=== PATIENT | female | born 1965 | race Caucasian/White ===

== ENCOUNTER → 2019-02-11 | Outpatient (CLI) | payer MEDICAID, SELFPAY ==
[2019-02-11 09:41] LABS: ALB/GLOB Ratio 0.7 RATIO (0.9-2.4); AST(SGOT) 16 U/L (15-37); Alanine Aminotransfer ALT/SGPT 23 U/L (13-56); Alkaline Phosphatase 66 U/L (45-117); Anion Gap 5 (5-15); BUN 28 mg/dL (7-18); BUN/Creat Ratio 21.5 RATIO (10-20); Calcium,Total 8.5 mg/dL (8.5-10.1); Chloride 108 mmol/L (98-107); Cholesterol 128 mg/dL (200); EST Glomerular Filtration Rate 45 mL/min (>60); Est Glom Filt Rate - Afr Amer 55 mL/min (>60); Globulin 4.1 g/dL (2.2-4.2); Glucose 88 mg/dL (74-106); High Density Lipoprotein 52 mg/dL; Potassium 4.1 mmol/L (3.5-5.1); Protein, Total 7.1 g/dL (6.4-8.2); Sodium Level 142 mmol/L (136-145); Triglycerides 70 mg/dL; Very Low Density Lipoprotein 14 mg/dL (5-40)
== END | disposition home or self-care (01) ==
LOC: LAB 08:36
PROVIDERS: Family Provider Family Medicine; PCP Family Medicine; Referring Provider Family Medicine; Visit Provider Family Medicine
DX: I10 Essential (primary) hypertension (principal); E78.5 Hyperlipidemia, unspecified; Z51.81 Encounter for therapeutic drug level monitoring
CPT/HCPCS: 36415; 80053; 80061

== ENCOUNTER → 2020-07-13 | Outpatient (CLI) ==
[2020-07-13 08:26] LABS: Absolute Lymphocyte Count 2.05 X10^3/uL (0.83-4.51); Absolute Neutrophil Count 3.7 X10^3/uL (2.0-7.7); Basophil# 0.07 X10^3/uL; Basophil% 1.1 % (0-1); Eosinophil# 0.23 X10^3/uL; Eosinophils% 3.5 % (0-5); Hematocrit 44.4 % (37-47); Hemoglobin 13.5 g/dL (12.0-15.0); Lymphocyte # 2.05 X10^3/ul (4.0); Lymphocyte % 31.2 % (19-41); Mean Corp Hgb Conc 30.4 g/dL (32-36); Mean Corpuscular Hgb 26.9 pg (27.0-32.0); Mean Corpuscular Volume 88.4 fL (81-99); Mean Platelet Vol. 10.3 fl (6.2-12.0); Monocyte# 0.52 X10^3/uL; Monocyte% 7.9 % (0-10); NRBC Flagged by Analyzer 0 % (0-5); Neutrophil % 56.1 % (47-70); Platelet Count 283 K/mm3 (150-450); RBC Distribution Width CV 13.6 % (11.6-14.6); RBC Distribution Width SD 44.1 fl (35.1-43.9); Red Blood Count 5.02 M/mm3 (4.2-5.4); White Blood Count 6.6 K/mm3 (4.4-11.0)
[2020-07-13 08:54] LABS: ALB/GLOB Ratio 0.7 RATIO (0.9-2.4); AST(SGOT) 15 U/L (15-37); Alanine Aminotransfer ALT/SGPT 22 U/L (13-56); Albumin, Serum 3.2 g/dL (3.2-5.0); Alkaline Phosphatase 74 U/L (45-117); Anion Gap 1 (5-15); BUN 33 mg/dL (7-18); BUN/Creat Ratio 22.4 RATIO (10-20); Calcium,Total 8.6 mg/dL (8.5-10.1); Chloride 110 mmol/L (98-107); Cholesterol 144 mg/dL (200); Creatinine, Serum 1.47 mg/dL (0.55-1.02); EST Glomerular Filtration Rate 39 mL/min (>60); Est Glom Filt Rate - Afr Amer 47 mL/min (>60); Globulin 4.3 g/dL (2.2-4.2); Glucose 90 mg/dL (74-106); High Density Lipoprotein 55 mg/dL; Potassium 4.3 mmol/L (3.5-5.1); Protein, Total 7.5 g/dL (6.4-8.2); Sodium Level 141 mmol/L (136-145); Triglycerides 82 mg/dL; Very Low Density Lipoprotein 16 mg/dL (5-40)
== END | disposition home or self-care (01) ==
PROVIDERS: Family Medicine
DX: I10 Essential (primary) hypertension (principal); E78.5 Hyperlipidemia, unspecified; Z86.73 Personal history of transient ischemic attack (TIA), and cerebral infarction without residual deficits; Z51.81 Encounter for therapeutic drug level monitoring
CPT/HCPCS: 36415; 80053; 80061; 85025

== ENCOUNTER → 2021-01-18 09:01 | Outpatient (CLI) | payer MEDICAID, SELFPAY ==
[2021-01-18 10:16] LABS: Anion Gap 6 (5-15); BUN 27 mg/dL (7-18); BUN/Creat Ratio 19.3 RATIO (10-20); Calcium,Total 8.6 mg/dL (8.5-10.1); Chloride 105 mmol/L (98-107); EST Glomerular Filtration Rate 41 mL/min (>60); Est Glom Filt Rate - Afr Amer 50 mL/min (>60); Glucose 111 mg/dL (74-106); Potassium 3.9 mmol/L (3.5-5.1); Sodium Level 138 mmol/L (136-145)
== END ==
PROVIDERS: PCP Family Medicine; Referring Provider Family Medicine; Visit Provider Family Medicine
DX: N18.32 Chronic kidney disease, stage 3b (principal); Z51.81 Encounter for therapeutic drug level monitoring
CPT/HCPCS: 36415; 80048

== ENCOUNTER → 2021-07-19 09:34 | Outpatient (CLI) | payer MEDICAID, SELFPAY ==
[2021-07-19 09:56] LABS: Absolute Lymphocyte Count 1.47 X10^3/uL (0.83-4.51); Absolute Neutrophil Count 3.4 X10^3/uL (2.0-7.7); Basophil# 0.08 X10^3/uL; Basophil% 1.4 % (0-1); Eosinophil# 0.17 X10^3/uL; Hematocrit 44.3 % (37-47); Hemoglobin 14.5 g/dL (12.0-15.0); Lymphocyte # 1.47 X10^3/ul (0.83-4.51); Mean Corp Hgb Conc 32.7 g/dL (32-36); Mean Corpuscular Hgb 27.8 pg (27.0-32.0); Mean Platelet Vol. 9.3 fl (6.2-12.0); Monocyte# 0.49 X10^3/uL; Monocyte% 8.7 % (0-10); NRBC Flagged by Analyzer 0 % (0-5); Neutrophil # 3.43 X10^3/uL (2.7-7.7); Neutrophil % 60.7 % (47-70); Platelet Count 294 K/mm3 (150-450); RBC Distribution Width CV 13.6 % (11.6-14.6); RBC Distribution Width SD 42.4 fl (35.1-43.9); Red Blood Count 5.21 M/mm3 (4.2-5.4); White Blood Count 5.7 K/mm3 (4.4-11.0)
[2021-07-19 10:29] LABS: ALB/GLOB Ratio 0.7 RATIO (0.9-2.4); AST(SGOT) 16 U/L (15-37); Alanine Aminotransfer ALT/SGPT 22 U/L (13-56); Albumin, Serum 3.1 g/dL (3.2-5.0); Alkaline Phosphatase 86 U/L (45-117); Anion Gap 5 (5-15); BUN 26 mg/dL (7-18); BUN/Creat Ratio 19.1 RATIO (10-20); Calcium,Total 8.8 mg/dL (8.5-10.1); Chloride 104 mmol/L (98-107); Cholesterol 142 mg/dL (200); Creatinine, Serum 1.36 mg/dL (0.55-1.02); EST Glomerular Filtration Rate 43 mL/min (>60); Est Glom Filt Rate - Afr Amer 51 mL/min (>60); Globulin 4.6 g/dL (2.2-4.2); Glucose 93 mg/dL (74-106); High Density Lipoprotein 54 mg/dL; Protein, Total 7.7 g/dL (6.4-8.2); Sodium Level 139 mmol/L (136-145); Triglycerides 89 mg/dL; Very Low Density Lipoprotein 18 mg/dL (5-40)
== END ==
PROVIDERS: PCP Family Medicine; Referring Provider Family Medicine; Visit Provider Family Medicine
DX: Z00.00 Encounter for general adult medical examination without abnormal findings (principal); E78.5 Hyperlipidemia, unspecified; I12.9 Hypertensive chronic kidney disease with stage 1 through stage 4 chronic kidney disease, or unspecified chronic kidney disease; N18.32 Chronic kidney disease, stage 3b
CPT/HCPCS: 36415; 80053; 80061; 85025

== ENCOUNTER → 2023-01-09 | Outpatient (CLI) | payer MEDICAID, SELFPAY ==
[2023-01-09 09:49] LABS: Absolute Lymphocyte Count 1.47 X10^3/uL (0.83-4.51); Absolute Neutrophil Count 4.6 X10^3/uL (2.0-7.7); Basophil# 0.07 X10^3/uL; Eosinophil# 0.25 X10^3/uL; Eosinophils% 3.5 % (0-5); Hematocrit 42.3 % (37-47); Hemoglobin 13.3 g/dL (12.0-15.0); Lymphocyte # 1.47 X10^3/ul (0.83-4.51); Lymphocyte % 20.8 % (19-41); Mean Corp Hgb Conc 31.4 g/dL (32-36); Mean Corpuscular Hgb 27.4 pg (27.0-32.0); Mean Platelet Vol. 10.2 fl (6.2-12.0); Monocyte# 0.61 X10^3/uL; Monocyte% 8.6 % (0-10); NRBC Flagged by Analyzer 0 % (0-5); Neutrophil # 4.64 X10^3/uL (2.7-7.7); Neutrophil % 65.7 % (47-70); Platelet Count 317 K/mm3 (150-450); RBC Distribution Width CV 13.6 % (11.6-14.6); RBC Distribution Width SD 43.7 fl (35.1-43.9); Red Blood Count 4.86 M/mm3 (4.2-5.4); White Blood Count 7.1 K/mm3 (4.4-11.0)
[2023-01-09 10:24] LABS: ALB/GLOB Ratio 0.6 RATIO (0.9-2.4); AST(SGOT) 15 U/L (15-37); Alanine Aminotransfer ALT/SGPT 16 U/L (13-56); Albumin, Serum 2.9 g/dL (3.2-5.0); Alkaline Phosphatase 93 U/L (45-117); Anion Gap 4 (5-15); BUN 27 mg/dL (7-18); BUN/Creat Ratio 20.5 RATIO (10-20); Calcium,Total 8.8 mg/dL (8.5-10.1); Chloride 109 mmol/L (98-107); Cholesterol 138 mg/dL (200); Creatinine, Serum 1.32 mg/dL (0.55-1.02); EST Glomerular Filtration Rate 44 mL/min (>60); Est Glom Filt Rate - Afr Amer 53 mL/min (>60); Globulin 4.7 g/dL (2.2-4.2); Glucose 90 mg/dL (74-106); High Density Lipoprotein 51 mg/dL; Protein, Total 7.6 g/dL (6.4-8.2); Sodium Level 138 mmol/L (136-145); Triglycerides 81 mg/dL; Very Low Density Lipoprotein 16 mg/dL (5-40)
== END | disposition home or self-care (01) ==
LOC: LAB 08:53
PROVIDERS: PCP Family Medicine; Referring Provider Family Medicine; Visit Provider Family Medicine
DX: I10 Essential (primary) hypertension (principal); E78.5 Hyperlipidemia, unspecified; Z51.81 Encounter for therapeutic drug level monitoring
CPT/HCPCS: 36415; 80053; 80061; 85025

== ENCOUNTER → 2023-07-19 | Outpatient (CLI) | payer MEDICAID, SELFPAY ==
[2023-07-19 18:24] LABS: ALB/GLOB Ratio 0.7 RATIO (0.9-2.4); AST(SGOT) 22 U/L (15-37); Alanine Aminotransfer ALT/SGPT 22 U/L (13-56); Albumin, Serum 3.1 g/dL (3.2-5.0); Alkaline Phosphatase 88 U/L (45-117); Anion Gap -3 (5-15); BUN 24 mg/dL (7-18); BUN/Creat Ratio 20.2 RATIO (10-20); Calcium,Total 8.5 mg/dL (8.5-10.1); Chloride 110 mmol/L (98-107); Creatinine, Serum 1.19 mg/dL (0.55-1.02); EST Glomerular Filtration Rate 49 mL/min (>60); Est Glom Filt Rate - Afr Amer 60 mL/min (>60); Globulin 4.4 g/dL (2.2-4.2); Glucose 97 mg/dL (74-106); Potassium 4.4 mmol/L (3.5-5.1); Protein, Total 7.5 g/dL (6.4-8.2); Sodium Level 134 mmol/L (136-145)
== END | disposition home or self-care (01) ==
LOC: BFHLAB 14:21
PROVIDERS: PCP Family Medicine; Referring Provider Family Medicine; Visit Provider Family Medicine
DX: Z51.81 Encounter for therapeutic drug level monitoring (principal)
CPT/HCPCS: 36415; 80053

== ENCOUNTER → 2024-01-19 | Outpatient (CLI) | payer MEDICAID, SELFPAY ==
[2024-01-19 17:41] LABS: Absolute Lymphocyte Count 1.04 X10^3/uL (0.83-4.51); Absolute Neutrophil Count 8.2 X10^3/uL (2.0-7.7); Basophil# 0.05 X10^3/uL; Basophil% 0.5 % (0-1); Eosinophil# 0.09 X10^3/uL; Eosinophils% 0.9 % (0-5); Hematocrit 41.4 % (37-47); Lymphocyte # 1.04 X10^3/ul (0.83-4.51); Lymphocyte % 10.5 % (19-41); Mean Corp Hgb Conc 31.4 g/dL (32-36); Mean Corpuscular Hgb 26.4 pg (27.0-32.0); Mean Platelet Vol. 10.1 fl (6.2-12.0); Monocyte# 0.51 X10^3/uL; Monocyte% 5.1 % (0-10); NRBC Flagged by Analyzer 0 % (0-5); Neutrophil # 8.23 X10^3/uL (2.7-7.7); Neutrophil % 82.7 % (47-70); Platelet Count 461 K/mm3 (150-450); RBC Distribution Width CV 13.2 % (11.6-14.6); RBC Distribution Width SD 40.4 fl (35.1-43.9); Red Blood Count 4.93 M/mm3 (4.2-5.4)
[2024-01-19 18:15] LABS: ALB/GLOB Ratio 0.5 RATIO (0.9-2.4); AST(SGOT) 20 U/L (15-37); Alanine Aminotransfer ALT/SGPT 17 U/L (13-56); Albumin, Serum 2.6 g/dL (3.2-5.0); Alkaline Phosphatase 90 U/L (45-117); Anion Gap 5 (5-15); BUN 24 mg/dL (7-18); BUN/Creat Ratio 18.5 RATIO (10-20); Calcium,Total 8.7 mg/dL (8.5-10.1); Chloride 105 mmol/L (98-107); EST Glomerular Filtration Rate 44 mL/min (>60); Est Glom Filt Rate - Afr Amer 54 mL/min (>60); Globulin 5.4 g/dL (2.2-4.2); Glucose 102 mg/dL (74-106); Potassium 4.3 mmol/L (3.5-5.1); Sodium Level 136 mmol/L (136-145); Thyroid Stim Hormone (TSH) 1.71 uIU/mL (0.358-3.74)
== END | disposition home or self-care (01) ==
LOC: BFHLAB 14:22
PROVIDERS: PCP Family Medicine; Visit Provider Family Medicine
DX: Z00.00 Encounter for general adult medical examination without abnormal findings (principal); I10 Essential (primary) hypertension; Z51.81 Encounter for therapeutic drug level monitoring
CPT/HCPCS: 36415; 80053; 84443; 85025

== ENCOUNTER → 2025-01-22 | Outpatient (CLI) | payer MEDICAID, SELFPAY ==
[2025-01-22 18:06] LABS: Absolute Lymphocyte Count 1.58 X10^3/uL (0.83-4.51); Absolute Neutrophil Count 6.1 X10^3/uL (2.0-7.7); Basophil# 0.07 X10^3/uL; Basophil% 0.8 % (0-1); Eosinophil# 0.13 X10^3/uL; Eosinophils% 1.5 % (0-5); Hematocrit 25.7 % (37-47); Hemoglobin 7.6 g/dL (12.0-15.0); Lymphocyte # 1.58 X10^3/ul (0.83-4.51); Lymphocyte % 18.6 % (19-41); Mean Corp Hgb Conc 29.6 g/dL (32-36); Mean Corpuscular Hgb 21.2 pg (27.0-32.0); Mean Corpuscular Volume 71.8 fL (81-99); Mean Platelet Vol. 10.1 fl (6.2-12.0); Monocyte# 0.61 X10^3/uL; Monocyte% 7.2 % (0-10); NRBC Flagged by Analyzer 0 % (0-5); Neutrophil # 6.07 X10^3/uL (2.7-7.7); Neutrophil % 71.5 % (47-70); Platelet Count 577 K/mm3 (150-450); RBC Distribution Width CV 16.8 % (11.6-14.6); RBC Distribution Width SD 43.3 fl (35.1-43.9); Red Blood Count 3.58 M/mm3 (4.2-5.4); White Blood Count 8.5 K/mm3 (4.4-11.0)
[2025-01-22 18:58] LABS: ALB/GLOB Ratio 0.8 RATIO (0.9-2.4); AST(SGOT) 14 U/L (<=31); Alanine Aminotransfer ALT/SGPT 10 U/L (<=34); Albumin, Serum 3.4 g/dL (3.4-4.8); Alkaline Phosphatase 84 U/L (35-104); Anion Gap 12 (5-15); BUN 28 mg/dL (4-19); BUN/Creat Ratio 18.3 RATIO (10-20); Calcium,Total 8.7 mg/dL (7.6-11.0); Carbon Dioxide 24.5 mmol/L (21.0-32.0); Chloride 103 mmol/L (98-108); Creatinine, Serum 1.54 mg/dL (0.70-1.20); EST Glomerular Filtration Rate 38 (>60); Globulin 4.3 g/dL (2.2-4.2); Glucose 101 mg/dL (70-99); Potassium 4.1 mmol/L (3.3-5.1); Protein, Total 7.7 g/dL (5.9-8.4); Sodium Level 140 mmol/L (133-145); Total Bilirubin 0.49 mg/dL (0.00-1.30)
[2025-01-24 05:07] LABS: Prealbumin 14 mg/dL (10-36)
== END | disposition home or self-care (01) ==
LOC: BFHLAB 16:09
PROVIDERS: PCP Family Medicine; Visit Provider Family Medicine
DX: Z00.00 Encounter for general adult medical examination without abnormal findings (principal); L89.313 Pressure ulcer of right buttock, stage 3; I10 Essential (primary) hypertension; Z51.81 Encounter for therapeutic drug level monitoring
CPT/HCPCS: 36415; 80053; 84134; 84443; 85025

== ENCOUNTER 2025-05-21 09:17 | Inpatient (IN) | payer MEDICAID, SELFPAY ==
[2025-05-21] VITALS (63 sets, daily range): BP systolic 79–144; BP diastolic 43–121; PULSE 66–120; RESP 16–41; TEMP 36.2–37.1; O2SAT 16–100; BMI 30.7; BMI 29.5
--- NOTE | 2025-05-21 09:20 | RAD_ITS ---
PROCEDURE: CHEST 1 VIEW (PORTABLE) 05/21/2025 REASON FOR EXAM: RESPIRATORY DISTRESS/FAILURE TECHNIQUE: Frontal view of the chest. COMPARISON: None FINDINGS: Hardware: EKG leads overlie the chest Heart: The heart size is normal. Lungs: Lungs are underexpanded with chronic interstitial changes and superimposed opacifications in both lung cox likely pulmonary vascular congestion/CHF though a diffuse inflammatory process could have a similar appearance. No demonstrated effusions. Bones: Degenerative bony changes noted in the thoracic spine and shoulders Other: RAD/Chest 1 View (Portable) IMPRESSION: Underexpanded lungs with superimposed airspace opacifications in both lung fiel ds suggesting either pulmonary vascular congestion/CHF or a diffuse inflammatory process. Follow-up recommended to ens ure complete resolution Reading Location: [id number]
--- NOTE | 2025-05-21 09:21 | EKG12_ITS ---
Test Reason : SOB Blood Pressure : */* mmHG Vent. Rate : 104 BPM Atrial Rate : * BPM P-R Int : * ms QRS Dur : 74 ms QT Int : 326 ms P-R-T Axes : * 0 165 degrees QTcB Int : 428 ms Atrial fibrillation with rapid ventricular response ST & T wave abnormality, consider anterolateral ischemia Abnormal ECG Confirmed by RADHA GOMEZ ([id number]), telegraph editor ROB MUNIZ ([id number]) on 05/22/2025 1:07:33 PM Referred By: Confirmed By: RADHA GOMEZ
[2025-05-21 09:34] LABS: Allen Test Positive; Base Excess -7 mmol/L (-2 to +2); FI02 100.0; PO2 79 mmHG (75-100); SITE L Radial; SO2 97 % (95-99)
--- NOTE | 2025-05-21 09:34 | EDS_ITS ---
HPI History of Present Illness Chief Complaint: Alt LOC [facility] Medical History (Updated 05/21/25 @ 09:25 by Peyton Hedrick) Hypertension CVA (cerebral vascular accident) Allergy/AdvReac Type Severity Reaction Status Date / Time No Known Allergies Allergy Verified 05/21/25 09:27 Social History Smoking Status: Never smoker EXAM Physical Exam Const Vital Signs: 05/21/25 09:20 05/21/25 09:29 05/21/25 09:33 Temperature 97.1 F L Temperature Source Axillary Pulse Rate 101 H Respiratory Rate 34 H Respiratory Effort Labored Respiratory Pattern Tachypnea Blood Pressure 144/121 H Blood Pressure Mean 128 Pulse Ox 97 100 Oxygen Delivery Method Non-Rebreather Non-Rebreather Oxygen Flow Rate (L/min) 15 15 [facility] ABG Data Attestation: I personally reviewed and interpreted this ABG as follows: Interpretation: ABG reveals a alkalemia with a pCO2 of 22.8, pO2 of 79.4 on nonrebreather mask, bicarb of 16.4 with a base excess of -7.4. Saturation is 96.7%. This is a mixed acid-base picture. This reveals a metabolic acidosis as well as respiratory alkalosis and increased AA gradient. Discharge Plan Triage Chief Complaint: Alt LOC ED Provider: Dar Hunt Dx/Rx/DC Orders Primary Care Provider: Ann Marie Duran Referrals: Ann Marie Duran DO [Primary Care Provider] - Print Language: Danish
--- NOTE | 2025-05-21 09:34 | EX.ED.CRITCA ---
HPI History of Present Illness Chief Complaint: Alt LOC Detail of Chief Complaint: Altered level conscious initially called in as a stroke team, this was can Informant: family Onset/Context/Timing Onset: Today (Last known at her baseline last evening.) Context: Sudden Onset Timing: Continuous Quality: Respiratory distress, tachycardia, nonverbal Location: Presents from home by EMS. Blood sugar was 155. Current Severity: Severe Maximum Severity: Severe Worsened by: Suspect patient is profoundly anemic Relieved by: Nothing Narrative Narrative: Patient is a 59-year-old female. 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 She requires assistance to navigate and eat. According to the family member she does not have a history of atrial fibrillation. There is no other history available. Paramedics states her pulse ox was 84% on nonrebreather. When she arrived her pulse ox was 90%. She is in obvious respiratory distress. Unable to obtain history. Prior similar symptoms: No PFSH PFSH Medical History Hypertension CVA (cerebral vascular accident) Home Medications ?Medication ?Instructions ?Recorded ?Last Taken ?Type amlodipine 10 mg tablet 10 mg PO DAILY 05/21/25 05/20/25 History carvedilol 3.125 mg tablet 3.125 mg PO BID 05/21/25 05/20/25 History hydralazine 100 mg tablet 100 mg PO TID 05/21/25 05/20/25 History simvastatin 20 mg tablet 20 mg PO DAILY 05/21/25 05/20/25 History Allergy/AdvReac Type Severity Reaction Status Date / Time No Known Allergies Allergy Verified 05/21/25 09:27 Social History Smoking Status: Never smoker ROS ROS ED Review of Systems ROS Unobtainable: due to mental status EXAM Physical Exam Const Vital Signs: 05/21/25 09:20 05/21/25 09:23 05/21/25 09:29 Temperature 97.1 F L 97.4 F L Temperature Source Axillary Core Pulse Rate 101 H 120 H Respiratory Rate 34 H 41 H Respiratory Effort Respiratory Pattern Blood Pressure 144/121 H 96/70 Blood Pressure Mean 128 78 Pulse Ox 97 100 100 Oxygen Delivery Method Non-Rebreather Non-Rebreather Non-Rebreather Oxygen Flow Rate (L/min) 15 12 12 05/21/25 09:33 05/21/25 09:34 05/21/25 10:23 Temperature 97.9 F Temperature Source Oral Pulse Rate 107 H Respiratory Rate 27 H Respiratory Effort Labored Respiratory Pattern Tachypnea Blood Pressure 92/63 98/62 Blood Pressure Mean 72 74 Pulse Ox 90 Oxygen Delivery Method Non-Rebreather Oxygen Flow Rate (L/min) 12 05/21/25 10:30 05/21/25 10:55 Temperature 97.9 F Temperature Source Core Pulse Rate 104 H 104 H Respiratory Rate 37 H 27 H Respiratory Effort Respiratory Pattern Blood Pressure 98/72 98/62 Blood Pressure Mean 80 74 Pulse Ox 90 94 Oxygen Delivery Method Non-Rebreather Non-Rebreather Oxygen Flow Rate (L/min) 12 15 Positive well nourished, well developed and obese Constitutional Narrative: Patient is in obvious respiratory distress. She is very pale. General Appearance ED: well developed and pallor Nutritional Appearance: obese HEENT HEENT Narrative: On the nonrebreather Uday is no evidence of cyanosis. normocephalic and atraumatic Eyes PERRL and EOMs intact bilaterally General Eye ED: Yes pale conjunctiva; Negative for scleral icterus Neck full ROM, no lymphadenopathy, supple and No no JVD Neck Narrative: JVD at 60 degrees. Cardio no murmurs Cardio Narrative: Monitor appears to be irregular regular consistent with atrial fibrillation. Rate: tachycardic Rhythm: abnormal rhythm GI non-tender, non-distended and no masses Extremity Extremity Narrative: Patient has edema of her lower extremities. For member states she has been sitting a lot. Family ember informing that she lies flat in her bed. There is no respiratory distress i.e. orthopnea or and she has not had any PND. Neuro No oriented x3 Neuro Narrative: Patient's mental status is depressed. She makes nonverbal sounds to noxious stimuli. She withdraws on the left side. She has contracture on the right due to prior stroke. She opens her eyes to verbal. Sensorium / Orientation: Negative for alert Gait (Neuro): Negative for normal gait Psych Psych Narrative: Unable to determine Skin Skin Narrative: There is no erythema to creases of the palm. Her lips appear pale as well. General Skin Exam: pallor MDM MDM MDM Narrative Medical decision making narrative: Patient respiratory distress with A-fib but no history of apnea to rule out cardiac ischemia, CHF, pneumonia, suspect she is anemic and profoundly anemic. Will obtain appropriate baseline blood work. H&H assess white count as well as hemoglobin. Comprehensive metabolic panel assess for any endorgan dysfunction. Lactate because of concern for poor perfusion. Lab Data Attestation: I reviewed the patient's lab results. Lab results narrative: CBC is remarkable white count of 14.7 with H&H of 3.6 and 14.4 with an MCV of 64.6. Neda of this year her hemoglobin was 7.6. In December of last year hemoglobin was greater than 13. She had normal indices last year she was microcytic last hemoglobin assessed December 2024. Troponins elevated at 35. Competence of metabolic panel reveals a BUN of 56 with a creatinine of 23.5 with a BUN to creatinine ratio approximate 24-1. This is worse than baseline. Glucose is slightly elevated 120. CO2 is 14.9 with an anion gap of 21. Labs: Laboratory Results - last 24 hr 05/21/25 05/21/25 09:29 10:15 WBC 14.7 H RBC 2.23 L Hgb 3.6 L* Hct 14.4 L MCV 64.6 L MCH 16.1 L MCHC 25.0 L RDW Std Deviation 46.6 H RDW Coeff of Federico 21.1 H Plt Count 426 MPV 10.2 Immature Gran % (Auto) 0.900 Neut % (Auto) 88.4 H Lymph % (Auto) 6.5 L [place] % (Auto) 4.1 Eos % (Auto) 0.0 Baso % (Auto) 0.1 Absolute Neuts (auto) 13.0 H Absolute Lymphs (auto) 0.95 Nucleated RBC % 1.0 Differential Comment SCANNED Hypochromasia 3+ Anisocytosis 2+ Sodium 140 Potassium 5.8 H Chloride 105 Carbon Dioxide 14.9 L Anion Gap 21 H BUN 56 H Creatinine 2.35 H Estim Creat Clear Calc 26.86 L Est GFR (MDRD) Non-Af 23 L BUN/Creatinine Ratio 23.8 H Glucose 120 H Lactic Acid 6.7 H* Calcium 8.3 Total Bilirubin 1.05 AST 20 ALT 16 Alkaline Phosphatase 74 Troponin T High Sens 35 H Total Protein 6.7 Albumin 3.3 L Globulin 3.4 Albumin/Globulin Ratio 1.0 Blood Type A POSITIVE Antibody Screen NEGATIVE Crossmatch See Detail Lactate is elevated 6.7. Patient at this time has undifferentiated shock. Based on the medication list 1 would not expect any of the meds she is presently on causing the lactic acidosis. This is probably due to hypoxia. ABG Data Attestation: I personally reviewed and interpreted this ABG as follows: Interpretation: ABG reveals a alkalemia with a pCO2 of 22.8, pO2 of 79.4 on nonrebreather mask, bicarb of 16.4 with a base excess of -7.4. Saturation is 96.7%. This is a mixed acid-base picture. This reveals a metabolic acidosis as well as respiratory alkalosis and increased AA gradient. ABG results: ABG 05/21/25 09:30 Specimen Type ART Sample Site L Radial pH 7.46 H Bicarbonate Actual 16.4 L Total CO2 17 Base Excess -7 L O2 Saturation 97 O2 % 100.0 ABG pCO2 22.8 L ABG pO2 79 Alcon Test Positive O2 Delivery Device NRB Vent Mode Not entered Radiography Chest X-Ray - ED: 1 View and Read by ED Physician (Suboptimal single view film. This very volume is limited. Patient has fluffy infiltrates bilaterally which may represent CHF. This would not be unexpected since patient probably has high-output failure due to her anemia and A-fib with RVR.) Diagnostic Testing: Clinical Impression(s) from Imaging Studies Chest X-Ray 05/21/25 09:20 IMPRESSION: Underexpanded lungs with superimposed airspace opacifications in both lung cox suggesting either pulmonary vascular congestion/CHF or a diffuse inflammatory process. Follow-up recommended to ensure complete resolution Reading Location: [facility] EKG Initial EKG: Attestation: I personally reviewed and interpreted this EKG as follows: Interpretation: Atrial Fibrillation (Rate is 104. QRS duration 74 ms. QT duration 3 and 26 ms. [place] is normal. There is no ossific changes noted which may be due to ischemia versus artifact. Most likely this represents ischemia.) Prior: Changed Management Discussion w/another healthcare provider: Hospitalist (Case discussed with Dr. Matt Acevedo. Full admit ICU.) Treatment and Re-Evaluation Narrative: In light of patient's H&H and indices iron studies were obtained prior to transfusion. 4 units of blood was ordered. Repeat blood pressure at 0934 was noted to be 92/63. When I became aware of this fluid bolus was ordered. Since there is concern she may be in heart failure she received only a 500 cc bolus. In light of the chest x-ray read findings bolus was stopped after 300 cc. Patient will require Lasix after each unit of blood. She also needs a stat echo. The secondary was asked to page hospitalist for admission. Critical Care Time Critical Care Time: Yes Critical care time (excluding procedures): 30-74 minutes (32), Including time spent: (History, physical, documentation, independent or potation of laboratory results, images, treatment for undifferentiated shock, DNR discussion), Discussing w/Patient &/or Family/Boiler Attendant, Discussing w/Consultants and Arranging Admission or Transfer Discharge Plan Dx/Rx/DC Orders Clinical Impression: Shock, Signs and symptoms of anemia, Symptomatic anemia, New onset a-fib, Acidosis, lactic, Acute hyperkalemia, Microcytic anemia, Acute on chronic kidney failure, Elevated troponin, Myocardial ischemia determined by electrocardiography, Acute hypoxemic respiratory failure Disposition Disposition: Acute Care [facility]
[2025-05-21 09:46] LABS: Hematocrit 14.4 % (37-47); Immature Granulocytes Count 0.130 X10^3/uL (0.0-0.0); Mean Corp Hgb Conc 25.0 g/dL (32-36); Mean Corpuscular Volume 64.6 fL (81-99); Mean Platelet Vol. 10.2 fl (6.2-12.0); NRBC Flagged by Analyzer 1.0 % (0-5); POSITIVE COUNT YES; POSITIVE MORPHOLOGY YES; Platelet Count 426 K/mm3 (150-450); RBC Distribution Width CV 21.1 % (11.6-14.6); RBC Distribution Width SD 46.6 fl (35.1-43.9); Red Blood Count 2.23 M/mm3 (4.2-5.4); White Blood Count 14.7 K/mm3 (4.4-11.0)
[2025-05-21 09:48] LABS: Differential Indicated SCAN CRITERIA MET; Hemoglobin 3.6 g/dL (12.0-15.0)
[2025-05-21 10:08] LABS: Troponin T High Sensitivity 35 ng/L (<=14)
[2025-05-21 10:10] LABS: AST(SGOT) 20 U/L (<=31); Alanine Aminotransfer ALT/SGPT 16 U/L (<=34); Albumin, Serum 3.3 g/dL (3.4-4.8); Alkaline Phosphatase 74 U/L (35-104); Anion Gap 21 (5-15); BUN 56 mg/dL (4-19); BUN/Creat Ratio 23.8 RATIO (10-20); Calcium,Total 8.3 mg/dL (7.6-11.0); Carbon Dioxide 14.9 mmol/L (21.0-32.0); Chloride 105 mmol/L (98-108); Estimated Creatinine Clearance 26.86 ml/min (50-250); Globulin 3.4 g/dL (2.2-4.2); Glucose 120 mg/dL (70-99); Potassium 5.8 mmol/L (3.3-5.1)
[2025-05-21 10:19] LABS: Anisocytosis 2+; Differential Comment SCANNED; Hypochromasia 3+
[2025-05-21] MEDS: 0.9% Normal Saline (500mL Bag) 500 ML 1000 ML IV (10:31)
--- NOTE | 2025-05-21 10:51 | ECHOCS_ITS ---
Reason For Study Reason For Study: CHF Procedure This was a 2D Doppler, Color Flow transthoracic echocardiogram. The study was technically difficult. Contrast injection was performed. Exam performed portable in ED. Left Ventricle Normal LV size. Mild concentric left ventricular hypertrophy. Apical hypertrophic cardiomyopathy present. Left ventricular systolic function is normal. The left ventricular ejection fraction is 60 %. Right Ventricle Normal RV size. Normal systolic function. Atria The left atrium is moderately enlarged. Normal right atrium. Mitral Valve Normal mitral valve. Mild (1+) anteriorly directed mitral valve insufficiency. Tricuspid Valve Normal tricuspid valve. Aortic Valve Normal aortic valve. Trisinus/trileaflet aortic valve. Pulmonic Valve Normal pulmonic valve. Great Vessels Normal aortic root. The pulmonary artery is normal size. Inferior vena cava collapse with respiration. Pericardium/Pleural No pericardial effusion. Medication Diluted definity 2.5ml given slow IV push to enhance endocardial definition. MMode/2D Measurements & Calculations LVIDd: 4.7 cm IVSd: 1.2 cm LVOT diam: 2.0 cm LVIDs: 3.3 cm LVPWd: 1.4 cm FS: 29.5 % LVOT area: 3.1 cm2 LAV(MOD-sp2): 70.2 ml LA dimension(2D): 5.0 cm Doppler Measurements & Calculations Ao V2 max: 148.3 cm/sec LV V1 max: 131.9 cm/sec SV(LVOT): 84.6 ml Ao max P.9 mmHg LV V1 max P.1 mmHg Ao V2 mean: 100.9 cm/sec LV V1 mean P.5 mmHg Ao mean P.6 mmHg LV V1 mean: 86.0 cm/sec Ao V2 VTI: 24.1 cm LV V1 VTI: 27.5 cm AV (velocity ratio): 1.1 IFEANYI(I,D): 3.5 cm2 IFEANYI(V,D): 2.7 cm2 PA V2 max: 135.2 cm/sec PA V2 mean: 91.9 cm/sec ECHO/Echo Complete W/ Contrast Interpretation Summary Normal LV size. Mild concentric left ventricular hypertrophy. Left ventricular systolic function is normal. The left ventricular ejection fraction is 60 %. Apical hypertrophic cardiomyopathy present. Contrast injection was performed. Ordering Physician: Dar Hunt Referring Physician: SABRINA ROCHA Performed By: Lana Rajput RCS
[2025-05-21 11:49] LABS: Ferritin 53 ng/mL (22-378)
--- NOTE | 2025-05-21 12:03 | ED.RN ---
Per verbal order from Dr Kiki Michael to pause blood for echo to be able to use IV. Blood paused for approx 5 minutes and then resumed.
--- NOTE | 2025-05-21 12:04 | ED.RN ---
Report called to ICU.
[2025-05-21 12:17] LABS: Prothrombin Time (Protime)PT. 16.9 SECONDS (11.7-14.9)
[2025-05-21 12:25] LABS: Troponin T High Sens 2 HR 35 ng/L (<=14)
[2025-05-21 13:32] LABS: Reflex Lactate? Y
--- NOTE | 2025-05-21 13:34 | EX.PCM.CONCC ---
Assessment & Plan Assessment/Plan (1) Acute hypoxemic respiratory failure: (2) Elevated troponin: (3) Acute on chronic kidney failure: (4) New onset a-fib: (5) Shock: PLAN: Plan RECOMMENDATIONS: 1. Transfuse blood products in an attempt to establish a hemoglobin at or above 7 g/dL. 2. Obtain follow-up ABG in 1 hour. 3. Continue assist-control mode of mechanical ventilation. Wean FiO2 and PEEP as tolerated. 4. Initiate vasopressor support, if needed, to maintain mean arterial pressure at or above 65 mmHg. 5. Continue PPI therapy as ordered. 6. Await gastroenterology evaluation. 7. Start empiric antimicrobials and obtain sputum and blood cultures. IMPRESSIONS: 1. Undifferentiated shock Most likely secondary to hemorrhagic etiology in the setting of acute blood loss anemia. However, the patient does have a normal ejection fraction on echocardiogram. Therefore I cannot definitively say that the infiltrates noted on chest x-ray are related to pulmonary edema in the setting of CHF. Therefore, given the patient's current clinical status, I am going to start her empirically on antimicrobials and obtain sputum and blood cultures. The patient is going to be transfused packed red blood cells in an attempt to achieve a hemoglobin at or above 7 g/dL. PPI therapy will be continued, pending gastroenterology evaluation. If the patient remains hemodynamically unstable, Levophed will be initiated. 2. Acute on chronic kidney disease Most likely secondary to #1. Continue supportive care, including vasopressor support, if indicated. Will obtain renal ultrasound. Avoid nephrotoxic medications. 3. Acute blood loss anemia Gastroenterology consultation is pending. Continue transfusion of blood products to achieve and maintain a hemoglobin at or above 7 g/dL. Continue PPI therapy as ordered. 4. Troponin elevation/atrial fibrillation Secondary to demand ischemia in the setting of #1. Echocardiogram revealed intact, normal systolic function. Given that the patient's rate is currently controlled, we will plan to continue supportive care. 5. History of CVA with residual deficits/hypertension/hyperlipidemia Complicates care, management, recovery and prognosis. Continue supportive measures as noted above. Continue to hold home antihypertensives. TIME: 38 minutes of critical care time, independent of procedures, was spent addressing the patient's undifferentiated shock, acute on chronic kidney disease, acute blood loss anemia, review of all data and collaboration with the care team. HPI Consult Data Date of Consult: 05/21/25 HPI Narrative Reason for Consultation: Acute blood loss anemia, shock HPI Narrative: The patient is a 59-year-old female, with a history as outlined below, who presented to the emergency department on May 21 with altered mental status and hypoxemia. The patient does have a prior history of CVA with residual right-sided deficits and dysarthric speech, making it difficulty to ascertain any additional history. The patient also appears to have a history of hypertension and hyperlipidemia, but is not currently on any form of systemic anticoagulation at her baseline. On presentation to the emergency department, the patient was documented to be afebrile but was mildly tachycardic and tachypneic. The patient had borderline hemodynamics at presentation and was hypoxemic requiring a nonrebreather mask. Laboratory evaluation was notable for a white blood cell count of 15,000 with a hemoglobin of 3.6 g/dL and platelet count of 426,000. Coagulation profile revealed an INR of 1.3. Chemistry profile was notable for a potassium of 5.8, bicarbonate of 15, anion gap of 21 and creatinine of 2.35. Lactate was elevated at 6.7. Troponin was increased at 35. Chest x-ray was a poor quality with underexpanded lung cox and findings concerning for pulmonary vascular congestion. The patient did receive a small amount of IV fluid resuscitation and was ultimately ordered to receive transfusion of blood products. Gastroenterology was notified. The patient was transferred to the medical intensive care unit for further management. On arrival to the ICU, the patient was notably tachypneic and in distress from a respiratory standpoint. In addition, her hemodynamic status was quite tenuous. The patient was receiving packed red blood cells. In light of the patient's significant tachypnea and increased work of breathing in the setting of an anion gap metabolic acidosis, my concern was that the patient would be unable to compensate for her metabolic derangements. Therefore, following discussion with the patient's family, the decision was made to proceed with intubation. In light of her tenuous hemodynamic status, a central venous catheter was placed. Order for Levophed was initiated. [facility] Medical History Hypertension CVA (cerebral vascular accident) Home Medications ?Medication ?Instructions ?Recorded ?Last Taken ?Type amlodipine 10 mg tablet 10 mg PO DAILY 05/21/25 05/20/25 History carvedilol 3.125 mg tablet 3.125 mg PO BID 05/21/25 05/20/25 History hydralazine 100 mg tablet 100 mg PO TID 05/21/25 05/20/25 History simvastatin 20 mg tablet 20 mg PO DAILY 05/21/25 05/20/25 History Allergy/AdvReac Type Severity Reaction Status Date / Time No Known Allergies Allergy Verified 05/21/25 09:27 Family History unable to obtain Surgical History unable to obtain Social History Smoking Status: Never smoker ROS Review of Systems ROS Unobtainable: due to endotracheal tube Physical Exam Const Constitutional Narrative: The patient is now intubated and mechanically ventilated. General Appearance: ill appearing and patient mechanically ventilated HEENT normocephalic and head/scalp atraumatic Mouth: endotracheal tube in place and OG tube in place Eyes PERRL, EOMs intact bilaterally and conjunctivae normal Neck supple General: trachea midline Chest inspection of chest normal Resp Effort and Inspection: tachypneic and labored Auscultation: diminished lung sounds Cardio S1 normal heart sound and S2 normal heart sound Rate: tachycardic Rhythm: abnormal rhythm GI normal to inspection, nondistended, normoactive bowel sounds Extremity General Extremity: edema; Negative for clubbing Skin no rashes or lesions noted Neuro Neuro Narrative: Contracted right-sided extremities. Dysarthric speech. Lab / Micro Data 05/21/25 13:55 05/21/25 09:29 Labs: Laboratory Results - last 24 hr 05/21/25 09:29: WBC 14.7 H, RBC 2.23 L, Hgb 3.6 L*, Hct 14.4 L, MCV 64.6 L, MCH 16.1 L, MCHC 25.0 L, RDW Std Deviation 46.6 H, RDW Coeff of Federico 21.1 H, Plt Count 426, MPV 10.2, Immature Gran % (Auto) 0.900, Neut % (Auto) 88.4 H, Lymph % (Auto) 6.5 L, [place] % (Auto) 4.1, Eos % (Auto) 0.0, Baso % (Auto) 0.1, Absolute Neuts (auto) 13.0 H, Absolute Lymphs (auto) 0.95, Nucleated RBC % 1.0, Differential Comment SCANNED, Hypochromasia 3+, Anisocytosis 2+, Sodium 140, Potassium 5.8 H, Chloride 105, Carbon Dioxide 14.9 L, Anion Gap 21 H, BUN 56 H, Creatinine 2.35 H, Estim Creat Clear Calc 26.86 L, Est GFR (MDRD) Non-Af 23 L, BUN/Creatinine Ratio 23.8 H, Glucose 120 H, Lactic Acid 6.7 H*, Calcium 8.3, Total Bilirubin 1.05, AST 20, ALT 16, Alkaline Phosphatase 74, Troponin T High Sens 35 H, Total Protein 6.7, Albumin 3.3 L, Globulin 3.4, Albumin/Globulin Ratio 1.0 05/21/25 10:15: Ferritin 53, Blood Type A POSITIVE, Antibody Screen NEGATIVE, Crossmatch See Detail 05/21/25 11:45: Troponin T Hi Sens 2 Hr 35 H 05/21/25 11:55: PT 16.9 H, INR 1.3 ABG Data ABG results: ABG 05/21/25 09:30 Specimen Type ART Sample Site L Radial pH 7.46 H Bicarbonate Actual 16.4 L Total CO2 17 Base Excess -7 L O2 Saturation 97 O2 % 100.0 ABG pCO2 22.8 L ABG pO2 79 Alcon Test Positive O2 Delivery Device NRB Vent Mode Not entered Imaging Radiology Impression Chest X-Ray 05/21/25 09:20 IMPRESSION: Underexpanded lungs with superimposed airspace opacifications in both lung cox suggesting either pulmonary vascular congestion/CHF or a diffuse inflammatory process. Follow-up recommended to ensure complete resolution Reading Location: [id number] Echocardiogram 05/21/25 10:51 Interpretation Summary Normal LV size. Mild concentric left ventricular hypertrophy. Left ventricular systolic function is normal. The left ventricular ejection fraction is 60 %. Apical hypertrophic cardiomyopathy present. Contrast injection was performed. Ordering Physician: Dar Hunt Referring Physician: SABRINA ROCHA Performed By: Lana Rajput RCS Sepsis Attestation Sepsis Alert: Yes Sepsis Attestation: Agree w/Sepsis Date exam was performed: 05/21/25 Time exam was performed: 14:55 Possible Source of Sepsis: Pulmonary Sepsis Organ Dysfunction Criteria Present: SBP < 90 mmHg or MAP < 65 mmHg, Acute Respiratory Failure (New need for BiPAP/CPAP or MV), Creatinine > 2.0 mg/dL and Lactic Acid > 2 mmol/L Fluid Resuscitation Fluid resuscitation indicated?: Yes Fluid Resuscitation ordered: Lesser volume fluid bolus ordered Amount of fluid ordered: 1,000 Reason for lesser fluid bolus:: Concern for fluid overload Sepsis Note Date exam was performed: 05/21/25 Time exam was performed: 14:56 Sepsis Attestation: Sepsis re-evaluation was performed Response to fluids: Vasopressors started Charges/Coding Procedures Hospitalists Procedures: 45947 Critical Care 1st Hr
[2025-05-21] MEDS: Midazolam 2 MG/2 ML Syringe IV ×2 (13:51)
[2025-05-21] MEDS: fentaNYL drip 100 ML 5 MCG CONT INF (14:00)
--- NOTE | 2025-05-21 14:11 | RAD_ITS ---
PROCEDURE: CHEST 1 VIEW (PORTABLE) 05/21/2025 REASON FOR EXAM: POST INTUBATION TECHNIQUE: Frontal view of the chest. COMPARISON: AP chest of 05/21/2025 at approximately 0945 hours. RAD/Chest 1 View (Portable) IMPRESSION: Bilateral pulmonary airspace disease is again seen, with some areas improved in some areas worsened since the prior study, overall of similar severity, however. No pleural effusion or pneumothorax is seen. Interval placement of nasogastric tube, seen coursing of the stomach, endotrach eal tube, with tip proximally 1 cm above the iraida, and right jugular central venous catheter, with tip projecting over the distal SVC. The cardiomediastinal silhouette is stable, without evidence of cardiomegaly. Reading Location: [place] [id number]
--- NOTE | 2025-05-21 14:16 | PCM.OP.PRO2 ---
Procedures Hospitalists Procedures: [id number] Insert Emergency Airway Non-invasive Procedural Procedure Information Date of Procedure: 05/21/25 Description of procedure: Intubation Indication: Respiratory Failure Consent was obtained from: Emergent The patient was placed in the appropriate sniffing position. Preoxygenated sedation via BVM was provided for a minimum of 3 minutes. The patient had continuous cardiac as well as pulse oximetry monitoring during the procedure. Procedure sedation was provided by the administration of 4 mg of Versed and 20 mg of Etomidate. Direct laryngoscopy was then performed using a number 3 MAC blade, which revealed a grade 1 view. A 7.5 mm endotracheal tube was visualized advancing between the cords to the level of 22 cm at the lip. The stylette was then removed and discarded. Tube placement was confirmed by fogging in the tube along with equal and bilateral breath sounds. Colorimetric change was visualized on the CO2 meter. The cuff was then inflated and the tube secured using a commercially available device. A good pulse oximetry waveform was seen on the monitor throughout the procedure. A portable chest x-ray has been ordered to confirm appropriate placement. The patient tolerated the procedure well.
--- NOTE | 2025-05-21 14:19 | PCM.OP.PRO2 ---
Procedures Hospitalists Procedures: [id number] Insert Non-tunnel CV Cath Non-invasive Procedural Procedure Information Date of Procedure: 05/21/25 Description of procedure: Central Venous Catheter Indication: Hypotension Consent was obtained from: Mother A time-out was completed verifying correct patient, procedure, site, positioning, and special equipment if applicable. The patient was placed in a dependent position appropriate for central line placement based on the vein to be cannulated. The patient's right neck was prepped and draped in a sterile fashion. 1% lidocaine was used to anesthetize the surrounding skin area. A triple-lumen catheter was introduced into the right IJ using the Seldinger technique and under ultrasound guidance. The catheter was threaded smoothly over the guidewire and appropriate blood return was obtained. Each lumen of the catheter was evacuated of air and flushed with sterile saline. The catheter was then sutured in place to the skin and a sterile dressing applied. Chest x-ray to confirm appropriate positioning is pending. ULTRASOUND GUIDANCE STATEMENT (Vascular Access): I performed ultrasound image acquisition and interpretation for needle placement during the procedure. The vessel was identified and found to be free of thrombosis by compression technique. A safe point of entry was marked at the skin in an angle for axis was determined. The needle was guided by obtaining free-flowing fluid and by real-time visualization.
[2025-05-21 14:22] LABS: Hematocrit 16.0 % (37-47); Hemoglobin 4.4 g/dL (12.0-15.0); POSITIVE COUNT YES
--- NOTE | 2025-05-21 14:48 | CPS ---
Tube placement confirmed by X-ray. Pulled back to 22 from 24..
[2025-05-21 14:49] LABS: Troponin T High Sens 4 HR 32 ng/L (<=14)
--- NOTE | 2025-05-21 14:49 | US_ITS ---
PROCEDURE: KIDNEY AND BLADDER 05/21/2025 REASON FOR EXAM: RAMEZ TECHNIQUE: KIDNEY AND BLADDER COMPARISON: none FINDINGS: Right kidney measures 12 cm and left kidney measures 8.9 cm. Normal echotexture of bilateral kidneys. No hydronephrosis. 4 mm nonobstructive calculus within the left kidney. 3.1 x 3.5 cm and 3.4 x 2.9 cm cysts within the right kidney and 1.9 x 1.6 cm cyst within the left kidney. Urinary bladder contains a june catheter. US/Kidney and Bladder IMPRESSION: No hydronephrosis. 4 mm nonobstructive calculus within the left kidney. 3.1 x 3.5 cm and 3.4 x 2.9 cm cysts within the right kidney and 1.9 x 1.6 cm cyst within the left kidney. Reading Location: [facility]
[2025-05-21 14:56] LABS: Pro- Brain NATRIURETIC PEPTIDE 16388 pg/mL (<=900); Procalcitonin 0.51 ng/mL (<=0.10)
[2025-05-21] MEDS: Norepinephrine 8 MG in 0.9% Normal Saline (250mL Bag) 242 ML 9.4 MG CONT INF (15:00)
[2025-05-21] MEDS: Pantoprazole Sodium 40 MG in 0.9% Normal Saline (100mL MB+) 100 ML 300 MG IV ×2 (15:20→21:07)
[2025-05-21] MEDS: Vancomycin HCl 2,000 MG in 0.9% Normal Saline (500mL Bag) 500 ML 250 MG IV (15:24)
--- NOTE | 2025-05-21 15:26 | PCM.HP.STD ---
HPI - General General Date of Admission: 05/21/25 Date of Service: 05/21/25 Chief Complaint: altered level of consciousness. HPI Narrative NANCY DELACRUZ, is a 59 F who presents with change in mental status. This is a 59-year-old female with history of stroke presents with confusion. She presented to the emergency room and was noted to be hypotensive. She was noted to have a hemoglobin of 3.6, lactic acid of 6.7. Patient is a poor historian at this time so history is obtained through the emergency room physician as well as the patient's brother. No bleeding that he is aware of but there was concern that she was having menstrual blood in the toilet week or 2 ago. Patient a chest x-ray was concern for pulmonary vascular congestion so with the patient is lactic acid patient did not receive 30 cc/kg of IV fluid due to worsening heart failure. Patient was noted to be in atrial fibrillation with RVR. Patient requires assistance and get has around a clock care at home by family members. Patient has right-sided weakness due to prior history of stroke. Patient was subsequently admitted to the intensive care unit and patient was seen by critical care medicine and subsequently was intubated and had a central venous catheter placed. [facility] Medical History Hypertension CVA (cerebral vascular accident) Home Medications ?Medication ?Instructions ?Recorded ?Last Taken ?Type amlodipine 10 mg tablet 10 mg PO DAILY 05/21/25 05/20/25 History carvedilol 3.125 mg tablet 3.125 mg PO BID 05/21/25 05/20/25 History hydralazine 100 mg tablet 100 mg PO TID 05/21/25 05/20/25 History simvastatin 20 mg tablet 20 mg PO DAILY 05/21/25 05/20/25 History Allergy/AdvReac Type Severity Reaction Status Date / Time No Known Allergies Allergy Verified 05/21/25 09:27 Family History unable to obtain unable to obtain Surgical History unable to obtain unable to obtain Social History Smoking Status: Never smoker ROS ROS Narrative Unable to obtain due to confusion. Vital Signs Vital Signs Vital Signs: 05/21/25 09:20 05/21/25 09:23 05/21/25 09:29 Temperature 36.2 C L 36.3 C L Temperature Source Axillary Core Pulse Rate 101 H 120 H Respiratory Rate 34 H 41 H Respiratory Effort Respiratory Pattern Blood Pressure 144/121 H 96/70 Blood Pressure Mean 128 78 Blood Pressure Source Blood Pressure Position Blood Pressure Location Pulse Ox 97 100 100 Oxygen Delivery Method Non-Rebreather Non-Rebreather Non-Rebreather Oxygen Flow Rate (L/min) 15 12 12 Fraction of Inspired Oxygen (FIO2) 05/21/25 09:33 05/21/25 09:34 05/21/25 10:23 Temperature 36.6 C Temperature Source Oral Pulse Rate 107 H Respiratory Rate 27 H Respiratory Effort Labored Respiratory Pattern Tachypnea Blood Pressure 92/63 98/62 Blood Pressure Mean 72 74 Blood Pressure Source Blood Pressure Position Blood Pressure Location Pulse Ox 90 Oxygen Delivery Method Non-Rebreather Oxygen Flow Rate (L/min) 12 Fraction of Inspired Oxygen (FIO2) 05/21/25 10:30 05/21/25 10:55 05/21/25 11:00 Temperature 36.6 C Temperature Source Core Pulse Rate 104 H 104 H 105 H Respiratory Rate 37 H 27 H 25 H Respiratory Effort Respiratory Pattern Blood Pressure 98/72 98/62 92/63 Blood Pressure Mean 80 74 72 Blood Pressure Source Blood Pressure Position Blood Pressure Location Pulse Ox 90 94 93 Oxygen Delivery Method Non-Rebreather Non-Rebreather Non-Rebreather Oxygen Flow Rate (L/min) 12 15 15 Fraction of Inspired Oxygen (FIO2) 05/21/25 11:27 05/21/25 11:30 05/21/25 11:35 Temperature 36.6 C 36.5 C L Temperature Source Core Pulse Rate 105 H 107 H 106 H Respiratory Rate 25 H 24 H 23 H Respiratory Effort Respiratory Pattern Blood Pressure 92/63 95/48 L 95/48 L Blood Pressure Mean 72 63 63 Blood Pressure Source Monitor Blood Pressure Position Semi-Fowlers Blood Pressure Location Left Arm Pulse Ox 93 94 95 Oxygen Delivery Method Non-Rebreather Non-Rebreather Oxygen Flow Rate (L/min) 15 15 Fraction of Inspired Oxygen (FIO2) 05/21/25 11:50 05/21/25 12:00 05/21/25 12:50 Temperature 36.6 C 36.7 C Temperature Source Core Core Pulse Rate 101 H 103 H 100 Respiratory Rate 34 H 37 H Respiratory Effort Respiratory Pattern Blood Pressure 104/61 93/58 L 86/56 L Blood Pressure Mean 75 69 66 Blood Pressure Source Monitor Monitor Blood Pressure Position Semi-Fowlers Semi-Fowlers Blood Pressure Location Left Arm Right Forearm Pulse Ox 95 95 95 Oxygen Delivery Method Non-Rebreather Non-Rebreather Non-Rebreather Oxygen Flow Rate (L/min) 15 15 Fraction of Inspired Oxygen (FIO2) 100 05/21/25 13:50 05/21/25 13:55 05/21/25 14:05 Temperature 36.7 C Temperature Source Core Pulse Rate 93 67 Respiratory Rate 30 H 24 H Respiratory Effort Respiratory Pattern Tachypnea Blood Pressure 98/59 L Blood Pressure Mean 72 Blood Pressure Source Monitor Blood Pressure Position Supine Blood Pressure Location Right Forearm Pulse Ox 93 100 Oxygen Delivery Method Ambu-Bag Oxygen Flow Rate (L/min) Fraction of Inspired Oxygen (FIO2) 100 100 60 05/21/25 14:50 05/21/25 15:00 05/21/25 15:05 Temperature 36.6 C 36.7 C 36.7 C Temperature Source Core Core Core Pulse Rate 80 80 78 Respiratory Rate 22 H 20 H 26 H Respiratory Effort Respiratory Pattern Blood Pressure 84/64 L 79/43 L 85/61 L Blood Pressure Mean 70 55 69 Blood Pressure Source Monitor Monitor Monitor Blood Pressure Position Semi-Fowlers Semi-Fowlers Semi-Fowlers Blood Pressure Location Right Forearm Right Forearm Right Forearm Pulse Ox 100 100 100 Oxygen Delivery Method Mechanical Ventilator Mechanical Ventilator Mechanical Ventilator Oxygen Flow Rate (L/min) Fraction of Inspired Oxygen (FIO2) 60 60 60 Weight Weight: 80.5 kg Body Mass Index (BMI) 29.5 Physical Exam Narrative Patient seen and examined prior to intubation Pocus: IVC was visualized and dilated nonclassical with respirations. B-lines noted posteriorly, laterally as well as anteriorly in the lung cox. Const alert HEENT normocephalic and head/scalp atraumatic Neck no lymphadenopathy Resp Resp Narrative: Bibasilar crackles Cardio Cardio Narrative: Irregularly irregular GI normal to inspection, nondistended, normoactive bowel sounds, soft to palpation, non-tender and non-distended Extremity Extremity Narrative: Bilateral lower extremity edema 2+ edema. Neuro Sensorium / Orientation: awake, oriented to person and oriented to place; Negative for oriented to time Results Lab / Micro Data Attestation: I reviewed the patient's lab results. 05/21/25 13:55 05/21/25 09:29 Labs: Laboratory Results - last 24 hr 05/21/25 09:29: WBC 14.7 H, RBC 2.23 L, Hgb 3.6 L*, Hct 14.4 L, MCV 64.6 L, MCH 16.1 L, MCHC 25.0 L, RDW Std Deviation 46.6 H, RDW Coeff of Federico 21.1 H, Plt Count 426, MPV 10.2, Immature Gran % (Auto) 0.900, Neut % (Auto) 88.4 H, Lymph % (Auto) 6.5 L, [place] % (Auto) 4.1, Eos % (Auto) 0.0, Baso % (Auto) 0.1, Absolute Neuts (auto) 13.0 H, Absolute Lymphs (auto) 0.95, Nucleated RBC % 1.0, Differential Comment SCANNED, Hypochromasia 3+, Anisocytosis 2+, Sodium 140, Potassium 5.8 H, Chloride 105, Carbon Dioxide 14.9 L, Anion Gap 21 H, BUN 56 H, Creatinine 2.35 H, Estim Creat Clear Calc 26.86 L, Est GFR (MDRD) Non-Af 23 L, BUN/Creatinine Ratio 23.8 H, Glucose 120 H, Lactic Acid 6.7 H*, Calcium 8.3, Total Bilirubin 1.05, AST 20, ALT 16, Alkaline Phosphatase 74, Troponin T High Sens 35 H, Total Protein 6.7, Albumin 3.3 L, Globulin 3.4, Albumin/Globulin Ratio 1.0 05/21/25 10:15: Ferritin 53, Blood Type A POSITIVE, Antibody Screen NEGATIVE, Crossmatch See Detail 05/21/25 11:45: Troponin T Hi Sens 2 Hr 35 H 05/21/25 11:55: PT 16.9 H, INR 1.3 05/21/25 13:55: Hgb 4.4 L*, Hct 16.0 L, Lactic Acid 2.9 H*, Troponin T Hi Sens 4Hr 32 H, [place] [address] H, Procalcitonin 0.51 H ABG Data ABG results: ABG 05/21/25 09:30 Specimen Type ART Sample Site L Radial pH 7.46 H Bicarbonate Actual 16.4 L Total CO2 17 Base Excess -7 L O2 Saturation 97 O2 % 100.0 ABG pCO2 22.8 L ABG pO2 79 Alcon Test Positive O2 Delivery Device NRB Vent Mode Not entered EKG Initial EKG: Attestation: I personally reviewed and interpreted this EKG as follows: Prior EKG tracings: available for review EKG Rhythm Intrepretation: Atrial Fibrillation Imaging Radiology Impression Chest X-Ray 05/21/25 09:20 IMPRESSION: Underexpanded lungs with superimposed airspace opacifications in both lung cox suggesting either pulmonary vascular congestion/CHF or a diffuse inflammatory process. Follow-up recommended to ensure complete resolution Reading Location: [id number] Echocardiogram 05/21/25 10:51 Interpretation Summary Normal LV size. Mild concentric left ventricular hypertrophy. Left ventricular systolic function is normal. The left ventricular ejection fraction is 60 %. Apical hypertrophic cardiomyopathy present. Contrast injection was performed. Ordering Physician: Dar Hunt Referring Physician: SABRINA ROCHA Performed By: Lana Rajput RCS Chest X-Ray 05/21/25 14:11 IMPRESSION: Bilateral pulmonary airspace disease is again seen, with some areas improved in some areas worsened since the prior study, overall of similar severity, however. No pleural effusion or pneumothorax is seen. Interval placement of nasogastric tube, seen coursing of the stomach, endotracheal tube, with tip proximally 1 cm above the iraida, and right jugular central venous catheter, with tip projecting over the distal SVC. The cardiomediastinal silhouette is stable, without evidence of cardiomegaly. Reading Location: [facility] Assessment & Plan Assessment/Plan (1) Shock: PLAN: Undifferentiated at this time. Concern for hemorrhagic plus minus septic shock. Within normal EF cardiogenic ruled out. Right IJ triple-lumen catheter placed. Patient started on norepinephrine. Not a candidate for 30 cc/kg of IVF given CHF. Follow up cultures. Follow-up urinalysis Started on empiric antibiotics (2) Acute hypoxemic respiratory failure: PLAN: CHF versus pneumonia Intubated due to concern for on pending airway collapse given her numerous severe medical issues that are coalescing at present. On empiric antibiotic Unable to diurese at this time given shock. (3) (HFpEF) heart failure with preserved ejection fraction: PLAN: Acute EF noted as normal. Grossly normal EF on POCUS exam. Cannot rule out high-output failure due to severe anemia. (4) Atrial fibrillation with RVR: PLAN: New diagnosis but unclear how new this processes. Unable to anticoagulate due to anemia. May be exacerbated due to the severity of her underlying illnesses. (5) Acute blood loss anemia: PLAN: Unclear how long the patient has been anemic. Currently her admission hemoglobin was 3.6. Ordered 4 units packed red blood cells. GI consult for evaluation. Check anemia studies (6) Elevated troponin: PLAN: Mild elevation due to atrial fibrillation, respiratory failure, anemia. Demand ischemia from above. No gross wall abnormality on echo PLAN: Plan History of stroke: Patient not on any antiplatelet or any anticoagulation medications. Does have right-sided hemiparesis Hypertension: Holding off on amlodipine, carvedilol and hydralazine given shock. VTE prophylaxis with SCDs CODE STATUS: Addressed with the patient and her family. Patient is full code. DW patient's brother at bedside. Charges/Coding Visit Charges Inpatient E&M: 41537 Init Hosp L3
--- NOTE | 2025-05-21 15:35 | PCM.RX.CS ---
Consult Antibiotic Management Pharmacy has been consulted to manage selected antibiotic: Vancomycin Type of Intervention Type of Consult: New start Suspected Infection Suspected Infection: Pneumonia Prior Doses of Antibiotics Prior Doses of Antibiotics Received/Current Regimen: 05/21/25 @ 1524 Vancomycin 2000mg x1 Labs Labs: Sodium 140 mmol/L (133-145) 05/21/25 09:29 Potassium 5.8 mmol/L (3.3-5.1) H 05/21/25 09:29 Chloride 105 mmol/L (98-108) 05/21/25 09:29 Carbon Dioxide 14.9 mmol/L (21.0-32.0) L 05/21/25 09:29 Anion Gap 21 (5-15) H 05/21/25 09:29 BUN 56 mg/dL (4-19) H 05/21/25 09:29 Creatinine 2.35 mg/dL (0.70-1.20) H 05/21/25 09:29 Est GFR (MDRD) Non-Af 23 (>60) L 05/21/25 09:29 BUN/Creatinine Ratio 23.8 RATIO (10-20) H 05/21/25 09:29 Glucose 120 mg/dL (70-99) H 05/21/25 09:29 Dosing Weight Weight used for dosin kg Estimated Creatinine Clearance Estimated Creatinine Clearance: 26 Goal Trough Goal Trough: 15-20 mcg/mL Pharmacy Plan for Drug Dosing Pharmacy Plan for Drug Dosing: Vancomycin 1000mg every 24 hours Pharmacy Service will continue to monitor and adjust dosing as required. Follow-Up Labs Follow-Up Labs: Trough: Vancomycin Date/Time Labs Ordered Labs to be done on [date and time ordered]: 05/23/25 @ 1500
[2025-05-21 15:36] LABS: FI02 60.0; PEEP 5; RR 16; SITE L Radial; VBG BASE EXCESS -4 mmol/L (-1.0-3.5); VBG PO2 23 mmHg (25-40); VBG SO2 42 % (50-70); VBG TCO2 21 mmol/L (23-33)
[2025-05-21] MEDS: Propofol 10MG/Ml 1,000 MG/100 ML Bottle 4.8 MG CONT INF (15:39)
[2025-05-21] MEDS: Piperacil/Tazobactam 3.375 GM in 0.9% Normal Saline (50mL MB+) 50 ML IV ×2 (15:59→21:41)
[2025-05-21 17:51] LABS: Mucous, Urine 0 SEEN /hpf (<or=2+)
[2025-05-21 18:07] LABS: CPK Total, Creatine Kinase 97 U/L (24-195)
[2025-05-21 18:12] LABS: Color, Urine Yellow (Yellow); Glucose, Dipstick Normal (Normal); Ketone-Dipstick Negative (Negative); Leukocyte Esterase-Dipstick 500 /ul (Negative); Nitrite-Dipstick Negative (Negative); Occult Blood-Urine 150 /ul (Negative); Protein-Dipstick 100 mg/dl (Negative); Specific Gravity, Urine 1.020 (1.002-1.030); Urine Bilirubin Dipstick Negative (Negative)
--- NOTE | 2025-05-21 18:15 | CON.PCM.GI_ITS ---
HPI Consult Data Date of Consult: 05/21/25 HPI Narrative Reason for Consultation: Anemia HPI Narrative: 59 F who presents with change in mental status. All information was obtained from the chart due to patient's altered mental status and being intubated. She has a past medical history of CVA with dysarthria. She presented to the emergency room and was noted to be hypotensive. She was noted to have a hemoglobin of 3.6, lactic acid of 6.7. As per the patient's brother. No bleeding that he is aware of but there was concern that she was having menstrual blood in the toilet week or 2 ago. Patient a chest x-ray was concern for pulmonary vascular congestion so with the patient is lactic acid patient did not receive 30 cc/kg of IV fluid due to worsening heart failure. RAD/Chest 1 View (Portable) IMPRESSION: Underexpanded lungs with superimposed airspace opacifications in both lung cox suggesting either pulmonary vascular congestion/CHF or a diffuse inflammatory process. Patient was noted to be in atrial fibrillation with RVR. Patient requires assistance and get has around a clock care at home by family members. Patient has right-sided weakness due to prior history of stroke. Patient was subsequently admitted to the intensive care unit and patient was seen by critical care medicine and subsequently was intubated and had a central venous catheter placed. Her BNP was noted to be 16,000 CHO/Echo Complete W/ Contrast Interpretation Summary Normal LV size. Mild concentric left ventricular hypertrophy. Left ventricular systolic function is normal. The left ventricular ejection fraction is 60 %. Apical hypertrophic cardiomyopathy present. Contrast injection was performed. [facility], LATER [facility] Medical History Hypertension CVA (cerebral vascular accident) Home Medications ?Medication ?Instructions ?Recorded ?Last Taken ?Type amlodipine 10 mg tablet 10 mg PO DAILY 05/21/2504/28 History carvedilol 3.125 mg tablet 3.125 mg PO BID 05/21/25 History hydralazine 100 mg tablet 100 mg PO TID 05/21/2505/20 History simvastatin 20 mg tablet 20 mg PO DAILY 05/21/2504/28 History Allergy/AdvReac Type Severity Reaction Status Date / Time No Known Allergies Allergy Verified 05/21/25 09:27 Family History unable to obtain Surgical History unable to obtain Social History Smoking Status: Never smoker ROS Constitutional Constitutional: Denies fatigue, fever(s), poor appetite, weight gain or weight loss Gastrointestinal Gastrointestinal: Denies belching, bloating, change in bowel habits, change in stool character, chewing difficulty, coffee ground emesis, constipation, cramping, diarrhea, dyspepsia, dysphagia, early satiety, excessive flatus, fecal incontinence, heartburn, hematemesis, hematochezia, hemorrhoids, loose stools, melena, nausea, odynophagia, rectal bleeding, tenesmus, vomiting or weight changes Physical Exam Const alert HEENT normocephalic and head/scalp atraumatic Neck no lymphadenopathy Resp Resp Narrative: Bibasilar crackles Cardio Cardio Narrative: Irregularly irregular GI normal to inspection, nondistended, normoactive bowel sounds, soft to palpation, non-tender and non-distended Extremity Extremity Narrative: Bilateral lower extremity edema 2+ edema. Neuro Sensorium / Orientation: awake, oriented to person and oriented to place; Negative for oriented to time Lab / Micro Data 05/21/25 13:55 05/21/25 09:29 Labs: Laboratory Results - last 24 hr 05/21/25 09:29: WBC 14.7 H, RBC 2.23 L, Hgb 3.6 L*, Hct 14.4 L, MCV 64.6 L, MCH 16.1 L, MCHC 25.0 L, RDW Std Deviation 46.6 H, RDW Coeff of Federico 21.1 H, Plt Count 426, MPV 10.2, Immature Gran % (Auto) 0.900, Neut % (Auto) 88.4 H, Lymph % (Auto) 6.5 L, [place] % (Auto) 4.1, Eos % (Auto) 0.0, Baso % (Auto) 0.1, Absolute Neuts (auto) 13.0 H, Absolute Lymphs (auto) 0.95, Nucleated RBC % 1.0, Differential Comment SCANNED, Hypochromasia 3+, Anisocytosis 2+, Sodium 140, P otassium 5.8 H, Chloride 105, Carbon Dioxide 14.9 L, Anion Gap 21 H, BUN 56 H, C reatinine 2.35 H, Estim Creat Clear Calc 26.86 L, Est GFR (MDRD) Non-Af 23 L, B UN/Creatinine Ratio 23.8 H, Glucose 120 H, Lactic Acid 6.7 H*, Calcium 8.3, Total Bilirubin 1.05, AST 20, ALT 16, Alkaline Phosphatase 74, Troponin T High Sens 35 H, Total Protein 6.7, Albumin 3.3 L, Globulin 3.4, Albumin/Globulin Ratio 1.0 05/21/25 10:15: Ferritin 53, Blood Type A POSITIVE, Antibody Screen NEGATIVE, Crossmatch See Detail 05/21/25 11:45: Troponin T Hi Sens 2 Hr 35 H 05/21/25 11:55: PT 16.9 H, INR 1.3 05/21/25 13:55: Hgb 4.4 L*, Hct 16.0 L, Lactic Acid 2.9 H*, Total Creatine Kinase 97, Troponin T Hi Sens 4Hr 32 H, [place] [address] H, Procalcitonin 0.51 H ABG Data ABG results: ABG 05/21/25 05/21/25 09:30 15:31 Specimen Type ART LJ Sample Site L Radial L Radial pH 7.46 H Bicarbonate Actual 16.4 L Total CO2 17 Base Excess -7 L O2 Saturation 97 O2 % 100.0 60.0 ABG pCO2 22.8 L ABG pO2 79 Alcon Test Positive VBG pH 7.41 VBG pO2 23 L VBG HCO3 20 L VBG Total CO2 21 L VBG O2 Sat (Calc) 42 L VBG Base Excess -4 L POC Mix VBG pCO2 Pt Tmp 32.4 L Respiration Rate 16 O2 Delivery Device NRB Adult Vent Vent Mode Not entered Tidal Volume 450.0 POC PEEP 5 Imaging Radiology Impression Chest X-Ray 05/21/25 09:20 IMPRESSION: Underexpanded lungs with superimposed airspace opacifications in both lung cox suggesting either pulmonary vascular congestion/CHF or a diffuse inflammatory process. Follow-up recommended to ensure complete resolution Reading Location: [id number] Echocardiogram 05/21/25 10:51 Interpretation Summary Normal LV size. Mild concentric left ventricular hypertrophy. Left ventricular systolic function is normal. The left ventricular ejection fraction is 60 %. Apical hypertrophic cardiomyopathy present. Contrast injection was performed. Ordering Physician: Dar Hunt Referring Physician: SABRINA ROCHA Performed By: Lana Rajput RCS Chest X-Ray 05/21/25 14:11 IMPRESSION: Bilateral pulmonary airspace disease is again seen, with some areas improved in some areas worsened since the prior study, overall of similar severity, however. No pleural effusion or pneumothorax is seen. Interval placement of nasogastric tube, seen coursing of the stomach, endotracheal tube, with tip proximally 1 cm above the iraida, and right jugular central venous catheter, with tip projecting over the distal SVC. The cardiomediastinal silhouette is stable, without evidence of cardiomegaly. Reading Location: [place] [id number] Renal Ultrasound 05/21/25 14:49 IMPRESSION: No hydronephrosis. 4 mm nonobstructive calculus within the left kidney. 3.1 x 3.5 cm and 3.4 x 2.9 cm cysts within the right kidney and 1.9 x 1.6 cm cyst within the left kidney. Reading Location: [facility] Assessment & Plan Assessment/Plan (1) (HFpEF) heart failure with preserved ejection fraction: (2) Acute blood loss anemia: (3) Atrial fibrillation with RVR: (4) Acute hypoxemic respiratory failure: PLAN: 59-year-old male with Altered Mental Status , severe anemia, respiratory failure, and new-onset AFib with RVR. * Respiratory Distress/Failure: * S/P intubation for respiratory failure likely secondary to cardiogenic pulmonary edema caused by the combination of severe anemia and AFib with RVR. Her echo did show ejection fraction of 60%. The increased myocardial oxygen demand from the rapid heart rate, combined with the reduced oxygen- carrying capacity from the severe anemia, has likely precipitated this event. * Pneumonia, CHF and sepsis are also on the differential for respiratory distress and AMS as her white blood cell count is 14.7. * Altered Mental Status (AMS): * Likely multifactorial, including cerebral hypoperfusion due to severe anemia, hypotension, and rapid heart rate. * Hypoxia, electrolyte abnormalities, and possible infectious processes must be ruled out. * Severe Anemia: * Etiology is unclear without a full history. Possible causes include acute blood loss , anemia of chronic disease, or nutritional deficiency. * The severe anemia has worsened the patient's condition by decreasing oxygen delivery to vital organs, including the brain and heart. * New-Onset Atrial Fibrillation with RVR: * The patient is hemodynamically unstable as a result of the AFib with RVR. The fast, irregular rhythm decreases cardiac output, contributing to shock and multiorgan dysfunction. * Possible precipitants include anemia, infection, myocardial infarction, and stress cardiomyopathy.? Plan: Neurologic: * Patient is intubated and sedated Cardiovascular: * Consult pulmonary critical care and cardiology:? for management of new-onset AFib.? Hematology: * Transfusion:?Transfuse 2 units of packed red blood cells (PRBC) urgently due to severe symptomatic anemia (Hb < 7 g/dL). * Anemia Workup:?Initiate workup for the cause of severe anemia. * Labs:?Ferritin, TIBC, vitamin B12, folate. * Patient will undergo upper endoscopy tomorrow * Monitor:?Follow daily CBCs to monitor response to transfusion.? Respiratory: * Ventilator Management:?As per pulmonary critical care Charges/Coding Visit Charges Inpatient E&M: 62725 Init Hosp L3
--- NOTE | 2025-05-21 18:30 | NURSING ---
Dr. Monsivais at bedside to intubate. This RN, Amy Sandoval RN and RT at bedside to assist. Versed 4 mg IV, Etomidate 20mg IV given (see MAR) Successfully intubated with positive color change and equal b/l lung sounds at 1353. Patient tolerated well.
[2025-05-21 18:32] LABS: FOLATES,SERUM (FOLIC ACID) 5.60 ng/mL (4.60-34.80)
[2025-05-21 18:48] LABS: Ferritin 62 ng/mL (22-378); Triglycerides 80 mg/dL; Vitamin B12 717 pg/mL (180-914)
[2025-05-21 19:07] LABS: Iron 22 ug/dL (50-170); Iron Binding Capacity,Total 338 ug/dL (250-450); Iron Binding Capacity,Unsat 316 ug/dL (228-428)
[2025-05-21 19:26] LABS: Red Blood Cells-Urine 10-25 SEEN /hpf (0-5)
[2025-05-21 19:27] LABS: Squamous Epithelial Cells - UA 5-10 SEEN /hpf (5-10)
[2025-05-21 20:11] LABS: Iron 11 ug/dL (50-170); Iron Binding Capacity,Total 361 ug/dL (250-450); Iron Binding Capacity,Unsat 350 ug/dL (228-428)
[2025-05-21] MEDS: 0.9% Saline Lock 10 ML Syringe IV (21:07)
[2025-05-21] MEDS: Norepinephrine 8 MG in 0.9% Normal Saline (250mL Bag) 242 ML 28.1 MG CONT INF (21:41)
[2025-05-22] VITALS (54 sets, daily range): BP systolic 87–104; BP diastolic 58–70; PULSE 63–87; RESP 16–22; TEMP 37.2–38.1; O2SAT 83–100; BMI 29.7
[2025-05-22] MEDS: Propofol 10MG/Ml 1,000 MG/100 ML Bottle 12.1 MG CONT INF (00:35)
[2025-05-22] MEDS: fentaNYL drip 100 ML 12.5 MCG CONT INF (00:36)
[2025-05-22 03:09] LABS: Hematocrit 25.9 % (37-47); Hemoglobin 8.0 g/dL (12.0-15.0); Immature Granulocytes Count 0.210 X10^3/uL (0.0-0.0); Mean Corp Hgb Conc 30.9 g/dL (32-36); Mean Corpuscular Volume 73.6 fL (81-99); Mean Platelet Vol. 9.4 fl (6.2-12.0); NRBC Flagged by Analyzer 1.5 % (0-5); POSITIVE DIFFERENTIAL YES; POSITIVE MORPHOLOGY YES; Platelet Count 311 K/mm3 (150-450); RBC Distribution Width CV 23.9 % (11.6-14.6); RBC Distribution Width SD 61.6 fl (35.1-43.9); Red Blood Count 3.52 M/mm3 (4.2-5.4); White Blood Count 23.5 K/mm3 (4.4-11.0)
[2025-05-22 03:10] LABS: Differential Indicated SCAN CRITERIA MET
[2025-05-22 03:43] LABS: Anion Gap 10 (5-15); BUN 54 mg/dL (4-19); BUN/Creat Ratio 24.2 RATIO (10-20); Calcium,Total 7.4 mg/dL (7.6-11.0); Carbon Dioxide 18.0 mmol/L (21.0-32.0); Chloride 114 mmol/L (98-108); Estimated Creatinine Clearance 27.77 ml/min (50-250); Glucose 94 mg/dL (70-99); Potassium 4.1 mmol/L (3.3-5.1)
[2025-05-22 03:45] LABS: Differential Comment SCANNED
[2025-05-22] MEDS: Piperacil/Tazobactam 3.375 GM in 0.9% Normal Saline (50mL MB+) 50 ML IV ×3 (05:30→21:42)
--- NOTE | 2025-05-22 05:32 | PN.CC_ITS ---
Assessment & Plan Assessment/Plan (1) Acute hypoxemic respiratory failure: (2) Elevated troponin: (3) Acute on chronic kidney failure: (4) New onset a-fib: (5) Shock: PLAN: Plan RECOMMENDATIONS: 1. Continue assist-control mode mechanical ventilation. Wean FiO2 and PEEP as tolerated. 2. Continue Levophed to maintain a mean arterial pressure at or above 65 mmHg. 3. Recheck H&H. Goal to maintain a hemoglobin at or above 7 g/dL. 4. Continue PPI therapy. 5. Continue empiric antibiotics, pending culture results. 6. Gastroenterology following with tentative plans for endoscopic evaluation. IMPRESSIONS: 1. Undifferentiated shock Most likely secondary to hemorrhagic etiology in the setting of acute blood loss anemia. However, the patient does have a normal ejection fraction on echocardiogram. Therefore I cannot definitively say that the infiltrates noted on chest x-ray are related to pulmonary edema in the setting of CHF. Therefore, empiric antimicrobials were initiated to cover for septic etiologies. There is some concern for underlying pneumonia versus urinary tract source of infection. The patient has been transfused packed red blood cells and remains on Levophed to maintain hemodynamic stability. There are tentative plans to proceed with endoscopic evaluation later today. The patient will be continued on PPI therapy. 2. Acute hypoxemic respiratory failure Clinical concern for underlying pneumonia. While there was initial concern for decompensated heart failure, the patient's echocardiogram revealed a normal ejection fraction. She was ultimately intubated on May 21. The patient will be continued on assist-control mode of mechanical ventilation, with a goal to wean FiO2 and PEEP to maintain saturations at or above 90%. Empiric antimicrobials will be continued, pending infectious workup. 3. Acute on chronic kidney disease Most likely secondary to #1. Continue supportive care, including vasopressor support, if indicated. Avoid nephrotoxic medications. 4. Acute blood loss anemia Gastroenterology is following. Continue transfusion of blood products to achieve and maintain a hemoglobin at or above 7 g/dL. Continue PPI therapy as ordered. 5. Troponin elevation/atrial fibrillation Secondary to demand ischemia in the setting of #1. Echocardiogram revealed intact, normal systolic function. Given that the patient's rate is currently controlled, we will plan to continue supportive care. 6. History of CVA with residual deficits/hypertension/hyperlipidemia Complicates care, management, recovery and prognosis. Continue supportive measures as noted above. Continue to hold home antihypertensives. TIME: 34 minutes of critical care time, independent of procedures, was spent addressing the patient's undifferentiated shock, acute hypoxemic respiratory failure, acute on chronic kidney disease, acute blood loss anemia, review of all data and collaboration with the care team. Subjective Subjective The patient was seen and examined at the bedside this morning. Events from the last 24 hours have been reviewed. The patient currently has a low-grade fever and remains on Levophed at 10 mcg/min to maintain hemodynamic stability. The patient is currently documented to be overall net +3.1 L for the hospitalization. She has been transfused a total of 4 units of packed red blood cells, to date. White blood cell count is elevated at 23,000 with a hemoglobin of 8.0 g/dL. ABG this morning was notable for a pH of 7.41 with a pCO2 of 33 and PO2 of 79. The patient remains on assist-control mode of mechanical ventilation. Chemistry profile was notable for a chloride of 114, bicarbonate of 18, BUN of 54 and creatinine of 2.23. There are tentative plans to proceed with endoscopic GI evaluation later today. Objective Data Objective Data The patient's most recent lab work, culture data and imaging studies have all been personally reviewed. Surface echocardiogram demonstrated mild concentric LVH with an ejection fraction of 60%. Blood, urine and sputum cultures are pending. Vital Signs: Vital Signs Temp Pulse Resp BP Pulse Ox O2 Del Method O2 Flow Rate 100.2 F H 74 16 102/61 100 Mechanical Ventilator 60 05/22/25 03:00 05/22/25 05:10 05/22/25 05:10 05/22/25 05:00 05/22/25 05:10 05/22/25 05:00 05/21/25 18:45 FiO2 90 05/22/25 05:10 Oxygen Flow Rate (L/min) 60 Oxygen Delivery Method Mechanical Ventilator Weight: 178 lb 5.663 oz Body Mass Index (BMI) 29.7 Intake & Output: Intake and Output for Last 24 Hours 05/20/25 05/21/25 05/22/25 23:59 23:59 23:59 Intake Total 3304.67 / 3333.77 340.19 / 340.19 Output Total 150 / 450 300 / 300 Balance 3154.67 / 2883.77 40.19 / 40.19 Lab / Micro Data Attestation: I reviewed the patient's lab results. 05/22/25 03:00 05/22/25 03:00 Labs: Laboratory Results - last 24 hr 05/21/25 09:29: WBC 14.7 H, RBC 2.23 L, Hgb 3.6 L*, Hct 14.4 L, MCV 64.6 L, MCH 16.1 L, MCHC 25.0 L, RDW Std Deviation 46.6 H, RDW Coeff of Federico 21.1 H, Plt Count 426, MPV 10.2, Immature Gran % (Auto) 0.900, Neut % (Auto) 88.4 H, Lymph % (Auto) 6.5 L, [place] % (Auto) 4.1, Eos % (Auto) 0.0, Baso % (Auto) 0.1, Absolute Neuts (auto) 13.0 H, Absolute Lymphs (auto) 0.95, Nucleated RBC % 1.0, Differential Comment SCANNED, Hypochromasia 3+, Anisocytosis 2+, Sodium 140, P otassium 5.8 H, Chloride 105, Carbon Dioxide 14.9 L, Anion Gap 21 H, BUN 56 H, C reatinine 2.35 H, Estim Creat Clear Calc 26.86 L, Est GFR (MDRD) Non-Af 23 L, B UN/Creatinine Ratio 23.8 H, Glucose 120 H, Lactic Acid 6.7 H*, Calcium 8.3, Total Bilirubin 1.05, AST 20, ALT 16, Alkaline Phosphatase 74, Troponin T High Sens 35 H, Total Protein 6.7, Albumin 3.3 L, Globulin 3.4, Albumin/Globulin Ratio 1.0 05/21/25 10:15: Iron 11 L, TIBC 361, Iron Saturation 3.0 L, Unsaturated IBC 350, Ferritin 53, Blood Type A POSITIVE, Antibody Screen NEGATIVE, Crossmatch See Detail 05/21/25 11:45: Troponin T Hi Sens 2 Hr 35 H 05/21/25 11:55: PT 16.9 H, INR 1.3 05/21/25 13:55: Hgb 4.4 L*, Hct 16.0 L, Lactic Acid 2.9 H*, Iron 22 L, TIBC 338, Iron Saturation 7.0 L, Unsaturated IBC 316, Ferritin 62, Total Creatine Kinase 97, Troponin T Hi Sens 4Hr 32 H, [place] [address] H, Triglycerides 80, Vitamin B12 717, Procalcitonin 0.51 H, TSH 1.040 05/21/25 17:30: Serum Folate 5.60 05/21/25 17:40: Urine Color Yellow, Urine Clarity Cloudy, Urine pH 5.0, Ur Specific Cranberry 1.020, Urine Protein 100 H, Urine Glucose (UA) Normal, Urine Ketones Negative, Urine Occult Blood 150 H, Urine Nitrite Negative, Urine Bilirubin Negative, Urine Urobilinogen Normal, Ur Leukocyte Esterase 500 H, Urine RBC 10-25 SEEN, Urine WBC >100 SEEN, Ur Squamous Epith Cells 5-10 SEEN, Urine Bacteria 2+, Urine Mucus 0 SEEN 05/22/25 03:00: WBC 23.5 H, RBC 3.52 L, Hgb 8.0 L, Hct 25.9 L, MCV 73.6 L D, MCH 22.7 L, MCHC 30.9 L D, RDW Std Deviation 61.6 H, RDW Coeff of Federico 23.9 H, Plt Count 311, MPV 9.4, Immature Gran % (Auto) 0.900, Neut % (Auto) 92.0 H, Lymph % (Auto) 2.3 L, [place] % (Auto) 4.6, Eos % (Auto) 0.0, Baso % (Auto) 0.2, Absolute Neuts (auto) 21.6 H, Absolute Lymphs (auto) 0.53 L, Nucleated RBC % 1.5, Differential Comment SCANNED, Sodium 142, Potassium 4.1, Chloride 114 H, Carbon Dioxide 18.0 L, Anion Gap 10, BUN 54 H, Creatinine 2.23 H, Estim Creat Clear Calc 27.77 L, Est GFR (MDRD) Non-Af 24 L, BUN/Creatinine Ratio 24.2 H, Glucose 94, Calcium 7.4 L ABG Data ABG results: ABG 05/21/25 05/21/25 09:30 15:31 Specimen Type ART LJ Sample Site L Radial L Radial pH 7.46 H Bicarbonate Actual 16.4 L Total CO2 17 Base Excess -7 L O2 Saturation 97 O2 % 100.0 60.0 ABG pCO2 22.8 L ABG pO2 79 Alcon Test Positive VBG pH 7.41 VBG pO2 23 L VBG HCO3 20 L VBG Total CO2 21 L VBG O2 Sat (Calc) 42 L VBG Base Excess -4 L POC Mix VBG pCO2 Pt Tmp 32.4 L Respiration Rate 16 O2 Delivery Device NRB Adult Vent Vent Mode Not entered Tidal Volume 450.0 POC PEEP 5 Radiography Diagnostic Testing: Radiology Impression Chest X-Ray 05/21/25 09:20 IMPRESSION: Underexpanded lungs with superimposed airspace opacifications in both lung cox suggesting either pulmonary vascular congestion/CHF or a diffuse inflammatory process. Follow-up recommended to ensure complete resolution Reading Location: [id number] Echocardiogram 05/21/25 10:51 Interpretation Summary Normal LV size. Mild concentric left ventricular hypertrophy. Left ventricular systolic function is normal. The left ventricular ejection fraction is 60 %. Apical hypertrophic cardiomyopathy present. Contrast injection was performed. Ordering Physician: Dar Hunt Referring Physician: SABRINA ROCHA Performed By: Lana Rajput RCS Chest X-Ray 05/21/25 14:11 IMPRESSION: Bilateral pulmonary airspace disease is again seen, with some areas improved in some areas worsened since the prior study, overall of similar severity, however. No pleural effusion or pneumothorax is seen. Interval placement of nasogastric tube, seen coursing of the stomach, endotracheal tube, with tip proximally 1 cm above the iraida, and right jugular central venous catheter, with tip projecting over the distal SVC. The cardiomediastinal silhouette is stable, without evidence of cardiomegaly. Reading Location: [facility] Renal Ultrasound 05/21/25 14:49 IMPRESSION: No hydronephrosis. 4 mm nonobstructive calculus within the left kidney. 3.1 x 3.5 cm and 3.4 x 2.9 cm cysts within the right kidney and 1.9 x 1.6 cm cyst within the left kidney. Reading Location: [facility] Physical Exam Const Constitutional Narrative: Intubated, sedated and mechanically ventilated. No ventilator dyssynchrony. General Appearance: ill appearing and patient mechanically ventilated HEENT normocephalic and head/scalp atraumatic Mouth: endotracheal tube in place and OG tube in place Eyes PERRL, EOMs intact bilaterally and conjunctivae normal Neck supple General: trachea midline and CVC in place Chest inspection of chest normal Resp Auscultation: rales and diminished lung sounds Cardio S1 normal heart sound and S2 normal heart sound Rhythm: abnormal rhythm GI normal to inspection, nondistended, normoactive bowel sounds Extremity General Extremity: edema; Negative for clubbing Skin no rashes or lesions noted Neuro Neuro Narrative: Contracted right-sided extremities. Sensorium / Orientation: sedated on vent Charges/Coding Procedures Hospitalists Procedures: 60552 Critical Care 1st Hr
--- NOTE | 2025-05-22 06:00 | RAD_ITS ---
PROCEDURE: CHEST 1 VIEW (PORTABLE) 05/22/2025 REASON FOR EXAM: RESPIRATORY FAILURE TECHNIQUE: Frontal view of the chest. COMPARISON: May 21, 2025 FINDINGS: There is an ET tube in position with its tip 2.5 cm above the level of the iraida. There is an enteric tube seen with its tip below the field of view of this examination. There is cardiomegaly with prominent central vascular markings. There is patchy consolidation throughout the right lung and left perihilar region, increased. There is a moderate left effusion, slightly increased. There is no pneumothorax. Aortic calcifications are noted. There is no visible acute bony abnormality. RAD/Chest 1 View (Portable) IMPRESSION: Tubes and lines in position. There is cardiomegaly with prominent central vascular markings. There is patchy consolidation throughout the right lung and left perihilar daniela on, increased. There is a moderate left effusion, slightly increased. Reading Location: [facility]
[2025-05-22] MEDS: Norepinephrine 8 MG in 0.9% Normal Saline (250mL Bag) 242 ML 28.1 MG CONT INF (06:49)
[2025-05-22 06:59] LABS: Magnesium 2.4 mg/dL (1.5-2.2)
[2025-05-22 07:09] LABS: Base Excess -4 mmol/L (-2 to +2); FI02 70.0; PEEP 8; PO2 79 mmHG (75-100); RR 16; SITE L Radial; SO2 96 % (95-99)
[2025-05-22] MEDS: 0.9% Saline Lock 10 ML Syringe IV ×3 (07:42→09:29)
[2025-05-22] MEDS: fentaNYL drip 100 ML 10 MCG CONT INF ×2 (07:42→18:04)
--- NOTE | 2025-05-22 07:52 | PCM.PN.HOSP ---
Reason for Visit Chief Complaint: altered level of consciousness. Subjective Subjective Still on the ventilator. Still requiring norepinephrine. Objective Data Objective Data Vital Signs: Vital Signs Temp Pulse Resp BP Pulse Ox O2 Del Method O2 Flow Rate 38.1 C H 81 16 104/68 97 Mechanical Ventilator 60 05/22/25 07:00 05/22/25 07:00 05/22/25 07:00 05/22/25 07:00 05/22/25 07:00 05/22/25 07:48 05/21/25 18:45 FiO2 70 05/22/25 07:00 Oxygen Flow Rate (L/min) 60 Oxygen Delivery Method Mechanical Ventilator Weight: 80.9 kg Body Mass Index (BMI) 29.7 Intake & Output: Intake and Output for Last 24 Hours 05/20/25 05/21/25 05/22/25 23:59 23:59 23:59 Intake Total 3304.67 / 3333.77 440.90 / 440.90 Output Total 150 / 450 600 / 600 Balance 3154.67 / 2883.77 -159.10 / -159.10 Lab / Micro Data 05/22/25 12:20 05/22/25 03:00 Labs: Laboratory Results - last 24 hr 05/21/25 09:29: WBC 14.7 H, RBC 2.23 L, Hgb 3.6 L*, Hct 14.4 L, MCV 64.6 L, MCH 16.1 L, MCHC 25.0 L, RDW Std Deviation 46.6 H, RDW Coeff of Federico 21.1 H, Plt Count 426, MPV 10.2, Immature Gran % (Auto) 0.900, Neut % (Auto) 88.4 H, Lymph % (Auto) 6.5 L, [place] % (Auto) 4.1, Eos % (Auto) 0.0, Baso % (Auto) 0.1, Absolute Neuts (auto) 13.0 H, Absolute Lymphs (auto) 0.95, Nucleated RBC % 1.0, Differential Comment SCANNED, Hypochromasia 3+, Anisocytosis 2+, Sodium 140, Potassium 5.8 H, Chloride 105, Carbon Dioxide 14.9 L, Anion Gap 21 H, BUN 56 H, Creatinine 2.35 H, Estim Creat Clear Calc 26.86 L, Est GFR (MDRD) Non-Af 23 L, BUN/Creatinine Ratio 23.8 H, Glucose 120 H, Lactic Acid 6.7 H*, Calcium 8.3, Total Bilirubin 1.05, AST 20, ALT 16, Alkaline Phosphatase 74, Troponin T High Sens 35 H, Total Protein 6.7, Albumin 3.3 L, Globulin 3.4, Albumin/Globulin Ratio 1.0 05/21/25 10:15: Iron 11 L, TIBC 361, Iron Saturation 3.0 L, Unsaturated IBC 350, Ferritin 53, Blood Type A POSITIVE, Antibody Screen NEGATIVE, Crossmatch See Detail 05/21/25 11:45: Troponin T Hi Sens 2 Hr 35 H 05/21/25 11:55: PT 16.9 H, INR 1.3 05/21/25 13:55: Hgb 4.4 L*, Hct 16.0 L, Lactic Acid 2.9 H*, Iron 22 L, TIBC 338, Iron Saturation 7.0 L, Unsaturated IBC 316, Ferritin 62, Total Creatine Kinase 97, Troponin T Hi Sens 4Hr 32 H, [place] [address] H, Triglycerides 80, Vitamin B12 717, Procalcitonin 0.51 H, TSH 1.040 05/21/25 17:30: Serum Folate 5.60 05/21/25 17:40: Urine Color Yellow, Urine Clarity Cloudy, Urine pH 5.0, Ur Specific [place] 1.020, Urine Protein 100 H, Urine Glucose (UA) Normal, Urine Ketones Negative, Urine Occult Blood 150 H, Urine Nitrite Negative, Urine Bilirubin Negative, Urine Urobilinogen Normal, Ur Leukocyte Esterase 500 H, Urine RBC 10-25 SEEN, Urine WBC >100 SEEN, Ur Squamous Epith Cells 5-10 SEEN, Urine Bacteria 2+, Urine Mucus 0 SEEN 05/22/25 03:00: WBC 23.5 H, RBC 3.52 L, Hgb 8.0 L, Hct 25.9 L, MCV 73.6 L D, MCH 22.7 L, MCHC 30.9 L D, RDW Std Deviation 61.6 H, RDW Coeff of Federico 23.9 H, Plt Count 311, MPV 9.4, Immature Gran % (Auto) 0.900, Neut % (Auto) 92.0 H, Lymph % (Auto) 2.3 L, [place] % (Auto) 4.6, Eos % (Auto) 0.0, Baso % (Auto) 0.2, Absolute Neuts (auto) 21.6 H, Absolute Lymphs (auto) 0.53 L, Nucleated RBC % 1.5, Differential Comment SCANNED, Sodium 142, Potassium 4.1, Chloride 114 H, Carbon Dioxide 18.0 L, Anion Gap 10, BUN 54 H, Creatinine 2.23 H, Estim Creat Clear Calc 27.77 L, Est GFR (MDRD) Non-Af 24 L, BUN/Creatinine Ratio 24.2 H, Glucose 94, Calcium 7.4 L, Phosphorus 4.2, Magnesium 2.4 H ABG Data ABG results: ABG 05/21/25 05/21/25 05/22/25 09:30 15:31 07:04 Specimen Type ART LJ ART Sample Site L Radial L Radial L Radial pH 7.46 H 7.41 Bicarbonate Actual 16.4 L 20.7 L Total CO2 17 22 Base Excess -7 L -4 L O2 Saturation 97 96 O2 % 100.0 60.0 70.0 ABG pCO2 22.8 L 32.5 L ABG pO2 79 79 Alcon Test Positive VBG pH 7.41 VBG pO2 23 L VBG HCO3 20 L VBG Total CO2 21 L VBG O2 Sat (Calc) 42 L VBG Base Excess -4 L POC Mix VBG pCO2 Pt Tmp 32.4 L Respiration Rate 16 16 O2 Delivery Device NRB Adult Vent Adult Vent Vent Mode Not entered AC Tidal Volume 450.0 450.0 POC PEEP 5 8 Radiography Diagnostic Testing: Radiology Impression Chest X-Ray 05/21/25 09:20 IMPRESSION: Underexpanded lungs with superimposed airspace opacifications in both lung cox suggesting either pulmonary vascular congestion/CHF or a diffuse inflammatory process. Follow-up recommended to ensure complete resolution Reading Location: [id number] Echocardiogram 05/21/25 10:51 Interpretation Summary Normal LV size. Mild concentric left ventricular hypertrophy. Left ventricular systolic function is normal. The left ventricular ejection fraction is 60 %. Apical hypertrophic cardiomyopathy present. Contrast injection was performed. Ordering Physician: Dar Hunt Referring Physician: SABRINA ROCHA Performed By: Lana Rajput RCS Chest X-Ray 05/21/25 14:11 IMPRESSION: Bilateral pulmonary airspace disease is again seen, with some areas improved in some areas worsened since the prior study, overall of similar severity, however. No pleural effusion or pneumothorax is seen. Interval placement of nasogastric tube, seen coursing of the stomach, endotracheal tube, with tip proximally 1 cm above the iraida, and right jugular central venous catheter, with tip projecting over the distal SVC. The cardiomediastinal silhouette is stable, without evidence of cardiomegaly. Reading Location: [facility] Renal Ultrasound 05/21/25 14:49 IMPRESSION: No hydronephrosis. 4 mm nonobstructive calculus within the left kidney. 3.1 x 3.5 cm and 3.4 x 2.9 cm cysts within the right kidney and 1.9 x 1.6 cm cyst within the left kidney. Reading Location: [facility] Chest X-Ray 05/22/25 06:00 IMPRESSION: Tubes and lines in position. There is cardiomegaly with prominent central vascular markings. There is patchy consolidation throughout the right lung and left perihilar region, increased. There is a moderate left effusion, slightly increased. Reading Location: [facility] Physical Exam Const Constitutional Narrative: Intubated. Sedated. HEENT head/scalp atraumatic and moist oral mucous membranes Resp normal respiratory effort, no retractions, no use of accessory muscles and clear to auscultation bilaterally Cardio regular rate, regular rhythm, S1 normal heart sound and S2 normal heart sound GI normal to inspection, nondistended, normoactive bowel sounds, soft to palpation, non-tender, non-distended and hepatosplenomegaly Extremity normal to inspection General Extremity: edema Assessment & Plan Assessment/Plan (1) Shock: PLAN: Undifferentiated at this time. Concern for hemorrhagic plus minus septic shock. Within normal EF cardiogenic ruled out. Right IJ triple-lumen catheter placed. Patient started on norepinephrine. Not a candidate for 30 cc/kg of IVF given CHF. Follow up cultures. Follow-up urinalysis Started on empiric antibiotics (2) Acute hypoxemic respiratory failure: PLAN: CHF +/- pneumonia Intubated due to concern for on pending airway collapse given her numerous severe medical issues that are coalescing at present. On empiric antibiotic Unable to diurese at this time given shock. (3) (HFpEF) heart failure with preserved ejection fraction: PLAN: Acute EF noted as normal. Grossly normal EF on POCUS exam. Cannot rule out high-output failure due to severe anemia. (4) Atrial fibrillation with RVR: PLAN: New diagnosis but unclear how new this processes. Unable to anticoagulate due to anemia. May be exacerbated due to the severity of her underlying illnesses. (5) Acute blood loss anemia: PLAN: Unclear how long the patient has been anemic. Though looking back at her labs, patient hemoglobin of 13 on January 18 and then had hemoglobin of 7.6 on January 22 of this year. Her admission hemoglobin was 3.6. Transfused 4 units packed red blood cells, now Hg up to 8 GI consult for evaluation. On IV PPI. B12, folate, TSH WNL. Low iron and ferritin Will give IV iron (6) Elevated troponin: PLAN: Mild elevation due to atrial fibrillation, respiratory failure, anemia. Demand ischemia from above. No gross wall abnormality on echo PLAN: Plan History of stroke: Patient not on any antiplatelet or any anticoagulation medications. Does have right-sided hemiparesis Hypertension: Holding off on amlodipine, carvedilol and hydralazine given shock. VTE prophylaxis with SCDs CODE STATUS: Addressed with the patient and her family. Patient is full code. Discussed with the patient's brother at bedside. Charges/Coding Visit Charges Inpatient E&M: 64994 Subs Hosp L2
[2025-05-22] MEDS: Sodium Ferric Gluconat/Sucrose 125 MG in 0.9% Normal Saline (100mL Bag) 100 ML 110 MG IV (08:19)
[2025-05-22] MEDS: CHLORHEXIDINE GLUC 2% CLOTH 1 EACH TOWELETTE TOPICAL (08:19)
[2025-05-22] MEDS: 0.9% Normal Saline (250mL Bag) 250 ML 15 ML IV (08:19)
[2025-05-22] MEDS: Propofol 10MG/Ml 1,000 MG/100 ML Bottle 7.2 MG CONT INF ×2 (09:22→21:43)
[2025-05-22] MEDS: Chlorhexidine 15 ML PO ×2 (09:24→21:05)
--- NOTE | 2025-05-22 09:24 | CASEMGMT ---
Social Work SW spoke w/pt's brother Wayne at the bedside, inquired about POA for healthcare. He states pt's mother is POA and he is the alternate. SW asked Wayne to bring in the documents as able. Pt's brother Wayne states understanding. JOSEPH Eddy
[2025-05-22] MEDS: Pantoprazole Sodium 40 MG in 0.9% Normal Saline (100mL MB+) 100 ML 300 MG IV ×2 (10:02→21:04)
--- NOTE | 2025-05-22 10:53 | CASEMGMT ---
WES ROCK Assessment: Face to Face with pt for initial transition planning/care coordination assessment. Pt on vent, Pt brother in the room. WES ROCK introduced self and role at [facility], pt brother voices understanding and consents to assessment. Care providers, pharmacy, and demographics verified/updated. Strata: 2 Admitting Dx: shock PCP: Roger Specialists: Denies Preferred Pharmacy: [facility] Insurance: [facility] community Plan [facility] Prescription Benefit: yes LNOK: MomJohana; Brother, Wayne Living Arrangements: Pt lives with two brothers and mom ADLs: Pt requires assistance at home, family provides support. Transportation: Pt family provides transportation. DME: transport chairs, shower chair, bedside commode HHC/SNF: Previously in TCU or [facility], had HHC services but unsure who it was through. Pt states no further concerns/needs at this time. CM to follow. Advised pt to ask CM if any further question/concerns/needs arise, voices understanding. DC Plan: WES YOUNG CM to follow plan of care. Dee HARVEY CM
[2025-05-22 12:35] LABS: Hematocrit 25.0 % (37-47); Hemoglobin 7.8 g/dL (12.0-15.0)
--- NOTE | 2025-05-22 14:26 | CHAPLAIN ---
Type of Pastoral Visit _x__ Initial Visit ___ Follow-up Visit ___ On-call Visit ___ General Patient Visit ___ Spiritual Assessment ___ Family Conference ___ Bereavement ___ Rapid Response ___ Code Blue ___ Other (describe below) Pastoral Care Referral From ___ Patient _x__ Family ___ Nurse ___ Physician ___ Presser Automatic ___ Braid Folder ___ Other (describe below) Sacrament/Intervention _x__ Active listening ___ Anointing ___ Protestant ___ Bereavement ___ Communion ___ Emelina exploration ___ ___ Life review ___ Prayer ___ Reconciliation ___ Sacrament of Sick _x__ Supportive presence ___ Wedding ___ Other (describe below) Pastoral Comments patient is unresponsive and on the ventilator; brother of patient is in the room with her and he greets this cost accounting clerk; brother gives updates and details on physical situation and some of pt's past health history; brother expresses gratitude for the concern, feels optimistic on the direction medical care is going; brother states that the pt does not have a druze connection but does have other family around that is supportive; offer of future or ongoing support is made as desired
[2025-05-22] MEDS: Vancomycin HCl 1,000 MG in 0.9% Normal Saline (250mL Bag) 250 ML 250 MG IV (15:06)
[2025-05-23] VITALS (49 sets, daily range): BP systolic 83–113; BP diastolic 52–75; PULSE 59–102; RESP 8–17; TEMP 37.3–38; O2SAT 90–97; BMI 29.9
[2025-05-23] MEDS: Norepinephrine 8 MG in 0.9% Normal Saline (250mL Bag) 242 ML 9.4 MG CONT INF (00:38)
[2025-05-23] MEDS: fentaNYL drip 100 ML 10 MCG CONT INF ×2 (03:56→15:10)
[2025-05-23] MEDS: 0.9% Saline Lock 10 ML Syringe IV (03:56)
[2025-05-23 04:16] LABS: Hematocrit 24.0 % (37-47); Hemoglobin 7.2 g/dL (12.0-15.0); Immature Granulocytes Count 0.170 X10^3/uL (0.0-0.0); Mean Corp Hgb Conc 30.0 g/dL (32-36); Mean Corpuscular Volume 76.4 fL (81-99); Mean Platelet Vol. 9.9 fl (6.2-12.0); NRBC Flagged by Analyzer 0.8 % (0-5); POSITIVE MORPHOLOGY YES; Platelet Count 239 K/mm3 (150-450); RBC Distribution Width CV 24.9 % (11.6-14.6); RBC Distribution Width SD 66.5 fl (35.1-43.9); Red Blood Count 3.14 M/mm3 (4.2-5.4); White Blood Count 13.9 K/mm3 (4.4-11.0)
[2025-05-23 04:31] LABS: Differential Indicated SCAN CRITERIA MET
[2025-05-23 04:36] LABS: Anion Gap 10 (5-15); BUN 42 mg/dL (4-19); BUN/Creat Ratio 21.0 RATIO (10-20); Calcium,Total 7.6 mg/dL (7.6-11.0); Carbon Dioxide 17.8 mmol/L (21.0-32.0); Chloride 118 mmol/L (98-108); Estimated Creatinine Clearance 31.52 ml/min (50-250); Glucose 88 mg/dL (70-99); Potassium 3.8 mmol/L (3.3-5.1)
[2025-05-23 04:48] LABS: Allen Test Positive; Base Excess -4 mmol/L (-2 to +2); FI02 45.0; PEEP 5; PO2 67 mmHG (75-100); RR 16; SITE L Radial; SO2 95 % (95-99)
[2025-05-23 04:53] LABS: Polychromasia 1+
[2025-05-23 04:54] LABS: Anisocytosis 2+; Macrocytosis 1+
--- NOTE | 2025-05-23 05:30 | RAD_ITS ---
PROCEDURE: CHEST 1 VIEW (PORTABLE) 05/23/2025 REASON FOR EXAM: RESPIRATORY FAILURE TECHNIQUE: Frontal view of the chest. COMPARISON: May 22, 2025 FINDINGS: There is an ET tube in position, 2.5 cm above the level of the iraida. There is an enteric tube with its tip below the field of view of this exam. There is mild cardiomegaly with prominent central vascular markings and increased interstitial markings. There is consolidation throughout the right lung with interstitial infiltrate in the left upper and lower lung, similar to the prior. There is blunting of the costophrenic angle on the left consistent with a component of moderate pleural effusion. There is no visible pneumothorax. There is no acute bony abnormality. RAD/Chest 1 View (Portable) IMPRESSION: Tubes and lines in position. Bilateral infiltrate and consolidation with a moderate left effusion, similar t o the prior. A component of CHF is not excluded. Reading Location: [facility]
[2025-05-23] MEDS: Piperacil/Tazobactam 3.375 GM in 0.9% Normal Saline (50mL MB+) 50 ML IV ×3 (05:34→21:16)
--- NOTE | 2025-05-23 07:34 | OP.PROVAT_ITS ---
05/23/2025 Ann Marie Duran [address] [facility] [place] [address] Re : Upper GI endoscopy procedure for Marquita Iniguezalisson Dear Dr. Duran This procedure was performed on Thursday, May 22, 2025. My impressions and recommendations are as follows: Impressions : - No gross lesions in the lower third of the esophagus. - Non-bleeding gastric ulcers with no stigmata of bleeding. - Non-bleeding duodenal ulcers with no stigmata of bleeding. - No specimens collected. Recommendations : - Return patient to ICU for ongoing care. - Continue present medications. My findings are described in the full procedure note, which is enclosed. If I can be of further assistance, please feel free to contact me at . Sincerely, Jeffery Mcrae, 05/23/2025 7:32:57 AM This report has been signed electronically.
--- NOTE | 2025-05-23 07:34 | OP.EGD_ITS ---
Patient Name: Marquita Meehan Procedure Date: 05/22/2025 5:06 PM Date of : 1965 Age: 59 Procedure: Upper GI endoscopy Indications: Acute post hemorrhagic anemia, Iron deficiency anemia Providers: Jeffery Mcrae DO Medicines: Monitored Anesthesia Care Patient Profile: This is a 59 year old female. Complications: No immediate complications. Procedure: Pre-Anesthesia Assessment: - Prior to the procedure, a History and Physical was performed, and patient medications and allergies were reviewed. The patient is competent. The risks and benefits of the procedure and the sedation options and risks were discussed with the patient. All questions were answered and informed consent was obtained. Patient identification and proposed procedure were verified by the physician in the pre-procedure area. Mental Status Examination: alert and oriented. Airway Examination: normal oropharyngeal airway and neck mobility. Respiratory Examination: clear to auscultation. CV Examination: normal. Prophylactic Antibiotics: The patient does not require prophylactic antibiotics. Prior Anticoagulants: The patient has taken no anticoagulant or antiplatelet agents. ASA Grade Assessment: IV - A patient with severe systemic disease that is a constant threat to life. After reviewing the risks and benefits, the patient was deemed in satisfactory condition to undergo the procedure. The anesthesia plan was to use monitored anesthesia care (MAC). Immediately prior to administration of medications, the patient was re-assessed for adequacy to receive sedatives. The heart rate, respiratory rate, oxygen saturations, blood pressure, adequacy of pulmonary ventilation, and response to care were monitored throughout the procedure. The physical status of the patient was re-assessed after the procedure. After obtaining informed consent, the endoscope was passed under direct vision. Throughout the procedure, the patient's blood pressure, pulse, and oxygen saturations were monitored continuously. The gastroscope was introduced through the mouth, and advanced to the fourth part of the duodenum. Small bowel enteroscopy was deemed necessary. The upper GI endoscopy was accomplished without difficulty. The patient tolerated the procedure well. Scope In: 5:14:27 PM Scope Out: 5:27:19 PM Total Procedure Duration Time 0 hours 12 minutes 52 seconds Findings: No gross lesions were noted in the lower third of the esophagus. Many non-bleeding linear gastric ulcers with no stigmata of bleeding were found in the gastric body. The largest lesion was 6 mm in largest dimension. Many non-bleeding cratered duodenal ulcers with no stigmata of bleeding were found in the entire duodenum. Impression: - No gross lesions in the lower third of the esophagus. - Non-bleeding gastric ulcers with no stigmata of bleeding. - Non-bleeding duodenal ulcers with no stigmata of bleeding. - No specimens collected. Recommendation: - Return patient to ICU for ongoing care. - Continue present medications. Procedure Code(s): --- Professional --- 65557, Small intestinal endoscopy, enteroscopy beyond second portion of duodenum, not including ileum; diagnostic, including collection of specimen(s) by brushing or washing, when performed (separate procedure) CPT copyright 2021 [employer]. All rights reserved. The codes documented in this report are preliminary and upon interior design faculty member review may be revised to meet current compliance requirements. Jeffery Mcrae DO 05/23/2025 7:32:57 AM This report has been signed electronically. Number of Addenda: 0 Note Initiated On: 05/22/2025 5:06 PM
--- NOTE | 2025-05-23 07:37 | PCM.PN.HOSP ---
Reason for Visit Chief Complaint: altered level of consciousness. Subjective Subjective Still requiring ventilator still on norepinephrine. Objective Data Objective Data Vital Signs: Vital Signs Temp Pulse Resp BP Pulse Ox O2 Del Method O2 Flow Rate 37.4 C H 59 L 16 100/59 L 94 Mechanical Ventilator 60 05/23/25 04:00 05/23/25 07:00 05/23/25 07:00 05/23/25 07:00 05/23/25 07:00 05/23/25 07:00 05/21/25 18:45 FiO2 45 05/23/25 07:00 Oxygen Flow Rate (L/min) 60 Oxygen Delivery Method Mechanical Ventilator Weight: 81.8 kg Body Mass Index (BMI) 29.9 Intake & Output: Intake and Output for Last 24 Hours 05/21/25 05/22/25 05/23/25 23:59 23:59 23:59 Intake Total 3304.67 / 3333.77 1809.42 / 1836.02 270.95 / 270.95 Output Total 150 / 450 1250 / 1575 425 / 425 Balance 3154.67 / 2883.77 559.42 / 261.02 -154.05 / -154.05 Lab / Micro Data 05/23/25 03:55 05/23/25 03:55 Labs: Laboratory Results - last 24 hr 05/22/25 12:20: Hgb 7.8 L, Hct 25.0 L 05/23/25 03:55: WBC 13.9 H, RBC 3.14 L, Hgb 7.2 L, Hct 24.0 L, MCV 76.4 L, MCH 22.9 L, MCHC 30.0 L, RDW Std Deviation 66.5 H, RDW Coeff of Federico 24.9 H, Plt Count 239, MPV 9.9, Immature Gran % (Auto) GARMENT EXAMINER, Neut % (Auto) GARMENT EXAMINER, Lymph % (Auto) GARMENT EXAMINER, [place] % (Auto) GARMENT EXAMINER, Eos % (Auto) GARMENT EXAMINER, Baso % (Auto) GARMENT EXAMINER, Absolute Neuts (auto) 11.6 H, Absolute Lymphs (auto) 1.32, Nucleated RBC % 0.8, Differential Comment , Plt Morphology Comment LARGE, Polychromasia 1+, Anisocytosis 2+, Macrocytosis 1+, Ovalocytes RARE, Sodium 146 H, Potassium 3.8, Chloride 118 H, Carbon Dioxide 17.8 L, Anion Gap 10, BUN 42 H, Creatinine 1.98 H, Estim Creat Clear Calc 31.52 L, Est GFR (MDRD) Non-Af 28 L, BUN/Creatinine Ratio 21.0 H, Glucose 88, Calcium 7.6 Micro: Microbiology 05/21/25 14:15 Sputum, Induced/Lukens Gram Stain - Final 05/21/25 17:40 Urine Catheter - Fiore Urine Culture - Preliminary Gram negative grace ABG Data ABG results: ABG 05/23/25 04:45 Specimen Type ART Sample Site L Radial pH 7.47 H Bicarbonate Actual 19.3 L Total CO2 20 Base Excess -4 L O2 Saturation 95 O2 % 45.0 ABG pCO2 26.6 L ABG pO2 67 L Alcon Test Positive Respiration Rate 16 O2 Delivery Device Adult Vent Vent Mode AC Tidal Volume 450.0 POC PEEP 5 Radiography Diagnostic Testing: Radiology Impression Chest X-Ray 05/23/25 05:30 IMPRESSION: Tubes and lines in position. Bilateral infiltrate and consolidation with a moderate left effusion, similar to the prior. A component of CHF is not excluded. Reading Location: [facility] Physical Exam Const Constitutional Narrative: Intubated. Sedated. Opens eyes to voice. Resp Resp Narrative: Coarse breath sounds bilaterally Cardio regular rate, regular rhythm, S1 normal heart sound, S2 normal heart sound and no murmurs GI normal to inspection, nondistended, normoactive bowel sounds, soft to palpation, non-tender and non-distended Neuro Sensorium / Orientation: awake and alert Assessment & Plan Assessment/Plan (1) Shock: PLAN: Undifferentiated at this time. Concern for hemorrhagic plus minus septic shock. Within normal EF cardiogenic ruled out. Right IJ triple-lumen catheter placed. Patient started on norepinephrine. Not a candidate for 30 cc/kg of IVF given CHF. Follow up cultures. Possible UTI with abnormal UA, but UCx showing only 1-10k organisms at this time. Started on empiric antibiotics w pip/tazo and vancomycin Urine culture showing E. coli, pansensitive. Will continue with broad-spectrum antibiotics at least for another 24 hours and if no other culture results are positive then can may consider de-escalation at that time. (2) Acute hypoxemic respiratory failure: PLAN: CHF +/- pneumonia Intubated due to concern for on pending airway collapse given her numerous severe medical issues that are coalescing at present. On empiric antibiotic Unable to diurese at this time given shock. (3) (HFpEF) heart failure with preserved ejection fraction: PLAN: Acute and ongoing EF noted as normal. Grossly normal EF on POCUS exam. Cannot rule out high-output failure due to severe anemia. Started on furosemide 60 mg daily. (4) Atrial fibrillation with RVR: PLAN: Improved new diagnosis but unclear how new this processes. Unable to anticoagulate due to anemia. May be exacerbated due to the severity of her underlying illnesses. (5) Acute blood loss anemia: PLAN: Unclear how long the patient has been anemic. Though looking back at her labs, patient hemoglobin of 13 on January 18 and then had hemoglobin of 7.6 on January 22 of this year. Her admission hemoglobin was 3.6. Transfused 4 units packed red blood cells, went up to 8, since drifted down to 7.2. Hold transfusion for now. Monitor. on IV PPI B12, folate, TSH WNL. Low iron and ferritin Received IV iron 05/22 EGD 05/22 unremarkable. (6) Elevated troponin: PLAN: Mild elevation due to atrial fibrillation, respiratory failure, anemia. Demand ischemia from above. No gross wall abnormality on echo PLAN: Plan History of stroke: Patient not on any antiplatelet or any anticoagulation medications. Does have right-sided hemiparesis Hypertension: Holding off on amlodipine, carvedilol and hydralazine given shock. VTE prophylaxis with SCDs CODE STATUS: Addressed with the patient and her family. Patient is full code. Charges/Coding Visit Charges Inpatient E&M: 90849 Subs Hosp L2
[2025-05-23] MEDS: Propofol 10MG/Ml 1,000 MG/100 ML Bottle 9.7 MG CONT INF ×2 (08:00→15:51)
[2025-05-23] MEDS: Pantoprazole Sodium 40 MG in 0.9% Normal Saline (100mL MB+) 100 ML 300 MG IV ×2 (09:26→21:22)
[2025-05-23] MEDS: Chlorhexidine 15 ML PO ×2 (09:28→21:24)
[2025-05-23] MEDS: CHLORHEXIDINE GLUC 2% CLOTH 1 EACH TOWELETTE TOPICAL (12:38)
--- NOTE | 2025-05-23 12:54 | PCM.PN.TICU ---
Objective Data Objective Data Vital Signs: Vital Signs Last response Temperature 37.4 C H 05/23/25 12:00 Temperature Source Core 05/23/25 12:00 Pulse Rate 68 05/23/25 12:00 Pulse Strength Weak (1+) 05/23/25 09:33 Respiratory Rate 16 05/23/25 12:00 Respiratory Effort Mechanically Ventilated 05/23/25 12:00 Respiratory Depth Normal 05/23/25 08:15 Respiratory Pattern Normal 05/23/25 11:07 Blood Pressure 96/56 L 05/23/25 12:00 Blood Pressure Mean 69 05/23/25 12:00 Blood Pressure Source Monitor 05/23/25 12:00 Blood Pressure Position Semi-Fowlers 05/22/25 19:00 Blood Pressure Location Right Forearm 05/22/25 19:00 Pulse Ox 96 05/23/25 12:00 Oxygen Delivery Method Mechanical Ventilator 05/23/25 12:00 Oxygen Flow Rate (L/min) 60 05/21/25 18:45 Fraction of Inspired Oxygen (FIO2) 40 05/23/25 12:00 I&O: I&O Last 24 Hours 05/22/25 05/23/25 05/23/25 23:59 11:59 23:59 Intake Total 927.57 / 1836.02 540.16 / 560.81 20.65 / 560.81 Output Total 450 / 1575 425 / 435 10 / 435 Balance 477.57 / 261.02 115.16 / 125.81 10.65 / 125.81 I&O: Total Stay 05/21/25 09:17 thru 05/23/25 12:00 Intake Total 5674.90 Output Total 1835 Balance 3839.90 Current Meds Ordered / Administered: Current meds ordered / Administered Generic Name Dose Route Start Last Admin Trade Name Freq PRN Reason Stop Dose Admin Acetaminophen 650 mg 05/21/25 12:35 Acetaminophen 325 Mg Tablet PO Q6H PRN PRN Pain 1-10 Or Fever >100.7 Chlorhexidine Gluconate 15 ml 05/22/25 10:00 05/23/25 09:28 Chlorhexidine 15 Ml PO 15 ml BID JOSÉ MIGUEL Administration Chlorhexidine Gluconate 1 each 05/22/25 10:00 05/23/25 12:38 Chlorhexidine Gluc 2% Cloth 1 Each Towelette TOPICAL 1 each DAILY JOSÉ MIGUEL Administration Furosemide 60 mg 05/23/25 12:50 Furosemide 100 Mg/10 Ml Vial IV DAILY JOSÉ MIGUEL Protocol Pantoprazole Sodium 40 mg/ 100 mls @ 300 mls/hr 05/21/25 12:35 05/23/25 09:47 Sodium Chloride IV Infused Q12 JOSÉ MIGUEL Infusion Sodium Chloride 250 mls @ 15 mls/hr 05/21/25 13:29 05/22/25 19:30 IV 0 mls/hr .[id number] PRN Infusion Saline Flush Sodium Chloride 250 mls @ 15 mls/hr 05/21/25 13:29 IV .[id number] PRN Additional IVPB Infusion Fentanyl 100 mls @ 5 mls/hr 05/21/25 13:35 05/23/25 12:00 CONT INF 100 mcg/hr UD JOSÉ MIGUEL 10 mls/hr Titration Protocol 50 MCG/HR Piperacillin Sod/Tazobactam 50 mls @ 12.5 mls/hr 05/21/25 14:00 05/23/25 09:44 Sod 3.375 gm/ Sodium Chloride IV Infused Q8 JOSÉ MIGUEL Infusion Vancomycin IV-PHARMACY TO DOSE 500 mls @ 250 mls/hr 05/21/25 13:36 1 each/ Sodium Chloride IV X1 PRN Rx to Dose Protocol Norepinephrine Bitartrate 8 mg 250 mls @ 9.375 mls/hr 05/21/25 13:40 05/23/25 12:00 / Sodium Chloride CONT INF 2 mcg/min .[id number] JOSÉ MIGUEL 3.8 mls/hr Titration Protocol 5 MCG/MIN Propofol 1,000 mg in 100 mls @ 4.83 mls/hr 05/21/25 14:50 05/23/25 12:00 Diprivan CONT INF 20 mcg/kg/min .Q12H JOSÉ MIGUEL 9.7 mls/hr Titration Protocol 10 MCG/KG/MIN Vancomycin HCl 1,000 mg/ 270 mls @ 250 mls/hr 05/22/25 15:30 05/22/25 16:19 Sodium Chloride IV Infused Q24H JOSÉ MIGUEL Infusion Enteral Nutritional Formula 1,000 mls @ 50 mls/hr 05/23/25 09:40 05/23/25 12:37 Vital Af 1.2 Aravind Liquid GT Not Given .Q20H JOSÉ MIGUEL Ondansetron HCl 4 mg 05/21/25 12:35 Ondansetron 4 Mg/2 Ml Vial IV Q8H PRN PRN NAUSEA/VOMITING Sodium Chloride 10 - 40 ml 05/21/25 13:29 05/23/25 03:56 0.9% Saline Lock 10 Ml Syringe IV 20 ml UD PRN Administration SALINE FLUSH Vancomycin Protocol 1 lab 05/23/25 14:00 Vancomycin Trough/Random Due MC 05/23/25 16:00 DAILY [facility] Lab / Micro Data 05/23/25 03:55 05/23/25 03:55 Labs: Laboratory Results - last 24 hr 05/23/25 03:55: WBC 13.9 H, RBC 3.14 L, Hgb 7.2 L, Hct 24.0 L, MCV 76.4 L, MCH 22.9 L, MCHC 30.0 L, RDW Std Deviation 66.5 H, RDW Coeff of Federico 24.9 H, Plt Count 239, MPV 9.9, Immature Gran % (Auto) BRANCH ACCOUNT MANAGER, Neut % (Auto) BRANCH ACCOUNT MANAGER, Lymph % (Auto) BRANCH ACCOUNT MANAGER, [place] % (Auto) BRANCH ACCOUNT MANAGER, Eos % (Auto) BRANCH ACCOUNT MANAGER, Baso % (Auto) BRANCH ACCOUNT MANAGER, Absolute Neuts (auto) 11.6 H, Absolute Lymphs (auto) 1.32, Nucleated RBC % 0.8, Differential Comment , Plt Morphology Comment LARGE, Polychromasia 1+, Anisocytosis 2+, Macrocytosis 1+, Ovalocytes RARE, Sodium 146 H, Potassium 3.8, Chloride 118 H, Carbon Dioxide 17.8 L, Anion Gap 10, BUN 42 H, Creatinine 1.98 H, Estim Creat Clear Calc 31.52 L, Est GFR (MDRD) Non-Af 28 L, BUN/Creatinine Ratio 21.0 H, Glucose 88, Calcium 7.6 Micro: Microbiology 05/21/25 17:40 Urine Catheter - Fiore Urine Culture - Final Escherichia coli 05/21/25 14:15 Sputum, Induced/Lukens Gram Stain - Final ABG Data ABG results: ABG 05/23/25 04:45 Specimen Type ART Sample Site L Radial pH 7.47 H Bicarbonate Actual 19.3 L Total CO2 20 Base Excess -4 L O2 Saturation 95 O2 % 45.0 ABG pCO2 26.6 L ABG pO2 67 L Alcon Test Positive Respiration Rate 16 O2 Delivery Device Adult Vent Vent Mode AC Tidal Volume 450.0 POC PEEP 5 Imaging Radiology Impression Chest X-Ray 05/23/25 05:30 IMPRESSION: Tubes and lines in position. Bilateral infiltrate and consolidation with a moderate left effusion, similar to the prior. A component of CHF is not excluded. [facility] Assessment and Plan . Assessment and plan: 1. Acute hypoxemic respiratory failure: ? 2/2 CHF(BNP very high on admit). Vent check made //5. Start diuresis. SAT and SBT today. 2. GI bleed: s/p 4 units. EGD 05/22 showed non bleeding gastric/duod ulcers. Continue PPI 3. Acute Blood Loss Anemia: s/p 4 units. H/H relatively stable. Will follow. 4. Shock: Suspect hypovolemic on admit though likely sedation effect at current. Lift sedation to assess if BP improves. 5. CHF exac: Globally volume overloaded. EF noted to be normal. BNP extremely high. Given improved BP, will start diuresis. 6. CAP: ?. Patchy central appearing infiltrates. Suspect CHF. On antibxs. Will assess to see if improves with diuresis. 7. UTI: Ecoli. Swartz sensitive. Continue antibxs. 8. Afib: Rate controlled at current 9. RAMEZ: Some improvement in Cr. Today. Will follow 10. NAGMA: 2/2 NS. Will follow 11. FEN: TFs soon if not extubated. 12. PX: SCDs d/w brother at bedside, Sadi Andrade MD cc time 50 minutes entire encounter done via telemedicine Physical Exam Narrative intubated/sedated, awakens when name called pupils:= ETT in place CV: RRR chest: CTA B except mild crackles in bases Abd: soft, nt, +bs Ext: no c/c, ++ Edema Subjective Subjective chart reviewed. Pressor req better. Desats with movement
[2025-05-23 13:58] LABS: Magnesium 2.5 mg/dL (1.5-2.2)
[2025-05-23 15:59] LABS: Vancomycin, Trough Level 20.8 ug/mL (5.0-15.0)
[2025-05-23] MEDS: Vital AF 1.2 Cal Liquid 1,000 ML 20 ML GT (17:41)
--- NOTE | 2025-05-23 18:22 | PCM.RX.CS ---
Consult Antibiotic Management Pharmacy has been consulted to manage selected antibiotic: Vancomycin Type of Intervention Type of Consult: Follow-up Labs Labs: Vancomycin Trough 20.8 ug/mL (5.0-15.0) H 05/23/25 15:20 Microbiology Microbiology: Microbiology 05/21/25 17:40 Urine Catheter - Fiore Urine Culture - Final Escherichia coli 05/21/25 14:15 Sputum, Induced/Lukens Gram Stain - Final Goal Trough Goal Trough: 15-20 mcg/mL Pharmacy Plan for Drug Dosing Pharmacy Plan for Drug Dosing: VANCOMYCIN LEVEL RECEIVED Current Vancomycin Dose: 1000mg IV Q24h Number of Doses Received: 2 (initial + 1 scheduled) Vancomycin Level: 20.8 Hours Since Last Dose: 24hr Renal Function: scr 1.98/ crcl 31 mL/min Renal Function Trend: improving SCr since initiation of vancomycin Lab/Micro: BCx/ SCx pending, UCx growing e.coli spp Vancomycin Plan/Comments: patient had a trough drawn which resulted in a value of 20.8 (goal 15-20). Patient's trough is above therapeutic goal. Will hold vancomycin and recheck a trough in 12 hours. Will resume vancomycin once trough is <20 per protocol Pending Level: *RANDOM* 05/24/25 @0300 Pharmacy Service will continue to monitor and adjust dosing as required.
[2025-05-23 18:47] LABS: Anion Gap 13 (5-15); BUN 39 mg/dL (4-19); BUN/Creat Ratio 19.5 RATIO (10-20); Calcium,Total 7.7 mg/dL (7.6-11.0); Carbon Dioxide 18.3 mmol/L (21.0-32.0); Chloride 116 mmol/L (98-108); Estimated Creatinine Clearance 31.05 ml/min (50-250); Glucose 77 mg/dL (70-99); Magnesium 2.6 mg/dL (1.5-2.2); Potassium 3.6 mmol/L (3.3-5.1)
[2025-05-23] MEDS: 0.9% Normal Saline (250mL Bag) 250 ML 15 ML IV (21:22)
--- NOTE | 2025-05-23 23:26 | NURSING ---
[facility] output from june. Irrigation did not resolve issue. When repositioning patient, I noticed that her bed, linens, and brief were wet. Attempted to irrigate june but I twas clogged. Removed old june and placed new one. New june is patent and draining urine.
[2025-05-24] VITALS (39 sets, daily range): BP systolic 88–112; BP diastolic 52–76; PULSE 63–108; RESP 11–23; TEMP 36.8–38.3; O2SAT 90–97; BMI 30.6
[2025-05-24] MEDS: fentaNYL drip 100 ML 10 MCG CONT INF (02:00)
[2025-05-24] MEDS: Propofol 10MG/Ml 1,000 MG/100 ML Bottle 9.7 MG CONT INF (02:02)
[2025-05-24] MEDS: 0.9% Saline Lock 10 ML Syringe IV ×4 (02:12→21:48)
[2025-05-24 03:37] LABS: Hematocrit 25.8 % (37-47); Hemoglobin 7.5 g/dL (12.0-15.0); Immature Granulocytes Count 0.080 X10^3/uL (0.0-0.0); Mean Corp Hgb Conc 29.1 g/dL (32-36); Mean Corpuscular Volume 78.7 fL (81-99); Mean Platelet Vol. 9.8 fl (6.2-12.0); NRBC Flagged by Analyzer 0.6 % (0-5); POSITIVE MORPHOLOGY YES; Platelet Count 227 K/mm3 (150-450); RBC Distribution Width CV 26.0 % (11.6-14.6); RBC Distribution Width SD 71.7 fl (35.1-43.9); Red Blood Count 3.28 M/mm3 (4.2-5.4); White Blood Count 12.5 K/mm3 (4.4-11.0)
[2025-05-24 03:46] LABS: Differential Indicated SCAN CRITERIA MET
[2025-05-24 04:22] LABS: Vancomycin, Random Level 16.9 ug/mL (0.0-15.0)
[2025-05-24 04:24] LABS: Anion Gap 12 (5-15); BUN 40 mg/dL (4-19); BUN/Creat Ratio 19.7 RATIO (10-20); Calcium,Total 7.7 mg/dL (7.6-11.0); Carbon Dioxide 19.5 mmol/L (21.0-32.0); Chloride 117 mmol/L (98-108); Estimated Creatinine Clearance 31.05 ml/min (50-250); Glucose 105 mg/dL (70-99); Potassium 3.3 mmol/L (3.3-5.1)
[2025-05-24] MEDS: Vancomycin HCl 750 MG in 0.9% Normal Saline (250mL Bag) 250 ML 250 MG IV (04:39)
--- NOTE | 2025-05-24 04:39 | PCM.RX.CS ---
Consult Antibiotic Management Pharmacy has been consulted to manage selected antibiotic: Vancomycin Type of Intervention Type of Consult: Follow-up Labs Labs: Sodium 148 mmol/L (133-145) H 05/24/25 03:10 Potassium 3.3 mmol/L (3.3-5.1) 05/24/25 03:10 Chloride 117 mmol/L (98-108) H 05/24/25 03:10 Carbon Dioxide 19.5 mmol/L (21.0-32.0) L 05/24/25 03:10 Anion Gap 12 (5-15) 05/24/25 03:10 BUN 40 mg/dL (4-19) H 05/24/25 03:10 Creatinine 2.01 mg/dL (0.70-1.20) H 05/24/25 03:10 Est GFR (MDRD) Non-Af 28 (>60) L 05/24/25 03:10 BUN/Creatinine Ratio 19.7 RATIO (10-20) 05/24/25 03:10 Glucose 105 mg/dL (70-99) H 05/24/25 03:10 Vancomycin Trough 20.8 ug/mL (5.0-15.0) H 05/23/25 15:20 Random Vancomycin 16.9 ug/mL (0.0-15.0) H 05/24/25 03:10 Microbiology Microbiology: Microbiology 05/21/25 17:40 Urine Catheter - Fiore Urine Culture - Final Escherichia coli 05/21/25 14:15 Sputum, Induced/Lukens Gram Stain - Final Dosing Weight Weight used for dosin.8 kg Estimated Creatinine Clearance Estimated Creatinine Clearance: 31 Goal Trough Goal Trough: 15-20 mcg/mL Pharmacy Plan for Drug Dosing Pharmacy Plan for Drug Dosing: Vancomycin random level was back within the target range at 16.9. Per dosing calculator, a new dose of 750mg q24h should give an estimated new trough of 15.6. This will be started now, and a trough level will be drawn prior to the third dose of the new regimen. Pharmacy Service will continue to monitor and adjust dosing as required. Follow-Up Labs Follow-Up Labs: Trough: Vancomycin Date/Time Labs Ordered Labs to be done on [date and time ordered]: 05/26/25 @4602
[2025-05-24 04:51] LABS: Differential Comment SCANNED
[2025-05-24 04:52] LABS: Anisocytosis 2+; Hypochromasia 1+; Microcytosis 2+; Polychromasia 1+
[2025-05-24 04:53] LABS: Burr Cells 1+
[2025-05-24] MEDS: Piperacil/Tazobactam 3.375 GM in 0.9% Normal Saline (50mL MB+) 50 ML IV ×3 (05:03→21:36)
--- NOTE | 2025-05-24 05:19 | PCM.PN.INT ---
Assessment & Plan Assessment/Plan (1) Acute hypoxemic respiratory failure: (2) Elevated troponin: (3) Acute on chronic kidney failure: (4) New onset a-fib: (5) Shock: PLAN: Plan RECOMMENDATIONS: 1. Perform SAT/SBT to assess readiness for extubation. 2. Continue Levophed to maintain a mean arterial pressure at or above 65 mmHg. 3. Continue to monitor H&H. Goal to maintain a hemoglobin at or above 7 g/dL. 4. Continue PPI therapy. 5. Continue empiric antibiotics. 6. Diuresis as tolerated by hemodynamics and renal function. IMPRESSIONS: 1. Undifferentiated shock Most likely secondary to hemorrhagic etiology in the setting of acute blood loss anemia. However, the patient does have a normal ejection fraction on echocardiogram. Therefore I cannot definitively say that the infiltrates noted on chest x-ray are related to pulmonary edema in the setting of CHF. Therefore, empiric antimicrobials were initiated to cover for septic etiologies. There is some concern for underlying pneumonia versus urinary tract source of infection. The patient has been transfused packed red blood cells and remains on Levophed to maintain hemodynamic stability. The patient is status post endoscopic evaluation by GI with gastric ulcers and nonbleeding duodenal ulcers noted. The patient will be continued on PPI therapy. 2. Acute hypoxemic respiratory failure Clinical concern for underlying pneumonia. While there was initial concern for decompensated heart failure, the patient's echocardiogram revealed a normal ejection fraction. She was ultimately intubated on May 21. The patient will be continued on assist-control mode of mechanical ventilation, with a goal to wean FiO2 and PEEP to maintain saturations at or above 90%. Empiric antimicrobials will be continued, along with gentle diuresis, as tolerated by hemodynamics and renal function. Will plan to proceed with spontaneous awakening and breathing trials to assess readiness for extubation. 3. Acute on chronic kidney disease Most likely secondary to #1. Continue supportive care, including vasopressor support, if indicated. Avoid nephrotoxic medications. 4. Acute blood loss anemia Gastroenterology is following. Continue transfusion of blood products to achieve and maintain a hemoglobin at or above 7 g/dL. Continue PPI therapy as ordered. 5. Troponin elevation/atrial fibrillation Secondary to demand ischemia in the setting of #1. Echocardiogram revealed intact, normal systolic function. Given that the patient's rate is currently controlled, we will plan to continue supportive care. 6. History of CVA with residual deficits/hypertension/hyperlipidemia Complicates care, management, recovery and prognosis. Continue supportive measures as noted above. Continue to hold home antihypertensives. TIME: 33 minutes of critical care time, independent of procedures, was spent addressing the patient's undifferentiated shock, acute hypoxemic respiratory failure, acute on chronic kidney disease, acute blood loss anemia, review of all data and collaboration with the care team. Subjective Subjective The patient was seen and examined at the bedside this morning. Events from the last 24 hours have been reviewed. The patient currently has a low-grade fever and remains on Levophed at 5 mcg/min to maintain hemodynamic stability. Oxygen saturations are stable on assist-control mode of mechanical ventilation with an FiO2 requirement of 35%. The patient is currently documented to be overall net +5 L for the hospitalization. Hemoglobin this morning was noted to be 7.5 g/dL. Chemistry profile was notable for a bicarbonate of 20 with BUN of 40 and creatinine of 2.01. Objective Data Objective Data The patient's most recent lab work, culture data and imaging studies have all been personally reviewed. Surface echocardiogram demonstrated mild concentric LVH with an ejection fraction of 60%. Blood, urine and sputum cultures are pending. Vital Signs: Vital Signs Temp Pulse Resp BP Pulse Ox O2 Del Method O2 Flow Rate 98.5 F 63 12 99/64 94 Mechanical Ventilator 60 05/24/25 05:00 05/24/25 05:00 05/24/25 05:00 05/24/25 05:00 05/24/25 05:00 05/24/25 05:00 05/21/25 18:45 FiO2 40 05/24/25 05:00 Oxygen Flow Rate (L/min) 60 Oxygen Delivery Method Mechanical Ventilator Weight: 184 lb 1.376 oz Body Mass Index (BMI) 30.6 Intake & Output: Intake and Output for Last 24 Hours 05/22/25 05/23/25 05/24/25 23:59 23:59 23:59 Intake Total 1809.42 / 1836.02 1036.49 / 1155.59 562.60 / 562.60 Output Total 1250 / 1575 460 / 910 900 / 900 Balance 559.42 / 261.02 576.49 / 245.59 -337.40 / -337.40 Lab / Micro Data Attestation: I reviewed the patient's lab results. 05/24/25 03:10 05/24/25 03:10 Labs: Laboratory Results - last 24 hr 05/23/25 13:14: Magnesium 2.5 H 05/23/25 15:20: Vancomycin Trough 20.8 H 05/23/25 18:14: Sodium 147 H, Potassium 3.6, Chloride 116 H, Carbon Dioxide 18.3 L, Anion Gap 13, BUN 39 H, Creatinine 2.01 H, Estim Creat Clear Calc 31.05 L, Est GFR (MDRD) Non-Af 28 L, BUN/Creatinine Ratio 19.5, Glucose 77, Calcium 7.7, Magnesium 2.6 H 05/24/25 03:10: WBC 12.5 H, RBC 3.28 L, Hgb 7.5 L, Hct 25.8 L, MCV 78.7 L, MCH 22.9 L, MCHC 29.1 L, RDW Std Deviation 71.7 H, RDW Coeff of Federico 26.0 H, Plt Count 227, MPV 9.8, Immature Gran % (Auto) 0.600, Neut % (Auto) 82.2 H, Lymph % (Auto) 9.8 L, [place] % (Auto) 5.7, Eos % (Auto) 1.2, Baso % (Auto) 0.5, Absolute Neuts (auto) 10.3 H, Absolute Lymphs (auto) 1.23, Nucleated RBC % 0.6, Differential Comment SCANNED, Polychromasia 1+, Hypochromasia 1+, Anisocytosis 2+, Microcytosis 2+, [place] Cells 1+, Sodium 148 H, Potassium 3.3, Chloride 117 H, Carbon Dioxide 19.5 L, Anion Gap 12, BUN 40 H, Creatinine 2.01 H, Estim Creat Clear Calc 31.05 L, Est GFR (MDRD) Non-Af 28 L, BUN/Creatinine Ratio 19.7, Glucose 105 H, Calcium 7.7, Random Vancomycin 16.9 H Micro: Microbiology 05/21/25 17:40 Urine Catheter - Fiore Urine Culture - Final Escherichia coli 05/21/25 14:15 Sputum, Induced/Lukens Gram Stain - Final ABG Data ABG results: ABG 05/21/25 05/21/25 09:30 15:31 Specimen Type ART LJ Sample Site L Radial L Radial pH 7.46 H Bicarbonate Actual 16.4 L Total CO2 17 Base Excess -7 L O2 Saturation 97 O2 % 100.0 60.0 ABG pCO2 22.8 L ABG pO2 79 Alcon Test Positive VBG pH 7.41 VBG pO2 23 L VBG HCO3 20 L VBG Total CO2 21 L VBG O2 Sat (Calc) 42 L VBG Base Excess -4 L POC Mix VBG pCO2 Pt Tmp 32.4 L Respiration Rate 16 O2 Delivery Device NRB Adult Vent Vent Mode Not entered Tidal Volume 450.0 POC PEEP 5 Radiography Diagnostic Testing: Radiology Impression Chest X-Ray 05/23/25 05:30 IMPRESSION: Tubes and lines in position. Bilateral infiltrate and consolidation with a moderate left effusion, similar to the prior. A component of CHF is not excluded. Reading Location: [facility] Physical Exam Const Constitutional Narrative: Intubated, sedated and mechanically ventilated. No ventilator dyssynchrony. General Appearance: patient mechanically ventilated HEENT normocephalic and head/scalp atraumatic Mouth: endotracheal tube in place and OG tube in place Eyes PERRL, EOMs intact bilaterally and conjunctivae normal Neck supple General: trachea midline and CVC in place Chest inspection of chest normal Resp Auscultation: rales and diminished lung sounds Cardio S1 normal heart sound and S2 normal heart sound Rhythm: abnormal rhythm GI normal to inspection, nondistended, normoactive bowel sounds Extremity General Extremity: edema; Negative for clubbing Skin no rashes or lesions noted Neuro Neuro Narrative: Contracted right-sided extremities. Sensorium / Orientation: sedated on vent Charges/Coding Procedures Hospitalists Procedures: [id number] Critical Care 1st Hr
[2025-05-24] MEDS: CHLORHEXIDINE GLUC 2% CLOTH 1 EACH TOWELETTE TOPICAL (05:43)
[2025-05-24] MEDS: TITRATION PARAMETER CHANGE 1 EACH IV (05:43)
[2025-05-24 06:09] LABS: Allen Test Positive; Base Excess -2 mmol/L (-2 to +2); FI02 40.0; PEEP 5; PO2 60 mmHG (75-100); RR 12; SITE L Radial; SO2 90 % (95-99)
--- NOTE | 2025-05-24 06:10 | RAD_ITS ---
PROCEDURE: CHEST 1 VIEW (PORTABLE) 05/24/2025 REASON FOR EXAM: PNEUMONIA TECHNIQUE: Frontal view of the chest. COMPARISON: May 23, 2025 FINDINGS: There is an ET tube in position with its tip 3.5 cm above the level of the iraida. There is a central line in the right with its tip in the superior vena cava. An enteric tube is seen with its tip in the stomach. Heart size is mildly enlarged. Central vascularity appears increased. There are interstitial and alveolar infiltrates bilaterally with a component of the small left effusion, similar to the prior. There is no visible pneumothorax. There is no acute bony abnormality. RAD/Chest 1 View (Portable) IMPRESSION: Tubes and lines in position. Bilateral infiltrates with a small left effusion, unchanged. Reading Location: [facility]
--- NOTE | 2025-05-24 07:35 | PN.HOSP_ITS ---
Reason for Visit Chief Complaint: altered level of consciousness. Subjective Subjective No new events. Patient on spontaneous breathing trial today. Objective Data Objective Data Vital Signs: Vital Signs Temp Pulse Resp BP Pulse Ox O2 Del Method O2 Flow Rate 37.2 C 73 12 105/57 L 93 Mechanical Ventilator 60 05/24/25 07:00 05/24/25 07:00 05/24/25 07:00 05/24/25 07:00 05/24/25 07:00 05/24/25 07:00 05/21/25 18:45 FiO2 40 05/24/25 07:00 Oxygen Flow Rate (L/min) 60 Oxygen Delivery Method Mechanical Ventilator Weight: 83.5 kg Body Mass Index (BMI) 30.6 Intake & Output: Intake and Output for Last 24 Hours 05/22/25 05/23/25 05/24/25 23:59 23:59 23:59 Intake Total 1809.42 / 1836.02 1036.49 / 1155.59 886.10 / 886.10 Output Total 1250 / 1575 460 / 910 900 / 900 Balance 559.42 / 261.02 576.49 / 245.59 -13.90 / -13.90 Lab / Micro Data 05/24/25 03:10 05/24/25 03:10 Labs: Laboratory Results - last 24 hr 05/23/25 13:14: Magnesium 2.5 H 05/23/25 15:20: Vancomycin Trough 20.8 H 05/23/25 18:14: Sodium 147 H, Potassium 3.6, Chloride 116 H, Carbon Dioxide 18.3 L, Anion Gap 13, BUN 39 H, Creatinine 2.01 H, Estim Creat Clear Calc 31.05 L, E st GFR (MDRD) Non-Af 28 L, BUN/Creatinine Ratio 19.5, Glucose 77, Calcium 7.7, M agnesium 2.6 H 05/24/25 03:10: WBC 12.5 H, RBC 3.28 L, Hgb 7.5 L, Hct 25.8 L, MCV 78.7 L, MCH 22.9 L, MCHC 29.1 L, RDW Std Deviation 71.7 H, RDW Coeff of Federico 26.0 H, Plt Count 227, MPV 9.8, Immature Gran % (Auto) 0.600, Neut % (Auto) 82.2 H, Lymph % (Auto) 9.8 L, [place] % (Auto) 5.7, Eos % (Auto) 1.2, Baso % (Auto) 0.5, Absolute Neuts (auto) 10.3 H, Absolute Lymphs (auto) 1.23, Nucleated RBC % 0.6, Differential Comment SCANNED, Polychromasia 1+, Hypochromasia 1+, Anisocytosis 2+, Microcytosis 2+, [place] Cells 1+, Sodium 148 H, Potassium 3.3, Chloride 117 H, Carbon Dioxide 19.5 L, Anion Gap 12, BUN 40 H, Creatinine 2.01 H, Estim Creat Clear Calc 31.05 L, Est GFR (MDRD) Non-Af 28 L, BUN/Creatinine Ratio 19.7, G lucose 105 H, Calcium 7.7, Random Vancomycin 16.9 H Micro: Microbiology 05/21/25 15:15 Blood Culture (Wb) - Central Line Blood Culture - Preliminary No growth in 48 hours. 05/21/25 17:40 Urine Catheter - Fiore Urine Culture - Final Escherichia coli 05/21/25 14:15 Sputum, Induced/Lukens Gram Stain - Final ABG Data ABG results: ABG 05/24/25 06:05 Specimen Type ART Sample Site L Radial pH 7.38 Bicarbonate Actual 23.6 Total CO2 25 Base Excess -2 O2 Saturation 90 L O2 % 40.0 ABG pCO2 40.1 ABG pO2 60 L Alcon Test Positive Respiration Rate 12 O2 Delivery Device Adult Vent Vent Mode AC Tidal Volume 450.0 POC PEEP 5 Radiography Diagnostic Testing: Radiology Impression Chest X-Ray 05/24/25 06:10 IMPRESSION: Tubes and lines in position. Bilateral infiltrates with a small left effusion, unchanged. [facility] Exam Const Constitutional Narrative: Awake. Follows commands. Intubated. Resp Resp Narrative: Coarse breath sounds bilaterally Cardio regular rate, regular rhythm, S1 normal heart sound and S2 normal heart sound GI normal to inspection, nondistended, normoactive bowel sounds, soft to palpation, non-tender and non-distended Extremity normal to inspection, full ROM and no clubbing, cyanosis or edema Neuro Sensorium / Orientation: awake, alert and oriented to person Assessment & Plan Assessment/Plan (1) Shock: PLAN: Undifferentiated at this time. Concern for hemorrhagic plus minus septic shock. Within normal EF cardiogenic ruled out. Right IJ triple-lumen catheter placed. Patient started on norepinephrine. Not a candidate for 30 cc/kg of IVF given CHF. Follow up cultures. Possible UTI with abnormal UA, but UCx showing only 1-10k organisms at this time. Started on empiric antibiotics w pip/tazo and vancomycin Urine culture showing E. coli, pansensitive. Continue broad-spectrum antibiotics given the ongoing concern that patient may have pneumonia if pneumonia is deemed not the issue then antibiotics can likely be de-escalated to solely address the urinary tract infection. (2) Acute hypoxemic respiratory failure: PLAN: CHF +/- pneumonia Intubated due to concern for on pending airway collapse given her numerous severe medical issues that are coalescing at present. On empiric antibiotics Wean vent per pulmonary (3) (HFpEF) heart failure with preserved ejection fraction: PLAN: Acute and ongoing EF noted as normal. Grossly normal EF on POCUS exam. Cannot rule out high-output failure due to severe anemia. Started on furosemide 60 mg daily. (4) Atrial fibrillation with RVR: PLAN: Improved new diagnosis but unclear how new this processes. Unable to anticoagulate due to anemia. May be exacerbated due to the severity of her underlying illnesses. No chronotropic meds at this time given the shock. (5) Acute blood loss anemia: PLAN: Unclear how long the patient has been anemic. Though looking back at her labs, patient hemoglobin of 13 on January 18 and then had hemoglobin of 7.6 on January 22 of this year. Her admission hemoglobin was 3.6. Transfused 4 units packed red blood cells, went up to 8, since drifted down to 7.2. Hold transfusion for now. Monitor. on IV PPI B12, folate, TSH WNL. Low iron and ferritin Received IV iron 05/22 EGD 05/22 showed non-bleeding ulcers in the duodenum. (6) Elevated troponin: PLAN: Mild elevation due to atrial fibrillation, respiratory failure, anemia. Demand ischemia from above. No gross wall abnormality on echo PLAN: Plan History of stroke: Patient not on any antiplatelet or any anticoagulation medications. Does have right-sided hemiparesis Hypertension: Holding off on amlodipine, carvedilol and hydralazine given shock. VTE prophylaxis with SCDs CODE STATUS: Addressed with the patient and her family. Patient is full code. Charges/Coding Visit Charges Inpatient E&M: 81290 Subs Hosp L2
[2025-05-24] MEDS: Chlorhexidine 15 ML PO ×2 (09:18→21:51)
[2025-05-24] MEDS: Pantoprazole Sodium 40 MG in 0.9% Normal Saline (100mL MB+) 100 ML 300 MG IV ×2 (09:18→21:49)
[2025-05-24] MEDS: Potassium Chloride 20mEq/100mL 20 MEQ/100 ML IV.SOLN. 100 MEQ IV BOLUS ×2 (09:53→11:07)
[2025-05-24 10:01] LABS: Magnesium 2.5 mg/dL (1.5-2.2)
--- NOTE | 2025-05-24 12:48 | CHAPLAIN ---
Type of Pastoral Visit ___ Initial Visit _x__ Follow-up Visit ___ On-call Visit ___ General Patient Visit ___ Spiritual Assessment ___ Family Conference ___ Bereavement ___ Rapid Response ___ Code Blue ___ Other (describe below) Pastoral Care Referral From ___ Patient _x__ Family ___ Nurse ___ Physician ___ Finance Attorney ___ Social Media Director ___ Other (describe below) Sacrament/Intervention _x__ Active listening ___ Anointing ___ Tenriism ___ Bereavement ___ Communion ___ Emelina exploration ___ ___ Life review ___ Prayer ___ Reconciliation ___ Sacrament of Sick _x__ Supportive presence ___ Wedding ___ Other (describe below) Pastoral Comments met with brother of the patient as he is sitting in the waiting area; patient was thought to have been extubated today but recent decision was to forego that until tomorrow; brother is patient while hopeful for better outcomes; pt denies having needs or concerns but expresses thanks for being 'checked on'
[2025-05-24] MEDS: Vital AF 1.2 Cal Liquid 1,000 ML 35 ML GT (14:19)
[2025-05-24] MEDS: Propofol 10MG/Ml 1,000 MG/100 ML Bottle 2.5 MG CONT INF (15:15)
[2025-05-24] MEDS: fentaNYL drip 100 ML 12.5 MCG CONT INF (17:00)
[2025-05-24] MEDS: 0.9% Normal Saline (250mL Bag) 250 ML 15 ML IV (21:49)
[2025-05-25] VITALS (37 sets, daily range): BP systolic 87–116; BP diastolic 51–78; PULSE 63–108; RESP 12–16; TEMP 36.9–37.8; O2SAT 88–97; BMI 31.2
[2025-05-25] MEDS: Norepinephrine 8 MG in 0.9% Normal Saline (250mL Bag) 242 ML 9.4 MG CONT INF (00:10)
[2025-05-25] MEDS: fentaNYL drip 100 ML 10 MCG CONT INF (02:00)
[2025-05-25] MEDS: CHLORHEXIDINE GLUC 2% CLOTH 1 EACH TOWELETTE TOPICAL (02:12)
[2025-05-25 03:58] LABS: Hematocrit 26.1 % (37-47); Hemoglobin 7.5 g/dL (12.0-15.0); Immature Granulocytes Count 0.100 X10^3/uL (0.0-0.0); Mean Corp Hgb Conc 28.7 g/dL (32-36); Mean Corpuscular Volume 79.3 fL (81-99); Mean Platelet Vol. 9.2 fl (6.2-12.0); NRBC Flagged by Analyzer 0.4 % (0-5); POSITIVE MORPHOLOGY YES; Platelet Count 207 K/mm3 (150-450); RBC Distribution Width CV 28.0 % (11.6-14.6); RBC Distribution Width SD 75.4 fl (35.1-43.9); Red Blood Count 3.29 M/mm3 (4.2-5.4); White Blood Count 12.1 K/mm3 (4.4-11.0)
[2025-05-25] MEDS: Vancomycin HCl 750 MG in 0.9% Normal Saline (250mL Bag) 250 ML 250 MG IV (04:07)
[2025-05-25] MEDS: 0.9% Saline Lock 10 ML Syringe IV ×2 (04:15→21:20)
[2025-05-25 04:25] LABS: Anion Gap 11 (5-15); BUN 40 mg/dL (4-19); BUN/Creat Ratio 20.5 RATIO (10-20); Calcium,Total 7.6 mg/dL (7.6-11.0); Carbon Dioxide 21.7 mmol/L (21.0-32.0); Chloride 116 mmol/L (98-108); Estimated Creatinine Clearance 32.33 ml/min (50-250); Glucose 130 mg/dL (70-99); Potassium 3.5 mmol/L (3.3-5.1)
[2025-05-25 04:50] LABS: Differential Indicated SCAN CRITERIA MET
[2025-05-25 04:55] LABS: Basophilic Stippling RARE; Polychromasia 1+
[2025-05-25 05:03] LABS: Microcytosis RARE
[2025-05-25 05:04] LABS: Anisocytosis 1+; Differential Comment SCANNED
[2025-05-25] MEDS: Piperacil/Tazobactam 3.375 GM in 0.9% Normal Saline (50mL MB+) 50 ML IV ×3 (05:18→21:19)
--- NOTE | 2025-05-25 07:20 | PCM.PN.HOSP ---
Reason for Visit Chief Complaint: altered level of consciousness. Subjective Subjective extubated today. Objective Data Objective Data Vital Signs: Vital Signs Temp Pulse Resp BP Pulse Ox O2 Del Method O2 Flow Rate 37.7 C H 65 12 108/62 95 Mechanical Ventilator 60 05/25/25 06:00 05/25/25 07:01 05/25/25 07:01 05/25/25 06:00 05/25/25 07:01 05/25/25 06:00 05/21/25 18:45 FiO2 35 05/25/25 07:01 Oxygen Flow Rate (L/min) 60 Oxygen Delivery Method Mechanical Ventilator Weight: 85.1 kg Body Mass Index (BMI) 31.2 Intake & Output: Intake and Output for Last 24 Hours 05/23/25 05/24/25 05/25/25 23:59 23:59 23:59 Intake Total 1036.49 / 1155.59 2046.13 / 2148.63 1006.25 / 1006.25 Output Total 460 / 910 3200 / 3200 450 / 450 Balance 576.49 / 245.59 -1153.87 / -1051.37 556.25 / 556.25 Lab / Micro Data 05/25/25 03:47 05/25/25 03:47 Labs: Laboratory Results - last 24 hr 05/24/25 03:10: Phosphorus 4.5, Magnesium 2.5 H 05/25/25 03:47: WBC 12.1 H, RBC 3.29 L, Hgb 7.5 L, Hct 26.1 L, MCV 79.3 L, MCH 22.8 L, MCHC 28.7 L, RDW Std Deviation 75.4 H, RDW Coeff of Federico 28.0 H, Plt Count 207, MPV 9.2, Immature Gran % (Auto) 0.800, Neut % (Auto) 82.3 H, Lymph % (Auto) 8.4 L, [place] % (Auto) 6.4, Eos % (Auto) 1.9, Baso % (Auto) 0.2, Absolute Neuts (auto) 10.0 H, Absolute Lymphs (auto) 1.02, Nucleated RBC % 0.4, Differential Comment SCANNED, Polychromasia 1+, Basophilic Stippling RARE, Anisocytosis 1+, Microcytosis RARE, Sodium 149 H, Potassium 3.5, Chloride 116 H, Carbon Dioxide 21.7, Anion Gap 11, BUN 40 H, Creatinine 1.95 H, Estim Creat Clear Calc 32.33 L, Est GFR (MDRD) Non-Af 29 L, BUN/Creatinine Ratio 20.5 H, Glucose 130 H, Calcium 7.6 Micro: Microbiology 05/21/25 14:15 Sputum, Induced/Lukens Gram Stain - Final 05/21/25 14:15 Sputum, Induced/Lukens Respiratory Culture - Final 05/21/25 15:15 Blood Culture (Wb) - Central Line Blood Culture - Preliminary No growth in 48 hours. 05/21/25 17:40 Urine Catheter - Fiore Urine Culture - Final Escherichia coli Physical Exam Const alert Constitutional Narrative: on nasal canula. no respiratory distress. no conversational dyspnea. HEENT head/scalp atraumatic and moist oral mucous membranes Resp normal respiratory effort and no retractions Resp Narrative: coarse breath sounds bilaterally. Cardio regular rate, regular rhythm, S1 normal heart sound and S2 normal heart sound GI normal to inspection, nondistended, normoactive bowel sounds, soft to palpation, non-tender and non-distended Extremity General Extremity: edema bilateral lower extremity Details: mild Neuro Sensorium / Orientation: awake and alert Assessment & Plan Assessment/Plan (1) Shock: PLAN: Undifferentiated at this time. Concern for hemorrhagic plus minus septic shock. Within normal EF cardiogenic ruled out. Right IJ triple-lumen catheter placed. Patient continued on norepinephrine. Not a candidate for 30 cc/kg of IVF given CHF. Started on empiric antibiotics w pip/tazo and vancomycin Urine culture showing E. coli, pansensitive. Continue broad-spectrum antibiotics given the ongoing concern that patient may have pneumonia if pneumonia is deemed not the issue then antibiotics can likely be de-escalated to solely address the urinary tract infection. (2) Acute hypoxemic respiratory failure: PLAN: CHF +/- pneumonia Intubated due to concern for on pending airway collapse given her numerous severe medical issues that are coalescing at present. On empiric antibiotics Wean vent per pulmonary (3) (HFpEF) heart failure with preserved ejection fraction: PLAN: Acute and ongoing EF noted as normal. Cannot rule out high-output failure due to severe anemia. Started on furosemide 60 mg daily. (4) Atrial fibrillation with RVR: PLAN: Improved new diagnosis but unclear how new this processes. Unable to anticoagulate due to anemia. May be exacerbated due to the severity of her underlying illnesses. No chronotropic meds at this time given the shock and ongoing need for pressors. (5) Acute blood loss anemia: PLAN: Unclear how long the patient has been anemic. Though looking back at her labs, patient hemoglobin of 13 on January 18 and then had hemoglobin of 7.6 on January 22 of this year. Her admission hemoglobin was 3.6. Transfused 4 units packed red blood cells, went up to 8, since drifted down to 7.2. Hold transfusion for now. Monitor. on IV PPI B12, folate, TSH WNL. Low iron and ferritin Received IV iron 05/22 EGD 05/22 showed non-bleeding ulcers in the duodenum. (6) Elevated troponin: PLAN: Mild elevation due to atrial fibrillation, respiratory failure, anemia. Demand ischemia from above. No gross wall abnormality on echo No additional cardiac work up at this time. PLAN: Plan History of stroke: Patient not on any antiplatelet or any anticoagulation medications. Does have right-sided hemiparesis Hypertension: Holding off on amlodipine, carvedilol and hydralazine given shock. VTE prophylaxis with SCDs CODE STATUS: Addressed with the patient and her family. Patient is full code. Charges/Coding Visit Charges Inpatient E&M: 18297 Subs Hosp L2
--- NOTE | 2025-05-25 07:32 | PCM.PN.INT ---
Assessment & Plan Assessment/Plan (1) Acute hypoxemic respiratory failure: (2) Elevated troponin: (3) Acute on chronic kidney failure: (4) New onset a-fib: (5) Shock: PLAN: Plan RECOMMENDATIONS: 1. Proceed with a trial of extubation this morning. Once extubated, wean supplemental oxygen to maintain saturations at or above 90%. 2. Continue antimicrobial therapy. 3. Continue to monitor H&H. Transfuse if hemoglobin drops below 7 g/dL. 4. Continue to wean Levophed to maintain mean arterial pressure at or above 65 mmHg. 5. Continue PPI therapy. 6. Speech therapy evaluation prior to consideration for advancement of diet. 7. PT/OT evaluations. IMPRESSIONS: 1. Undifferentiated shock Improving. Most likely secondary to hemorrhagic etiology in the setting of acute blood loss anemia. However, the patient does have a normal ejection fraction on echocardiogram. Therefore I cannot definitively say that the infiltrates noted on chest x-ray are related to pulmonary edema in the setting of CHF. Therefore, empiric antimicrobials were initiated to cover for septic etiologies, as there is some concern for underlying pneumonia. The patient has been transfused packed red blood cells and remains on low-dose Levophed to maintain hemodynamic stability. The patient is status post endoscopic evaluation by GI with gastric ulcers and nonbleeding duodenal ulcers noted. The patient will be continued on PPI therapy. 2. Acute hypoxemic respiratory failure Clinical concern for underlying pneumonia. While there was initial concern for decompensated heart failure, the patient's echocardiogram revealed a normal ejection fraction. She was ultimately intubated on May 21, due to her inability to compensate from a respiratory perspective for her underlying metabolic acidosis. With supportive care and antimicrobials, the patient has improved from a respiratory perspective. She passed her spontaneous breathing trial this morning. Therefore, we will plan to proceed with a trial of extubation. Once extubated, recommend weaning supplemental oxygen to maintain saturations at or above 90%. 3. Acute on chronic kidney disease Most likely secondary to #1. Continue supportive care, including vasopressor support, if indicated. Avoid nephrotoxic medications. 4. Acute blood loss anemia Gastroenterology is following. Continue transfusion of blood products to achieve and maintain a hemoglobin at or above 7 g/dL. Continue PPI therapy as ordered. 5. Troponin elevation/atrial fibrillation Secondary to demand ischemia in the setting of #1. Echocardiogram revealed intact, normal systolic function. Given that the patient's rate is currently controlled, we will plan to continue supportive care. 6. History of CVA with residual deficits/hypertension/hyperlipidemia Complicates care, management, recovery and prognosis. Continue supportive measures as noted above. Continue to hold home antihypertensives. TIME: 34 minutes of critical care time, independent of procedures, was spent addressing the patient's undifferentiated shock, acute hypoxemic respiratory failure, acute on chronic kidney disease, acute blood loss anemia, review of all data and collaboration with the care team. Subjective Subjective The patient was seen and examined at the bedside this morning. Events from the last 24 hours have been reviewed. At the present time, the patient has a low-grade fever and remains on low-dose Levophed to maintain hemodynamic stability. Her ventilator requirements are minimal with an FiO2 of 35% and PEEP of 5. The patient passed her spontaneous awakening trial this morning and subsequently completed a spontaneous breathing trial, without complication. She is alert and able to follow commands appropriately. She is currently documented to be overall net +3.8 L for the hospitalization. White blood cell count is stable at 12,000 with a hemoglobin of 7.5 g/dL. Creatinine is stable at 1.95. Objective Data Objective Data The patient's most recent lab work, culture data and imaging studies have all been personally reviewed. Surface echocardiogram demonstrated mild concentric LVH with an ejection fraction of 60%. Blood, urine and sputum cultures are pending. Vital Signs: Vital Signs Temp Pulse Resp BP Pulse Ox O2 Del Method O2 Flow Rate 99.9 F H 65 12 110/58 L 95 Mechanical Ventilator 60 05/25/25 06:00 05/25/25 07:01 05/25/25 07:01 05/25/25 07:00 05/25/25 07:01 05/25/25 07:00 05/21/25 18:45 FiO2 35 05/25/25 07:01 Oxygen Flow Rate (L/min) 60 Oxygen Delivery Method Mechanical Ventilator Weight: 187 lb 9.814 oz Body Mass Index (BMI) 31.2 Intake & Output: Intake and Output for Last 24 Hours 05/23/25 05/24/25 05/25/25 23:59 23:59 23:59 Intake Total 1036.49 / 1155.59 2046.13 / 2148.63 1325.65 / 1325.65 Output Total 460 / 910 3200 / 3200 450 / 450 Balance 576.49 / 245.59 -1153.87 / -1051.37 875.65 / 875.65 Lab / Micro Data Attestation: I reviewed the patient's lab results. 05/25/25 03:47 05/25/25 03:47 Labs: Laboratory Results - last 24 hr 05/24/25 03:10: Phosphorus 4.5, Magnesium 2.5 H 05/25/25 03:47: WBC 12.1 H, RBC 3.29 L, Hgb 7.5 L, Hct 26.1 L, MCV 79.3 L, MCH 22.8 L, MCHC 28.7 L, RDW Std Deviation 75.4 H, RDW Coeff of Federico 28.0 H, Plt Count 207, MPV 9.2, Immature Gran % (Auto) 0.800, Neut % (Auto) 82.3 H, Lymph % (Auto) 8.4 L, [place] % (Auto) 6.4, Eos % (Auto) 1.9, Baso % (Auto) 0.2, Absolute Neuts (auto) 10.0 H, Absolute Lymphs (auto) 1.02, Nucleated RBC % 0.4, Differential Comment SCANNED, Polychromasia 1+, Basophilic Stippling RARE, Anisocytosis 1+, Microcytosis RARE, Sodium 149 H, Potassium 3.5, Chloride 116 H, Carbon Dioxide 21.7, Anion Gap 11, BUN 40 H, Creatinine 1.95 H, Estim Creat Clear Calc 32.33 L, Est GFR (MDRD) Non-Af 29 L, BUN/Creatinine Ratio 20.5 H, Glucose 130 H, Calcium 7.6 Micro: Microbiology 05/21/25 14:15 Sputum, Induced/Lukens Gram Stain - Final 05/21/25 14:15 Sputum, Induced/Lukens Respiratory Culture - Final 05/21/25 15:15 Blood Culture (Wb) - Central Line Blood Culture - Preliminary No growth in 48 hours. 05/21/25 17:40 Urine Catheter - Fiore Urine Culture - Final Escherichia coli ABG Data ABG results: ABG 05/21/25 05/21/25 09:30 15:31 Specimen Type ART LJ Sample Site L Radial L Radial pH 7.46 H Bicarbonate Actual 16.4 L Total CO2 17 Base Excess -7 L O2 Saturation 97 O2 % 100.0 60.0 ABG pCO2 22.8 L ABG pO2 79 Alcon Test Positive VBG pH 7.41 VBG pO2 23 L VBG HCO3 20 L VBG Total CO2 21 L VBG O2 Sat (Calc) 42 L VBG Base Excess -4 L POC Mix VBG pCO2 Pt Tmp 32.4 L Respiration Rate 16 O2 Delivery Device NRB Adult Vent Vent Mode Not entered Tidal Volume 450.0 POC PEEP 5 Radiography Diagnostic Testing: Radiology Impression Chest X-Ray 05/23/25 05:30 IMPRESSION: Tubes and lines in position. Bilateral infiltrate and consolidation with a moderate left effusion, similar to the prior. A component of CHF is not excluded. Reading Location: [facility] Physical Exam Const Constitutional Narrative: Remains intubated mechanically ventilated. Currently tolerating spontaneous mode of mechanical ventilation. General Appearance: patient mechanically ventilated HEENT normocephalic and head/scalp atraumatic Mouth: endotracheal tube in place and OG tube in place Eyes PERRL, EOMs intact bilaterally and conjunctivae normal Neck supple General: trachea midline and CVC in place Chest inspection of chest normal Resp Auscultation: rales and diminished lung sounds Cardio S1 normal heart sound and S2 normal heart sound Rhythm: abnormal rhythm GI normal to inspection, nondistended, normoactive bowel sounds Extremity General Extremity: edema; Negative for clubbing Skin no rashes or lesions noted Neuro Neuro Narrative: Contracted right-sided extremities. Alert and able to follow simple commands appropriately. Charges/Coding Procedures Hospitalists Procedures: [id number] Critical Care 1st Hr
--- NOTE | 2025-05-25 09:16 | NURSING ---
0800 patient extubated by respiratory therapist. Patient tolerating well. copious mucoid secretions suctioned.
[2025-05-25] MEDS: Pantoprazole Sodium 40 MG in 0.9% Normal Saline (100mL MB+) 100 ML 300 MG IV ×2 (10:05→21:16)
--- NOTE | 2025-05-25 11:48 | CASEMGMT ---
RN SHWETA participated in interdisciplinary rounds. Pt has been extubated and is on O2 via NC. PT did not eval this date d/t recent extubation. TC to pt mother. She states they plan to take pt home without any issues. She states pt mostly uses transport chair and stands and pivots. She is aware PT was not able to eval today. Discussed home oxygen should pt need this upon dc. Pt has [facility] Community Plan and [facility] is provider for this, [facility] [place] Pt mother agreeable with [facility]. Green sheet on chart for this. Will follow therapy needs. Pt mother appreciative of the call.
[2025-05-25] MEDS: 0.45% Normal Saline 1,000 ML 75 ML IV (15:48)
[2025-05-25 21:13] LABS: Hematocrit 24.9 % (37-47); Hemoglobin 7.1 g/dL (12.0-15.0); Immature Granulocytes Count 0.060 X10^3/uL (0.0-0.0); Mean Corp Hgb Conc 28.5 g/dL (32-36); Mean Corpuscular Volume 80.3 fL (81-99); Mean Platelet Vol. 9.8 fl (6.2-12.0); NRBC Flagged by Analyzer 0.2 % (0-5); POSITIVE MORPHOLOGY YES; Platelet Count 182 K/mm3 (150-450); RBC Distribution Width CV 28.9 % (11.6-14.6); RBC Distribution Width SD 80.5 fl (35.1-43.9); Red Blood Count 3.10 M/mm3 (4.2-5.4); White Blood Count 8.0 K/mm3 (4.4-11.0)
[2025-05-25 21:15] LABS: Differential Indicated SCAN CRITERIA MET
[2025-05-25 22:28] LABS: AST(SGOT) 14 U/L (<=31); Alanine Aminotransfer ALT/SGPT 15 U/L (<=34); Albumin, Serum 2.4 g/dL (3.4-4.8); Alkaline Phosphatase 52 U/L (35-104); Anion Gap 11 (5-15); BUN 37 mg/dL (4-19); BUN/Creat Ratio 21.6 RATIO (10-20); Calcium,Total 7.6 mg/dL (7.6-11.0); Carbon Dioxide 21.4 mmol/L (21.0-32.0); Chloride 119 mmol/L (98-108); Estimated Creatinine Clearance 37.66 ml/min (50-250); Globulin 3.2 g/dL (2.2-4.2); Glucose 91 mg/dL (70-99); Magnesium 2.4 mg/dL (1.5-2.2); Potassium 3.6 mmol/L (3.3-5.1)
[2025-05-25 22:38] LABS: Differential Comment SCANNED
[2025-05-25 22:39] LABS: Anisocytosis 2+
[2025-05-25 22:40] LABS: Hypochromasia 1+; Polychromasia 1+
[2025-05-26] VITALS (17 sets, daily range): BP systolic 97–121; BP diastolic 54–77; PULSE 68–109; RESP 12–18; TEMP 36.7–37; O2SAT 91–98; BMI 30.7
[2025-05-26 04:50] LABS: Hematocrit 24.6 % (37-47); Hemoglobin 7.0 g/dL (12.0-15.0); Immature Granulocytes Count 0.050 X10^3/uL (0.0-0.0); Mean Corp Hgb Conc 28.5 g/dL (32-36); Mean Corpuscular Volume 80.7 fL (81-99); Mean Platelet Vol. 10.0 fl (6.2-12.0); NRBC Flagged by Analyzer 0.3 % (0-5); POSITIVE MORPHOLOGY YES; Platelet Count 173 K/mm3 (150-450); RBC Distribution Width CV 29.1 % (11.6-14.6); RBC Distribution Width SD 82.6 fl (35.1-43.9); Red Blood Count 3.05 M/mm3 (4.2-5.4); White Blood Count 8.0 K/mm3 (4.4-11.0)
[2025-05-26 04:53] LABS: Differential Indicated SCAN CRITERIA MET
[2025-05-26] MEDS: Vancomycin Trough/Random Due 1 LAB MC (05:08)
[2025-05-26] MEDS: 0.9% Saline Lock 10 ML Syringe IV ×4 (05:08→22:19)
[2025-05-26] MEDS: CHLORHEXIDINE GLUC 2% CLOTH 1 EACH TOWELETTE TOPICAL (05:09)
[2025-05-26] MEDS: 0.45% Normal Saline 1,000 ML 75 ML IV (05:09)
[2025-05-26] MEDS: Piperacil/Tazobactam 3.375 GM in 0.9% Normal Saline (50mL MB+) 50 ML IV ×3 (05:10→22:19)
[2025-05-26 05:14] LABS: Vancomycin, Trough Level 17.4 ug/mL (5.0-15.0)
[2025-05-26 05:15] LABS: Anion Gap 11 (5-15); BUN 35 mg/dL (4-19); BUN/Creat Ratio 22.4 RATIO (10-20); Calcium,Total 7.7 mg/dL (7.6-11.0); Carbon Dioxide 21.3 mmol/L (21.0-32.0); Chloride 119 mmol/L (98-108); Estimated Creatinine Clearance 41.33 ml/min (50-250); Glucose 79 mg/dL (70-99); Potassium 3.6 mmol/L (3.3-5.1)
--- NOTE | 2025-05-26 05:30 | PCM.RX.CS ---
Consult Antibiotic Management Pharmacy has been consulted to manage selected antibiotic: Vancomycin Type of Intervention Type of Consult: Follow-up Suspected Infection Suspected Infection: Pneumonia Labs Labs: Sodium 151 mmol/L (133-145) H 05/26/25 04:38 Potassium 3.6 mmol/L (3.3-5.1) 05/26/25 04:38 Chloride 119 mmol/L (98-108) H 05/26/25 04:38 Carbon Dioxide 21.3 mmol/L (21.0-32.0) 05/26/25 04:38 Anion Gap 11 (5-15) 05/26/25 04:38 BUN 35 mg/dL (4-19) H 05/26/25 04:38 Creatinine 1.54 mg/dL (0.70-1.20) H 05/26/25 04:38 Est GFR (MDRD) Non-Af 38 (>60) L 05/26/25 04:38 BUN/Creatinine Ratio 22.4 RATIO (10-20) H 05/26/25 04:38 Glucose 79 mg/dL (70-99) 05/26/25 04:38 Vancomycin Trough 17.4 ug/mL (5.0-15.0) H 05/26/25 04:38 Random Vancomycin 16.9 ug/mL (0.0-15.0) H 05/24/25 03:10 Microbiology Microbiology: Microbiology 05/21/25 14:15 Sputum, Induced/Lukens Gram Stain - Final 05/21/25 14:15 Sputum, Induced/Lukens Respiratory Culture - Final 05/21/25 15:15 Blood Culture (Wb) - Central Line Blood Culture - Preliminary No growth in 48 hours. 05/21/25 17:40 Urine Catheter - Fiore Urine Culture - Final Escherichia coli Dosing Weight Weight used for dosin kg Estimated Creatinine Clearance Estimated Creatinine Clearance: 41 Goal Trough Goal Trough: 15-20 mcg/mL Pharmacy Plan for Drug Dosing Pharmacy Plan for Drug Dosing: Vancomycin trough level of 17.4, drawn 24.5hrs post-dose, was within the target range of 15-20. Will continue dosing at 750mg q24h, and will draw another trough level in two days. Pharmacy Service will continue to monitor and adjust dosing as required. Follow-Up Labs Follow-Up Labs: Trough: Vancomycin Date/Time Labs Ordered Labs to be done on [date and time ordered]: 05/28/25 @0437
[2025-05-26] MEDS: Vancomycin HCl 750 MG in 0.9% Normal Saline (250mL Bag) 250 ML 250 MG IV (05:36)
[2025-05-26 05:55] LABS: Anisocytosis 2+; Differential Comment SCANNED; Microcytosis 1+
[2025-05-26 05:56] LABS: Polychromasia 1+
--- NOTE | 2025-05-26 08:17 | PN.HOSP_ITS ---
Reason for Visit Chief Complaint: altered level of consciousness. Subjective Subjective Weak cough. Requiring suctioning. Has been off norepinephrine since the . Objective Data Objective Data Vital Signs: Vital Signs Temp Pulse Resp BP Pulse Ox O2 Del Method O2 Flow Rate 36.9 C 83 17 109/70 95 Nasal Cannula 4 05/26/25 08:00 05/26/25 08:00 05/26/25 08:00 05/26/25 08:00 05/26/25 08:00 05/26/25 08:00 05/26/25 07:46 FiO2 4 05/26/25 08:00 Oxygen Flow Rate (L/min) 4 Oxygen Delivery Method Nasal Cannula Weight: 83.8 kg Body Mass Index (BMI) 30.7 Intake & Output: Intake and Output for Last 24 Hours 05/24/25 05/25/25 05/26/25 23:59 23:59 23:59 Intake Total 2046.13 / 2148.63 1880.23 / 1880.23 1531.25 / 1531.25 Output Total 3200 / 3200 1500 / 1500 250 / 250 Balance -1153.87 / -1051.37 380.23 / 380.23 1281.25 / 1281.25 Lab / Micro Data 05/26/25 04:38 05/26/25 04:38 Labs: Laboratory Results - last 24 hr 05/25/25 21:05: WBC 8.0, RBC 3.10 L, Hgb 7.1 L, Hct 24.9 L, MCV 80.3 L, MCH 22.9 L, MCHC 28.5 L, RDW Std Deviation 80.5 H, RDW Coeff of Federico 28.9 H, Plt Count 182, MPV 9.8, Immature Gran % (Auto) 0.700, Neut % (Auto) 80.5 H, Lymph % (Auto) 9.8 L, [place] % (Auto) 6.7, Eos % (Auto) 1.9, Baso % (Auto) 0.4, Absolute Neuts (auto) 6.5, Absolute Lymphs (auto) 0.79 L, Nucleated RBC % 0.2, Differential Comment SCANNED, Platelet Estimate ADEQUATE, Polychromasia 1+, Hypochromasia 1+, Anisocytosis 2+, Sodium 151 H, Potassium 3.6, Chloride 119 H, Carbon Dioxide 21.4, Anion Gap 11, BUN 37 H, Creatinine 1.69 H, Estim Creat Clear Calc 37.66 L, Est GFR (MDRD) Non-Af 34 L, BUN/Creatinine Ratio 21.6 H, Glucose 91, Calcium 7.6, Phosphorus 3.1, Magnesium 2.4 H, Total Bilirubin 1.23, AST 14, ALT 15, Alkaline Phosphatase 52, Total Protein 5.6 L, Albumin 2.4 L, Globulin 3.2, A lbumin/Globulin Ratio 0.8 L 05/26/25 04:38: WBC 8.0, RBC 3.05 L, Hgb 7.0 L, Hct 24.6 L, MCV 80.7 L, MCH 23.0 L, MCHC 28.5 L, RDW Std Deviation 82.6 H, RDW Coeff of Federico 29.1 H, Plt Count 173, MPV 10.0, Immature Gran % (Auto) 0.600, Neut % (Auto) 79.3 H, Lymph % (Auto) 11.0 L, [place] % (Auto) 6.5, Eos % (Auto) 2.1, Baso % (Auto) 0.5, Absolute Neuts (auto) 6.3, Absolute Lymphs (auto) 0.88, Nucleated RBC % 0.3, Differential Comment SCANNED, Polychromasia 1+, Anisocytosis 2+, Microcytosis 1+, Ovalocytes RARE, Stomatocytes RARE, Sodium 151 H, Potassium 3.6, Chloride 119 H, Carbon Dioxide 21.3, Anion Gap 11, BUN 35 H, Creatinine 1.54 H, Estim Creat Clear Calc 41.33 L, Est GFR (MDRD) Non-Af 38 L, BUN/Creatinine Ratio 22.4 H, Glucose 79, Calcium 7.7, Vancomycin Trough 17.4 H Micro: Microbiology 05/21/25 14:15 Sputum, Induced/Lukens Gram Stain - Final 05/21/25 14:15 Sputum, Induced/Lukens Respiratory Culture - Final 05/21/25 15:15 Blood Culture (Wb) - Central Line Blood Culture - Preliminary No growth in 48 hours. 05/21/25 17:40 Urine Catheter - Fiore Urine Culture - Final Escherichia coli Physical Exam Const alert and no apparent distress Resp normal respiratory effort, no retractions, no use of accessory muscles and clear to auscultation bilaterally Cardio regular rate, regular rhythm, S1 normal heart sound and S2 normal heart sound GI normal to inspection, nondistended, normoactive bowel sounds, soft to palpation, non-tender and non-distended Extremity normal to inspection and full ROM Neuro Sensorium / Orientation: awake and alert Assessment & Plan Assessment/Plan (1) Shock: PLAN: Undifferentiated at this time. Concern for hemorrhagic plus minus septic shock. Within normal EF cardiogenic ruled out. Right IJ triple-lumen catheter placed. Norepinephrine weaned off on the . On admission she was not a candidate for 30 cc/kg of IVF given CHF. Started on empiric antibiotics w pip/tazo and vancomycin Urine culture showing E. coli, pansensitive. Continue broad-spectrum antibiotics given the ongoing concern that patient may have pneumonia if pneumonia is deemed not the issue then antibiotics can likely be de-escalated to solely address the urinary tract infection. (2) Acute hypoxemic respiratory failure: PLAN: CHF +/- pneumonia Intubated due to concern for on pending airway collapse given her numerous severe medical issues that are coalescing at present. On empiric antibiotics Extubated 05/25 (3) (HFpEF) heart failure with preserved ejection fraction: PLAN: Acute and ongoing EF noted as normal. Cannot rule out high-output failure due to severe anemia. Will give 1x dose of 40mg IV furosemide today. (4) Atrial fibrillation with RVR: PLAN: Improved new diagnosis but unclear how new this processes. Unable to anticoagulate due to anemia. May be exacerbated due to the severity of her underlying illnesses. No chronotropic meds at this time given the shock and ongoing need for pressors. (5) Acute blood loss anemia: PLAN: Unclear how long the patient has been anemic. Though looking back at her labs, patient hemoglobin of 13 on January 18 and then had hemoglobin of 7.6 on January 22 of this year. Her admission hemoglobin was 3.6. Transfused 4 units packed red blood cells, went up to 8, since drifted down to 7.2. Hold transfusion for now. Monitor. on IV PPI B12, folate, TSH WNL. Low iron and ferritin Received IV iron 05/22 EGD 05/22 showed non-bleeding ulcers in the duodenum. Hemoglobin drifting down but we will hold off on transfusion unless hemoglobin drops less than 7. (6) Elevated troponin: PLAN: Mild elevation due to atrial fibrillation, respiratory failure, anemia. Demand ischemia from above. No gross wall abnormality on echo No additional cardiac work up at this time. (7) Dysphagia: PLAN: Postextubation. Patient has a weak voice that is ongoing. Discussed with the patient's brother that will have a modified barium swallow study to evaluate. She feels that that she may need to potentially be considered for enteral feeding. Continue NPO, speach therapy. PLAN: Plan History of stroke: Patient not on any antiplatelet or any anticoagulation medications. Does have right-sided hemiparesis Hypertension: Holding off on amlodipine, carvedilol and hydralazine given shock. VTE prophylaxis with SCDs CODE STATUS: Addressed with the patient and her family. Patient is full code. Discussed with the patient's brother at bedside. Charges/Coding Visit Charges Inpatient E&M: 76715 Subs Hosp L2
[2025-05-26] MEDS: Pantoprazole Sodium 40 MG in 0.9% Normal Saline (100mL MB+) 100 ML 300 MG IV ×2 (08:28→22:19)
[2025-05-27] VITALS (9 sets, daily range): BP systolic 110–138; BP diastolic 76–98; PULSE 84–100; RESP 16–20; TEMP 36.6–37.1; O2SAT 3–97; BMI 29.5
[2025-05-27] MEDS: 0.9% Saline Lock 10 ML Syringe IV (04:15)
[2025-05-27] MEDS: Vancomycin HCl 750 MG in 0.9% Normal Saline (250mL Bag) 250 ML 250 MG IV (04:15)
[2025-05-27 04:30] LABS: Hematocrit 26.6 % (37-47); Hemoglobin 7.5 g/dL (12.0-15.0); Immature Granulocytes Count 0.050 X10^3/uL (0.0-0.0); Mean Corp Hgb Conc 28.2 g/dL (32-36); Mean Corpuscular Volume 80.4 fL (81-99); Mean Platelet Vol. 10.1 fl (6.2-12.0); NRBC Flagged by Analyzer 0.3 % (0-5); POSITIVE MORPHOLOGY YES; Platelet Count 204 K/mm3 (150-450); Red Blood Count 3.31 M/mm3 (4.2-5.4); White Blood Count 7.8 K/mm3 (4.4-11.0)
[2025-05-27 04:48] LABS: Anion Gap 13 (5-15); BUN 34 mg/dL (4-19); BUN/Creat Ratio 22.3 RATIO (10-20); Calcium,Total 7.9 mg/dL (7.6-11.0); Carbon Dioxide 21.8 mmol/L (21.0-32.0); Chloride 120 mmol/L (98-108); Estimated Creatinine Clearance 42.11 ml/min (50-250); Glucose 73 mg/dL (70-99); Potassium 3.3 mmol/L (3.3-5.1)
[2025-05-27 04:49] LABS: Differential Indicated SCAN CRITERIA MET
[2025-05-27 05:08] LABS: Anisocytosis 2+
[2025-05-27] MEDS: Piperacil/Tazobactam 3.375 GM in 0.9% Normal Saline (50mL MB+) 50 ML IV ×3 (05:39→21:09)
--- NOTE | 2025-05-27 08:20 | PCM.PN.HOSP ---
Reason for Visit Chief Complaint: altered level of consciousness. Subjective Subjective Upset that her mother cannot see her (too weak to make it to the hospital). Brother feels her voice now is back to her baseline. Objective Data Objective Data Vital Signs: Vital Signs Temp Pulse Resp BP Pulse Ox O2 Del Method O2 Flow Rate 36.7 C 97 17 118/80 95 Nasal Cannula 4 05/27/25 02:00 05/27/25 02:00 05/27/25 02:00 05/27/25 02:00 05/27/25 07:58 05/27/25 07:58 05/27/25 07:58 FiO2 4 05/26/25 08:00 Oxygen Flow Rate (L/min) 4 Oxygen Delivery Method Nasal Cannula Weight: 80.2 kg Body Mass Index (BMI) 29.5 Intake & Output: Intake and Output for Last 24 Hours 05/25/25 05/26/25 05/27/25 23:59 23:59 23:59 Intake Total 1880.23 / 1880.23 1831.25 / 1831.25 315 / 315 Output Total 1500 / 1500 2650 / 3100 700 / 700 Balance 380.23 / 380.23 -818.75 / -1268.75 -385 / -385 Lab / Micro Data 05/27/25 04:15 05/27/25 04:15 Labs: Laboratory Results - last 24 hr 05/27/25 04:15: WBC 7.8, RBC 3.31 L, Hgb 7.5 L, Hct 26.6 L, MCV 80.4 L, MCH 22.7 L, MCHC 28.2 L, RDW Std Deviation TNP, RDW Coeff of Federico TNP, Plt Count 204, MPV 10.1, Immature Gran % (Auto) 0.600, Neut % (Auto) 78.0 H, Lymph % (Auto) 11.6 L, [place] % (Auto) 6.6, Eos % (Auto) 2.6, Baso % (Auto) 0.6, Absolute Neuts (auto) 6.1, Absolute Lymphs (auto) 0.90, Nucleated RBC % 0.3, Anisocytosis 2+, Sodium 155 H, Potassium 3.3, Chloride 120 H, Carbon Dioxide 21.8, Anion Gap 13, BUN 34 H, Creatinine 1.50 H, Estim Creat Clear Calc 42.11 L, Est GFR (MDRD) Non-Af 39 L, BUN/Creatinine Ratio 22.3 H, Glucose 73, Calcium 7.9 Micro: Microbiology 05/21/25 15:15 Blood Culture (Wb) - Central Line Blood Culture - Final No growth in 5 days. 05/21/25 14:15 Sputum, Induced/Lukens Gram Stain - Final 05/21/25 14:15 Sputum, Induced/Lukens Respiratory Culture - Final 05/21/25 17:40 Urine Catheter - Fiore Urine Culture - Final Escherichia coli Physical Exam Const alert and no apparent distress Constitutional Narrative: voice stronger than yesterday, but still weak. HEENT head/scalp atraumatic and moist oral mucous membranes Resp normal respiratory effort and no retractions Resp Narrative: coarse breath sounds bilaterally. Cardio regular rate, regular rhythm, S1 normal heart sound and S2 normal heart sound GI normal to inspection, nondistended, normoactive bowel sounds, soft to palpation, non-tender and non-distended Extremity normal to inspection and full ROM Neuro Sensorium / Orientation: awake, alert, oriented to person, oriented to place and oriented to time Assessment & Plan Assessment/Plan (1) Shock: PLAN: POA and currently resolved. Concern for hemorrhagic plus minus septic shock. Within normal EF cardiogenic ruled out. Right IJ triple-lumen catheter placed. Norepinephrine weaned off on the . On admission she was not a candidate for 30 cc/kg of IVF given CHF. Started on empiric antibiotics w pip/tazo and vancomycin. Will discontinue vancomycin today and continue piperacillin/tazobactam through the first to complete 7-day course of antibiotics. Urine culture showing E. coli, pansensitive. Continue broad-spectrum antibiotics given the ongoing concern that patient may have pneumonia if pneumonia is deemed not the issue then antibiotics can likely be de-escalated to solely address the urinary tract infection. (2) Acute hypoxemic respiratory failure: PLAN: CHF +/- pneumonia Intubated due to concern for on pending airway collapse given her numerous severe medical issues that are coalescing at present. On pip-tazo through May 28. Extubated 05/25 (3) (HFpEF) heart failure with preserved ejection fraction: PLAN: Acute and ongoing EF noted as normal. Cannot rule out high-output failure due to severe anemia. The patient with ongoing respiratory issues, will continue with daily IV furosemide particularly since she will be receiving IV fluids to help with the hypernatremia. (4) Atrial fibrillation with RVR: PLAN: Improved new diagnosis but unclear how new this processes. Unable to anticoagulate due to anemia. May be exacerbated due to the severity of her underlying illnesses. No chronotropic meds at this time given the shock and ongoing need for pressors. (5) Acute blood loss anemia: PLAN: Unclear how long the patient has been anemic. Though looking back at her labs, patient hemoglobin of 13 on January 18 and then had hemoglobin of 7.6 on January 22 of this year. Her admission hemoglobin was 3.6. Transfused 4 units packed red blood cells, went up to 8, since drifted down to 7.2. Hold transfusion for now. Monitor. on IV PPI B12, folate, TSH WNL. Low iron and ferritin Received IV iron 05/22 EGD 05/22 showed non-bleeding ulcers in the duodenum. Hemoglobin drifting down but we will hold off on transfusion unless hemoglobin drops less than 7. (6) Elevated troponin: PLAN: Mild elevation due to atrial fibrillation, respiratory failure, anemia. Demand ischemia from above. No gross wall abnormality on echo No additional cardiac work up at this time. (7) Dysphagia: PLAN: Postextubation. Patient has a weak voice that is ongoing. Discussed with the patient's brother that will have a modified barium swallow study to evaluate. She feels that that she may need to potentially be considered for enteral feeding. Continue NPO, speach therapy. (8) Hypernatremia: PLAN: Unable to give free water as patient is currently NPO. Will start infusion of D5 water and monitor. PLAN: Plan History of stroke: Patient not on any antiplatelet or any anticoagulation medications. Does have right-sided hemiparesis Hypertension: Holding off on amlodipine, carvedilol and hydralazine given shock. VTE prophylaxis with SCDs CODE STATUS: Addressed with the patient and her family. Patient is full code. Discussed with the patient's brother at bedside. Charges/Coding Visit Charges Inpatient E&M: 19434 Subs Hosp L2
[2025-05-27] MEDS: Dextrose 5%-Water (1000mL Bag) 1,000 ML 75 ML IV ×2 (09:04→21:40)
[2025-05-27] MEDS: Pantoprazole Sodium 40 MG in 0.9% Normal Saline (100mL MB+) 100 ML 300 MG IV ×2 (09:04→21:08)
[2025-05-28] VITALS (7 sets, daily range): BP systolic 116–134; BP diastolic 68–89; PULSE 75–85; RESP 16–18; TEMP 36.4–37.2; O2SAT 92–98; BMI 29.6
--- NOTE | 2025-05-28 03:30 | RAD_ITS ---
PROCEDURE: CHEST 1 VIEW (PORTABLE) 05/28/2025 REASON FOR EXAM: INCREASE IN O2 NEEDS TECHNIQUE: Frontal view of the chest. COMPARISON: Chest radiograph on 05/24/2025. FINDINGS: Unchanged minimal left pleural effusion. Unchanged passive atelectatic airspace disease of the left lower lobe. Right internal jugular central catheter is unchanged. Enteric feeding tube has been removed in the interim. Endotracheal tube has been removed in the interim. Minimal decrease in pulmonary congestion/infiltrates. Enlarged cardiac silhouette. Normal mediastinum and elo. Normal visualized pulmonary arteries. Atheromatous plaques of the visualized aortic arch and descending thoracic aorta. Diffuse spondylosis of the visualized thoracic spine. Normal visualized ribs, clavicles. Degenerative joint disease. There is no demonstrated abnormality of the visualized soft tissue structures of the upper abdomen. RAD/Chest 1 View (Portable) IMPRESSION: Unchanged minimal left pleural effusion. Unchanged passive atelectatic airspace disease of the left lower lobe. Right internal jugular central catheter is unchanged. Enteric feeding tube has been removed in the interim. Endotracheal tube has been removed in the interim. Minimal decrease in pulmonary congestion/infiltrates. Enlarged cardiac silhouette. [facility]
[2025-05-28 03:59] LABS: Hematocrit 26.0 % (37-47); Hemoglobin 7.2 g/dL (12.0-15.0); Immature Granulocytes Count 0.040 X10^3/uL (0.0-0.0); Mean Corp Hgb Conc 27.7 g/dL (32-36); Mean Corpuscular Volume 82.0 fL (81-99); Mean Platelet Vol. 10.8 fl (6.2-12.0); NRBC Flagged by Analyzer 0 % (0-5); POSITIVE COUNT YES; POSITIVE MORPHOLOGY YES; Platelet Count 195 K/mm3 (150-450); Red Blood Count 3.17 M/mm3 (4.2-5.4); White Blood Count 7.2 K/mm3 (4.4-11.0)
[2025-05-28 04:16] LABS: Pro- Brain NATRIURETIC PEPTIDE 12629 pg/mL (<=900)
[2025-05-28 04:58] LABS: Differential Indicated SCAN CRITERIA MET
[2025-05-28 05:01] LABS: Acanthocytes 1+; Anisocytosis 3+; Crenated RBC 1+; Differential Comment SCANNED; Hypochromasia 1+; Macrocytosis 1+; Microcytosis 1+; Polychromasia 1+
[2025-05-28] MEDS: Piperacil/Tazobactam 3.375 GM in 0.9% Normal Saline (50mL MB+) 50 ML IV ×2 (05:29→15:37)
[2025-05-28] MEDS: 0.9% Saline Lock 10 ML Syringe IV ×2 (05:29→21:12)
[2025-05-28 06:57] LABS: Anion Gap 10 (5-15); BUN 27 mg/dL (4-19); BUN/Creat Ratio 20.9 RATIO (10-20); Calcium,Total 8.0 mg/dL (7.6-11.0); Carbon Dioxide 23.4 mmol/L (21.0-32.0); Chloride 119 mmol/L (98-108); Estimated Creatinine Clearance 47.69 ml/min (50-250); Glucose 96 mg/dL (70-99); Potassium 3.5 mmol/L (3.3-5.1)
--- NOTE | 2025-05-28 07:03 | PCM.PN.INT ---
Assessment & Plan Assessment/Plan (1) Acute hypoxemic respiratory failure: (2) Elevated troponin: (3) Acute on chronic kidney failure: (4) New onset a-fib: (5) Shock: PLAN: Plan RECOMMENDATIONS: 1. Supplemental oxygen to maintain saturations at or above 90%. 2. Trial of empiric BiPAP therapy with naps and nightly to assist with alveolar recruitment. 3. Will give 1 dose of IV Lasix today. 4. Aggressive incentive spirometry use. 5. Antimicrobial therapy to complete 7 days of therapy. 6. Continue to monitor H&H. Transfuse if hemoglobin drops below 7 g/dL. 7. Dietary advancement per speech therapy. IMPRESSIONS: 1. Undifferentiated shock Resolved. Most likely secondary to hemorrhagic etiology in the setting of acute blood loss anemia +/- sepsis related to pneumonia. The patient is currently hemodynamically stable. Recommend continuing antimicrobial therapy to complete 7 days of therapy. The patient is status post endoscopic evaluation by GI with gastric ulcers and nonbleeding duodenal ulcers noted. The patient will be continued on PPI therapy. 2. Acute hypoxemic respiratory failure Clinical concern for underlying pneumonia along with atelectasis. While there was initial concern for decompensated heart failure, the patient's echocardiogram revealed a normal ejection fraction. She was ultimately intubated on May 21, due to her inability to compensate from a respiratory perspective for her underlying metabolic acidosis. With supportive care and antimicrobials, the patient improved from a respiratory perspective and was able to be extubated. At this time, recommend aggressive bronchopulmonary hygiene. Given her elevated BNP, we will administer IV Lasix x 1 today. Continue to wean supplemental oxygen to maintain saturations at or above 90%. The patient would likely benefit from a trial of BiPAP therapy with naps and nightly to assist with alveolar recruitment. 3. Acute on chronic kidney disease Most likely secondary to #1. Continue current supportive care. Avoid nephrotoxic medications. 4. Acute blood loss anemia Gastroenterology is following. Continue transfusion of blood products to achieve and maintain a hemoglobin at or above 7 g/dL. Continue PPI therapy as ordered. 5. Troponin elevation/atrial fibrillation Secondary to demand ischemia in the setting of #1. Echocardiogram revealed intact, normal systolic function. Continue current supportive care. 6. History of CVA with residual deficits/hypertension/hyperlipidemia Complicates care, management, recovery and prognosis. Continue supportive measures as noted above. Physical therapy to work with the patient. Dietary advancement per speech therapy. This note was generated with [employer] dictation software. It may contain incorrect words, spelling, and punctuation that were not noted in checking the note before signing. Subjective Subjective The patient was seen and examined at the bedside this morning. Events from the last 24 hours have been reviewed. The patient is currently afebrile, hemodynamically stable and maintaining appropriate oxygen saturations on 8 L/min via nasal cannula. Nursing staff reported that the patient was stable on 2 to 3 L/min yesterday, but then had an increase in oxygen requirement overnight with sleep. She is currently documented to be overall net +3 L for the hospitalization. Repeat chest x-ray obtained overnight showed no significant interval changes. Hemoglobin is down to 7.2 g/dL. Platelet count is within normal limits. Creatinine is stable at 1.3. BNP was elevated at 12,629. Objective Data Objective Data The patient's most recent lab work, culture data and imaging studies have all been personally reviewed. Surface echocardiogram demonstrated mild concentric LVH with an ejection fraction of 60%. Vital Signs: Vital Signs Temp Pulse Resp BP Pulse Ox O2 Del Method O2 Flow Rate 97.6 F L 75 18 121/89 H 92 High Flow 8 05/28/25 05:46 05/28/25 05:46 05/28/25 05:46 05/28/25 05:46 05/28/25 05:46 05/28/25 05:46 05/28/25 05:46 FiO2 4 05/26/25 08:00 Oxygen Flow Rate (L/min) 8 Oxygen Delivery Method High Flow Weight: 177 lb 14.609 oz Body Mass Index (BMI) 29.6 Intake & Output: Intake and Output for Last 24 Hours 05/26/25 05/27/25 05/28/25 23:59 23:59 23:59 Intake Total 1831.25 / 1831.25 1615 / 1615 450 / 450 Output Total 2650 / 3100 1300 / 1625 500 / 500 Balance -818.75 / -1268.75 315 / -10 -50 / -50 Lab / Micro Data Attestation: I reviewed the patient's lab results. 05/28/25 03:45 05/28/25 06:23 Labs: Laboratory Results - last 24 hr 05/28/25 03:45: WBC 7.2, RBC 3.17 L, Hgb 7.2 L, Hct 26.0 L, MCV 82.0, MCH 22.7 L, MCHC 27.7 L, RDW Std Deviation Not Reportable, RDW Coeff of Federico Not Reportable, Plt Count 195, MPV 10.8, Immature Gran % (Auto) 0.600, Neut % (Auto) 73.7 H, Lymph % (Auto) 14.8 L, [place] % (Auto) 6.2, Eos % (Auto) 3.9, Baso % (Auto) 0.8, Absolute Neuts (auto) 5.3, Absolute Lymphs (auto) 1.07, Nucleated RBC % 0, Differential Comment SCANNED, Platelet Estimate ADEQUATE, Plt Morphology Comment CLUMPED, Polychromasia 1+, Hypochromasia 1+, Anisocytosis 3+, Microcytosis 1+, Macrocytosis 1+, Ovalocytes 1+, Crenated Cell 1+, Acanthocytes (Spur) 1+, Sodium Cancelled, Potassium Cancelled, Chloride Cancelled, Carbon Dioxide Cancelled, Anion Gap Cancelled, BUN Cancelled, Creatinine Cancelled, Estim Creat Clear Calc Cancelled, Est GFR (MDRD) Non-Af Cancelled, BUN/Creatinine Ratio Cancelled, Glucose Cancelled, Calcium Cancelled, [place] [address] H 05/28/25 06:23: Sodium 152 H, Potassium 3.5, Chloride 119 H, Carbon Dioxide 23.4, Anion Gap 10, BUN 27 H, Creatinine 1.30 H, Estim Creat Clear Calc 47.69 L, Est GFR (MDRD) Non-Af 47 L, BUN/Creatinine Ratio 20.9 H, Glucose 96, Calcium 8.0 Micro: Microbiology 05/21/25 15:15 Blood Culture (Wb) - Central Line Blood Culture - Final No growth in 5 days. 05/21/25 14:15 Sputum, Induced/Lukens Gram Stain - Final 05/21/25 14:15 Sputum, Induced/Lukens Respiratory Culture - Final 05/21/25 17:40 Urine Catheter - Fiore Urine Culture - Final Escherichia coli ABG Data ABG results: ABG 05/21/25 05/21/25 09:30 15:31 Specimen Type ART LJ Sample Site L Radial L Radial pH 7.46 H Bicarbonate Actual 16.4 L Total CO2 17 Base Excess -7 L O2 Saturation 97 O2 % 100.0 60.0 ABG pCO2 22.8 L ABG pO2 79 Alcon Test Positive VBG pH 7.41 VBG pO2 23 L VBG HCO3 20 L VBG Total CO2 21 L VBG O2 Sat (Calc) 42 L VBG Base Excess -4 L POC Mix VBG pCO2 Pt Tmp 32.4 L Respiration Rate 16 O2 Delivery Device NRB Adult Vent Vent Mode Not entered Tidal Volume 450.0 POC PEEP 5 Radiography Diagnostic Testing: Radiology Impression Chest X-Ray 05/28/25 03:30 IMPRESSION: Unchanged minimal left pleural effusion. Unchanged passive atelectatic airspace disease of the left lower lobe. Right internal jugular central catheter is unchanged. Enteric feeding tube has been removed in the interim. Endotracheal tube has been removed in the interim. Minimal decrease in pulmonary congestion/infiltrates. Enlarged cardiac silhouette. Reading Location: [place] [address] Physical Exam Const alert and no apparent distress General Appearance: cooperative HEENT normocephalic and head/scalp atraumatic Eyes PERRL, EOMs intact bilaterally and conjunctivae normal Neck supple General: trachea midline and CVC in place Chest inspection of chest normal Resp Auscultation: diminished lung sounds; Negative for rales, rhonchi or wheezes Cardio S1 normal heart sound and S2 normal heart sound Rhythm: abnormal rhythm GI normal to inspection, nondistended, normoactive bowel sounds Extremity General Extremity: edema; Negative for clubbing Skin no rashes or lesions noted Neuro CN's II-XII intact bilaterally Neuro Narrative: Contracted right-sided extremities. Psych Mood & Affect: flat affect Charges/Coding Visit Charges Inpatient E&M: 15828 Subs Hosp L2
[2025-05-28 07:19] LABS: Magnesium 2.3 mg/dL (1.5-2.2)
[2025-05-28] MEDS: Pantoprazole Sodium 40 MG in 0.9% Normal Saline (100mL MB+) 100 ML 300 MG IV ×2 (09:50→21:12)
--- NOTE | 2025-05-28 14:09 | PN_ITS ---
Subjective Subjective Patient seen and examined. Her brother was by her bedside. She had no active complaints and had and uneventful night. She denied any lightheadedness, numbness, chest pain, palpitations, dizziness, nausea, vomiting or any other symptoms. Objective Data Objective Data Vital Signs: Vital Signs Temp Pulse Resp BP Pulse Ox O2 Del Method O2 Flow Rate 97.6 F L 75 18 121/89 H 94 Nasal Cannula 3 05/28/25 05:46 05/28/25 05:46 05/28/25 05:46 05/28/25 05:46 05/28/25 07:56 05/28/25 08:00 05/28/25 11:44 FiO2 4 05/26/25 08:00 Oxygen Flow Rate (L/min) 3 Oxygen Delivery Method Nasal Cannula Weight: 177 lb 14.609 oz Body Mass Index (BMI) 29.6 Intake & Output: Intake and Output for Last 24 Hours 05/26/25 05/27/25 05/28/25 23:59 23:59 23:59 Intake Total 1831.25 / 1831.25 1615 / 1615 694.5 / 694.5 Output Total 2650 / 3100 1300 / 1625 500 / 500 Balance -818.75 / -1268.75 315 / -10 194.5 / 194.5 Lab / Micro Data 05/28/25 03:45 05/28/25 06:23 Labs: Laboratory Results - last 24 hr 05/28/25 03:45: WBC 7.2, RBC 3.17 L, Hgb 7.2 L, Hct 26.0 L, MCV 82.0, MCH 22.7 L , MCHC 27.7 L, RDW Std Deviation Not Reportable, RDW Coeff of Federico Not Reportable, Plt Count 195, MPV 10.8, Immature Gran % (Auto) 0.600, Neut % (Auto) 73.7 H, Lymph % (Auto) 14.8 L, [place] % (Auto) 6.2, Eos % (Auto) 3.9, Baso % (Auto) 0.8, Absolute Neuts (auto) 5.3, Absolute Lymphs (auto) 1.07, Nucleated RBC % 0, Differential Comment SCANNED, Platelet Estimate ADEQUATE, Plt Morphology Comment CLUMPED, Polychromasia 1+, Hypochromasia 1+, Anisocytosis 3+, Microcytosis 1+, Macrocytosis 1+, Ovalocytes 1+, Crenated Cell 1+, Acanthocytes (Spur) 1+, Sodium Cancelled, Potassium Cancelled, Chloride Cancelled, Carbon Dioxide Cancelled, Anion Gap Cancelled, BUN Cancelled, Creatinine Cancelled, Estim Creat Clear Calc Cancelled, Est GFR (MDRD) Non-Af Cancelled, BUN/Creatinine Ratio Cancelled, Glucose Cancelled, Calcium [place]ancelled, [place] [address] H 05/28/25 06:23: Sodium 152 H, Potassium 3.5, Chloride 119 H, Carbon Dioxide 23.4, Anion Gap 10, BUN 27 H, Creatinine 1.30 H, Estim Creat Clear Calc 47.69 L, Est GFR (MDRD) Non-Af 47 L, BUN/Creatinine Ratio 20.9 H, Glucose 96, Calcium 8.0, Magnesium 2.3 H Micro: Microbiology 05/21/25 15:15 Blood Culture (Wb) - Central Line Blood Culture - Final No growth in 5 days. 05/21/25 14:15 Sputum, Induced/Lukens Gram Stain - Final 05/21/25 14:15 Sputum, Induced/Lukens Respiratory Culture - Final 05/21/25 17:40 Urine Catheter - Fiore Urine Culture - Final Escherichia coli Radiography Diagnostic Testing: Radiology Impression Chest X-Ray 05/28/25 03:30 IMPRESSION: Unchanged minimal left pleural effusion. Unchanged passive atelectatic airspace disease of the left lower lobe. Right internal jugular central catheter is unchanged. Enteric feeding tube has been removed in the interim. Endotracheal tube has been removed in the interim. Minimal decrease in pulmonary congestion/infiltrates. Enlarged cardiac silhouette. Reading Location: [place] [address] Physical Exam Const alert, oriented x3 and no apparent distress General Appearance: cooperative HEENT normocephalic, head/scalp atraumatic, moist oral mucous membranes and oropharynx normal Eyes PERRL and EOMs intact bilaterally Neck supple Lymph Lymphatic: no lymphedema noted Resp normal respiratory effort and normal air movement Cardio regular rate, regular rhythm, S1 normal heart sound, S2 normal heart sound and no murmurs GI normal to inspection, nondistended, normoactive bowel sounds, soft to palpation, non-tender and non-distended Extremity normal capillary refill and no clubbing, cyanosis or edema General Extremity: no tenderness to palpation of joints or extremities Neuro no focal motor deficits and no sensory deficits noted Neuro Narrative: Right sided weakness, which is chronic Motor Exam: general weakness Psych thought process normal and cooperative Appearance: appropriate Assessment & Plan Assessment/Plan (1) Hypernatremia: (2) Dysphagia: (3) (HFpEF) heart failure with preserved ejection fraction: (4) Acute blood loss anemia: (5) Atrial fibrillation with RVR: PLAN: Plan #Acute hypoxic respiratory failure * thought to be due to CHF and pneumonia * on zosyn. Was intubated and subsequently on 05/25/2025. #Acute on chronic HFpEF * EF is normal at 60%, and mild concentric LVH and apical hypertrophic cardiomyopathy present. * received IV lasix 40mg x 1. * pro BNP: 14860 * #Atrial fibrillation with RVR * new diagnosis. not anticoagulated. Not on rate limiting medications due to hypotension. #Acute blood loss anemia * Initial Hb on admission was 3.6. * transfused with 4 units of PRBCs. * Hb today is 7.2. * received IV iron. On IV PPI * EGD showed non bleeding duodenal ulcers * iron studies showed iron deficiency. * transfuse to keep HB >7 * #Dysphagia * speech therapy on board. Currently NPO. * to have modified barium swallow * #RAMEZ on CKD: CR is down to 1.3 which is her baseline. #Hypernatremia: Na is 152 today. Will hydrate with D5W and trend sodium levels. #History of stroke: not on anticoagulation or antiplatelets. s/p right sided hemiparesis. #Hypertension: on amlodipine, carvedilol and hydralazine which are on hold due to hypotension. DVT prophylaxis: SCDs. Not anticoagulated o/a of acute on chronic anemia Charges/Coding Visit Charges Inpatient E&M: 27528 Subs Hosp L2
[2025-05-28] MEDS: Dextrose 5%-Water (1000mL Bag) 1,000 ML 75 ML IV (17:05)
[2025-05-29] VITALS (11 sets, daily range): BP systolic 96–126; BP diastolic 57–89; PULSE 68–152; RESP 16–18; TEMP 36.1–37; O2SAT 93–97
--- NOTE | 2025-05-29 01:36 | PCM.HOSP.N ---
Hospitalist Note Patient with intermittent short bursts VT, asymptomatic. BP stable from review of trend. Will add back low dose coreg with hold parameters with dose now. Recent mag appropriate. K from am appropriate.
[2025-05-29] MEDS: 0.9% Saline Lock 10 ML Syringe IV ×2 (02:01→10:29)
[2025-05-29] MEDS: Dextrose 5%-Water (1000mL Bag) 1,000 ML 75 ML IV (05:17)
[2025-05-29 05:47] LABS: Hematocrit 29.5 % (37-47); Hemoglobin 8.3 g/dL (12.0-15.0); Immature Granulocytes Count 0.020 X10^3/uL (0.0-0.0); Mean Corp Hgb Conc 28.1 g/dL (32-36); Mean Corpuscular Volume 79.5 fL (81-99); Mean Platelet Vol. 10.8 fl (6.2-12.0); NRBC Flagged by Analyzer 0 % (0-5); POSITIVE MORPHOLOGY YES; Platelet Count 245 K/mm3 (150-450); Red Blood Count 3.71 M/mm3 (4.2-5.4); White Blood Count 6.6 K/mm3 (4.4-11.0)
[2025-05-29 05:54] LABS: Differential Indicated SCAN CRITERIA MET
[2025-05-29 06:17] LABS: Anion Gap 10 (5-15); BUN 23 mg/dL (4-19); BUN/Creat Ratio 18.5 RATIO (10-20); Calcium,Total 8.0 mg/dL (7.6-11.0); Carbon Dioxide 25.7 mmol/L (21.0-32.0); Chloride 112 mmol/L (98-108); Estimated Creatinine Clearance 50.33 ml/min (50-250); Glucose 94 mg/dL (70-99); Potassium 2.8 mmol/L (3.3-5.1)
--- NOTE | 2025-05-29 06:42 | PCM.HOSP.N ---
Hospitalist Note Mag 2.8, will supplement and request repeat mag.
[2025-05-29 06:49] LABS: Acanthocytes RARE; Anisocytosis 3+; Differential Comment SCANNED; Microcytosis 1+; Polychromasia 1+; Target Cells 1+; Tear Drop Cell RARE
[2025-05-29] MEDS: Potassium Chloride 10mEq/100mL 10 MEQ/100 ML IV.SOLN. 100 MEQ IV BOLUS ×4 (07:25→11:51)
[2025-05-29 07:30] LABS: Magnesium 2.0 mg/dL (1.5-2.2)
[2025-05-29] MEDS: 0.45% Normal Saline 1,000 ML 100 ML IV ×2 (10:26→22:23)
[2025-05-29] MEDS: Pantoprazole Sodium 40 MG in 0.9% Normal Saline (100mL MB+) 100 ML 300 MG IV ×2 (10:32→22:26)
--- NOTE | 2025-05-29 14:12 | PN_ITS ---
Subjective Subjective Patient seen and examined with her nurse by her bedside. She developed diarrhea overnight and had several episodes of diarrhea. She denied any abdominal pain, palpitations, dizziness, nausea or any other symptoms. Review of systems is otherwise negative. Potassium today is down to 2.8. Objective Data Objective Data Vital Signs: Vital Signs Temp Pulse Resp BP Pulse Ox O2 Del Method O2 Flow Rate 97.3 F L 95 17 111/83 H 97 Nasal Cannula 3 05/29/25 10:40 05/29/25 12:27 05/29/25 10:40 05/29/25 12:27 05/29/25 10:40 05/29/25 10:40 05/29/25 10:40 FiO2 4 05/26/25 08:00 Oxygen Flow Rate (L/min) 3 Oxygen Delivery Method Nasal Cannula Weight: 180 lb 5.41 oz Body Mass Index (BMI) 30.0 Intake & Output: Intake and Output for Last 24 Hours 05/27/25 05/28/25 05/29/25 23:59 23:59 23:59 Intake Total 1615 / 1615 1350.0 / 1350.0 1672.50 / 1672.50 Output Total 1300 / 1625 850 / 850 550 / 550 Balance 315 / -10 500.0 / 500.0 1122.50 / 1122.50 Lab / Micro Data 05/29/25 05:01 05/29/25 05:01 Labs: Laboratory Results - last 24 hr 05/29/25 05:01: WBC 6.6, RBC 3.71 L, Hgb 8.3 L, Hct 29.5 L, MCV 79.5 L, MCH 22.4 L, MCHC 28.1 L, RDW Std Deviation Not Reportable, RDW Coeff of Federico Not Reportable, Plt Count 245, MPV 10.8, Immature Gran % (Auto) 0.300, Neut % (Auto) 69.1, Lymph % (Auto) 18.0 L, [place] % (Auto) 7.3, Eos % (Auto) 4.5, Baso % (Auto) 0.8, Absolute Neuts (auto) 4.6, Absolute Lymphs (auto) 1.19, Nucleated RBC % 0, Differential Comment SCANNED, Platelet Estimate ADEQUATE, Plt Morphology Comment LARGE, Polychromasia 1+, Anisocytosis 3+, Microcytosis 1+, Target Cells 1+, Tear Drop Cells RARE, Acanthocytes (Spur) RARE, Sodium 147 H, Potassium 2.8 L, C hloride 112 H, Carbon Dioxide 25.7, Anion Gap 10, BUN 23 H, Creatinine 1.24 H, Estim Creat Clear Calc 50.33, Est GFR (MDRD) Non-Af 50 L, BUN/Creatinine Ratio 18.5, Glucose 94, Calcium 8.0, Magnesium 2.0 Micro: Microbiology 05/21/25 15:15 Blood Culture (Wb) - Central Line Blood Culture - Final No growth in 5 days. 05/21/25 14:15 Sputum, Induced/Lukens Gram Stain - Final 05/21/25 14:15 Sputum, Induced/Lukens Respiratory Culture - Final 05/21/25 17:40 Urine Catheter - Fiore Urine Culture - Final Escherichia coli Physical Exam Const alert, oriented x3 and no apparent distress General Appearance: cooperative HEENT normocephalic, head/scalp atraumatic, moist oral mucous membranes and oropharynx normal Eyes PERRL and EOMs intact bilaterally Neck no lymphadenopathy and supple Lymph Lymphatic: no lymphedema noted Resp Resp Narrative: mildly diminished breath sounds bibasally, no wheezes or crackles. On 3L of oxygen by nasal canula. Cardio regular rate, regular rhythm, S1 normal heart sound, S2 normal heart sound and no murmurs GI normal to inspection, nondistended, normoactive bowel sounds, soft to palpation, non-tender and non-distended Extremity normal to inspection, full ROM and normal capillary refill Extremity Narrative: Bilateral lower extremity edema 2+ edema. General Extremity: edema bilateral lower extremity Details: mild and no tenderness to palpation of joints or extremities Neuro no focal motor deficits and no sensory deficits noted Neuro Narrative: Right sided weakness, which is chronic Sensorium / Orientation: awake and alert Motor Exam: general weakness Psych thought process normal and cooperative Appearance: appropriate Assessment & Plan Assessment/Plan (1) Hypernatremia: (2) Dysphagia: (3) (HFpEF) heart failure with preserved ejection fraction: (4) Acute blood loss anemia: (5) Atrial fibrillation with RVR: PLAN: Plan #Acute hypoxic respiratory failure * thought to be due to CHF and pneumonia * on zosyn. Was intubated and subsequently on 05/25/2025. #Acute on chronic HFpEF * EF is normal at 60%, and mild concentric LVH and apical hypertrophic cardiomyopathy present. * received IV lasix 40mg x 1. * pro BNP: 29981 * requiring 3L of oxygen today. Titrate oxygen to maintain sats >90% * breathing treatment with bronchodilators. * #Atrial fibrillation with RVR * new diagnosis. not anticoagulated. * Not on rate limiting medications due to hypotension. * pateint tachyardic today, with HR up to the 150s today. HR subsequently came down before she could be given amiodarone bolus * will place on IV lopressor prn. She cannot be given oral meds now as she is awaiting modified barium swallow. #Diarrhea * patient developed diarrhea overnight and had several episodes of diarrhea. * potassium toady is 2.8. * enteric panel and CDiff screen is pending. * hydrate with IVF 0.45 NS ~ 100cc/hr. * #Hypokalemia: K is 2.8 today. Will replace aggressively. Check Mg. Monitor K closely and trend. May be aggravated by diarrhea. #Acute blood loss anemia * Initial Hb on admission was 3.6. * transfused with 4 units of PRBCs. * Hb today is 8/3. * received IV iron. On IV PPI * EGD showed non bleeding duodenal ulcers * iron studies showed iron deficiency. * transfuse to keep HB >7 * #Dysphagia * speech therapy on board. Currently NPO. * to have modified barium swallow * diet to be determined as per speech therapy recommendations. #RAMEZ on CKD: CR is down to 1.3 which is her baseline. #Hypernatremia: Na is down to 147 today after being hydrated with IV D5W. #History of stroke: not on anticoagulation or antiplatelets. s/p right sided hemiparesis. #Hypertension: on amlodipine, carvedilol and hydralazine which are on hold due to hypotension. DVT prophylaxis: SCDs. Not anticoagulated o/a of acute on chronic anemia Charges/Coding Visit Charges Inpatient E&M: 94383 [facility] Hosp L3
--- NOTE | 2025-05-29 15:17 | SP.MBSS_ITS ---
Modified Barium Swallow Patient Information Study Date: 05/29/25 Study Time: 14:00 Direct Billable Minutes: 114 Total Minutes procedure & reportin Diagnosis: Dysphagia R13.10 Referring Physician: Yanet Zhou Reason for Referral: Objectively assess swallow function, assess risk for aspiration, and determine recommendations for least restrictive diet textures and compensatory strategies to improve safety of swallow. Medical History: Patient presented to [facility] ED 05/21/2025 w/ AMS. Prior hx of CVA and HTN. Pt was a poor historian. In the ED, pt was hypertensive. Patient was noted to be in atrial fibrillation with RVR. C-Xray 05/24/2025 revealed, IMPRESSION: Under- expanded lungs with superimposed airspace opacifications in both lung cox suggesting either pulmonary vascular congestion/CHF or a diffuse inflammatory process. Follow-up recommended to ensure complete resolution. Patient was subsequently admitted to the intensive care unit and patient was seen by critical care medicine and subsequently was intubated and had a central venous catheter placed. Pt extubated 05/24/[address] CARPET SEWING MACHINE OPERATOR recommended strict NPO. ST followed for re-assessment of swallow function and recommended MBSS today to further assess risk for aspiration to consider diet advancement. Current Diet Ordered: NPO Dentition: Natural Teeth and Missing Teeth Mental Status: Impaired (Confusion during acute stay) Respiratory Status: Oxygenating on 3L/M nasal cannula Penetration-Aspiration Scale Penetration-Aspiration Scale: OBJECTIVE ASSESSMENT OF SWALLOW FUNCTION (QUANTITATIVE ? PER TRIAL): PENETRATION / ASPIRATION SCALE (FRANK): 1 = does not enter airway 2 = enters airway/above vocal folds/ejected 3 = enters airway/above vocal folds/not ejected 4 = enters airway/contacts vocal folds/ejected 5 = enters airway/contacts vocal folds/not ejected 6 = enters airway/below vocal folds/ejected 7 = enters airway/below vocal folds/not ejected despite effort 8 = enters airway/below vocal folds/no effort VIDEOFLOROSCOPIC SCALE SCORE (FRANK): Grade I = aspiration of material that has penetrated into the laryngeal vestibule, intact cough reflex Grade II = aspiration < 10 % of the bolus, intact cough reflex Grade III = aspiration of < 10 % of the bolus, reduced cough reflex or aspiration of > 10 % of the bolus, intact cough reflex Grade IV = aspiration of > 10 % of the bolus, reduced cough reflex Penetration-Aspiration Scale Score Thin Liquid via teaspoon: Result: 8= enters airway/below vocal folds/no effort [place] Thick Liquid via teaspoon: Result: 6= enters airway/below vocal folds/ejected Honey Thick Liquid via teaspoon: Result: 6= enters airway/below vocal folds/ejected Pudding via teaspoon: Result: 1= does not enter airway Comment: Esophageal screen - Mild retention in the lower esophagus. 1/4 Cookie: Result: 1= does not enter airway Pudding via teaspoon Trial 2: Result: 1= does not enter airway Thin Liquid via teaspoon Chin tuck: Result: 1= does not enter airway Thin Liquid via teaspoon Chin tuck Trial 2: Result: 5= enters airways/contacts vocal folds/not ejected Thin Liquid via teaspoon Right head turn: Result: 7= enters airways/below vocal folds/not ejected despite effort [place] [address] Thick Liquid via teaspoon Chin tuck: Result: 2= enter airway/above vocal folds/ejected Comment: Post prandial aspiration of previous residues [place] [address] Thick Liquid via teaspoon Chin tuck Trial 2: Result: 1= does not enter airway [place] [address] Thick Liquid via small single sip: cup Chin tuck: Result: 1= does not enter airway [place] [address] Thick Liquid via large single sip: cup Chin tuck: Result: 5= enters airways/contacts vocal folds/not ejected Oral Phase Labial Seal: Interlabial escape, no progression to anterior lip Tongue Control During Bolus Hold: Posterior escape of less than half of bolus Bolus Preparation/Mastication: Disorganized chewing/mashing with solid pieces of bolus unchewed (small pieces of cookie appeared un-chewed) Bolus Transport/Lingual Motion: Repetitive/disorganized tongue motion Oral Residue: Majority of bolus remaining (piecemeal deglutition of cookie) Pharyngeal Phase Initiation of Pharyngeal Swallow: Bolus head at posterior laryngeal surgace of epiglottis Soft Palate Elevation: No bolus between soft palate and pharyngeal wall Laryngeal Elevation: Partial superior movement thyroid cart/partial apprx aryt- epig petiole Anterior Hyoid Excursion: Partial anterior movement Epiglottic Movement: Partial inversion Laryngeal Vestibule Closure at Height of Swallow: Incomplete; narrow column of air/contrast in laryngeal vestibule Pharyngeal Stripping Wave: Present - diminished Pharyngoesophageal Segment Opening: Parital distension and partial duration; parital obstruction of flow Tongue Base Retraction: Narrow column of contrast between tongue base & post. pharyngeal wall Pharyngeal Residue: Collection of residue within or on pharyngeal structures Esophageal Phase Esophageal Clearance: Esophageal retention Diagnosis/Impression Diagnosis: Moderate-severe oropharyngeal dysphagia R13.12 .: The oral phase is marked by... -Decreased bolus control w/ posterior loss of <1/2 of some liquid trials to the posterior surface of the epiglottis prior to swallow onset. -Lingual pumping for A-P transport. -Slowed mastication of cookie w/ small pieces not fully chewed. Piecemeal deglutition of cookie. The pharyngeal phase is marked by... -Decreased pharyngeal motility due to decreased TB retraction, pharyngeal stripping wave, and mildly reduced UES opening/duration. Mild pharyngeal residues. -Decreased airway closure due to decreased laryngeal elevation, partial epiglottic inversion, decreased anterior hyoid excursion. SILENT aspiration of thin liquids via tsp. Overt aspiration of mildly and moderately thick liquids via tsp w/ multiple reflexive coughs/throat clears and re-swallows w/ complete ejection. Overt aspiration of thin liquids via tsp w/ R head turn w/ weak, ineffective cough response. Deep laryngeal penetration of mildly thick liquids via large cup sip w/ chin tuck. Increased viscosity (mildly thick), decreased bolus size (tsp sips), and chin tuck were most effective in reducing risk for aspiration. The esophageal phase is marked by... -Mild retention of barium pudding in the lower esophagus. Recommendations Diet: Minced and Moist Textures and Mildly Thick Liquids Compensatory Strategies: Small Bites, Liquid by Teaspoon Only, Slow Rate, Chin Tuck (WITH ALL SIPS), Alternate bites/solids and sips/liquids, Sitting upright and Remain sitting upright for 30 minutes after PO intake Supervision: 1:1 Direct Supervision (ASSIST FEEDING NEEDED TO ENSURE USE OF TSP SIPS) Recommend Repeat Modified Barium Swallow: Yes (1-3 weeks after implementation of oropharyngeal exercise program) Need for Skilled Speech Therapy Services: Yes Comment: -Train the patient, family, and staff in recommended precautions to decrease risk for aspiration. -Ongoing assessment of diet tolerance. -Train in frequent oral care. -Train in oropharyngeal exercise program (lingual resistance and coordination, effortful swallows, CTAR, Belkis). Education Completed: 1. Described result of evaluation., 2. Pt understands evaluation & agrees with goals and treatment plan. and 7. Pt requires further education on strategies & risks. Status Active ST Patient: Active Contact Information [facility]:: Lulu Villarreal M.A. [facility]-CARPET SEWING MACHINE OPERATOR Speech-Language Pathologist [facility] [address] [place] [address] [email or web address] [phone]
[2025-05-29 16:07] LABS: Magnesium 2.1 mg/dL (1.5-2.2)
[2025-05-29 16:13] LABS: Anion Gap 11 (5-15); BUN 21 mg/dL (4-19); BUN/Creat Ratio 19.0 RATIO (10-20); Calcium,Total 8.0 mg/dL (7.6-11.0); Carbon Dioxide 22.3 mmol/L (21.0-32.0); Chloride 110 mmol/L (98-108); Estimated Creatinine Clearance 56.74 ml/min (50-250); Glucose 90 mg/dL (70-99); Potassium 3.8 mmol/L (3.3-5.1)
--- NOTE | 2025-05-29 22:10 | PCM.HOSP.N ---
Hospitalist Note Patient with 12 beat VT, asymptomatic, mag, K normal, diet re-ordered and oral coreg restarted.
--- NOTE | 2025-05-29 23:58 | CPS ---
Offered pt bipap, pt refused,
[2025-05-30 03:55] VITALS: BP 122/76; PULSE 83; RESP 18; TEMP 36.1; O2SAT 96
[2025-05-30 05:12] VITALS: BMI 29.6
[2025-05-30 06:40] LABS: Anion Gap 10 (5-15); BUN 21 mg/dL (4-19); BUN/Creat Ratio 19.0 RATIO (10-20); Calcium,Total 7.5 mg/dL (7.6-11.0); Carbon Dioxide 23.3 mmol/L (21.0-32.0); Chloride 108 mmol/L (98-108); Estimated Creatinine Clearance 55.36 ml/min (50-250); Glucose 75 mg/dL (70-99); Potassium 3.0 mmol/L (3.3-5.1)
[2025-05-30 06:54] VITALS: O2SAT 93
[2025-05-30 07:37] LABS: Hematocrit 28.9 % (37-47); Hemoglobin 8.1 g/dL (12.0-15.0); Immature Granulocytes Count 0.030 X10^3/uL (0.0-0.0); Mean Corp Hgb Conc 28.0 g/dL (32-36); Mean Corpuscular Volume 80.1 fL (81-99); Mean Platelet Vol. 10.6 fl (6.2-12.0); NRBC Flagged by Analyzer 0 % (0-5); POSITIVE MORPHOLOGY YES; Platelet Count 267 K/mm3 (150-450); Red Blood Count 3.61 M/mm3 (4.2-5.4); White Blood Count 6.2 K/mm3 (4.4-11.0)
[2025-05-30 08:01] LABS: Differential Indicated SCAN CRITERIA MET
[2025-05-30] MEDS: Pantoprazole Sodium 40 MG in 0.9% Normal Saline (100mL MB+) 100 ML 300 MG IV ×2 (09:32→21:04)
[2025-05-30] MEDS: Potassium Chloride 10mEq/100mL 10 MEQ/100 ML IV.SOLN. 100 MEQ IV BOLUS ×4 (09:38→14:08)
[2025-05-30 09:46] VITALS: BP 132/94; PULSE 83; RESP 17; TEMP 36.6; O2SAT 94
[2025-05-30 11:43] LABS: Magnesium 2.0 mg/dL (1.5-2.2)
--- NOTE | 2025-05-30 14:05 | PN_ITS ---
Subjective Subjective Patient seen and examined. She had no active complaints. She had an uneventful night. She has been placed on a modified diet by speech therapy. Review of systems is otherwise negative. Objective Data Objective Data Vital Signs: Vital Signs Temp Pulse Resp BP Pulse Ox O2 Del Method O2 Flow Rate 97.9 F 83 17 132/94 H 94 Room Air 2 05/30/25 09:46 05/30/25 09:46 05/30/25 09:46 05/30/25 09:46 05/30/25 09:46 05/30/25 09:46 05/30/25 11:02 FiO2 4 05/26/25 08:00 Oxygen Flow Rate (L/min) 2 Oxygen Delivery Method Room Air Weight: 177 lb 14.609 oz Body Mass Index (BMI) 29.6 Intake & Output: Intake and Output for Last 24 Hours 05/28/25 05/29/25 05/30/25 23:59 23:59 23:59 Intake Total 1350.0 / 1350.0 3017.50 / 3017.50 860 / 860 Output Total 850 / 850 950 / 950 550 / 550 Balance 500.0 / 500.0 2067.50 / 2067.50 310 / 310 Lab / Micro Data 05/30/25 05:13 05/30/25 05:13 Labs: Laboratory Results - last 24 hr 05/29/25 15:10: Sodium 144, Potassium 3.8, Chloride 110 H, Carbon Dioxide 22.3, Anion Gap 11, BUN 21 H, Creatinine 1.10, Estim Creat Clear Calc 56.74, Est GFR (MDRD) Non-Af 57 L, BUN/Creatinine Ratio 19.0, Glucose 90, Calcium 8.0, Magnesium 2.1 05/30/25 05:13: WBC 6.2, RBC 3.61 L, Hgb 8.1 L, Hct 28.9 L, MCV 80.1 L, MCH 22.4 L, MCHC 28.0 L, RDW Std Deviation Not Reportable, RDW Coeff of Federico Not Reportable, Plt Count 267, MPV 10.6, Immature Gran % (Auto) 0.500, Neut % (Auto) 67.7, Lymph % (Auto) 22.0, [place] % (Auto) 6.5, Eos % (Auto) 2.8, Baso % (Auto) 0.5, Absolute Neuts (auto) 4.2, Absolute Lymphs (auto) 1.36, Nucleated RBC % 0, Differential Comment COMMENT, Sodium 141, Potassium 3.0 L, Chloride 108, Carbon Dioxide 23.3, Anion Gap 10, BUN 21 H, Creatinine 1.12, Estim Creat Clear Calc 55.36, Est GFR (MDRD) Non-Af 56 L, BUN/Creatinine Ratio 19.0, Glucose 75, C alcium 7.5 L 05/30/25 10:45: Magnesium 2.0 Micro: Microbiology 05/29/25 10:00 Stool Enteric Bacteriology - Final 05/29/25 10:00 Stool Clostridioides difficile (PCR) - Final 05/21/25 15:15 Blood Culture (Wb) - Central Line Blood Culture - Final No growth in 5 days. 05/21/25 14:15 Sputum, Induced/Lukens Gram Stain - Final 05/21/25 14:15 Sputum, Induced/Lukens Respiratory Culture - Final 05/21/25 17:40 Urine Catheter - Fiore Urine Culture - Final Escherichia coli Physical Exam Const alert, oriented x3 and no apparent distress Constitutional Narrative: frail, weak General Appearance: cooperative HEENT normocephalic, head/scalp atraumatic, moist oral mucous membranes and oropharynx normal Eyes PERRL and EOMs intact bilaterally Neck no lymphadenopathy and supple Lymph Lymphatic: no lymphedema noted Resp normal respiratory effort, normal air movement, no retractions, no use of accessory muscles and clear to auscultation bilaterally Resp Narrative: mildly diminished breath sounds bibasally, no wheezes or crackles. On 3L of oxygen by nasal canula. Cardio regular rate, regular rhythm, S1 normal heart sound, S2 normal heart sound and no murmurs Cardio Narrative: Irregularly irregular GI normal to inspection, nondistended, normoactive bowel sounds, soft to palpation, non-tender, non-distended and hepatosplenomegaly Extremity normal to inspection, full ROM and normal capillary refill Extremity Narrative: Bilateral lower extremity edema 2+ edema. General Extremity: edema bilateral lower extremity Details: mild and no tenderness to palpation of joints or extremities Neuro no focal motor deficits and no sensory deficits noted Neuro Narrative: Right sided weakness, which is chronic Sensorium / Orientation: awake and alert Motor Exam: general weakness Psych thought process normal and cooperative Appearance: appropriate Assessment & Plan Assessment/Plan (1) Hypernatremia: (2) Dysphagia: (3) (HFpEF) heart failure with preserved ejection fraction: (4) Acute blood loss anemia: (5) Atrial fibrillation with RVR: PLAN: Plan #Acute hypoxic respiratory failure * thought to be due to CHF and pneumonia * on zosyn. Was intubated and subsequently on 05/25/2025. #Acute on chronic HFpEF * EF is normal at 60%, and mild concentric LVH and apical hypertrophic cardiomyopathy present. * received IV lasix 40mg x 1. * pro BNP: [id number] * requiring 3L of oxygen today. Titrate oxygen to maintain sats >90% * breathing treatment with bronchodilators. * continue diuresing with IV lasix. * #Atrial fibrillation with RVR * new diagnosis. not anticoagulated. * Not on rate limiting medications due to hypotension. * HR now improved. On carvedilol, now resumed. * #Diarrhea * patient developed diarrhea overnight and had several episodes of diarrhea. * resolving. Enteric pathogen and C Diff screen negative. * hydrate with IVF 0.45 NS ~ 100cc/hr. * diarrhea is resolving. * #Hypokalemia: potassium today is 3. Will replace aggressively and trend. #Acute blood loss anemia * Initial Hb on admission was 3.6. * transfused with 4 units of PRBCs. * Hb today is 8.1. * received IV iron. On IV PPI * EGD showed non bleeding duodenal ulcers * iron studies showed iron deficiency. * transfuse to keep HB >7 * #Dysphagia * speech therapy on board. * now on modified diet by speech therapy * Barium swallow showed moderate-severe oropharyngeal dysphagia * #RAMEZ on CKD: Resovled. Cr is now down to 1.12. #Hypernatremia: resolved. Na is 141. #History of stroke: not on anticoagulation or antiplatelets. s/p right sided hemiparesis. #Hypertension: on amlodipine, carvedilol and hydralazine which are on hold due to hypotension. DVT prophylaxis: SCDs. Not anticoagulated o/a of acute on chronic anemia Charges/Coding Visit Charges Inpatient E&M: 41958 Subs Hosp L2
--- NOTE | 2025-05-30 14:37 | EX.PCM.PN.GI ---
Subjective Subjective - denies pain - reports she is eating slowing, denies cough, choking - denies dysphagia - denies any pain Objective Data Objective Data EGD 05/23/2025 No gross lesions were noted in the lower third of the esophagus. Many non-bleeding linear gastric ulcers with no stigmata of bleeding were found in the gastric body. The largest lesion was 6 mm in largest dimension. Many non-bleeding cratered duodenal ulcers with no stigmata of bleeding were found in the entire duodenum. - no specimens collected MBS 05/29/2025 Recommendations Diet: Minced and Moist Textures and Mildly Thick Liquids Compensatory Strategies: Small Bites, Liquid by Teaspoon Only, Slow Rate, Chin Tuck (WITH ALL SIPS), Alternate bites/solids and sips/liquids, Sitting upright and Remain sitting upright for 30 minutes after PO intake Supervision: 1:1 Direct Supervision (ASSIST FEEDING NEEDED TO ENSURE USE OF TSP SIPS) Recommend Repeat Modified Barium Swallow: Yes (1-3 weeks after implementation of oropharyngeal exercise program) Need for Skilled Speech Therapy Services: Yes Vital Signs: Vital Signs Temp Pulse Resp BP Pulse Ox O2 Del Method O2 Flow Rate 97.9 F 83 17 132/94 H 94 Room Air 2 05/30/25 09:46 05/30/25 09:46 05/30/25 09:46 05/30/25 09:46 05/30/25 09:46 05/30/25 09:46 05/30/25 11:02 FiO2 4 05/26/25 08:00 Oxygen Flow Rate (L/min) 2 Oxygen Delivery Method Room Air Weight: 177 lb 14.609 oz Body Mass Index (BMI) 29.6 Intake & Output: Intake and Output for Last 24 Hours 05/28/25 05/29/25 05/30/25 23:59 23:59 23:59 Intake Total 1350.0 / 1350.0 3017.50 / 3017.50 960 / 960 Output Total 850 / 850 950 / 950 550 / 550 Balance 500.0 / 500.0 2067.50 / 2067.50 410 / 410 Lab / Micro Data Attestation: I reviewed the patient's lab results. 05/30/25 05:13 05/30/25 05:13 Labs: Laboratory Results - last 24 hr 05/29/25 15:10: Sodium 144, Potassium 3.8, Chloride 110 H, Carbon Dioxide 22.3, Anion Gap 11, BUN 21 H, Creatinine 1.10, Estim Creat Clear Calc 56.74, Est GFR (MDRD) Non-Af 57 L, BUN/Creatinine Ratio 19.0, Glucose 90, Calcium 8.0, Magnesium 2.1 05/30/25 05:13: WBC 6.2, RBC 3.61 L, Hgb 8.1 L, Hct 28.9 L, MCV 80.1 L, MCH 22.4 L, MCHC 28.0 L, RDW Std Deviation Not Reportable, RDW Coeff of Federico Not Reportable, Plt Count 267, MPV 10.6, Immature Gran % (Auto) 0.500, Neut % (Auto) 67.7, Lymph % (Auto) 22.0, [place] % (Auto) 6.5, Eos % (Auto) 2.8, Baso % (Auto) 0.5, Absolute Neuts (auto) 4.2, Absolute Lymphs (auto) 1.36, Nucleated RBC % 0, Differential Comment COMMENT, Sodium 141, Potassium 3.0 L, Chloride 108, Carbon Dioxide 23.3, Anion Gap 10, BUN 21 H, Creatinine 1.12, Estim Creat Clear Calc 55.36, Est GFR (MDRD) Non-Af 56 L, BUN/Creatinine Ratio 19.0, Glucose 75, Calcium 7.5 L 05/30/25 10:45: Magnesium 2.0 Micro: Microbiology 05/29/25 10:00 Stool Enteric Bacteriology - Final 05/29/25 10:00 Stool Clostridioides difficile (PCR) - Final 05/21/25 15:15 Blood Culture (Wb) - Central Line Blood Culture - Final No growth in 5 days. 05/21/25 14:15 Sputum, Induced/Lukens Gram Stain - Final 05/21/25 14:15 Sputum, Induced/Lukens Respiratory Culture - Final 05/21/25 17:40 Urine Catheter - Fiore Urine Culture - Final Escherichia coli Assessment & Plan Assessment/Plan (1) Acute blood loss anemia: PLAN: Plan 59y/o female admitted with severe anemia (Hgb 3.6) requiring 4u PRBC. Currently HGB 9.3 on IV Fe and PPI. EGD revealed numerous cratered duodenal ulcers and multiple linear gastric ulcers (largest 6mm), none actively bleeding, no stigmata of recent bleed, no biopsies taken. Plan for continued IV PPI with transition to PO when stable, continued Fe supplementation, strict avoidance of NSAIDS/ASA. Recommend repeat EGD OP in 8-12 weeks to assess healing of gastric ulcers and obtain biopsies. She recently reported new onset diarrhea; C. Diff and enteric pathogen panel negative. I have reviewed with Dr. Mcrae and recommend transitioning to PO PPI BID. Avoid use of NSAIDS.
[2025-05-30 15:43] VITALS: BP 109/71; PULSE 93; RESP 17; TEMP 36.6; O2SAT 92
[2025-05-30] MEDS: 0.9% Saline Lock 10 ML Syringe IV ×2 (15:47→21:00)
[2025-05-30 18:30] VITALS: BP 126/74; PULSE 94; RESP 16; TEMP 36.6; O2SAT 94
[2025-05-30 20:37] VITALS: O2SAT 96
--- NOTE | 2025-05-30 20:37 | CPS ---
Patient refused PAP therapy for night time use.
[2025-05-31] VITALS (7 sets, daily range): BP systolic 116–132; BP diastolic 67–84; PULSE 76–100; RESP 15–18; TEMP 36.2–37.3; O2SAT 80–96; BMI 32.3
[2025-05-31] MEDS: 0.9% Saline Lock 10 ML Syringe IV ×3 (02:15→22:07)
[2025-05-31 02:25] LABS: Differential Indicated SCAN CRITERIA MET; Hematocrit 25.2 % (37-47); Hemoglobin 7.3 g/dL (12.0-15.0); Immature Granulocytes Count 0.010 X10^3/uL (0.0-0.0); Mean Corp Hgb Conc 29.0 g/dL (32-36); Mean Corpuscular Volume 78.8 fL (81-99); Mean Platelet Vol. 10.0 fl (6.2-12.0); NRBC Flagged by Analyzer 0 % (0-5); POSITIVE MORPHOLOGY YES; Platelet Count 246 K/mm3 (150-450); Red Blood Count 3.20 M/mm3 (4.2-5.4); White Blood Count 6.8 K/mm3 (4.4-11.0)
[2025-05-31 02:45] LABS: Anion Gap 9 (5-15); BUN 21 mg/dL (4-19); BUN/Creat Ratio 18.6 RATIO (10-20); Calcium,Total 7.3 mg/dL (7.6-11.0); Carbon Dioxide 21.4 mmol/L (21.0-32.0); Chloride 110 mmol/L (98-108); Estimated Creatinine Clearance 55.86 ml/min (50-250); Glucose 92 mg/dL (70-99); Potassium 3.7 mmol/L (3.3-5.1)
[2025-05-31 03:23] LABS: Anisocytosis 1+
[2025-05-31] MEDS: Pantoprazole Sodium 40 MG in 0.9% Normal Saline (100mL MB+) 100 ML 300 MG IV ×2 (09:42→22:07)
--- NOTE | 2025-05-31 11:54 | PN_ITS ---
Subjective Subjective Patient seen and examined with her nurse by her bedside. She had no active complaints and was on 2L of oxygen. Review of systems is otherwise negative. Objective Data Objective Data Vital Signs: Vital Signs Temp Pulse Resp BP Pulse Ox O2 Del Method O2 Flow Rate 97.9 F 76 15 132/84 H 95 Nasal Cannula 2 05/31/25 08:27 05/31/25 08:27 05/31/25 08:27 05/31/25 08:27 05/31/25 08:27 05/31/25 08:33 05/31/25 08:33 FiO2 4 05/26/25 08:00 Oxygen Flow Rate (L/min) 2 Oxygen Delivery Method Nasal Cannula Weight: 194 lb 3.636 oz Body Mass Index (BMI) 32.3 Intake & Output: Intake and Output for Last 24 Hours 05/29/25 05/30/25 05/31/25 23:59 23:59 23:59 Intake Total 3017.50 / 3017.50 2555.00 / 2555.00 100 / 100 Output Total 950 / 950 975 / 975 200 / 200 Balance 2067.50 / 2067.50 1580.00 / 1580.00 -100 / -100 Lab / Micro Data 05/31/25 02:14 05/31/25 02:14 Labs: Laboratory Results - last 24 hr 05/31/25 02:14: WBC 6.8, RBC 3.20 L, Hgb 7.3 L, Hct 25.2 L, MCV 78.8 L, MCH 22.8 L, MCHC 29.0 L, RDW Std Deviation TNP, RDW Coeff of Federico TNP, Plt Count 246, MPV 10.0, Immature Gran % (Auto) 0.100, Neut % (Auto) 71.7 H, Lymph % (Auto) 18.5 L, [place] % (Auto) 6.6, Eos % (Auto) 2.8, Baso % (Auto) 0.3, Absolute Neuts (auto) 4.9, Absolute Lymphs (auto) 1.25, Nucleated RBC % 0, Anisocytosis 1+, Sodium 140, Potassium 3.7, Chloride 110 H, Carbon Dioxide 21.4, Anion Gap 9, BUN 21 H, Creatinine 1.11, Estim Creat Clear Calc 55.86, Est GFR (MDRD) Non-Af 57 L, BUN/Creatinine Ratio 18.6, Glucose 92, Calcium 7.3 L Micro: Microbiology 05/29/25 10:00 Stool Enteric Bacteriology - Final 05/29/25 10:00 Stool Clostridioides difficile (PCR) - Final 05/21/25 15:15 Blood Culture (Wb) - Central Line Blood Culture - Final No growth in 5 days. 05/21/25 14:15 Sputum, Induced/Lukens Gram Stain - Final 05/21/25 14:15 Sputum, Induced/Lukens Respiratory Culture - Final 05/21/25 17:40 Urine Catheter - Fiore Urine Culture - Final Escherichia coli Physical Exam Const alert and no apparent distress Constitutional Narrative: frail, weak General Appearance: cooperative HEENT normocephalic, head/scalp atraumatic, moist oral mucous membranes and oropharynx normal Eyes PERRL and EOMs intact bilaterally Neck no lymphadenopathy and supple Lymph Lymphatic: no lymphedema noted Resp Resp Narrative: mildly diminished breath sounds bibasally, no wheezes or crackles. Down to 2L of oxygen by nasal canula. Cardio regular rate, regular rhythm, S1 normal heart sound, S2 normal heart sound and no murmurs GI normal to inspection, nondistended, normoactive bowel sounds, soft to palpation, non-tender and non-distended Extremity normal to inspection, full ROM, normal capillary refill and no clubbing, cyanosis or edema General Extremity: edema bilateral lower extremity Details: mild and no tenderness to palpation of joints or extremities Neuro no focal motor deficits and no sensory deficits noted Neuro Narrative: Right sided weakness, which is chronic Sensorium / Orientation: awake and alert Motor Exam: general weakness Psych thought process normal and cooperative Appearance: appropriate Assessment & Plan Assessment/Plan (1) Hypernatremia: (2) Dysphagia: (3) (HFpEF) heart failure with preserved ejection fraction: (4) Acute blood loss anemia: (5) Atrial fibrillation with RVR: PLAN: Plan #Acute hypoxic respiratory failure * thought to be due to CHF and pneumonia * on zosyn. Was intubated and subsequently on 05/25/2025. * now down to 2L of oxygen. #Acute on chronic HFpEF * EF is normal at 60%, and mild concentric LVH and apical hypertrophic cardiomyopathy present. * received IV lasix 40mg x 1. * pro BNP: 84683 * down to 2L of oxygen today. Titrate oxygen to maintain sats >90% * breathing treatment with bronchodilators. * continue diuresing with IV lasix. * #Atrial fibrillation with RVR * new diagnosis. not anticoagulated. * Not on rate limiting medications due to hypotension. * HR now improved. On carvedilol, now resumed. * #Diarrhea * patient developed diarrhea overnight and had several episodes of diarrhea. * resolving. Enteric pathogen and C Diff screen negative. * diarrhea is improving * diarrhea is resolving. * #Hypokalemia: Resolving. K is 3.7. Potassium today is 3. Will replace aggressively and trend. #Acute blood loss anemia * Initial Hb on admission was 3.6. * transfused with 4 units of PRBCs. * Hb today is down to 7.3. * received IV iron. On IV PPI * EGD showed non bleeding cratered duodenal ulcers and multiple linear gastric ulcers (nonbleeding) * iron studies showed iron deficiency. * transfuse to keep HB >7 * to have repeat EGD in 8-12 weeks to evaluate for healing of gastric ulcers and obtain biopsies. * #Dysphagia * speech therapy on board. * now on modified diet by speech therapy * Barium swallow showed moderate-severe oropharyngeal dysphagia * #RAMEZ on CKD: Resolved. Cr is 1.11 today. #Hypernatremia: resolved. Na is 141. #History of stroke: not on anticoagulation or antiplatelets. s/p right sided hemiparesis. #Hypertension: on amlodipine, carvedilol and hydralazine which are on hold due to hypotension. DVT prophylaxis: SCDs. Not anticoagulated o/a of acute on chronic anemia Charges/Coding Visit Charges Inpatient E&M: 63148 Subs Hosp L2
--- NOTE | 2025-05-31 15:47 | CHAPLAIN ---
Type of Pastoral Visit ___ Initial Visit _x__ Follow-up Visit ___ On-call Visit ___ General Patient Visit ___ Spiritual Assessment ___ Family Conference ___ Bereavement ___ Rapid Response ___ Code Blue ___ Other (describe below) Pastoral Care Referral From ___ Patient ___ Family ___ Nurse ___ Physician ___ Home Care Consultant ___ Identity Management Consultant ___ Other (describe below) Sacrament/Intervention _x__ Active listening ___ Anointing ___ Adventist ___ Bereavement ___ Communion ___ Emelina exploration ___ ___ Life review _x__ Prayer ___ Reconciliation ___ Sacrament of Sick ___ Supportive presence ___ Wedding ___ Other (describe below) Pastoral Comments follow up visit to patient that had been seen in ICU when intubated; pt is recovering in PCU, awake, and alert; pt is introduced to this internal affairs investigator and given explanation of following her care while in ICU and meeting her brother; pt has some speech difficulties due to previous stroke but is able to communicate and give answers to questions; pt is anticipating going home; pt [place]; pt denies needs or worries but welcomes a prayer for support today
--- NOTE | 2025-05-31 23:39 | PCM.HOSP.N ---
Hospitalist Note Patient with 21 beat asymptomatic VT, recent mag normal, recent K normal. Giving her BB night dose now.
[2025-06-01 04:00] VITALS: BP 114/83; PULSE 92; RESP 16; TEMP 36.9; O2SAT 98
[2025-06-01 05:18] LABS: Hematocrit 26.8 % (37-47); Hemoglobin 7.8 g/dL (12.0-15.0); Immature Granulocytes Count 0.030 X10^3/uL (0.0-0.0); Mean Corp Hgb Conc 29.1 g/dL (32-36); Mean Corpuscular Volume 79.1 fL (81-99); Mean Platelet Vol. 10.2 fl (6.2-12.0); NRBC Flagged by Analyzer 0 % (0-5); POSITIVE MORPHOLOGY YES; Platelet Count 287 K/mm3 (150-450); Red Blood Count 3.39 M/mm3 (4.2-5.4); White Blood Count 7.5 K/mm3 (4.4-11.0)
[2025-06-01 05:20] VITALS: BMI 32.2
[2025-06-01 05:23] LABS: Differential Indicated SCAN CRITERIA MET
[2025-06-01 05:41] LABS: Anion Gap 9 (5-15); BUN 22 mg/dL (4-19); BUN/Creat Ratio 16.5 RATIO (10-20); Calcium,Total 7.3 mg/dL (7.6-11.0); Carbon Dioxide 20.2 mmol/L (21.0-32.0); Chloride 112 mmol/L (98-108); Estimated Creatinine Clearance 48.22 ml/min (50-250); Glucose 108 mg/dL (70-99); Potassium 3.7 mmol/L (3.3-5.1)
--- NOTE | 2025-06-01 06:40 | PN.HOSP_ITS ---
Hospitalist Note staff rn noted possible vaginal bleeding, concern may have contributed to Hgb.
--- NOTE | 2025-06-01 06:40 | PCM.HOSP.N ---
Hospitalist Note staff combat information center officer noted possible vaginal bleeding, concern may have contributed to Hgb.
[2025-06-01 06:48] LABS: Anisocytosis 1+
[2025-06-01 06:50] VITALS: O2SAT 94
--- NOTE | 2025-06-01 08:26 | US_ITS ---
PROCEDURE: TRANSVAGINAL NON- 06/01/2025 REASON FOR EXAM: VAGINAL BLEEDING Patient is postmenopausal. TECHNIQUE: Procedure Code: USTVAG Modality: US Procedure: TRANSVAGINAL NON- COMPARISON: None FINDINGS: Measurements: Uterus: 6.4 cm x 5.2 cm x 2.8 cm with a volume of 49.11 mL. A nabothian cyst is seen. Endometrial Thickness: 21.4 mm. It is hyperechoic. Abnormal thickness for patient's postmenopausal state. Right Ovary: 2.3 cm x 1.7 cm x 1.1 cm with a volume of 2.34 mL. Left Ovary: 1.5 cm x 0.9 cm x 0.9 cm with a volume of 0.61 mL. Uterus: Normal size, myometrial echotexture, and contour. Endometrium: Abnormally thickened at 21.4 mm. Right ovary: Normal size and echotexture. Left ovary: Normal size and echotexture. Other: Small amount of free fluid surrounding the left adnexa. US/Transvaginal Non- IMPRESSION: Endometrial thickening. Clinical correlation recommended. Reading Location: [place] [address]
[2025-06-01] MEDS: Pantoprazole Sodium 40 MG in 0.9% Normal Saline (100mL MB+) 100 ML 300 MG IV ×2 (09:20→21:23)
[2025-06-01 09:33] VITALS: BP 110/77; PULSE 77; RESP 18; TEMP 36.2; O2SAT 94
[2025-06-01 10:43] LABS: Magnesium 2.0 mg/dL (1.5-2.2)
--- NOTE | 2025-06-01 11:12 | CASEMGMT ---
Patient out of room for testing. [facility] called patient's mother Johana to discuss discharge planning. Per Johana, plan is still for patien to return home with family support. Johana declines HHC at this time and wants to see how they do at home. [facility] informed Johana that should they reconsider HHC, they will need to follow up with PCP to setup HHC, Johana voiced understanding. Johana states family will transport patient home at discharge. [facility] discussed possible home oxygen at discharge and could be setup over the weekend, Johana voiced understanding. W[facility] informed Johana that HHC would be in discharge folder for future reference, Johana voiced appreciation. Johana had no further questions or concerns. [facility] requested HHC list from [place] strategic planning specialist. Green sheet placed on chart for possible home oxygen.
--- NOTE | 2025-06-01 11:40 | CASEMGMT ---
Discharge Planning A list of?HH providers including quality and resource use data and consistent with the patient's preferred geographic region, medical needs, and insurance network was created in [facility] Guide.? This list was provided to the RN SHWETA. Sandy Collier, Discharge Planning Asst.
--- NOTE | 2025-06-01 13:01 | PN_ITS ---
Subjective Subjective Patient seen and examined with her nurse by her bedside. She had no active complaints today. She was noted to have a brief run of nonsustained V. tach overnight. Her nurse also tells me that the patient was noted to have vaginal bleeding overnight. Gynecology has been consulted. Review of systems otherwise negative. Objective Data Objective Data Vital Signs: Vital Signs Temp Pulse Resp BP Pulse Ox O2 Del Method O2 Flow Rate 97.1 F L 77 18 110/77 94 Nasal Cannula 2 06/01/25 09:06/01/25 09:33 06/01/25 09:33 06/01/25 09:33 06/01/25 09:33 06/01/25 09:33 06/01/25 09:33 FiO2 4 05/26/25 08:00 Oxygen Flow Rate (L/min) 2 Oxygen Delivery Method Nasal Cannula Weight: 193 lb 5.526 oz Body Mass Index (BMI) 32.2 Intake & Output: Intake and Output for Last 24 Hours 05/30/25 05/31/25 06/01/25 23:59 23:59 23:59 Intake Total 2555.00 / 2555.00 1050 / 1050 340 / 340 Output Total 975 / 975 850 / 1200 1150 / 1150 Balance 1580.00 / 1580.00 200 / -150 -810 / -810 Lab / Micro Data 06/01/25 05:10 06/01/25 05:10 Labs: Laboratory Results - last 24 hr 06/01/25 05:10: WBC 7.5, RBC 3.39 L, Hgb 7.8 L, Hct 26.8 L, MCV 79.1 L, MCH 23.0 L, MCHC 29.1 L, RDW Std Deviation TNP, RDW Coeff of Federico TNP, Plt Count 287, MPV 10.2, Immature Gran % (Auto) 0.400, Neut % (Auto) 73.6 H, Lymph % (Auto) 15.4 L, [place] % (Auto) 8.0, Eos % (Auto) 2.3, Baso % (Auto) 0.3, Absolute Neuts (auto) 5.6, Absolute Lymphs (auto) 1.16, Nucleated RBC % 0, Anisocytosis 1+, Sodium 141, Potassium 3.7, Chloride 112 H, Carbon Dioxide 20.2 L, Anion Gap 9, BUN 22 H , Creatinine 1.34 H, Estim Creat Clear Calc 48.22 L, Est GFR (MDRD) Non-Af 45 L, BUN/Creatinine Ratio 16.5, Glucose 108 H, Calcium 7.3 L, Magnesium 2.0 Micro: Microbiology 05/29/25 10:00 Stool Enteric Bacteriology - Final 05/29/25 10:00 Stool Clostridioides difficile (PCR) - Final 05/21/25 15:15 Blood Culture (Wb) - Central Line Blood Culture - Final No growth in 5 days. 05/21/25 14:15 Sputum, Induced/Lukens Gram Stain - Final 05/21/25 14:15 Sputum, Induced/Lukens Respiratory Culture - Final 05/21/25 17:40 Urine Catheter - Fiore Urine Culture - Final Escherichia coli Radiography Diagnostic Testing: Radiology Impression Transvaginal US 06/01/25 08:26 IMPRESSION: Endometrial thickening. Clinical correlation recommended. Reading Location: [place] [id number] Physical Exam Const alert, oriented x3 and no apparent distress Constitutional Narrative: frail, weak General Appearance: cooperative HEENT normocephalic, head/scalp atraumatic, moist oral mucous membranes and oropharynx normal Eyes PERRL and EOMs intact bilaterally Neck no lymphadenopathy and supple Lymph Lymphatic: no lymphedema noted Resp Resp Narrative: mildly diminished breath sounds bibasally, no wheezes or crackles. Down to 2L of oxygen by nasal canula. Cardio regular rate, regular rhythm, S1 normal heart sound, S2 normal heart sound and no murmurs Cardio Narrative: Irregularly irregular GI normal to inspection, nondistended, normoactive bowel sounds, soft to palpation and non-tender Extremity normal to inspection, full ROM and normal capillary refill Extremity Narrative: Bilateral lower extremity edema 2+ edema. General Extremity: no tenderness to palpation of joints or extremities Neuro no focal motor deficits and no sensory deficits noted Neuro Narrative: Right sided weakness, which is chronic Sensorium / Orientation: awake, alert, oriented to person, oriented to place and oriented to time Motor Exam: general weakness Psych thought process normal and cooperative Appearance: appropriate Assessment & Plan Assessment/Plan (1) Hypernatremia: (2) Dysphagia: (3) (HFpEF) heart failure with preserved ejection fraction: (4) Acute blood loss anemia: (5) Atrial fibrillation with RVR: PLAN: Plan #Acute hypoxic respiratory failure * thought to be due to CHF and pneumonia * on zosyn. Was intubated and subsequently on 05/25/2025. * now down to 2L of oxygen. * Titrate oxygen to maintain sats above 90%. Breathing treatments modalities. #Acute on chronic HFpEF * EF is normal at 60%, and mild concentric LVH and apical hypertrophic cardiomyopathy present. * received IV lasix 40mg x 1. * pro BNP: 93949 * down to 2L of oxygen today. Titrate oxygen to maintain sats >90% * breathing treatment with bronchodilators. * She is in cumulative positive balance by 6.885 L. * On p.o. Lasix * #Atrial fibrillation with RVR * new diagnosis. not anticoagulated. * Not on rate limiting medications due to hypotension. * HR now improved. On carvedilol, now resumed. * #Diarrhea * patient developed diarrhea overnight and had several episodes of diarrhea. * resolving. Enteric pathogen and C Diff screen negative. * diarrhea has largely resolved * #Hypokalemia: Resolving. K is 3.7. #Acute blood loss anemia * Initial Hb on admission was 3.6. * transfused with 4 units of PRBCs. * Hb today is 7.8. * received IV iron. On IV PPI * EGD showed non bleeding cratered duodenal ulcers and multiple linear gastric ulcers (nonbleeding) * iron studies showed iron deficiency. * transfuse to keep HB >7 * to have repeat EGD in 8-12 weeks to evaluate for healing of gastric ulcers and obtain biopsies. * Noted to have vaginal bleeding today. Transvaginal ultrasound done showed endometrial thickening with clinical correlation recommended. Thickness noted to be abnormal for patient's postmenopausal state. * Consult gynecology. * #Nonsustained V. tach: * Patient noted to have a brief run of nonsustained V. tach overnight. Has not occurred again today. * Potassium is 3.7 and magnesium is 2. On carvedilol 3.125 mg twice daily. Will continue with monitoring. * Will adjust dose as needed and consult cardiology if this nonsustained V. tach occurs more frequently. * #Dysphagia * speech therapy on board. * now on modified diet by speech therapy * Barium swallow showed moderate-severe oropharyngeal dysphagia * #RAMEZ on CKD: Resolved. Cr is 1.11 today. #Hypernatremia: resolved. Na is 141. #History of stroke: not on anticoagulation or antiplatelets. s/p right sided hemiparesis. #Hypertension: on amlodipine, carvedilol and hydralazine which are on hold due to hypotension. DVT prophylaxis: SCDs. Not anticoagulated o/a of acute on chronic anemia Charges/Coding Visit Charges Inpatient E&M: 84580 Subs Hosp L2
--- NOTE | 2025-06-01 19:23 | EX.PCM.CONOB ---
Assessment & Plan (1) Endometrial thickening on ultrasound: (2) Postmenopausal bleeding: COMMENT: EMB done, needs polyp removed as OP also. await pathology to determine intervention. cea and ca125 ordered. (3) Symptomatic anemia: PLAN: Plan counseled patient and her brother regarding thickened endometrium- could be precancerous/cancerous recommend EMB, and await pathology. this could be a source of her anemia if she has been bleeding. unclear due to poor historian. HPI Consult Data Date of Consult: 06/02/25 HPI Narrative HPI Narrative: NANCY DELACRUZ, is a 59 F who presents initially with severe anemia and stroke, sepsis. Patient has been admitted to the hospital since 05/21 and has been evaluated as to the source of the anemia, initially had a scope which showed nonbleeding ulcers in the stomach and duodenum. Blood counts have been stable posttransfusion. Patient was noted to have vaginal bleeding overnight and therefore an ultrasound was done and lining of the uterus is found to be 21 mm. Patient states that she has had some vaginal bleeding intermittently but it is difficult to get a complete history. Her brother is in the room and he states he was unaware of her having any of these complaints until last night. She does not have a history of any pregnancies, she was never . [facility] Medical History Hypertension CVA (cerebral vascular accident) Home Medications ?Medication ?Instructions ?Recorded ?Last Taken ?Type amlodipine 10 mg tablet 10 mg PO DAILY 05/21/25 05/20/25 History carvedilol 3.125 mg tablet 3.125 mg PO BID 05/21/25 05/20/25 History hydralazine 100 mg tablet 100 mg PO TID 05/21/25 05/20/25 History simvastatin 20 mg tablet 20 mg PO DAILY 05/21/25 05/20/25 History Allergy/AdvReac Type Severity Reaction Status Date / Time No Known Allergies Allergy Verified 05/21/25 09:27 Family History unable to obtain Surgical History unable to obtain Social History Smoking Status: Never smoker Vital Signs Vital Signs Vital Signs: 05/31/25 22:11 05/31/25 22:42 06/01/25 04:00 Temperature 99.1 F 98.4 F Temperature Source Oral Temporal Pulse Rate 99 92 Pulse Strength Respiratory Rate 17 16 Respiratory Effort Normal Non-Labored Respiratory Depth Normal Respiratory Pattern Normal Blood Pressure 116/82 H 114/83 H Blood Pressure Mean 93 93 Blood Pressure Source Monitor Monitor Blood Pressure Position Semi-Fowlers Blood Pressure Location Left Arm Pulse Ox 93 98 Oxygen Delivery Method Nasal Cannula Nasal Cannula Nasal Cannula Oxygen Flow Rate (L/min) 2 2 2 06/01/25 06:50 06/01/25 07:40 06/01/25 09:30 Temperature Temperature Source Pulse Rate Pulse Strength Normal (2+) Respiratory Rate Respiratory Effort Non-Labored Respiratory Depth Normal Respiratory Pattern Normal Blood Pressure Blood Pressure Mean Blood Pressure Source Blood Pressure Position Blood Pressure Location Pulse Ox 94 Oxygen Delivery Method Nasal Cannula Nasal Cannula Oxygen Flow Rate (L/min) 2 2 06/01/25 09:33 06/01/25 13:31 06/01/25 13:31 Temperature 97.1 F L Temperature Source Temporal Pulse Rate 77 Pulse Strength Respiratory Rate 18 Respiratory Effort Respiratory Depth Respiratory Pattern Blood Pressure 110/77 Blood Pressure Mean 88 Blood Pressure Source Monitor Blood Pressure Position Semi-Fowlers Blood Pressure Location Left Arm Pulse Ox 94 Oxygen Delivery Method Nasal Cannula Oxygen Flow Rate (L/min) 2 2 3 06/01/25 14:00 Temperature Temperature Source Pulse Rate Pulse Strength Respiratory Rate Respiratory Effort Non-Labored Respiratory Depth Normal Respiratory Pattern Normal Blood Pressure Blood Pressure Mean Blood Pressure Source Blood Pressure Position Blood Pressure Location Pulse Ox Oxygen Delivery Method Nasal Cannula Oxygen Flow Rate (L/min) 2 Weight Weight: 193 lb 5.526 oz Body Mass Index (BMI) 32.2 ROS Review of Systems ROS Unobtainable: other Details: Limited due to patient's disrupted speech pattern poststroke. Constitutional Constitutional: Reports weakness Cardiovascular Cardiovascular: Reports systems reviewed and no addt'l complaints, except as documented Respiratory/Chest Respiratory/Chest: Reports systems reviewed and no addt'l complaints, except as documented Gastrointestinal Gastrointestinal: Reports diarrhea Genitourinary Genitourinary: Reports systems reviewed and no addt'l complaints, except as documented Musculoskeletal Musculoskeletal: Reports muscle weakness and other Details: Poststroke deficits Neurologic Neurologic: Reports other Details: Poststroke deficits Psychiatric Psychiatric: Reports systems reviewed and no addt'l complaints, except as documented Physical Exam Const alert and no apparent distress General Appearance: cooperative HEENT normocephalic, head/scalp atraumatic and moist oral mucous membranes Neck no lymphadenopathy and supple Lymph Lymphatic: no lymphedema noted Cardio regular rate, regular rhythm, S1 normal heart sound, S2 normal heart sound and no murmurs GI normal to inspection, nondistended, normoactive bowel sounds, soft to palpation and non-tender Extremity normal to inspection and full ROM Extremity Narrative: Bilateral lower extremity edema 2+ edema. General Extremity: no tenderness to palpation of joints or extremities Neuro Neuro Narrative: Right sided weakness, which is chronic Sensorium / Orientation: awake and alert Motor Exam: general weakness Psych thought process normal and cooperative Appearance: appropriate Lab / Micro Data 06/02/25 05:40 06/02/25 05:40 Labs: Laboratory Results - last 24 hr 06/01/25 05:10: WBC 7.5, RBC 3.39 L, Hgb 7.8 L, Hct 26.8 L, MCV 79.1 L, MCH 23.0 L, MCHC 29.1 L, RDW Std Deviation TNP, RDW Coeff of Federico TNP, Plt Count 287, MPV 10.2, Immature Gran % (Auto) 0.400, Neut % (Auto) 73.6 H, Lymph % (Auto) 15.4 L, [place] % (Auto) 8.0, Eos % (Auto) 2.3, Baso % (Auto) 0.3, Absolute Neuts (auto) 5.6, Absolute Lymphs (auto) 1.16, Nucleated RBC % 0, Anisocytosis 1+, Sodium 141, Potassium 3.7, Chloride 112 H, Carbon Dioxide 20.2 L, Anion Gap 9, BUN 22 H, Creatinine 1.34 H, Estim Creat Clear Calc 48.22 L, Est GFR (MDRD) Non-Af 45 L, BUN/Creatinine Ratio 16.5, Glucose 108 H, Calcium 7.3 L, Magnesium 2.0 Imaging Radiology Impression Transvaginal US 06/01/25 08:26 IMPRESSION: Endometrial thickening. Clinical correlation recommended. Reading Location: [place] [address]
[2025-06-01 20:45] VITALS: BP 135/87; PULSE 98; RESP 16; TEMP 36.8; O2SAT 95
[2025-06-01] MEDS: 0.9% Saline Lock 10 ML Syringe IV (21:23)
--- NOTE | 2025-06-01 23:18 | NURSING ---
Changed pt brief, small amount of bright red blood noted d/t biopsy earlier. No c/o pain. pt tolerated well
[2025-06-02] VITALS (7 sets, daily range): BP systolic 116–132; BP diastolic 71–89; PULSE 92–114; RESP 18–20; TEMP 36.3–37; O2SAT 92–94; BMI 30.9
--- NOTE | 2025-06-02 04:00 | RAD_ITS ---
PROCEDURE: CXR FOR LINE PLACEMENT 06/02/2025 REASON FOR EXAM: CENTRAL LINE PLACEMENT TECHNIQUE: Procedure Code: RADCXRLP Modality: DX Procedure: CXR FOR LINE PLACEMENT COMPARISON: 05/28/2025. FINDINGS: Right internal jugular central catheter is in good position with its tip at the atriocaval junction. Minimal decrease in multifocal pulmonary congestion/infiltrates. Unchanged minimal left pleural effusion. Enlarged cardiac silhouette. Normal mediastinum and elo. Normal visualized pulmonary arteries. Atheromatous plaques of the visualized aortic arch and descending thoracic aorta. Diffuse spondylosis of the visualized thoracic spine. Normal visualized ribs, clavicles. Degenerative joint disease. There is no demonstrated abnormality of the visualized soft tissue structures of the upper abdomen. RAD/CXR for Line Placement IMPRESSION: Right internal jugular central catheter is in good position with its tip at the atriocaval junction. Minimal decrease in multifocal pulmonary congestion/infiltrates. Unchanged minimal left pleural effusion. Enlarged cardiac silhouette. Reading [facility]
[2025-06-02 06:16] LABS: Anion Gap 10 (5-15); BUN 25 mg/dL (4-19); BUN/Creat Ratio 19.7 RATIO (10-20); Calcium,Total 7.6 mg/dL (7.6-11.0); Carbon Dioxide 21.7 mmol/L (21.0-32.0); Chloride 109 mmol/L (98-108); Estimated Creatinine Clearance 49.55 ml/min (50-250); Glucose 100 mg/dL (70-99); Potassium 3.4 mmol/L (3.3-5.1)
[2025-06-02 06:35] LABS: Hematocrit 26.0 % (37-47); Hemoglobin 7.4 g/dL (12.0-15.0); Immature Granulocytes Count 0.050 X10^3/uL (0.0-0.0); Mean Corp Hgb Conc 28.5 g/dL (32-36); Mean Corpuscular Volume 78.3 fL (81-99); Mean Platelet Vol. 9.7 fl (6.2-12.0); NRBC Flagged by Analyzer 0 % (0-5); POSITIVE MORPHOLOGY YES; Platelet Count 331 K/mm3 (150-450); Red Blood Count 3.32 M/mm3 (4.2-5.4); White Blood Count 8.4 K/mm3 (4.4-11.0)
[2025-06-02 06:55] LABS: Differential Indicated SCAN CRITERIA MET
[2025-06-02 08:30] LABS: Differential Comment SCANNED
[2025-06-02 08:58] LABS: Magnesium 1.8 mg/dL (1.5-2.2)
--- NOTE | 2025-06-02 09:27 | PCM.PN.OB ---
Subjective Subjective Patient stable with minimal vaginal bleeding overnight. Objective Data Objective Data Vital Signs: Vital Signs Temp Pulse Resp BP Pulse Ox O2 Del Method O2 Flow Rate 97.3 F L 100 20 H 132/81 H 93 Nasal Cannula 2 06/02/25 02:47 06/02/25 02:47 06/02/25 02:47 06/02/25 02:47 06/02/25 02:47 06/02/25 03:31 06/02/25 03:31 FiO2 4 05/26/25 08:00 Oxygen Flow Rate (L/min) 2 Oxygen Delivery Method Nasal Cannula Weight: 186 lb 4.65 oz Body Mass Index (BMI) 30.9 Intake & Output: Intake and Output for Last 24 Hours 05/31/25 06/01/25 06/02/25 23:59 23:59 23:59 Intake Total 1050 / 1050 800 / 800 Output Total 850 / 1200 1590 / 1890 725 / 725 Balance 200 / -150 -790 / -1090 -725 / -725 Lab / Micro Data 06/05/25 04:57 06/04/25 04:45 Labs: Laboratory Results - last 24 hr 06/01/25 05:10: Magnesium 2.0 06/02/25 05:40: WBC 8.4, RBC 3.32 L, Hgb 7.4 L, Hct 26.0 L, MCV 78.3 L, MCH 22.3 L, MCHC 28.5 L, RDW Std Deviation TNP, RDW Coeff of Federico TNP, Plt Count 331, MPV 9.7, Immature Gran % (Auto) 0.600, Neut % (Auto) 77.5 H, Lymph % (Auto) 13.3 L, [place] % (Auto) 6.6, Eos % (Auto) 1.5, Baso % (Auto) 0.5, Absolute Neuts (auto) 6.5, Absolute Lymphs (auto) 1.12, Nucleated RBC % 0, Differential Comment SCANNED, Sodium 141, Potassium 3.4, Chloride 109 H, Carbon Dioxide 21.7, Anion Gap 10, BUN 25 H, Creatinine 1.28 H, Estim Creat Clear Calc 49.55 L, Est GFR (MDRD) Non-Af 48 L, BUN/Creatinine Ratio 19.7, Glucose 100 H, Calcium 7.6, Magnesium 1.8 Micro: Microbiology 05/29/25 10:00 Stool Enteric Bacteriology - Final 05/29/25 10:00 Stool Clostridioides difficile (PCR) - Final 05/21/25 15:15 Blood Culture (Wb) - Central Line Blood Culture - Final No growth in 5 days. 05/21/25 14:15 Sputum, Induced/Lukens Gram Stain - Final 05/21/25 14:15 Sputum, Induced/Lukens Respiratory Culture - Final 05/21/25 17:40 Urine Catheter - Fiore Urine Culture - Final Escherichia coli Radiography Diagnostic Testing: Radiology Impression Transvaginal US 06/01/25 08:26 IMPRESSION: Endometrial thickening. Clinical correlation recommended. [facility] 06/02/25 04:00 IMPRESSION: Right internal jugular central catheter is in good position with its tip at the atriocaval junction. Minimal decrease in multifocal pulmonary congestion/infiltrates. Unchanged minimal left pleural effusion. Enlarged cardiac silhouette. Reading Location: [address] Constitutional Constitutional: Reports systems reviewed and no addt'l complaints, except as documented Cardiovascular Cardiovascular: Reports systems reviewed and no addt'l complaints, except as documented Respiratory/Chest Respiratory/Chest: Reports systems reviewed and no addt'l complaints, except as documented Gastrointestinal Gastrointestinal: Reports systems reviewed and no addt'l complaints, except as documented Physical Exam Const alert, oriented x3 and no apparent distress HEENT Head and Scalp: atraumatic Resp normal respiratory effort GI soft to palpation and non-tender Bimanual Exam - Vag & Uterus: uterus non-tender Uterus Palpation: uterus fundus firm (below Umbilicus) Assessment & Plan (1) Postmenopausal bleeding: COMMENT: EMB done, needs polyp removed as OP also. await pathology to determine intervention. cea and ca125 done- ca125 significantly elevated which is suspicious for cancer. (2) Endometrial thickening on ultrasound: PLAN: Plan stable, awaiting pathology report to determine recommendations for intervention. Charges/Coding Visit Charges Inpatient E&M: 62388 Subs Hosp L3
[2025-06-02] MEDS: Pantoprazole Sodium 40 MG in 0.9% Normal Saline (100mL MB+) 100 ML 300 MG IV ×2 (09:57→21:21)
[2025-06-02] MEDS: Potassium Chloride Oral Tablet 20 MEQ 40 MEQ PO (09:57)
[2025-06-02] MEDS: 0.9% Saline Lock 10 ML Syringe IV ×2 (09:59→21:16)
--- NOTE | 2025-06-02 12:05 | PCM.CONS.C ---
Assessment & Plan Assessment/Plan (1) Atrial fibrillation with RVR: PLAN: Recommend discontinuing carvedilol and starting the patient on metoprolol 50 mg p.o. twice daily. Patient has had severe bleeding resulting in shock even without anticoagulation. No anticoagulation at this time. As an outpatient this could be considered. (2) Nonsustained ventricular tachycardia: PLAN: Recommend maintaining the potassium around 4 and magnesium at 2. Recommend changing the beta-charlotte to metoprolol as well. HPI Consult Data Date of Consult: 06/02/25 HPI Narrative HPI Narrative: NANCY DELACRUZ, is a 59 F who presents with altered mental status. She was found to have severe anemia with a hemoglobin of 3.6. EGD revealed nonbleeding ulcers. Uterine bleeding is being considered as the possible culprit. Patient presented with A-fib with RVR which appears to be a new diagnosis. She has history of stroke. She is a poor historian and apparently requires [id number] assistance from her family members who take care of her. Cardiology consult was requested as she has been having some episodes of nonsustained V. tach. The longest run is 6 beats. She appears to have had about 6 or 7 episodes over the last 24 hours. She was on carvedilol 3.125 mg p.o. twice daily as an outpatient which was initially held as patient had presented with shock and has now been increased to 6.25 mg twice daily. She had a potassium of 3.7 and magnesium of 2 yesterday and today the potassium was 3.4 with a magnesium of 1.8. She had a 2D echo which revealed preserved EF and apical hypertrophic cardiomyopathy. [facility] Medical History Hypertension CVA (cerebral vascular accident) Home Medications ?Medication ?Instructions ?Recorded ?Last Taken ?Type amlodipine 10 mg tablet 10 mg PO DAILY 05/21/25 05/20/25 History carvedilol 3.125 mg tablet 3.125 mg PO BID 05/21/25 05/20/25 History hydralazine 100 mg tablet 100 mg PO TID 05/21/25 05/20/25 History simvastatin 20 mg tablet 20 mg PO DAILY 05/21/25 05/20/25 History Allergy/AdvReac Type Severity Reaction Status Date / Time No Known Allergies Allergy Verified 05/21/25 09:27 Family History unable to obtain Surgical History unable to obtain Social History Smoking Status: Never smoker Physical Exam Const alert HEENT normocephalic Eyes no scleral icterus Resp normal respiratory effort Cardio Cardio Narrative: Irregular rhythm Charges/Coding Visit Charges Inpatient E&M: 79008 Init Hosp L2 Objective Data Vital Signs: Vital Signs Temp Pulse Resp BP Pulse Ox O2 Del Method O2 Flow Rate 97.4 F L 114 H 20 H 130/76 H 92 Nasal Cannula 3 06/02/25 08:45 06/02/25 08:45 06/02/25 08:45 06/02/25 08:45 06/02/25 08:45 06/02/25 08:45 06/02/25 08:45 FiO2 4 05/26/25 08:00 Oxygen Flow Rate (L/min) 3 Oxygen Delivery Method Nasal Cannula Weight: 186 lb 4.65 oz Body Mass Index (BMI) 30.9 Intake & Output: Intake and Output for Last 24 Hours 05/31/25 06/01/25 06/02/25 23:59 23:59 23:59 Intake Total 1050 / 1050 800 / 800 100 / 100 Output Total 850 / 1200 1590 / 1890 725 / 725 Balance 200 / -150 -790 / -1090 -625 / -625 Lab / Micro Data 06/02/25 05:40 06/02/25 05:40 Labs: Laboratory Results - last 24 hr 06/02/25 05:40: WBC 8.4, RBC 3.32 L, Hgb 7.4 L, Hct 26.0 L, MCV 78.3 L, MCH 22.3 L, MCHC 28.5 L, RDW Std Deviation TNP, RDW Coeff of Federico TNP, Plt Count 331, MPV 9.7, Immature Gran % (Auto) 0.600, Neut % (Auto) 77.5 H, Lymph % (Auto) 13.3 L, [place] % (Auto) 6.6, Eos % (Auto) 1.5, Baso % (Auto) 0.5, Absolute Neuts (auto) 6.5, Absolute Lymphs (auto) 1.12, Nucleated RBC % 0, Differential Comment SCANNED, Sodium 141, Potassium 3.4, Chloride 109 H, Carbon Dioxide 21.7, Anion Gap 10, BUN 25 H, Creatinine 1.28 H, Estim Creat Clear Calc 49.55 L, Est GFR (MDRD) Non-Af 48 L, BUN/Creatinine Ratio 19.7, Glucose 100 H, Calcium 7.6, Magnesium 1.8 Cardiology Labs/Tests 06/02/25 05:40: WBC 8.4, RBC 3.32 L, Hgb 7.4 L, Hct 26.0 L, MCV 78.3 L, MCH 22.3 L, MCHC 28.5 L, Plt Count 331, MPV 9.7, Immature Gran % (Auto) 0.600, Neut % (Auto) 77.5 H, Lymph % (Auto) 13.3 L, [place] % (Auto) 6.6, Eos % (Auto) 1.5, Baso % (Auto) 0.5, Absolute Neuts (auto) 6.5, Nucleated RBC % 0, Sodium 141, Potassium 3.4, Chloride 109 H, Carbon Dioxide 21.7, Anion Gap 10, BUN 25 H, Creatinine 1.28 H, Est GFR (MDRD) Non-Af 48 L, BUN/Creatinine Ratio 19.7, Glucose 100 H, Calcium 7.6, Magnesium 1.8 Rhythm: EKG: ECHO: Stress Test: Cardiac Cath: PCI: CT Surgery: Holter monitor: EPS: PPM: CXR: Chest CT Scan: Radiography Diagnostic Testing: Radiology Impression Chest X-Ray 06/02/25 04:00 IMPRESSION: Right internal jugular central catheter is in good position with its tip at the atriocaval junction. Minimal decrease in multifocal pulmonary congestion/infiltrates. Unchanged minimal left pleural effusion. Enlarged cardiac silhouette. Reading Location: [place] [address] RICH Risk Score for UA/STEMI Assesmment (YES = 1) Risk Stratification Applicable: No
--- NOTE | 2025-06-02 12:31 | PN_ITS ---
Subjective Subjective Patient seen and examined with nurse by his bedside. She had no active complaints. Review of systems is otherwise negative. Pulse rate is elevated at 114. She remains on 3L of oxygen. Objective Data Objective Data Vital Signs: Vital Signs Temp Pulse Resp BP Pulse Ox O2 Del Method O2 Flow Rate 97.4 F L 114 H 20 H 130/76 H 92 Nasal Cannula 3 06/02/25 08:45 06/02/25 08:45 06/02/25 08:45 06/02/25 08:45 06/02/25 08:45 06/02/25 08:45 06/02/25 08:45 FiO2 4 05/26/25 08:00 Oxygen Flow Rate (L/min) 3 Oxygen Delivery Method Nasal Cannula Weight: 186 lb 4.65 oz Body Mass Index (BMI) 30.9 Intake & Output: Intake and Output for Last 24 Hours 05/31/25 06/01/25 06/02/25 23:59 23:59 23:59 Intake Total 1050 / 1050 800 / 800 100 / 100 Output Total 850 / 1200 1590 / 1890 725 / 725 Balance 200 / -150 -790 / -1090 -625 / -625 Lab / Micro Data 06/02/25 05:40 06/02/25 05:40 Labs: Laboratory Results - last 24 hr 06/02/25 05:40: WBC 8.4, RBC 3.32 L, Hgb 7.4 L, Hct 26.0 L, MCV 78.3 L, MCH 22.3 L, MCHC 28.5 L, RDW Std Deviation TNP, RDW Coeff of Federico TNP, Plt Count 331, MPV 9.7, Immature Gran % (Auto) 0.600, Neut % (Auto) 77.5 H, Lymph % (Auto) 13.3 L, [place] % (Auto) 6.6, Eos % (Auto) 1.5, Baso % (Auto) 0.5, Absolute Neuts (auto) 6.5, Absolute Lymphs (auto) 1.12, Nucleated RBC % 0, Differential Comment SCANNED, Sodium 141, Potassium 3.4, Chloride 109 H, Carbon Dioxide 21.7, Anion Gap 10, BUN 25 H, Creatinine 1.28 H, Estim Creat Clear Calc 49.55 L, Est GFR (MDRD) Non-Af 48 L, BUN/Creatinine Ratio 19.7, Glucose 100 H, Calcium 7.6, Magnesium 1.8 Micro: Microbiology 05/29/25 10:00 Stool Enteric Bacteriology - Final 05/29/25 10:00 Stool Clostridioides difficile (PCR) - Final 05/21/25 15:15 Blood Culture (Wb) - Central Line Blood Culture - Final No growth in 5 days. 05/21/25 14:15 Sputum, Induced/Lukens Gram Stain - Final 05/21/25 14:15 Sputum, Induced/Lukens Respiratory Culture - Final 05/21/25 17:40 Urine Catheter - Fiore Urine Culture - Final Escherichia coli Radiography Diagnostic Testing: Radiology Impression Chest X-Ray 06/02/25 04:00 IMPRESSION: Right internal jugular central catheter is in good position with its tip at the atriocaval junction. Minimal decrease in multifocal pulmonary congestion/infiltrates. Unchanged minimal left pleural effusion. Enlarged cardiac silhouette. Reading Location: [place] [address] Physical Exam Const alert and no apparent distress Constitutional Narrative: frail, weak General Appearance: cooperative HEENT normocephalic, head/scalp atraumatic, moist oral mucous membranes and oropharynx normal Eyes PERRL and EOMs intact bilaterally Neck supple and no JVD Lymph Lymphatic: no lymphedema noted Resp Resp Narrative: mildly diminished breath sounds bibasally, no wheezes or crackles. Down to 3 L of oxygen by nasal canula. Cardio regular rate, regular rhythm, S1 normal heart sound, S2 normal heart sound and no murmurs Cardio Narrative: Irregularly irregular GI normal to inspection, nondistended, normoactive bowel sounds, soft to palpation, non-tender, non-distended and hepatosplenomegaly Extremity normal to inspection, full ROM, normal capillary refill and no clubbing, cyanosis or edema Extremity Narrative: Bilateral lower extremity edema 2+ edema. General Extremity: edema bilateral lower extremity Details: mild and no tenderness to palpation of joints or extremities Neuro no focal motor deficits and no sensory deficits noted Neuro Narrative: Right sided weakness, which is chronic Sensorium / Orientation: awake and alert Motor Exam: general weakness Psych thought process normal and cooperative Appearance: appropriate Assessment & Plan Assessment/Plan (1) Hypernatremia: (2) Dysphagia: (3) (HFpEF) heart failure with preserved ejection fraction: (4) Acute blood loss anemia: (5) Atrial fibrillation with RVR: PLAN: Plan #Acute hypoxic respiratory failure * thought to be due to CHF and pneumonia * on zosyn. Was intubated and subsequently on 05/25/2025. * now down to 2L of oxygen. * Titrate oxygen to maintain sats above 90%. Breathing treatments modalities. #Acute on chronic HFpEF * EF is normal at 60%, and mild concentric LVH and apical hypertrophic cardiomyopathy present. * received IV lasix 40mg x 1. * pro BNP: 90000 * down to 2L of oxygen today. Titrate oxygen to maintain sats >90% * breathing treatment with bronchodilators. * She is in cumulative positive balance by 5.945L * On p.o. Lasix * #Atrial fibrillation with RVR * new diagnosis. not anticoagulated. * Not on rate limiting medications due to hypotension. * HR now improved. On carvedilol, now resumed. * #Diarrhea * patient developed diarrhea overnight and had several episodes of diarrhea. * resolving. Enteric pathogen and C Diff screen negative. * diarrhea has largely resolved * #Hypokalemia: Resolving. K is 3.7. #Acute blood loss anemia * Initial Hb on admission was 3.6. * transfused with 4 units of PRBCs. * Hb today is 7.4 * received IV iron. On IV PPI * EGD showed non bleeding cratered duodenal ulcers and multiple linear gastric ulcers (nonbleeding) * iron studies showed iron deficiency. * transfuse to keep HB >7 * to have repeat EGD in 8-12 weeks to evaluate for healing of gastric ulcers and obtain biopsies. * Noted to have vaginal bleeding. Transvaginal ultrasound done showed endometrial thickening with clinical correlation recommended. Thickness noted to be abnormal for patient's postmenopausal state. * Gynecology reviewed patient and did a bedside endometrial biopsy. CA 129 and CEA antigens ordered per gynecology * Per Dr. More, she is concerned about cancer and if this is proven patient will be referred to [facility] oncologist in [place] on outpatient basis. * #Nonsustained V. tach: * Patient noted to have a brief run of nonsustained V. tach overnight again * Potassium is 3.4 today and magnesium is 1.8. On carvedilol 3.125 mg twice daily. Will continue with monitoring. * Carvedilol increased to 6.25 mg twice daily and cardiology consulted. * #Dysphagia * speech therapy on board. * now on modified diet by speech therapy * Barium swallow showed moderate-severe oropharyngeal dysphagia * #RAMEZ on CKD: Resolved. Cr is 1.28 today. #Hypernatremia: resolved. #History of stroke: not on anticoagulation or antiplatelets. s/p right sided hemiparesis. #Hypertension: on amlodipine, carvedilol and hydralazine which are on hold due to hypotension. Carvedilol resumed due to afib and nonsustained vtach. DVT prophylaxis: SCDs. Not anticoagulated o/a of acute on chronic anemia Charges/Coding Visit Charges Inpatient E&M: 67708 Subs Hosp L2
--- NOTE | 2025-06-02 13:50 | EMB_PTH ---
PATIENT: NANCY DELACRUZ LOC: [facility] U#:[id number] AGE/SX: 59/F ROOM: [facility] RE05/21/[address]: Dr. Ziggy Shelton MD : 1965 BED: 1 DIS: 06/11/2025 SPEC #: [id number] RECD: 06/02/25 14:30 STATUS: GRACE REQ #: [id number] PTARICIA: 06/02/25 13:[address]: Elosia More DEPT: SURGICAL PATHOLOGY RECD BY: Rubén Boudreaux ENTERED: 06/04/25 07:36 SP TYPE: ENDOM BX/C OTHR DR: MD Dr. Ruel Martin MD Dr. Bruce Arthur, MD Dr. Derek Brown, DO MD Dr. Matt Armendariz, MD Dr. Jj Roca Dr., MD Dr. Yordanos Habtegebriel, MD Dr. Hemant Dand, MD Dr. Jose Ochoa, MD Dr. Justin Wong, MD Dr. Kimber Foust, MD Dr. Lamia Aljundi, MD Dr. Lisa Malys, MD Dr. Yanet Reinoso Dr., MD Dr. Nicholas F Kotsonis, MD Dr. Nagapradee Nagajothi, MD Dr. Prakash Chand, MD Dr. Pritam Ghosh, MD Dr. Pavan Irukulla, MD Dr. Rahsaan Friend, DO MD Dr. Errol Robles, DO Dr. Sujoy Silva, MD Dr. Soleyah Kings[place]MD Dr. Eloisa hoyos MD Dr. Timothy Fernstrom, DO Dr. Vikram Anand, MD Dr. William Haden, MD Heather Evans, [facility] [facility] MARTINE Briceño PA Tissues: A - Endometrium, NOS Procedures: Surgery Specimen Level IV Comments: @ Ordering doctor for FRANSISCO edited from to @ by [email or web address] at 06/04/25 07 @ Submitting doctor edited from to @ by CCRYTZER at 06/04/2537 HEADER OPERATION: Not noted PRE-OP DIAGNOSIS: Post menopausal bleeding TISSUE SUBMITTED: A- Endometrial biopsy MICROSCOPIC DIAGNOSIS A. Endometrium, biopsy: - Fragmented endometrium with atypical hyperplasia, focally suspicious for endometrioid adenocarcinoma - see note. Note: A limited volume of fragmented endometrial tissue is present. Two of the larger tissue fragments are highly suspicious for malignancy. MICROSCOPIC DESCRIPTION Slides are reviewed. GROSS DESCRIPTION Received in formalin labeled with the patient's name and date of . Designated as endometrial biopsy is a 3.4 x 2.0 x 0.4 cm aggregate of dark red cylindrical blood clot and flecks of padron tissue. Entirely submitted in 2 cassettes. NC 06/04/2025 CPT:49173
--- NOTE | 2025-06-02 22:48 | PCM.HOSP.N ---
Hospitalist Note Patient with recurrent asymptomatic versus a VT. Reviewed cardiology current recommendations with potassium greater than 4, magnesium greater than 2. Potassium earlier in the day 3.4 with supplementation given, magnesium 1.8. Will administer magnesium supplementation and plan repeat magnesium level and potassium level in AM. Additionally cardiology recommended changing from Coreg to metoprolol, will transition from Coreg to metoprolol tartrate and start at 12.5 mg p.o. twice daily with dose now.
[2025-06-02] MEDS: Magnesium Sulfate 2 GM in Dextrose 5%-Water (100mL Bag) 100 ML IV (23:03)
[2025-06-03] VITALS (8 sets, daily range): BP systolic 108–129; BP diastolic 72–87; PULSE 86–102; RESP 17–18; TEMP 36.4–36.6; O2SAT 91–96; BMI 31.4
[2025-06-03 06:06] LABS: Hematocrit 26.7 % (37-47); Hemoglobin 7.8 g/dL (12.0-15.0); Immature Granulocytes Count 0.040 X10^3/uL (0.0-0.0); Mean Corp Hgb Conc 29.2 g/dL (32-36); Mean Corpuscular Volume 78.1 fL (81-99); Mean Platelet Vol. 10.1 fl (6.2-12.0); NRBC Flagged by Analyzer 0 % (0-5); POSITIVE MORPHOLOGY YES; Platelet Count 366 K/mm3 (150-450); Red Blood Count 3.42 M/mm3 (4.2-5.4); White Blood Count 8.5 K/mm3 (4.4-11.0)
[2025-06-03 06:30] LABS: Anion Gap 11 (5-15); BUN 26 mg/dL (4-19); BUN/Creat Ratio 19.8 RATIO (10-20); Calcium,Total 7.8 mg/dL (7.6-11.0); Carbon Dioxide 21.8 mmol/L (21.0-32.0); Chloride 109 mmol/L (98-108); Estimated Creatinine Clearance 48.78 ml/min (50-250); Glucose 88 mg/dL (70-99); Magnesium 2.5 mg/dL (1.5-2.2); Potassium 3.8 mmol/L (3.3-5.1)
[2025-06-03 06:38] LABS: Carcinoembryonic Antigen 1.3 ng/mL (0.0-4.7)
[2025-06-03 06:51] LABS: Differential Indicated SCAN CRITERIA MET
[2025-06-03 08:28] LABS: Differential Comment SCANNED
[2025-06-03] MEDS: Pantoprazole Sodium 40 MG in 0.9% Normal Saline (100mL MB+) 100 ML 300 MG IV (10:34)
--- NOTE | 2025-06-03 11:03 | PN_ITS ---
Subjective Subjective Patient seen and examined with her nurse by her bedside. Her brother was by her bedside. She had no active complaints and had an uneventful night. Vaginal bleeding has not recurred. She is minimally tachycardic, but has remained hemodynamically stable otherwise. Per PT/OT< her right knee is very inverted, and so she will benefit from an ankle brace. CA 125 is also markedly elevated. Objective Data Objective Data Vital Signs: Vital Signs Temp Pulse Resp BP Pulse Ox O2 Del Method O2 Flow Rate 97.7 F L 102 H 18 108/78 96 Nasal Cannula 2 06/03/25 09:00 06/03/25 10:35 06/03/25 09:00 06/03/25 09:00 06/03/25 09:00 06/03/25 09:00 06/03/25 09:12 FiO2 4 05/26/25 08:00 Oxygen Flow Rate (L/min) 2 Oxygen Delivery Method Nasal Cannula Weight: 186 lb 4.65 oz Body Mass Index (BMI) 30.9 Intake & Output: Intake and Output for Last 24 Hours 06/01/25 06/02/25 06/03/25 23:59 23:59 23:59 Intake Total 800 / 800 740 / 740 454 / 454 Output Total 1590 / 1890 2035 / 2035 150 / 150 Balance -790 / -1090 -1295 / -1295 304 / 304 Lab / Micro Data 06/03/25 05:10 06/03/25 05:10 Labs: Laboratory Results - last 24 hr 06/02/25 05:40: Carcinoembryonic Ag 1.3, CA 125 Antigen 87.4 H 06/03/25 05:10: WBC 8.5, RBC 3.42 L, Hgb 7.8 L, Hct 26.7 L, MCV 78.1 L, MCH 22.8 L, MCHC 29.2 L, RDW Std Deviation Not Reportable, RDW Coeff of Federico Not Reportable, Plt Count 366, MPV 10.1, Immature Gran % (Auto) 0.500, Neut % (Auto) 78.6 H, Lymph % (Auto) 11.6 L, [place] % (Auto) 7.2, Eos % (Auto) 1.5, Baso % (Auto) 0.6, Absolute Neuts (auto) 6.7, Absolute Lymphs (auto) 0.99, Nucleated RBC % 0, Differential Comment SCANNED, Sodium 142, Potassium 3.8, Chloride 109 H , Carbon Dioxide 21.8, Anion Gap 11, BUN 26 H, Creatinine 1.30 H, Estim Creat Clear Calc 48.78 L, Est GFR (MDRD) Non-Af 47 L, BUN/Creatinine Ratio 19.8, Glucose 88, Calcium 7.8, Magnesium 2.5 H Micro: Microbiology 05/29/25 10:00 Stool Enteric Bacteriology - Final 05/29/25 10:00 Stool Clostridioides difficile (PCR) - Final 05/21/25 15:15 Blood Culture (Wb) - Central Line Blood Culture - Final No growth in 5 days. 05/21/25 14:15 Sputum, Induced/Lukens Gram Stain - Final 05/21/25 14:15 Sputum, Induced/Lukens Respiratory Culture - Final 05/21/25 17:40 Urine Catheter - Fiore Urine Culture - Final Escherichia coli Physical Exam Const alert, oriented x3 and no apparent distress Constitutional Narrative: frail, weak General Appearance: cooperative HEENT normocephalic, head/scalp atraumatic, moist oral mucous membranes and oropharynx normal Eyes PERRL and EOMs intact bilaterally Neck no lymphadenopathy, supple and no JVD Lymph Lymphatic: no lymphedema noted Resp Resp Narrative: mildly diminished breath sounds bibasally, no wheezes or crackles. Remains on 3 L of oxygen by nasal canula. Cardio regular rate, regular rhythm, S1 normal heart sound, S2 normal heart sound and no murmurs Cardio Narrative: Irregularly irregular GI normal to inspection, nondistended, normoactive bowel sounds, soft to palpation, non-tender and non-distended Extremity normal to inspection, full ROM and normal capillary refill Extremity Narrative: Bilateral lower extremity edema 2+ edema. General Extremity: edema bilateral lower extremity Details: mild and no tenderness to palpation of joints or extremities Neuro no focal motor deficits and no sensory deficits noted Neuro Narrative: Right sided weakness, which is chronic Sensorium / Orientation: awake and alert Motor Exam: general weakness Psych thought process normal and cooperative Appearance: appropriate Assessment & Plan Assessment/Plan (1) Hypernatremia: (2) Dysphagia: (3) (HFpEF) heart failure with preserved ejection fraction: (4) Acute blood loss anemia: (5) Atrial fibrillation with RVR: PLAN: Plan #Acute hypoxic respiratory failure * thought to be due to CHF and pneumonia * on zosyn. Was intubated and subsequently on 05/25/2025. * now down to 2L of oxygen. * Titrate oxygen to maintain sats above 90%. Breathing treatments with bronchodilators. * she completed a course of antibiotics #Acute on chronic HFpEF * EF is normal at 60%, and mild concentric LVH and apical hypertrophic cardiomyopathy present. * received IV lasix 40mg x 1. * pro BNP: 89886 * on 3L oxygen today. Titrate oxygen to maintain sats >90% * breathing treatment with bronchodilators. * She is in cumulative positive balance by 5.945L * On p.o. Lasix * #Atrial fibrillation with RVR * new diagnosis. not anticoagulated. * now on metoprolol. RVR has resolved. * #Diarrhea * Enteric pathogen and C Diff screen negative. * diarrhea has largely resolved * #Hypokalemia: Resolved K is 3.8. Will give PO potassium to keep K >4 #Acute blood loss anemia * Initial Hb on admission was 3.6. * transfused with 4 units of PRBCs. * Hb today is 7.8 * received IV iron. On IV PPI * EGD showed non bleeding cratered duodenal ulcers and multiple linear gastric ulcers (nonbleeding) * iron studies showed iron deficiency. * transfuse to keep HB >7 * to have repeat EGD in 8-12 weeks to evaluate for healing of gastric ulcers and obtain biopsies. * Noted to have vaginal bleeding. Transvaginal ultrasound done showed endometrial thickening with clinical correlation recommended. Thickness noted to be abnormal for patient's postmenopausal state. * Gynecology reviewed patient and did a bedside endometrial biopsy. CA 129 and CEA antigens ordered per gynecology * Per Dr. More, she is concerned about cancer and if this is proven patient will be referred to [facility]ologist in [place] on outpatient basis. * Ca 125 elevated at eight 7.4 although CEA antigen is normal at 1.3. Will need follow-up on outpatient basis with gynecology * #Nonsustained V. tach: * was on carvedilol but cardiology consulted and recommended discontinuing carvedilol and starting on metoprolol 50mg bid. Due to patient's low BP, was started on PO metoprolol 12.5mg bid. * Will increase to 25mg bid today. * to keep potassium >4 and magnesium >2. * #Right ankle inversion * PT/OT worked with patient today and recommended ankle brace o/a of the right ankle inversion * PT/OT On board. fall precautions * case management to help facilitate getting a right ankle brace when they return tomorrow. * #Dysphagia * speech therapy on board. * now on modified diet by speech therapy * Barium swallow showed moderate-severe oropharyngeal dysphagia * #RAMEZ on CKD: Resolved. Cr is 1.30 today, which is around his baseline. #Hypernatremia: resolved. #History of stroke: not on anticoagulation or antiplatelets. s/p right sided hemiparesis. #Hypertension: on amlodipine, carvedilol and hydralazine which are on hold due to hypotension. Carvedilol resumed due to afib and nonsustained vtach. Carvedilol now switched to PO metoprolol per cardiology DVT prophylaxis: SCDs. Not anticoagulated o/a of acute on chronic anemia Disposition: Anticipate DC over the next 1 to 2 days after ankle brace has been obtained. Charges/Coding Visit Charges Inpatient E&M: 36061 Subs Hosp L2
[2025-06-03] MEDS: Potassium Chloride Oral Tablet 20 MEQ 40 MEQ PO (11:57)
--- NOTE | 2025-06-03 17:22 | PCM.PN.CARD ---
Subjective Subjective Denies any cardiac complaints Objective Data Vital Signs: Vital Signs Temp Pulse Resp BP Pulse Ox O2 Del Method O2 Flow Rate 97.7 F L 102 H 18 108/78 96 Nasal Cannula 2 06/03/25 09:00 06/03/25 11:57 06/03/25 09:00 06/03/25 09:00 06/03/25 09:00 06/03/25 09:00 06/03/25 09:12 FiO2 4 05/26/25 08:00 Oxygen Flow Rate (L/min) 2 Oxygen Delivery Method Nasal Cannula Weight: 189 lb 2.506 oz Body Mass Index (BMI) 31.4 Intake & Output: Intake and Output for Last 24 Hours 06/01/25 06/02/25 06/03/25 23:59 23:59 23:59 Intake Total 800 / 800 740 / 740 694 / 694 Output Total 1590 / 1890 2034 / 2035 350 / 350 Balance -790 / -1090 -1295 / -1295 344 / 344 Lab / Micro Data 06/03/25 05:10 06/03/25 05:10 Labs: Laboratory Results - last 24 hr 06/02/25 05:40: Carcinoembryonic Ag 1.3, CA 125 Antigen 87.4 H 06/03/25 05:10: WBC 8.5, RBC 3.42 L, Hgb 7.8 L, Hct 26.7 L, MCV 78.1 L, MCH 22.8 L, MCHC 29.2 L, RDW Std Deviation Not Reportable, RDW Coeff of Federico Not Reportable, Plt Count 366, MPV 10.1, Immature Gran % (Auto) 0.500, Neut % (Auto) 78.6 H, Lymph % (Auto) 11.6 L, [place] % (Auto) 7.2, Eos % (Auto) 1.5, Baso % (Auto) 0.6, Absolute Neuts (auto) 6.7, Absolute Lymphs (auto) 0.99, Nucleated RBC % 0, Differential Comment SCANNED, Sodium 142, Potassium 3.8, Chloride 109 H, Carbon Dioxide 21.8, Anion Gap 11, BUN 26 H, Creatinine 1.30 H, Estim Creat Clear Calc 48.78 L, Est GFR (MDRD) Non-Af 47 L, BUN/Creatinine Ratio 19.8, Glucose 88, Calcium 7.8, Magnesium 2.5 H Cardiology Labs/Tests 06/03/25 05:10: WBC 8.5, RBC 3.42 L, Hgb 7.8 L, Hct 26.7 L, MCV 78.1 L, MCH 22.8 L, MCHC 29.2 L, Plt Count 366, MPV 10.1, Immature Gran % (Auto) 0.500, Neut % (Auto) 78.6 H, Lymph % (Auto) 11.6 L, [place] % (Auto) 7.2, Eos % (Auto) 1.5, Baso % (Auto) 0.6, Absolute Neuts (auto) 6.7, Nucleated RBC % 0, Sodium 142, Potassium 3.8, Chloride 109 H, Carbon Dioxide 21.8, Anion Gap 11, BUN 26 H, Creatinine 1.30 H, Est GFR (MDRD) Non-Af 47 L, BUN/Creatinine Ratio 19.8, Glucose 88, Calcium 7.8, Magnesium 2.5 H Rhythm: EKG: ECHO: Stress Test: Cardiac Cath: PCI: CT Surgery: Holter monitor: EPS: PPM: CXR: Chest CT Scan: Physical Exam Const alert HEENT normocephalic Eyes no scleral icterus Resp normal respiratory effort Cardio Cardio Narrative: Irregular rhythm Assessment & Plan Assessment/Plan (1) Atrial fibrillation with RVR: PLAN: Recommend increasing metoprolol to 50 mg p.o. twice daily. Patient has had severe bleeding resulting in shock even without anticoagulation. No anticoagulation at this time. As an outpatient this could be considered. (2) Nonsustained ventricular tachycardia: PLAN: Patient continues to have runs of nonsustained V. tach. Recommend increasing beta-charlotte to 50 mg p.o. twice daily. Charges/Coding Visit Charges Inpatient E&M: 45130 Subs Hosp L2
[2025-06-03] MEDS: Pantoprazole Sodium 40 MG in 0.9% Normal Saline (100mL MB+) 100 ML 330 MG IV (21:14)
[2025-06-03] MEDS: 0.9% Saline Lock 10 ML Syringe IV (21:14)
[2025-06-04] VITALS (17 sets, daily range): BP systolic 107–126; BP diastolic 71–87; PULSE 86–103; RESP 12–26; TEMP 36.8–36.9; O2SAT 80–98; BMI 31.5
--- NOTE | 2025-06-04 02:59 | PCM.HOSP.N ---
Hospitalist Note Patient with increased oxygen requirements previously at 4 L, now up to 12 L, crackles on exam increasing from previous, will administer Lasix 40 mg IV x 1 and continue to monitor.
[2025-06-04] MEDS: 0.9% Saline Lock 10 ML Syringe IV ×3 (03:13→22:18)
[2025-06-04 05:48] LABS: Hematocrit 27.8 % (37-47); Hemoglobin 7.8 g/dL (12.0-15.0); Immature Granulocytes Count 0.070 X10^3/uL (0.0-0.0); Mean Corp Hgb Conc 28.1 g/dL (32-36); Mean Corpuscular Volume 79.9 fL (81-99); Mean Platelet Vol. 10.4 fl (6.2-12.0); NRBC Flagged by Analyzer 0 % (0-5); POSITIVE MORPHOLOGY YES; Platelet Count 413 K/mm3 (150-450); Red Blood Count 3.48 M/mm3 (4.2-5.4); White Blood Count 9.3 K/mm3 (4.4-11.0)
[2025-06-04 05:56] LABS: Differential Indicated SCAN CRITERIA MET
[2025-06-04 06:10] LABS: Anion Gap 11 (5-15); BUN 27 mg/dL (4-19); BUN/Creat Ratio 18.1 RATIO (10-20); Calcium,Total 8.1 mg/dL (7.6-11.0); Carbon Dioxide 23.5 mmol/L (21.0-32.0); Chloride 108 mmol/L (98-108); Estimated Creatinine Clearance 42.94 ml/min (50-250); Glucose 84 mg/dL (70-99); Potassium 4.3 mmol/L (3.3-5.1)
[2025-06-04 07:26] LABS: Anisocytosis 2+; Polychromasia 1+; Target Cells 1+
[2025-06-04] MEDS: Pantoprazole Sodium 40 MG in 0.9% Normal Saline (100mL MB+) 100 ML 300 MG IV ×2 (11:18→22:17)
--- NOTE | 2025-06-04 13:16 | CASEMGMT ---
Tertiary facilities in-network with patient's insurance: [facility], Shivam Moreno, [facility], Donte Luna, [facility], ,
--- NOTE | 2025-06-04 13:33 | PN.OBGYN_ITS ---
Subjective Subjective Patient has worsening respiratory symptoms requiring bipap, but with minimal vaginal bleeding overnight. Objective Data Objective Data Vital Signs: Vital Signs Temp Pulse Resp BP Pulse Ox O2 Del Method O2 Flow Rate 98.4 F 88 24 H 126/87 H 96 Bi-pap 12 06/04/25 08:03 06/04/25 13:26 06/04/25 13:26 06/04/25 08:03 06/04/25 13:26 06/04/25 10:00 06/04/25 08:03 FiO2 50 06/04/25 13:26 Oxygen Flow Rate (L/min) 12 Oxygen Delivery Method Bi-pap Weight: 189 lb 9.561 oz Body Mass Index (BMI) 31.5 Intake & Output: Intake and Output for Last 24 Hours 06/02/25 06/03/25 06/04/25 23:59 23:59 23:59 Intake Total 740 / 740 1134 / 1134 140 / 140 Output Total 2035 / 2035 350 / 1150 1900 / 1900 Balance -1295 / -1295 784 / -16 -1760 / -1760 Lab / Micro Data 06/04/25 04:45 06/04/25 04:45 Labs: Laboratory Results - last 24 hr 06/04/25 04:45: WBC 9.3, RBC 3.48 L, Hgb 7.8 L, Hct 27.8 L, MCV 79.9 L, MCH 22.4 L, MCHC 28.1 L, RDW Std Deviation TNP, RDW Coeff of Federico TNP, Plt Count 413, MPV 10.4, Immature Gran % (Auto) 0.800, Neut % (Auto) 77.8 H, Lymph % (Auto) 11.4 L, [place] % (Auto) 7.8, Eos % (Auto) 1.7, Baso % (Auto) 0.5, Absolute Neuts (auto) 7.2, Absolute Lymphs (auto) 1.05, Nucleated RBC % 0, Plt Morphology Comment ADEQ, Polychromasia 1+, Anisocytosis 2+, Target Cells 1+, Ovalocytes 1+, Sodium 142, Potassium 4.3, Chloride 108, Carbon Dioxide 23.5, Anion Gap 11, BUN 27 H, C reatinine 1.49 H, Estim Creat Clear Calc 42.94 L, Est GFR (MDRD) Non-Af 40 L, BUN/Creatinine Ratio 18.1, Glucose 84, Calcium 8.1 Micro: Microbiology 05/29/25 10:00 Stool Enteric Bacteriology - Final 05/29/25 10:00 Stool Clostridioides difficile (PCR) - Final 05/21/25 15:15 Blood Culture (Wb) - Central Line Blood Culture - Final No growth in 5 days. 05/21/25 14:15 Sputum, Induced/Lukens Gram Stain - Final 05/21/25 14:15 Sputum, Induced/Lukens Respiratory Culture - Final 05/21/25 17:40 Urine Catheter - Fiore Urine Culture - Final Escherichia coli Radiography Diagnostic Testing: Radiology Impression Transvaginal US 06/01/25 08:26 IMPRESSION: Endometrial thickening. Clinical correlation recommended. Reading Location: [id number] Chest X-Ray 06/02/25 04:00 IMPRESSION: Right internal jugular central catheter is in good position with its tip at the atriocaval junction. Minimal decrease in multifocal pulmonary congestion/infiltrates. Unchanged minimal left pleural effusion. Enlarged cardiac silhouette. Reading Location: [address] Constitutional Constitutional: Reports systems reviewed and no addt'l complaints, except as documented Cardiovascular Cardiovascular: Reports systems reviewed and no addt'l complaints, except as documented Respiratory/Chest Respiratory/Chest: Reports systems reviewed and no addt'l complaints, except as documented Gastrointestinal Gastrointestinal: Reports systems reviewed and no addt'l complaints, except as documented Physical Exam Const alert Constitutional Narrative: difficult to obtain history and understand due to bipap HEENT Head and Scalp: atraumatic Resp Resp Narrative: on bipap GI soft to palpation and non-tender Assessment & Plan (1) Postmenopausal bleeding: COMMENT: EMB done, needs polyp removed as OP also. await pathology to determine intervention. cea and ca125 done- ca125 significantly elevated which is suspicious for cancer. (2) Endometrial thickening on ultrasound: PLAN: Plan stable, awaiting pathology report to determine recommendations for intervention for vaginal bleeding. suspicious for cancer due to anemia and elevated ca125, and thickened endometrium. would refer to Dr Iqbal group at [facility]. Charges/Coding Visit Charges Inpatient E&M: 41499 Subs Hosp L3
--- NOTE | 2025-06-04 18:04 | PN.HOSP_ITS ---
Subjective Subjective Overnight required BiPAP and a dose of Lasix. She continues to be short of breath today which I am told is a significant departure from her previous situation over the last 2 days. Objective Data Objective Data Vital Signs: Vital Signs Temp Pulse Resp BP Pulse Ox O2 Del Method O2 Flow Rate 98.4 F 88 24 H 126/87 H 96 Nasal Cannula 8 06/04/25 08:03 06/04/25 13:26 06/04/25 13:26 06/04/25 08:03 06/04/25 16:02 06/04/25 16:02 06/04/25 16:02 FiO2 50 06/04/25 13:26 Oxygen Flow Rate (L/min) 8 Oxygen Delivery Method Nasal Cannula Weight: 189 lb 9.561 oz Body Mass Index (BMI) 31.5 Intake & Output: Intake and Output for Last 24 Hours 06/03/25 06/04/25 06/05/25 03:59 03:59 03:59 Intake Total 844 / 844 1030 / 1030 140 / 140 Output Total 1735 / 1735 1150 / 1150 1100 / 1100 Balance -891 / -891 -120 / -120 -960 / -960 Lab / Micro Data 06/05/25 04:57 06/05/25 04:57 Labs: Laboratory Results - last 24 hr 06/04/25 04:45: WBC 9.3, RBC 3.48 L, Hgb 7.8 L, Hct 27.8 L, MCV 79.9 L, MCH 22.4 L, MCHC 28.1 L, RDW Std Deviation TNP, RDW Coeff of Federico TNP, Plt Count 413, MPV 10.4, Immature Gran % (Auto) 0.800, Neut % (Auto) 77.8 H, Lymph % (Auto) 11.4 L, [place] % (Auto) 7.8, Eos % (Auto) 1.7, Baso % (Auto) 0.5, Absolute Neuts (auto) 7.2, Absolute Lymphs (auto) 1.05, Nucleated RBC % 0, Plt Morphology Comment ADEQ, Polychromasia 1+, Anisocytosis 2+, Target Cells 1+, Ovalocytes 1+, Sodium 142, Potassium 4.3, Chloride 108, Carbon Dioxide 23.5, Anion Gap 11, BUN 27 H, C reatinine 1.49 H, Estim Creat Clear Calc 42.94 L, Est GFR (MDRD) Non-Af 40 L, BUN/Creatinine Ratio 18.1, Glucose 84, Calcium 8.1 Micro: Microbiology 05/29/25 10:00 Stool Enteric Bacteriology - Final 05/29/25 10:00 Stool Clostridioides difficile (PCR) - Final 05/21/25 15:15 Blood Culture (Wb) - Central Line Blood Culture - Final No growth in 5 days. 05/21/25 14:15 Sputum, Induced/Lukens Gram Stain - Final 05/21/25 14:15 Sputum, Induced/Lukens Respiratory Culture - Final 05/21/25 17:40 Urine Catheter - Fiore Urine Culture - Final Escherichia coli Physical Exam Narrative General: Alert, not really communicative, on BiPAP HEENT: Atraumatic, PERRLA, EOMI, Normocephalic Oral: Moist Mucosa Neck: Supple, No JVD Lungs: Diminished, Normal air movement, No rhonchi, No wheeze, No rales Cardiovascular: Regular rate, Regular Rhythm, Normal S1, Normal S2, No murmurs Abdomen: Soft, Non Tender, Non-Distended, No Hepato-splenomegaly Extremities: Trace edema, Capillary Refill Less than 3 Seconds Skin: No rashes, No breakdown Musculoskeletal: No Tenderness to Palpation of Joints or Extremities Neurological: Chronic neurological changes with limited use of her right arm Psych/Mental Status: Flat Assessment & Plan Assessment/Plan (1) Hypernatremia: (2) Dysphagia: (3) (HFpEF) heart failure with preserved ejection fraction: (4) Acute blood loss anemia: (5) Atrial fibrillation with RVR: PLAN: Plan #Acute hypoxic respiratory failure * thought to be due to CHF and pneumonia * on zosyn. Was intubated and subsequently on 05/25/2025. * now down to 2L of oxygen. * Titrate oxygen to maintain sats above 90%. Breathing treatments with bronchodilators. * she completed a course of antibiotic 06/04/2025: Increased oxygen requirements today requiring BiPAP. Unclear as to what the etiology is however she does appear little bit volume overloaded so we will increase her Lasix dosing to IV twice daily #Acute on chronic HFpEF * EF is normal at 60%, and mild concentric LVH and apical hypertrophic cardiomyopathy present. * received IV lasix 40mg x 1. * pro BNP: 10482 * on 3L oxygen today. Titrate oxygen to maintain sats >90% * breathing treatment with bronchodilators. * She is in cumulative positive balance by 5.945L * On p.o. Lasix 06/04/2025: Continue with IV Lasix for diuresis #Atrial fibrillation with RVR * new diagnosis. not anticoagulated. * now on metoprolol. RVR has resolved. #Diarrhea * Enteric pathogen and C Diff screen negative. * diarrhea has largely resolved #Hypokalemia: Resolved K is 3.8. Will give PO potassium to keep K >4 #Acute blood loss anemia secondary to concern for uterine cancer * Initial Hb on admission was 3.6. * transfused with 4 units of PRBCs. * Hb today is 7.8 * received IV iron. On IV PPI * EGD showed non bleeding cratered duodenal ulcers and multiple linear gastric ulcers (nonbleeding) * iron studies showed iron deficiency. * transfuse to keep HB >7 * to have repeat EGD in 8-12 weeks to evaluate for healing of gastric ulcers and obtain biopsies. * Noted to have vaginal bleeding. Transvaginal ultrasound done showed endometrial thickening with clinical correlation recommended. Thickness noted to be abnormal for patient's postmenopausal state. * Gynecology reviewed patient and did a bedside endometrial biopsy. CA 129 and CEA antigens ordered per gynecology * Per Dr. More, she is concerned about cancer and if this is proven patient will be referred to [facility] oncologist in [place] on outpatient basis. * Ca 125 elevated at eight 7.4 although CEA antigen is normal at 1.3. Will need follow-up on outpatient basis with gynecology 06/04/2025: Hemoglobin appears stabilized at 7.8, will recheck in the morning. Will discuss with family about transfer given the severity of her potential uterine cancer with her continued bleeding as well as now her increased oxygen requirements and respiratory status. #Nonsustained V. tach: * was on carvedilol but cardiology consulted and recommended discontinuing carvedilol and starting on metoprolol 50mg bid. Due to patient's low BP, was started on PO metoprolol 12.5mg bid. * Will increase to 25mg bid today. * to keep potassium >4 and magnesium >2. #Right ankle inversion * PT/OT worked with patient today and recommended ankle brace o/a of the right ankle inversion * PT/OT On board. fall precautions * case management to help facilitate getting a right ankle brace when they return tomorrow. #Dysphagia * speech therapy on board. * now on modified diet by speech therapy * Barium swallow showed moderate-severe oropharyngeal dysphagia #RAMEZ on CKD: Resolved. Cr is 1.30 today, which is around his baseline. 06/04/2025: Creatinine up to 1.49 today will continue to monitor in the setting of increasing her Lasix #Hypernatremia: resolved. #History of stroke: not on anticoagulation or antiplatelets. s/p right sided hemiparesis. #Hypertension: on amlodipine, carvedilol and hydralazine which are on hold due to hypotension. Carvedilol resumed due to afib and nonsustained vtach. Carvedilol now switched to PO metoprolol per cardiology DVT: SCDs 20-minute discussion on advance care planning with her brother and her mother on the phone because of the concern for the diagnosis of uterine cancer and the need for possible transfer to a tertiary center Charges/Coding Multi Select Codes Visit Charges Visit Charges: 07941 Subs Hosp L2 Hospitalists' Procedures Procedures: 51948 Advncd Care Plan 30 Min
[2025-06-05] VITALS (14 sets, daily range): BP systolic 108–136; BP diastolic 72–94; PULSE 76–105; RESP 12–28; TEMP 35.8–37; O2SAT 90–98; BMI 30.4
[2025-06-05 05:53] LABS: Hematocrit 25.1 % (37-47); Hemoglobin 7.2 g/dL (12.0-15.0); Immature Granulocytes Count 0.020 X10^3/uL (0.0-0.0); Mean Corp Hgb Conc 28.7 g/dL (32-36); Mean Corpuscular Volume 78.4 fL (81-99); Mean Platelet Vol. 10.3 fl (6.2-12.0); NRBC Flagged by Analyzer 0 % (0-5); POSITIVE MORPHOLOGY YES; Platelet Count 415 K/mm3 (150-450); Red Blood Count 3.20 M/mm3 (4.2-5.4); White Blood Count 6.5 K/mm3 (4.4-11.0)
[2025-06-05 05:56] LABS: Differential Indicated SCAN CRITERIA MET
[2025-06-05 06:28] LABS: Anion Gap 13 (5-15); BUN 35 mg/dL (4-19); BUN/Creat Ratio 20.3 RATIO (10-20); Calcium,Total 7.9 mg/dL (7.6-11.0); Carbon Dioxide 25.5 mmol/L (21.0-32.0); Chloride 104 mmol/L (98-108); Estimated Creatinine Clearance 36.77 ml/min (50-250); Glucose 94 mg/dL (70-99); Magnesium 2.1 mg/dL (1.5-2.2); Potassium 3.6 mmol/L (3.3-5.1)
[2025-06-05 06:38] LABS: Anisocytosis 1+; Differential Comment SCANNED; Hypochromasia RARE; Polychromasia RARE
--- NOTE | 2025-06-05 09:07 | PN.OBGYN_ITS ---
Subjective Subjective Patient stable with minimal vaginal bleeding overnight. Objective Data Objective Data Vital Signs: Vital Signs Temp Pulse Resp BP Pulse Ox O2 Del Method O2 Flow Rate 97.5 F L 84 24 H 136/92 H 94 High Flow 7 06/05/25 04:08 06/05/25 04:08 06/05/25 04:08 06/05/25 04:08 06/05/25 07:00 06/05/25 07:00 06/05/25 07:00 FiO2 50 06/05/25 04:08 Oxygen Flow Rate (L/min) 7 Oxygen Delivery Method High Flow Weight: 182 lb 15.739 oz Body Mass Index (BMI) 30.4 Intake & Output: Intake and Output for Last 24 Hours 06/03/25 06/04/25 06/05/25 23:59 23:59 23:59 Intake Total 1134 / 1134 500 / 500 120 / 120 Output Total 350 / 1150 2300 / 2300 300 / 300 Balance 784 / -16 -1800 / -1800 -180 / -180 Lab / Micro Data 06/05/25 04:57 06/05/25 04:57 Labs: Laboratory Results - last 24 hr 06/05/25 04:57: WBC 6.5, RBC 3.20 L, Hgb 7.2 L, Hct 25.1 L, MCV 78.4 L, MCH 22.5 L, MCHC 28.7 L, RDW Std Deviation TNP, RDW Coeff of Federico TNP, Plt Count 415, MPV 10.3, Immature Gran % (Auto) 0.300, Neut % (Auto) 67.0, Lymph % (Auto) 19.0, [place] % (Auto) 9.9, Eos % (Auto) 3.2, Baso % (Auto) 0.6, Absolute Neuts (auto) 4.4, Absolute Lymphs (auto) 1.23, Nucleated RBC % 0, Differential Comment SCANNED, Polychromasia RARE, Hypochromasia RARE, Anisocytosis 1+, Ovalocytes RARE, Sodium 142, Potassium 3.6, Chloride 104, Carbon Dioxide 25.5, Anion Gap 13, BUN 35 H, Creatinine 1.74 H, Estim Creat Clear Calc 36.77 L, Est GFR (MDRD) Non-Af 33 L, BUN/Creatinine Ratio 20.3 H, Glucose 94, Calcium 7.9, Phosphorus 4.3, Magnesium 2.1 Micro: Microbiology 05/29/25 10:00 Stool Enteric Bacteriology - Final 05/29/25 10:00 Stool Clostridioides difficile (PCR) - Final 05/21/25 15:15 Blood Culture (Wb) - Central Line Blood Culture - Final No growth in 5 days. 05/21/25 14:15 Sputum, Induced/Lukens Gram Stain - Final 05/21/25 14:15 Sputum, Induced/Lukens Respiratory Culture - Final 05/21/25 17:40 Urine Catheter - Fiore Urine Culture - Final Escherichia coli Radiography Diagnostic Testing: Radiology Impression Transvaginal US 06/01/25 08:26 IMPRESSION: Endometrial thickening. Clinical correlation recommended. [facility]-Ray 06/02/25 04:00 IMPRESSION: Right internal jugular central catheter is in good position with its tip at the atriocaval junction. Minimal decrease in multifocal pulmonary congestion/infiltrates. Unchanged minimal left pleural effusion. Enlarged cardiac silhouette. Reading Location: [address] Constitutional Constitutional: Reports systems reviewed and no addt'l complaints, except as documented Cardiovascular Cardiovascular: Reports systems reviewed and no addt'l complaints, except as documented Respiratory/Chest Respiratory/Chest: Reports systems reviewed and no addt'l complaints, except as documented Gastrointestinal Gastrointestinal: Reports systems reviewed and no addt'l complaints, except as documented Physical Exam Const alert, oriented x3 and no apparent distress HEENT Head and Scalp: atraumatic Resp normal respiratory effort GI soft to palpation and non-tender Assessment & Plan (1) Postmenopausal bleeding: COMMENT: EMB done, needs polyp removed as OP also. await pathology to determine intervention. cea and ca125 done- ca125 significantly elevated which is suspicious for cancer. (2) Endometrial thickening on ultrasound: PLAN: Plan stable, awaiting pathology report to determine recommendations for intervention. Charges/Coding Visit Charges Inpatient E&M: 96929 Subs Hosp L3
[2025-06-05 10:22] LABS: Surgical Specimen Collection SEE PATHOLOGY REPORT
--- NOTE | 2025-06-05 10:34 | CT_ITS ---
PROCEDURE: CTA CHEST W/WO CONTRAST 06/05/2025 REASON FOR EXAM: EVAL FOR PE TECHNIQUE: Procedure Code: [id number] Modality: CT Procedure: CTA CHEST W/WO CONTRAST Multiplanar Sagittal and Coronal images were obtained. 3D post processing was performed CONTRAST: Isovue 370 VOLUME: 75 mL One or more dose reduction techniques were used (e.g., Automated exposure control, adjustment of the mA and/or kV according to patient size, use of iterative reconstruction technique). RADIATION DOSE SUMMARY: CTDlvol: 18 mGy DLP: 360 mGycm COMPARISON: June 02, 2025, May 28, 2025 # of known CTs in the past 12 months: 0 # of known Cardiac Nuclear Medicine Studies in the past 12 months: 0 FINDINGS: Image quality is degraded by respiratory motion artifact. Thoracic Aorta: Mild atherosclerosis without aneurysm. Heart: Heart is enlarged. No pericardial effusion. Coronary artery atherosclerosis. Pulmonary Vessels: Timing and quality of the contrast bolus is diagnostic at the level of the central, main and interlobar pulmonary arteries. The segmental pulmonary arteries in the lower lobes are limited by motion artifact. The segmental and subsegmental vessels in the upper lobes are diagnostic. No evidence of pulmonary embolus in those diagnostic distributions. Hardware: Right internal jugular line is in place. Lymph nodes: Shotty lymph nodes in the mediastinum are likely reactive. None appear enlarged in short axis. Lungs and Airways: Patchy interstitial and airspace opacities shown throughout both lungs. Pleura: No pleural effusion or pneumothorax. Upper Abdomen: Unremarkable Bones: No fracture. Mild degenerative changes. CT/CTA Chest W/WO Contrast IMPRESSION: 1. No evidence of acute or chronic pulmonary embolus. Limitation of the segme ntal and subsegmental vessels in the lower lobes. 2. Cardiac enlargement. Coronary artery disease. 3. Bilateral interstitial and airspace opacities throughout both lungs. This is fairly extensive. Underlying pneumonia should be considered. 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 Reading Location: [id number]
--- NOTE | 2025-06-05 10:34 | PCM.PN.INT ---
Assessment & Plan Assessment/Plan (1) Acute hypoxemic respiratory failure: (2) Elevated troponin: (3) Acute on chronic kidney failure: (4) New onset a-fib: (5) Shock: PLAN: Plan RECOMMENDATIONS: 1. Supplemental oxygen to maintain saturations at or above 90%. 2. BiPAP therapy with naps and nightly to assist with alveolar recruitment. 3. Hold diuretics given rising creatinine. 4. Obtain CTA chest to rule out pulmonary embolism. 5. Continue to monitor H&H. Transfuse if hemoglobin drops below 7 g/dL. 6. Dietary advancement per speech therapy. IMPRESSIONS: 1. Undifferentiated shock Resolved. Most likely secondary to hemorrhagic etiology in the setting of acute blood loss anemia +/- sepsis related to pneumonia. The patient is currently hemodynamically stable. The patient completed a 7-day treatment course of antimicrobials. The patient is status post endoscopic evaluation by GI with gastric ulcers and nonbleeding duodenal ulcers noted. The patient will be continued on PPI therapy. 2. Acute hypoxemic respiratory failure Clinical concern for underlying pneumonia along with atelectasis. While there was initial concern for decompensated heart failure, the patient's echocardiogram revealed a normal ejection fraction. She was ultimately intubated on May 21, due to her inability to compensate from a respiratory perspective for her underlying metabolic acidosis. With supportive care and antimicrobials, the patient improved from a respiratory perspective and was able to be extubated. At this time, recommend aggressive bronchopulmonary hygiene. Although the patient has been diuresed with improving oxygenation status, her creatinine is slowly rising. Therefore, recommend holding diuretics. Obtain CTA chest to rule out pulmonary embolism. Recommend BiPAP therapy with naps and nightly to assist with alveolar recruitment. 3. History of CVA with residual deficits/hypertension/hyperlipidemia Complicates care, management, recovery and prognosis. Continue supportive measures as noted above. Physical therapy to work with the patient. Dietary advancement per speech therapy. This note was generated with [employer] dictation software. It may contain incorrect words, spelling, and punctuation that were not noted in checking the note before signing. Subjective Subjective The patient was seen and examined at the bedside this morning. Events from the last 24 hours have been reviewed. The patient is currently afebrile, hemodynamically stable and maintaining appropriate oxygen saturations on 6 L/min via nasal cannula. I was asked to reevaluate the patient this morning on account of her hypoxemia. The patient has been diuresed over the course of the last several days, which has led to some improvement in her oxygenation status. However, the patient has developed worsening renal insufficiency. The patient is not currently on any form of pharmacologic DVT prophylaxis secondary to postmenopausal bleeding. Objective Data Objective Data The patient's most recent lab work, culture data and imaging studies have all been personally reviewed. Surface echocardiogram demonstrated mild concentric LVH with an ejection fraction of 60%. Vital Signs: Vital Signs Temp Pulse Resp BP Pulse Ox O2 Del Method O2 Flow Rate 97.5 F L 84 24 H 136/92 H 90 High Flow 6 06/05/25 04:08 06/05/25 04:08 06/05/25 04:08 06/05/25 04:08 06/05/25 09:36 06/05/25 07:00 06/05/25 09:38 FiO2 50 06/05/25 04:08 Oxygen Flow Rate (L/min) 6 Oxygen Delivery Method High Flow Weight: 182 lb 15.739 oz Body Mass Index (BMI) 30.4 Intake & Output: Intake and Output for Last 24 Hours 06/03/25 06/04/25 06/05/25 23:59 23:59 23:59 Intake Total 1134 / 1134 500 / 500 120 / 120 Output Total 350 / 1150 2300 / 2300 300 / 300 Balance 784 / -16 -1800 / -1800 -180 / -180 Lab / Micro Data Attestation: I reviewed the patient's lab results. 06/05/25 04:57 06/05/25 04:57 Labs: Laboratory Results - last 24 hr 06/05/25 04:57: WBC 6.5, RBC 3.20 L, Hgb 7.2 L, Hct 25.1 L, MCV 78.4 L, MCH 22.5 L, MCHC 28.7 L, RDW Std Deviation TNP, RDW Coeff of Federico TNP, Plt Count 415, MPV 10.3, Immature Gran % (Auto) 0.300, Neut % (Auto) 67.0, Lymph % (Auto) 19.0, [place] % (Auto) 9.9, Eos % (Auto) 3.2, Baso % (Auto) 0.6, Absolute Neuts (auto) 4.4, Absolute Lymphs (auto) 1.23, Nucleated RBC % 0, Differential Comment SCANNED, Polychromasia RARE, Hypochromasia RARE, Anisocytosis 1+, Ovalocytes RARE, Sodium 142, Potassium 3.6, Chloride 104, Carbon Dioxide 25.5, Anion Gap 13, BUN 35 H, Creatinine 1.74 H, Estim Creat Clear Calc 36.77 L, Est GFR (MDRD) Non-Af 33 L, BUN/Creatinine Ratio 20.3 H, Glucose 94, Calcium 7.9, Phosphorus 4.3, Magnesium 2.1 Micro: Microbiology 05/29/25 10:00 Stool Enteric Bacteriology - Final 05/29/25 10:00 Stool Clostridioides difficile (PCR) - Final 05/21/25 15:15 Blood Culture (Wb) - Central Line Blood Culture - Final No growth in 5 days. 05/21/25 14:15 Sputum, Induced/Lukens Gram Stain - Final 05/21/25 14:15 Sputum, Induced/Lukens Respiratory Culture - Final 05/21/25 17:40 Urine Catheter - Fiore Urine Culture - Final Escherichia coli ABG Data ABG results: ABG 05/21/25 05/21/25 09:30 15:31 Specimen Type ART LJ Sample Site L Radial L Radial pH 7.46 H Bicarbonate Actual 16.4 L Total CO2 17 Base Excess -7 L O2 Saturation 97 O2 % 100.0 60.0 ABG pCO2 22.8 L ABG pO2 79 Alcon Test Positive VBG pH 7.41 VBG pO2 23 L VBG HCO3 20 L VBG Total CO2 21 L VBG O2 Sat (Calc) 42 L VBG Base Excess -4 L POC Mix VBG pCO2 Pt Tmp 32.4 L Respiration Rate 16 O2 Delivery Device NRB Adult Vent Vent Mode Not entered Tidal Volume 450.0 POC PEEP 5 Radiography Diagnostic Testing: Radiology Impression Chest X-Ray 05/28/25 03:30 IMPRESSION: Unchanged minimal left pleural effusion. Unchanged passive atelectatic airspace disease of the left lower lobe. Right internal jugular central catheter is unchanged. Enteric feeding tube has been removed in the interim. Endotracheal tube has been removed in the interim. Minimal decrease in pulmonary congestion/infiltrates. Enlarged cardiac silhouette. Reading Location: [place] [id number] Physical Exam Const alert and no apparent distress Constitutional Narrative: Brother is present at the bedside. General Appearance: cooperative HEENT normocephalic and head/scalp atraumatic Eyes PERRL, EOMs intact bilaterally and conjunctivae normal Neck supple General: trachea midline and CVC in place Chest inspection of chest normal Resp Auscultation: diminished lung sounds; Negative for rales, rhonchi or wheezes Cardio regular rate, regular rhythm, S1 normal heart sound and S2 normal heart sound GI normal to inspection, nondistended, normoactive bowel sounds Extremity General Extremity: edema; Negative for clubbing Skin no rashes or lesions noted Neuro CN's II-XII intact bilaterally Neuro Narrative: Contracted right-sided extremities. Psych Mood & Affect: flat affect Charges/Coding Visit Charges Inpatient E&M: 94115 Subs Hosp L3
[2025-06-05] MEDS: Pantoprazole Sodium 40 MG in 0.9% Normal Saline (100mL MB+) 100 ML 300 MG IV ×2 (11:32→22:46)
[2025-06-05] MEDS: 0.9% Saline Lock 10 ML Syringe IV ×2 (11:32→15:44)
[2025-06-05 12:25] LABS: Pro- Brain NATRIURETIC PEPTIDE 13688 pg/mL (<=900); Procalcitonin 0.29 ng/mL (<=0.10)
[2025-06-05] MEDS: Sodium Ferric Gluconat/Sucrose 250 MG in 0.9% Normal Saline (250mL Bag) 250 ML 135 MG IV (15:44)
--- NOTE | 2025-06-05 17:01 | PN.HOSP_ITS ---
Subjective Subjective Will continue to encourage BiPAP at night when with sleep. Currently on 8 L nasal cannula Objective Data Objective Data Vital Signs: Vital Signs Temp Pulse Resp BP Pulse Ox O2 Del Method O2 Flow Rate 97.8 F 91 18 108/72 93 High Flow 6 06/05/25 15:45 06/05/25 15:45 06/05/25 15:45 06/05/25 15:45 06/05/25 15:45 06/05/25 15:45 06/05/25 15:45 FiO2 50 06/05/25 04:08 Oxygen Flow Rate (L/min) 6 Oxygen Delivery Method High Flow Weight: 182 lb 15.739 oz Body Mass Index (BMI) 30.4 Intake & Output: Intake and Output for Last 24 Hours 06/04/25 06/05/25 06/06/25 03:59 03:59 03:59 Intake Total 1030 / 1030 500 / 500 220 / 220 Output Total 1150 / 1150 1500 / 1500 500 / 500 Balance -120 / -120 -1000 / -1000 -280 / -280 Lab / Micro Data 06/05/25 04:57 06/05/25 04:57 Labs: Laboratory Results - last 24 hr 06/05/25 04:57: WBC 6.5, RBC 3.20 L, Hgb 7.2 L, Hct 25.1 L, MCV 78.4 L, MCH 22.5 L, MCHC 28.7 L, RDW Std Deviation TNP, RDW Coeff of Federico TNP, Plt Count 415, MPV 10.3, Immature Gran % (Auto) 0.300, Neut % (Auto) 67.0, Lymph % (Auto) 19.0, [place] % (Auto) 9.9, Eos % (Auto) 3.2, Baso % (Auto) 0.6, Absolute Neuts (auto) 4.4, Absolute Lymphs (auto) 1.23, Nucleated RBC % 0, Differential Comment SCANNED, Polychromasia RARE, Hypochromasia RARE, Anisocytosis 1+, Ovalocytes RARE, Sodium 142, Potassium 3.6, Chloride 104, Carbon Dioxide 25.5, Anion Gap 13, BUN 35 H, Creatinine 1.74 H, Estim Creat Clear Calc 36.77 L, Est GFR (MDRD) Non-Af 33 L, BUN/Creatinine Ratio 20.3 H, Glucose 94, Calcium 7.9, Phosphorus 4.3, Magnesium 2.1, [place] [address] H, Procalcitonin 0.29 H Micro: Microbiology 05/29/25 10:00 Stool Enteric Bacteriology - Final 05/29/25 10:00 Stool Clostridioides difficile (PCR) - Final 05/21/25 15:15 Blood Culture (Wb) - Central Line Blood Culture - Final No growth in 5 days. 05/21/25 14:15 Sputum, Induced/Lukens Gram Stain - Final 05/21/25 14:15 Sputum, Induced/Lukens Respiratory Culture - Final 05/21/25 17:40 Urine Catheter - Fiore Urine Culture - Final Escherichia coli Radiography Diagnostic Testing: Radiology Impression Chest CTA 06/05/25 10:34 IMPRESSION: 1. No evidence of acute or chronic pulmonary embolus. Limitation of the segmental and subsegmental vessels in the lower lobes. 2. Cardiac enlargement. Coronary artery disease. 3. Bilateral interstitial and airspace opacities throughout both lungs. This is fairly extensive. Underlying pneumonia should be considered. 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 Reading Location: [facility] Physical Exam Narrative General: Alert, not really communicative HEENT: Atraumatic, PERRLA, EOMI, Normocephalic Oral: Moist Mucosa Neck: Supple, No JVD Lungs: Diminished, Normal air movement, No rhonchi, No wheeze, No rales Cardiovascular: Regular rate, Regular Rhythm, Normal S1, Normal S2, No murmurs Abdomen: Soft, Non Tender, Non-Distended, No Hepato-splenomegaly Extremities: Trace edema, Capillary Refill Less than 3 Seconds Skin: No rashes, No breakdown Musculoskeletal: No Tenderness to Palpation of Joints or Extremities Neurological: Chronic neurological changes with limited use of her right arm Psych/Mental Status: Flat Assessment & Plan Assessment/Plan (1) Hypernatremia: (2) Dysphagia: (3) (HFpEF) heart failure with preserved ejection fraction: (4) Acute blood loss anemia: (5) Atrial fibrillation with RVR: PLAN: Plan #Acute hypoxic respiratory failure * thought to be due to CHF and pneumonia * on zosyn. Was intubated and subsequently on 05/25/2025. * now down to 2L of oxygen. * Titrate oxygen to maintain sats above 90%. Breathing treatments with bronchodilators. * she completed a course of antibiotic 06/04/2025: Increased oxygen requirements today requiring BiPAP. Unclear as to what the etiology is however she does appear little bit volume overloaded so we will increase her Lasix dosing to IV twice daily 06/05/2025: Will attempt transfer to a tertiary care center at the request of family. In the meantime we will consult pulmonology for assistance. Will discontinue Lasix as her creatinine has increased again to 1.74 #Acute on chronic HFpEF * EF is normal at 60%, and mild concentric LVH and apical hypertrophic cardiomyopathy present. * received IV lasix 40mg x 1. * pro BNP: 28292 * on 3L oxygen today. Titrate oxygen to maintain sats >90% * breathing treatment with bronchodilators. * She is in cumulative positive balance by 5.945L * On p.o. Lasix 06/04/2025: Continue with IV Lasix for diuresis 06/05/2025: Will discontinue Lasix secondary to rise in her creatinine #Atrial fibrillation with RVR * new diagnosis. not anticoagulated. * now on metoprolol. RVR has resolved. #Diarrhea * Enteric pathogen and C Diff screen negative. * diarrhea has largely resolved #Hypokalemia: Resolved K is 3.8. Will give PO potassium to keep K >4 #Acute blood loss anemia secondary to concern for uterine cancer * Initial Hb on admission was 3.6. * transfused with 4 units of PRBCs. * Hb today is 7.8 * received IV iron. On IV PPI * EGD showed non bleeding cratered duodenal ulcers and multiple linear gastric ulcers (nonbleeding) * iron studies showed iron deficiency. * transfuse to keep HB >7 * to have repeat EGD in 8-12 weeks to evaluate for healing of gastric ulcers and obtain biopsies. * Noted to have vaginal bleeding. Transvaginal ultrasound done showed endometrial thickening with clinical correlation recommended. Thickness noted to be abnormal for patient's postmenopausal state. * Gynecology reviewed patient and did a bedside endometrial biopsy. CA 129 and CEA antigens ordered per gynecology * Per Dr. More, she is concerned about cancer and if this is proven patient will be referred to [employer] oncologist in [place] on outpatient basis. * Ca 125 elevated at eight 7.4 although CEA antigen is normal at 1.3. Will need follow-up on outpatient basis with gynecology 06/04/2025: Hemoglobin appears stabilized at 7.8, will recheck in the morning. Will discuss with family about transfer given the severity of her potential uterine cancer with her continued bleeding as well as now her increased oxygen requirements and respiratory status. 06/05/2025: Hemoglobin is 7.2, this could indicate a recurrent bleed versus equalization versus just normal lab variance however given her recent history we will go ahead and provide her with a dose of Venofer and recheck hemoglobin in the morning pending transfer to a tertiary center #Nonsustained V. tach: * was on carvedilol but cardiology consulted and recommended discontinuing carvedilol and starting on metoprolol 50mg bid. Due to patient's low BP, was started on PO metoprolol 12.5mg bid. * Will increase to 25mg bid today. * to keep potassium >4 and magnesium >2. #Right ankle inversion * PT/OT worked with patient today and recommended ankle brace o/a of the right ankle inversion * PT/OT On board. fall precautions * case management to help facilitate getting a right ankle brace when they return tomorrow. #Dysphagia * speech therapy on board. * now on modified diet by speech therapy * Barium swallow showed moderate-severe oropharyngeal dysphagia #RAMEZ on CKD: Resolved. Cr is 1.30 today, which is around his baseline. 06/04/2025: Creatinine up to 1.49 today will continue to monitor in the setting of increasing her Lasix 06/05/2025: Creatinine is up to 1.74 today we will discontinue Lasix appreciate pulmonary's assistance #Hypernatremia: resolved. #History of stroke: not on anticoagulation or antiplatelets. s/p right sided hemiparesis. #Hypertension: on amlodipine, carvedilol and hydralazine which are on hold due to hypotension. Carvedilol resumed due to afib and nonsustained vtach. Carvedilol now switched to PO metoprolol per cardiology DVT: SCDs Charges/Coding Visit Charges Inpatient E&M: 20285 Subs Hosp L2
[2025-06-06] VITALS (16 sets, daily range): BP systolic 108–132; BP diastolic 74–88; PULSE 78–110; RESP 12–28; TEMP 36.4–37; O2SAT 80–98; BMI 30.2
[2025-06-06 05:41] LABS: Hematocrit 26.8 % (37-47); Hemoglobin 7.6 g/dL (12.0-15.0); Immature Granulocytes Count 0.030 X10^3/uL (0.0-0.0); Mean Corp Hgb Conc 28.4 g/dL (32-36); Mean Corpuscular Volume 78.8 fL (81-99); Mean Platelet Vol. 10.0 fl (6.2-12.0); NRBC Flagged by Analyzer 0 % (0-5); POSITIVE MORPHOLOGY YES; Platelet Count 453 K/mm3 (150-450); RBC Distribution Width CV 27.6 % (11.6-14.6); RBC Distribution Width SD 71.7 fl (35.1-43.9); Red Blood Count 3.40 M/mm3 (4.2-5.4); White Blood Count 8.1 K/mm3 (4.4-11.0)
[2025-06-06 05:45] LABS: Differential Indicated SCAN CRITERIA MET
[2025-06-06 06:06] LABS: Anion Gap 12 (5-15); BUN 44 mg/dL (4-19); BUN/Creat Ratio 25.3 RATIO (10-20); Calcium,Total 8.2 mg/dL (7.6-11.0); Carbon Dioxide 26.0 mmol/L (21.0-32.0); Chloride 105 mmol/L (98-108); Estimated Creatinine Clearance 35.81 ml/min (50-250); Glucose 103 mg/dL (70-99); Potassium 3.9 mmol/L (3.3-5.1)
[2025-06-06 06:33] LABS: Differential Comment SCANNED
[2025-06-06 06:34] LABS: Acanthocytes 1+; Anisocytosis 2+; Polychromasia 1+; Target Cells 1+
[2025-06-06] MEDS: 0.9% Saline Lock 10 ML Syringe IV ×3 (09:12→21:41)
[2025-06-06] MEDS: Pantoprazole Sodium 40 MG in 0.9% Normal Saline (100mL MB+) 100 ML 300 MG IV ×2 (09:12→21:44)
--- NOTE | 2025-06-06 09:17 | PN.CC_ITS ---
Assessment & Plan Assessment/Plan (1) Acute hypoxemic respiratory failure: (2) Elevated troponin: (3) Acute on chronic kidney failure: (4) New onset a-fib: (5) Shock: PLAN: Plan RECOMMENDATIONS: 1. Supplemental oxygen to maintain saturations at or above 90%. 2. BiPAP therapy with naps and nightly to assist with alveolar recruitment. 3. Consider resuming Lasix once daily and monitoring renal function accordingly. 4. Continue to monitor H&H. Transfuse if hemoglobin drops below 7 g/dL. 5. Dietary advancement per speech therapy. IMPRESSIONS: 1. Undifferentiated shock Resolved. Most likely secondary to hemorrhagic etiology in the setting of acute blood loss anemia +/- sepsis related to pneumonia. The patient is currently hemodynamically stable. The patient completed a 7-day treatment course of antimicrobials. The patient is status post endoscopic evaluation by GI with gastric ulcers and nonbleeding duodenal ulcers noted. The patient will be continued on PPI therapy. 2. Acute hypoxemic respiratory failure While the patient was initially intubated earlier in the hospitalization secondary to pneumonia, she has since been extubated and completed a 7-day treatment course of antimicrobials. CTA chest obtained yesterday ruled out pulmonary embolism but did demonstrate continued evidence of bilateral infiltrates, likely the sequelae of her recent pneumonia. In addition, she has a significantly elevated BNP. Overall, the patient's oxygenation status has improved with diuresis. However, her creatinine has risen. Recommend cautious reintroduction of diuretics with close attention to renal function. Continue to wean supplemental oxygen as tolerated. Recommend BiPAP therapy with naps and nightly to assist with alveolar recruitment. 3. History of CVA with residual deficits/hypertension/hyperlipidemia Complicates care, management, recovery and prognosis. Continue supportive measures as noted above. Physical therapy to work with the patient. Dietary advancement per speech therapy. This note was generated with [employer] dictation software. It may contain incorrect words, spelling, and punctuation that were not noted in checking the note before signing. Subjective Subjective The patient was seen and examined at the bedside this morning. Events from the last 24 hours have been reviewed. The patient is currently afebrile, hemodynamically stable and maintaining appropriate oxygen saturations on 6 L/min via nasal cannula. The patient is currently documented to be overall net +3.7 L for the hospitalization. Hemoglobin is stable at 7.6 g/dL. Creatinine has plateaued at 1.75. BNP was elevated at 13,688. Objective Data Objective Data The patient's most recent lab work, culture data and imaging studies have all been personally reviewed. Surface echocardiogram demonstrated mild concentric LVH with an ejection fraction of 60%. Vital Signs: Vital Signs Temp Pulse Resp BP Pulse Ox O2 Del Method O2 Flow Rate 97.9 F 102 H 18 108/78 95 High Flow 6 06/06/25 09:09 06/06/25 09:14 06/06/25 09:09 06/06/25 09:14 06/06/25 09:15 06/06/25 09:15 06/06/25 09:15 FiO2 50 06/06/25 02:00 Oxygen Flow Rate (L/min) 6 Oxygen Delivery Method High Flow Weight: 181 lb 14.102 oz Body Mass Index (BMI) 30.2 Intake & Output: Intake and Output for Last 24 Hours 06/04/25 06/05/25 06/06/25 23:59 23:59 23:59 Intake Total 500 / 500 590 / 830 240 / 240 Output Total 2300 / 2300 620 / 820 700 / 700 Balance -1800 / -1800 -30 / 10 -460 / -460 Lab / Micro Data Attestation: I reviewed the patient's lab results. 06/06/25 05:18 06/06/25 05:18 Labs: Laboratory Results - last 24 hr 06/05/25 04:57: [place] [address] H, Procalcitonin 0.29 H 06/06/25 05:18: WBC 8.1, RBC 3.40 L, Hgb 7.6 L, Hct 26.8 L, MCV 78.8 L, MCH 22.4 L, MCHC 28.4 L, RDW Std Deviation 71.7 H, RDW Coeff of Federico 27.6 H, Plt Count 453 H, MPV 10.0, Immature Gran % (Auto) 0.400, Neut % (Auto) 74.1 H, Lymph % (Auto) 13.3 L, [place] % (Auto) 9.2, Eos % (Auto) 2.3, Baso % (Auto) 0.7, Absolute Neuts (auto) 6.0, Absolute Lymphs (auto) 1.08, Nucleated RBC % 0, Differential Comment SCANNED, Platelet Estimate SLT INC, Polychromasia 1+, Anisocytosis 2+, Target Cells 1+, Ovalocytes 1+, Acanthocytes (Spur) 1+, Sodium 143, Potassium 3.9, Chloride 105, Carbon Dioxide 26.0, Anion Gap 12, BUN 44 H, Creatinine 1.75 H, E stim Creat Clear Calc 35.81 L, Est GFR (MDRD) Non-Af 33 L, BUN/Creatinine Ratio 25.3 H, Glucose 103 H, Calcium 8.2 Micro: Microbiology 05/29/25 10:00 Stool Enteric Bacteriology - Final 05/29/25 10:00 Stool Clostridioides difficile (PCR) - Final 05/21/25 15:15 Blood Culture (Wb) - Central Line Blood Culture - Final No growth in 5 days. 05/21/25 14:15 Sputum, Induced/Lukens Gram Stain - Final 05/21/25 14:15 Sputum, Induced/Lukens Respiratory Culture - Final 05/21/25 17:40 Urine Catheter - Fiore Urine Culture - Final Escherichia coli ABG Data ABG results: ABG 05/21/25 05/21/25 09:30 15:31 Specimen Type ART LJ Sample Site L Radial L Radial pH 7.46 H Bicarbonate Actual 16.4 L Total CO2 17 Base Excess -7 L O2 Saturation 97 O2 % 100.0 60.0 ABG pCO2 22.8 L ABG pO2 79 Alcon Test Positive VBG pH 7.41 VBG pO2 23 L VBG HCO3 20 L VBG Total CO2 21 L VBG O2 Sat (Calc) 42 L VBG Base Excess -4 L POC Mix VBG pCO2 Pt Tmp 32.4 L Respiration Rate 16 O2 Delivery Device NRB Adult Vent Vent Mode Not entered Tidal Volume 450.0 POC PEEP 5 Radiography Diagnostic Testing: Radiology Impression Chest CTA 06/05/25 10:34 IMPRESSION: 1. No evidence of acute or chronic pulmonary embolus. Limitation of the segmental and subsegmental vessels in the lower lobes. 2. Cardiac enlargement. Coronary artery disease. 3. Bilateral interstitial and airspace opacities throughout both lungs. This is fairly extensive. Underlying pneumonia should be considered. 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 Reading Location: [facility] Physical Exam Const alert and no apparent distress General Appearance: cooperative HEENT normocephalic and head/scalp atraumatic Eyes PERRL, EOMs intact bilaterally and conjunctivae normal Neck supple General: trachea midline and CVC in place Chest inspection of chest normal Resp Auscultation: diminished lung sounds; Negative for rales, rhonchi or wheezes Cardio regular rate, regular rhythm, S1 normal heart sound and S2 normal heart sound GI normal to inspection, nondistended, normoactive bowel sounds Extremity General Extremity: edema; Negative for clubbing Skin no rashes or lesions noted Neuro CN's II-XII intact bilaterally Neuro Narrative: Contracted right-sided extremities. Psych Mood & Affect: flat affect Charges/Coding Visit Charges Inpatient E&M: 69736 Subs Hosp L2
--- NOTE | 2025-06-06 09:26 | PN.HOSP_ITS ---
Subjective Subjective Respiratory status is stable. Hemoglobin improved from 7.2 up to 7.6 Objective Data Objective Data Vital Signs: Vital Signs Temp Pulse Resp BP Pulse Ox O2 Del Method O2 Flow Rate 97.9 F 102 H 18 108/78 95 High Flow 6 06/06/25 09:09 06/06/25 09:14 06/06/25 09:09 06/06/25 09:14 06/06/25 09:15 06/06/25 09:15 06/06/25 09:15 FiO2 50 06/06/25 02:00 Oxygen Flow Rate (L/min) 6 Oxygen Delivery Method High Flow Weight: 181 lb 14.102 oz Body Mass Index (BMI) 30.2 Intake & Output: Intake and Output for Last 24 Hours 06/05/25 06/06/25 06/07/25 03:59 03:59 03:59 Intake Total 500 / 500 830 / 830 Output Total 1500 / 1500 820 / 820 500 / 500 Balance -1000 / -1000 -500 / -500 Lab / Micro Data 06/06/25 05:18 06/06/25 05:18 Labs: Laboratory Results - last 24 hr 06/05/25 04:57: [place] [address] H, Procalcitonin 0.29 H 06/06/25 05:18: WBC 8.1, RBC 3.40 L, Hgb 7.6 L, Hct 26.8 L, MCV 78.8 L, MCH 22.4 L, MCHC 28.4 L, RDW Std Deviation 71.7 H, RDW Coeff of Federico 27.6 H, Plt Count 453 H, MPV 10.0, Immature Gran % (Auto) 0.400, Neut % (Auto) 74.1 H, Lymph % (Auto) 13.3 L, [place] % (Auto) 9.2, Eos % (Auto) 2.3, Baso % (Auto) 0.7, Absolute Neuts (auto) 6.0, Absolute Lymphs (auto) 1.08, Nucleated RBC % 0, Differential Comment SCANNED, Platelet Estimate SLT INC, Polychromasia 1+, Anisocytosis 2+, Target Cells 1+, Ovalocytes 1+, Acanthocytes (Spur) 1+, Sodium 143, Potassium 3.9, Chloride 105, Carbon Dioxide 26.0, Anion Gap 12, BUN 44 H, Creatinine 1.75 H, E stim Creat Clear Calc 35.81 L, Est GFR (MDRD) Non-Af 33 L, BUN/Creatinine Ratio 25.3 H, Glucose 103 H, Calcium 8.2 Micro: Microbiology 05/29/25 10:00 Stool Enteric Bacteriology - Final 05/29/25 10:00 Stool Clostridioides difficile (PCR) - Final 05/21/25 15:15 Blood Culture (Wb) - Central Line Blood Culture - Final No growth in 5 days. 05/21/25 14:15 Sputum, Induced/Lukens Gram Stain - Final 05/21/25 14:15 Sputum, Induced/Lukens Respiratory Culture - Final 05/21/25 17:40 Urine Catheter - Fiore Urine Culture - Final Escherichia coli Radiography Diagnostic Testing: Radiology Impression Chest CTA 06/05/25 10:34 IMPRESSION: 1. No evidence of acute or chronic pulmonary embolus. Limitation of the segmental and subsegmental vessels in the lower lobes. 2. Cardiac enlargement. Coronary artery disease. 3. Bilateral interstitial and airspace opacities throughout both lungs. This is fairly extensive. Underlying pneumonia should be considered. 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 Reading Location: [facility] Physical Exam Narrative General: Alert, not really communicative HEENT: Atraumatic, PERRLA, EOMI, Normocephalic Oral: Moist Mucosa Neck: Supple, No JVD Lungs: Diminished, Normal air movement, No rhonchi, No wheeze, No rales Cardiovascular: Regular rate, Regular Rhythm, Normal S1, Normal S2, No murmurs Abdomen: Soft, Non Tender, Non-Distended, No Hepato-splenomegaly Extremities: Trace edema, Capillary Refill Less than 3 Seconds Skin: No rashes, No breakdown Musculoskeletal: No Tenderness to Palpation of Joints or Extremities Neurological: Chronic neurological changes with limited use of her right arm Psych/Mental Status: Flat Assessment & Plan Assessment/Plan (1) Hypernatremia: (2) Dysphagia: (3) (HFpEF) heart failure with preserved ejection fraction: (4) Acute blood loss anemia: (5) Atrial fibrillation with RVR: PLAN: Plan #Acute hypoxic respiratory failure * thought to be due to CHF and pneumonia * on zosyn. Was intubated and subsequently on 05/25/2025. * now down to 2L of oxygen. * Titrate oxygen to maintain sats above 90%. Breathing treatments with bronchodilators. * she completed a course of antibiotic 06/04/2025: Increased oxygen requirements today requiring BiPAP. Unclear as to what the etiology is however she does appear little bit volume overloaded so we will increase her Lasix dosing to IV twice daily 06/05/2025: Will attempt transfer to a tertiary care center at the request of family. In the meantime we will consult pulmonology for assistance. Will discontinue Lasix as her creatinine has increased again to 1.74 06/06/2025: Creatinine is 1.75 today. Oxygen requirements are down to 6 L nasal cannula. Awaiting transfer to [facility] #Acute on chronic HFpEF * EF is normal at 60%, and mild concentric LVH and apical hypertrophic cardiomyopathy present. * received IV lasix 40mg x 1. * pro BNP: 63634 * on 3L oxygen today. Titrate oxygen to maintain sats >90% * breathing treatment with bronchodilators. * She is in cumulative positive balance by 5.945L * On p.o. Lasix 06/04/2025: Continue with IV Lasix for diuresis 06/05/2025: Will discontinue Lasix secondary to rise in her creatinine #Atrial fibrillation with RVR * new diagnosis. not anticoagulated. * now on metoprolol. RVR has resolved. #Diarrhea * Enteric pathogen and C Diff screen negative. * diarrhea has largely resolved #Hypokalemia: Resolved K is 3.8. Will give PO potassium to keep K >4 #Acute blood loss anemia secondary to concern for uterine cancer * Initial Hb on admission was 3.6. * transfused with 4 units of PRBCs. * Hb today is 7.8 * received IV iron. On IV PPI * EGD showed non bleeding cratered duodenal ulcers and multiple linear gastric ulcers (nonbleeding) * iron studies showed iron deficiency. * transfuse to keep HB >7 * to have repeat EGD in 8-12 weeks to evaluate for healing of gastric ulcers and obtain biopsies. * Noted to have vaginal bleeding. Transvaginal ultrasound done showed endometrial thickening with clinical correlation recommended. Thickness noted to be abnormal for patient's postmenopausal state. * Gynecology reviewed patient and did a bedside endometrial biopsy. CA 129 and CEA antigens ordered per gynecology * Per Dr. More, she is concerned about cancer and if this is proven patient will be referred to [employer] oncologist in [place] on outpatient basis. * Ca 125 elevated at eight 7.4 although CEA antigen is normal at 1.3. Will need follow-up on outpatient basis with gynecology 06/04/2025: Hemoglobin appears stabilized at 7.8, will recheck in the morning. Will discuss with family about transfer given the severity of her potential uterine cancer with her continued bleeding as well as now her increased oxygen requirements and respiratory status. 06/05/2025: Hemoglobin is 7.2, this could indicate a recurrent bleed versus equalization versus just normal lab variance however given her recent history we will go ahead and provide her with a dose of Venofer and recheck hemoglobin in the morning pending transfer to a tertiary center #Nonsustained V. tach: * was on carvedilol but cardiology consulted and recommended discontinuing carvedilol and starting on metoprolol 50mg bid. Due to patient's low BP, was started on PO metoprolol 12.5mg bid. * Will increase to 25mg bid today. * to keep potassium >4 and magnesium >2. #Right ankle inversion * PT/OT worked with patient today and recommended ankle brace o/a of the right ankle inversion * PT/OT On board. fall precautions * case management to help facilitate getting a right ankle brace when they return tomorrow. #Dysphagia * speech therapy on board. * now on modified diet by speech therapy * Barium swallow showed moderate-severe oropharyngeal dysphagia #RAMEZ on CKD: Resolved. Cr is 1.30 today, which is around his baseline. 06/04/2025: Creatinine up to 1.49 today will continue to monitor in the setting of increasing her Lasix 06/05/2025: Creatinine is up to 1.74 today we will discontinue Lasix appreciate pulmonary's assistance 06/06/2025: Creatinine is 1.75 today will monitor #Hypernatremia: resolved. #History of stroke: not on anticoagulation or antiplatelets. s/p right sided hemiparesis. #Hypertension: on amlodipine, carvedilol and hydralazine which are on hold due to hypotension. Carvedilol resumed due to afib and nonsustained vtach. Carvedilol now switched to PO metoprolol per cardiology DVT: SCDs Charges/Coding Visit Charges Inpatient E&M: 54657 Subs Hosp L2
[2025-06-06] MEDS: Ensure Plus High Protein 120 ML LIQUID PO ×2 (12:37→17:41)
--- NOTE | 2025-06-06 17:04 | PN.OBGYN_ITS ---
Subjective Subjective Patient states minimal bleeding, pain controlled. Planning transfer to [facility]. Objective Data Objective Data Vital Signs: Vital Signs Temp Pulse Resp BP Pulse Ox O2 Del Method O2 Flow Rate 98 F 101 H 16 108/74 96 High Flow 6 06/06/25 15:15 06/06/25 15:15 06/06/25 15:15 06/06/25 15:15 06/06/25 15:15 06/06/25 15:15 06/06/25 15:15 FiO2 50 06/06/25 02:00 Oxygen Flow Rate (L/min) 6 Oxygen Delivery Method High Flow Weight: 181 lb 14.102 oz Body Mass Index (BMI) 30.2 Intake & Output: Intake and Output for Last 24 Hours 06/04/25 06/05/25 06/06/25 23:59 23:59 23:59 Intake Total 500 / 500 590 / 830 460 / 460 Output Total 2300 / 2300 620 / 820 1100 / 1100 Balance -1800 / -1800 -30 / 10 -640 / -640 Lab / Micro Data 06/07/25 05:06 06/07/25 05:06 Labs: Laboratory Results - last 24 hr 06/06/25 05:18: WBC 8.1, RBC 3.40 L, Hgb 7.6 L, Hct 26.8 L, MCV 78.8 L, MCH 22.4 L, MCHC 28.4 L, RDW Std Deviation 71.7 H, RDW Coeff of Federico 27.6 H, Plt Count 453 H, MPV 10.0, Immature Gran % (Auto) 0.400, Neut % (Auto) 74.1 H, Lymph % (Auto) 13.3 L, [place] % (Auto) 9.2, Eos % (Auto) 2.3, Baso % (Auto) 0.7, Absolute Neuts (auto) 6.0, Absolute Lymphs (auto) 1.08, Nucleated RBC % 0, Differential Comment SCANNED, Platelet Estimate SLT INC, Polychromasia 1+, Anisocytosis 2+, Target Cells 1+, Ovalocytes 1+, Acanthocytes (Spur) 1+, Sodium 143, Potassium 3.9, Chloride 105, Carbon Dioxide 26.0, Anion Gap 12, BUN 44 H, Creatinine 1.75 H, E stim Creat Clear Calc 35.81 L, Est GFR (MDRD) Non-Af 33 L, BUN/Creatinine Ratio 25.3 H, Glucose 103 H, Calcium 8.2 Micro: Microbiology 05/29/25 10:00 Stool Enteric Bacteriology - Final 05/29/25 10:00 Stool Clostridioides difficile (PCR) - Final 05/21/25 15:15 Blood Culture (Wb) - Central Line Blood Culture - Final No growth in 5 days. 05/21/25 14:15 Sputum, Induced/Lukens Gram Stain - Final 05/21/25 14:15 Sputum, Induced/Lukens Respiratory Culture - Final 05/21/25 17:40 Urine Catheter - Fiore Urine Culture - Final Escherichia coli Radiography Diagnostic Testing: Radiology Impression Transvaginal US 06/01/25 08:26 IMPRESSION: Endometrial thickening. Clinical correlation recommended. Reading Location: [facility] Chest X-Ray 06/02/25 04:00 IMPRESSION: Right internal jugular central catheter is in good position with its tip at the atriocaval junction. Minimal decrease in multifocal pulmonary congestion/infiltrates. Unchanged minimal left pleural effusion. Enlarged cardiac silhouette. Reading Location: [address] Constitutional Constitutional: Reports systems reviewed and no addt'l complaints, except as documented Cardiovascular Cardiovascular: Reports systems reviewed and no addt'l complaints, except as documented Respiratory/Chest Respiratory/Chest: Reports systems reviewed and no addt'l complaints, except as documented Gastrointestinal Gastrointestinal: Reports systems reviewed and no addt'l complaints, except as documented Physical Exam Const alert, oriented x3 and no apparent distress HEENT Head and Scalp: atraumatic Resp normal respiratory effort GI soft to palpation and non-tender Assessment & Plan (1) Postmenopausal bleeding: COMMENT: EMB done, needs polyp removed as OP also. await pathology to determine intervention. cea and ca125 done- ca125 significantly elevated which is suspicious for cancer. (2) Endometrial thickening on ultrasound: (3) Endometrial hyperplasia without atypia, complex: COMMENT: Areas suspicious for adenocarcinoma, recommend gynecology oncology consultation once she arrives at [facility]. Records sent to Dr. Wilman Iqbal group. (4) Atypical glandular cells of undetermined significance (BEST) on cervical Pap smear: COMMENT: Likely due to endometrial abnormalities PLAN: Plan Discussed with patient, mother, and brother. Endometrial hyperplasia with complex atypia and areas suspicious for adenocarcinoma seen on biopsy. Recommend gynecology oncology consultation once she is transported to [facility]. Discussed that she can follow-up with us as needed as an outpatient after she receives treatment from the survey engineer oncologist. Records are faxed to Dr. Milton Iqbal group in [facility]. Charges/Coding Visit Charges Inpatient E&M: 46173 Subs Hosp L3
[2025-06-07] VITALS (12 sets, daily range): BP systolic 119–137; BP diastolic 72–91; PULSE 80–94; RESP 12–30; TEMP 36.1–36.8; O2SAT 92–97; BMI 28.8
[2025-06-07 05:46] LABS: Hematocrit 25.3 % (37-47); Hemoglobin 7.1 g/dL (12.0-15.0); Immature Granulocytes Count 0.020 X10^3/uL (0.0-0.0); Mean Corp Hgb Conc 28.1 g/dL (32-36); Mean Corpuscular Volume 79.6 fL (81-99); Mean Platelet Vol. 10.1 fl (6.2-12.0); NRBC Flagged by Analyzer 0 % (0-5); POSITIVE MORPHOLOGY YES; Platelet Count 418 K/mm3 (150-450); RBC Distribution Width CV 27.1 % (11.6-14.6); RBC Distribution Width SD 73.0 fl (35.1-43.9); Red Blood Count 3.18 M/mm3 (4.2-5.4); White Blood Count 7.1 K/mm3 (4.4-11.0)
[2025-06-07 06:01] LABS: Differential Indicated SCAN CRITERIA MET
[2025-06-07 06:30] LABS: Magnesium 2.1 mg/dL (1.5-2.2)
[2025-06-07 06:53] LABS: Anion Gap 11 (5-15); BUN 46 mg/dL (4-19); BUN/Creat Ratio 26.4 RATIO (10-20); Calcium,Total 8.1 mg/dL (7.6-11.0); Carbon Dioxide 27.5 mmol/L (21.0-32.0); Chloride 105 mmol/L (98-108); Estimated Creatinine Clearance 35.20 ml/min (50-250); Glucose 85 mg/dL (70-99); Potassium 4.1 mmol/L (3.3-5.1)
[2025-06-07 07:16] LABS: Anisocytosis 2+
[2025-06-07] MEDS: 0.9% Saline Lock 10 ML Syringe IV ×2 (09:24→20:42)
[2025-06-07] MEDS: Pantoprazole Sodium 40 MG in 0.9% Normal Saline (100mL MB+) 100 ML 300 MG IV ×2 (09:24→20:45)
--- NOTE | 2025-06-07 10:16 | PN.HOSP_ITS ---
Subjective Subjective No major issues overnight, oxygen requirements are still variable this morning she was on 6 L nasal cannula. Hemoglobin is dropped again to 7.1. 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 Awaiting transfer to [facility] Objective Data Objective Data Vital Signs: Vital Signs Temp Pulse Resp BP Pulse Ox O2 Del Method O2 Flow Rate 98.0 F 94 20 H 137/82 H 97 Nasal Cannula 5 06/07/25 08:38 06/07/25 09:24 06/07/25 08:38 06/07/25 08:38 06/07/25 08:38 06/07/25 08:39 06/07/25 08:38 FiO2 50 06/07/25 01:04 Oxygen Flow Rate (L/min) 5 Oxygen Delivery Method Nasal Cannula Weight: 173 lb 8.061 oz Body Mass Index (BMI) 28.8 Intake & Output: Intake and Output for Last 24 Hours 06/06/25 06/07/25 06/08/25 03:59 03:59 03:59 Intake Total 830 / 830 880 / 880 120 / 120 Output Total 820 / 820 1900 / 1900 Balance -1020 / -1020 120 / 120 Lab / Micro Data 06/07/25 05:06 06/07/25 05:06 Labs: Laboratory Results - last 24 hr 06/07/25 05:06: WBC 7.1, RBC 3.18 L, Hgb 7.1 L, Hct 25.3 L, MCV 79.6 L, MCH 22.3 L, MCHC 28.1 L, RDW Std Deviation 73.0 H, RDW Coeff of Federico 27.1 H, Plt Count 418, MPV 10.1, Immature Gran % (Auto) 0.300, Neut % (Auto) 70.5 H, Lymph % (Auto) 16.6 L, Mcmullen % (Auto) 8.8, Eos % (Auto) 3.1, Baso % (Auto) 0.7, Absolute Neuts (auto) 5.0, Absolute Lymphs (auto) 1.18, Nucleated RBC % 0, Platelet Estimate ADEQUATE, Anisocytosis 2+, Ovalocytes 1+, Sodium 144, Potassium 4.1, Chloride 105, Carbon Dioxide 27.5, Anion Gap 11, BUN 46 H, Creatinine 1.74 H, E stim Creat Clear Calc 35.20 L, Est GFR (MDRD) Non-Af 33 L, BUN/Creatinine Ratio 26.4 H, Glucose 85, Calcium 8.1, Magnesium 2.1 Micro: Microbiology 05/29/25 10:00 Stool Enteric Bacteriology - Final 05/29/25 10:00 Stool Clostridioides difficile (PCR) - Final 05/21/25 15:15 Blood Culture (Wb) - Central Line Blood Culture - Final No growth in 5 days. 05/21/25 14:15 Sputum, Induced/Lukens Gram Stain - Final 05/21/25 14:15 Sputum, Induced/Lukens Respiratory Culture - Final 05/21/25 17:40 Urine Catheter - Fiore Urine Culture - Final Escherichia coli Physical Exam Narrative General: Alert, not really communicative HEENT: Atraumatic, PERRLA, EOMI, Normocephalic Oral: Moist Mucosa Neck: Supple, No JVD Lungs: Diminished, Normal air movement, No rhonchi, No wheeze, No rales Cardiovascular: Regular rate, Regular Rhythm, Normal S1, Normal S2, No murmurs Abdomen: Soft, Non Tender, Non-Distended, No Hepato-splenomegaly Extremities: Edema, Capillary Refill Less than 3 Seconds Skin: No rashes, No breakdown Musculoskeletal: No Tenderness to Palpation of Joints or Extremities Neurological: Chronic neurological changes with limited use of her right arm Psych/Mental Status: Normal affect, appears to be at her baseline Assessment & Plan Assessment/Plan (1) Hypernatremia: (2) Dysphagia: (3) (HFpEF) heart failure with preserved ejection fraction: (4) Acute blood loss anemia: (5) Atrial fibrillation with RVR: PLAN: Plan #Acute hypoxic respiratory failure * thought to be due to CHF and pneumonia * on zosyn. Was intubated and subsequently on 05/25/2025. * now down to 2L of oxygen. * Titrate oxygen to maintain sats above 90%. Breathing treatments with bronchodilators. * she completed a course of antibiotic 06/04/2025: Increased oxygen requirements today requiring BiPAP. Unclear as to what the etiology is however she does appear little bit volume overloaded so we will increase her Lasix dosing to IV twice daily 06/05/2025: Will attempt transfer to a tertiary care center at the request of family. In the meantime we will consult pulmonology for assistance. Will discontinue Lasix as her creatinine has increased again to 1.74 06/06/2025: Creatinine is 1.75 today. Oxygen requirements are down to 6 L nasal cannula. Awaiting transfer to [facility] 06/07/2025: Awaiting transfer. Creatinine has stabilized, we will trial her on daily IV dosing of Lasix to help improve her oxygen requirements. Will continue to encourage BiPAP use at night and with sleep #Acute on chronic HFpEF * EF is normal at 60%, and mild concentric LVH and apical hypertrophic cardiomyopathy present. * received IV lasix 40mg x 1. * pro BNP: 88339 * on 3L oxygen today. Titrate oxygen to maintain sats >90% * breathing treatment with bronchodilators. * She is in cumulative positive balance by 5.945L * On p.o. Lasix 06/04/2025: Continue with IV Lasix for diuresis 06/05/2025: Will discontinue Lasix secondary to rise in her creatinine 06/07/2025: Will resume daily Lasix monitor renal function #Atrial fibrillation with RVR * new diagnosis. not anticoagulated. * now on metoprolol. RVR has resolved. #Diarrhea * Enteric pathogen and C Diff screen negative. * diarrhea has largely resolved #Hypokalemia: Resolved K is 3.8. Will give PO potassium to keep K >4 #Acute blood loss anemia secondary to concern for uterine cancer * Initial Hb on admission was 3.6. * transfused with 4 units of PRBCs. * Hb today is 7.8 * received IV iron. On IV PPI * EGD showed non bleeding cratered duodenal ulcers and multiple linear gastric ulcers (nonbleeding) * iron studies showed iron deficiency. * transfuse to keep HB >7 * to have repeat EGD in 8-12 weeks to evaluate for healing of gastric ulcers and obtain biopsies. * Noted to have vaginal bleeding. Transvaginal ultrasound done showed endometrial thickening with clinical correlation recommended. Thickness noted to be abnormal for patient's postmenopausal state. * Gynecology reviewed patient and did a bedside endometrial biopsy. CA 129 and CEA antigens ordered per gynecology * Per Dr. More, she is concerned about cancer and if this is proven patient will be referred to [facility] oncologist in [place] on outpatient basis. * Ca 125 elevated at eight 7.4 although CEA antigen is normal at 1.3. Will need follow-up on outpatient basis with gynecology 06/04/2025: Hemoglobin appears stabilized at 7.8, will recheck in the morning. Will discuss with family about transfer given the severity of her potential uterine cancer with her continued bleeding as well as now her increased oxygen requirements and respiratory status. 06/05/2025: Hemoglobin is 7.2, this could indicate a recurrent bleed versus equalization versus just normal lab variance however given her recent history we will go ahead and provide her with a dose of Venofer and recheck hemoglobin in the morning pending transfer to a tertiary center 06/07/2025: Pathology with atypical hyperplasia and suspected adenocarcinoma, awaiting transfer to a higher level of care for possible surgical intervention given the fact that her hemoglobin continues to drop and is currently 7.1 #Nonsustained V. tach: * was on carvedilol but cardiology consulted and recommended discontinuing carvedilol and starting on metoprolol 50mg bid. Due to patient's low BP, was started on PO metoprolol 12.5mg bid. * Will increase to 25mg bid today. * to keep potassium >4 and magnesium >2. #Right ankle inversion * PT/OT worked with patient today and recommended ankle brace o/a of the right ankle inversion * PT/OT On board. fall precautions * case management to help facilitate getting a right ankle brace when they return tomorrow. #Dysphagia * speech therapy on board. * now on modified diet by speech therapy * Barium swallow showed moderate-severe oropharyngeal dysphagia #RAMEZ on CKD: Resolved. Cr is 1.30 today, which is around his baseline. 06/04/2025: Creatinine up to 1.49 today will continue to monitor in the setting of increasing her Lasix 06/05/2025: Creatinine is up to 1.74 today we will discontinue Lasix appreciate pulmonary's assistance 06/06/2025: Creatinine is 1.75 today will monitor #Hypernatremia: resolved. #History of stroke: not on anticoagulation or antiplatelets. s/p right sided hemiparesis. #Hypertension: on amlodipine, carvedilol and hydralazine which are on hold due to hypotension. Carvedilol resumed due to afib and nonsustained vtach. Carvedilol now switched to PO metoprolol per cardiology DVT: SCDs Charges/Coding Visit Charges Inpatient E&M: 16229 Subs Hosp L2
[2025-06-07 16:09] LABS: HPV APTIMA, High Risk Negative (Negative)
[2025-06-07] MEDS: Ensure Plus High Protein 120 ML LIQUID PO (16:47)
--- NOTE | 2025-06-07 21:30 | NURSING ---
[facility] staff spoke with RN for updates on patient, [facility] staff inquiring if patient should still be in ICU upon arrival
[2025-06-08] VITALS (14 sets, daily range): BP systolic 119–138; BP diastolic 74–94; PULSE 86–106; RESP 12–31; TEMP 36.1–37.1; O2SAT 89–96; BMI 28.9
--- NOTE | 2025-06-08 05:20 | NURSING ---
PRN tylenol given for c/o back pain, rates 5/10. Will continue to monitor
[2025-06-08 05:47] LABS: Hematocrit 25.4 % (37-47); Hemoglobin 7.2 g/dL (12.0-15.0); Immature Granulocytes Count 0.030 X10^3/uL (0.0-0.0); Mean Corp Hgb Conc 28.3 g/dL (32-36); Mean Corpuscular Volume 78.6 fL (81-99); Mean Platelet Vol. 10.0 fl (6.2-12.0); NRBC Flagged by Analyzer 0 % (0-5); POSITIVE MORPHOLOGY YES; Platelet Count 426 K/mm3 (150-450); RBC Distribution Width CV 27.3 % (11.6-14.6); RBC Distribution Width SD 72.1 fl (35.1-43.9); Red Blood Count 3.23 M/mm3 (4.2-5.4); White Blood Count 7.0 K/mm3 (4.4-11.0)
[2025-06-08 06:33] LABS: Anion Gap 12 (5-15); BUN 45 mg/dL (4-19); BUN/Creat Ratio 25.8 RATIO (10-20); Calcium,Total 8.0 mg/dL (7.6-11.0); Carbon Dioxide 25.7 mmol/L (21.0-32.0); Chloride 105 mmol/L (98-108); Estimated Creatinine Clearance 35.45 ml/min (50-250); Glucose 79 mg/dL (70-99); Potassium 4.0 mmol/L (3.3-5.1)
[2025-06-08 06:49] LABS: Differential Indicated SCAN CRITERIA MET
[2025-06-08 07:59] LABS: Anisocytosis 1+
[2025-06-08] MEDS: Pantoprazole Sodium 40 MG in 0.9% Normal Saline (100mL MB+) 100 ML 300 MG IV ×2 (09:36→21:17)
--- NOTE | 2025-06-08 10:40 | PN.HOSP_ITS ---
Subjective Subjective No issues overnight, maintaining her oxygen saturations on 5 to 6 L nasal cannula. Hemoglobin has stabilized to 7.2 will not transfuse Objective Data Objective Data Vital Signs: Vital Signs Temp Pulse Resp BP Pulse Ox O2 Del Method O2 Flow Rate 97.1 F L 94 18 127/76 H 94 Nasal Cannula 5 06/08/25 09:35 06/08/25 09:36 06/08/25 09:35 06/08/25 09:35 06/08/25 09:35 06/08/25 09:35 06/08/25 09:35 FiO2 50 06/07/25 22:45 Oxygen Flow Rate (L/min) 5 Oxygen Delivery Method Nasal Cannula Weight: 173 lb 15.115 oz Body Mass Index (BMI) 28.9 Intake & Output: Intake and Output for Last 24 Hours 06/07/25 06/08/25 06/09/25 03:59 03:59 03:59 Intake Total 880 / 880 720 / 720 120 / 120 Output Total 1900 / 1900 1050 / 1050 Balance -1020 / -1020 -330 / -330 120 / 120 Lab / Micro Data 06/08/25 04:41 06/08/25 04:41 Labs: Laboratory Results - last 24 hr 06/01/25 18:50: HPV High Risk Negative, Pap Specimen Adequacy Comment, Pap Smear Diagnosis Comment H, Pap Smear Comment Comment 06/01/25 18:50: Pap Smear Comment ., Pap Smear Note Comment, Pap Performed By Comment, Pap Signed Out By Comment, Pap Recommendation Comment H, Thin Prep Pap Smear Comment 06/08/25 04:41: WBC 7.0, RBC 3.23 L, Hgb 7.2 L, Hct 25.4 L, MCV 78.6 L, MCH 22.3 L, MCHC 28.3 L, RDW Std Deviation 72.1 H, RDW Coeff of Federico 27.3 H, Plt Count 426, MPV 10.0, Immature Gran % (Auto) 0.400, Neut % (Auto) 72.0 H, Lymph % (Auto) 15.3 L, Wetzel % (Auto) 9.5, Eos % (Auto) 2.1, Baso % (Auto) 0.7, Absolute Neuts (auto) 5.0, Absolute Lymphs (auto) 1.07, Nucleated RBC % 0, Anisocytosis 1+, Sodium 142, Potassium 4.0, Chloride 105, Carbon Dioxide 25.7, Anion Gap 12, BUN 45 H, Creatinine 1.73 H, Estim Creat Clear Calc 35.45 L, Est GFR (MDRD) Non- Af 33 L, BUN/Creatinine Ratio 25.8 H, Glucose 79, Calcium 8.0 Micro: Microbiology 05/29/25 10:00 Stool Enteric Bacteriology - Final 05/29/25 10:00 Stool Clostridioides difficile (PCR) - Final 05/21/25 15:15 Blood Culture (Wb) - Central Line Blood Culture - Final No growth in 5 days. 05/21/25 14:15 Sputum, Induced/Lukens Gram Stain - Final 05/21/25 14:15 Sputum, Induced/Lukens Respiratory Culture - Final 05/21/25 17:40 Urine Catheter - Fiore Urine Culture - Final Escherichia coli Physical Exam Narrative General: Alert, not really communicative HEENT: Atraumatic, PERRLA, EOMI, Normocephalic Oral: Moist Mucosa Neck: Supple, No JVD Lungs: Diminished, Normal air movement, No rhonchi, No wheeze, No rales Cardiovascular: Regular rate, Regular Rhythm, Normal S1, Normal S2, No murmurs Abdomen: Soft, Non Tender, Non-Distended, No Hepato-splenomegaly Extremities: Edema, Capillary Refill Less than 3 Seconds Skin: No rashes, No breakdown Musculoskeletal: No Tenderness to Palpation of Joints or Extremities Neurological: Chronic neurological changes with limited use of her right arm Psych/Mental Status: Normal affect, appears to be at her baseline Assessment & Plan Assessment/Plan (1) Hypernatremia: (2) Dysphagia: (3) (HFpEF) heart failure with preserved ejection fraction: (4) Acute blood loss anemia: (5) Atrial fibrillation with RVR: PLAN: Plan #Acute hypoxic respiratory failure * thought to be due to CHF and pneumonia * on zosyn. Was intubated and subsequently on 05/25/2025. * now down to 2L of oxygen. * Titrate oxygen to maintain sats above 90%. Breathing treatments with bronchodilators. * she completed a course of antibiotic 06/04/2025: Increased oxygen requirements today requiring BiPAP. Unclear as to what the etiology is however she does appear little bit volume overloaded so we will increase her Lasix dosing to IV twice daily 06/05/2025: Will attempt transfer to a tertiary care center at the request of family. In the meantime we will consult pulmonology for assistance. Will discontinue Lasix as her creatinine has increased again to 1.74 06/06/2025: Creatinine is 1.75 today. Oxygen requirements are down to 6 L nasal cannula. Awaiting transfer to [facility] 06/07/2025: Awaiting transfer. Creatinine has stabilized, we will trial her on daily IV dosing of Lasix to help improve her oxygen requirements. Will continue to encourage BiPAP use at night and with sleep 06/08/2025: Awaiting transfer #Acute on chronic HFpEF * EF is normal at 60%, and mild concentric LVH and apical hypertrophic cardiomyopathy present. * received IV lasix 40mg x 1. * pro BNP: 15219 * on 3L oxygen today. Titrate oxygen to maintain sats >90% * breathing treatment with bronchodilators. * She is in cumulative positive balance by 5.945L * On p.o. Lasix 06/04/2025: Continue with IV Lasix for diuresis 06/05/2025: Will discontinue Lasix secondary to rise in her creatinine 06/07/2025: Will resume daily Lasix monitor renal function #Atrial fibrillation with RVR * new diagnosis. not anticoagulated. * now on metoprolol. RVR has resolved. #Diarrhea * Enteric pathogen and C Diff screen negative. * diarrhea has largely resolved #Hypokalemia: Resolved K is 3.8. Will give PO potassium to keep K >4 #Acute blood loss anemia secondary to concern for uterine cancer * Initial Hb on admission was 3.6. * transfused with 4 units of PRBCs. * Hb today is 7.8 * received IV iron. On IV PPI * EGD showed non bleeding cratered duodenal ulcers and multiple linear gastric ulcers (nonbleeding) * iron studies showed iron deficiency. * transfuse to keep HB >7 * to have repeat EGD in 8-12 weeks to evaluate for healing of gastric ulcers and obtain biopsies. * Noted to have vaginal bleeding. Transvaginal ultrasound done showed endometrial thickening with clinical correlation recommended. Thickness noted to be abnormal for patient's postmenopausal state. * Gynecology reviewed patient and did a bedside endometrial biopsy. CA 129 and CEA antigens ordered per gynecology * Per Dr. More, she is concerned about cancer and if this is proven patient will be referred to [facility] oncologist in [place] on outpatient basis. * Ca 125 elevated at eight 7.4 although CEA antigen is normal at 1.3. Will need follow-up on outpatient basis with gynecology 06/04/2025: Hemoglobin appears stabilized at 7.8, will recheck in the morning. Will discuss with family about transfer given the severity of her potential uterine cancer with her continued bleeding as well as now her increased oxygen requirements and respiratory status. 06/05/2025: Hemoglobin is 7.2, this could indicate a recurrent bleed versus equalization versus just normal lab variance however given her recent history we will go ahead and provide her with a dose of Venofer and recheck hemoglobin in the morning pending transfer to a tertiary center 06/07/2025: Pathology with atypical hyperplasia and suspected adenocarcinoma, awaiting transfer to a higher level of care for possible surgical intervention given the fact that her hemoglobin continues to drop and is currently 7.1 06/08/2025: Hemoglobin 7.2 #Nonsustained V. tach: * was on carvedilol but cardiology consulted and recommended discontinuing carvedilol and starting on metoprolol 50mg bid. Due to patient's low BP, was started on PO metoprolol 12.5mg bid. * Will increase to 25mg bid today. * to keep potassium >4 and magnesium >2. #Right ankle inversion * PT/OT worked with patient today and recommended ankle brace o/a of the right ankle inversion * PT/OT On board. fall precautions * case management to help facilitate getting a right ankle brace when they return tomorrow. #Dysphagia * speech therapy on board. * now on modified diet by speech therapy * Barium swallow showed moderate-severe oropharyngeal dysphagia #RAMEZ on CKD: Resolved. Cr is 1.30 today, which is around his baseline. 06/04/2025: Creatinine up to 1.49 today will continue to monitor in the setting of increasing her Lasix 06/05/2025: Creatinine is up to 1.74 today we will discontinue Lasix appreciate pulmonary's assistance 06/06/2025: Creatinine is 1.75 today will monitor #Hypernatremia: resolved. #History of stroke: not on anticoagulation or antiplatelets. s/p right sided hemiparesis. #Hypertension: on amlodipine, carvedilol and hydralazine which are on hold due to hypotension. Carvedilol resumed due to afib and nonsustained vtach. Carvedilol now switched to PO metoprolol per cardiology DVT: SCDs Charges/Coding Visit Charges Inpatient E&M: 47072 Subs Hosp L1
[2025-06-08] MEDS: 0.9% Saline Lock 10 ML Syringe IV (21:18)
[2025-06-09] VITALS (10 sets, daily range): BP systolic 106–127; BP diastolic 74–85; PULSE 79–109; RESP 18–25; TEMP 36.3–37.1; O2SAT 92–96; BMI 30.7
[2025-06-09 06:15] LABS: Hematocrit 25.3 % (37-47); Hemoglobin 7.2 g/dL (12.0-15.0); Immature Granulocytes Count 0.020 X10^3/uL (0.0-0.0); Mean Corp Hgb Conc 28.5 g/dL (32-36); Mean Corpuscular Volume 79.1 fL (81-99); Mean Platelet Vol. 10.3 fl (6.2-12.0); NRBC Flagged by Analyzer 0 % (0-5); POSITIVE MORPHOLOGY YES; Platelet Count 432 K/mm3 (150-450); RBC Distribution Width CV 26.8 % (11.6-14.6); RBC Distribution Width SD 72.2 fl (35.1-43.9); Red Blood Count 3.20 M/mm3 (4.2-5.4); White Blood Count 6.2 K/mm3 (4.4-11.0)
[2025-06-09 06:31] LABS: Differential Indicated SCAN CRITERIA MET
[2025-06-09 06:50] LABS: Anisocytosis 1+; Hypochromasia 1+
[2025-06-09 06:53] LABS: Anion Gap 12 (5-15); BUN 43 mg/dL (4-19); BUN/Creat Ratio 23.4 RATIO (10-20); Calcium,Total 8.0 mg/dL (7.6-11.0); Carbon Dioxide 26.9 mmol/L (21.0-32.0); Chloride 104 mmol/L (98-108); Estimated Creatinine Clearance 34.16 ml/min (50-250); Glucose 89 mg/dL (70-99); Potassium 3.9 mmol/L (3.3-5.1)
--- NOTE | 2025-06-09 08:18 | NURSING ---
Called [facility] to check on bed status for pt - per [facility] no bed available
[2025-06-09] MEDS: Pantoprazole Sodium 40 MG in 0.9% Normal Saline (100mL MB+) 100 ML 300 MG IV ×2 (10:05→21:07)
[2025-06-09] MEDS: 0.9% Saline Lock 10 ML Syringe IV (10:06)
--- NOTE | 2025-06-09 11:28 | PN.HOSP_ITS ---
Subjective Subjective Oxygen requirements have stabilized at 5 L nasal cannula. Continue to wait for bed availability at tertiary center though if hemoglobin stabilizes and her respiratory status remains stable or improved could potentially discharge home Objective Data Objective Data Vital Signs: Vital Signs Temp Pulse Resp BP Pulse Ox O2 Del Method O2 Flow Rate 98.5 F 109 H 18 109/74 96 Nasal Cannula 3 06/09/25 08:00 06/09/25 10:04 06/09/25 08:00 06/09/25 10:04 06/09/25 08:00 06/09/25 09:53 06/09/25 09:53 FiO2 50 06/08/25 23:46 Oxygen Flow Rate (L/min) 3 Oxygen Delivery Method Nasal Cannula Weight: 184 lb 15.485 oz Body Mass Index (BMI) 30.7 Intake & Output: Intake and Output for Last 24 Hours 06/08/25 06/09/25 06/10/25 03:59 03:59 03:59 Intake Total 720 / 720 980 / 980 100 / 100 Output Total 1050 / 1050 1850 / 1850 150 / 150 Balance -330 / -330 -870 / -870 -50 / -50 Lab / Micro Data 06/09/25 05:20 06/09/25 05:20 Labs: Laboratory Results - last 24 hr 06/09/25 05:20: WBC 6.2, RBC 3.20 L, Hgb 7.2 L, Hct 25.3 L, MCV 79.1 L, MCH 22.5 L, MCHC 28.5 L, RDW Std Deviation 72.2 H, RDW Coeff of Federico 26.8 H, Plt Count 432, MPV 10.3, Immature Gran % (Auto) 0.300, Neut % (Auto) 68.0, Lymph % (Auto) 20.0, [place] % (Auto) 8.9, Eos % (Auto) 1.8, Baso % (Auto) 1.0, Absolute Neuts (auto) 4.2, Absolute Lymphs (auto) 1.23, Nucleated RBC % 0, Hypochromasia 1+, Anisocytosis 1+, Sodium 143, Potassium 3.9, Chloride 104, Carbon Dioxide 26.9, Anion Gap 12, BUN 43 H, Creatinine 1.85 H, Estim Creat Clear Calc 34.16 L, Est GFR (MDRD) Non-Af 31 L, BUN/Creatinine Ratio 23.4 H, Glucose 89, Calcium 8.0 Micro: Microbiology 05/29/25 10:00 Stool Enteric Bacteriology - Final 05/29/25 10:00 Stool Clostridioides difficile (PCR) - Final 05/21/25 15:15 Blood Culture (Wb) - Central Line Blood Culture - Final No growth in 5 days. 05/21/25 14:15 Sputum, Induced/Lukens Gram Stain - Final 05/21/25 14:15 Sputum, Induced/Lukens Respiratory Culture - Final 05/21/25 17:40 Urine Catheter - Fiore Urine Culture - Final Escherichia coli Physical Exam Narrative General: Alert, not really communicative HEENT: Atraumatic, PERRLA, EOMI, Normocephalic Oral: Moist Mucosa Neck: Supple, No JVD Lungs: Diminished, Normal air movement, No rhonchi, No wheeze, No rales Cardiovascular: Regular rate, Regular Rhythm, Normal S1, Normal S2, No murmurs Abdomen: Soft, Non Tender, Non-Distended, No Hepato-splenomegaly Extremities: Edema, Capillary Refill Less than 3 Seconds Skin: No rashes, No breakdown Musculoskeletal: No Tenderness to Palpation of Joints or Extremities Neurological: Chronic neurological changes with limited use of her right arm Psych/Mental Status: Normal affect, appears to be at her baseline Assessment & Plan Assessment/Plan (1) Hypernatremia: (2) Dysphagia: (3) (HFpEF) heart failure with preserved ejection fraction: (4) Acute blood loss anemia: (5) Atrial fibrillation with RVR: PLAN: Plan #Acute hypoxic respiratory failure * thought to be due to CHF and pneumonia * on zosyn. Was intubated and subsequently on 05/25/2025. * now down to 2L of oxygen. * Titrate oxygen to maintain sats above 90%. Breathing treatments with bronchodilators. * she completed a course of antibiotic 06/04/2025: Increased oxygen requirements today requiring BiPAP. Unclear as to what the etiology is however she does appear little bit volume overloaded so we will increase her Lasix dosing to IV twice daily 06/05/2025: Will attempt transfer to a tertiary care center at the request of family. In the meantime we will consult pulmonology for assistance. Will discontinue Lasix as her creatinine has increased again to 1.74 06/06/2025: Creatinine is 1.75 today. Oxygen requirements are down to 6 L nasal cannula. Awaiting transfer to [facility] 06/07/2025: Awaiting transfer. Creatinine has stabilized, we will trial her on daily IV dosing of Lasix to help improve her oxygen requirements. Will continue to encourage BiPAP use at night and with sleep 06/08/2025: Awaiting transfer 06/09/2025: Awaiting transfer #Acute on chronic HFpEF * EF is normal at 60%, and mild concentric LVH and apical hypertrophic cardiomyopathy present. * received IV lasix 40mg x 1. * pro BNP: 20010 * on 3L oxygen today. Titrate oxygen to maintain sats >90% * breathing treatment with bronchodilators. * She is in cumulative positive balance by 5.945L * On p.o. Lasix 06/04/2025: Continue with IV Lasix for diuresis 06/05/2025: Will discontinue Lasix secondary to rise in her creatinine 06/07/2025: Will resume daily Lasix monitor renal function 06/09/2025: Renal function has worsened to 1.85 if it continues to climb we will have to discontinue her Lasix #Atrial fibrillation with RVR * new diagnosis. not anticoagulated. * now on metoprolol. RVR has resolved. #Diarrhea * Enteric pathogen and C Diff screen negative. * diarrhea has largely resolved #Hypokalemia: Resolved K is 3.8. Will give PO potassium to keep K >4 #Acute blood loss anemia secondary to concern for uterine cancer * Initial Hb on admission was 3.6. * transfused with 4 units of PRBCs. * Hb today is 7.8 * received IV iron. On IV PPI * EGD showed non bleeding cratered duodenal ulcers and multiple linear gastric ulcers (nonbleeding) * iron studies showed iron deficiency. * transfuse to keep HB >7 * to have repeat EGD in 8-12 weeks to evaluate for healing of gastric ulcers and obtain biopsies. * Noted to have vaginal bleeding. Transvaginal ultrasound done showed endometrial thickening with clinical correlation recommended. Thickness noted to be abnormal for patient's postmenopausal state. * Gynecology reviewed patient and did a bedside endometrial biopsy. CA 129 and CEA antigens ordered per gynecology * Per Dr. More, she is concerned about cancer and if this is proven patient will be referred to [facility] oncologist in [place] on outpatient basis. * Ca 125 elevated at eight 7.4 although CEA antigen is normal at 1.3. Will need follow-up on outpatient basis with gynecology 06/04/2025: Hemoglobin appears stabilized at 7.8, will recheck in the morning. Will discuss with family about transfer given the severity of her potential uterine cancer with her continued bleeding as well as now her increased oxygen requirements and respiratory status. 06/05/2025: Hemoglobin is 7.2, this could indicate a recurrent bleed versus equalization versus just normal lab variance however given her recent history we will go ahead and provide her with a dose of Venofer and recheck hemoglobin in the morning pending transfer to a tertiary center 06/07/2025: Pathology with atypical hyperplasia and suspected adenocarcinoma, awaiting transfer to a higher level of care for possible surgical intervention given the fact that her hemoglobin continues to drop and is currently 7.1 06/08/2025: Hemoglobin 7.2 06/09/2025: Hemoglobin is 7.2, she is iron deficient will continue with another dose of Venofer today #Nonsustained V. tach: * was on carvedilol but cardiology consulted and recommended discontinuing carvedilol and starting on metoprolol 50mg bid. Due to patient's low BP, was started on PO metoprolol 12.5mg bid. * Will increase to 25mg bid today. * to keep potassium >4 and magnesium >2. #Right ankle inversion * PT/OT worked with patient today and recommended ankle brace o/a of the right ankle inversion * PT/OT On board. fall precautions * case management to help facilitate getting a right ankle brace when they return tomorrow. #Dysphagia * speech therapy on board. * now on modified diet by speech therapy * Barium swallow showed moderate-severe oropharyngeal dysphagia #RAMEZ on CKD: Resolved. Cr is 1.30 today, which is around his baseline. 06/04/2025: Creatinine up to 1.49 today will continue to monitor in the setting of increasing her Lasix 06/05/2025: Creatinine is up to 1.74 today we will discontinue Lasix appreciate pulmonary's assistance 06/06/2025: Creatinine is 1.75 today will monitor 06/09/2025: Creatinine today is 1.85 will monitor if it rises tomorrow will need to discontinue Lasix #Hypernatremia: resolved. #History of stroke: not on anticoagulation or antiplatelets. s/p right sided hemiparesis. #Hypertension: on amlodipine, carvedilol and hydralazine which are on hold due to hypotension. Carvedilol resumed due to afib and nonsustained vtach. Carvedilol now switched to PO metoprolol per cardiology DVT: SCDs Charges/Coding Visit Charges Inpatient E&M: 66117 Subs Hosp L2
[2025-06-09] MEDS: Sodium Ferric Gluconat/Sucrose 125 MG in 0.9% Normal Saline (100mL Bag) 100 ML 110 MG IV (11:55)
[2025-06-10] VITALS (7 sets, daily range): BP systolic 104–121; BP diastolic 63–80; PULSE 77–92; RESP 12–18; TEMP 36.6–36.8; O2SAT 92–95; BMI 28.6
[2025-06-10 03:30] LABS: Hematocrit 25.6 % (37-47); Hemoglobin 7.3 g/dL (12.0-15.0); Immature Granulocytes Count 0.040 X10^3/uL (0.0-0.0); Mean Corp Hgb Conc 28.5 g/dL (32-36); Mean Corpuscular Volume 79.3 fL (81-99); Mean Platelet Vol. 10.2 fl (6.2-12.0); NRBC Flagged by Analyzer 0 % (0-5); POSITIVE MORPHOLOGY YES; Platelet Count 441 K/mm3 (150-450); RBC Distribution Width CV 26.6 % (11.6-14.6); RBC Distribution Width SD 71.7 fl (35.1-43.9); Red Blood Count 3.23 M/mm3 (4.2-5.4); White Blood Count 6.8 K/mm3 (4.4-11.0)
[2025-06-10 03:37] LABS: Differential Indicated SCAN CRITERIA MET
[2025-06-10 03:53] LABS: Anion Gap 11 (5-15); BUN 44 mg/dL (4-19); BUN/Creat Ratio 25.1 RATIO (10-20); Calcium,Total 8.0 mg/dL (7.6-11.0); Carbon Dioxide 26.2 mmol/L (21.0-32.0); Chloride 102 mmol/L (98-108); Estimated Creatinine Clearance 35.08 ml/min (50-250); Glucose 95 mg/dL (70-99); Potassium 4.0 mmol/L (3.3-5.1)
[2025-06-10 04:19] LABS: Anisocytosis 2+; Hypochromasia 3+
[2025-06-10 04:58] LABS: Magnesium 2.1 mg/dL (1.5-2.2)
--- NOTE | 2025-06-10 07:42 | PN.HOSP_ITS ---
Reason for Visit Chief Complaint: altered level of consciousness. Objective Data Objective Data Vital Signs: Vital Signs Temp Pulse Resp BP Pulse Ox O2 Del Method O2 Flow Rate 97.9 F 77 18 104/63 92 Nasal Cannula 4 06/10/25 03:14 06/10/25 03:14 06/10/25 03:14 06/10/25 03:14 06/10/25 07:30 06/10/25 07:30 06/10/25 07:30 FiO2 50 06/10/25 00:27 Oxygen Flow Rate (L/min) 4 Oxygen Delivery Method Nasal Cannula Weight: 172 lb 2.896 oz Body Mass Index (BMI) 28.6 Intake & Output: Intake and Output for Last 24 Hours 06/08/25 06/09/25 06/10/25 23:59 23:59 23:59 Intake Total 1180 / 1180 670 / 870 200 / 200 Output Total 1500 / 1500 1550 / 1725 400 / 400 Balance -320 / -320 -880 / -855 -200 / -200 Lab / Micro Data 06/10/25 03:06 06/10/25 03:06 Labs: Laboratory Results - last 24 hr 06/10/25 03:06: WBC 6.8, RBC 3.23 L, Hgb 7.3 L, Hct 25.6 L, MCV 79.3 L, MCH 22.6 L, MCHC 28.5 L, RDW Std Deviation 71.7 H, RDW Coeff of Federico 26.6 H, Plt Count 441, MPV 10.2, Immature Gran % (Auto) 0.600, Neut % (Auto) 67.4, Lymph % (Auto) 20.9, [place] % (Auto) 8.1, Eos % (Auto) 2.1, Baso % (Auto) 0.9, Absolute Neuts (auto) 4.6, Absolute Lymphs (auto) 1.41, Nucleated RBC % 0, Hypochromasia 3+, Anisocytosis 2+, Sodium 139, Potassium 4.0, Chloride 102, Carbon Dioxide 26.2, Anion Gap 11, BUN 44 H, Creatinine 1.74 H, Estim Creat Clear Calc 35.08 L, Est GFR (MDRD) Non-Af 33 L, BUN/Creatinine Ratio 25.1 H, Glucose 95, Calcium 8.0, Phosphorus 3.6, Magnesium 2.1 Micro: Microbiology 05/29/25 10:00 Stool Enteric Bacteriology - Final 05/29/25 10:00 Stool Clostridioides difficile (PCR) - Final 05/21/25 15:15 Blood Culture (Wb) - Central Line Blood Culture - Final No growth in 5 days. 05/21/25 14:15 Sputum, Induced/Lukens Gram Stain - Final 05/21/25 14:15 Sputum, Induced/Lukens Respiratory Culture - Final 05/21/25 17:40 Urine Catheter - Fiore Urine Culture - Final Escherichia coli Physical Exam Narrative Seen and examined Patient on 3-4 l of oxygen. Heart rate controlled, sinus rhythm. Chronic right-sided weakness with contracture at right elbow and knee. She removed bowel yesterday. [facility] Physical exam General: Alert, Oriented x3, Cooperative. BMI 28.7 kg/m? HEENT: Atraumatic, PERRLA, EOMI, Normocephalic. Oral: No Gingival or Mucosal Lesions/ Ulcerations Neck: Supple, No JVD, Negative Carotid Bruits Chest wall/Lungs: Air entry diminished in bilateral lung bases. No crepitation/rhonchi Cardiovascular: Regular rate and rhythm, Normal S1,S2, No M/G/R Abdomen: Bowel Sounds Present, Soft, Non Tender, Non-Distended : No dysuria. No renal angle tenderness. No suprapubic tenderness. Extremities: Mild dependent edema, Capillary Refill Less than 3 Seconds Skin: No rashes, No breakdown Musculoskeletal: Contracture in right upper and lower extremity with chronic weakness. LLE 4/5 at left hip and knee joint. Neurological: Cranial nerves II-XII grossly intact, DTR 2+/4. No acute focal neurological deficit. Psych/Mental Status: Normal Affect, Appropriate. Assessment & Plan Assessment/Plan (1) Hypernatremia: (2) Dysphagia: (3) (HFpEF) heart failure with preserved ejection fraction: (4) Acute blood loss anemia: (5) Atrial fibrillation with RVR: PLAN: Plan 59-year-old female was admitted with very severe anemia, hemoglobin 3.6 but source of bleeding was found to be uterine cancer/endometrioid adenocarcinoma. Then hospital course upon complicated with acute hypoxic respiratory failure that required BiPAP then intubation diuresis and extubated. #Acute hypoxic respiratory failure * thought to be due to CHF and pneumonia * on zosyn. Was intubated and subsequently on 05/25/2025. * now down to 2L of oxygen. * Titrate oxygen to maintain sats above 90%. Breathing treatments with bronchodilators. * she completed a course of antibiotic 06/10: Vitals shows an pulse ox 95% on 3 L of oxygen. Blood pressure 121/80. BiPAP at night and during naps breathing on baseline. Awaiting transfer to [facility]. #Acute on chronic HFpEF * EF is normal at 60%, and mild concentric LVH and apical hypertrophic cardiomyopathy present. * received IV lasix 40mg x 1. * pro BNP: 63588 * on 3L oxygen today. Titrate oxygen to maintain sats >90% * breathing treatment with bronchodilators. * She is in cumulative positive balance by 5.945L * On p.o. Lasix 06/10: Kidney function shows elevation of creatinine between 1.73-1.85 depending upon the fluid hemodynamics. Today 1.7/35.08. Continue with IV Lasix for diuresis. Furosemide 40 mg IV daily continued. Monitor kidney function. #Atrial fibrillation with RVR * new diagnosis. not anticoagulated. * now on metoprolol. RVR has resolved. #Diarrhea * Enteric pathogen and C Diff screen negative. * diarrhea has largely resolved #Hypokalemia: Resolved K is 3.8. Will give PO potassium to keep K >4 #Acute blood loss anemia secondary to concern for uterine cancer * Initial Hb on admission was 3.6. * transfused with 4 units of PRBCs. * Hb today is 7.8 * received IV iron. On IV PPI * EGD showed non bleeding cratered duodenal ulcers and multiple linear gastric ulcers (nonbleeding) * iron studies showed iron deficiency. * transfuse to keep HB >7 * to have repeat EGD in 8-12 weeks to evaluate for healing of gastric ulcers and obtain biopsies. * Noted to have vaginal bleeding. Transvaginal ultrasound done showed endometrial thickening with clinical correlation recommended. Thickness noted to be abnormal for patient's postmenopausal state. * Gynecology reviewed patient and did a bedside endometrial biopsy. CA 129 and CEA antigens ordered per gynecology * Per Dr. More, she is concerned about cancer and if this is proven patient will be referred to [facility] [employer] oncologist in [place] on outpatient basis. * Ca 125 elevated at eight 7.4 although CEA antigen is normal at 1.3. Will need follow-up on outpatient basis with gynecology 06/10: As mentioned above endometrial pathology came back as atypical hyperplasia and suspicion endometrioid adenocarcinoma. Dr. 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 H&H 7.3/25.6%. Platelet count 400 41K. WBC count normal. Patient not on antiplatelet/anticoagulant agent #Nonsustained V. tach: * was on carvedilol but cardiology consulted and recommended discontinuing carvedilol and starting on metoprolol 50mg bid. Due to patient's low BP, was started on PO metoprolol 12.5mg bid. * Will increase to 25mg bid today. * to keep potassium >4 and magnesium >2. #Right ankle inversion * PT/OT worked with patient today and recommended ankle brace o/a of the right ankle inversion * PT/OT On board. fall precautions * case management to help facilitate getting a right ankle brace when they return tomorrow. #Dysphagia * speech therapy on board. * now on modified diet by speech therapy * Barium swallow showed moderate-severe oropharyngeal dysphagia #RAMEZ on CKD: Resolved. Cr is 1.30 today, which is around his baseline. Creatinine is variable depending upon the fluid hemodynamics. Today creatinine 1.7. #Hypernatremia: resolved. #History of stroke: not on anticoagulation or antiplatelets. s/p right sided hemiparesis. #Hypertension: on amlodipine, carvedilol and hydralazine which are on hold due to hypotension. Carvedilol resumed due to afib and nonsustained vtach. Carvedilol now switched to PO metoprolol per cardiology DVT: SCDs Charges/Coding Visit Charges Inpatient E&M: 07921 Subs Hosp L2
[2025-06-10] MEDS: Pantoprazole Sodium 40 MG in 0.9% Normal Saline (100mL MB+) 100 ML 300 MG IV ×2 (09:03→21:14)
--- NOTE | 2025-06-10 09:48 | NURSING ---
phone call to [facility] - per [facility] pt is still on the list for a bed, no beds at this time
[2025-06-10] MEDS: 0.9% Saline Lock 10 ML Syringe IV (21:14)
[2025-06-11] VITALS (8 sets, daily range): BP systolic 116–143; BP diastolic 75–96; PULSE 80–107; RESP 18–20; TEMP 36.3–36.6; O2SAT 92–96; BMI 29.0
[2025-06-11 05:40] LABS: Hematocrit 26.0 % (37-47); Hemoglobin 7.4 g/dL (12.0-15.0); Immature Granulocytes Count 0.060 X10^3/uL (0.0-0.0); Mean Corp Hgb Conc 28.5 g/dL (32-36); Mean Corpuscular Volume 79.3 fL (81-99); Mean Platelet Vol. 10.2 fl (6.2-12.0); NRBC Flagged by Analyzer 0 % (0-5); POSITIVE MORPHOLOGY YES; Platelet Count 462 K/mm3 (150-450); RBC Distribution Width CV 26.5 % (11.6-14.6); RBC Distribution Width SD 71.8 fl (35.1-43.9); Red Blood Count 3.28 M/mm3 (4.2-5.4); White Blood Count 7.2 K/mm3 (4.4-11.0)
[2025-06-11 05:41] LABS: Differential Indicated SCAN CRITERIA MET
[2025-06-11 06:07] LABS: Anion Gap 11 (5-15); BUN 38 mg/dL (4-19); BUN/Creat Ratio 23.9 RATIO (10-20); Calcium,Total 8.1 mg/dL (7.6-11.0); Carbon Dioxide 27.9 mmol/L (21.0-32.0); Chloride 101 mmol/L (98-108); Estimated Creatinine Clearance 39.09 ml/min (50-250); Glucose 92 mg/dL (70-99); Potassium 3.9 mmol/L (3.3-5.1)
[2025-06-11 06:11] LABS: Anisocytosis 2+; Differential Comment SCANNED; Hypochromasia 1+
--- NOTE | 2025-06-11 06:16 | CPS ---
Pt refused bipap tonight
[2025-06-11] MEDS: 0.9% Saline Lock 10 ML Syringe IV (09:27)
[2025-06-11] MEDS: Pantoprazole Sodium 40 MG in 0.9% Normal Saline (100mL MB+) 100 ML 300 MG IV (09:28)
--- NOTE | 2025-06-11 11:48 | PN.HOSP_ITS ---
Reason for Visit Chief Complaint: altered level of consciousness. Objective Data Objective Data Vital Signs: Vital Signs Temp Pulse Resp BP Pulse Ox O2 Del Method O2 Flow Rate 97.4 F L 83 18 128/92 H 92 Nasal Cannula 4 06/11/25 08:30 06/11/25 09:27 06/11/25 08:30 06/11/25 09:27 06/11/25 09:23 06/11/25 09:23 06/11/25 09:23 FiO2 50 06/10/25 00:27 Oxygen Flow Rate (L/min) 4 Oxygen Delivery Method Nasal Cannula Weight: 174 lb 2.643 oz Body Mass Index (BMI) 29.0 Intake & Output: Intake and Output for Last 24 Hours 06/09/25 06/10/25 06/11/25 23:59 23:59 23:59 Intake Total 670 / 870 880 / 880 340 / 340 Output Total 1550 / 1725 750 / 1000 1350 / 1350 Balance -880 / -855 130 / -120 -1010 / -1010 Lab / Micro Data 06/11/25 04:44 06/11/25 04:44 Labs: Laboratory Results - last 24 hr 06/11/25 04:44: WBC 7.2, RBC 3.28 L, Hgb 7.4 L, Hct 26.0 L, MCV 79.3 L, MCH 22.6 L, MCHC 28.5 L, RDW Std Deviation 71.8 H, RDW Coeff of Federico 26.5 H, Plt Count 462 H, MPV 10.2, Immature Gran % (Auto) 0.800, Neut % (Auto) 68.7, Lymph % (Auto) 18.7 L, [place] % (Auto) 8.6, Eos % (Auto) 2.5, Baso % (Auto) 0.7, Absolute Neuts (auto) 4.9, Absolute Lymphs (auto) 1.34, Nucleated RBC % 0, Differential Comment SCANNED, Hypochromasia 1+, Anisocytosis 2+, Sodium 139, Potassium 3.9, Chloride 101, Carbon Dioxide 27.9, Anion Gap 11, BUN 38 H, Creatinine 1.57 H, Estim Creat Clear Calc 39.09 L, Est GFR (MDRD) Non-Af 37 L, BUN/Creatinine Ratio 23.9 H, Glucose 92, Calcium 8.1 Micro: Microbiology 05/29/25 10:00 Stool Enteric Bacteriology - Final 05/29/25 10:00 Stool Clostridioides difficile (PCR) - Final 05/21/25 15:15 Blood Culture (Wb) - Central Line Blood Culture - Final No growth in 5 days. 05/21/25 14:15 Sputum, Induced/Lukens Gram Stain - Final 05/21/25 14:15 Sputum, Induced/Lukens Respiratory Culture - Final 05/21/25 17:40 Urine Catheter - Fiore Urine Culture - Final Escherichia coli Physical Exam Narrative Seen and examined Patient on 3-4 l of oxygen. Heart rate controlled, sinus rhythm. Chronic right-sided weakness with contracture at right elbow and knee. She removed bowel yesterday. Waiting for bed at [facility] Physical exam General: Alert, Oriented x3, Cooperative. BMI 28.7 kg/m? HEENT: Atraumatic, PERRLA, EOMI, Normocephalic. Oral: No Gingival or Mucosal Lesions/ Ulcerations Neck: Supple, No JVD, Negative Carotid Bruits Chest wall/Lungs: Air entry diminished in bilateral lung bases. No crepitation/rhonchi Cardiovascular: Regular rate and rhythm, Normal S1,S2, No M/G/R Abdomen: Bowel Sounds Present, Soft, Non Tender, Non-Distended : No dysuria. No renal angle tenderness. No suprapubic tenderness. Extremities: Mild dependent edema, Capillary Refill Less than 3 Seconds Skin: No rashes, No breakdown Musculoskeletal: Contracture in right upper and lower extremity with chronic weakness. LLE 4/5 at left hip and knee joint. Neurological: Cranial nerves II-XII grossly intact, DTR 2+/4. No acute focal neurological deficit. Psych/Mental Status: Normal Affect, Appropriate. Assessment & Plan Assessment/Plan (1) Hypernatremia: (2) Dysphagia: (3) (HFpEF) heart failure with preserved ejection fraction: (4) Acute blood loss anemia: (5) Atrial fibrillation with RVR: PLAN: Plan 59-year-old female was admitted with very severe anemia, hemoglobin 3.6 but source of bleeding was found to be uterine cancer/endometrioid adenocarcinoma. Then hospital course upon complicated with acute hypoxic respiratory failure that required BiPAP then intubation diuresis and extubated. #Acute hypoxic respiratory failure * thought to be due to CHF and pneumonia * on zosyn. Was intubated and subsequently on 05/25/2025. * now down to 2L of oxygen. * Titrate oxygen to maintain sats above 90%. Breathing treatments with bronchodilators. * she completed a course of antibiotic 06/10: Vitals shows an pulse ox 95% on 3 L of oxygen. Blood pressure 121/80. BiPAP at night and during naps breathing on baseline. [facility] 06/11: Hemodynamically, she is in a better condition. I talked to the patient's brother on the phone, gave clinical update. She is still awaiting transfer to [facility] but I do not think she needs to go there may be follow-up as an outpatient for subspecialist care. Discussed with the nursing staff for discharge planning #Acute on chronic HFpEF * EF is normal at 60%, and mild concentric LVH and apical hypertrophic cardiomyopathy present. * received IV lasix 40mg x 1. * pro BNP: 80194 * on 3L oxygen today. Titrate oxygen to maintain sats >90% * breathing treatment with bronchodilators. * She is in cumulative positive balance by 5.945L * On p.o. Lasix 06/10: Kidney function shows elevation of creatinine between 1.73-1.85 depending upon the fluid hemodynamics. Today 1.7/35.08. Continue with IV Lasix for diuresis. Furosemide 40 mg IV daily continued. Monitor kidney function. 06/11: Continue Lasix. Creatinine improving. #Atrial fibrillation with RVR * new diagnosis. not anticoagulated. * now on metoprolol. RVR has resolved. #Diarrhea * Enteric pathogen and C Diff screen negative. * diarrhea has largely resolved #Hypokalemia: Resolved K is 3.8. Will give PO potassium to keep K >4 #Acute blood loss anemia secondary to concern for uterine cancer * Initial Hb on admission was 3.6. * transfused with 4 units of PRBCs. * Hb today is 7.8 * received IV iron. On IV PPI * EGD showed non bleeding cratered duodenal ulcers and multiple linear gastric ulcers (nonbleeding) * iron studies showed iron deficiency. * transfuse to keep HB >7 * to have repeat EGD in 8-12 weeks to evaluate for healing of gastric ulcers and obtain biopsies. * Noted to have vaginal bleeding. Transvaginal ultrasound done showed endometrial thickening with clinical correlation recommended. Thickness noted to be abnormal for patient's postmenopausal state. * Gynecology reviewed patient and did a bedside endometrial biopsy. CA 129 and CEA antigens ordered per gynecology * Per Dr. More, she is concerned about cancer and if this is proven patient will be referred to [employer] [employer] oncologist in [place] on outpatient basis. * Ca 125 elevated at eight 7.4 although CEA antigen is normal at 1.3. Will need follow-up on outpatient basis with gynecology 06/10: As mentioned above endometrial pathology came back as atypical hyperplasia and suspicion endometrioid adenocarcinoma. Dr. 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 H&H 7.3/25.6%. Platelet count 400 41K. WBC count normal. Patient not on antiplatelet/anticoagulant agent 06/11: Hemoglobin above 7 g, still between 7-8 #Nonsustained V. tach: * was on carvedilol but cardiology consulted and recommended discontinuing carvedilol and starting on metoprolol 50mg bid. Due to patient's low BP, was started on PO metoprolol 12.5mg bid. * Will increase to 25mg bid today. * to keep potassium >4 and magnesium >2. #Right ankle inversion * PT/OT worked with patient today and recommended ankle brace o/a of the right ankle inversion * PT/OT On board. fall precautions * case management to help facilitate getting a right ankle brace when they return tomorrow. #Dysphagia * speech therapy on board. * now on modified diet by speech therapy * Barium swallow showed moderate-severe oropharyngeal dysphagia 06/11: Needs feeding by 8. #RAMEZ on CKD: Resolved. Cr is 1.30 today, which is around his baseline. Creatinine is variable depending upon the fluid hemodynamics. Today creatinine 1.7. #Hypernatremia: resolved. #History of stroke: not on anticoagulation or antiplatelets. s/p right sided hemiparesis. #Hypertension: on amlodipine, carvedilol and hydralazine which are on hold due to hypotension. Carvedilol resumed due to afib and nonsustained vtach. Carvedilol now switched to PO metoprolol per cardiology DVT: SCDs Charges/Coding Visit Charges Inpatient E&M: 79445 Subs Hosp L2
--- NOTE | 2025-06-11 12:39 | CASEMGMT ---
Addendum entered by Walker Contreras 06/11/25 16:04: Requested community development director to call to set up transportation for the pt. financial secretary states that she recently got off the phone with [facility] who states that they do not have a bed available any longer and that they hope to have a bed tonight or tomorrow. RN CM to the pt room at this time and updated the pt's brother. Hospitalist updated as well. CM to continue to follow. Original Note: Dr Shelton states that he anticipates the pt to be medically ready for DC in a couple of days if [facility] is unable to accept d/t bed availability. However, [facility] calls [facility] and reports that they are able to accept the pt today as they have a bed available. Dr Shelton notified and is now on the phone with the transfer line. Pt's mother and brother notified that the plan is to DC to the tertiary facility today.
--- NOTE | 2025-06-11 13:35 | DS.PCM_ITS ---
Providers Date of Admission: 05/21/25 Date of Discharge: 06/11/25 Primary Care Physician: Dr. Ann Marie Duran, Consultations 05/21/25 12:35 Consult: Gastroenterology Routine Consulting Provider: [facility] Reason for Consult: anemia EMERGENT Consult: No Notified: Yes Date Notified: 05/21/25 Time Notified: 11:42 Method of Notification: Text 05/21/25 13:20 Consult: Fabric Cutter / Pulmonary Medicine Routine Consulting Provider: Intensivists/Pulmonary Med Reason for Consult: shock, anemia, hypoxia EMERGENT Consult: No Notified: Yes Date Notified: 05/21/25 Time Notified: 13:25 Method of Notification: Verbal 06/01/25 13:17 Consult: ELECTRICIAN CHIEF Routine Consulting Provider: Eloisa More Reason for Consult: vaginal bleeding; transvaginal USG showed thickened endometrium of 21.4mm EMERGENT Consult: No Notified: Yes Date Notified: 06/01/25 Time Notified: 13:18 Method of Notification: Text 06/02/25 08:39 Consult: Cardiology Routine Consulting Provider: Puja Almeida Reason for Consult: recurrent nonsustained vtach EMERGENT Consult: No MD Notified: Yes Date Notified: 06/02/25 Time Notified: 08:39 Method of Notification: Text Reason For Visit: SHOCK Diagnosis Discharge Diagnosis (1) Hypernatremia: Status: Acute Code(s): E87.0 - Hyperosmolality and hypernatremia (2) Dysphagia: Status: Acute Code(s): R13.10 - Dysphagia, unspecified (3) (HFpEF) heart failure with preserved ejection fraction: Status: Acute Code(s): I50.30 - Unspecified diastolic (congestive) heart failure (4) Acute blood loss anemia: Status: Acute Code(s): D62 - Acute posthemorrhagic anemia (5) Atrial fibrillation with RVR: Status: Acute Code(s): I48.91 - Unspecified atrial fibrillation Plan 59-year-old female was admitted with very severe anemia, hemoglobin 3.6 but source of bleeding was found to be uterine cancer/endometrioid adenocarcinoma. Then hospital course upon complicated with acute hypoxic respiratory failure that required BiPAP then intubation diuresis and extubated. #Acute hypoxic respiratory failure * thought to be due to CHF and pneumonia * on zosyn. Was intubated and subsequently on 05/25/2025. * now down to 2L of oxygen. * Titrate oxygen to maintain sats above 90%. Breathing treatments with bronchodilators. * she completed a course of antibiotic 06/10: Vitals shows an pulse ox 95% on 3 L of oxygen. Blood pressure 121/80. BiPAP at night and during naps breathing on baseline. Awaiting transfer to [facility]. 06/11: Hemodynamically, she is in a better condition. I talked to the patient's brother on the phone, gave clinical update. She is still awaiting transfer to [facility]. Her brother was concerned of severe anemia and wants to be transferred to tertiary care for evaluation of endometrial cancer as the endometrial biopsy reported atypical hyperplasia with endometrioid adenocarcinoma. I talked to the hospitalist colleague in [facility] and gave the clinical update. Patient is still severely anemic hemoglobin 7.2 therefore requires definitive treatment otherwise high chances of readmission. She will be transferred to [facility] sometime in the evening today. #Acute on chronic HFpEF * EF is normal at 60%, and mild concentric LVH and apical hypertrophic cardiomyopathy present. * received IV lasix 40mg x 1. * pro BNP: 84512 * on 3L oxygen today. Titrate oxygen to maintain sats >90% * breathing treatment with bronchodilators. * She is in cumulative positive balance by 5.945L * On p.o. Lasix 06/10: Kidney function shows elevation of creatinine between 1.73-1.85 depending upon the fluid hemodynamics. Today 1.7/35.08. Continue with IV Lasix for diuresis. Furosemide 40 mg IV daily continued. Monitor kidney function. 06/11: Continue Lasix. Creatinine improving. #Atrial fibrillation with RVR * new diagnosis. not anticoagulated. * now on metoprolol. RVR has resolved. #Diarrhea * Enteric pathogen and C Diff screen negative. * diarrhea has largely resolved #Hypokalemia: Resolved K is 3.8. Will give PO potassium to keep K >4 #Acute blood loss anemia secondary to concern for uterine cancer * Initial Hb on admission was 3.6. * transfused with 4 units of PRBCs. * Hb today is 7.8 * received IV iron. On IV PPI * EGD showed non bleeding cratered duodenal ulcers and multiple linear gastric ulcers (nonbleeding) * iron studies showed iron deficiency. * transfuse to keep HB >7 * to have repeat EGD in 8-12 weeks to evaluate for healing of gastric ulcers and obtain biopsies. * Noted to have vaginal bleeding. Transvaginal ultrasound done showed endometrial thickening with clinical correlation recommended. Thickness noted to be abnormal for patient's postmenopausal state. * Gynecology reviewed patient and did a bedside endometrial biopsy. CA 129 and CEA antigens ordered per gynecology * Per Dr. More, she is concerned about cancer and if this is proven patient will be referred to [facility] oncologist in [place] on outpatient basis. * Ca 125 elevated at eight 7.4 although CEA antigen is normal at 1.3. Will need follow-up on outpatient basis with gynecology 06/10: As mentioned above endometrial pathology came back as atypical hyperplasia and suspicion endometrioid adenocarcinoma. Dr. Ned Sarkar recommended follow- up with tertiary care out and out cigar maker hand oncologist. H&H 7.3/25.6%. Platelet count 400 41K. WBC count normal. Patient not on antiplatelet/anticoagulant agent 06/11: Hemoglobin above 7 g, still between 7-8 #Nonsustained V. tach: * was on carvedilol but cardiology consulted and recommended discontinuing carvedilol and starting on metoprolol 50mg bid. Due to patient's low BP, was started on PO metoprolol 12.5mg bid. * Will increase to 25mg bid today. * to keep potassium >4 and magnesium >2. #Right ankle inversion * PT/OT worked with patient today and recommended ankle brace o/a of the right ankle inversion * PT/OT On board. fall precautions * case management to help facilitate getting a right ankle brace when they return tomorrow. #Dysphagia * speech therapy on board. * now on modified diet by speech therapy * Barium swallow showed moderate-severe oropharyngeal dysphagia 06/11: Needs feeding by 8. #RAMEZ on CKD: Resolved. Cr is 1.30 today, which is around his baseline. Creatinine is variable depending upon the fluid hemodynamics. Today creatinine 1.7. #Hypernatremia: resolved. #History of stroke: not on anticoagulation or antiplatelets. s/p right sided hemiparesis. #Hypertension: on amlodipine, carvedilol and hydralazine which are on hold due to hypotension. Carvedilol resumed due to afib and nonsustained vtach. Carvedilol now switched to PO metoprolol per cardiology DVT: SCDs Patient is being transferred to [facility]. Transfer formalities including paper signed Total time spent, exact 35 minutes on discharge meds reconciliation, examination, coordination of care with nurses and ancillary staff, review of imaging and blood test and discussion with the patient on follow-up instructions. Medications at Discharge Home Medications amlodipine 10 mg tablet 10 mg PO DAILY 05/21/25 carvedilol 3.125 mg tablet 3.125 mg PO BID 05/21/25 hydralazine 100 mg tablet 100 mg PO TID 05/21/25 simvastatin 20 mg tablet 20 mg PO DAILY 05/21/25 Physical Exam Narrative Please see the progress note on the same date. I talked to the patient's brother over the phone. Weight / BMI Weight Weight: 174 lb 2.643 oz Body Mass Index (BMI) 29.0 ABG / Lab / Microbiology Data 06/11/25 04:44 06/11/25 04:44 Laboratory: Laboratory Results - last 24 hr 06/11/25 04:44: WBC 7.2, RBC 3.28 L, Hgb 7.4 L, Hct 26.0 L, MCV 79.3 L, MCH 22.6 L, MCHC 28.5 L, RDW Std Deviation 71.8 H, RDW Coeff of Federico 26.5 H, Plt Count 462 H, MPV 10.2, Immature Gran % (Auto) 0.800, Neut % (Auto) 68.7, Lymph % (Auto) 18.7 L, [place] % (Auto) 8.6, Eos % (Auto) 2.5, Baso % (Auto) 0.7, Absolute Neuts (auto) 4.9, Absolute Lymphs (auto) 1.34, Nucleated RBC % 0, Differential Comment SCANNED, Hypochromasia 1+, Anisocytosis 2+, Sodium 139, Potassium 3.9, Chloride 101, Carbon Dioxide 27.9, Anion Gap 11, BUN 38 H, Creatinine 1.57 H, Estim Creat Clear Calc 39.09 L, Est GFR (MDRD) Non-Af 37 L, BUN/Creatinine Ratio 23.9 H, Glucose 92, Calcium 8.1 Microbiology: Microbiology 05/29/25 10:00 Stool Enteric Bacteriology - Final 05/29/25 10:00 Stool Clostridioides difficile (PCR) - Final 05/21/25 15:15 Blood Culture (Wb) - Central Line Blood Culture - Final No growth in 5 days. 05/21/25 14:15 Sputum, Induced/[place]ukens Gram Stain - Final 05/21/25 14:15 Sputum, Induced/Lukens Respiratory Culture - Final 05/21/25 17:40 Urine Catheter - [place] Urine Culture - Final Escherichia coli D/C Instructions DC O2, CPAP, BIPAP Needs Home O2 Discharge instructions: Yes Type of respiratory needs?: Oxygen Oxygen frequency: Continuous Continuous oxygen liters per minute: 2 DC home with Oxygen: Yes Home O2 MD Review: I have reviewed the oxygen testing, and the patient qualifies for home oxygen equipment and portability. The patient is mobile in the home and the community. Meaningful Use Info Meaningful Use Meaningful Use Diagnoses (Choose all that apply): None applicable Discharge Plan Admission Admit Date/Time: 05/21/25 11:37 Attending Provider: Ziggy Shelton Primary Care Provider: Ann Marie Duran Consulting Providers: Ziggy Shelton; Jeffery Mcrae; Swetha Asif; Nayely Sarkar; Mayra Mejía; Saul Brooks; Ruel Mondragon; Tyson Reece; Julian Monsivais; Juvenal Hedrick; Kentrell Cottrell; Jj Ragland; Kassy Shipman; Sadi Andrade; Frankie Conway; Jimi Rdz; Yeimi Allen; Nixon Kitchen; Monique,Starr; Vinay,Brad; Pancho Rois; Shirley,Phi; Yu,Errol; Kira Silva; Gabrielle Nickerson; Mariano Glasgow; Floyd Bernal; Mike Juarez; Matt Acevedo; Eloisa More; Puja Almeida; Yanet Zhou; Hiren Petit Discharge Orders/Prescriptions Prescriptions: No Action carvedilol 3.125 mg tablet 3.125 mg PO BID amlodipine 10 mg tablet 10 mg PO DAILY simvastatin 20 mg tablet 20 mg PO DAILY hydralazine 100 mg tablet 100 mg PO TID Referrals / Follow Up: Ann Marie Duran DO [Primary Care Provider] - Disposition Disposition (needs filled in before D/C Order can be placed): Acute Care Hospital Charges/Coding Visit Charges Inpatient E&M: 04924 Disch Hosp >30min
--- NOTE | 2025-06-11 19:57 | NURSING ---
Report called to María Moreno to nurse Lidia for pt to be transferred. Pt family (brother Wayne, mother Johana) also updated to plan for pt to be transferred this evening. Visiting hours at [facility] are from 8A-8P.
== END 2025-06-11 21:30 | disposition short-term general hospital (02) | DRG 952 ==
LOC: ED 10:58 → ICU 11:46 → PCU 05-26 12:51
PROVIDERS: Family Medicine; Internal Medicine; Internal Medicine Critical Care Medicine; Internal Medicine Gastroenterology; Obstetrics & Gynecology; Student in an Organized Health Care Education/Training Program; Emergency Provider Emergency Medicine; PCP Family Medicine; Visit Provider Internal Medicine
PROC: 0DJ08ZZ Inspection of Upper Intestinal Tract, Via Natural or Artificial Opening Endoscopic (ICD-10-PCS; CPT 43235; principal; 2025-05-22 16:25)
DX: J96.01 Acute respiratory failure with hypoxia (principal); R57.1 Hypovolemic shock; I50.33 Acute on chronic diastolic (congestive) heart failure; E87.20 Acidosis, unspecified; E87.0 Hyperosmolality and hypernatremia; D63.1 Anemia in chronic kidney disease; D62 Acute posthemorrhagic anemia; E87.4 Mixed disorder of acid-base balance; J18.9 Pneumonia, unspecified organism; N18.4 Chronic kidney disease, stage 4 (severe); G81.91 Hemiplegia, unspecified affecting right dominant side; C55 Malignant neoplasm of uterus, part unspecified; I13.0 Hypertensive heart and chronic kidney disease with heart failure and stage 1 through stage 4 chronic kidney disease, or unspecified chronic kidney disease; I69.322 Dysarthria following cerebral infarction; K25.9 Gastric ulcer, unspecified as acute or chronic, without hemorrhage or perforation; I48.91 Unspecified atrial fibrillation; I24.89 Other forms of acute ischemic heart disease; E78.5 Hyperlipidemia, unspecified; N17.9 Acute kidney failure, unspecified; E87.5 Hyperkalemia; D50.9 Iron deficiency anemia, unspecified; I47.20 Ventricular tachycardia, unspecified; E87.6 Hypokalemia; D63.0 Anemia in neoplastic disease; R19.7 Diarrhea, unspecified; I42.2 Other hypertrophic cardiomyopathy; I47.10 Supraventricular tachycardia, unspecified; Z79.899 Other long term (current) drug therapy; B96.20 Unspecified Escherichia coli [E. coli] as the cause of diseases classified elsewhere; N39.0 Urinary tract infection, site not specified; K26.9 Duodenal ulcer, unspecified as acute or chronic, without hemorrhage or perforation; N95.0 Postmenopausal bleeding; Z78.0 Asymptomatic menopausal state; N85.02 Endometrial intraepithelial neoplasia [EIN]; N85.01 Benign endometrial hyperplasia; R13.12 Dysphagia, oropharyngeal phase
CPT/HCPCS: 31500; 31720; 36415; 36600; 51702; 71045; 71275; 74230; 76770; 76830; 80048; 80053; 80202; 81001; 82378; 82550; 82607; 82728; 82746; 82803; 83540; 83550; 83605; 83735; 83880; 84100; 84145; 84443; 84478; 84484; 85014; 85018; 85025; 85610; 86304; 86850; 86900; 86901; 87040; 87070; 87077; 87086; 87088; 87186; 87205; 87493; 87506; 87624; 88175; 88305; 92526; 92610; 92611; 93005; 93306; 94002; 94003; 94660; 94668; 94762; 97110; 97162; 97166; 97530; 97535; 97802; 97803; 99252; 99285; P9016; Q9957; Q9967; A4216; C8929; G0145; G0463; J1938; J2916

== ENCOUNTER → 2025-07-30 | Outpatient (CLI) | payer MEDICAID, SELFPAY ==
[2025-07-30 17:36] LABS: Hematocrit 31.7 % (37-47); Hemoglobin 9.2 g/dL (12.0-15.0); Immature Granulocytes Count 0.030 X10^3/uL (0.0-0.0); Mean Corp Hgb Conc 29.0 g/dL (32-36); Mean Corpuscular Volume 78.7 fL (81-99); Mean Platelet Vol. 10.0 fl (6.2-12.0); NRBC Flagged by Analyzer 0 % (0-5); Platelet Count 478 K/mm3 (150-450); RBC Distribution Width CV 17.3 % (11.6-14.6); RBC Distribution Width SD 49.4 fl (35.1-43.9); Red Blood Count 4.03 M/mm3 (4.2-5.4); White Blood Count 8.6 K/mm3 (4.4-11.0)
[2025-07-30 18:09] LABS: AST(SGOT) 16 U/L (<=31); Alanine Aminotransfer ALT/SGPT 11 U/L (<=34); Albumin, Serum 2.6 g/dL (3.4-4.8); Alkaline Phosphatase 77 U/L (35-104); Anion Gap 11 (5-15); BUN 22 mg/dL (4-19); BUN/Creat Ratio 16.0 RATIO (10-20); Calcium,Total 8.3 mg/dL (7.6-11.0); Carbon Dioxide 23.7 mmol/L (21.0-32.0); Chloride 105 mmol/L (98-108); Globulin 4.4 g/dL (2.2-4.2); Glucose 100 mg/dL (70-99); Magnesium 2.1 mg/dL (1.5-2.2); Potassium 4.0 mmol/L (3.3-5.1)
== END | disposition home or self-care (01) ==
PROVIDERS: PCP Family Medicine; Referring Provider Family Medicine; Visit Provider Family Medicine
DX: I12.9 Hypertensive chronic kidney disease with stage 1 through stage 4 chronic kidney disease, or unspecified chronic kidney disease (principal); I48.91 Unspecified atrial fibrillation; N18.32 Chronic kidney disease, stage 3b; E78.5 Hyperlipidemia, unspecified; D64.9 Anemia, unspecified; Z51.81 Encounter for therapeutic drug level monitoring
CPT/HCPCS: 36415; 80053; 80162; 83735; 85025

== ENCOUNTER 2025-08-19 13:10 | Inpatient (IN) | payer MEDICAID, SELFPAY ==
[2025-08-19] VITALS (7 sets, daily range): BP systolic 136–166; BP diastolic 77–108; PULSE 70–88; RESP 14–22; TEMP 36.6–36.9; O2SAT 93–98; BMI 27.2; BMI 26.7
--- OUTSIDE RECORDS SUMMARY | 2025-08-19 13:42 | XMS RPT_ITS | CCD ---
Author Organization [facility] Care Team Providers Care Stereo Equipment Installer Name Role Phone Dr. Sabrina Duran DO Primary Care Provider [phone] Dr. Sabrina Duran DO Attending Provider [phone] [place], Dr. Dodge Emergency Provider Dr. Matt Acevedo DO Admit Provider Dr. Matt Acevedo DO Attending Provider Unavailable Primary Care Provider [facility] e Dr. Sabrina Duran DO Primary Care Provider Dr. Efren Arevalo MD Attending Provider Dr. Dar Hunt MD Emergency Provider Dr. Matt Acevedo DO Admit Provider Dr. Matt Acevedo DO Other Provider Dr. Ziggy Shelton MD Attending Provider Nikita [place], Dr. Trinh Other Provider Dr. Jeffery Mcrae DO Other Provider Yefri CEREAL CHEMIST-CSwetha Other Provider Mello CEREAL CHEMIST-CNayely Other Provider Mayra Hutchinson Other Provider [phone] Cecilia [place], Dr. Hughes Other Provider Alanna [place], Dr. Lipscomb Other Provider Chevy [place], Dr. Mehta Other Provider [phone] Julian Monsivais DO Other Provider Ryley [place], Dr. Juvenal Holley Other Provider Ronit [place], Dr. Pfeiffer Other Provider Ellyn [place], Dr. Gardner Other Provider Ramonita [place], Dr. Elena Other Provider Lupe [place], Dr. Avitia Other Provider Man [place], Dr. David Other Provider Kendell CA, Dr. Krause Other Provider Tiffany CA, Dr. Jalloh Other Provider Imtiaz CA, Dr. Alicea Other Provider Unavailabl carl Amaya MD, Dr. Clements Other Provider Vinay CA, Dr. Salinas Other Provider Gabriel [place], Dr. Deleon Other Provider [phone] Shirley [place], Dr. Yip Other Provider Yu SLAUGHTER, Dr. Norton Other Provider [phone] Shira [place], Dr. Malone Other Provider [phone] Krishan [place], Dr. Anthony Other Provider Myah SLAUGHTER, Dr. Quintana Other Provider Gabe CA, Dr. Barrientos Other Provider Larry CA, Dr. Mckeon Other Provider Argenis CA, Dr. Amin Other Provider Juan Pablo CA, Dr. Luo Other Provider Abelardo CA, Dr. Yanet Hdz Other Provider Marisabel CA, Dr. Hiren Lerner Other Provider Dr. Matt Acevedo DO Referring Provider Dr. Julian Monsivais DO Attending Provider Dr. Matt Acevedo DO Attending Provider Clementina DO, Dr. Gil Attending Provider Abelardo [place], Dr. Yanet Hdz Attending Provider Mello FINK-CNayely Attending Provider Argenis [place], Dr. Amin Attending Provider Juan Pablo [place], Dr. Luo Attending Provider Gisell [place], Dr. Irena Yun Attending Provider Marisabel [place], Dr. Hiren Lerner Attending Provider Roger, Sabrina Montague Primary Care Provider Shannon AC, David Montague Unavailable Malyasemin, Sabrina Eddi Primary Care Provider Shannon [place], David Montague Unavailable PHYSICIAN, NONE Attending Unavailable PHYSICIAN, NONE Primary Care Unavailable RUBIO SANDERS Referring Unavailable DAVID ORTEGA Consulting Unavailable MALYS, SABRINA Primary Care Unavailable MUDRAKOLA, NORMAN Admitting Unavailable RUBIO MULLINS Attending Unavailable AMY LAGUERRE Consulting Unavailable Matt Acevedo Admitting Unavailable Ziggy Shelton Consulting Unavailable Malys, Sabrina Primary Care Unavailable Hiren Sanders Attending Unavailable Jeffery Mcrae Consulting Unavailable Swetha Asif Consulting Unavailable Nayely Sarkar Consulting Unavailable Mayra Mejía Consulting Unavailable Saul Brooks Consulting Unavailable Ruel Mondragon Consulting Unavailable Tyson Reece Consulting Unavailable Julian Monsivais Consulting Unavailable Juvenal Hedrick Consulting Unavailable Kentrell Cottrell Consulting Unavailable Jj Ragland Consulting Unavailable Kassy Shipman Consulting UnavailSadi Russo Consulting Unavailable Frankie Conway Consulting Unavailable Jimi Rdz Consulting Unavailable Yeimi Allen Consulting Unavailable Nixon Kitchen Consulting Unavailable Starr Amaya Consulting Unavailable Brad Mclean Consulting Unavailable Pancho Rios Consulting Unavailable ShirleyPhi jones Consulting Unavailable Dhesi, Errol Consulting Unavailable Kira Silva Consulting Unavailable Gabrielle Nickerson Consulting Unavailable Myah, Mariano Consulting Unavailable Gabe, Floyd Consulting Unavailable Mike Juarez Consulting Unavailable Matt Acevedo Consulting Unavailable Eloisa More Consulting Unavailable NagaClaudy agustinapradee Consulting Unavailabl e Koram, Yanet Andreina Consulting Unavailable Hiren Sanders Consulting Unavailable Malys, Sabrina Referring Unavailable Malys, Sabrina Attending Unavailable Malys, Sabrina Primary Care Unavailable Rick Sheltonsh Attending Unavailable Matt Acevedo Attending Unavailable Julian Monsivais Attending Unavailable Hiren Sanders Referring Unavailable Jopperi, Matt Referring Unavailable Clementina, Jeffery Attending Unavailable Percyam, Yanet Andreina Attending Unavailable Eloisa More Attending Unavailable Malys, Sabrina Attending Unavailable Malys, Sabrina Referring Unavailable Malys, Sabrina Primary Care Unavailable ClaudyaReji agustine Attending Unavailabl e Malys, Sabrina Primary Care Unavailable Efren Arevalo Attending Unavailable Malys, Sabrina Primary Care Unavailable Meghanaeri, Matt Referring Unavailable Friend, Jeffery Attending Unavailable Nayely Sarkar Attending Unavailable Koram, Yanet Andreina Referring Unavailable Jopperi, Matt Admitting Unavailable Malys, Sabrina Primary Care Unavailable Nikita, Ziggy Consulting Unavailable Ziggy Shelton Attending Unavailable Clementina, Jeffery Consulting Unavailable Swetha Asif Consulting Unavailable Nayely Sarkar Consulting Unavailable Mayra Mejía Consulting Unavailable Saul Brooks Consulting Unavailable Ruel Mondragon Consulting Unavailable Tyson Reece Consulting Unavailable Julian Monsivais Consulting Unavailable Juvenal Hedrick Consulting Unavailable Kentrell Cottrell Consulting Unavailable Jj Ragland Consulting Unavailable Kassy Shipman Consulting Unavailab Sadi Anne Consulting Unavailable Frankie Conway Consulting Unavailable Jimi Rdz Consulting Unavailable Yeimi Allen Consulting Unavailable Nixon Kitchen Consulting Unavailable Starr Amaya Consulting Unavailable Sandoval Mcleanm Consulting Unavailable Pancho Rios Consulting Unavailable Phi Watson Consulting Unavailable Errol Nicholas Consulting Unavailable Kira Silva Consulting Unavailable Gabrielle Nickerson Consulting Unavailable Myah, Mariano Consulting Unavailable Gabe, Floyd Consulting Unavailable Mike Juarez Consulting Unavailable Matt Acevedo Consulting Unavailable Eloisa More Consulting Unavailable Puja Almeida Consulting UnavailYanet Yin Consulting Unavailable Hiren Sanders Consulting Unavailable Sabrina Duran Attending Unavailable Sabrina Duran Primary Care Unavailable Medications Current Medications Medication Drug Class(es) Dates Sig (Normalized) Sig (Original) digoxin 0.125 mg oral tablet (5 sources) Cardiac Glycoside Start: 06-19-2025 End: 06-30-2026 take 1 tablet by mouth once daily in the evening digoxin (Lanoxin) 125 MCG tablet Take 1 tablet (125 mcg) by mouth daily. 30 tablet 11 06/29/2025 2:33 PM EDT 06/30/2025 06/30/2026 Active metoprolol tartrate 25 mg oral tablet (13 sources) beta-Adrenergic Charlotte Start: 06-20-2025 End: 06-29-2026 take 1 tablet by mouth every eight hours metoprolol tartrate (Lopressor) 25 MG tablet Take 1 tablet (25 mg) by mouth every 8 hours. 90 tablet 11 06/29/2025 2:33 PM EDT 06/29/2025 06/29/2026 Active Start: 06-18-2025 End: 06-19-2025 take 25 mg by mouth every six hours Start: 06-17-2025 End: 06-29-2025 take 5 mg intravenously every six hours as needed ondansetron 4 mg disintegrating oral tablet (2 sources) Serotonin-3 Receptor Antagonist Start: 06-29-2025 End: 07-06-2025 take 4 mg by mouth every eight hours as needed for nausea and vomiting pantoprazole 40 mg delayed release oral tablet (5 sources) Proton Pump Inhibitor Start: 06-17-2025 End: 06-29-2026 take 1 tablet by mouth once daily pantoprazole (ProtoNix) 40 MG EC tablet Take 1 tablet (40 mg) by mouth Nightly. Do not crush, chew, or split. 30 tablet 11 06/29/2025 2:33 PM EDT 06/29/2025 06/29/2026 Active simvastatin 20 mg oral tablet (8 sources) HMG-CoA Reductase Inhibitor Start: 05-21-2025 simvastatin (Zocor) 20 MG tablet 20 mg. 05/21/2025 Active Completed/Discontinued Medications Medication Drug Class(es) Dates Sig (Normalized) Sig (Original) amLODIPine 10 mg oral tablet (8 sources) Dihydropyridine Calcium Channel Charlotte Start: 05-21-2025 End: 06-29-2025 amLODIPine (Norvasc) 10 MG tablet 10 mg. 05/21/2025 Suspended atorvastatin 20 mg oral tablet (2 sources) HMG-CoA Reductase Inhibitor Start: 06-12-2025 End: 06-29-2025 calcium chloride 0.0014 meq/ml / potassium chloride 0.004 meq/ml / sodium chloride 0.103 meq/ml / sodium lactate 0.028 meq/ml injectable solution (4 sources) Start: 06-28-2025 End: 06-29-2025 Start: 06-17-2025 End: 06-17-2025 carvedilol 6.25 mg oral tablet (8 sources) alpha-Adrenergic Charlotte, beta-Adrenergic Charlotte Start: 06-12-2025 End: 06-18-2025 Start: 05-21-2025 End: 06-29-2025 carvedilol (Coreg) 3.125 MG tablet 3.125 mg. 05/21/2025 Suspended Drug or medicament (substanc e) (4 sources) Start: 06-13-2025 End: 06-29-2025 Start: 06-13-2025 End: 06-29-2025 2 ml furosemide 10 mg/ml inj ection (10 sources) Loop Diuretic Start: 06-26-2025 End: 06-26-2025 Start: 06-24-2025 End: 06-29-2025 Start: 06-21-2025 End: 06-22-2025 hydrALAZINE hydrochloride 10 mg oral tablet (10 sources) Arteriolar Vasodilator Start: 06-12-2025 End: 06-18-2025 Start: 06-12-2025 End: 06-12-2025 Start: 05-21-2025 End: 06-29-2025 hydrALAZINE (Apresoline) 100 MG tablet 100 mg. 05/21/2025 Suspended 1 ml LORazepam 2 mg/ml injection (4 sources) Benzodiazepine Start: 06-28-2025 End: 06-29-2025 take 0.5 mg intravenously every six hours as needed for anxiety Start: 06-14-2025 End: 06-14-2025 melatonin 3 mg oral tablet (2 sources) Start: 06-12-2025 End: 06-29-2025 1 ml morphine sulfate 4 mg/m l cartridge (2 sources) Opioid Agonist Start: 06-19-2025 End: 06-19-2025 Start: 06-19-2025 End: 06-19-2025 mupirocin 0.02 mg/mg topical ointment (2 sources) RNA Synthetase Inhibitor Antibacterial Start: 06-17-2025 End: 06-22-2025 polyethylene glycol 3350 61478 mg powder for oral solution (2 sources) Osmotic Laxative Start: 06-11-2025 End: 06-29-2025 take 17 g by mouth every twenty-four hours as needed for constipation 5 ml sodium chloride 9 mg/ml injection (12 sources) Start: 06-12-2025 End: 06-17-2025 take 5-40 mL intraluminal route every eight hours Start: 06-12-2025 End: 06-29-2025 Start: 06-12-2025 End: 06-29-2025 take 5-40 mL intravenously every twelve hours Start: 06-11-2025 End: 06-29-2025 (10 sources) Start: 06-18-2025 End: 06-19-2025 take 4500 mg intravenously every six hours Start: 06-18-2025 End: 06-18-2025 Start: 06-17-2025 End: 06-18-2025 take 2000 mg intravenously every eight hours Start: 06-11-2025 End: 06-29-2025 take 4 mg by mouth every eight hours as needed for nausea and vomiting [Order 1 Start] Name: ondansetron ODT (Zofran-ODT) disintegrating tablet 4 mg Signed Summary: 4 mg, Oral, Every 8 hours PRN, nausea, vomiting, Starting on Wed06/11/25 at 2351, 1st Line. If inadequate response within 60 minutes, proceed to next-line agent or contact provider if no further options ordered. Patient should allow tablet to dissolve on tongue. Do not remove from blister pack until just before administering. [Order 1 End] [Order 2 Start] Name: ondansetron (Zofran) injection 4 mg Signed Summary: 4 mg, IntraVENous, Every 6 hours PRN, nausea, vomiting, Starting on Wed06/11/25 at 2351, 1st Line. Give IV if patient is unable to take orally. If inadequate response within 60 minutes, proceed to next-line agent or contact provider if no further options ordered. [Order 2 End] Start: 06-11-2025 End: 06-29-2025 take 650 mg by mouth every six hours as needed for pain and fever [Order 1 Start] Name: acetaminophen (Tylenol) tablet 650 mg Signed Summary: 650 mg, Oral, Every 6 hours PRN, mild pain (1-3), fever, For temp greater than 100.4 F (38 C), Starting on Wed06/11/25 at 2351, Maximum dose of acetaminophen is 4000 mg from all sources in 24 hours. [Order 1 End] [Order 2 Start] Name: acetaminophen (Tylenol) suppository 650 mg Signed Summary: 650 mg, Rectal, Every 6 hours PRN, mild pain (1-3), fever, For temp greater than 100.4 F (38 C), Starting on Wed06/11/25 at 2351, Administer if oral route cannot be used. Maximum dose of acetaminophen is 4000 mg from all sources in 24 hours. [Order 2 End] (2 sources) Start: 06-17-2025 End: 06-17-2025 (2 sources) Start: 06-13-2025 End: 06-13-2025 (2 sources) Start: 06-13-2025 End: 06-17-2025 Problems Problem Classification Problem Date Documented Da te Episodic/Chronic Acute and unspecified renal failure (5 sources) [id number]-efnnbyh renal failure; Translations: [Acute kidney failure, unspecified] Onset: 06-28-2025 05-21-2025 Episodic Acute cerebrovascular disease (6 sources) Cerebrovascular accident; Translations: [Cerebral infarction, unspecified] Onset: 06-28-2025 06-28-2025 Chronic Acute posthemorrhagic anemia (11 sources) Acute posthemorrhagic anemia; Translations: [Acute posthemorrhagic anemia] Onset: 06-17-2025 05-21-2025 Episodic Cancer of uterus (9 sources) Malignant neoplasm of endometrium of corpus uteri ; Translations: [Malignant neoplasm of endometrium] Onset: 06-11-2025 06-28-2025 Chronic Cardiac dysrhythmias (19 sources) Atrial fibrillation; Translations: [Unspecified atrial fibrillation] Onset: 06-17-2025 05-21-2025 Chronic Chronic kidney disease (1 source) Chronic kidney disease, unspecified; Translations: [Chronic kidney disease, unspecified] Onset: 06-28-2025 Chronic Chronic kidney disease (1 source) Chronic kidney disease; Translations: [Chronic kidney disease, stage 3b] Onset: 07-30-2025 Congestive heart failure; nonhypertensive (3 sources) Heart failure with normal ejection fraction; Translations: [Unspecified diastolic (congestive) heart failure] Onset: 06-28-2025 05-21-2025 Chronic Coronary atherosclerosis and other heart disease (4 sources) EKG myocardial ischemia; Translations: [Chronic ischemic heart disease, unspecified] 05-21-2025 Chronic Deficiency and other anemia (4 sources) Microcytic anemia; Translations: [Iron deficiency anemia, unspecified] 05-21-2025 Episodic Deficiency and other anemia (4 sources) Anemia; Translations: [Anemia, unspecified] 05-21-2025 Episodic Deficiency and other anemia (1 source) Anemia, unspecified; Translations: [Anemia, unspecified] Onset: 07-30-2025 Episodic Disorders of lipid metabolism (1 source) Hyperlipidemia, unspecified; Translations: [Hyperlipidemia, unspecified] Onset: 07-30-2025 Chronic Essential hypertension (1 source) Essential (primary) hypertension; Translations: [Essential (primary) hypertension] Onset: 07-30-2025 Chronic Fluid and electrolyte disorders (11 sources) Acute hyperkalemia; Translations: [Hyperkalemia] Onset: 06-28-2025 05-21-2025 Episodic Menopausal disorders (3 sources) Postmenopausal bleeding; Translations: [Postmenopausal bleeding] Onset: 06-28-2025 06-05-2025 Chronic Other aftercare (1 source) Encounter for therapeutic drug level monitoring; Translations: [Encounter for therapeutic drug level monitoring] Onset: 07-30-2025 Episodic Other female genital disorders (2 sources) Complex endometrial hyperplasia without atypia; Translations: [Benign endometrial hyperplasia] 06-07-2025 Chronic Other female genital disorders (10 sources) Vaginal bleeding; Translations: [Abnormal uterine and vaginal bleeding, unspecified] Onset: 06-11-2025 06-11-2025 Chronic Other female genital disorders (2 sources) Abnormal uterine and vaginal bleeding, unspecified; Translations: [Abnormal uterine and vaginal bleeding, unspecified] Onset: 06-11-2025 Chronic Other female genital disorders (1 source) Benign endometrial hyperplasia; Translations: [Benign endometrial hyperplasia] Onset: 06-28-2025 Chronic Other gastrointestinal disorders (2 sources) Dysphagia; Translations: [Dysphagia, unspecified] 05-26-2025 Episodic Other gastrointestinal disorders (1 source) Dysphagia, unspecified; Translations: [Dysphagia, unspecified] Onset: 06-28-2025 Episodic Other screening for suspected conditions (not mental disorders or infectious disease) (3 sources) Endometrium thickened; Translations: [Abnormal findings on diagnostic imaging of other specified body structures] Onset: 06-28-2025 06-02-2025 Chronic Other screening for suspected conditions (not mental disorders or infectious disease) (8 sources) Raised cardiac enzyme or marker; Translations: [Other specified abnormal findings of blood chemistry] Onset: 06-28-2025 05-21-2025 Episodic Pneumonia (except that caused by tuberculosis or sexually transmitted disease) (8 sources) Pneumonia; Translations: [Pneumonia, unspecified organism] Onset: 06-25-2025 06-25-2025 Episodic Residual codes; unclassified (4 sources) Sign; Translations: [Other general symptoms and signs] 05-21-2025 Episodic Respiratory failure; insufficiency; arrest (adult) (20 sources) Acute hypoxemic respiratory failure; Translations: [Acute respiratory failure with hypoxia] Onset: 06-11-2025 05-21-2025 Episodic Shock (5 sources) Shock; Translations: [Shock, unspecified] Onset: 06-28-2025 05-21-2025 Episodic Unclassified (2 sources) Chronic atrial fibrillation, unspecified; Translations: [Chronic atrial fibrillation, unspecified (HCC)] Onset: 06-11-2025 Unclassified (1 source) Other ventricular tachycardia; Translations: [Other ventricular tachycardia] Onset: 06-28-2025 Results Test Name Value Interpretation Reference Range Facility CBC W/Diff, Automatedon 11-0 Absolute Lymph 1.33 X10 3/uL Normal 0.83-4.51 [facility] Comment on above: Performed By: #### L 500.4050, L501.5200, L100.0100, L501.7510 ####[facility] [address] [place], [address] Absolute Neut 6.2 X10 3/uL Normal 2.0-7.7 [facility] Comment on above: Performed By: #### L 500.4050, L501.5200, L100.0100, L501.7510 ####[facility] [address] [place], [address] Basophils/100 WBC (Bld) 0.7 % Normal 0-1 [facility] Comment on above: Performed By: #### L 500.4050, L501.5200, L100.0100, L501.7510 ####[facility] [address] [place], [address] Eosinophils/100 WBC (Bld) 3.1 % Normal 0-5 [facility] Comment on above: Performed By: #### L 500.4050, L501.5200, L100.0100, L501.7510 ####[facility] [address] [place], [address] Erythrocyte distribution width (RBC) [Ratio] 17.3 % High 11.6-14.6 [facility] Comment on above: Performed By: #### L 500.4050, L501.5200, L100.0100, L501.7510 ####[facility] [address] [place], [address] Hematocrit (Bld) [Volume fraction] 31.7 % Low 37-47 [facility] Comment on above: Performed By: #### L 500.4050, L501.5200, L100.0100, L501.7510 ####[facility] [address] [place], [address] Hemoglobin (Bld) [Mass/Vol] 9.2 g/dL Low 12.0-15.0 [facility] Comment on above: Performed By: #### L 500.4050, L501.5200, L100.0100, L501.7510 ####[facility] [address] [place], [address] IG% 0.300 Normal 0.0-0.9 [facility] Comment on above: Result Comment: IG% - Immature Granulocytes (promyelocytes, myelocytes andmetamyelocytes) > 1% indicates that a LEFT SHIFT is Present. Performed By: #### L 500.4050, L501.5200, L100.0100, L501.7510 ####[facility] [address] [place], [address] Lymphocytes/100 WBC (Bld) 15.4 % Low 19-41 [facility] Comment on above: Performed By: #### L 500.4050, L501.5200, L100.0100, L501.7510 ####[facility] [address] [place], [address] MCH (RBC) [Entitic mass] 22.8 pg Low 27.0-32.0 [facility] Comment on above: Performed By: #### L 500.4050, L501.5200, L100.0100, L501.7510 ####[facility] [address] [place], [address] MCHC (RBC) [Mass/Vol] 29.0 g/dL Low 32-36 [facility] Comment on above: Performed By: #### L 500.4050, L501.5200, L100.0100, L501.7510 ####[facility] [address] [place], [address] MCV (RBC) [Entitic vol] 78.7 fL Low 81-99 [facility] Comment on above: Performed By: #### L 500.4050, L501.5200, L100.0100, L501.7510 ####[facility] [address] [place], [address] Monocytes/100 WBC (Bld) 9.1 % Normal 0-10 [facility] Comment on above: Performed By: #### L 500.4050, L501.5200, L100.0100, L501.7510 ####[facility] [address] [place], [address] Neutrophils/100 WBC (Bld) 71.4 % High 47-70 [facility] Comment on above: Performed By: #### L 500.4050, L501.5200, L100.0100, L501.7510 ####[facility] [address] [place], [address] Nucleated RBC (Bld) [#/Vol] 0 10*3/uL Normal 0-5 [facility] Comment on above: Performed By: #### L 500.4050, L501.5200, L100.0100, L501.7510 ####[facility] [address] [place], [address] Platelet mean volume (Bld) [Entitic vol] 10.0 fL Normal 6.2-12.0 [facility] Comment on above: Performed By: #### L 500.4050, L501.5200, L100.0100, L501.7510 ####[facility] [address] [place], [address] Platelets (Bld) [#/Vol] 478 10*3/uL High 150-450 [facility] Comment on above: Performed By: #### L 500.4050, L501.5200, L100.0100, L501.7510 ####[facility] [address] [place], [address] RBC (Bld) [#/Vol] 4.03 10*6/uL Low 4.2-5.4 [facility] Comment on above: Performed By: #### L 500.4050, L501.5200, L100.0100, L501.7510 ####[facility] [address] [place], [address] RDW SD 49.4 fl High 35.1-43.9 [facility] Comment on above: Performed By: #### L 500.4050, L501.5200, L100.0100, L501.7510 ####[facility] [address] [place], [address] WBC (Bld) [#/Vol] 8.6 10*3/uL Normal 4.4-11.0 [facility] Comment on above: Performed By: #### L 500.4050, L501.5200, L100.0100, L501.7510 ####[facility] [address] [place], [address] Comprehensive Metabolic Prof [facility] 07-30-2025 Albumin [Mass/Vol] 2.6 g/dL Low 3.4-4.8 [facility] Comment on above: Performed By: #### L 500.4050, L501.5200, L100.0100, L501.7510 ####[facility] [address] [place], [address] Albumin/Globulin [Mass ratio] 0.6 {ratio} Low 0.9-2.4 [facility] Comment on above: Performed By: #### L 500.4050, L501.5200, L100.0100, L501.7510 ####[facility] [address] [place], [address] ALK PHOS 77 U/L Normal 35-104 [facility] Comment on above: Performed By: #### L 500.4050, L501.5200, L100.0100, L501.7510 ####[facility] [address] [place], [address] ALT [Catalytic activity/Vol] 11 U/L Normal <=34 [facility] [place] Comment on above: Performed By: #### L 500.4050, L501.5200, L100.0100, L501.7510 ####[facility] [address] [place], [address] AST [Catalytic activity/Vol] 16 U/L Normal <=31 [facility] Comment on above: Performed By: #### L 500.4050, L501.5200, L100.0100, L501.7510 ####[facility] [address] [place], [address] Bilirubin [Mass/Vol] 0.43 mg/dL Normal 0.00-1.30 [facility] Comment on above: Performed By: #### L 500.4050, L501.5200, L100.0100, L501.7510 ####[facility] [address] [place], [address] BUN/CRE 16.0 RATIO Normal 10-20 [facility] Comment on above: Performed By: #### L 500.4050, L501.5200, L100.0100, L501.7510 ####[facility] [address] [place], [address] Calcium [Mass/Vol] 8.3 mg/dL Normal 7.6-11.0 [facility] Comment on above: Performed By: #### L 500.4050, L501.5200, L100.0100, L501.7510 ####[facility] [address] [place], [address] Chloride [Moles/Vol] 105 mmol/L Normal 98-108 [facility] Comment on above: Performed By: #### L 500.4050, L501.5200, L100.0100, L501.7510 ####[facility] [address] [place], [address] CO2 [Moles/Vol] 23.7 mmol/L Normal 21.0-32.0 [facility] Comment on above: Performed By: #### L 500.4050, L501.5200, L100.0100, L501.7510 ####[facility] [address] [place], [address] Creatinine [Mass/Vol] 1.37 mg/dL High 0.70-1.20 [facility] Comment on above: Performed By: #### L 500.4050, L501.5200, L100.0100, L501.7510 ####[facility] [address] [place], [address] GAP 11 Normal 5-15 [facility] Comment on above: Performed By: #### L 500.4050, L501.5200, L100.0100, L501.7510 ####[facility] [place] [address] [place], [address] GFR/1.73 sq M.predicted among non-blacks MDRD (S/P/Bld) [Vol rate/Area] 44 mL/min/{1.73_m2} Low >60 [facility] Comment on above: Result Comment: mL/m in/1.73m2 CKD-EPI Creatinine Equation (2020) Performed By: #### L 500.4050, L501.5200, L100.0100, L501.7510 ####[facility] [address] [place], [address] Globulin (S) [Mass/Vol] 4.4 g/dL High 2.2-4.2 [facility] Comment on above: Performed By: #### L 500.4050, L501.5200, L100.0100, L501.7510 ####[facility] [address] [place], [address] Glucose [Mass/Vol] 100 mg/dL High 70-99 [facility] Comment on above: Performed By: #### L 500.4050, L501.5200, L100.0100, L501.7510 ####[facility] [address] [place], [address] Potassium [Moles/Vol] 4.0 mmol/L Normal 3.3-5.1 [facility] Comment on above: Performed By: #### L 500.4050, L501.5200, L100.0100, L501.7510 ####[facility] [address] [place], [address] Sodium [Moles/Vol] 139 mmol/L Normal 133-145 [facility] Comment on above: Performed By: #### L 500.4050, L501.5200, L100.0100, L501.7510 ####[facility] [address] [place], [address] T PROT 7.0 g/dL Normal 5.9-8.4 [facility] Comment on above: Performed By: #### L 500.4050, L501.5200, L100.0100, L501.7510 ####[facility] [address] [place], [address] Urea nitrogen [Mass/Vol] 22 mg/dL High 4-19 [facility] Comment on above: Performed By: #### L 500.4050, L501.5200, L100.0100, L501.7510 ####[facility] [address] [place], [address] Digoxin Levelon 07-30-2025 DIG 1.18 ng/mL Normal 0.00-2.00 [facility] Comment on above: Performed By: #### L 500.4050, L501.5200, L100.0100, L501.7510 ####[facility] [address] [place], [address] Magnesiumon 07-30-2025 Magnesium [Mass/Vol] 2.1 mg/dL Normal 1.5-2.2 [facility] Comment on above: Performed By: #### L 500.4050, L501.5200, L100.0100, L501.7510 ####[facility] [address] [place], [address] [id number] 07-05-2025 [id number] Patient Choice Patient Name: NANCY DELACRUZ Date of : 1965 [facility] 36on 07-01-[address] Trever Byrnes saw this pt during her hospitalization. She was discharged on 06/29. Can you please call her and schedule a s/p hospital follow up with him in the next 2-3 weeks? If no openings can be with EVE. Thanks! Normal [facility] [id number] 06-29-2025 [id number] [facility] [id number] Home Health Care [facility] [address] [facility] [id number] Patient/Family Choice [facility] [id number] [facility] [id number] [facility] BASIC METABOLIC PANELon 10-0 Anion gap [Moles/Vol] 7 mmol/L Normal 3-13 [facility] Comment on above: Performed By: #### L AB15 ####Documentation Writer: NADIA FRENCH ([id number])[address] [place] [address] Calcium [Mass/Vol] 8.1 mg/dL Low 8.8-10.0 [facility] Comment on above: Performed By: #### L AB15 ####Documentation Writer: NADIA FRENCH ([id number])[facility] ([facility])[address] [place] [address] Chloride [Moles/Vol] 106 mmol/L Normal 98-107 [facility] Comment on above: Performed By: #### L AB15 ####Documentation Writer: NADIA FRENCH ([id number])[facility])[address] [place] [address] CO2 [Moles/Vol] 30 mmol/L Normal 23-31 [facility] Comment on above: Performed By: #### L AB15 ####Documentation Writer: NADIA FRENCH ([id number])[facility])[address] [place] [address] Creatinine [Mass/Vol] 1.16 mg/dL High 0.57-1.11 [facility] Comment on above: Performed By: #### L AB15 ####Documentation Writer: NADIA FRENCH ([id number])[facility])[address] [place] [address] [place] GLOMERULAR FILTRATION RATE ML/MIN/1.73 SQ M.PREDICTED 53.7 mL/min/1.73m*2 Low >60.0 [facility] Comment on above: Result Comment: Calc ulation based on the Chronic Kidney Disease Epidemiology Collaboration (CKD-EPI) equation refit without adjustment for race Performed By: #### L AB15 ####Documentation Writer: NADIA FRENCH ([id number])[facility])[address] [place] [address] Glucose [Mass/Vol] 110 mg/dL Normal 82-115 [facility] Comment on above: Performed By: #### L AB15 ####Documentation Writer: NADIA FRENCH ([id number])[facility])[address] [place] [address] [place] Potassium [Moles/Vol] 4.6 mmol/L Normal 3.5-5.1 [facility] Comment on above: Result Comment: [facility] potassium values may be up to 0.5 mmol/L lower than serum values. Performed By: #### L AB15 ####Documentation Writer: NADIA FRENCH ([id number])[facility])[address] [place] [address] Sodium [Moles/Vol] 143 mmol/L Normal 136-145 [facility] Comment on above: Performed By: #### L AB15 ####Documentation Writer: NADIA FRENCH ([id number])[facility])[address] [place] [address] Urea nitrogen [Mass/Vol] 39 mg/dL High 9-23 [facility] Comment on above: Performed By: #### L AB15 ####Documentation Writer: NADIA FRENCH ([id number])[facility] [place] [address] Basic metabolic 1998 panelon 06-29-2025 Anion gap [Moles/Vol] 7 mmol/L 3 - 13 mmol/L [facility] Calcium [Mass/Vol] 8.1 mg/dL Low 8.8 - 10. 0 mg/dL [facility] Chloride [Moles/Vol] 106 mmol/L 98 - 10 7 mmol/L [facility] CO2 [Moles/Vol] 30 mmol/L 23 - 31 mmol/L [facility] Creatinine [Mass/Vol] 1.16 mg/dL High 0.57 - 1.11 mg/dL [facility] GFR/1.73 sq M.predicted (S/P/Bld) [Vol rate/Area] 53.7 mL/min Low - PINF [facility] Glucose [Mass/Vol] 110 mg/dL 82 - 115 mg/dL [facility] Interpretation and review of laboratory results Abnormal [facility] Potassium [Moles/Vol] 4.6 mmol/L 3.5 - 5.1 mmol/L [facility] Sodium [Moles/Vol] 143 mmol/L 136 - 145 mmol/L [facility] Urea nitrogen [Mass/Vol] 39 mg/dL High 9 - 23 mg/dL [facility] CBC W Auto Differential pane l (Bld)on 06-29-2025 Basophils (Bld) [#/Vol] 0.1 10*3/uL 0.0 - 0.2 10*3/uL [facility] Basophils/100 WBC (Bld) 0.7 % 0.0 - 2.0 % [facility] Eosinophils (Bld) [#/Vol] 0.3 10*3/uL 0.0 - 0.5 10*3/uL [facility] Eosinophils/100 WBC (Bld) 2.7 % 0.0 - 6.0 % [facility] Erythrocyte distribution width (RBC) [Ratio] 21 % High 11.5 - 15.0 % [facility] Hematocrit (Bld) [Volume fraction] 28.4 % Low 35.0 - 47.0 % [facility] Hemoglobin (Bld) [Mass/Vol] 8 g/dL Low 11.7 - 16.0 g/dL [facility] Immature granulocytes (Bld) [#/Vol] 0 10*3/uL NINF - 0.1 10*3/uL [facility] Immature granulocytes/100 WBC (Bld) 0.4 % 0.0 - 2.0 % [facility] Interpretation and review of laboratory results Abnormal [facility] Lymphocytes (Bld) [#/Vol] 1.4 10*3/uL 1.0 - 4.3 10*3/uL [facility] Lymphocytes/100 WBC (Bld) 15.6 % 15.0 - 45.0 % [facility] MCH (RBC) [Entitic mass] 23.9 pg Low 26.0 - 34.0 pg [facility] MCHC (RBC) [Mass/Vol] 28.2 % Low 30.5 - 36.0 % [facility] MCV (RBC) [Entitic vol] 84.8 fL 77.0 - 99.0 fL [facility] Monocytes (Bld) [#/Vol] 0.7 10*3/uL 0.0 - 0.9 10*3/uL [facility] Monocytes/100 WBC (Bld) 7.4 % 5.0 - 13.0 % [facility] Neutrophils (Bld) [#/Vol] 6.7 10*3/uL 1.8 - 7.5 10*3/uL [facility] Neutrophils/100 WBC (Bld) 73.2 % 38.0 - 82.0 % [facility] Nucleated RBC/100 WBC (Bld) [Ratio] 0 % [facility] Platelet mean volume (Bld) [Entitic vol] 9.5 fL 9.0 - 12.7 fL [facility] Platelets (Bld) [#/Vol] 398 10*3/uL 140 - 440 10*3/uL [facility] RBC (Bld) [#/Vol] 3.35 10*6/uL Low 3.80 - 5.20 10*6/uL [facility] WBC (Bld) [#/Vol] 9.1 10*3/uL 3.6 - 10.7 10*3/uL [facility] CBC WITH AUTO DIFFERENTIALon 06-29-2025 Basophils (Bld) [#/Vol] 0.1 10*3/uL Normal 0.0-0.2 [facility] Comment on above: Performed By: #### L [id number] ####Documentation Writer: NADIA FRENCH ([id number])[facility] ([facility])[address] [place] [address] Basophils/100 WBC (Bld) 0.7 % Normal 0.0-2.0 [facility] Comment on above: Performed By: #### L [id number] ####Documentation Writer: NADIA FRENCH ([id number])[facility] ([facility])[address] [place] [address] Eosinophils (Bld) [#/Vol] 0.3 10*3/uL Normal 0.0-0.5 [facility] Comment on above: Performed By: #### L [id number] ####Documentation Writer: NADIA FRENCH ([id number])[facility] ([facility])[address] [place] [address] Eosinophils/100 WBC (Bld) 2.7 % Normal 0.0-6.0 [facility] Comment on above: Performed By: #### L [id number] ####Documentation Writer: NADIA FRENCH ([id number])[facility] ([facility])[address] [place] [address] Erythrocyte distribution width (RBC) [Ratio] 21.0 % High 11.5-15.0 [facility] Comment on above: Performed By: #### L [id number] ####Documentation Writer: NADIA FRENCH ([id number])[facility] ([facility])[address] [place] [address] Hematocrit (Bld) [Volume fraction] 28.4 % Low 35.0-47.0 [facility] Comment on above: Performed By: #### L [id number] ####Documentation Writer: NADIA FRENCH ([id number])[facility])[address] [place] [address] Hemoglobin (Bld) [Mass/Vol] 8.0 g/dL Low 11.7-16.0 [facility] Comment on above: Performed By: #### L [id number] ####Documentation Writer: NADIA FRENCH ([id number])[facility])[address] [place] [address] IMMATURE GRANS % 0.4 % Normal 0.0-2.0 [facility] Comment on above: Performed By: #### L [id number] ####Documentation Writer: NADIA FRENCH ([id number])[address] IMMATURE GRANS ABSOLUTE 0.0 10*3/uL Normal <0.1 [facility] Comment on above: Performed By: #### L [id number] ####Documentation Writer: NADIA FRENCH ([id number])[facility])[address] [place] [address] Lymphocytes (Bld) [#/Vol] 1.4 10*3/uL Normal 1.0-4.3 [facility] Comment on above: Performed By: #### L [id number] ####Documentation Writer: NADIA FRENCH ([id number])[facility])[address] [place] [address] Lymphocytes/100 WBC (Bld) 15.6 % Normal 15.0-45.0 [facility] Comment on above: Performed By: #### L [id number] ####Documentation Writer: NADIA FRENCH ([id number])[facility])[address] [place] [address] MCH (RBC) [Entitic mass] 23.9 pg Low 26.0-34.0 [facility] Comment on above: Performed By: #### L [id number] ####Documentation Writer: NADIA FRENCH ([id number])[facility] ([facility])[address] [place] [address] MCHC 28.2 % Low 30.5-36.0 [facility] Comment on above: Performed By: #### L [id number] ####Documentation Writer: NADIA FRENCH ([id number])[facility])[address] [place] [address] MCV (RBC) [Entitic vol] 84.8 fL Normal 77.0-99.0 [facility] Comment on above: Performed By: #### L [id number] ####Documentation Writer: NADIA FRECNH ([id number])[facility])[address] [place] [address] Monocytes (Bld) [#/Vol] 0.7 10*3/uL Normal 0.0-0.9 [facility] Comment on above: Performed By: #### L [id number] ####Documentation Writer: NADIA FRENCH ([id number])[facility] ([facility])[address] [place] [address] Monocytes/100 WBC (Bld) 7.4 % Normal 5.0-13.0 [facility] Comment on above: Performed By: #### L [id number] ####Documentation Writer: NADIA FRENCH ([id number])[facility])[address] [place] [address] NEUTROPHILS ABSOLUTE 6.7 10*3/uL Normal 1.8-7.5 [facility] Comment on above: Performed By: #### L [id number] ####Documentation Writer: NADIA FRENCH ([id number])[facility])[address] [place] [address] Neutrophils/100 WBC (Bld) 73.2 % Normal 38.0-82.0 [facility] Comment on above: Performed By: #### L [id number] ####Documentation Writer: NADIA FRENCH ([id number])[facility] [address] NRBC 0.0 /100 WBCs Normal 0.0-2.0 [facility] Comment on above: Performed By: #### L [id number] ####Documentation Writer: NADIA FRENCH ([id number])[facility])[address] [place] [address] Platelet mean volume (Bld) [Entitic vol] 9.5 fL Normal 9.0-12.7 [facility] Comment on above: Performed By: #### L [id number] ####Documentation Writer: NADIA FRENCH ([id number])[facility])[address] [place] [address] Platelets (Bld) [#/Vol] 398 10*3/uL Normal 140-440 [facility] Comment on above: Performed By: #### L [id number] ####Documentation Writer: NADIA FRENCH ([id number])[facility])[address] [place] [address] RBC (Bld) [#/Vol] 3.35 10*6/uL Low 3.80-5.20 [facility] Comment on above: Performed By: #### L [id number] ####Documentation Writer: NADIA FRENCH ([id number])[facility])[address] [place] [address] WBC (Bld) [#/Vol] 9.1 10*3/uL Normal 3.6-10.7 [facility] Comment on above: Performed By: #### L [id number] ####Documentation Writer: NADIA FRENCH ([id number])[facility])[address] [place] [address] Nursing Noteon 06-29-2025 Nursing Note Patient/family given discharge paperwork/instructions. IV removed. Medications delivered from [facility] pharmacy. Son at bedside. Transport request in. All questions and concerns addressed. Normal [facility] Progress Noteon 06-29-2025 Progress Note Normal [facility] Progress Note Normal [facility] Progress Note Normal [facility] Progress Note Normal [facility] Progress Note Normal [facility] Progress Note Normal [facility] [id number] 06-28-2025 [id number] Normal [facility] Anesthesia Noteon 06-28-2025 Anesthesia Note Normal [facility] BASIC METABOLIC PANELon 10-0 Anion gap [Moles/Vol] 10 mmol/L Normal 3-13 [facility] Comment on above: Performed By: #### L [id number] ####Documentation Writer: NADIA FRENCH ([id number])[facility])[address] [place] [address] Calcium [Mass/Vol] 8.2 mg/dL Low 8.8-10.0 [facility] Comment on above: Performed By: #### L [id number] ####Documentation Writer: NADIA FRENCH ([id number])[facility])[address] [place] [address] Chloride [Moles/Vol] 104 mmol/L Normal 98-107 [facility] Comment on above: Performed By: #### L [id number] ####Documentation Writer: NADIA FRENCH ([id number])[facility])[address] [place] [address] CO2 [Moles/Vol] 29 mmol/L Normal 23-31 [facility] Comment on above: Performed By: #### L AB15 ####Documentation Writer: NADIA FRENCH ([id number])[facility])[address] [place] [address] Creatinine [Mass/Vol] 1.18 mg/dL High 0.57-1.11 [facility] Comment on above: Performed By: #### L [id number] ####Documentation Writer: NADIA FRENCH ([id number])[facility])[address] [place] [address] [place] GLOMERULAR FILTRATION RATE ML/MIN/1.73 SQ M.PREDICTED 52.7 mL/min/1.73m*2 Low >60.0 [facility] Comment on above: Result Comment: Calc ulation based on the Chronic Kidney Disease Epidemiology Collaboration (CKD-EPI) equation refit without adjustment for race Performed By: #### L [id number] ####Documentation Writer: NADIA FRENCH ([id number])[facility])[address] [place] [address] Glucose [Mass/Vol] 101 mg/dL Normal 82-115 [facility] Comment on above: Performed By: #### L [id number] ####Documentation Writer: NADIA FRENCH ([id number])[facility])[address] [place] [address] Potassium [Moles/Vol] 4.2 mmol/L Normal 3.5-5.1 [facility] Comment on above: Result Comment: [facility] potassium values may be up to 0.5 mmol/L lower than serum values. Performed By: #### L [id number] ####Documentation Writer: NADIA FRENCH ([id number])[address] Sodium [Moles/Vol] 143 mmol/L Normal 136-145 [facility] Comment on above: Performed By: #### L [id number] ####Documentation Writer: NADIA FRENCH ([id number])[address] Urea nitrogen [Mass/Vol] 47 mg/dL High 9-23 [facility] Comment on above: Performed By: #### L [id number] ####Documentation Writer: NADIA FRENCH ([id number])[address] Basic metabolic 1998 panelon 06-28-2025 Anion gap [Moles/Vol] 10 mmol/L 3 - 13 mmol/L [facility] Calcium [Mass/Vol] 8.2 mg/dL Low 8.8 - 10. 0 mg/dL [facility] Chloride [Moles/Vol] 104 mmol/L 98 - 10 7 mmol/L [facility] CO2 [Moles/Vol] 29 mmol/L 23 - 31 mmol/L [facility] Creatinine [Mass/Vol] 1.18 mg/dL High 0.57 - 1.11 mg/dL [facility] GFR/1.73 sq M.predicted (S/P/Bld) [Vol rate/Area] 52.7 mL/min Low - PINF [facility] Glucose [Mass/Vol] 101 mg/dL 82 - 115 mg/dL [facility] Interpretation and review of laboratory results Abnormal [facility] Potassium [Moles/Vol] 4.2 mmol/L 3.5 - 5.1 mmol/L [facility] Sodium [Moles/Vol] 143 mmol/L 136 - 145 mmol/L [facility] Urea nitrogen [Mass/Vol] 47 mg/dL High 9 - 23 mg/dL [facility] CBC W Auto Differential pane l (Bld)on 06-28-2025 Basophils (Bld) [#/Vol] 0.1 10*3/uL 0.0 - 0.2 10*3/uL [facility] Basophils/100 WBC (Bld) 1 % 0.0 - 2.0 % [facility] Eosinophils (Bld) [#/Vol] 0.3 10*3/uL 0.0 - 0.5 10*3/uL [facility] Eosinophils/100 WBC (Bld) 3.7 % 0.0 - 6.0 % [facility] Erythrocyte distribution width (RBC) [Ratio] 21.3 % High 11.5 - 15.0 % [facility] Hematocrit (Bld) [Volume fraction] 28.1 % Low 35.0 - 47.0 % [facility] Hemoglobin (Bld) [Mass/Vol] 8.1 g/dL Low 11.7 - 16.0 g/dL [facility] Immature granulocytes (Bld) [#/Vol] 0 10*3/uL NINF - 0.1 10*3/uL [facility] Immature granulocytes/100 WBC (Bld) 0.2 % 0.0 - 2.0 % [facility] Interpretation and review of laboratory results Abnormal [facility] Lymphocytes (Bld) [#/Vol] 1.9 10*3/uL 1.0 - 4.3 10*3/uL [facility] Lymphocytes/100 WBC (Bld) 23.7 % 15.0 - 45.0 % [facility] MCH (RBC) [Entitic mass] 23.8 pg Low 26.0 - 34.0 pg [facility] MCHC (RBC) [Mass/Vol] 28.8 % Low 30.5 - 36.0 % [facility] MCV (RBC) [Entitic vol] 82.4 fL 77.0 - 99.0 fL [facility] Monocytes (Bld) [#/Vol] 0.7 10*3/uL 0.0 - 0.9 10*3/uL [facility] Monocytes/100 WBC (Bld) 8.4 % 5.0 - 13.0 % [facility] Neutrophils (Bld) [#/Vol] 5.1 10*3/uL 1.8 - 7.5 10*3/uL [facility] Neutrophils/100 WBC (Bld) 63 % 38.0 - 82.0 % [facility] Nucleated RBC/100 WBC (Bld) [Ratio] 0 % [facility] Platelet mean volume (Bld) [Entitic vol] 9.7 fL 9.0 - 12.7 fL [facility] Platelets (Bld) [#/Vol] 441 10*3/uL High 140 - 440 10*3/uL [facility] RBC (Bld) [#/Vol] 3.41 10*6/uL Low 3.80 - 5.20 10*6/uL [facility] WBC (Bld) [#/Vol] 8 10*3/uL 3.6 - 10.7 10*3/uL [facility] CBC WITH AUTO DIFFERENTIALon 06-28-2025 Basophils (Bld) [#/Vol] 0.1 10*3/uL Normal 0.0-0.2 [facility] Comment on above: Performed By: #### L [id number] ####Documentation Writer: NADIA FRENCH ([id number])[facility] ([facility])[address] [place] [address] Basophils/100 WBC (Bld) 1.0 % Normal 0.0-2.0 [facility] Comment on above: Performed By: #### L [id number] ####Documentation Writer: NADIA FRENCH ([id number])[facility] ([facility])[address] [place] [address] Eosinophils (Bld) [#/Vol] 0.3 10*3/uL Normal 0.0-0.5 [facility] Comment on above: Performed By: #### L [id number] ####Documentation Writer: NADIA FRENCH ([id number])[facility])[address] [place] [address] Eosinophils/100 WBC (Bld) 3.7 % Normal 0.0-6.0 [facility] Comment on above: Performed By: #### L [id number] ####Documentation Writer: NADIA FRENCH ([id number])[facility])[address] [place] [address] Erythrocyte distribution width (RBC) [Ratio] 21.3 % High 11.5-15.0 [facility] Comment on above: Performed By: #### L [id number] ####Documentation Writer: NADIA FRENCH ([id number])[address] Hematocrit (Bld) [Volume fraction] 28.1 % Low 35.0-47.0 [facility] Comment on above: Performed By: #### L [id number] ####Documentation Writer: NADIA FRENCH ([id number])[address] Hemoglobin (Bld) [Mass/Vol] 8.1 g/dL Low 11.7-16.0 [facility] Comment on above: Performed By: #### L [id number] ####Documentation Writer: NADIA FRENCH ([id number])[facility])[address] [place] [address] IMMATURE GRANS % 0.2 % Normal 0.0-2.0 [facility] Comment on above: Performed By: #### L [id number] ####Documentation Writer: NADIA FRENCH ([id number])[address] IMMATURE GRANS ABSOLUTE 0.0 10*3/uL Normal <0.1 [facility] Comment on above: Performed By: #### L [id number] ####Documentation Writer: NADIA FRENCH ([id number])[place] [address] [place] Lymphocytes (Bld) [#/Vol] 1.9 10*3/uL Normal 1.0-4.3 [facility] Comment on above: Performed By: #### L [id number] ####Documentation Writer: NADIA FRENCH ([id number])[facility])[address] [place] [address] Lymphocytes/100 WBC (Bld) 23.7 % Normal 15.0-45.0 [facility] Comment on above: Performed By: #### L [id number] ####Documentation Writer: NADIA FRENCH ([id number])[facility])[address] [place] [address] MCH (RBC) [Entitic mass] 23.8 pg Low 26.0-34.0 [facility] Comment on above: Performed By: #### L [id number] ####Documentation Writer: NADIA FRENCH ([id number])[facility])[address] [place] [address] MCHC 28.8 % Low 30.5-36.0 [facility] Comment on above: Performed By: #### L [id number] ####Documentation Writer: NADIA FRENCH ([id number])[facility])[address] [place] [address] MCV (RBC) [Entitic vol] 82.4 fL Normal 77.0-99.0 [facility] Comment on above: Performed By: #### L [id number] ####Documentation Writer: NADIA FRENCH ([id number])[facility])[address] [place] [address] Monocytes (Bld) [#/Vol] 0.7 10*3/uL Normal 0.0-0.9 [facility] Comment on above: Performed By: #### L [id number] ####Documentation Writer: NADIA FRENCH ([id number])[facility])[address] [place] [address] Monocytes/100 WBC (Bld) 8.4 % Normal 5.0-13.0 [facility] Comment on above: Performed By: #### L [id number] ####Documentation Writer: NADIA FRENCH ([id number])[facility] ([facility])[address] [place] [address] NEUTROPHILS ABSOLUTE 5.1 10*3/uL Normal 1.8-7.5 [facility] Comment on above: Performed By: #### L [id number] ####Documentation Writer: NADIA FRENCH ([id number])[facility] ([facility])[address] [place] [address] Neutrophils/100 WBC (Bld) 63.0 % Normal 38.0-82.0 [facility] Comment on above: Performed By: #### L [id number] ####Documentation Writer: NADIA FRENCH ([id number])[facility] ([facility])[address] [place] [address] NRBC 0.0 /100 WBCs Normal 0.0-2.0 [facility] Comment on above: Performed By: #### L [id number] ####Documentation Writer: NADIA FRENCH ([id number])[facility] ([facility])[address] [place] [address] Platelet mean volume (Bld) [Entitic vol] 9.7 fL Normal 9.0-12.7 [facility] Comment on above: Performed By: #### L [id number] ####Documentation Writer: NADIA FRENCH ([id number])[facility] ([facility])[address] [place] [address] Platelets (Bld) [#/Vol] 441 10*3/uL High 140-440 [facility] Comment on above: Performed By: #### L [id number] ####Documentation Writer: NADIA FRENCH ([id number])[facility] ([facility])[address] [place] [address] RBC (Bld) [#/Vol] 3.41 10*6/uL Low 3.80-5.20 [facility] Comment on above: Performed By: #### L [id number] ####Documentation Writer: NADIA FRENCH ([id number])[facility] ([facility])[address] [place] [address] WBC (Bld) [#/Vol] 8.0 10*3/uL Normal 3.6-10.7 [facility] Comment on above: Performed By: #### L [id number] ####Documentation Writer: NADIA FRENCH ([id number])[facility])[address] [place] [address] Nursing Noteon 06-28-2025 Nursing Note Report called to Saul ramirez RN. All questions answered Normal [facility] Nursing Note Patient family/visit or updated by RN at this time. Normal [facility] Nursing Note Dr mirza at [facility] e to check on patient. VS stable on Bipap 07/03 7L. Orders to begin to wean off bipap. Normal [facility] Nursing Note Normal [facility] Nursing Note Normal [facility] Op Noteon 06-28-2025 Op Note Normal [facility] Progress Noteon 06-28-2025 Progress Note Normal [facility] Progress Note PHYSICAL THERAPY [facility] Name/MRN: Nancy Delacruz ([id number]) Date: 06/28/2025 Treatment is being deferred at present because pt is currently off of the floor . Shant Shea, PT Normal [facility] Progress Note Normal [facility] Progress Note Normal [facility] [id number] 06-27-2025 [id number] Normal [facility] 36on 06-27-2025 36 Can we request patie nts chest CT's from the hospital in [place]? Normal [facility] Anesthesia Noteon 06-27-2025 Anesthesia Note Normal [facility] BASIC METABOLIC PANELon 10-0 Anion gap [Moles/Vol] 8 mmol/L Normal 3-13 [facility] Comment on above: Performed By: #### L [id number] ####Documentation Writer: NADIA FRENCH ([id number])[facility] ([facility])[address] [place] [address] Calcium [Mass/Vol] 8.3 mg/dL Low 8.8-10.0 [facility] Comment on above: Performed By: #### L [id number] ####Documentation Writer: NADIA FRENCH ([id number])[facility])[address] [place] [address] Chloride [Moles/Vol] 104 mmol/L Normal 98-107 [facility] Comment on above: Performed By: #### L [id number] ####Documentation Writer: NADIA FRENCH ([id number])[facility] ([facility])[address] [place] [address] CO2 [Moles/Vol] 29 mmol/L Normal 23-31 [facility] Comment on above: Performed By: #### L [id number] ####Documentation Writer: NADIA FRENCH ([id number])[facility])[address] [place] [address] Creatinine [Mass/Vol] 1.10 mg/dL Normal 0.57-1.11 [facility] Comment on above: Performed By: #### L AB15 ####Documentation Writer: NADIA FRENCH ([id number])[facility] ([facility])[address] [place] [address] [place] GLOMERULAR FILTRATION RATE ML/MIN/1.73 SQ M.PREDICTED 57.3 mL/min/1.73m*2 Low >60.0 [facility] Comment on above: Result Comment: Calc ulation based on the Chronic Kidney Disease Epidemiology Collaboration (CKD-EPI) equation refit without adjustment for race Performed By: #### L [id number] ####Documentation Writer: NADIA FRENCH ([id number])[facility] ([facility])[address] [place] [address] [place] Glucose [Mass/Vol] 96 mg/dL Normal 82-115 [facility] Comment on above: Performed By: #### L [id number] ####Documentation Writer: NADIA FRENCH ([id number])[facility] ([facility])[address] [place] [address] [place] Potassium [Moles/Vol] 3.9 mmol/L Normal 3.5-5.1 [facility] Comment on above: Result Comment: [facility] potassium values may be up to 0.5 mmol/L lower than serum values. Performed By: #### L AB15 ####Documentation Writer: NADIA FRENCH ([id number])[facility] ([facility])[address] [place] [address] Sodium [Moles/Vol] 141 mmol/L Normal 136-145 [facility] Comment on above: Performed By: #### L [id number] ####Documentation Writer: NADIA FRENCH ([id number])[facility] ([facility])[address] [place] [address] Urea nitrogen [Mass/Vol] 45 mg/dL High 9-23 [facility] Comment on above: Performed By: #### L [id number] ####Documentation Writer: NADIA FRENCH ([id number])[facility] ([facility])[address] [place] [address] Basic metabolic 1998 panelon 06-27-2025 Anion gap [Moles/Vol] 8 mmol/L 3 - 13 mmol/L [facility] Calcium [Mass/Vol] 8.3 mg/dL Low 8.8 - 10. 0 mg/dL [facility] Chloride [Moles/Vol] 104 mmol/L 98 - 10 7 mmol/L [facility] CO2 [Moles/Vol] 29 mmol/L 23 - 31 mmol/L [facility] Creatinine [Mass/Vol] 1.1 mg/dL 0.57 - 1.11 mg/dL [facility] GFR/1.73 sq M.predicted (S/P/Bld) [Vol rate/Area] 57.3 mL/min Low - PINF [facility] Glucose [Mass/Vol] 96 mg/dL 82 - 115 mg/dL [facility] Interpretation and review of laboratory results Abnormal [facility] Potassium [Moles/Vol] 3.9 mmol/L 3.5 - 5.1 mmol/L [facility] Sodium [Moles/Vol] 141 mmol/L 136 - 145 mmol/L [facility] Urea nitrogen [Mass/Vol] 45 mg/dL High 9 - 23 mg/dL [facility] CBC W Auto Differential pane l (Bld)on 06-27-2025 Basophils (Bld) [#/Vol] 0.1 10*3/uL 0.0 - 0.2 10*3/uL [facility] Basophils/100 WBC (Bld) 1 % 0.0 - 2.0 % [facility] Eosinophils (Bld) [#/Vol] 0.3 10*3/uL 0.0 - 0.5 10*3/uL [facility] Eosinophils/100 WBC (Bld) 4.9 % 0.0 - 6.0 % [facility] Erythrocyte distribution width (RBC) [Ratio] 21 % High 11.5 - 15.0 % [facility] Hematocrit (Bld) [Volume fraction] 28.5 % Low 35.0 - 47.0 % [facility] Hemoglobin (Bld) [Mass/Vol] 8.1 g/dL Low 11.7 - 16.0 g/dL [facility] Immature granulocytes (Bld) [#/Vol] 0 10*3/uL NINF - 0.1 10*3/uL [facility] Immature granulocytes/100 WBC (Bld) 0.1 % 0.0 - 2.0 % [facility] Interpretation and review of laboratory results Abnormal [facility] Lymphocytes (Bld) [#/Vol] 1.5 10*3/uL 1.0 - 4.3 10*3/uL [facility] Lymphocytes/100 WBC (Bld) 21.4 % 15.0 - 45.0 % [facility] MCH (RBC) [Entitic mass] 23.7 pg Low 26.0 - 34.0 pg [facility] MCHC (RBC) [Mass/Vol] 28.4 % Low 30.5 - 36.0 % [facility] MCV (RBC) [Entitic vol] 83.3 fL 77.0 - 99.0 fL [facility] Monocytes (Bld) [#/Vol] 0.6 10*3/uL 0.0 - 0.9 10*3/uL [facility] Monocytes/100 WBC (Bld) 9 % 5.0 - 13.0 % [facility] Neutrophils (Bld) [#/Vol] 4.3 10*3/uL 1.8 - 7.5 10*3/uL [facility] Neutrophils/100 WBC (Bld) 63.6 % 38.0 - 82.0 % [facility] Nucleated RBC/100 WBC (Bld) [Ratio] 0 % [facility] Platelet mean volume (Bld) [Entitic vol] 9.5 fL 9.0 - 12.7 fL [facility] Platelets (Bld) [#/Vol] 424 10*3/uL 140 - 440 10*3/uL [facility] RBC (Bld) [#/Vol] 3.42 10*6/uL Low 3.80 - 5.20 10*6/uL [facility] WBC (Bld) [#/Vol] 6.8 10*3/uL 3.6 - 10.7 10*3/uL [facility] CBC WITH AUTO DIFFERENTIALon 06-27-2025 Basophils (Bld) [#/Vol] 0.1 10*3/uL Normal 0.0-0.2 [facility] Comment on above: Performed By: #### L [id number] ####Documentation Writer: NADIA FRENCH ([id number])[facility])[address] [place] [address] Basophils/100 WBC (Bld) 1.0 % Normal 0.0-2.0 [facility] Comment on above: Performed By: #### L [id number] ####Documentation Writer: NADIA FRENCH ([id number])[facility])[address] [place] [address] Eosinophils (Bld) [#/Vol] 0.3 10*3/uL Normal 0.0-0.5 [facility] Comment on above: Performed By: #### L [id number] ####Documentation Writer: NADIA FRENCH ([id number])[facility])[address] [place] [address] Eosinophils/100 WBC (Bld) 4.9 % Normal 0.0-6.0 [facility] Comment on above: Performed By: #### L [id number] ####Documentation Writer: NADIA FRENCH ([id number])[facility])[address] [place] [address] Erythrocyte distribution width (RBC) [Ratio] 21.0 % High 11.5-15.0 [facility] Comment on above: Performed By: #### L [id number] ####Documentation Writer: NADIA FRENCH ([id number])[facility])[address] [place] [address] Hematocrit (Bld) [Volume fraction] 28.5 % Low 35.0-47.0 [facility] Comment on above: Performed By: #### L [id number] ####Documentation Writer: NADIA FRENCH ([id number])[facility])[address] [place] [address] Hemoglobin (Bld) [Mass/Vol] 8.1 g/dL Low 11.7-16.0 [facility] Comment on above: Performed By: #### L [id number] ####Documentation Writer: NADIA FRENCH ([id number])[address] IMMATURE GRANS % 0.1 % Normal 0.0-2.0 [facility] Comment on above: Performed By: #### L [id number] ####Documentation Writer: NADIA FRENCH ([id number])[address] IMMATURE GRANS ABSOLUTE 0.0 10*3/uL Normal <0.1 [facility] Comment on above: Performed By: #### L [id number] ####Documentation Writer: NADIA FRENCH ([id number])[address] Lymphocytes (Bld) [#/Vol] 1.5 10*3/uL Normal 1.0-4.3 [facility] Comment on above: Performed By: #### L [id number] ####Documentation Writer: NADIA FRENCH ([id number])[facility])[address] [place] [address] Lymphocytes/100 WBC (Bld) 21.4 % Normal 15.0-45.0 [facility] Comment on above: Performed By: #### L [id number] ####Documentation Writer: NADIA FRENCH ([id number])[facility])[address] [place] [address] MCH (RBC) [Entitic mass] 23.7 pg Low 26.0-34.0 [facility] Comment on above: Performed By: #### L [id number] ####Documentation Writer: NADIA FRENCH ([id number])[facility])[address] [place] [address] MCHC 28.4 % Low 30.5-36.0 [facility] Comment on above: Performed By: #### L [id number] ####Documentation Writer: NADIA FRENCH ([id number])[facility])[address] [place] [address] MCV (RBC) [Entitic vol] 83.3 fL Normal 77.0-99.0 [facility] Comment on above: Performed By: #### L [id number] ####Documentation Writer: NADIA FRENCH ([id number])[facility])[address] [place] [address] Monocytes (Bld) [#/Vol] 0.6 10*3/uL Normal 0.0-0.9 [facility] Comment on above: Performed By: #### L [id number] ####Documentation Writer: NADIA FRENCH ([id number])[facility])[address] [place] [address] Monocytes/100 WBC (Bld) 9.0 % Normal 5.0-13.0 [facility] Comment on above: Performed By: #### L [id number] ####Documentation Writer: NADIA FRENCH ([id number])[facility])[address] [place] [address] NEUTROPHILS ABSOLUTE 4.3 10*3/uL Normal 1.8-7.5 [facility] Comment on above: Performed By: #### L [id number] ####Documentation Writer: NADIA FRENCH ([id number])[facility])[address] [place] [address] Neutrophils/100 WBC (Bld) 63.6 % Normal 38.0-82.0 [facility] Comment on above: Performed By: #### L [id number] ####Documentation Writer: NADIA FRENCH ([id number])[facility])[address] [place] [address] NRBC 0.0 /100 WBCs Normal 0.0-2.0 [facility] Comment on above: Performed By: #### L [id number] ####Documentation Writer: NADIA FRENCH ([id number])[facility])[address] [place] [address] Platelet mean volume (Bld) [Entitic vol] 9.5 fL Normal 9.0-12.7 [facility] Comment on above: Performed By: #### L [id number] ####Documentation Writer: NADIA FRENCH ([id number])[facility])[address] [place] [address] Platelets (Bld) [#/Vol] 424 10*3/uL Normal 140-440 [facility] Comment on above: Performed By: #### L [id number] ####Documentation Writer: NADIA FRENCH ([id number])[facility])[address] [place] [address] RBC (Bld) [#/Vol] 3.42 10*6/uL Low 3.80-5.20 [facility] Comment on above: Performed By: #### L [id number] ####Documentation Writer: NADIA FRENCH ([id number])[facility])[address] [place] [address] WBC (Bld) [#/Vol] 6.8 10*3/uL Normal 3.6-10.7 [facility] Comment on above: Performed By: #### L [id number] ####Documentation Writer: NADIA FRENCH ([id number])[facility])[address] [place] [address] ECG 12-LEADon 06-27-2025 ECG 12-LEAD IMPRESSION: Atrial fibrillation LVH with secondary repolarization abnormality Compared to ECG 06/17/2025 16:06:[address] and T abn Electronically Signed On 06-27-2025 12:44:41 EDT by Yohan Gonzalez Normal [facility] No Panel InformationOrdered By: Yohan Gonzalez on 06-27-2025 P [place] 0 degrees [facility] Work Phone: VA Interval 0 ms [facility] Work Phone: QRS [place] -17 degrees [facility] Work Phone: QRSD Interval 82 ms [facility] Work Phone: QT Interval 374 ms [facility] Work Phone: QTC Interval 459 ms [facility] Work Phone: T Wave [place] 166 degrees [facility] Work Phone: [facility] Work Phone: No Panel Informationon 06-27 CV EPIPHANY [facility] Progress Noteon 06-27-2025 Progress Note Normal [facility] Progress Note Normal [facility] Vital signsOrdered By: Yohan Gonzalez on 06-27-2025 Heart rate 90 /min bpm [facility] Work Phone: BASIC METABOLIC PANELon 05-30 Anion gap [Moles/Vol] 8 mmol/L Normal 3-13 [facility] Comment on above: Performed By: #### L [id number] ####Documentation Writer: NADIA FRENCH ([id number])[address] Calcium [Mass/Vol] 8.5 mg/dL Low 8.8-10.0 [facility] Comment on above: Performed By: #### L AB15 ####Documentation Writer: NADIA FRENCH ([id number])[address] Chloride [Moles/Vol] 104 mmol/L Normal 98-107 [facility] Comment on above: Performed By: #### L AB15 ####Documentation Writer: NADIA FRENCH ([id number])[facility])[address] [place] [address] CO2 [Moles/Vol] 30 mmol/L Normal 23-31 [facility] Comment on above: Performed By: #### L AB15 ####Documentation Writer: NADIA FRENCH ([id number])[facility])[address] [place] [address] Creatinine [Mass/Vol] 1.24 mg/dL High 0.57-1.11 [facility] Comment on above: Performed By: #### L AB15 ####Documentation Writer: NADIA FRENCH ([id number])[facility])[address] [place] [address] GLOMERULAR FILTRATION RATE ML/MIN/1.73 SQ M.PREDICTED 49.6 mL/min/1.73m*2 Low >60.0 [facility] Comment on above: Result Comment: Calc ulation based on the Chronic Kidney Disease Epidemiology Collaboration (CKD-EPI) equation refit without adjustment for race Performed By: #### L AB15 ####Documentation Writer: NADIA FRENCH ([id number])[facility] ([facility])[address] [place] [address] [place] Glucose [Mass/Vol] 98 mg/dL Normal 82-115 [facility] Comment on above: Performed By: #### L AB15 ####Documentation Writer: NADIA FRENCH ([id number])[facility])[address] [place] [address] Potassium [Moles/Vol] 3.9 mmol/L Normal 3.5-5.1 [facility] Comment on above: Result Comment: [facility] potassium values may be up to 0.5 mmol/L lower than serum values. Performed By: #### L AB15 ####Documentation Writer: NADIA FRENCH ([id number])[facility])[address] [place] [address] [place] Sodium [Moles/Vol] 142 mmol/L Normal 136-145 [facility] Comment on above: Performed By: #### L AB15 ####Documentation Writer: NADIA FRENCH ([id number])[facility])[address] [place] [address] Urea nitrogen [Mass/Vol] 46 mg/dL High 9-23 [facility] Comment on above: Performed By: #### L AB15 ####Documentation Writer: NADIA FRENCH ([id number])[facility] ([facility])[address] [place] [address] Basic metabolic 1998 panelon 06-26-2025 Anion gap [Moles/Vol] 8 mmol/L 3 - 13 mmol/L [facility] Calcium [Mass/Vol] 8.5 mg/dL Low 8.8 - 10. 0 mg/dL [facility] Chloride [Moles/Vol] 104 mmol/L 98 - 10 7 mmol/L [facility] CO2 [Moles/Vol] 30 mmol/L 23 - 31 mmol/L [facility] Creatinine [Mass/Vol] 1.24 mg/dL High 0.57 - 1.11 mg/dL [facility] GFR/1.73 sq M.predicted (S/P/Bld) [Vol rate/Area] 49.6 mL/min Low - PINF [facility] Glucose [Mass/Vol] 98 mg/dL 82 - 115 mg/dL [facility] Interpretation and review of laboratory results Abnormal [facility] Potassium [Moles/Vol] 3.9 mmol/L 3.5 - 5.1 mmol/L [facility] Sodium [Moles/Vol] 142 mmol/L 136 - 145 mmol/L [facility] Urea nitrogen [Mass/Vol] 46 mg/dL High 9 - 23 mg/dL [facility] CBC W Auto Differential pane l (Bld)on 06-26-2025 Basophils (Bld) [#/Vol] 0.1 10*3/uL 0.0 - 0.2 10*3/uL [facility] Basophils/100 WBC (Bld) 1 % 0.0 - 2.0 % [facility] Eosinophils (Bld) [#/Vol] 0.3 10*3/uL 0.0 - 0.5 10*3/uL [facility] Eosinophils/100 WBC (Bld) 3.6 % 0.0 - 6.0 % [facility] Erythrocyte distribution width (RBC) [Ratio] 21.5 % High 11.5 - 15.0 % [facility] Hematocrit (Bld) [Volume fraction] 27.3 % Low 35.0 - 47.0 % [facility] Hemoglobin (Bld) [Mass/Vol] 7.8 g/dL Low 11.7 - 16.0 g/dL [facility] Immature granulocytes (Bld) [#/Vol] 0 10*3/uL NINF - 0.1 10*3/uL [facility] Immature granulocytes/100 WBC (Bld) 0.5 % 0.0 - 2.0 % [facility] Interpretation and review of laboratory results Abnormal [facility] Lymphocytes (Bld) [#/Vol] 1.4 10*3/uL 1.0 - 4.3 10*3/uL [facility] Lymphocytes/100 WBC (Bld) 17.1 % 15.0 - 45.0 % [facility] MCH (RBC) [Entitic mass] 23.8 pg Low 26.0 - 34.0 pg [facility] MCHC (RBC) [Mass/Vol] 28.6 % Low 30.5 - 36.0 % [facility] MCV (RBC) [Entitic vol] 83.2 fL 77.0 - 99.0 fL [facility] Monocytes (Bld) [#/Vol] 0.7 10*3/uL 0.0 - 0.9 10*3/uL [facility] Monocytes/100 WBC (Bld) 8.3 % 5.0 - 13.0 % [facility] Neutrophils (Bld) [#/Vol] 5.6 10*3/uL 1.8 - 7.5 10*3/uL [facility] Neutrophils/100 WBC (Bld) 69.5 % 38.0 - 82.0 % [facility] Nucleated RBC/100 WBC (Bld) [Ratio] 0 % [facility] Platelet mean volume (Bld) [Entitic vol] 9.7 fL 9.0 - 12.7 fL [facility] Platelets (Bld) [#/Vol] 480 10*3/uL High 140 - 440 10*3/uL [facility] RBC (Bld) [#/Vol] 3.28 10*6/uL Low 3.80 - 5.20 10*6/uL [facility] WBC (Bld) [#/Vol] 8.1 10*3/uL 3.6 - 10.7 10*3/uL [facility] CBC WITH AUTO DIFFERENTIALon 06-26-2025 Basophils (Bld) [#/Vol] 0.1 10*3/uL Normal 0.0-0.2 [facility] Comment on above: Performed By: #### L [id number] ####Documentation Writer: NADIA FRENCH ([id number])[facility] ([facility])[address] [place] [address] Basophils/100 WBC (Bld) 1.0 % Normal 0.0-2.0 [facility] Comment on above: Performed By: #### L [id number] ####Documentation Writer: NADIA FRENCH ([id number])[facility])[address] [place] [address] Eosinophils (Bld) [#/Vol] 0.3 10*3/uL Normal 0.0-0.5 [facility] Comment on above: Performed By: #### L [id number] ####Documentation Writer: NADIA FRENCH ([id number])[facility] ([facility])[address] [place] [address] Eosinophils/100 WBC (Bld) 3.6 % Normal 0.0-6.0 [facility] Comment on above: Performed By: #### L [id number] ####Documentation Writer: NADIA FRENCH ([id number])[facility])[address] [place] [address] Erythrocyte distribution width (RBC) [Ratio] 21.5 % High 11.5-15.0 [facility] Comment on above: Performed By: #### L [id number] ####Documentation Writer: NADIA FRENCH ([id number])[facility])[address] [place] [address] Hematocrit (Bld) [Volume fraction] 27.3 % Low 35.0-47.0 [facility] Comment on above: Performed By: #### L [id number] ####Documentation Writer: NADIA FRENCH ([id number])[facility])[address] [place] [address] Hemoglobin (Bld) [Mass/Vol] 7.8 g/dL Low 11.7-16.0 [facility] Comment on above: Performed By: #### L [id number] ####Documentation Writer: NADIA FRENCH ([id number])[facility])[address] [place] [address] IMMATURE GRANS % 0.5 % Normal 0.0-2.0 [facility] Comment on above: Performed By: #### L [id number] ####Documentation Writer: NADIA FRENCH ([id number])[address] IMMATURE GRANS ABSOLUTE 0.0 10*3/uL Normal <0.1 [facility] Comment on above: Performed By: #### L [id number] ####Documentation Writer: NADIA FRENCH ([id number])[facility])[address] [place] [address] Lymphocytes (Bld) [#/Vol] 1.4 10*3/uL Normal 1.0-4.3 [facility] Comment on above: Performed By: #### L [id number] ####Documentation Writer: NADIA FRENCH ([id number])[address] Lymphocytes/100 WBC (Bld) 17.1 % Normal 15.0-45.0 [facility] Comment on above: Performed By: #### L [id number] ####Documentation Writer: NADIA FRENCH ([id number])[facility])[address] [place] [address] MCH (RBC) [Entitic mass] 23.8 pg Low 26.0-34.0 [facility] Comment on above: Performed By: #### L [id number] ####Documentation Writer: NADIA FRENCH ([id number])[facility])[address] [place] [address] MCHC 28.6 % Low 30.5-36.0 [facility] Comment on above: Performed By: #### L [id number] ####Documentation Writer: NADIA FRENCH ([id number])[facility] ([facility])[address] [place] [address] MCV (RBC) [Entitic vol] 83.2 fL Normal 77.0-99.0 [facility] Comment on above: Performed By: #### L [id number] ####Documentation Writer: NADIA FRENCH ([id number])[facility] ([facility])[address] [place] [address] Monocytes (Bld) [#/Vol] 0.7 10*3/uL Normal 0.0-0.9 [facility] Comment on above: Performed By: #### L [id number] ####Documentation Writer: NADIA FRENCH ([id number])[facility] ([facility])[address] [place] [address] Monocytes/100 WBC (Bld) 8.3 % Normal 5.0-13.0 [facility] Comment on above: Performed By: #### L [id number] ####Documentation Writer: NADIA FRENCH ([id number])[facility] ([facility])[address] [place] [address] NEUTROPHILS ABSOLUTE 5.6 10*3/uL Normal 1.8-7.5 [facility] Comment on above: Performed By: #### L [id number] ####Documentation Writer: NADIA FRENCH ([id number])[facility] ([facility])[address] [place] [address] Neutrophils/100 WBC (Bld) 69.5 % Normal 38.0-82.0 [facility] Comment on above: Performed By: #### L [id number] ####Documentation Writer: NADIA FRENCH ([id number])[facility] ([facility])[address] [place] [address] NRBC 0.0 /100 WBCs Normal 0.0-2.0 [facility] Comment on above: Performed By: #### L [id number] ####Documentation Writer: NADIA FRENCH ([id number])[facility])[address] [place] [address] Platelet mean volume (Bld) [Entitic vol] 9.7 fL Normal 9.0-12.7 [facility] Comment on above: Performed By: #### L [id number] ####Documentation Writer: NADIA FRENCH ([id number])[facility])[address] [place] [address] Platelets (Bld) [#/Vol] 480 10*3/uL High 140-440 [facility] Comment on above: Performed By: #### L [id number] ####Documentation Writer: NADIA FRENCH ([id number])[facility])[address] [place] [address] RBC (Bld) [#/Vol] 3.28 10*6/uL Low 3.80-5.20 [facility] Comment on above: Performed By: #### L [id number] ####Documentation Writer: NADIA FRENCH ([id number])[facility])[address] [place] [address] WBC (Bld) [#/Vol] 8.1 10*3/uL Normal 3.6-10.7 [facility] Comment on above: Performed By: #### L [id number] ####Documentation Writer: NADIA FRENCH ([id number])[address] Progress Noteon 06-26-2025 Progress Note Normal [facility] Progress Note Normal [facility] Progress Note Normal [facility] Progress Note Normal [facility] Progress Note Normal [facility] 36on 06-25-2025 36 Patient scheduled inpatient Bronch/BAL at [facility] 06/26/25 2:[address] Wagner. Pre-Bronch orders placed. Surgery scheduling . Provider will arrange outpatient follow up if needed at time of discharge. Normal [facility] Anesthesia Noteon 06-25-2025 Anesthesia Note Normal [facility] BASIC METABOLIC PANELon 05-29 Anion gap [Moles/Vol] 8 mmol/L Normal 3-13 [facility] Comment on above: Performed By: #### L [id number] ####Documentation Writer: NADIA FRENCH ([id number])[facility] ([facility])[address] [place] [address] Calcium [Mass/Vol] 8.2 mg/dL Low 8.8-10.0 [facility] Comment on above: Performed By: #### L [id number] ####Documentation Writer: NADIA FRENCH ([id number])[facility] ([facility])[address] [place] [address] Chloride [Moles/Vol] 106 mmol/L Normal 98-107 [facility] Comment on above: Performed By: #### L [id number] ####Documentation Writer: NADIA FRENCH ([id number])[facility] ([facility])[address] [place] [address] CO2 [Moles/Vol] 25 mmol/L Normal 23-31 [facility] Comment on above: Performed By: #### L [id number] ####Documentation Writer: NADIA FRENCH ([id number])[facility] ([facility])[address] [place] [address] Creatinine [Mass/Vol] 1.15 mg/dL High 0.57-1.11 [facility] Comment on above: Performed By: #### L [id number] ####Documentation Writer: NADIA FRENCH ([id number])[facility] ([facility])[address] [place] [address] [place] GLOMERULAR FILTRATION RATE ML/MIN/1.73 SQ M.PREDICTED 54.3 mL/min/1.73m*2 Low >60.0 [facility] Comment on above: Result Comment: Calc ulation based on the Chronic Kidney Disease Epidemiology Collaboration (CKD-EPI) equation refit without adjustment for race Performed By: #### L [id number] ####Documentation Writer: NADIA FRENCH ([id number])[facility] ([facility])[address] [place] [address] [place] Glucose [Mass/Vol] 99 mg/dL Normal 82-115 [facility] Comment on above: Performed By: #### L [id number] ####Documentation Writer: NADIA FRENCH ([id number])[facility] ([facility])[address] [place] [address] Potassium [Moles/Vol] 4.3 mmol/L Normal 3.5-5.1 [facility] Comment on above: Result Comment: [facility] potassium values may be up to 0.5 mmol/L lower than serum values. Performed By: #### L [id number] ####Documentation Writer: NADIA FRENCH ([id number])[facility] ([facility])[address] [place] [address] Sodium [Moles/Vol] 139 mmol/L Normal 136-145 [facility] Comment on above: Performed By: #### L [id number] ####Documentation Writer: NADIA FRENCH ([id number])[facility])[address] [place] [address] Urea nitrogen [Mass/Vol] 40 mg/dL High 9-23 [facility] Comment on above: Performed By: #### L [id number] ####Documentation Writer: NADIA FRENCH ([id number])[facility] ([facility])[address] [place] [address] BLOOD TYPE AND SCREEN GELon 06-25-2025 ABO GROUPING A [facility] Comment on above: Order Comment: Prepa ration for surgery this afternoon Performed By: #### L [id number] ####Documentation Writer: NADIA FRENCH ([id number])[facility] ([facility])[address] [place] [address] RH TYPE IN BLOOD Positive Normal [facility] Comment on above: Order Comment: Prepa ration for surgery this afternoon Performed By: #### L [id number] ####Documentation Writer: NADIA FRENCH ([id number])[facility] ([facility])[address] [place] [address] Basic metabolic 1998 panelon 06-25-2025 Anion gap [Moles/Vol] 8 mmol/L 3 - 13 mmol/L [facility] Calcium [Mass/Vol] 8.2 mg/dL Low 8.8 - 10. 0 mg/dL [facility] Chloride [Moles/Vol] 106 mmol/L 98 - 10 7 mmol/L [facility] CO2 [Moles/Vol] 25 mmol/L 23 - 31 mmol/L [facility] Creatinine [Mass/Vol] 1.15 mg/dL High 0.57 - 1.11 mg/dL [facility] GFR/1.73 sq M.predicted (S/P/Bld) [Vol rate/Area] 54.3 mL/min Low - PINF [facility] Glucose [Mass/Vol] 99 mg/dL 82 - 115 mg/dL [facility] Interpretation and review of laboratory results Abnormal [facility] Potassium [Moles/Vol] 4.3 mmol/L 3.5 - 5.1 mmol/L [facility] Sodium [Moles/Vol] 139 mmol/L 136 - 145 mmol/L [facility] Urea nitrogen [Mass/Vol] 40 mg/dL High 9 - 23 mg/dL [facility] Blood type and Crossmatch esperanza wagoner (Bld)on 06-25-2025 ABO group Nom (Bld) A [facility] Blood group antibody screen GEL Ql Negative [facility] D Ag Ql (RBC) Positive [facility] C-REACTIVE PROTEINon 025 CRP [Mass/Vol] 75.0 mg/L High <5.0 [facility] Comment on above: Performed By: #### L [id number], [id number] ####Documentation Writer: NADIA FRENCH ([id number])[address] CBC W Auto Differential pane l (Bld)Ordered By: Gisele Goncalves on 06-25-2025 Basophils (Bld) [#/Vol] 0.1 10*3/uL 0.0 - 0.2 10*3/uL [facility] Basophils/100 WBC (Bld) 0.7 % 0.0 - 2.0 % [facility] Eosinophils (Bld) [#/Vol] 0.3 10*3/uL 0.0 - 0.5 10*3/uL [facility] Eosinophils/100 WBC (Bld) 2.9 % 0.0 - 6.0 % [facility] Erythrocyte distribution width (RBC) [Ratio] 21.8 % High 11.5 - 15.0 % [facility] Hematocrit (Bld) [Volume fraction] 26.1 % Low 35.0 - 47.0 % [facility] Hemoglobin (Bld) [Mass/Vol] 7.5 g/dL Low 11.7 - 16.0 g/dL [facility] Immature granulocytes (Bld) [#/Vol] 0 10*3/uL NINF - 0.1 10*3/uL [facility] Immature granulocytes/100 WBC (Bld) 0.4 % 0.0 - 2.0 % [facility] Interpretation and review of laboratory results Abnormal [facility] Lymphocytes (Bld) [#/Vol] 1.5 10*3/uL 1.0 - 4.3 10*3/uL [facility] Lymphocytes/100 WBC (Bld) 16.1 % 15.0 - 45.0 % [facility] MCH (RBC) [Entitic mass] 24 pg Low 26.0 - 34.0 pg [facility] MCHC (RBC) [Mass/Vol] 28.7 % Low 30.5 - 36.0 % [facility] MCV (RBC) [Entitic vol] 83.4 fL 77.0 - 99.0 fL [facility] Monocytes (Bld) [#/Vol] 0.6 10*3/uL 0.0 - 0.9 10*3/uL [facility] Monocytes/100 WBC (Bld) 6.5 % 5.0 - 13.0 % [facility] Neutrophils (Bld) [#/Vol] 6.8 10*3/uL 1.8 - 7.5 10*3/uL [facility] Neutrophils/100 WBC (Bld) 73.4 % 38.0 - 82.0 % [facility] Nucleated RBC/100 WBC (Bld) [Ratio] 0 % [facility] Platelet mean volume (Bld) [Entitic vol] 9.4 fL 9.0 - 12.7 fL [facility] Platelets (Bld) [#/Vol] 452 10*3/uL High 140 - 440 10*3/uL [facility] RBC (Bld) [#/Vol] 3.13 10*6/uL Low 3.80 - 5.20 10*6/uL [facility] WBC (Bld) [#/Vol] 9.2 10*3/uL 3.6 - 10.7 10*3/uL [facility] CBC WITH AUTO DIFFERENTIALon 06-25-2025 Basophils (Bld) [#/Vol] 0.1 10*3/uL Normal 0.0-0.2 [facility] Comment on above: Performed By: #### L [id number] ####Documentation Writer: NADIA FRENCH ([id number])[facility])[address] [place] [address] [place] Basophils/100 WBC (Bld) 0.7 % Normal 0.0-2.0 [facility] Comment on above: Performed By: #### L [id number] ####Documentation Writer: NADIA FRENCH ([id number])[facility])[address] [place] [address] Eosinophils (Bld) [#/Vol] 0.3 10*3/uL Normal 0.0-0.5 [facility] Comment on above: Performed By: #### L [id number] ####Documentation Writer: NADIA FRENCH ([id number])[facility] ([facility])[address] [place] [address] Eosinophils/100 WBC (Bld) 2.9 % Normal 0.0-6.0 [facility] Comment on above: Performed By: #### L [id number] ####Documentation Writer: NADIA FRENCH ([id number])[facility])[address] [place] [address] Erythrocyte distribution width (RBC) [Ratio] 21.8 % High 11.5-15.0 [facility] Comment on above: Performed By: #### L [id number] ####Documentation Writer: NADIA FRENCH ([id number])[facility])[address] [place] [address] Hematocrit (Bld) [Volume fraction] 26.1 % Low 35.0-47.0 [facility] Comment on above: Performed By: #### L [id number] ####Documentation Writer: NADIA FRENCH ([id number])[facility] [address] Hemoglobin (Bld) [Mass/Vol] 7.5 g/dL Low 11.7-16.0 [facility] Comment on above: Performed By: #### L [id number] ####Documentation Writer: NADIA FRENCH ([id number])[facility])[address] [place] [address] IMMATURE GRANS % 0.4 % Normal 0.0-2.0 [facility] Comment on above: Performed By: #### L [id number] ####Documentation Writer: NADIA FRENCH ([id number])[address] IMMATURE GRANS ABSOLUTE 0.0 10*3/uL Normal <0.1 [facility] Comment on above: Performed By: #### L [id number] ####Documentation Writer: NADIA FRENCH ([id number])[facility])[address] [place] [address] Lymphocytes (Bld) [#/Vol] 1.5 10*3/uL Normal 1.0-4.3 [facility] Comment on above: Performed By: #### L [id number] ####Documentation Writer: NADIA FRENCH ([id number])[address] Lymphocytes/100 WBC (Bld) 16.1 % Normal 15.0-45.0 [facility] Comment on above: Performed By: #### L [id number] ####Documentation Writer: NADIA FRENCH ([id number])[facility])[address] [place] [address] MCH (RBC) [Entitic mass] 24.0 pg Low 26.0-34.0 [facility] Comment on above: Performed By: #### L [id number] ####Documentation Writer: NADIA FRENCH ([id number])[facility])[address] [place] [address] MCHC 28.7 % Low 30.5-36.0 [facility] Comment on above: Performed By: #### L [id number] ####Documentation Writer: NADIA FRENCH ([id number])[facility] ([facility])[address] [place] [address] MCV (RBC) [Entitic vol] 83.4 fL Normal 77.0-99.0 [facility] Comment on above: Performed By: #### L [id number] ####Documentation Writer: NADIA FRENCH ([id number])[facility])[address] [place] [address] Monocytes (Bld) [#/Vol] 0.6 10*3/uL Normal 0.0-0.9 [facility] Comment on above: Performed By: #### L [id number] ####Documentation Writer: NADIA FRENCH ([id number])[facility])[address] [place] [address] Monocytes/100 WBC (Bld) 6.5 % Normal 5.0-13.0 [facility] Comment on above: Performed By: #### L [id number] ####Documentation Writer: NADIA FRENCH ([id number])[facility])[address] [place] [address] NEUTROPHILS ABSOLUTE 6.8 10*3/uL Normal 1.8-7.5 [facility] Comment on above: Performed By: #### L [id number] ####Documentation Writer: NADIA FRENCH ([id number])[facility])[address] [place] [address] Neutrophils/100 WBC (Bld) 73.4 % Normal 38.0-82.0 [facility] Comment on above: Performed By: #### L [id number] ####Documentation Writer: NADIA FRENCH ([id number])[facility])[address] [place] [address] NRBC 0.0 /100 WBCs Normal 0.0-2.0 [facility] Comment on above: Performed By: #### L [id number] ####Documentation Writer: NADIA FRENCH ([id number])[facility] ([facility])[address] [place] [address] Platelet mean volume (Bld) [Entitic vol] 9.4 fL Normal 9.0-12.7 [facility] Comment on above: Performed By: #### L [id number] ####Documentation Writer: NADIA FRENCH ([id number])[facility] ([facility])[address] [place] [address] Platelets (Bld) [#/Vol] 452 10*3/uL High 140-440 [facility] Comment on above: Performed By: #### L [id number] ####Documentation Writer: NADIA FRENCH ([id number])[facility] ([facility])[address] [place] [address] RBC (Bld) [#/Vol] 3.13 10*6/uL Low 3.80-5.20 [facility] Comment on above: Performed By: #### L [id number] ####Documentation Writer: NADIA FRENCH ([id number])[facility])[address] [place] [address] WBC (Bld) [#/Vol] 9.2 10*3/uL Normal 3.6-10.7 [facility] Comment on above: Performed By: #### L [id number] ####Documentation Writer: NADIA FRENCH ([id number])[facility] ([facility])[address] [place] [address] CRP [Mass/Vol]on 06-25-2025 Interpretation and review of laboratory results Abnormal [facility] CT CHEST WO IV CONTRASTon CT CHEST WO IV CONTRAST Normal [facility] CT Chest WO contraston 06-25 [facility] Radiology Study observation (narrative) [facility] - Chemistry and C hemistry - challengeon 06-25-2025 CRP [Mass/Vol] 75 mg/L High NINF - 5.0 mg/L [facility] NT PRO BNPon 06-25-2025 Natriuretic peptide B (Bld) [Mass/Vol] 45104 pg/mL High <334 [facility] Comment on above: Result Comment: YESY [place] COMMENTS:NT-proBNP (pg/mL) Rule-In Rule-OutAge (y)/Presentation ??? <50 ???50-75 ???>75 ? AllAcute >450??? >900 ???>1800 ? <300Non-Acute ? >600 ???>600 ???>600 ? <125w/CKD ? >1200Patients with levels in the aguilera zone (between rule-out and rule-in levels) need extra physician attention and ancillary testing. Testing is performed on a new assay on a new. Performed By: #### L [id number], [id number] ####Documentation Writer: NADIA FRENCH ([id number])[facility] ([address] Natriuretic peptide B [Mass/ Vol]Ordered By: Abraham Busch on 06-25-2025 Interpretation and review of laboratory results Abnormal [facility] Natriuretic peptide B (Bld) [Mass/Vol] 86568 pg/mL High NINF - 334 pg/mL [facility] Nursing Noteon 06-25-2025 Nursing Note Surgery cancelled pe r Dr. Rodriguez/anesthesia due to respiratory status. Normal [facility] Nursing Note Pt O2 sat 85% on 12L venti mask. Dr. Rodriguez at bedside. Notified Dr. Akers. Will come eval pt. Non rebreather applied. Normal [facility] Progress Noteon 06-25-2025 Progress Note Normal [facility] Progress Note Normal [facility] Progress Note Normal [facility] Progress Note Normal [facility] XR CHEST 2 VIEWSon 5 XR CHEST 2 VIEWS Normal [facility] XR Chest 2 Viewson 5 [facility] SYSTEM [facility] RADI[facility] Rad[facility] Study observation (narrative) [facility] XR Chest 2 ViewsOrdered By: Fer Maya on 06-25-2025 [facility] Work Phone: BASIC METABOLIC PANELon 05-29 Anion gap [Moles/Vol] 5 mmol/L Normal 3-13 [facility] Comment on above: Performed By: #### L [id number] ####Documentation Writer: NADIA FRENCH ([id number])[facility] ([facility])[address] [place] [address] Calcium [Mass/Vol] 8.2 mg/dL Low 8.8-10.0 [facility] Comment on above: Performed By: #### L [id number] ####Documentation Writer: NADIA FRENCH ([id number])[facility] ([facility])[address] [place] [address] Chloride [Moles/Vol] 106 mmol/L Normal 98-107 [facility] Comment on above: Performed By: #### L [id number] ####Documentation Writer: NADIA FRENCH ([id number])[facility] ([facility])[address] [place] [address] CO2 [Moles/Vol] 26 mmol/L Normal 23-31 [facility] Comment on above: Performed By: #### L [id number] ####Documentation Writer: NADIA FRENCH ([id number])[facility] ([facility])[address] [place] [address] Creatinine [Mass/Vol] 1.06 mg/dL Normal 0.57-1.11 [facility] Comment on above: Performed By: #### L [id number] ####Documentation Writer: NADIA FRENCH ([id number])[facility] ([facility])[address] [place] [address] [place] GLOMERULAR FILTRATION RATE ML/MIN/1.73 SQ M.PREDICTED 59.9 mL/min/1.73m*2 Low >60.0 [facility] Comment on above: Result Comment: Calc ulation based on the Chronic Kidney Disease Epidemiology Collaboration (CKD-EPI) equation refit without adjustment for race Performed By: #### L [id number] ####Documentation Writer: NADIA FRENCH ([id number])[facility] ([facility])[address] [place] [address] Glucose [Mass/Vol] 80 mg/dL Low 82-115 [facility] Comment on above: Performed By: #### L [id number] ####Documentation Writer: NADIA FRENCH ([id number])[facility])[address] [place] [address] Potassium [Moles/Vol] 4.1 mmol/L Normal 3.5-5.1 [facility] Comment on above: Result Comment: [facility] potassium values may be up to 0.5 mmol/L lower than serum values. Performed By: #### L [id number] ####Documentation Writer: NADIA FRENCH ([id number])[facility] ([facility])[address] [place] [address] Sodium [Moles/Vol] 137 mmol/L Normal 136-145 [facility] Comment on above: Performed By: #### L [id number] ####Documentation Writer: NADIA FRENCH ([id number])[facility] ([facility])[address] [place] [address] Urea nitrogen [Mass/Vol] 32 mg/dL High 9-23 [facility] Comment on above: Performed By: #### L [id number] ####Documentation Writer: NADIA FRENCH ([id number])[facility])[address] [place] [address] Bacteria identified Aer cx N om (Lower resp)Ordered By: Stefania Orourke on 06-24-2025 Gram Stain Result Few Polymorphonuclea r leukocytes per low power field Abnormal [facility] Gram Stain Result Rare Epithelial cell s per low power field Abnormal [facility] Gram Stain Result Positive Abnormal [facility] Interpretation and review of laboratory results Abnormal [facility] Basic metabolic 1998 panelon 06-24-2025 Anion gap [Moles/Vol] 5 mmol/L 3 - 13 mmol/L [facility] Calcium [Mass/Vol] 8.2 mg/dL Low 8.8 - 10. 0 mg/dL [facility] Chloride [Moles/Vol] 106 mmol/L 98 - 10 7 mmol/L [facility] CO2 [Moles/Vol] 26 mmol/L 23 - 31 mmol/L [facility] Creatinine [Mass/Vol] 1.06 mg/dL 0.57 - 1.11 mg/dL [facility] GFR/1.73 sq M.predicted (S/P/Bld) [Vol rate/Area] 59.9 mL/min Low - PINF [facility] Glucose [Mass/Vol] 80 mg/dL Low 82 - 115 mg/dL [facility] Interpretation and review of laboratory results Abnormal [facility] Potassium [Moles/Vol] 4.1 mmol/L 3.5 - 5.1 mmol/L [facility] Sodium [Moles/Vol] 137 mmol/L 136 - 145 mmol/L [facility] Urea nitrogen [Mass/Vol] 32 mg/dL High 9 - 23 mg/dL [facility] CBC W Auto Differential pane l (Bld)on 06-24-2025 Basophils (Bld) [#/Vol] 0.1 10*3/uL 0.0 - 0.2 10*3/uL [facility] Basophils/100 WBC (Bld) 0.7 % 0.0 - 2.0 % [facility] Eosinophils (Bld) [#/Vol] 0.2 10*3/uL 0.0 - 0.5 10*3/uL [facility] Eosinophils/100 WBC (Bld) 1.7 % 0.0 - 6.0 % [facility] Erythrocyte distribution width (RBC) [Ratio] 22.2 % High 11.5 - 15.0 % [facility] Hematocrit (Bld) [Volume fraction] 27.2 % Low 35.0 - 47.0 % [facility] Hemoglobin (Bld) [Mass/Vol] 7.8 g/dL Low 11.7 - 16.0 g/dL [facility] Immature granulocytes (Bld) [#/Vol] 0.1 10*3/uL High NINF - 0.1 10*3/uL [facility] Immature granulocytes/100 WBC (Bld) 0.5 % 0.0 - 2.0 % [facility] Interpretation and review of laboratory results Abnormal [facility] Lymphocytes (Bld) [#/Vol] 0.9 10*3/uL Low 1.0 - 4.3 10*3/uL [facility] Lymphocytes/100 WBC (Bld) 9.1 % Low 15.0 - 45.0 % [facility] MCH (RBC) [Entitic mass] 23.6 pg Low 26.0 - 34.0 pg [facility] MCHC (RBC) [Mass/Vol] 28.7 % Low 30.5 - 36.0 % [facility] MCV (RBC) [Entitic vol] 82.4 fL 77.0 - 99.0 fL [facility] Monocytes (Bld) [#/Vol] 0.7 10*3/uL 0.0 - 0.9 10*3/uL [facility] Monocytes/100 WBC (Bld) 6.9 % 5.0 - 13.0 % [facility] Neutrophils (Bld) [#/Vol] 8 10*3/uL High 1.8 - 7.5 10*3/uL [facility] Neutrophils/100 WBC (Bld) 81.1 % 38.0 - 82.0 % [facility] Nucleated RBC/100 WBC (Bld) [Ratio] 0 % [facility] Platelet mean volume (Bld) [Entitic vol] 9.8 fL 9.0 - 12.7 fL [facility] Platelets (Bld) [#/Vol] 418 10*3/uL 140 - 440 10*3/uL [facility] RBC (Bld) [#/Vol] 3.3 10*6/uL Low 3.80 - 5.20 10*6/uL [facility] WBC (Bld) [#/Vol] 9.9 10*3/uL 3.6 - 10.7 10*3/uL [facility] CBC WITH AUTO DIFFERENTIALon 06-24-2025 Basophils (Bld) [#/Vol] 0.1 10*3/uL Normal 0.0-0.2 [facility] [place] [facility] Comment on above: Performed By: #### L [id number] ####Documentation Writer: NADIA FRENCH ([id number])[address] Basophils/100 WBC (Bld) 0.7 % Normal 0.0-2.0 [facility] Comment on above: Performed By: #### L [id number] ####Documentation Writer: NADIA FRENCH ([id number])[facility])[address] [place] [address] Eosinophils (Bld) [#/Vol] 0.2 10*3/uL Normal 0.0-0.5 [facility] Comment on above: Performed By: #### L [id number] ####Documentation Writer: NADIA FRENCH ([id number])[facility])[address] [place] [address] Eosinophils/100 WBC (Bld) 1.7 % Normal 0.0-6.0 [facility] Comment on above: Performed By: #### L [id number] ####Documentation Writer: NDAIA FRENCH ([id number])[address] Erythrocyte distribution width (RBC) [Ratio] 22.2 % High 11.5-15.0 [facility] Comment on above: Performed By: #### L [id number] ####Documentation Writer: NADIA FRENCH ([id number])[facility])[address] [place] [address] Hematocrit (Bld) [Volume fraction] 27.2 % Low 35.0-47.0 [facility] Comment on above: Performed By: #### L [id number] ####Documentation Writer: NADIA FRENCH ([id number])[address] Hemoglobin (Bld) [Mass/Vol] 7.8 g/dL Low 11.7-16.0 [facility] Comment on above: Performed By: #### L [id number] ####Documentation Writer: NADIA FRENCH ([id number])[address] IMMATURE GRANS % 0.5 % Normal 0.0-2.0 [facility] Comment on above: Performed By: #### L [id number] ####Documentation Writer: NADIA FRENCH ([id number])[facility])[address] [place] [address] IMMATURE GRANS ABSOLUTE 0.1 10*3/uL High <0.1 [facility] Comment on above: Performed By: #### L [id number] ####Documentation Writer: NADIA FRENCH ([id number])[facility])[address] [place] [address] Lymphocytes (Bld) [#/Vol] 0.9 10*3/uL Low 1.0-4.3 [facility] Comment on above: Performed By: #### L [id number] ####Documentation Writer: NADIA FRENCH ([id number])[facility])[address] [place] [address] Lymphocytes/100 WBC (Bld) 9.1 % Low 15.0-45.0 [facility] Comment on above: Performed By: #### L [id number] ####Documentation Writer: NADIA FRENCH ([id number])[facility])[address] [place] [address] MCH (RBC) [Entitic mass] 23.6 pg Low 26.0-34.0 [facility] Comment on above: Performed By: #### L [id number] ####Documentation Writer: NADIA FRENCH ([id number])[facility])[address] [place] [address] MCHC 28.7 % Low 30.5-36.0 [facility] Comment on above: Performed By: #### L [id number] ####Documentation Writer: NADIA FRENCH ([id number])[facility])[address] [place] [address] MCV (RBC) [Entitic vol] 82.4 fL Normal 77.0-99.0 [facility] Comment on above: Performed By: #### L [id number] ####Documentation Writer: NADIA FRENCH ([id number])[facility])[address] [place] [address] Monocytes (Bld) [#/Vol] 0.7 10*3/uL Normal 0.0-0.9 [facility] Comment on above: Performed By: #### L [id number] ####Documentation Writer: NADIA FRENCH ([id number])[facility] ([facility])[address] [place] [address] Monocytes/100 WBC (Bld) 6.9 % Normal 5.0-13.0 [facility] Comment on above: Performed By: #### L [id number] ####Documentation Writer: NADIA FRENCH ([id number])[facility] ([facility])[address] [place] [address] NEUTROPHILS ABSOLUTE 8.0 10*3/uL High 1.8-7.5 [facility] Comment on above: Performed By: #### L [id number] ####Documentation Writer: NADIA FRENCH ([id number])[facility])[address] [place] [address] Neutrophils/100 WBC (Bld) 81.1 % Normal 38.0-82.0 [facility] Comment on above: Performed By: #### L [id number] ####Documentation Writer: NADIA FRENCH ([id number])[facility] ([facility])[address] [place] [address] NRBC 0.0 /100 WBCs Normal 0.0-2.0 [facility] Comment on above: Performed By: #### L [id number] ####Documentation Writer: NADIA FRENCH ([id number])[facility] ([facility])[address] [place] [address] Platelet mean volume (Bld) [Entitic vol] 9.8 fL Normal 9.0-12.7 [facility] Comment on above: Performed By: #### L [id number] ####Documentation Writer: NADIA FRENCH ([id number])[facility] ([facility])[address] [place] [address] [place] Platelets (Bld) [#/Vol] 418 10*3/uL Normal 140-440 [facility] Comment on above: Performed By: #### L [id number] ####Documentation Writer: NADIA FRENCH ([id number])[facility] ([facility])[address] [place] [address] RBC (Bld) [#/Vol] 3.30 10*6/uL Low 3.80-5.20 [facility] Comment on above: Performed By: #### L [id number] ####Documentation Writer: NADIA FRENCH ([id number])[facility])[address] [place] [address] WBC (Bld) [#/Vol] 9.9 10*3/uL Normal 3.6-10.7 [facility] Comment on above: Performed By: #### L [id number] ####Documentation Writer: NADIA FRENCH ([id number])[facility])[address] [place] [address] Laboratory - Microbiology an d Antimicrobial susceptibilityOrdered By: Stefania Orourke on 06-24-2025 Bacteria identified Aer cx Nom (Lower resp) Few respiratory amita present. [facility] Bacteria identified Aer cx Nom (Lower resp) Moderate Stephanie tropicalis Abnormal [facility] Progress Noteon 06-24-2025 Progress Note Normal [facility] Progress Note Normal [facility] BASIC METABOLIC PANELon 05-29 Anion gap [Moles/Vol] 5 mmol/L Normal 3-13 [facility] Comment on above: Performed By: #### L [id number] ####Documentation Writer: NADIA FRENCH ([id number])[facility])[address] [place] [address] Calcium [Mass/Vol] 8.0 mg/dL Low 8.8-10.0 [facility] Comment on above: Performed By: #### L [id number] ####Documentation Writer: NADIA FRENCH ([id number])[facility] ([facility])[address] [place] [address] Chloride [Moles/Vol] 105 mmol/L Normal 98-107 [facility] Comment on above: Performed By: #### L [id number] ####Documentation Writer: NADIA [id number])[facility])[address] [place] [address] CO2 [Moles/Vol] 26 mmol/L Normal 23-31 [facility] Comment on above: Performed By: #### L [id number] ####Documentation Writer: NADIA FRENCH ([id number])[facility])[address] [place] [address] Creatinine [Mass/Vol] 1.11 mg/dL Normal 0.57-1.11 [facility] Comment on above: Performed By: #### L [id number] ####Documentation Writer: NADIA FRENCH ([id number])[facility])[address] [place] [address] GLOMERULAR FILTRATION RATE ML/MIN/1.73 SQ M.PREDICTED 56.7 mL/min/1.73m*2 Low >60.0 [facility] Comment on above: Result Comment: Calc ulation based on the Chronic Kidney Disease Epidemiology Collaboration (CKD-EPI) equation refit without adjustment for race Performed By: #### L [id number] ####Documentation Writer: NADIA FRENCH ([id number])[facility])[address] [place] [address] Glucose [Mass/Vol] 88 mg/dL Normal 82-115 [facility] Comment on above: Performed By: #### L [id number] ####Documentation Writer: NADIA FRENCH ([id number])[address] Potassium [Moles/Vol] 3.8 mmol/L Normal 3.5-5.1 [facility] Comment on above: Result Comment: [facility] potassium values may be up to 0.5 mmol/L lower than serum values. Performed By: #### L [id number] ####Documentation Writer: NADIA FRENCH ([id number])[facility])[address] [place] [address] [place] Sodium [Moles/Vol] 136 mmol/L Normal 136-145 [facility] Comment on above: Performed By: #### L [id number] ####Documentation Writer: NADIA FRENCH ([id number])[facility])[address] [place] [address] Urea nitrogen [Mass/Vol] 29 mg/dL High 9-23 [facility] Comment on above: Performed By: #### L [id number] ####Documentation Writer: NADIA FRENCH ([id number])[facility] ([facility])[address] [place] [address] Basic metabolic 1998 panelon 06-23-2025 Anion gap [Moles/Vol] 5 mmol/L 3 - 13 mmol/L [facility] Calcium [Mass/Vol] 8 mg/dL Low 8.8 - 10. 0 mg/dL [facility] Chloride [Moles/Vol] 105 mmol/L 98 - 10 7 mmol/L [facility] CO2 [Moles/Vol] 26 mmol/L 23 - 31 mmol/L [facility] Creatinine [Mass/Vol] 1.11 mg/dL 0.57 - 1.11 mg/dL [facility] GFR/1.73 sq M.predicted (S/P/Bld) [Vol rate/Area] 56.7 mL/min Low - PINF [facility] Glucose [Mass/Vol] 88 mg/dL 82 - 115 mg/dL [facility] Interpretation and review of laboratory results Abnormal [facility] Potassium [Moles/Vol] 3.8 mmol/L 3.5 - 5.1 mmol/L [facility] Sodium [Moles/Vol] 136 mmol/L 136 - 145 mmol/L [facility] Urea nitrogen [Mass/Vol] 29 mg/dL High 9 - 23 mg/dL [facility] CBC W Auto Differential pane l (Bld)on 06-23-2025 Basophils (Bld) [#/Vol] 0.1 10*3/uL 0.0 - 0.2 10*3/uL [facility] Basophils/100 WBC (Bld) 0.6 % 0.0 - 2.0 % [facility] Eosinophils (Bld) [#/Vol] 0.2 10*3/uL 0.0 - 0.5 10*3/uL [facility] Eosinophils/100 WBC (Bld) 2.2 % 0.0 - 6.0 % [facility] Erythrocyte distribution width (RBC) [Ratio] 22.5 % High 11.5 - 15.0 % [facility] Hematocrit (Bld) [Volume fraction] 25.5 % Low 35.0 - 47.0 % [facility] Hemoglobin (Bld) [Mass/Vol] 7.5 g/dL Low 11.7 - 16.0 g/dL [facility] Immature granulocytes (Bld) [#/Vol] 0 10*3/uL NINF - 0.1 10*3/uL [facility] Immature granulocytes/100 WBC (Bld) 0.5 % 0.0 - 2.0 % [facility] Interpretation and review of laboratory results Abnormal [facility] Lymphocytes (Bld) [#/Vol] 1.3 10*3/uL 1.0 - 4.3 10*3/uL [facility] Lymphocytes/100 WBC (Bld) 14.4 % Low 15.0 - 45.0 % [facility] MCH (RBC) [Entitic mass] 24.2 pg Low 26.0 - 34.0 pg [facility] MCHC (RBC) [Mass/Vol] 29.4 % Low 30.5 - 36.0 % [facility] MCV (RBC) [Entitic vol] 82.3 fL 77.0 - 99.0 fL [facility] Monocytes (Bld) [#/Vol] 0.8 10*3/uL 0.0 - 0.9 10*3/uL [facility] Monocytes/100 WBC (Bld) 8.8 % 5.0 - 13.0 % [facility] Neutrophils (Bld) [#/Vol] 6.4 10*3/uL 1.8 - 7.5 10*3/uL [facility] Neutrophils/100 WBC (Bld) 73.5 % 38.0 - 82.0 % [facility] Nucleated RBC/100 WBC (Bld) [Ratio] 0 % [facility] Platelet mean volume (Bld) [Entitic vol] 9.6 fL 9.0 - 12.7 fL [facility] Platelets (Bld) [#/Vol] 371 10*3/uL 140 - 440 10*3/uL [facility] RBC (Bld) [#/Vol] 3.1 10*6/uL Low 3.80 - 5.20 10*6/uL [facility] WBC (Bld) [#/Vol] 8.7 10*3/uL 3.6 - 10.7 10*3/uL [facility] CBC WITH AUTO DIFFERENTIALon 06-23-2025 Basophils (Bld) [#/Vol] 0.1 10*3/uL Normal 0.0-0.2 [facility] Comment on above: Performed By: #### L [id number] ####Documentation Writer: NADIA FRENCH ([id number])[facility] ([facility])[address] [place] [address] Basophils/100 WBC (Bld) 0.6 % Normal 0.0-2.0 [facility] Comment on above: Performed By: #### L [id number] ####Documentation Writer: NADIA FRENCH ([id number])[facility])[address] [place] [address] Eosinophils (Bld) [#/Vol] 0.2 10*3/uL Normal 0.0-0.5 [facility] Comment on above: Performed By: #### L [id number] ####Documentation Writer: NADIA FRENCH ([id number])[facility])[address] [place] [address] Eosinophils/100 WBC (Bld) 2.2 % Normal 0.0-6.0 [facility] Comment on above: Performed By: #### L [id number] ####Documentation Writer: NADIA FRENCH ([id number])[facility])[address] [place] [address] Erythrocyte distribution width (RBC) [Ratio] 22.5 % High 11.5-15.0 [facility] Comment on above: Performed By: #### L [id number] ####Documentation Writer: NADIA FRENCH ([id number])[facility])[address] [place] [address] Hematocrit (Bld) [Volume fraction] 25.5 % Low 35.0-47.0 [facility] Comment on above: Performed By: #### L [id number] ####Documentation Writer: NADIA FRENCH ([id number])[facility])[address] [place] [address] Hemoglobin (Bld) [Mass/Vol] 7.5 g/dL Low 11.7-16.0 [facility] Comment on above: Performed By: #### L [id number] ####Documentation Writer: NADIA FRENCH ([id number])[address] IMMATURE GRANS % 0.5 % Normal 0.0-2.0 [facility] Comment on above: Performed By: #### L [id number] ####Documentation Writer: NADIA FRENCH ([id number])[facility])[address] [place] [address] IMMATURE GRANS ABSOLUTE 0.0 10*3/uL Normal <0.1 [facility] Comment on above: Performed By: #### L [id number] ####Documentation Writer: NADIA FRENCH ([id number])[address] Lymphocytes (Bld) [#/Vol] 1.3 10*3/uL Normal 1.0-4.3 [facility] Comment on above: Performed By: #### L [id number] ####Documentation Writer: NADIA FRENCH ([id number])[address] Lymphocytes/100 WBC (Bld) 14.4 % Low 15.0-45.0 [facility] Comment on above: Performed By: #### L [id number] ####Documentation Writer: NADIA FRENCH ([id number])[address] MCH (RBC) [Entitic mass] 24.2 pg Low 26.0-34.0 [facility] Comment on above: Performed By: #### L [id number] ####Documentation Writer: NADIA FRENCH ([id number])[address] MCHC 29.4 % Low 30.5-36.0 [facility] Comment on above: Performed By: #### L [id number] ####Documentation Writer: NADIA FRENCH ([id number])[facility] ([facility])[address] [place] [address] MCV (RBC) [Entitic vol] 82.3 fL Normal 77.0-99.0 [facility] Comment on above: Performed By: #### L [id number] ####Documentation Writer: NADIA FRENCH ([id number])[facility] ([facility])[address] [place] [address] Monocytes (Bld) [#/Vol] 0.8 10*3/uL Normal 0.0-0.9 [facility] Comment on above: Performed By: #### L [id number] ####Documentation Writer: NADIA FRENCH ([id number])[facility] ([facility])[address] [place] [address] Monocytes/100 WBC (Bld) 8.8 % Normal 5.0-13.0 [facility] Comment on above: Performed By: #### L [id number] ####Documentation Writer: NADIA FRENCH ([id number])[facility] ([facility])[address] [place] [address] NEUTROPHILS ABSOLUTE 6.4 10*3/uL Normal 1.8-7.5 [facility] Comment on above: Performed By: #### L [id number] ####Documentation Writer: NADIA FRENCH ([id number])[facility] ([facility])[address] [place] [address] Neutrophils/100 WBC (Bld) 73.5 % Normal 38.0-82.0 [facility] Comment on above: Performed By: #### L [id number] ####Documentation Writer: NADIA FRENCH ([id number])[facility] ([facility])[address] [place] [address] NRBC 0.0 /100 WBCs Normal 0.0-2.0 [facility] Comment on above: Performed By: #### L [id number] ####Documentation Writer: NADIA FRENCH ([id number])[facility] ([facility])[address] [place] [address] Platelet mean volume (Bld) [Entitic vol] 9.6 fL Normal 9.0-12.7 [facility] Comment on above: Performed By: #### L [id number] ####Documentation Writer: NADIA FRENCH ([id number])[facility] ([facility])[address] [place] [address] Platelets (Bld) [#/Vol] 371 10*3/uL Normal 140-440 [facility] Comment on above: Performed By: #### L [id number] ####Documentation Writer: NADIA FRENCH ([id number])[facility] ([facility])[address] [place] [address] RBC (Bld) [#/Vol] 3.10 10*6/uL Low 3.80-5.20 [facility] Comment on above: Performed By: #### L [id number] ####Documentation Writer: NADIA FRENCH ([id number])[facility] ([facility])[address] [place] [address] WBC (Bld) [#/Vol] 8.7 10*3/uL Normal 3.6-10.7 [facility] Comment on above: Performed By: #### L [id number] ####Documentation Writer: NADIA FRENCH ([id number])[facility] ([facility])[address] [place] [address] Progress Noteon 06-23-2025 Progress Note Normal [facility] Progress Note Normal [facility] XR CHEST 1 VIEWon 06-23-2025 XR CHEST 1 VIEW Normal [facility] XR Chest Single viewon 06-23 [facility] Radiology Study observation (narrative) [facility] XR Chest Single viewOrdered By: Bradley German on 06-23-2025 [facility] Work Phone: [phone] 06-22-2025 [id number] Normal [facility] [id number] 06-22-2025 [id number] Normal [facility] BASIC METABOLIC PANELon 05-29 Anion gap [Moles/Vol] 6 mmol/L Normal 3-13 [facility] Comment on above: Performed By: #### L AB106, LAB15 ####Documentation Writer: NADIA FRENCH ([id number])[facility])[address] [place] [address] Calcium [Mass/Vol] 8.1 mg/dL Low 8.8-10.0 [facility] Comment on above: Performed By: #### L [id number], LAB15 ####Documentation Writer: NADIA FRENCH ([id number])[facility] ([facility])[address] [place] [address] Chloride [Moles/Vol] 107 mmol/L Normal 98-107 [facility] Comment on above: Performed By: #### L AB106, LAB15 ####Documentation Writer: NADIA FRENCH ([id number])[facility] ([facility])[address] [place] [address] CO2 [Moles/Vol] 22 mmol/L Low 23-31 [facility] Comment on above: Performed By: #### L AB106, LAB15 ####Documentation Writer: NADIA FRENCH ([id number])[facility] ([facility])[address] [place] [address] Creatinine [Mass/Vol] 1.21 mg/dL High 0.57-1.11 [facility] Comment on above: Performed By: #### L AB106, LAB15 ####Documentation Writer: NADIA FRENCH ([id number])[facility])[address] [place] [address] GLOMERULAR FILTRATION RATE ML/MIN/1.73 SQ M.PREDICTED 51.1 mL/min/1.73m*2 Low >60.0 [facility] Comment on above: Result Comment: Calc ulation based on the Chronic Kidney Disease Epidemiology Collaboration (CKD-EPI) equation refit without adjustment for race Performed By: #### L AB106, LAB15 ####Documentation Writer: NADIA FRENCH ([id number])[facility] ([facility])[address] [place] [address] Glucose [Mass/Vol] 102 mg/dL Normal 82-115 [facility] Comment on above: Performed By: #### L AB106, LAB15 ####Documentation Writer: NADIA FRENCH ([id number])[facility])[address] [place] [address] Potassium [Moles/Vol] 4.5 mmol/L Normal 3.5-5.1 [facility] Comment on above: Result Comment: [facility] potassium values may be up to 0.5 mmol/L lower than serum values. Performed By: #### L AB106, LAB15 ####Documentation Writer: NADIA FRENCH ([id number])[facility])[address] [place] [address] Sodium [Moles/Vol] 135 mmol/L Low 136-145 [facility] Comment on above: Performed By: #### L AB106, LAB15 ####Documentation Writer: NADIA FRENCH ([id number])[facility])[address] [place] [address] Urea nitrogen [Mass/Vol] 30 mg/dL High 9-23 [facility] Comment on above: Performed By: #### L AB106, LAB15 ####Documentation Writer: NADIA FRENCH ([id number])[facility])[address] [place] [address] BLOOD GAS ARTERIALon 025 AMOUNT OF OXYGEN 15L Normal [facility] Comment on above: Performed By: #### L AB76 ####Documentation Writer: NADIA FRENCH ([id number])[facility])[address] [place] [address] Base excess Calc (Bld) [Moles/Vol] 0.6 mmol/L Normal -3.0-3.0 [facility] Comment on above: Performed By: #### L AB76 ####Documentation Writer: NADIA FRENCH ([id number])[facility])[address] [place] [address] [place] CO2 [Moles/Vol] 24.8 mmol/L Normal 23.0-27.0 [facility] Comment on above: Performed By: #### L AB76 ####Documentation Writer: NADIA FRENCH ([id number])[facility])[address] [place] [address] HCO3 (Bld) [Moles/Vol] 23.8 mmol/L Normal 21.0-25.0 [facility] Comment on above: Performed By: #### L AB76 ####Documentation Writer: NADIA FRENCH ([id number])[facility])[address] [place] [address] Hemoglobin (Bld) [Mass/Vol] 9.3 g/dL Normal Screen only [facility] Comment on above: Performed By: #### L AB76 ####Documentation Writer: NADIA FRENCH ([id number])[address] OXYGEN SATURATION (%) IN ARTERIAL BLOOD 95.9 % Normal 95.0-100.0 [facility] Comment on above: Performed By: #### L AB76 ####Documentation Writer: NADIA FRENCH ([id number])[facility])[address] [place] [address] PCO2 ARTERIAL 32.5 mm Hg Low >35.0-<45. 0 [facility] Comment on above: Performed By: #### L AB76 ####Documentation Writer: NADIA FRENCH ([id number])[facility])[address] [place] [address] PH ARTERIAL 7.482 High 7.350-7.45 0 [facility] Comment on above: Performed By: #### L AB76 ####Documentation Writer: NADIA FRENCH ([id number])[address] PO2 ARTERIAL 79.2 mm Hg Low 80.0-100.0 [facility] Comment on above: Performed By: #### L AB76 ####Documentation Writer: NADIA FRENCH ([id number])[facility] ([facility])[address] [place] [address] SOURCE OF OXYGEN [place] High Flow Ten al Cannula (6-15 LPM) Normal [facility] Comment on above: Performed By: #### L AB76 ####Documentation Writer: NADIA FRENCH ([id number])[facility] ([facility])[address] [place] [address] Bacteria identified Cx Nom ( Bld)on 06-22-2025 Interpretation and review of laboratory results Normal [facility] Basic metabolic 1998 panelon 06-22-2025 Anion gap [Moles/Vol] 6 mmol/L 3 - 13 mmol/L [facility] Calcium [Mass/Vol] 8.1 mg/dL Low 8.8 - 10. 0 mg/dL [facility] Chloride [Moles/Vol] 107 mmol/L 98 - 10 7 mmol/L [facility] CO2 [Moles/Vol] 22 mmol/L Low 23 - 31 mmol/L [facility] Creatinine [Mass/Vol] 1.21 mg/dL High 0.57 - 1.11 mg/dL [facility] GFR/1.73 sq M.predicted (S/P/Bld) [Vol rate/Area] 51.1 mL/min Low - PINF [facility] Glucose [Mass/Vol] 102 mg/dL 82 - 115 mg/dL [facility] Interpretation and review of laboratory results Abnormal [facility] Potassium [Moles/Vol] 4.5 mmol/L 3.5 - 5.1 mmol/L [facility] Sodium [Moles/Vol] 135 mmol/L Low 136 - 145 mmol/L [facility] Urea nitrogen [Mass/Vol] 30 mg/dL High 9 - 23 mg/dL [facility] CBC W Auto Differential pane l (Bld)on 06-22-2025 Basophils (Bld) [#/Vol] 0.1 10*3/uL 0.0 - 0.2 10*3/uL [facility] Basophils/100 WBC (Bld) 0.7 % 0.0 - 2.0 % [facility] Eosinophils (Bld) [#/Vol] 0.2 10*3/uL 0.0 - 0.5 10*3/uL [facility] Eosinophils/100 WBC (Bld) 1.7 % 0.0 - 6.0 % [facility] Erythrocyte distribution width (RBC) [Ratio] 22.9 % High 11.5 - 15.0 % [facility] Hematocrit (Bld) [Volume fraction] 30 % Low 35.0 - 47.0 % [facility] Hemoglobin (Bld) [Mass/Vol] 8.7 g/dL Low 11.7 - 16.0 g/dL [facility] Immature granulocytes (Bld) [#/Vol] 0.1 10*3/uL High NINF - 0.1 10*3/uL [facility] Immature granulocytes/100 WBC (Bld) 0.5 % 0.0 - 2.0 % [facility] Interpretation and review of laboratory results Abnormal [facility] Lymphocytes (Bld) [#/Vol] 1.7 10*3/uL 1.0 - 4.3 10*3/uL [facility] Lymphocytes/100 WBC (Bld) 16.5 % 15.0 - 45.0 % [facility] MCH (RBC) [Entitic mass] 23.9 pg Low 26.0 - 34.0 pg [facility] MCHC (RBC) [Mass/Vol] 29 % Low 30.5 - 36.0 % [facility] MCV (RBC) [Entitic vol] 82.4 fL 77.0 - 99.0 fL [facility] Monocytes (Bld) [#/Vol] 0.7 10*3/uL 0.0 - 0.9 10*3/uL [facility] Monocytes/100 WBC (Bld) 6.7 % 5.0 - 13.0 % [facility] Neutrophils (Bld) [#/Vol] 7.8 10*3/uL High 1.8 - 7.5 10*3/uL [facility] Neutrophils/100 WBC (Bld) 73.9 % 38.0 - 82.0 % [facility] Nucleated RBC/100 WBC (Bld) [Ratio] 0 % [facility] Platelet mean volume (Bld) [Entitic vol] 9.1 fL 9.0 - 12.7 fL [facility] Platelets (Bld) [#/Vol] 437 10*3/uL 140 - 440 10*3/uL [facility] RBC (Bld) [#/Vol] 3.64 10*6/uL Low 3.80 - 5.20 10*6/uL [facility] WBC (Bld) [#/Vol] 10.5 10*3/uL 3.6 - 10.7 10*3/uL [facility] CBC WITH AUTO DIFFERENTIALon 06-22-2025 Basophils (Bld) [#/Vol] 0.1 10*3/uL Normal 0.0-0.2 [facility] Comment on above: Performed By: #### L [id number] ####Documentation Writer: NADIA FRENCH ([id number])[facility])[address] [place] [address] Basophils/100 WBC (Bld) 0.7 % Normal 0.0-2.0 [facility] Comment on above: Performed By: #### L [id number] ####Documentation Writer: NADIA FRENCH ([id number])[facility])[address] [place] [address] Eosinophils (Bld) [#/Vol] 0.2 10*3/uL Normal 0.0-0.5 [facility] Comment on above: Performed By: #### L [id number] ####Documentation Writer: NADIA FRENCH ([id number])[facility])[address] [place] [address] Eosinophils/100 WBC (Bld) 1.7 % Normal 0.0-6.0 [facility] Comment on above: Performed By: #### L [id number] ####Documentation Writer: NADIA FRENCH ([id number])[facility])[address] [place] [address] Erythrocyte distribution width (RBC) [Ratio] 22.9 % High 11.5-15.0 [facility] Comment on above: Performed By: #### L [id number] ####Documentation Writer: NADIA FRENCH ([id number])[facility])[address] [place] [address] Hematocrit (Bld) [Volume fraction] 30.0 % Low 35.0-47.0 [facility] Comment on above: Performed By: #### L [id number] ####Documentation Writer: NADIA FRENCH ([id number])[facility])[address] [place] [address] Hemoglobin (Bld) [Mass/Vol] 8.7 g/dL Low 11.7-16.0 [facility] Comment on above: Performed By: #### L [id number] ####Documentation Writer: NADIA FRENCH ([id number])[facility])[address] [place] [address] IMMATURE GRANS % 0.5 % Normal 0.0-2.0 [facility] Comment on above: Performed By: #### L [id number] ####Documentation Writer: NADIA FRENCH ([id number])[address] IMMATURE GRANS ABSOLUTE 0.1 10*3/uL High <0.1 [facility] Comment on above: Performed By: #### L [id number] ####Documentation Writer: NADIA FRENCH ([id number])[facility])[address] [place] [address] Lymphocytes (Bld) [#/Vol] 1.7 10*3/uL Normal 1.0-4.3 [facility] Comment on above: Performed By: #### L [id number] ####Documentation Writer: NADIA FRENCH ([id number])[facility])[address] [place] [address] Lymphocytes/100 WBC (Bld) 16.5 % Normal 15.0-45.0 [facility] Comment on above: Performed By: #### L [id number] ####Documentation Writer: NADIA FRENCH ([id number])[facility])[address] [place] [address] MCH (RBC) [Entitic mass] 23.9 pg Low 26.0-34.0 [facility] Comment on above: Performed By: #### L [id number] ####Documentation Writer: NADIA FRENCH ([id number])[facility])[address] [place] [address] MCHC 29.0 % Low 30.5-36.0 [facility] Comment on above: Performed By: #### L [id number] ####Documentation Writer: NADIA FRENCH ([id number])[facility])[address] [place] [address] MCV (RBC) [Entitic vol] 82.4 fL Normal 77.0-99.0 [facility] Comment on above: Performed By: #### L [id number] ####Documentation Writer: NADIA FRENCH ([id number])[facility])[address] [place] [address] Monocytes (Bld) [#/Vol] 0.7 10*3/uL Normal 0.0-0.9 [facility] Comment on above: Performed By: #### L [id number] ####Documentation Writer: NADIA FRENCH ([id number])[facility] ([facility])[address] [place] [address] Monocytes/100 WBC (Bld) 6.7 % Normal 5.0-13.0 [facility] Comment on above: Performed By: #### L [id number] ####Documentation Writer: NADIA FRENCH ([id number])[facility])[address] [place] [address] NEUTROPHILS ABSOLUTE 7.8 10*3/uL High 1.8-7.5 [facility] Comment on above: Performed By: #### L [id number] ####Documentation Writer: NADIA FRENCH ([id number])[facility])[address] [place] [address] Neutrophils/100 WBC (Bld) 73.9 % Normal 38.0-82.0 [facility] Comment on above: Performed By: #### L [id number] ####Documentation Writer: NADIA FRENCH ([id number])[facility])[address] [place] [address] NRBC 0.0 /100 WBCs Normal 0.0-2.0 [facility] Comment on above: Performed By: #### L [id number] ####Documentation Writer: NADIA FRENCH ([id number])[facility] ([facility])[address] [place] [address] Platelet mean volume (Bld) [Entitic vol] 9.1 fL Normal 9.0-12.7 [facility] Comment on above: Performed By: #### L [id number] ####Documentation Writer: NADIA FRENCH ([id number])[facility] ([facility])[address] [place] [address] Platelets (Bld) [#/Vol] 437 10*3/uL Normal 140-440 [facility] Comment on above: Performed By: #### L [id number] ####Documentation Writer: NADIA FRENCH ([id number])[facility] ([facility])[address] [place] [address] RBC (Bld) [#/Vol] 3.64 10*6/uL Low 3.80-5.20 [facility] Comment on above: Performed By: #### L [id number] ####Documentation Writer: NADIA FRENCH ([id number])[facility] ([facility])[address] [place] [address] WBC (Bld) [#/Vol] 10.5 10*3/uL Normal 3.6-10.7 [facility] Comment on above: Performed By: #### L [id number] ####Documentation Writer: NADIA FRENCH ([id number])[facility] ([facility])[address] [place] [address] Consulton 06-22-2025 Consult Normal [facility] Laboratory - Chemistry and C hemistry - challengeOrdered By: Esteban Mera on 06-22-2025 Base excess Calc (Bld) [Moles/Vol] 0.6 mmol/L -3.0 - 3.0 mmol/L [facility] CO2 (Bld) [Partial pressure] 32.5 mm[Hg] Low - PINF [facility] CO2 [Moles/Vol] 24.8 mmol/L 23.0 - 27.0 mmol/L [facility] HCO3 (Bld) [Moles/Vol] 23.8 mmol/L 21.0 - 25.0 mmol/L [facility] Oxygen (Bld) [Partial pressure] 79.2 mm[Hg] Low [facility] pH (Bld) 7.482 [pH] High 7.350 - 7.450 [facility] - Hematology and Cell countsOrdered By: Esteban Mera on 06-22-2025 Hemoglobin (Bld) [Mass/Vol] 9.3 g/dL 7.0 g/dl [facility] - Microbiology an d Antimicrobial susceptibilityon 06-22-2025 Bacteria identified Cx Nom (Bld) No growth at 5 days [facility] NT PRO BNPon 06-22-2025 Natriuretic peptide B (Bld) [Mass/Vol] 44564 pg/mL High <334 [facility] Comment on above: Result Comment: YESY [place] COMMENTS:NT-proBNP (pg/mL) Rule-In Rule-OutAge (y)/Presentation ??? <50 ???50-75 ???>75 ? AllAcute >450??? >900 ???>1800 ? <300Non-Acute ? >600 ???>600 ???>600 ? <125w/CKD ? >1200Patients with levels in the aguilera zone (between rule-out and rule-in levels) need extra physician attention and ancillary testing. Testing is performed on a new assay on a new. Performed By: #### L AB106, LAB15 ####Documentation Writer: NADIA FRENCH ([id number])[facility] ([address] Natriuretic peptide B [Mass/ Vol]on 06-22-2025 Interpretation and review of laboratory results Abnormal [facility] Natriuretic peptide B (Bld) [Mass/Vol] 10362 pg/mL High NINF - 334 pg/mL [facility] No Panel InformationOrdered By: Esteban Mera on 06-22-2025 Amount Of Oxygen 15L [facility] Interpretation and review of laboratory results Abnormal [facility] Source Of Oxygen [place] High Flow Ten al Cannula (6-15 LPM) [facility] Progress Noteon 06-22-2025 Progress Note PHYSICAL THERAPY [facility] Name/MRN: Nancy Delacruz ([id number]) Date: 06/22/2025 Treatment is being deferred at present because pt medical status does not allow participation: Respiratory status. Shant Shea, PT Normal [facility] Progress Note Normal [facility] Progress Note Normal [facility] Progress Note Reviewed Dr. Arenas's note from 06/21/2025. Patient ok to eat today. Not able to add on to OR schedule. Trying to schedule dilation and curettage and levonorgestrel intrauterine device placement for Wednesday. Normal [facility] Progress Note Normal [facility] RESPIRATORY CULTURE AND STAI Non 06-22-2025 RESPIRATORY CULTURE AND STAIN Normal [facility] Comment on above: Performed By: #### L [id number] ####Documentation Writer: NADIA FRENCH ([id number])[facility] ([facility])[address] [place] [address] XR CHEST 1 VIEWon 06-22-2025 XR CHEST 1 VIEW Normal [facility] XR Chest Single viewon 06-22 [facility] RADIOLOGY [facility] Study observation (narrative) [facility] XR Chest Single viewOrdered By: Tom Guillory on 06-22-2025 [facility] Work Phone: [phone] 06-21-2025 [id number] Normal [facility] BASIC METABOLIC PANELon 05-29 Anion gap [Moles/Vol] 6 mmol/L Normal 3-13 [facility] Comment on above: Performed By: #### L AB15 ####Documentation Writer: NADIA FRENCH ([id number])[facility] ([facility])[address] [place] [address] Calcium [Mass/Vol] 8.3 mg/dL Low 8.8-10.0 [facility] Comment on above: Performed By: #### L AB15 ####Documentation Writer: NADIA FRENCH ([id number])[facility] ([facility])[address] [place] [address] Chloride [Moles/Vol] 110 mmol/L High 98-107 [facility] Comment on above: Performed By: #### L AB15 ####Documentation Writer: NADIA FRENCH ([id number])[facility])[address] [place] [address] CO2 [Moles/Vol] 23 mmol/L Normal 23-31 [facility] Comment on above: Performed By: #### L AB15 ####Documentation Writer: NADIA FRENCH ([id number])[facility])[address] [place] [address] Creatinine [Mass/Vol] 1.03 mg/dL Normal 0.57-1.11 [facility] Comment on above: Performed By: #### L AB15 ####Documentation Writer: NADIA FRENCH ([id number])[facility])[address] [place] [address] [place] GLOMERULAR FILTRATION RATE ML/MIN/1.73 SQ M.PREDICTED 62.0 mL/min/1.73m*2 Normal >60.0 [facility] Comment on above: Result Comment: Calc ulation based on the Chronic Kidney Disease Epidemiology Collaboration (CKD-EPI) equation refit without adjustment for race Performed By: #### L AB15 ####Documentation Writer: NADIA FRENCH ([id number])[facility] ([facility])[address] [place] [address] [place] Glucose [Mass/Vol] 83 mg/dL Normal 82-115 [facility] Comment on above: Performed By: #### L AB15 ####Documentation Writer: NADIA FRENCH ([id number])[facility])[address] [place] [address] [place] Potassium [Moles/Vol] 4.6 mmol/L Normal 3.5-5.1 [facility] Comment on above: Result Comment: [facility]as [facility] potassium values may be up to 0.5 mmol/L lower than serum values. Performed By: #### L AB15 ####Documentation Writer: NADIA FRENCH ([id number])[facility] ([facility])[address] [place] [address] Sodium [Moles/Vol] 139 mmol/L Normal 136-145 [facility] Comment on above: Performed By: #### L AB15 ####Documentation Writer: NADIA FRENCH ([id number])[facility] ([facility])[address] [place] [address] Urea nitrogen [Mass/Vol] 28 mg/dL High 9-23 [facility] Comment on above: Performed By: #### L AB15 ####Documentation Writer: NADIA FRENCH ([id number])[facility] ([facility])[address] [place] [address] Bacteria identified Aer cx N om (Lower resp)Ordered By: Georgina Read on 06-21-2025 Gram Stain Result Few Epithelial cells per low power field Abnormal [facility] Gram Stain Result Moderate Polymorphon uclear leukocytes per low power field Abnormal [facility] Gram Stain Result Positive Abnormal [facility] Interpretation and review of laboratory results Abnormal [facility] Basic metabolic 1998 panelon 06-21-2025 Anion gap [Moles/Vol] 6 mmol/L 3 - 13 mmol/L [facility] Calcium [Mass/Vol] 8.3 mg/dL Low 8.8 - 10. 0 mg/dL [facility] Chloride [Moles/Vol] 110 mmol/L High 98 - 10 7 mmol/L [facility] CO2 [Moles/Vol] 23 mmol/L 23 - 31 mmol/L [facility] Creatinine [Mass/Vol] 1.03 mg/dL 0.57 - 1.11 mg/dL [facility] GFR/1.73 sq M.predicted (S/P/Bld) [Vol rate/Area] 62 mL/min - PINF [facility] Glucose [Mass/Vol] 83 mg/dL 82 - 115 mg/dL [facility] Interpretation and review of laboratory results Abnormal [facility] Potassium [Moles/Vol] 4.6 mmol/L 3.5 - 5.1 mmol/L [facility] Sodium [Moles/Vol] 139 mmol/L 136 - 145 mmol/L [facility] Urea nitrogen [Mass/Vol] 28 mg/dL High 9 - 23 mg/dL [facility] CBC W Auto Differential pane l (Bld)on 06-21-2025 Basophils (Bld) [#/Vol] 0.1 10*3/uL 0.0 - 0.2 10*3/uL [facility] Basophils/100 WBC (Bld) 0.7 % 0.0 - 2.0 % [facility] Eosinophils (Bld) [#/Vol] 0.2 10*3/uL 0.0 - 0.5 10*3/uL [facility] Eosinophils/100 WBC (Bld) 2.7 % 0.0 - 6.0 % [facility] Erythrocyte distribution width (RBC) [Ratio] 22.7 % High 11.5 - 15.0 % [facility] Hematocrit (Bld) [Volume fraction] 29.1 % Low 35.0 - 47.0 % [facility] Hemoglobin (Bld) [Mass/Vol] 8.4 g/dL Low 11.7 - 16.0 g/dL [facility] Immature granulocytes (Bld) [#/Vol] 0.1 10*3/uL High NINF - 0.1 10*3/uL [facility] Immature granulocytes/100 WBC (Bld) 0.6 % 0.0 - 2.0 % [facility] Interpretation and review of laboratory results Abnormal [facility] Lymphocytes (Bld) [#/Vol] 1.4 10*3/uL 1.0 - 4.3 10*3/uL [facility] Lymphocytes/100 WBC (Bld) 15.8 % 15.0 - 45.0 % [facility] MCH (RBC) [Entitic mass] 24 pg Low 26.0 - 34.0 pg [facility] MCHC (RBC) [Mass/Vol] 28.9 % Low 30.5 - 36.0 % [facility] MCV (RBC) [Entitic vol] 83.1 fL 77.0 - 99.0 fL [facility] Monocytes (Bld) [#/Vol] 0.6 10*3/uL 0.0 - 0.9 10*3/uL [facility] Monocytes/100 WBC (Bld) 6.8 % 5.0 - 13.0 % [facility] Neutrophils (Bld) [#/Vol] 6.4 10*3/uL 1.8 - 7.5 10*3/uL [facility] Neutrophils/100 WBC (Bld) 73.4 % 38.0 - 82.0 % [facility] Nucleated RBC/100 WBC (Bld) [Ratio] 0 % [facility] Platelet mean volume (Bld) [Entitic vol] 9.8 fL 9.0 - 12.7 fL [facility] Platelets (Bld) [#/Vol] 460 10*3/uL High 140 - 440 10*3/uL [facility] RBC (Bld) [#/Vol] 3.5 10*6/uL Low 3.80 - 5.20 10*6/uL [facility] WBC (Bld) [#/Vol] 8.8 10*3/uL 3.6 - 10.7 10*3/uL [facility] CBC WITH AUTO DIFFERENTIALon 06-21-2025 Basophils (Bld) [#/Vol] 0.1 10*3/uL Normal 0.0-0.2 [facility] Comment on above: Performed By: #### L [id number] ####Documentation Writer: NADIA FRENCH ([id number])[address] Basophils/100 WBC (Bld) 0.7 % Normal 0.0-2.0 [facility] Comment on above: Performed By: #### L [id number] ####Documentation Writer: NADIA FRENCH ([id number])[facility])[address] [place] [address] Eosinophils (Bld) [#/Vol] 0.2 10*3/uL Normal 0.0-0.5 [facility] Comment on above: Performed By: #### L [id number] ####Documentation Writer: NADIA FRENCH ([id number])[facility])[address] [place] [address] Eosinophils/100 WBC (Bld) 2.7 % Normal 0.0-6.0 [facility] Comment on above: Performed By: #### L [id number] ####Documentation Writer: NADIA FRENCH ([id number])[facility])[address] [place] [address] Erythrocyte distribution width (RBC) [Ratio] 22.7 % High 11.5-15.0 [facility] Comment on above: Performed By: #### L [id number] ####Documentation Writer: NADIA FRENCH ([id number])[facility])[address] [place] [address] Hematocrit (Bld) [Volume fraction] 29.1 % Low 35.0-47.0 [facility] Comment on above: Performed By: #### L [id number] ####Documentation Writer: NADIA FRENCH ([id number])[address] Hemoglobin (Bld) [Mass/Vol] 8.4 g/dL Low 11.7-16.0 [facility] Comment on above: Performed By: #### L [id number] ####Documentation Writer: NADIA FRENCH ([id number])[facility])[address] [place] [address] IMMATURE GRANS % 0.6 % Normal 0.0-2.0 [facility] Comment on above: Performed By: #### L [id number] ####Documentation Writer: NADIA FRENCH ([id number])[address] IMMATURE GRANS ABSOLUTE 0.1 10*3/uL High <0.1 [facility] Comment on above: Performed By: #### L [id number] ####Documentation Writer: NADIA FRENCH ([id number])[facility])[address] [place] [address] Lymphocytes (Bld) [#/Vol] 1.4 10*3/uL Normal 1.0-4.3 [facility] Comment on above: Performed By: #### L [id number] ####Documentation Writer: NADIA FRENCH ([id number])[facility] [address] Lymphocytes/100 WBC (Bld) 15.8 % Normal 15.0-45.0 [facility] Comment on above: Performed By: #### L [id number] ####Documentation Writer: NADIA FRENCH ([id number])[facility])[address] [place] [address] MCH (RBC) [Entitic mass] 24.0 pg Low 26.0-34.0 [facility] Comment on above: Performed By: #### L [id number] ####Documentation Writer: NADIA FRENCH ([id number])[facility])[address] [place] [address] MCHC 28.9 % Low 30.5-36.0 [facility] Comment on above: Performed By: #### L [id number] ####Documentation Writer: NADIA FRENCH ([id number])[facility] ([facility])[address] [place] [address] MCV (RBC) [Entitic vol] 83.1 fL Normal 77.0-99.0 [facility] Comment on above: Performed By: #### L [id number] ####Documentation Writer: NADIA FRENCH ([id number])[facility] ([facility])[address] [place] [address] Monocytes (Bld) [#/Vol] 0.6 10*3/uL Normal 0.0-0.9 [facility] Comment on above: Performed By: #### L [id number] ####Documentation Writer: NADIA FRENCH ([id number])[facility] ([facility])[address] [place] [address] Monocytes/100 WBC (Bld) 6.8 % Normal 5.0-13.0 [facility] Comment on above: Performed By: #### L [id number] ####Documentation Writer: NADIA FRENCH ([id number])[facility] ([facility])[address] [place] [address] NEUTROPHILS ABSOLUTE 6.4 10*3/uL Normal 1.8-7.5 [facility] Comment on above: Performed By: #### L [id number] ####Documentation Writer: NADIA FRENCH ([id number])[facility])[address] [place] [address] Neutrophils/100 WBC (Bld) 73.4 % Normal 38.0-82.0 [facility] Comment on above: Performed By: #### L [id number] ####Documentation Writer: NADIA FRENCH ([id number])[facility] ([facility])[address] [place] [address] NRBC 0.0 /100 WBCs Normal 0.0-2.0 [facility] Comment on above: Performed By: #### L [id number] ####Documentation Writer: NADIA FRENCH ([id number])[facility])[address] [place] [address] Platelet mean volume (Bld) [Entitic vol] 9.8 fL Normal 9.0-12.7 [facility] Comment on above: Performed By: #### L [id number] ####Documentation Writer: NADIA FRENCH ([id number])[facility] ([facility])[address] [place] [address] Platelets (Bld) [#/Vol] 460 10*3/uL High 140-440 [facility] Comment on above: Performed By: #### L [id number] ####Documentation Writer: NADIA FRENCH ([id number])[facility])[address] [place] [address] RBC (Bld) [#/Vol] 3.50 10*6/uL Low 3.80-5.20 [facility] Comment on above: Performed By: #### L [id number] ####Documentation Writer: NADIA FRENCH ([id number])[facility])[address] [place] [address] WBC (Bld) [#/Vol] 8.8 10*3/uL Normal 3.6-10.7 [facility] Comment on above: Performed By: #### L [id number] ####Documentation Writer: NADIA FRENCH ([id number])[facility] ([facility])[address] [place] [address] Laboratory - Microbiology an d Antimicrobial susceptibilityOrdered By: Georgina Horn on 06-21-2025 Bacteria identified Aer cx Nom (Lower resp) Rare respiratory amita present. [facility] Progress Noteon 06-21-2025 Progress Note Normal [facility] Progress Note Normal [facility] Progress Note Normal [facility] Progress Note Pt took off [place] to cl adriano out nose, desated to 70's Placed on pap for 15 min and will return to 6 L [place] Normal [facility] Progress Note Normal [facility] [id number] 06-20-2025 [id number] Normal [facility] [id number] Normal [facility] BASIC METABOLIC PANELon 05-29 Anion gap [Moles/Vol] 7 mmol/L Normal 3-13 [facility] Comment on above: Performed By: #### L [id number] ####Documentation Writer: NADIA FRENCH ([id number])[facility] ([facility])[address] [place] [address] Calcium [Mass/Vol] 7.4 mg/dL Low 8.8-10.0 [facility] Comment on above: Performed By: #### L [id number] ####Documentation Writer: NADIA FRENCH ([id number])[facility])[address] [place] [address] Chloride [Moles/Vol] 111 mmol/L High 98-107 [facility] Comment on above: Performed By: #### L [id number] ####Documentation Writer: NADIA FRENCH ([id number])[facility] ([facility])[address] [place] [address] [place] CO2 [Moles/Vol] 19 mmol/L Low 23-31 [facility] Comment on above: Performed By: #### L [id number] ####Documentation Writer: NADIA FRENCH ([id number])[facility])[address] [place] [address] [place] Creatinine [Mass/Vol] 1.15 mg/dL High 0.57-1.11 [facility] Comment on above: Performed By: #### L [id number] ####Documentation Writer: NADIA FRENCH ([id number])[facility])[address] [place] [address] GLOMERULAR FILTRATION RATE ML/MIN/1.73 SQ M.PREDICTED 54.3 mL/min/1.73m*2 Low >60.0 [facility] Comment on above: Result Comment: Calc ulation based on the Chronic Kidney Disease Epidemiology Collaboration (CKD-EPI) equation refit without adjustment for race Performed By: #### L [id number] ####Documentation Writer: NADIA FRENCH ([id number])[address] Glucose [Mass/Vol] 77 mg/dL Low 82-115 [facility] Comment on above: Performed By: #### L [id number] ####Documentation Writer: NADIA FRENCH ([id number])[address] Potassium [Moles/Vol] 4.3 mmol/L Normal 3.5-5.1 [facility] Comment on above: Result Comment: [facility] potassium values may be up to 0.5 mmol/L lower than serum values. Performed By: #### L [id number] ####Documentation Writer: NADIA FRENCH ([id number])[address] Sodium [Moles/Vol] 137 mmol/L Normal 136-145 [facility] Comment on above: Performed By: #### L [id number] ####Documentation Writer: NADIA FRENCH ([id number])[facility])[address] [place] [address] Urea nitrogen [Mass/Vol] 33 mg/dL High 9-23 [facility] Comment on above: Performed By: #### L [id number] ####Documentation Writer: NADIA [id number])[facility])[address] [place] [address] Basic metabolic 1998 panelon 06-20-2025 Anion gap [Moles/Vol] 7 mmol/L 3 - 13 mmol/L [facility] Calcium [Mass/Vol] 7.4 mg/dL Low 8.8 - 10. 0 mg/dL [facility] Chloride [Moles/Vol] 111 mmol/L High 98 - 10 7 mmol/L [facility] CO2 [Moles/Vol] 19 mmol/L Low 23 - 31 mmol/L [facility] Creatinine [Mass/Vol] 1.15 mg/dL High 0.57 - 1.11 mg/dL [facility] GFR/1.73 sq M.predicted (S/P/Bld) [Vol rate/Area] 54.3 mL/min Low - PINF [facility] Glucose [Mass/Vol] 77 mg/dL Low 82 - 115 mg/dL [facility] Interpretation and review of laboratory results Abnormal [facility] Potassium [Moles/Vol] 4.3 mmol/L 3.5 - 5.1 mmol/L [facility] Sodium [Moles/Vol] 137 mmol/L 136 - 145 mmol/L [facility] Urea nitrogen [Mass/Vol] 33 mg/dL High 9 - 23 mg/dL [facility] CBC W Auto Differential pane l (Bld)on 06-20-2025 Erythrocyte distribution width (RBC) [Ratio] 22.5 % High 11.5 - 15.0 % [facility] Hematocrit (Bld) [Volume fraction] 25.8 % Low 35.0 - 47.0 % [facility] Hemoglobin (Bld) [Mass/Vol] 7.7 g/dL Low 11.7 - 16.0 g/dL [facility] Interpretation and review of laboratory results Abnormal [facility] IPF 2 [facility] MCH (RBC) [Entitic mass] 24.1 pg Low 26.0 - 34.0 pg [facility] MCHC (RBC) [Mass/Vol] 29.8 % Low 30.5 - 36.0 % [facility] MCV (RBC) [Entitic vol] 80.6 fL 77.0 - 99.0 fL [facility] Platelet mean volume (Bld) [Entitic vol] 9.5 fL 9.0 - 12.7 fL [facility] Platelets (Bld) [#/Vol] 339 10*3/uL 140 - 440 10*3/uL [facility] RBC (Bld) [#/Vol] 3.2 10*6/uL Low 3.80 - 5.20 10*6/uL [facility] WBC (Bld) [#/Vol] 9.1 10*3/uL 3.6 - 10.7 10*3/uL [facility] CBC WITH AUTO DIFFERENTIALon 06-20-2025 Erythrocyte distribution width (RBC) [Ratio] 22.5 % High 11.5-15.0 [facility] Comment on above: Performed By: #### L [id number], [id number] ####Documentation Writer: NADIA FRENCH ([id number])[facility])[address] [place] [address] Hematocrit (Bld) [Volume fraction] 25.8 % Low 35.0-47.0 [facility] Comment on above: Performed By: #### Jama [id number], [id number] ####Documentation Writer: NADIA FRENCH ([id number])[facility])[address] [place] [address] Hemoglobin (Bld) [Mass/Vol] 7.7 g/dL Low 11.7-16.0 [facility] Comment on above: Performed By: #### L [id number], [id number] ####Documentation Writer: NADIA FRENCH ([id number])[facility])[address] [place] [address] IPF 2 Normal [facility] Comment on above: Performed By: #### L [id number], [id number] ####Documentation Writer: NADIA FRENCH ([id number])[facility])[address] [place] [address] MCH (RBC) [Entitic mass] 24.1 pg Low 26.0-34.0 [facility] Comment on above: Performed By: #### L [id number], [id number] ####Documentation Writer: NADIA FRENCH ([id number])[facility])[address] [place] [address] MCHC 29.8 % Low 30.5-36.0 [facility] Comment on above: Performed By: #### L [id number], [id number] ####Documentation Writer: NADIA FRENCH ([id number])[facility])[address] [place] [address] MCV (RBC) [Entitic vol] 80.6 fL Normal 77.0-99.0 [facility] Comment on above: Performed By: #### L [id number], [id number] ####Documentation Writer: NADIA FRENCH ([id number])[facility] ([facility])[address] [place] [address] Platelet mean volume (Bld) [Entitic vol] 9.5 fL Normal 9.0-12.7 [facility] Comment on above: Performed By: #### L [id number], [id number] ####Documentation Writer: NADIA FRENCH ([id number])[facility] ([facility])[address] [place] [address] Platelets (Bld) [#/Vol] 339 10*3/uL Normal 140-440 [facility] Comment on above: Performed By: #### L [id number], [id number] ####Documentation Writer: NADIA FRENCH ([id number])[facility])[address] [place] [address] RBC (Bld) [#/Vol] 3.20 10*6/uL Low 3.80-5.20 [facility] Comment on above: Performed By: #### L [id number], [id number] ####Documentation Writer: NADIA FRENCH ([id number])[facility])[address] [place] [address] WBC (Bld) [#/Vol] 9.1 10*3/uL Normal 3.6-10.7 [facility] Comment on above: Performed By: #### L [id number], [id number] ####Documentation Writer: NADIA FRENCH ([id number])[facility] ([facility])[address] [place] [address] Laboratory - Chemistry and C hemistry - challengeon 06-20-2025 Sodium (24H U) [Mass/Vol] 91 mmol/L [facility] Laboratory - Hematology and Cell countson 06-20-2025 Anisocytosis Ql (Bld) Moderate Abnormal (none) [facility] Band form neutrophils (Bld) [#/Vol] 0.1 10*3/uL High NINF - 0.0 10*3/uL [facility] Band form neutrophils/100 WBC (Bld) 1 % High NINF - 0 % [facility] Basophils (Bld) [#/Vol] 0.1 10*3/uL 0.0 - 0.2 10*3/uL [facility] Basophils/100 WBC (Bld) 1 % 0 - 2 % [facility] [place] cells LM Ql (Bld) Slight Abnormal (none) [facility] Eosinophils (Bld) [#/Vol] 0.1 10*3/uL 0.0 - 0.5 10*3/uL [facility] Eosinophils/100 WBC (Bld) 1 % 0 - 6 % [facility] Hypochromia Ql (Bld) Slight Abnormal (none) [facility] Lymphocytes (Bld) [#/Vol] 1.5 10*3/uL 1.0 - 4.3 10*3/uL [facility] Lymphocytes/100 WBC (Bld) 17 % 15 - 45 % [facility] Macrocytes Ql (Bld) Slight Abnormal (none) [facility] Microcytes Ql (Bld) Moderate Abnormal (none) [facility] Monocytes (Bld) [#/Vol] 0.5 10*3/uL 0.0 - 0.9 10*3/uL [facility] Monocytes/100 WBC (Bld) 6 % 5 - 13 % [facility] Neutrophils (Bld) [#/Vol] 6.7 10*3/uL 1.8 - 7.5 10*3/uL [facility] Ovalocytes LM Ql (Bld) Slight Abnormal (none) [facility] Poikilocytosis LM Ql (Bld) Slight Abnormal (none) [facility] RBC morphology finding Nom (Bld) abnormal [facility] Schistocytes LM Ql (Bld) Slight Abnormal (none) [facility] Segmented neutrophils/100 WBC (Bld) 73 % 38 - 82 % [facility] MANUAL DIFFERENTIAL (CELLAVI JOHN)on 06-20-2025 ANISOCYTOSIS PRESENCE IN BLOOD BY LIGHT MICROSCOPY Moderate Abnormal (none) [facility] Comment on above: Performed By: #### L [id number], [id number] ####Documentation Writer: NADIA FRENCH ([id number])[facility] ([facility])[address] [place] [address] BAND NEUTROPHILS TOTAL PER COUNTED LEUKOCYTES BY MANUAL COUNT 1 Normal [facility] Comment on above: Performed By: #### L [id number], [id number] ####Documentation Writer: NADIA FRENCH ([id number])[facility] ([facility])[address] [place] [address] [place] BANDS (10*3/UL) IN BLOOD-CELLAVISION 0.1 10*3/uL High <=0.0 [facility] Comment on above: Performed By: #### L [id number], [id number] ####Documentation Writer: NADIA FRENCH ([id number])[facility] ([facility])[address] [place] [address] [place] BASOPHILS (10*3/UL) IN BLOOD-CELLAVISION 0.1 10*3/uL Normal 0.0-0.2 [facility] Comment on above: Performed By: #### L [id number], [id number] ####Documentation Writer: NADIA FRENCH ([id number])[facility] ([facility])[address] [place] [address] [place] BASOPHILS TOTAL PER COUNTED LEUKOCYTES BY MANUAL COUNT 1 Normal [facility] Comment on above: Performed By: #### L [id number], [id number] ####Documentation Writer: NADIA FRENCH ([id number])[facility] ([facility])[address] [place] [address] [place] BASOPHILS/100 LEUKOCYTES IN BLOOD-CELLAVISION 1 % Normal 0-2 [facility] Comment on above: Performed By: #### L [id number], [id number] ####Documentation Writer: NADIA FRENCH ([id number])[facility] ([facility])[address] [place] [address] [place] BLASTS TOTAL PER COUNTED LEUKOCYTES BY MANUAL COUNT Normal [facility] Comment on above: Performed By: #### L [id number], [id number] ####Documentation Writer: NADIA FRENCH ([id number])[facility])[address] [place] [address] [place] JUAN FRANCISCO CELLS PRESENCE IN BLOOD BY LIGHT MICROSCOPY Slight Abnormal (none) [facility] Comment on above: Performed By: #### L [id number], [id number] ####Documentation Writer: NADIA FRENCH ([id number])[facility] ([facility])[address] [place] [address] [place] EOSINOPHILS (10*3/UL) IN BLOOD-CELLAVISION 0.1 10*3/uL Normal 0.0-0.5 [facility] Comment on above: Performed By: #### L [id number], [id number] ####Documentation Writer: NADIA FRENCH ([id number])[facility] ([facility])[address] [place] [address] [place] EOSINOPHILS TOTAL PER COUNTED LEUKOCYTES BY MANUAL COUNT 1 Normal 0-1 [facility] Comment on above: Performed By: #### L [id number], [id number] ####Documentation Writer: NADIA FRENCH ([id number])[facility])[address] [place] [address] [place] EOSINOPHILS/100 LEUKOCYTES IN BLOOD-CELLAVISION 1 % Normal 0-6 [facility] Comment on above: Performed By: #### L [id number], [id number] ####Documentation Writer: NADIA FRENCH ([id number])[facility] ([facility])[address] [place] [address] [place] HYPOCHROMIA (PRESENCE) IN BLOOD BY LIGHT MICROSCOPY Slight Abnormal (none) [facility] Comment on above: Performed By: #### L [id number], [id number] ####Documentation Writer: NADIA FRENCH ([id number])[facility] ([facility])[address] [place] [address] [place] LYMPHOCYTES (10*3/UL) IN BLOOD-CELLAVISION 1.5 10*3/uL Normal 1.0-4.3 [facility] Comment on above: Performed By: #### L [id number], [id number] ####Documentation Writer: NADIA FRENCH ([id number])[facility])[address] [place] [address] LYMPHOCYTES TOTAL PER COUNTED LEUKOCYTES BY MANUAL COUNT 17 Normal [facility] Comment on above: Performed By: #### L [id number], [id number] ####Documentation Writer: NADIA FRENCH ([id number])[facility])[address] [place] [address] [place] LYMPHOCYTES/100 LEUKOCYTES IN BLOOD-CELLAVISION 17 % Normal 15-45 [facility] Comment on above: Performed By: #### L [id number], [id number] ####Documentation Writer: NADIA FRENCH ([id number])[facility])[address] [place] [address] MACROCYTES (PRESENCE) IN BLOOD BY LIGHT MICROSCOPY Slight Abnormal (none) [facility] Comment on above: Performed By: #### L [id number], [id number] ####Documentation Writer: NADIA FRENCH ([id number])[facility])[address] [place] [address] METAMYELOCYTES TOTAL PER COUNTED LEUKOCYTES BY MANUAL COUNT Normal [facility] Comment on above: Performed By: #### L [id number], [id number] ####Documentation Writer: NADIA FRENCH ([id number])[facility])[address] [place] [address] MICROCYTES (PRESENCE) IN BLOOD BY LIGHT MICROSCOPY Moderate Abnormal (none) [facility] Comment on above: Performed By: #### L [id number], [id number] ####Documentation Writer: NADIA FRENCH ([id number])[facility])[address] [place] [address] MONOCYTES (10*3/UL) IN BLOOD-CELLAVISION 0.5 10*3/uL Normal 0.0-0.9 [facility] Comment on above: Performed By: #### L [id number] ####Documentation Writer: NADIA FRENCH ([id number])[facility] ([facility])[address] [place] [address] [place] MONOCYTES TOTAL PER COUNTED LEUKOCYTES BY MANUAL COUNT 6 Normal [facility] Comment on above: Performed By: #### L [id number] ####Documentation Writer: NADIA FRENCH ([id number])[facility] ([facility])[address] [place] [address] [place] MONOCYTES/100 LEUKOCYTES IN BLOOD-JAMEEL 6 % Normal 5-13 [facility] Comment on above: Performed By: #### L [id number], [id number] ####Documentation Writer: NADIA FRENCH ([id number])[facility] ([facility])[address] [place] [address] [place] MYELOCYTES COUNTED BY MANUAL COUNT Normal [facility] Comment on above: Performed By: #### L [id number], [id number] ####Documentation Writer: NADIA FRENCH ([id number])[facility] ([facility])[address] [place] [address] [place] NEUTROPHILS BAND FORM/100 LEUKOCYTES IN BLOOD-CELLAVISI 1 % High <=0 [facility] Comment on above: Performed By: #### L [id number], [id number] ####Documentation Writer: NADIA FRENCH ([id number])[facility] ([facility])[address] [place] [address] [place] NEUTROPHILS TOTAL PER COUNTED LEUKOCYTES BY MANUAL COUNT 74 Normal [facility] Comment on above: Performed By: #### L [id number], [id number] ####Documentation Writer: NADIA FRENCH ([id number])[facility] ([facility])[address] [place] [address] [place] OVALOCYTES PRESENCE IN BLOOD BY LIGHT MICROSCOPY Slight Abnormal (none) [facility] Comment on above: Performed By: #### L [id number], [id number] ####Documentation Writer: NADIA FRENCH ([id number])[facility] ([facility])[address] [place] [address] [place] POIKILOCYTOSIS (PRESENCE) IN BLOOD BY LIGHT MICROSCOPY Slight Abnormal (none) [facility] Comment on above: Performed By: #### L [id number], [id number] ####Documentation Writer: NADIA FRENCH ([id number])[facility] ([facility])[address] [place] [address] [place] PROMYELOCYTES TOTAL PER COUNTED LEUKOCYTES BY MANUAL COUNT Normal [facility] Comment on above: Performed By: #### L [id number], [id number] ####Documentation Writer: NADIA FRENCH ([id number])[facility] ([facility])[address] [place] [address] RBC MORPHOLOGY IN BLOOD abnormal Normal [facility] Comment on above: Performed By: #### L [id number], [id number] ####Documentation Writer: NADIA FRENCH ([id number])[facility] ([facility])[address] [place] [address] SCHISTOCYTES (PRESENCE) IN BLOOD BY LIGHT MICROSCOPY Slight Abnormal (none) [facility] Comment on above: Performed By: #### L [id number], [id number] ####Documentation Writer: NADIA FRENCH ([id number])[facility] ([facility])[address] [place] [address] [place] SEGMENTED NEUTROPHILS (10*3/UL) IN BLOOD-CELLAVISION 6.7 10*3/uL Normal 1.8-7.5 [facility] Comment on above: Performed By: #### L [id number], [id number] ####Documentation Writer: NADIA FRENCH ([id number])[facility])[address] [place] [address] [place] SEGMENTED NEUTROPHILS/100 LEUKOCYTES-CE 73 % Normal 38-82 [facility] Comment on above: Performed By: #### L [id number], [id number] ####Documentation Writer: NADIA FRENCH ([id number])[facility] ([facility])[address] [place] [address] [place] UNCLASSIFIED CELLS TOTAL PER COUNTED LEUKOCYTES BY MANUAL COUNT Normal [facility] Comment on above: Performed By: #### L [id number], [id number] ####Documentation Writer: NADIA FRENCH ([id number])[address] VARIANT LYMPHOCYTES TOTAL PER COUNTED LEUKOCYTES BY MANUAL COUNT Normal [facility] Comment on above: Performed By: #### L [id number], [id number] ####Documentation Writer: NADIA FRENCH ([id number])[address] No Panel Informationon 06-20 CREATININE, URINE 38.4 mg/dL Low 47.0 - 110.0 mg/dL [facility] Interpretation and review of laboratory results Abnormal [facility] SODIUM, URINE, FRACTIONAL EXCRETION 2 [facility] SODIUM, URINE, TUBULAR REABSORPTION 1 [facility] 1 [facility] Basophils Manual 1 [facility] Eosinophils Manual 1 0 - 1 [facility] Interpretation and review of laboratory results Abnormal [facility] Lymphocytes Manual 17 [facility] Monocytes Manual 6 [facility] Neutrophils Manual 74 [facility] Nursing Noteon 06-20-2025 Nursing Note Report called to RN on H5. RN has no further questions at this time Normal [facility] Nursing Note Normal [facility] Progress Noteon 06-20-2025 Progress Note Normal [facility] Progress Note Normal [facility] Progress Note Normal [facility] Progress Note Normal [facility] Progress Note Normal [facility] SODIUM, URINE, RANDOMon 05-29 CREATININE, URINE 38.4 mg/dL Low 47.0-110.0 [facility] Comment on above: Performed By: #### L [id number] ####Documentation Writer: NADIA FRENCH ([id number])[address] Sodium (U) [Moles/Vol] 91 mmol/L Normal [facility] Comment on above: Performed By: #### L [id number] ####Documentation Writer: NADIA [id number])[address] SODIUM, URINE, FRACTIONAL EXCRETION 2.0 Normal [facility] Comment on above: Performed By: #### L [id number] ####Documentation Writer: NADIA FRENCH ([id number])[facility] ([facility])[address] [place] [address] SODIUM, URINE, TUBULAR REABSORPTION 1.0 Normal [facility] Comment on above: Performed By: #### L [id number] ####Documentation Writer: NADIA FRENCH ([id number])[facility] ([facility])[address] [place] [address] XR CHEST 1 VIEWon 06-20-2025 XR CHEST 1 VIEW Normal [facility] XR Chest Single viewon 06-20 [facility] Radiology Study observation (narrative) [facility] XR Chest Single viewOrdered By: Mike Mcgrath on 06-20-2025 [facility] Work Phone: BLOOD TYPE AND SCREEN GELon 06-19-2025 ABO GROUPING A Normal [facility] Comment on above: Performed By: #### L [id number] ####Documentation Writer: NADIA FRENCH ([id number])[facility] BLOOD B[facility] ([facility])[address] [place] [address] RH TYPE IN BLOOD Positive Normal [facility] Comment on above: Performed By: #### L [id number] ####Documentation Writer: NADIA FRENCH ([id number])[facility] BLOOD [facility] ([facility])[address] [place] [address] Blood type and Crossmatch pa ciaran (Bld)on 06-19-2025 ABO group Nom (Bld) A [facility] Blood group antibody screen GEL Ql Negative [facility] D Ag Ql (RBC) Positive [facility] CBC W Auto Differential pane l (Bld)Ordered By: Darin Maki on 06-19-2025 Basophils (Bld) [#/Vol] 0.1 10*3/uL 0.0 - 0.2 10*3/uL [facility] Basophils/100 WBC (Bld) 0.6 % 0.0 - 2.0 % [facility] Eosinophils (Bld) [#/Vol] 0.2 10*3/uL 0.0 - 0.5 10*3/uL [facility] Eosinophils/100 WBC (Bld) 2.4 % 0.0 - 6.0 % [facility] Erythrocyte distribution width (RBC) [Ratio] 24.5 % High 11.5 - 15.0 % [facility] Hematocrit (Bld) [Volume fraction] 23.7 % Low 35.0 - 47.0 % [facility] Hemoglobin (Bld) [Mass/Vol] 6.7 g/dL Critically low 11.7 - 16.0 g/dL [facility] Immature granulocytes (Bld) [#/Vol] 0 10*3/uL NINF - 0.1 10*3/uL [facility] Immature granulocytes/100 WBC (Bld) 0.3 % 0.0 - 2.0 % [facility] Interpretation and review of laboratory results Abnormal [facility] Lymphocytes (Bld) [#/Vol] 1.2 10*3/uL 1.0 - 4.3 10*3/uL [facility] Lymphocytes/100 WBC (Bld) 12.4 % Low 15.0 - 45.0 % [facility] MCH (RBC) [Entitic mass] 23.3 pg Low 26.0 - 34.0 pg [facility] MCHC (RBC) [Mass/Vol] 28.3 % Low 30.5 - 36.0 % [facility] MCV (RBC) [Entitic vol] 82.3 fL 77.0 - 99.0 fL [facility] Monocytes (Bld) [#/Vol] 0.7 10*3/uL 0.0 - 0.9 10*3/uL [facility] Monocytes/100 WBC (Bld) 7.4 % 5.0 - 13.0 % [facility] Neutrophils (Bld) [#/Vol] 7.5 10*3/uL 1.8 - 7.5 10*3/uL [facility] Neutrophils/100 WBC (Bld) 76.9 % 38.0 - 82.0 % [facility] Nucleated RBC/100 WBC (Bld) [Ratio] 0 % [facility] Platelet mean volume (Bld) [Entitic vol] 9.1 fL 9.0 - 12.7 fL [facility] Platelets (Bld) [#/Vol] 353 10*3/uL 140 - 440 10*3/uL [facility] RBC (Bld) [#/Vol] 2.88 10*6/uL Low 3.80 - 5.20 10*6/uL [facility] WBC (Bld) [#/Vol] 9.7 10*3/uL 3.6 - 10.7 10*3/uL [facility] CBC WITH AUTO DIFFERENTIALon 06-19-2025 Basophils (Bld) [#/Vol] 0.1 10*3/uL Normal 0.0-0.2 [facility] Comment on above: Performed By: #### L [id number] ####Documentation Writer: NADIA FRENCH ([id number])[facility])[address] [place] [address] Basophils/100 WBC (Bld) 0.6 % Normal 0.0-2.0 [facility] Comment on above: Performed By: #### L [id number] ####Documentation Writer: NADIA FRENCH ([id number])[facility])[address] [place] [address] Eosinophils (Bld) [#/Vol] 0.2 10*3/uL Normal 0.0-0.5 [facility] Comment on above: Performed By: #### L [id number] ####Documentation Writer: NADIA FRENCH ([id number])[facility])[address] [place] [address] Eosinophils/100 WBC (Bld) 2.4 % Normal 0.0-6.0 [facility] Comment on above: Performed By: #### L [id number] ####Documentation Writer: NADIA FRENCH ([id number])[facility])[address] [place] [address] Erythrocyte distribution width (RBC) [Ratio] 24.5 % High 11.5-15.0 [facility] Comment on above: Performed By: #### L [id number] ####Documentation Writer: NADIA FRENCH ([id number])[facility])[address] [place] [address] Hematocrit (Bld) [Volume fraction] 23.7 % Low 35.0-47.0 [facility] Comment on above: Performed By: #### L [id number] ####Documentation Writer: NADIA FRENCH ([id number])[address] Hemoglobin (Bld) [Mass/Vol] 6.7 g/dL Critically low 11.7-16.0 [facility] Comment on above: Performed By: #### L [id number] ####Documentation Writer: NADIA FRENCH ([id number])[facility])[address] [place] [address] IMMATURE GRANS % 0.3 % Normal 0.0-2.0 [facility] Comment on above: Performed By: #### L [id number] ####Documentation Writer: NADIA FRENCH ([id number])[address] IMMATURE GRANS ABSOLUTE 0.0 10*3/uL Normal <0.1 [facility] Comment on above: Performed By: #### L [id number] ####Documentation Writer: NADIA FRENCH ([id number])[address] Lymphocytes (Bld) [#/Vol] 1.2 10*3/uL Normal 1.0-4.3 [facility] Comment on above: Performed By: #### L [id number] ####Documentation Writer: NADIA FRENCH ([id number])[address] Lymphocytes/100 WBC (Bld) 12.4 % Low 15.0-45.0 [facility] Comment on above: Performed By: #### L [id number] ####Documentation Writer: NADIA FRENCH ([id number])[address] MCH (RBC) [Entitic mass] 23.3 pg Low 26.0-34.0 [facility] Comment on above: Performed By: #### L [id number] ####Documentation Writer: NADIA FRENCH ([id number])[facility] ([facility])[address] [place] [address] MCHC 28.3 % Low 30.5-36.0 [facility] Comment on above: Performed By: #### L [id number] ####Documentation Writer: NADIA FRENCH ([id number])[facility] ([facility])[address] [place] [address] MCV (RBC) [Entitic vol] 82.3 fL Normal 77.0-99.0 [facility] Comment on above: Performed By: #### L [id number] ####Documentation Writer: NADIA FRENCH ([id number])[facility] ([facility])[address] [place] [address] Monocytes (Bld) [#/Vol] 0.7 10*3/uL Normal 0.0-0.9 [facility] Comment on above: Performed By: #### L [id number] ####Documentation Writer: NADIA FRENCH ([id number])[facility] ([facility])[address] [place] [address] Monocytes/100 WBC (Bld) 7.4 % Normal 5.0-13.0 [facility] Comment on above: Performed By: #### L [id number] ####Documentation Writer: NADIA FRENCH ([id number])[facility] ([facility])[address] [place] [address] NEUTROPHILS ABSOLUTE 7.5 10*3/uL Normal 1.8-7.5 [facility] Comment on above: Performed By: #### L [id number] ####Documentation Writer: NADIA FRENCH ([id number])[facility] ([facility])[address] [place] [address] Neutrophils/100 WBC (Bld) 76.9 % Normal 38.0-82.0 [facility] Comment on above: Performed By: #### L [id number] ####Documentation Writer: NADIA FRENCH ([id number])[facility] ([facility])[address] [place] [address] NRBC 0.0 /100 WBCs Normal 0.0-2.0 [facility] Comment on above: Performed By: #### L [id number] ####Documentation Writer: NADIA FRENCH ([id number])[facility])[address] [place] [address] Platelet mean volume (Bld) [Entitic vol] 9.1 fL Normal 9.0-12.7 [facility] Comment on above: Performed By: #### L [id number] ####Documentation Writer: NADIA FRENCH ([id number])[facility] ([facility])[address] [place] [address] Platelets (Bld) [#/Vol] 353 10*3/uL Normal 140-440 [facility] Comment on above: Performed By: #### L [id number] ####Documentation Writer: NADIA FRENCH ([id number])[facility] ([facility])[address] [place] [address] RBC (Bld) [#/Vol] 2.88 10*6/uL Low 3.80-5.20 [facility] Comment on above: Performed By: #### L [id number] ####Documentation Writer: NADIA FRENCH ([id number])[facility] ([facility])[address] [place] [address] WBC (Bld) [#/Vol] 9.7 10*3/uL Normal 3.6-10.7 [facility] Comment on above: Performed By: #### L [id number] ####Documentation Writer: NADIA FRENCH ([id number])[facility] ([facility])[address] [place] [address] COMPREHENSIVE METABOLIC PANE David 06-19-2025 Albumin [Mass/Vol] 1.6 g/dL Low 3.4-4.8 [facility] Comment on above: Performed By: #### L [id number] ####Documentation Writer: NADIA FRENCH ([id number])[facility])[address] [place] [address] [place] ALP [Catalytic activity/Vol] 65 U/L Normal 40-150 [facility] Comment on above: Performed By: #### L [id number] ####Documentation Writer: NADIA FRENCH ([id number])[facility] ([facility])[address] [place] [address] ALT [Catalytic activity/Vol] 6 U/L Normal <30 [facility] Comment on above: Performed By: #### L [id number] ####Documentation Writer: NADIA FRENCH ([id number])[facility] ([facility])[address] [place] [address] Anion gap [Moles/Vol] 7 mmol/L Normal 3-13 [facility] Comment on above: Performed By: #### L [id number] ####Documentation Writer: NADIA FRENCH ([id number])[facility] ([facility])[address] [place] [address] AST [Catalytic activity/Vol] 22 U/L Normal <34 [facility] Comment on above: Performed By: #### L [id number] ####Documentation Writer: NADIA FRENCH ([id number])[facility] ([facility])[address] [place] [address] Bilirubin [Mass/Vol] 0.8 mg/dL Normal <1.2 [facility] Comment on above: Performed By: #### L [id number] ####Documentation Writer: NADIA FRENCH ([id number])[facility] ([facility])[address] [place] [address] Calcium [Mass/Vol] 7.9 mg/dL Low 8.8-10.0 [facility] Comment on above: Performed By: #### L [id number] ####Documentation Writer: NADIA FRENCH ([id number])[facility] ([facility])[address] [place] [address] [place] Chloride [Moles/Vol] 107 mmol/L Normal 98-107 [facility] Comment on above: Performed By: #### L [id number] ####Documentation Writer: NADIA FRENCH ([id number])[facility] ([facility])[address] [place] [address] CO2 [Moles/Vol] 22 mmol/L Low 23-31 [facility] Comment on above: Performed By: #### L [id number] ####Documentation Writer: NADIA FRENCH ([id number])[facility])[address] [place] [address] Creatinine [Mass/Vol] 1.16 mg/dL High 0.57-1.11 [facility] Comment on above: Performed By: #### L [id number] ####Documentation Writer: NADIA FRENCH ([id number])[facility] ([facility])[address] [place] [address] GLOMERULAR FILTRATION RATE ML/MIN/1.73 SQ M.PREDICTED 53.7 mL/min/1.73m*2 Low >60.0 [facility] Comment on above: Result Comment: Calc ulation based on the Chronic Kidney Disease Epidemiology Collaboration (CKD-EPI) equation refit without adjustment for race Performed By: #### L [id number] ####Documentation Writer: NADIA FRENCH ([id number])[facility] ([facility])[address] [place] [address] Glucose [Mass/Vol] 86 mg/dL Normal 82-115 [facility] Comment on above: Performed By: #### L [id number] ####Documentation Writer: NADIA FRENCH ([id number])[facility])[address] [place] [address] Potassium [Moles/Vol] 4.2 mmol/L Normal 3.5-5.1 [facility] Comment on above: Result Comment: [facility] potassium values may be up to 0.5 mmol/L lower than serum values. Performed By: #### L [id number] ####Documentation Writer: NADIA FRENCH ([id number])[facility])[address] [place] [address] Protein [Mass/Vol] 5.6 g/dL Low 6.4-8.3 [facility] Comment on above: Performed By: #### L [id number] ####Documentation Writer: NADIA FRENCH ([id number])[facility] [place] [address] Sodium [Moles/Vol] 136 mmol/L Normal 136-145 [facility] Comment on above: Performed By: #### L [id number] ####Documentation Writer: NADIA FRENCH ([id number])[facility])[address] [place] [address] Urea nitrogen [Mass/Vol] 33 mg/dL High 9-23 [facility] Comment on above: Performed By: #### L [id number] ####Documentation Writer: NADIA FRENCH ([id number])[facility] ([facility])[address] [place] [address] Comprehensive metabolic 1998 panelon 06-19-2025 Albumin [Mass/Vol] 1.6 g/dL Low 3.4 - 4.8 g/dL [facility] ALP [Catalytic activity/Vol] 65 U/L 40 - 150 U/L [facility] ALT [Catalytic activity/Vol] 6 U/L NINF - 30 U/L [facility] Anion gap [Moles/Vol] 7 mmol/L 3 - 13 mmol/L [facility] AST [Catalytic activity/Vol] 22 U/L [facility] - [facility] U/L [facility] Bilirubin [Mass/Vol] 0.8 mg/dL NINF - 1.2 mg/dL [facility] Calcium [Mass/Vol] 7.9 mg/dL Low 8.8 - 10. 0 mg/dL [facility] Chloride [Moles/Vol] 107 mmol/L 98 - 10 7 mmol/L [facility] CO2 [Moles/Vol] 22 mmol/L Low 23 - 31 mmol/L [facility] Creatinine [Mass/Vol] 1.16 mg/dL High 0.57 - 1.11 mg/dL [facility] GFR/1.73 sq M.predicted (S/P/Bld) [Vol rate/Area] 53.7 mL/min Low - PINF [facility] Glucose [Mass/Vol] 86 mg/dL 82 - 115 mg/dL [facility] Interpretation and review of laboratory results Abnormal [facility] Potassium [Moles/Vol] 4.2 mmol/L 3.5 - 5.1 mmol/L [facility] Protein [Mass/Vol] 5.6 g/dL Low 6.4 - 8.3 g/dL [facility] Sodium [Moles/Vol] 136 mmol/L 136 - 145 mmol/L [facility] Urea nitrogen [Mass/Vol] 33 mg/dL High 9 - 23 mg/dL [facility] HEMOGLOBIN AND HEMATOCRIT, B LOODon 06-19-2025 Hematocrit (Bld) [Volume fraction] 31.5 % Low 35.0-47.0 [facility] Comment on above: Order Comment: Recom mend 1 hour post transfusion Performed By: #### L [id number] ####Documentation Writer: NADIA FRENCH ([id number])[address] Hemoglobin (Bld) [Mass/Vol] 9.0 g/dL Low 11.7-16.0 [facility] Comment on above: Order Comment: Recom mend 1 hour post transfusion Performed By: #### L [id number] ####Documentation Writer: NADIA FRENCH ([id number])[address] Hemoglobin (Bld) [Mass/Vol]O rdered By: Catrachita Stone on 06-19-2025 Hematocrit (Bld) [Volume fraction] 31.5 % Low 35.0 - 47.0 % [facility] Interpretation and review of laboratory results Abnormal [facility] Laboratory - Drug toxicology on 06-19-2025 Vancomycin trough [Mass/Vol] 29.2 ug/mL [facility] - Hematology and Cell countsOrdered By: Catrachita Stone on 06-19-2025 Hemoglobin (Bld) [Mass/Vol] 9 g/dL Low 11.7 - 16.0 g/dL [facility] No Panel Informationon 06-19 Blood Expiration Date [id number] S [facility] Crossmatch interpretation COMP [facility] Dispense Status Transfused [facility]Nu Product Blood Type 6200 [facility] PRODUCT CODE [id number] [facility] ABO A [facility] Unit Number [id number] [facility] RH Positive [facility] Volume 300 mL [facility] Progress Noteon 06-19-2025 Progress Note Normal [facility] Progress Note Vancomycin therapy h as been discontinued by Dr. Catherine Walker on 06/19/25. Thank you for the consult. Pharmacy signing off for vancomycin dosing. Khushi Lara [facility], Date: 06/19/25 Time: 10:55 AM Normal [facility] Progress Note Normal [facility] Progress Note Normal [facility] Progress Note Normal [facility] Progress Note Normal [facility] VANCOMYCIN, AUC TIMED DOSING on 06-19-2025 VANCOMYCIN, AUC 29.2 ug/mL Normal [facility] Comment on above: Result Comment: ORDE R COMMENTS:Please draw random level at least >2 hours after the end of the last vancomycin infusion, or 30-minutes before next infusion.Toxicity is seen at concentrations >80-100 ug/mLTherapeutic (Peak) range: 20-40Therapeutic (Trough) range: 5-10 Performed By: #### L [id number] ####Documentation Writer: NADIA FRENCH ([id number])[address] Vancomycin trough [Mass/Vol] on 06-19-2025 [facility] XR CHEST 1 VIEWon 06-19-2025 XR CHEST 1 VIEW Normal [facility] XR Chest Single viewon 06-19 [facility] RADI[facility] Study observation (narrative) [facility] XR Chest Single viewOrdered By: Sofi Shea on 06-19-2025 [facility] Work Phone: [phone] 06-18-2025 [id number] 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 [facility] [id number] 06-18-2025 [id number] Normal [facility] [id number] [facility] CBC W Auto Differential pane l (Bld)on 06-18-2025 Basophils (Bld) [#/Vol] 0.1 10*3/uL 0.0 - 0.2 10*3/uL [facility] Basophils/100 WBC (Bld) 0.6 % 0.0 - 2.0 % [facility] Eosinophils (Bld) [#/Vol] 0.1 10*3/uL 0.0 - 0.5 10*3/uL [facility] Eosinophils/100 WBC (Bld) 1.4 % 0.0 - 6.0 % [facility] Erythrocyte distribution width (RBC) [Ratio] 25.1 % High 11.5 - 15.0 % [facility] Hematocrit (Bld) [Volume fraction] 25.2 % Low 35.0 - 47.0 % [facility] Hemoglobin (Bld) [Mass/Vol] 7.2 g/dL Low 11.7 - 16.0 g/dL [facility] Immature granulocytes (Bld) [#/Vol] 0.1 10*3/uL High NINF - 0.1 10*3/uL [facility] Immature granulocytes/100 WBC (Bld) 0.5 % 0.0 - 2.0 % [facility] Interpretation and review of laboratory results Abnormal [facility] Lymphocytes (Bld) [#/Vol] 1.2 10*3/uL 1.0 - 4.3 10*3/uL [facility] Lymphocytes/100 WBC (Bld) 12.4 % Low 15.0 - 45.0 % [facility] MCH (RBC) [Entitic mass] 23.2 pg Low 26.0 - 34.0 pg [facility] MCHC (RBC) [Mass/Vol] 28.6 % Low 30.5 - 36.0 % [facility] MCV (RBC) [Entitic vol] 81 fL 77.0 - 99.0 fL [facility] Monocytes (Bld) [#/Vol] 0.7 10*3/uL 0.0 - 0.9 10*3/uL [facility] Monocytes/100 WBC (Bld) 7 % 5.0 - 13.0 % [facility] Neutrophils (Bld) [#/Vol] 7.8 10*3/uL High 1.8 - 7.5 10*3/uL [facility] Neutrophils/100 WBC (Bld) 78.1 % 38.0 - 82.0 % [facility] Nucleated RBC/100 WBC (Bld) [Ratio] 0 % [facility] Platelet mean volume (Bld) [Entitic vol] 9.2 fL 9.0 - 12.7 fL [facility] Platelets (Bld) [#/Vol] 370 10*3/uL 140 - 440 10*3/uL [facility] RBC (Bld) [#/Vol] 3.11 10*6/uL Low 3.80 - 5.20 10*6/uL [facility] WBC (Bld) [#/Vol] 10 10*3/uL 3.6 - 10.7 10*3/uL [facility] CBC WITH AUTO DIFFERENTIALon 06-18-2025 Basophils (Bld) [#/Vol] 0.1 10*3/uL Normal 0.0-0.2 [facility] Comment on above: Performed By: #### L [id number] ####Documentation Writer: NADIA FRENCH ([id number])[facility] ([facility])[address] [place] [address] Basophils/100 WBC (Bld) 0.6 % Normal 0.0-2.0 [facility] Comment on above: Performed By: #### L [id number] ####Documentation Writer: NADIA FRENCH ([id number])[facility] ([facility])[address] [place] [address] Eosinophils (Bld) [#/Vol] 0.1 10*3/uL Normal 0.0-0.5 [facility] Comment on above: Performed By: #### L [id number] ####Documentation Writer: NADIA FRENCH ([id number])[facility] ([facility])[address] [place] [address] Eosinophils/100 WBC (Bld) 1.4 % Normal 0.0-6.0 [facility] Comment on above: Performed By: #### L [id number] ####Documentation Writer: NADIA FRENCH ([id number])[facility] ([facility])[address] [place] [address] Erythrocyte distribution width (RBC) [Ratio] 25.1 % High 11.5-15.0 [facility] Comment on above: Performed By: #### L [id number] ####Documentation Writer: NADIA [id number])[facility] [address] Hematocrit (Bld) [Volume fraction] 25.2 % Low 35.0-47.0 [facility] Comment on above: Performed By: #### L [id number] ####Documentation Writer: NADIA FRENCH ([id number])[facility])[address] [place] [address] Hemoglobin (Bld) [Mass/Vol] 7.2 g/dL Low 11.7-16.0 [facility] Comment on above: Performed By: #### L [id number] ####Documentation Writer: NADIA FRENCH ([id number])[facility])[address] [place] [address] IMMATURE GRANS % 0.5 % Normal 0.0-2.0 [facility] Comment on above: Performed By: #### L [id number] ####Documentation Writer: NADIA FRENCH ([id number])[facility])[address] [place] [address] IMMATURE GRANS ABSOLUTE 0.1 10*3/uL High <0.1 [facility] Comment on above: Performed By: #### L [id number] ####Documentation Writer: NADIA FRENCH ([id number])[facility])[address] [place] [address] Lymphocytes (Bld) [#/Vol] 1.2 10*3/uL Normal 1.0-4.3 [facility] Comment on above: Performed By: #### L [id number] ####Documentation Writer: NADIA FRENCH ([id number])[facility])[address] [place] [address] Lymphocytes/100 WBC (Bld) 12.4 % Low 15.0-45.0 [facility] Comment on above: Performed By: #### L [id number] ####Documentation Writer: NADIA FRENCH ([id number])[facility])[address] [place] [address] MCH (RBC) [Entitic mass] 23.2 pg Low 26.0-34.0 [facility] Comment on above: Performed By: #### L [id number] ####Documentation Writer: NADIA FRENCH ([id number])[facility])[address] [place] [address] MCHC 28.6 % Low 30.5-36.0 [facility] Comment on above: Performed By: #### L [id number] ####Documentation Writer: NADIA FRENCH ([id number])[facility])[address] [place] [address] MCV (RBC) [Entitic vol] 81.0 fL Normal 77.0-99.0 [facility] Comment on above: Performed By: #### L [id number] ####Documentation Writer: NADIA FRENCH ([id number])[facility])[address] [place] [address] Monocytes (Bld) [#/Vol] 0.7 10*3/uL Normal 0.0-0.9 [facility] Comment on above: Performed By: #### L [id number] ####Documentation Writer: NADIA FRENCH ([id number])[facility])[address] [place] [address] Monocytes/100 WBC (Bld) 7.0 % Normal 5.0-13.0 [facility] Comment on above: Performed By: #### L [id number] ####Documentation Writer: NADIA FRENCH ([id number])[facility])[address] [place] [address] NEUTROPHILS ABSOLUTE 7.8 10*3/uL High 1.8-7.5 [facility] Comment on above: Performed By: #### L [id number] ####Documentation Writer: NADIA FRENCH ([id number])[facility])[address] [place] [address] Neutrophils/100 WBC (Bld) 78.1 % Normal 38.0-82.0 [facility] Comment on above: Performed By: #### L [id number] ####Documentation Writer: NADIA FRENCH ([id number])[facility] ([facility])[address] [place] [address] NRBC 0.0 /100 WBCs Normal 0.0-2.0 [facility] Comment on above: Performed By: #### L [id number] ####Documentation Writer: NADIA FRENCH ([id number])[facility] ([facility])[address] [place] [address] Platelet mean volume (Bld) [Entitic vol] 9.2 fL Normal 9.0-12.7 [facility] Comment on above: Performed By: #### L [id number] ####Documentation Writer: NADIA FRENCH ([id number])[facility] ([facility])[address] [place] [address] Platelets (Bld) [#/Vol] 370 10*3/uL Normal 140-440 [facility] Comment on above: Performed By: #### L [id number] ####Documentation Writer: NADIA FRENCH ([id number])[facility] ([facility])[address] [place] [address] RBC (Bld) [#/Vol] 3.11 10*6/uL Low 3.80-5.20 [facility] Comment on above: Performed By: #### L [id number] ####Documentation Writer: NADIA FRENCH ([id number])[facility] ([facility])[address] [place] [address] WBC (Bld) [#/Vol] 10.0 10*3/uL Normal 3.6-10.7 [facility] Comment on above: Performed By: #### L [id number] ####Documentation Writer: NADIA FRENCH ([id number])[facility])[address] [place] [address] COMPREHENSIVE METABOLIC PANE David 06-18-2025 Albumin [Mass/Vol] 1.7 g/dL Low 3.4-4.8 [facility] Comment on above: Performed By: #### L [id number] ####Documentation Writer: NADIA FRENCH ([id number])[facility])[address] [place] [address] ALP [Catalytic activity/Vol] 73 U/L Normal 40-150 [facility] Comment on above: Performed By: #### L [id number] ####Documentation Writer: NADIA FRENCH ([id number])[facility] ([facility])[address] [place] [address] ALT [Catalytic activity/Vol] 9 U/L Normal <30 [facility] Comment on above: Performed By: #### L [id number] ####Documentation Writer: NADIA FRENCH ([id number])[facility] ([facility])[address] [place] [address] Anion gap [Moles/Vol] 7 mmol/L Normal 3-13 [facility] Comment on above: Performed By: #### L [id number] ####Documentation Writer: NADIA FRENCH ([id number])[facility] ([facility])[address] [place] [address] AST [Catalytic activity/Vol] 18 U/L Normal <34 [facility] Comment on above: Performed By: #### L [id number] ####Documentation Writer: NADIA FRENCH ([id number])[facility] ([facility])[address] [place] [address] Bilirubin [Mass/Vol] 0.7 mg/dL Normal <1.2 [facility] Comment on above: Performed By: #### L [id number] ####Documentation Writer: NADIA FRENCH ([id number])[facility] ([facility])[address] [place] [address] Calcium [Mass/Vol] 8.1 mg/dL Low 8.8-10.0 [facility] Comment on above: Performed By: #### L [id number] ####Documentation Writer: NADIA FRENCH ([id number])[facility])[address] [place] [address] Chloride [Moles/Vol] 107 mmol/L Normal 98-107 [facility] Comment on above: Performed By: #### L [id number] ####Documentation Writer: NADIA FRENCH ([id number])[facility] ([facility])[address] [place] [address] CO2 [Moles/Vol] 23 mmol/L Normal 23-31 [facility] Comment on above: Performed By: #### L [id number] ####Documentation Writer: NADIA FRENCH ([id number])[facility])[address] [place] [address] Creatinine [Mass/Vol] 1.06 mg/dL Normal 0.57-1.11 [facility] Comment on above: Performed By: #### L [id number] ####Documentation Writer: NADIA FRENCH ([id number])[facility])[address] [place] [address] GLOMERULAR FILTRATION RATE ML/MIN/1.73 SQ M.PREDICTED 59.9 mL/min/1.73m*2 Low >60.0 [facility] Comment on above: Result Comment: Calc ulation based on the Chronic Kidney Disease Epidemiology Collaboration (CKD-EPI) equation refit without adjustment for race Performed By: #### L [id number] ####Documentation Writer: NADIA FRENCH ([id number])[facility])[address] [place] [address] Glucose [Mass/Vol] 90 mg/dL Normal 82-115 [facility] Comment on above: Performed By: #### L [id number] ####Documentation Writer: NADIA FRENCH ([id number])[facility])[address] [place] [address] Potassium [Moles/Vol] 4.2 mmol/L Normal 3.5-5.1 [facility] Comment on above: Performed By: #### L [id number] ####Documentation Writer: NADIA FRENCH ([id number])[facility])[address] [place] [address] Protein [Mass/Vol] 6.0 g/dL Low 6.4-8.3 [facility] Comment on above: Performed By: #### L [id number] ####Documentation Writer: NADIA FRENCH ([id number])[facility] ([facility])[address] [place] [address] Sodium [Moles/Vol] 137 mmol/L Normal 136-145 [facility] Comment on above: Performed By: #### L [id number] ####Documentation Writer: NADIA FRENCH ([id number])[facility])[address] [place] [address] Urea nitrogen [Mass/Vol] 32 mg/dL High 9-23 [facility] Comment on above: Performed By: #### L [id number] ####Documentation Writer: NADIA FRENCH ([id number])[facility])[address] [place] [address] Comprehensive metabolic 1998 panelon 06-18-2025 Albumin [Mass/Vol] 1.7 g/dL Low 3.4 - 4.8 g/dL [facility] ALP [Catalytic activity/Vol] 73 U/L 40 - 150 U/L [facility] ALT [Catalytic activity/Vol] 9 U/L NINF - 30 U/L [facility] Anion gap [Moles/Vol] 7 mmol/L 3 - 13 mmol/L [facility] AST [Catalytic activity/Vol] 18 U/L [facility] - [facility] U/L [facility] Bilirubin [Mass/Vol] 0.7 mg/dL NINF - 1.2 mg/dL [facility] Calcium [Mass/Vol] 8.1 mg/dL Low 8.8 - 10. 0 mg/dL [facility] Chloride [Moles/Vol] 107 mmol/L 98 - 10 7 mmol/L [facility] CO2 [Moles/Vol] 23 mmol/L 23 - 31 mmol/L [facility] Creatinine [Mass/Vol] 1.06 mg/dL 0.57 - 1.11 mg/dL [facility] GFR/1.73 sq M.predicted (S/P/Bld) [Vol rate/Area] 59.9 mL/min Low - PINF [facility] Glucose [Mass/Vol] 90 mg/dL 82 - 115 mg/dL [facility] Interpretation and review of laboratory results Abnormal [facility] Potassium [Moles/Vol] 4.2 mmol/L 3.5 - 5.1 mmol/L [facility] Protein [Mass/Vol] 6 g/dL Low 6.4 - 8.3 g/dL [facility] Sodium [Moles/Vol] 137 mmol/L 136 - 145 mmol/L [facility] Urea nitrogen [Mass/Vol] 32 mg/dL High 9 - 23 mg/dL [facility] Consulton 06-18-2025 Consult Normal [facility] ECG 12-LEADon 06-18-2025 ECG 12-LEAD IMPRESSION: Atrial fibrillation LVH with secondary repolarization abnormality Electronically Signed On 06-18-2025 17:38:55 EDT by Ned Ponce Normal [facility] ED Nursing Noteon 06-18-2025 ED Nursing Note USACS Laskey Normal [facility] MRSA BY PCRon 06-18-2025 MRSA BY PCR Normal [facility] Comment on above: Performed By: #### L [id number] ####Documentation Writer: NADIA FRENCH ([id number])[facility] ([address] MRSA DNA HESHAM+probe Ql (Nose) on 06-18-2025 Interpretation and review of laboratory results Normal [facility] mecA gene Not detected Not Detected [facility] Staphylococcus aureus Not detected Not Detected [facility] No Panel InformationOrdered By: Ned Ponce on 06-18-2025 P [place] 0 degrees [facility] Work Phone: VA Interval 0 ms [facility] Work Phone: QRS [place] -15 degrees [facility] Work Phone: QRSD Interval 76 ms [employer] Work Phone: QT Interval 321 ms [employer] Work Phone: QTC Interval 463 ms [employer] Work Phone: T Wave [place] 162 degrees [facility] Work Phone: [facility] Work Phone: No Panel Informationon 06-18 CV EPIPHANY [facility] PNEUMONIA PCR PANELon 2024 PNEUMONIA PCR PANEL Normal [facility] Comment on above: Performed By: #### L [id number] ####Documentation Writer: NADIA FRENCH ([id number])[facility] ([facility])[address] [place] [address] Progress Noteon 06-18-2025 Progress Note Normal [facility] Progress Note Normal [facility] Progress Note Normal [facility] Progress Note Normal [facility] Progress Note Normal [facility] RESPIRATORY CULTURE AND STAI Non 06-18-2025 RESPIRATORY CULTURE AND STAIN Normal [facility] Comment on above: Performed By: #### L [id number] ####Documentation Writer: NADIA FRENCH ([id number])[facility] ([facility])[address] [place] [address] RESPIRATORY PATHOGENS PANEL BY PCRon 06-18-2025 RESPIRATORY PATHOGENS PANEL BY PCR Normal [facility] Comment on above: Performed By: #### L [id number] ####Documentation Writer: NADIA FRENCH ([id number])[facility] ([facility])[address] [place] [address] Respiratory pathogens DNA an d RNA panel HESHAM+non-probe (Lower resp)on 06-18-2025 Acinetobacter baumannii complex Not detected Not Detected [facility] Adenovirus Not detected Not Detected [facility] C. pneumoniae DNA HESHAM+non-probe Ql (Lower resp) Not detected Not Detected [facility] Enterobacter cloacae complex Not detected Not Detected [facility] Escherichia coli Not detected Not Detected [facility] FLUAV RNA HESHAM+non-probe Ql (Lower resp) Not detected Not Detected [facility] FLUBV RNA HESHAM+non-probe Ql (Lower resp) Not detected Not Detected [facility] Haemophilus influenzae Not detected Not Detected [facility] Human Metapneumovirus Not detected Not Detected [facility] Human Rhinovirus/Enterovirus Not detected Not Detected [facility] Interpretation and review of laboratory results Normal [facility] Klebsiella (Enterobacter) aerogenes Not detected Not Detected [facility] Klebsiella oxytoca Not detected Not Detected [facility] Klebsiella pneumoniae Not detected Not Detected [facility] L. pneumophila DNA HESHAM+non-probe Ql (Lower resp) Not detected Not Detected [facility] Moraxella catarrhalis Not detected Not Detected [facility] Mycoplasma pneumoniae Not detected Not Detected [facility] Parainfluenza virus Not detected Not Detected [facility] Proteus spp Not detected Not Detected [facility] Pseudomonas aeruginosa Not detected Not Detected [facility] RSV RNA HESHAM+probe Ql (Resp) Not detected Not Detected [facility] S. agalactiae DNA HESHAM+non-probe Ql (Sput) Not detected Not Detected [facility] SARS-CoV-2 (COVID-19) RNA HESHAM+non-probe Ql (Nph) Not detected Not Detected [facility] Serratia marcescens Not detected Not Detected [facility] Staphylococcus aureus Not detected Not Detected [facility] Streptococcus pneumoniae Not detected Not Detected [facility] Streptococcus pyogenes Not detected Not Detected [facility] Respiratory pathogens DNA an d RNA panel HESHAM+non-probe (Nph)on 06-18-2025 Adenovirus Not detected Not Detected [facility] B. pertussis toxin promoter region HESHAM+non-probe Ql (Nph) Not detected Not Detected [facility] Bordetella parapertussis Not detected Not Detected [facility] C. pneumoniae DNA HESHAM+non-probe Ql (Lower resp) Not detected Not Detected [facility] Coronavirus 229E Not detected Not Detected [facility] Coronavirus HKU1 Not detected Not Detected [facility] Coronavirus NL63 Not detected Not Detected [facility] Coronavirus OC43 Not detected Not Detected [facility] FLUAV RNA HESHAM+non-probe Ql (Nph) Not detected Not Detected [facility] FLUBV RNA HESHAM+non-probe Ql (Nph) Not detected Not Detected [facility] Human Metapneumovirus Not detected Not Detected [facility] Human Rhinovirus/Enterovirus Not detected Not Detected [facility] Interpretation and review of laboratory results Normal [facility] Mycoplasma pneumoniae Not detected Not Detected [facility] Parainfluenza 1 Not detected Not Detected [facility] Parainfluenza 2 Not detected Not Detected [facility] Parainfluenza 3 Not detected Not Detected [facility] Parainfluenza 4 Not detected Not Detected [facility] Respiratory Syncytial Virus Not detected Not Detected [facility] SARS-CoV-2 (COVID-19) RNA HESHAM+non-probe Ql (Nph) Not detected Not Detected [facility] US Heart TransthoracicOrdere d By: Donna Giron on 06-18-2025 Ao Root Index 1.64 cm/m2 [facility] Work Phone: Aortic Root 3.2 cm [facility] Work Phone: Aortic Sinus Valsalva 3.2 cm [facility] Work Phone: Aortic Sinus Valsalva Index 1.64 cm/m2 [facility] Work Phone: [phone] Aortic valve Mean systole pressure gradient by US.doppler derived full Bernoulli 3 mmHg [facility] Work Phone: [phone] Aortic valve Orifice area by US 2.8 cm2 [facility] Work Phone: [phone] Aortic valve Peak systolic flow by US.doppler 0.8 m/s [facility] Work Phone: [phone] Ascending Aorta 3.6 cm [facility] Work Phone: [phone] Ascending Aorta Index 1.85 cm/m2 [facility] Work Phone: [phone] AV Area by Peak Velocity 2 cm2 [facility] Work Phone: [phone] AV Area by VTI 2.4 cm2 [facility] Work Phone: [phone] AV Peak Gradient 6 mmHg [facility] Work Phone: [phone] AV Peak Velocity 1.2 m/s [facility] Work Phone: [phone] AV Velocity Ratio 0.67 [facility] Work Phone: [phone] AV VTI 19.5 cm [facility] Work Phone: [phone] IFEANYI/BSA Peak Velocity 1 cm2/m2 [facility] Work Phone: [phone] IFEANYI/BSA VTI 1.2 cm2/m2 [facility] Work Phone: Est. RA Pressure 3 mmHg [facility] Work Phone: [phone] Fractional Shortening 2D 51 % 28 - 44 % [facility] Work Phone: Interpretation and review of laboratory results Abnormal [facility] Work Phone: IVC Diameter 2.1 cm [facility] Work Phone: [phone] IVSd 1 cm Abnormal 0.6 - 0.9 cm [facility] Work Phone: LA Diameter 4.3 cm [facility] Work Phone: LA Size Index 2.21 cm/m2 [facility] Work Phone: [phone] LA Volume 4C 80 mL Abnormal 22 - 52 mL [facility] Work Phone: LA Volume Index 4C 41 mL/m2 Abnormal 16 - 34 mL/m2 [facility] Work Phone: LA/AO Root Ratio 1.34 [facility] Work Phone: LV E' Lateral Velocity 9 cm/s [facility] Work Phone: LV E' Septal Velocity 5 cm/s [facility] Work Phone: LV EDV A2C 41 mL [facility] Work Phone: LV EDV A4C 131 mL [facility] Work Phone: LV EDV BP 71 mL 56 - 104 mL [facility] Work Phone: LV EDV Index A2C 21 mL/m2 [facility] Work Phone: LV EDV Index A4C 67 mL/m2 [facility] Work Phone: [phone] LV EDV Index BP 36 mL/m2 [facility] Work Phone: LV ESV A2C 42 mL [facility] Work Phone: [phone] LV ESV A4C 28 mL [facility] Work Phone: LV ESV BP 34 mL 19 - 49 mL [facility] Work Phone: LV ESV Index A2C 22 mL/m2 [facility] Work Phone: LV ESV Index A4C 14 mL/m2 [facility] Work Phone: [phone] LV ESV Index BP 17 mL/m2 [facility] Work Phone: [phone] LV Mass 2D 162.1 g Abnormal 67 - 162 g [facility] Work Phone: LV Mass 2D Index 83.1 g/m2 43 - 95 g/m2 [facility] Work Phone: LV RWT Ratio 0.26 [facility] Work Phone: [phone] LVIDd 5.3 cm 3.9 - 5.3 cm [facility] Work Phone: [phone] LVIDd Index 2.72 cm/m2 [facility] Work Phone: [phone] LVIDs 2.6 cm [facility] Work Phone: [phone] LVIDs Index 1.33 cm/m2 [facility] Work Phone: [phone] LVOT Cardiac Output 4.1 liter/mi nu te [facility] Work Phone: [phone] LVOT Diameter 1.9 cm [facility] Work Phone: [phone] LVOT Mean Gradient 1 mmHg [facility] Work Phone: [phone] LVOT Peak Gradient 3 mmHg [facility] Work Phone: [phone] LVOT Peak Velocity 0.8 m/s [facility] Work Phone: [phone] LVOT Stroke Volume Index 23 mL/m2 [facility] Work Phone: [phone] LVOT SV 44.8 ml [facility] Work Phone: [phone] LVOT VTI 15.8 cm [facility] Work Phone: [phone] LVOT:AV VTI Index 0.81 [facility] Work Phone: [phone] LVPWd 0.7 cm 0.6 - 0.9 cm [facility] Work Phone: [phone] RA Area 4C 66.2 mL [facility] Work Phone: [phone] RA Area 4C 63.4 mL [facility] Work Phone: [phone] RV Basal Dimension 3 cm [facility] Work Phone: [phone] RV Free Wall Peak S' 15 cm/s [facility] Work Phone: [phone] RV Longitudinal Dimension 4.9 cm [facility] Work Phone: [phone] RV Mid Dimension 1.9 cm [facility] Work Phone: [phone] RVSP 49 mmHg [facility] Work Phone: [phone] Sinotubular Junction 2.9 cm [facility] Work Phone: [phone] TR Max Velocity 3.38 m/s [facility] Work Phone: [phone] TR Peak Gradient 46 mmHg [facility] Work Phone: [facility] Work Phone: US Heart Transthoracicon CV CPACS Vital signsOrdered By: Ned Ponce on 06-18-2025 Heart rate 125 /min bpm [facility] Phone: [phone] 06-17-2025 [id number] Normal [facility] BLOOD CULTUREon 06-17-2025 Bacteria identified Cx Nom (Bld) Normal [facility] Comment on above: Performed By: #### L [id number] ####Documentation Writer: NADIA FRENCH ([id number])[facility] ([facility])[address] [place] [address] BLOOD GAS ARTERIALon 025 AMOUNT OF OXYGEN 60% Normal [facility] Comment on above: Performed By: #### L [id number] ####Documentation Writer: NADIA FRENCH ([id number])[facility])[address] [place] [address] Base excess Calc (Bld) [Moles/Vol] 1.8 mmol/L Normal -3.0-3.0 [facility] Comment on above: Performed By: #### L [id number] ####Documentation Writer: NADIA FRENCH ([id number])[facility])[address] [place] [address] CO2 [Moles/Vol] 25.7 mmol/L Normal 23.0-27.0 [facility] Comment on above: Performed By: #### L [id number] ####Documentation Writer: NADIA FRENCH ([id number])[facility] ([facility])[address] [place] [address] [place] HCO3 (Bld) [Moles/Vol] 24.7 mmol/L Normal 21.0-25.0 [facility] Comment on above: Performed By: #### L [id number] ####Documentation Writer: NADIA FRENCH ([id number])[facility])[address] [place] [address] Hemoglobin (Bld) [Mass/Vol] 8.3 g/dL Normal Screen only [facility] Comment on above: Performed By: #### L [id number] ####Documentation Writer: NADIA FRENCH ([id number])[facility])[address] [place] [address] OXYGEN SATURATION (%) IN ARTERIAL BLOOD 94.7 % Low 95.0-100.0 [facility] Comment on above: Performed By: #### L [id number] ####Documentation Writer: NADIA FRENCH ([id number])[facility])[address] [place] [address] PCO2 ARTERIAL 31.5 mm Hg Low >35.0-<45. 0 [facility] Comment on above: Performed By: #### L [id number] ####Documentation Writer: NADIA FRENCH ([id number])[facility])[address] [place] [address] PH ARTERIAL 7.512 High 7.350-7.45 0 [facility] Comment on above: Performed By: #### L [id number] ####Documentation Writer: NADIA FRENCH ([id number])[facility] ([facility])[address] [place] [address] PO2 ARTERIAL 73.7 mm Hg Low 80.0-100.0 [facility] Comment on above: Performed By: #### L [id number] ####Documentation Writer: NADIA FRENCH ([id number])[facility])[address] [place] [address] SOURCE OF OXYGEN Non-Invasive Ventilator Normal [facility] Comment on above: Performed By: #### L [id number] ####Documentation Writer: NADIA FRENCH ([id number])[facility] ([facility])[address] [place] [address] [place] C-REACTIVE PROTEINon 025 CRP [Mass/Vol] 113.6 mg/L High <5.0 [facility] Comment on above: Performed By: #### L [id number], [id number], [id number] ####Documentation Writer: NADIA FRENCH ([id number])[facility])[address] [place] [address] [place] CBC W Auto Differential pane l (Bld)Ordered By: Marycarmen Guerrero on 06-17-2025 Basophils (Bld) [#/Vol] 0 10*3/uL 0.0 - 0.2 10*3/uL [facility] Basophils/100 WBC (Bld) 0.3 % 0.0 - 2.0 % [facility] Eosinophils (Bld) [#/Vol] 0.1 10*3/uL 0.0 - 0.5 10*3/uL [facility] Eosinophils/100 WBC (Bld) 0.4 % 0.0 - 6.0 % [facility] Erythrocyte distribution width (RBC) [Ratio] 25.6 % High 11.5 - 15.0 % [facility] Hematocrit (Bld) [Volume fraction] 26.5 % Low 35.0 - 47.0 % [facility] Hemoglobin (Bld) [Mass/Vol] 7.7 g/dL Low 11.7 - 16.0 g/dL [facility] Immature granulocytes (Bld) [#/Vol] 0.1 10*3/uL High NINF - 0.1 10*3/uL [facility] Immature granulocytes/100 WBC (Bld) 0.6 % 0.0 - 2.0 % [facility] Interpretation and review of laboratory results Abnormal [facility] Lymphocytes (Bld) [#/Vol] 1.3 10*3/uL 1.0 - 4.3 10*3/uL [facility] Lymphocytes/100 WBC (Bld) 8.9 % Low 15.0 - 45.0 % [facility] MCH (RBC) [Entitic mass] 23 pg Low 26.0 - 34.0 pg [facility] MCHC (RBC) [Mass/Vol] 29.1 % Low 30.5 - 36.0 % [facility] MCV (RBC) [Entitic vol] 79.1 fL 77.0 - 99.0 fL [facility] Monocytes (Bld) [#/Vol] 0.9 10*3/uL 0.0 - 0.9 10*3/uL [facility] Monocytes/100 WBC (Bld) 6.2 % 5.0 - 13.0 % [facility] Neutrophils (Bld) [#/Vol] 11.9 10*3/uL High 1.8 - 7.5 10*3/uL [facility] Neutrophils/100 WBC (Bld) 83.6 % High 38.0 - 82.0 % [facility] Nucleated RBC/100 WBC (Bld) [Ratio] 0 % [facility] Platelet mean volume (Bld) [Entitic vol] 9.3 fL 9.0 - 12.7 fL [facility] Platelets (Bld) [#/Vol] 408 10*3/uL 140 - 440 10*3/uL [facility] RBC (Bld) [#/Vol] 3.35 10*6/uL Low 3.80 - 5.20 10*6/uL [facility] WBC (Bld) [#/Vol] 14.2 10*3/uL High 3.6 - 10.7 10*3/uL [facility] CBC W Auto Differential pane l (Bld)on 06-17-2025 Basophils (Bld) [#/Vol] 0.1 10*3/uL 0.0 - 0.2 10*3/uL [facility] Basophils/100 WBC (Bld) 0.5 % 0.0 - 2.0 % [facility] Eosinophils (Bld) [#/Vol] 0.2 10*3/uL 0.0 - 0.5 10*3/uL [facility] Eosinophils/100 WBC (Bld) 1.2 % 0.0 - 6.0 % [facility] Erythrocyte distribution width (RBC) [Ratio] 25.6 % High 11.5 - 15.0 % [facility] Hematocrit (Bld) [Volume fraction] 29 % Low 35.0 - 47.0 % [facility] Hemoglobin (Bld) [Mass/Vol] 8.4 g/dL Low 11.7 - 16.0 g/dL [facility] Immature granulocytes (Bld) [#/Vol] 0.1 10*3/uL High NINF - 0.1 10*3/uL [facility] Immature granulocytes/100 WBC (Bld) 0.5 % 0.0 - 2.0 % [facility] Interpretation and review of laboratory results Abnormal [facility] Lymphocytes (Bld) [#/Vol] 1.4 10*3/uL 1.0 - 4.3 10*3/uL [facility] Lymphocytes/100 WBC (Bld) 10.5 % Low 15.0 - 45.0 % [facility] MCH (RBC) [Entitic mass] 23.3 pg Low 26.0 - 34.0 pg [facility] MCHC (RBC) [Mass/Vol] 29 % Low 30.5 - 36.0 % [facility] MCV (RBC) [Entitic vol] 80.6 fL 77.0 - 99.0 fL [facility] Monocytes (Bld) [#/Vol] 0.9 10*3/uL 0.0 - 0.9 10*3/uL [facility] Monocytes/100 WBC (Bld) 6.4 % 5.0 - 13.0 % [facility] Neutrophils (Bld) [#/Vol] 10.7 10*3/uL High 1.8 - 7.5 10*3/uL [facility] Neutrophils/100 WBC (Bld) 80.9 % 38.0 - 82.0 % [facility] Nucleated RBC/100 WBC (Bld) [Ratio] 0 % [facility] Platelet mean volume (Bld) [Entitic vol] 9.8 fL 9.0 - 12.7 fL [facility] Platelets (Bld) [#/Vol] 524 10*3/uL High 140 - 440 10*3/uL [facility] RBC (Bld) [#/Vol] 3.6 10*6/uL Low 3.80 - 5.20 10*6/uL [facility] WBC (Bld) [#/Vol] 13.3 10*3/uL High 3.6 - 10.7 10*3/uL [facility] CBC WITH AUTO DIFFERENTIALon 06-17-2025 Basophils (Bld) [#/Vol] 0.0 10*3/uL Normal 0.0-0.2 [facility] Comment on above: Performed By: #### L [id number] ####Documentation Writer: NADIA FRENCH ([id number])[facility] ([facility])[address] [place] [address] Basophils/100 WBC (Bld) 0.3 % Normal 0.0-2.0 [facility] Comment on above: Performed By: #### L [id number] ####Documentation Writer: NADIA FRENCH ([id number])[facility] [address] Eosinophils (Bld) [#/Vol] 0.1 10*3/uL Normal 0.0-0.5 [facility] Comment on above: Performed By: #### L [id number] ####Documentation Writer: NADIA FRENCH ([id number])[facility])[address] [place] [address] Eosinophils/100 WBC (Bld) 0.4 % Normal 0.0-6.0 [facility] Comment on above: Performed By: #### L [id number] ####Documentation Writer: NADIA FRENCH ([id number])[address] Erythrocyte distribution width (RBC) [Ratio] 25.6 % High 11.5-15.0 [facility] Comment on above: Performed By: #### L [id number] ####Documentation Writer: NADIA FRENCH ([id number])[address] Hematocrit (Bld) [Volume fraction] 26.5 % Low 35.0-47.0 [facility] Comment on above: Performed By: #### L [id number] ####Documentation Writer: NADIA FRENCH ([id number])[address] Hemoglobin (Bld) [Mass/Vol] 7.7 g/dL Low 11.7-16.0 [facility] Comment on above: Performed By: #### L [id number] ####Documentation Writer: NADIA FRENCH ([id number])[address] IMMATURE GRANS % 0.6 % Normal 0.0-2.0 [facility] Comment on above: Performed By: #### L [id number] ####Documentation Writer: NADIA FRENCH ([id number])[address] IMMATURE GRANS ABSOLUTE 0.1 10*3/uL High <0.1 [facility] Comment on above: Performed By: #### L [id number] ####Documentation Writer: NADIA FRENCH ([id number])[facility])[address] [place] [address] Lymphocytes (Bld) [#/Vol] 1.3 10*3/uL Normal 1.0-4.3 [facility] Comment on above: Performed By: #### L [id number] ####Documentation Writer: NADIA FRENCH ([id number])[facility])[address] [place] [address] Lymphocytes/100 WBC (Bld) 8.9 % Low 15.0-45.0 [facility] Comment on above: Performed By: #### L [id number] ####Documentation Writer: NADIA FRENCH ([id number])[facility])[address] [place] [address] MCH (RBC) [Entitic mass] 23.0 pg Low 26.0-34.0 [facility] Comment on above: Performed By: #### L [id number] ####Documentation Writer: NADIA FRENCH ([id number])[facility])[address] [place] [address] MCHC 29.1 % Low 30.5-36.0 [facility] Comment on above: Performed By: #### L [id number] ####Documentation Writer: NADIA FRENCH ([id number])[facility])[address] [place] [address] MCV (RBC) [Entitic vol] 79.1 fL Normal 77.0-99.0 [facility] Comment on above: Performed By: #### L [id number] ####Documentation Writer: NADIA FRENCH ([id number])[facility])[address] [place] [address] Monocytes (Bld) [#/Vol] 0.9 10*3/uL Normal 0.0-0.9 [facility] Comment on above: Performed By: #### L [id number] ####Documentation Writer: NADIA FRENCH ([id number])[facility] ([facility])[address] [place] [address] [place] Monocytes/100 WBC (Bld) 6.2 % Normal 5.0-13.0 [facility] Comment on above: Performed By: #### L [id number] ####Documentation Writer: NADIA FRENCH ([id number])[facility] ([facility])[address] [place] [address] NEUTROPHILS ABSOLUTE 11.9 10*3/uL High 1.8-7.5 [facility] Comment on above: Performed By: #### L [id number] ####Documentation Writer: NADIA FRENCH ([id number])[facility] ([facility])[address] [place] [address] Neutrophils/100 WBC (Bld) 83.6 % High 38.0-82.0 [facility] Comment on above: Performed By: #### L [id number] ####Documentation Writer: NADIA FRENCH ([id number])[facility] ([facility])[address] [place] [address] NRBC 0.0 /100 WBCs Normal 0.0-2.0 [facility] Comment on above: Performed By: #### L [id number] ####Documentation Writer: NADIA FRENCH ([id number])[facility] ([facility])[address] [place] [address] Platelet mean volume (Bld) [Entitic vol] 9.3 fL Normal 9.0-12.7 [facility] Comment on above: Performed By: #### L [id number] ####Documentation Writer: NADIA FRENCH ([id number])[facility] ([facility])[address] [place] [address] [place] Platelets (Bld) [#/Vol] 408 10*3/uL Normal 140-440 [facility] Comment on above: Performed By: #### L [id number] ####Documentation Writer: NADIA FRENCH ([id number])[facility] ([facility])[address] [place] [address] RBC (Bld) [#/Vol] 3.35 10*6/uL Low 3.80-5.20 [facility] Comment on above: Performed By: #### L [id number] ####Documentation Writer: NADIA FRENCH ([id number])[facility])[address] [place] [address] WBC (Bld) [#/Vol] 14.2 10*3/uL High 3.6-10.7 [facility] Comment on above: Performed By: #### L [id number] ####Documentation Writer: NADIA FRENCH ([id number])[facility])[address] [place] [address] Basophils (Bld) [#/Vol] 0.1 10*3/uL Normal 0.0-0.2 [facility] Comment on above: Performed By: #### L [id number] ####Documentation Writer: NADIA FRENCH ([id number])[facility] ([facility])[address] [place] [address] Basophils/100 WBC (Bld) 0.5 % Normal 0.0-2.0 [facility] Comment on above: Performed By: #### L [id number] ####Documentation Writer: NADIA FRENCH ([id number])[facility])[address] [place] [address] Eosinophils (Bld) [#/Vol] 0.2 10*3/uL Normal 0.0-0.5 [facility] Comment on above: Performed By: #### L [id number] ####Documentation Writer: NADIA FRENCH ([id number])[facility])[address] [place] [address] Eosinophils/100 WBC (Bld) 1.2 % Normal 0.0-6.0 [facility] Comment on above: Performed By: #### L [id number] ####Documentation Writer: NADIA FRENCH ([id number])[facility])[address] [place] [address] Erythrocyte distribution width (RBC) [Ratio] 25.6 % High 11.5-15.0 [facility] Comment on above: Performed By: #### L [id number] ####Documentation Writer: NADIA FRENCH ([id number])[facility])[address] [place] [address] Hematocrit (Bld) [Volume fraction] 29.0 % Low 35.0-47.0 [facility] Comment on above: Performed By: #### L [id number] ####Documentation Writer: NADIA FRENCH ([id number])[facility])[address] [place] [address] Hemoglobin (Bld) [Mass/Vol] 8.4 g/dL Low 11.7-16.0 [facility] Comment on above: Performed By: #### L [id number] ####Documentation Writer: NADIA FRENCH ([id number])[facility])[address] [place] [address] IMMATURE GRANS % 0.5 % Normal 0.0-2.0 [facility] Comment on above: Performed By: #### L [id number] ####Documentation Writer: NADIA FRENCH ([id number])[facility])[address] [place] [address] IMMATURE GRANS ABSOLUTE 0.1 10*3/uL High <0.1 [facility] Comment on above: Performed By: #### L [id number] ####Documentation Writer: NADIA FRENCH ([id number])[facility])[address] [place] [address] Lymphocytes (Bld) [#/Vol] 1.4 10*3/uL Normal 1.0-4.3 [facility] Comment on above: Performed By: #### L [id number] ####Documentation Writer: NADIA FRENCH ([id number])[facility])[address] [place] [address] Lymphocytes/100 WBC (Bld) 10.5 % Low 15.0-45.0 [facility] Comment on above: Performed By: #### L [id number] ####Documentation Writer: NADIA FRENCH ([id number])[facility])[address] [place] [address] MCH (RBC) [Entitic mass] 23.3 pg Low 26.0-34.0 [facility] Comment on above: Performed By: #### L [id number] ####Documentation Writer: NADIA FRENCH ([id number])[facility])[address] [place] [address] MCHC 29.0 % Low 30.5-36.0 [facility] Comment on above: Performed By: #### L [id number] ####Documentation Writer: NADIA FRENCH ([id number])[address] MCV (RBC) [Entitic vol] 80.6 fL Normal 77.0-99.0 [facility] Comment on above: Performed By: #### L [id number] ####Documentation Writer: NADIA FRENCH ([id number])[facility])[address] [place] [address] Monocytes (Bld) [#/Vol] 0.9 10*3/uL Normal 0.0-0.9 [facility] Comment on above: Performed By: #### L [id number] ####Documentation Writer: NADIA FRENCH ([id number])[facility])[address] [place] [address] Monocytes/100 WBC (Bld) 6.4 % Normal 5.0-13.0 [facility] Comment on above: Performed By: #### L [id number] ####Documentation Writer: NADIA FRENCH ([id number])[address] NEUTROPHILS ABSOLUTE 10.7 10*3/uL High 1.8-7.5 [facility] Comment on above: Performed By: #### L [id number] ####Documentation Writer: NADIA [id number])[facility])[address] [place] [address] Neutrophils/100 WBC (Bld) 80.9 % Normal 38.0-82.0 [facility] Comment on above: Performed By: #### L [id number] ####Documentation Writer: NADIA FRENCH ([id number])[facility] ([facility])[address] [place] [address] NRBC 0.0 /100 WBCs Normal 0.0-2.0 [facility] Comment on above: Performed By: #### L [id number] ####Documentation Writer: NADIA FRENCH ([id number])[facility] ([facility])[address] [place] [address] Platelet mean volume (Bld) [Entitic vol] 9.8 fL Normal 9.0-12.7 [facility] Comment on above: Performed By: #### L [id number] ####Documentation Writer: NADIA FRENCH ([id number])[facility] ([facility])[address] [place] [address] Platelets (Bld) [#/Vol] 524 10*3/uL High 140-440 [facility] Comment on above: Performed By: #### L [id number] ####Documentation Writer: NADIA FRENCH ([id number])[facility] ([facility])[address] [place] [address] RBC (Bld) [#/Vol] 3.60 10*6/uL Low 3.80-5.20 [facility] Comment on above: Performed By: #### L [id number] ####Documentation Writer: NADIA FRENCH ([id number])[facility] ([facility])[address] [place] [address] [place] WBC (Bld) [#/Vol] 13.3 10*3/uL High 3.6-10.7 [facility] Comment on above: Performed By: #### L [id number] ####Documentation Writer: NADIA FRENCH ([id number])[facility] ([facility])[address] [place] [address] COMPREHENSIVE METABOLIC PANE David 06-17-2025 Albumin [Mass/Vol] 1.9 g/dL Low 3.4-4.8 [facility] Comment on above: Performed By: #### L [id number], [id number], [id number] ####Documentation Writer: NADIA FRENCH ([id number])[facility] ([facility])[address] [place] [address] ALP [Catalytic activity/Vol] 82 U/L Normal 40-150 [facility] Comment on above: Performed By: #### L [id number], [id number], [id number] ####Documentation Writer: NADIA FRENCH ([id number])[facility] ([facility])[address] [place] [address] ALT [Catalytic activity/Vol] 9 U/L Normal <30 [facility] Comment on above: Performed By: #### Jama [id number], [id number], [id number] ####Documentation Writer: NADIA FRENCH ([id number])[facility] ([facility])[address] [place] [address] Anion gap [Moles/Vol] 7 mmol/L Normal 3-13 [facility] Comment on above: Performed By: #### L [id number], [id number], [id number] ####Documentation Writer: NADIA FRENCH ([id number])[facility] ([facility])[address] [place] [address] AST [Catalytic activity/Vol] 22 U/L Normal <34 [facility] Comment on above: Performed By: #### L [id number], [id number], [id number] ####Documentation Writer: NADIA FRENCH ([id number])[facility] ([facility])[address] [place] [address] Bilirubin [Mass/Vol] 0.6 mg/dL Normal <1.2 [facility] Comment on above: Performed By: #### L [id number], [id number], [id number] ####Documentation Writer: NADIA FRENCH ([id number])[facility])[address] [place] [address] Calcium [Mass/Vol] 7.8 mg/dL Low 8.8-10.0 [facility] Comment on above: Performed By: #### L [id number], [id number], [id number] ####Documentation Writer: NADIA FRENCH ([id number])[facility] ([facility])[address] [place] [address] Chloride [Moles/Vol] 104 mmol/L Normal 98-107 [facility] Comment on above: Performed By: #### L [id number], [id number], [id number] ####Documentation Writer: NADIA FRENCH ([id number])[facility])[address] [place] [address] CO2 [Moles/Vol] 23 mmol/L Normal 23-31 [facility] Comment on above: Performed By: #### Jama [id number], [id number], [id number] ####Documentation Writer: NADIA FRENCH ([id number])[facility] ([facility])[address] [place] [address] Creatinine [Mass/Vol] 1.06 mg/dL Normal 0.57-1.11 [facility] Comment on above: Performed By: #### L [id number], [id number], [id number] ####Documentation Writer: NADIA FRENCH ([id number])[facility])[address] [place] [address] [place] GLOMERULAR FILTRATION RATE ML/MIN/1.73 SQ M.PREDICTED 59.9 mL/min/1.73m*2 Low >60.0 [facility] Comment on above: Result Comment: Calc ulation based on the Chronic Kidney Disease Epidemiology Collaboration (CKD-EPI) equation refit without adjustment for race Performed By: #### L [id number], [id number], [id number] ####Documentation Writer: NADIA FRENCH ([id number])[facility])[address] [place] [address] [place] Glucose [Mass/Vol] 97 mg/dL Normal 82-115 [facility] Comment on above: Performed By: #### L [id number], [id number], [id number] ####Documentation Writer: NADIA FRENCH ([id number])[facility])[address] [place] [address] Potassium [Moles/Vol] 4.7 mmol/L Normal 3.5-5.1 [facility] Comment on above: Performed By: #### L [id number], [id number], [id number] ####Documentation Writer: NADIA FRENCH ([id number])[facility])[address] [place] [address] Protein [Mass/Vol] 6.4 g/dL Normal 6.4-8.3 [facility] Comment on above: Performed By: #### L [id number], [id number], [id number] ####Documentation Writer: NADIA FRENCH ([id number])[facility])[address] [place] [address] Sodium [Moles/Vol] 134 mmol/L Low 136-145 [facility] Comment on above: Performed By: #### L [id number], [id number], LAB17 ####Documentation Writer: NADIA FRENCH ([id number])[facility])[address] [place] [address] Urea nitrogen [Mass/Vol] 34 mg/dL High 9-23 [facility] Comment on above: Performed By: #### L [id number], [id number], LAB17 ####Documentation Writer: NADIA FRENCH ([id number])[facility])[address] [place] [address] Albumin [Mass/Vol] 2.1 g/dL Low 3.4-4.8 [facility] Comment on above: Performed By: #### L [id number] ####Documentation Writer: NADIA FRENCH ([id number])[facility])[address] [place] [address] ALP [Catalytic activity/Vol] 92 U/L Normal 40-150 [facility] [place] Comment on above: Performed By: #### L [id number] ####Documentation Writer: NADIA FRENCH ([id number])[facility] [place] [address] ALT [Catalytic activity/Vol] 12 U/L Normal <30 [facility] Comment on above: Performed By: #### L [id number] ####Documentation Writer: NADIA FRENCH ([id number])[facility] ([facility])[address] [place] [address] Anion gap [Moles/Vol] 8 mmol/L Normal 3-13 [facility] Comment on above: Performed By: #### L [id number] ####Documentation Writer: NADIA FRENCH ([id number])[facility] ([facility])[address] [place] [address] AST [Catalytic activity/Vol] 29 U/L Normal <34 [facility] [place] Comment on above: Performed By: #### L [id number] ####Documentation Writer: NADIA FRENCH ([id number])[facility] ([facility])[address] [place] [address] Bilirubin [Mass/Vol] 0.6 mg/dL Normal <1.2 [facility] Comment on above: Performed By: #### L [id number] ####Documentation Writer: NADIA FRENCH ([id number])[facility] ([facility])[address] [place] [address] Calcium [Mass/Vol] 8.2 mg/dL Low 8.8-10.0 [facility] Comment on above: Performed By: #### L [id number] ####Documentation Writer: NADIA FRENCH ([id number])[facility] ([facility])[address] [place] [address] [place] Chloride [Moles/Vol] 102 mmol/L Normal 98-107 [facility] Comment on above: Performed By: #### L [id number] ####Documentation Writer: NADIA FRENCH ([id number])[facility] ([facility])[address] [place] [address] CO2 [Moles/Vol] 23 mmol/L Normal 23-31 [facility] [place] Comment on above: Performed By: #### L [id number] ####Documentation Writer: NADIA FRENCH ([id number])[facility])[address] [place] [address] Creatinine [Mass/Vol] 1.13 mg/dL High 0.57-1.11 [facility] Comment on above: Performed By: #### L [id number] ####Documentation Writer: NADIA FRENCH ([id number])[facility])[address] [place] [address] GLOMERULAR FILTRATION RATE ML/MIN/1.73 SQ M.PREDICTED 55.5 mL/min/1.73m*2 Low >60.0 [facility] Comment on above: Result Comment: Calc ulation based on the Chronic Kidney Disease Epidemiology Collaboration (CKD-EPI) equation refit without adjustment for race Performed By: #### L [id number] ####Documentation Writer: NADIA FRENCH ([id number])[facility])[address] [place] [address] Glucose [Mass/Vol] 88 mg/dL Normal 82-115 [facility] Comment on above: Performed By: #### L [id number] ####Documentation Writer: NADIA FRENCH ([id number])[facility])[address] [place] [address] Potassium [Moles/Vol] 4.2 mmol/L Normal 3.5-5.1 [facility] Comment on above: Performed By: #### L [id number] ####Documentation Writer: NADIA FRENCH ([id number])[facility])[address] [place] [address] Protein [Mass/Vol] 6.8 g/dL Normal 6.4-8.3 [facility] Comment on above: Performed By: #### L [id number] ####Documentation Writer: NADIA FRENCH ([id number])[facility])[address] [place] [address] Sodium [Moles/Vol] 133 mmol/L Low 136-145 [facility] Comment on above: Performed By: #### L [id number] ####Documentation Writer: NADIA FRENCH ([id number])[facility] ([facility])[address] [place] [address] Urea nitrogen [Mass/Vol] 32 mg/dL High - [facility] [place] [facility] Comment on above: Performed By: #### L [id number] ####Documentation Writer: NADIA FRENCH ([id number])[facility] ([facility])[address] [place] [address] CRP [Mass/Vol]on 06-17-2025 Interpretation and review of laboratory results Abnormal [facility] CT CHEST ANGIOGRAM W AND/OR WO IV CONTRASTon 06-17-2025 CT CHEST ANGIOGRAM W AND/OR WO IV CONTRAST Normal [facility] CTA Chest vessels WO and W c ontrast [place] 06-17-2025 [facility] Radiology Study observation (narrative) [facility] CTA Chest vessels WO and W c ontrast IVOrdered By: Juvenal Rosas on 06-17-2025 [facility] Work Phone: Comprehensive metabolic 1998 panelon 06-17-2025 Albumin [Mass/Vol] 1.9 g/dL Low 3.4 - 4.8 g/dL [facility] ALP [Catalytic activity/Vol] 82 U/L 40 - 150 U/L [facility] ALT [Catalytic activity/Vol] 9 U/L NINF - 30 U/L [facility] Anion gap [Moles/Vol] 7 mmol/L 3 - 13 mmol/L [facility] AST [Catalytic activity/Vol] 22 U/L NINF - 34 U/L [facility] Bilirubin [Mass/Vol] 0.6 mg/dL NINF - 1.2 mg/dL [facility] Calcium [Mass/Vol] 7.8 mg/dL Low 8.8 - 10. 0 mg/dL [facility] Chloride [Moles/Vol] 104 mmol/L 98 - 10 7 mmol/L [facility] CO2 [Moles/Vol] 23 mmol/L 23 - 31 mmol/L [facility] Creatinine [Mass/Vol] 1.06 mg/dL 0.57 - 1.11 mg/dL [facility] GFR/1.73 sq M.predicted (S/P/Bld) [Vol rate/Area] 59.9 mL/min Low - PINF [facility] Glucose [Mass/Vol] 97 mg/dL 82 - 115 mg/dL [facility] Interpretation and review of laboratory results Abnormal [facility] Potassium [Moles/Vol] 4.7 mmol/L 3.5 - 5.1 mmol/L [facility] Protein [Mass/Vol] 6.4 g/dL 6.4 - 8.3 g/dL [facility] Sodium [Moles/Vol] 134 mmol/L Low 136 - 145 mmol/L [facility] Urea nitrogen [Mass/Vol] 34 mg/dL High 9 - 23 mg/dL [facility] Albumin [Mass/Vol] 2.1 g/dL Low 3.4 - 4.8 g/dL [facility] ALP [Catalytic activity/Vol] 92 U/L 40 - 150 U/L [facility] ALT [Catalytic activity/Vol] 12 U/L NINF - 30 U/L [facility] Anion gap [Moles/Vol] 8 mmol/L 3 - 13 mmol/L [facility] AST [Catalytic activity/Vol] 29 U/L NINF - 34 U/L [facility] Bilirubin [Mass/Vol] 0.6 mg/dL NINF - 1.2 mg/dL [facility] Calcium [Mass/Vol] 8.2 mg/dL Low 8.8 - 10. 0 mg/dL [facility] Chloride [Moles/Vol] 102 mmol/L 98 - 10 7 mmol/L [facility] CO2 [Moles/Vol] 23 mmol/L 23 - 31 mmol/L [facility] Creatinine [Mass/Vol] 1.13 mg/dL High 0.57 - 1.11 mg/dL [facility] GFR/1.73 sq M.predicted (S/P/Bld) [Vol rate/Area] 55.5 mL/min Low - PINF [facility] Glucose [Mass/Vol] 88 mg/dL 82 - 115 mg/dL [facility] Interpretation and review of laboratory results Abnormal [facility] Potassium [Moles/Vol] 4.2 mmol/L 3.5 - 5.1 mmol/L [facility] Protein [Mass/Vol] 6.8 g/dL 6.4 - 8.3 g/dL [facility] Sodium [Moles/Vol] 133 mmol/L Low 136 - 145 mmol/L [facility] Urea nitrogen [Mass/Vol] 32 mg/dL High 9 - 23 mg/dL [facility] Health Consulton 06-17-2025 Consult Normal [facility] Consult Normal [facility] HIGH SENSITIVITY TROPONIN, S ERIAL BASELINEon 06-17-2025 TROPONIN HS SERIAL BASELINE 16 ng/L High <=14 [facility] Comment on above: Result Comment: In i ndividuals presenting with symptoms > 2h, a baseline troponin <= 5 ng/L suggests acutecardiac injury is unlikely and further serial testing is generally not indicated. Performed By: #### L [id number], [id number], [id number] ####Documentation Writer: NADIA FRENCH ([id number])[facility])[address] [place] [address] HIGH SENSITIVITY TROPONIN, S ERIAL, SECOND TESTon 06-17-2025 2H TROPONIN HS (SERIAL 2ND TROPONIN) 16 ng/L High <=14 [facility] Comment on above: Result Comment: Risi ng or falling troponin delta below 2 ng/L as compared to baseline value suggests thatacute cardiac injury is unlikely. Performed By: #### L [id number], [id number], [id number] ####Documentation Writer: NADIA FRENCH ([id number])[facility])[address] [place] [address] LACTIC ACID WITH REFLEXon Lactate [Moles/Vol] 0.7 mmol/L Normal 0.5-2.2 [facility] Comment on above: Performed By: #### L [id number] ####Documentation Writer: NADIA FRENCH ([id number])[facility] ([facility])[address] [place] [address] Laboratory - Chemistry and C hemistry - challengeon 06-17-2025 CRP [Mass/Vol] 113.6 mg/L High NINF - 5.0 mg/L [facility] Procalcitonin [Mass/Vol] 0.25 ng/mL High NINF - 0.07 ng/mL [facility] Lactate [Moles/Vol] 0.7 mmol/L 0.5 - 2. 2 mmol/L [facility] Laboratory - Chemistry and C hemistry - challengeOrdered By: Nancy Petersen on 06-17-2025 Base excess Calc (Bld) [Moles/Vol] 1.8 mmol/L -3.0 - 3.0 mmol/L [facility] CO2 (Bld) [Partial pressure] 31.5 mm[Hg] Low - PINF [facility] CO2 [Moles/Vol] 25.7 mmol/L 23.0 - 27.0 mmol/L [facility] HCO3 (Bld) [Moles/Vol] 24.7 mmol/L 21.0 - 25.0 mmol/L [facility] Oxygen (Bld) [Partial pressure] 73.7 mm[Hg] Low [facility] pH (Bld) 7.512 [pH] High 7.350 - 7.450 [facility] Laboratory - Hematology and Cell countsOrdered By: Nancy Petersen on 06-17-2025 Hemoglobin (Bld) [Mass/Vol] 8.3 g/dL 7.0 g/dl [facility] NT PRO BNPon 06-17-2025 Natriuretic peptide B (Bld) [Mass/Vol] 97323 pg/mL High <125 [facility] Comment on above: Performed By: #### L [id number], [id number], [id number] ####Documentation Writer: NADIA FRENCH ([id number])[address] Natriuretic peptide B [Mass/ Vol]on 06-17-2025 Interpretation and review of laboratory results Abnormal [facility] Natriuretic peptide B (Bld) [Mass/Vol] 78992 pg/mL High NINF - 125 pg/mL [facility] No Panel Informationon 06-17 2h Troponin HS (Serial 2nd Troponin) 16 ng/L High NINF - 14 ng/L [facility] Interpretation and review of laboratory results Abnormal [facility] Interpretation and review of laboratory results Abnormal [facility] Troponin HS Serial Baseline 16 ng/L High NINF - 14 ng/L [facility] Interpretation and review of laboratory results Normal [facility] No Panel InformationOrdered By: Nancy Petersen on 06-17-2025 Amount Of Oxygen 60% [facility] Interpretation and review of laboratory results Abnormal [facility] Source Of Oxygen Non-Invasive Ventilator [facility] Nursing Noteon 06-17-2025 Nursing Note Patient off unit to radiology for CT scan. Normal [facility] PROCALCITONIN TESTon 025 PROCALCITONIN 0.25 ng/mL High <0.07 [facility] Comment on above: Result Comment: REGGIEE R COMMENTS:PCT <0.50 = Low risk of severe sepsis and/or septic shock.PCT >2.00 = High risk of severe sepsis and/or septic shock. Performed By: #### L [id number], [id number], LAB17 ####Documentation Writer: NADIA FRENCH ([id number])[address] Procalcitonin [Mass/Vol]on 0 06-17-2025 Interpretation and review of laboratory results Abnormal [facility] Progress Noteon 06-17-2025 Progress Note Normal [facility] Progress Note Normal [facility] Progress Note Normal [facility] Progress Note Normal [facility] CBC W Auto Differential pane l (Bld)on 06-16-2025 Basophils (Bld) [#/Vol] 0.1 10*3/uL 0.0 - 0.2 10*3/uL [facility] Basophils/100 WBC (Bld) 0.5 % 0.0 - 2.0 % [facility] Eosinophils (Bld) [#/Vol] 0.2 10*3/uL 0.0 - 0.5 10*3/uL [facility] Eosinophils/100 WBC (Bld) 1.9 % 0.0 - 6.0 % [facility] Erythrocyte distribution width (RBC) [Ratio] 25.6 % High 11.5 - 15.0 % [facility] Hematocrit (Bld) [Volume fraction] 27.5 % Low 35.0 - 47.0 % [facility] Hemoglobin (Bld) [Mass/Vol] 7.9 g/dL Low 11.7 - 16.0 g/dL [facility] Immature granulocytes (Bld) [#/Vol] 0 10*3/uL NINF - 0.1 10*3/uL [facility] Immature granulocytes/100 WBC (Bld) 0.4 % 0.0 - 2.0 % [facility] Interpretation and review of laboratory results Abnormal [facility] Lymphocytes (Bld) [#/Vol] 1.2 10*3/uL 1.0 - 4.3 10*3/uL [facility] Lymphocytes/100 WBC (Bld) 13.4 % Low 15.0 - 45.0 % [facility] MCH (RBC) [Entitic mass] 23.2 pg Low 26.0 - 34.0 pg [facility] MCHC (RBC) [Mass/Vol] 28.7 % Low 30.5 - 36.0 % [facility] MCV (RBC) [Entitic vol] 80.9 fL 77.0 - 99.0 fL [facility] Monocytes (Bld) [#/Vol] 0.7 10*3/uL 0.0 - 0.9 10*3/uL [facility] Monocytes/100 WBC (Bld) 7.7 % 5.0 - 13.0 % [facility] Neutrophils (Bld) [#/Vol] 6.9 10*3/uL 1.8 - 7.5 10*3/uL [facility] Neutrophils/100 WBC (Bld) 76.1 % 38.0 - 82.0 % [facility] Nucleated RBC/100 WBC (Bld) [Ratio] 0 % [facility] Platelet mean volume (Bld) [Entitic vol] 9.8 fL 9.0 - 12.7 fL [facility] Platelets (Bld) [#/Vol] 482 10*3/uL High 140 - 440 10*3/uL [facility] RBC (Bld) [#/Vol] 3.4 10*6/uL Low 3.80 - 5.20 10*6/uL [facility] WBC (Bld) [#/Vol] 9.1 10*3/uL 3.6 - 10.7 10*3/uL [facility] CBC WITH AUTO DIFFERENTIALon 06-16-2025 Basophils (Bld) [#/Vol] 0.1 10*3/uL Normal 0.0-0.2 [facility] Comment on above: Performed By: #### L [id number] ####Documentation Writer: NADIA FRENCH ([id number])[facility] ([address] Basophils/100 WBC (Bld) 0.5 % Normal 0.0-2.0 [facility] Comment on above: Performed By: #### L [id number] ####Documentation Writer: NADIA FRENCH ([id number])[facility])[address] [place] [address] Eosinophils (Bld) [#/Vol] 0.2 10*3/uL Normal 0.0-0.5 [facility] Comment on above: Performed By: #### L [id number] ####Documentation Writer: NADIA FRENCH ([id number])[facility])[address] [place] [address] Eosinophils/100 WBC (Bld) 1.9 % Normal 0.0-6.0 [facility] Comment on above: Performed By: #### L [id number] ####Documentation Writer: NADIA FRENCH ([id number])[facility])[address] [place] [address] Erythrocyte distribution width (RBC) [Ratio] 25.6 % High 11.5-15.0 [facility] Comment on above: Performed By: #### L [id number] ####Documentation Writer: NADIA FRENCH ([id number])[facility])[address] [place] [address] Hematocrit (Bld) [Volume fraction] 27.5 % Low 35.0-47.0 [facility] Comment on above: Performed By: #### L [id number] ####Documentation Writer: NADIA FRENCH ([id number])[facility])[address] [place] [address] Hemoglobin (Bld) [Mass/Vol] 7.9 g/dL Low 11.7-16.0 [facility] Comment on above: Performed By: #### L [id number] ####Documentation Writer: NADIA FRENCH ([id number])[facility])[address] [place] [address] IMMATURE GRANS % 0.4 % Normal 0.0-2.0 [facility] Comment on above: Performed By: #### L [id number] ####Documentation Writer: NADIA FRENCH ([id number])[address] IMMATURE GRANS ABSOLUTE 0.0 10*3/uL Normal <0.1 [facility] Comment on above: Performed By: #### L [id number] ####Documentation Writer: NADIA FRENCH ([id number])[facility])[address] [place] [address] Lymphocytes (Bld) [#/Vol] 1.2 10*3/uL Normal 1.0-4.3 [facility] Comment on above: Performed By: #### L [id number] ####Documentation Writer: NADIA FRENCH ([id number])[address] Lymphocytes/100 WBC (Bld) 13.4 % Low 15.0-45.0 [facility] Comment on above: Performed By: #### L [id number] ####Documentation Writer: NADIA FRENCH ([id number])[address] MCH (RBC) [Entitic mass] 23.2 pg Low 26.0-34.0 [facility] Comment on above: Performed By: #### L [id number] ####Documentation Writer: NADIA FRENCH ([id number])[address] MCHC 28.7 % Low 30.5-36.0 [facility] Comment on above: Performed By: #### L [id number] ####Documentation Writer: NADIA FRENCH ([id number])[address] MCV (RBC) [Entitic vol] 80.9 fL Normal 77.0-99.0 [facility] Comment on above: Performed By: #### L [id number] ####Documentation Writer: NADIA FRENCH ([id number])[facility] [place] [address] Monocytes (Bld) [#/Vol] 0.7 10*3/uL Normal 0.0-0.9 [facility] Comment on above: Performed By: #### L [id number] ####Documentation Writer: NADIA FRENCH ([id number])[facility] ([facility])[address] [place] [address] Monocytes/100 WBC (Bld) 7.7 % Normal 5.0-13.0 [facility] Comment on above: Performed By: #### L [id number] ####Documentation Writer: NADIA FRENCH ([id number])[facility] ([facility])[address] [place] [address] NEUTROPHILS ABSOLUTE 6.9 10*3/uL Normal 1.8-7.5 [facility] Comment on above: Performed By: #### L [id number] ####Documentation Writer: NADIA FRENCH ([id number])[facility] ([facility])[address] [place] [address] Neutrophils/100 WBC (Bld) 76.1 % Normal 38.0-82.0 [facility] Comment on above: Performed By: #### L [id number] ####Documentation Writer: NADIA FRENCH ([id number])[facility] ([facility])[address] [place] [address] NRBC 0.0 /100 WBCs Normal 0.0-2.0 [facility] Comment on above: Performed By: #### L [id number] ####Documentation Writer: NADIA FRENCH ([id number])[facility] ([facility])[address] [place] [address] Platelet mean volume (Bld) [Entitic vol] 9.8 fL Normal 9.0-12.7 [facility] Comment on above: Performed By: #### L [id number] ####Documentation Writer: NADIA FRENCH ([id number])[facility] ([facility])[address] [place] [address] [place] Platelets (Bld) [#/Vol] 482 10*3/uL High 140-440 [facility] Comment on above: Performed By: #### L [id number] ####Documentation Writer: NADIA FRENCH ([id number])[facility] ([facility])[address] [place] [address] RBC (Bld) [#/Vol] 3.40 10*6/uL Low 3.80-5.20 [facility] Comment on above: Performed By: #### L [id number] ####Documentation Writer: NADIA FRENCH ([id number])[facility] ([facility])[address] [place] [address] WBC (Bld) [#/Vol] 9.1 10*3/uL Normal 3.6-10.7 [facility] Comment on above: Performed By: #### L [id number] ####Documentation Writer: NADIA FRENCH ([id number])[facility] ([facility])[address] [place] [address] COMPREHENSIVE METABOLIC PANE David 06-16-2025 Albumin [Mass/Vol] 1.9 g/dL Low 3.4-4.8 [facility] Comment on above: Performed By: #### L [id number] ####Documentation Writer: NADIA FRENCH ([id number])[facility] ([facility])[address] [place] [address] ALP [Catalytic activity/Vol] 81 U/L Normal 40-150 [facility] Comment on above: Performed By: #### L [id number] ####Documentation Writer: NADIA FRENCH ([id number])[facility])[address] [place] [address] ALT [Catalytic activity/Vol] 12 U/L Normal <30 [facility] Comment on above: Performed By: #### L [id number] ####Documentation Writer: NADIA FRENCH ([id number])[facility])[address] [place] [address] Anion gap [Moles/Vol] 9 mmol/L Normal 3-13 [facility] Comment on above: Performed By: #### L [id number] ####Documentation Writer: NADIA FRENCH ([id number])[facility] ([facility] [facility])[address] [place] [address] AST [Catalytic activity/Vol] 28 U/L Normal <34 [facility] Comment on above: Performed By: #### L [id number] ####Documentation Writer: NADIA FRENCH ([id number])[facility] ([facility])[address] [place] [address] Bilirubin [Mass/Vol] 0.5 mg/dL Normal <1.2 [facility] Comment on above: Performed By: #### L [id number] ####Documentation Writer: NADIA FRENCH ([id number])[facility] ([facility])[address] [place] [address] Calcium [Mass/Vol] 8.1 mg/dL Low 8.8-10.0 [facility] Comment on above: Performed By: #### L [id number] ####Documentation Writer: NADIA FRENCH ([id number])[facility] ([facility])[address] [place] [address] [place] Chloride [Moles/Vol] 103 mmol/L Normal 98-107 [facility] Comment on above: Performed By: #### L [id number] ####Documentation Writer: NADIA FRENCH ([id number])[facility] ([facility])[address] [place] [address] [place] CO2 [Moles/Vol] 24 mmol/L Normal 23-31 [facility] Comment on above: Performed By: #### L [id number] ####Documentation Writer: NADIA FRENCH ([id number])[facility] ([facility])[address] [place] [address] [place] Creatinine [Mass/Vol] 1.02 mg/dL Normal 0.57-1.11 [facility] Comment on above: Performed By: #### L [id number] ####Documentation Writer: ANDIA FRENCH ([id number])[facility] ([facility])[address] [place] [address] [place] GLOMERULAR FILTRATION RATE ML/MIN/1.73 SQ M.PREDICTED 62.7 mL/min/1.73m*2 Normal >60.0 [facility] Comment on above: Result Comment: Calc ulation based on the Chronic Kidney Disease Epidemiology Collaboration (CKD-EPI) equation refit without adjustment for race Performed By: #### L [id number] ####Documentation Writer: NADIA FRENCH ([id number])[facility])[address] [place] [address] Glucose [Mass/Vol] 86 mg/dL Normal 82-115 [facility] Comment on above: Performed By: #### L [id number] ####Documentation Writer: NADIA FRENCH ([id number])[facility])[address] [place] [address] Potassium [Moles/Vol] 4.3 mmol/L Normal 3.5-5.1 [facility] Comment on above: Result Comment: [facility] potassium values may be up to 0.5 mmol/L lower than serum values. Performed By: #### L [id number] ####Documentation Writer: NADIA FRENCH ([id number])[facility] ([facility])[address] [place] [address] Protein [Mass/Vol] 6.0 g/dL Low 6.4-8.3 [facility] Comment on above: Performed By: #### L [id number] ####Documentation Writer: NADIA FRENCH ([id number])[facility])[address] [place] [address] Sodium [Moles/Vol] 136 mmol/L Normal 136-145 [facility] Comment on above: Performed By: #### L [id number] ####Documentation Writer: NADIA FRENCH ([id number])[facility])[address] [place] [address] Urea nitrogen [Mass/Vol] 33 mg/dL High 9-23 [facility] Comment on above: Performed By: #### L [id number] ####Documentation Writer: NADIA FRENCH ([id number])[facility])[address] [place] [address] metabolic [facility] panelon 06-16-2025 Albumin [Mass/Vol] 1.9 g/dL Low 3.4 - 4.8 g/dL [facility] ALP [Catalytic activity/Vol] 81 U/L 40 - 150 U/L [facility] ALT [Catalytic activity/Vol] 12 U/L NINF - 30 U/L [facility] Anion gap [Moles/Vol] 9 mmol/L 3 - 13 mmol/L [facility] AST [Catalytic activity/Vol] 28 U/L NINF - 34 U/L [facility] Bilirubin [Mass/Vol] 0.5 mg/dL NINF - 1.2 mg/dL [facility] Calcium [Mass/Vol] 8.1 mg/dL Low 8.8 - 10. 0 mg/dL [facility] Chloride [Moles/Vol] 103 mmol/L 98 - 10 7 mmol/L [facility] CO2 [Moles/Vol] 24 mmol/L 23 - 31 mmol/L [facility] Creatinine [Mass/Vol] 1.02 mg/dL 0.57 - 1.11 mg/dL [facility] GFR/1.73 sq M.predicted (S/P/Bld) [Vol rate/Area] 62.7 mL/min - PINF [facility] Glucose [Mass/Vol] 86 mg/dL 82 - 115 mg/dL [facility] Interpretation and review of laboratory results Abnormal [facility] Potassium [Moles/Vol] 4.3 mmol/L 3.5 - 5.1 mmol/L [facility] Protein [Mass/Vol] 6 g/dL Low 6.4 - 8.3 g/dL [facility] Sodium [Moles/Vol] 136 mmol/L 136 - 145 mmol/L [facility] Urea nitrogen [Mass/Vol] 33 mg/dL High 9 - 23 mg/dL [facility] Progress Noteon 06-16-2025 Progress Note Normal [facility] [id number] 06-15-2025 [id number] Normal [facility] Anesthesia Noteon 06-15-2025 Anesthesia Note Normal [facility] CBC W Auto Differential pane l (Bld)Ordered By: Veda Berry on 06-15-2025 Basophils (Bld) [#/Vol] 0.1 10*3/uL 0.0 - 0.2 10*3/uL [facility] Basophils/100 WBC (Bld) 0.9 % 0.0 - 2.0 % [facility] Eosinophils (Bld) [#/Vol] 0.2 10*3/uL 0.0 - 0.5 10*3/uL [facility] Eosinophils/100 WBC (Bld) 3.1 % 0.0 - 6.0 % [facility] Erythrocyte distribution width (RBC) [Ratio] 26.4 % High 11.5 - 15.0 % [facility] Hematocrit (Bld) [Volume fraction] 28 % Low 35.0 - 47.0 % [facility] Hemoglobin (Bld) [Mass/Vol] 7.9 g/dL Low 11.7 - 16.0 g/dL [facility] Immature granulocytes (Bld) [#/Vol] 0 10*3/uL NINF - 0.1 10*3/uL [facility] Immature granulocytes/100 WBC (Bld) 0.4 % 0.0 - 2.0 % [facility] Interpretation and review of laboratory results Abnormal [facility] Lymphocytes (Bld) [#/Vol] 1.5 10*3/uL 1.0 - 4.3 10*3/uL [facility] Lymphocytes/100 WBC (Bld) 18.6 % 15.0 - 45.0 % [facility] MCH (RBC) [Entitic mass] 22.5 pg Low 26.0 - 34.0 pg [facility] MCHC (RBC) [Mass/Vol] 28.2 % Low 30.5 - 36.0 % [facility] MCV (RBC) [Entitic vol] 79.8 fL 77.0 - 99.0 fL [facility] Monocytes (Bld) [#/Vol] 0.6 10*3/uL 0.0 - 0.9 10*3/uL [facility] Monocytes/100 WBC (Bld) 7.7 % 5.0 - 13.0 % [facility] Neutrophils (Bld) [#/Vol] 5.4 10*3/uL 1.8 - 7.5 10*3/uL [facility] Neutrophils/100 WBC (Bld) 69.3 % 38.0 - 82.0 % [facility] Nucleated RBC/100 WBC (Bld) [Ratio] 0 % [facility] Platelet mean volume (Bld) [Entitic vol] 9.8 fL 9.0 - 12.7 fL [facility] Platelets (Bld) [#/Vol] 514 10*3/uL High 140 - 440 10*3/uL [facility] RBC (Bld) [#/Vol] 3.51 10*6/uL Low 3.80 - 5.20 10*6/uL [facility] WBC (Bld) [#/Vol] 7.8 10*3/uL 3.6 - 10.7 10*3/uL [facility] CBC WITH AUTO DIFFERENTIALon 06-15-2025 Basophils (Bld) [#/Vol] 0.1 10*3/uL Normal 0.0-0.2 [facility] [place] Comment on above: Performed By: #### L [id number] ####Documentation Writer: NADIA FRENCH ([id number])[facility] ([facility])[address] [place] [address] Basophils/100 WBC (Bld) 0.9 % Normal 0.0-2.0 [facility] Comment on above: Performed By: #### L [id number] ####Documentation Writer: NADIA FRENCH ([id number])[facility] ([facility])[address] [place] [address] Eosinophils (Bld) [#/Vol] 0.2 10*3/uL Normal 0.0-0.5 [facility] Comment on above: Performed By: #### L [id number] ####Documentation Writer: NADIA FRENCH ([id number])[facility] ([facility])[address] [place] [address] Eosinophils/100 WBC (Bld) 3.1 % Normal 0.0-6.0 [facility] Comment on above: Performed By: #### L [id number] ####Documentation Writer: NADIA FRENCH ([id number])[facility])[address] [place] [address] Erythrocyte distribution width (RBC) [Ratio] 26.4 % High 11.5-15.0 [facility] Comment on above: Performed By: #### L [id number] ####Documentation Writer: NADIA [id number])[facility])[address] [place] [address] Hematocrit (Bld) [Volume fraction] 28.0 % Low 35.0-47.0 [facility] Comment on above: Performed By: #### L [id number] ####Documentation Writer: NADIA FRENCH ([id number])[facility])[address] [place] [address] Hemoglobin (Bld) [Mass/Vol] 7.9 g/dL Low 11.7-16.0 [facility] Comment on above: Performed By: #### L [id number] ####Documentation Writer: NADIA FRENCH ([id number])[facility])[address] [place] [address] IMMATURE GRANS % 0.4 % Normal 0.0-2.0 [facility] Comment on above: Performed By: #### L [id number] ####Documentation Writer: NADIA FRENCH ([id number])[facility])[address] [place] [address] IMMATURE GRANS ABSOLUTE 0.0 10*3/uL Normal <0.1 [facility] Comment on above: Performed By: #### L [id number] ####Documentation Writer: NADIA FRENCH ([id number])[facility])[address] [place] [address] Lymphocytes (Bld) [#/Vol] 1.5 10*3/uL Normal 1.0-4.3 [facility] Comment on above: Performed By: #### L [id number] ####Documentation Writer: NADIA FRENCH ([id number])[facility])[address] [place] [address] Lymphocytes/100 WBC (Bld) 18.6 % Normal 15.0-45.0 [facility] Comment on above: Performed By: #### L [id number] ####Documentation Writer: NADIA FRENCH ([id number])[facility])[address] [place] [address] MCH (RBC) [Entitic mass] 22.5 pg Low 26.0-34.0 [facility] Comment on above: Performed By: #### L [id number] ####Documentation Writer: NADIA FRENCH ([id number])[facility])[address] [place] [address] MCHC 28.2 % Low 30.5-36.0 [facility] Comment on above: Performed By: #### L [id number] ####Documentation Writer: NADIA FRENCH ([id number])[facility])[address] [place] [address] MCV (RBC) [Entitic vol] 79.8 fL Normal 77.0-99.0 [facility] Comment on above: Performed By: #### L [id number] ####Documentation Writer: NADIA FRENCH ([id number])[facility])[address] [place] [address] Monocytes (Bld) [#/Vol] 0.6 10*3/uL Normal 0.0-0.9 [facility] Comment on above: Performed By: #### L [id number] ####Documentation Writer: NADIA RFENCH ([id number])[facility])[address] [place] [address] Monocytes/100 WBC (Bld) 7.7 % Normal 5.0-13.0 [facility] Comment on above: Performed By: #### L [id number] ####Documentation Writer: NADIA FRENCH ([id number])[facility])[address] [place] [address] NEUTROPHILS ABSOLUTE 5.4 10*3/uL Normal 1.8-7.5 [facility] Comment on above: Performed By: #### L [id number] ####Documentation Writer: NADIA FRENCH ([id number])[facility])[address] [place] [address] Neutrophils/100 WBC (Bld) 69.3 % Normal 38.0-82.0 [facility] Comment on above: Performed By: #### L [id number] ####Documentation Writer: NADIA FRENCH ([id number])[facility] ([facility])[address] [place] [address] NRBC 0.0 /100 WBCs Normal 0.0-2.0 [facility] Comment on above: Performed By: #### L [id number] ####Documentation Writer: NADIA FRENCH ([id number])[facility] ([facility])[address] [place] [address] Platelet mean volume (Bld) [Entitic vol] 9.8 fL Normal 9.0-12.7 [facility] Comment on above: Performed By: #### L [id number] ####Documentation Writer: NADIA FRENCH ([id number])[facility])[address] [place] [address] Platelets (Bld) [#/Vol] 514 10*3/uL High 140-440 [facility] Comment on above: Performed By: #### L [id number] ####Documentation Writer: NADIA FRENCH ([id number])[facility] ([facility])[address] [place] [address] RBC (Bld) [#/Vol] 3.51 10*6/uL Low 3.80-5.20 [facility] Comment on above: Performed By: #### L [id number] ####Documentation Writer: NADIA FRENCH ([id number])[facility])[address] [place] [address] WBC (Bld) [#/Vol] 7.8 10*3/uL Normal 3.6-10.7 [facility] Comment on above: Performed By: #### L [id number] ####Documentation Writer: NADIA FRENCH ([id number])[facility])[address] [place] [address] COMPREHENSIVE METABOLIC PANE David 06-15-2025 Albumin [Mass/Vol] 1.9 g/dL Low 3.4-4.8 [facility] Comment on above: Performed By: #### L [id number] ####Documentation Writer: NADIA FRENCH ([id number])[facility] ([facility])[address] [place] [address] ALP [Catalytic activity/Vol] 83 U/L Normal 40-150 [facility] Comment on above: Performed By: #### L [id number] ####Documentation Writer: NADIA FRENCH ([id number])[facility] ([facility])[address] [place] [address] [place] ALT [Catalytic activity/Vol] 16 U/L Normal <30 [facility] Comment on above: Performed By: #### L [id number] ####Documentation Writer: NADIA FRENCH ([id number])[facility] ([facility])[address] [place] [address] Anion gap [Moles/Vol] 7 mmol/L Normal 3-13 [facility] Comment on above: Performed By: #### L [id number] ####Documentation Writer: NADIA FRENCH ([id number])[facility] ([facility])[address] [place] [address] AST [Catalytic activity/Vol] 28 U/L Normal <34 [facility] Comment on above: Performed By: #### L [id number] ####Documentation Writer: NADIA FRENCH ([id number])[facility] ([facility])[address] [place] [address] Bilirubin [Mass/Vol] 0.4 mg/dL Normal <1.2 [facility] Comment on above: Performed By: #### L [id number] ####Documentation Writer: NADIA FRENCH ([id number])[facility] ([facility])[address] [place] [address] Calcium [Mass/Vol] 8.1 mg/dL Low 8.8-10.0 [facility] Comment on above: Performed By: #### L [id number] ####Documentation Writer: NADIA FRENCH ([id number])[facility] ([facility])[address] [place] [address] [place] Chloride [Moles/Vol] 103 mmol/L Normal 98-107 [facility] Comment on above: Performed By: #### L [id number] ####Documentation Writer: NADIA FRENCH ([id number])[facility])[address] [place] [address] CO2 [Moles/Vol] 26 mmol/L Normal 23-31 [facility] Comment on above: Performed By: #### L [id number] ####Documentation Writer: NADIA FRENCH ([id number])[facility])[address] [place] [address] Creatinine [Mass/Vol] 1.06 mg/dL Normal 0.57-1.11 [facility] Comment on above: Performed By: #### L [id number] ####Documentation Writer: NADIA FRENCH ([id number])[facility])[address] [place] [address] GLOMERULAR FILTRATION RATE ML/MIN/1.73 SQ M.PREDICTED 59.9 mL/min/1.73m*2 Low >60.0 [facility] Comment on above: Result Comment: Calc ulation based on the Chronic Kidney Disease Epidemiology Collaboration (CKD-EPI) equation refit without adjustment for race Performed By: #### L [id number] ####Documentation Writer: NADIA FRENCH ([id number])[facility])[address] [place] [address] Glucose [Mass/Vol] 80 mg/dL Low 82-115 [facility] Comment on above: Performed By: #### L [id number] ####Documentation Writer: NADIA FRENCH ([id number])[facility])[address] [place] [address] Potassium [Moles/Vol] 3.7 mmol/L Normal 3.5-5.1 [facility] Comment on above: Result Comment: [facility] potassium values may be up to 0.5 mmol/L lower than serum values. Performed By: #### L [id number] ####Documentation Writer: NADIA FRENCH ([id number])[address] Protein [Mass/Vol] 6.1 g/dL Low 6.4-8.3 [facility] Comment on above: Performed By: #### L [id number] ####Documentation Writer: NADIA FRENCH ([id number])[facility])[address] [place] [address] Sodium [Moles/Vol] 136 mmol/L Normal 136-145 [facility] Comment on above: Performed By: #### L [id number] ####Documentation Writer: NADIA FRENCH ([id number])[facility] ([facility])[address] [place] [address] Urea nitrogen [Mass/Vol] 29 mg/dL High 9-23 [facility] Comment on above: Performed By: #### L [id number] ####Documentation Writer: NADIA FRENCH ([id number])[facility] ([facility])[address] [place] [address] Comprehensive metabolic 1998 panelon 06-15-2025 Albumin [Mass/Vol] 1.9 g/dL Low 3.4 - 4.8 g/dL [facility] ALP [Catalytic activity/Vol] 83 U/L 40 - 150 U/L [facility] ALT [Catalytic activity/Vol] 16 U/L [facility] - 30 U/L [facility] Anion gap [Moles/Vol] 7 mmol/L 3 - 13 mmol/L [facility] AST [Catalytic activity/Vol] 28 U/L [facility] - 34 U/L [facility] Bilirubin [Mass/Vol] 0.4 mg/dL NINF - 1.2 mg/dL [facility] Calcium [Mass/Vol] 8.1 mg/dL Low 8.8 - 10. 0 mg/dL [facility] Chloride [Moles/Vol] 103 mmol/L 98 - 10 7 mmol/L [facility] CO2 [Moles/Vol] 26 mmol/L 23 - 31 mmol/L [facility] Creatinine [Mass/Vol] 1.06 mg/dL 0.57 - 1.11 mg/dL [facility] GFR/1.73 sq M.predicted (S/P/Bld) [Vol rate/Area] 59.9 mL/min Low - PINF [facility] Glucose [Mass/Vol] 80 mg/dL Low 82 - 115 mg/dL [facility] Interpretation and review of laboratory results Abnormal [facility] Potassium [Moles/Vol] 3.7 mmol/L 3.5 - 5.1 mmol/L [facility] Protein [Mass/Vol] 6.1 g/dL Low 6.4 - 8.3 g/dL [facility] Sodium [Moles/Vol] 136 mmol/L 136 - 145 mmol/L [facility] Urea nitrogen [Mass/Vol] 29 mg/dL High 9 - 23 mg/dL [facility] Progress Noteon 06-15-2025 Progress Note Normal [facility] Progress Note Normal [facility] Progress Note Normal [facility] [id number] 06-14-2025 [id number] Normal [facility] CBC W Auto Differential pane l (Bld)Ordered By: Tony Bernard on 06-14-2025 Basophils (Bld) [#/Vol] 0.1 10*3/uL 0.0 - 0.2 10*3/uL [facility] Basophils/100 WBC (Bld) 0.9 % 0.0 - 2.0 % [facility] Eosinophils (Bld) [#/Vol] 0.2 10*3/uL 0.0 - 0.5 10*3/uL [facility] Eosinophils/100 WBC (Bld) 2.6 % 0.0 - 6.0 % [facility] Erythrocyte distribution width (RBC) [Ratio] 26.3 % High 11.5 - 15.0 % [facility] Hematocrit (Bld) [Volume fraction] 27.1 % Low 35.0 - 47.0 % [facility] Hemoglobin (Bld) [Mass/Vol] 7.6 g/dL Low 11.7 - 16.0 g/dL [facility] Immature granulocytes (Bld) [#/Vol] 0 10*3/uL NINF - 0.1 10*3/uL [facility] Immature granulocytes/100 WBC (Bld) 0.5 % 0.0 - 2.0 % [facility] Interpretation and review of laboratory results Abnormal [facility] Lymphocytes (Bld) [#/Vol] 1.9 10*3/uL 1.0 - 4.3 10*3/uL [facility] Lymphocytes/100 WBC (Bld) 22.8 % 15.0 - 45.0 % [facility] MCH (RBC) [Entitic mass] 22.5 pg Low 26.0 - 34.0 pg [facility] MCHC (RBC) [Mass/Vol] 28 % Low 30.5 - 36.0 % [facility] MCV (RBC) [Entitic vol] 80.2 fL 77.0 - 99.0 fL [facility] Monocytes (Bld) [#/Vol] 0.7 10*3/uL 0.0 - 0.9 10*3/uL [facility] Monocytes/100 WBC (Bld) 8 % 5.0 - 13.0 % [facility] Neutrophils (Bld) [#/Vol] 5.4 10*3/uL 1.8 - 7.5 10*3/uL [facility] Neutrophils/100 WBC (Bld) 65.2 % 38.0 - 82.0 % [facility] Nucleated RBC/100 WBC (Bld) [Ratio] 0 % [facility] Platelet mean volume (Bld) [Entitic vol] 9.8 fL 9.0 - 12.7 fL [facility] Platelets (Bld) [#/Vol] 460 10*3/uL High 140 - 440 10*3/uL [facility] RBC (Bld) [#/Vol] 3.38 10*6/uL Low 3.80 - 5.20 10*6/uL [facility] WBC (Bld) [#/Vol] 8.2 10*3/uL 3.6 - 10.7 10*3/uL [facility] CBC WITH AUTO DIFFERENTIALon 06-14-2025 Basophils (Bld) [#/Vol] 0.1 10*3/uL Normal 0.0-0.2 [facility] Comment on above: Performed By: #### L [id number] ####Documentation Writer: NADIA FRENCH ([id number])[facility] ([facility])[address] [place] [address] Basophils/100 WBC (Bld) 0.9 % Normal 0.0-2.0 [facility] Comment on above: Performed By: #### L [id number] ####Documentation Writer: NADIA FRENCH ([id number])[facility] ([facility])[address] [place] [address] Eosinophils (Bld) [#/Vol] 0.2 10*3/uL Normal 0.0-0.5 [facility] Comment on above: Performed By: #### L [id number] ####Documentation Writer: NADIA FRENCH ([id number])[facility])[address] [place] [address] Eosinophils/100 WBC (Bld) 2.6 % Normal 0.0-6.0 [facility] Comment on above: Performed By: #### L [id number] ####Documentation Writer: NADIA FRENCH ([id number])[address] Erythrocyte distribution width (RBC) [Ratio] 26.3 % High 11.5-15.0 [facility] Comment on above: Performed By: #### L [id number] ####Documentation Writer: NADIA FRENCH ([id number])[address] Hematocrit (Bld) [Volume fraction] 27.1 % Low 35.0-47.0 [facility] Comment on above: Performed By: #### L [id number] ####Documentation Writer: NADIA FRENCH ([id number])[address] Hemoglobin (Bld) [Mass/Vol] 7.6 g/dL Low 11.7-16.0 [facility] Comment on above: Performed By: #### L [id number] ####Documentation Writer: NADIA FRENCH ([id number])[facility])[address] [place] [address] IMMATURE GRANS % 0.5 % Normal 0.0-2.0 [facility] Comment on above: Performed By: #### L [id number] ####Documentation Writer: NADIA FRENCH ([id number])[address] IMMATURE GRANS ABSOLUTE 0.0 10*3/uL Normal <0.1 [facility] Comment on above: Performed By: #### L [id number] ####Documentation Writer: NADIA FRENCH ([id number])[facility])[address] [place] [address] Lymphocytes (Bld) [#/Vol] 1.9 10*3/uL Normal 1.0-4.3 [facility] Comment on above: Performed By: #### L [id number] ####Documentation Writer: NADIA FRENCH ([id number])[facility])[address] [place] [address] Lymphocytes/100 WBC (Bld) 22.8 % Normal 15.0-45.0 [facility] Comment on above: Performed By: #### L [id number] ####Documentation Writer: NADIA FRENCH ([id number])[facility])[address] [place] [address] MCH (RBC) [Entitic mass] 22.5 pg Low 26.0-34.0 [facility] Comment on above: Performed By: #### L [id number] ####Documentation Writer: NADIA FRENCH ([id number])[facility])[address] [place] [address] MCHC 28.0 % Low 30.5-36.0 [facility] Comment on above: Performed By: #### L [id number] ####Documentation Writer: NADIA FRENCH ([id number])[facility])[address] [place] [address] MCV (RBC) [Entitic vol] 80.2 fL Normal 77.0-99.0 [facility] Comment on above: Performed By: #### L [id number] ####Documentation Writer: NADIA FRENCH ([id number])[facility])[address] [place] [address] Monocytes (Bld) [#/Vol] 0.7 10*3/uL Normal 0.0-0.9 [facility] Comment on above: Performed By: #### L [id number] ####Documentation Writer: NADIA FRENCH ([id number])[facility] ([facility])[address] [place] [address] Monocytes/100 WBC (Bld) 8.0 % Normal 5.0-13.0 [facility] Comment on above: Performed By: #### L [id number] ####Documentation Writer: NADIA FRENCH ([id number])[facility] [place] [address] NEUTROPHILS ABSOLUTE 5.4 10*3/uL Normal 1.8-7.5 [facility] Comment on above: Performed By: #### L [id number] ####Documentation Writer: NADIA FRENCH ([id number])[facility] ([facility])[address] [place] [address] Neutrophils/100 WBC (Bld) 65.2 % Normal 38.0-82.0 [facility] Comment on above: Performed By: #### L [id number] ####Documentation Writer: NADIA FRENCH ([id number])[facility] ([facility])[address] [place] [address] NRBC 0.0 /100 WBCs Normal 0.0-2.0 [facility] Comment on above: Performed By: #### L [id number] ####Documentation Writer: NADIA FRENCH ([id number])[facility] ([facility])[address] [place] [address] Platelet mean volume (Bld) [Entitic vol] 9.8 fL Normal 9.0-12.7 [facility] Comment on above: Performed By: #### L [id number] ####Documentation Writer: NADIA FRENCH ([id number])[facility] ([facility])[address] [place] [address] [place] Platelets (Bld) [#/Vol] 460 10*3/uL High 140-440 [facility] Comment on above: Performed By: #### L [id number] ####Documentation Writer: NADIA FRENCH ([id number])[facility] ([facility])[address] [place] [address] [place] RBC (Bld) [#/Vol] 3.38 10*6/uL Low 3.80-5.20 [facility] Comment on above: Performed By: #### L [id number] ####Documentation Writer: NADIA FRENCH ([id number])[facility] ([facility])[address] [place] [address] WBC (Bld) [#/Vol] 8.2 10*3/uL Normal 3.6-10.7 [facility] Comment on above: Performed By: #### L [id number] ####Documentation Writer: NADIA FRENCH ([id number])[facility] ([facility])[address] [place] [address] COMPREHENSIVE METABOLIC PANE David 06-14-2025 Albumin [Mass/Vol] 1.8 g/dL Low 3.4-4.8 [facility] Comment on above: Performed By: #### L [id number] ####Documentation Writer: NADIA FRENCH ([id number])[facility] ([facility])[address] [place] [address] ALP [Catalytic activity/Vol] 81 U/L Normal 40-150 [facility] Comment on above: Performed By: #### L [id number] ####Documentation Writer: NADIA FRENCH ([id number])[facility])[address] [place] [address] ALT [Catalytic activity/Vol] 14 U/L Normal <30 [facility] Comment on above: Performed By: #### L [id number] ####Documentation Writer: NADIA FRENCH ([id number])[facility])[address] [place] [address] Anion gap [Moles/Vol] 6 mmol/L Normal 3-13 [facility] Comment on above: Performed By: #### L [id number] ####Documentation Writer: NADIA FRENCH ([id number])[facility])[address] [place] [address] AST [Catalytic activity/Vol] 26 U/L Normal <34 [facility] Comment on above: Performed By: #### L [id number] ####Documentation Writer: NADIA FRENCH ([id number])[facility] ([facility])[address] [place] [address] Bilirubin [Mass/Vol] 0.4 mg/dL Normal <1.2 [facility] Comment on above: Performed By: #### L [id number] ####Documentation Writer: NADIA FRENCH ([id number])[facility] ([facility])[address] [place] [address] Calcium [Mass/Vol] 7.9 mg/dL Low 8.8-10.0 [facility] Comment on above: Performed By: #### L [id number] ####Documentation Writer: NADIA FRENCH ([id number])[facility] ([facility])[address] [place] [address] Chloride [Moles/Vol] 104 mmol/L Normal 98-107 [facility] Comment on above: Performed By: #### L [id number] ####Documentation Writer: NADIA FRENCH ([id number])[facility] ([facility])[address] [place] [address] CO2 [Moles/Vol] 27 mmol/L Normal 23-31 [facility] Comment on above: Performed By: #### L [id number] ####Documentation Writer: NADIA FRENCH ([id number])[facility] ([facility])[address] [place] [address] Creatinine [Mass/Vol] 1.34 mg/dL High 0.57-1.11 [facility] Comment on above: Performed By: #### L [id number] ####Documentation Writer: NADIA FRENCH ([id number])[facility] ([facility])[address] [place] [address] [place] GLOMERULAR FILTRATION RATE ML/MIN/1.73 SQ M.PREDICTED 45.2 mL/min/1.73m*2 Low >60.0 [facility] Comment on above: Result Comment: Calc ulation based on the Chronic Kidney Disease Epidemiology Collaboration (CKD-EPI) equation refit without adjustment for race Performed By: #### L [id number] ####Documentation Writer: NADIA FRENCH ([id number])[facility])[address] [place] [address] [place] Glucose [Mass/Vol] 87 mg/dL Normal 82-115 [facility] Comment on above: Performed By: #### L [id number] ####Documentation Writer: NADIA FRENCH ([id number])[facility] ([facility])[address] [place] [address] Potassium [Moles/Vol] 3.8 mmol/L Normal 3.5-5.1 [facility] Comment on above: Result Comment: [facility] potassium values may be up to 0.5 mmol/L lower than serum values. Performed By: #### L [id number] ####Documentation Writer: NADIA FRENCH ([id number])[facility] ([facility])[address] [place] [address] Protein [Mass/Vol] 5.9 g/dL Low 6.4-8.3 [facility] Comment on above: Performed By: #### L [id number] ####Documentation Writer: NADIA FRENCH ([id number])[facility] ([facility])[address] [place] [address] Sodium [Moles/Vol] 137 mmol/L Normal 136-145 [facility] Comment on above: Performed By: #### L [id number] ####Documentation Writer: NADIA FRENCH ([id number])[facility] ([facility])[address] [place] [address] [place] Urea nitrogen [Mass/Vol] 31 mg/dL High 9-23 [facility] Comment on above: Performed By: #### L [id number] ####Documentation Writer: NADIA FRENCH ([id number])[facility] ([facility])[address] [place] [address] Comprehensive metabolic 1998 panelon 06-14-2025 Albumin [Mass/Vol] 1.8 g/dL Low 3.4 - 4.8 g/dL [facility] ALP [Catalytic activity/Vol] 81 U/L 40 - 150 U/L [facility] ALT [Catalytic activity/Vol] 14 U/L NINF - 30 U/L [facility] Anion gap [Moles/Vol] 6 mmol/L 3 - 13 mmol/L [facility] AST [Catalytic activity/Vol] 26 U/L NINF - 34 U/L [facility] Bilirubin [Mass/Vol] 0.4 mg/dL NINF - 1.2 mg/dL [facility] Calcium [Mass/Vol] 7.9 mg/dL Low 8.8 - 10. 0 mg/dL [facility] Chloride [Moles/Vol] 104 mmol/L 98 - 10 7 mmol/L [facility] CO2 [Moles/Vol] 27 mmol/L 23 - 31 mmol/L [facility] Creatinine [Mass/Vol] 1.34 mg/dL High 0.57 - 1.11 mg/dL [facility] GFR/1.73 sq M.predicted (S/P/Bld) [Vol rate/Area] 45.2 mL/min Low - PINF [facility] Glucose [Mass/Vol] 87 mg/dL 82 - 115 mg/dL [facility] Interpretation and review of laboratory results Abnormal [facility] Potassium [Moles/Vol] 3.8 mmol/L 3.5 - 5.1 mmol/L [facility] Protein [Mass/Vol] 5.9 g/dL Low 6.4 - 8.3 g/dL [facility] Sodium [Moles/Vol] 137 mmol/L 136 - 145 mmol/L [facility] Urea nitrogen [Mass/Vol] 31 mg/dL High 9 - 23 mg/dL [facility] Nursing Noteon 06-14-2025 Nursing Note Normal [facility] Progress Noteon 06-14-2025 Progress Note Normal [facility] Progress Note Normal [facility] Progress Note Normal [facility] Progress Note Normal [facility] [id number] 06-13-2025 [id number] Normal [facility] CBC WITH AUTO DIFFERENTIALon 06-13-2025 Basophils (Bld) [#/Vol] 0.1 10*3/uL Normal 0.0-0.2 [facility] Comment on above: Performed By: #### L [id number] ####Documentation Writer: NADIA FRENCH ([id number])[facility] ([address] Basophils/100 WBC (Bld) 0.7 % Normal 0.0-2.0 [facility] Comment on above: Performed By: #### L [id number] ####Documentation Writer: NADIA FRENCH ([id number])[facility])[address] [place] [address] Eosinophils (Bld) [#/Vol] 0.2 10*3/uL Normal 0.0-0.5 [facility] Comment on above: Performed By: #### L [id number] ####Documentation Writer: NADIA FRENCH ([id number])[facility])[address] [place] [address] Eosinophils/100 WBC (Bld) 2.5 % Normal 0.0-6.0 [facility] Comment on above: Performed By: #### L [id number] ####Documentation Writer: NADIA FRENCH ([id number])[facility])[address] [place] [address] Erythrocyte distribution width (RBC) [Ratio] 27.0 % High 11.5-15.0 [facility] Comment on above: Performed By: #### L [id number] ####Documentation Writer: NADIA FRENCH ([id number])[facility])[address] [place] [address] Hematocrit (Bld) [Volume fraction] 27.2 % Low 35.0-47.0 [facility] Comment on above: Performed By: #### L [id number] ####Documentation Writer: NADIA FRENCH ([id number])[facility])[address] [place] [address] Hemoglobin (Bld) [Mass/Vol] 7.8 g/dL Low 11.7-16.0 [facility] Comment on above: Performed By: #### L [id number] ####Documentation Writer: NADIA FRENCH ([id number])[facility])[address] [place] [address] IMMATURE GRANS % 0.7 % Normal 0.0-2.0 [facility] Comment on above: Performed By: #### L [id number] ####Documentation Writer: NADIA FRENCH ([id number])[facility])[address] [place] [address] IMMATURE GRANS ABSOLUTE 0.1 10*3/uL High <0.1 [facility] Comment on above: Performed By: #### L [id number] ####Documentation Writer: NADIA FRENCH ([id number])[facility])[address] [place] [address] Lymphocytes (Bld) [#/Vol] 1.3 10*3/uL Normal 1.0-4.3 [facility] Comment on above: Performed By: #### L [id number] ####Documentation Writer: NADIA FRENCH ([id number])[address] Lymphocytes/100 WBC (Bld) 17.6 % Normal 15.0-45.0 [facility] Comment on above: Performed By: #### L [id number] ####Documentation Writer: NADIA FRENCH ([id number])[facility])[address] [place] [address] MCH (RBC) [Entitic mass] 22.8 pg Low 26.0-34.0 [facility] Comment on above: Performed By: #### L [id number] ####Documentation Writer: NADIA FRENCH ([id number])[facility])[address] [place] [address] MCHC 28.7 % Low 30.5-36.0 [facility] Comment on above: Performed By: #### L [id number] ####Documentation Writer: NADIA FRENCH ([id number])[facility])[address] [place] [address] MCV (RBC) [Entitic vol] 79.5 fL Normal 77.0-99.0 [facility] Comment on above: Performed By: #### L [id number] ####Documentation Writer: NADIA FRENCH ([id number])[facility])[address] [place] [address] Monocytes (Bld) [#/Vol] 0.6 10*3/uL Normal 0.0-0.9 [facility] Comment on above: Performed By: #### L [id number] ####Documentation Writer: NADIA FRENCH ([id number])[facility] ([facility])[address] [place] [address] Monocytes/100 WBC (Bld) 7.6 % Normal 5.0-13.0 [facility] Comment on above: Performed By: #### L [id number] ####Documentation Writer: NADIA FRENCH ([id number])[facility] ([facility])[address] [place] [address] NEUTROPHILS ABSOLUTE 5.4 10*3/uL Normal 1.8-7.5 [facility] Comment on above: Performed By: #### L [id number] ####Documentation Writer: NADIA FRENCH ([id number])[facility] ([facility])[address] [place] [address] Neutrophils/100 WBC (Bld) 70.9 % Normal 38.0-82.0 [facility] Comment on above: Performed By: #### L [id number] ####Documentation Writer: NADIA FRENCH ([id number])[facility] ([facility])[address] [place] [address] NRBC 0.0 /100 WBCs Normal 0.0-2.0 [facility] Comment on above: Performed By: #### L [id number] ####Documentation Writer: NADIA FRENCH ([id number])[facility] ([facility])[address] [place] [address] [place] Platelet mean volume (Bld) [Entitic vol] 9.4 fL Normal 9.0-12.7 [facility] Comment on above: Performed By: #### L [id number] ####Documentation Writer: NADIA FRENCH ([id number])[facility] ([facility])[address] [place] [address] [place] Platelets (Bld) [#/Vol] 466 10*3/uL High 140-440 [facility] Comment on above: Performed By: #### L [id number] ####Documentation Writer: NADIA FRENCH ([id number])[facility])[address] [place] [address] RBC (Bld) [#/Vol] 3.42 10*6/uL Low 3.80-5.20 [facility] Comment on above: Performed By: #### L [id number] ####Documentation Writer: NADIA FRENCH ([id number])[facility])[address] [place] [address] WBC (Bld) [#/Vol] 7.6 10*3/uL Normal 3.6-10.7 [facility] Comment on above: Performed By: #### L [id number] ####Documentation Writer: NADIA FRENHC ([id number])[facility])[address] [place] [address] COMPREHENSIVE METABOLIC PANE David 06-13-2025 Albumin [Mass/Vol] 1.8 g/dL Low 3.4-4.8 [facility] Comment on above: Performed By: #### L [id number] ####Documentation Writer: NADIA FRENCH ([id number])[facility])[address] [place] [address] ALP [Catalytic activity/Vol] 81 U/L Normal 40-150 [facility] Comment on above: Performed By: #### L [id number] ####Documentation Writer: NADIA FRENCH ([id number])[facility])[address] [place] [address] ALT [Catalytic activity/Vol] 15 U/L Normal <30 [facility] Comment on above: Performed By: #### L [id number] ####Documentation Writer: NADIA FRENCH ([id number])[facility])[address] [place] [address] Anion gap [Moles/Vol] 4 mmol/L Normal 3-13 [facility] Comment on above: Performed By: #### L [id number] ####Documentation Writer: NADIA FRENCH ([id number])[facility])[address] [place] [address] [place] AST [Catalytic activity/Vol] 28 U/L Normal <34 [facility] Comment on above: Performed By: #### L [id number] ####Documentation Writer: NADIA FRENCH ([id number])[facility] ([facility])[address] [place] [address] [place] Bilirubin [Mass/Vol] 0.4 mg/dL Normal <1.2 [facility] Comment on above: Performed By: #### L [id number] ####Documentation Writer: NADIA FRENCH ([id number])[facility] ([facility])[address] [place] [address] Calcium [Mass/Vol] 8.1 mg/dL Low 8.8-10.0 [facility] Comment on above: Performed By: #### L [id number] ####Documentation Writer: NADIA FRENCH ([id number])[facility])[address] [place] [address] [place] Chloride [Moles/Vol] 105 mmol/L Normal 98-107 [facility] Comment on above: Performed By: #### L [id number] ####Documentation Writer: NADIA FRENCH ([id number])[facility] ([facility])[address] [place] [address] [place] CO2 [Moles/Vol] 28 mmol/L Normal 23-31 [facility] Comment on above: Performed By: #### L [id number] ####Documentation Writer: NADIA FRENCH ([id number])[facility] ([facility])[address] [place] [address] [place] Creatinine [Mass/Vol] 1.16 mg/dL High 0.57-1.11 [facility] Comment on above: Performed By: #### L [id number] ####Documentation Writer: NADIA FRENCH ([id number])[facility] ([facility])[address] [place] [address] [place] GLOMERULAR FILTRATION RATE ML/MIN/1.73 SQ M.PREDICTED 53.7 mL/min/1.73m*2 Low >60.0 [facility] Comment on above: Result Comment: Calc ulation based on the Chronic Kidney Disease Epidemiology Collaboration (CKD-EPI) equation refit without adjustment for race Performed By: #### L [id number] ####Documentation Writer: NADIA FRENCH ([id number])[facility])[address] [place] [address] Glucose [Mass/Vol] 92 mg/dL Normal 82-115 [facility] Comment on above: Performed By: #### L [id number] ####Documentation Writer: NADIA FRENCH ([id number])[facility])[address] [place] [address] Potassium [Moles/Vol] 4.0 mmol/L Normal 3.5-5.1 [facility] Comment on above: Result Comment: [facility] potassium values may be up to 0.5 mmol/L lower than serum values. Performed By: #### L [id number] ####Documentation Writer: NADIA FRENCH ([id number])[facility])[address] [place] [address] Protein [Mass/Vol] 6.1 g/dL Low 6.4-8.3 [facility] Comment on above: Performed By: #### L [id number] ####Documentation Writer: NADIA FRENCH ([id number])[facility])[address] [place] [address] Sodium [Moles/Vol] 137 mmol/L Normal 136-145 [facility] Comment on above: Performed By: #### L [id number] ####Documentation Writer: NADIA FRENCH ([id number])[facility])[address] [place] [address] [place] Urea nitrogen [Mass/Vol] 30 mg/dL High 9-23 [facility] Comment on above: Performed By: #### L [id number] ####Documentation Writer: NADIA FRENCH ([id number])[facility])[address] [place] [address] Comprehensive metabolic 1998 panelon 09-17-2025 Albumin [Mass/Vol] 1.8 g/dL Low 3.4 - 4.8 g/dL [facility] ALP [Catalytic activity/Vol] 81 U/L 40 - 150 U/L [facility] ALT [Catalytic activity/Vol] 15 U/L NINF - 30 U/L [facility] Anion gap [Moles/Vol] 4 mmol/L 3 - 13 mmol/L [facility] AST [Catalytic activity/Vol] 28 U/L NINF - 34 U/L [facility] Bilirubin [Mass/Vol] 0.4 mg/dL NINF - 1.2 mg/dL [facility] Calcium [Mass/Vol] 8.1 mg/dL Low 8.8 - 10. 0 mg/dL [facility] Chloride [Moles/Vol] 105 mmol/L 98 - 10 7 mmol/L [facility] CO2 [Moles/Vol] 28 mmol/L 23 - 31 mmol/L [facility] Creatinine [Mass/Vol] 1.16 mg/dL High 0.57 - 1.11 mg/dL [facility] Glucose [Mass/Vol] 92 mg/dL 82 - 115 mg/dL [facility] Potassium [Moles/Vol] 4 mmol/L 3.5 - 5.1 mmol/L [facility] Protein [Mass/Vol] 6.1 g/dL Low 6.4 - 8.3 g/dL [facility] Sodium [Moles/Vol] 137 mmol/L 136 - 145 mmol/L [facility] Consulton 06-13-2025 Consult Normal [facility] [place] MODIFIED BARIUM WITH VIDE O AND SPEECHon 06-13-2025 [place] MODIFIED BARIUM WITH VIDEO AND SPEECH Normal [facility] Progress Noteon 06-13-2025 Progress Note Nutrition rescreen completed. Patient referred to the Dietitian due to a pressure injury with wound care following. Nayely Monsivais, [place] Normal [facility] Progress Note Normal [facility] Progress Note Normal [facility] Progress Note Normal [facility] Progress Note Normal [facility] RF videography Hypopharynx a nd Esophagus Views for swallowing function W speech and W barium contrast Jonas 06-13-2025 [facility] [place] [facility] Radiology Study observation (narrative) [facility] [id number] 06-12-2025 [id number] Normal [facility] [id number] Normal [facility] [id number] Normal [facility] BLOOD TYPE AND SCREEN GELon 06-12-2025 ABO GROUPING A Normal [facility] Comment on above: Performed By: #### L [id number] ####Documentation Writer: NADIA FRENCH ([id number])[facility]LOOD [facility] ([facility])[address] [place] [address] [facility] RH TYPE IN BLOOD Positive Normal [facility] Comment on above: Performed By: #### L [id number] ####Documentation Writer: NADIA FRENCH ([id number])[facility] ([facility])[address] [place] [address] [facility] Basic Metabolic Profile (BMP )on 06-12-2025 BUN Normal 4-19 [facility] Comment on above: Result Comment: Canc elled via OM: Order cancelled - Patient discharged Performed By: #### L 500.2500, L100.0100 ####[facility] [id number] [place], [address] BUN/CRE Normal 10-20 [facility] Comment on above: Result Comment: Canc elled via OM: Order cancelled - Patient discharged Performed By: #### L 500.2500, L100.0100 ####[facility] [address] [place], [address] Calcium Normal 7.6-11.0 [facility] Comment on above: Result Comment: Canc elled via OM: Order cancelled - Patient discharged Performed By: #### L 500.2500, L100.0100 ####[facility] [address] [place], [address] CL Normal 98-108 [facility] Comment on above: Result Comment: Canc elled via OM: Order cancelled - Patient discharged Performed By: #### L 500.2500, L100.0100 ####[facility] [address] [place], [address] CO2 Normal 21.0-32.0 [facility] Comment on above: Result Comment: Canc elled via OM: Order cancelled - Patient discharged Performed By: #### L 500.2500, L100.0100 ####[facility] [address] [place], [address] CREAT,SERUM Normal 0.70-1.20 [facility] Comment on above: Result Comment: Canc elled via OM: Order cancelled - Patient discharged Performed By: #### L 500.2500, L100.0100 ####[facility] [address] [place], [address] eGFR Normal >60 [facility] Comment on above: Result Comment: Canc elled via OM: Order cancelled - Patient discharged Performed By: #### L 500.2500, L100.0100 ####[facility] [address] [place], [address] GAP Normal 5-15 [facility] Comment on above: Result Comment: Canc elled via OM: Order cancelled - Patient discharged Performed By: #### L 500.2500, L100.0100 ####[facility] [address] [place], [address] GLU Normal 70-99 [facility] Comment on above: Result Comment: Canc elled via OM: Order cancelled - Patient discharged Performed By: #### L 500.2500, L100.0100 ####[facility] [address] [place], [address] Potassium Normal 3.3-5.1 [facility] Comment on above: Result Comment: Canc elled via OM: Order cancelled - Patient discharged Performed By: #### L 500.2500, L100.0100 ####[facility] [address] [place], [address] Basic Metabolic Profile (BMP) Normal 133-145 [facility] Comment on above: Result Comment: Canc elled via OM: Order cancelled - Patient discharged Performed By: #### L 500.2500, L100.0100 ####[facility] [address] [place], [address] CBC W/Diff, Automatedon - Absolute Neut Normal 2.0-7.7 [facility] Comment on above: Result Comment: Canc elled via OM: Order cancelled - Patient discharged Performed By: #### L 500.2500, L100.0100 ####[facility] [address] [place], [address] HCT Normal 37-47 [facility] Comment on above: Result Comment: Canc elled via OM: Order cancelled - Patient discharged Performed By: #### L 500.2500, L100.0100 ####[facility] [address] [place], [address] HGB Normal 12.0-15.0 [facility] Comment on above: Result Comment: Canc elled via OM: Order cancelled - Patient discharged Performed By: #### L 500.2500, L100.0100 ####[facility] [address] [place], [address] MCH Normal 27.0-32.0 [facility] Comment on above: Result Comment: Canc elled via OM: Order cancelled - Patient discharged Performed By: #### L 500.2500, L100.0100 ####[facility] [address] [place], [address] MCHC Normal 32-36 [facility] Comment on above: Result Comment: Canc elled via OM: Order cancelled - Patient discharged Performed By: #### L 500.2500, L100.0100 ####[facility] [address] [place], [address] MCV Normal 81-99 [facility] Comment on above: Result Comment: Canc elled via OM: Order cancelled - Patient discharged Performed By: #### L 500.2500, L100.0100 ####[facility] [address] [place], [address] NEUT% Normal 47-70 [facility] Comment on above: Result Comment: Canc elled via OM: Order cancelled - Patient discharged Performed By: #### L 500.2500, L100.0100 ####[facility] [address] [place], [address] PLT Normal 150-450 [facility] Comment on above: Result Comment: Canc elled via OM: Order cancelled - Patient discharged Performed By: #### L 500.2500, L100.0100 ####[facility] [address] [place], [address] RBC Normal 4.2-5.4 [facility] Comment on above: Result Comment: Canc elled via OM: Order cancelled - Patient discharged Performed By: #### L 500.2500, L100.0100 ####[facility] [address] [place], [address] RDW CV Normal 11.6-14.6 [facility] Comment on above: Result Comment: Canc elled via OM: Order cancelled - Patient discharged Performed By: #### L 500.2500, L100.0100 ####[facility] [address] [place], [address] RDW SD Normal 35.1-43.9 [facility] Comment on above: Result Comment: Canc elled via OM: Order cancelled - Patient discharged Performed By: #### L 500.2500, L100.0100 ####[facility] [address] [place], [address] WBC Normal 4.4-11.0 [facility] Comment on above: Result Comment: Canc elled via OM: Order cancelled - Patient discharged Performed By: #### L 500.2500, L100.0100 ####[facility] [address] [place], [address] CBC WITH AUTO DIFFERENTIALon 06-12-2025 Basophils (Bld) [#/Vol] 0.0 10*3/uL Normal 0.0-0.2 [facility] Comment on above: Performed By: #### L [id number] ####Documentation Writer: NADIA FRENCH ([id number])[facility])[address] [place] [address] [place] Basophils/100 WBC (Bld) 0.6 % Normal 0.0-2.0 [facility] Comment on above: Performed By: #### L [id number] ####Documentation Writer: NADIA FRENCH ([id number])[facility])[address] [place] [address] Eosinophils (Bld) [#/Vol] 0.2 10*3/uL Normal 0.0-0.5 [facility] Comment on above: Performed By: #### L [id number] ####Documentation Writer: NADIA FRENCH ([id number])[facility] ([facility])[address] [place] [address] [place] Eosinophils/100 WBC (Bld) 2.8 % Normal 0.0-6.0 [facility] Comment on above: Performed By: #### L [id number] ####Documentation Writer: NADIA FRENCH ([id number])[facility])[address] [place] [address] Erythrocyte distribution width (RBC) [Ratio] 26.7 % High 11.5-15.0 [facility] Comment on above: Performed By: #### L [id number] ####Documentation Writer: NADIA FRENCH ([id number])[facility])[address] [place] [address] Hematocrit (Bld) [Volume fraction] 27.3 % Low 35.0-47.0 [facility] Comment on above: Performed By: #### L [id number] ####Documentation Writer: NADIA FRENCH ([id number])[facility] [address] Hemoglobin (Bld) [Mass/Vol] 7.9 g/dL Low 11.7-16.0 [facility] Comment on above: Performed By: #### L [id number] ####Documentation Writer: NADIA FRENCH ([id number])[facility])[address] [place] [address] IMMATURE GRANS % 0.6 % Normal 0.0-2.0 [facility] Comment on above: Performed By: #### L [id number] ####Documentation Writer: NADIA FRENCH ([id number])[address] IMMATURE GRANS ABSOLUTE 0.0 10*3/uL Normal <0.1 [facility] Comment on above: Performed By: #### L [id number] ####Documentation Writer: NADIA FRENCH ([id number])[facility])[address] [place] [address] Lymphocytes (Bld) [#/Vol] 1.3 10*3/uL Normal 1.0-4.3 [facility] Comment on above: Performed By: #### L [id number] ####Documentation Writer: NADIA FRENCH ([id number])[address] Lymphocytes/100 WBC (Bld) 18.7 % Normal 15.0-45.0 [facility] Comment on above: Performed By: #### L [id number] ####Documentation Writer: NADIA FRENCH ([id number])[facility])[address] [place] [address] MCH (RBC) [Entitic mass] 22.6 pg Low 26.0-34.0 [facility] Comment on above: Performed By: #### L [id number] ####Documentation Writer: NADIA FRENCH ([id number])[facility])[address] [place] [address] MCHC 28.9 % Low 30.5-36.0 [facility] Comment on above: Performed By: #### L [id number] ####Documentation Writer: NADIA FRENCH ([id number])[facility] ([facility])[address] [place] [address] MCV (RBC) [Entitic vol] 78.2 fL Normal 77.0-99.0 [facility] Comment on above: Performed By: #### L [id number] ####Documentation Writer: NADIA FRENCH ([id number])[facility])[address] [place] [address] Monocytes (Bld) [#/Vol] 0.5 10*3/uL Normal 0.0-0.9 [facility] Comment on above: Performed By: #### L [id number] ####Documentation Writer: NADIA FRENCH ([id number])[facility])[address] [place] [address] Monocytes/100 WBC (Bld) 7.6 % Normal 5.0-13.0 [facility] Comment on above: Performed By: #### L [id number] ####Documentation Writer: NADIA FRENCH ([id number])[facility] ([facility])[address] [place] [address] NEUTROPHILS ABSOLUTE 5.0 10*3/uL Normal 1.8-7.5 [facility] Comment on above: Performed By: #### L [id number] ####Documentation Writer: NADIA FRENCH ([id number])[facility])[address] [place] [address] Neutrophils/100 WBC (Bld) 69.7 % Normal 38.0-82.0 [facility] Comment on above: Performed By: #### L [id number] ####Documentation Writer: NADIA FRENCH ([id number])[facility])[address] [place] [address] NRBC 0.0 /100 WBCs Normal 0.0-2.0 [facility] Comment on above: Performed By: #### L [id number] ####Documentation Writer: NADIA FRENCH ([id number])[facility] ([facility])[address] [place] [address] Platelet mean volume (Bld) [Entitic vol] 9.5 fL Normal 9.0-12.7 [facility] Comment on above: Performed By: #### L [id number] ####Documentation Writer: NADIA FRENCH ([id number])[facility])[address] [place] [address] Platelets (Bld) [#/Vol] 453 10*3/uL High 140-440 [facility] Comment on above: Performed By: #### L [id number] ####Documentation Writer: NADIA FRENCH ([id number])[facility])[address] [place] [address] RBC (Bld) [#/Vol] 3.49 10*6/uL Low 3.80-5.20 [facility] Comment on above: Performed By: #### L [id number] ####Documentation Writer: NADIA FRENCH ([id number])[facility] ([facility])[address] [place] [address] WBC (Bld) [#/Vol] 7.1 10*3/uL Normal 3.6-10.7 [facility] Comment on above: Performed By: #### L [id number] ####Documentation Writer: NADIA FRENCH ([id number])[facility])[address] [place] [address] Erythrocyte distribution width (RBC) [Ratio] 26.9 % High 11.5-15.0 [facility] Comment on above: Performed By: #### L [id number], [id number] ####Documentation Writer: NADIA FRENCH ([id number])[facility])[address] [place] [address] Hematocrit (Bld) [Volume fraction] 26.1 % Low 35.0-47.0 [facility] Comment on above: Performed By: #### L [id number], [id number] ####Documentation Writer: NADIA [id number])[facility] ([facility])[address] [place] [address] Hemoglobin (Bld) [Mass/Vol] 7.6 g/dL Low 11.7-16.0 [facility] Comment on above: Performed By: #### L [id number], [id number] ####Documentation Writer: NADIA FRENCH ([id number])[facility])[address] [place] [address] MCH (RBC) [Entitic mass] 23.1 pg Low 26.0-34.0 [facility] Comment on above: Performed By: #### L [id number], [id number] ####Documentation Writer: NADIA FRENCH ([id number])[facility])[address] [place] [address] MCHC 29.1 % Low 30.5-36.0 [facility] Comment on above: Performed By: #### L [id number], [id number] ####Documentation Writer: NADIA FRENCH ([id number])[facility] ([facility])[address] [place] [address] MCV (RBC) [Entitic vol] 79.3 fL Normal 77.0-99.0 [facility] Comment on above: Performed By: #### L [id number], [id number] ####Documentation Writer: NADIA FRENCH ([id number])[facility])[address] [place] [address] Platelet mean volume (Bld) [Entitic vol] 9.5 fL Normal 9.0-12.7 [facility] Comment on above: Performed By: #### L [id number], [id number] ####Documentation Writer: NADIA FRENCH ([id number])[facility])[address] [place] [address] Platelets (Bld) [#/Vol] 450 10*3/uL High 140-440 [facility] Comment on above: Performed By: #### L [id number], [id number] ####Documentation Writer: NADIA FRENCH ([id number])[facility] ([facility])[address] [place] [address] RBC (Bld) [#/Vol] 3.29 10*6/uL Low 3.80-5.20 [facility] Comment on above: Performed By: #### L [id number], [id number] ####Documentation Writer: NADIA FRENCH ([id number])[facility] ([facility])[address] [place] [address] WBC (Bld) [#/Vol] 7.1 10*3/uL Normal 3.6-10.7 [facility] Comment on above: Performed By: #### L [id number], [id number] ####Documentation Writer: NADIA FRENCH ([id number])[facility] ([facility])[address] [place] [address] COMPREHENSIVE METABOLIC PANE David 06-12-2025 Albumin [Mass/Vol] 1.8 g/dL Low 3.4-4.8 [facility] Comment on above: Performed By: #### L AB129, LAB17, EMU456, [id number] ####Documentation Writer: NADIA FRENCH ([id number])[facility] ([facility])[address] [place] [address] ALP [Catalytic activity/Vol] 78 U/L Normal 40-150 [facility] Comment on above: Performed By: #### L AB129, LAB17, TRP378, QKM800 ####Documentation Writer: NADIA FRENCH ([id number])[facility])[address] [place] [address] ALT [Catalytic activity/Vol] 20 U/L Normal <30 [facility] Comment on above: Performed By: #### L AB129, LAB17, PVR649, ETN046 ####Documentation Writer: NADIA FRENCH ([id number])[facility])[address] [place] [address] Anion gap [Moles/Vol] 8 mmol/L Normal 3-13 [facility] Comment on above: Performed By: #### L AB129, LAB17, RCW442, OOP119 ####Documentation Writer: NADIA FRENCH ([id number])[facility] ([facility])[address] [place] [address] AST [Catalytic activity/Vol] 31 U/L Normal <34 [facility] Comment on above: Performed By: #### L AB129, LAB17, UOA460, XQK817 ####Documentation Writer: NADIA FRENCH ([id number])[facility] ([facility])[address] [place] [address] Bilirubin [Mass/Vol] 0.5 mg/dL Normal <1.2 [facility] Comment on above: Performed By: #### L AB129, LAB17, ZMY732, KCY059 ####Documentation Writer: NADIA FRENCH ([id number])[facility] ([facility])[address] [place] [address] Calcium [Mass/Vol] 8.0 mg/dL Low 8.8-10.0 [facility] Comment on above: Performed By: #### L AB129, LAB17, NIC444, MWV960 ####Documentation Writer: NADIA FRENCH ([id number])[facility] ([facility])[address] [place] [address] Chloride [Moles/Vol] 103 mmol/L Normal 98-107 [facility] Comment on above: Performed By: #### L AB129, LAB17, JVD753, LUR464 ####Documentation Writer: NADIA FRENCH ([id number])[facility] ([facility])[address] [place] [address] [place] CO2 [Moles/Vol] 29 mmol/L Normal 23-31 [facility] Comment on above: Performed By: #### L AB129, LAB17, PVC858, VOU207 ####Documentation Writer: NADIA FRENCH ([id number])[facility])[address] [place] [address] Creatinine [Mass/Vol] 1.32 mg/dL High 0.57-1.11 [facility] Comment on above: Performed By: #### L AB129, LAB17, ROL102, CQK459 ####Documentation Writer: NADIA FRENCH ([id number])[address] GLOMERULAR FILTRATION RATE ML/MIN/1.73 SQ M.PREDICTED 46.0 mL/min/1.73m*2 Low >60.0 [facility] Comment on above: Result Comment: Calc ulation based on the Chronic Kidney Disease Epidemiology Collaboration (CKD-EPI) equation refit without adjustment for race Performed By: #### L AB129, LAB17, OMS153, HUV609 ####Documentation Writer: NADIA FRENCH ([id number])[address] Glucose [Mass/Vol] 95 mg/dL Normal 82-115 [facility] Comment on above: Performed By: #### L AB129, LAB17, AKX106, FOR498 ####Documentation Writer: NADIA FRENCH ([id number])[address] Potassium [Moles/Vol] 3.9 mmol/L Normal 3.5-5.1 [facility] Comment on above: Result Comment: [facility] potassium values may be up to 0.5 mmol/L lower than serum values. Performed By: #### L AB129, LAB17, JOE842, MQF002 ####Documentation Writer: NADIA FRENCH ([id number])[address] Protein [Mass/Vol] 6.2 g/dL Low 6.4-8.3 [facility] Comment on above: Performed By: #### L AB129, LAB17, NST899, ONB595 ####Documentation Writer: NADIA FRENCH ([id number])[address] Sodium [Moles/Vol] 140 mmol/L Normal 136-145 [facility] Comment on above: Performed By: #### L AB129, LAB17, ZEA439, SHS189 ####Documentation Writer: NADIA FRENCH ([id number])[facility])[address] [place] [address] Urea nitrogen [Mass/Vol] 41 mg/dL High 9-23 [facility] Comment on above: Performed By: #### L AB129, LAB17, BLO444, CAQ385 ####Documentation Writer: NADIA FRENCH ([id number])[facility] ([facility])[address] [place] [address] Consulton 06-12-2025 Consult See SW note. Normal [facility] Consult Normal [facility] ECG 12-LEADon 06-12-2025 ECG 12-LEAD IMPRESSION: Atypical Atrial flutter vs coarse Atrial fibrillation LVH with secondary repolarization abnormality Electronically Signed On 06-12-2025 17:39:43 EDT by Ligia Lackey Normal [facility] MAGNESIUMon 06-12-2025 Magnesium [Mass/Vol] 1.9 mg/dL Normal 1.6-2.6 [facility] Comment on above: Result Comment: YESY [place] COMMENTS:Higher values can be expected in females during menses. Performed By: #### L AB129, LAB17, TCA908, LAS460 ####Documentation Writer: NADIA FRENCH ([id number])[facility] ([facility])[address] [place] [address] MANUAL DIFFERENTIAL (CELLAVI JOHN)on 06-12-2025 ANISOCYTOSIS PRESENCE IN BLOOD BY LIGHT MICROSCOPY Slight Abnormal (none) [facility] Comment on above: Performed By: #### L [id number], [id number] ####Documentation Writer: NADIA FRENCH ([id number])[facility] ([facility])[address] [place] [address] BAND NEUTROPHILS TOTAL PER COUNTED LEUKOCYTES BY MANUAL COUNT 1 Normal [facility] Comment on above: Performed By: #### L [id number], [id number] ####Documentation Writer: NADIA FRENCH ([id number])[facility] ([facility])[address] [place] [address] BANDS (10*3/UL) IN BLOOD-CELLAVISION 0.1 10*3/uL High <=0.0 [facility] Comment on above: Performed By: #### L [id number], [id number] ####Documentation Writer: NADIA FRENCH ([id number])[facility])[address] [place] [address] [place] BASOPHILS (10*3/UL) IN BLOOD-CELLAVISION 0.2 10*3/uL Normal 0.0-0.2 [facility] Comment on above: Performed By: #### L [id number], [id number] ####Documentation Writer: NADIA FRENCH ([id number])[facility])[address] [place] [address] [place] BASOPHILS TOTAL PER COUNTED LEUKOCYTES BY MANUAL COUNT 3 Normal [facility] Comment on above: Performed By: #### L [id number], [id number] ####Documentation Writer: NADIA FRENCH ([id number])[facility])[address] [place] [address] [place] BASOPHILS/100 LEUKOCYTES IN BLOOD-CELLAVISION 3 % High 0-2 [facility] Comment on above: Performed By: #### L [id number], [id number] ####Documentation Writer: NADIA FRENCH ([id number])[facility])[address] [place] [address] [place] BLASTS TOTAL PER COUNTED LEUKOCYTES BY MANUAL COUNT Normal [facility] Comment on above: Performed By: #### L [id number], [id number] ####Documentation Writer: NADIA FRENCH ([id number])[facility] ([facility])[address] [place] [address] [place] EOSINOPHILS (10*3/UL) IN BLOOD-CELLAVISION 0.2 10*3/uL Normal 0.0-0.5 [facility] Comment on above: Performed By: #### L [id number], [id number] ####Documentation Writer: NADIA FRENCH ([id number])[facility])[address] [place] [address] [place] EOSINOPHILS TOTAL PER COUNTED LEUKOCYTES BY MANUAL COUNT 3 High 0-1 [facility] Comment on above: Performed By: #### L [id number], [id number] ####Documentation Writer: NADIA FRENCH ([id number])[facility] ([facility])[address] [place] [address] [place] EOSINOPHILS/100 LEUKOCYTES IN BLOOD-CELLAVISION 3 % Normal 0-6 [facility] Comment on above: Performed By: #### L [id number], [id number] ####Documentation Writer: NADIA FRENCH ([id number])[facility] [facility] ([facility] [place] [address] [place] HYPOCHROMIA (PRESENCE) IN BLOOD BY LIGHT MICROSCOPY Moderate Abnormal (none) [facility] Comment on above: Performed By: #### L [id number], [id number] ####Documentation Writer: NADIA FRENCH ([id number])[facility] ([facility])[address] [place] [address] [place] LYMPHOCYTES (10*3/UL) IN BLOOD-CELLAVISION 1.3 10*3/uL Normal 1.0-4.3 [facility] Comment on above: Performed By: #### L [id number], [id number] ####Documentation Writer: NADIA FRENCH ([id number])[facility] ([facility])[address] [place] [address] [place] LYMPHOCYTES TOTAL PER COUNTED LEUKOCYTES BY MANUAL COUNT 19 Normal [facility] Comment on above: Performed By: #### L [id number], [id number] ####Documentation Writer: NADIA FRENCH ([id number])[facility] ([facility])[address] [place] [address] [place] LYMPHOCYTES/100 LEUKOCYTES IN BLOOD-CELLAVISION 19 % Normal 15-45 [facility] Comment on above: Performed By: #### L [id number], [id number] ####Documentation Writer: NADIA FRENCH ([id number])[facility] ([facility])[address] [place] [address] [place] MACROCYTES (PRESENCE) IN BLOOD BY LIGHT MICROSCOPY Slight Abnormal (none) [facility] Comment on above: Performed By: #### L [id number], [id number] ####Documentation Writer: NADIA FRENCH ([id number])[facility] ([facility])[address] [place] [address] [place] METAMYELOCYTES TOTAL PER COUNTED LEUKOCYTES BY MANUAL COUNT Normal [facility] Comment on above: Performed By: #### L [id number], [id number] ####Documentation Writer: NADIA FRENCH ([id number])[facility] ([facility])[address] [place] [address] MICROCYTES (PRESENCE) IN BLOOD BY LIGHT MICROSCOPY Slight Abnormal (none) [facility] Comment on above: Performed By: #### L [id number], [id number] ####Documentation Writer: NADIA FRENCH ([id number])[facility])[address] [place] [address] MONOCYTES (10*3/UL) IN BLOOD-CELLAVISION 0.1 10*3/uL Normal 0.0-0.9 [facility] Comment on above: Performed By: #### L [id number], [id number] ####Documentation Writer: NADIA FRENCH ([id number])[facility] ([facility])[address] [place] [address] [place] MONOCYTES TOTAL PER COUNTED LEUKOCYTES BY MANUAL COUNT 2 Normal [facility] Comment on above: Performed By: #### L [id number], [id number] ####Documentation Writer: NADIA FRENCH ([id number])[facility])[address] [place] [address] [place] MONOCYTES/100 LEUKOCYTES IN BLOOD-JAMEEL 2 % Low 5-13 [facility] Comment on above: Performed By: #### L [id number], [id number] ####Documentation Writer: NADIA FRENCH ([id number])[facility])[address] [place] [address] [place] MYELOCYTES COUNTED BY MANUAL COUNT Normal [facility] Comment on above: Performed By: #### L [id number], [id number] ####Documentation Writer: NADIA [id number])[facility] ([facility])[address] [place] [address] [place] NEUTROPHILS BAND FORM/100 LEUKOCYTES IN BLOOD-CELLAVISI 1 % High <=0 [facility] Comment on above: Performed By: #### L [id number], [id number] ####Documentation Writer: NADIA FRENCH ([id number])[facility] ([facility])[address] [place] [address] [place] NEUTROPHILS TOTAL PER COUNTED LEUKOCYTES BY MANUAL COUNT 73 Normal [facility] Comment on above: Performed By: #### L [id number], [id number] ####Documentation Writer: NAIDA FRENCH ([id number])[facility] ([facility])[address] [place] [address] OVALOCYTES PRESENCE IN BLOOD BY LIGHT MICROSCOPY Slight Abnormal (none) [facility] Comment on above: Performed By: #### L [id number], [id number] ####Documentation Writer: NADIA FRENCH ([id number])[facility])[address] [place] [address] [place] POLYCHROMASIA IN BLOOD BY LIGHT MICROSCOPY Slight Abnormal (none) [facility] Comment on above: Performed By: #### L [id number], [id number] ####Documentation Writer: NADIA FRENCH ([id number])[facility] ([facility])[address] [place] [address] [place] PROMYELOCYTES TOTAL PER COUNTED LEUKOCYTES BY MANUAL COUNT Normal [facility] Comment on above: Performed By: #### L [id number], [id number] ####Documentation Writer: NADIA FRENCH ([id number])[facility] ([facility])[address] [place] [address] [place] RBC MORPHOLOGY IN BLOOD abnormal Normal [facility] Comment on above: Performed By: #### L [id number], [id number] ####Documentation Writer: NADIA FRENCH ([id number])[facility])[address] [place] [address] [place] SEGMENTED NEUTROPHILS (10*3/UL) IN BLOOD-CELLAVISION 5.2 10*3/uL Normal 1.8-7.5 [facility] Comment on above: Performed By: #### L [id number], [id number] ####Documentation Writer: NADIA FRENCH ([id number])[facility])[address] [place] [address] SEGMENTED NEUTROPHILS/100 LEUKOCYTES-CE 72 % Normal 38-82 [facility] Comment on above: Performed By: #### L [id number], [id number] ####Documentation Writer: NADIA FRENCH ([id number])[facility])[address] [place] [address] UNCLASSIFIED CELLS TOTAL PER COUNTED LEUKOCYTES BY MANUAL COUNT [facility] Comment on above: Performed By: #### L [id number], [id number] ####Documentation Writer: NADIA FRENCH ([id number])[facility])[address] [place] [address] VARIANT LYMPHOCYTES TOTAL PER COUNTED LEUKOCYTES BY MANUAL COUNT [facility] Comment on above: Performed By: #### L [id number], [id number] ####Documentation Writer: NADIA FRENCH ([id number])[facility] ([facility])[address] [place] [address] PHOSPHORUSon 06-12-2025 Phosphate [Mass/Vol] 3.5 mg/dL Normal 2.3-4.7 [facility] Comment on above: Performed By: #### L [id number], [id number], [id number], [id number] ####Documentation Writer: NADIA FRENCH ([id number])[facility])[address] [place] [address] PROTIME AND APTTon aPTT Coag (Bld) [Time] 34.8 s High 20.0-30.5 [facility] Comment on above: Performed By: #### L [id number] ####Documentation Writer: NADIA FRENCH ([id number])[facility])[address] [place] [address] INR Coag (PPP) [Relative time] 1.0 {INR} Normal 0.9-1.1 [facility] Comment on above: Result Comment: Leonardo mmended Anticoagulant Therapy: SEE BELOW----- INR of 2.0 - 3.0 : - Prophylaxis of Venous Thrombosis (high-risk surgery) - Treatment of Venous Thrombosis - Treatment of Pulmonary Embolism (Includes tissue heart valves, Acute Myocardial Infarction to prevent systemic embolism, Valvular Heart Disease, and Atrial Fibrillation)----- INR of 2.5 - 3.5 : - Mechanical Prosthetic Valves (high risk) - If oral anticoagulant therapy is used to prevent Myocardial Infarction Performed By: #### L [id number] ####Documentation Writer: NADIA FRENCH ([id number])[facility] ([facility])[address] [place] [address] PT Coag (PPP) [Time] 11.0 s Normal 9.0-12.0 [facility] Comment on above: Performed By: #### L [id number] ####Documentation Writer: NADIA FRENCH ([id number])[facility] ([facility])[address] [place] [address] Progress Noteon 06-12-2025 Progress Note Normal [facility] THYROID STIMULATING HORMONEo n 06-12-2025 THYROID STIMULATING HORMONE 2.80 uIU/mL Normal 0.35-4.94 [facility] Comment on above: Performed By: #### L [id number], LAB17, [id number], [id number] ####Documentation Writer: NADIA FRENCH ([id number])[facility] ([facility])[address] [place] [address] XR CHEST 1 VIEWon 06-12-2025 XR CHEST 1 VIEW Normal [facility] Absolute lymphocyte countOrd ered By: Ziggy Shelton on 06-11-2025 Lymphocytes Auto (Unsp spec) [#/Vol] 1.34 10*3/uL 0.83-4.51 [facility] Anion gap in Serum or Plasma Ordered By: Ziggy Shelton on 06-11-2025 Anion gap [Moles/Vol] 11 mmol/L 5-15 [facility] Automated lymphocyte count a s percentage of total leukocytesOrdered By: Ziggy Shelton on 06-11-2025 Lymphocytes/100 WBC Auto (Unsp spec) 18.7 % Low 19-41 [facility] BUN/creatinine ratioOrdered By: Ziggy Shelton on 06-11-2025 Urea nitrogen/Creatinine [Mass ratio] 23.9 mg/mg High 10-20 [facility] Basic Metabolic Profile (BMP )on 06-11-2025 BUN/CRE 23.9 RATIO High 10-20 [facility] Comment on above: Performed By: #### L 100.0100, L500.2500 ####[facility] [address] [place], [address] Calcium [Mass/Vol] 8.1 mg/dL Normal 7.6-11.0 [facility] Comment on above: Performed By: #### L 100.0100, L500.2500 ####[facility] [address] [place], [address] Chloride [Moles/Vol] 101 mmol/L Normal 98-108 [facility] Comment on above: Performed By: #### L 100.0100, L500.2500 ####[facility] [address] [place], [address] CO2 [Moles/Vol] 27.9 mmol/L Normal 21.0-32.0 [facility] Comment on above: Performed By: #### L 100.0100, L500.2500 ####[facility] [address] [place], [address] Creatinine [Mass/Vol] 1.57 mg/dL High 0.70-1.20 [facility] Comment on above: Performed By: #### L 100.0100, L500.2500 ####[facility] [address] [place], [address] ECRCL 39.09 ml/min Low 50-250 [facility] Comment on above: Performed By: #### L 100.0100, L500.2500 ####[facility] [address] [place], [address] GAP 11 Normal 5-15 [facility] Comment on above: Performed By: #### L 100.0100, L500.2500 ####[facility] [address] [place], [address] GFR/1.73 sq M.predicted among non-blacks MDRD (S/P/Bld) [Vol rate/Area] 37 mL/min/{1.73_m2} Low >60 [facility] Comment on above: Result Comment: mL/m in/1.73m2 CKD-EPI Creatinine Equation (2020) Performed By: #### L 100.0100, L500.2500 ####[facility] [address] [place], [address] Glucose [Mass/Vol] 92 mg/dL Normal 70-99 [facility] Comment on above: Performed By: #### L 100.0100, L500.2500 ####[facility] [address] [place], [address] Potassium [Moles/Vol] 3.9 mmol/L Normal 3.3-5.1 [facility] Comment on above: Performed By: #### L 100.0100, L500.2500 ####[facility] [address] [place], [address] Sodium [Moles/Vol] 139 mmol/L Normal 133-145 [facility] Comment on above: Performed By: #### L 100.0100, L500.2500 ####[facility] [address] [place], [address] Urea nitrogen [Mass/Vol] 38 mg/dL High 4-19 [facility] Comment on above: Performed By: #### L 100.0100, L500.2500 ####[facility] [address] [place], [address] Basophil percentageOrdered B y: Ziggy Shelton on 06-11-2025 Basophils/100 WBC (Bld) 0.7 % 0-1 [facility] Blood manual differential co mment interpretation (narrative result)Ordered By: Ziggy Shelton on 06-11-2025 Manual differential comment Lino (Bld) [Interp] SCANNED [facility] CBC W/Diff, Automatedon 05-28 Anisocytosis Ql (Bld) 2+ Normal [facility] Comment on above: Performed By: #### L 100.0100, L500.2500 ####[facility] [address] [place], [address] HYPOCHROMASIA 1+ Normal [facility] Comment on above: Performed By: #### L 100.0100, L500.2500 ####[facility] [address] [place], [address] SMEAR COMMENT SCANNED Normal [facility] Comment on above: Performed By: #### L 100.0100, L500.2500 ####[facility] [address] [place], [address] Carbon dioxide, total [Moles /volume] in Central venous bloodOrdered By: Ziggy Shelton on 06-11-2025 CO2 [Moles/Vol] 27.9 mmol/L 21.0-32.0 [facility] Chloride assayOrdered By: Nai Shelton on 06-11-2025 Chloride [Moles/Vol] 101 mmol/L 98-108 [facility] Eosinophil percentageOrdered By: Ziggy Shelton on 06-11-2025 Eosinophils/100 WBC (Bld) 2.5 % 0-5 [facility] Erythrocyte distribution wid th ratioOrdered By: Ziggy Shelton on 06-11-2025 Erythrocyte distribution width (RBC) [Ratio] 26.5 % High 11.6-14.6 [facility] Erythrocyte distribution wid th standard deviationOrdered By: Ziggy Shelton on 06-11-2025 Erythrocyte distribution width (RBC) [Ratio] 71.8 fl High 35.1-43.9 [facility] Glomerular filtration rate ( GFR) estimation/1.73 sq m using serum, plasma, or whole bOrdered By: Ziggy Shelton on 06-11-2025 GFR/1.73 sq M.predicted among non-blacks MDRD (S/P/Bld) [Vol rate/Area] 37 mL/min/{1.73_m2} Low >60 [facility] Hematocrit Auto (Bld) [Volum e fraction]Ordered By: Ziggy Shelton on 06-11-2025 Hematocrit (Bld) [Volume fraction] 26.0 % Low 37-47 [facility] Hemoglobin measurementOrdere d By: Ziggy Shelton on 06-11-2025 Hemoglobin (Bld) [Mass/Vol] 7.4 g/dL Low 12.0-15.0 [facility] Hypochromatic red blood cell detectionOrdered By: Ziggy Shelton on 06-11-2025 Hypochromia Ql (Bld) 1+ [facility] Immature granulocytes/100 WB C Auto (Bld)Ordered By: Ziggy Shelton on 06-11-2025 Immature granulocytes/100 WBC (Bld) 0.800 % 0.0-0.9 [facility] MCV (mean corpuscular volume ) determinationOrdered By: Ziggy Shelton on 06-11-2025 MCV (RBC) [Entitic vol] 79.3 fL Low 81-99 [facility] Mean corpuscular hemoglobin (MCH) determinationOrdered By: Ziggy Shelton on 06-11-2025 MCH (RBC) [Entitic mass] 22.6 pg Low 27.0-32.0 [facility] Monocyte percentageOrdered B y: Ziggy Shelton on 06-11-2025 Monocytes/100 WBC (Bld) 8.6 % 0-10 [facility] Neutrophil percentageOrdered By: Ziggy Shelton on 06-11-2025 Neutrophils/100 WBC (Bld) 68.7 % 47-70 [facility] No Panel InformationOrdered By: Ziggy Shelton on 06-11-2025 2+ [facility] Platelet countOrdered By: Nai Shelton on 06-11-2025 Platelets (Bld) [#/Vol] 462 10*3/uL High 150-450 [facility] Potassium measurement (mass/ volume)Ordered By: Ziggy Shelton on 06-11-2025 Potassium (Unsp spec) [Mass/Vol] 3.9 mmol/L 3.3-5.1 [facility] RBC Auto (Bld) [#/Vol]Ordere d By: Ziggy Shelton on 06-11-2025 RBC (Bld) [#/Vol] 3.28 10*6/uL Low 4.2-5.4 [facility] Serum creatinine measurement (mass/volume)Ordered By: Ziggy Shelton on 06-11-2025 Creatinine [Mass/Vol] 1.57 mg/dL High 0.70-1.20 [facility] Serum glucose measurement (m ass/volume)Ordered By: Ziggy Shelton on 06-11-2025 Glucose [Mass/Vol] 92 mg/dL 70-99 [facility] Serum or plasma calcium suresh urement (mass/volume)Ordered By: Ziggy Shelton on 06-11-2025 Calcium [Mass/Vol] 8.1 mg/dL 7.6-11.0 [facility] Serum or plasma urea nitroge n measurement (mass/volume)Ordered By: Ziggy Shelton on 06-11-2025 Urea nitrogen [Mass/Vol] 38 mg/dL High 4-19 [facility] Sodium levelOrdered By: Gera Shelton on 06-11-2025 Sodium [Moles/Vol] 139 mmol/L 133-145 [facility] White blood cell (WBC) count Ordered By: Ziggy Shelton on 06-11-2025 WBC (Bld) [#/Vol] 7.2 10*3/uL 4.4-11.0 [facility] Basic Metabolic Profile (BMP )on 06-10-2025 BUN/CRE 25.1 RATIO High 10-20 [facility] Comment on above: Performed By: #### L 500.2500, L100.0100 ####[facility] [address] [place], [place], [address] Calcium [Mass/Vol] 8.0 mg/dL Normal 7.6-11.0 [facility] Comment on above: Performed By: #### L 500.2500, L100.0100 ####[facility] [address] [place], [address] Chloride [Moles/Vol] 102 mmol/L Normal 98-108 [facility] Comment on above: Performed By: #### L 500.2500, L100.0100 ####[facility] [address] [place], [address] CO2 [Moles/Vol] 26.2 mmol/L Normal 21.0-32.0 [facility] Comment on above: Performed By: #### L 500.2500, L100.0100 ####[facility] [address] [place], [address] Creatinine [Mass/Vol] 1.74 mg/dL High 0.70-1.20 [facility] Comment on above: Performed By: #### L 500.2500, L100.0100 ####[facility] [address] [place], [address] ECRCL 35.08 ml/min Low 50-250 [facility] Comment on above: Performed By: #### L 500.2500, L100.0100 ####[facility] [address] [place], [address] GAP 11 Normal 5-15 [facility] Comment on above: Performed By: #### L 500.2500, L100.0100 ####[facility] [address] [place], [address] GFR/1.73 sq M.predicted among non-blacks MDRD (S/P/Bld) [Vol rate/Area] 33 mL/min/{1.73_m2} Low >60 [facility] Comment on above: Result Comment: mL/m in/1.73m2 CKD-EPI Creatinine Equation (2020) Performed By: #### L 500.2500, L100.0100 ####[facility] [address] [place], [address] Glucose [Mass/Vol] 95 mg/dL Normal 70-99 [facility] Comment on above: Performed By: #### L 500.2500, L100.0100 ####[facility] [address] [place], [address] Potassium [Moles/Vol] 4.0 mmol/L Normal 3.3-5.1 [facility] Comment on above: Performed By: #### L 500.2500, L100.0100 ####[facility] [address] [place], [address] Sodium [Moles/Vol] 139 mmol/L Normal 133-145 [facility] Comment on above: Performed By: #### L 500.2500, L100.0100 ####[facility] [address] [place], [address] Urea nitrogen [Mass/Vol] 44 mg/dL High 4-19 [facility] Comment on above: Performed By: #### L 500.2500, L100.0100 ####[facility] [address] [place], [address] CBC W/Diff, Automatedon 05-28 Anisocytosis Ql (Bld) 2+ Normal [facility] Comment on above: Performed By: #### L 500.2500, L100.0100 ####[facility] [address] [place], [address] HYPOCHROMASIA 3+ Normal [facility] Comment on above: Performed By: #### L 500.2500, L100.0100 ####[facility] [address] [place], [address] Magnesiumon 06-10-2025 Magnesium [Mass/Vol] 2.1 mg/dL Normal 1.5-2.2 [facility] Comment on above: Performed By: #### L 501.5200, L501.2300 ####[facility] [address] [place], [address] Magnesium measurement (mass/ volume)Ordered By: Juvenal Roblero on 06-10-2025 Magnesium (Unsp spec) [Mass/Vol] 2.1 mg/dL 1.5-2.2 [facility] Phosphoruson 06-10-2025 Phosphate [Mass/Vol] 3.6 mg/dL Normal 2.7-4.5 [facility] Comment on above: Performed By: #### L 501.5200, L501.2300 ####[facility] [address] [place], [address] Progress Noteon 06-10-2025 Progress Note This encounter was c reated by mistake Normal [facility] Basic Metabolic Profile (BMP )on 06-09-2025 BUN/CRE 23.4 RATIO High 10-20 [facility] Comment on above: Performed By: #### L 500.2500, L100.0100 ####[facility] [address] [place], [address] Calcium [Mass/Vol] 8.0 mg/dL Normal 7.6-11.0 [facility] Comment on above: Performed By: #### L 500.2500, L100.0100 ####[facility] [address] [place], [address] Chloride [Moles/Vol] 104 mmol/L Normal 98-108 [facility] Comment on above: Performed By: #### L 500.2500, L100.0100 ####[facility] [address] [place], [address] CO2 [Moles/Vol] 26.9 mmol/L Normal 21.0-32.0 [facility] Comment on above: Performed By: #### L 500.2500, L100.0100 ####[facility] [address] [place], [address] Creatinine [Mass/Vol] 1.85 mg/dL High 0.70-1.20 [facility] Comment on above: Performed By: #### L 500.2500, L100.0100 ####[facility] [address] [place], [address] ECRCL 34.16 ml/min Low 50-250 [facility] Comment on above: Performed By: #### L 500.2500, L100.0100 ####[facility] [address] [place], [address] GAP 12 Normal 5-15 [facility] Comment on above: Performed By: #### L 500.2500, L100.0100 ####[facility] [address] [place], [address] GFR/1.73 sq M.predicted among non-blacks MDRD (S/P/Bld) [Vol rate/Area] 31 mL/min/{1.73_m2} Low >60 [facility] Comment on above: Result Comment: mL/m in/1.73m2 CKD-EPI Creatinine Equation (2020) Performed By: #### L 500.2500, L100.0100 ####[facility] [address] [place], [address] Glucose [Mass/Vol] 89 mg/dL Normal 70-99 [facility] Comment on above: Performed By: #### L 500.2500, L100.0100 ####[facility] [address] [place], [address] Potassium [Moles/Vol] 3.9 mmol/L Normal 3.3-5.1 [facility] Comment on above: Performed By: #### L 500.2500, L100.0100 ####[facility] [address] [place], [address] Sodium [Moles/Vol] 143 mmol/L Normal 133-145 [facility] Comment on above: Performed By: #### L 500.2500, L100.0100 ####[facility] [address] [place], [address] Urea nitrogen [Mass/Vol] 43 mg/dL High 4-19 [facility] Comment on above: Performed By: #### L 500.2500, L100.0100 ####[facility] [address] [place], [address] CBC W/Diff, Automatedon 05-28 Anisocytosis Ql (Bld) 1+ Normal [facility] Comment on above: Performed By: #### L 500.2500, L100.0100 ####[facility] [address] [place], [address] HYPOCHROMASIA 1+ Normal [facility] Comment on above: Performed By: #### L 500.2500, L100.0100 ####[facility] [address] [place], [address] Basic Metabolic Profile (BMP )on 06-08-2025 BUN/CRE 25.8 RATIO High 10-20 [facility] Comment on above: Performed By: #### L 500.2500, L100.0100 ####[facility] [address] [place], [address] Calcium [Mass/Vol] 8.0 mg/dL Normal 7.6-11.0 [facility] Comment on above: Performed By: #### L 500.2500, L100.0100 ####[facility] [address] [place], [address] Chloride [Moles/Vol] 105 mmol/L Normal 98-108 [facility] Comment on above: Performed By: #### L 500.2500, L100.0100 ####[facility] [address] [place], [address] CO2 [Moles/Vol] 25.7 mmol/L Normal 21.0-32.0 [facility] Comment on above: Performed By: #### L 500.2500, L100.0100 ####[facility] [address] [place], [address] Creatinine [Mass/Vol] 1.73 mg/dL High 0.70-1.20 [facility] Comment on above: Performed By: #### L 500.2500, L100.0100 ####[facility] [address] [place], [address] ECRCL 35.45 ml/min Low 50-250 [facility] Comment on above: Performed By: #### L 500.2500, L100.0100 ####[facility] [address] [place], [address] GAP 12 Normal 5-15 [facility] Comment on above: Performed By: #### L 500.2500, L100.0100 ####[facility] [address] [place], [address] GFR/1.73 sq M.predicted among non-blacks MDRD (S/P/Bld) [Vol rate/Area] 33 mL/min/{1.73_m2} Low >60 [facility] Comment on above: Result Comment: mL/m in/1.73m2 CKD-EPI Creatinine Equation (2020) Performed By: #### L 500.2500, L100.0100 ####[facility] [address] [place], [address] Glucose [Mass/Vol] 79 mg/dL Normal 70-99 [facility] Comment on above: Performed By: #### L 500.2500, L100.0100 ####[facility] [address] [place], [address] Potassium [Moles/Vol] 4.0 mmol/L Normal 3.3-5.1 [facility] Comment on above: Performed By: #### L 500.2500, L100.0100 ####[facility] [address] [place], [address] Sodium [Moles/Vol] 142 mmol/L Normal 133-145 [facility] Comment on above: Performed By: #### L 500.2500, L100.0100 ####[facility] [address] [place], [address] Urea nitrogen [Mass/Vol] 45 mg/dL High 4-19 [facility] Comment on above: Performed By: #### L 500.2500, L100.0100 ####[facility] [address] [place], [address] CBC W/Diff, Automatedon 05-28 Anisocytosis Ql (Bld) 1+ Normal [facility] Comment on above: Performed By: #### L 500.2500, L100.0100 ####[facility] [address] [place], [address] Basic Metabolic Profile (BMP )on 06-07-2025 BUN/CRE 26.4 RATIO High 10-20 [facility] Comment on above: Performed By: #### L 500.2500, L100.0100 ####[facility] [address] [place], [address] Calcium [Mass/Vol] 8.1 mg/dL Normal 7.6-11.0 [facility] Comment on above: Performed By: #### L 500.2500, L100.0100 ####[facility] [address] [place], [address] Chloride [Moles/Vol] 105 mmol/L Normal 98-108 [facility] Comment on above: Performed By: #### L 500.2500, L100.0100 ####[facility] [address] [place], [address] CO2 [Moles/Vol] 27.5 mmol/L Normal 21.0-32.0 [facility] Comment on above: Performed By: #### L 500.2500, L100.0100 ####[facility] [address] [place], [address] Creatinine [Mass/Vol] 1.74 mg/dL High 0.70-1.20 [facility] Comment on above: Performed By: #### L 500.2500, L100.0100 ####[facility] [address] [place], [address] ECRCL 35.20 ml/min Low 50-250 [facility] Comment on above: Performed By: #### L 500.2500, L100.0100 ####[facility] [address] [place], [address] GAP 11 Normal 5-15 [facility] Comment on above: Performed By: #### L 500.2500, L100.0100 ####[facility] [address] [place], [address] GFR/1.73 sq M.predicted among non-blacks MDRD (S/P/Bld) [Vol rate/Area] 33 mL/min/{1.73_m2} Low >60 [facility] Comment on above: Result Comment: mL/m in/1.73m2 CKD-EPI Creatinine Equation (2020) Performed By: #### L 500.2500, L100.0100 ####[facility] [address] [place], [address] Glucose [Mass/Vol] 85 mg/dL Normal 70-99 [facility] Comment on above: Performed By: #### L 500.2500, L100.0100 ####[facility] [address] [place], [address] Potassium [Moles/Vol] 4.1 mmol/L Normal 3.3-5.1 [facility] Comment on above: Performed By: #### L 500.2500, L100.0100 ####[facility] [address] [place], [address] Sodium [Moles/Vol] 144 mmol/L Normal 133-145 [facility] Comment on above: Performed By: #### L 500.2500, L100.0100 ####[facility] [address] [place], [address] Urea nitrogen [Mass/Vol] 46 mg/dL High 4-19 [facility] Comment on above: Performed By: #### L 500.2500, L100.0100 ####[facility] [address] [place], [address] CBC W/Diff, Automatedon 05-28 PLT EST ADEQUATE Normal ADEQ [facility] Comment on above: Performed By: #### L 500.2500, L100.0100 ####[facility] [address] [place], [address] Anisocytosis Ql (Bld) 2+ Normal [facility] Comment on above: Performed By: #### L 500.2500, L100.0100 ####[facility] [address] [place], [address] OVALOCYTE 1+ Normal [facility] Comment on above: Performed By: #### L 500.2500, L100.0100 ####[facility] [address] [place], [address] Magnesiumon 06-07-2025 Magnesium [Mass/Vol] 2.1 mg/dL Normal 1.5-2.2 [facility] Comment on above: Performed By: #### L 501.5200 ####[facility] [address] [place], [address] Ovalocyte detectionOrdered B y: Hiren Sanders on 06-07-2025 Ovalocytes LM Ql (Bld) 1+ [facility] PAP IG HPV HR APTIMAon 06-07 ADEQ Comment Normal . [facility] Comment on above: Order Comment: Speci men Comment: [id number] Comment: No. of containers..01 ThinPrep Vial Result Comment: Sati sfactory for evaluation. Endocervical and/or squamous metaplasticcells (endocervical component) are present.Areas of partially obscuring inflammatory exudate are present.Partially obscuring thick areas are present. Performed By: #### L 7400.0377 ####[facility] [address] [place], [address] COMM . Normal . [facility] Comment on above: Order Comment: Speci men Comment: [id number] Comment: No. of containers..01 ThinPrep Vial Performed By: #### L 7400.0377 ####[facility] [address] [place], [address] COMMENT Comment Normal . [facility] Comment on above: Order Comment: Speci men Comment: [id number] Comment: No. of containers..01 ThinPrep Vial Result Comment: This liquid based ThinPrep(R) pap test was screened withthe use of an image guided system. Performed By: #### L 7400.0377 ####[facility] [address] [place], [address] DIAG Comment Abnormal . [facility] Comment on above: Order Comment: Speci men Comment: [id number] Comment: No. of containers..01 ThinPrep Vial Result Comment: EPIT HELIAL CELL ABNORMALITY.ATYPICAL GLANDULAR CELLS (AGC). Performed By: #### L 7400.0377 ####[facility] [address] [place], [address] HPV APTIMA, HR Negative Normal Negative [facility] Comment on above: Order Comment: Speci men Comment: [id number] Comment: No. of containers..01 ThinPrep Vial Result Comment: This nucleic acid amplification test detects fourteen high-risk HPV types (16,18,31,33,35,39,45,51,52,56,58,59,66,68)without differentiation.Performed at: - [facility] [id number] Director: Pamelal Negro MD, Phone: [phone] at: = - [facility] [id number] Director: Pamlela Negro MD, Phone: [phone] Performed By: #### L 7400.0377 ####[facility] [address] [place], [place], [id number] PAPSMR Comment Normal . [facility] Comment on above: Order Comment: Speci men Comment: [id number] Comment: No. of containers..01 ThinPrep Vial Result Comment: The Pap smear is a screening test designed to aid in thedetection of premalignant and malignant conditions of theuterine cervix. It is not a diagnostic procedure andshould not be used as the sole means of detecting cervicalcancer. Both false-positive and false-negative reports dooccur. Performed By: #### L 7400.0377 ####[facility] [address] [place], [address] Path.prov.IDC-9 Comment Normal . [facility] Comment on above: Order Comment: Speci men Comment: [id number] Comment: No. of containers..01 ThinPrep Vial Result Comment: [id number] Performed By: #### L 7400.0377 ####[facility] [address] [place], [place], [address] PERFORM Comment Normal . [facility] Comment on above: Order Comment: Speci men Comment: [id number] Comment: No. of containers..01 ThinPrep Vial Result Comment: Gertrudis Webb, Sheriff Detective (ASCP) Performed By: #### L 7400.0377 ####[facility] [address] [place], [address] RECOMM Comment Abnormal . [facility] Comment on above: Order Comment: Speci men Comment: [id number] Comment: No. of containers..01 ThinPrep Vial Result Comment: Sugg est colposcopy and biopsy if indicated. Performed By: #### L 7400.0377 ####[facility] [address] [place], [address] SIGN Comment Normal . [facility] Comment on above: Order Comment: Speci men Comment: [id number] Comment: No. of containers..01 ThinPrep Vial Result Comment: Araceli Adams MD, Pathologist Performed By: #### L 7400.0377 ####[facility] [address] [place], [address] Platelet estimateOrdered By: Hiren Sanders on 06-07-2025 Platelets LM Ql (Bld) ADEQUATE ADEQ [facility] Basic Metabolic Profile (BMP )on 06-06-2025 BUN/CRE 25.3 RATIO High 10-20 [facility] Comment on above: Performed By: #### L 500.2500, L100.0100 ####[facility] [address] [place], [address] Calcium [Mass/Vol] 8.2 mg/dL Normal 7.6-11.0 [facility] Comment on above: Performed By: #### L 500.2500, L100.0100 ####[facility] [address] [place], [address] Chloride [Moles/Vol] 105 mmol/L Normal 98-108 [facility] Comment on above: Performed By: #### L 500.2500, L100.0100 ####[facility] [address] [place], [address] CO2 [Moles/Vol] 26.0 mmol/L Normal 21.0-32.0 [facility] Comment on above: Performed By: #### L 500.2500, L100.0100 ####[facility] [address] [place], [address] Creatinine [Mass/Vol] 1.75 mg/dL High 0.70-1.20 [facility] Comment on above: Performed By: #### L 500.2500, L100.0100 ####[facility] [address] [place], [address] ECRCL 35.81 ml/min Low 50-250 [facility] Comment on above: Performed By: #### L 500.2500, L100.0100 ####[facility] [address] [place], [address] GAP 12 Normal 5-15 [facility] Comment on above: Performed By: #### L 500.2500, L100.0100 ####[facility] [address] [place], [address] GFR/1.73 sq M.predicted among non-blacks MDRD (S/P/Bld) [Vol rate/Area] 33 mL/min/{1.73_m2} Low >60 [facility] Comment on above: Result Comment: mL/m in/1.73m2 CKD-EPI Creatinine Equation (2020) Performed By: #### L 500.2500, L100.0100 ####[facility] [address] [place], [address] Glucose [Mass/Vol] 103 mg/dL High 70-99 [facility] Comment on above: Performed By: #### L 500.2500, L100.0100 ####[facility] [address] [place], [address] Potassium [Moles/Vol] 3.9 mmol/L Normal 3.3-5.1 [facility] Comment on above: Performed By: #### L 500.2500, L100.0100 ####[facility] [address] [place], [address] Sodium [Moles/Vol] 143 mmol/L Normal 133-145 [facility] Comment on above: Performed By: #### L 500.2500, L100.0100 ####[facility] [address] [place], [address] Urea nitrogen [Mass/Vol] 44 mg/dL High 4-19 [facility] Comment on above: Performed By: #### L 500.2500, L100.0100 ####[facility] [address] [place], [address] Blood polychromasia detectio n by light microscopyOrdered By: Hiren Sanders on 06-06-2025 Polychromasia LM Ql (Bld) 1+ [facility] CBC W/Diff, Automatedon 05-28 ACANTHOCYTE 1+ Normal [facility] Comment on above: Performed By: #### L 500.2500, L100.0100 ####[facility] [address] [place], [address] Anisocytosis Ql (Bld) 2+ Normal [facility] Comment on above: Performed By: #### L 500.2500, L100.0100 ####[facility] [address] [place], [address] OVALOCYTE 1+ Normal [facility] Comment on above: Performed By: #### L 500.2500, L100.0100 ####[facility] [address] [place], [address] PLT EST SLT INC Normal ADEQ [facility] Comment on above: Performed By: #### L 500.2500, L100.0100 ####[facility] [address] [place], [address] POLYCHROMASIA 1+ Normal [facility] Comment on above: Performed By: #### L 500.2500, L100.0100 ####[facility] [address] [place], [address] TARGET CELLS 1+ Normal [facility] Comment on above: Performed By: #### L 500.2500, L100.0100 ####[facility] [address] [place], [address] SMEAR COMMENT SCANNED Normal [facility] Comment on above: Performed By: #### L 500.2500, L100.0100 ####[facility] [address] [place], [address] Surgical pathology reportOrd ered By: Leonor Meadows on 06-06-2025 Surgical pathology study [facility] Target cell detectionOrdered By: Hiren Sanders on 06-06-2025 Target cells LM Ql (Bld) 1+ [facility] Basic Metabolic Profile (BMP )on 06-05-2025 BUN/CRE 20.3 RATIO High 10-20 [facility] Comment on above: Performed By: #### L 500.2500, L501.5200, L100.0100 ####[facility] [address] [place], [address] Calcium [Mass/Vol] 7.9 mg/dL Normal 7.6-11.0 [facility] Comment on above: Performed By: #### L 500.2500, L501.5200, L100.0100 ####[facility] [address] [place], [address] Chloride [Moles/Vol] 104 mmol/L Normal 98-108 [facility] Comment on above: Performed By: #### L 500.2500, L501.5200, L100.0100 ####[facility] [address] [place], [address] CO2 [Moles/Vol] 25.5 mmol/L Normal 21.0-32.0 [facility] Comment on above: Performed By: #### L 500.2500, L501.5200, L100.0100 ####[facility] [address] [place], [address] Creatinine [Mass/Vol] 1.74 mg/dL High 0.70-1.20 [facility] Comment on above: Performed By: #### L 500.2500, L501.5200, L100.0100 ####[facility] [address] [place], [address] ECRCL 36.77 ml/min Low 50-250 [facility] Comment on above: Performed By: #### L 500.2500, L501.5200, L100.0100 ####[facility] [address] [place], [address] GAP 13 Normal 5-15 [facility] Comment on above: Performed By: #### L 500.2500, L501.5200, L100.0100 ####[facility] [address] [place], [address] GFR/1.73 sq M.predicted among non-blacks MDRD (S/P/Bld) [Vol rate/Area] 33 mL/min/{1.73_m2} Low >60 [facility] Comment on above: Result Comment: mL/m in/1.73m2 CKD-EPI Creatinine Equation (2020) Performed By: #### L 500.2500, L501.5200, L100.0100 ####[facility] [address] [place], [address] Glucose [Mass/Vol] 94 mg/dL Normal 70-99 [facility] Comment on above: Performed By: #### L 500.2500, L501.5200, L100.0100 ####[facility] [address] [place], [address] Potassium [Moles/Vol] 3.6 mmol/L Normal 3.3-5.1 [facility] Comment on above: Performed By: #### L 500.2500, L501.5200, L100.0100 ####[facility] [address] [place], [address] Sodium [Moles/Vol] 142 mmol/L Normal 133-145 [facility] Comment on above: Performed By: #### L 500.2500, L501.5200, L100.0100 ####[facility] [address] [place], [address] Urea nitrogen [Mass/Vol] 35 mg/dL High 4-19 [facility] Comment on above: Performed By: #### L 500.2500, L501.5200, L100.0100 ####[facility] [address] [place], [address] CBC W/Diff, Automatedon 09-0 Anisocytosis Ql (Bld) 1+ Normal [facility] Comment on above: Performed By: #### L 500.2500, L501.5200, L100.0100 ####[facility] [address] [place], [address] HYPOCHROMASIA RARE Normal [facility] Comment on above: Performed By: #### L 500.2500, L501.5200, L100.0100 ####[facility] [address] [place], [address] OVALOCYTE RARE Normal [facility] Comment on above: Performed By: #### L 500.2500, L501.5200, L100.0100 ####[facility] [address] [place], [address] POLYCHROMASIA RARE Normal [facility] [place] Comment on above: Performed By: #### L 500.2500, L501.5200, L100.0100 ####[facility] [address] [place], [address] SMEAR COMMENT SCANNED Normal [facility] Comment on above: Performed By: #### L 500.2500, L501.5200, L100.0100 ####[facility] [address] [place], [address] CTA Chest W/WO Contraston CTA Chest W/WO Contrast Normal W [facility] L509.7001on 06-05-2025 Procalcitonin 0.29 ng/mL High <=0.10 [facility] Comment on above: Result Comment: Inte rpretation:<0.10-0.25 ng/mL: Antibiotic therapy discouraged. Bacterialinfection unlikely.0.25-0.50 ng/mL: Antibiotic therapy encouraged. Bacterialinfection possible.>0.50 ng/mL: Antibiotic therapy strongly encouraged.Suggestive of presence of bacterial infection.PCT should always be interpreted in the clinical context ofthe patient. Therefore, clinicians should use the PCTresults in conjunction with other laboratory findings andclinical signs of the patient. Performed By: #### L 509.7001, L503.7505 ####[facility] [address] [place], [address] Magnesiumon 06-05-2025 Magnesium [Mass/Vol] 2.1 mg/dL Normal 1.5-2.2 [facility] Comment on above: Performed By: #### L 500.2500, L501.5200, L100.0100 ####[facility] [address] [place], [address] Natriuretic peptide.B prohor courtney N-Terminal [Mass/volume] in Serum or PlasmaOrdered By: Julian Monsivais on 06-05-2025 Natriuretic peptide.B prohormone N-Terminal [Mass/Vol] 49587 pg/mL High <900 [facility] Phosphoruson 06-05-2025 Phosphate [Mass/Vol] 4.3 mg/dL Normal 2.7-4.5 [facility] Comment on above: Performed By: #### L 501.2300 ####[facility] [address] [place], [address] Pro- Brain NATRIURETIC PEPTI Rosalina 06-05-2025 Natriuretic peptide B (Bld) [Mass/Vol] 35708 pg/mL High <=900 [facility] Comment on above: Result Comment: Hear t Failure Unlikely: < 300 pg/mLHeart Failure Likely< 50 Years: > 450 pg/mL50-75 Years: > 900 pg/mL>75 Years: > 1800 pg/mL Performed By: #### L 509.7001, L503.6585 ####[facility] [address] [place], [place], [id number] Procalcitonin [Mass/volume] in Serum or Plasma by ImmunoassayOrdered By: Julian Monsivais on 06-05-2025 Procalcitonin IA [Mass/Vol] 0.29 ng/mL High <0.11 [facility] Surgical Specimen Collection on 06-05-2025 Surg. Spec Cecil SEE PATHOLOGY REPORT Normal [facility] Comment on above: Order Comment: Order Date: 06/01/25Comments: Endometrial specimenReason for Laboratory Test BiospySPECIMEN WAS RECEIVED WEDNESDAY NIGHT ON FORMALIN WITH A NOTESAYING NO ORDERS WERE ENTERED, WAS TAKEN TO HISTOLOGYSATUR MORNING BY JAYDEN; ORDERS WERE THEN PUT INSATURDAY BY Result Comment: Spec imen submitted to Anatomical Pathology Department fortesting. Performed By: #### L 350.1700 ####[facility] [address] [place], [place], [address] Basic Metabolic Profile (BMP )on 06-04-2025 BUN/CRE 18.1 RATIO Normal 10-20 [facility] Comment on above: Performed By: #### L 100.0100, L500.2500 ####[facility] [address] [place], [address] Calcium [Mass/Vol] 8.1 mg/dL Normal 7.6-11.0 [facility] Comment on above: Performed By: #### L 100.0100, L500.2500 ####[facility] [address] [place], [address] Chloride [Moles/Vol] 108 mmol/L Normal 98-108 [facility] Comment on above: Performed By: #### L 100.0100, L500.2500 ####[facility] [address] [place], [address] CO2 [Moles/Vol] 23.5 mmol/L Normal 21.0-32.0 [facility] Comment on above: Performed By: #### L 100.0100, L500.2500 ####[facility] [address] [place], [address] Creatinine [Mass/Vol] 1.49 mg/dL High 0.70-1.20 [facility] Comment on above: Performed By: #### L 100.0100, L500.2500 ####[facility] [address] [place], [address] ECRCL 42.94 ml/min Low 50-250 [facility] Comment on above: Performed By: #### L 100.0100, L500.2500 ####[facility] [address] [place], [address] GAP 11 Normal 5-15 [facility] Comment on above: Performed By: #### L 100.0100, L500.2500 ####[facility] [address] [place], [address] GFR/1.73 sq M.predicted among non-blacks MDRD (S/P/Bld) [Vol rate/Area] 40 mL/min/{1.73_m2} Low >60 [facility] Comment on above: Result Comment: mL/m in/1.73m2 CKD-EPI Creatinine Equation (2020) Performed By: #### L 100.0100, L500.2500 ####[facility] [address] [place], [address] Glucose [Mass/Vol] 84 mg/dL Normal 70-99 [facility] Comment on above: Performed By: #### L 100.0100, L500.2500 ####[facility] [address] [place], [address] Potassium [Moles/Vol] 4.3 mmol/L Normal 3.3-5.1 [facility] Comment on above: Performed By: #### L 100.0100, L500.2500 ####[facility] [address] [place], [address] Sodium [Moles/Vol] 142 mmol/L Normal 133-145 [facility] Comment on above: Performed By: #### L 100.0100, L500.2500 ####[facility] [address] [place], [address] Urea nitrogen [Mass/Vol] 27 mg/dL High 4-19 [facility] Comment on above: Performed By: #### L 100.0100, L500.2500 ####[facility] [address] [place], [address] CBC W/Diff, Automatedon 09-0 OVALOCYTE 1+ Normal [facility] Comment on above: Performed By: #### L 100.0100, L500.2500 ####[facility] [address] [place], [address] PLT MORPH ADEQ Normal [facility] Comment on above: Performed By: #### L 100.0100, L500.2500 ####[facility] [address] [place], [address] Anisocytosis Ql (Bld) 2+ Normal [facility] Comment on above: Performed By: #### L 100.0100, L500.2500 ####[facility] [address] [place], [address] POLYCHROMASIA 1+ Normal [facility] Comment on above: Performed By: #### L 100.0100, L500.2500 ####[facility] [address] [place], [address] TARGET CELLS 1+ Normal [facility] Comment on above: Performed By: #### L 100.0100, L500.2500 ####[facility] [address] [place], [address] Platelet morphologyOrdered B y: Yanet Zhou on 06-04-2025 Platelet morphology finding Nom (Bld) ADEQ [facility] Basic Metabolic Profile (BMP )on 06-03-2025 BUN/CRE 19.8 RATIO Normal 10-20 [facility] Comment on above: Performed By: #### L 501.5200, L100.0100, L500.2500 ####[facility] [address] [place], [address] Calcium [Mass/Vol] 7.8 mg/dL Normal 7.6-11.0 [facility] Comment on above: Performed By: #### L 501.5200, L100.0100, L500.2500 ####[facility] [address] [place], [address] Chloride [Moles/Vol] 109 mmol/L High 98-108 [facility] Comment on above: Performed By: #### L 501.5200, L100.0100, L500.2500 ####[facility] [address] [place], [address] CO2 [Moles/Vol] 21.8 mmol/L Normal 21.0-32.0 [facility] Comment on above: Performed By: #### L 501.5200, L100.0100, L500.2500 ####[facility] [address] [place], [address] Creatinine [Mass/Vol] 1.30 mg/dL High 0.70-1.20 [facility] Comment on above: Performed By: #### L 501.5200, L100.0100, L500.2500 ####[facility] [address] [place], [address] ECRCL 48.78 ml/min Low 50-250 [facility] Comment on above: Performed By: #### L 501.5200, L100.0100, L500.2500 ####[facility] [address] [place], [address] GAP 11 Normal 5-15 [facility] Comment on above: Performed By: #### L 501.5200, L100.0100, L500.2500 ####[facility] [address] [place], [address] GFR/1.73 sq M.predicted among non-blacks MDRD (S/P/Bld) [Vol rate/Area] 47 mL/min/{1.73_m2} Low >60 [facility] Comment on above: Result Comment: mL/m in/1.73m2 CKD-EPI Creatinine Equation (2020) Performed By: #### L 501.5200, L100.0100, L500.2500 ####[facility] [address] [place], [address] Glucose [Mass/Vol] 88 mg/dL Normal 70-99 [facility] Comment on above: Performed By: #### L 501.5200, L100.0100, L500.2500 ####[facility] [address] [place], [address] Potassium [Moles/Vol] 3.8 mmol/L Normal 3.3-5.1 [facility] Comment on above: Performed By: #### L 501.5200, L100.0100, L500.2500 ####[facility] [address] [place], [address] Sodium [Moles/Vol] 142 mmol/L Normal 133-145 [facility] Comment on above: Performed By: #### L 501.5200, L100.0100, L500.2500 ####[facility] [address] [place], [address] Urea nitrogen [Mass/Vol] 26 mg/dL High 4-19 [facility] Comment on above: Performed By: #### L 501.5200, L100.0100, L500.2500 ####[facility] [address] [place], [address] CBC W/Diff, Automatedon 09-0 SMEAR COMMENT SCANNED Normal [facility] Comment on above: Performed By: #### L 501.5200, L100.0100, L500.2500 ####[facility] [address] [place], [address] Cancer Antigen 125on 025 CA 125 87.4 U/mL High 0.0-38.1 [facility] Comment on above: Result Comment: [employer] Electrochemiluminescence Immunoassay(ECLIA)Values obtained with different assay methods or kits cannotbe used interchangeably. Results cannot be interpreted asabsolute evidence of the presence or absence of malignantdisease.Performed at: [facility] [address] [id number] Director: Parag Richard PhD, Phone: [phone] Performed By: #### L 2900.2220, O5442.7022 ####[facility] [address] [place], [address] Carcinoembryonic Antigenon 0 06-03-2025 CEA 1.3 ng/mL Normal 0.0-4.7 [facility] Comment on above: Result Comment: Nons mokers <3.9 Smokers <5.6[employer] Electrochemiluminescence Immunoassay(ECLIA)Values obtained with different assay methods or kitscannot be used interchangeably. Results cannot beinterpreted as absolute evidence of the presence orabsence of malignant disease. Performed By: #### L 3100.2300, L3100.5000 ####[facility] [address] [place], [address] Magnesiumon 06-03-2025 Magnesium [Mass/Vol] 2.5 mg/dL High 1.5-2.2 [facility] Comment on above: Performed By: #### L 501.5200, L100.0100, L500.2500 ####[facility] [address] [place], [address] Basic Metabolic Profile (BMP )on 06-02-2025 BUN/CRE 19.7 RATIO Normal 10-20 [facility] Comment on above: Performed By: #### L 500.2500, L100.0100 ####[facility] [address] [place], [address] Calcium [Mass/Vol] 7.6 mg/dL Normal 7.6-11.0 [facility] Comment on above: Performed By: #### L 500.2500, L100.0100 ####[facility] [address] [place], [address] Chloride [Moles/Vol] 109 mmol/L High 98-108 [facility] Comment on above: Performed By: #### L 500.2500, L100.0100 ####[facility] [address] [place], [address] CO2 [Moles/Vol] 21.7 mmol/L Normal 21.0-32.0 [facility] Comment on above: Performed By: #### L 500.2500, L100.0100 ####[facility] [address] [place], [address] Creatinine [Mass/Vol] 1.28 mg/dL High 0.70-1.20 [facility] Comment on above: Performed By: #### L 500.2500, L100.0100 ####[facility] [address] [place], [address] ECRCL 49.55 ml/min Low 50-250 [facility] Comment on above: Performed By: #### L 500.2500, L100.0100 ####[facility] [address] [place], [address] GAP 10 Normal 5-15 [facility] Comment on above: Performed By: #### L 500.2500, L100.0100 ####[facility] [address] [place], [address] GFR/1.73 sq M.predicted among non-blacks MDRD (S/P/Bld) [Vol rate/Area] 48 mL/min/{1.73_m2} Low >60 [facility] Comment on above: Result Comment: mL/m in/1.73m2 CKD-EPI Creatinine Equation (2020) Performed By: #### L 500.2500, L100.0100 ####[facility] [address] [place], [address] Glucose [Mass/Vol] 100 mg/dL High 70-99 [facility] Comment on above: Performed By: #### L 500.2500, L100.0100 ####[facility] [address] [place], [address] Potassium [Moles/Vol] 3.4 mmol/L Normal 3.3-5.1 [facility] Comment on above: Performed By: #### L 500.2500, L100.0100 ####[facility] [address] [place], [address] Sodium [Moles/Vol] 141 mmol/L Normal 133-145 [facility] Comment on above: Performed By: #### L 500.2500, L100.0100 ####[facility] [address] [place], [address] Urea nitrogen [Mass/Vol] 25 mg/dL High 4-19 [facility] Comment on above: Performed By: #### L 500.2500, L100.0100 ####[facility] [address] [place], [address] CBC W/Diff, Automatedon 09-0 SMEAR COMMENT SCANNED Normal [facility] Comment on above: Performed By: #### L 500.2500, L100.0100 ####[facility] [address] [place], [address] CXR for Line Placementon CXR for Line Placement Normal [facility] Consultation - Cardiologyon 06-02-2025 Consultation - Cardiology Normal [facility] Magnesiumon 06-02-2025 Magnesium [Mass/Vol] 1.8 mg/dL Normal 1.5-2.2 [facility] Comment on above: Order Comment: SAG1 4 J Performed By: #### L 501.5200 ####[facility] [address] [place], [address] Serum or plasma carcinoembry onic antigen measurement (mass/volume)Ordered By: Eloisa More on 06-02-2025 Carcinoembryonic Ag [Mass/Vol] 1.3 ng/mL 0.0-4.7 [facility] Surgery Specimen Level Stanley 06-02-2025 Surgery Specimen Level IV Normal [facility] Comment on above: Performed By: #### P SUIV ####[facility] [address] [place], [address] Basic Metabolic Profile (BMP )on 06-01-2025 BUN/CRE 16.5 RATIO Normal 10-20 [facility] Comment on above: Performed By: #### L 100.0100, L500.2500 ####[facility] [address] [place], [address] Calcium [Mass/Vol] 7.3 mg/dL Low 7.6-11.0 [facility] Comment on above: Performed By: #### L 100.0100, L500.2500 ####[facility] [address] [place], [address] Chloride [Moles/Vol] 112 mmol/L High 98-108 [facility] Comment on above: Performed By: #### L 100.0100, L500.2500 ####[facility] [address] [place], [address] CO2 [Moles/Vol] 20.2 mmol/L Low 21.0-32.0 [facility] Comment on above: Performed By: #### L 100.0100, L500.2500 ####[facility] [address] [place], [address] Creatinine [Mass/Vol] 1.34 mg/dL High 0.70-1.20 [facility] Comment on above: Performed By: #### L 100.0100, L500.2500 ####[facility] [address] [place], [address] ECRCL 48.22 ml/min Low 50-250 [facility] Comment on above: Performed By: #### L 100.0100, L500.2500 ####[facility] [address] [place], [address] GAP 9 Normal 5-15 [facility] Comment on above: Performed By: #### L 100.0100, L500.2500 ####[facility] [address] [place], [address] GFR/1.73 sq M.predicted among non-blacks MDRD (S/P/Bld) [Vol rate/Area] 45 mL/min/{1.73_m2} Low >60 [facility] Comment on above: Result Comment: mL/m in/1.73m2 CKD-EPI Creatinine Equation (2020) Performed By: #### L 100.0100, L500.2500 ####[facility] [address] [place], [address] Glucose [Mass/Vol] 108 mg/dL High 70-99 [facility] Comment on above: Performed By: #### L 100.0100, L500.2500 ####[facility] [address] [place], [address] Potassium [Moles/Vol] 3.7 mmol/L Normal 3.3-5.1 [facility] Comment on above: Performed By: #### L 100.0100, L500.2500 ####[facility] [address] [place], [address] Sodium [Moles/Vol] 141 mmol/L Normal 133-145 [facility] Comment on above: Performed By: #### L 100.0100, L500.2500 ####[facility] [address] [place], [address] Urea nitrogen [Mass/Vol] 22 mg/dL High 4-19 [facility] Comment on above: Performed By: #### L 100.0100, L500.2500 ####[facility] [address] [place], [address] CBC W/Diff, Automatedon Anisocytosis Ql (Bld) 1+ Normal [facility] Comment on above: Performed By: #### L 100.0100, L500.2500 ####[facility] [address] [place], [address] Cervical or vagninal specime n microscopic examination by cytology stain (reported asOrdered By: Eloisa More on 06-01-2025 Cytology report Cyto stain Doc (Cvx/Vag) Comment . [facility] Consultation - OB/GYNon Consultation - CLOTHING MAN Normal [facility] Detection in cervical specim en of any of human papilloma virus (HPV) 16, 18, 31, 33,Ordered By: Eloisa More on 06-01-2025 HPV 16+18+31+33+35+39+45+51 +52+56+58+59+66+68 DNA Probe+sig amp Ql (Cvx) Negative Negative [facility] Laboratory - CytologyOrdered By: Eloisa More on 06-01-2025 Sheriff Detective Cyto stain Nom (Cvx/Vag) [ID] Comment . [facility] Pathologist Cyto stain Nom (Cvx/Vag) [ID] Comment . [facility] Recommended follow-up Cyto stain Nom (Cvx/Vag) Comment High . [facility] Laboratory - Miscellaneous t estsOrdered By: Eloias More on 06-01-2025 Service comment (Unsp spec) [Interp] . . [facility] Magnesiumon 06-01-2025 Magnesium [Mass/Vol] 2.0 mg/dL Normal 1.5-2.2 [facility] Comment on above: Performed By: #### L 501.5200 ####[facility] [address] [place], [place], [id number] No Panel InformationOrdered By: Eloisa More on 06-01-2025 Pathology report final diagnosis Narrative Comment . [facility] Comment . [facility] Transvaginal Non-on 06-01-2025 Transvaginal Non- Normal [facility] Basic Metabolic Profile (BMP )on 05-31-2025 BUN/CRE 18.6 RATIO Normal 10-20 [facility] Comment on above: Performed By: #### L 100.0100, L500.2500 ####[facility] [address] [place], [place], [id number] Calcium [Mass/Vol] 7.3 mg/dL Low 7.6-11.0 [facility] Comment on above: Performed By: #### L 100.0100, L500.2500 ####[facility] [address] [place], [address] Chloride [Moles/Vol] 110 mmol/L High 98-108 [facility] Comment on above: Performed By: #### L 100.0100, L500.2500 ####[facility] [address] [place], [address] CO2 [Moles/Vol] 21.4 mmol/L Normal 21.0-32.0 [facility] Comment on above: Performed By: #### L 100.0100, L500.2500 ####[facility] [address] [place], [address] Creatinine [Mass/Vol] 1.11 mg/dL Normal 0.70-1.20 [facility] Comment on above: Performed By: #### L 100.0100, L500.2500 ####[facility] [address] [place], [address] ECRCL 55.86 ml/min Normal 50-250 [facility] Comment on above: Performed By: #### L 100.0100, L500.2500 ####[facility] [address] [place], [address] GAP 9 Normal 5-15 [facility] Comment on above: Performed By: #### L 100.0100, L500.2500 ####[facility] [address] [place], [address] GFR/1.73 sq M.predicted among non-blacks MDRD (S/P/Bld) [Vol rate/Area] 57 mL/min/{1.73_m2} Low >60 [facility] Comment on above: Result Comment: mL/m in/1.73m2 CKD-EPI Creatinine Equation (2020) Performed By: #### L 100.0100, L500.2500 ####[facility] [address] [place], [address] Glucose [Mass/Vol] 92 mg/dL Normal 70-99 [facility] Comment on above: Performed By: #### L 100.0100, L500.2500 ####[facility] [address] [place], [address] Potassium [Moles/Vol] 3.7 mmol/L Normal 3.3-5.1 [facility] Comment on above: Performed By: #### L 100.0100, L500.2500 ####[facility] [address] [place], [address] Sodium [Moles/Vol] 140 mmol/L Normal 133-145 [facility] Comment on above: Performed By: #### L 100.0100, L500.2500 ####[facility] [address] [place], [address] Urea nitrogen [Mass/Vol] 21 mg/dL High 4-19 [facility] Comment on above: Performed By: #### L 100.0100, L500.2500 ####[facility] [address] [place], [address] CBC W/Diff, Automatedon 09-0 Anisocytosis Ql (Bld) 1+ Normal [facility] Comment on above: Performed By: #### L 100.0100, L500.2500 ####[facility] [address] [place], [address] Basic Metabolic Profile (BMP )on 05-30-2025 BUN/CRE 19.0 RATIO Normal 10-20 [facility] Comment on above: Performed By: #### L 100.0100, L500.2500 ####[facility] [address] [place], [address] Calcium [Mass/Vol] 7.5 mg/dL Low 7.6-11.0 [facility] Comment on above: Performed By: #### L 100.0100, L500.2500 ####[facility] [address] [place], [address] Chloride [Moles/Vol] 108 mmol/L Normal 98-108 [facility] Comment on above: Performed By: #### L 100.0100, L500.2500 ####[facility] [address] [place], [address] CO2 [Moles/Vol] 23.3 mmol/L Normal 21.0-32.0 [facility] Comment on above: Performed By: #### L 100.0100, L500.2500 ####[facility] [address] [place], [address] Creatinine [Mass/Vol] 1.12 mg/dL Normal 0.70-1.20 [facility] Comment on above: Performed By: #### L 100.0100, L500.2500 ####[facility] [address] [place], [address] ECRCL 55.36 ml/min Normal 50-250 [facility] Comment on above: Performed By: #### L 100.0100, L500.2500 ####[facility] [address] [place], [address] GAP 10 Normal 5-15 [facility] Comment on above: Performed By: #### L 100.0100, L500.2500 ####[facility] [address] [place], [address] GFR/1.73 sq M.predicted among non-blacks MDRD (S/P/Bld) [Vol rate/Area] 56 mL/min/{1.73_m2} Low >60 [facility] Comment on above: Result Comment: mL/m in/1.73m2 CKD-EPI Creatinine Equation (2020) Performed By: #### L 100.0100, L500.2500 ####[facility] [address] [place], [address] Glucose [Mass/Vol] 75 mg/dL Normal 70-99 [facility] Comment on above: Performed By: #### L 100.0100, L500.2500 ####[facility] [address] [place], [address] Potassium [Moles/Vol] 3.0 mmol/L Low 3.3-5.1 [facility] Comment on above: Performed By: #### L 100.0100, L500.2500 ####[facility] [address] [place], [address] Sodium [Moles/Vol] 141 mmol/L Normal 133-145 [facility] Comment on above: Performed By: #### L 100.0100, L500.2500 ####[facility] [address] [place], [address] Urea nitrogen [Mass/Vol] 21 mg/dL High 4-19 [facility] Comment on above: Performed By: #### L 100.0100, L500.2500 ####[facility] [address] [place], [address] CBC W/Diff, Automatedon 09-0 SMEAR COMMENT COMMENT Normal [facility] Comment on above: Result Comment: SLID E SCANNED - DIMORPHIC RBC POPULATION SEEN ON SLIDEREVIEW. Performed By: #### L 100.0100, L500.2500 ####[facility] [address] [place], [address] MR/PN.GIon 05-30-2025 MR/PN.GI Normal [facility] Magnesiumon 05-30-2025 Magnesium [Mass/Vol] 2.0 mg/dL Normal 1.5-2.2 [facility] Comment on above: Performed By: #### L 501.5200 ####[facility] [address] [place], [address] Basic Metabolic Profile (BMP )on 05-29-2025 BUN/CRE 19.0 RATIO Normal 10-20 [facility] Comment on above: Order Comment: PATIE NT IN SWALLOW STUDY, AMPARO RN SAID SHE WILL CALL WHENPATIENT RETURNS TO FLOOR 1438 TAMSTUTZcheck after IV KCl is done infusion Performed By: #### L 501.5200, L500.2500 ####[facility] [address] [place], [address] Calcium [Mass/Vol] 8.0 mg/dL Normal 7.6-11.0 [facility] Comment on above: Order Comment: PATIE NT IN SWALLOW STUDY, AMPARO RN SAID SHE WILL CALL WHENPATIENT RETURNS TO FLOOR 1438 TAMSTUTZcheck after IV KCl is done infusion Performed By: #### L 501.5200, L500.2500 ####[facility] [address] [place], [address] Chloride [Moles/Vol] 110 mmol/L High 98-108 [facility] Comment on above: Order Comment: PATIE NT IN SWALLOW STUDY, AMPARO RN SAID SHE WILL CALL WHENPATIENT RETURNS TO FLOOR 1438 TAMSTUTZcheck after IV KCl is done infusion Performed By: #### L 501.5200, L500.2500 ####[facility] [address] [place], [address] CO2 [Moles/Vol] 22.3 mmol/L Normal 21.0-32.0 [facility] Comment on above: Order Comment: PATIE NT IN SWALLOW STUDY, AMPARO RN SAID SHE WILL CALL WHENPATIENT RETURNS TO FLOOR 1438 TAMSTUTZcheck after IV KCl is done infusion Performed By: #### L 501.5200, L500.2500 ####[facility] [address] [place], [address] Creatinine [Mass/Vol] 1.10 mg/dL Normal 0.70-1.20 [facility] Comment on above: Order Comment: PATIE NT IN SWALLOW STUDY, AMPARO RN SAID SHE WILL CALL WHENPATIENT RETURNS TO FLOOR 1438 TAMSTUTZcheck after IV KCl is done infusion Performed By: #### L 501.5200, L500.2500 ####[facility] [address] [place], [address] ECRCL 56.74 ml/min Normal 50-250 [facility] Comment on above: Order Comment: PREETHI NT IN SWALLOW STUDY, AMPARO RN SAID SHE WILL CALL WHENPATIENT RETURNS TO FLOOR 1438 TAMSTUTZcheck after IV KCl is done infusion Performed By: #### L 501.5200, L500.2500 ####[facility] [address] [place], [address] GAP 11 Normal 5-15 [facility] Comment on above: Order Comment: PREETHI NT IN SWALLOW STUDY, AMPARO RN SAID SHE WILL CALL WHENPATIENT RETURNS TO FLOOR 1438 TAMSTUTZcheck after IV KCl is done infusion Performed By: #### L 501.5200, L500.2500 ####[facility] [address] [place], [address] GFR/1.73 sq M.predicted among non-blacks MDRD (S/P/Bld) [Vol rate/Area] 57 mL/min/{1.73_m2} Low >60 [facility] Comment on above: Order Comment: PREETHI NT IN SWALLOW STUDY, AMPARO RN SAID SHE WILL CALL WHENPATIENT RETURNS TO FLOOR 1438 TAMSTUTZcheck after IV KCl is done infusion Result Comment: mL/m in/1.73m2 CKD-EPI Creatinine Equation (2020) Performed By: #### L 501.5200, L500.2500 ####[facility] [address] [place], [address] Glucose [Mass/Vol] 90 mg/dL Normal 70-99 [facility] Comment on above: Order Comment: PREETHI NT IN SWALLOW STUDY, AMPARO RN SAID SHE WILL CALL WHENPATIENT RETURNS TO FLOOR 1438 TAMSTUTZcheck after IV KCl is done infusion Performed By: #### L 501.5200, L500.2500 ####[facility] [address] [place], [address] Potassium [Moles/Vol] 3.8 mmol/L Normal 3.3-5.1 [facility] Comment on above: Order Comment: PREETHI NT IN SWALLOW STUDY, AMPARO RN SAID SHE WILL CALL WHENPATIENT RETURNS TO FLOOR 1438 TAMSTUTZcheck after IV KCl is done infusion Result Comment: Hemo lysis present, Results??could be affected.?? Performed By: #### L 501.5200, L500.2500 ####[facility] [address] [place], [address] Sodium [Moles/Vol] 144 mmol/L Normal 133-145 [facility] Comment on above: Order Comment: PREETHI NT IN SWALLOW STUDY, AMPARO RN SAID SHE WILL CALL WHENPATIENT RETURNS TO FLOOR 1438 TAMSTUTZcheck after IV KCl is done infusion Performed By: #### L 501.5200, L500.2500 ####[facility] [address] [place], [address] Urea nitrogen [Mass/Vol] 21 mg/dL High 4-19 [facility] Comment on above: Order Comment: PREETHI NT IN SWALLOW STUDY, AMPARO RN SAID SHE WILL CALL WHENPATIENT RETURNS TO FLOOR 1438 TAMSTUTZcheck after IV KCl is done infusion Performed By: #### L 501.5200, L500.2500 ####[facility] [address] [place], [address] BUN/CRE 18.5 RATIO Normal 10-20 [facility] Comment on above: Performed By: #### L 100.0100, L500.2500 ####[facility] [address] [place], [address] Calcium [Mass/Vol] 8.0 mg/dL Normal 7.6-11.0 [facility] Comment on above: Performed By: #### L 100.0100, L500.2500 ####[facility] [address] [place], [address] Chloride [Moles/Vol] 112 mmol/L High 98-108 [facility] Comment on above: Performed By: #### L 100.0100, L500.2500 ####[facility] [address] [place], [address] CO2 [Moles/Vol] 25.7 mmol/L Normal 21.0-32.0 [facility] Comment on above: Performed By: #### L 100.0100, L500.2500 ####[facility] [address] [place], [address] Creatinine [Mass/Vol] 1.24 mg/dL High 0.70-1.20 [facility] Comment on above: Performed By: #### L 100.0100, L500.2500 ####[facility] [address] [place], [address] ECRCL 50.33 ml/min Normal 50-250 [facility] Comment on above: Performed By: #### L 100.0100, L500.2500 ####[facility] [address] [place], [address] GAP 10 Normal 5-15 [facility] Comment on above: Performed By: #### L 100.0100, L500.2500 ####[facility] [address] [place], [address] GFR/1.73 sq M.predicted among non-blacks MDRD (S/P/Bld) [Vol rate/Area] 50 mL/min/{1.73_m2} Low >60 [facility] Comment on above: Result Comment: mL/m in/1.73m2 CKD-EPI Creatinine Equation (2020) Performed By: #### L 100.0100, L500.2500 ####[facility] [address] [place], [address] Glucose [Mass/Vol] 94 mg/dL Normal 70-99 [facility] Comment on above: Performed By: #### L 100.0100, L500.2500 ####[facility] [address] [place], [address] Potassium [Moles/Vol] 2.8 mmol/L Low 3.3-5.1 [facility] Comment on above: Performed By: #### L 100.0100, L500.2500 ####[facility] [address] [place], [address] Sodium [Moles/Vol] 147 mmol/L High 133-145 [facility] Comment on above: Performed By: #### L 100.0100, L500.2500 ####[facility] [address] [place], [address] Urea nitrogen [Mass/Vol] 23 mg/dL High 4-19 [facility] Comment on above: Performed By: #### L 100.0100, L500.2500 ####[facility] [address] [place], [address] CBC W/Diff, Automatedon 09-0 ACANTHOCYTE RARE Normal [facility] Comment on above: Performed By: #### L 100.0100, L500.2500 ####[facility] [address] [place], [address] Anisocytosis Ql (Bld) 3+ Normal [facility] Comment on above: Performed By: #### L 100.0100, L500.2500 ####[facility] [address] [place], [address] MICROCYTIC 1+ Normal [facility] Comment on above: Performed By: #### L 100.0100, L500.2500 ####[facility] [address] [place], [address] PLT EST ADEQUATE Normal ADEQ [facility] Comment on above: Performed By: #### L 100.0100, L500.2500 ####[facility] [address] [place], [address] PLT MORPH LARGE Normal [facility] Comment on above: Performed By: #### L 100.0100, L500.2500 ####[facility] [address] [place], [address] POLYCHROMASIA 1+ Normal [facility] Comment on above: Performed By: #### L 100.0100, L500.2500 ####[facility] [address] [place], [address] SMEAR COMMENT SCANNED Normal [facility] Comment on above: Performed By: #### L 100.0100, L500.2500 ####[facility] [address] [place], [address] TARGET CELLS 1+ Normal [facility] Comment on above: Performed By: #### L 100.0100, L500.2500 ####[facility] [address] [place], [address] TEAR DROP RARE Normal [facility] Comment on above: Performed By: #### L 100.0100, L500.2500 ####[facility] [address] [place], [address] CDIFF (PCR)on 05-29-2025 CDIFF Is the patient recei ving laxatives? N New/unexplained onset of 3 or more stools in past 24 hrs? Y Pending 027 027 NAP1-B1 Presumptive Negative *for epidemiolologic???use C. Diff PCR Negative- No toxigenic C. Diff Detected Normal [facility] Comment on above: Performed By: #### M 100.6796, M100.637 ####[facility] [address] [place], [address] Clostridium difficile detect ion by polymerase chain reactionOrdered By: Yanet Zhou on 05-29-2025 C. difficile DNA HESHAM+probe Ql (Unsp spec) [facility] ENTERIC PATHOGEN PANEL STOOL on 05-29-2025 EP PANEL Normal [facility] Comment on above: Performed By: #### M 100.6796, M100.637 ####[facility] [address] [place], [address] Magnesiumon 05-29-2025 Magnesium [Mass/Vol] 2.1 mg/dL Normal 1.5-2.2 [facility] Comment on above: Order Comment: PREETHI NT IN SWALLOW STUDY, AMPARO RN SAID SHE WILL CALL WHENPATIENT RETURNS TO FLOOR 1438 TAMSTUTZ Performed By: #### L 501.5200, L500.2500 ####[facility] [address] [place], [address] Magnesium [Mass/Vol] 2.0 mg/dL Normal 1.5-2.2 [facility] Comment on above: Order Comment: Comme nts: may add to ED labs Performed By: #### L 501.5200 ####[facility] [address] [place], [address] Modified Barium Swallow Stud yon 05-29-2025 Modified Barium Swallow Study Normal [facility] Teardrop cell detectionOrder ed By: Yanet Zhou on 05-29-2025 Dacrocytes LM Ql (Bld) RARE [facility] Basic Metabolic Profile (BMP )on 05-28-2025 BUN/CRE 20.9 RATIO High 10-20 [facility] Comment on above: Performed By: #### L 500.2500 ####[facility] [address] [place], [address] Calcium [Mass/Vol] 8.0 mg/dL Normal 7.6-11.0 [facility] Comment on above: Performed By: #### L 500.2500 ####[facility] [address] [place], [address] Chloride [Moles/Vol] 119 mmol/L High 98-108 [facility] Comment on above: Performed By: #### L 500.2500 ####[facility] [address] [place], [address] CO2 [Moles/Vol] 23.4 mmol/L Normal 21.0-32.0 [facility] Comment on above: Performed By: #### L 500.2500 ####[facility] [address] [place], [address] Creatinine [Mass/Vol] 1.30 mg/dL High 0.70-1.20 [facility] Comment on above: Performed By: #### L 500.2500 ####[facility] [address] [place], [address] ECRCL 47.69 ml/min Low 50-250 [facility] Comment on above: Performed By: #### L 500.2500 ####[facility] [address] [place], [address] GAP 10 Normal 5-15 [facility] Comment on above: Performed By: #### L 500.2500 ####[facility] [address] [place], [address] GFR/1.73 sq M.predicted among non-blacks MDRD (S/P/Bld) [Vol rate/Area] 47 mL/min/{1.73_m2} Low >60 [facility] Comment on above: Result Comment: mL/m in/1.73m2 CKD-EPI Creatinine Equation (2020) Performed By: #### L 500.2500 ####[facility] [address] [place], [address] Glucose [Mass/Vol] 96 mg/dL Normal 70-99 [facility] Comment on above: Performed By: #### L 500.2500 ####[facility] [address] [place], [address] Potassium [Moles/Vol] 3.5 mmol/L Normal 3.3-5.1 [facility] Comment on above: Performed By: #### L 500.2500 ####[facility] [address] [place], [address] Sodium [Moles/Vol] 152 mmol/L High 133-145 [facility] Comment on above: Performed By: #### L 500.2500 ####[facility] [address] [place], [address] Urea nitrogen [Mass/Vol] 27 mg/dL High 4-19 [facility] Comment on above: Performed By: #### L 500.2500 ####[facility] [address] [place], [address] BUN Normal 4-19 [facility] Comment on above: Result Comment: This specimen has been REJECTED due to Laboratory criteria:Hemolyzed.NO ONE TO NOTIFY OF need of recollection.05/28/25537 Apolinar R Springer Performed By: #### L 100.0100, L500.2500 ####[facility] [address] [facility] [address] BUN/CRE Normal 10-20 [facility] Comment on above: Result Comment: This specimen has been REJECTED due to Laboratory criteria:Hemolyzed.NO ONE TO NOTIFY OF need of recollection.05/28/25537 Apolinar R Springer Performed By: #### L 100.0100, L500.2500 ####[facility] [address] [place], [address] Calcium Normal 7.6-11.0 [facility] Comment on above: Result Comment: This specimen has been REJECTED due to Laboratory criteria:Hemolyzed.NO ONE TO NOTIFY OF need of recollection.05/28/25537 Apolinar R Springer Performed By: #### L 100.0100, L500.2500 ####[facility] [address] [place], [address] CL Normal 98-108 [facility] Comment on above: Result Comment: This specimen has been REJECTED due to Laboratory criteria:Hemolyzed.NO ONE TO NOTIFY OF need of recollection.05/28/25537 Apolinar R Springer Performed By: #### L 100.0100, L500.2500 ####[facility] [address] [place], [address] CO2 Normal 21.0-32.0 [facility] Comment on above: Result Comment: This specimen has been REJECTED due to Laboratory criteria:Hemolyzed.NO ONE TO NOTIFY OF need of recollection.05/28/25537 Apolinar R Springer Performed By: #### L 100.0100, L500.2500 ####[facility] [address] [place], [address] CREAT,SERUM Normal 0.70-1.20 [facility] Comment on above: Result Comment: This specimen has been REJECTED due to Laboratory criteria:Hemolyzed.NO ONE TO NOTIFY OF need of recollection.05/28/25537 Apolinar R Springer Performed By: #### L 100.0100, L500.2500 ####[facility] [address] [place], [address] eGFR Normal >60 [facility] Comment on above: Result Comment: This specimen has been REJECTED due to Laboratory criteria:Hemolyzed.NO ONE TO NOTIFY OF need of recollection.05/28/25537 Apolinar R Springer Performed By: #### L 100.0100, L500.2500 ####[facility] [address] [place], [address] GAP Normal 5-15 [facility] Comment on above: Result Comment: This specimen has been REJECTED due to Laboratory criteria:Hemolyzed.NO ONE TO NOTIFY OF need of recollection.05/28/25537 Apolinar R Springer Performed By: #### L 100.0100, L500.2500 ####[facility] [address] [place], [address] GLU Normal 70-99 [facility] Comment on above: Result Comment: This specimen has been REJECTED due to Laboratory criteria:Hemolyzed.NO ONE TO NOTIFY OF need of recollection.05/28/25537 Apolinar R Springer Performed By: #### L 100.0100, L500.2500 ####[facility] [address] [place], [address] Potassium Normal 3.3-5.1 [facility] Comment on above: Result Comment: This specimen has been REJECTED due to Laboratory criteria:Hemolyzed.NO ONE TO NOTIFY OF need of recollection.05/28/25537 Apolinar R Springer Performed By: #### L 100.0100, L500.2500 ####[facility] [address] [place], [address] Basic Metabolic Profile (BMP) Normal 133-145 [facility] Comment on above: Result Comment: This specimen has been REJECTED due to Laboratory criteria:Hemolyzed.NO ONE TO NOTIFY OF need of recollection.05/28/25537 Apolinar R Springer Performed By: #### L 100.0100, L500.2500 ####[facility] [address] [place], [address] CBC W/Diff, Automatedon 09-0 ACANTHOCYTE 1+ Normal [facility] Comment on above: Performed By: #### L 100.0100, L500.2500 ####[facility] [address] [place], [address] Anisocytosis Ql (Bld) 3+ Normal [facility] Comment on above: Performed By: #### L 100.0100, L500.2500 ####[facility] [address] [place], [address] CRENATED RBC 1+ Normal [facility] Comment on above: Performed By: #### L 100.0100, L500.2500 ####[facility] [address] [place], [address] HYPOCHROMASIA 1+ Normal [facility] Comment on above: Performed By: #### L 100.0100, L500.2500 ####[facility] [address] [place], [address] MACROCYTOSIS 1+ Normal [facility] Comment on above: Performed By: #### L 100.0100, L500.2500 ####[facility] [address] [place], [address] MICROCYTIC 1+ Normal [facility] Comment on above: Performed By: #### L 100.0100, L500.2500 ####[facility] [address] [place], [address] OVALOCYTE 1+ Normal [facility] Comment on above: Performed By: #### L 100.0100, L500.2500 ####[facility] [address] [place], [address] PLT EST ADEQUATE Normal ADEQ [facility] Comment on above: Performed By: #### L 100.0100, L500.2500 ####[facility] [address] [place], [address] PLT MORPH CLUMPED Normal [facility] Comment on above: Performed By: #### L 100.0100, L500.2500 ####[facility] [address] [place], [address] POLYCHROMASIA 1+ Normal [facility] Comment on above: Performed By: #### L 100.0100, L500.2500 ####[facility] [address] [place], [address] SMEAR COMMENT SCANNED Normal [facility] Comment on above: Performed By: #### L 100.0100, L500.2500 ####[facility] [address] [place], [address] Chest 1 View (Portable)on Chest 1 View (Portable) Normal [facility] Crenated erythrocyte detecti on by light microscopyOrdered By: Matt Acevedo on 05-28-2025 [place] cells LM Ql (Bld) 1+ [facility] Macrocytes detectionOrdered By: Matt Acevedo on 05-28-2025 Macrocytes Ql (Bld) 1+ [facility] Magnesiumon 05-28-2025 Magnesium [Mass/Vol] 2.3 mg/dL High 1.5-2.2 [facility] Comment on above: Performed By: #### L 501.5200 ####[facility] [address] [place], [address] Pro- Brain NATRIURETIC PEPTI Rosalina 05-28-2025 Natriuretic peptide B (Bld) [Mass/Vol] 49180 pg/mL High <=900 [facility] Comment on above: Result Comment: Hear t Failure Unlikely: < 300 pg/mLHeart Failure Likely< 50 Years: > 450 pg/mL50-75 Years: > 900 pg/mL>75 Years: > 1800 pg/mL Performed By: #### L 503.9855 ####[facility] [address] [place], [address] Basic Metabolic Profile (BMP )on 05-27-2025 BUN/CRE 22.3 RATIO High 10-20 [facility] Comment on above: Performed By: #### L 500.2500, L100.0100 ####[facility] [address] [place], [address] Calcium [Mass/Vol] 7.9 mg/dL Normal 7.6-11.0 [facility] Comment on above: Performed By: #### L 500.2500, L100.0100 ####[facility] [address] [place], [address] Chloride [Moles/Vol] 120 mmol/L High 98-108 [facility] Comment on above: Performed By: #### L 500.2500, L100.0100 ####[facility] [address] [place], [address] CO2 [Moles/Vol] 21.8 mmol/L Normal 21.0-32.0 [facility] Comment on above: Performed By: #### L 500.2500, L100.0100 ####[facility] [address] [place], [address] Creatinine [Mass/Vol] 1.50 mg/dL High 0.70-1.20 [facility] Comment on above: Performed By: #### L 500.2500, L100.0100 ####[facility] [address] [place], [address] ECRCL 42.11 ml/min Low 50-250 [facility] Comment on above: Performed By: #### L 500.2500, L100.0100 ####[facility] [address] [place], [address] GAP 13 Normal 5-15 [facility] Comment on above: Performed By: #### L 500.2500, L100.0100 ####[facility] [address] [place], [address] GFR/1.73 sq M.predicted among non-blacks MDRD (S/P/Bld) [Vol rate/Area] 39 mL/min/{1.73_m2} Low >60 [facility] Comment on above: Result Comment: mL/m in/1.73m2 CKD-EPI Creatinine Equation (2020) Performed By: #### L 500.2500, L100.0100 ####[facility] [address] [place], [address] Glucose [Mass/Vol] 73 mg/dL Normal 70-99 [facility] Comment on above: Performed By: #### L 500.2500, L100.0100 ####[facility] [address] [place], [address] Potassium [Moles/Vol] 3.3 mmol/L Normal 3.3-5.1 [facility] Comment on above: Performed By: #### L 500.2500, L100.0100 ####[facility] [address] [place], [address] Sodium [Moles/Vol] 155 mmol/L High 133-145 [facility] Comment on above: Performed By: #### L 500.2500, L100.0100 ####[facility] [address] [place], [address] Urea nitrogen [Mass/Vol] 34 mg/dL High 4-19 [facility] Comment on above: Performed By: #### L 500.2500, L100.0100 ####[facility] [address] [place], [address] CBC W/Diff, Automatedon - Anisocytosis Ql (Bld) 2+ Normal [facility] Comment on above: Performed By: #### L 500.2500, L100.0100 ####[facility] [address] [place], [address] Basic Metabolic Profile (BMP )on 05-26-2025 BUN/CRE 22.4 RATIO High 10-20 [facility] Comment on above: Performed By: #### L 500.2500, L100.0100 ####[facility] [address] [place], [address] Calcium [Mass/Vol] 7.7 mg/dL Normal 7.6-11.0 [facility] Comment on above: Performed By: #### L 500.2500, L100.0100 ####[facility] [address] [place], [address] Chloride [Moles/Vol] 119 mmol/L High 98-108 [facility] Comment on above: Performed By: #### L 500.2500, L100.0100 ####[facility] [address] [place], [address] CO2 [Moles/Vol] 21.3 mmol/L Normal 21.0-32.0 [facility] Comment on above: Performed By: #### L 500.2500, L100.0100 ####[facility] [address] [place], [address] Creatinine [Mass/Vol] 1.54 mg/dL High 0.70-1.20 [facility] Comment on above: Performed By: #### L 500.2500, L100.0100 ####[facility] [address] [place], [address] ECRCL 41.33 ml/min Low 50-250 [facility] Comment on above: Performed By: #### L 500.2500, L100.0100 ####[facility] [address] [place], [address] GAP 11 Normal 5-15 [facility] Comment on above: Performed By: #### L 500.2500, L100.0100 ####[facility] [address] [place], [address] GFR/1.73 sq M.predicted among non-blacks MDRD (S/P/Bld) [Vol rate/Area] 38 mL/min/{1.73_m2} Low >60 [facility] Comment on above: Result Comment: mL/m in/1.73m2 CKD-EPI Creatinine Equation (2020) Performed By: #### L 500.2500, L100.0100 ####[facility] [address] [place], [address] Glucose [Mass/Vol] 79 mg/dL Normal 70-99 [facility] Comment on above: Performed By: #### L 500.2500, L100.0100 ####[facility] [address] [place], [address] Potassium [Moles/Vol] 3.6 mmol/L Normal 3.3-5.1 [facility] Comment on above: Performed By: #### L 500.2500, L100.0100 ####[facility] [address] [place], [address] Sodium [Moles/Vol] 151 mmol/L High 133-145 [facility] Comment on above: Performed By: #### L 500.2500, L100.0100 ####[facility] [address] [place], [address] Urea nitrogen [Mass/Vol] 35 mg/dL High 4-19 [facility] Comment on above: Performed By: #### L 500.2500, L100.0100 ####[facility] [address] [place], [address] Blood stomatocytes detection by light microscopyOrdered By: Matt Acevedo on 05-26-2025 Stomatocytes LM Ql (Bld) RARE [facility] CBC W/Diff, Automatedon 04-29 STOMATOCYTE RARE Normal [facility] Comment on above: Performed By: #### L 500.2500, L100.0100 ####[facility] [address] [place], [address] POLYCHROMASIA 1+ Normal [facility] Comment on above: Performed By: #### L 500.2500, L100.0100 ####[facility] [address] [place], [address] Anisocytosis Ql (Bld) 2+ Normal [facility] Comment on above: Performed By: #### L 500.2500, L100.0100 ####[facility] [address] [place], [address] MICROCYTIC 1+ Normal [facility] Comment on above: Performed By: #### L 500.2500, L100.0100 ####[facility] [address] [place], [address] OVALOCYTE RARE Normal [facility] Comment on above: Performed By: #### L 500.2500, L100.0100 ####[facility] [address] [place], [address] SMEAR COMMENT SCANNED Normal [facility] Comment on above: Performed By: #### L 500.2500, L100.0100 ####[facility] [address] [place], [address] Culture, Blood (WB)on 2024 CUB No growth in 5 days. Normal [facility] Comment on above: Performed By: #### M 200.1000 ####[facility] [address] [place], [address] Trough vancomycin levelOrder ed By: Juvenal Roblero on 05-26-2025 Vancomycin trough [Mass/Vol] 17.4 ug/mL High 5.0-15.0 [facility] Vancomycin, Trough Levelon 0 05-26-2025 VANCO, TROUGH 17.4 ug/mL High 5.0-15.0 [facility] Comment on above: Order Comment: Comme nts: Trough to be drawn 30 mins prior to scheduled [id number] Result Comment: Leonardo mmended goal trough ranges are generally 10-15 mcg/mlfor less severe/complicated infections such as cellulitisor UTI and 15-20 mcg/ml for more severe/complicatedinfections such as bacteremia/sepsis, osteomyelitis,pneumonia or meningitis. Goal trough ranges should takeinto account indication, patient-specific factors andorganism MIGUEL.VANCOMYCIN STANDARED DRUG THERAPY TROUGH LEVEL: 5.0 - 15.0 mg/LVANCOMYCIN HIGH INTENSITY THERAPY TROUGH LEVEL: 15.0 - 20.0 mg/LHigh Intensity therapy recommended for serious lifethreatening infections include:- Kwbbmqjohq-Jetsywdigfhh-Jrtdfyzrj (Ventilator/Healtcare Associated)-SepsisPLEASE CONTACT PHARMACY SERVICES (#4160) FOR INTERPRETATIONOF RESULTS. Performed By: #### L 501.8820 ####[facility] [address] [place], [address] Basic Metabolic Profile (BMP )on 05-25-2025 BUN/CRE 20.5 RATIO High 10-20 [facility] Comment on above: Performed By: #### L 100.0100, L500.2500 ####[facility] [address] [place], [address] Calcium [Mass/Vol] 7.6 mg/dL Normal 7.6-11.0 [facility] Comment on above: Performed By: #### L 100.0100, L500.2500 ####[facility] [address] [place], [address] Chloride [Moles/Vol] 116 mmol/L High 98-108 [facility] Comment on above: Performed By: #### L 100.0100, L500.2500 ####[facility] [address] [place], [address] CO2 [Moles/Vol] 21.7 mmol/L Normal 21.0-32.0 [facility] Comment on above: Performed By: #### L 100.0100, L500.2500 ####[facility] [address] [place], [address] Creatinine [Mass/Vol] 1.95 mg/dL High 0.70-1.20 [facility] Comment on above: Performed By: #### L 100.0100, L500.2500 ####[facility] [address] [place], [address] ECRCL 32.33 ml/min Low 50-250 [facility] Comment on above: Performed By: #### L 100.0100, L500.2500 ####[facility] [address] [place], [address] GAP 11 Normal 5-15 [facility] Comment on above: Performed By: #### L 100.0100, L500.2500 ####[facility] [address] [place], [address] GFR/1.73 sq M.predicted among non-blacks MDRD (S/P/Bld) [Vol rate/Area] 29 mL/min/{1.73_m2} Low >60 [facility] Comment on above: Result Comment: mL/m in/1.73m2 CKD-EPI Creatinine Equation (2020) Performed By: #### L 100.0100, L500.2500 ####[facility] [address] [place], [address] Glucose [Mass/Vol] 130 mg/dL High 70-99 [facility] Comment on above: Performed By: #### L 100.0100, L500.2500 ####[facility] [address] [place], [address] Potassium [Moles/Vol] 3.5 mmol/L Normal 3.3-5.1 [facility] Comment on above: Performed By: #### L 100.0100, L500.2500 ####[facility] [address] [place], [address] Sodium [Moles/Vol] 149 mmol/L High 133-145 [facility] Comment on above: Performed By: #### L 100.0100, L500.2500 ####[facility] [address] [place], [address] Urea nitrogen [Mass/Vol] 40 mg/dL High 4-19 [facility] Comment on above: Performed By: #### L 100.0100, L500.2500 ####[facility] [address] [place], [address] Bilirubin, totalOrdered By: Juvenal Roblero on 05-25-2025 Bilirubin [Mass/Vol] 1.23 mg/dL 0.00-1.30 [facility] CBC W/Diff, Automatedon 08- HYPOCHROMASIA 1+ Normal [facility] Comment on above: Performed By: #### L 500.4050, L501.2300, L100.0100, L501.5200 ####[facility] [address] [place], [address] POLYCHROMASIA 1+ Normal [facility] Comment on above: Performed By: #### L 500.4050, L501.2300, L100.0100, L501.5200 ####[facility] [address] [place], [address] Anisocytosis Ql (Bld) 2+ Normal [facility] Comment on above: Performed By: #### L 500.4050, L501.2300, L100.0100, L501.5200 ####[facility] [address] [place], [address] PLT EST ADEQUATE Normal ADEQ [facility] Comment on above: Performed By: #### L 500.4050, L501.2300, L100.0100, L501.5200 ####[facility] [address] [place], [address] SMEAR COMMENT SCANNED Normal [facility] Comment on above: Performed By: #### L 500.4050, L501.2300, L100.0100, L501.5200 ####[facility] [address] [place], [address] Anisocytosis Ql (Bld) 1+ Normal [facility] Comment on above: Performed By: #### L 100.0100, L500.2500 ####[facility] [address] [place], [address] SMEAR COMMENT SCANNED Normal [facility] Comment on above: Result Comment: ANIS OCYTOSIS Performed By: #### L 100.0100, L500.2500 ####[facility] [address] [place], [address] MICROCYTIC RARE Normal [facility] Comment on above: Performed By: #### L 100.0100, L500.2500 ####[facility] [address] [place], [address] BASO STIPPLING RARE Normal [facility] Comment on above: Performed By: #### L 100.0100, L500.2500 ####[facility] [address] [place], [address] POLYCHROMASIA 1+ Normal [facility] Comment on above: Performed By: #### L 100.0100, L500.2500 ####[facility] [address] [place], [address] Comprehensive Metabolic Prof [facility] 05-25-2025 Albumin [Mass/Vol] 2.4 g/dL Low 3.4-4.8 [facility] Comment on above: Performed By: #### L 500.4050, L501.2300, L100.0100, L501.5200 ####[facility] [address] [place], [address] Albumin/Globulin [Mass ratio] 0.8 {ratio} Low 0.9-2.4 [facility] Comment on above: Performed By: #### L 500.4050, L501.2300, L100.0100, L501.5200 ####[facility] [address] [place], [address] ALK PHOS 52 U/L Normal 35-104 [facility] Comment on above: Performed By: #### L 500.4050, L501.2300, L100.0100, L501.5200 ####[facility] [address] [place], [address] ALT [Catalytic activity/Vol] 15 U/L Normal <=34 [facility] Comment on above: Performed By: #### L 500.4050, L501.2300, L100.0100, L501.5200 ####[facility] [address] [place], [address] AST [Catalytic activity/Vol] 14 U/L Normal <=31 [facility] Comment on above: Performed By: #### L 500.4050, L501.2300, L100.0100, L501.5200 ####[facility] [address] [place], [address] Bilirubin [Mass/Vol] 1.23 mg/dL Normal 0.00-1.30 [facility] Comment on above: Performed By: #### L 500.4050, L501.2300, L100.0100, L501.5200 ####[facility] [address] [place], [address] BUN/CRE 21.6 RATIO High 10-20 [facility] Comment on above: Performed By: #### L 500.4050, L501.2300, L100.0100, L501.5200 ####[facility] [address] [place], [address] Calcium [Mass/Vol] 7.6 mg/dL Normal 7.6-11.0 [facility] Comment on above: Performed By: #### L 500.4050, L501.2300, L100.0100, L501.5200 ####[facility] [address] [place], [address] Chloride [Moles/Vol] 119 mmol/L High 98-108 [facility] Comment on above: Performed By: #### L 500.4050, L501.2300, L100.0100, L501.5200 ####[facility] [address] [place], [address] CO2 [Moles/Vol] 21.4 mmol/L Normal 21.0-32.0 [facility] Comment on above: Performed By: #### L 500.4050, L501.2300, L100.0100, L501.5200 ####[facility] [address] [place], [address] Creatinine [Mass/Vol] 1.69 mg/dL High 0.70-1.20 [facility] Comment on above: Performed By: #### L 500.4050, L501.2300, L100.0100, L501.5200 ####[facility] [address] [place], [address] ECRCL 37.66 ml/min Low 50-250 [facility] - [place] Comment on above: Performed By: #### L 500.4050, L501.2300, L100.0100, L501.5200 ####[facility] [place] [address] [place], [address] GAP 11 Normal 5-15 [facility] [place] Comment on above: Performed By: #### L 500.4050, L501.2300, L100.0100, L501.5200 ####[facility] [place] [address] [place], [address] GFR/1.73 sq M.predicted among non-blacks MDRD (S/P/Bld) [Vol rate/Area] 34 mL/min/{1.73_m2} Low >60 [facility] [place] Comment on above: Result Comment: mL/m in/1.73m2 CKD-EPI Creatinine Equation (2020) Performed By: #### L 500.4050, L501.2300, L100.0100, L501.5200 ####[facility] [place] [address] [place], [address] Globulin (S) [Mass/Vol] 3.2 g/dL Normal 2.2-4.2 [facility] Comment on above: Performed By: #### L 500.4050, L501.2300, L100.0100, L501.5200 ####[facility] [place] [address] [place], [address] Glucose [Mass/Vol] 91 mg/dL Normal 70-99 [facility] Comment on above: Performed By: #### L 500.4050, L501.2300, L100.0100, L501.5200 ####[facility] [place] [address] [place], [address] Potassium [Moles/Vol] 3.6 mmol/L Normal 3.3-5.1 [facility] Comment on above: Performed By: #### L 500.4050, L501.2300, L100.0100, L501.5200 ####[facility] [place] [address] [place], [address] Sodium [Moles/Vol] 151 mmol/L High 133-145 [facility] Comment on above: Performed By: #### L 500.4050, L501.2300, L100.0100, L501.5200 ####[facility] [place] [address] [place], [address] T PROT 5.6 g/dL Low 5.9-8.4 [facility] [place] Comment on above: Performed By: #### L 500.4050, L501.2300, L100.0100, L501.5200 ####[facility] [place] [address] [place], [address] Urea nitrogen [Mass/Vol] 37 mg/dL High 4-19 [facility] [place] Comment on above: Performed By: #### L 500.4050, L501.2300, L100.0100, L501.5200 ####[facility] [place] [address] [place], [address] Erythrocyte basophilic stipp ling detectionOrdered By: Matt Acevedo on 05-25-2025 Basophilic stippling LM Ql (Bld) RARE [facility] [place] Magnesiumon 05-25-2025 Magnesium [Mass/Vol] 2.4 mg/dL High 1.5-2.2 [facility] Comment on above: Performed By: #### L 500.4050, L501.2300, L100.0100, L501.5200 ####[facility] [place] [address] [place], [place], [address] No Panel InformationOrdered By: Juvenal Roblero on 05-25-2025 14 U/L <32 [facility] [place] Phosphoruson 05-25-2025 Phosphate [Mass/Vol] 3.1 mg/dL Normal 2.7-4.5 [facility] Comment on above: Performed By: #### L 500.4050, L501.2300, L100.0100, L501.5200 ####[facility] [place] [address] [facility] [place], [place], [id number] Serum globulin measurementOr dered By: Juvenal Roblero on 05-25-2025 Globulin (S) [Mass/Vol] 3.2 g/dL 2.2-4.2 [facility] Serum or plasma alanine sosa otransferase (ALT) measurementOrdered By: Juvenal Roblero on 05-25-2025 ALT [Catalytic activity/Vol] 15 U/L <35 [facility] [place] Serum or plasma albumin suresh urement (mass/volume)Ordered By: Juvenal Roblero on 05-25-2025 Albumin [Mass/Vol] 2.4 g/dL Low 3.4-4.8 [facility] Serum or plasma albumin/glob ulin mass ratioOrdered By: Juvenal Roblero on 05-25-2025 Albumin/Globulin [Mass ratio] 0.8 {ratio} Low 0.9-2.4 [facility] [place] Serum or plasma alkaline [place] sphatase measurementOrdered By: Juvenal Roblero on 05-25-2025 ALP [Catalytic activity/Vol] 52 U/L 35-104 [facility] [place] Total proteinOrdered By: Buddy amaya Osbaldo on 05-25-2025 Protein [Mass/Vol] 5.6 g/dL Low 5.9-8.4 [facility] Assessment of wrist artery p atency prior to arterial punctureOrdered By: Matt Acevedo on 05-24-2025 Arterial patency Wrist artery --pre arterial puncture Positive [facility] [place] Basic Metabolic Profile (BMP )on 05-24-2025 BUN/CRE 19.7 RATIO Normal 10-20 [facility] [place] Comment on above: Performed By: #### L 100.0100, L500.2500 ####[facility] [place] [address] [place], [address] Calcium [Mass/Vol] 7.7 mg/dL Normal 7.6-11.0 [facility] Comment on above: Performed By: #### L 100.0100, L500.2500 ####[facility] [place] [address] [place], [address] Chloride [Moles/Vol] 117 mmol/L High 98-108 [facility] Comment on above: Performed By: #### L 100.0100, L500.2500 ####[facility] [place] [address] [place], [address] CO2 [Moles/Vol] 19.5 mmol/L Low 21.0-32.0 [facility] [place] Comment on above: Performed By: #### L 100.0100, L500.2500 ####[facility] [place] [address] [place], [address] Creatinine [Mass/Vol] 2.01 mg/dL High 0.70-1.20 [facility] Comment on above: Performed By: #### L 100.0100, L500.2500 ####[facility] [place] [address] [place], [address] ECRCL 31.05 ml/min Low 50-250 [facility] [place] Comment on above: Performed By: #### L 100.0100, L500.2500 ####[facility] [place] [address] [place], [address] GAP 12 Normal 5-15 [facility] [place] Comment on above: Performed By: #### L 100.0100, L500.2500 ####[facility] [place] [address] [place], [address] GFR/1.73 sq M.predicted among non-blacks MDRD (S/P/Bld) [Vol rate/Area] 28 mL/min/{1.73_m2} Low >60 [facility] [place] Comment on above: Result Comment: mL/m in/1.73m2 CKD-EPI Creatinine Equation (2020) Performed By: #### L 100.0100, L500.2500 ####[facility] [place] [address] [place], [address] Glucose [Mass/Vol] 105 mg/dL High 70-99 [facility] Comment on above: Performed By: #### L 100.0100, L500.2500 ####[facility] [place] [address] [place], [address] Potassium [Moles/Vol] 3.3 mmol/L Normal 3.3-5.1 [facility] Comment on above: Performed By: #### L 100.0100, L500.2500 ####[facility] [place] [address] [place], [address] Sodium [Moles/Vol] 148 mmol/L High 133-145 [facility] Comment on above: Performed By: #### L 100.0100, L500.2500 ####[facility] [place] [address] [place], [address] Urea nitrogen [Mass/Vol] 40 mg/dL High 4-19 [facility] [place] Comment on above: Performed By: #### L 100.0100, L500.2500 ####[facility] [place] [address] [place], [address] Blood Gases by [facility] 025 KISHAN TEST Positive Normal [facility] [place] Comment on above: Performed By: #### L 8999.08 ####[facility] [place] [address] [place], [address] Base excess Calc (Bld) [Moles/Vol] -2 mmol/L Normal -2 to +2 [facility] Comment on above: Performed By: #### L 8999.0800 ####[facility] [place] [address] [place], [address] Blood Gas Type ART Normal [facility] [place] Comment on above: Performed By: #### L 8999.08 ####[facility] [place] [address] [place], [address] CO2 [Moles/Vol] 25 mmol/L Normal [facility] Comment on above: Performed By: #### L 8999.08 ####[facility] [place] [address] [place], [address] FI02 40.0 Normal [facility] Comment on above: Performed By: #### L 8999.08 ####[facility] [place] [address] [place], [address] HCO3 (Bld) [Moles/Vol] 23.6 mmol/L Normal 22-26 [facility] Comment on above: Performed By: #### L 8999.08 ####[facility] [place] [address] [place], [address] Mode AC Normal [facility] Comment on above: Performed By: #### L 8999.08 ####[facility] [place] [address] [place], [address] O2 Delivery Dev Adult Vent Normal [facility] [place] Comment on above: Performed By: #### L 8999.0800 ####[facility] [place] [address] [place], [address] pCO2 40.1 mmHg Normal 35-45 [facility] [place] Comment on above: Performed By: #### L 9000.0800 ####[facility] [place] [address] [place], [address] PEEP 5 Normal [facility] Comment on above: Performed By: #### L 9000.0800 ####[facility] [place] [address] [place], [address] pH (Bld) 7.38 [pH] Normal 7.35-7.45 [facility] [place] Comment on above: Performed By: #### L 9000.0800 ####[facility] [place] [address] [place], [address] PO2 60 mmHG Low 75-100 [facility] [place] Comment on above: Performed By: #### L 9000.0800 ####[facility] [place] [address] [place], [address] RR 12 Normal [facility] [place] Comment on above: Performed By: #### L 9000.0800 ####[facility] [place] [address] [place], [address] SITE L Radial Normal [facility] [place] Comment on above: Performed By: #### L 9000.0800 ####[facility] [place] [address] [place], [address] SO2 90 Low 95-99 [facility] [place] Comment on above: Performed By: #### L 9000.0800 ####[facility] [place] [address] [place], [address] Vt 450.0 mL Normal [facility] Comment on above: Performed By: #### L 9000.0800 ####[facility] [place] [address] [place], [address] Blood base excess determinat ionOrdered By: Matt Acevedo on 05-24-2025 Base excess Calc (BldV) [Moles/Vol] -2 mmol/L -2-2 [facility] [place] Blood bicarbonate measuremen tOrdered By: Matt Acevedo on 05-24-2025 HCO3 (Bld) [Moles/Vol] 23.6 mmol/L [facility] CBC W/Diff, Automatedon 04-28 JUAN FRANCISCO CELLS 1+ Normal [facility] [place] Comment on above: Performed By: #### L 100.0100, L500.2500 ####[facility] [place] [address] [place], [address] Anisocytosis Ql (Bld) 2+ Normal [facility] Comment on above: Performed By: #### L 100.0100, L500.2500 ####[facility] [place] [address] [place], [address] HYPOCHROMASIA 1+ Normal [facility] Comment on above: Performed By: #### L 100.0100, L500.2500 ####[facility] [place] [address] [place], [address] MICROCYTIC 2+ Normal [facility] Comment on above: Performed By: #### L 100.0100, L500.2500 ####[facility] [place] [address] [place], [address] POLYCHROMASIA 1+ Normal [facility] Comment on above: Performed By: #### L 100.0100, L500.2500 ####[facility] [place] [address] [place], [address] SMEAR COMMENT SCANNED Normal [facility] [place] Comment on above: Performed By: #### L 100.0100, L500.2500 ####[facility] [place] [address] [place], [address] Chest 1 View (Portable)on Chest 1 View (Portable) Normal [facility] Crenated erythrocyte detecti on by light microscopyOrdered By: Matt Acevedo on 05-24-2025 Juan Francisco cells LM Ql (Bld) 1+ [facility] Magnesiumon 05-24-2025 Magnesium [Mass/Vol] 2.5 mg/dL High 1.5-2.2 [facility] Comment on above: Performed By: #### L 501.5200, L501.2300 ####[facility] [place] [address] [place], [address] Measurement, pHOrdered By: Carl Acevedo on 05-24-2025 pH (Unsp spec) 7.38 [pH] 7.35-7.45 [facility] [place] No Panel InformationOrdered By: Matt Acevedo on 05-24-2025 ART [facility] L Radial [facility] AC [facility] Adult Vent [facility] 450.0 mL [facility] 12 [facility] 5 [facility] Phosphoruson 05-24-2025 Phosphate [Mass/Vol] 4.5 mg/dL Normal 2.7-4.5 [facility] Comment on above: Performed By: #### L 501.5200, L501.2300 ####[facility] [place] [address] [place], [place], [id number] Respiratory Cultureon 2024 RESPC Microorganism Spec Cult Normal [facility] Comment on above: Performed By: #### M 100.2000, M100.2400 ####[facility] [place] [address] [place], [address] Serum or plasma vancomycin m easurement (mass/volume)Ordered By: Julian Monsivais on 05-24-2025 Vancomycin [Mass/Vol] 16.9 ug/mL High 0.0-15.0 [facility] Total carbon dioxide measure mentOrdered By: Matt Acevedo on 05-24-2025 CO2 [Moles/Vol] 25 mmol/L [facility] [place] Vancomycin, Random Levelon 0 05-24-2025 VANCO, RANDOM 16.9 ug/mL High 0.0-15.0 [facility] Comment on above: Result Comment: VANC OMYCIN STANDARD DRUG THERAPY: CRITICAL VALUE IS > 15.0 mg/LVANCOMYCIN HIGH INTENSITY THERAPY: CRITICAL VALUE IS > 20.0 mg/LPLEASE CONTACT PHARMACY SERVICES (#0760) FOR INTERPRETATIONOF RESULTS. THIS RESULT DOES NOT REPRESENT A PEAK OR TROUGHLEVEL FOR THIS DRUG. Performed By: #### L 501.8850 ####[facility] [place] [address] [place], [address] Basic Metabolic Profile (BMP )on 05-23-2025 BUN/CRE 19.5 RATIO Normal 10-20 [facility] [place] Comment on above: Performed By: #### L 501.5200, L500.2500 ####[facility] [place] [address] [place], [address] Calcium [Mass/Vol] 7.7 mg/dL Normal 7.6-11.0 [facility] Comment on above: Performed By: #### L 501.5200, L500.2500 ####[facility] [place] [address] [place], [address] Chloride [Moles/Vol] 116 mmol/L High 98-108 [facility] Comment on above: Performed By: #### L 501.5200, L500.2500 ####[facility] [place] [address] [place], [address] CO2 [Moles/Vol] 18.3 mmol/L Low 21.0-32.0 [facility] [place] Comment on above: Performed By: #### L 501.5200, L500.2500 ####[facility] [place] [address] [place], [address] Creatinine [Mass/Vol] 2.01 mg/dL High 0.70-1.20 [facility] Comment on above: Performed By: #### L 501.5200, L500.2500 ####[facility] [place] [address] [place], [address] ECRCL 31.05 ml/min Low 50-250 [facility] Comment on above: Performed By: #### L 501.5200, L500.2500 ####[facility] [place] [address] [place], [address] GAP 13 Normal 5-15 [facility] Comment on above: Performed By: #### L 501.5200, L500.2500 ####[facility] [place] [address] [place], [address] GFR/1.73 sq M.predicted among non-blacks MDRD (S/P/Bld) [Vol rate/Area] 28 mL/min/{1.73_m2} Low >60 [facility] [place] Comment on above: Result Comment: mL/m in/1.73m2 CKD-EPI Creatinine Equation (2020) Performed By: #### L 501.5200, L500.2500 ####[facility] [place] [address] [place], [address] Glucose [Mass/Vol] 77 mg/dL Normal 70-99 [facility] Comment on above: Performed By: #### L 501.5200, L500.2500 ####[facility] [place] [address] [place], [address] Potassium [Moles/Vol] 3.6 mmol/L Normal 3.3-5.1 [facility] Comment on above: Performed By: #### L 501.5200, L500.2500 ####[facility] [place] [address] [place], [address] Sodium [Moles/Vol] 147 mmol/L High 133-145 [facility] Comment on above: Performed By: #### L 501.5200, L500.2500 ####[facility] [place] [address] [place], [address] Urea nitrogen [Mass/Vol] 39 mg/dL High 4-19 [facility] [place] Comment on above: Performed By: #### L 501.5200, L500.2500 ####[facility] [place] [address] [place], [address] BUN/CRE 21.0 RATIO High 10-20 [facility] [place] Comment on above: Performed By: #### L 100.0100, L500.2500 ####[facility] [place] [address] [place], [address] Calcium [Mass/Vol] 7.6 mg/dL Normal 7.6-11.0 [facility] Comment on above: Performed By: #### L 100.0100, L500.2500 ####[facility] [place] [address] [place], [address] Chloride [Moles/Vol] 118 mmol/L High 98-108 [facility] Comment on above: Performed By: #### L 100.0100, L500.2500 ####[facility] [place] [address] [place], [address] CO2 [Moles/Vol] 17.8 mmol/L Low 21.0-32.0 [facility] Comment on above: Performed By: #### L 100.0100, L500.2500 ####[facility] [place] [address] [place], [address] Creatinine [Mass/Vol] 1.98 mg/dL High 0.70-1.20 [facility] Comment on above: Performed By: #### L 100.0100, L500.2500 ####[facility] [place] [address] [place], [address] ECRCL 31.52 ml/min Low 50-250 [facility] Comment on above: Performed By: #### L 100.0100, L500.2500 ####[facility] [place] [address] [place], [address] GAP 10 Normal 5-15 [facility] Comment on above: Performed By: #### L 100.0100, L500.2500 ####[facility] [place] [address] [place], [address] GFR/1.73 sq M.predicted among non-blacks MDRD (S/P/Bld) [Vol rate/Area] 28 mL/min/{1.73_m2} Low >60 [facility] [place] Comment on above: Result Comment: mL/m in/1.73m2 CKD-EPI Creatinine Equation (2020) Performed By: #### L 100.0100, L500.2500 ####[facility] [place] [address] [place], [address] Glucose [Mass/Vol] 88 mg/dL Normal 70-99 [facility] Comment on above: Performed By: #### L 100.0100, L500.2500 ####[facility] [place] [address] [place], [address] Potassium [Moles/Vol] 3.8 mmol/L Normal 3.3-5.1 [facility] Comment on above: Performed By: #### L 100.0100, L500.2500 ####[facility] [place] [address] [place], [address] Sodium [Moles/Vol] 146 mmol/L High 133-145 [facility] Comment on above: Performed By: #### L 100.0100, L500.2500 ####[facility] [place] [address] [place], [address] Urea nitrogen [Mass/Vol] 42 mg/dL High 4-19 [facility] [place] Comment on above: Performed By: #### L 100.0100, L500.2500 ####[facility] [place] [address] [place], [address] Blood Gases by [facility] 025 KISHAN TEST Positive Normal [facility] Comment on above: Performed By: #### L 9000.0800 ####[facility] [place] [address] [place], [address] Base excess Calc (Bld) [Moles/Vol] -4 mmol/L Low -2 to +2 [facility] Comment on above: Performed By: #### L 0.08 ####[facility] [place] [address] [place], [address] Blood Gas Type ART Normal [facility] Comment on above: Performed By: #### L 8999.08 ####[facility] [place] [address] [place], [address] CO2 [Moles/Vol] 20 mmol/L Normal [facility] Comment on above: Performed By: #### L 0.0800 ####[facility] [place] [address] [place], [address] FI02 45.0 Normal [facility] [place] Comment on above: Performed By: #### L 8999.08 ####[facility] [place] [address] [place], [address] HCO3 (Bld) [Moles/Vol] 19.3 mmol/L Low 22-26 [facility] Comment on above: Performed By: #### L 8999.0800 ####[facility] [place] [address] [place], [address] Mode AC Normal [facility] Comment on above: Performed By: #### L 8999.08 ####[facility] [place] [address] [place], [address] O2 Delivery Dev Adult Vent Normal [facility] Comment on above: Performed By: #### L 8999.0800 ####[facility] [facility] [address] [place], [address] pCO2 26.6 mmHg Low 35-45 [facility] Comment on above: Performed By: #### L 0.0800 ####[facility] [address] [place], [address] PEEP 5 Normal [facility] Comment on above: Performed By: #### L 0.0800 ####[facility] [address] [place], [address] pH (Bld) 7.47 [pH] High 7.35-7.45 [facility] Comment on above: Performed By: #### L 0.0800 ####[facility] [address] [place], [address] PO2 67 mmHG Low 75-100 [facility] Comment on above: Performed By: #### L 0.0800 ####[facility] [address] [place], [address] RR 16 Normal [facility] Comment on above: Performed By: #### L 0.0800 ####[facility] [address] [place], [address] SITE L Radial Normal [facility] Comment on above: Performed By: #### L 0.0800 ####[facility] [address] [place], [address] SO2 95 Normal 95-99 [facility] Comment on above: Performed By: #### L 0.0800 ####[facility] [address] [place], [address] Vt 450.0 mL Normal [facility] Comment on above: Performed By: #### L 9000.0800 ####[facility] [address] [place], [address] CBC W/Diff, Automatedon - CBC W Auto Differential panel (Bld) Normal [facility] Comment on above: Performed By: #### L 100.0100, L500.2500 ####[facility] [address] [place], [address] Chest 1 View (Portable)on Chest 1 View (Portable) Normal [facility] EGD Reporton 05-23-2025 EGD Report Normal [facility] MR/OP.PROVATon 05-23-2025 MR/OP.PROVAT Normal [facility] Magnesiumon 05-23-2025 Magnesium [Mass/Vol] 2.6 mg/dL High 1.5-2.2 [facility] Comment on above: Performed By: #### L 501.5200, L500.2500 ####[facility] [address] [place], [address] Magnesium [Mass/Vol] 2.5 mg/dL High 1.5-2.2 [facility] Comment on above: Performed By: #### L 501.5200 ####[facility] [address] [place], [address] Urine Cultureon 05-23-2025 URC Normal [facility] Comment on above: Performed By: #### L 400.0001, M100.2200 ####[facility] [address] [place], [address] Vancomycin, Trough Levelon 0 05-23-2025 VANCO, TROUGH 20.8 ug/mL High 5.0-15.0 [facility] Comment on above: Order Comment: Comme nts: Trough to be drawn 30 mins prior to scheduled dose Result Comment: Leonardo mmended goal trough ranges are generally 10-15 mcg/mlfor less severe/complicated infections such as cellulitisor UTI and 15-20 mcg/ml for more severe/complicatedinfections such as bacteremia/sepsis, osteomyelitis,pneumonia or meningitis. Goal trough ranges should takeinto account indication, patient-specific factors andorganism MIGUEL.VANCOMYCIN STANDARED DRUG THERAPY TROUGH LEVEL: 5.0 - 15.0 mg/LVANCOMYCIN HIGH INTENSITY THERAPY TROUGH LEVEL: 15.0 - 20.0 mg/LHigh Intensity therapy recommended for serious lifethreatening infections include:- Dwglqgsasr-Thuxfhugxddc-Aicqdqmgj (Ventilator/Healtcare Associated)-SepsisPLEASE CONTACT PHARMACY SERVICES (#4360) FOR INTERPRETATIONOF RESULTS. Performed By: #### L 501.8820 ####[facility] [address] [place], [address] Basic Metabolic Profile (BMP )on 05-22-2025 BUN/CRE 24.2 RATIO High 10-20 [facility] Comment on above: Performed By: #### L 100.0100, L500.2500 ####[facility] [address] [place], [address] Calcium [Mass/Vol] 7.4 mg/dL Low 7.6-11.0 [facility] Comment on above: Performed By: #### L 100.0100, L500.2500 ####[facility] [address] [place], [address] Chloride [Moles/Vol] 114 mmol/L High 98-108 [facility] Comment on above: Performed By: #### L 100.0100, L500.2500 ####[facility] [address] [place], [address] CO2 [Moles/Vol] 18.0 mmol/L Low 21.0-32.0 [facility] Comment on above: Performed By: #### L 100.0100, L500.2500 ####[facility] [address] [place], [address] Creatinine [Mass/Vol] 2.23 mg/dL High 0.70-1.20 [facility] Comment on above: Performed By: #### L 100.0100, L500.2500 ####[facility] [address] [place], [address] ECRCL 27.77 ml/min Low 50-250 [facility] Comment on above: Performed By: #### L 100.0100, L500.2500 ####[facility] [address] [place], [address] GAP 10 Normal 5-15 [facility] Comment on above: Performed By: #### L 100.0100, L500.2500 ####[facility] [address] [place], [address] GFR/1.73 sq M.predicted among non-blacks MDRD (S/P/Bld) [Vol rate/Area] 24 mL/min/{1.73_m2} Low >60 [facility] Comment on above: Result Comment: mL/m in/1.73m2 CKD-EPI Creatinine Equation (2020) Performed By: #### L 100.0100, L500.2500 ####[facility] [address] [place], [address] Glucose [Mass/Vol] 94 mg/dL Normal 70-99 [facility] Comment on above: Performed By: #### L 100.0100, L500.2500 ####[facility] [address] [place], [address] Potassium [Moles/Vol] 4.1 mmol/L Normal 3.3-5.1 [facility] Comment on above: Performed By: #### L 100.0100, L500.2500 ####[facility] [address] [place], [address] Sodium [Moles/Vol] 142 mmol/L Normal 133-145 [facility] Comment on above: Performed By: #### L 100.0100, L500.2500 ####[facility] [address] [place], [address] Urea nitrogen [Mass/Vol] 54 mg/dL High 4-19 [facility] Comment on above: Performed By: #### L 100.0100, L500.2500 ####[facility] [address] [place], [address] Blood Gases by CPSon 08-26-2 025 Base excess Calc (Bld) [Moles/Vol] -4 mmol/L Low -2 to +2 [facility] Comment on above: Performed By: #### L 0.0800 ####[facility] [address] [place], [address] Blood Gas Type ART Normal [facility] Comment on above: Performed By: #### L 0.0800 ####[facility] [address] [place], [address] CO2 [Moles/Vol] 22 mmol/L Normal [facility] Comment on above: Performed By: #### L 0.0800 ####[facility] [address] [place], [address] FI02 70.0 Normal [facility] Comment on above: Performed By: #### L 0.0800 ####[facility] [address] [place], [address] HCO3 (Bld) [Moles/Vol] 20.7 mmol/L Low 22-26 [facility] Comment on above: Performed By: #### L 8999.0800 ####[facility] [address] [place], [address] Mode AC Normal [facility] Comment on above: Performed By: #### L 9000.0800 ####[facility] [address] [place], [address] O2 Delivery Dev Adult Vent Normal [facility] Comment on above: Performed By: #### L 9000.0800 ####[facility] [address] [place], [address] pCO2 32.5 mmHg Low 35-45 [facility] Comment on above: Performed By: #### L 0.0800 ####[facility] [address] [place], [address] PEEP 8 Normal [facility] Comment on above: Performed By: #### L 9000.0800 ####[facility] [address] [place], [address] pH (Bld) 7.41 [pH] Normal 7.35-7.45 [facility] Comment on above: Performed By: #### L 9000.0800 ####[facility] [address] [place], [address] PO2 79 mmHG Normal 75-100 [facility] Comment on above: Performed By: #### L 9000.0800 ####[facility] [address] [place], [address] RR 16 Normal [facility] Comment on above: Performed By: #### L 9000.0800 ####[facility] [address] [place], [address] SITE L Radial Normal [facility] Comment on above: Performed By: #### L 9000.0800 ####[facility] [address] [place], [address] SO2 96 Normal 95-99 [facility] Comment on above: Performed By: #### L 9000.0800 ####[facility] [address] [place], [address] Vt 450.0 mL Normal [facility] Comment on above: Performed By: #### L 9000.0800 ####[facility] [address] [place], [address] CBC W/Diff, Automatedon - SMEAR COMMENT SCANNED Normal [facility] Comment on above: Result Comment: NEUT ROPHILIA PRESENTLYMPHOPENIA PRESENT Performed By: #### L 100.0100, L500.2500 ####[facility] [address] [place], [address] Chest 1 View (Portable)on Chest 1 View (Portable) Normal [facility] Electrocardiogram reportOrde red By: Arley Power on 05-22-2025 EKG study [facility] Other Phone: HH, Hemoglobin AND Hematocri ton 05-22-2025 Hematocrit (Bld) [Volume fraction] 25.0 % Low 37-47 [facility] Comment on above: Performed By: #### L 100.0600 ####[facility] [address] [place], [address] Hemoglobin (Bld) [Mass/Vol] 7.8 g/dL Low 12.0-15.0 [facility] Comment on above: Performed By: #### L 100.0600 ####[facility] [address] [place], [address] Magnesiumon 05-22-2025 Magnesium [Mass/Vol] 2.4 mg/dL High 1.5-2.2 [facility] Comment on above: Order Comment: *ADD- ON* Performed By: #### L 501.5200, L501.2300 ####[facility] [address] [place], [address] Phosphoruson 05-22-2025 Phosphate [Mass/Vol] 4.2 mg/dL Normal 2.7-4.5 [facility] Comment on above: Order Comment: *ADD- ON* Performed By: #### L 501.5200, L501.2300 ####[facility] [address] [place], [address] 12 Lead EKGon 05-21-2025 12 Lead EKG Normal [facility] Absolute lymphocyte countOrd ered By: Dar Hunt on 05-21-2025 Lymphocytes Auto (Unsp spec) [#/Vol] 0.95 10*3/uL 0.83-4.51 [facility] Absolute neutrophil countOrd ered By: Dar Hunt on 05-21-2025 Neutrophils (Bld) [#/Vol] 13.0 10*3/uL High 2.0-7.7 [facility] Anion gap in Serum or Plasma Ordered By: Dar Hunt on 05-21-2025 Anion gap [Moles/Vol] 21 mmol/L High 5-15 [facility] Assessment of wrist artery p atency prior to arterial punctureOrdered By: Dar Hunt on 05-21-2025 Arterial patency Wrist artery --pre arterial puncture Positive [facility] Automated lymphocyte count a s percentage of total leukocytesOrdered By: Dar Hunt on 05-21-2025 Lymphocytes/100 WBC Auto (Unsp spec) 6.5 % Low 19-41 [facility] BRCon 05-21-2025 RC Normal [facility] Comment on above: Result Comment: [id number] AN RC TRANSFUSED 05/21/25 [id number] AP RC TRANSFUSED 05/21/25 [id number] AP RC TRANSFUSED 05/21/25 [id number] AP RC TRANSFUSED 05/21/252006 Performed By: #### B TS, L503.6030, L503.6550, BR ####[facility] [address] [place], [address] BUN/creatinine ratioOrdered By: Dar Hunt on 05-21-2025 Urea nitrogen/Creatinine [Mass ratio] 23.8 mg/mg High 10-20 [facility] Basophil percentageOrdered B y: Dar Hunt on 05-21-2025 Basophils/100 WBC (Bld) 0.1 % 0-1 [facility] Bilirubin Test strip Ql (U)O rdered By: Julian Monsivais on 05-21-2025 Bilirubin Ql (U) Negative Negative [facility] Bilirubin, totalOrdered By: Dar Hunt on 05-21-2025 Bilirubin [Mass/Vol] 1.05 mg/dL 0.00-1.30 [facility] Blood Gases by CPSon 025 KISHAN TEST Positive Normal [facility] Comment on above: Performed By: #### L 9000.0800 ####[facility] [address] [place], [address] Base excess Calc (Bld) [Moles/Vol] -7 mmol/L Low -2 to +2 [facility] Comment on above: Performed By: #### L 9000.0800 ####[facility] [address] [place], [address] Blood Gas Type ART Normal [facility] Comment on above: Performed By: #### L 0.0800 ####[facility] [address] [place], [address] CO2 [Moles/Vol] 17 mmol/L Normal [facility] Comment on above: Performed By: #### L 0.0800 ####[facility] [address] [place], [address] FI02 100.0 Normal [facility] Comment on above: Performed By: #### L 0.0800 ####[facility] [address] [place], [address] HCO3 (Bld) [Moles/Vol] 16.4 mmol/L Low 22-26 [facility] Comment on above: Performed By: #### L 900.0800 ####[facility] [address] [place], [address] Mode Not entered [facility] Comment on above: Performed By: #### L 9000.0800 ####[facility] [address] [place], [address] O2 Delivery Dev NRB Normal [facility] Comment on above: Performed By: #### L 8999.0800 ####[facility] [address] [place], [address] pCO2 22.8 mmHg Low 35-45 [facility] Comment on above: Performed By: #### L 0.0800 ####[facility] [address] [place], [address] pH (Bld) 7.46 [pH] High 7.35-7.45 [facility] Comment on above: Performed By: #### L 9000.0800 ####[facility] [address] [place], [address] PO2 79 mmHG Normal 75-100 [facility] Comment on above: Performed By: #### L 9000.0800 ####[facility] [address] [place], [address] SITE L Radial Normal [facility] Comment on above: Performed By: #### L 9000.0800 ####[facility] [address] [place], [address] SO2 97 Normal 95-99 [facility] Comment on above: Performed By: #### L 9000.0800 ####[facility] [address] [place], [address] Blood base excess determinat ionOrdered By: Dar Hunt on 05-21-2025 Base excess Calc (BldV) [Moles/Vol] -7 mmol/L Low -2-2 [facility] Blood bicarbonate measuremen tOrdered By: Dar Hunt on 05-21-2025 HCO3 (Bld) [Moles/Vol] 16.4 mmol/L Low 22-26 [facility] Blood cultureOrdered By: Briceno on 05-21-2025 Bacteria identified Cx Nom (Bld) No growth in 5 days. [facility] Blood manual differential co mment interpretation (narrative result)Ordered By: Dar Hunt on 05-21-2025 Manual differential comment Lino (Bld) [Interp] SCANNED [facility] CBC W/Diff, Automatedon 04-28 Anisocytosis Ql (Bld) 2+ Normal [facility] Comment on above: Performed By: #### L 100.0100, L500.4050, L503.6005 ####[facility] [address] [place], [address] HYPOCHROMASIA 3+ Normal [facility] Comment on above: Performed By: #### L 100.0100, L500.4050, L503.6005 ####[facility] [address] [place], [address] SMEAR COMMENT SCANNED Normal [facility] Comment on above: Performed By: #### L 100.0100, L500.4050, L503.6005 ####[facility] [address] [place], [address] CO2 (BldV) [Moles/Vol]Ordere d By: Matt Acevedo on 05-21-2025 CO2 [Moles/Vol] 21 mmol/L Low 23-33 [facility] CPK Total, Creatine Kinaseon 05-21-2025 CPK TOTAL 97 U/L Normal 24-195 [facility] Comment on above: Order Comment: Comme nts: DC when propofol is d/c'd Performed By: #### L 501.8209 ####[facility] [address] [place], [address] Carbon dioxide, total [Moles /volume] in Central venous bloodOrdered By: Dar Hunt on 05-21-2025 CO2 [Moles/Vol] 14.9 mmol/L Low 21.0-32.0 [facility] Chest 1 View (Portable)on Chest 1 View (Portable) Normal [facility] Chest 1 View (Portable) Normal [facility] Chloride assayOrdered By: Ug o Hunt on 05-21-2025 Chloride [Moles/Vol] 105 mmol/L 98-108 [facility] Comprehensive Metabolic Prof ilon 05-21-2025 Albumin [Mass/Vol] 3.3 g/dL Low 3.4-4.8 [facility] Comment on above: Performed By: #### L 100.0100, L500.4050, L503.6005 ####[facility] [address] [place], [address] Albumin/Globulin [Mass ratio] 1.0 {ratio} Normal 0.9-2.4 [facility] Comment on above: Performed By: #### L 100.0100, L500.4050, L503.6005 ####[facility] [address] [place], [address] ALK PHOS 74 U/L Normal 35-104 [facility] Comment on above: Performed By: #### L 100.0100, L500.4050, L503.6005 ####[facility] [address] [place], [address] ALT [Catalytic activity/Vol] 16 U/L Normal <=34 [facility] Comment on above: Performed By: #### L 100.0100, L500.4050, L503.6005 ####[facility] [address] [place], [address] AST [Catalytic activity/Vol] 20 U/L Normal <=31 [facility] Comment on above: Performed By: #### L 100.0100, L500.4050, L503.6005 ####[facility] [address] [place], [address] Bilirubin [Mass/Vol] 1.05 mg/dL Normal 0.00-1.30 [facility] Comment on above: Performed By: #### L 100.0100, L500.4050, L503.6005 ####[facility] [address] [place], [address] BUN/CRE 23.8 RATIO High 10-20 [facility] Comment on above: Performed By: #### L 100.0100, L500.4050, L503.6005 ####[facility] [address] [place], [address] Calcium [Mass/Vol] 8.3 mg/dL Normal 7.6-11.0 [facility] Comment on above: Performed By: #### L 100.0100, L500.4050, L503.6005 ####[facility] [address] [place], [address] Chloride [Moles/Vol] 105 mmol/L Normal 98-108 [facility] Comment on above: Performed By: #### L 100.0100, L500.4050, L503.6005 ####[facility] [address] [place], [address] CO2 [Moles/Vol] 14.9 mmol/L Low 21.0-32.0 [facility] Comment on above: Performed By: #### L 100.0100, L500.4050, L503.6005 ####[facility] [address] [place], [address] Creatinine [Mass/Vol] 2.35 mg/dL High 0.70-1.20 [facility] Comment on above: Performed By: #### L 100.0100, L500.4050, L503.6005 ####[facility] [address] [place], [address] ECRCL 26.86 ml/min Low 50-250 [facility] Comment on above: Performed By: #### L 100.0100, L500.4050, L503.6005 ####[facility] [address] [place], [address] GAP 21 High 5-15 [facility] Comment on above: Performed By: #### L 100.0100, L500.4050, L503.6005 ####[facility] [address] [place], [address] GFR/1.73 sq M.predicted among non-blacks MDRD (S/P/Bld) [Vol rate/Area] 23 mL/min/{1.73_m2} Low >60 [facility] Comment on above: Result Comment: mL/m in/1.73m2 CKD-EPI Creatinine Equation (2020) Performed By: #### L 100.0100, L500.4050, L503.6005 ####[facility] [place] [address] [place], [address] Globulin (S) [Mass/Vol] 3.4 g/dL Normal 2.2-4.2 [facility] Comment on above: Performed By: #### L 100.0100, L500.4050, L503.6005 ####[facility] [address] [place], [address] Glucose [Mass/Vol] 120 mg/dL High 70-99 [facility] Comment on above: Performed By: #### L 100.0100, L500.4050, L503.6005 ####[facility] [address] [place], [address] Potassium [Moles/Vol] 5.8 mmol/L High 3.3-5.1 [facility] Comment on above: Performed By: #### L 100.0100, L500.4050, L503.6005 ####[facility] [address] [place], [address] Sodium [Moles/Vol] 140 mmol/L Normal 133-145 [facility] Comment on above: Performed By: #### L 100.0100, L500.4050, L503.6005 ####[facility] [address] [place], [address] T PROT 6.7 g/dL Normal 5.9-8.4 [facility] Comment on above: Performed By: #### L 100.0100, L500.4050, L503.6005 ####[facility] [address] [place], [address] Urea nitrogen [Mass/Vol] 56 mg/dL High 4-19 [facility] Comment on above: Performed By: #### L 100.0100, L500.4050, L503.6005 ####[facility] [address] [place], [address] Consultation - Intensiviston 05-21-2025 Consultation - [place] Department Operator Normal [facility] Echo Complete W/ Contraston 05-21-2025 Echo Complete W/ Contrast Normal [facility] Echocardiogram study reportO rdered By: Efren Arevalo on 05-21-2025 Study report [facility] Work Phone: Emergency Department Summary on 05-21-2025 Emergency Department Summary Normal [facility] Eosinophil percentageOrdered By: Dar Hunt on 05-21-2025 Eosinophils/100 WBC (Bld) 0.0 % 0-5 [facility] Erythrocyte distribution wid th ratioOrdered By: Dar Hunt on 05-21-2025 Erythrocyte distribution width (RBC) [Ratio] 21.1 % High 11.6-14.6 [facility] Erythrocyte distribution wid th standard deviationOrdered By: Dar Hunt on 05-21-2025 Erythrocyte distribution width (RBC) [Ratio] 46.6 fl High 35.1-43.9 [facility] Ferritinon 05-21-2025 Ferritin [Mass/Vol] 62 ng/mL Normal 22-378 [facility] Comment on above: Performed By: #### L 501.9520, L503.0106, L501.5000, L503.6030, L506.0200, L503.6550 ####[facility] [address] [place], [address] Ferritin [Mass/Vol] 53 ng/mL Normal 22-378 [facility] Comment on above: Performed By: #### B TS, L503.6030, L503.6550, BRC ####[facility] [address] [place], [address] Folate [Moles/volume] in Ser um or PlasmaOrdered By: Matt Jopperi on 05-21-2025 Folate [Moles/Vol] 5.60 ng/mL 4.60-34.80 [facility] Folates,Serum (Folic Acid)on 05-21-2025 FOLATES,SERUM 5.60 ng/mL Normal 4.60-34.80 [facility] Comment on above: Performed By: #### L 501.9520, L503.0106, L501.5000, L503.6030, L506.0200, L503.6550 ####[facility] [address] [place], [place], [id number] Glomerular filtration rate ( GFR) estimation/1.73 sq m using serum, plasma, or whole bOrdered By: Dar Hunt on 05-21-2025 GFR/1.73 sq M.predicted among non-blacks MDRD (S/P/Bld) [Vol rate/Area] 23 mL/min/{1.73_m2} Low >60 [facility] Comment on above: mL/min/1.73m2 CKD-EP I Creatinine Equation (2020) Gram stainOrdered By: Julian Monsivais on 05-21-2025 Microscopic observation Gram stain Nom (Unsp spec) [facility] H AND P Exam - Hospitaliston 05-21-2025 H&P Exam - Hospitalist Normal [facility] HH, Hemoglobin AND Hematocri ton 05-21-2025 Hematocrit (Bld) [Volume fraction] 16.0 % Low 37-47 [facility] Comment on above: Performed By: #### L 100.0600 ####[facility] [address] [place], [place], [id number] Hemoglobin (Bld) [Mass/Vol] 4.4 g/dL Invalid Interpretation Code 12.0-15.0 [facility] Comment on above: Result Comment: CRIT ICAL VALUE CALLED TO CUUSRTHAG27/25/25 1422 Alexia Maurer.RESULTS READ BACK BY SAME. Performed By: #### L 100.0600 ####[facility] [address] [place], [place], [address] Hematocrit Auto (Bld) [Volum e fraction]Ordered By: Dar Hunt on 05-21-2025 Hematocrit (Bld) [Volume fraction] 14.4 % Low 37-47 [facility] Hemoglobin measurementOrdere d By: Dar Hunt on 05-21-2025 Hemoglobin (Bld) [Mass/Vol] 3.6 g/dL Low 12.0-15.0 [facility] Comment on above: CRITICAL VALUE [facility]/21/25 0948 Alexia Ayalazano.RESULTS READ BACK BY SAME. Hypochromatic red blood cell detectionOrdered By: Darzoila Hunt on 05-21-2025 Hypochromia Ql (Bld) 3+ [facility] Immature granulocytes/100 WB C Auto (Bld)Ordered By: Darzoila Hunt on 05-21-2025 Immature granulocytes/100 WBC (Bld) 0.900 % 0.0-0.9 [facility] Comment on above: IG% - Immature Granu locytes (promyelocytes, myelocytes and metamyelocytes) > 1% indicates that a LEFT SHIFT is Present. Iron measurement (mass/mass) Ordered By: Matt Acevedo on 05-21-2025 Iron (Unsp spec) [Mass/Mass] 22 ug/dL Low 50-170 [facility] Iron+Iron Binding Capacityon 05-21-2025 Iron [Mass/Vol] 11 ug/dL Low 50-170 [facility] Comment on above: Performed By: #### B TS, L503.6030, L503.6550, BRC ####[facility] [address] [place], [address] IRON SATURATION 3.0 Low 13-59 [facility] Comment on above: Performed By: #### B TS, L503.6030, L503.6550, BRC ####[facility] [address] [place], [address] TIBC 361 ug/dL Normal 250-450 [facility] Comment on above: Performed By: #### B TS, L503.6030, L503.6550, BRC ####[facility] [address] [place], [address] UIBC 350 ug/dL Normal 228-428 [facility] Comment on above: Performed By: #### B TS, L503.6030, L503.6550, BRC ####[facility] [address] [place], [address] Iron [Mass/Vol] 22 ug/dL Low 50-170 [facility] Comment on above: Order Comment: DC wh en propofol is d/c'd Performed By: #### L 501.9520, L503.0106, L501.5000, L503.6030, L506.0200, L503.6550 ####[facility] [address] [place], [address] IRON SATURATION 7.0 Low 13-59 [facility] Comment on above: Order Comment: DC wh en propofol is d/c'd Performed By: #### L 501.9520, L503.0106, L501.5000, L503.6030, L506.0200, L503.6550 ####[facility] [address] [place], [address] TIBC 338 ug/dL Normal 250-450 [facility] Comment on above: Order Comment: DC wh en propofol is d/c'd Performed By: #### L 501.9520, L503.0106, L501.5000, L503.6030, L506.0200, L503.6550 ####[facility] [address] [place], [address] UIBC 316 ug/dL Normal 228-428 [facility] Comment on above: Order Comment: DC wh en propofol is d/c'd Performed By: #### L 501.9520, L503.0106, L501.5000, L503.6030, L506.0200, L503.6550 ####[facility] [address] [place], [place], [address] Ketones Test strip Ql (U)Ord ered By: Julian Monsivais on 05-21-2025 Ketones Ql (U) Negative Negative [facility] Kidney and Bladderon 025 Kidney and Bladder Normal [facility] L501.4021on 05-21-2025 Trop T High Sen 35 ng/L High <=14 [facility] Comment on above: Performed By: #### L 501.4021 ####[facility] [address] [place], [address] L509.7001on 05-21-2025 Procalcitonin 0.51 ng/mL High <=0.10 [facility] Comment on above: Result Comment: Inte rpretation:<0.10-0.25 ng/mL: Antibiotic therapy discouraged. Bacterialinfection unlikely.0.25-0.50 ng/mL: Antibiotic therapy encouraged. Bacterialinfection possible.>0.50 ng/mL: Antibiotic therapy strongly encouraged.Suggestive of presence of bacterial infection.PCT should always be interpreted in the clinical context ofthe patient. Therefore, clinicians should use the PCTresults in conjunction with other laboratory findings andclinical signs of the patient. Performed By: #### L 509.7008, L503.0011 ####[facility] [address] [place], [address] Laboratory - Chemistry and C hemistry - challengeOrdered By: Dar Hunt on 05-21-2025 AST [Catalytic activity/Vol] 20 U/L <32 [facility] Laboratory - Hematology and Cell countsOrdered By: Darzoila Hunt on 05-21-2025 Anisocytosis Ql (Bld) 2+ [facility] Lactic Acidon 05-21-2025 Lactate [Moles/Vol] 2.9 mmol/L Invalid Interpretation Code 0.0-2.0 [facility] Comment on above: Result Comment: Crit ical Result(s) Called at: by: CORINE SANDOVAL??Results readback by same. Performed By: #### L 503.6005 ####[facility] [address] [place], [address] Lactate [Moles/Vol] 6.7 mmol/L Invalid Interpretation Code 0.0-2.0 [facility] Comment on above: Order Comment: Y Result Comment: Crit ical Result(s) Called to: Bobby HARVEY (ER) by:Meet??Results read back by same. Performed By: #### L 100.0100, L500.4050, L503.6005 ####[facility] [address] [place], [place], [address] Lactic acid measurementOrder ed By: Dar Hunt on 05-21-2025 Lactate [Moles/Vol] 6.7 mmol/L High 0.0-2.0 [facility] Comment on above: Critical Result(s) C alled to: Bobby HARVEY (ER) by: Meet Results read back by same. MCV (mean corpuscular volume ) determinationOrdered By: Dar Hunt on 05-21-2025 MCV (RBC) [Entitic vol] 64.6 fL Low 81-99 [facility] MR/CON.PCM.GIon 05-21-2025 MR/CON.PCM.GI Normal [facility] Mean corpuscular hemoglobin (MCH) determinationOrdered By: Dar Hunt on 05-21-2025 MCH (RBC) [Entitic mass] 16.1 pg Low 27.0-32.0 [facility] Mean corpuscular hemoglobin concentration (MCHC) determinationOrdered By: Darzoila Hunt on 05-21-2025 MCHC (RBC) [Mass/Vol] 25.0 g/dL Low 32-36 [facility] Mean platelet volume determi nationOrdered By: Darzoila Hunt on 05-21-2025 Platelet mean volume (Bld) [Entitic vol] 10.2 fL 6.2-12.0 [facility] Measurement, pHOrdered By: Marques Hunt on 05-21-2025 pH (Unsp spec) 7.46 [pH] High 7.35-7.45 [facility] Microbial respiratory cultur eOrdered By: Julian Monsivais on 05-21-2025 Microorganism identified Cx Nom (Unsp spec) [facility] Monocyte percentageOrdered B y: Dar Hunt on 05-21-2025 Monocytes/100 WBC (Bld) 4.1 % 0-10 [facility] Mucus LM Ql (Urine sed)Order ed By: Julian Monsivais on 05-21-2025 Mucus Ql (Urine sed) 0 SEEN /hpf [facility] Neutrophil percentageOrdered By: Dar Hunt on 05-21-2025 Neutrophils/100 WBC (Bld) 88.4 % High 47-70 [facility] Nitrite Test strip Ql (U)Ord ered By: Julian Monsivais on 05-21-2025 Nitrite Ql (U) Negative Negative [facility] No Panel InformationOrdered By: Matt Acevedo on 05-21-2025 316 ug/dL 228-428 [facility] No Panel InformationOrdered By: Dar Hunt on 05-21-2025 Blood Gas Sample Site L Radial [facility] Blood Gas Specimen Type ART [facility] Blood Gas Vent Mode Not entered [facility] Oxygen Delivery Device [facility] Nucleated red blood cell per centageOrdered By: Dar Hunt on 05-21-2025 Nucleated RBC/100 WBC (Bld) [Ratio] 1.0 % 0-5 [facility] Platelet countOrdered By: Emigdio Hunt on 05-21-2025 Platelets (Bld) [#/Vol] 426 10*3/uL 150-450 [facility] Potassium measurement (mass/ volume)Ordered By: Dar Hunt on 05-21-2025 Potassium (Unsp spec) [Mass/Vol] 5.8 mmol/L High 3.3-5.1 [facility] Pro- Brain NATRIURETIC PEPTI Rosalina 05-21-2025 Natriuretic peptide B (Bld) [Mass/Vol] 53733 pg/mL High <=900 [facility] Comment on above: Result Comment: Hear t Failure Unlikely: < 300 pg/mLHeart Failure Likely< 50 Years: > 450 pg/mL50-75 Years: > 900 pg/mL>75 Years: > 1800 pg/mL Performed By: #### L 509.7008, L503.7505 ####[facility] [address] [place], [place], [address] Procedure Reporton Procedure Report Normal [facility] Procedure Report Normal [facility] Protein Test strip Ql (U)Ord ered By: Julian Monsivais on 05-21-2025 Protein Ql (U) 100 mg/dl High Negative [facility] Prothrombin Time w/INRon INR Coag (PPP) [Relative time] 1.3 {INR} Normal [facility] Comment on above: Performed By: #### L 300.3900 ####[facility] [address] [place], [place], [id number] PT Coag (PPP) [Time] 16.9 s High 11.7-14.9 [facility] Comment on above: Performed By: #### L 300.3900 ####[facility] [address] [place], [place], [address] Prothrombin timeOrdered By: Matt Acevedo on 05-21-2025 PT Coag (PPP) [Time] 16.9 s High 11.7-14.9 [facility] RBC Auto (Bld) [#/Vol]Ordere d By: Dar Hunt on 05-21-2025 RBC (Bld) [#/Vol] 2.23 10*6/uL Low 4.2-5.4 [facility] Serum creatinine measurement (mass/volume)Ordered By: Dar Hunt on 05-21-2025 Creatinine [Mass/Vol] 2.35 mg/dL High 0.70-1.20 [facility] Serum globulin measurementOr dered By: Dar Hunt on 05-21-2025 Globulin (S) [Mass/Vol] 3.4 g/dL 2.2-4.2 [facility] Serum glucose measurement (m ass/volume)Ordered By: Dar Hunt on 05-21-2025 Glucose [Mass/Vol] 120 mg/dL High 70-99 [facility] Serum or plasma alanine sosa otransferase (ALT) measurementOrdered By: Dar Hunt on 05-21-2025 ALT [Catalytic activity/Vol] 16 U/L <35 [facility] Serum or plasma albumin suresh urement (mass/volume)Ordered By: Dar Hunt on 05-21-2025 Albumin [Mass/Vol] 3.3 g/dL Low 3.4-4.8 [facility] Serum or plasma albumin/glob ulin mass ratioOrdered By: Dar Hunt on 05-21-2025 Albumin/Globulin [Mass ratio] 1.0 {ratio} 0.9-2.4 [facility] Serum or plasma alkaline [place] sphatase measurementOrdered By: Dar Hunt on 05-21-2025 ALP [Catalytic activity/Vol] 74 U/L 35-104 [facility] Serum or plasma calcium suresh urement (mass/volume)Ordered By: Dar Hunt on 05-21-2025 Calcium [Mass/Vol] 8.3 mg/dL 7.6-11.0 [facility] Serum or plasma creatine kin ase activityOrdered By: Julian Monsivais on 05-21-2025 CK [Catalytic activity/Vol] 97 U/L 24-195 [facility] Serum or plasma ferritin fabio surement (mass/volume)Ordered By: Matt Acevedo on 05-21-2025 Ferritin [Mass/Vol] 62 ng/mL 22378 [facility] Serum or plasma ferritin fabio surement (mass/volume)Ordered By: Dar Hunt on 05-21-2025 Ferritin [Mass/Vol] 53 ng/mL 378 [facility] Serum or plasma iron saturat ion measurement (mass fraction)Ordered By: Matt Acevedo on 05-21-2025 Iron saturation [Mass fraction] 7.0 % Low 13-59 [facility] Serum or plasma urea nitroge n measurement (mass/volume)Ordered By: Dar Hunt on 05-21-2025 Urea nitrogen [Mass/Vol] 56 mg/dL High 4-19 [facility] Sodium levelOrdered By: Dar Hunt on 05-21-2025 Sodium [Moles/Vol] 140 mmol/L 133-145 [facility] Squamous epithelial cells de tection in urine sediment by light microscopyOrdered By: Julian Monsivais on 05-21-2025 Epithelial cells.squamous LM Ql (Urine sed) 5-10 SEEN /hpf 5-10 [facility] TSH DL <= 0.005 mIU/L QnOrde red By: Matt Acevedo on 05-21-2025 TSH Qn 1.040 uIU/mL 0.300-4.20 0 [facility] Thyroid Stim Hormone (TSH)on 05-21-2025 TSH 1.040 uIU/mL Normal 0.300-4.20 0 [facility] Comment on above: Performed By: #### L 501.9520, L503.0106, L501.5000, L503.6030, L506.0200, L503.6550 ####[facility] [address] [place], [address] Total carbon dioxide measure mentOrdered By: Dar Hunt on 05-21-2025 CO2 [Moles/Vol] 17 mmol/L [facility] Total proteinOrdered By: Dar Hunt on 05-21-2025 Protein [Mass/Vol] 6.7 g/dL 5.9-8.4 [facility] Triglycerideson 05-21-2025 Triglyceride [Mass/Vol] 80 mg/dL Normal [facility] Comment on above: Order Comment: SHAKILA mckeon en propofol is d/c'd Result Comment: The drugs N-Acetylcysteine and Metamizole may falselydepress this assay.Normal range: <150 mg/dLBorderline High: 150-199 mg/dLHigh: 200-499 mg/dLVery High: >500 mg/dL Performed By: #### L 501.9520, L503.0106, L501.5000, L503.6030, L506.0200, L503.6550 ####[facility] [address] [place], [address] Troponin T HS 2 HRon 025 Trop T High Sen 35 ng/L High <=14 [facility] Comment on above: Performed By: #### L 499.0042 ####[facility] [address] [place], [address] Troponin T HS 4 HRon 025 Trop T High Sen 32 ng/L High <=14 [facility] Comment on above: Performed By: #### L 499.0043 ####[facility] [address] [place], [place], [address] Troponin T.cardiac [Mass/vol ume] in Serum or Plasma by High sensitivity methodOrdered By: Dar Hunt on 05-21-2025 Troponin T.cardiac High sensitivity method [Mass/Vol] 32 ng/L High <14 [facility] Troponin T.cardiac High sensitivity method [Mass/Vol] 35 ng/L High <14 [facility] Troponin T.cardiac High sensitivity method [Mass/Vol] 35 ng/L High <14 [facility] Type AND Screenon 05-21-2025 Ab SCREEN GEL Negative Normal [facility] Comment on above: Order Comment: Has p t arrived? YCMV NEG? NNumber of units to transfuse: 4Is this product for anemia associated withhemoglobinopathy? NIs pt's Hgb is = to 7.0 mg/dl or Hct </= 21%? YIs this for PREOP anemia correction prior to anesthesia? NReason for Ordering Blood: ChronicIs there symptomatic anemia? Olga the blood/blood products to be transfused? YIs the patient having/had surgery? Juan Carlos Arevalo Performed By: #### B , L503.6084, L503.0387, BR ####[facility] [address] [place], [address] Urinalysis, Completeon 05-21 BACTERIA 2+ /hpf Normal None Seen [facility] Comment on above: Order Comment: CARI CTOR TO SPECIFY Performed By: #### L 400.0001, M100.2200 ####[facility] [address] [place], [address] EPI,SQUAMOUS 5-10 SEEN Normal 5-10 [facility] Comment on above: Order Comment: CARI CTOR TO SPECIFY Performed By: #### L 400.0001, M100.2200 ####[facility] [address] [place], [address] RBC 10-25 SEEN Normal 0-5 [facility] Comment on above: Order Comment: COLLE CTOR TO SPECIFY Performed By: #### L 400.0001, M100.2200 ####[facility] [address] [place], [address] WBC >100 SEEN Normal 0-5 [facility] Comment on above: Order Comment: COLLE CTOR TO SPECIFY Performed By: #### L 400.0001, M100.2200 ####[facility] [address] [place], [address] Mucus Ql (Urine sed) 0 SEEN Normal [facility] Comment on above: Order Comment: CARI CTOR TO SPECIFY Performed By: #### L 400.0001, M100.2200 ####[facility] [address] [place], [address] Urine clarityOrdered By: Briceno on 05-21-2025 Clarity (U) Cloudy Clear [facility] Urine color determinationOrd ered By: Julian Monsivais on 05-21-2025 Color (U) Yellow Yellow [facility] Urine cultureOrdered By: Briceno on 05-21-2025 Bacteria identified Cx Nom (U) Escherichia coli Abnormal [facility] Urine glucose detectionOrder ed By: Julian Monsivais on 05-21-2025 Glucose Ql (U) Normal mg/dl Normal [facility] Urine leukocyte esterase det ection by dipstickOrdered By: Julian Monsivais on 05-21-2025 Leukocyte esterase Test strip Ql (U) 500 /ul High Negative [facility] Urine pHOrdered By: Julian sanders on 05-21-2025 pH (U) 5.0 [pH] 5.0 - 8.0 [facility] Urine sediment bacteria coun t by microscopy (number/high power field)Ordered By: Julian Monsivais on 05-21-2025 Bacteria LM.HPF (Urine sed) [#/Area] 2 /[HPF] None Seen [facility] Urine specific gravity measu rementOrdered By: Julian Monsivais on 05-21-2025 Specific gravity (U) [Rel density] 1.020 1.002-1.03 0 [facility] Urine urobilinogen measureme ntOrdered By: Julian Monsivais on 05-21-2025 Urobilinogen Ql (U) Normal mg/dl Normal [facility] [facility] Venous Blood Gason 5 Blood Gas Type LJ Normal [facility] Comment on above: Performed By: #### L 900.0810 ####[facility] [address] [place], [address] CO2 [Moles/Vol] 21 mmol/L Low 23-33 [facility] Comment on above: Performed By: #### L 8999.0810 ####[facility] [address] [place], [address] FI02 60.0 Normal [facility] Comment on above: Performed By: #### L 900.0810 ####[facility] [address] [place], [address] HCO3 (Bld) [Moles/Vol] 20 mmol/L Low 22-26 [facility] Comment on above: Performed By: #### L 900.0810 ####[facility] [address] [place], [address] O2 Delivery Dev Adult Vent Normal [facility] Comment on above: Performed By: #### L 900.0810 ####[facility] [address] [place], [address] PEEP 5 Normal [facility] Comment on above: Performed By: #### L 8999.0810 ####[facility] [address] [place], [address] RR 16 Normal [facility] Comment on above: Performed By: #### L 900.0810 ####[facility] [address] [place], [address] SITE L Radial Normal [facility] Comment on above: Performed By: #### L 9000.0810 ####[facility] [address] [place], [address] VBG BE -4 mmol/L Low -1.0-3.5 [facility] Comment on above: Performed By: #### L 900.0810 ####[facility] [address] [place], [address] VBG pCO2 32.4 mmHg Low 41-51 [facility] Comment on above: Performed By: #### L 9000.0810 ####[facility] [address] [place], [address] VBG pH 7.41 Normal 7.32-7.42 [facility] Comment on above: Performed By: #### L 9000.0810 ####[facility] [address] [place], [address] VBG PO2 23 mmHg Low 25-40 [facility] Comment on above: Performed By: #### L 9000.0810 ####[facility] [address] [place], [address] VBG SO2 42 Low 50-70 [facility] Comment on above: Performed By: #### L 9000.0810 ####[facility] [address] [place], [address] Vt 450.0 mL Normal [facility] Comment on above: Performed By: #### L 9000.0810 ####[facility] [address] [place], [address] Venous blood base excess fabio surementOrdered By: Matt Acevedo on 05-21-2025 Base excess Calc (BldV) [Moles/Vol] -4 mmol/L Low -1.0-3.5 [facility] Venous blood bicarbonate fabio surementOrdered By: Matt Acevedo on 05-21-2025 HCO3 (Bld) [Moles/Vol] 20 mmol/L Low 22-26 [facility] Venous blood pH measurementO rdered By: Matt Acevedo on 05-21-2025 pH (BldV) 7.41 [pH] 7.32-7.42 [facility] Venous blood partial pressur e of carbon dioxide measurementOrdered By: Matt Acevedo on 05-21-2025 CO2 (BldV) [Partial pressure] 32.4 mm[Hg] Low 41-51 [facility] Venous blood partial pressur e of oxygen measurementOrdered By: Matt Acevedo on 05-21-2025 Oxygen (BldV) [Partial pressure] 23 mm[Hg] Low 25-40 [facility] Vitamin B12on 05-21-2025 Cobalamin (Vitamin B12) [Mass/Vol] 717 pg/mL Normal 180-914 [facility] Comment on above: Performed By: #### L 501.9520, L503.0106, L501.5000, L503.6030, L506.0200, L503.6550 ####[facility] [address] [place], [address] Vitamin B12 ser/plasOrdered By: Matt Acevedo on 05-21-2025 Cobalamin (Vitamin B12) [Mass/Vol] 717 pg/mL 180-914 [facility] White blood cell (WBC) count Ordered By: Dar Hunt on 05-21-2025 WBC (Bld) [#/Vol] 14.7 10*3/uL High 4.4-11.0 [facility] White blood cell countOrdere d By: Julian Monsivais on 05-21-2025 White blood cell count >100 SEEN /hpf 0-5 [facility] Prealbumin [id number] Prealbumin [Mass/Vol] 14 mg/dL Normal 10-36 [facility] Comment on above: Result Comment: Perf ormed at: - [facility] [id number] Director: Parag Richard PhD, Phone: [phone] Performed By: #### L 3300.6400, L100.0100, L501.9520, L500.4050 ####[facility] [address] [place], [place], [id number] Absolute lymphocyte countOrd ered By: Sabrina Duran on 01-22-2025 Lymphocytes Auto (Unsp spec) [#/Vol] 1.58 10*3/uL 0.83-4.51 [facility] Absolute neutrophil countOrd ered By: Sabrina Duran on 01-22-2025 Neutrophils (Bld) [#/Vol] 6.1 10*3/uL 2.0-7.7 [facility] Anion gap in Serum or Plasma Ordered By: Sabrina Duran on 01-22-2025 Anion gap [Moles/Vol] 12 mmol/L 5-15 [facility] Automated lymphocyte count a s percentage of total leukocytesOrdered By: Sabrina Duran on 01-22-2025 Lymphocytes/100 WBC Auto (Unsp spec) 18.6 % Low 19-41 [facility] BUN/creatinine ratioOrdered By: Sabrina Duran on 01-22-2025 Urea nitrogen/Creatinine [Mass ratio] 18.3 mg/mg 10-20 [facility] Basophil percentageOrdered B y: Sabrina Duran on 01-22-2025 Basophils/100 WBC (Bld) 0.8 % 0-1 [facility] Bilirubin, totalOrdered By: Sabrina Duran on 01-22-2025 Bilirubin [Mass/Vol] 0.49 mg/dL 0.00-1.30 [facility] CBC W/Diff, Automatedon - Absolute Lymph 1.58 X10 3/uL Normal 0.83-4.51 [facility] Comment on above: Performed By: #### L 3300.6400, L100.0100, L501.9520, L500.4050 ####[facility] [address] [place], [place], [id number] Absolute Neut 6.1 X10 3/uL Normal 2.0-7.7 [facility] Comment on above: Performed By: #### L 3300.6400, L100.0100, L501.9520, L500.4050 ####[facility] [address] [place], [address] Basophils/100 WBC (Bld) 0.8 % Normal 0-1 [facility] Comment on above: Performed By: #### L 3300.6400, L100.0100, L501.9520, L500.4050 ####[facility] [address] [place], [address] Eosinophils/100 WBC (Bld) 1.5 % Normal 0-5 [facility] Comment on above: Performed By: #### L 3300.6400, L100.0100, L501.9520, L500.4050 ####[facility] [address] [place], [address] Erythrocyte distribution width (RBC) [Ratio] 16.8 % High 11.6-14.6 [facility] Comment on above: Performed By: #### L 3300.6400, L100.0100, L501.9520, L500.4050 ####[facility] [address] [place], [address] Hematocrit (Bld) [Volume fraction] 25.7 % Low 37-47 [facility] Comment on above: Performed By: #### L 3300.6400, L100.0100, L501.9520, L500.4050 ####[facility] [address] [place], [address] Hemoglobin (Bld) [Mass/Vol] 7.6 g/dL Low 12.0-15.0 [facility] Comment on above: Performed By: #### L 3300.6400, L100.0100, L501.9520, L500.4050 ####[facility] [address] [place], [address] IG% 0.400 Normal 0.0-0.9 [facility] Comment on above: Result Comment: IG% - Immature Granulocytes (promyelocytes, myelocytes andmetamyelocytes) > 1% indicates that a LEFT SHIFT is Present. Performed By: #### L 3300.6400, L100.0100, L501.9520, L500.4050 ####[facility] [address] [place], [address] Lymphocytes/100 WBC (Bld) 18.6 % Low 19-41 [facility] Comment on above: Performed By: #### L 3300.6400, L100.0100, L501.9520, L500.4050 ####[facility] [address] [place], [address] MCH (RBC) [Entitic mass] 21.2 pg Low 27.0-32.0 [facility] Comment on above: Performed By: #### L 3300.6400, L100.0100, L501.9520, L500.4050 ####[facility] [address] [place], [address] MCHC (RBC) [Mass/Vol] 29.6 g/dL Low 32-36 [facility] Comment on above: Performed By: #### L 3300.6400, L100.0100, L501.9520, L500.4050 ####[facility] [address] [place], [address] MCV (RBC) [Entitic vol] 71.8 fL Low 81-99 [facility] Comment on above: Performed By: #### L 3300.6400, L100.0100, L501.9520, L500.4050 ####[facility] [address] [place], [address] Monocytes/100 WBC (Bld) 7.2 % Normal 0-10 [facility] Comment on above: Performed By: #### L 3300.6400, L100.0100, L501.9520, L500.4050 ####[facility] [address] [place], [address] Neutrophils/100 WBC (Bld) 71.5 % High 47-70 [facility] Comment on above: Performed By: #### L 3300.6400, L100.0100, L501.9520, L500.4050 ####[facility] [address] [place], [address] Nucleated RBC (Bld) [#/Vol] 0 10*3/uL Normal 0-5 [facility] Comment on above: Performed By: #### L 3300.6400, L100.0100, L501.9520, L500.4050 ####[facility] [address] [place], [address] Platelet mean volume (Bld) [Entitic vol] 10.1 fL Normal 6.2-12.0 [facility] Comment on above: Performed By: #### L 3300.6400, L100.0100, L501.9520, L500.4050 ####[facility] [address] [place], [address] Platelets (Bld) [#/Vol] 577 10*3/uL High 150-450 [facility] Comment on above: Performed By: #### L 3300.6400, L100.0100, L501.9520, L500.4050 ####[facility] [address] [place], [address] RBC (Bld) [#/Vol] 3.58 10*6/uL Low 4.2-5.4 [facility] Comment on above: Performed By: #### L 3300.6400, L100.0100, L501.9520, L500.4050 ####[facility] [address] [place], [address] RDW SD 43.3 fl Normal 35.1-43.9 [facility] Comment on above: Performed By: #### L 3300.6400, L100.0100, L501.9520, L500.4050 ####[facility] [address] [place], [address] WBC (Bld) [#/Vol] 8.5 10*3/uL Normal 4.4-11.0 [facility] Comment on above: Performed By: #### L 3300.6400, L100.0100, L501.9520, L500.4050 ####[facility] [address] [place], [address] Carbon dioxide, total [Moles /volume] in Central venous bloodOrdered By: Sabrina Duran on 01-22-2025 CO2 [Moles/Vol] 24.5 mmol/L 21.0-32.0 [facility] Chloride assayOrdered By: Lupe Duran on 01-22-2025 Chloride [Moles/Vol] 103 mmol/L 98-108 [facility] Comprehensive Metabolic Prof ilon 01-22-2025 Albumin [Mass/Vol] 3.4 g/dL Normal 3.4-4.8 [facility] Comment on above: Performed By: #### L 3300.6400, L100.0100, L501.9520, L500.4050 ####[facility] [address] [place], [address] Albumin/Globulin [Mass ratio] 0.8 {ratio} Low 0.9-2.4 [facility] Comment on above: Performed By: #### L 3300.6400, L100.0100, L501.9520, L500.4050 ####[facility] [address] [place], [address] ALK PHOS 84 U/L Normal 35-104 [facility] Comment on above: Performed By: #### L 3300.6400, L100.0100, L501.9520, L500.4050 ####[facility] [address] [place], [address] ALT [Catalytic activity/Vol] 10 U/L Normal <=34 [facility] Comment on above: Performed By: #### L 3300.6400, L100.0100, L501.9520, L500.4050 ####[facility] [address] [place], [address] AST [Catalytic activity/Vol] 14 U/L Normal <=31 [facility] Comment on above: Performed By: #### L 3300.6400, L100.0100, L501.9520, L500.4050 ####[facility] [address] [place], [address] Bilirubin [Mass/Vol] 0.49 mg/dL Normal 0.00-1.30 [facility] Comment on above: Performed By: #### L 3300.6400, L100.0100, L501.9520, L500.4050 ####[facility] [address] [place], [address] BUN/CRE 18.3 RATIO Normal 10-20 [facility] Comment on above: Performed By: #### L 3300.6400, L100.0100, L501.9520, L500.4050 ####[facility] [address] [place], [address] Calcium [Mass/Vol] 8.7 mg/dL Normal 7.6-11.0 [facility] Comment on above: Performed By: #### L 3300.6400, L100.0100, L501.9520, L500.4050 ####[facility] [address] [place], [address] Chloride [Moles/Vol] 103 mmol/L Normal 98-108 [facility] Comment on above: Performed By: #### L 3300.6400, L100.0100, L501.9520, L500.4050 ####[facility] [address] [place], [address] CO2 [Moles/Vol] 24.5 mmol/L Normal 21.0-32.0 [facility] Comment on above: Performed By: #### L 3300.6400, L100.0100, L501.9520, L500.4050 ####[facility] [address] [place], [address] Creatinine [Mass/Vol] 1.54 mg/dL High 0.70-1.20 [facility] Comment on above: Performed By: #### L 3300.6400, L100.0100, L501.9520, L500.4050 ####[facility] [address] [place], [address] GAP 12 Normal 5-15 [facility] Comment on above: Performed By: #### L 3300.6400, L100.0100, L501.9520, L500.4050 ####[facility] [address] [place], [address] GFR/1.73 sq M.predicted among non-blacks MDRD (S/P/Bld) [Vol rate/Area] 38 mL/min/{1.73_m2} Low >60 [facility] Comment on above: Result Comment: mL/m in/1.73m2 CKD-EPI Creatinine Equation (2020) Performed By: #### L 3300.6400, L100.0100, L501.9520, L500.4050 ####[facility] [address] [place], [address] Globulin (S) [Mass/Vol] 4.3 g/dL High 2.2-4.2 [facility] Comment on above: Performed By: #### L 3300.6400, L100.0100, L501.9520, L500.4050 ####[facility] [address] [place], [address] Glucose [Mass/Vol] 101 mg/dL High 70-99 [facility] Comment on above: Performed By: #### L 3300.6400, L100.0100, L501.9520, L500.4050 ####[facility] [address] [place], [address] Potassium [Moles/Vol] 4.1 mmol/L Normal 3.3-5.1 [facility] Comment on above: Performed By: #### L 3300.6400, L100.0100, L501.9520, L500.4050 ####[facility] [address] [place], [address] Sodium [Moles/Vol] 140 mmol/L Normal 133-145 [facility] Comment on above: Performed By: #### L 3300.6400, L100.0100, L501.9520, L500.4050 ####[facility] [address] [place], [address] T PROT 7.7 g/dL Normal 5.9-8.4 [facility] Comment on above: Performed By: #### L 3300.6400, L100.0100, L501.9520, L500.4050 ####[facility] [address] [place], [address] Urea nitrogen [Mass/Vol] 28 mg/dL High 4-19 [facility] Comment on above: Performed By: #### L 3300.6400, L100.0100, L501.9520, L500.4050 ####[facility] [address] [place], [address] Eosinophil percentageOrdered By: Sabrina Duran on 01-22-2025 Eosinophils/100 WBC (Bld) 1.5 % 0-5 [facility] Erythrocyte distribution wid th ratioOrdered By: Sabrina Duran on 01-22-2025 Erythrocyte distribution width (RBC) [Ratio] 16.8 % High 11.6-14.6 [facility] Erythrocyte distribution wid th standard deviationOrdered By: Sabrina Duran on 01-22-2025 Erythrocyte distribution width (RBC) [Ratio] 43.3 fl 35.1-43.9 [facility] Glomerular filtration rate ( GFR) estimation/1.73 sq m using serum, plasma, or whole bOrdered By: Sabrina Duran on 01-22-2025 GFR/1.73 sq M.predicted among non-blacks MDRD (S/P/Bld) [Vol rate/Area] 38 mL/min/{1.73_m2} Low >60 [facility] Comment on above: mL/min/1.73m2 CKD-EP I Creatinine Equation (2020) Hematocrit Auto (Bld) [Volum e fraction]Ordered By: Sabrina Duran on 01-22-2025 Hematocrit (Bld) [Volume fraction] 25.7 % Low 37-47 [facility] Hemoglobin measurementOrdere d By: Sabrina Duran on 01-22-2025 Hemoglobin (Bld) [Mass/Vol] 7.6 g/dL Low 12.0-15.0 [facility] Immature granulocytes/100 WB C Auto (Bld)Ordered By: Sabrina Duran on 01-22-2025 Immature granulocytes/100 WBC (Bld) 0.400 % 0.0-0.9 [facility] Comment on above: IG% - Immature Granu locytes (promyelocytes, myelocytes and metamyelocytes) > 1% indicates that a LEFT SHIFT is Present. Laboratory - Chemistry and C hemistry - challengeOrdered By: Sabrina Duran on 01-22-2025 AST [Catalytic activity/Vol] 14 U/L <32 [facility] MCV (mean corpuscular volume ) determinationOrdered By: Sabrina Duran on 01-22-2025 MCV (RBC) [Entitic vol] 71.8 fL Low 81-99 [facility] Mean corpuscular hemoglobin (MCH) determinationOrdered By: Sabrina Duran on 01-22-2025 MCH (RBC) [Entitic mass] 21.2 pg Low 27.0-32.0 [facility] Mean corpuscular hemoglobin concentration (MCHC) determinationOrdered By: Sabrina Duran on 01-22-2025 MCHC (RBC) [Mass/Vol] 29.6 g/dL Low 32-36 [facility] Mean platelet volume determi nationOrdered By: Sabrina Duran on 01-22-2025 Platelet mean volume (Bld) [Entitic vol] 10.1 fL 6.2-12.0 [facility] Monocyte percentageOrdered B y: Sabrina Duran on 01-22-2025 Monocytes/100 WBC (Bld) 7.2 % 0-10 [facility] Neutrophil percentageOrdered By: Sabrina Duran on 01-22-2025 Neutrophils/100 WBC (Bld) 71.5 % High 47-70 [facility] Nucleated red blood cell per centageOrdered By: Sabrina Duran on 01-22-2025 Nucleated RBC/100 WBC (Bld) [Ratio] 0 % 0-5 [facility] Platelet countOrdered By: Lupe Duran on 01-22-2025 Platelets (Bld) [#/Vol] 577 10*3/uL High 150-450 [facility] Potassium measurement (mass/ volume)Ordered By: Sabrina Duran on 01-22-2025 Potassium (Unsp spec) [Mass/Vol] 4.1 mmol/L 3.3-5.1 [facility] RBC Auto (Bld) [#/Vol]Ordere d By: Sabrina Duran on 01-22-2025 RBC (Bld) [#/Vol] 3.58 10*6/uL Low 4.2-5.4 [facility] Serum creatinine measurement (mass/volume)Ordered By: Sabrina Duran on 01-22-2025 Creatinine [Mass/Vol] 1.54 mg/dL High 0.70-1.20 [facility] Serum globulin measurementOr dered By: Sabrina Duran on 01-22-2025 Globulin (S) [Mass/Vol] 4.3 g/dL High 2.2-4.2 [facility] Serum glucose measurement (m ass/volume)Ordered By: Sabrina Duran on 01-22-2025 Glucose [Mass/Vol] 101 mg/dL High 70-99 [facility] Serum or plasma alanine sosa otransferase (ALT) measurementOrdered By: Sabrina Duran on 01-22-2025 ALT [Catalytic activity/Vol] 10 U/L <35 [facility] Serum or plasma albumin suresh urement (mass/volume)Ordered By: Sabrina Duran on 01-22-2025 Albumin [Mass/Vol] 3.4 g/dL 3.4-4.8 [facility] Serum or plasma albumin/glob ulin mass ratioOrdered By: Sabrina Duran on 01-22-2025 Albumin/Globulin [Mass ratio] 0.8 {ratio} Low 0.9-2.4 [facility] Serum or plasma alkaline [place] sphatase measurementOrdered By: Sabrina Duran on 01-22-2025 ALP [Catalytic activity/Vol] 84 U/L 35-104 [facility] Serum or plasma calcium suresh urement (mass/volume)Ordered By: Sabrina Duran on 01-22-2025 Calcium [Mass/Vol] 8.7 mg/dL 7.6-11.0 [facility] Serum or plasma urea nitroge n measurement (mass/volume)Ordered By: Sabrina Duran on 01-22-2025 Urea nitrogen [Mass/Vol] 28 mg/dL High 4-19 [facility] Serum prealbumin measurement by immunoassayOrdered By: Sabrina Duran on 01-22-2025 Prealbumin [Mass/Vol] 14 mg/dL 10-36 [facility] Comment on above: Performed at: [address] [id number] Director: Parag Richard PhD, Phone: [phone] Sodium levelOrdered By: Sabrina Duran on 01-22-2025 Sodium [Moles/Vol] 140 mmol/L 133-145 [facility] TSH DL <= 0.005 mIU/L QnOrde red By: Sabrina Duran on 01-22-2025 TSH Qn 2.100 uIU/mL 0.300-4.20 0 [facility] Thyroid Stim Hormone (TSH)on 01-22-2025 TSH 2.100 uIU/mL Normal 0.300-4.20 0 [facility] Comment on above: Performed By: #### L 3300.6400, L100.0100, L501.9520, L500.4050 ####[facility] [address] [place], [address] Total proteinOrdered By: Maria Del Carmen Duran on 01-22-2025 Protein [Mass/Vol] 7.7 g/dL 5.9-8.4 [facility] White blood cell (WBC) count Ordered By: Sabrina Duran on 01-22-2025 WBC (Bld) [#/Vol] 8.5 10*3/uL 4.4-11.0 [facility] Absolute lymphocyte countOrd ered By: Sabrina Duran on 01-19-2024 Lymphocytes Auto (Unsp spec) [#/Vol] 1.04 10*3/uL 0.83-4.51 [facility] Automated lymphocyte count a s percentage of total leukocytesOrdered By: Sabrina Duran on 01-19-2024 Lymphocytes/100 WBC Auto (Unsp spec) 10.5 % 19-41 [facility] Basophil percentageOrdered B y: Sabrina Duran on 01-19-2024 Basophils/100 WBC (Bld) 0.5 % 0-1 [facility] Bilirubin [Mass/Vol] 0.50 mg/dL 0.20-1.00 [facility] Comment on above: For patients on eltr ombopag therapy, use of Dimension [place] TBIL is not recommended. Chloride [Moles/Vol] 105 mmol/L 98-107 [facility] Eosinophils/100 WBC (Bld) 0.9 % 0-5 [facility] Glucose [Mass/Vol] 102 mg/dL 74-106 [facility] Comment on above: Fasting Glucose resu lt from 100 to 125 mg/dL suggests IMPAIRED HOMEOSTASIS per A.D.A. criteria. Hemoglobin (Bld) [Mass/Vol] 13.0 g/dL 12.0-15.0 [facility] Monocytes/100 WBC (Bld) 5.1 % 0-10 [facility] Neutrophils (Bld) [#/Vol] 8.2 10*3/uL 2.0-7.7 [facility] Neutrophils/100 WBC (Bld) 82.7 % 47-70 [facility] Potassium [Moles/Vol] 4.3 mmol/L 3.5-5.1 [facility] Protein [Mass/Vol] 8.0 g/dL 6.4-8.2 [facility] Sodium [Moles/Vol] 136 mmol/L 136-145 [facility] WBC (Bld) [#/Vol] 10.0 10*3/uL 4.4-11.0 [facility] Determination of erythrocyte mean corpuscular volume (MCV)Ordered By: Sabrina Duran on 01-19-2024 MCV (RBC) [Entitic vol] 84.0 fL 81-99 [facility] Erythrocyte distribution wid th ratioOrdered By: Sabrina Duran on 01-19-2024 Erythrocyte distribution width (RBC) [Ratio] 13.2 % 11.6-14.6 [facility] Erythrocyte distribution wid th standard deviationOrdered By: Sabrina Duran on 01-19-2024 Erythrocyte distribution width (RBC) [Entitic vol] 40.4 fL 35.1-43.9 [facility] Hematocrit Auto (Bld) [Volum e fraction]Ordered By: Sabrina Duran on 01-19-2024 Hematocrit (Bld) [Volume fraction] 41.4 % 37-47 [facility] Immature granulocytes/100 WB C Auto (Bld)Ordered By: Sabrina Duran on 01-19-2024 Immature granulocytes/100 WBC (Bld) 0.300 % 0.0-0.9 [facility] Comment on above: IG% - Immature Granu locytes (promyelocytes, myelocytes and metamyelocytes) > 1% indicates that a LEFT SHIFT is Present. Laboratory - Chemistry and C hemistry - challengeOrdered By: Sabrina Duran on 01-19-2024 Albumin/Globulin [Mass ratio] 0.5 {ratio} 0.9-2.4 [facility] ALP [Catalytic activity/Vol] 90 U/L 45-117 [facility] ALT [Catalytic activity/Vol] 17 U/L 13-56 [facility] CO2 [Moles/Vol] 26.0 mmol/L 21.0-32.0 [facility] Globulin (S) [Mass/Vol] 5.4 g/dL 2.2-4.2 [facility] Urea nitrogen/Creatinine [Mass ratio] 18.5 mg/mg 10-20 [facility] Laboratory - Hematology and Cell countsOrdered By: Sabrina Duran on 01-19-2024 MCH (RBC) [Entitic mass] 26.4 pg 27.0-32.0 [facility] MCHC (RBC) [Mass/Vol] 31.4 g/dL 32-36 [facility] Nucleated RBC/100 WBC (Bld) [Ratio] 0 % 0-5 [facility] Platelet mean volume (Bld) [Entitic vol] 10.1 fL 6.2-12.0 [facility] Platelets (Bld) [#/Vol] 461 10*3/uL 150-450 [facility] No Panel InformationOrdered By: Sabrina Duran on 01-19-2024 Estimated GFR (MDRD) Amer 54 mL/min >60 [facility] Comment on above: GFR Calc Estimated GFR (MDRD) Non-Af Amer 44 mL/min >60 [facility] Comment on above: Non- GFR Calc RBC Auto (Bld) [#/Vol]Ordere d By: Sabrina Durna on 01-19-2024 RBC (Bld) [#/Vol] 4.93 10*6/uL 4.2-5.4 [facility] Serum or plasma calcium suresh urement (mass/volume)Ordered By: Sabrina Duran on 01-19-2024 Calcium [Mass/Vol] 8.7 mg/dL 8.5-10.1 [facility] Serum or plasma creatinine m easurement (mass/volume)Ordered By: Sabrina Duran on 01-19-2024 Creatinine [Mass/Vol] 1.30 mg/dL 0.55-1.02 [facility] Comment on above: The validity of the calculated GFR & GFRAA in patients over 70 years has not been determined. Clinical correlation is essential. Serum or plasma thyroid stim ulating hormone (TSH) measurement (units/volume)Ordered By: Sabrina Duran on 01-19-2024 TSH Qn 1.71 uIU/mL 0.358-3.74 [facility] Serum or plasma urea nitroge n measurement (mass/volume)Ordered By: Sabrina Duran on 01-19-2024 Urea nitrogen [Mass/Vol] 24 mg/dL 7-18 [facility] Thin prep Papanicolaou smear with manual screeningOrdered By: Sabrina Duran on 01-19-2024 Thin prep Papanicolaou smear with manual screening 2.6 g/dL 3.2-5.0 [facility] Thin prep Papanicolaou smear with manual screening 20 U/L 15-37 [facility] Thin prep Papanicolaou smear with manual screening 5 5-15 [facility] Basophil percentageOrdered B y: Sabrina Duran on 07-19-2023 Bilirubin [Mass/Vol] 0.40 mg/dL 0.20-1.00 [facility] Comment on above: For patients on eltr ombopag therapy, use of Dimension [place] TBIL is not recommended. Chloride [Moles/Vol] 110 mmol/L 98-107 [facility] Glucose [Mass/Vol] 97 mg/dL 74-106 [facility] Potassium [Moles/Vol] 4.4 mmol/L 3.5-5.1 [facility] Protein [Mass/Vol] 7.5 g/dL 6.4-8.2 [facility] Sodium [Moles/Vol] 134 mmol/L 136-145 [facility] Laboratory - Chemistry and C hemistry - challengeOrdered By: Sabrina Duran on 07-19-2023 ALP [Catalytic activity/Vol] 88 U/L 45-117 [facility] ALT [Catalytic activity/Vol] 22 U/L 13-56 [facility] CO2 [Moles/Vol] 27.0 mmol/L 21.0-32.0 [facility] Globulin (S) [Mass/Vol] 4.4 g/dL 2.2-4.2 [facility] Urea nitrogen/Creatinine [Mass ratio] 20.2 mg/mg 10-20 [facility] No Panel InformationOrdered By: Sabrina Duran on 07-19-2023 Estimated GFR (MDRD) Amer 60 mL/min >60 [facility] Comment on above: GFR Calc Estimated GFR (MDRD) Non-Af Amer 49 mL/min >60 [facility] Comment on above: Non- GFR Calc Serum or plasma albumin suresh urement (mass/volume)Ordered By: Sabrina Duran on 07-19-2023 Albumin [Mass/Vol] 3.1 g/dL 3.2-5.0 [facility] Serum or plasma albumin/glob ulin mass ratioOrdered By: Sabrina Duran on 07-19-2023 Albumin/Globulin [Mass ratio] 0.7 {ratio} 0.9-2.4 [facility] Serum or plasma calcium suresh urement (mass/volume)Ordered By: Sabrina Duran on 07-19-2023 Calcium [Mass/Vol] 8.5 mg/dL 8.5-10.1 [facility] Serum or plasma creatinine m easurement (mass/volume)Ordered By: Sabrina Duran on 07-19-2023 Creatinine [Mass/Vol] 1.19 mg/dL 0.55-1.02 [facility] Comment on above: The validity of the calculated GFR & GFRAA in patients over 70 years has not been determined. Clinical correlation is essential. Serum or plasma urea nitroge n measurement (mass/volume)Ordered By: Sabrina Duran on 07-19-2023 Urea nitrogen [Mass/Vol] 24 mg/dL 7-18 [facility] Thin prep Papanicolaou smear with manual screeningOrdered By: Sabrina Duran on 07-19-2023 Thin prep Papanicolaou smear with manual screening 22 U/L 15-37 [facility] Thin prep Papanicolaou smear with manual screening -3 5-15 [facility] Vital Signs Date Time Vital Sign Value Performing Clinician Facility 06-29-2025 09:03-0400 Body temperature 98.1 [degF] Shady Amado MD Work Phone: [facility] 06-29-2025 09:03-0400 Diastolic blood pressure 78 mm[Hg] Shady Amado MD Work Phone: [facility] 06-29-2025 09:03-0400 Heart rate 75 /min Shady Amado MD Work Phone: [facility] 06-29-2025 09:03-0400 Respiratory rate 14 /min Shady Amado MD Work Phone: [facility] 06-29-2025 09:03-0400 SaO2% (BldA) [Mass fraction] 99 % Shady Amado MD Work Phone: [facility] 06-29-2025 09:03-0400 Systolic blood pressure 119 mm[Hg] Shady Amado MD Work Phone: [facility] 06-28-2025 05:27-0400 Body mass index (BMI) [Ratio] 26.01 kg/m2 Shady Amado MD Work Phone: [facility] 06-28-2025 05:27-0400 Body weight 70.9 kg Shady Amado MD Work Phone: [facility] 06-22-2025 09:08-0400 SaO2% (BldA) [Mass fraction] 95.9 % Shady Amado MD Work Phone: [facility] 06-20-2025 12:57-0400 Body height 165.1 cm Shady Amado MD Work Phone: [facility] 06-17-2025 17:49-0400 SaO2% (BldA) [Mass fraction] 94.7 % Shady Amado MD Work Phone: [facility] 06-11-2025 21:02-0400 Heart rate 107 /min Dr. Sabrina Duran DO Work Phone: [facility] 06-11-2025 20:58-0400 Body temperature 97.8 [degF] Dr. Sabrina Duran DO Work Phone: [facility] 06-11-2025 20:58-0400 Diastolic blood pressure 75 mm[Hg] Dr. Sabrina Duran DO Work Phone: [facility] 06-11-2025 20:58-0400 Inhaled oxygen flow rate 2 L/min Dr. Sabrina Duran DO Work Phone: [facility] 06-11-2025 20:58-0400 Respiratory rate 18 /min Dr. Sabrina Duran DO Work Phone: [facility] 06-11-2025 20:58-0400 SaO2% (BldA) [Mass fraction] 96 % Dr. Sabrina Duran DO Work Phone: [facility] 06-11-2025 20:58-0400 Systolic blood pressure 116 mm[Hg] Dr. Sabrina Duran DO Work Phone: [facility] 06-11-2025 05:31-0400 Body mass index (BMI) [Ratio] 29 kg/m2 Dr. Sabrina Duran DO Work Phone: [facility] 06-11-2025 05:31-0400 Body weight [address] Sabrina Duran DO Work Phone: [facility] 06-10-2025 00:27-0400 Inhaled oxygen concentration 50 % Dr. Sabrina Duran DO Work Phone: [facility] 06-08-2025 11:11-0400 Body height 165.[address] Sabrina Duran DO Work Phone: [facility] 05-21-2025 12:00-0400 Diastolic blood pressure 58 mm[Hg] Dr. Sabrina Duran DO Work Phone: [facility] 05-21-2025 12:00-0400 Heart rate 103 /min Dr. Sabrina Duran DO Work Phone: [facility] 05-21-2025 12:00-0400 Inhaled oxygen flow rate 15 L/min Dr. Sabrina Duran DO Work Phone: [facility] 05-21-2025 12:00-0400 SaO2% (BldA) [Mass fraction] 95 % Dr. Sabrina Duran DO Work Phone: [facility] 05-21-2025 12:00-0400 Systolic blood pressure 93 mm[Hg] Dr. Sabrina Duran DO Work Phone: [facility] 05-21-2025 11:50-0400 Body temperature 97.8 [degF] Dr. Sabrina Duran DO Work Phone: [facility] 05-21-2025 11:50-0400 Respiratory rate 34 /min Dr. Sabrina Duran DO Work Phone: [facility] 05-21-2025 09:20-0400 Body height 165.[address] Sabrina Duran DO Work Phone: [facility] 05-21-2025 09:20-0400 Body mass index (BMI) [Ratio] 30.7 kg/m2 Dr. Sabrina Duran DO Work Phone: [facility] 05-21-2025 09:20-0400 Body weight 83.[address] Sabrina Duran DO Work Phone: [facility] Encounters Encounter Date Encounter Type Care Provider Facility Start: 07-30-2025 ambulatory [facility] Facility:[facility] Start: 07-01-2025 End: 07-31-2025 Telephone encounter Rosamaria Ocampo CNP Work Phone: [facility] Cardiology [facility] Comment on above: Appointment Request Start: 06-27-2025 End: 07-02-2025 Telephone encounter Rafy Patrick DO Work Phone: [facility] Lung Nodule [facility] Start: 06-25-2025 ambulatory NONE PHYSICIAN Facility :[facility] Start: 06-25-2025 End: 06-25-2025 Telephone encounter Mayra Ladd DO Work Phone: [facility] Nod[facility] Comment on above: Care Coordination Start: 06-11-2025 End: 06-29-2025 Evaluation and management of inpatient Shady Amado MD Work Phone: [facility] Surgical [facility] Start: 06-11-2025 Dr. Ziggy Shelton MD -[facility] Inpatient Physicians Work Phone: Start: 06-10-2025 End: 06-10-2025 Documentation procedure Gerry Malik MD Work Phone: [facility] Start: 06-10-2025 Dr. Ziggy Shelton MD -[facility] Inpatient Physicians Work Phone: Start: 06-09-2025 Dr. Hiren Sanders MD [facility] Inpatient [facility] Work Phone: Start: 06-08-2025 Dr. Hiren Sanders MD [facility] Work Phone: Start: 06-07-2025 Dr. Hiren Sanders MD [facility] Work Phone: Start: 06-06-2025 Dr. Eloisa ayers MD [facility] Start: 06-06-2025 Dr. Hiren Sanders MD [facility] In[facility] Work Phone: Start: 06-05-2025 Dr. Hiren Sanders MD [facility] Work Phone: Start: 06-05-2025 Dr. Julian Monsivais DO [facility] Start: 06-05-2025 Dr. Eloisa ayers MD [facility] Start: 06-04-2025 Dr. Eloisa ayers MD [facility] Start: 06-04-2025 Dr. Irena Jameson MD [facility] Inpatient Physicians Work Phone: Start: 06-03-2025 Dr. Puja Almeida MD [facility] Start: 06-03-2025 Dr. Yanet Zhou MD [facility] Work Phone: Start: 06-02-2025 Dr. Yanet Zhou MD [facility] Work Phone: Start: 06-02-2025 Dr. Eloisa ayers MD [facility] Start: 06-01-2025 Dr. Eloisa ayers MD -[facility] Start: 06-01-2025 Dr. Yanet Zhou MD [facility] Work Phone: Start: 05-31-2025 Dr. Yanet Zhou MD - [facility] Work Phone: Start: 05-30-2025 Nayely FARLEY - [facility] Start: 05-29-2025 Dr. Yanet Zhou MD [facility] In[facility] Work Phone: Start: 05-28-2025 Dr. Yanet Zhou MD [facility] Work Phone: Start: 05-28-2025 Dr. Julian Monsivais DO -[facility] Start: 05-27-2025 Dr. Matt Acevedo DO -[facility] Work Phone: Start: 05-26-2025 Dr. Matt Acevedo DO -[facility] Work Phone: Start: 05-25-2025 Dr. Julian Monsivais DO -[facility] Start: 05-24-2025 Dr. Matt Acevedo DO -[facility] Work Phone: Start: 05-24-2025 Dr. Julian Monsivais DO -[facility] Start: 05-23-2025 Dr. Matt Acevedo DO -[facility] Work Phone: Start: 05-22-2025 ambulatory [facility] Start: 05-22-2025 Jeffery Mcrae -[facility] Start: 05-22-2025 Dr. Matt Acevedo DO -[facility] Work Phone: Start: 05-22-2025 Dr. Julian Monsivais DO -[facility] Start: 05-21-2025 Jefferyfady Mcrae [facility] Start: 05-21-2025 Dr. Matt Acevedo DO -[facility] Work Phone: Start: 05-21-2025 Dr. Julian Monsivais DO -[facility] Start: 05-21-2025 End: 06-11-2025 Evaluation and management of inpatient Dr. Matt Acevedo DO -Intensive Care Unit Work Phone: Start: 05-21-2025 ambulatory Matt Acevedo Facility:[facility] Start: 05-21-2025 End: 06-11-2025 Dr. Ziggy Shelton MD -Progressive Care Unit Work Phone: Start: 01-25-2025 Encounter for genera l adult medical examination without abnormal findings [facility] Start: 01-25-2025 ambulatory [facility] Facility:[facility] Start: 01-22-2025 End: 01-22-[address] Sabrina Duran DO -Laboratory Suhas Mast [facility] Start: 01-22-2025 End: 01-22-2025 ambulatory [facility] Facility:[facility] Start: 01-19-2024 End: 01-19-2024 ambulatory [facility] Work Phone: Start: 01-19-2024 End: 01-19-2024 Patient encounter procedure [facility]-LaboratorySuhas [facility] Start: 07-19-2023 End: 07-19-2023 ambulatory [facility] Work Phone: Start: 07-19-2023 End: 07-19-2023 Patient encounter procedure [facility]-LaboratorySuhas [facility] Procedures Date Procedure Procedure Detail Performing Clinician Start: 06-29-2025 Basic metabolic panel calcium total Catherine Neopaney DO Work Phone: Start: 06-28-2025 End: 06-28-2025 Dilation & curettage cervical stump David Ortega MD Work Phone: Start: 06-28-2025 End: 06-28-2025 Insertion intrauterine device iud David Ortega MD Work Phone: Start: 06-28-2025 OXYGEN THERAPY Brit Santiago MD Work Phone: Start: 06-28-2025 Basic metabolic panel calcium total Catherine Neopaney DO Work Phone: Start: 06-27-2025 OXYGEN THERAPY Brit Santiago MD Work Phone: Start: 06-27-2025 Ecg routine ecg w/least 12 lds trcg only w/o i&r Rubio Mullins MD Work Phone: Start: 06-27-2025 OXYGEN THERAPY Brit Santiago MD Work Phone: Start: 06-27-2025 OXYGEN THERAPY Brit Santiago MD Work Phone: Start: 06-27-2025 Basic metabolic panel calcium total Catherine Neopaney DO Work Phone: Start: 06-26-2025 Basic metabolic panel calcium total Catherine Neopaney DO Work Phone: Start: 06-25-2025 Antibody screen RUBIO MARISABEL Comment on above: Order Comment: Preparation for surgery t his afternoon Performed By: #### L [id number] ####Documentation Writer: NADIA FRENCH ([id number])[facility] ([address] Start: 06-25-2025 Blood typing serologic abo Dee Tejeadmo nd INTERNIST - [employer]CRETE [employer]M SETTER Work Phone: Start: 06-25-2025 Ct thorax w/o contrast material Rafy Louie Darnell DO Work Phone: Start: 06-25-2025 C-reactive protein Rafy Louie Darnell DO Work Phone: Start: 06-25-2025 Natriuretic peptide Brit Santiago MD Work Phone: Start: 06-25-2025 Radiologic exam chest 2 views Kvng floyd MD Work Phone: Start: 06-25-2025 Basic metabolic panel calcium total Catherine Neopaney DO Work Phone: Start: 06-24-2025 Basic metabolic panel calcium total Catherine Neopaney DO Work Phone: Start: 06-24-2025 Blood count complete auto&auto difrntl wbc Catherine Neopaney DO Work Phone: Start: 06-23-2025 Radiologic exam chest single view Caron ine Yue DO Work Phone: Start: 06-23-2025 Basic metabolic panel calcium total Catherine Neopaney DO Work Phone: Start: 06-22-2025 Smr prim src gram/giemsa stain bct fungi/cell Chase Pendleton MD Work Phone: Start: 06-22-2025 Radiologic exam chest single view Chase Pendleton MD Work Phone: Start: 06-22-2025 Blood gases any combination ph pco2 po2 co2 hco3 Waqas Yue DO Work Phone: Start: 06-22-2025 Basic metabolic panel calcium total Catherine Neopaney DO Work Phone: Start: 06-21-2025 Basic metabolic panel calcium total Catherine Neopaney DO Work Phone: Start: 06-20-2025 Radiologic exam chest single view Catherine N eopaney DO Work Phone: Start: 06-20-2025 Creatinine other source Catherine Neopaney DO Work Phone: Start: 06-20-2025 Basic metabolic panel calcium total Catherine Neopaney DO Work Phone: Start: 06-20-2025 Manual Differential panel - Blood Liban Franklin MD Work Phone: Start: 06-19-2025 Radiologic exam chest single view Brenton Jalloh MD Work Phone: Start: 06-19-2025 Blood count hematocrit Miguelina Nicole MD Work Phone: Start: 06-19-2025 Compatibility each unit electronic Miguelina Nicole MD Work Phone: Start: 06-19-2025 End: 06-19-2025 TRANSFUSE RED BLOOD CELLS Miguelina Nicole MD Work Phone: Start: 06-19-2025 Antibody screen RUBIO SANDERS Comment on above: Performed By: #### [id number] ####Medical Di ozzie: NADIA FRENCH ([id number])[facility] ([facility])[address] [place] [address] Start: 06-19-2025 Comprehensive metabolic panel Liban Neumann MD Work Phone: Start: 06-19-2025 End: 06-19-2025 Drug screen quantitative vancomycin Sy Bloom MD Work Phone: Start: 06-18-2025 Smr prim src gram/giemsa stain bct fungi/cell Sy Bloom MD Work Phone: Start: 06-18-2025 Respiratory pathogens DNA and RNA panel - Lower respiratory specimen by HESHAM with non-probe detection Sy Bloom MD Work Phone: Start: 06-18-2025 Iadna s aureus methicillin resist amp probe tq Sy Bloom MD Work Phone: Start: 06-18-2025 TTE w or wo fol wcon,Doppler Norman holley MD Work Phone: Start: 06-18-2025 Respiratory pathogens DNA and RNA panel - Nasopharynx by HESHAM with non-probe detection Sy Bloom MD Work Phone: Start: 06-18-2025 Comprehensive metabolic panel Liban Neumann MD Work Phone: Start: 06-17-2025 C-reactive protein Mayra Ladd DO Work Phone: Start: 06-17-2025 Natriuretic peptide Mayra Ladd DO Work Phone: Start: 06-17-2025 Comprehensive metabolic panel Sy Bloom MD Work Phone: Start: 06-17-2025 Bacteria identified in Blood by Culture Sy Bloom MD Work Phone: Start: 06-17-2025 Blood gases any combination ph pco2 po2 co2 hco3 Sy Bloom MD Work Phone: Start: 06-17-2025 Ecg routine ecg w/least 12 lds trcg only w/o i&r Sy Bloom MD Work Phone: Start: 06-17-2025 Ct angiography chest w/contrast/noncontrast Norman Fleming MD Work Phone: Start: 06-17-2025 Comprehensive metabolic panel Liban Neumann MD Work Phone: Start: 06-16-2025 Comprehensive metabolic panel Liban Neumann MD Work Phone: Start: 06-15-2025 Comprehensive metabolic panel Liban Neumann MD Work Phone: Start: 06-14-2025 Comprehensive metabolic panel Liban Neumann MD Work Phone: Start: 06-13-2025 Radiologic exam swallow function contrast study Liban Franklin MD Work Phone: Start: 06-13-2025 Comprehensive metabolic panel Liban Neumann MD Work Phone: Start: 06-12-2025 Radiologic exam chest single view Liban Franklin MD Work Phone: Start: 06-12-2025 Blood count complete auto&auto difrntl wbc Navi Roberts MD Work Phone: Start: 06-12-2025 Antibody screen RUBIO SANDERS Comment on above: Performed By: #### [id number] ####Medical Di ozzie: NADIA FRENCH ([id number])[facility] [facility] ([facility])[address] [place] [address] Start: 06-12-2025 ABO and Rh group [Type] in Blood by Confirmatory method Navi Roberts MD Work Phone: Start: 06-12-2025 Blood typing serologic abo Navi ames MD Work Phone: Start: 06-12-2025 Comprehensive metabolic panel Navi dangelo MD Work Phone: Start: 06-12-2025 Manual Differential panel - Blood Navi Roberts MD Work Phone: Start: 06-12-2025 Ecg routine ecg w/least 12 lds trcg only w/o i&r Navi Roberts MD Work Phone: Start: 06-11-2025 Blood count smear mcrscp w/mnl difrntl wbc count Dr. Sabrina Duran DO Work Phone: Start: 06-11-[address] Sabrina Duran DO Work Phone: Start: 06-11-2025 Mean corpuscular hemoglobin concentration determination Dr. Sabrina Duran DO Work Phone: Start: 06-11-2025 Nucleated red blood cell count procedure Dr. Sabrina Duran DO Work Phone: Start: 06-11-2025 Platelet mean volume determination Dr. Jama Duran DO Work Phone: Start: 06-10-2025 Serum inorganic phosphate measurement Dr. Sabrina Duran DO Work Phone: Start: 06-06-2025 Red blood cell morphology Dr. Sabrina Duran DO Work Phone: Start: 06-05-2025 CT angiography of chest with contrast Dr. Sabrina Duran DO Work Phone: Start: 06-02-[address] Sabrina Duran DO Work Phone: Start: 06-02-2025 Plain chest X-ray Dr. Sabrina Duran DO Work Phone: Start: 06-01-2025 Liquid based cervical cytology screening Dr. Sabrina Duran DO Work Phone: Start: 06-01-[address] Sabrina Duran D O Work Phone: Start: 05-29-[address] Sabrina Duran DO Work Phone: Start: 05-29-[address] Sabrina Duran DO Work Phone: Start: 05-29-[address] Sabrina Duran DO Work Phone: Start: 05-29-2025 Iadna-dna/rna gi pthgn multiplex probe tq 6-11 Dr. Sabrina Duran DO Work Phone: Start: 05-29-2025 Blood disorder - initial assessment Dr. Sabrina Duran DO Work Phone: Start: 05-28-2025 Plain chest X-ray Dr. Sabrina Duran DO Work Phone: Start: 05-24-2025 Plain chest X-ray Dr. Sabrina Duran DO Work Phone: Start: 05-24-2025 Carbon dioxide measurement, partial pressure Dr. Sabrina Duran DO Work Phone: Start: 05-24-2025 Gases blood o2 saturation only direct suresh Dr. Sabrina Duran DO Work Phone: Start: 05-24-2025 Measurement of partial pressure of oxygen in blood Dr. Sabrina Duran DO Work Phone: Start: 05-24-[address] Sabrina Duran DO Work Phone: Start: 05-23-2025 Plain chest X-ray Dr. Sabrina Duran DO Work Phone: Start: 05-22-[address] Sabrina hoyos DO Work Phone: Start: 05-22-2025 Plain chest X-ray Dr. Sabrina Duran DO Work Phone: Start: 05-21-2025 Urine microscopy: red cells Dr. Sabrina hazel DO Work Phone: Start: 05-21-2025 Urnls dip stick/tablet reagent auto microscopy Dr. Sabrina Duran DO Work Phone: Start: 05-21-2025 Venous oxygen saturation measurement Dr. Sabrina Duran DO Work Phone: Start: 05-21-2025 Complete ultrasound of kidneys and bladder Dr. Sabrina uDran DO Work Phone: Start: 05-21-2025 Plain chest X-ray Dr. Sabrina Duran DO Work Phone: Start: 05-21-[address] Sabrina Duran DO Work Phone: Start: 05-21-[address] Sabrina Duran DO Work Phone: Start: 05-21-[address] Sabrina chairez DO Work Phone: Start: 05-21-[address] Sabrina Duran DO Work Phone: Start: 05-21-[address] Sabrina Duran DO Work Phone: Start: 05-21-2025 Total iron binding capacity measurement Dr. Sabrina Duran DO Work Phone: Start: 05-21-2025 Calculation of international normalized ratio Dr. Sabrina Duran DO Work Phone: Start: 05-21-2025 Carbon dioxide measurement, partial pressure Dr. Sabrina Duran DO Work Phone: Start: 05-21-2025 Gases blood o2 saturation only direct suresh Dr. Sabrina Duran DO Work Phone: Start: 05-21-2025 Measurement of partial pressure of oxygen in blood Dr. Sabrina Duran DO Work Phone: Start: 05-21-[address] Sabrina Duran DO Work Phone: Start: 05-21-[address] Sabrina Duran DO Work Phone: Start: 05-21-2025 Plain chest X-ray Dr. Sabrina Duran DO Work Phone: Plan of Treatment Date Care Activity Detail Author Start: 06-29-2026 Creatinine measurement [facility] Start: 06-29-2026 Potassium measurement [facility] Start: 06-26-2026 Creatinine measurement Creatinine Level [facility] Start: 06-26-2026 Potassium measurement Potassium Level [facility] Start: 06-25-2026 Creatinine measurement Creatinine Level [facility] Start: 06-25-2026 Potassium measurement Potassium Level [facility] Start: 06-18-2026 Echocardiography Echocardiogram [facility] Start: 06-18-2026 [facility] Start: 06-28-2025 End: 06-28-2025 Dilation & curettage cervical stump DILATION AND CURETTAGE Endometrial cancer (HCC) 06/28/2025 12:00 PM EDT [facility] Operating Room Start: 06-28-2025 End: 06-28-2025 Evaluation and management of inpatient 06/28/2025 12:00 PM EDT - 06/28/2025 1:00 PM EDT Surgery [facility] MA[facility] OR [address] [place] [address] David Ortega MD [address] [address] DILATION AND CURETTAGE [96650 (CPT )] [facility] Comment on above: DILATION AND CURETTAGE [59443 (CPT )] Start: 06-28-2025 End: 06-28-2025 Insertion intrauterine device iud INSERTION, INTRAUTERINE DEVICE Endometrial cancer (HCC) 06/28/2025 12:00 PM EDT [facility] Operating Room Start: 06-26-2025 End: 06-26-2025 [facility] BRONCHOSCOPY, RIGID OR FLEXIBLE, WITHOUT ENDOBRONCHIAL ULTRASOUND Acute hypoxemic respiratory failure (HCC) Acute pneumonia 06/26/2025 2:30 PM EDT [facility] Gastroenterology Start: 06-26-2025 End: 06-26-2025 Evaluation and management of inpatient 06/26/2025 2:30 PM EDT - 06/26/2025 3:00 PM EDT Surgery [facility] Endoscopy [address] [place] [address] [phone] Mayra Ladd DO [address] [address] Inspection bronchoscopy with bronchoalveolar lavage. Possible endobronchial biopsies, needle aspiration, and brushings. [57954 (CPT ) +1 more] [facility] Comment on above: Inspection bronchoscopy with bronchoalve olar lavage. Possible endobronchial biopsies, needle aspiration, and brushings. [53980 (CPT ) +1 more] Start: 06-11-2025 Patient discharge [facility] Start: 06-11-2025 Patient discharge [facility] Start: 06-04-2025 Continuous pulse oximetry [facility] Start: 06-02-2025 Referral to chemical recovery operator [facility] Start: 06-02-2025 [facility] Start: 06-01-2025 Referral to online merchandising coordinator and cardboard cutter [facility] Start: 05-28-2025 COVID-19 Vaccine ( season) COVID-19 Vaccine () [facility] Start: 05-28-2025 Influenza vaccination Influenza Vaccine (#1) [facility] Start: 05-28-2025 [facility] Start: 05-28-2025 Dual pressure spontaneous ventilation support [facility] Start: 05-26-2025 Care planning and problem solving actions [facility] Start: 05-25-2025 Oxygen therapy [facility] Start: 05-25-2025 Speech therapy assessment [facility] Start: 05-21-2025 Application of intermittent pneumatic compression device [facility] Start: 05-21-2025 Following clinical pathway protocol [facility] Start: 05-21-2025 Consultation [facility] Start: 05-21-2025 Assessment of risk of venous thromboembolism [facility] Start: 05-21-2025 Insertion of catheter into peripheral vein [facility] Start: 05-21-2025 Measuring intake and output [facility] Start: 05-21-2025 Patient referral to dietitian [facility] Start: 05-21-2025 Providing care according to standard [facility] Start: 05-21-2025 Referral to gastroenterology service [facility] Start: 05-21-2025 Referral to occupational therapist [facility] Start: 05-21-2025 Referral to service [facility] Start: 05-21-2025 Vital signs measurements [facility] Start: 05-21-2025 Prothrombin time [facility] Start: 05-21-2025 End: 05-21-2025 [facility] Start: 05-21-2025 Verification routine [facility] Start: 05-21-2025 Admission procedure [facility] Start: 05-21-2025 Hospital admission, emergency, from emergency room, medical nature [facility] Start: 05-21-2025 Leukocyte reduced red blood cells [facility] Start: 05-21-2025 End: 05-21-2025 [facility] Start: 05-21-2025 End: 05-21-2025 Administration of blood product [facility] Start: 05-21-2025 Consultation [facility] Start: 05-21-2025 Patient referral to dietitian [facility] Start: 05-21-2025 [facility] Start: 2023 RSV Immunization for Adults (1 - Risk 60-74 years 1-dose series) RSV Immunization for Adults (1 - Risk 60-74 years 1-dose series) [facility] Start: 2023 [facility] Start: 2013 Zoster Vaccines (1 of 2) Zoster Vaccines (1 of 2) [facility] Start: 2013 [facility] Start: 2003 Screening for malignant neoplasm of breast [facility] Start: 1993 Screening for malignant neoplasm of cervix [facility] Start: 1984 Screening for malignant neoplasm of cervix [facility] Start: 1982 DTaP/Tdap/Td Vaccines (1 - Tdap) DTaP/Tdap/Td Vaccines (1 - Tdap) [facility] Start: 1982 Pneumococcal Vaccine: 50+ Years (1 of 2 - PCV) Pneumococcal Vaccine: 50+ Years (1 of 2 - PCV) [facility] Start: 1982 [facility] Start: 1981 Diabetes mellitus screening [facility] Start: 1981 Hepatitis C screening [facility] Start: 1975 Depression Screening Depression Screening [facility] Start: 1975 [facility] Start: 1964 MMR Vaccines (1 of 1 - Standard series) MMR Vaccines (1 of 1 - Standard series) [facility] Start: 1964 [facility] Start: 1963 HIV screening [facility] Start: 1963 Lipid panel Lipid Panel [facility] Start: 1963 Screening for malignant neoplasm of colon [facility] INR in Blood by Coagulation assay [facility] Iron [Mass/mass] in Unspecified specimen [facility] Iron saturation [Mas s Fraction] in Serum or Plasma [facility] Tissue exam [facility] Sy stem Work Phone: Total iron binding capacity measurement [facility] Troponin T.cardiac [Mass/volume] in Serum or Plasma by High sensitivity method [facility] Troponin T.cardiac [Mass/volume] in Serum or Plasma by High sensitivity method [facility] Immunizations Immunization Date Immunization Notes Care Provider [facility] 07-26-2024 influenza virus vaccine, unspecified formulation Mayra Ladd DO Work Phone: [facility] 07-19-2023 influenza, injectabl e, quadrivalent, preservative free Dr. Sabrina Duran DO Work Phone: [facility] Payers Date Payer Category Payer Self-pay [id number] 2022 Medicaid HMO [id number] 2022 Unknown [id number] 1965 Unknown [id number] 2.16. 840.1.638741.3.579.2.627 Unknown [id number] 2.16.8 40.1.304153.3.579.2.462 Unknown [id number] 2.16.8 40.1.963385.3.579.2.462 Unknown [id number] 2.16.8 40.1.858607.3.579.2.462 Unknown [id number] 2.16.8 40.1.883250.3.579.2.462 Unknown [id number] 2.16.8 40.1.309401.3.579.2.462 Unknown [id number] 2.16.8 40.1.877428.3.579.2.462 Unknown [id number] 2.16.8 40.1.880668.3.579.2.462 Unknown [id number] 2.16.8 40.1.587084.3.579.2.462 Unknown [id number] 2.16.8 40.1.655750.3.579.2.462 Unknown [id number] 2.16.8 40.1.489423.3.579.2.462 Unknown [id number] 2.16.8 40.1.133366.3.579.2.462 Unknown [id number] 2.16.8 40.1.571539.3.579.2.462 Unknown [id number] 2.16.8 40.1.766410.3.579.2.462 Unknown [id number] 2.16.8 40.1.645677.3.579.2.462 Unknown [id number] 2.16.8 40.1.369608.3.579.2.462 Unknown [id number] 2.16.8 40.1.965240.3.579.2.462 Unknown [id number] 2.16.8 40.1.351880.3.579.2.462 Unknown [id number] 2.16.8 40.1.851685.3.579.2.462 Unknown [id number] 2.16.8 40.1.541464.3.579.2.462 Unknown [id number] 2.16.8 40.1.652248.3.579.2.462 Unknown [id number] 2.16.8 40.1.836662.3.579.2.462 Unknown [id number] 2.16.8 40.1.978489.3.579.2.462 Unknown [id number] 2.16.8 40.1.156482.3.579.2.462 Unknown [id number] 2.16.8 40.1.426955.3.579.2.462 Unknown [id number] 2.16.8 40.1.875615.3.579.2.462 Unknown [id number] 2.16.8 40.1.253178.3.579.2.462 Unknown [id number] 2.16.8 40.1.066200.3.579.2.462 Unknown [id number] 2.16.8 40.1.671332.3.579.2.462 Unknown [id number] 2.16.8 40.1.567427.3.579.2.462 Unknown [id number] 2.16.8 40.1.588086.3.579.2.462 Unknown [id number] 2.16.8 40.1.342861.3.579.2.462 Unknown [id number] 2.16.8 40.1.724046.3.579.2.462 Unknown [id number] 2.16.8 40.1.426207.3.579.2.462 Unknown [id number] 2.16.8 40.1.719966.3.579.2.462 Unknown [id number] 2.16.8 40.1.383200.3.579.2.462 Unknown [id number] 2.16.8 40.1.582814.3.579.2.462 Unknown [id number] 2.16.8 40.1.384283.3.579.2.462 Unknown [id number] 2.16.8 40.1.860517.3.579.2.462 Unknown [id number] 2.16.8 40.1.056003.3.579.2.462 Unknown [id number] 2.16.8 40.1.110824.3.579.2.462 Unknown [id number] 2.16.8 40.1.246833.3.579.2.462 Unknown [id number] 2.16.8 40.1.020135.3.579.2.462 Unknown [id number] 2.16.8 40.1.662216.3.579.2.462 Unknown [id number] 2.16.8 40.1.785155.3.579.2.462 Social History Date Type Detail Facility Start: 12-01-2014 Tobacco smoking stat us CAIS Unknown if ever smoked [facility] Start: 07-19-2021 None [facility] Start: 07-19-2021 Non-smoker [facility] Start: 1965 Sex Assigned At Female [facility] Start: 05-21-2025 End: 05-21-2025 Tobacco smoking status NHIS Never smoked tobacco (finding) [facility] Start: 1965 Sex assigned at Not on file [facility] Start: 04-27-2022 Sex Female (finding) [facility] Gender identity Not on file [facility] Start: 06-11-2025 Gender identity Identifies as female gender (finding) [facility] Goals Date Patient Goal Desired Activity /State Functional Status Date Assessment Result Facility 06-29-2025 Are you deaf, or do you have serious difficulty hearing No [facility] 06-29-2025 Are you blind, or do you have serious difficulty seeing, even when wearing glasses No [facility] 06-29-2025 Do you have serious difficulty walking or climbing stairs Yes [facility] 06-29-2025 Do you have difficul ty dressing or bathing Yes [facility] 06-29-2025 Because of a physica l, mental, or emotional condition, do you have difficulty doing errands alone such as visiting a physician's office or shopping Yes [facility] 06-11-2025 Functional status Dependent/Unable [facility] Work Phone: 06-11-2025 Functional status Chair [facility] Work Phone: Mental Status Date Assessment Result Facility 06-29-2025 Because of a physica l, mental, or emotional condition, do you have serious difficulty concentrating, remembering, or making decisions Yes [facility] 06-11-2025 Cognitive function Voice/Name [facility] Work Phone: 05-21-2025 Cognitive function Voice/Name [facility] Work Phone: Clinical Notes 05-21-2025 to 07-01-2025 Telephone Encounter - CARLOTA Anaya CNP - 07/01/2025 11:20 AM EDTTelephone Encounter - CARLOTA Anaya CNP - 07/01/2025 11:20 AM EDPamela Hall RN - 06/29/2025 5:16 PM EDT Note Date & Type Note Facility 07-01-[address] Hazel Alvarez saw this pt during her hospitalization. She was discharged on 06/29. Can you please call her and schedule a s/p hospital follow up with him in the next 2-3 weeks? If no openings can be with EVE. Thanks! [facility] 07-01-[address] Hazel Alvarez saw this pt during her hospitalization. She was discharged on 06/29. Can you please call her and schedule a s/p hospital follow up with him in the next 2-3 weeks? If no openings can be with EVE. Thanks! documented in this encounter [facility] 06-29-2025 Nurse Note Patient/family given discharge paperwork/instructions. IV removed. Medications delivered from [facility] pharmacy. Son at bedside. Transport request in. All questions and concerns addressed. Wound Care follow up visit for Pressure Injury Prevention. Pt's Jose score= 14 on 06/28/25 Pt's pressure points assessed. Pt turned with 1 assist for posterior assessment. Pt turned to left side at end of visit. Pt's Heels, Buttocks/coccyx, Back, Elbows, Occiput and ears all intact. Blanchable erythema noted to left ear. O2 foams in place. Blanchable erythema noted to bilateral buttocks. Female external catheter in place, medial thighs and labia intact. Instructed pt on pressure injury prevention and importance of turning/postioning every 2hrs while in bed. Verbalized understanding. Prevention Measures in place, including: Rosebud sheet with pillows/wedges, Foam heel protectors (changed), Heels elevated off bed on pillows, Sacral foam (changed), Zinc/Moisture Barrier ointment (obtained and applied) ET Mix also at bedside, Waffle chair cushion (obtain when out of bed), Foam to right elbow (peeled back, skin checked and replaced) Pillows placed under right arm as well to off-load. Skin Care precaution order set in place. D/W nursing staff. Will continue to follow pt. Please Vocera for any questions or concerns. Anaya JAMES, RN Report called to RN on H5. RN has no further questions at this time Wound Care Follow-up visit for Pressure Injury Prevention. Pt's Jose score= 16 on 06/20/25 Pt's pressure points assessed. Pt turned with assist from myself and staffing coordinator. PT turned to right side at end of visit. Pt's Heels, Buttocks/coccyx, Back, Elbows, Occiput and ears all intact. Blanchable erythema to bilateral buttocks. Female external catheter in place, medial thighs and labia intact. Prevention Measures in place, including: Rosebud sheet with pillows/wedges, Foam heel protectors (changed), Heels elevated off bed on pillows, Sacral foam (not applied due to incontinence), Zinc/Moisture Barrier ointment and ET Mix (applied), Waffle chair cushion (obtain when out of bed). Skin Care precaution order set in place. D/W nursing staff. Will continue to follow pt. Please Vocera for any questions or concerns. Anaya Cohen RN, BSN Patient off unit to radiology for CT scan. Wound Care consulted for Pressure Injury Prevention. Pt's Jose score= 13 on 06/13/25 Pt's pressure points assessed. Pt up in chair at time of assessment, pt stood brief with assist from PT and myself. Unable to assess rectum and lower buttocks at this time. Pt's Heels, upper Buttocks/sacrum, Back, Elbows, Occiput and ears all intact. Pt being followed by wound CEREAL CHEMIST group, For right elbow, right forearm and evon-rectal region wound assessment and treatment plan, please see Wound/Ostomy CEREAL CHEMIST progress notes. Female external catheter in place, medial thighs and labia intact. Instructed pt on pressure injury prevention and importance of turning/postioning every 2hrs while in bed and every 15 min while sitting in chair. Instructed on use and care of waffle chair cushion. Verbalized understanding, unsure of pt comprehension will need reinforcement. Prevention Measures in place, including: Rosebud sheet with pillows/wedges, Foam heel protectors (applied), Sacral foam (n/a due to frequent stool), Zinc/Moisture Barrier ointment (obtained), Waffle chair cushion (obtained for pt). Skin Care precaution order set in place. Dietitian consult in place. PT consult in place. Will continue to follow pt. Please Vocera for any questions or concerns. Anaya Cohen RN, BSN documented in this encounter [facility] 06-29-2025 Miscellaneous Notes Patient Choice Patient Name: NANCY DELACRUZ Date of : 1965 All Providers Sent Referral Name: [facility] ([facility] known [facility]) Phone: [phone] Address: [address] [place] [address] Name: [facility] Phone: [phone] Address: [address] [place] [address] Name: [facility] Phone: [phone] Address: [address] [place] [address] Name: [facility] Address: [address] [place] [address] Name: [facility] (Home Health) Address: [address] [place] [address] Name: [facility] Phone: [phone] Address: [address] [address] [place] [address] Name: [facility] Phone: [phone] Address: [address] [place] [address] Name: [facility] Address: [address] [place] [address] Name: [facility] (For [facility] Facilities Only) Phone: [phone] Address: [address] [place] [address] Name: [facility] Phone: [phone] Address: [address] [place] [address] Name: [facility] Phone: [phone] Address: [address] [place] [address] Name: [facility] Phone: [phone] Address: [address] [place] [address] Name: [facility] Phone: [phone] Address: [address] [place] [address] Name: [facility] Phone: [phone] Address: [address] [place] [address] Name: [facility] Address: [address] [place] [address] Name: [facility] Address: [address] [place] [address] Name: [facility] Phone: [phone] Address: [address] [place] [address] Name: [facility] Address: [address] [place] [address] Name: [facility] Address: [address] [place] [address] [facility]: [facility] Phone: [phone] Address: [address] [place] [address] Name: [facility] Address: [address] [address] [place] [address] Name: [facility] (All Offices) Phone: [phone] Address: [address] [place] [id number] TCC PROGRESS NOTE: Pt to be discharged to home with brother and mother today. Pt and brother were offered snf and they declined several times. HCL was unable to find home care agency and pt and brother are aware of this as well and still choose for her to go home. Pt's brother will provide transport home for her. SW met w / Pt, introduced self, explained role, and inquired upon possible need for supports or community resources. Male visitor present in room, Pt identified visitor as her brother Wayne. Wayne reported Pt lives with Pts mother, brother, and himself [place]. Wayne inquired upon discharge details. SW reported plans to notify TCC of requested update. TCC notified. TCC reported plans to update Pt and Wayne. Report called to WES Olmos. All questions answered Patient family/visitor updated by RN at this time. Dr mirza at bedside to check on patient. VS stable on Bipap 10/7 7L. Orders to begin to wean off bipap. Pt to pacu bay 14, placed on monitors. Pt HR noted to be in Afib 39-55BPM. CONCRETE FORM SETTER gave IV Robinol at beside. Dr mirza paged to bedside for cardiac respiratory issues. Pt 92 on 10L SM. Orders to place on Bipap until patient recovers more. Paged Respiratory to PACU to place pt on Bipap. Care Management Progress Note Short Medical why still here: Pt remains on H5. Resp status improving on 2L O2 [place] today. Plan for surgery with DISTANCE LEARNING PROGRAM COORDINATOR tomorrow. Tcc will continue to follow. Planned Discharge Disposition: Home Health Services Barriers/Today we still Wait: Administering IV medications, Attending completion of discharge workflow, Clinical stability, Manufacturing Lab Technician recommendations (comment), Procedure (comment) Length of Stay (Days): 9 GMLOS: No GMLOS Documented Surgery cancelled per Dr. Rodriguez/anesthesia due to respiratory status. Pt O2 sat 85% on 12L venti mask. Dr. Rodriguez at bedside. Notified Dr. Akers. Will come eval pt. Non rebreather applied. Per TCC, patient wanting to go home with home care at [place]. [place] referral started in [facility]. Currently there are NO accepting home care agencies. Will continue to follow. TCC updated. [facility] able to accept patient. Will keep agency updated via [facility] for final dc plan. Care Management Progress Note Short Medical why still here: pt remains on H5. She did have a prolonged bout of hypoxia this am and was refusing to wear her O2. Pt had ICU eval, abg's and cxr done. She is on O2 6L at present sitting up in bed. Pulse ox continuous, now at 96%. Pt still wants to go home at discharge. Brother, Wayne, at bedside. Planned Discharge Disposition: Halfway Facility Barriers/Today we still Wait: Attending completion of discharge workflow, Clinical stability, Manufacturing Lab Technician recommendations (comment), Procedure (comment) Length of Stay (Days): 4 GMLOS: No GMLOS Documented Care Management Progress Note Short Medical why still here: pt was transferred to H5 from T2 yesterday afternoon. Pt was transferred from [facility] with vaginal bleed and transferred to ICU for acute hypoxic respiratory failure. Pt was transferred to H5 on O2 6L. She is now on humidified O2 at 6L. Pulmonary has been consulted as pt will likely need home O2 and possible bipap. She is not on iv or oral abx at this time. Tcc spoke with pt and her brother, Wayne, at bedside today. Both pt and Wayne express that they would like for pt to go home with home care if needed. They do not want snf placement. Tcc will continue to follow. Planned Discharge Disposition: Halfway Facility Barriers/Today we still Wait: Attending completion of discharge workflow, Clinical stability, Patient/caregiver facility choice Length of Stay (Days): 3 GMLOS: No GMLOS Documented Family Communication Number Called: [phone] Name of Designated Family Division Chief: Wayne Delacruz (brother) Relationship: brother Phone Call Outcome: I spoke with the individual listed above. Family Division Chief Updated on the Following: I called and spoke with patient's brother Wayne and provided him with patient updates. I informed him that patient is improving from respiratory stand point and now can move to the general medical floor from the ICU. Wayne had no further questions. Care Management Progress Note Short Medical why still here: Remains for NIV@HS/O2 wean, therapy evals ongoing. OT order obtained. Planned Discharge Disposition: Home Health Services ([facility] following vs SNF) Spoke with Wayne cynthia) [phone] via phone and at bedside. Introduced myself and role. Discussed discharge planning. Wayne states "its 50/50" right regarding if he agrees with SNF at discharge. CM provided SNF list, discussed facility choices, medicare star ratings and post-acute care networks. Wayne wants to review with mom Johana. CM will follow up 06/21 for choices. Discussed potential and how respiratory therapy needs at discharge are obtained. Barriers/Today we still Wait: Clinical stability, Manufacturing Lab Technician recommendations (comment), Symptomatic control, Patient/caregiver facility choice Length of Stay (Days): 2 GMLOS: No GMLOS Documented Case management will continue to follow for discharge planning. 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 Care Managment Initial Assessment Date: 06/18/2025 Patient Name: Nancy Delacruz : 1965 Patient Information Source of Information: Patient Division Chief Name/Contact Information: brother Wayne Cognition/Language: Impaired, Other (Comment) (DD) Permission given to speak with patient medical detail representative/caregiver as indicated: Confirmation of Payer with patient/family: Yes Payer Name: [facility] Medicaid : No Confirmation of Primary Care Physician: Confirmed PCP Name: Sabrina Duran Seen in last 2 years?: Yes Primary Caregiver: Family If assistance needed, confirmed caregiver ready, willing and able to care for patient at discharge: Yes (mother and 2 bothers) Confirmed with: [facility] broth Living Arrangements Current Residence: House Number of Floors 1 Number of Entry Steps: (ramp) Bed/Bath Levels: Facility: Facility Name: Plan to Return: Lives with: Extended family members Support Systems: Family members Activities of Daily Living Ambulation: Total Care Bathing/Dressing: Assistance Elimination/Continence/Toileting: Assistance Feeding: Independent Who Assists with Activities of Daily Living: Instrumental Activities of Daily Living Prescription Coverage: Yes Pharmacy Used: [facility] Medication Management: (family manages meds) Transportation/Shopping: Assistance Provider Transportation/Shopping Assistance Provider Name: family Transportation Mode: Car Needs Assistance with Transportation at Discharge: No Meal Preparation: Assistance Provider Meal Prep Assistance Provider Name: family Laundry/Cleaning: Assistance Provider Laundry/Cleaning Assistance Provider Name: family Finances/Bill Paying: Assistance Provider Finances/Bill Payer Assistance Provider Name: family Communication: Independent (Pt with DD - family) Types of Care Services/Equipment Utilized Care Services: (NA) Dialysis Type: NA Durable Medical Equipment: Wheelchair (standard or power), Bedside Commode, Shower Seat (transport chair) Patient's Goal/Discharge Plan Patient expects to be discharged to: home Discharge Planning Actions: Continue to follow Patient's Choice Rights and [employer] and Collaborative Relationships Disclosed as Indicated for Post-Acute Care: Yes Interdisciplinary Team Engagement: Home Health Care Social Work Referral for: Additional Information: Spoke with pt's brother Wayne by phone to complete the IA. Pt resides with her mother and 2 brothers who provide care for her. She is unable to ambulate d/t stroke, is able to stand and pivot with assist. Family transports her around the house with a transport chair. They are able to get her to her MD appointments, etc. DCP: home. Family to decide about HHC. Approval given to send HC referral. Felicia Mirza RN Care Management Progress Note Short Medical why still here: Transferred to ICU for hypoxemic resp failure requiring PPV. Surgery (hysterectomy) may be delayed. Elevated BNP, Weaned to 6L NC. Cont's on IV ATBX. Planned Discharge Disposition: Halfway Facility Spoke with brother Wayne by phone to discuss disch plan, therapy recommendation fro SNF. He does not want his sister to go to a SNF. Offered HHC, he states he will discuss with pt's mother. Barriers/Today we still Wait: Administering IV medications, Clinical stability, Manufacturing Lab Technician recommendations (comment), Procedure (comment) Length of Stay (Days): 0 GMLOS: No GMLOS Documented Rapid response called due to Rr40s, and SpO2 92% on non-rebreather. Patient was seen by pulmonology earlier this shift for worsening SOB/WOB and order for CTA placed. Upon return from CTA patient was still tachypneic and SOB. Pulmonology at bedside contacting ICU regarding need for transfer. Pt transferred to ICU by HAND FINISHER with out complication. Care Management Progress Note Short Medical why still here: clinical stability. Surgery planned for Wednesday. Planned Discharge Disposition: Halfway Facility LVM for pt's brother Wayne isidro [place] - requested a call back. PT recommending SNF Barriers/Today we still Wait: Clinical stability, Other (comment) Length of Stay (Days): 0 GMLOS: No GMLOS Documented / Care Management Progress Note Short Medical why still here: Plan is to go to OR on Wednesday. For possible D and C or hysterectomy. Planned Discharge Disposition: Home Health Services Barriers/Today we still Wait: Administering IV medications, Clinical stability, Manufacturing Lab Technician recommendations (comment), Diagnostic workup Length of Stay (Days): 3 GMLOS: No GMLOS Documented . Care Management Progress Note Short Medical why still here: Needs a cookie swallow. PT recommends SNF. Need OT to eval. Will call mom to see what she wants. Planned Discharge Disposition: Home or Self Care Barriers/Today we still Wait: Clinical stability, Manufacturing Lab Technician recommendations (comment), Diagnostic workup Length of Stay (Days): 2 GMLOS: No GMLOS Documented ARELY received call back from [facility]. Pt lives with her mother, Johana- [phone] and two brothers. Brother Robin's phone number is [phone]. Dr Pepper is her PCP. ARELY sent chat to with update. ARELY asked to assist with finding family. No NOK listed. Pt was at [facility] and transferred to [facility]. ARELY left message at [facility] Cm dept to see if they have anyone on file. ARELY called [facility] DD to see if she was active with them and she is not. ARELY looked at [facility] probate website and called Probate court- no active guardian. Pt did have a mother, Johana and brothers, Gerry, Wayne and Juvenal. Pt appears to same address as mother and two brothers back in 2018. ARELY tried pt's home number listed and number rang busy. ARELY emailed [facility] Preston for assist with finding family. Care Management Progress Note Short Medical why still here: Pt transferred from [facility]. She came with vaginal bleeding. Her CA 157 is elevated. CLOTHING MAN consulted. May need surgery. Planned Discharge Disposition: Home or Self Care Barriers/Today we still Wait: Clinical stability, Manufacturing Lab Technician recommendations (comment), Diagnostic workup Length of Stay (Days): 1 GMLOS: No GMLOS Documented documented in this encounter [facility] 06-29-2025 History of Presen t illness Narrative Nutrition Assessment Type and Reason for Visit: Reassess Nutrition Recommendations/Plan: Continue with regular diet and strawberry Glucerna Shake once daily Suggest continue to document po intake in nursing flow sheets RD continue to monitor overall nutritional status and follow up weekly Malnutrition Assessment: Malnutrition Status: No malnutrition Context: Acute Illness Nutrition Assessment: Since last RD visit, patient now POD # 1 s/p D&C, LNG-IUD placement. Eventual plan for laparoscopic hysterectomy, bilateral salpingo-oophorectomy, bilateral sentinel lymphadenectomy when more medically stable. Regular diet with Glucerna Shake once daily resumed. Per nursing notes, patient did consume 75-100% breakfast this morning and overall has been consuming 50-75% most meals. Possible discharge today. Estimated Daily Nutrient Needs: Energy Requirements Based On: Kcal/kg Weight Used for Energy Requirements: Other (Comment) (estimated IBW) Weight for Energy Calculation (kg): 50 kg Total Energy Requirements (kcals/day): 2804-7665 (25-30 kcals/kg) Weight Used for Protein Requirements: Other (Comment) (estimated IBW) Weight in Kg Used for Protein Requirements: 50 kg Estimated Total Protein (g/day): 55-65 (1.1-1.3 g/kg) Estimated Daily Total Fluid (ml/day): per MD Nutrition Related Findings: Lives with: Extended family members Primary Caregiver: Family Orientation Level: Oriented X4, Oriented/disoriented at times Cognition: Follows commands Best Verbal Response: Confused Patient Behaviors/Mood: Cooperative, Calm Teeth: Missing teeth Swallow: Able to swallow solids and liquids without difficulty Room Service Room Service: Assist Jose Scale Score: 15 Wound Type: (R elbow abrasion - resolved, R forearm tear - resolved) Net IO Since Admission: -7,466 mL [06/29/25 1426] Gastrointestinal (WDL): Within Defined Limits Bowel Sounds (All Quadrants): Active Abdomen Inspection: Soft, Rounded Last BM Date: 06/27/25, Stool Appearance: Soft, Stool Color: Brown Edema: Generalized Edema: Non-pitting, RUE Edema: None, LUE Edema: None, RLE Edema: None, LLE Edema: None Oxygen Therapy: Supplemental oxygen, O2 Delivery Method: Nasal cannula, O2 Flow Rate (L/min): 2 L/min Labs and meds reviewed: BMP: Recent Labs 06/27/25 0502 06/28/25 0057 06/29/25 0141 NA 141 143 143 K 3.9 4.2 4.6 CL 104 104 106 CO2 29 29 30 BUN 45* 47* 39* CREATININE 1.10 1.18* 1.16* GLUCOSE 96 101 110 CALCIUM 8.3* 8.2* 8.1* HEPATIC: No results for input(s): "AST", "ALT", "BILITOT", "ALKPHOS" in the last 72 hours. No lab exists for component: ALB No results found for: "POCGLU" Scheduled: Scheduled Meds[1] Continuous: Continuous Meds[2] Current Nutrition Therapies: Adult diet Regular Current Oral Intake Average Meal Intake: 51-75%, 76-100% Average Supplements Intake: Unable to assess Anthropometric Measures: Height: 165.1 cm (5' 5") Current Body Weight: 85.7 kg (189 lb) Weight Source: Bed Scale [place] Body Weight (lbs) (Calculated): 125 lbs [place] Body Weight (Kg) (Calculated): 57 kg % [place] Body Weight (Calculated): 150.3 % BMI (kg/m2) (Calculated): 31.5 Weight Adjustment For: No Adjustment BMI Categories: Obese Class 1 (BMI 30.0-34.9) Nutrition Interventions: Nutrition Education/Counseling: No recommendation at this time Coordination of Nutrition Care: Continue to monitor while inpatient Goals: Previous Goal Met: Progressing toward Goal(s) Goals: PO intake 75% or greater, by next RD assessment Nutrition Monitoring and Evaluation: Behavioral-Environmental Outcomes: None Identified Food/Nutrient Intake Outcomes: Food and Nutrient Intake, Supplement Intake Physical Signs/Symptoms Outcomes: Biochemical Data, GI Status, Weight, Skin, Fluid Status or Edema Discharge Planning: Continue current diet Nadia Ricardo, MS RD LD Contact: [employer] or *[id number] [1] atorvastatin, 20 mg, Oral, Nightly digoxin, 125 mcg, Oral, Daily melatonin, 3 mg, Oral, Nightly metoprolol tartrate, 25 mg, Oral, q8h pantoprazole, 40 mg, Oral, Nightly sodium chloride 0.9%, 5-40 mL, IntraVENous, q12h sodium chloride 0.9%, 5-40 mL, IntraVENous, q12h stomahesive in petrolatum, , Topical, q8h [2] RTHOMEO2[145169] Respiratory Therapy Home O2 Progress Note O2 saturation at rest on room air: 98% If saturation is 88% or less O2 saturation on O2 at NA LPM while at rest: NA O2 saturation on exertion must be checked if patient is able regardless of O2 saturation at rest O2 saturation with exertion on room air: 90% (NA if patient needs O2 at rest) O2 saturation on O2 at NA LPM with exertion: NA% Patient meets criteria for home O2 Y/N = N Patient mobile at home Y/N = N (full assist) DME Notified N (pt does not qualify) Images from the original note were not included. PHYSICAL THERAPY [facility] Treatment Note Name/MRN: Nancy Delacruz ([id number]) Date of : 1965 Age: 59 y.o. Room/Bed: 5125/-5125 A Discharge Recommendation: Halfway Facility Equipment Needed: (tbd) Assessment The pt is making limited progress towards her goals and will continue to benefit from therapy for their functional deficits and to improve her overall functional capacity. She is a fall risk and will need 24 hour assist and continued therapy at discharge. SNF is recommended at discharge. Overall endurance remains below baseline per brothers reported and rest breaks were needed with activity. She did have a + LOB while standing and required assist to correct her balance while descending to a seated position. Pt required assist for hygiene secondary to urinary incontinence. Increased time was needed for all mobility and some guarding was present secondary to increased fear of falling. Subjective Pt in bed and agreed to PT. Pain: abdomen, no rating. Medical Precautions: No active isolations Proper PPE donned/doffed in accordance with facility standards. Fall Risk: Led[place]ma Fall Risk Score: 60 (High Risk) Precautions/Restrictions: Fall Precautions O2 NC; Continuous pulse ox; purewick Overall Cognitive Status: Exceptions - Arousal/alertness: delayed responses to stimuli - Following commands: follows one step commands with increased time and follows one step commands with repetition - Problem solving: decreased awareness of errors - Initiation: requires cues for some - Sequencing: requires cues for some Overall Orientation Status: Oriented to Place and Oriented to Person month and year, pt is aware she had surgery yesterday Family/Caregiver Present: sibling(s) Objective Bed Mobility Supine to sit: Max Assist Sit to supine: Max Assist Rolling to right: Max Assist Rolling to left: Max Assist Scooting: Max Assist Use of bed rail(s) Pt rolled Lt and Rt 2 x each Balance During Session: Posture: fair Sitting - Static: SBA Sitting - Dynamic: Min Assist Standing - Static: Max Assist Standing - Dynamic: Dependent Pt stood 2 trials at EOB with therapist with max assist. Pt did not achieve a full upright standing posture and presented with a retrograde lean and knees remained flexed. Pt sat EOB for greater than 8 minutes with cues for posture and performed some seated exercises including seated march, LAQ, and UE elevation with LUE assisting RUE. Pt required cues for posture while performing exercises. Pt did present with a retrograde lean initially in sitting and required assist to recover. Plan Continue acute PT per plan of care. Safety/Education Safety Safety Devices in place: call light within reach, left in bed, no alarms engaged upon entry, and brother in room and nursing attendant upon PT exit. Restraints: No Education Education Given To: patient and brother Education Provided: PT Role, PT Goals, Plan of Care, Discharge Recommendations, and Benefits of Increasing Activity Education Method: Verbal Barriers to Learning: Cognition Education Outcome: Verbalized Understanding and Continued Education Needed Outcome Measures AM-PAC AM-PAC Inpatient Mobility Raw Score (No Stairs) : 8 JH-HLM JH-HLM Scale: Sat at edge of bed Goals Patient Stated Goal: to get stronger Encounter Problems Encounter Problems (Active) Balance Patient will maintain dynamic sitting balance for 5 minutes with SBA in order to demonstrate improved postural control and prepare for out of bed mobility. (Progressing) Start: 06/19/25 Expected End: 07/10/25 Mobility Patient will propel the wheelchair for 20 ft and min assist in order to improve safety and independence with functional mobility. (Not Addressed) Start: 06/19/25 Expected End: 07/10/25 Transfers Patient will perform bed mobility with SBA in order to improve independence and prepare for out of bed mobility. (Progressing) Start: 06/19/25 Expected End: 07/10/25 Patient will complete functional transfer with least restrictive device with min assist in order to prepare for ambulation. (Not Progressing) Start: 06/19/25 Expected End: 07/10/25 Therapy Time Individual Co-treatment Time In 1050 Time Out 1115 Minutes 25 Timed Code Treatment Minutes: 24 Minutes (two FA) Variance: 1 (assistant case manager present for hygiene) Shant Shea PT Hospitalist Progress Note 06/29/2025 10:45 AM [phone]: Please page me for patient care issues. [phone]: Please page [facility] night Hospitalist for any issues. Subjective: Admit Date: 06/11/2025 PCP: SABRINA DURAN Room#: H-5125/H-4773 A Interval History: 59 yo F Hx of developmental delay, A-fib, HTN, HLD, CVA w/ residual right-sided deficits who presented from [facility] where she presented for hemorrhagic shock 2/2 vaginal bleeding and required 4 units of PRBC. Found to have endometrial carcinoma, confirmed with biopsy. Transferred to [facility] for further care with plan for hysterectomy, bilateral salpingo-oophorectomy, sentinel lymphadenectomy for 06/18. On 06/17 patient developed worsening dyspnea and Afib w/ RVR and was transferred to the ICU for management of acute hypoxic respiratory failure likely 2/2 TRALI and needed NIV, now weaned to Nasal cannula w/ nocturnal pap. DISTANCE LEARNING PROGRAM COORDINATOR/ONC following and planning for D&C with levonorgestrel intrauterine device in the interim. Eventual plan for laparoscopic hysterectomy, bilateral salpingo-oophorectomy, bilateral sentinel lymphadenectomy when more medically stable. Seen by cards and med adjustments made with better HRs. No OAC until vaginal bleeding issues resolved. Possible cardioversion down the road. Patient stabilized and transferred out of ICU onto [facility] hospitalist service. 06/26 Patient seen and examined.procedure was canceled secondary to worsening respiratory status Patient lying in bed. family at bedside .denies shortness of breath On nasal cannula oxygen Reviewed labs in detail as below Discussed with TCC and nursing Care plan discussed CT chest Bilateral patchy consolidative and groundglass infiltrates within the upper lobes and superior segment of lower lobes. Trace right pleural effusion. Shotty mediastinal lymph nodes measuring up to 8 mm is nonspecific finding. 06/27 Pt awake Reports SOB stable today No CP Shreya PO 06/28 Pt awake No CP Per staff some issues with anxiety at times 06/29 Pt awake Feels ok today s/p D&C, LNG-IUD placement 06/28 Past Medical History: Medical History[1] Adult diet Regular @[id number]@ Medications: Continuous Meds[2] Scheduled Meds[3] LABS: CBC: Recent Labs 06/27/25 0502 06/28/257 06/29/25 0141 WBC 6.8 8.0 9.1 RBC 3.42* 3.41* 3.35* HGB 8.1* 8.1* 8.0* HCT 28.5* 28.1* 28.4* MCV 83.3 82.4 84.8 RDW 21.0* 21.3* 21.0* PLT 424 441* 398 BMP: Recent Labs 06/27/25 0502 06/28/255606/29/25 0141 NA 141 143 143 K 3.9 4.2 4.6 CL 104 104 106 CO2 29 29 30 BUN 45* 47* 39* CREATININE 1.10 1.18* 1.16* GLUCOSE 96 101 110 CALCIUM 8.3* 8.2* 8.1* ANIONGAP 8 10 7 LIVER PROFILE:No results for input(s): "AST", "ALT", "BILITOT", "ALKPHOS", "PROT" in the last 72 hours. No lab exists for component: LABALBU PT/INR: No results for input(s): "PROTIME", "INR" in the last 72 hours. CARDIAC ENZYMES: No results for input(s): "TROPONINI" in the last 72 hours. Procalcitonin: No results found for: "PROCAL" I reviewed: [x] laboratory results [x] radiographic results At the time of today's encounter. Pt was informed about the results. Objective: Vitals: BP 119/78 (BP Location: Left arm, Patient Position: Sitting) Pulse 75 Temp 36.7 C (98.1 F) (Temporal) Resp 14 Ht 5' 5" (1.651 m) Wt 156 lb 4.8 oz (70.9 kg) SpO2 99% BMI 26.01 kg/m Pulse Ox: SpO2 Av.6 % Min: 90 % Max: 100 % Supplemental O2: O2 Flow Rate (L/min): 2 L/min General appearance: No apparent distress, Cardiovascular: irreg Respiratory: Decreased breath sounds bibasilar Abdomen: Soft, non-tender, non-distended with normal bowel sounds. Musculoskeletal: No obvious deformities seen Skin: sacral wound Neurology- Awake alert, right upper extremity contracted Extremity- peripheral edema both lower extremities Assessment Acute problems-- Acute hypoxic respiratory failure Diffuse bilateral pulmonary infiltrates, concern for TRALI Pneumonia ruled out Atrial fibrillation with RVR HFpEF-compensated RAMEZ-resolving Endometrial adenocarcinoma Acute blood loss anemia Developmental delay Hx CVA with residual right sided deficits Sacral wound (POA) Chronic issues-- Medical History[4] Plan - Continue PAP with naps and at night as tolerated, supplemental O2 via NC during the day, CT chest results reviewed, pulmonary following - now off telemetry monitoring, Metoprolol 25 mg q8h for rate control, Digoxin 125 mcg PO daily, per cards will consider resuming DOAC and consider cardioversion once pt medically stable and healed from surgery ?-- will check ECG today to document rhythm-- remains afib - DISTANCE LEARNING PROGRAM COORDINATOR/ONC following and planning for D&C with levonorgestrel intrauterine device , procedure was scheduled on 06/25 canceled secondary to worsening respiratory status--s/p s/p D&C, LNG-IUD placement 06/28 - Eventual plan for laparoscopic hysterectomy, bilateral salpingo-oophorectomy, bilateral sentinel lymphadenectomy when more medically stable - follow H/H, transfuse prn hgb <7.0 - am labs, replace lytes prn - PT/OT/CM/SW - delirium precautions: increase activity and limit nighttime disturbances Discussed with pt. Does have some situational anxiety around procedure, no history of anxiety or depression per pt or family . Will add low dose ativan PRN and follow - DVT prophylaxis: SCDs and encourage ambulation Discussed with patient family at bedside prognosis guarded Discussed with nursing staff Toxic drug monitoring/narrow therapeutic index drug monitoring : # Drug name : # Route administered : # Method of monitoring : Extended Emergency Contact Information Primary Emergency Contact: Wayne Delacruz Mobile Relation: Brother Preferred language: Nigerien Secondary Emergency Contact: Johana Delacruz Mobile Relation: Mother Preferred language: Nigerien Advance Directive: Full Code Anticipated Discharge - Pending clinical course, consults Rubio Mullins MD, Division of Hospitalist Medicine [1] Past Medical History: Diagnosis Date A-fib (HCC) Developmental delay [2] [3] atorvastatin, 20 mg, Oral, Nightly digoxin, 125 mcg, Oral, Daily furosemide, 40 mg, IntraVENous, Daily melatonin, 3 mg, Oral, Nightly metoprolol tartrate, 25 mg, Oral, q8h pantoprazole, 40 mg, Oral, Nightly sodium chloride 0.9%, 5-40 mL, IntraVENous, q12h sodium chloride 0.9%, 5-40 mL, IntraVENous, q12h stomahesive in petrolatum, , Topical, q8h [4] Past Medical History: Diagnosis Date A-fib (HCC) Developmental delay Images from the original note were not included. [facility] [address] [place] [id number] Patient - Nancy Delacruz, Age - 59 y.o. - 1965 Room Number - [id number] A Consulting - Rubio Mullins MD Primary Care Physician - SABRINA DURAN Date of Admission - 06/11/2025 10:35 PM Hospital Day - 11 Chief Complaint: vaginal bleeding Nancy Delacruz is a 59 y.o. female who pulmonary is following for acute hypoxemic respiratory failure. Patient initially presented to [facility] with complaints of vaginal bleed. Patient found to be in hemorrhagic shock requiring blood products. Patient developed respiratory failure requiring intubation. Patient was able to be weaned, path preliminary concerning for adenocarcinmoa of analytical chemist origin. Patient waiting for clinical improvement before proceeding with MARY and further surgical interventions. Patient was treated with abx and diuresis for pna and possible fluid overload. Interval History Patient s/p D&C. Patient on 2lnc. Denies acute complaints today, reports her breathing feels good. Brother at bedside, does not have any acute concerns. Reports they wish to follow up with pulmonary at [place] which is much closer to home. All other systems reviewed and negative unless otherwise stated in HPI. Objective Vitals: BP 137/90 (BP Location: Left arm, Patient Position: Sitting) Pulse 62 Temp 36.1 C (97 F) (Temporal) Resp 20 Ht 5' 5" (1.651 m) Wt 156 lb 4.8 oz (70.9 kg) SpO2 96% BMI 26.01 kg/m Pulse Ox: SpO2 Av.3 % Min: 90 % Max: 100 % Supplemental O2: O2 Flow Rate (L/min): 2 L/min I/O 24HR INTAKE/OUTPUT: Intake/Output Summary (Last 24 hours) at 06/29/2025 0647 Last data filed at 06/28/2025 1802 Gross per 24 hour Intake -- Output 600 ml Net -600 ml Exam General appearance: more Awake, alert, no acute distress, sitting up in the chair. On 2 liters/min NC. HEENT: NCAT. No scleral icterus, no right/left eye discharge. Conjunctivae normal. Neck:ROM normal. No cervical lymphadenopathy Cardiovascular: RRR. Heart sounds normal. Negative for murmur, friction rub, or gallop. Pulmonary: Effort normal no respiratory distress. No stridor. Mild Rhonchi R lung base. Abdomen: soft, no distention, no abdominal tenderness. No guarding. Musculoskeletal: ROM is limited in RUE and RLE Skin: warm and dry. Skin is not jaundiced. No rash Extremities: no clubbing or cyanosis. no lower extremity edema. Contracture in RLE secondary to stroke Neurological: patient is awake and alert, conversant. limited motion in RUE and RLE secondary to prior stroke Psychiatric: patient smiling and pleasant pleasant. Medications Current Medications Scheduled Meds[1] PRN Mediations PRN Meds[2] IV Drips/Infusions Continuous Meds[3] Labs CBC Results from last 7 days Lab Units 06/29/25 0141 WBC AUTO 10*3/uL 9.1 HEMOGLOBIN g/dL 8.0* HEMATOCRIT % 28.4* PLATELETS 10*3/uL 398 BMP: Results from last 7 days Lab Units 06/29/25 0141 06/28/25 0057 06/27/25 0502 SODIUM mmol/L 143 143 141 POTASSIUM mmol/L 4.6 4.2 3.9 CHLORIDE mmol/L 106 104 104 CO2 mmol/L 30 29 29 BUN mg/dL 39* 47* 45* CREATININE mg/dL 1.16* 1.18* 1.10 GLUCOSE mg/dL 110 101 96 CALCIUM mg/dL 8.1* 8.2* 8.3* ABG: Results from last 7 days Lab Units 06/22/25 0856 PH ART 7.482* PCO2 ART mm Hg 32.5* PO2 ART mm Hg 79.2* HCO3 ART mmol/L 23.8 O2 SAT ART % 95.9 BASE EXC ART mmol/L 0.6 SOURCE OF OXYGEN [place] High Flow Nasal Cannula (6-15 LPM) LIVER PROFILE No lab exists for component: LABALBU INR PTT No results found for: "PTT" Cultures Sputum with rare stephanie tropicalis and respiratory amita Pna PCR negative Nasal mrsa negative Nasal pcr negative Radiology All relevant/recent imaging was personally reviewed by me. Please see official radiology report for details. Cxr personally reviewed and interpreted, compated to previous, demonstrates mild pulmonary vascular congestion, dense bilateral upper lobe infiltrates with minimal change from the prior imaging. Repeat CT chest 06/25 personally reviewed and compared to previous, demonstrates interval improvement in dense consolidation in the bilateral upper and middle/lingular lobes with interval development of more ground glass infiltrate in the corresponding regions. CT chest from 06/17/2025 personally reviewed and interpreted, no prior for comparison, demonstrates dense patchy upper lobe and middle/lingular infiltrate with small r basilar effusion Assessment Acute hypoxemic respiratory failure, improving TRALI ? PNA HFpEF Afib with RVR Endometrial hyperplasia, suspicion for adenocarcinoma Developmental delay Recommendations Patient oxygenation much improved. Goal saturations 90 and above. Currently on 1lnc, anticipate patient may need supplemental oxygen on discharge Patient s/p abx for pna, cultures negative, Requested CT's from outside hospital. Will need follow up CT in 8-12 weeks post hospital stay to assess for resolution, requested scans from [facility]. Continue diuresis as tolerated S/P D&C, tissue pending. DISTANCE LEARNING PROGRAM COORDINATOR notes plan for need of further intervention in the future Continue IS, OPEP, PT/OT, OOB. Discussed with brother at bedside, patient will need follow up scans, and possible further workup and evaluation for her lungs depending on how future CT scans look. They wish to follow with pulmonary in [place] which is much closer to home. Discussed that they will need to have whoever she establishes with request records from [facility]. Pulmonary service will sign off, please call with questions. [1] atorvastatin, 20 mg, Oral, Nightly digoxin, 125 mcg, Oral, Daily furosemide, 40 mg, IntraVENous, Daily melatonin, 3 mg, Oral, Nightly metoprolol tartrate, 25 mg, Oral, q8h pantoprazole, 40 mg, Oral, Nightly sodium chloride 0.9%, 5-40 mL, IntraVENous, q12h sodium chloride 0.9%, 5-40 mL, IntraVENous, q12h stomahesive in petrolatum, , Topical, q8h [2] PRN medications: acetaminophen OR acetaminophen, LORazepam, metoprolol, ondansetron ODT OR ondansetron, polyethylene glycol (PEG) 3350, sodium chloride, sodium chloride, sodium chloride, stomahesive in petrolatum [3] lactated Ringer's, 100 mL/hr, Last Rate: 100 mL/hr (06/29/25 0222) Cosigned by Mayra Ladd DO at 06/29/2025 3:38 PM EDT Associated attestation - Mayra Ladd DO - 06/29/2025 3:38 PM EDT I have personally performed a [id number] diagnostic evaluation on this patient on date of service 06/29/25. History, labs, imaging studies, and electronic medical record have been reviewed by me. This note documented by the [x]plumbing warehouse helper []EVE reflects my history, exam, and medical decision making. I have reviewed and agree with the care plan except as documented below. S/p D&C yesterday. Denied any respiratory complaints this morning. Remains on 1L O2, may require on discharge. C/w diuresis as tolerated. Discussed that she will need a follow up CT outpatient in 8 weeks. Patient's brother would like patient to follow up with pulmonary in [place]. Once establishes there can request records. Signing off, please reach out if we can be of further assistance. Images from the original note were not included. [facility] [address] [place] [address] Patient - Nancy Delacruz, Age - 59 y.o. - 1965 Room Number - OR/NONE Consulting - Rubio Mullins MD Primary Care Physician [id number] Date of Admission - 06/11/2025 10:35 PM Hospital Day - 10 Chief Complaint: vaginal bleeding Nancy Delacruz is a 59 y.o. female who pulmonary is following for acute hypoxemic respiratory failure. Patient initially presented to [facility] with complaints of vaginal bleed. Patient found to be in hemorrhagic shock requiring blood products. Patient developed respiratory failure requiring intubation. Patient was able to be weaned, path preliminary concerning for adenocarcinmoa of analytical chemist origin. Patient waiting for clinical improvement before proceeding with MARY and further surgical interventions. Patient was treated with abx and diuresis for pna and possible fluid overload. Interval History Patient wore pap overnight. Resting comfortably on 1lnc. Pt. Reports her cough has gone away. She states her breathing feels good. She denies any acute complaints. Supposed to go to the OR this afternoon for D&C with Gynecology All other systems reviewed and negative unless otherwise stated in HPI. Objective Vitals: BP (!) 139/91 Pulse 94 Temp 36.7 C (98.1 F) (Tympanic) Resp 16 Ht 5' 5" (1.651 m) Wt 156 lb 4.8 oz (70.9 kg) SpO2 93% BMI 26.01 kg/m Pulse Ox: SpO2 Av.8 % Min: 91 % Max: 100 % Supplemental O2: O2 Flow Rate (L/min): 7 L/min I/O 24HR INTAKE/OUTPUT: Intake/Output Summary (Last 24 hours) at 06/28/2025 1416 Last data filed at 06/27/2025 1800 Gross per 24 hour Intake 480 ml Output 1000 ml Net -520 ml Exam General appearance: more Awake, alert, no acute distress, sitting up in the chair. On 1 liters/min NC. When placed on RA, oxygen drops to the high 80's. HEENT: NCAT. No scleral icterus, no right/left eye discharge. Conjunctivae normal. Neck:ROM normal. No cervical lymphadenopathy Cardiovascular: RRR. Heart sounds normal. Negative for murmur, friction rub, or gallop. Pulmonary: Effort normal no respiratory distress. No stridor. Mild Rhonchi in bilateral bases, no wheezes. Abdomen: soft, no distention, no abdominal tenderness. No guarding. Musculoskeletal: ROM is limited in RUE and RLE Skin: warm and dry. Skin is not jaundiced. No rash Extremities: no clubbing or cyanosis. no lower extremity edema. Contracture in RLE secondary to stroke Neurological: patient is awake and alert, conversant. limited motion in RUE and RLE secondary to prior stroke Psychiatric: patient smiling and pleasant pleasant. Medications Current Medications Scheduled Meds[1] PRN Mediations PRN Meds[2] IV Drips/Infusions Continuous Meds[3] Labs CBC Results from last 7 days Lab Units 06/28/25 005 WBC AUTO 10*3/uL 8.0 HEMOGLOBIN g/dL 8.1* HEMATOCRIT % 28.1* PLATELETS 10*3/uL 441* BMP: Results from last 7 days Lab Units 06/28/25 0057 06/27/25 0502 06/26/25 0042 SODIUM mmol/L 143 141 142 POTASSIUM mmol/L 4.2 3.9 3.9 CHLORIDE mmol/L 104 104 104 CO2 mmol/L 29 29 30 BUN mg/dL 47* 45* 46* CREATININE mg/dL 1.18* 1.10 1.24* GLUCOSE mg/dL 101 96 98 CALCIUM mg/dL 8.2* 8.3* 8.5* ABG: Results from last 7 days Lab Units 06/22/25 0856 PH ART 7.482* PCO2 ART mm Hg 32.5* PO2 ART mm Hg 79.2* HCO3 ART mmol/L 23.8 O2 SAT ART % 95.9 BASE EXC ART mmol/L 0.6 SOURCE OF OXYGEN [place] High Flow Nasal Cannula (6-15 LPM) LIVER PROFILE No lab exists for component: LABALBU INR PTT No results found for: "PTT" Cultures Sputum with rare stephanie tropicalis and respiratory amita Pna PCR negative Nasal mrsa negative Nasal pcr negative Radiology All relevant/recent imaging was personally reviewed by me. Please see official radiology report for details. Cxr personally reviewed and interpreted, compated to previous, demonstrates mild pulmonary vascular congestion, dense bilateral upper lobe infiltrates with minimal change from the prior imaging. Repeat CT chest 06/25 personally reviewed and compared to previous, demonstrates interval improvement in dense consolidation in the bilateral upper and middle/lingular lobes with interval development of more ground glass infiltrate in the corresponding regions. CT chest from 06/17/2025 personally reviewed and interpreted, no prior for comparison, demonstrates dense patchy upper lobe and middle/lingular infiltrate with small r basilar effusion Assessment Acute hypoxemic respiratory failure, improving TRALI ? PNA HFpEF Afib with RVR Endometrial hyperplasia, suspicion for adenocarcinoma Developmental delay Recommendations Patient oxygenation much improved. Goal saturations 90 and above. Currently on 1lnc, drops pretty quickly when placed on room air, may need oxygen at discharge Patient s/p abx for pna, cultures negative, Requested CT's from outside hospital. Will need follow up CT in 8-12 weeks post hospital stay to assess for resolution, requested scans from [facility]. Continue diuresis as tolerated Watch And Clock Maker And Repairer/onc, plan for D&C today, will likely need further operative intervention. Discussed with brother at bedside, recommend continued use of incentive spirometer, PT/OT and increasing patient's activity as tolerated. Pulmonary service will continue to follow [1] [Transfer Hold] atorvastatin, 20 mg, Oral, Nightly [Transfer Hold] digoxin, 125 mcg, Oral, Daily [Transfer Hold] furosemide, 40 mg, IntraVENous, Daily glycopyrrolate, , , [Transfer Hold] melatonin, 3 mg, Oral, Nightly [Transfer Hold] metoprolol tartrate, 25 mg, Oral, q8h [Transfer Hold] pantoprazole, 40 mg, Oral, Nightly [Transfer Hold] sodium chloride 0.9%, 5-40 mL, IntraVENous, q12h [Transfer Hold] sodium chloride 0.9%, 5-40 mL, IntraVENous, q12h [Transfer Hold] stomahesive in petrolatum, , Topical, q8h [2] PRN medications: [Transfer Hold] acetaminophen OR [Transfer Hold] acetaminophen, glycopyrrolate, [Transfer Hold] LORazepam, [Transfer Hold] metoprolol, [Transfer Hold] ondansetron ODT OR [Transfer Hold] ondansetron, [Transfer Hold] polyethylene glycol (PEG) 3350, [Transfer Hold] sodium chloride, [Transfer Hold] sodium chloride, [Transfer Hold] sodium chloride, [Transfer Hold] stomahesive in petrolatum [3] lactated Ringer's, 100 mL/hr, Last Rate: 100 mL/hr (06/28/25 1015) Cosigned by Mayra Ladd DO at 06/28/2025 3:12 PM EDT Associated attestation - Mayra Ladd DO - 06/28/2025 3:12 PM EDT I have personally performed a [id number] diagnostic evaluation on this patient on date of service 06/28/25. History, labs, imaging studies, and electronic medical record have been reviewed by me. This note documented by the [x]plumbing warehouse helper []EVE reflects my history, exam, and medical decision making. I have reviewed and agree with the care plan except as documented below. Denied any cough or dyspnea today. Still requiring 1L O2. Records from OSH requested. Family at bedside, discussed that patient will also need follow up imaging outpatient. Planned for D&C today. Will follow up with patient tomorrow. Images from the original note were not included. PHYSICAL THERAPY [facility] Name/MRN: Nancy Delacruz ([id number]) Date: 06/28/2025 Treatment is being deferred at present because pt is currently off of the floor . Shant Shea, PT Hospitalist Progress Note 06/28/2025 10:57 AM [phone]: Please page me for patient care issues. [phone]: Please page [facility] night Hospitalist for any issues. Subjective: Admit Date: 06/11/2025 PCP: SABRINA DURAN Room#: H-5125/H-5125 A Interval History: 59 yo F Hx of developmental delay, A-fib, HTN, HLD, CVA w/ residual right-sided deficits who presented from [facility] where she presented for hemorrhagic shock 2/2 vaginal bleeding and required 4 units of PRBC. Found to have endometrial carcinoma, confirmed with biopsy. Transferred to [facility] for further care with plan for hysterectomy, bilateral salpingo-oophorectomy, sentinel lymphadenectomy for 06/18. On 06/17 patient developed worsening dyspnea and Afib w/ RVR and was transferred to the ICU for management of acute hypoxic respiratory failure likely 2/2 TRALI and needed NIV, now weaned to Nasal cannula w/ nocturnal pap. DISTANCE LEARNING PROGRAM COORDINATOR/ONC following and planning for D&C with levonorgestrel intrauterine device in the interim. Eventual plan for laparoscopic hysterectomy, bilateral salpingo-oophorectomy, bilateral sentinel lymphadenectomy when more medically stable. Seen by cards and med adjustments made with better HRs. No OAC until vaginal bleeding issues resolved. Possible cardioversion down the road. Patient stabilized and transferred [place] of ICU [place] [facility] [place]. 06/26 Patient seen and examined.procedure was canceled secondary to worsening respiratory status Patient lying in bed. family at bedside .denies shortness of breath On nasal cannula oxygen Reviewed labs in detail as below Discussed with TCC and nursing Care plan discussed CT chest Bilateral patchy consolidative and groundglass infiltrates within the upper lobes and superior segment of lower lobes. Trace right pleural effusion. Shotty mediastinal lymph nodes measuring up to 8 mm is nonspecific finding. 10/ Pt awake Reports SOB stable today No CP Shreya PO 10/2 Pt awake No CP Per staff some issues with anxiety at times Past Medical History: Medical History[1] NPO diet with enteral medications @[email or web address]@ Medications: Continuous Meds[2] Scheduled Meds[3] LABS: CBC: Recent Labs 06/26/252 06/27/2550106/28/2556 WBC 8.1 6.8 8.0 RBC 3.28* 3.42* 3.41* HGB 7.8* 8.1* 8.1* HCT 27.3* 28.5* 28.1* MCV 83.2 83.3 82.4 RDW 21.5* 21.0* 21.3* PLT 480* 424 441* BMP: Recent Labs 06/26/254106/27/2550106/28/2556 NA 142 141 143 K 3.9 3.9 4.2 CL 104 104 104 CO2 30 29 29 BUN 46* 45* 47* CREATININE 1.24* 1.10 1.18* GLUCOSE 98 96 101 CALCIUM 8.5* 8.3* 8.2* ANIONGAP 8 8 10 LIVER PROFILE:No results for input(s): "AST", "ALT", "BILITOT", "ALKPHOS", "PROT" in the last 72 hours. No lab exists for component: LABALBU PT/INR: No results for input(s): "PROTIME", "INR" in the last 72 hours. CARDIAC ENZYMES: No results for input(s): "TROPONINI" in the last 72 hours. Procalcitonin: No results found for: "PROCAL" I reviewed: [x] laboratory results [x] radiographic results At the time of today's encounter. Pt was informed about the results. Objective: Vitals: BP 123/86 (BP Location: Left arm, Patient Position: Lying) Pulse 69 Temp 36.4 C (97.5 F) (Temporal) Resp 18 Ht 5' 5" (1.651 m) Wt 156 lb 4.8 oz (70.9 kg) SpO2 95% BMI 26.01 kg/m Pulse Ox: SpO2 Av.8 % Min: 91 % Max: 95 % Supplemental O2: O2 Flow Rate (L/min): 1 L/min General appearance: No apparent distress, Cardiovascular: irreg Respiratory: Decreased breath sounds bibasilar Abdomen: Soft, non-tender, non-distended with normal bowel sounds. Musculoskeletal: No obvious deformities seen Skin: sacral wound Neurology- Awake alert, right upper extremity contracted Extremity- peripheral edema both lower extremities Assessment Acute problems-- Acute hypoxic respiratory failure Diffuse bilateral pulmonary infiltrates, concern for TRALI Pneumonia ruled out Atrial fibrillation with RVR HFpEF-compensated RAMEZ-resolving ? TRALI Endometrial adenocarcinoma Acute blood loss anemia Developmental delay Hx CVA with residual right sided deficits Sacral wound (POA) Chronic issues-- Medical History[4] Plan - Continue PAP with naps and at night as tolerated, supplemental O2 via NC during the day, CT chest results reviewed, pulmonary following - now off telemetry monitoring, Metoprolol 25 mg q8h for rate control, Digoxin 125 mcg PO daily, per cards will consider resuming DOAC and consider cardioversion once pt medically stable and healed from surgery ?-- will check ECG today to document rhythm-- remains afib - DISTANCE LEARNING PROGRAM COORDINATOR/ONC following and planning for D&C with levonorgestrel intrauterine device , procedure was scheduled on 06/25 canceled secondary to worsening respiratory status--plan procedure 06/28 - Eventual plan for laparoscopic hysterectomy, bilateral salpingo-oophorectomy, bilateral sentinel lymphadenectomy when more medically stable - follow H/H, transfuse prn hgb <7.0 - am labs, replace lytes prn - PT/OT/CM/SW - delirium precautions: increase activity and limit nighttime disturbances Discussed with pt. Does have some situational anxiety around procedure, no history of anxiety or depression per pt or family . Will add low dose ativan PRN and follow - DVT prophylaxis: SCDs and encourage ambulation Discussed with patient family at bedside prognosis guarded Discussed with nursing staff Toxic drug monitoring/narrow therapeutic index drug monitoring : # Drug name : # Route administered : # Method of monitoring : Extended Emergency Contact Information Primary Emergency Contact: ChelseaWayne Mobile Relation: Brother Preferred language: Nigerien Secondary Emergency Contact: GeethaalissonJohana Mobile Relation: Mother Preferred language: Nigerien Advance Directive: Full Code Anticipated Discharge - Pending clinical course, consults Rubio Mullins MD, Division of Hospitalist Medicine [1] Past Medical History: Diagnosis Date A-fib (HCC) Developmental delay [2] lactated Ringer's, 100 mL/hr, Last Rate: 100 mL/hr (06/28/25 1015) [3] atorvastatin, 20 mg, Oral, Nightly digoxin, 125 mcg, Oral, Daily furosemide, 40 mg, IntraVENous, Daily melatonin, 3 mg, Oral, Nightly metoprolol tartrate, 25 mg, Oral, q8h pantoprazole, 40 mg, Oral, Nightly sodium chloride 0.9%, 5-40 mL, IntraVENous, q12h sodium chloride 0.9%, 5-40 mL, IntraVENous, q12h stomahesive in petrolatum, , Topical, q8h [4] Past Medical History: Diagnosis Date A-fib (HCC) Developmental delay Images from the original note were not included. DISTANCE LEARNING PROGRAM COORDINATOR Progress Note Please page the [facility] DISTANCE LEARNING PROGRAM COORDINATOR ONC Call RES group via Secure Chat for any questions or concerns. Date: 06/28/2025 Time: 6:18 AM Nancy Delacruz 59 y.o. female with PMB in the setting of endometrial carcinoma admitted to medicine for acute respiratory failure Patient seen and examined. Patient with CPAP on overnight, with family member at bedside. She has no complaints. She currently denies ongoing vaginal bleeding. She is urinating. She is passing flatus. She denies Fever/Chills, Chest Pain, SOB, N/V. Vitals: Vitals: 06/27/25201106/27/25 2012 06/28/25 0435 06/28/25 0527 BP: 132/78 132/78 123/86 BP Location: Left arm Patient Position: Lying Pulse: 76 76 58 69 Resp: 18 Temp: 36.4 C (97.5 F) TempSrc: Temporal SpO2: 91% 95% Weight: 156 lb 4.8 oz (70.9 kg) Height: Intake/Output: Current Shift: No intake/output data recorded. Physical Exam: Gen: NAD, alert and cooperative HEENT: Normocephalic, atraumatic, EOMI, MMM Resp: CPAP machine in place, increase work in breathing Ext: No LE edema, no calf tenderness or swelling Medications: Current Medications[1] Diagnostics: ECG 12 lead Result Date: 06/12/2025 Atypical Atrial flutter vs coarse Atrial fibrillation LVH with secondary repolarization abnormality Electronically Signed On 06-12-2025 17:39:43 EDT by Ligai Lackey XR chest 1 view Result Date: 06/12/2025 Patient Name: [facility]ANC[facility]CRUZ [facility] 1965 [id number] Exam Date/Time: 06/12/2025 10:56 Procedure: XR CHEST 1 VIEW Ordering Provider: FRANKLIN JAMES Reason For Exam: R IJ CVC issues; confirm correct positioning PORTABLE CHEST X-RAY CLINICAL INDICATION: Line placement A portable frontal view of the chest was obtained. COMPARISON: None FINDINGS: Heart size is within normal limits. Right jugular catheter terminates in the expected location of the superior vena cava. Low lung volumes are present. There is coarse infiltrate within the lateral aspect of the left midlung and within the right infrahilar region. No large pleural effusion or pneumothorax is seen. There are degenerative changes of the spine. Right jugular catheter terminates in the expected location of the superior vena cava. No pneumothorax is seen. Coarse bilateral infiltrates, most confluent within the lateral aspect of the left midlung. Follow-up to clearing is recommended. No prior examinations are available. Report Dictated on Electronically Signed By: Carlos Neal MD Electronically Signed Date/Time: 06/12/2025 11:18 AM EDT Assessment/Plan: Nancy Delacruz 59 y.o. female Post menopausal bleeding Endometrial adenocarcinoma Acute blood loss anemia - Hgb 8.1 today, denies continued vaginal bleeding - Plan for Dilation and curettage with LNG-IUD at noon today - Consent re-signed with family member, Wayne (Brother) at bedside to witness - Discussed r/b to procedure again today - NPO/IVF since midnight - Patient agreeable to proceeding Acute Respiratory failure Hx A-Fib HTN/HLD - Patient initially planned to go to OR on 06/26 however due to desaturing in pre-op, procedure re-scheduled - Patient's O2 requirements have continued to diminish, now down to 1 L O2 - Per primary, cleared for procedure today - Rest of care per primary, appreciate coordination of care Principal Problem: Vaginal bleeding Active Problems: Acute hypoxemic respiratory failure (HCC) Atrial fibrillation (HCC) Acute blood loss anemia Please page the [facility] DISTANCE LEARNING PROGRAM COORDINATOR ONC Call RES group via Secure Chat for any questions or concerns. Judith Xie DO 06/28/2025, 6:18 AM [1] Current Facility-Administered Medications: acetaminophen (Tylenol) tablet 650 mg, 650 mg, Oral, q6h PRN, 650 mg at 06/23/252019 OR acetaminophen (Tylenol) suppository 650 mg, 650 mg, Rectal, q6h PRN, Catherine Neopaney, DO atorvastatin (Lipitor) tablet 20 mg, 20 mg, Oral, Nightly, Catherine Neopaney, DO, 20 mg at 06/27/252011 digoxin (Lanoxin) tablet 125 mcg, 125 mcg, Oral, Daily, Bryan Arenas, DO, 125 mcg at 06/27/25 0947 furosemide (Lasix) injection 40 mg, 40 mg, IntraVENous, Daily, Rafy Patrick, DO, 40 mg at 06/27/25 1224 lactated Ringer's infusion, 100 mL/hr, IntraVENous, Continuous, Judith Xie DO, Last Rate: 100 mL/hr at 06/28/25 0048, 100 mL/hr at 06/28/25 0048 melatonin tablet 3 mg, 3 mg, Oral, Nightly, Catherine Neopaney, DO, 3 mg at 06/27/252011 metoprolol tartrate (Lopressor) injection 5 mg, 5 mg, IntraVENous, q6h PRN, Catherine Neopaney, DO, 5 mg at 06/18/25 1118 metoprolol tartrate (Lopressor) tablet 25 mg, 25 mg, Oral, q8h, Catherine Neopaney, DO, 25 mg at 06/27/252011 ondansetron ODT (Zofran-ODT) disintegrating tablet 4 mg, 4 mg, Oral, q8h PRN OR ondansetron (Zofran) injection 4 mg, 4 mg, IntraVENous, q6h PRN, Catherine Neopaney, DO pantoprazole (ProtoNix) EC tablet 40 mg, 40 mg, Oral, Nightly, 40 mg at 06/27/252011 OR [DISCONTINUED] pantoprazole (ProtoNix) 40 mg in sodium chloride (PF) 0.9 % 10 mL injection, 40 mg, IntraVENous, Nightly, Sy Bloom MD polyethylene glycol (PEG) 3350 (Miralax) packet 17 g, 17 g, Oral, Daily PRN, Catherine Neopaney, DO, 17 g at 06/23/25 0904 sodium chloride 0.9 % infusion, 5-250 mL/hr, IntraVENous, PRN, Catherine Neopaney, DO sodium chloride 0.9 % infusion, 5-250 mL/hr, IntraVENous, PRN, Catherine Neopaney, DO sodium chloride 0.9 % infusion, 250 mL/hr, IntraVENous, PRN, Catherine Neopaney, DO sodium chloride 0.9% (NS) flush 5-40 mL, 5-40 mL, IntraVENous, q12h, Catherine Neopaney, DO, 10 mL at 06/28/25 0048 sodium chloride 0.9% (NS) flush 5-40 mL, 5-40 mL, IntraVENous, q12h, Catherine Neopaney, DO, 10 mL at 06/28/25 0049 stomahesive in petrolatum (ET Mix), , Topical, q8h, Catherine Neopaney, DO, Given at 06/27/25 2217 stomahesive in petrolatum (ET Mix), , Topical, PRN, Catherine Neopaney, DO, Given at 06/23/25 0904 Cosigned by David Ortega MD at 06/29/2025 11:04 AM EDT Associated attestation - David Ortega MD - 06/29/2025 11:04 AM EDT Attending Supervising Physician's Attestation Statement I performed a history and physical examination on the patient and discussed the management with the resident physician. I reviewed and agree with the findings and plan as documented in her note. To OR for dilation and curettage, levonorgestrel intrauterine device placement. Hospitalist Progress Note 06/27/2025 11:01 AM [phone]: Please page me for patient care issues. [phone]: Please page [facility] night Hospitalist for any issues. Subjective: Admit Date: 06/11/2025 PCP: SABRINA DURAN Room#: H-5125/H-5125 A Interval History: 59 yo F Hx of developmental delay, A-fib, HTN, HLD, CVA w/ residual right-sided deficits who presented from [facility] where she presented for hemorrhagic shock 2/2 vaginal bleeding and required 4 units of PRBC. Found to have endometrial carcinoma, confirmed with biopsy. Transferred to [facility] for further care with plan for hysterectomy, bilateral salpingo-oophorectomy, sentinel lymphadenectomy for 06/18. On 06/17 patient developed worsening dyspnea and Afib w/ RVR and was transferred to the ICU for management of acute hypoxic respiratory failure likely 2/2 TRALI and needed NIV, now weaned to Nasal cannula w/ nocturnal pap. DISTANCE LEARNING PROGRAM COORDINATOR/ONC following and planning for D&C with levonorgestrel intrauterine device in the interim. Eventual plan for laparoscopic hysterectomy, bilateral salpingo-oophorectomy, bilateral sentinel lymphadenectomy when more medically stable. Seen by cards and med adjustments made with better HRs. No OAC until vaginal bleeding issues resolved. Possible cardioversion down the road. Patient stabilized and transferred out of ICU [place] [facility] hospitalist service. 06/26 Patient seen and examined.procedure was canceled secondary to worsening respiratory status Patient lying in bed. family at bedside .denies shortness of breath On nasal cannula oxygen Reviewed labs in detail as below Discussed with TCC and nursing Care plan discussed CT chest Bilateral patchy consolidative and groundglass infiltrates within the upper lobes and superior segment of lower lobes. Trace right pleural effusion. Shotty mediastinal lymph nodes measuring up to 8 mm is nonspecific finding. 06/27 Pt awake Reports SOB stable today No CP Shreya PO Past Medical History: Medical History[1] Adult diet Regular @[id number]@ Medications: Continuous Meds[2] Scheduled Meds[3] LABS: CBC: Recent Labs 06/25/25 0058 06/26/25 0042 06/27/25 0502 WBC 9.2 8.1 6.8 RBC 3.13* 3.28* 3.42* HGB 7.5* 7.8* 8.1* HCT 26.1* 27.3* 28.5* MCV 83.4 83.2 83.3 RDW 21.8* 21.5* 21.0* PLT 452* 480* 424 BMP: Recent Labs 06/25/25 0058 06/26/25 0042 06/27/25 0502 NA 139 142 141 K 4.3 3.9 3.9 CL 106 104 104 CO2 25 30 29 BUN 40* 46* 45* CREATININE 1.15* 1.24* 1.10 GLUCOSE 99 98 96 CALCIUM 8.2* 8.5* 8.3* ANIONGAP 8 8 8 LIVER PROFILE:No results for input(s): "AST", "ALT", "BILITOT", "ALKPHOS", "PROT" in the last 72 hours. No lab exists for component: LABALBU PT/INR: No results for input(s): "PROTIME", "INR" in the last 72 hours. CARDIAC ENZYMES: No results for input(s): "TROPONINI" in the last 72 hours. Procalcitonin: No results found for: "PROCAL" I reviewed: [x] laboratory results [x] radiographic results At the time of today's encounter. Pt was informed about the results. Objective: Vitals: BP 120/67 (BP Location: Left arm, Patient Position: Lying) Pulse 82 Comment: Heart Rate via Continuous Pulse Ox Temp 36.6 C (97.8 F) (Temporal) Resp 20 Ht 5' 5" (1.651 m) Wt 189 lb (85.7 kg) SpO2 97% BMI 31.45 kg/m Pulse Ox: SpO2 Av.6 % Min: 94 % Max: 97 % Supplemental O2: O2 Flow Rate (L/min): 10 L/min General appearance: No apparent distress, Cardiovascular: RRR-- ectopy Respiratory: Decreased breath sounds bibasilar Abdomen: Soft, non-tender, non-distended with normal bowel sounds. Musculoskeletal: No obvious deformities seen Skin: sacral wound Neurology- Awake alert, right upper extremity contracted Extremity- peripheral edema both lower extremities Assessment Acute problems-- Acute hypoxic respiratory failure Diffuse bilateral pulmonary infiltrates, concern for TRALI Pneumonia ruled out Atrial fibrillation with RVR HFpEF-compensated RAMEZ-resolving ? TRALI Endometrial adenocarcinoma Acute blood loss anemia Developmental delay Hx CVA with residual right sided deficits Sacral wound (POA) Chronic issues-- Medical History[4] Plan - Continue PAP with naps and at night as tolerated, supplemental O2 via NC during the day, CT chest results reviewed, pulmonary following - now off telemetry monitoring, Metoprolol 25 mg q8h for rate control, Digoxin 125 mcg PO daily, per cards will consider resuming DOAC and consider cardioversion once pt medically stable and healed from surgery ?-- will check ECG today to document rhythm - DISTANCE LEARNING PROGRAM COORDINATOR/ONC following and planning for D&C with levonorgestrel intrauterine device , procedure was scheduled on 06/25 canceled secondary to worsening respiratory status - Eventual plan for laparoscopic hysterectomy, bilateral salpingo-oophorectomy, bilateral sentinel lymphadenectomy when more medically stable - follow H/H, transfuse prn hgb <7.0 - am labs, replace lytes prn - PT/OT/CM/SW - delirium precautions: increase activity and limit nighttime disturbances - DVT prophylaxis: SCDs and encourage ambulation Discussed with patient family at bedside prognosis guarded Discussed with nursing staff Toxic drug monitoring/narrow therapeutic index drug monitoring : # Drug name : # Route administered : # Method of monitoring : Extended Emergency Contact Information Primary Emergency Contact: Wayne Delacruz Mobile Relation: Brother Preferred language: Nigerien Secondary Emergency Contact: Johana Delacruz Mobile Relation: Mother Preferred language: Nigerien Advance Directive: Full Code Anticipated Discharge - Pending clinical course, consults Rubio Mullins MD, Division of Hospitalist Medicine [1] Past Medical History: Diagnosis Date A-fib (HCC) Developmental delay [2] [3] atorvastatin, 20 mg, Oral, Nightly digoxin, 125 mcg, Oral, Daily melatonin, 3 mg, Oral, Nightly metoprolol tartrate, 25 mg, Oral, q8h pantoprazole, 40 mg, Oral, Nightly sodium chloride 0.9%, 5-40 mL, IntraVENous, q12h sodium chloride 0.9%, 5-40 mL, IntraVENous, q12h stomahesive in petrolatum, , Topical, q8h [4] Past Medical History: Diagnosis Date A-fib (HCC) Developmental delay Images from the original note were not included. [facility] [address] [place] [address] Patient - Nancy Delacruz, Age - 59 y.o. - 1965 Room Number - H-5125/-5125 A Consulting - Brit Santiago MD Primary Care Physician - SABRINA Eddi ROGER Date of Admission - 06/11/2025 10:35 PM Hospital Day - 9 Chief Complaint: vaginal bleeding Nancy Delacruz is a 59 y.o. female who pulmonary is following for acute hypoxemic respiratory failure. Patient initially presented to [facility] with complaints of vaginal bleed. Patient found to be in hemorrhagic shock requiring blood products. Patient developed respiratory failure requiring intubation. Patient was able to be weaned, path preliminary concerning for adenocarcinmoa of analytical chemist origin. Patient waiting for clinical improvement before proceeding with MARY and further surgical interventions. Patient was treated with abx and diuresis for pna and possible fluid overload. Interval History Patient wore pap overnight. Patient sitting up in chair, conversant, reports some cough, but patient and brother reports she is feeling much better. All other systems reviewed and negative unless otherwise stated in HPI. Objective Vitals: BP 120/67 (BP Location: Left arm, Patient Position: Lying) Pulse 56 Temp 36.6 C (97.8 F) (Temporal) Resp 20 Ht 5' 5" (1.651 m) Wt 189 lb (85.7 kg) SpO2 97% BMI 31.45 kg/m Pulse Ox: SpO2 Av % Min: 92 % Max: 97 % Supplemental O2: O2 Flow Rate (L/min): 10 L/min I/O 24HR INTAKE/OUTPUT: Intake/Output Summary (Last 24 hours) at 06/27/2025 06 Last data filed at 06/26/20252056 Gross per 24 hour Intake 900 ml Output 650 ml Net 250 ml Exam General appearance: more Awake, alert, no acute distress, sitting up in the chair. On 1 liters/min NC. HEENT: NCAT. No scleral icterus, no right/left eye discharge. Conjunctivae normal. Neck: ROM normal. No cervical lymphadenopathy Cardiovascular: RRR. Heart sounds normal. Negative for murmur, friction rub, or gallop. Pulmonary: Effort normal, no respiratory distress. No stridor. Rhonchi in bilateral bases, no wheezes. Abdomen: soft, no distention, no abdominal tenderness. No guarding. Musculoskeletal: ROM limited in RUE and RLE Skin: warm and dry. Skin is not jaundiced. No rash Extremities: no clubbing or cyanosis. no lower extremity edema. Contracture in RLE secondary to stroke Neurological: patient awake and alert, conversant. limited motion in RUE and RLE secondary to prior stroke Psychiatric: patient more awake, alert, smiling and pleasant. Medications Current Medications Scheduled Meds[1] PRN Mediations PRN Meds[2] IV Drips/Infusions Continuous Meds[3] Labs CBC Results from last 7 days Lab Units 06/27/25 0502 WBC AUTO 10*3/uL 6.8 HEMOGLOBIN g/dL 8.1* HEMATOCRIT % 28.5* PLATELETS 10*3/uL 424 BMP: Results from last 7 days Lab Units 06/27/25 0502 06/26/25 0042 06/25/25 0058 SODIUM mmol/L 141 142 139 POTASSIUM mmol/L 3.9 3.9 4.3 CHLORIDE mmol/L 104 104 106 CO2 mmol/L 29 30 25 BUN mg/dL 45* 46* 40* CREATININE mg/dL 1.10 1.24* 1.15* GLUCOSE mg/dL 96 98 99 CALCIUM mg/dL 8.3* 8.5* 8.2* ABG: Results from last 7 days Lab Units 06/22/25 0856 PH ART 7.482* PCO2 ART mm Hg 32.5* PO2 ART mm Hg 79.2* HCO3 ART mmol/L 23.8 O2 SAT ART % 95.9 BASE EXC ART mmol/L 0.6 SOURCE OF OXYGEN [place] High Flow Nasal Cannula (6-15 LPM) LIVER PROFILE No lab exists for component: LABALBU INR PTT No results found for: "PTT" Cultures Sputum with rare stephanie tropicalis and respiratory amita Pna PCR negative Nasal mrsa negative Nasal pcr negative Radiology All relevant/recent imaging was personally reviewed by me. Please see official radiology report for details. Cxr personally reviewed and interpreted, compated to previous, demonstrates mild pulmonary vascular congestion, dense bilateral upper lobe infiltrates with minimal change from the prior imaging. Repeat CT chest 06/25 personally reviewed and compared to previous, demonstrates interval improvement in dense consolidation in the bilateral upper and middle/lingular lobes with interval development of more ground glass infiltrate in the corresponding regions. CT chest from 06/17/2025 personally reviewed and interpreted, no prior for comparison, demonstrates dense patchy upper lobe and middle/lingular infiltrate with small r basilar effusion Assessment Acute hypoxemic respiratory failure, improving TRALI ? PNA HFpEF Afib with RVR Endometrial hyperplasia, suspicion for adenocarcinoma Developmental delay Recommendations Patient oxygenation much improved. Goal saturations 90 and above. Currently on 1lnc Patient s/p abx for pna, cultures negative, Requested CT's from outside hospital. Will need follow up CT in 8-12 weeks post hospital stay to assess for resolution Continue diuresis as tolerated Watch And Clock Maker And Repairer/onc, plan for D&C on . Discussed with brother at bedside, recommend continued use of incentive spirometer, PT/OT and increasing patient's activity as tolerated. Pulmonary service will continue to follow [1] atorvastatin, 20 mg, Oral, Nightly digoxin, 125 mcg, Oral, Daily melatonin, 3 mg, Oral, Nightly metoprolol tartrate, 25 mg, Oral, q8h pantoprazole, 40 mg, Oral, Nightly sodium chloride 0.9%, 5-40 mL, IntraVENous, q12h sodium chloride 0.9%, 5-40 mL, IntraVENous, q12h stomahesive in petrolatum, , Topical, q8h [2] PRN medications: acetaminophen OR acetaminophen, metoprolol, ondansetron ODT OR ondansetron, polyethylene glycol (PEG) 3350, sodium chloride, sodium chloride, sodium chloride, stomahesive in petrolatum [3] Cosigned by Mayra Ladd DO at 06/27/2025 12:53 PM EDT Associated attestMayra Singh DO - 06/27/2025 12:53 PM EDT I have personally performed a [id number] diagnostic evaluation on this patient on date of service 06/27/25. History, labs, imaging studies, and electronic medical record have been reviewed by me. This note documented by the [x]plumbing warehouse helper []EVE reflects my history, exam, and medical decision making. I have reviewed and agree with the care plan except as documented below. Sitting in chair at bedside this morning. Satting well on 1L O2. Denied any respiratory complaints. Cr has normalized. Would continue with diuresis. Ideally would obtain prior imaging from [place] for comparison, but regardless will need follow up imaging outpatient which the family plans to complete in [place]. Titrate off O2 NC. PT, OOBTC. Nutrition Assessment Type and Reason for Visit: Reassess Nutrition Recommendations/Plan: Continue with regular diet and Glucerna Shakes once daily. Suggest continue to document po intake in nursing flow sheets for meals and ONS RD continue to monitor overall nutritional status and follow up weekly Malnutrition Assessment: Malnutrition Status: At risk for malnutrition (Comment) (patient remains at risk due to increased needs) Context: Acute Illness Nutrition Assessment: Pt transferred to ICU 06/17 with respiratory failure requiring NIV. NIV to NC 06/18 and diet resumed. Patient transferred to 06/20. Per DISTANCE LEARNING PROGRAM COORDINATOR ONC the patient's best option is to undergo dilation and curettage and levonorgestrel intrauterine device placement when medically stable. This should temporize any bleeding and treat the hyperplasia +/- low grade endometrial adenocarcinoma until patient is medically stable to undergo hysterectomy. Plan was to proceed with Dilation and curettage, with placement of IUD yesterday (06/25) however procedure was canceled secondary to worsening respiratory status. Per notes today, patient's oxygenation much improved today. Patient down to 2L nc, more awake and alert. Patient lying in bed resting during RD visit. Patient hard to understand but did report she consumed >75% lunch today. Verified with room service patient is receiving room service assist to ensure patient receiving [address] asked it patient liked the Glucerna Shakes and patient shrugged shoulders and stated "it's okay". Will continue to provide Glucerna Shake once daily. Nutrition Related Findings: Lives with: Extended family members Primary Caregiver: Family Orientation Level: Oriented to person, Oriented to place Cognition: Follows commands Best Verbal Response: Confused Patient Behaviors/Mood: Calm, Cooperative, Appropriate for situation, Flat affect Teeth: Missing teeth Swallow: Difficulty swallowing, Pocketing food in mouth/cheeks Room Service Room Service: Assist Jose Scale Score: 13 Wound Type: (R elbow abrasion - resolved, R forearm tear - resolved) Net IO Since Admission: -5,596 mL [06/26/25 1616] Gastrointestinal (WDL): Within Defined Limits Bowel Sounds (All Quadrants): Hypoactive Abdomen Inspection: Soft, Nondistended, Rounded Last BM Date: 06/23/25, Stool Appearance: Formed, Stool Color: Brown Edema: Generalized Edema: Non-pitting, RUE Edema: Trace, LUE Edema: Trace, RLE Edema: Non-pitting, LLE Edema: Non-pitting Oxygen Therapy: Supplemental oxygen, O2 Delivery Method: Nasal cannula, O2 Flow Rate (L/min): 10 L/min Labs and meds reviewed: BMP: Recent Labs 06/24/25 0610 06/25/25 0058 06/26/25 0042 NA 137 139 142 K 4.1 4.3 3.9 CL 106 106 104 CO2 26 25 30 BUN 32* 40* 46* CREATININE 1.06 1.15* 1.24* GLUCOSE 80* 99 98 CALCIUM 8.2* 8.2* 8.5* HEPATIC: No results for input(s): "AST", "ALT", "BILITOT", "ALKPHOS" in the last 72 hours. No lab exists for component: ALB No results found for: "POCGLU" Scheduled: Scheduled Meds[1] Continuous: Continuous Meds[2] Current Nutrition Therapies: Adult diet Regular Current Oral Intake Average Meal Intake: 76-100% (lunch today however po intake has been variable) Average Supplements Intake: 51-75% Anthropometric Measures: Height: 165.1 cm (5' 5") Current Body Weight: 85.7 kg (189 lb) Weight Source: Bed Scale [place] Body Weight (lbs) (Calculated): 125 lbs [place] Body Weight (Kg) (Calculated): 57 kg % [place] Body Weight (Calculated): 150.3 % BMI (kg/m2) (Calculated): 31.5 Weight Adjustment For: No Adjustment BMI Categories: Obese Class 1 (BMI 30.0-34.9) Nutrition Interventions: Nutrition Education/Counseling: No recommendation at this time Coordination of Nutrition Care: Continue to monitor while inpatient Goals: Previous Goal Met: Progressing toward Goal(s) Goals: PO intake 75% or greater Nutrition Monitoring and Evaluation: Behavioral-Environmental Outcomes: None Identified Food/Nutrient Intake Outcomes: Food and Nutrient Intake, Supplement Intake Physical Signs/Symptoms Outcomes: Biochemical Data, GI Status, Fluid Status or Edema, Skin, Weight Discharge Planning: Too soon to determine Nadia Ricardo MS RD LD Contact: [employer] or *[phone] [1] atorvastatin, 20 mg, Oral, Nightly digoxin, 125 mcg, Oral, Daily melatonin, 3 mg, Oral, Nightly metoprolol tartrate, 25 mg, Oral, q8h pantoprazole, 40 mg, Oral, Nightly sodium chloride 0.9%, 5-40 mL, IntraVENous, q12h sodium chloride 0.9%, 5-40 mL, IntraVENous, q12h stomahesive in petrolatum, , Topical, q8h [2] Images from the original note were not included. OCCUPATIONAL THERAPY [facility] Initial Evaluation Name/MRN: Nancy Delacruz ([id number]) Evaluation Date: 06/26/2025 Date of : 1965 Admission Date: 06/11/2025 10:35 PM Age: 59 y.o. Room/Bed: -5125/H-5125 A Discharge Recommendation: Halfway Facility Assessment IMPRESSION: ADL function is below baseline. Pt would require significant assist x 2 persons for OOB standing ADLs. Fair endurance today. SPO2 >93% throughout session. OT recommends SNF at discharge to maximize functional abilities. Per chart/pt report pt required only assist x 1 at home. Admitting Diagnosis: Vaginal bleeding, acute blood loss, acute hypoxic respiratory failure. H/o developmental delay. Performance Deficits /Impairments: Increased Pain, Decreased Functional Mobility, Decreased ADL status, Decreased Strength, Decreased Safety Awareness, Decreased Endurance, Decreased Balance, Decreased ROM, Decreased High Level IADLs, Decreased Cognition, Decreased Fine Motor Control, Decreased Coordination, and Decreased Posture Prognosis: Fair Decision Making: Medium Complexity Subjective Pt is agreeable to OT with min encouragement. Handoff pt care from PT in room as pt was seated EOB. Pt denies pain. Past Medical History: Medical History[1] Past Surgical History: Surgical History[2] Admission Diagnosis: Patient Active Problem List Diagnosis Date Noted Acute hypoxemic respiratory failure (HCC) 06/17/2025 Atrial fibrillation (HCC) 06/17/2025 Acute blood loss anemia 06/17/2025 Vaginal bleeding 06/11/2025 Acute pneumonia 06/25/2025 Endometrial cancer (HCC) 06/11/2025 Medical Precautions: No active isolations Proper PPE donned/doffed in accordance with facility standards. Fall Risk: Ledesma Fall Risk Score: 100 (High Risk) Precautions/Restrictions: Fall Precautions O2 NC; Continuous pulse ox; purewick; (+) alarms Family/Caregiver Present: none Overall Cognitive Status: H/o developmental delay Arousal: WFL Attention: Min cues Command Followin-step extra time for 80% accuracy Initiation: Min cues Sequencing: Mod cues Behaviors/Mood: Calm and cooperative Social/Functional History Per chart: Patient admitted from home. Lives With: Family Type of Home: single family home Home Layout: Two Level Home and Able to Live on Main Level Home Access: Ramped Entrance Bathroom Shower/Tub: Shower Chair with Back, Walk in Shower, and Grab Bars Toilet: Standard Home Equipment: front wheeled walker, cane, and transport chair Homemaking Responsibilities: Needs Assist Receives Help From: Family Active Marine [employer]itat Resource Specialist: No Prior Level of Function Prior Level of ADL Function: Required Assist Prior Level of Mobility: Required Assist ("I walk a little or I use the transport chair") Prior Level of Transfers: Required Assist ("My family helps me") Objective ADLs LE Dressing: Dependent, socks Grooming: Pt washed faced SBA, hair combed min assist for thoroughness. Grooming completed EOB. Attempted oral care but breakfast arriving and oral care deferred. Feeding: SBA- required optimal positioning of items on tray. Upper Extremity Assessment AROM: Impaired: Right UE 75% functional movement/AROM. Pt states this is baseline and likely so given bony structures/body habitus. Right hand forms 50% functional gasp, PROM grossly WFL for volar surface skin check- intact. Right wrist favors flexion at rest with minimal active movement (passive WFL). Left UE grossly WFL Strength: Exceptions: Right NT due to ROM deficits but left UE 3+/5 throughout. Transfers/Mobility Stand pivot: Max Assist, x2 Person Assist, EOB-->recliner with talia pad in chair. Device(s) used: None AM-PAC AM-PAC Inpatient Daily Activity Raw Score: 14 ADL Inpatient [facility] G-Code Modifier: CK Plan Pt would benefit from skilled acute OT services to address Strengthening, ROM, Gait Training, Balance Training, Self-Care/ADL Training, Functional Mobility Training, Endurance Training, Safety Education and Training, Pain Management, Equipment Evaluation/Education, Cognitive Reorientation, Neuromuscular Re-Education Training, Patient/Caregiver Training, Cognitive/Perceptual Training, and Positioning. Frequency: 3x/weekfor 4 weeks Barriers: Impaired balance, Lower extremity weakness, Limited safety awareness, Decreased endurance, Upper extremity weakness, and Cognitive deficit Safety/Education Safety Safety Devices in place: All fall risk precautions in place, call light within reach, left in chair, chair alarm in place, gait belt, and patient at risk for falls Restraints: N/A Education Education Given To: patient Education Provided: OT Role and Plan of Care Education Method: Verbal Barriers to Learning: Cognition Education Outcome: Continued Education Needed Goals Patient Stated Goal: Home Encounter Problems Encounter Problems (Active) Balance Static stand x 30 seconds min assist in prep for ADLs. Start: 06/26/25 Expected End: 07/24/25 Dressings Lower Extremities Don/doff brief or pants mod assist. Start: 06/26/25 Expected End: 07/24/25 Toileting Toilet transfer mod assist. Start: 06/26/25 Expected End: 07/24/25 Therapy Time Individual Co-Treatment Co-Evaluation Time In 1116 Time Out 1132 Minutes 16 Patient's Occupational Therapy Plan of Care supervision is transferred to a [facility] Occupational Therapist. Goals and/or treatment plan was established in collaboration with patient/family/other representatives. Merlene Choe OTR/L [1] Past Medical History: Diagnosis Date A-fib (HCC) Developmental delay [2] No past surgical history on file. Images from the original note were not included. [facility] [address] [place] [address] Patient - Nancy Delacruz, Age - 59 y.o. - 1965 Room Number - [id number] A Consulting - Brit Santiago MD Primary Care Physician - SABRINA DURAN Date of Admission - 06/11/2025 10:35 PM Hospital Day - 8 Chief Complaint: vaginal bleeding Nancy Delacruz is a 59 y.o. female who pulmonary is following for acute hypoxemic respiratory failure. Patient initially presented to [facility] with complaints of vaginal bleed. Patient found to be in hemorrhagic shock requiring blood products. Patient developed respiratory failure requiring intubation. Patient was able to be weaned, path preliminary concerning for adenocarcinmoa of analytical chemist origin. Patient waiting for clinical improvement before proceeding with MARY and further surgical interventions. Patient was treated with abx and diuresis for pna and possible fluid overload. Interval History Patient's oxygenation much improved today. Patient down to 2lnc, more awake and alert. Patient's brother reports subjectively observing less cough. Last evening patient desaturated when preparing for anesthesia for D&C, the procedure was postponed. All other systems reviewed and negative unless otherwise stated in HPI. Objective Vitals: BP 118/66 (BP Location: Right arm, Patient Position: Lying) Pulse 80 Temp 36.3 C (97.3 F) (Temporal) Resp 17 Ht 5' 5" (1.651 m) Wt 189 lb (85.7 kg) SpO2 92% BMI 31.45 kg/m Pulse Ox: SpO2 Av % Min: 85 % Max: 100 % Supplemental O2: O2 Flow Rate (L/min): 10 L/min I/O 24HR INTAKE/OUTPUT: Intake/Output Summary (Last 24 hours) at 06/26/2025 1304 Last data filed at 06/26/2025 1154 Gross per 24 hour Intake 560 ml Output 1400 ml Net -840 ml Exam General appearance: more Awake, alert, no acute distress. On 2 liters/min NC. HEENT: NCAT. No scleral icterus, no right/left eye discharge. Conjunctivae normal. Neck: ROM normal. No cervical lymphadenopathy Cardiovascular: RRR. Heart sounds normal. Negative for murmur, friction rub, or gallop. Pulmonary: Effort normal, no respiratory distress. No stridor. Crackles bilateral bases, no wheezes. Abdomen: woft no distention, no abdominal tenderness. No guarding. Musculoskeletal: ROM limited in RUE and RLE Skin: warm and dry. Skin is not jaundiced. No rash Extremities: No clubbing or cyanosis. no lower extremity edema. Neurological: patient awake and alert, conversant. limited motion in RUE and RLE secondary to prior stroke Psychiatric: patient more awake, alert, smiling and pleasant. Medications Current Medications Scheduled Meds[1] PRN Mediations PRN Meds[2] IV Drips/Infusions Continuous Meds[3] Labs CBC Results from last 7 days Lab Units 06/26/25 0042 WBC AUTO 10*3/uL 8.1 HEMOGLOBIN g/dL 7.8* HEMATOCRIT % 27.3* PLATELETS 10*3/uL 480* BMP: Results from last 7 days Lab Units 06/26/25 0042 06/25/25 0058 06/24/25 0610 SODIUM mmol/L 142 139 137 POTASSIUM mmol/L 3.9 4.3 4.1 CHLORIDE mmol/L 104 106 106 CO2 mmol/L 30 25 26 BUN mg/dL 46* 40* 32* CREATININE mg/dL 1.24* 1.15* 1.06 GLUCOSE mg/dL 98 99 80* CALCIUM mg/dL 8.5* 8.2* 8.2* ABG: Results from last 7 days Lab Units 06/22/25 0856 PH ART 7.482* PCO2 ART mm Hg 32.5* PO2 ART mm Hg 79.2* HCO3 ART mmol/L 23.8 O2 SAT ART % 95.9 BASE EXC ART mmol/L 0.6 SOURCE OF OXYGEN [place]ter High Flow Nasal Cannula (6-15 LPM) LIVER PROFILE No lab exists for component: LABALBU INR PTT No results found for: "PTT" Cultures Sputum with rare stephanie tropicalis and respiratory amita Pna PCR negative Nasal mrsa negative Nasal pcr negative Radiology All relevant/recent imaging was personally reviewed by me. Please see official radiology report for details. Cxr personally reviewed and interpreted, compated to previous, demonstrates mild pulmonary vascular congestion, dense bilateral upper lobe infiltrates with minimal change from the prior imaging. Repeat CT chest 06/25 personally reviewed and compared to previous, demonstrates interval improvement in dense consolidation in the bilateral upper and middle/lingular lobes with interval development of more ground glass infiltrate in the corresponding regions. CT chest from 06/17/2025 personally reviewed and interpreted, no prior for comparison, demonstrates dense patchy upper lobe and middle/lingular infiltrate with small r basilar effusion Assessment Acute hypoxemic respiratory failure, improving TRALI ? PNA HFpEF Afib with RVR Endometrial hyperplasia, suspicion for adenocarcinoma Developmental delay Recommendations Patient oxygenation much improved. Goal saturations 90 and above. Patient s/p abx for pna, cultures negative, Given changes on CT chest plan was for bronchoscopy for airway protection and bal, however given clinical improvement will hold on bronchoscopy for now. If getting worse or not improving, would revisit bronchoscopy to evaluate for hospital acquired infection vs inflammatory or autoimmune process causing new ground glass infiltrate. Continue diuresis Discussed with analytical chemist/onc, plan for D&C on . Discussed with brother at bedside, recommend continued use of incentive spirometer, PT/OT and increasing patient's activity as tolerated. Pulmonary service will continue to follow [1] atorvastatin, 20 mg, Oral, Nightly digoxin, 125 mcg, Oral, Daily furosemide, 40 mg, IntraVENous, Once melatonin, 3 mg, Oral, Nightly metoprolol tartrate, 25 mg, Oral, q8h pantoprazole, 40 mg, Oral, Nightly sodium chloride 0.9%, 5-40 mL, IntraVENous, q12h sodium chloride 0.9%, 5-40 mL, IntraVENous, q12h stomahesive in petrolatum, , Topical, q8h [2] PRN medications: acetaminophen OR acetaminophen, metoprolol, ondansetron ODT OR ondansetron, polyethylene glycol (PEG) 3350, sodium chloride, sodium chloride, sodium chloride, stomahesive in petrolatum [3] Cosigned by Mayra Ladd DO at 06/26/2025 1:30 PM EDT Associated attestation - Mayra Ladd DO - 06/26/2025 1:30 PM EDT I have personally performed a [id number] diagnostic evaluation on this patient on date of service 06/26/25. History, labs, imaging studies, and electronic medical record have been reviewed by me. This note documented by the [x]plumbing warehouse helper []EVE reflects my history, exam, and medical decision making. I have reviewed and agree with the care plan except as documented below. Unable to complete D&C yesterday due to episode of hypoxemia. Much improved this morning. Satting well on 2L NC. Denied any respiratory symptoms. Brother at bedside also stated that patient's cough has mostly resolved. Given clinical improvement will defer bronchoscopy at this time. Will continue with one dose of diuresis today. Can trial off of NC. PT, OOBTC. Images from the original note were not included. PHYSICAL THERAPY [facility] Treatment Note Name/MRN: Nancy Delacruz ([id number]) Date of : 1965 Age: 59 y.o. Room/Bed: 5125/-5125 A Discharge Recommendation: Halfway Facility Equipment Needed: (tbd) Assessment Pt demo good effort throughout session. Required max assist for bed mobility and max assist for sit to stand transfers. Continue to rec SNF due to extensive assist needed for mobility, decreased strength & balance with high risk for falls, & decreased activity tolerance with inability to care for self. Subjective Pt resting in bed and agreeable to PT tx; RN okayed session Pain: Pt denies any current pain. Medical Precautions: No active isolations Proper PPE donned/doffed in accordance with facility standards. Fall Risk: Ledesma Fall Risk Score: 100 (High Risk) Precautions/Restrictions: Lines/Drains/Airways: external catheter, SCDs, heel protectors, 4L O2 via NC, pulse ox Overall Cognitive Status: Exceptions - Insights: decreased awareness of deficits - Initiation: requires cues for some - Sequencing: requires cues for some Overall Orientation Status: Oriented to Place and Oriented to Person Family/Caregiver Present: none Objective Bed Mobility Supine to sit: Max Assist; HOB elevated ~45 degrees and use of bed rail; assist to advance LLE and to elevate trunk Transfers/Mobility Sit to stand: Max Assist Stand to sit: Max Assist From EOB with LUE support on therapist and assist at gait belt; pt able to achieve ~80% upright posture with stand tolerance ~10 sec Device(s) used: None Balance During Session: Posture: fair Sitting - Static: Supervision Sitting - Dynamic: Min Assist Pt tolerated sitting EOB ~6 min Standing - Static: Max Assist Standing - Dynamic: Max Assist Exercises Seated BLE Exercises for improved strength & mobility Hip Flexion: seated marches x10 AAROM BLEs Hip Adduction: isometric pillow squeeze x10 Knee Long Arc Quad: x10 AROM BLEs Ankle Pumps: x10 BLEs (limited range on R) Comments: verbal and tactile cues for proper form/full ROM Plan Continue acute PT per plan of care. Safety/Education Safety Safety Devices in place: call light within reach, patient left sitting EOB, and staff present Restraints: No Education Education Given To: patient Education Provided: PT Role, PT Goals, Transfer Training, and Benefits of Increasing Activity Education Method: Verbal Barriers to Learning: None Education Outcome: Verbalized Understanding Outcome Measures AM-PAC AM-PAC Inpatient Mobility Raw Score (No Stairs) : 9 JH-HLM JH-HLM Scale: Sat at edge of bed Goals Patient Stated Goal: to get stronger Encounter Problems Encounter Problems (Active) Balance Patient will maintain dynamic sitting balance for 5 minutes with SBA in order to demonstrate improved postural control and prepare for out of bed mobility. (Progressing) Start: 06/19/25 Expected End: 07/10/25 Mobility Patient will propel the wheelchair for 20 ft and min assist in order to improve safety and independence with functional mobility. (Not Addressed) Start: 06/19/25 Expected End: 07/10/25 Transfers Patient will perform bed mobility with SBA in order to improve independence and prepare for out of bed mobility. (Progressing) Start: 06/19/25 Expected End: 07/10/25 Patient will complete functional transfer with least restrictive device with min assist in order to prepare for ambulation. (Initiated) Start: 06/19/25 Expected End: 07/10/25 Therapy Time Individual Co-treatment Time In 1103 Time Out 1115 Minutes 12 Lety Beasley, PT Hospitalist Progress Note 06/26/2025 9:42 AM [phone]: Please page me for patient care issues. [phone]: Please page [facility] night Hospitalist for any issues. Subjective: Admit Date: 06/11/2025 PCP: SABRINA DURAN Room#: H-5125/H-5125 A Interval History: 59 yo F Hx of developmental delay, A-fib, HTN, HLD, CVA w/ residual right-sided deficits who presented from [facility] where she presented for hemorrhagic shock 2/2 vaginal bleeding and required 4 units of PRBC. Found to have endometrial carcinoma, confirmed with biopsy. Transferred to [facility] for further care with plan for hysterectomy, bilateral salpingo-oophorectomy, sentinel lymphadenectomy for 06/18. On 06/17 patient developed worsening dyspnea and Afib w/ RVR and was transferred to the ICU for management of acute hypoxic respiratory failure likely 2/2 TRALI and needed NIV, now weaned to Nasal cannula w/ nocturnal pap. DISTANCE LEARNING PROGRAM COORDINATOR/ONC following and planning for D&C with levonorgestrel intrauterine device in the interim. Eventual plan for laparoscopic hysterectomy, bilateral salpingo-oophorectomy, bilateral sentinel lymphadenectomy when more medically stable. Seen by cards and med adjustments made with better HRs. No OAC until vaginal bleeding issues resolved. Possible cardioversion down the road. Patient stabilized and transferred out of ICU [place] [facility] hospital[place] service. 06/26 Patient seen and examined.procedure was canceled secondary to worsening respiratory status Patient lying in bed. family at bedside .denies shortness of breath On nasal cannula oxygen Reviewed labs in detail as below Discussed with TCC and nursing Care plan discussed CT chest Bilateral patchy consolidative and groundglass infiltrates within the upper lobes and superior segment of lower lobes. Trace right pleural effusion. Shotty mediastinal lymph nodes measuring up to 8 mm is nonspecific finding. Past Medical History: Medical History[1] NPO diet with enteral medications @[id number]@ Medications: Continuous Meds[2] Scheduled Meds[3] LABS: CBC: Recent Labs 06/24/25 0029 06/25/25 0058 06/26/25 0042 WBC 9.9 9.2 8.1 RBC 3.30* 3.13* 3.28* HGB 7.8* 7.5* 7.8* HCT 27.2* 26.1* 27.3* MCV 82.4 83.4 83.2 RDW 22.2* 21.8* 21.5* PLT 418 452* 480* BMP: Recent Labs 06/24/25 0610 06/25/25 0058 06/26/25 0042 NA 137 139 142 K 4.1 4.3 3.9 CL 106 106 104 CO2 30 BUN 32* 40* 46* CREATININE 1.06 1.15* 1.24* GLUCOSE 80* 99 98 CALCIUM 8.2* 8.2* 8.5* ANIONGAP 5 8 8 LIVER PROFILE:No results for input(s): "AST", "ALT", "BILITOT", "ALKPHOS", "PROT" in the last 72 hours. No lab exists for component: LABALBU PT/INR: No results for input(s): "PROTIME", "INR" in the last 72 hours. CARDIAC ENZYMES: No results for input(s): "TROPONINI" in the last 72 hours. Procalcitonin: No results found for: "PROCAL" I reviewed: [x] laboratory results [x] radiographic results At the time of today's encounter. Pt was informed about the results. Objective: Vitals: BP 118/66 (BP Location: Right arm, Patient Position: Lying) Pulse 80 Temp 36.3 C (97.3 F) (Temporal) Resp 17 Ht 5' 5" (1.651 m) Wt 189 lb (85.7 kg) SpO2 92% BMI 31.45 kg/m Pulse Ox: SpO2 Av % Min: 85 % Max: 100 % Supplemental O2: O2 Flow Rate (L/min): 10 L/min General appearance: No apparent distress, HEENT: Eyes: No scleral icterus No pallor Oral: Tongue is semi-moist Cardiovascular: S1S2 heard, RRR Respiratory: Decreased breath sounds bibasilar abdomen: Soft, non-tender, non-distended with normal bowel sounds. Musculoskeletal: No obvious deformities seen Skin: sacral wound Neurology- Awake alert, right upper extremity contracted Extremity- peripheral edema both lower extremities Assessment Acute problems-- Acute hypoxic respiratory failure Diffuse bilateral pulmonary infiltrates, concern for TRALI Pneumonia ruled out Atrial fibrillation with RVR HFpEF-compensated RAMEZ-resolving Endometrial adenocarcinoma Acute blood loss anemia Developmental delay Hx CVA with residual right sided deficits Sacral wound (POA) Chronic issues-- Medical History[4] Plan - Continue PAP with naps and at night as tolerated, supplemental O2 via NC during the day, CT chest results reviewed, pulmonary following - Continue telemetry monitoring, Metoprolol 25 mg q8h for rate control, Digoxin 125 mcg PO daily, per cards will consider resuming DOAC and consider cardioversion once pt medically stable and healed from surgery - DISTANCE LEARNING PROGRAM COORDINATOR/ONC following and planning for D&C with levonorgestrel intrauterine device , procedure was scheduled on 06/25 canceled secondary to worsening respiratory status - Eventual plan for laparoscopic hysterectomy, bilateral salpingo-oophorectomy, bilateral sentinel lymphadenectomy when more medically stable - follow H/H, transfuse prn hgb <7.0 - am labs, replace lytes prn - PT/OT/CM/SW - delirium precautions: increase activity and limit nighttime disturbances - DVT prophylaxis: SCDs and encourage ambulation Discussed with patient family at bedside prognosis guarded Discussed with nursing staff Toxic drug monitoring/narrow therapeutic index drug monitoring : # Drug name : # Route administered : # Method of monitoring : Extended Emergency Contact Information Primary Emergency Contact: Wayne Delacruz Mobile Relation: Brother Preferred language: Nigerien Secondary Emergency Contact: Johana Delacruz Mobile Relation: Mother Preferred language: Nigerien Advance Directive: Full Code Anticipated Discharge - Pending clinical course, consults Brit Santiago MD,MD Division of Hospitalist Medicine [1] Past Medical History: Diagnosis Date A-fib (HCC) Developmental delay [2] [3] atorvastatin, 20 mg, Oral, Nightly digoxin, 125 mcg, Oral, Daily melatonin, 3 mg, Oral, Nightly metoprolol tartrate, 25 mg, Oral, q8h pantoprazole, 40 mg, Oral, Nightly sodium chloride 0.9%, 5-40 mL, IntraVENous, q12h sodium chloride 0.9%, 5-40 mL, IntraVENous, q12h stomahesive in petrolatum, , Topical, q8h [4] Past Medical History: Diagnosis Date A-fib (HCC) Developmental delay Images from the original note were not included. [facility] [address] [place] [address] Patient - Nancy Delacruz, Age - 59 y.o. - 1965 Room Number - H-5125/H-5125 A Consulting - Brit Santiago MD Primary Care Physician - SABRINA DURAN Date of Admission - 06/11/2025 10:35 PM Hospital Day - 7 Chief Complaint: vaginal bleeding Nancy Delacruz is a 59 y.o. female who pulmonary is following for acute hypoxemic respiratory failure. Patient initially presented to [facility] with complaints of vaginal bleed. Patient found to be in hemorrhagic shock requiring blood products. Patient developed respiratory failure requiring intubation. Patient was able to be weaned, path preliminary concerning for adenocarcinmoa of analytical chemist origin. Patient waiting for clinical improvement before proceeding with MARY and further surgical interventions. Patient was treated with abx and diuresis for pna and possible fluid overload. Interval History Patient's oxygenation remains stable around 11 lnc. Patient smiling, awake and alert. Denies acute complaints. Sitting up at bedside. Following some commands. All other systems reviewed and negative unless otherwise stated in HPI. Objective Vitals: BP 117/74 (BP Location: Right arm, Patient Position: Sitting) Pulse 75 Temp 36.8 C (98.2 F) (Temporal) Resp 18 Ht 5' 5" (1.651 m) Wt 188 lb 9.6 oz (85.5 kg) SpO2 92% BMI 31.38 kg/m Pulse Ox: SpO2 Av % Min: 92 % Max: 96 % Supplemental O2: O2 Flow Rate (L/min): 11 L/min I/O 24HR INTAKE/OUTPUT: Intake/Output Summary (Last 24 hours) at 06/25/2025 1300 Last data filed at 06/25/2025 0500 Gross per 24 hour Intake 480 ml Output 1850 ml Net -1370 ml Exam General appearance: Awake, alert, no acute distress. On 11 liters/min NC. HEENT: Normocephalic, atraumatic. No scleral icterus, no right/left eye discharge. Conjunctivae normal. Neck: ROM normal, No cervical lymphadenopathy Cardiovascular: Regular rate and rhythm. Heart sounds normal. Negative for murmur, friction rub, or gallop. Pulmonary: Effort normal, no respiratory distress. No stridor. Crackles bilateral bases. Abdomen: Soft, no distention, no abdominal tenderness. No guarding. No masses. Musculoskeletal: ROM normal. Skin: Warm and dry. Skin is not jaundiced. No rash Extremities: No clubbing or cyanosis. no lower extremity edema. Neurological: patient awake and alert, limited motion in RUE and RLE secondary to prior stroke Psychiatric: patient awake, alert, smiling and pleasant. Medications Current Medications Scheduled Meds[1] PRN Mediations PRN Meds[2] IV Drips/Infusions Continuous Meds[3] Labs CBC Results from last 7 days Lab Units 06/25/25 0058 WBC AUTO 10*3/uL 9.2 HEMOGLOBIN g/dL 7.5* HEMATOCRIT % 26.1* PLATELETS 10*3/uL 452* BMP: Results from last 7 days Lab Units 06/25/25 0058 06/24/25 0610 06/23/25 0502 SODIUM mmol/L 139 137 136 POTASSIUM mmol/L 4.3 4.1 3.8 CHLORIDE mmol/L 106 106 105 CO2 mmol/L BUN mg/dL 40* 32* 29* CREATININE mg/dL 1.15* 1.06 1.11 GLUCOSE mg/dL 99 80* 88 CALCIUM mg/dL 8.2* 8.2* 8.0* ABG: Results from last 7 days Lab Units 06/22/25 0856 PH ART 7.482* PCO2 ART mm Hg 32.5* PO2 ART mm Hg 79.2* HCO3 ART mmol/L 23.8 O2 SAT ART % 95.9 BASE EXC ART mmol/L 0.6 SOURCE OF OXYGEN [place] High Flow Nasal Cannula (6-15 LPM) LIVER PROFILE Results from last 7 days Lab Units 06/19/25 0201 ALK PHOS U/L 65 BILIRUBIN TOTAL mg/dL 0.8 PROTEIN TOTAL g/dL 5.6* ALT U/L 6 AST U/L 22 INR PTT No results found for: "PTT" Cultures Sputum with rare stephanie tropicalis and respiratory amita Pna PCR negative Nasal mrsa negative Nasal pcr negative Radiology All relevant/recent imaging was personally reviewed by me. Please see official radiology report for details. Cxr personally reviewed and interpreted, compated to previous, demonstrates mild pulmonary vascular congestion, dense bilateral upper lobe infiltrates with minimal change from the prior imaging. CT chest from 06/17/2025 personally reviewed and interpreted, no prior for comparison, demonstrates dense patchy upper lobe and middle/lingular infiltrate with small r basilar effusion Assessment Acute hypoxemic respiratory failure TRALI ? PNA HFpEF Afib with RVR Endometrial hyperplasia, suspicion for adenocarcinoma Developmental delay Recommendations Patient saturating adequately on 11 lnc via salter [facility]. Goal saturations 90 and above. Patient s/p abx for pna, cultures negative, slowly increaseing oxygen requirements, trialing diuresis, without much improvement. Will repeat CT chest to further evaluate. CT chest personally reviewed and interpreted, demonstrates progression of upper lobe predominant ground glass infiltrate with the formation of some bronchiectasis. Patient s/p tx for pna, being diuresed without significant clinical improvement. Ct chest suggests inflammatory process with worsening ground glass infiltrate. Plan for bronchoscopy with BAL and airway inspection. If infectious testing negative would plan for trial of steroids. If patient's respiratory status worsens would recommend initiation of steroids, otherwise, if oxygenation stable would hold, as steroids could alter the utility of bal fluid analysis. Pulmonary service will continue to follow Attempted to call patient's brother and caregiver, but was unable to reach him to discuss possible bronchoscopy. Was able to reacfh Johana Delacruz, the patient's mother, she wishes for us to discuss with the patient's brother Wayne Delacruz. Will discuss in the morning. [1] atorvastatin, 20 mg, Oral, Nightly digoxin, 125 mcg, Oral, Daily furosemide, 40 mg, IntraVENous, q12h melatonin, 3 mg, Oral, Nightly metoprolol tartrate, 25 mg, Oral, q8h pantoprazole, 40 mg, Oral, Nightly sodium chloride 0.9%, 5-40 mL, IntraVENous, q12h sodium chloride 0.9%, 5-40 mL, IntraVENous, q12h stomahesive in petrolatum, , Topical, q8h [2] PRN medications: acetaminophen OR acetaminophen, metoprolol, ondansetron ODT OR ondansetron, polyethylene glycol (PEG) 3350, sodium chloride, sodium chloride, sodium chloride, stomahesive in petrolatum [3] Cosigned by Mayra Ladd DO at 06/25/2025 5:36 PM EDT Associated attestation - Mayra Ladd DO - 06/25/2025 5:36 PM EDT I have personally performed a [id number] diagnostic evaluation on this patient on date of service 06/25/2025. History, labs, imaging studies, and electronic medical record have been reviewed by me. This note documented by the [x]plumbing warehouse helper []EVE reflects my history, exam, and medical decision making. I have reviewed and agree with the care plan except as documented below. 59-year-old female with history of developmental delay, A-fib, CVA with residual right-sided deficits who initially presented to outside hospital for vaginal bleeding and was admitted for hemorrhagic shock. Hospital course was complicated by pulmonary edema, pneumonia, hypoxemic respiratory failure requiring intubation, and biopsy positive for endometrial adenocarcinoma. Transferred to [facility], course c/b respiratory failure requiring NIV in the ICU. Today denied any dyspnea, but noted with increasing O2 requirements, now on 12L. Repeat chest CT reviewed, has had progression of diffuse mixed solid and ground glass infiltrates. Unclear etiology, recommend for bronchoscopy with BAL, likely tomorrow afternoon. Unable to reach patient's brother to discuss, will call again tomorrow. Would continue with diuresis. Will continue to follow. Images from the original note were not included. PHYSICAL THERAPY [facility] Treatment Note Name/MRN: Nancy Delacruz ([id number]) Date of : 1965 Age: 59 y.o. Room/Bed: H-5125/H-5125 A Discharge Recommendation: Halfway Facility Equipment Needed: (tbd) Assessment The pt is making limited progress towards her goals and will continue to benefit from therapy for their functional deficits and to improve her overall functional capacity. She is a fall risk and will need 24 hour assist as well as continued therapy at discharge. SNF is recommended at discharge. Assist was needed for hygiene secondary to urinary incontinence. Overall endurance is limited and she required max assist for mobility. The pt did have multiple retrograde LOB while sitting and standing and required assist for correction. Subjective Pt in bed and agreed to PT. Pain: Pt denies any current pain. Medical Precautions: No active isolations Proper PPE donned/doffed in accordance with facility standards. Fall Risk: Ledesma Fall Risk Score: 70 (High Risk) Precautions/Restrictions: kaushal Overall Cognitive Status: Exceptions - Arousal/alertness: delayed responses to stimuli and at times - Following commands: follows one step commands with increased time and follows one step commands with repetition - Attention span: attends with cues to redirect and difficulty dividing attention - Memory: decreased recall of recent events and decreased short term memory - Safety judgement: decreased awareness of need for safety - Problem solving: assistance required to identify errors made, assistance required to correct errors made, and decreased awareness of errors - Insights: decreased awareness of deficits - Initiation: requires cues for some - Sequencing: requires cues for some Overall Orientation Status: Oriented to Person, place, year Family/Caregiver Present: sibling(s) Objective Bed Mobility Supine to sit: Max Assist Sit to supine: Max Assist Rolling to right: Max Assist Rolling to left: Max Assist Scooting: Max Assist, to EOB once seated. HOB Elevated Use of bed rail(s) Pt rolled Lt and Rt 2 times each Transfers/Mobility Sit to stand: Max Assist Stand to sit: Max Assist From EOB with therapist Device(s) used: Used therapist for support Balance During Session: Posture: fair Sitting - Static: Contact Guard Sitting - Dynamic: Mod Assist Standing - Static: Max Assist Pt sat EOB for about 10 minutes with a retrograde lean and + retrograde LOB with assist to correct periodically. Pt did use LUE to assist with balance correction. Pt stood for under a minute with therapist and max assist with a retrograde lean. Plan Continue acute PT per plan of care. Safety/Education Safety Safety Devices in place: call light within reach, left in bed, nurse notified, no alarms engaged upon entry, and brother in room. Restraints: No Education Education Given To: patient and brother Education Provided: PT Role, PT Goals, and Plan of Care Education Method: Verbal Barriers to Learning: Cognition Education Outcome: Verbalized Understanding and Continued Education Needed Outcome Measures AM-PAC AM-PAC Inpatient Mobility Raw Score (No Stairs) : 8 JH-HLM JH-HLM Scale: Sat at edge of bed Goals Patient Stated Goal: to get stronger Encounter Problems Encounter Problems (Active) Balance Patient will maintain dynamic sitting balance for 5 minutes with SBA in order to demonstrate improved postural control and prepare for out of bed mobility. (Progressing) Start: 06/19/25 Expected End: 07/10/25 Mobility Patient will propel the wheelchair for 20 ft and min assist in order to improve safety and independence with functional mobility. (Not Addressed) Start: 06/19/25 Expected End: 07/10/25 Transfers Patient will perform bed mobility with SBA in order to improve independence and prepare for out of bed mobility. (Progressing) Start: 06/19/25 Expected End: 07/10/25 Patient will complete functional transfer with least restrictive device with min assist in order to prepare for ambulation. (Not Progressing) Start: 06/19/25 Expected End: 07/10/25 Therapy Time Individual Co-treatment Time In 0955 Time Out 1020 Minutes 25 Timed Code Treatment Minutes: 25 Minutes (two FA) Shant Shea PT Hospitalist Progress Note 06/25/2025 10:49 AM [id number]: Please page me for patient care issues. [phone]: Please page [facility] night Hospitalist for any issues. Subjective: Admit Date: 06/11/2025 PCP: SABRINA DURAN Room#: H-5125/H-5125 A Interval History: 59 yo F Hx of developmental delay, A-fib, HTN, HLD, CVA w/ residual right-sided deficits who presented from [facility] where she presented for hemorrhagic shock 2/2 vaginal bleeding and required 4 units of PRBC. Found to have endometrial carcinoma, confirmed with biopsy. Transferred to [facility] for further care with plan for hysterectomy, bilateral salpingo-oophorectomy, sentinel lymphadenectomy for 06/18. On 06/17 patient developed worsening dyspnea and Afib w/ RVR and was transferred to the ICU for management of acute hypoxic respiratory failure likely 2/2 TRALI and needed NIV, now weaned to Nasal cannula w/ nocturnal pap. DISTANCE LEARNING PROGRAM COORDINATOR/ONC following and planning for D&C with levonorgestrel intrauterine device in the interim. Eventual plan for laparoscopic hysterectomy, bilateral salpingo-oophorectomy, bilateral sentinel lymphadenectomy when more medically stable. Seen by cards and med adjustments made with better HRs. No OAC until vaginal bleeding issues resolved. Possible cardioversion down the road. Patient stabilized and transferred out of ICU onto [facility] hospitalist service. 06/25 Patient seen and examined.No new event overnight Patient sitting at the edge of the bed. Physical therapy working with the patient. Denies shortness of breath On nasal cannula oxygen Reviewed labs in detail as below Discussed with TCC and nursing Care plan discussed Chest x-ray 1. Significant bilateral infiltrates. 2. Prominence of the central pulmonary vasculature consistent with moderate congestive heart failure/fluid overload. 3. Mild improvement in the aeration of the lungs when compared yesterday's study. Past Medical History: Medical History[1] NPO diet with enteral medications @[id number]@ Medications: Continuous Meds[2] Scheduled Meds[3] LABS: CBC: Recent Labs 06/23/25 0502 06/24/25 0029 06/25/25 0058 WBC 8.7 9.9 9.2 RBC 3.10* 3.30* 3.13* HGB 7.5* 7.8* 7.5* HCT 25.5* 27.2* 26.1* MCV 82.3 82.4 83.4 RDW 22.5* 22.2* 21.8* PLT 371 418 452* BMP: Recent Labs 06/23/25 0502 06/24/25 0610 06/25/25 0058 NA 136 137 139 K 3.8 4.1 4.3 CL 105 106 106 CO2 26 26 25 BUN 29* 32* 40* CREATININE 1.11 1.06 1.15* GLUCOSE 88 80* 99 CALCIUM 8.0* 8.2* 8.2* ANIONGAP 5 5 8 LIVER PROFILE:No results for input(s): "AST", "ALT", "BILITOT", "ALKPHOS", "PROT" in the last 72 hours. No lab exists for component: LABALBU PT/INR: No results for input(s): "PROTIME", "INR" in the last 72 hours. CARDIAC ENZYMES: No results for input(s): "TROPONINI" in the last 72 hours. Procalcitonin: No results found for: "PROCAL" I reviewed: [x] laboratory results [x] radiographic results At the time of today's encounter. Pt was informed about the results. Objective: Vitals: BP 117/74 (BP Location: Right arm, Patient Position: Sitting) Pulse 75 Temp 36.8 C (98.2 F) (Temporal) Resp 18 Ht 5' 5" (1.651 m) Wt 188 lb 9.6 oz (85.5 kg) SpO2 92% BMI 31.38 kg/m Pulse Ox: SpO2 Av % Min: 92 % Max: 96 % Supplemental O2: O2 Flow Rate (L/min): 11 L/min General appearance: No apparent distress, HEENT: Eyes: No scleral icterus No pallor Oral: Tongue is semi-moist Cardiovascular: S1S2 heard, RRR Respiratory: Crackles bibasilar abdomen: Soft, non-tender, non-distended with normal bowel sounds. Musculoskeletal: No obvious deformities seen Skin: sacral wound Neurology- Awake alert, right upper extremity contracted Extremity- peripheral edema both lower extremities Assessment Acute problems-- Acute hypoxic respiratory failure Diffuse bilateral pulmonary infiltrates, concern for TRALI Pneumonia ruled out Atrial fibrillation with RVR HFpEF-compensated RAMEZ-resolving Endometrial adenocarcinoma Acute blood loss anemia Developmental delay Hx CVA with residual right sided deficits Sacral wound (POA) Chronic issues-- Medical History[4] Plan - Continue PAP with naps and at night as tolerated, supplemental O2 via NC during the day, pulm following appreciate recommendations. Discussed with pulmonary okay to proceed with the procedure per DISTANCE LEARNING PROGRAM COORDINATOR. CT chest to be ordered. Continue diuresis - Continue telemetry monitoring, Metoprolol 25 mg q8h for rate control, Digoxin 125 mcg PO daily, per cards will consider resuming DOAC and consider cardioversion once pt medically stable and healed from surgery - DISTANCE LEARNING PROGRAM COORDINATOR/ONC following and planning for D&C with levonorgestrel intrauterine device today - Eventual plan for laparoscopic hysterectomy, bilateral salpingo-oophorectomy, bilateral sentinel lymphadenectomy when more medically stable - follow H/H, transfuse prn hgb <7.0 - am labs, replace lytes prn - PT/OT/CM/SW - delirium precautions: increase activity and limit nighttime disturbances - DVT prophylaxis: SCDs and encourage ambulation Discussed with patient family at bedside prognosis guarded Patient was informed about all work up and treatment plan Discussed with nursing staff Toxic drug monitoring/narrow therapeutic index drug monitoring : # Drug name : # Route administered : # Method of monitoring : Extended Emergency Contact Information Primary Emergency Contact: Wayne Delacruz Mobile Relation: Brother Preferred language: Nigerien Secondary Emergency Contact: Johana Delacruz Mobile Relation: Mother Preferred language: Nigerien Advance Directive: Full Code Anticipated Discharge - Pending clinical course, consults Brit Santiago MD,MD Division of Hospitalist Medicine [1] Past Medical History: Diagnosis Date A-fib (HCC) Developmental delay [2] [3] atorvastatin, 20 mg, Oral, Nightly digoxin, 125 mcg, Oral, Daily furosemide, 40 mg, IntraVENous, q12h melatonin, 3 mg, Oral, Nightly metoprolol tartrate, 25 mg, Oral, q8h pantoprazole, 40 mg, Oral, Nightly sodium chloride 0.9%, 5-40 mL, IntraVENous, q12h sodium chloride 0.9%, 5-40 mL, IntraVENous, q12h stomahesive in petrolatum, , Topical, q8h [4] Past Medical History: Diagnosis Date A-fib (HCC) Developmental delay Images from the original note were not included. 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 Nancy Laujamilah 59 y.o. female admitted for vaginal bleeding in the setting of endometrial carcinoma Patient was not seen and examined, this AM. Patient was in radiology to get imaging. In Discussion with RN, patient remains on 11L NC with tiffanie. Vitals: Vitals: 06/24/25 0559 06/24/25 1836 06/25/25 0500 06/25/25 0546 BP: 137/81 118/70 143/78 BP Location: Left arm Left arm Left arm Patient Position: Lying Lying Pulse: 66 95 72 Resp: 24 18 Temp: 36.9 C (98.5 F) 36.7 C (98.1 F) 36.1 C (97 F) TempSrc: Temporal Temporal Temporal SpO2: 93% 94% 96% Weight: 156 lb 3.2 oz (70.9 kg) 188 lb 9.6 oz (85.5 kg) Height: Intake/Output: Current Shift: No intake/output data recorded. Physical Exam: Not performed Medications: Current Medications[1] Diagnostics: ECG 12 lead Result Date: 06/12/2025 Atypical Atrial flutter vs coarse Atrial fibrillation LVH with secondary repolarization abnormality Electronically Signed On 06-12-2025 17:39:43 EDT by Ligia Lackey XR chest 1 view Result Date: 06/12/2025 Patient Name: NANCY DELACRUZ : 1965 Exam Date/Time: 06/12/2025 10:56 Procedure: XR CHEST 1 VIEW Ordering Provider: FRANKLIN JAMES Reason For Exam: R IJ CVC issues; confirm correct positioning PORTABLE CHEST X-RAY CLINICAL INDICATION: Line placement A portable frontal view of the chest was obtained. COMPARISON: None FINDINGS: Heart size is within normal limits. Right jugular catheter terminates in the expected location of the superior vena cava. Low lung volumes are present. There is coarse infiltrate within the lateral aspect of the left midlung and within the right infrahilar region. No large pleural effusion or pneumothorax is seen. There are degenerative changes of the spine. Right jugular catheter terminates in the expected location of the superior vena cava. No pneumothorax is seen. Coarse bilateral infiltrates, most confluent within the lateral aspect of the left midlung. Follow-up to clearing is recommended. No prior examinations are available. Report Dictated on Electronically Signed By: Carlos Neal MD Electronically Signed Date/Time: 06/12/2025 11:18 AM EDT Labs: No results displayed because visit has over 200 results. Assessment/Plan: Nancy Delacruz 59 y.o. female admitted for vaginal bleeding in the setting of endometrial carcinoma Endometrioid Adenocarcinoma Atypical Hyperplasia Acute Blood Loss Anemia TUVS 06/01 with 21mm irregular stripe. CA125 of 87. EMB 06/06 with complex atypical hyperplasia and endometrioid adenocarcinoma in setting of vaginal bleeding for indeterminate amount of time. - Plan to proceed with Dilation and curettage, with placement of IUD today - Mother is POA, noted in chart, Brother is secondary POA - Continue to transfuse as needed - Daily CBC, Hgb stable at 7.5 this AM - Patient NPO with IVF for planned procedure - Consent signed this AM with Brother, Wayne Respiratory Failure RAMEZ, resolving HTN Hx Atrial Fibrillation HLD - On 06/17 patient developed acute hypoxemic respiratory failure and was transferred to the ICU for higher level of care - Patient now out of the ICU and on 11L NC with [facility] - Management per primary Please page the [facility] DISTANCE LEARNING PROGRAM COORDINATOR ONC Call RES group via Secure Chat for any questions or concerns. Sowmya Campoverde DO 06/25/2025, 8:15 AM [1] Current Facility-Administered Medications: acetaminophen (Tylenol) tablet 650 mg, 650 mg, Oral, q6h PRN, 650 mg at 06/23/252019 OR acetaminophen (Tylenol) suppository 650 mg, 650 mg, Rectal, q6h PRN, Catherine Neopaney, DO atorvastatin (Lipitor) tablet 20 mg, 20 mg, Oral, Nightly, Catherine Neopaney, DO, 20 mg at 06/24/252099 digoxin (Lanoxin) tablet 125 mcg, 125 mcg, Oral, Daily, Bryan Cadenaodi, DO, 125 mcg at 06/24/25 1001 furosemide (Lasix) injection 40 mg, 40 mg, IntraVENous, q12h, Kvng Sandoval MD, 40 mg at 06/25/25 0048 lactated Ringer's infusion, 75 mL/hr, IntraVENous, Continuous, Sowmya Campoverde DO melatonin tablet 3 mg, 3 mg, Oral, Nightly, Catherine Neopaney, DO, 3 mg at 09/28/25 2100 metoprolol tartrate (Lopressor) injection 5 mg, 5 mg, IntraVENous, q6h PRN, Catherine Neopaney, DO, 5 mg at 06/18/25 1118 metoprolol tartrate (Lopressor) tablet 25 mg, 25 mg, Oral, q8h, Catherine Neopaney, DO, 25 mg at 06/25/25 0421 ondansetron ODT (Zofran-ODT) disintegrating tablet 4 mg, 4 mg, Oral, q8h PRN OR ondansetron (Zofran) injection 4 mg, 4 mg, IntraVENous, q6h PRN, Catherine Neopaney, DO pantoprazole (ProtoNix) EC tablet 40 mg, 40 mg, Oral, Nightly, 40 mg at 06/24/252099 OR [DISCONTINUED] pantoprazole (ProtoNix) 40 mg in sodium chloride (PF) 0.9 % 10 mL injection, 40 mg, IntraVENous, Nightly, Sy Bloom MD polyethylene glycol (PEG) 3350 (Miralax) packet 17 g, 17 g, Oral, Daily PRN, Catherine Neopaney, DO, 17 g at 06/23/25 0904 sodium chloride 0.9 % infusion, 5-250 mL/hr, IntraVENous, PRN, Catherine Neopaney, DO sodium chloride 0.9 % infusion, 5-250 mL/hr, IntraVENous, PRN, Catherine Neopaney, DO sodium chloride 0.9 % infusion, 250 mL/hr, IntraVENous, PRN, Catherine Neopaney, DO sodium chloride 0.9% (NS) flush 5-40 mL, 5-40 mL, IntraVENous, q12h, Catherine Neopaney, DO, 10 mL at 06/25/25 0048 sodium chloride 0.9% (NS) flush 5-40 mL, 5-40 mL, IntraVENous, q12h, Catherine Neopaney, DO, 10 mL at 06/24/25 0029 stomahesive in petrolatum (ET Mix), , Topical, q8h, Catherine Neopaney, DO, Given at 06/25/25 0433 stomahesive in petrolatum (ET Mix), , Topical, PRN, Catherine Neopaney, DO, Given at 06/23/25 0904 Cosigned by David Ortega MD at 06/25/2025 4:20 PM EDT Associated attestation - David Ortega MD - 06/25/2025 4:20 PM EDT Attending Supervising Physician's Attestation Statement I performed a history and physical examination on the patient and discussed the management with the resident physician. I reviewed and agree with the findings and plan as documented in her note. Patient arrived in pre-op holding area with O2 sats of 83% on facemask. Clinical status and imaging reviewed with anesthesia team. They did not feel comfortable proceeding with anesthesia for concern that they would not be able to extubate after the procedure. Will defer surgery while optimizing pulmonary status. We will continue to follow along and plan for OR when medically stable. Hospitalist Progress Note 06/24/2025 1:07 PM [phone]: Please page me for patient care issues. [phone]: Please page [facility] night Hospitalist for any issues. Subjective: Admit Date: 06/11/2025 PCP: SABRINA DURAN Room#: H-5125/H-5125 A Interval History: 59 yo F Hx of developmental delay, A-fib, HTN, HLD, CVA w/ residual right-sided deficits who presented from [facility] where she presented for hemorrhagic shock 2/2 vaginal bleeding and required 4 units of PRBC. Found to have endometrial carcinoma, confirmed with biopsy. Transferred to [facility] for further care with plan for hysterectomy, bilateral salpingo-oophorectomy, sentinel lymphadenectomy for 06/18. On 06/17 patient developed worsening dyspnea and Afib w/ RVR and was transferred to the ICU for management of acute hypoxic respiratory failure likely 2/2 TRALI and needed NIV, now weaned to Nasal cannula w/ nocturnal pap. DISTANCE LEARNING PROGRAM COORDINATOR/ONC following and planning for D&C with levonorgestrel intrauterine device in the interim. Eventual plan for laparoscopic hysterectomy, bilateral salpingo-oophorectomy, bilateral sentinel lymphadenectomy when more medically stable. Seen by cards and med adjustments made with better HRs. No OAC until vaginal bleeding issues resolved. Possible cardioversion down the road. Patient stabilized and transferred out of ICU onto [facility] hospitalist service. 06/24 Patient seen and examined.No new event overnight Patient sitting up in chair. Tolerating diet On nasal cannula oxygen Reviewed labs in detail as below Discussed with TCC and nursing Care plan discussed Past Medical History: Medical History[1] Adult diet Regular @[id number]@ Medications: Continuous Meds[2] Scheduled Meds[3] LABS: CBC: Recent Labs 06/22/25 01306/22/25 0856 06/23/25 0502 06/24/25 0029 WBC 10.5 -- 8.7 9.9 RBC 3.64* -- 3.10* 3.30* HGB 8.7* 9.3 7.5* 7.8* HCT 30.0* -- 25.5* 27.2* MCV 82.4 -- 82.3 82.4 RDW 22.9* -- 22.5* 22.2* PLT 437 -- 371 418 BMP: Recent Labs 06/22/25 0135 06/23/25 0502 06/24/25 0610 NA 135* 136 137 K 4.5 3.8 4.1 CL 107 105 106 CO2 22* 26 26 BUN 30* 29* 32* CREATININE 1.21* 1.11 1.06 GLUCOSE 102 88 80* CALCIUM 8.1* 8.0* 8.2* ANIONGAP 6 5 5 LIVER PROFILE:No results for input(s): "AST", "ALT", "BILITOT", "ALKPHOS", "PROT" in the last 72 hours. No lab exists for component: LABALBU PT/INR: No results for input(s): "PROTIME", "INR" in the last 72 hours. CARDIAC ENZYMES: No results for input(s): "TROPONINI" in the last 72 hours. Procalcitonin: No results found for: "PROCAL" I reviewed: [x] laboratory results [x] radiographic results At the time of today's encounter. Pt was informed about the results. Objective: Vitals: BP 137/81 (BP Location: Left arm, Patient Position: Lying) Pulse 66 Temp 36.9 C (98.5 F) (Temporal) Resp 24 Ht 5' 5" (1.651 m) Wt 156 lb 3.2 oz (70.9 kg) SpO2 93% BMI 25.99 kg/m Pulse Ox: SpO2 Av % Min: 87 % Max: 94 % Supplemental O2: O2 Flow Rate (L/min): 11 L/min General appearance: No apparent distress, HEENT: Eyes: No scleral icterus No pallor Oral: Tongue is semi-moist Cardiovascular: S1S2 heard, RRR Respiratory: Crackles bibasilar abdomen: Soft, non-tender, non-distended with normal bowel sounds. Musculoskeletal: No obvious deformities seen Skin: sacral wound Neurology- Awake alert Extremity- peripheral edema both lower extremities Assessment Acute problems-- Acute hypoxic respiratory failure Diffuse bilateral pulmonary infiltrates, concern for TRALI Pneumonia ruled out Atrial fibrillation with RVR HFpEF-compensated RAMEZ-resolving Endometrial adenocarcinoma Acute blood loss anemia Developmental delay Hx CVA with residual right sided deficits Sacral wound (POA) Chronic issues-- Medical History[4] Plan - Continue PAP with naps and at night as tolerated, supplemental O2 via NC during the day, pulm following appreciate recommendations. Continue diuresis - Continue telemetry monitoring, Metoprolol 25 mg q8h for rate control, Digoxin 125 mcg PO daily, per cards will consider resuming DOAC and consider cardioversion once pt medically stable and healed from surgery - DISTANCE LEARNING PROGRAM COORDINATOR/ONC following and planning for D&C with levonorgestrel intrauterine device in the interim. Surgery not able to take place today 06/22 - Plan for D&C possibly on 06/25/2025 - Eventual plan for laparoscopic hysterectomy, bilateral salpingo-oophorectomy, bilateral sentinel lymphadenectomy when more medically stable - follow H/H, transfuse prn hgb <7.0 - am labs, replace lytes prn - PT/OT/CM/SW - delirium precautions: increase activity and limit nighttime disturbances - DVT prophylaxis: SCDs and encourage ambulation Patient was informed about all work up and treatment plan Discussed with nursing staff Toxic drug monitoring/narrow therapeutic index drug monitoring : # Drug name : # Route administered : # Method of monitoring : Extended Emergency Contact Information Primary Emergency Contact: Wayne Delacruz Mobile Relation: Brother Preferred language: Nigerien Secondary Emergency Contact: Johana Delacruz Mobile Relation: Mother Preferred language: Nigerien Advance Directive: Full Code Anticipated Discharge - Pending clinical course, consults Brit Santiago MD,MD Division of Hospitalist Medicine [1] No past medical history on file. [2] [3] atorvastatin, 20 mg, Oral, Nightly digoxin, 125 mcg, Oral, Daily furosemide, 40 mg, IntraVENous, q12h melatonin, 3 mg, Oral, Nightly metoprolol tartrate, 25 mg, Oral, q8h pantoprazole, 40 mg, Oral, Nightly sodium chloride 0.9%, 5-40 mL, IntraVENous, q12h sodium chloride 0.9%, 5-40 mL, IntraVENous, q12h stomahesive in petrolatum, , Topical, q8h [4] No past medical history on file. Images from the original note were not included. [facility] [place] Pulmonary [place] and [place] Medicine Patient - Nancy Delacruz, Age - 59 y.o. - 1965 Room Number - [id number] Consulting - Brit Santiago MD Primary Care Physician - SABRINA DURAN Date of Admission - 06/11/2025 10:35 PM Hospital Day - 6 Subjective/Events Past 24 hours/ROS Following for hypoxia Sitting up in bed, just finished breakfast Brother in the room, says she wore PAP last night Says they turned her O2 up yesterday when they were repositioning her and haven't turned it back down Objective Vitals height is 5' 5" (1.651 m) and weight is 156 lb 3.2 oz (70.9 kg). Her temporal temperature is 36.9 C (98.5 F). Her blood pressure is 137/81 and her pulse is 66. Her respiration is 24 and oxygen saturation is 93%. O2 Flow Rate (L/min): 11 L/min was on 8 LPM yest, currently saturating 97-99% I/O Intake/Output Summary (Last 24 hours) at 06/24/2025 1001 Last data filed at 06/24/2025 0642 Gross per 24 hour Intake 400 ml Output 475 ml Net -75 ml Wt Readings from Last 3 Encounters: 06/24/25 156 lb 3.2 oz (70.9 kg) Exam General Appearance Awake, alert, in no acute distress HEENT - normocephalic, atraumatic, sclarea is anicteric, conjunctiva is pink, nasal mucosa is normal, no congestion, external ears are intact. Neck - Supple, trachea midline Lymph nodes- no cervical lymphadenopathy Lungs Normal effort, poor air entry bilaterally, no obvious wheezing or crackles, diminished breath sounds at the bases. Cardiovascular - Heart sounds are normal. Regular rate and rhythm Abdomen - Soft, nontender Neurologic - Awake, alert, follows commands. There are no focal motor deficits grossly Skin - No bruising or bleeding, good turgor, normal warmth Extremities - No clubbing, cyanosis, edema Meds Scheduled Meds[1] Continuous Meds[2] PRN Meds[3] Labs CBC Results from last 7 days Lab Units 06/24/25 0029 WBC AUTO 10*3/uL 9.9 HEMOGLOBIN g/dL 7.8* HEMATOCRIT % 27.2* MCV fL 82.4 PLATELETS 10*3/uL 418 BMP: Results from last 7 days Lab Units 06/24/25 0610 SODIUM mmol/L 137 POTASSIUM mmol/L 4.1 CHLORIDE mmol/L 106 CO2 mmol/L 26 BUN mg/dL 32* CREATININE mg/dL 1.06 GLUCOSE mg/dL 80* Cultures Previously reviewed Resp cx mod stephanie tropicalis Radiology Yesterday's CXR Personally reviewed (See actual reports for details) Active Hospital Problem List Principal Problem: Vaginal bleeding Active Problems: Acute hypoxemic respiratory failure (HCC) Atrial fibrillation (HCC) Acute blood loss anemia Assessment and Plan 1 acute hypoxic resp failure 2 TRALI 3 PNA? 4 volume overload 5 HFpEF 6 AF, RVR 7 Endometrial hyperplasia, CA? 8 Developmental delay Plan: 1 cont to wean O2, accept sats of 90% or better 2 con noct PAP for now 3 continued diuresis, was +ve yesterday?? Start routine lasix, kidney fxn stable Case discussed with patient/family. Questions and concerns addressed. [1] atorvastatin, 20 mg, Oral, Nightly digoxin, 125 mcg, Oral, Daily melatonin, 3 mg, Oral, Nightly metoprolol tartrate, 25 mg, Oral, q8h pantoprazole, 40 mg, Oral, Nightly sodium chloride 0.9%, 5-40 mL, IntraVENous, q12h sodium chloride 0.9%, 5-40 mL, IntraVENous, q12h stomahesive in petrolatum, , Topical, q8h [2] [3] PRN medications: acetaminophen OR acetaminophen, metoprolol, ondansetron ODT OR ondansetron, polyethylene glycol (PEG) 3350, sodium chloride, sodium chloride, sodium chloride, stomahesive in petrolatum Images from the original note were not included. [facility], Pulmonary Critical Care and Sleep Medicine Patient - Nancy Delacruz, Age - 59 y.o. - 1965 Room Number - [id number] Consulting - Waqas Turner, Primary Care Physician [id number] Date of Admission - 06/11/2025 10:35 PM Hospital Day - 5 Subjective/Events Past 24 hours/ROS Following for resp failure Brother in the room, he made sure she wore the CPAP last night She looks better this morning, much less labored Objective Vitals height is 5' 5" (1.651 m) and weight is 185 lb (83.9 kg). Her temporal temperature is 36.7 C (98 F). Her blood pressure is 138/87 and her pulse is 82. Her respiration is 18 and oxygen saturation is 97%. O2 Flow Rate (L/min): 11 L/min actually currently on 8 LPM I/O Intake/Output Summary (Last 24 hours) at 06/23/2025 0945 Last data filed at 06/23/2025 0332 Gross per 24 hour Intake 120 ml Output 950 ml Net -830 ml Wt Readings from Last 3 Encounters: 06/23/25 185 lb (83.9 kg) Exam General Appearance Awake, alert, in no acute distress HEENT - normocephalic, atraumatic, sclarea is anicteric, conjunctiva is pink, nasal mucosa is normal, no congestion, external ears are intact. Neck - Supple, trachea midline Lymph nodes- no cervical lymphadenopathy Lungs Normal effort, poor air entry bilaterally, no obvious wheezing or crackles, diminished breath sounds at the bases. Cardiovascular - Heart sounds are normal. Regular rate and rhythm Abdomen - Soft Neurologic - There are no focal motor deficits grossly Skin - No bruising or bleeding, good turgor, normal warmth Extremities - No clubbing, cyanosis, edema Meds Scheduled Meds[1] Continuous Meds[2] PRN Meds[3] Labs CBC Results from last 7 days Lab Units 06/23/25 0502 WBC AUTO 10*3/uL 8.7 HEMOGLOBIN g/dL 7.5* HEMATOCRIT % 25.5* MCV fL 82.3 PLATELETS 10*3/uL 371 BMP: Results from last 7 days Lab Units 06/23/25 0502 SODIUM mmol/L 136 POTASSIUM mmol/L 3.8 CHLORIDE mmol/L 105 CO2 mmol/L 26 BUN mg/dL 29* CREATININE mg/dL 1.11 GLUCOSE mg/dL 88 Cultures Personally reviewed Radiology CXR 06/22 Personally reviewed (See actual reports for details) Active Hospital Problem List Principal Problem: Vaginal bleeding Active Problems: Acute hypoxemic respiratory failure (HCC) Atrial fibrillation (HCC) Acute blood loss anemia Assessment and Plan 1 acute hypoxic resp failure 2 TRALI after severe anemia 3 PNA? 4 volume overload 5 HFpEF 6 AF, RVR 7 endometrial hyperplasia, CA? 8 developmental delay Plan: 1 wean O2 2 cont noct BiPAP for now, may discontinue soon 3 cont diuresis, 2235 negative so far last 2 days and kidney fxn stable Case discussed with patient/family. Questions and concerns addressed. [1] atorvastatin, 20 mg, Oral, Nightly digoxin, 125 mcg, Oral, Daily melatonin, 3 mg, Oral, Nightly metoprolol tartrate, 25 mg, Oral, q8h pantoprazole, 40 mg, Oral, Nightly sodium chloride 0.9%, 5-40 mL, IntraVENous, q12h sodium chloride 0.9%, 5-40 mL, IntraVENous, q12h stomahesive in petrolatum, , Topical, q8h [2] [3] PRN medications: acetaminophen OR acetaminophen, metoprolol, ondansetron ODT OR ondansetron, polyethylene glycol (PEG) 3350, sodium chloride, sodium chloride, sodium chloride, stomahesive in petrolatum Encounter entered in error, please see other progress note from today. Hospitalist Progress Note Subjective: Admit Date: 06/11/2025 PCP: SABRINA DURAN Room#: [id number] A Brief Hospital course: 59 yo F Hx of developmental delay, A-fib, HTN, HLD, CVA w/ residual right-sided deficits who presented from [facility] where she presented for hemorrhagic shock 2/2 vaginal bleeding and required 4 units of PRBC. Found to have endometrial carcinoma, confirmed with biopsy. Transferred to [facility] for further care with plan for hysterectomy, bilateral salpingo-oophorectomy, sentinel lymphadenectomy for 06/18. On 06/17 patient developed worsening dyspnea and Afib w/ RVR and was transferred to the ICU for management of acute hypoxic respiratory failure likely 2/2 TRALI and needed NIV, now weaned to Nasal cannula w/ nocturnal pap. DISTANCE LEARNING PROGRAM COORDINATOR/ONC following and planning for D&C with levonorgestrel intrauterine device in the interim. Eventual plan for laparoscopic hysterectomy, bilateral salpingo-oophorectomy, bilateral sentinel lymphadenectomy when more medically stable. Seen by cards and med adjustments made with better HRs. No OAC until vaginal bleeding issues resolved. Possible cardioversion down the road. Patient stabilized and [place] [facility] Interval History: 06/22 ON: No overnight issues. This AM: Paged by patient's RN for severe hypoxia with O2 sat in the 50s to 70s despite supplemental intranasal oxygen at 6 L/min. Patient said to have removed her BiPAP overnight. - ABG, chest x-ray ordered - ICU consulted Updated family at bedside 06/23 ON: No acute events This AM: Patient laying in bed in no obvious respiratory distress though not very audible with her response to interview questions. -I/N O2 at 8L and satting in the 90's -Repeat Resp Cx: prelim result show few G+ve cocci, few PMN Leukocytes and rare epith cells per low power field --Hb stable at 7.5, and no new PV bleeding -Awaiting D & C procedure by DIRECT MARKETING COORDINATOR team possibly on 06/25 -follow up CXR ordered Past Medical History: Medical History[1] Adult diet Regular 24HR INTAKE/OUTPUT: Intake/Output Summary (Last 24 hours) at 06/23/20251956 Last data filed at 06/23/2025 1200 Gross per 24 hour Intake 220 ml Output -- Net 220 ml LABS: CBC: Recent Labs 06/21/25 0125 06/22/25 0135 06/22/25 0856 06/23/25 0502 WBC 8.8 10.5 -- 8.7 RBC 3.50* 3.64* -- 3.10* HGB 8.4* 8.7* 9.3 7.5* HCT 29.1* 30.0* -- 25.5* MCV 83.1 82.4 -- 82.3 RDW 22.7* 22.9* -- 22.5* PLT 460* 437 -- 371 BMP: Recent Labs 06/21/25 0125 06/22/25 0135 06/23/25 0502 NA 139 135* 136 K 4.6 4.5 3.8 CL 110* 107 105 CO2 23 22* 26 BUN 28* 30* 29* CREATININE 1.03 1.21* 1.11 GLUCOSE 83 102 88 CALCIUM 8.3* 8.1* 8.0* ANIONGAP 6 6 5 LIVER PROFILE: No results for input(s): "AST", "ALT", "BILITOT", "ALKPHOS", "PROT" in the last 72 hours. No lab exists for component: LABALBU PT/INR: No results for input(s): "PROTIME", "INR" in the last 72 hours. CARDIAC ENZYMES: No results for input(s): "TROPONINI" in the last 72 hours. Procalcitonin: No results found for: "PROCAL" COVID-19 PCR: No results for input(s): "COVID19" in the last 72 hours. Objective: Vitals: BP 147/88 (BP Location: Right arm, Patient Position: Lying) Pulse 84 Temp 37.1 C (98.8 F) (Temporal) Resp 17 Ht 5' 5" (1.651 m) Wt 185 lb (83.9 kg) SpO2 92% BMI 30.79 kg/m Pulse Ox: SpO2 Av.5 % Min: 87 % Max: 97 % Supplemental O2: O2 Flow Rate (L/min): 11 L/min Physical Exam Vitals and nursing note reviewed. HENT: Right Ear: External ear normal. Left Ear: External ear normal. Mouth/Throat: Mouth: Mucous membranes are moist. Eyes: Conjunctiva/sclera: Conjunctivae normal. Cardiovascular: Rate and Rhythm: Normal rate. Pulses: Normal pulses. Pulmonary: Effort: Pulmonary effort is normal. No respiratory distress. Abdominal: General: Bowel sounds are normal. Neurological: Mental Status: Mental status is at baseline. Comments: residual right sided deficits Psychiatric: Behavior: Behavior normal. Medications: Scheduled PRN Scheduled Meds[2] PRN Meds[3] Continuous Continuous Meds[4] Assessment Acute, acute on chronic, unstable/uncontrolled chronic problems/diagnoses: Acute hypoxic respiratory failure Diffuse bilateral pulmonary infiltrates, concern for TRALI Pneumonia ruled out Atrial fibrillation with RVR HFpEF-compensated RAMEZ-resolving Endometrial adenocarcinoma Acute blood loss anemia Developmental delay Hx CVA with residual right sided deficits Sacral wound (POA) Stable chronic problems affecting care, new non-acute diagnoses: See H&P for complete list Hypertension HLD Plan As a result of the above findings & factors, the following mgmt was pursued: - Continue PAP with naps and at night as tolerated, supplemental O2 via NC during the day, pulm following appreciate recommendations. - Continue telemetry monitoring, Metoprolol 25 mg q8h for rate control, Digoxin 125 mcg PO daily, per cards will consider resuming DOAC and consider cardioversion once pt medically stable and healed from surgery - DISTANCE LEARNING PROGRAM COORDINATOR/ONC following and planning for D&C with levonorgestrel intrauterine device in the interim. Surgery not able to take place today 06/22 - Plan for D&C possibly on 06/25/2025 - Eventual plan for laparoscopic hysterectomy, bilateral salpingo-oophorectomy, bilateral sentinel lymphadenectomy when more medically stable - follow H/H, transfuse prn hgb <7.0 - am labs, replace lytes prn - PT/OT/CM/SW - delirium precautions: increase activity and limit nighttime disturbances - DVT prophylaxis: SCDs and encourage ambulation Complexity: Acute illness or injury posing a threat to life or body function (HIGH). Risk: Prescription drug/IVF/colloid was initiated, discontinued, adjusted; or reviewed with decision to maintain current orders (MOD). Advance Directive: Full Code Anticipated Discharge - Date - 06/27/25? - Location - Home with Home Health Care vs SNF? - Pending the following - clinical course, resolution of vaginal bleeding, final specialist recs Extended Emergency Contact Information Primary Emergency Contact: SidmonikWayne navarro Mobile Relation: Brother Preferred language: Nigerien Secondary Emergency Contact: Johana Delacruz Mobile Relation: Mother Preferred language: Nigerien Waqas Turner, Division of Hospital Medicine [place]patient Medical Services[place] [1] No past medical history on file. [2] atorvastatin, 20 mg, Oral, Nightly digoxin, 125 mcg, Oral, Daily melatonin, 3 mg, Oral, Nightly metoprolol tartrate, 25 mg, Oral, q8h pantoprazole, 40 mg, Oral, Nightly sodium chloride 0.9%, 5-40 mL, IntraVENous, q12h sodium chloride 0.9%, 5-40 mL, IntraVENous, q12h stomahesive in petrolatum, , Topical, q8h [3] PRN medications: acetaminophen OR acetaminophen, metoprolol, ondansetron ODT OR ondansetron, polyethylene glycol (PEG) 3350, sodium chloride, sodium chloride, sodium chloride, stomahesive in petrolatum [4] Images from the original note were not included. PHYSICAL THERAPY [facility] Name/MRN: Nancy Delacruz ([id number]) Date: 06/22/2025 Treatment is being deferred at present because pt medical status does not allow participation: Respiratory status. Shant Shea PT Images from the original note were not included. PULMONOLOGY PROGRESS NOTE 06/22/2025 Hospital LOS: LOS: 4 days Chief Complaint: acute hypoxemic respiratory failure I saw and evaluated the patient, participating in the zepeda portions of the service. I reviewed the resident s note. I agree with the resident s findings and plan documented below. Assessment: 1 acute hypoxic resp failure 2 TRALI 3 volume overload 4 HFpEF 5 AF. RVR Plan: 1 O2 2 ABG reviewed 3 diuresis as tolerated Kvng Sandoval MD Subjective/Interval History: Early this morning patient removed her pap and [facility] states it took about 40 minutes for patients sats to climb back to normal following. Patient herself has no complaints. She does endorse increase cough, sputum and had an episode of red tinged sputum while in the room. ICU consulted to evaluate patient for increased oxygen requirements. Patient appears to be increasingly volume up based on exam and labs. Deemed stable to remain on the floor and go ahead with more aggressive diuresis. A pertinent review of systems was performed and was otherwise non-contributory except as detailed in Subjective section above. Vitals: BP 158/98 Pulse 96 Temp 36.9 C (98.5 F) (Temporal) Resp 24 Ht 5' 5" (1.651 m) Wt 193 lb 1.6 oz (87.6 kg) SpO2 96% BMI 32.13 kg/m Tmax: Temp (24hrs), Av.9 C (98.4 F), Min:36.3 C (97.4 F), Max:37.5 C (99.5 F) Intake/Output Summary (Last 24 hours) at 06/22/2025 1002 Last data filed at 06/22/2025 0342 Gross per 24 hour Intake 365 ml Output 1800 ml Net -1435 ml Hemodynamics: Cuff: Systolic (24hrs), Av , Min:141 , Max:158 /Diastolic (24hrs), Av, Min:81, Max:98 Cuff MAP: MAP (mmHg) Av.7 Min: 59 Max: 118 P: Pulse Av Min: 80 Max: 119 Observed RR: Resp Av.4 Min: 16 Max: 26 Observed O2 sats: SpO2 Av.3 % Min: 87 % Max: 100 % Intake/Output Summary (Last 24 hours) at 06/22/2025 1002 Last data filed at 06/22/2025 0342 Gross per 24 hour Intake 365 ml Output 1800 ml Net -1435 ml Physical Exam: Physical Exam Vitals and nursing note reviewed. Constitutional: General: She is not in acute distress. Appearance: She is ill-appearing. Cardiovascular: Rate and Rhythm: Normal rate. Pulmonary: Comments: Increased/labored work of breathing Musculoskeletal: Right lower leg: No edema. Left lower leg: No edema. Skin: General: Skin is warm and dry. Neurological: Mental Status: She is alert. Mental status is at baseline. Comments: Baseline neurological deficits present Data (select labs within last 24 hours): BMP: Recent Labs 06/20/2531406/21/2512406/22/25134 NA 137 139 135* K 4.3 4.6 4.5 CL 111* 110* 107 CO2 19* 23 22* BUN 33* 28* 30* CREATININE 1.15* 1.03 1.21* CALCIUM 7.4* 8.3* 8.1* LFTs: No results for input(s): "AST", "ALT", "PROT", "ALBUMIN", "BILITOT", "BILIRUBINU", "ALKPHOS", "LIPASE" in the last 72 hours. Glucose: Recent Labs 06/20/2531406/21/2512406/22/25134 GLUCOSE 77* 83 102 Procal: No results for input(s): "PROCAL" in the last 72 hours. CBC: Recent Labs 06/20/2531406/21/2512406/22/25 0135 06/22/25 0856 WBC 9.1 8.8 10.5 -- HGB 7.7* 8.4* 8.7* 9.3 HCT 25.8* 29.1* 30.0* -- PLT 339 460* 437 -- MCV 80.6 83.1 82.4 -- RDW 22.5* 22.7* 22.9* -- ABGs: Recent Labs 06/22/25 0856 PHART 7.482* [id number] 32.5* PO2ART 79.2* [id number] 23.8 [id number] [place] High Flow Nasal Cannula (6-15 LPM) Lactic Acid: No results for input(s): "LACTATE" in the last 72 hours. INR: No results for input(s): "INR" in the last 72 hours. Cardiac Injury Profile: No results for input(s): "CKTOTAL", "CKMB", "TROPONINI" in the last 72 hours. Labs in last 3 months: Lab Results Component Value Date TSH 2.80 06/12/2025 INR 1.0 06/12/2025 Microbiology: Urine Cx: No results found for: URINECX Blood Cx: Lab Results Component Value Date BLOODCX No growth at 4 days 06/17/2025 Sputum Cx: Lab Results Component Value Date RESPCULT Rare respiratory amita present. 06/18/2025 Gram Stain: Lab Results Component Value Date LABGRAM Few Epithelial cells per low power field (A) 06/18/2025 LABGRAM (A) 06/18/2025 Moderate Polymorphonuclear leukocytes per low power field LABGRAM Rare Gram positive cocci (A) 06/18/2025 PNA PCR: Lab Results Component Value Date HUMANMETAPNE Not Detected 06/18/2025 COVID19: No results found for: COVID19 Legionella Ag: Lab Results Component Value Date LEGIONELLAPN Not Detected 06/18/2025 Strep Ag: No results for input(s): "STREPPNEUMO" in the last 72 hours. Imaging: CXR portable: Results for orders placed during the hospital encounter of 06/11/25 XR chest 1 view Narrative Patient Name: NANCY DELACRUZ : 1965 Exam Date/Time: 06/20/2025 08:00 Procedure: XR CHEST 1 VIEW Ordering Provider: FLEMING HARSHA Reason For Exam: hypoxia, infection vs TRALI HISTORY: Hypoxia Frontal view the chest at 0819 hours shows hypoinflation lungs with bilateral pulmonary infiltrates and/or edema very minimally decreasing since last exam. Moderate gastric distention, osteopenia, scoliosis. Report Dictated on Electronically Signed By: Mike Mcgrath MD Electronically Signed Date/Time: 06/20/2025 9:10 AM EDT CXR (2V): No results found for this or any previous visit. CT Chest: No results found for this or any previous visit. CTA Chest: Results for orders placed during the hospital encounter of 06/11/25 CT chest angiogram w and/or wo IV contrast Narrative Patient Name: NANCY DELACRUZ : 1965 Exam Date/Time: 06/17/2025 14:39 Procedure: CT CHEST ANGIOGRAM W AND/OR WO IV CONTRAST Ordering Provider: FLEMING HARSHA Reason For Exam: Pulmonary embolism (PE) suspected, unknown D-dimer EXAM: CT Angiography Chest With Intravenous Contrast CLINICAL INDICATION: Pulmonary embolism (PE) suspected, unknown D-dimer TECHNIQUE: Axial computed tomographic angiography images of the chest with intravenous contrast. This CT exam was performed using one or more of the following dose reduction techniques: automated exposure control, adjustment of the mA and/or kV according to patient size, and/or use of iterative reconstruction technique. MIP reconstructed images were created and reviewed. COMPARISON: None. FINDINGS: PULMONARY ARTERIES: Unremarkable. No pulmonary embolism. AORTA: Thoracic aortic arch is elongated and normal in caliber. No thoracic aortic aneurysm. LUNGS AND PLEURAL SPACES: Bilateral patchy consolidation within bilateral upper, middle lingular lobes. Mild left lower lobe patchy infiltrates. Small right pleural effusion. No pneumothorax. HEART: Scant coronary artery atherosclerotic calcifications. No cardiomegaly. No significant pericardial effusion. No evidence of RV dysfunction. BONES/JOINTS: No acute fracture. No dislocation. SOFT TISSUES: Unremarkable. LYMPH NODES: Unremarkable. No enlarged lymph nodes. Impression No acute pulmonary embolism. Bilateral patchy areas of consolidation within upper, right middle and lingular lobes. Small right pleural effusion. Follow-up chest radiograph until bilateral infiltrates have resolved. Report Dictated on Electronically Signed By: Juvenal Rosas DO Electronically Signed Date/Time: 06/17/2025 4:26 PM EDT Office Spirometry Results: Other Studies: Reviewed and as per electronic record. CXR/CT images personally reviewed by me when available; salient findings summarized in A/P. Current Medications: Current Medications[1] Allergies: Allergies[2] Assessment and Plan/Recommendations: Acute hypoxemic respiratory failure requiring intubation Bilateral pulmonary infiltrates Concern for TRALI vs acute infection vs previous infection Hypovolemic shock 2/2 vaginal bleed Afib w/RVR, unclear chronicity Acute blood loss anemia Endometrial carcinoma Continue to monitor off abx Continue for aggressive diuresis, follow respiratory status Strict I/Os, wean oxygen as tolerated NIV at night with supplemental O2 during the day rest of care per primary Advance Directive: Full Code Discharge planning: per primary Case discussed with nurse and Dr. Sandoval Questions and concerns addressed. [1] Current Facility-Administered Medications: acetaminophen (Tylenol) tablet 650 mg, 650 mg, Oral, q6h PRN, 650 mg at 06/21/251952 OR acetaminophen (Tylenol) suppository 650 mg, 650 mg, Rectal, q6h PRN, Catherine Neopaney, DO atorvastatin (Lipitor) tablet 20 mg, 20 mg, Oral, Nightly, Catherine Neopaney, DO, 20 mg at 06/21/251952 digoxin (Lanoxin) tablet 125 mcg, 125 mcg, Oral, Daily, Bryan Ilodi, DO, 125 mcg at 06/22/25932 melatonin tablet 3 mg, 3 mg, Oral, Nightly, Catheirne Neopaney, DO, 3 mg at 06/21/251952 metoprolol tartrate (Lopressor) injection 5 mg, 5 mg, IntraVENous, q6h PRN, Catherine Neopaney, DO, 5 mg at 06/18/251117 metoprolol tartrate (Lopressor) tablet 25 mg, 25 mg, Oral, q8h, Catherine Neopaney, DO, 25 mg at 06/22/2532 mupirocin (Bactroban) 2 % ointment 1 Application, 1 Application, Nasal, BID, Catherine Neopaney, DO, 1 Application at 06/22/25 0933 ondansetron ODT (Zofran-ODT) disintegrating tablet 4 mg, 4 mg, Oral, q8h PRN OR ondansetron (Zofran) injection 4 mg, 4 mg, IntraVENous, q6h PRN, Catherine Neopaney, DO pantoprazole (ProtoNix) EC tablet 40 mg, 40 mg, Oral, Nightly, 40 mg at 06/21/25 1953 OR [DISCONTINUED] pantoprazole (ProtoNix) 40 mg in sodium chloride (PF) 0.9 % 10 mL injection, 40 mg, IntraVENous, Nightly, Sy Bloom MD polyethylene glycol (PEG) 3350 (Miralax) packet 17 g, 17 g, Oral, Daily PRN, Catherine Neopaney, DO, 17 g at 06/15/25 1039 sodium chloride 0.9 % infusion, 5-250 mL/hr, IntraVENous, PRN, Catherine Neopaney, DO sodium chloride 0.9 % infusion, 5-250 mL/hr, IntraVENous, PRN, Catherine Neopaney, DO sodium chloride 0.9 % infusion, 250 mL/hr, IntraVENous, PRN, Catherine Neopaney, DO sodium chloride 0.9% (NS) flush 5-40 mL, 5-40 mL, IntraVENous, q12h, Catherine Neopaney, DO, 10 mL at 06/22/25 0125 sodium chloride 0.9% (NS) flush 5-40 mL, 5-40 mL, IntraVENous, q12h, Catherine Neopaney, DO, 10 mL at 06/22/25 0125 stomahesive in petrolatum (ET Mix), , Topical, q8h, Catherine Neopaney, DO, Given at 06/22/25 0551 stomahesive in petrolatum (ET Mix), , Topical, PRN, Catherine Neopaney, DO [2] Not on File Called to patient bedside for distress. Patient was on Pap unit with 8L. Patient spO2 84%. Patient changed to [place] HFNC. Patient required 15L. Upon auscultation, patient has fine crackles throughout lung cox. RN reached out to provider and an ABG was ordered Reviewed Dr. Arenas's note from 06/21/2025. Patient ok to eat today. Not able to add on to OR schedule. Trying to schedule dilation and curettage and levonorgestrel intrauterine device placement for Wednesday. Hospitalist Progress Note Subjective: Admit Date: 06/11/2025 PCP: SABRINA DURAN Room#: [id number]/[id number] A Brief Hospital course: 59 yo F Hx of developmental delay, A-fib, HTN, HLD, CVA w/ residual right-sided deficits who presented from [facility] where she presented for hemorrhagic shock 2/2 vaginal bleeding and required 4 units of PRBC. Found to have endometrial carcinoma, confirmed with biopsy. Transferred to [facility] for further care with plan for hysterectomy, bilateral salpingo-oophorectomy, sentinel lymphadenectomy for 06/18. On 06/17 patient developed worsening dyspnea and Afib w/ RVR and was transferred to the ICU for management of acute hypoxic respiratory failure likely 2/2 TRALI and needed NIV, now weaned to Nasal cannula w/ nocturnal pap. DISTANCE LEARNING PROGRAM COORDINATOR/ONC following and planning for D&C with levonorgestrel intrauterine device in the interim. Eventual plan for laparoscopic hysterectomy, bilateral salpingo-oophorectomy, bilateral sentinel lymphadenectomy when more medically stable. Seen by cards and med adjustments made with better HRs. No OAC until vaginal bleeding issues resolved. Possible cardioversion down the road. Patient stabilized and transferred out of ICU [place] [facility] hospital[place]. Interval History: 06/22 ON: No overnight issues. This AM: Paged by patient's RN for severe hypoxia with O2 sat in the 50s to 70s despite supplemental intranasal oxygen at 6 L/min. Patient said to have removed her BiPAP overnight. - ABG, chest x-ray ordered - ICU consulted Updated family at bedside Past Medical History: Medical History[1] NPO diet with enteral medications 24HR INTAKE/OUTPUT: Intake/Output Summary (Last 24 hours) at 06/22/2025 0727 Last data filed at 06/22/2025 0342 Gross per 24 hour Intake 365 ml Output 1800 ml Net -1435 ml LABS: CBC: Recent Labs 06/20/2531406/21/2512406/22/25 013 WBC 9.1 8.8 10.5 RBC 3.20* 3.50* 3.64* HGB 7.7* 8.4* 8.7* HCT 25.8* 29.1* 30.0* MCV 80.6 83.1 82.4 RDW 22.5* 22.7* 22.9* PLT 339 460* 437 BMP: Recent Labs 06/20/2531406/21/2512406/22/25134 NA 137 139 135* K 4.3 4.6 4.5 CL 111* 110* 107 CO2 19* 23 22* BUN 33* 28* 30* CREATININE 1.15* 1.03 1.21* GLUCOSE 77* 83 102 CALCIUM 7.4* 8.3* 8.1* ANIONGAP 7 6 6 LIVER PROFILE: No results for input(s): "AST", "ALT", "BILITOT", "ALKPHOS", "PROT" in the last 72 hours. No lab exists for component: LABALBU PT/INR: No results for input(s): "PROTIME", "INR" in the last 72 hours. CARDIAC ENZYMES: No results for input(s): "TROPONINI" in the last 72 hours. Procalcitonin: No results found for: "PROCAL" COVID-19 PCR: No results for input(s): "COVID19" in the last 72 hours. Objective: Vitals: BP 156/89 Pulse 87 Temp 37.5 C (99.5 F) (Temporal) Resp 24 Ht 5' 5" (1.651 m) Wt 193 lb 1.6 oz (87.6 kg) SpO2 90% BMI 32.13 kg/m Pulse Ox: SpO2 Av.9 % Min: 90 % Max: 95 % Supplemental O2: O2 Flow Rate (L/min): 6 L/min Physical Exam Vitals and nursing note reviewed. HENT: Right Ear: External ear normal. Left Ear: External ear normal. Mouth/Throat: Mouth: Mucous membranes are moist. Eyes: Conjunctiva/sclera: Conjunctivae normal. Cardiovascular: Rate and Rhythm: Normal rate. Pulses: Normal pulses. Pulmonary: Effort: Pulmonary effort is normal. No respiratory distress. Abdominal: General: Bowel sounds are normal. Neurological: Mental Status: Mental status is at baseline. Comments: residual right sided deficits Psychiatric: Behavior: Behavior normal. Medications: Scheduled PRN Scheduled Meds[2] PRN Meds[3] Continuous Continuous Meds[4] Assessment Acute, acute on chronic, unstable/uncontrolled chronic problems/diagnoses: Acute hypoxic respiratory failure Diffuse bilateral pulmonary infiltrates, concern for TRALI Pneumonia ruled out Atrial fibrillation with RVR HFpEF-compensated RAMEZ-resolving Endometrial adenocarcinoma Acute blood loss anemia Developmental delay Hx CVA with residual right sided deficits Sacral wound (POA) Stable chronic problems affecting care, new non-acute diagnoses: See H&P for complete list Hypertension HLD Plan As a result of the above findings & factors, the following mgmt was pursued: - Continue PAP with naps and at night as tolerated, supplemental O2 via NC during the day, pulm following appreciate recommendations. - Continue telemetry monitoring, Metoprolol 25 mg q8h for rate control, Digoxin 125 mcg PO daily, per cards will consider resuming DOAC and consider cardioversion once pt medically stable and healed from surgery - DISTANCE LEARNING PROGRAM COORDINATOR/ONC following and planning for D&C with levonorgestrel intrauterine device in the interim. Surgery not able to take place today 06/22 - Plan for D&C possibly on 06/25/2025 - Eventual plan for laparoscopic hysterectomy, bilateral salpingo-oophorectomy, bilateral sentinel lymphadenectomy when more medically stable - follow H/H, transfuse prn hgb <7.0 - am labs, replace lytes prn - PT/OT/CM/SW - delirium precautions: increase activity and limit nighttime disturbances - DVT prophylaxis: SCDs and encourage ambulation Complexity: Acute illness or injury posing a threat to life or body function (HIGH). Risk: Prescription drug/IVF/colloid was initiated, discontinued, adjusted; or reviewed with decision to maintain current orders (MOD). Advance Directive: Full Code Anticipated Discharge - Date - 06/27/25? - Location - Home with Home Health Care vs SNF? - Pending the following - clinical course, resolution of vaginal bleeding, final specialist recs Extended Emergency Contact Information Primary Emergency Contact: Wayne Delacruz Mobile Relation: Brother Preferred language: Nigerien Secondary Emergency Contact: Johana Delacruz Mobile Relation: Mother Preferred language: Nigerien Waqas Turner DO Division of Hospital Medicine Inpatient Medical Services/[facility] [1] No past medical history on file. [2] atorvastatin, 20 mg, Oral, Nightly digoxin, 125 mcg, Oral, Daily melatonin, 3 mg, Oral, Nightly metoprolol tartrate, 25 mg, Oral, q8h mupirocin, 1 Application, Nasal, BID pantoprazole, 40 mg, Oral, Nightly sodium chloride 0.9%, 5-40 mL, IntraVENous, q12h sodium chloride 0.9%, 5-40 mL, IntraVENous, q12h stomahesive in petrolatum, , Topical, q8h [3] PRN medications: acetaminophen OR acetaminophen, metoprolol, ondansetron ODT OR ondansetron, polyethylene glycol (PEG) 3350, sodium chloride, sodium chloride, sodium chloride, stomahesive in petrolatum [4] Images from the original note were not included. PHYSICAL THERAPY [facility] Name/MRN: Nancy Delacruz ([id number]) Date: 06/21/2025 Pt is alert and oriented to where they can understand that therapy was being offered to them. Treatment was offered and patient refused. The reason stated by patient for refusal was pt reporting "not up for it" per discussion with nurse, pt recently completed bed mobility for pericare and was very short of breath. During attempt pt visibily short of breath taking pauses between words. Pt on 6L O2 with O2 saturation 94%. Pt agreeable for therapy to attempt tomorrow The therapist explained the proposed treatment, the expected benefits and outcome of the treatment and possible medical consequences/risks of refusal. Amir Ali, PT Hospitalist Progress Note Subjective: Admit Date: 06/11/2025 PCP: SABRINA DURAN Room#: H-5125/H-5125 A Brief Hospital course: 59 yo F Hx of developmental delay, A-fib, HTN, HLD, CVA w/ residual right-sided deficits who presented from [facility] where she presented for hemorrhagic shock 2/2 vaginal bleeding and required 4 units of PRBC. Found to have endometrial carcinoma, confirmed with biopsy. Transferred to [facility] for further care with plan for hysterectomy, bilateral salpingo-oophorectomy, sentinel lymphadenectomy for 06/18. On 06/17 patient developed worsening dyspnea and Afib w/ RVR and was transferred to the ICU for management of acute hypoxic respiratory failure likely 2/2 TRALI and needed NIV, now weaned to Nasal cannula w/ nocturnal pap. DISTANCE LEARNING PROGRAM COORDINATOR/ONC following and planning for D&C with levonorgestrel intrauterine device in the interim. Eventual plan for laparoscopic hysterectomy, bilateral salpingo-oophorectomy, bilateral sentinel lymphadenectomy when more medically stable. Seen by cards and med adjustments made with better HRs. No OAC until vaginal bleeding issues resolved. Possible cardioversion down the road. Patient stabilized and transferred out of ICU [place] [facility] hospitalist [place]. Interval History: 06/21/2025-No overnight issues. Discussed with nursing and no vaginal bleeding today when changing patient. Earlier this morning, patient took off her NC and desat to the 70s. Placed on nyla mask and eventually weaned down to 6L. Case and plan discussed with patient and bedside nurse. All questions answered. Past Medical History: Medical History[1] Adult diet Regular 24HR INTAKE/OUTPUT: Intake/Output Summary (Last 24 hours) at 06/21/2025 1431 Last data filed at 06/21/2025 1429 Gross per 24 hour Intake -- Output 1100 ml Net -1100 ml LABS: CBC: Recent Labs 06/19/25 0201 06/19/25 0912 06/20/25 0315 06/21/25 0125 WBC 9.7 -- 9.1 8.8 RBC 2.88* -- 3.20* 3.50* HGB 6.7* 9.0* 7.7* 8.4* HCT 23.7* 31.5* 25.8* 29.1* MCV 82.3 -- 80.6 83.1 RDW 24.5* -- 22.5* 22.7* PLT 353 -- 339 460* BMP: Recent Labs 06/19/25 0201 06/20/25 0315 06/21/25 0125 NA 136 137 139 K 4.2 4.3 4.6 CL 107 111* 110* CO2 22* 19* 23 BUN 33* 33* 28* CREATININE 1.16* 1.15* 1.03 GLUCOSE 86 77* 83 CALCIUM 7.9* 7.4* 8.3* ANIONGAP 7 7 6 LIVER PROFILE: Recent Labs 06/19/25 020 AST 22 ALT 6 BILITOT 0.8 ALKPHOS 65 PROT 5.6* PT/INR: No results for input(s): "PROTIME", "INR" in the last 72 hours. CARDIAC ENZYMES: No results for input(s): "TROPONINI" in the last 72 hours. Procalcitonin: No results found for: "PROCAL" COVID-19 PCR: No results for input(s): "COVID19" in the last 72 hours. Objective: Vitals: BP 148/85 Pulse 91 Temp 36.3 C (97.4 F) (Temporal) Resp (!) 26 Ht 5' 5" (1.651 m) Wt 187 lb 13.3 oz (85.2 kg) SpO2 95% BMI 31.26 kg/m Pulse Ox: SpO2 Av.8 % Min: 91 % Max: 98 % Supplemental O2: O2 Flow Rate (L/min): 6 L/min Physical Exam Cardiovascular: Rate and Rhythm: Normal rate. Pulses: Normal pulses. Pulmonary: Comments: Diminished BS bilaterally Neurological: Comments: residual right sided deficits Medications: Scheduled PRN Scheduled Meds[2] PRN Meds[3] Continuous Continuous Meds[4] Assessment Data: (CAT1) Reviewed 3 or more notes from different specialty or health system (each=1). (LOW: 2x CAT1 or independent historian MOD: 3x CAT1 or 1x CAT3 EXTENSIVE: 3x CAT1 and 1x CAT3) Acute, acute on chronic, unstable/uncontrolled chronic problems/diagnoses: Acute hypoxic respiratory failure Diffuse bilateral pulmonary infiltrates, concern for TRALI Pneumonia ruled out Atrial fibrillation with RVR HFpEF-compensated RAMEZ-resolving Endometrial adenocarcinoma Acute blood loss anemia Developmental delay Hx CVA with residual right sided deficits Sacral wound (POA) Stable chronic problems affecting care, new non-acute diagnoses: See H&P for complete list Hypertension HLD Plan As a result of the above findings & factors, the following mgmt was pursued: - nocturnal NIV, supplemental O2 via NC during the day, pulm consulted and following - observing off abx - telemetry monitoring, Metoprolol 25 mg q8h for rate control, Digoxin 125 mcg PO daily, per cards will consider resuming DOAC and consider cardioversion once pt medically stable and healed from surgery - DISTANCE LEARNING PROGRAM COORDINATOR/ONC following and planning for D&C with levonorgestrel intrauterine device in the interim. NPO after midnight in case procedure done tomorrow. Eventual plan for laparoscopic hysterectomy, bilateral salpingo-oophorectomy, bilateral sentinel lymphadenectomy when more medically stable - follow H/H, transfuse prn hgb <7.0 - am labs, replace lytes prn - PT/OT/CM/SW - delirium precautions: increase activity and limit nighttime disturbances - DVT prophylaxis: SCDs and encourage ambulation Complexity: Acute illness or injury posing a threat to life or body function (HIGH). Risk: Prescription drug/IVF/colloid was initiated, discontinued, adjusted; or reviewed with decision to maintain current orders (MOD). Advance Directive: Full Code Anticipated Discharge - Date - 06/27/25? - Location - Home with Home Health Care vs SNF? - Pending the following - clinical course, resolution of vaginal bleeding, final specialist recs Extended Emergency Contact Information Primary Emergency Contact: Wayne Delacruz Mobile Relation: Brother Preferred language: Nigerien Secondary Emergency Contact: Johana Delacruz Mobile Relation: Mother Preferred language: Nigerien Bryan Arenas DO Division of Hospital Medicine Inpatient Medical Services[place] [1] No past medical history on file. [2] atorvastatin, 20 mg, Oral, Nightly [Held by provider] digoxin, 125 mcg, Oral, Daily melatonin, 3 mg, Oral, Nightly metoprolol tartrate, 25 mg, Oral, q8h mupirocin, 1 Application, Nasal, BID pantoprazole, 40 mg, Oral, Nightly sodium chloride 0.9%, 5-40 mL, IntraVENous, q12h sodium chloride 0.9%, 5-40 mL, IntraVENous, q12h stomahesive in petrolatum, , Topical, q8h [3] PRN medications: acetaminophen OR acetaminophen, metoprolol, ondansetron ODT OR ondansetron, polyethylene glycol (PEG) 3350, sodium chloride, sodium chloride, sodium chloride, stomahesive in petrolatum [4] Images from the original note were not included. Speech-Language Pathology SPEECH LANGUAGE PATHOLOGY [facility] Dysphagia Treatment Note Patient Name: Nancy Delacruz Evaluation Date: 06/21/2025 Date of : 1965 Admission Date: 06/11/2025 10:35 PM Age: 59 y.o. Room/Bed: [facility] A Subjective Patient alert and cooperative. Seen upright in bed. Answers all basic questions with clear, strong vocal quality. Follows all basic commands. Visitors at bedside - brother, who was feeding her lunch. Current Diet: Dietary Orders (From admission, onward) Start Ordered 06/21/25 0719 Adult diet Regular Diet effective now Question: Diet type Answer: Regular 06/21/25 0718 06/20/25 1216 Supplement:Dinner; Glucerna Shake [place] Until discontinued Question Answer Comment Frequency Dinner Select supplement: Glucerna Shake [place] 06/20/25 1216 Aspiration Precautions: - Upright positioning for all PO intake - Slow rate of intake - Small bites/sips - Supervision with PO - Food cut into small bites Oxygen: Oxygen Therapy: Supplemental oxygen O2 Delivery Method: Nasal cannula O2 Flow Rate (L/min): 6 L/min Pain: Pt denies any current pain. PPE Worn: gloves Objective & Assessment Dysphagia Treatment # of Activities: 1 Dysphagia Activity 1: Assess diet tolerance Patient accepted trials of thin liquids via straw, puree solids, and regular solids from lunch tray. Fed by brother at bedside. Trials were met with clinically adequate oral bolus control, timely swallow onset per palpation, complete oral clearance, and complete oral clearance. Brother providing appropriately sized bites at an appropriate rate. One instance of coughing with Sprite via straw - first sip of a cold carbonated beverage after having warm food and milk previously as liquid wash. Suspect texture and temperature change contributed given all subsequent drinks of Sprite were met without overt s/sx of aspiration or penetration. Patient and brother endorse good tolerance of recommended diet. Patient did have an episode this am of nose bleeding and O2 decrease requiring NIV for a brief period of time. SpO2 >90% for entirety of session this date. Plan & Recommendations Plan: Recommend Regular solids and Thin liquids and meds as tolerated and the following precautions: - Upright positioning for all PO intake - Slow rate of intake - Small bites/sips - Supervision with PO - Food cut into small bites Patient has achieved all acute care SMOKEHOUSE WORKER goals. Speech therapy to sign off at this time. D/C Recommendations: No follow up therapy recommended post discharge Education Education Given: safety, swallowing strategies, diet recommendations Given To: patient and brother Response: verbalizes understanding Goals Patient Stated Goal: To finish her lunch. Encounter Problems Encounter Problems (Resolved) Swallowing Patient will participate in instrumental assessment of swallowing as appropriate (Completed) Start: 06/12/25 Expected End: 06/15/25 Resolved: 06/13/25 Swallowing Patient will tolerate the least restrictive diet consistency to allow for safe consumption of daily meals (Completed) Start: 06/13/25 Expected End: 06/27/25 Resolved: 06/21/25 Patient will demonstrate safe swallowing Intervention/techniques (Completed) Start: 06/13/25 Expected End: 06/27/25 Resolved: 06/21/25 Patient will tolerate recommended food and liquid consistencies without clinical signs and symptoms of aspirations (Completed) Start: 06/13/25 Expected End: 06/27/25 Resolved: 06/21/25 Therapy Time SMOKEHOUSE WORKER Individual Minutes Time In: 1314 Time Out: 1326 Minutes: 12 MARY KATE MataSMOKEHOUSE WORKER Pt took off NC to clean out nose, desated to 70's Placed on pap for 15 min and will return to 6 L NC Images from the original note were not included. PULMONOLOGY PROGRESS NOTE 06/21/2025 Hospital LOS: LOS: 3 days Chief Complaint: acute hypoxemic respiratory failure Subjective/Interval History: No acute events, patient remains on 6L by nasal canula and satting well. No acute concerns. Understands plan for attempted diuresis to dry out her lungs and improve her breathing status. A pertinent review of systems was performed and was otherwise non-contributory except as detailed in Subjective section above. Vitals: BP 137/84 (BP Location: Left arm, Patient Position: Sitting) Pulse 85 Temp 36.3 C (97.3 F) (Temporal) Resp 14 Ht 5' 5" (1.651 m) Wt 187 lb 13.3 oz (85.2 kg) SpO2 91% BMI 31.26 kg/m Tmax: Temp (24hrs), Av.4 C (97.6 F), Min:36.3 C (97.3 F), Max:36.7 C (98.1 F) Intake/Output Summary (Last 24 hours) at 06/21/2025 0846 Last data filed at 06/20/2025 1704 Gross per 24 hour Intake 550 ml Output 400 ml Net 150 ml Hemodynamics: Cuff: Systolic (24hrs), Av , Min:101 , Max:137 /Diastolic (24hrs), Av, Min:69, Max:84 Cuff MAP: MAP (mmHg) Av.3 Min: 59 Max: 113 P: Pulse Av.5 Min: 64 Max: 104 Observed RR: Resp Av Min: 14 Max: 31 Observed O2 sats: SpO2 Av.5 % Min: 87 % Max: 100 % Intake/Output Summary (Last 24 hours) at 06/21/2025 0846 Last data filed at 06/20/2025 1704 Gross per 24 hour Intake 550 ml Output 400 ml Net 150 ml Physical Exam: Physical Exam Vitals and nursing note reviewed. Constitutional: General: She is not in acute distress. Appearance: She is ill-appearing. Cardiovascular: Rate and Rhythm: Normal rate. Pulmonary: Comments: Increased/labored work of breathing Musculoskeletal: Right lower leg: No edema. Left lower leg: No edema. Skin: General: Skin is warm and dry. Neurological: Mental Status: She is alert. Mental status is at baseline. Comments: Baseline neurological deficits present Data (select labs within last 24 hours): BMP: Recent Labs 06/19/25 02006/20/2531406/21/25 0125 NA 136 137 139 K 4.2 4.3 4.6 CL 107 111* 110* CO2 22* 19* 23 BUN 33* 33* 28* CREATININE 1.16* 1.15* 1.03 CALCIUM 7.9* 7.4* 8.3* LFTs: Recent Labs 06/19/25 020 AST 22 ALT 6 PROT 5.6* ALBUMIN 1.6* BILITOT 0.8 ALKPHOS 65 Glucose: Recent Labs 06/19/2520006/20/255 06/21/25 0125 GLUCOSE 86 77* 83 Procal: No results for input(s): "PROCAL" in the last 72 hours. CBC: Recent Labs 06/19/25 02006/19/25 0912 06/20/2531406/21/25 0125 WBC 9.7 -- 9.1 8.8 HGB 6.7* 9.0* 7.7* 8.4* HCT 23.7* 31.5* 25.8* 29.1* PLT 353 -- 339 460* MCV 82.3 -- 80.6 83.1 RDW 24.5* -- 22.5* 22.7* ABGs: No results for input(s): "PHART", "CMX4PRQ", "PO2ART", "PLP3SUY", "SO2ART", "M6ETZXRX" in the last 72 hours. Lactic Acid: No results for input(s): "LACTATE" in the last 72 hours. INR: No results for input(s): "INR" in the last 72 hours. Cardiac Injury Profile: No results for input(s): "CKTOTAL", "CKMB", "TROPONINI" in the last 72 hours. Labs in last 3 months: Lab Results Component Value Date TSH 2.80 06/12/2025 INR 1.0 06/12/2025 Microbiology: Urine Cx: No results found for: URINECX Blood Cx: Lab Results Component Value Date BLOODCX No growth at 72 hours 06/17/2025 Sputum Cx: Lab Results Component Value Date RESPCULT Rare respiratory amita present. 06/18/2025 Gram Stain: Lab Results Component Value Date LABGRAM Few Epithelial cells per low power field (A) 06/18/2025 LABGRAM (A) 06/18/2025 Moderate Polymorphonuclear leukocytes per low power field LABGRAM Rare Gram positive cocci (A) 06/18/2025 PNA PCR: Lab Results Component Value Date HUMANMETAPNE Not Detected 06/18/2025 COVID19: No results found for: COVID19 Legionella Ag: Lab Results Component Value Date LEGIONELLAPN Not Detected 06/18/2025 Strep Ag: No results for input(s): "STREPPNEUMO" in the last 72 hours. Imaging: CXR portable: Results for orders placed during the hospital encounter of 06/11/25 XR chest 1 view Narrative Patient Name: NANCY DELACRUZ : 1965 Exam Date/Time: 06/20/2025 08:00 Procedure: XR CHEST 1 VIEW Ordering Provider: FLEMING HARSHA Reason For Exam: hypoxia, infection vs TRALI HISTORY: Hypoxia Frontal view the chest at 0819 hours shows hypoinflation lungs with bilateral pulmonary infiltrates and/or edema very minimally decreasing since last exam. Moderate gastric distention, osteopenia, scoliosis. Report Dictated on Electronically Signed By: Mike Mcgrath MD Electronically Signed Date/Time: 06/20/2025 9:10 AM EDT CXR (2V): No results found for this or any previous visit. CT Chest: No results found for this or any previous visit. CTA Chest: Results for orders placed during the hospital encounter of 06/11/25 CT chest angiogram w and/or wo IV contrast Narrative Patient Name: NANCY DELACRUZ : 1965 Exam Date/Time: 06/17/2025 14:39 Procedure: CT CHEST ANGIOGRAM W AND/OR WO IV CONTRAST Ordering Provider: FLEMING HARSHA Reason For Exam: Pulmonary embolism (PE) suspected, unknown D-dimer EXAM: CT Angiography Chest With Intravenous Contrast CLINICAL INDICATION: Pulmonary embolism (PE) suspected, unknown D-dimer TECHNIQUE: Axial computed tomographic angiography images of the chest with intravenous contrast. This CT exam was performed using one or more of the following dose reduction techniques: automated exposure control, adjustment of the mA and/or kV according to patient size, and/or use of iterative reconstruction technique. MIP reconstructed images were created and reviewed. COMPARISON: None. FINDINGS: PULMONARY ARTERIES: Unremarkable. No pulmonary embolism. AORTA: Thoracic aortic arch is elongated and normal in caliber. No thoracic aortic aneurysm. LUNGS AND PLEURAL SPACES: Bilateral patchy consolidation within bilateral upper, middle lingular lobes. Mild left lower lobe patchy infiltrates. Small right pleural effusion. No pneumothorax. HEART: Scant coronary artery atherosclerotic calcifications. No cardiomegaly. No significant pericardial effusion. No evidence of RV dysfunction. BONES/JOINTS: No acute fracture. No dislocation. SOFT TISSUES: Unremarkable. LYMPH NODES: Unremarkable. No enlarged lymph nodes. Impression No acute pulmonary embolism. Bilateral patchy areas of consolidation within upper, right middle and lingular lobes. Small right pleural effusion. Follow-up chest radiograph until bilateral infiltrates have resolved. Report Dictated on Electronically Signed By: Juvenal Rosas DO Electronically Signed Date/Time: 06/17/2025 4:26 PM EDT Office Spirometry Results: Other Studies: Reviewed and as per electronic record. CXR/CT images personally reviewed by me when available; salient findings summarized in A/P. Current Medications: Current Medications[1] Allergies: Allergies[2] Assessment and Plan/Recommendations: Acute hypoxemic respiratory failure requiring intubation Bilateral pulmonary infiltrates Concern for TRALI vs acute infection vs previous infection Hypovolemic shock 2/2 vaginal bleed Afib w/RVR, unclear chronicity Acute blood loss anemia Endometrial carcinoma Patient transferred out of ICU Infectious workup thus far remains negative, monitor off abx CXR appears stable with signs of pulmonary edema Will trial lasix 40mg IV x1 and monitor Is and Os, follow Cr Serial examinations to evaluate for improvement NIV at night with supplemental O2 during the day rest of care per primary Advance Directive: Full Code Discharge planning: per primary Case discussed with nurse and Dr. Tobar Questions and concerns addressed. [1] Current Facility-Administered Medications: acetaminophen (Tylenol) tablet 650 mg, 650 mg, Oral, q6h PRN, 650 mg at 06/18/252153 OR acetaminophen (Tylenol) suppository 650 mg, 650 mg, Rectal, q6h PRN, Catherine Neopaney, DO atorvastatin (Lipitor) tablet 20 mg, 20 mg, Oral, Nightly, Catherine Neopaney, DO, 20 mg at 06/20/252027 [Held by provider] digoxin (Lanoxin) tablet 125 mcg, 125 mcg, Oral, Daily, Catherine Neopaney, DO, 125 mcg at 06/19/25947 melatonin tablet 3 mg, 3 mg, Oral, Nightly, Catherine Neopaney, DO, 3 mg at 06/20/252027 metoprolol tartrate (Lopressor) injection 5 mg, 5 mg, IntraVENous, q6h PRN, Catherine Neopaney, DO, 5 mg at 06/18/25 1118 metoprolol tartrate (Lopressor) tablet 25 mg, 25 mg, Oral, q8h, Catherine Neopaney, DO, 25 mg at 06/21/25 0118 mupirocin (Bactroban) 2 % ointment 1 Application, 1 Application, Nasal, BID, Catherine Neopaney, DO, 1 Application at 06/20/25 0833 ondansetron ODT (Zofran-ODT) disintegrating tablet 4 mg, 4 mg, Oral, q8h PRN OR ondansetron (Zofran) injection 4 mg, 4 mg, IntraVENous, q6h PRN, Catherine Neopaney, DO pantoprazole (ProtoNix) EC tablet 40 mg, 40 mg, Oral, Nightly, 40 mg at 06/20/252027 OR [DISCONTINUED] pantoprazole (ProtoNix) 40 mg in sodium chloride (PF) 0.9 % 10 mL injection, 40 mg, IntraVENous, Nightly, Sy Bloom MD polyethylene glycol (PEG) 3350 (Miralax) packet 17 g, 17 g, Oral, Daily PRN, Catherine Neopaney, DO, 17 g at 06/15/25 1039 sodium chloride 0.9 % infusion, 5-250 mL/hr, IntraVENous, PRN, Catherine Neopaney, DO sodium chloride 0.9 % infusion, 5-250 mL/hr, IntraVENous, PRN, Catherine Neopaney, DO sodium chloride 0.9 % infusion, 250 mL/hr, IntraVENous, PRN, Catherine Neopaney, DO sodium chloride 0.9% (NS) flush 5-40 mL, 5-40 mL, IntraVENous, q12h, Catherine Neopaney, DO, 10 mL at 06/21/25 0119 sodium chloride 0.9% (NS) flush 5-40 mL, 5-40 mL, IntraVENous, q12h, Catherine Neopaney, DO, 10 mL at 06/21/25 0118 stomahesive in petrolatum (ET Mix), , Topical, q8h, Catherine Neopaney, DO, Given at 06/21/25 0644 stomahesive in petrolatum (ET Mix), , Topical, PRN, Catherine Neopaney, DO [2] Not on File Cosigned by Cyrus Tobar MD at 06/21/2025 4:29 PM EDT Associated attestation - Cyrus Tobar MD - 06/21/2025 4:29 PM EDT I have personally performed a [id number] diagnostic evaluation on this patient on date of service 06/21/25. History, labs, imaging studies, and electronic medical record have been reviewed by me. This note documented by the [x]plumbing warehouse helper []EVE reflects my history, exam, and medical decision making. I have reviewed and agree with the care plan. Changes were made in the orders as necessary. ROS documentation was reviewed and negative unless otherwise stated in HPI. Additional pertinent interval history, ROS, and physical exam findings: Remains on 6L O2 Patient presented initially to [facility] with anemia, vaginal bleeding. Received transfusion. Had respiratory failure/hypoxia. Echo showed elevated RVSP at 49, possible apical cardiomyopathy. Concern for TRALI. Also had afib with RVR. Watch And Clock Maker And Repairer Onc planning D&C and IUD to control vaginal bleeding. Primary service, DISTANCE LEARNING PROGRAM COORDINATOR, and ICU notes reviewed. Assessment and Plan: Acute hypoxic respiratory failure- due to mixed cardiogenic and non-cardiogenic pulmonary edema. Creatinine has improved. Should get additional diuresis as renal function tolerates. Giving lasix today. Possible stress induced cardiomyopathy. Diuresis as above. Endometrial cancer and severe vaginal bleeding with anemia. See above. Afib with RVR improved. Potentially prior pneumonia. Nutrition Assessment Type and Reason for Visit: Reassess Nutrition Recommendations/Plan: Recommend upgrade diet to Regular/Thin per SMOKEHOUSE WORKER recommendations today. Per MNT: discontinue chocolate Ensure BID and provide instead 1 [place] Glucerna (8oz, 220kcal, 10gm protein). Continue to record po intake in I/O flowsheet to monitor. RD will follow weekly. Malnutrition Assessment: Malnutrition Status: At risk for malnutrition (Comment) Context: Acute Illness Findings of the 6 clinical characteristics of malnutrition: Energy Intake: No significant decrease in energy intake Weight Loss: No significant weight loss Body Fat Loss: No significant body fat loss Muscle Mass Loss: No significant muscle mass loss Fluid Accumulation: Mild Extremities Rn Orthopedic Strength: Not Performed Nutrition Assessment: Pt transferred to ICU 06/17 with respiratory failure requiring NIV. NIV to NC 06/18 and diet resumed. Per DISTANCE LEARNING PROGRAM COORDINATOR ONC the patient's best option is to undergo dilation and curettage and levonorgestrel intrauterine device placement when medically stable. This should temporize any bleeding and treat the hyperplasia +/- low grade endometrial adenocarcinoma until patient is medically stable to undergo hysterectomy. Labs: BUN elevated 33, Cr elevated 1.15, Glucose low 77. Medications reviewed. SMOKEHOUSE WORKER had been recommending Easy to Chew/Thin, but today recommended upgrade to Regular/Thin. Current diet: Easy to Chew/Thin + chocolate Ensure Plus BID. Per nursing flowsheets, pt consumed 100% bfst and 0% Ensure this morning. 100% x 3 meals 06/19. Spoke with patient and patient's brother in room. Pt sitting up in chair eating lunch: grilled cheese & chao soup. Appetite is good. Brother asking if there is a [place] flavored supplement. Estimated Daily Nutrient Needs: Energy Requirements Based On: Kcal/kg Weight Used for Energy Requirements: Other (Comment) (estimated IBW) Weight for Energy Calculation (kg): 50 kg Total Energy Requirements (kcals/day): 3391-2721 (25-30 kcals/kg) Weight Used for Protein Requirements: Other (Comment) (estimated IBW) Weight in Kg Used for Protein Requirements: 50 kg Estimated Total Protein (g/day): 55-65 (1.1-1.3 g/kg) Estimated Daily Total Fluid (ml/day): Nutrition Related Findings: -I/O, non-pitting BLE edema, Jose 16, +BS, BM 06/20 Wound Type: (R elbow abrasion - resolved, R forearm tear - resolved) Current Nutrition Therapies: Adult diet Easy to Chew Current Oral Intake Average Meal Intake: 76-100% Average Supplements Intake: 0% Anthropometric Measures: Height: 165.1 cm (5' 5") Current Body Weight: 85.2 kg (187 lb 13.3 oz) Weight Source: Bed Scale [place] Body Weight (lbs) (Calculated): 125 lbs [place] Body Weight (Kg) (Calculated): 57 kg % [place] Body Weight (Calculated): 150.3 % BMI (kg/m2) (Calculated): 31.3 Weight Adjustment For: No Adjustment BMI Categories: Obese Class 1 (BMI 30.0-34.9) Nutrition Diagnosis: Swallowing difficulty related to acute injury/trauma (prior CVA resulting in Rt Hemiparesis) as evidenced by swallow study results Increased nutrient needs related to acute injury/trauma as evidenced by lab values (vaginal bleeding, concern for endometrial cancer - elevated CA 125: 87 -? tentative upcoming) Nutrition Interventions: Nutrition Education/Counseling: No recommendation at this time Coordination of Nutrition Care: Continue to monitor while inpatient Goals: Previous Goal Met: Progressing toward Goal(s) Goals: PO intake 75% or greater Nutrition Monitoring and Evaluation: Behavioral-Environmental Outcomes: None Identified Food/Nutrient Intake Outcomes: Food and Nutrient Intake, Supplement Intake Physical Signs/Symptoms Outcomes: Biochemical Data, Chewing or Swallowing, GI Status, Fluid Status or Edema, Hemodynamic Status, Nutrition Focused Physical Findings, Skin, Weight Discharge Planning: Too soon to determine Cami Chavarria RD Contact: [employer] or *[phone] ICU Transfer Checklist Transfer Med Reconciliation (resume home meds if able, convert to PO if able) Complete Antibiotics (name, indication, duration, convert to PO if able) None Steroid (indication, duration, convert to PO if able) None Anticipated [facility] [facility] [employer] Medications (ICU initiated) or Dose Changes and Indication No Permanently Discontinued Home Medications and Reason for medication contraindication No Fiore Catheter (please remove if able. Note: place DC order) No Central Line (please remove if able. Note: place DC order) No Transfer D[facility]ed [facility] If additional questions for ICU team within 24 hours of ICU transfer, page ICU residents for clarifications. Images from the original note were not included. Speech-Language Pathology SPEECH LANGUAGE PATHOLOGY [facility] Dysphagia Treatment Note Patient Name: Nancy Delacruz Evaluation Date: 06/20/2025 Date of : 1965 Admission Date: 06/11/2025 10:35 PM Age: 59 y.o. Room/Bed: T2223/T2223 A Subjective Patient alert, confused and cooperative. Seen upright in bedside chair. Answers some basic questions with clear vocal quality. Follows all basic commands. Visitors at bedside - brother. Spoke with WES Cason who cleared pt for treatment. Current Diet: Dietary Orders (From admission, onward) Start Ordered 06/18/25 1118 Adult diet Easy to Chew Diet effective now Comments: Easy to chew solids with thin liquids. Question: Diet type Answer: Easy to Chew 06/18/25 1117 06/14/25 1351 Supplement:Breakfast, PM Snack; Chocolate Ensure Plus High Protein Until discontinued Question Answer Comment Frequency Breakfast Frequency PM Snack Select supplement: Chocolate Ensure Plus High Protein 06/14/25 1350 Aspiration Precautions: - Upright positioning for all PO intake - Slow rate of intake - Small bites/sips - Supervision with PO - Food cut into small bites Oxygen: Oxygen Therapy: Supplemental oxygen O2 Delivery Method: High flow nasal cannula O2 Flow Rate (L/min): 6 L/min Pain: Pt denies any current pain. PPE Worn: gloves Objective & Assessment Dysphagia Treatment # of Activities: 1 Dysphagia Activity 1: Assess diet tolerance Patient's brother confirms that patient was not under any diet restriction previously, as long as her food was cut into small bites. He further confirms that when patient is sitting up straight, she is able to feed herself with her left arm. Patient is agreeable to trial of hard solids. Patient's mastication is prolonged, but functional. Patient has good bolus management and clear oral cavity post swallow. Patient is able to control her rate of intake to small sips via straw with timely swallow onset. There is no change in vocal quality or cough post swallow. Patient is appropriate for diet upgrade. Plan & Recommendations Plan: ST to follow to ensure diet tolerance. Continue acute SMOKEHOUSE WORKER therapy per initial plan of care and established goals. Recommend Regular solids and Thin liquids and meds as tolerated and the following precautions: - Upright positioning for all PO intake - Slow rate of intake - Small bites/sips - Supervision with PO - Food cut into small bites D/C Recommendations: to be determined Education Education Given: swallowing strategies, diet recommendations Given To: patient, brother, and RN Response: needs reinforcement Goals Patient Stated Goal: None stated. Encounter Problems Encounter Problems (Active) Swallowing Patient will tolerate the least restrictive diet consistency to allow for safe consumption of daily meals (Progressing) Start: 06/13/25 Expected End: 06/27/25 Patient will demonstrate safe swallowing Intervention/techniques (Progressing) Start: 06/13/25 Expected End: 06/27/25 Patient will tolerate recommended food and liquid consistencies without clinical signs and symptoms of aspirations (Progressing) Start: 06/13/25 Expected End: 06/27/25 Encounter Problems (Resolved) Swallowing Patient will participate in instrumental assessment of swallowing as appropriate (Completed) Start: 06/12/25 Expected End: 06/15/25 Resolved: 06/13/25 Therapy Time SMOKEHOUSE WORKER Individual Minutes Time In: 1120 Time Out: 1130 Minutes: 10 MARIA DOLORES Smith Images from the original note were not included. PHYSICAL THERAPY [facility] Treatment Note Name/MRN: Nancy Delacruz ([id number]) Date of : 1965 Age: 59 y.o. Room/Bed: T2-223/T2-223 A Discharge Recommendation: [facility]way Facility Equipment Needed: No (Pt owns transport chair) Assessment Pt was max assist for supine to sit bed mobility, pt reports feeling a little light headed with postural change. Pt max assist for stand pivot transfer. Pt was max assist for scooting in bed and in recliner. Pt is a fall risk and requires max assist for transfers and not safe to return home would recommend SNF at discharge Subjective Pt cleared for PT by RN. Pt lying in bed upon entry and is agreeable to PT. Pt's brother is present during session. Pt's brother states that she does better when she is counting during transfer because it calms her down. Brother notes that when pt is not calm she does not assist with transfer at all. Pain: Pt denies any current pain. Medical Precautions: No active isolations Proper PPE donned/doffed in accordance with facility standards. Fall Risk: [place] Fall Risk Score: 60 (High Risk) Precautions/Restrictions: Lines/Drains/Airways: tele, O2 6 L/min. Overall Cognitive Status: Exceptions - Arousal/alertness: appropriate responses to stimuli - Following commands: follows multi-step commands consistently and follows multi-step commands with increased time Overall Orientation Status: Oriented to Place, Oriented to Person, and Disoriented to Time Family/Caregiver Present: sibling(s) Objective Bed Mobility Supine to sit: Max Assist Scooting: Max Assist Transfers/Mobility Sit to stand: Max Assist Stand to sit: Max Assist Stand pivot: Max Assist Pt requires assistance with RLE foot placement prior to initiating transfer. Pt cued to count upwards to help calm pt down during transfer. Device(s) used: Used therapist for support Balance During Session: Posture: fair Sitting - Static: SBA, Min Assist Sitting - Dynamic: Min Assist Standing - Static: Max Assist Pt sat at EOB with SBA to min assist for 4 mins. Pt has forward head posture with moderate thoracic kyphosis while sitting at EOB. Posture improve with verbal cues to bring head up. Plan Continue acute PT per plan of care. Safety/Education Safety Safety Devices in place: call light within reach, left in chair, chair alarm in place, gait belt, nurse notified, and talia pad in place Restraints: No Education Education Given To: patient Education Provided: PT Role and PT Goals Education Method: Verbal Barriers to Learning: Cognition Education Outcome: Verbalized Understanding Outcome Measures AM-PAC AM-PAC Inpatient Mobility Raw Score (No Stairs) : 10 JH-HLM JH-HLM Scale: Transferred to chair/commode Goals Patient Stated Goal: Pt would like to return home. Encounter Problems Encounter Problems (Active) Balance Patient will maintain dynamic sitting balance for 5 minutes with SBA in order to demonstrate improved postural control and prepare for out of bed mobility. (Progressing) Start: 06/19/25 Expected End: 07/10/25 Mobility Patient will propel the wheelchair for 20 ft and min assist in order to improve safety and independence with functional mobility. (Not Addressed) Start: 06/19/25 Expected End: 07/10/25 Transfers Patient will perform bed mobility with SBA in order to improve independence and prepare for out of bed mobility. (Progressing) Start: 06/19/25 Expected End: 07/10/25 Patient will complete functional transfer with least restrictive device with min assist in order to prepare for ambulation. (Progressing) Start: 06/19/25 Expected End: 07/10/25 Therapy Time Individual Co-treatment Time In 1010 Time Out 1030 Minutes 20 Timed Code Treatment Minutes: 20 Minutes 1x functional activity Rodrigo Coulter SPT Cosigned by Frederick Light PT at 06/20/2025 11:26 AM EDT ICU Progress Note Name: Nancy Delacruz : 1965(59 y.o.) Date: 06/20/25 Team: MICU Attending: Dr. Patt Velazquez Subjective: Hospital Summary: Patient is a 59 yo F Hx of developmental delay, A-fib, HTN, HLD, CVA w/ residual right-sided deficits who presented from [facility] where she presented for hemorrhagic shock 2/2 vaginal bleeding and required 4 units of PRBC. Found to have endometrial carcinoma, confirmed with biopsy. Transferred to [facility] for further care with plan for hysterectomy, bilateral salpingo-oophorectomy, sentinel lymphadenectomy for 06/18. On 06/17 patient developed worsening dyspnea and Afib w/ RVR and was transferred to the ICU for management of acute hypoxic respiratory failure likely 2/2 TRALI and needed NIV, now weaned to Nasal cannula w/ nocturnal pap. Obgyn following. Interval Events: No acute events overnight. Patient was seen and examined at the bedside, resting comfortably on bed, NAD, on 3L NC, NAD. Scheduled Meds:Scheduled Meds[1] Continuous Infusions:Continuous Meds[2] Objective: Last Vitals: BP MAP 104/73 (06/20/25 0600) 84 (06/20/25599) Arterial BP MAP Temp 36.4 C (97.5 F) (06/20/25 0400) Pulse 67 (06/20/25599) Resp 21 (06/20/25 06) SpO2 100 % (06/20/25599) Weight 187 lb 13.3 oz (85.2 kg) (06/20/25599) BMI Body mass index is 31.26 kg/m . I/O: 06/19 0700 - 06/20 0659 In: 746 [I.V.:382] Out: 1100 [Urine:1100] Ventilator: Resp Rate (Set): 12 FiO2 (%): 50 % Inspiratory Time (sec): 1 sec Oxygen Delivery: O2 Flow Rate (L/min): 6 L/min Invasive Lines / Tubes / Drains: Peripheral IV 06/19/25 Anterior;Left Forearm (Active) Number of days: 1 Mcfp Peripheral IV 06/17/25 Right Expires 07/17/2025 (Active) Number of days: 2 External Urinary Catheter (Active) Number of days: 8 Central Line Indication: NA - patient does not have a central line Fiore Indications: NA - patient does not have a Fiore catheter Restraints: NA - patient is not restrained. Wounds: Wound/Incision 06/12/25 Skin Tear Forearm Right (Active) Date First Assessed/Time First Assessed: 06/12/25 0845 Primary Wound Type: Skin Tear Location: Forearm Wound Location Orientation: Right Constitutional: General Appearance []WDWN [x]Obese []Cachectic []Thin []Ill Eyes: Inspection of Pupils/Irises Pupils round and react: [x]Yes []No Sclera: []Icteric [x]Non-Icteric Inspection of Conjunctiva/Lids Conjunctiva: []Injected [x]Non-Injected Lids: [x]Intact []Lesion Present ENT/Mouth: External Inspection of ears/nose [x] Normal [] Scar/Lesion/Mass Inspection of teeth/lips/gums Dentition: [][place] Teeth []Dentures Lips/Gums: [x]Intact []Lesion Present Mucosa: [x][place] []Moist []Dry Neck: External Appearance Overall Appearance: [x]Normal []Lesion/Mass/Crepitus Present Trachea midline: []Yes []No Thyroid []Normal []Enlarged []Tender []Mass []Absent Respiratory: Respiratory effort []Labored [x]Non-Labored [] Mechanically-Ventilated Auscultation [x]Clear []Crackles []Wheezes [][place] Cardiovascular: Auscultation Rate: [x]Regular []Irregular []Tachycardia []Bradycardia Rhythm: []Regular [x]Irregular Murmur: []Present []Absent Extremities Peripheral Edema: []Present [x]Absent Varicosities: []Present []Absent Gastrointestinal: Abdomen Palpation: [x]Soft []Firm []Tender [x]Non-Tender []Distended []Non-distended Mass: []Present []Absent Bowel Sounds: [x]Present []Absent Hernia: []Present []Absent Liver/Spleen: []Hepatosplenomegaly []Organomegaly Absent Musculoskeletal: Inspection of Digits and Nails Cyanosis: []Present [x]Absent Clubbing: []Present [x]Absent Ischemia: []Present []Absent Infection: []Present []Absent Extremities PAEZ Equally: Except ([]RUE []RLE []LUE []LLE) Strength/Tone: Intact and Normal ([]RUE []RLE []LUE []LLE) Skin: Inspection [x]Normal []Rash []Lesion []Ulcer Palpation [x]Warm []Cool [x]Dry []Clammy []Nodules []Induration []Skin-tightening Cap-Refill: [] <3 sec [] >3 seconds (delayed) Neurologic: GCS EYE: 4 - Opens spontaneously GCS MOTOR: 6 - Obeys commands for movement GCS VERBAL: 5 - Oriented to person, place, time Total GCS: 15 [] Sensation grossly intact Psych: Mental Status Alert: []Yes [] No Oriented: []x0 []X1 []X2 []x3 Mood/Affect [x]Normal []Flat []Agitated []Depressed []Anxious []Calm []Sedated []NAD [facility] Labs within last 24 hours- BMP: Recent Labs 06/18/2552806/19/25 02006/20/25314 NA 137 136 137 K 4.2 4.2 4.3 CL 107 107 111* CO2 23 22* 19* BUN 32* 33* 33* CREATININE 1.06 1.16* 1.15* CALCIUM 8.1* 7.9* 7.4* LFTs: Recent Labs 06/17/25182406/18/25 0506/19/25 020 AST 22 18 22 ALT 9 9 6 PROT 6.4 6.0* 5.6* ALBUMIN 1.9* 1.7* 1.6* BILITOT 0.6 0.7 0.8 ALKPHOS 82 73 65 Glucose: Recent Labs 06/17/25182406/18/2552806/19/25 02006/20/25 0315 GLUCOSE 97 90 86 77* Procal: Recent Labs 06/17/251824 PROCAL 0.25* CBC: Recent Labs 06/18/2552806/19/25 02006/19/25 0912 06/20/25 0315 WBC 10.0 9.7 -- 9.1 HGB 7.2* 6.7* 9.0* 7.7* HCT 25.2* 23.7* 31.5* 25.8* PLT 370 353 -- 339 MCV 81.0 82.3 -- 80.6 RDW 25.1* 24.5* -- 22.5* ABGs: Recent Labs 06/17/25 1740 PHART 7.512* IHI5GVC 31.5* PO2ART 73.7* EEL4WYS 24.7 [id number] Non-Invasive Ventilator Lactic Acid: Recent Labs 06/17/25 1825 LACTATE 0.7 INR: No results for input(s): "INR" in the last 72 hours. Cardiac Injury Profile: No results for input(s): "CKTOTAL", "CKMB", "TROPONINI" in the last 72 hours. Labs in Last 3 months: Lab Results Component Value Date TSH 2.80 06/12/2025 INR 1.0 06/12/2025 Microbiology- Urine Cx: No results found for: URINECX Blood Cx: Lab Results Component Value Date BLOODCX No growth at 48 hours 06/17/2025 Sputum Cx: Lab Results Component Value Date RESPCULT Culture in progress 06/18/2025 Gram Stain: Lab Results Component Value Date LABGRAM Few Epithelial cells per low power field (A) 06/18/2025 LABGRAM (A) 06/18/2025 Moderate Polymorphonuclear leukocytes per low power field LABGRAM Rare Gram positive cocci (A) 06/18/2025 PNA PCR: Lab Results Component Value Date HUMANMETAPNE Not Detected 06/18/2025 COVID19: No results found for: COVID19 Legionella Ag: Lab Results Component Value Date LEGIONELLAPN Not Detected 06/18/2025 Strep Ag: No results for input(s): "STREPPNEUMO" in the last 72 hours. Imaging- improved from prior studies Assessment and Plan: Principal Problem: Vaginal bleeding Active Problems: Acute hypoxemic respiratory failure (HCC) Atrial fibrillation (HCC) Acute blood loss anemia Assessment/Plan: Neuro: Developmental Delay Hx of CVA w/ residual R sided deficits Cardio: Afib w/ RVR Acute on Chronic HFpEF(EF 60%) 06/18/25 - TTE (06/18/25) EF 60%, indeterminate diastolic function due to Afib, severe left atrial dilation, moderate right atrial dilation - Decrease Metoprolol 25 mg q8h for rate control, continue Digoxin 125 mcg PO daily - Per cardiology, will consider resuming DOAC and consider cardioversion once pt medically stable and healed from surgery HTN/HLD - Holding home hydralazine, carvedilol, amlodipine in setting of hypotension - Continue statin Pulm: Acute Hypoxemic Respiratory Failure Bilateral pulmonary infiltrates - New infection vs sequelae of previous PNA at outside hospital vs sequelae of TRALI - No current sign of infection. Hypoxemia most likely 2/2 TRALI. Significant improvement both clinically and on most recent CXR. - Infectious workup including PNA PCR, Respiratory PCR, MRSA nares negative - Blood culture NG at 48 hours - Respiratory culture GPC, potentially normal respiratory amita - Remains afebrile, previous leukocytosis resolved - Abx discontinued yesterday, low suspicion for infectious processes - Continue nocturnal NIV, supplemental O2 via NC during the day. - Patient is stable to be transferred to the [facility]. GI/FEN: - Per chart review endoscopy performed at outside hospital 05/23 demonstrated "non-bleeding ulcers" - Adult diet, easy to chew : RAMEZ-improved Endometrioid adenocarcinoma - Previous plan for laparoscopic hysterectomy, bilateral salpingo-oophorectomy, bilateral sentinel lymphadenectomy on 06/18, now delayed - Per analytical chemist/onc current plan for D&C with levonorgestrel IUD - Watch And Clock Maker And Repairer/Onc following Endo: Stable Heme/Onc: Acute blood loss anemia - Received 1 unit pRBC 06/19 - Continue to monitor with repeat H and H today. Due to concern for TRALI, reconsider immediate transfusion if Hgb<7. Assess clinical status to determine if transfusion necessary. MSK: R. Forearm skin tear - Wound care has signed off - PT/OT as able Lines: R general machinist PIV, L PIV GI Prophylaxis: Pantoprazole PO DVT Prophylaxis: SCDs Disposition: Transfer to [facility] Patient seen and examined independently. Interval history reviewed. Agree with MS4. Subjective Hx, ROS, PE, and A/P with changes made throughout the note to reflect my thoughts and findings. Electronically signed by Catherine Walker DO at 4:48 PM [1] atorvastatin, 20 mg, Oral, Nightly [Held by provider] digoxin, 125 mcg, Oral, Daily melatonin, 3 mg, Oral, Nightly [Held by provider] metoprolol tartrate, 25 mg, Oral, BID mupirocin, 1 Application, Nasal, BID pantoprazole, 40 mg, Oral, Nightly sodium chloride 0.9%, 5-40 mL, IntraVENous, q12h sodium chloride 0.9%, 5-40 mL, IntraVENous, q12h stomahesive in petrolatum, , Topical, q8h [2] Cosigned by Patt Velazquez DO at 06/20/2025 5:38 PM EDT Associated attestation - Patt Velazquez DO - 06/20/2025 5:38 PM EDT I have personally performed a [id number] diagnostic evaluation on this patient on date of service 06/20/2025. History, labs, imaging studies, and electronic medical record have been reviewed by me. This note documented by the [x]plumbing warehouse helper []EVE reflects my history, exam, and medical decision making. I have reviewed and agree with the care plan. Changes were made in the orders as necessary. ROS documentation was reviewed and negative unless otherwise stated in HPI. Additional pertinent interval history, ROS, and physical exam findings: Ms Delacruz seen and evaluated at bedside. No acute events overnight. Remains on nasal cannula, but did wear PAP overnight. No acute complaints Assessment: Acute hypoxic respiratory failure Atrial fibrillation with RVR Diffuse bilateral pulmonary infiltrates, concern for TRALI RAMEZ Endometrial adenocarcinoma Acute blood loss anemia Developmental delay Hx CVA with residual right sided deficits Plan: -Supplemental O2 and PAP support as needed -Cardiology consulted, planning for rate control, anticoagulation once recovered from surgery -Trend hemoglobin, transfuse to maintain >7 -Hold parameters for metoprolol -Watch And Clock Maker And Repairer/onc following, plan for D&C with levonorgestrel intrauterine device at this time -OK for transfer out of ICU, will place orders Total critical care time for this patient with life-threatening unstable organ failure, including direct patient contact, management of life support systems, review of data including imaging and labs, and discussions with other team members and physicians at least 40 minutes so far today, excluding procedures. Some elements copied from my notes, which have been updated where appropriate. All reflect current medical decision making from 06/20/25. Physical Exam listed was completed in entirely on 06/20/25 and is unchanged except where noted. Images from the original note were not included. PHYSICAL THERAPY [facility] Re-Evaluation Name/MRN: Nancy Delacruz ([id number]) Evaluation Date: 06/19/2025 Date of : 1965 Admission Date: 06/11/2025 10:35 PM Age: 59 y.o. Room/Bed: T2-223/T2-223 A Discharge Recommendation: [facility] Facility Equipment Needed: No (Pt owns transport chair) Assessment IMPRESSION: Pt presents with vaginal bleeding, acute anemia, acute respiratory failure with findings of endometrial carcinoma. At baseline, pt performs transfers with family's assistance, and uses a transport chair for mobility. Pt was able to transition from supine to sitting EOB with mod assist and had minor complaints of dizziness that resolved within 1 minute. Pt was then able to stand twice with max assist before returning to supine and performing several exercises. Pt demonstrated numerous balance impairments during visit and is currently unsafe to return home. Recommend discharge to SNF to address her health and therapeutic needs. Admitting Diagnosis: Vaginal bleeding Prognosis: good Performance Deficits /Impairments: Decreased Functional Mobility, Decreased ADL status, Decreased Strength, Decreased Safety Awareness, Decreased Endurance, Decreased Balance, Decreased ROM, Decreased High Level IADLs, Decreased Cognition, Decreased Fine Motor Control, and Decreased Posture Decision Making: Medium Complexity Subjective Cleared for PT by RN. Pt found in bed and agreeable to PT. Pt's brother at bedside. Bother reports pt was supposed to have surgery (hysterectomy) yesterday, but was held due to cardio-pulmonary concerns. Pain: Pt denies any current pain. Past Medical History: Medical History[1] Past Surgical History: Surgical History[2] Admission Diagnosis: Patient Active Problem List Diagnosis Date Noted Acute hypoxemic respiratory failure (HCC) 06/17/2025 Atrial fibrillation (HCC) 06/17/2025 Acute blood loss anemia 06/17/2025 Vaginal bleeding 06/11/2025 Medical Precautions: No active isolations Proper PPE donned/doffed in accordance with facility standards. Fall Risk: Ledesma Fall Risk Score: 70 (High Risk) Precautions/Restrictions: Lines/Drains/Airways: tele, long-term PIV, high flow NC 6 L/min - aspiration precautions Family/Caregiver Present: sibling(s) Overall Cognitive Status: Exceptions - Arousal/alertness: appropriate responses to stimuli and delayed responses to stimuli - Following commands: follows one step commands consistently and follows one step commands with increased time - Safety judgement: decreased awareness of need for safety - Insights: fully aware of deficits - Initiation: requires cues for some - Sequencing: requires cues for some Overall Orientation Status: Oriented to Place, Oriented to Situation, and Oriented to Person Vision: Not Assessed Hearing: normal Social/Functional History Prior Level of Function Prior Level of ADL Function: Required Assist Prior Level of Mobility: Required Assist; Device: transport chair and family Prior Level of Transfers: Required Assist Objective Lower Extremity Assessment AROM: Impaired: Pt with history of CVA with R sided deficits. R ankle resting with increased PF and inversion. R wrist rests with increase flexion and unable to extend to neutral. Strength: Exceptions: bilateral knee extension at least 3/5, bilateral hip flexion 3-/5, L ankle DF at least 3/5, R ankle DF 3-/5 Sensation: WFL Balance: Balance During Session: Posture: fair Sitting - Static: SBA Sitting - Dynamic: Contact Guard Standing - Static: Max Assist Standing - Dynamic: Max Assist Bed Mobility: Supine to sit: Mod Assist Sit to supine: Mod Assist Rolling to right: SBA Rolling to left: SBA Scooting: Min Assist Transfers Sit to stand: Max Assist Stand to sit: Max Assist Performed 2 sit to stands from EOB with no assistive device to block R knee from collapsing. Pt with retro lean when standing. Cues to shift weight anteriorly over DICK to improve balance and posture with little success. Ambulation Not assessed this session. Pt uses transport chair at baseline for ambulation and did not take any steps while standing. Exercises Pt stood twice during visit with ma assist and pre-positioning of R foot to prepare for weightbearing. Pt was repeatedly cued verbally to stand taller and shift weight forward to improve balance and posture with minimal success. Pt also worked on sitting EOB and maintaining safe balance while using her hands for stability. Pt was cued to sit taller to allow for improved breathing mechanics while seated. Pt then performed the following exercises: - x10 LAQ - x10 seated marching - x10 quad sets - x10 ankle pumps - x10 hip abduction - x10 hip adduction with pillow Outcome Measures AM-PAC How much HELP from another person do you currently need Turning from your back to your side while in a flat bed without using bedrails?: A Little Moving from lying on your back to sitting on the side of a flat bed without using bedrails?: A Lot Moving to and from a bed to a chair (including a wheelchair)?: A Lot Standing up from a chair using your arms (wheelchair or bedside chair)?: A Lot Walking in a hospital room?: Total Stair climbing assessed?: No AM-PAC Inpatient Mobility Raw Score (No Stairs) : 10 JH-HLM JH-HLM Scale: Sat at edge of bed Plan Pt would benefit from skilled acute PT services to address Strengthening, ROM, Gait Training, Balance Training, Self-Care/ADL Training, Functional Mobility Training, and Endurance Training. Frequency: 2x/weekduring current hospital admission or until additional recommendations are made Barriers: Impaired balance, Lower extremity weakness, Upper extremity weakness, Decreased endurance, and Cognitive deficit (pt has noted developmental delay) Safety/Education Safety Safety Devices in place: All fall risk precautions in place, call light within reach, left in bed, gait belt, nurse notified, and no alarms engaged upon entry Restraints: N/A Education Education Given To: patient and brother Education Provided: Benefits of Increasing Activity and Breathing Techniques Education Method: Verbal Barriers to Learning: None Education Outcome: Verbalized Understanding and Demonstrated Understanding Goals Patient Stated Goal: Pt would like to return home. Encounter Problems Encounter Problems (Active) Balance Patient will maintain dynamic sitting balance for 5 minutes with SBA in order to demonstrate improved postural control and prepare for out of bed mobility. Start: 06/19/25 Expected End: 07/10/25 Mobility Patient will propel the wheelchair for 20 ft and min assist in order to improve safety and independence with functional mobility. Start: 06/19/25 Expected End: 07/10/25 Transfers Patient will perform bed mobility with SBA in order to improve independence and prepare for out of bed mobility. Start: 06/19/25 Expected End: 07/10/25 Patient will complete functional transfer with least restrictive device with min assist in order to prepare for ambulation. Start: 06/19/25 Expected End: 07/10/25 Therapy Time Individual Co-Treatment Co-Evaluation Time In 1350 Time Out 1419 Minutes 29 Timed Code Treatment Minutes: 8 Minutes (TP) JOSE Villareal Patient's Physical Therapy Plan of Care supervision is transferred to a [facility] Physical Therapist. Goals and/or treatment plan was established in collaboration with patient/family/other representatives. [1] No past medical history on file. [2] No past surgical history on file. Cosigned by Frederick Light PT at 06/19/2025 3:11 PM EDT Vancomycin therapy has been discontinued by Dr. Catherine Walker on 06/19/25. Thank you for the consult. Pharmacy signing off for vancomycin dosing. Khushi Lara [facility], Date: 06/19/25 Time: 10:55 AM [facility] [place]Electrophysiology Progress Note HPI / Interval History: Nancy Delacruz is a 59 y.o. female with PMH of developmental delay, A-fib, HTN/HLD, stroke with residual right-sided deficits. She is admitted for vaginal bleeding with plans for dilation and curettage and levonorgestrel intrauterine device placement when respiratory status improves. HF following for HFpEF and A fib. Overnight she was bradycardic in a fib after dig load and metoprolol. She feels well this morning. Hgb dropped again and she will be getting transfused. She remains on HFNC. Assessment/Plan HF NYHA Class [] I [] II [] III [] IV []Unable to assess [] N/A A fib with RVR -Likely exacerbated by her acute illness not only her blood loss anemia but her concern for PNA -S/p digoxin load and was started on metoprolol 25 mg q6h yesterday. Will plan to continue digoxin 125mcg every day given her good response. Additionally will decrease metoprolol to 25mg BID since her HR is now in the 60s. She remains in a fib -No OAC until bleeding issues resolved and healed postoperatively. HFpEF -TTE showing LV 60% at outside hospital, NT prob BNP is 11 202. Repeat TTE shows preserved EF with concern for apical HCM. -No diuresis recommended at this time she appears euvolemic. -CMRI in the outpatient setting Medications: Scheduled Meds[1] Infusion Medications: Continuous Meds[2] Physical Examination: Vitals: 06/19/25 0704 06/19/25 0731 06/19/25 0757 06/19/25 0810 BP: 96/51 BP Location: Patient Position: Pulse: (!) 40 (!) 40 54 69 Resp: 16 25 Temp: TempSrc: SpO2: 100% 98% 100% Weight: Height: Intake/Output Summary (Last 24 hours) at 06/19/2025 0859 Last data filed at 06/19/2025 0529 Gross per 24 hour Intake 1254 ml Output 850 ml Net 404 ml Patient Vitals for the past 168 hrs: Weight Weight Method 06/19/25 0544 188 lb 15 oz (85.7 kg) -- 06/18/25 1236 194 lb (88 kg) -- 06/18/25 0529 194 lb 10.7 oz (88.3 kg) -- 06/17/25 0106 171 lb 4.8 oz (77.7 kg) Bed scale 06/16/25 0030 169 lb 8 oz (76.9 kg) Bed scale 06/15/25 0333 174 lb 6.1 oz (79.1 kg) Bed scale 06/14/25 0246 172 lb 8 oz (78.2 kg) Bed scale 06/12/25 2000 165 lb (74.8 kg) Bed scale Physical Exam Constitutional: NAD, eating breakfast Psychiatric: Alert. Neck: No JVD Respiratory: Lungs are diminished Heart: irregular, bradycardic ; Nl S1 and S2, no murmur, norub, gallop Abdomen: NABS; soft, non-tender, non-distended Extremities: no LE edema Skin: Warm to touch and well perfused Laboratory Tests: TROPONIN I, CONVENTIONAL SENSITIVITY No results found for: "CKTOTAL", "CKMB", "CKMBINDEX", "TROPONINI" TROPONIN I, HIGH SENSITIVITY Troponin HS Serial Baseline Date Value Ref Range Status 06/17/2025 16 (H) <=14 ng/L Final Comment: In individuals presenting with symptoms > 2h, a baseline troponin <= 5 ng/L suggests acute cardiac injury is unlikely and further serial testing is generally not indicated. 2h Troponin HS (Serial 2nd Troponin) Date Value Ref Range Status 06/17/2025 16 (H) <=14 ng/L Final Comment: Rising or falling troponin delta below 2 ng/L as compared to baseline value suggests that acute cardiac injury is unlikely. No results found for: TROPDELTBASE No results found for: "TROPHS3" No results found for: TROPDELTSEC Recent Labs 06/17/25 0506 06/17/25 1825 06/18/25 0529 06/19/25 0201 NA 133* 134* 137 136 K 4.2 4.7 4.2 4.2 CL 102 104 107 107 CO2 23 23 23 22* BUN 32* 34* 32* 33* CREATININE 1.13* 1.06 1.06 1.16* Recent Labs 06/17/25 0506 06/17/25 1740 06/17/25 18206/18/25 0529 06/19/25 0201 WBC 13.3* -- 14.2* 10.0 9.7 HGB 8.4* 8.3 7.7* 7.2* 6.7* HCT 29.0* -- 26.5* 25.2* 23.7* MCV 80.6 -- 79.1 81.0 82.3 PLT 524* -- 408 370 353 Recent Labs 06/17/252020 BNP * No results for input(s): "TRIG", "HDL", "LDLCALC", "CHOL" in the last 72 hours. No results found for: LDLCHOLESTER Lab Results Component Value Date TSH 2.80 06/12/2025 No results found for: "EFBP", "PLVEF", "LVEFPHYS", "LVEF2D", EF 06/11/25 TRANSTHORACIC ECHOCARDIOGRAM (TTE) COMPLETE (CONTRAST/BUBBLE/3D PRN) 06/18/2025 3:17 PM (Final) Interpretation Summary Left Ventricle: Left ventricle size is normal. Increased wall thickness. Apical hypertrophy is noted suggestive of apical hypertrophic cardiomyopathy. Recommend Cardiac MR for better visualization and evaluation. Normal left ventricular systolic function. The EF by visual approximation is 60%. Normal wall motion. Indeterminate diastolic function due to atrial fibrillation. Right Ventricle: Right ventricle size is normal. Normal systolic function. Tricuspid Valve: Mild to moderate (1-2+) regurgitation. Mildly elevated RVSP. RVSP is 49 mmHg. Left Atrium: Left atrium is severely dilated. Interatrial Septum: No interatrial shunt visualized on color Doppler. Agitated saline study was negative with and without provocation. Right Atrium: Right atrium is moderately dilated. Pericardium: Trivial localized pericardial effusion present around the right atrium. Left pleural effusion. Technically difficult study. Signed by: Donna Giron MD on 06/18/2025 3:17 PM Other reports reviewed: Cardiac Tests: Telemetry findings reviewed: a fib rates 40s-60s overnight No results found for: "EFBP", "PLVEF", "LVEFPHYS", "LVEF2D", EF Susan Cerda DO Date Of Service 06/19/2025 [1] atorvastatin, 20 mg, Oral, Nightly digoxin, 125 mcg, Oral, Daily melatonin, 3 mg, Oral, Nightly metoprolol tartrate, 25 mg, Oral, BID mupirocin, 1 Application, Nasal, BID pantoprazole, 40 mg, Oral, Nightly Or pantoprazole (ProtoNix) 40 mg in sodium chloride (PF) 0.9 % 10 mL injection, 40 mg, IntraVENous, Nightly piperacillin-tazobactam, 4,500 mg, IntraVENous, q6h sodium chloride 0.9%, 5-40 mL, IntraVENous, q12h sodium chloride 0.9%, 5-40 mL, IntraVENous, q12h stomahesive in petrolatum, , Topical, q8h vancomycin, 1,000 mg, IntraVENous, q24h [2] Cosigned by Carlos Oliva MD at 06/19/2025 9:37 AM EDT Associated attestation - Carlos Oliva MD - 06/19/2025 9:37 AM EDT I, Dr. Carlos Oliva, saw and evaluated the patient on 06/19/2025. I personally obtained the zepeda and critical portions of the history and physical exam. I reviewed the chart, the fellow's documentation, and discussed the patient with the fellow. I agree with the fellow's medical decision making and have edited the note to reflect my clinical findings and my assessment and plan. In summary, Nancy Delacruz is a 59 yo F who needs hysterectomy to help with heavy bleeding. She has AF - unclear if this is paroxsymal, persistent, etc. Reported "HFpEF". Appears euvolemic on exam -- echo agrees. Also noted, very bulky apical myocardium. This can be evaluated further as an outpatient. - Do not recommend diuresis - Will stop Hydral/Amlodipine/Carvedilol for now - Primary team started Digoxin -- rates much better - Decrease Metoprolol 25 mg q8h for rate control , continue Digoxin 125 mcg PO daily - No anticoagulation until bleeding issues resolved, plan for rate control strategy. Once, bleeding issue resolved and well healed from surgery, can restart stroke ppx DOAC and consider cardioversion attempt Will follow up heart rates and as needed Carlos Oliva MD Department of Cardiovascular Disease, Division of Heart Failure [facility] [place] 9:32 AM 06/19/25 Images from the original note were not included. Speech-Language Pathology SPEECH LANGUAGE PATHOLOGY [facility] Dysphagia Treatment Note Patient Name: Nancy Delacruz Evaluation Date: 06/19/2025 Date of : 1965 Admission Date: 06/11/2025 10:35 PM Age: 59 y.o. Room/Bed: T2-223/T2-223 A Subjective Patient alert and cooperative. Seen upright in bed. Answers all basic questions with clear vocal quality. Follows all basic commands. No visitors at bedside. Spoke with WES Todd who cleared pt for treatment. Current Diet: Dietary Orders (From admission, onward) Start Ordered 06/18/25 1118 Adult diet Easy to Chew Diet effective now Comments: Easy to chew solids with thin liquids. Question: Diet type Answer: Easy to Chew 06/18/25 1117 06/14/25 1351 Supplement:Breakfast, PM Snack; Chocolate Ensure Plus High Protein Until discontinued Question Answer Comment Frequency Breakfast Frequency PM Snack Select supplement: Chocolate Ensure Plus High Protein 06/14/25 1350 Aspiration Precautions: - Upright positioning for all PO intake - Slow rate of intake - Small bites/sips - Supervision with PO Oxygen: Oxygen Therapy: Supplemental oxygen O2 Delivery Method: High flow nasal cannula O2 Flow Rate (L/min): 6 L/min Pain: Pt denies any current pain. PPE Worn: gloves Objective & Assessment Dysphagia Treatment # of Activities: 1 Dysphagia Activity 1: Assess diet tolerance Patient is consuming easy to chew breakfast tray. Patient's oral cavity is clear. Patient consumes small sips of thin liquids via straw with timely swallow onset, clinically good hyo-laryngeal elevation, and clear oral cavity post swallow. Patient further consumes easy to chew eggs from tray with functional mastication, excellent bolus management, and clear oral cavity post swallow. Patient is tolerating current diet with supervision - nursing informatics specialist assists at close of session. Plan & Recommendations Plan: ST to follow to ensure diet tolerance. Continue acute SMOKEHOUSE WORKER therapy per initial plan of care and established goals. Recommend Easy to chew solids and Thin liquids and meds whole in puree or as tolerated and the following precautions: - Upright positioning for all PO intake - Slow rate of intake - Small bites/sips - Supervision with PO D/C Recommendations: to be determined Education Education Given: swallowing strategies, diet recommendations Given To: patient and RN Response: needs reinforcement Goals Patient Stated Goal: None at this time. Encounter Problems Encounter Problems (Active) Swallowing Patient will tolerate the least restrictive diet consistency to allow for safe consumption of daily meals (Progressing) Start: 06/13/25 Expected End: 06/27/25 Patient will demonstrate safe swallowing Intervention/techniques (Progressing) Start: 06/13/25 Expected End: 06/27/25 Patient will tolerate recommended food and liquid consistencies without clinical signs and symptoms of aspirations (Progressing) Start: 06/13/25 Expected End: 06/27/25 Encounter Problems (Resolved) Swallowing Patient will participate in instrumental assessment of swallowing as appropriate (Completed) Start: 06/12/25 Expected End: 06/15/25 Resolved: 06/13/25 Therapy Time SMOKEHOUSE WORKER Individual Minutes Time In: 822 Time Out: 830 Minutes: 8 MARIA DOLORES Smith Pharmacy to Dose Vancomycin - Progress Note Lab Results Component Value Date CREATININE 1.16 (H) 06/19/2025 BUN 33 (H) 06/19/2025 WBC 9.7 06/19/2025 VANCOTROUGH 29.2 06/19/2025 Doses, serum creatinine, and vancomycin levels interfaced automatically to [employer] and data has been analyzed and interpreted. Infectious Diagnosis: HAP Est CrCl: 68 mL/min (Cockcroft-Gault) Assessment: Current regimen vancomycin 1500 mg every 24 hours (18 mg/kg) Predicted AUC = 759 mg/L*hr (goal 400-600 mg/L*hr) PAUC = >95% (probability that AUC is >400 mg/L*hr) Pconc = 36% (probability that Ctrough is above 20 mcg/mL (toxicity)) Plan: Is the current dose therapeutic? [x] No - Slight increase in creatinine, change current regimen to vancomycin 1000 mg every 24 hours (12 mg/kg) for predicted AUC 510 mg/L*hr, PAUC = 95% , and Pconc* = <5%. Obtain next level on 06/20. Trend serum creatinine. Trend AUC using Bayesian Modeling. Orders placed. DATE: 06/19/25 TIME: 7:32 AM Breanna Contreras RPh Clinical Pharmacist Available via Secure Chat ICU Progress Note Name: Nancy Delacruz : 1965(59 y.o.) Date: 06/19/25 Team: MICU Attending: Dr. Patt Velazquez Subjective: Hospital Summary: 59 yo F Hx of developmental delay, A-fib, HTN, HLD, CVA w/ residual right-sided deficits who presented from [facility] where she presented for hemorrhagic 2/2 vaginal bleeding. Hospital course complicated by pulmonary edema, pneumonia, hypoxemic, respiratory failure requiring intubation, and biopsy positive for endometrioid carcinoma. Transferred to [facility] for further care with plan for hysterectomy, bilateral salpingo-oophorectomy, sentinel lymphadenectomy for 06/18. On 06/17 patient developed worsening dyspnea and Afib w/ RVR. CTA chest negative for PE with bilateral patchy consolidations, small pleural effusions. Transferred to ICU 06/17 acute hypoxemic respiratory failure requiring NIV. Currently on NC. Interval Events: None Scheduled Meds:Scheduled Meds[1] Continuous Infusions:Continuous Meds[2] Objective: Last Vitals: BP MAP (!) 81/51 (06/19/25 0542) 63 (06/19/25 0500) Arterial BP MAP Temp 36.1 C (97 F) (06/19/25 0542) Pulse 55 (06/19/25 0542) Resp 19 (06/19/25 0542) SpO2 100 % (06/19/25 0400) Weight 188 lb 15 oz (85.7 kg) (06/19/25 0544) BMI Body mass index is 31.44 kg/m . Labs: BUN stable, Cr 1.16 from 1.06, GFR 53.7 from 59.9, hgb 6.7 from 7.2 getting 1 unit pRBCs, WBC stable I/O: 06/18 0700 - 06/19 0659 In: 1254 [I.V.:1254] Out: 850 [Urine:850] Ventilator: Resp Rate (Set): 10 FiO2 (%): 50 % Inspiratory Time (sec): 1 sec Oxygen Delivery: O2 Flow Rate (L/min): 6 L/min Invasive Lines / Tubes / Drains: Peripheral IV 06/19/25 Anterior;Left Forearm (Active) Number of days: 0 Conflict Resolution Professional Peripheral IV 06/17/25 Right Expires 07/17/2025 (Active) Number of days: 1 External Urinary Catheter (Active) Number of days: 7 Central Line Indication: NA - patient does not have a central line Fiore Indications: NA - patient does not have a Fiore catheter Restraints: NA - patient is not restrained. Wounds: Wound/Incision 06/11/25 Other (comment) Perineum (Active) Date First Assessed/Time First Assessed: 06/11/25 2248 Primary Wound Type: (c) Other (comment) Location: Perineum Wound/Incision 06/12/25 Pressure Injury Forearm Right (Active) Date First Assessed/Time First Assessed: 06/12/25 0845 Primary Wound Type: Pressure Injury Location: Forearm Wound Location Orientation: Right Constitutional: General Appearance []WDWN [x]Obese []Cachectic []Thin []Ill Eyes: Inspection of Pupils/Irises Pupils round and react: [x]Yes []No Sclera: []Icteric [x]Non-Icteric Inspection of Conjunctiva/Lids Conjunctiva: []Injected [x]Non-Injected Lids: [x]Intact []Lesion Present ENT/Mouth: External Inspection of ears/nose [x] Normal [] Scar/Lesion/Mass Inspection of teeth/lips/gums Dentition: [][place] Teeth []Dentures Lips/Gums: [x]Intact []Lesion Present Mucosa: [x][place] []Moist []Dry Neck: External Appearance Overall Appearance: [x]Normal []Lesion/Mass/Crepitus Present Trachea midline: []Yes []No Thyroid []Normal []Enlarged []Tender []Mass []Absent Respiratory: Respiratory effort []Labored [x]Non-Labored [] Mechanically-Ventilated Auscultation [x]Clear []Crackles []Wheezes []Rhonchi Cardiovascular: Auscultation Rate: []Regular []Irregular []Tachycardia [x]Bradycardia Rhythm: []Regular [x]Irregular Murmur: []Present []Absent Extremities Peripheral Edema: []Present [x]Absent Varicosities: []Present []Absent Gastrointestinal: Abdomen Palpation: [x]Soft []Firm []Tender [x]Non-Tender []Distended [x]Non-distended Mass: []Present []Absent Bowel Sounds: [x]Present []Absent Hernia: []Present []Absent Liver/Spleen: []Hepatosplenomegaly []Organomegaly Absent Musculoskeletal: Inspection of Digits and Nails Cyanosis: []Present [x]Absent Clubbing: []Present [x]Absent Ischemia: []Present []Absent Infection: []Present []Absent Extremities PAEZ Equally: Except ([]RUE []RLE []LUE []LLE) Strength/Tone: Intact and Normal ([]RUE []RLE []LUE []LLE) Skin: Inspection [x]Normal []Rash []Lesion []Ulcer Palpation [x]Warm []Cool [x]Dry []Clammy []Nodules []Induration []Skin-tightening Cap-Refill: [] <3 sec [] >3 seconds (delayed) Neurologic: GCS EYE: 4 - Opens spontaneously GCS MOTOR: 6 - Obeys commands for movement GCS VERBAL: 5 - Oriented to person, place, time Total GCS: 15 [] Sensation grossly intact Psych: Mental Status Alert: [x]Yes [] No Oriented: []x0 []X1 []X2 []x3 Mood/Affect [x]Normal []Flat []Agitated []Depressed []Anxious []Calm []Sedated []NAD Select Labs within last 24 hours- BMP: Recent Labs 06/17/25182406/18/25 0506/19/25 0201 NA 134* 137 136 K 4.7 4.2 4.2 CL 104 107 107 CO2 23 23 22* BUN 34* 32* 33* CREATININE 1.06 1.06 1.16* CALCIUM 7.8* 8.1* 7.9* LFTs: Recent Labs 06/17/25182406/18/25 0506/19/25 0201 AST 22 18 22 ALT 9 9 6 PROT 6.4 6.0* 5.6* ALBUMIN 1.9* 1.7* 1.6* BILITOT 0.6 0.7 0.8 ALKPHOS 82 73 65 Glucose: Recent Labs 06/17/25 0506 06/17/25182406/18/25 0529 06/19/25 0201 GLUCOSE 88 97 90 86 Procal: Recent Labs 06/17/251824 PROCAL 0.25* CBC: Recent Labs 06/17/25182406/18/25 0529 06/19/25 0201 WBC 14.2* 10.0 9.7 HGB 7.7* 7.2* 6.7* HCT 26.5* 25.2* 23.7* PLT 408 370 353 MCV 79.1 81.0 82.3 RDW 25.6* 25.1* 24.5* ABGs: Recent Labs 06/17/25 1740 PHART 7.512* XLE0TPV 31.5* PO2ART 73.7* [id number] 24.7 [id number] Non-Invasive Ventilator Lactic Acid: Recent Labs 06/17/251824 LACTATE 0.7 INR: No results for input(s): "INR" in the last 72 hours. Cardiac Injury Profile: No results for input(s): "CKTOTAL", "CKMB", "TROPONINI" in the last 72 hours. Labs in Last 3 months: Lab Results Component Value Date TSH 2.80 06/12/2025 INR 1.0 06/12/2025 Microbiology- Urine Cx: No results found for: URINECX Blood Cx: Lab Results Component Value Date BLOODCX No growth at 24 hours 06/17/2025 Sputum Cx: Lab Results Component Value Date RESPCULT Culture in progress 06/18/2025 Gram Stain: Lab Results Component Value Date LABGRAM Few Epithelial cells per low power field (A) 06/18/2025 LABGRAM (A) 06/18/2025 Moderate Polymorphonuclear leukocytes per low power field LABGRAM Rare Gram positive cocci (A) 06/18/2025 PNA PCR: Lab Results Component Value Date HUMANMETAPNE Not Detected 06/18/2025 COVID19: No results found for: COVID19 Legionella Ag: Lab Results Component Value Date LEGIONELLAPN Not Detected 06/18/2025 Strep Ag: No results for input(s): "STREPPNEUMO" in the last 72 hours. Imaging- Low lung volumes with patchy and more confluent airspace disease in a perihilar distribution reflecting multifocal pneumonia versus pulmonary edema. Questionable trace right pleural effusion. No pneumothorax. " Assessment and Plan: Principal Problem: Vaginal bleeding Active Problems: Acute hypoxemic respiratory failure (HCC) Atrial fibrillation (HCC) Acute blood loss anemia Assessment/Plan: Neuro: Developmental DELAY Hx of CVA w/ residual R sided deficits Cardio: Afib w/ RVR Acute on Chronic HFpEF(EF 60%) 06/18/25 - TTE (06/18/25) EF 60%, indeterminate diastolic function due to Afib, severe left atrial dilation, moderate right atrial dilation - Metoprolol tartrate 25 mg q6 for rate control and digoxin, currently being held in setting of bradycardia. - Per cardiology, will consider resuming DOAC and consider cardioversion once pt medically stable and healed from surgery - Cardiology consulted, will continue to follow HTN/HLD - Holding home hydralazine, carvedilol, amlodipine in setting of hypotension - Continue statin Pulm: Acute Hypoxemic Respiratory Failure Bilateral pulmonary infiltrates - New infection vs sequelae of previous PNA at outside hospital vs sequelae of TRALI - Infectious workup including PNA PCR, Respiratory PCR, MRSA nares negative - Blood culture NG at 24 hours - Respiratory culture GPC, potentially normal respiratory amita - Remains afebrile, previous leukocytosis resolved - Cefepime 06/17-06/18 - Vanc 06/17-06/18 - Zosyn 06/18-06/19 - Monitor for signs of infection as antibiotics have been discontinued - NIV at night, NC throughout day as tolerated GI/FEN: - Per chart review endoscopy performed at outside hospital 05/23 demonstrated "non-bleeding ulcers" - Adult diet, easy to chew : RAMEZ-improved Endometrioid adenocarcinoma - Previous plan for laparoscopic hysterectomy, bilateral salpingo-oophorectomy, bilateral sentinel lymphadenectomy on 06/18, now delayed - Per analytical chemist/onc, consider po progestin if bleeding increases - Watch And Clock Maker And Repairer/Onc following Endo: Stable Heme/Onc: Acute blood loss anemia - Receiving 1 unit pRBC this AM, post transfusion Hemoglobin of 9 (from 6.7) MSK: R. Forearm skin tear - Wound care has signed off - PT/OT as able Lines: R nursing home PIV, L PIV GI Prophylaxis: Pantoprazole PO DVT Prophylaxis: SCDs Disposition: Remain in ICU Status Patient seen and examined independently. Interval history reviewed. Agree with MS4. Subjective Hx, ROS, PE, and A/P with changes made throughout the note to reflect my thoughts and findings. Electronically signed by Catherine Walker DO at 3:42 PM [1] atorvastatin, 20 mg, Oral, Nightly melatonin, 3 mg, Oral, Nightly metoprolol tartrate, 25 mg, Oral, q6h mupirocin, 1 Application, Nasal, BID pantoprazole, 40 mg, Oral, Nightly Or pantoprazole (ProtoNix) 40 mg in sodium chloride (PF) 0.9 % 10 mL injection, 40 mg, IntraVENous, Nightly piperacillin-tazobactam, 4,500 mg, IntraVENous, q6h sodium chloride 0.9%, 5-40 mL, IntraVENous, q12h sodium chloride 0.9%, 5-40 mL, IntraVENous, q12h stomahesive in petrolatum, , Topical, q8h vancomycin, 1,500 mg, IntraVENous, q24h [2] Cosigned by Patt Velazquez DO at 06/19/2025 5:46 PM EDT Associated attestation - Patt Velazquez, - 06/19/2025 5:46 PM EDT I have personally performed a [id number] diagnostic evaluation on this patient on date of service 06/19/2025. History, labs, imaging studies, and electronic medical record have been reviewed by me. This note documented by the [x]plumbing warehouse helper []EVE reflects my history, exam, and medical decision making. I have reviewed and agree with the care plan. Changes were made in the orders as necessary. ROS documentation was reviewed and negative unless otherwise stated in HPI. Additional pertinent interval history, ROS, and physical exam findings: Ms Delacruz seen and evaluated at bedside. No acute events overnight. On my evaluation she is off NIV eating breakfast. Tolerating without issue. Assessment: Acute hypoxic respiratory failure Atrial fibrillation with RVR Diffuse bilateral pulmonary infiltrates, concern for TRALI RAMEZ Endometrial adenocarcinoma Acute blood loss anemia Developmental delay Hx CVA with residual right sided deficits Plan: -Supplemental O2 and NIV as needed -Cardiology consulted, planning for rate control, anticoagulation once recovered from surgery -Currently on vanc, zosyn. Infectious work up has been negative, will monitor off abx for now -Trend hemoglobin, transfuse to maintain >7 -Hold parameters for metoprolol -Watch And Clock Maker And Repairer/onc following, plan for D&C with levonorgestrel intrauterine device at this time Total critical care time for this patient with life-threatening unstable organ failure, including direct patient contact, management of life support systems, review of data including imaging and labs, and discussions with other team members and physicians at least 40 minutes so far today, excluding procedures. ICU Progress Note Name: Nancy Delacruz : 1965(59 y.o.) Date: 06/18/25 Team: MICU Chief Complaint: dyspnea, hypoxemia Subjective: Hospital Summary: 59-year-old female with history of developmental delay, A-fib, HTN, HLD, CVA with residual right-sided deficits who initially presented to outside hospital for vaginal bleeding, admitted with hemorrhagic shock. Outside hospital course complicated by pulmonary edema, pneumonia, hypoxemic respiratory failure requiring intubation, and biopsy positive for endometrial hyperplasia with atypical features worrisome for adenocarcinoma. Transferred to MICU on 06/17/25 with worsening hypoxemia and work of breathing. CTA chest 06/17 negative for PE but with bilateral patchy consolidation, small pleural effusions. Non-productive cough. Subjective/Interval Events: Remained on NIPPV overngith and most of today. Taken off this afternoon and requiring 6lpm NC. Heart rate difficult to control with metoprolol; loaded with dig. Patient notes continued difficulty breathing. Does not like the NIPPV and asks to be taken off Scheduled Meds:Scheduled Meds[1] Continuous Infusions:Continuous Meds[2] Objective: Last Vitals: BP MAP 122/69 (06/18/25 1700) 86 (06/18/25 1700) Arterial BP MAP Temp 37.4 C (99.3 F) (06/18/25 1600) Pulse 93 (06/18/25 1700) Resp 25 (06/18/25 1700) SpO2 95 % (06/18/25 1700) Weight 88 kg (194 lb) (06/18/25 1236) BMI Body mass index is 32.28 kg/m . I/O: 06/17 0700 - 06/18 0659 In: 984 [P.O.:240; I.V.:744] Out: 350 [Urine:350] Ventilator: Resp Rate (Set): 10 FiO2 (%): 50 % Inspiratory Time (sec): 1 sec Oxygen Delivery: O2 Flow Rate (L/min): 6 L/min Invasive Lines / Tubes / Drains: Conflict Resolution Professional Peripheral IV 06/17/25 Right Expires 07/17/2025 (Active) Number of days: 1 External Urinary Catheter (Active) Number of days: 6 Central Line Indication: NA - patient does not have a central line Fiore Indications: NA - patient does not have a Fiore catheter Restraints: NA - patient is not restrained. Wounds: Wound/Incision 06/11/25 Other (comment) Perineum (Active) Date First Assessed/Time First Assessed: 06/11/25 2248 Primary Wound Type: (c) Other (comment) Location: Perineum Wound/Incision 06/12/25 Pressure Injury Forearm Right (Active) Date First Assessed/Time First Assessed: 06/12/25 0845 Primary Wound Type: Pressure Injury Location: Forearm Wound Location Orientation: Right Constitutional: General Appearance []WDWN [x]Obese []Cachectic []Thin [x]Ill Eyes: Inspection of Pupils/Irises Pupils round and react: [x]Yes []No Sclera: []Icteric [x]Non-Icteric Inspection of Conjunctiva/Lids Conjunctiva: []Injected [x]Non-Injected Lids: [x]Intact []Lesion Present ENT/Mouth: External Inspection of ears/nose [x] Normal [] Scar/Lesion/Mass Inspection of teeth/lips/gums Dentition: [][place] Teeth []Dentures - poor dentition Lips/Gums: [x]Intact []Lesion Present Mucosa: [x][place] []Moist []Dry Neck: External Appearance Overall Appearance: [x]Normal []Lesion/Mass/Crepitus Present Trachea midline: [x]Yes []No Thyroid [x]Normal []Enlarged []Tender []Mass []Absent Respiratory: Respiratory effort [x]Labored []Non-Labored [] Mechanically-Ventilated Auscultation []Clear []Crackles []Wheezes [x]Rhonchi Cardiovascular: Auscultation Rate: []Regular [x]Irregular [x]Tachycardia []Bradycardia Rhythm: []Regular [x]Irregular Murmur: []Present [x]Absent Extremities Peripheral Edema: []Present [x]Absent Varicosities: []Present [x]Absent Gastrointestinal: Abdomen Palpation: [x]Soft []Firm []Tender []Non-Tender []Distended []Non-distended Mass: []Present []Absent Bowel Sounds: []Present [x]Absent Hernia: []Present []Absent Liver/Spleen: []Hepatosplenomegaly []Organomegaly Absent Musculoskeletal: Inspection of Digits and Nails Cyanosis: []Present [x]Absent Clubbing: []Present [x]Absent Ischemia: []Present []Absent Infection: []Present []Absent Extremities RUE chronic contracture and right hemiplegia from previous stroke Skin: Inspection []Normal []Rash []Lesion []Ulcer Palpation [x]Warm []Cool []Dry []Clammy []Nodules []Induration []Skin-tightening Cap-Refill: [x] <3 sec [] >3 seconds (delayed) Neurologic: GCS EYE: 4 - Opens spontaneously GCS MOTOR: 6 - Obeys commands for movement GCS VERBAL: 4 - Confused Total GCS: 14 [x] Sensation grossly intact Psych: Mental Status Alert: [x]Yes [] No Oriented: []x0 []X1 [x]X2 []x3 Mood/Affect []Normal []Flat []Agitated []Depressed [x]Anxious []Calm []Sedated []NAD Select Labs within last 24 hours- BMP: Recent Labs 06/17/25 05006/17/25182406/18/25 0529 NA 133* 134* 137 K 4.2 4.7 4.2 CL 102 104 107 CO2 23 23 23 BUN 32* 34* 32* CREATININE 1.13* 1.06 1.06 CALCIUM 8.2* 7.8* 8.1* LFTs: Recent Labs 06/17/25 05006/17/25182406/18/25 0529 AST 29 22 18 ALT 12 9 9 PROT 6.8 6.4 6.0* ALBUMIN 2.1* 1.9* 1.7* BILITOT 0.6 0.6 0.7 ALKPHOS 92 82 73 Glucose: Recent Labs 06/16/25 0600 06/17/25 05006/17/25182406/18/25 0529 GLUCOSE 86 88 97 90 Procal: Recent Labs 06/17/251824 PROCAL 0.25* CBC: Recent Labs 06/17/25 0506 06/17/25 1740 06/17/25 1825 06/18/25 0529 WBC 13.3* -- 14.2* 10.0 HGB 8.4* 8.3 7.7* 7.2* HCT 29.0* -- 26.5* 25.2* PLT 524* -- 408 370 MCV 80.6 -- 79.1 81.0 RDW 25.6* -- 25.6* 25.1* ABGs: Recent Labs 06/17/251739 PHART 7.512* [id number] 31.5* PO2ART 73.7* [id number] 24.7 [id number] Non-Invasive Ventilator Lactic Acid: Recent Labs 06/17/251824 LACTATE 0.7 INR: No results for input(s): "INR" in the last 72 hours. Cardiac Injury Profile: No results for input(s): "CKTOTAL", "CKMB", "TROPONINI" in the last 72 hours. Labs in Last 3 months: Lab Results Component Value Date TSH 2.80 06/12/2025 INR 1.0 06/12/2025 Microbiology- Urine Cx: No results found for: URINECX Blood Cx: Lab Results Component Value Date BLOODCX Blood culture incubation started 06/17/2025 Sputum Cx: No results found for: RESPCULT Gram Stain: No results found for: LABGRAM PNA PCR: Lab Results Component Value Date HUMANMETAPNE Not Detected 06/18/2025 COVID19: No results found for: COVID19 Legionella Ag: No results found for: "LEGIONELLAPN" Strep Ag: No results for input(s): "STREPPNEUMO" in the last 72 hours. Imaging- Reviewed personally including images and radiologist reports. Salient findings summarized in hospital summary and below. Assessment and Plan: Principal Problem: Vaginal bleeding Active Problems: Acute hypoxemic respiratory failure (HCC) Atrial fibrillation (HCC) Acute blood loss anemia Assessment/Plan: Acute hypoxemic respiratory failure Atrial fibrillation with RVR Acute on chronic HFpEF Bilateral diffuse pulmonary infiltrates -- new infection vs sequelae of previous PNA (rx at OSH) vs sequelae of TRALI; some component of pulm edea Atypical Hyperplasia with concern for endometrioid adenocarcinoma Acute blood loss anemia - stabilized RAMEZ - improved NIPPV support needed overnight and this morning. Use again overnight. NC as tolerated during the day Noted cardiology recs; judicious diuresis PNA workup and broad spectrum abx Rate control for afib - metop. Given intermittent RVR to 160s-170s elected to load dig without maintenance dose; uptitrate beta charlotte as hemodynamics allow. No anticoag given bleeding issues Discussed with analytical chemist-onc; plan for dilation and curettage and levonorgestrel intrauterine device placement when medically stable Full Code Family/next of kin: brother and mom updated Disposition: Remain in ICU Status Critical Care Time: 45 minutes Total critical care time caring for this patient with life threatening, unstable organ failure, including direct patient contact, management of life support systems, review of data including imaging and labs, discussions with other team members and physicians, excluding procedures. [1] atorvastatin, 20 mg, Oral, Nightly digoxin, 250 mcg, IntraVENous, q6h melatonin, 3 mg, Oral, Nightly metoprolol tartrate, 25 mg, Oral, q6h mupirocin, 1 Application, Nasal, BID pantoprazole, 40 mg, Oral, Nightly Or pantoprazole (ProtoNix) 40 mg in sodium chloride (PF) 0.9 % 10 mL injection, 40 mg, IntraVENous, Nightly piperacillin-tazobactam, 4,500 mg, IntraVENous, q6h sodium chloride 0.9%, 5-40 mL, IntraVENous, q12h sodium chloride 0.9%, 5-40 mL, IntraVENous, q12h stomahesive in petrolatum, , Topical, q8h vancomycin, 1,500 mg, IntraVENous, q24h [2] Images from the original note were not included. PHYSICAL THERAPY [facility] Name/MRN: Nancy Delacruz ([id number]) Date: 06/18/2025 Re-evaluation is being deferred at present because pt is awaiting surgery for hysterectomy, bilateral salpingo-oophorectomy, and sentinel lymphadenectomy. Will follow as appropriate. Janet Dotson, SPT Cosigned by Frederick Light PT at 06/18/2025 1:36 PM EDT Speech-Language Pathology ST following for dysphagia treatment. Per RN, patient is NPO for a procedure this date. Will plan to continue treatment next date. Most recent diet recommendations were for easy to chew solids with thin liquids. Viji Chau M.A., CCC-SMOKEHOUSE WORKER Images from the original note were not included. [facility] Wound Care Progress Note Nancy Delacruz AGE: 59 y.o. GENDER: female : 1965 Subjective: HISTORY of PRESENT ILLNESS HPI Nancy Delacruz is a 59 y.o. female who presents for a wound care progress note. HPI: Per chart review, patient has been hospitalized for 21 days at [facility] inpatient on PCU. Pt initially presented with altered mental status and hemoglobin of 3.6 and lactic of 6.7. Pt was found to have extensive vaginal bleeding. Patient has been transferred from [facility] to [facility] for further evaluation and management of vaginal bleeding concerning for endometrial cancer. Wound Care consulted for " Skin Tear/Pressure Injury; L buttock, Right forearm/elbow". Patient resting in bed at time of visit with family at bedside. Patient and family updated on plan of care. PAST MEDICAL HISTORY Medical History[1] PAST SURGICAL HISTORY Surgical History[2] FAMILY HISTORY Family History[3] SOCIAL HISTORY Social History[4] ALLERGIES Allergies[5] MEDICATIONS Medications Ordered Prior to Encounter[6] REVIEW OF SYSTEMS Pertinent items are noted in HPI. Objective: BP 119/81 Pulse (!) 133 Temp 36.9 C (98.5 F) (Temporal) Resp (!) 27 Wt 88.3 kg (194 lb 10.7 oz) SpO2 90% PHYSICAL EXAM General appearance: in no apparent distress, alert, oriented times 3, and cooperative Skin: warm and dry Pulmonary: Normal effort, no respiratory distress, no cyanosis Right forearm: Resolved Right elbow: Resolved 06/18/25 LABS CBC: Lab Results Component Value Date WBC 10.0 06/18/2025 HGB 7.2 (L) 06/18/2025 HGB 8.3 06/17/2025 HCT 25.2 (L) 06/18/2025 MCV 81.0 06/18/2025 PLT 370 06/18/2025 BMP: Lab Results Component Value Date NA 137 06/18/2025 K 4.2 06/18/2025 CL 107 06/18/2025 CO2 23 06/18/2025 BUN 32 (H) 06/18/2025 CREATININE 1.06 06/18/2025 PT/INR: No results found for: "PROTIME", INR Prealbumin: No results found for: PREALBUMIN Albumin:No components found for: LABALBU Sed Rate:No results found for: SEDRATE Micro: No components found for: BC Assessment/Plan: Nursing staff to perform dressing change: Right elbow: Abrasion - Resolved - Leave KT - Region does not require wound care follow up Right forearm: Skin Tear - Resolved - leave KT Nutritional support Wound care to sign off service at this time. Please re-consult if services are needed. Any questions or concerns please secure chat "ACH wound/ostomy". I personally obtained the zepeda and critical portions of the history and physical exam. I reviewed the labs, imaging studies, and electronic medical record. I reviewed the chart documentation and discussed the patient with treatment team members. I have edited the note to reflect my clinical findings and my assessment and plan. Please note, the time of this note does not reflect the time I saw this patient today, but the time of this documentaton. Portions of this note including HPI, ROS, impression/plan, and examination may have been copied forward from admission to today as to provide important historical information essential in contributing to medical decision making. Documentation has been reviewed and edited as necessary to support clinical decision making for today's visit and to reflect my own independent evaluation of this patient. Decision making for today's visit and to reflect my own independent evaluation of this patient. [1] No past medical history on file. [2] No past surgical history on file. [3] No family history on file. [4] [5] Not on File [6] No current facility-administered medications on file prior to encounter. Current Outpatient Medications on File Prior to Encounter Medication Sig Dispense Refill amLODIPine (Norvasc) 10 MG tablet 10 mg. carvedilol (Coreg) 3.125 MG tablet 3.125 mg. hydrALAZINE (Apresoline) 100 MG tablet 100 mg. simvastatin (Zocor) 20 MG tablet 20 mg. Cosigned by Elmer Pacheco DO at 06/19/2025 12:01 PM EDT Pharmacy to Dose Vancomycin - Progress Note Lab Results Component Value Date CREATININE 1.06 06/18/2025 BUN 32 (H) 06/18/2025 WBC 10.0 06/18/2025 Doses, serum creatinine, and vancomycin levels interfaced automatically to [employer] and data has been analyzed and interpreted. Infectious Diagnosis: Pneumonia (HAP) Est CrCl: 77 mL/min (Cockcroft-Gault) Assessment: Current regimen vancomycin 1250 mg every 24 hours (14 mg/kg) Predicted AUC = 459 mg/L*hr (goal 400-600 mg/L*hr) PAUC = 67% (probability that AUC is >400 mg/L*hr) Pconc = <5% (probability that Ctrough is above 20 mcg/mL (toxicity)) Plan: Is the current dose therapeutic? [x] Yes - however can better optimize dosing, therefore will change current regimen to vancomycin 1500 mg every 24 hours (17 mg/kg) for predicted AUC 507 mg/L*hr, PAUC = 84% , and Pconc* = 10%. Obtain next level on 06/19. [] No Trend serum creatinine. Trend AUC using Bayesian Modeling. Orders placed. DATE: 06/18/25 TIME: 9:12 AM Tesha Waller RPh Clinical Pharmacist Available via Secure Chat Images from the original note were not included. Watch And Clock Maker And Repairer Oncology Progress Note Date: 06/18/2025 Time: 6:04 AM Please page the [facility] DISTANCE LEARNING PROGRAM COORDINATOR ONC Call RES group via Secure Chat for any questions or concerns. Nancy Delacruz 59 y.o. female admitted for vaginal bleeding in the setting of endometrial carcinoma, currently in the ICU for acute hypoxemic respiratory failure Patient seen and examined. Patient was sleeping and not disturbed. No family at bedside this AM. Patient currently on PPV. Vitals: Vitals: 06/18/25 0400 06/18/25 0500 06/18/25 0529 06/18/25 0600 BP: 90/66 94/79 105/64 BP Location: Left arm Patient Position: Lying Pulse: 98 107 101 Resp: 19 23 23 Temp: 36.9 C (98.4 F) TempSrc: Temporal SpO2: 93% 99% 99% Weight: 194 lb 10.7 oz (88.3 kg) Intake/Output: Current Shift: I/O this shift: In: 744 [I.V.:744] Out: 350 [Urine:350] Physical Exam: Gen: NAD, resting comfortably in bed HEENT: Normocephalic, Atraumatic Resp: No increased WOB, no respiratory distress, on PPV Medications: Current Facility-Administered Medications: acetaminophen (Tylenol) tablet 650 mg, 650 mg, Oral, q6h PRN, 650 mg at 06/17/25 4854 OR acetaminophen (Tylenol) suppository 650 mg, 650 mg, Rectal, q6h PRN, Navi Roberts MD amLODIPine (Norvasc) tablet 10 mg, 10 mg, Oral, Daily, Navi Roberts MD, 10 mg at 06/17/25 0941 atorvastatin (Lipitor) tablet 20 mg, 20 mg, Oral, Nightly, Navi Roberts MD, 20 mg at 06/17/252010 carvedilol (Coreg) tablet 3.125 mg, 3.125 mg, Oral, BID WC, Navi Roberts MD, 3.125 mg at 06/17/25 0651 cefepime (Maxipime) 2,000 mg in sodium chloride 0.9 % 50 mL IVPB Mini-Bag Plus, 2,000 mg, IntraVENous, q8h, Sy Bloom MD, Stopped at 06/18/25 0322 hydrALAZINE (Apresoline) tablet 10 mg, 10 mg, Oral, BID, Liban Franklin MD, 10 mg at 06/17/252010 melatonin tablet 3 mg, 3 mg, Oral, Nightly, Navi Roberts MD, 3 mg at 06/17/252010 metoprolol tartrate (Lopressor) injection 5 mg, 5 mg, IntraVENous, q6h PRN, Sy Bloom MD, 5 mg at 06/17/25 1706 mupirocin (Bactroban) 2 % ointment 1 Application, 1 Application, Nasal, BID, Sy Bloom MD, 1 Application at 06/17/252010 ondansetron ODT (Zofran-ODT) disintegrating tablet 4 mg, 4 mg, Oral, q8h PRN OR ondansetron (Zofran) injection 4 mg, 4 mg, IntraVENous, q6h PRN, Navi Roberts MD pantoprazole (ProtoNix) EC tablet 40 mg, 40 mg, Oral, Nightly, 40 mg at 06/17/252010 OR pantoprazole (ProtoNix) 40 mg in sodium chloride (PF) 0.9 % 10 mL injection, 40 mg, IntraVENous, Nightly, Sy Bloom MD polyethylene glycol (PEG) 3350 (Miralax) packet 17 g, 17 g, Oral, Daily PRN, Navi Roberts MD, 17 g at 06/15/25 1039 sodium chloride 0.9 % infusion, 5-250 mL/hr, IntraVENous, PRN, Navi Roberts MD sodium chloride 0.9 % infusion, 5-250 mL/hr, IntraVENous, PRN, Liban Franklin MD sodium chloride 0.9% (NS) flush 5-40 mL, 5-40 mL, IntraVENous, q12h, Navi Roberts MD, 5 mL at 06/15/25 1233 sodium chloride 0.9% (NS) flush 5-40 mL, 5-40 mL, IntraVENous, q12h, Liban Franklin MD, 5 mL at 06/15/25 1233 stomahesive in petrolatum (ET Mix), , Topical, q8h, Mayra MARIMAR MathisN - CELLULOSE INSULATION HELPER, Given at 06/18/25 0527 stomahesive in petrolatum (ET Mix), , Topical, PRN, Marya Emiliamelian INTERNIST - CELLULOSE INSULATION HELPER [COMPLETED] vancomycin IVPB 1500 mg in 250 mL NS (premix), 1,500 mg, IntraVENous, Once, Stopped at 06/17/25 1912 FOLLOWED BY vancomycin (Vancocin) 1,000 mg in sodium chloride 0.9 % 250 mL IVPB (Vial Mate), 1,000 mg, IntraVENous, q24h, Sy Bloom MD Diagnostics: ECG 12 lead Result Date: 06/12/2025 Atypical Atrial flutter vs coarse Atrial fibrillation LVH with secondary repolarization abnormality Electronically Signed On 06-12-2025 17:39:43 EDT by Ligia Lackey XR chest 1 view Result Date: 06/12/2025 Patient Name: NANCY DELACRUZ : 1965 Exam Date/Time: 06/12/2025 10:56 Procedure: XR CHEST 1 VIEW Ordering Provider: FRANKLIN JAMES Reason For Exam: R IJ CVC issues; confirm correct positioning PORTABLE CHEST X-RAY CLINICAL INDICATION: Line placement A portable frontal view of the chest was obtained. COMPARISON: None FINDINGS: Heart size is within normal limits. Right jugular catheter terminates in the expected location of the superior vena cava. Low lung volumes are present. There is coarse infiltrate within the lateral aspect of the left midlung and within the right infrahilar region. No large pleural effusion or pneumothorax is seen. There are degenerative changes of the spine. Right jugular catheter terminates in the expected location of the superior vena cava. No pneumothorax is seen. Coarse bilateral infiltrates, most confluent within the lateral aspect of the left midlung. Follow-up to clearing is recommended. No prior examinations are available. Report Dictated on Electronically Signed By: Carlos Neal MD Electronically Signed Date/Time: 06/12/2025 11:18 AM EDT Labs: No results displayed because visit has over 200 results. Assessment/Plan: Nancy Delacruz 59 y.o. female admitted for vaginal bleeding in the setting of endometrial carcinoma, currently in the ICU for acute hypoxemic respiratory failure Endometrioid Adenocarcinoma Atypical Hyperplasia Acute Blood Loss Anemia TUVS 06/01 with 21mm irregular stripe. CA125 of 87. EMB 06/06 with complex atypical hyperplasia and endometrioid adenocarcinoma in setting of vaginal bleeding for indeterminate amount of time. - Patient scheduled for laparoscopic hysterectomy, bilateral salpingo-oophorectomy, bilateral sentinel lymphadenectomy today, with change in patient acuity, may consider delaying major surgery until patient is medically stable - Mother is POA, noted in chart, Brother is secondary POA - Can consider PO progestin if bleeding does increase again in interm - Continue to transfuse as needed Daily CBC, Hgb stable at 7.2 Respiratory Failure RAMEZ, resolving Thrombocytosis HTN Hx Atrial Fibrillation HLD - On 06/17 patient developed acute hypoxemic respiratory failure and was transferred to the ICU for higher level of care - Patient on PPV this AM - BNPO - Troponin mildly elevated 16 - Continue home meds Norvasc, lipitor, Hydralazine and coreg per primary - Daily CMP w/mag - Continue Tele - Management per primary - Will coordinate with primary IM team for inpatient vs outpatient management pending clinical course Suspected Pneumonia Simple Sepsis - Current on Cefepime and Vancomycin - WBC down trending this AM, 10.0 Sacral Wound, Stage 1 - Present on admission to [facility] - Would care consulted per primary Plan to be discussed with Dr. Rodriguez Please page the [facility] DISTANCE LEARNING PROGRAM COORDINATOR ONC Call RES group via Secure Chat for any questions or concerns. Sowmya Campoverde DO 06/18/2025, 6:04 AM Cosigned by David Ortega MD at 06/18/2025 3:57 PM EDT Associated attestation - David Ortega MD - 06/18/2025 3:57 PM EDT Attending Supervising Physician's Attestation Statement I performed a history and physical examination on the patient and discussed the management with the resident physician. I reviewed and agree with the findings and plan as documented in her note. Events of the past 24 hours reviewed. At present, I think from a analytical chemist standpoint, the patient's best option is to undergo dilation and curettage and levonorgestrel intrauterine device placement when medically stable. This should temporize any bleeding and treat the hyperplasia +/- low grade endometrial adenocarcinoma until patient is medically stable to undergo hysterectomy. Plan of care discussed with the patient's mother over the phone. We will continue to follow along. Family Communication Number Called: [phone] Name of Designated Family Division Chief: Johana Delacruz Relationship: mother Phone Call Outcome: I spoke with the individual listed above. Family Division Chief Updated on the Following: Discussed transfer to ICU due to respiratory failure. May need intubation overnight. Watch And Clock Maker And Repairer/onc procedure will likely need to be delayed. All questions answered. Images from the original note were not included. Pharmacy Managed Vancomycin Dosing Service Consult Note Consult Date: 06/17/25 Patient Name: Nancy Delacruz Allergies: Patient has no allergy information on record. Age: 59 y.o. Sex: female There is no height or weight on file to calculate BMI. DW: 77.7 kg Lab Results Component Value Date CREATININE 1.13 (H) 06/17/2025 CREATININE 1.02 06/16/2025 BUN 32 (H) 06/17/2025 BUN 33 (H) 06/16/2025 WBC 13.3 (H) 06/17/2025 WBC 9.1 06/16/2025 Calculated CrCl: 63 mL/min (Cockcroft-Gault) Consulted By: Sy Bloom MD Infectious Diagnosis: Pneumonia (HAP) (AUC Goal 400-600 mg/L*hr) Random Vancomycin Level Due: 06/18/2025 Antimicrobials: Patient recently received an antibiotic (last 12 hours) None Assessment/Plan: Doses, serum creatinine, and vancomycin levels interfaced automatically to [employer] and data has been analyzed and interpreted. Start: Vancomycin 1500 mg ONCE as one time loading dose (19.3 mg/kg) Followed by: Vancomycin 1250 every 24 hours based on patient age, weight, renal function, and infectious diagnosis (16.1 mg/kg). Predicted AUC = 527 mg/L*hr (goal 400-600 mg/L*hr) PAUC = 81% (probability that AUC is >400 mg/L*hr) Pconc = 10% (probability that Ctrough is above 20 mcg/mL (toxicity)) Will assess AUC level on 06/18 and adjust as appropriate. Trend serum creatinine. Orders placed. Thank you for this consult. Please secure text or call with questions. DATE: 06/17/25 TIME: 4:04 PM Shant Carney PharmD Clinical Pharmacist Available via Secure Chat Hospitalist Progress Note 06/17/2025 Subjective: Admit Date: 06/11/2025 PCP: SABRINA DURAN Room#: [id number] A BRIEF HOSPITAL COURSE: PER PRIOR NOTES: 59 y.o. female with history of HTN, HLD, atrial fibrillation, developmental delay, stroke with Right hemiparesis who was transferred to [facility] from OSH on 06/11/25 for vaginal bleeding concerning for endometrial cancer. Patient reportedly with extensive hospitalization at [facility] and initially admitted for AMS, anemia with Hb 3.6, and lactic acid 6.7. She was reportedly found to have extensive vaginal bleeding, required intubation and multiple units of pRBC transfusions. EGD (05/23/25) with non-bleeding ulcers. Found to have elevated CA 125: 87. Patient reportedly developed respiratory distress on 06/04 requiring BIPAP and was started on IV lasix with some improvement, but lasix discontinued due to worsening creatinine. [facility] ICU team at reviewed hospital course from OSH and cleared patient for PCU. Patient transferred to [facility] under hospitalist service. Watch And Clock Maker And Repairer-Onc consulted/evaluated at [facility], and stated that patient would be candidate for therapeutic dilation and curettage vs definitive treatment and surgical staging with TLH, BSO, SNLS. Labs continue to be stable, brother continued to be updated at bedside. Further chart review on 06/16 noted on outside records from 04/2025 regarding acute hypoxic respiratory failure during hospitalization. Was intubated 05/25 as AHRF was thought to be due to CHF and pneumonia. Requiring 2 L at the time. 06/04 had oxygen requirement increased as well as BiPAP, was a bit volume overloaded and had increase in her Lasix, 06/04 transfer was initiated. Interval History: Patient seen and examined. Chart reviewed. Increasing O2 needs. Denies fevers, chills, chest pain, shortness of breath, abdominal pain, nausea or vomiting. Discussed with brother at bedside about potential surgical intervention 06/18. Case and plan discussed with patient and bedside nurse. All questions answered. Adult diet Easy to Chew 24HR INTAKE/OUTPUT: Intake/Output Summary (Last 24 hours) at 06/17/2025 1349 Last data filed at 06/17/2025 0946 Gross per 24 hour Intake 360 ml Output 1250 ml Net -890 ml Past Medical History: Medical History[1] LABS: CBC: Recent Labs 06/15/25 0606/16/25 0606/17/25 0506 WBC 7.8 9.1 13.3* RBC 3.51* 3.40* 3.60* HGB 7.9* 7.9* 8.4* HCT 28.0* 27.5* 29.0* MCV 79.8 80.9 80.6 RDW 26.4* 25.6* 25.6* PLT 514* 482* 524* BMP: Recent Labs 06/15/25 0606/16/25 0600 06/17/25 0506 NA 136 136 133* K 3.7 4.3 4.2 CL 103 103 102 CO2 26 24 23 BUN 29* 33* 32* CREATININE 1.06 1.02 1.13* GLUCOSE 80* 86 88 CALCIUM 8.1* 8.1* 8.2* ANIONGAP 7 9 8 LIVER PROFILE: Recent Labs 06/15/25 0612 06/16/25 0600 06/17/25 0506 AST 28 28 29 ALT 16 12 12 BILITOT 0.4 0.5 0.6 ALKPHOS 83 81 92 PROT 6.1* 6.0* 6.8 PT/INR: No results for input(s): "PROTIME", "INR" in the last 72 hours. CARDIAC ENZYMES: No results for input(s): "TROPONINI" in the last 72 hours. Procalcitonin: No results found for: "PROCAL" COVID-19 PCR: No results for input(s): "COVID19" in the last 72 hours. Objective: Vitals: BP 118/87 (BP Location: Left arm, Patient Position: Sitting) Pulse (!) 123 Temp 37 C (98.6 F) (Temporal) Resp 20 Wt 171 lb 4.8 oz (77.7 kg) SpO2 91% Pulse Ox: SpO2 Av.7 % Min: 90 % Max: 100 % Supplemental O2: O2 Flow Rate (L/min): 4 L/min Physical Exam Constitutional: General: She is not in acute distress. Appearance: She is ill-appearing. HENT: Head: Normocephalic and atraumatic. Mouth/Throat: Mouth: Mucous membranes are moist. Eyes: Extraocular Movements: Extraocular movements intact. Conjunctiva/sclera: Conjunctivae normal. Cardiovascular: Rate and Rhythm: Tachycardia present. Rhythm irregular. Pulmonary: Effort: Pulmonary effort is normal. Comments: +diminished BS's Abdominal: General: There is no distension. Palpations: Abdomen is soft. Tenderness: There is no abdominal tenderness. Musculoskeletal: General: No swelling. Skin: General: Skin is warm and dry. Neurological: Mental Status: She is alert. She is disoriented. Comments: +right-sided weakness, facial droop Psychiatric: Mood and Affect: Mood normal. Medications: Scheduled PRN Scheduled Meds[2] PRN Meds[3] Continuous Continuous Meds[4] Assessment Plan Vaginal bleeding with concern for endometrial cancer and elevated CA125 -Seen by Watch And Clock Maker And Repairer/onc -Tentative plan for minimally invasive hysterectomy, bilateral salpingo- oophorectomy, sentinel lymphadenectomy on 06/18 Acute blood loss anemia -Hemoglobin stable -No further signs of vaginal bleeding -Transfuse for hemoglobin less than 7 Lactic acidosis-resolved Acute respiratory failure -Supplemental oxygen had been weaned to 2 L nasal cannula but now worsened to 4 L -Recent pneumonia and CHF -Consult pulmonology A-fib with RVR - IV metoprolol prn - consult cardiology RAMEZ-creatinine proving Dysphagia-speech therapy following -Recent MBS on 06/13 which showed no vocal cord penetration or airway aspiration Hypertension-continue Norvasc, Coreg, hydralazine Gastric ulcers History of stroke with residual right-sided hemiparesis History of atrial fibrillation Developmental delay Advance Directive: Full Code Anticipated Discharge - Date - DC SNF 06/19 Extended Emergency Contact Information Primary Emergency Contact: Wayne Delacruz Mobile Relation: Brother Preferred language: Nigerien Secondary Emergency Contact: Johana Delacruz Mobile Relation: Mother Preferred language: Nigerien Sedrick Chavez DO Division of Hospitalist Medicine Acute care [facility] [1] No past medical history on file. [2] amLODIPine, 10 mg, Oral, Daily atorvastatin, 20 mg, Oral, Nightly carvedilol, 3.125 mg, Oral, BID WC hydrALAZINE, 10 mg, Oral, BID melatonin, 3 mg, Oral, Nightly sodium chloride 0.9%, 5-40 mL, IntraVENous, q12h sodium chloride 0.9%, 5-40 mL, IntraVENous, q12h stomahesive in petrolatum, , Topical, q8h [3] PRN medications: acetaminophen OR acetaminophen, ondansetron ODT OR ondansetron, polyethylene glycol (PEG) 3350, sodium chloride, sodium chloride, stomahesive in petrolatum [4] Hospitalist Progress Note 06/16/2025 Subjective: Admit Date: 06/11/2025 PCP: SABRINA DURAN Room#: [id number] A BRIEF HOSPITAL COURSE: PER PRIOR NOTES: 59 y.o. female with history of HTN, HLD, atrial fibrillation, developmental delay, stroke with Right hemiparesis who was transferred to [facility] from OSH on 06/11/25 for vaginal bleeding concerning for endometrial cancer. Patient reportedly with extensive hospitalization at [facility] and initially admitted for AMS, anemia with Hb 3.6, and lactic acid 6.7. She was reportedly found to have extensive vaginal bleeding, required intubation and multiple units of pRBC transfusions. EGD (05/23/25) with non-bleeding ulcers. Found to have elevated CA 125: 87. Patient reportedly developed respiratory distress on 06/04 requiring BIPAP and was started on IV lasix with some improvement, but lasix discontinued due to worsening creatinine. [facility] ICU team at reviewed hospital course from OSH and cleared patient for PCU. Patient transferred to [facility] under hospitalist service. Watch And Clock Maker And Repairer-Onc consulted/evaluated at [facility], and stated that patient would be candidate for therapeutic dilation and curettage vs definitive treatment and surgical staging with TLH, BSO, SNLS. Labs continue to be stable, brother continued to be updated at bedside. Further chart review on 06/16 noted on outside records from 04/2025 regarding acute hypoxic respiratory failure during hospitalization. Was intubated 05/25 as AHRF was thought to be due to CHF and pneumonia. Requiring 2 L at the time. 06/04 had oxygen requirement increased as well as BiPAP, was a bit volume overloaded and had increase in her Lasix, 06/04 transfer was initiated. Interval History: No overnight issues. Case and plan discussed with patient and brother at bedside. All questions regarding blood work answered. Hopefully plan is surgical intervention 06/18. Adult diet Easy to Chew 24HR INTAKE/OUTPUT: Intake/Output Summary (Last 24 hours) at 06/16/2025 1259 Last data filed at 06/16/2025 1028 Gross per 24 hour Intake 480 ml Output 700 ml Net -220 ml Past Medical History: Medical History[1] LABS: CBC: Recent Labs 06/14/253 06/15/25 0612 06/16/25 0600 WBC 8.2 7.8 9.1 RBC 3.38* 3.51* 3.40* HGB 7.6* 7.9* 7.9* HCT 27.1* 28.0* 27.5* MCV 80.2 79.8 80.9 RDW 26.3* 26.4* 25.6* PLT 460* 514* 482* BMP: Recent Labs 06/14/2523206/15/25 0606/16/25 0600 NA 137 136 136 K 3.8 3.7 4.3 CL 104 103 103 CO2 27 26 24 BUN 31* 29* 33* CREATININE 1.34* 1.06 1.02 GLUCOSE 87 80* 86 CALCIUM 7.9* 8.1* 8.1* ANIONGAP 6 7 9 LIVER PROFILE: Recent Labs 06/14/2523206/15/2561106/16/25 0600 AST 26 28 28 ALT 14 16 12 BILITOT 0.4 0.4 0.5 ALKPHOS 81 83 81 PROT 5.9* 6.1* 6.0* PT/INR: No results for input(s): "PROTIME", "INR" in the last 72 hours. CARDIAC ENZYMES: No results for input(s): "TROPONINI" in the last 72 hours. Procalcitonin: No results found for: "PROCAL" COVID-19 PCR: No results for input(s): "COVID19" in the last 72 hours. Objective: Vitals: BP 123/75 (BP Location: Right arm, Patient Position: Lying) Pulse (!) 137 Temp 36.1 C (97 F) (Temporal) Resp 20 Wt 169 lb 8 oz (76.9 kg) SpO2 95% Pulse Ox: SpO2 Av % Min: 92 % Max: 99 % Supplemental O2: O2 Flow Rate (L/min): 4 L/min Physical Exam Vitals reviewed. Constitutional: General: She is not in acute distress. Appearance: Normal appearance. She is not ill-appearing or toxic-appearing. HENT: Head: Normocephalic. Cardiovascular: Rate and Rhythm: Normal rate. Pulmonary: Effort: Pulmonary effort is normal. No respiratory distress. Musculoskeletal: General: No deformity. Skin: General: Skin is warm. Neurological: Mental Status: She is alert. Psychiatric: Mood and Affect: Mood normal. Behavior: Behavior normal. Medications: Scheduled PRN Scheduled Meds[2] PRN Meds[3] Continuous Continuous Meds[4] Assessment Data: (CAT1) Reviewed 2 notes from different specialty or health system (each=1). (CAT1) Reviewed 1 labs/studies previously ordered by me not previously counted (each=1, panels count as 1). (CAT3) Mgmt of the patient was discussed with Diana Coreas CM, who stated, in summary: will touch base with brother on dispo planning. (LOW: 2x CAT1 or independent historian MOD: 3x CAT1 or 1x CAT3 EXTENSIVE: 3x CAT1 and 1x CAT3) Acute, acute on chronic, unstable/uncontrolled chronic problems/diagnoses: Vaginal bleeding with concern for endometrial cancer and elevated CA125 Acute blood loss anemia, stable Lactic acidosis resolved AHRF RAMEZ Thrombocytosis Dysphagia status post MBBS 06/13 EGD on the 05/23 that showed ulcers Stable chronic problems affecting care, new non-acute diagnoses: Medical History[5] Plan As a result of the above findings & factors, the following mgmt was pursued: Vaginal bleeding with concern for endometrial cancer Elevated [id number] blood loss anemia not requiring blood transfusion so far - analytical chemist onc has been following - 06/18 minimally invasive hysterectomy, bilateral salpingo-oophorectomy, sentinel lymphadenectomy. - if not medically stable for major surgery, will plan on dilation and curettage and levonorgestrel intrauterine device placement. - Transfuse if H&H less than 7, stable above 7 for a few days now Acute hypoxic respiratory insufficiency/failure New oxygen requirement during hospital stay at OSH -Status post intubation Vital signs 05/25 at [facility] - New oxygen requirement 3 L nasal cannula during hospital stay - in setting of pna and CHF during that stay; off lasix due to worsening Dysphagia status post MBSS 06/13 - No vocal cord penetration or airway aspiration does have small pharyngocele - per chart review; EGD on the 05/23 that showed ulcers - am labs, replace lytes prn - PT/OT/CM/SW - delirium precautions: increase activity - DVT prophylaxis: encourage ambulation Complexity: Acute illness or injury posing a threat to life or body function (HIGH). Undiagnosed new problem with uncertain prognosis (MOD). Acute illness with systemic symptoms (MOD). Risk: Admission to hospital-level care was considered or occurred (HIGH). Prescription drug/IVF/colloid was initiated, discontinued, adjusted; or reviewed with decision to maintain current orders (MOD). Consult to surgery for major surgery, or minor surgery with identified patient or procedural risk factors, was considered or occurred (MOD). Advance Directive: Full Code Anticipated Discharge - Date - 06/21 vs other - Location - tbd - Pending the following -improvement of acute medical issue Total time spent (which include face to face and non face to face encounters) : 45 minutes Toxic drug monitoring/narrow therapeutic index drug monitoring : # Drug name : na # Route administered : NA # Method of monitoring : NA Extended Emergency Contact Information Primary Emergency Contact: Wayne Delacruz Mobile Relation: Brother Preferred language: Nigerien Secondary Emergency Contact: Johana Delacruz Mobile Relation: Mother Preferred language: Nigerien Comment: Please note that portions of the note for this encounter were entered using an speech recognition software and may contain errors related to that system including errors in grammar, punctuation, and spelling, as well as words and phrases that may be inappropriate. Best attempts were made to edit/proofread the information prior to note completion. Despite the review of information, some errors may remain. If there are questions related to the information contained within the note please contact the signing provider for clarification. Amy Laguerre MD Division of Hospitalist Medicine [facility] [1] No past medical history on file. [2] amLODIPine, 10 mg, Oral, Daily atorvastatin, 20 mg, Oral, Nightly carvedilol, 3.125 mg, Oral, BID WC chlorhexidine, , Topical, Daily hydrALAZINE, 10 mg, Oral, BID melatonin, 3 mg, Oral, Nightly sodium chloride 0.9%, 5-40 mL, IntraVENous, q12h sodium chloride 0.9%, 5-40 mL, IntraVENous, q12h sodium chloride 0.9%, 5-40 mL, IntraCATHeter, q8h stomahesive in petrolatum, , Topical, q8h [3] PRN medications: acetaminophen OR acetaminophen, ondansetron ODT OR ondansetron, polyethylene glycol (PEG) 3350, sodium chloride, sodium chloride, stomahesive in petrolatum [4] [5] No past medical history on file. Images from the original note were not included. Speech-Language Pathology SPEECH LANGUAGE PATHOLOGY [facility] Dysphagia Treatment Note Patient Name: Nancy Delacruz Evaluation Date: 06/15/2025 Date of : 1965 Admission Date: 06/11/2025 10:35 PM Age: 59 y.o. Room/Bed: [facility] A Subjective Patient alert and cooperative. Seen upright in bed. Answers all basic questions with clear, weak vocal quality. Follows all basic commands. Visitors at bedside - brother. Spoke with WES Miller who cleared pt for treatment. Current Diet: Dietary Orders (From admission, onward) Start Ordered 06/14/25 1443 Adult diet Easy to Chew Diet effective now Question: Diet type Answer: Easy to Chew 06/14/25 1442 06/14/25 1351 Supplement:Breakfast, PM Snack; Chocolate Ensure Plus High Protein Until discontinued Question Answer Comment Frequency Breakfast Frequency PM Snack Select supplement: Chocolate Ensure Plus High Protein 06/14/25 1350 Aspiration Precautions: - Upright positioning for all PO intake - Slow rate of intake - Small bites/sips - Supervision with PO Oxygen: Oxygen Therapy: Supplemental oxygen O2 Flow Rate (L/min): 3 L/min Pain: 0-10 pain scale: 10/10 Location: "abdomen from laxative" PPE Worn: gloves Objective & Assessment Dysphagia Treatment # of Activities: 1 Dysphagia Activity 1: Assess diet tolerance Patient consumed thin liquid water via cup edge with adequate oral containment and no overt s/s of aspiration.Vocal quality remained clear. Pt consumed purees with adequate oral bolus control, timely swallow onset per palpation, and complete oral clearance. Mastication with solid josse cracker broken into small piece was mildly prolonged but functional with complete oral clearance. Would consider trials of advanced textures next ST session. Plan & Recommendations Plan: Continue acute SMOKEHOUSE WORKER therapy per initial plan of care and established goals. Recommend Easy to chew solids and Thin liquids and meds whole in puree and the following precautions: - Upright positioning for all PO intake - Slow rate of intake - Small bites/sips - Supervision with PO D/C Recommendations: to be determine Education Education Given: swallowing strategies, diet recommendations Given To: patient and brother Response: verbalizes understanding Goals Patient Stated Goal: None at this time. Encounter Problems Encounter Problems (Active) Swallowing Patient will tolerate the least restrictive diet consistency to allow for safe consumption of daily meals (Progressing) Start: 06/13/25 Expected End: 06/27/25 Patient will demonstrate safe swallowing Intervention/techniques (Progressing) Start: 06/13/25 Expected End: 06/27/25 Patient will tolerate recommended food and liquid consistencies without clinical signs and symptoms of aspirations (Progressing) Start: 06/13/25 Expected End: 06/27/25 Encounter Problems (Resolved) Swallowing Patient will participate in instrumental assessment of swallowing as appropriate (Completed) Start: 06/12/25 Expected End: 06/15/25 Resolved: 06/13/25 Therapy Time SMOKEHOUSE WORKER Individual Minutes Time In: 1104 Time Out: 1115 Minutes: 11 REBA Stanley Hospitalist Progress Note 06/15/2025 Subjective: Admit Date: 06/11/2025 PCP: SABRINA DURAN Room#: [id number] A BRIEF HOSPITAL COURSE: PER PRIOR NOTES: 59 y.o. female with history of HTN, HLD, atrial fibrillation, developmental delay, stroke with Right hemiparesis who was transferred to [facility] from [facility] on 06/11/25 for vaginal bleeding concerning for endometrial cancer. Patient reportedly with extensive hospitalization at [facility] and initially admitted for AMS, anemia with Hb 3.6, and lactic acid 6.7. She was reportedly found to have extensive vaginal bleeding, required intubation and multiple units of pRBC transfusions. EGD (05/23/25) with non-bleeding ulcers. Found to have elevated CA 125: 87. Patient reportedly developed respiratory distress on 06/04 requiring BIPAP and was started on IV lasix with some improvement, but lasix discontinued due to worsening creatinine. [facility] ICU team at reviewed hospital course from [facility]SH and cleared patient for PCU. Patient transferred to [facility] under hospitalist service. Watch And Clock Maker And Repairer-Onc consulted/evaluated at [facility], and stated that patient would be candidate for therapeutic dilation and curettage vs definitive treatment and surgical staging with TLH, BSO, SNLS. Interval History: No events overnight, brother at bedside. Reiterated plan of care, all questions addressed at bedside. No major complaints at this time. Adult diet Easy to Chew 24HR INTAKE/OUTPUT: Intake/Output Summary (Last 24 hours) at 06/15/2025 0850 Last data filed at 06/15/2025 0846 Gross per 24 hour Intake 840 ml Output 1400 ml Net -560 ml Past Medical History: Medical History[1] LABS: CBC: Recent Labs 06/13/2543106/14/2523206/15/25611 WBC 7.6 8.2 7.8 RBC 3.42* 3.38* 3.51* HGB 7.8* 7.6* 7.9* HCT 27.2* 27.1* 28.0* MCV 79.5 80.2 79.8 RDW 27.0* 26.3* 26.4* PLT 466* 460* 514* BMP: Recent Labs 06/13/2543106/14/2523206/15/25611 NA 137 137 136 K 4.0 3.8 3.7 CL 105 104 103 CO2 28 27 26 BUN 30* 31* 29* CREATININE 1.16* 1.34* 1.06 GLUCOSE 92 87 80* CALCIUM 8.1* 7.9* 8.1* ANIONGAP 4 6 7 LIVER PROFILE: Recent Labs 06/13/2543106/14/2523206/15/25 0612 AST 28 26 28 ALT 15 14 16 BILITOT 0.4 0.4 0.4 ALKPHOS 81 81 83 PROT 6.1* 5.9* 6.1* PT/INR: No results for input(s): "PROTIME", "INR" in the last 72 hours. CARDIAC ENZYMES: No results for input(s): "TROPONINI" in the last 72 hours. Procalcitonin: No results found for: "PROCAL" COVID-19 PCR: No results for input(s): "COVID19" in the last 72 hours. Objective: Vitals: BP 120/83 (BP Location: Left arm, Patient Position: Lying) Pulse 94 Temp (!) 35.9 C (96.7 F) (Temporal) Resp 16 Wt 174 lb 6.1 oz (79.1 kg) SpO2 94% Pulse Ox: SpO2 Av % Min: 87 % Max: 96 % Supplemental O2: O2 Flow Rate (L/min): 3 L/min Physical Exam Vitals reviewed. Constitutional: General: She is not in acute distress. Appearance: She is not toxic-appearing. Cardiovascular: Rate and Rhythm: Normal rate. Pulmonary: Effort: Pulmonary effort is normal. No respiratory distress. Abdominal: General: There is no distension. Palpations: Abdomen is soft. Tenderness: There is no abdominal tenderness. Musculoskeletal: General: No deformity. Skin: Comments: Right side of neck with clean dry intact dressing from previous site of access. Neurological: Mental Status: She is alert. Psychiatric: Mood and Affect: Mood normal. Medications: Scheduled PRN Scheduled Meds[2] PRN Meds[3] Continuous Continuous Meds[4] Assessment Data: (LOW: 2x CAT1 or independent historian MOD: 3x CAT1 or 1x CAT3 EXTENSIVE: 3x CAT1 and 1x CAT3) Acute, acute on chronic, unstable/uncontrolled chronic problems/diagnoses: Vaginal bleeding with concern for endometrial cancer and elevated CA125 Acute blood loss anemia Lactic acidosis resolved AHRF RAMEZ Thrombocytosis Dysphagia status post MBBS 06/13 Stable chronic problems affecting care, new non-acute diagnoses: Medical History[5] Plan As a result of the above findings & factors, the following mgmt was pursued: Vaginal bleeding with concern for endometrial cancer Elevated CA125 - analytical chemist onc has been following - 06/18 minimally invasive hysterectomy, bilateral salpingo-oophorectomy, sentinel lymphadenectomy. - if not medically stable for major surgery, will plan on dilation and curettage and levonorgestrel intrauterine device placement. Acute hypoxic respiratory insufficiency/failure - New oxygen requirement 3 L nasal cannula - Unclear etiology of this - Will review chart for further illumination Acute blood loss anemia not requiring blood transfusion so far - Transfuse if H&H less than 7 Dysphagia status post MBSS 06/13 - No vocal cord penetration or airway aspiration does have small pharyngocele - am labs, replace lytes prn - PT/OT/CM/SW - delirium precautions: increase activity - DVT prophylaxis: encourage ambulation Complexity: Undiagnosed new problem with uncertain prognosis (MOD). Risk: Admission to hospital-level care was considered or occurred (HIGH). Consult to surgery for emergency major surgery, or major surgery with identified patient or procedural risk factors, was considered or occurred (HIGH). Advance Directive: Full Code Anticipated Discharge - Date - - Location - tbd - Pending the following -improvement of acute medical issue Total time spent (which include face to face and non face to face encounters) : 40 minutes Toxic drug monitoring/narrow therapeutic index drug monitoring : # Drug name : na # Route administered : NA # Method of monitoring : NA Extended Emergency Contact Information Primary Emergency Contact: Wayne Delacruz Mobile Relation: Brother Preferred language: Nigerien Secondary Emergency Contact: Johana Delacruz Mobile Relation: Mother Preferred language: Nigerien Comment: Please note that portions of the note for this encounter were entered using an speech recognition software and may contain errors related to that system including errors in grammar, punctuation, and spelling, as well as words and phrases that may be inappropriate. Best attempts were made to edit/proofread the information prior to note completion. Despite the review of information, some errors may remain. If there are questions related to the information contained within the note please contact the signing provider for clarification. Amy Laguerre MD Division of Hospitalist Medicine [facility] [1] No past medical history on file. [2] amLODIPine, 10 mg, Oral, Daily atorvastatin, 20 mg, Oral, Nightly carvedilol, 3.125 mg, Oral, BID WC chlorhexidine, , Topical, Daily hydrALAZINE, 10 mg, Oral, BID melatonin, 3 mg, Oral, Nightly sodium chloride 0.9%, 5-40 mL, IntraVENous, q12h sodium chloride 0.9%, 5-40 mL, IntraVENous, q12h sodium chloride 0.9%, 5-40 mL, IntraCATHeter, q8h stomahesive in petrolatum, , Topical, q8h [3] PRN medications: acetaminophen OR acetaminophen, ondansetron ODT OR ondansetron, polyethylene glycol (PEG) 3350, sodium chloride, sodium chloride, stomahesive in petrolatum [4] [5] No past medical history on file. Images from the original note were not included. [facility] Wound Care Progress Note Nancy Delacruz AGE: 59 y.o. GENDER: female : 1965 Subjective: HISTORY of PRESENT ILLNESS HPI Nancy Delacruz is a 59 y.o. female who presents for a wound care progress note. HPI: Per chart review, patient has been hospitalized for 21 days at [facility] inpatient on PCU. Pt initially presented with altered mental status and hemoglobin of 3.6 and lactic of 6.7. Pt was found to have extensive vaginal bleeding. Patient has been transferred from [facility] to [facility] for further evaluation and management of vaginal bleeding concerning for endometrial cancer. Wound Care consulted for " Skin Tear/Pressure Injury; L buttock, Right forearm/elbow". Patient resting in bed at time of visit with family at bedside. Patient agreeable with assessment of buttocks at time of visit. PAST MEDICAL HISTORY Medical History[1] PAST SURGICAL HISTORY Surgical History[2] FAMILY HISTORY Family History[3] SOCIAL HISTORY Social History[4] ALLERGIES Allergies[5] MEDICATIONS Medications Ordered Prior to Encounter[6] REVIEW OF SYSTEMS Pertinent items are noted in HPI. Objective: BP 120/83 (BP Location: Left arm, Patient Position: Lying) Pulse 94 Temp (!) 35.9 C (96.7 F) (Temporal) Resp 16 Wt 79.1 kg (174 lb 6.1 oz) SpO2 94% PHYSICAL EXAM General appearance: in no apparent distress, alert, oriented times 3, and cooperative Skin: warm and dry Pulmonary: Normal effort, no respiratory distress, no cyanosis Right forearm: 1x2.5x0.2cm. [place] tissue and slough noted to wound bed. Scant serosang drainage present. Evon-wound intact and fragile. C/D/I Right elbow: Scattered scabbing noted. No open wounds. No drainage present. Evon-wound intact and fragile. C/D/I 06/13/25 Evon-rectal region: Improving Ecchymosis noted, no open areas noted. Sacrum/Buttocks: No open wounds, blanchable discoloration. 06/15/25 LABS CBC: Lab Results Component Value Date WBC 7.8 06/15/2025 HGB 7.9 (L) 06/15/2025 HCT 28.0 (L) 06/15/2025 MCV 79.8 06/15/2025 PLT 514 (H) 06/15/2025 BMP: Lab Results Component Value Date NA 136 06/15/2025 K 3.7 06/15/2025 CL 103 06/15/2025 CO2 26 06/15/2025 BUN 29 (H) 06/15/2025 CREATININE 1.06 06/15/2025 PT/INR: No results found for: "PROTIME", INR Prealbumin: No results found for: PREALBUMIN Albumin:No components found for: LABALBU Sed Rate:No results found for: SEDRATE Micro: No components found for: BC Assessment/Plan: Nursing staff to perform dressing change: Right elbow: Abrasion - C/D/I - Leave KT - Region does not require wound care follow up Right forearm: Skin Tear - C/D/I - Cleanse with NS. Apply adaptic to wound bed. Cover with foam dressing. Change daily and PRN. Bilateral Buttocks: Prevention -Follow hospital protocol for wound prevention Nutritional support Wound Care to follow Recommend to follow up at [facility] wound care center after hospital discharge. Any questions or concerns please secure chat "ACH wound/ostomy". Thank you for the consult! I personally obtained the zepeda and critical portions of the history and physical exam. I reviewed the labs, imaging studies, and electronic medical record. I reviewed the chart documentation and discussed the patient with treatment team members. I have edited the note to reflect my clinical findings and my assessment and plan. Please note, the time of this note does not reflect the time I saw this patient today, but the time of this documentaton. Portions of this note including HPI, ROS, impression/plan, and examination may have been copied forward from admission to today as to provide important historical information essential in contributing to medical decision making. Documentation has been reviewed and edited as necessary to support clinical decision making for today's visit and to reflect my own independent evaluation of this patient. Decision making for today's visit and to reflect my own independent evaluation of this patient. [1] No past medical history on file. [2] No past surgical history on file. [3] No family history on file. [4] [5] Not on File [6] No current facility-administered medications on file prior to encounter. Current Outpatient Medications on File Prior to Encounter Medication Sig Dispense Refill amLODIPine (Norvasc) 10 MG tablet 10 mg. carvedilol (Coreg) 3.125 MG tablet 3.125 mg. hydrALAZINE (Apresoline) 100 MG tablet 100 mg. simvastatin (Zocor) 20 MG tablet 20 mg. Cosigned by Elmer Pacheco DO at 06/19/2025 12:01 PM EDT Images from the original note were not included. Speech-Language Pathology SPEECH LANGUAGE PATHOLOGY [facility] Dysphagia Treatment Note Patient Name: Nancy Delacruz Evaluation Date: 06/14/2025 Date of : 1965 Admission Date: 06/11/2025 10:35 PM Age: 59 y.o. Room/Bed: [facility] A Subjective Patient alert and cooperative. Seen upright in bed. Answers all basic questions with clear, strong vocal quality. Follows all basic commands. Family at bedside. Current Diet: Dietary Orders (From admission, onward) Start Ordered 06/14/25 1351 Supplement:Breakfast, PM Snack; Chocolate Ensure Plus High Protein Until discontinued Question Answer Comment Frequency Breakfast Frequency PM Snack Select supplement: Chocolate Ensure Plus High Protein 06/14/25 1350 06/14/25 1347 Adult diet Dysphagia - Soft and Bite Sized Diet effective now Question: Diet type Answer: Dysphagia - Soft and Bite Sized 06/14/25 1346 Aspiration Precautions: - Upright positioning for all PO intake - Slow rate of intake - Small bites/sips - Supervision with PO Oxygen: Oxygen Therapy: Supplemental oxygen O2 Flow Rate (L/min): 3 L/min Pain: Pt denies any current pain. PPE Worn: gloves Objective & Assessment Dysphagia Treatment # of Activities: 1 Dysphagia Activity 1: Assess diet tolerance Patient accepted trials of thin liquids via straw, puree solids, soft and bite size solids, and easy to chew solids. Trials were met with clinically adequate oral bolus control, timely swallow onset per palpation, and complete oral clearance. Mastication was more timely this date. There were no overt s/sx of aspiration or penetration with any trials this date. Patient reports good tolerance of recommended diet. Patient was on mildly thick liquids at time of treatment, however appears diet was recently amended. Plan & Recommendations Plan: Continue acute SMOKEHOUSE WORKER therapy per initial plan of care and established goals. Recommend Easy to chew solids and Thin liquids and meds whole in puree and the following precautions: - Upright positioning for all PO intake - Slow rate of intake - Small bites/sips - Supervision with PO D/C Recommendations: to be determined Education Education Given: safety, swallowing strategies, diet recommendations Given To: patient Response: verbalizes understanding Goals Patient Stated Goal: None at this time. Encounter Problems Encounter Problems (Active) Swallowing Patient will tolerate the least restrictive diet consistency to allow for safe consumption of daily meals (Progressing) Start: 06/13/25 Expected End: 06/27/25 Patient will demonstrate safe swallowing Intervention/techniques (Progressing) Start: 06/13/25 Expected End: 06/27/25 Patient will tolerate recommended food and liquid consistencies without clinical signs and symptoms of aspirations (Progressing) Start: 06/13/25 Expected End: 06/27/25 Encounter Problems (Resolved) Swallowing Patient will participate in instrumental assessment of swallowing as appropriate (Completed) Start: 06/12/25 Expected End: 06/15/25 Resolved: 06/13/25 Therapy Time SMOKEHOUSE WORKER Individual Minutes Time In: 1330 Time Out: 1340 Minutes: 10 MARY KATE MataSMOKEHOUSE WORKER Images from the original note were not included. PHYSICAL THERAPY [facility] Treatment Note Name/MRN: Nancy Delacruz ([id number]) Date of : 1965 Age: 59 y.o. Room/Bed: [facility]/W5-539 A Discharge Recommendation: [facility] Facility Equipment Needed: No (tbd) Prior Level of Function Prior Level of ADL Function: Required Assist Prior Level of Mobility: Required Assist; Device: use of family for support Prior Level of Transfers: Required Assist Assessment Pt tolerated treatment session well and demonstrates good effort during session. Pt performed bed mobility with Mod assist and stand pivot transfer with Mod assist x2. Pt still remains below baseline level of mobility. Recommend discharge to SNF to improve balance, strength, activity tolerance, and mobility prior to return home. Subjective Pt is supine in bed upon arrival and is agreeable to PT treatment session. Pain: Pt denies any current pain. Medical Precautions: No active isolations Proper PPE donned/doffed in accordance with facility standards. Fall Risk: Ledesma Fall Risk Score: 50 (High Risk) Precautions/Restrictions: Lines/Drains/Airways: external catheter, tele, O2 Skin care precautions Overall Cognitive Status: Exceptions - Arousal/alertness: appropriate responses to stimuli - Following commands: follows one step commands consistently and follows one step commands with increased time - Initiation: requires cues for some - Sequencing: requires cues for some Family/Caregiver Present: Pt's brother present in room at start of session. Objective Bed Mobility Supine to sit: Mod Assist Mod assist to seated scoot to EOB Cues for sequencing when performing bed mobility Transfers/Mobility Sit to stand: Mod Assist, x2 Person Assist Stand to sit: Mod Assist, x2 Person Assist Stand pivot: Mod Assist, x2 Person Assist Sit to stand x2 reps from EOB and x1 rep from chair and stand pivot transfer from EOB to chair with pt holding onto therapist and RN's arms with physical assistance provided at gait belt. Cues for sequencing. R knee blocked during transfers. Balance During Session: Posture: fair Sitting - Static: SBA Sitting - Dynamic: SBA Standing - Static: Mod Assist Pt sat EOB for ~12 minutes. Standing tolerance ~30 seconds on this date. Cues for increased trunk and cervical extension to improve balance and posture. Exercises Pt performed BLE exercises sitting EOB to increase strength and activity tolerance needed to improve performance with all mobility. Verbal and tactile cues for proper form. Hip flexion: 1x15 reps Heel/toe raises: 1x15 reps Hip abduction: 1x15 reps Hip adduction pillow squeezes: 1x15 reps LAQs: 1x15 reps Plan Continue acute PT per plan of care. Safety/Education Safety Safety Devices in place: All fall risk precautions in place, call light within reach, left in chair, chair alarm in place, gait belt, and patient at risk for falls RN Ronnie notified of pt's status. Educated pt on use of call light and to have staff assistance with mobility. Pt verbalized understanding. Restraints: No Education Education Given To: patient Education Provided: PT Role, Home Exercise Program, Transfer Training, and Benefits of Increasing Activity Education Method: Verbal Barriers to Learning: None Education Outcome: Verbalized Understanding Outcome Measures AM-PAC AM-PAC Inpatient Mobility Raw Score (No Stairs) : 9 JH-HLM JH-HLM Scale: Transferred to chair/commode Goals Patient Stated Goal: to go home Encounter Problems Encounter Problems (Active) Balance Patient will maintain dynamic standing balance for 5 minutes with min assist in order to demonstrate decreased risk of falling. (Progressing) Start: 06/13/25 Expected End: 07/11/25 Mobility Patient will ambulate 15 feet with min assist and least restrictive device in order to improve safety and independence with mobility. (Not Addressed) Start: 06/13/25 Expected End: 07/11/25 Transfers Patient will perform bed mobility with SBA in order to improve independence and prepare for out of bed mobility. (Progressing) Start: 06/13/25 Expected End: 07/11/25 Patient will complete functional transfer with least restrictive device with min assist in order to prepare for ambulation. (Progressing) Start: 06/13/25 Expected End: 07/11/25 Therapy Time Individual Co-treatment Time In 1011 Time Out 1040 Minutes 29 Timed Code Treatment Minutes: 29 Minutes (1 unit TA, 1 unit TP) Hermann Michelle PT Nutrition Assessment Type and Reason for Visit: Initial (DTR referral for pressure injury with wound care following") Nutrition Recommendations/Plan: Diet modified following MBSS yesterday to thin liquids, continues soft and bite sized textures Supplement(s): added chocolate ensure plus HP 1x/day (provides 350 kcals, 20 grams protein, 8 oz per serving) per MNT protocol Will continue to monitor labs, meds, po intakes and/or enteral nutrition tolerance, skin integrity, wt trends, and overall nutrition status - RD to follow weekly Malnutrition Assessment: Malnutrition Status: At risk for malnutrition (Comment) Context: Acute Illness Findings of the 6 clinical characteristics of malnutrition: Energy Intake: No significant decrease in energy intake Weight Loss: No significant weight loss Body Fat Loss: No significant body fat loss Muscle Mass Loss: No significant muscle mass loss Fluid Accumulation: Mild Extremities Rn Orthopedic Strength: Not Performed 06/14/25 Interval History: No overnight issues. Intermittently tachycardic, remains on 3 L NC. Denies fever, chills, chest pain, SOB, N/V. Denies abdominal pain, vaginal bleeding. Patient's brother other at bedside assisted in answering questions, reports gradually worsening vaginal bleeding over the course of months. Family history positive for hysterectomy in patient's mother but they do not know why. Patient lives at home with her parents and brother. Nutrition Assessment: LOS# 3. 59F w/ PMHx: stroke with residual R sided hemiparasis, developmental delay who presented to [facility] on 06/11 for vaginal bleeding. She had initially presented with altered mental status in the setting of hemoglobin of 3.6 s/p 4 units PRBC and lactic acid 6.7. EGD showed nonbleeding ulcers, CA-125 was elevated at 87. She subsequently developed respiratory distress on 06/04 requiring NIV and was started on diuresis which initially showed improvement, however was later discontinued due to mild creatinine increase from 1.5-1.75. After initial stabilization of medical conditions, she was transferred to [facility] for higher level care. In [facility] ED, initial VS: Blood pressure 131/99, HR 65, RR 17, afebrile, and on 3 L NC. Initial labs significant for hemoglobin 7.6, platelets 450, creatinine 1.32 in the setting of eGFR 46, BUN 41. Chest x-ray with coarse bilateral infiltrates likely secondary to volume overload. She was admitted for further evaluation and management. CLOTHING MAN was consulted (per prior notes, TVUS 06/01 with irregular thickened endometrium with a 21 mm stripe, EMB 06/06 with atypical hyperplasia and concern for focal endometrial adenocarcinoma), plan for OR 06/18. S/p MBSS 06/13, SMOKEHOUSE WORKER rec'd soft and bite sized diet w/ thin liquids. Waiting for diet to be modified as she remains on NTL. Secure chat sent to primary regarding same. No height in chart. Visually appears ~ 5'2", pt's brother at bedside is not sure, however feels this is likely accurate. Wound care evaluated and note prevention area, skin tear, and abrasion only - not pressure injury. Will follow given dysphagia and upcoming surgery - c/f cancer - possible D&C or hysterectomy. Pt's brother endorses a stable appetite at baseline that includes thickened liquids. Also drinks ONS of ensure (seems to like chocolate and strawberry). Pt at bedside not conversational. Wt confirmation taken via bed scale. Discussed initiation of ONS for nutrition optimization prior to OR. Estimated Daily Nutrient Needs: Energy Requirements Based On: Kcal/kg Weight Used for Energy Requirements: Other (Comment) (estimated IBW) Weight for Energy Calculation (kg): 50 kg Total Energy Requirements (kcals/day): 5325-3089 (25-30 kcals/kg) Weight Used for Protein Requirements: Other (Comment) (estimated IBW) Weight in Kg Used for Protein Requirements: 50 kg Estimated Total Protein (g/day): 55-65 (1.1-1.3 g/kg) Estimated Daily Total Fluid (ml/day): 1 ml/kcal or per MD Nutrition Related Findings: Wound Type: (per wound care: 1.) Right elbow: Abrasion; 2.) Right forearm: Skin Tear; 3.) Evon-rectal region: PREVENTION); Jose Scale Score: 13 Isolation Status: No active isolations Food Allergies: NKFA Teeth: Missing teeth Swallow: Difficulty swallowing Room Service: Assist Edema: BLE Edema: Mild pitting, slight indentation Gastrointestinal (WDL): Exceptions to WDL Last BM Date: 06/14/25 GI symptoms: Dysphagia Nutrition History: Needs tray setup help, Needs assistance with feeding, and Lives with parents and brother at home Level of Consciousness: Alert; Orientation Level: Disoriented to person, Oriented to time, Oriented/disoriented at times Code Status, Vital Signs, Oxygen Needs, I/Os: Code Status: Full Code Vital Signs: Temp: 37.3 C (99.2 F); Heart Rate: 98; Resp: 16; BP: 92/58; Temp: 37.3 C (99.2 F); MAP (mmHg): 69 Oxygen Therapy: Supplemental oxygen; O2 Flow Rate (L/min): 3 L/min; SpO2: 93 % Net IO Since Admission: -830 mL [06/14/25 1350] Intake/Output Summary (Last 24 hours) at 06/14/2025 1350 Last data filed at 06/14/2025 1041 Gross per 24 hour Intake 1080 ml Output 800 ml Net 280 ml Labs/Meds Reviewed: Scheduled Meds[1] Continuous Meds[2] BMP: Recent Labs 06/12/25 0356 06/13/252 06/14/25 023 NA 140 137 137 K 3.9 4.0 3.8 CL 103 105 104 CO2 29 28 27 BUN 41* 30* 31* CREATININE 1.32* 1.16* 1.34* GLUCOSE 95 92 87 CALCIUM 8.0* 8.1* 7.9* MG 1.9 -- -- PHOS 3.5 -- -- HEPATIC: Recent Labs 06/12/25 0356 06/13/2543106/14/25 023 AST 31 28 26 ALT 20 15 14 BILITOT 0.5 0.4 0.4 ALKPHOS 78 81 81 CBC: Recent Labs 06/12/25 0840 06/13/252 06/14/25 0233 WBC 7.1 7.6 8.2 HGB 7.9* 7.8* 7.6* HCT 27.3* 27.2* 27.1* MCV 78.2 79.5 80.2 PLT 453* 466* 460* Lab Results Component Value Date TSH 2.80 06/12/2025 Current Nutrition Therapies: Adult diet Dysphagia - Soft and Bite Sized Current Oral Intake Average Meal Intake: Unable to assess (brother reports baseline stable appetite) Average Supplements Intake: None Ordered (drinks ensure at home at baseline) Anthropometric Measures: Height: (no height in EMR, estimated ~ 5'2" per visual observations) Current Body Weight: 78.2 kg (172 lb 6.4 oz) Weight Source: Bed Scale Weight Adjustment For: No Adjustment Nutrition Diagnosis: Swallowing difficulty related to acute injury/trauma (prior CVA resulting in Rt Hemiparesis) as evidenced by swallow study results Nutrition Interventions: Food and/or Nutrient Delivery: Start Oral Nutrition Supplement Nutrition Education/Counseling: No recommendation at this time Coordination of Nutrition Care: Continue to monitor while inpatient, Speech Therapy Plan of Care discussed with: Nurse, Attending, and Brother Goals: Goals: Meet at least 75% of estimated needs Nutrition Monitoring and Evaluation: Behavioral-Environmental Outcomes: None Identified Food/Nutrient Intake Outcomes: Food and Nutrient Intake, Supplement Intake, Diet Advancement/Tolerance Physical Signs/Symptoms Outcomes: Biochemical Data, Weight, Skin, Chewing or Swallowing Discharge Planning: Too soon to determine Anca Logan MS, RD, LD Contact: or [employer] Chat (dial [phone] from hospital phone) [1] amLODIPine, 10 mg, Oral, Daily atorvastatin, 20 mg, Oral, Nightly carvedilol, 3.125 mg, Oral, BID WC chlorhexidine, , Topical, Daily hydrALAZINE, 10 mg, Oral, BID melatonin, 3 mg, Oral, Nightly sodium chloride 0.9%, 5-40 mL, IntraVENous, q12h sodium chloride 0.9%, 5-40 mL, IntraVENous, q12h sodium chloride 0.9%, 5-40 mL, IntraCATHeter, q8h stomahesive in petrolatum, , Topical, q8h [2] Hospitalist Progress Note 06/14/2025 Subjective: Admit Date: 06/11/2025 PCP: SABRINA DURAN Room#: [id number] A BRIEF HOSPITAL COURSE: Nancy Delacruz is a 59 y.o. female with history of HTN, HLD, atrial fibrillation, developmental delay, stroke with Right hemiparesis who was transferred to [facility] from OSH on 06/11/25 for vaginal bleeding concerning for endometrial cancer. Patient reportedly with extensive hospitalization at [facility] and initially admitted for AMS, anemia with Hb 3.6, and lactic acid 6.7. She was reportedly found to have extensive vaginal bleeding, required intubation and multiple units of pRBC transfusions. EGD (05/23/25) with non-bleeding ulcers. Found to have elevated CA 125: 87. Patient reportedly developed respiratory distress on 06/04 requiring BIPAP and was started on IV lasix with some improvement, but lasix discontinued due to worsening creatinine. [facility] ICU team at reviewed hospital course from OSH and cleared patient for PCU. Patient transferred to [facility] under hospitalist service. Watch And Clock Maker And Repairer-Onc consulted/evaluated at [facility], and stated that patient would be candidate for therapeutic dilation and curettage vs definitive treatment and surgical staging with TLH, BSO, SNLS. Interval History: No overnight issues documented. Patient sitting up in chair, Aox2 (person, place). States that she is doing okay today and denies any further issues with vaginal bleeding. Currently denies fever, chills, chest pain, SOB. Case and plan discussed with patient and TCC. Questions answered. Adult diet Dysphagia - Soft and Bite Sized; Mildly Thick (Rudd) 24HR INTAKE/OUTPUT: Intake/Output Summary (Last 24 hours) at 06/14/2025 0951 Last data filed at 06/14/2025 0628 Gross per 24 hour Intake 720 ml Output 800 ml Net -80 ml Past Medical History: Medical History[1] LABS: CBC: Recent Labs 06/12/2583906/13/2543106/14/25232 WBC 7.1 7.6 8.2 RBC 3.49* 3.42* 3.38* HGB 7.9* 7.8* 7.6* HCT 27.3* 27.2* 27.1* MCV 78.2 79.5 80.2 RDW 26.7* 27.0* 26.3* PLT 453* 466* 460* BMP: Recent Labs 06/12/2535506/13/2543106/14/25 023 NA 140 137 137 K 3.9 4.0 3.8 CL 103 105 104 CO2 29 28 27 BUN 41* 30* 31* CREATININE 1.32* 1.16* 1.34* GLUCOSE 95 92 87 CALCIUM 8.0* 8.1* 7.9* ANIONGAP 8 4 6 LIVER PROFILE: Recent Labs 06/12/2535506/13/252 06/14/25 0233 AST 31 28 26 ALT 20 15 14 BILITOT 0.5 0.4 0.4 ALKPHOS 78 81 81 PROT 6.2* 6.1* 5.9* PT/INR: Recent Labs 06/12/25355 PROTIME 11.0 INR 1.0 CARDIAC ENZYMES: No results for input(s): "TROPONINI" in the last 72 hours. Procalcitonin: No results found for: "PROCAL" COVID-19 PCR: No results for input(s): "COVID19" in the last 72 hours. Objective: Vitals: BP 131/89 (BP Location: Left arm, Patient Position: Sitting) Pulse 119 Temp 36.5 C (97.7 F) (Temporal) Resp 16 Wt 172 lb 8 oz (78.2 kg) SpO2 93% Pulse Ox: SpO2 Av.7 % Min: 91 % Max: 95 % Supplemental O2: O2 Flow Rate (L/min): 3 L/min Physical Exam Constitutional: General: She is not in acute distress. Appearance: She is not toxic-appearing. HENT: Nose: Comments: On 3 L NC Cardiovascular: Rate and Rhythm: Normal rate and regular rhythm. Pulmonary: Effort: Pulmonary effort is normal. No respiratory distress. Abdominal: Palpations: Abdomen is soft. Tenderness: There is no abdominal tenderness. Skin: General: Skin is warm and dry. Neurological: Mental Status: She is alert. She is disoriented. Motor: Weakness present. Comments: Aox2 (person, place) Medications: Scheduled PRN Scheduled Meds[2] PRN Meds[3] Continuous Continuous Meds[4] Assessment Acute, acute on chronic, unstable/uncontrolled chronic problems/diagnoses: # Vaginal bleeding, concern for endometrial cancer - elevated CA 125: 87. # Acute blood loss anemia # Lactic acidosis, resolved # Acute hypoxic respiratory failure # RAMEZ # Thrombocytosis # Dysphagia - MBSS (06/13): no vocal cord penetration or airway aspiration, but small pharyngocele. Stable chronic problems affecting care, new non-acute diagnoses: # HTN - amlodipine 10 mg daily, coreg 3.125 mg BID, hydralazine 10 mg BID # HLD - statin # Hx of Atrial fibrillation # Developmental delay # Hx of stroke with Right hemiparesis Plan As a result of the above findings & factors, the following mgmt was pursued: - On 3 L NC. Supplemental O2 as needed. Monitor VS - Watch And Clock Maker And Repairer Onc following. Stated discussed standard of care with patient and her family, which would be minimally invasive hysterectomy, bilateral salpingo-oophorectomy, sentinel lymphadenectomy. Noted will plan to proceed with surgery as long as patient is cleared medically. Stated that if not medically stable for major surgery, will plan on dilation and curettage and levonorgestrel intrauterine device placement. Recs noted. Discussed with Watch And Clock Maker And Repairer Onc team on 06/13, who noted tentatively planning for surgery on Wednesday06/18/25. -Patient has remained medically stable on GMF and will likely by stable for OR with Watch And Clock Maker And Repairer Onc on 06/18/25. - Monitor H&H and transfuse PRN - SMOKEHOUSE WORKER evaluated. Advised easy to chew. Recs noted. - Continue supportive care - Continue chronic medications as able - SW following - TCC following for dispo planning. Discussed with TCC today. - am labs, replace lytes prn - delirium precautions: schedule melatonin at bedtime and limit nighttime disturbances - DVT prophylaxis: SCDs Advance Directive: Full Code Anticipated Discharge - Date - TBD - Location - TBD - Pending the following - clinical course, supply chain consultant recs, dispo planning Extended Emergency Contact Information Primary Emergency Contact: Wayne Delacruz Mobile Relation: Brother Preferred language: Nigerien Secondary Emergency Contact: Johana Delacruz Mobile Relation: Mother Preferred language: Nigerien Liban Franklin MD Division of Hospitalist Medicine [facility] [1] No past medical history on file. [2] amLODIPine, 10 mg, Oral, Daily atorvastatin, 20 mg, Oral, Nightly carvedilol, 3.125 mg, Oral, BID WC chlorhexidine, , Topical, Daily hydrALAZINE, 10 mg, Oral, BID melatonin, 3 mg, Oral, Nightly sodium chloride 0.9%, 5-40 mL, IntraVENous, q12h sodium chloride 0.9%, 5-40 mL, IntraVENous, q12h sodium chloride 0.9%, 5-40 mL, IntraCATHeter, q8h stomahesive in petrolatum, , Topical, q8h [3] PRN medications: acetaminophen OR acetaminophen, ondansetron ODT OR ondansetron, polyethylene glycol (PEG) 3350, sodium chloride, sodium chloride, sodium chloride 0.9%, sodium chloride 0.9%, sodium chloride 0.9%, stomahesive in petrolatum [4] Nutrition rescreen completed. Patient referred to the Dietitian due to a pressure injury with wound care following. [facility] Hospitalist Progress Note 06/13/2025 Subjective: Admit Date: 06/11/2025 PCP: SABRINA DURAN Room#: [id number] A BRIEF HOSPITAL COURSE: Patient is a 59 y.o. female with history of stroke with residual R sided hemiparasis, developmental delay who presented to [facility] on 06/11 for vaginal bleeding. She had initially presented with altered mental status in the setting of hemoglobin of 3.6 s/p 4 units PRBC and lactic acid 6.7. EGD showed nonbleeding ulcers, CA-125 was elevated at 87. She subsequently developed respiratory distress on 06/04 requiring NIV and was started on diuresis which initially showed improvement, however was later discontinued due to mild creatinine increase from 1.5-1.75. After initial stabilization of medical conditions, she was transferred to [facility] for higher level care. In [facility] ED, initial VS: Blood pressure 131/99, HR 65, RR 17, afebrile, and on 3 L NC. Initial labs significant for hemoglobin 7.6, platelets 450, creatinine 1.32 in the setting of eGFR 46, BUN 41. Chest x-ray with coarse bilateral infiltrates likely secondary to volume overload. She was admitted for further evaluation and management. CLOTHING MAN was consulted (per prior notes, TVUS 06/01 with irregular thickened endometrium with a 21 mm stripe, EMB 06/06 with atypical hyperplasia and concern for focal endometrial adenocarcinoma), plan for OR 06/18. Interval History: No overnight issues. Intermittently tachycardic, remains on 3 L NC. Denies fever, chills, chest pain, SOB, N/V. Denies abdominal pain, vaginal bleeding. Patient's brother other at bedside assisted in answering questions, reports gradually worsening vaginal bleeding over the course of months. Family history positive for hysterectomy in patient's mother but they do not know why. Patient lives at home with her parents and brother. Case and plan discussed with patient and bedside nurse. Questions answered. Adult diet Dysphagia - Soft and Bite Sized; Mildly Thick (Rudd) 24HR INTAKE/OUTPUT: Intake/Output Summary (Last 24 hours) at 06/13/2025 1013 Last data filed at 06/13/2025 0637 Gross per 24 hour Intake 240 ml Output 1350 ml Net -1110 ml Past Medical History: Medical History[1] LABS: CBC: Recent Labs 06/12/25 0356 06/12/25 0840 06/13/25 0432 WBC 7.1 7.1 7.6 RBC 3.29* 3.49* 3.42* HGB 7.6* 7.9* 7.8* HCT 26.1* 27.3* 27.2* MCV 79.3 78.2 79.5 RDW 26.9* 26.7* 27.0* PLT 450* 453* 466* BMP: Recent Labs 06/12/25 0356 06/13/25 0432 NA 140 137 K 3.9 4.0 CL 103 105 CO2 29 28 BUN 41* 30* CREATININE 1.32* 1.16* GLUCOSE 95 92 CALCIUM 8.0* 8.1* ANIONGAP 8 4 LIVER PROFILE: Recent Labs 06/12/25 0356 06/13/25 0432 AST 31 28 ALT 20 15 BILITOT 0.5 0.4 ALKPHOS 78 81 PROT 6.2* 6.1* PT/INR: Recent Labs 06/12/25355 PROTIME 11.0 INR 1.0 CARDIAC ENZYMES: No results for input(s): "TROPONINI" in the last 72 hours. Procalcitonin: No results found for: "PROCAL" COVID-19 PCR: No results for input(s): "COVID19" in the last 72 hours. Objective: Vitals: BP 136/87 Pulse 107 Temp 36.4 C (97.5 F) (Temporal) Resp 20 Wt 165 lb (74.8 kg) SpO2 90% Pulse Ox: SpO2 Av.3 % Min: 90 % Max: 96 % Supplemental O2: O2 Flow Rate (L/min): 3 L/min Physical Exam Constitutional: Appearance: She is obese. HENT: Head: Normocephalic and atraumatic. Nose: Nose normal. Mouth/Throat: Mouth: Mucous membranes are moist. Pharynx: Oropharynx is clear. Eyes: Extraocular Movements: Extraocular movements intact. Cardiovascular: Rate and Rhythm: Normal rate and regular rhythm. Pulses: Normal pulses. Heart sounds: Normal heart sounds. Pulmonary: Effort: Pulmonary effort is normal. No respiratory distress. Breath sounds: Normal breath sounds. No wheezing. Abdominal: General: Abdomen is flat. Bowel sounds are normal. There is no distension. Palpations: Abdomen is soft. Tenderness: There is no abdominal tenderness. Musculoskeletal: Cervical back: Normal range of motion. Right lower leg: No edema. Left lower leg: No edema. Skin: General: Skin is warm. Capillary Refill: Capillary refill takes less than 2 seconds. Findings: No lesion. Neurological: Mental Status: She is alert and oriented to person, place, and time. Comments: Residual R sided hemiparesis Medications: Scheduled PRN Scheduled Meds[2] PRN Meds[3] Continuous Continuous Meds[4] Assessment Acute, acute on chronic, unstable/uncontrolled chronic problems/diagnoses: Suspected Endometrial Cancer Anemia, unknown baseline Volume Overload / Respiratory Distress, improved Volume Overload / Respiratory Distress, improving Stable chronic problems affecting care, new non-acute diagnoses: Neurologic History of Stroke with Residual Right Hemiparesis Developmental Delay / Limited Decision-Making Capacity HTN Sleep Plan As a result of the above findings & factors, the following mgmt was pursued: Suspected Endometrial Cancer -CA-125 elevated (87), TVUS with 21 mm irregular endometrial stripe, EMB showing atypical hyperplasia concerning for focal adenocarcinoma -CLOTHING MAN consulted; surgery scheduled for 06/18 -Ensure medical optimization prior to OR Anemia, unknown baseline -Hb stable -Daily CBC, transfuse for Hb <7 -Blood consent on file Volume Overload / Respiratory Distress -Initially required NIV, on 3L NC currently, oxygenating well, wean as able -CXR: coarse bilateral infiltrates likely secondary to volume overload -Diuresed with improvement, but diuresis discontinued -Consider cautious diuresis if respiratory symptoms recur -Repeat CXR if clinical status changes Acute Kidney Injury on CKD (baseline Cr unknown) -Cr improved from 1.75 to 1.16 -Likely pre-renal from diuresis; now improving -Monitor renal function daily -Avoid nephrotoxins Neurologic History of Stroke with Residual Right Hemiparesis -Baseline known to have developmental delay and R-sided weakness -No acute neurologic findings noted on this admission -Maintain fall precautions -PT/OT as needed -SMOKEHOUSE WORKER eval with dysphagia diet Developmental Delay / Limited Decision-Making Capacity -POA identified and Obgyn team in communication with POA prior to surgery HTN -Continue home amlodipine, coreg, hydral, hold if hypotensive Sleep -Scheduled melatonin nightly - Continue chronic medications as able - PT/OT - TCC following for dispo planning. Discussed with TCC today. - am labs, replace lytes prn - delirium precautions: increase activity and limit nighttime disturbances - DVT prophylaxis: enoxaparin Advance Directive: Full Code Anticipated Discharge - Date - 06/15 - Location - Home - Pending the following - OR Toxic drug monitoring/narrow therapeutic index drug monitoring : # Drug name : n/a # Route administered : n/a # Method of monitoring : n/a Extended Emergency Contact Information Primary Emergency Contact: Wayne Delacruz Mobile Relation: Brother Preferred language: Nigerien Secondary Emergency Contact: Johana Delacruz Mobile Relation: Mother Preferred language: Nigerien Puneet Terry DO Division of Hospitalist Medicine [facility] [1] No past medical history on file. [2] amLODIPine, 10 mg, Oral, Daily atorvastatin, 20 mg, Oral, Nightly carvedilol, 3.125 mg, Oral, BID WC chlorhexidine, , Topical, Daily hydrALAZINE, 10 mg, Oral, BID melatonin, 3 mg, Oral, Nightly sodium chloride 0.9%, 5-40 mL, IntraVENous, q12h sodium chloride 0.9%, 5-40 mL, IntraVENous, q12h sodium chloride 0.9%, 5-40 mL, IntraCATHeter, q8h stomahesive in petrolatum, , Topical, q8h [3] PRN medications: acetaminophen OR acetaminophen, ondansetron ODT OR ondansetron, polyethylene glycol (PEG) 3350, sodium chloride, sodium chloride, sodium chloride 0.9%, sodium chloride 0.9%, sodium chloride 0.9%, stomahesive in petrolatum [4] Cosigned by Liban Franklin MD at 06/13/2025 4:22 PM EDT Associated attestation - Liban Franklin MD - 06/13/2025 4:22 PM EDT I have evaluated the patient and reviewed the case with the Resident. I agree with the current plan of care including the workup, evaluation, management, and diagnosis. Care plan has been discussed. The documentation below has been reviewed and edited as needed to reflect the findings of my evaluation. Greater than 51% of the 15 minute face to face encounter was spent discussing/counseling the patient regarding the care plan for this patient. The patient was seen and examined independently and relevant data reviewed by myself. A full chart review was performed. S: No overnight issues documented. Brother present at bedside today. Patient sitting in bed, Aox3. States that she is doing okay today and denies any further issues with vaginal bleeding. Currently denies fever, chills, chest pain, SOB. Case and plan discussed with patient, her brother, Watch And Clock Maker And Repairer Onc team, and TCC. Questions answered. O: BP 106/60 (BP Location: Left arm, Patient Position: Lying) Pulse 114 Temp 36.6 C (97.8 F) (Temporal) Resp 18 Wt 165 lb (74.8 kg) SpO2 95% Patient Aox3, in no acute distress, on 3 L NC. Tachycardic. Pulmonary effort normal. No respiratory distress. Abdomen soft and non-tender. (+) Chronic Right-sided weakness. Brief Assessment: # Vaginal bleeding, concern for endometrial cancer - elevated CA 125: 87. # Acute blood loss anemia # Lactic acidosis, resolved # Acute hypoxic respiratory failure # RAMEZ - improving # Thrombocytosis # Dysphagia - MBSS (06/13): no vocal cord penetration or airway aspiration, but small pharyngocele. # HTN - amlodipine 10 mg daily, coreg 3.125 mg BID, hydralazine 10 mg BID # HLD - statin # Hx of Atrial fibrillation # Developmental delay # Hx of stroke with Right hemiparesis Brief Plan: - On 3 L NC. Supplemental O2 as needed, wean as tolerated - Watch And Clock Maker And Repairer Onc following. Stated discussed standard of care with patient and her family, which would be minimally invasive hysterectomy, bilateral salpingo-oophorectomy, sentinel lymphadenectomy. Noted will plan to proceed with surgery as long as patient is cleared medically. Stated that if not medically stable for major surgery, will plan on dilation and curettage and levonorgestrel intrauterine device placement. Recs noted. Discussed with Watch And Clock Maker And Repairer Onc team today, who noted tentatively planning for surgery on Wednesday06/18/25. - Patient has remained medically stable on GMF and will likely by stable for OR with Watch And Clock Maker And Repairer Onc on 06/18/25. - Monitor H&H and transfuse PRN - SMOKEHOUSE WORKER evaluated. Advised soft and bite-sized solid today. Recs noted. - Continue supportive care - Continue chronic medications as able - SW following - TCC following for dispo planning. Discussed with TCC today. Total time spent: 35 minutes Liban Franklin MD Division of Hospitalist Medicine [facility] 3:29 PM 06/13/25 Images from the original note were not included. PHYSICAL THERAPY [facility] Initial Evaluation Name/MRN: Nancy Delacruz ([id number]) Evaluation Date: 06/13/2025 Date of : 1965 Admission Date: 06/11/2025 10:35 PM Age: 59 y.o. Room/Bed: [facility] A Discharge Recommendation: Halfway Facility Equipment Needed: No (tbd) Assessment IMPRESSION: Pt is a 59 y.o. female who presented to the hospital due to vaginal bleeding, acute anemia, acute respiratory failure with findings of endometrial carcinoma. At baseline, pt performs transfers with assistance from family. Pt is currently below baseline level of mobility requiring Max assist for sit to stand transfers and Mod-Max assist for bed mobility. Recommend discharge to SNF to improve balance, strength, activity tolerance, and mobility prior to return home. Admitting Diagnosis: Vaginal bleeding Prognosis: good Performance Deficits /Impairments: Decreased Functional Mobility, Decreased ADL status, Decreased Strength, Decreased Safety Awareness, Decreased Endurance, Decreased Balance, Decreased Cognition, and Decreased Posture Decision Making: Medium Complexity Subjective Pt is supine in bed upon arrival and is agreeable to PT evaluation. RN okayed session. Pain: Pt denies any current pain. Past Medical History: Medical History[1] Past Surgical History: Surgical History[2] Admission Diagnosis: Patient Active Problem List Diagnosis Date Noted Vaginal bleeding 06/11/2025 Medical Precautions: No active isolations Proper PPE donned/doffed in accordance with facility standards. Fall Risk: Ledesma Fall Risk Score: 35 (Medium Risk) Precautions/Restrictions: Lines/Drains/Airways: 3L O2, external catheter Skin care precautions Family/Caregiver Present: none and pt's brother present at end of session Overall Cognitive Status: Exceptions - Arousal/alertness: appropriate responses to stimuli - Following commands: follows one step commands with increased time - Initiation: requires cues for some - Sequencing: requires cues for some Overall Orientation Status: Oriented to Place and Oriented to Person Pt able to state month but not year. Pt with a history of developmental delay. Vision: Not Assessed Hearing: normal Social/Functional History Patient admitted from home. Lives With: Family Type of Home: single family home Home Layout: Two Level Home and Able to Live on Main Level Home Access: Ramped Entrance Bathroom Shower/Tub: Shower Chair with Back, Walk in Shower, and Grab Bars Toilet: Standard Home Equipment: front wheeled walker, cane, and transport chair Homemaking Responsibilities: Needs Assist Receives Help From: Family Active Marine Habitat Resource Specialist: No Pt lives with her mother and brothers. Pt is a questionable historian. Pt's brother also provided some information. Use of transport chair for primary mode of mobility. Assistance required for transfers with ability to ambulate a few steps with assist. Prior Level of Function Prior Level of ADL Function: Required Assist Prior Level of Mobility: Required Assist; Device: use of family for support Prior Level of Transfers: Required Assist Objective Lower Extremity Assessment PROM: decreased R ankle DF noted. Pt with history of CVA with R sided deficits. R ankle resting with increased PF and inversion. Strength: bilateral knee extension at least 3/5, bilateral hip flexion 3-/5, L ankle DF at least 3/5, R ankle DF 3-/5 Sensation: pt denies numbness/tingling in BLEs Balance: Balance During Session: Posture: fair Sitting - Static: SBA Sitting - Dynamic: Contact Guard Standing - Static: Mod Assist Pt sat EOB for ~8 minutes. Bed Mobility: Supine to sit: Mod Assist Sit to supine: Max Assist Rolling to left: Mod Assist HOB Elevated Max assist for supine scooting towards HOB Cues for sequencing when performing supine to sit to improve performance. Transfers Sit to stand: Max Assist Stand to sit: Max Assist Sit to stand x2 reps from EOB to walker. Pt with retro lean when standing. Cues to shift weight anteriorly over DICK to improve balance and posture. Pt with increased PF on R ankle and decreased WB through RLE noted. Ambulation Did not assess this session. Pt denies lightheadedness/dizziness during session. Mild MCLAIN noted with mobility. Cues for pursed lip breathing. Exercises: Pt performed AAROM/AROM BLE exercises sitting EOB to improve strength and endurance including hip flexion 1x10 reps and LAQs 1x10 reps. Verbal and tactile cues for proper form. Outcome Measures AM-PAC How much HELP from another person do you currently need Turning from your back to your side while in a flat bed without using bedrails?: A Lot Moving from lying on your back to sitting on the side of a flat bed without using bedrails?: A Lot Moving to and from a bed to a chair (including a wheelchair)?: A Lot Standing up from a chair using your arms (wheelchair or bedside chair)?: A Lot Walking in a hospital room?: Total Stair climbing assessed?: No AM-PAC Inpatient Mobility Raw Score (No Stairs) : 9 JH-HLM JH-HLM Scale: Sat at edge of bed Plan Pt would benefit from skilled acute PT services to address Strengthening, ROM, Gait Training, Balance Training, Functional Mobility Training, Endurance Training, Safety Education and Training, Pain Management, Equipment Evaluation/Education, and Neuromuscular Re-Education Training. Frequency: 3x/weekfor 4 weeks Barriers: Impaired balance, Lower extremity weakness, Cognitive deficit, and Long standing deficits Safety/Education Safety Safety Devices in place: All fall risk precautions in place, call light within reach, left in bed, bed alarm in place, and gait belt Educated pt on use of call light for mobility. Restraints: No Education Education Given To: patient Education Provided: PT Role, PT Goals, Plan of Care, Transfer Training, Equipment, Benefits of Increasing Activity, and Breathing Techniques Education Method: Verbal Barriers to Learning: Cognition Education Outcome: Verbalized Understanding and Continued Education Needed Goals Patient Stated Goal: to go home Encounter Problems Encounter Problems (Active) Balance Patient will maintain dynamic standing balance for 5 minutes with min assist in order to demonstrate decreased risk of falling. Start: 06/13/25 Expected End: 07/11/25 Mobility Patient will ambulate 15 feet with min assist and least restrictive device in order to improve safety and independence with mobility. Start: 06/13/25 Expected End: 07/11/25 Transfers Patient will perform bed mobility with SBA in order to improve independence and prepare for out of bed mobility. Start: 06/13/25 Expected End: 07/11/25 Patient will complete functional transfer with least restrictive device with min assist in order to prepare for ambulation. Start: 06/13/25 Expected End: 07/11/25 Therapy Time Individual Co-Treatment Co-Evaluation Time In 0842 Time Out 0912 Minutes 30 Timed Code Treatment Minutes: 10 Minutes (1 unit TA) Hermann Michelle PT Patient's Physical Therapy Plan of Care supervision is transferred to a [facility] Physical Therapist. Goals and/or treatment plan was established in collaboration with patient/family/other representatives. [1] No past medical history on file. [2] No past surgical history on file. Images from the original note were not included. Speech-Language Pathology SPEECH LANGUAGE PATHOLOGY [facility] Modified Barium Swallow Study Patient Name: Nancy Delacruz Evaluation Date: 06/13/2025 Date of : 1965 Admission Date: 06/11/2025 10:35 PM Age: 59 y.o. Room/Bed: [facility] A IMPRESSION: The patient presents with mild oral phase dysphagia associated with oral motor weakness, limited dentition, mild base of tongue residue, and spillage to the pyriforms with thin and mildly thick liquids. There is mild pharyngeal phase dysphagia associated with base of tongue weakness and pharyngeal wall weakness with the velum bridging the gap between the two muscle groups. There is additional reduced hyolaryngeal elevation, pharyngocele, trace coating of the pharyngeal wall, minimal nasopharyngeal penetration, and minimal vallecular residue. There was observed laryngeal penetration above the vocal folds with - thin liquid, (straw, fed by clinician), There was no aspiration with any tested texture. RECOMMENDATION: Recommend Soft and bite-sized solids and Thin liquids and meds whole in puree or crushed in puree and the following precautions: - Upright positioning for all PO intake - Slow rate of intake - Small bites/sips - Supervision with PO Penetration-Aspiration Scale: 2. Contrast enters the airway, remains above the vocal folds, and is ejected from the airway (not seen in the airway at the end of the swallow). Pt would benefit from skilled acute SMOKEHOUSE WORKER services to ensure patient tolerance of the recommended diet, assess for potential diet upgrade, and formal instruction of swallow strategies. Frequency: 3 days/wk for 2 weeks Barriers: Confusion, Cognitive deficit, Limited safety awareness, Limited insight into deficits, and Medical complications Prognosis: good D/C Recommendations: to be determined General Initial MBS completed to assess the efficiency of her swallow function, rule out aspiration, and make recommendations regarding safe dietary consistencies, effective compensatory strategies, and safe eating environment. Subjective: Patient is upright in bed and fed by clinician during this exam. Radiologist: Dr Neal/ Inge PUTNAM Prior MBSS?: No Baseline Diet: Patient reports regular, cut-up Current diet: Dietary Orders (From admission, onward) Start Ordered 06/12/25 1222 Adult diet Dysphagia - Minced and Moist; Mildly Thick (Rudd) Diet effective now Question Answer Comment Diet type Dysphagia - Minced and Moist Fluid consistency Mildly Thick (Rudd) 06/12/25 1221 Textures tested: - thin liquid, (teaspoon, cup edge, straw, sequential swallows, fed by clinician) - mildly thick liquid, (teaspoon, cup edge, fed by clinician) - puree, (teaspoon, fed by clinician) - soft and bite sized solids Patient position: lateral Past Medical History: Medical History[1] Past Surgical History: Surgical History[2] Admission Diagnosis: Patient Active Problem List Diagnosis Date Noted Vaginal bleeding 06/11/2025 Pain: Pt denies any current pain. Reason for current admission: Nancy is a 59 y.o. female with with PMH below who got transferred from the [facility] to the [facility] for further evaluation and management of vaginal bleeding concerning for endometrial cancer. Per Sign Out: Pt has been hospitalized for 21 days at [facility] inpatient on PCU. Pt initially presented with altered mental status and hemoglobin of 3.6 and lactic of 6.7. Pt was found to have extensive vaginal bleeding, was intubated and received 4 units of PRBCs. - EGD on the 05/23 showed non bleeding ulcers. - CA 125 is elevated at 87. - Pt developed respiratory distress 06/04 requiring BIPAP and was put on IV lasix, showed some improvement but ultimately had to discontinue the lasix due to creatine increases (1.5 to 1.75). - The ICU team at [facility] had reviewed documentation previously and cleared her for PCU. - Prior to the Tx, Pt was satting well on 2-4L. Hemoglobin was 7.4 and has been stable. No active bleeding. - The medical team at the OSH requested transfer for higher level of care. Upon arrival to the [facility], the pt was HDS, afebrile, satting well on 2L. The initial workup at the [facility] pending Upon interviewing, the pt was lying on the bed in NAD. Pt is A&Ox2. Pt reports having vaginal bleeding. Oral Phase Patient presents with mild oral phase dysphagia associated with oral motor weakness, limited dentition, and mild base of tongue residue. There is reduced oral bolus containment with thin and mildly thick liquids resulting in spillage to the level of the pyriforms. Mastication is slightly prolonged. Bolus formation and AP transit are functional. There is no significant oral residue. Strategies attempted: none Pharyngeal Phase Patient presents with mild pharyngeal phase dysphagia associated with base of tongue weakness and pharyngeal wall weakness with the velum bridging the gap between the two muscle groups. There is additional reduced hyolaryngeal elevation, pharyngocele, minimal nasopharyngeal penetration, and trace coating of the pharyngeal wall. The onset of the swallow is timely. Epiglottic deflection is complete. There is minimal residue in the valleculae associated with base of tongue weakness. There is no significant piriform sinus residue associated with any tested texture. There is penetration into the laryngeal vestibule above the level of the vocal folds with thin liquids by straw sips. There is no vocal fold penetration or aspiration with any tested texture. Strategies attempted: none Esophageal Phase The esophagus was not visualized below the level of the UES. Noted: N/A Education The preliminary results of this evaluation were briefly shared with the patient. Goals Patient Stated Goal: None stated. Encounter Problems Encounter Problems (Active) Swallowing Patient will tolerate the least restrictive diet consistency to allow for safe consumption of daily meals (Initiated) Start: 06/13/25 Expected End: 06/27/25 Patient will demonstrate safe swallowing Intervention/techniques (Initiated) Start: 06/13/25 Expected End: 06/27/25 Patient will tolerate recommended food and liquid consistencies without clinical signs and symptoms of aspirations (Initiated) Start: 06/13/25 Expected End: 06/27/25 Encounter Problems (Resolved) Swallowing Patient will participate in instrumental assessment of swallowing as appropriate (Completed) Start: 06/12/25 Expected End: 06/15/25 Resolved: 06/13/25 Therapy Time SMOKEHOUSE WORKER Individual Minutes Time In: 0800 Time Out: 0820 Minutes: 20 MARIA DOLORES Smith [1] No past medical history on file. [2] No past surgical history on file. Images from the original note were not included. DISTANCE LEARNING PROGRAM COORDINATOR ONC Progress Note Date: 06/13/2025 Time: 6:06 AM Nancy Delacruz 59 y.o. female admitted for vaginal bleeding in setting of endometrial carcinoma Patient seen and examined. No acute events overnight. She reports she had some trouble falling asleep. She denies any concerns with vaginal bleeding, abdominal pain, chest pain, shortness of breath or any other issues. Vitals: Vitals: 06/12/25 1943 06/12/25199906/13/25 0005 06/13/25 0319 BP: 110/77 121/79 120/83 BP Location: Left arm Patient Position: Lying Pulse: 120 85 (!) 132 Resp: 16 16 20 Temp: 36.2 C (97.1 F) 36.4 C (97.5 F) 36.1 C (97 F) TempSrc: Temporal Temporal Temporal SpO2: 96% 94% 93% Weight: 165 lb (74.8 kg) Intake/Output: Current Shift: No intake/output data recorded. Physical Exam: Gen: NAD, alert and cooperative HEENT: Normocephalic, atraumatic, EOMI, MMM, R internal jugular line in place Resp: 3L NC, no increased WOB Abd: soft, NT/ND, no rebound, no guarding. : Purewick in place, no bleeding noted Incisions: NA Medications: Current Medications[1] Diagnostics: ECG 12 lead Result Date: 06/12/2025 Atypical Atrial flutter vs coarse Atrial fibrillation LVH with secondary repolarization abnormality Electronically Signed On 06-12-2025 17:39:43 EDT by Ligia Lackey XR chest 1 view Result Date: 06/12/2025 Patient Name: NANCY DELACRUZ : 1965 Exam Date/Time: 06/12/2025 10:56 Procedure: XR CHEST 1 VIEW Ordering Provider: FRANKLIN JAMES Reason For Exam: R IJ CVC issues; confirm correct positioning PORTABLE CHEST X-RAY CLINICAL INDICATION: Line placement A portable frontal view of the chest was obtained. COMPARISON: None FINDINGS: Heart size is within normal limits. Right jugular catheter terminates in the expected location of the superior vena cava. Low lung volumes are present. There is coarse infiltrate within the lateral aspect of the left midlung and within the right infrahilar region. No large pleural effusion or pneumothorax is seen. There are degenerative changes of the spine. Right jugular catheter terminates in the expected location of the superior vena cava. No pneumothorax is seen. Coarse bilateral infiltrates, most confluent within the lateral aspect of the left midlung. Follow-up to clearing is recommended. No prior examinations are available. Report Dictated on Electronically Signed By: Carlos Neal MD Component Date Value Ref Range Status Heart Rate 06/12/2025 79 bpm Final QRSD Interval 06/12/2025 82 ms Final QT Interval 06/12/2025 419 ms Final QTC Interval 06/12/2025 484 ms Final P [place] 06/12/2025 0 degrees Final QRS [place] 06/12/2025 -15 degrees Final T Wave [place] 06/12/2025 159 degrees Final VA Interval 06/12/2025 0 ms Final SODIUM 06/12/2025 140 136 - 145 mmol/L Final POTASSIUM 06/12/2025 3.9 3.5 - 5.1 mmol/L Final Plasma potassium values may be up to 0.5 mmol/L lower than serum values. CHLORIDE 06/12/2025 103 98 - 107 mmol/L Final CARBON DIOXIDE 06/12/2025 29 23 - 31 mmol/L Final ANION GAP 06/12/2025 8 3 - 13 mmol/L Final UREA NITROGEN 06/12/2025 41 (H) 9 - 23 mg/dL Final CREATININE 06/12/2025 1.32 (H) 0.57 - 1.11 mg/dL Final GLUCOSE 06/12/2025 95 82 - 115 mg/dL Final CALCIUM 06/12/2025 8.0 (L) 8.8 - 10.0 mg/dL Final AST (SGOT) 06/12/2025 31 <34 U/L Final ALT 06/12/2025 20 <30 U/L Final ALKALINE PHOSPHATASE 06/12/2025 78 40 - 150 U/L Final ALBUMIN 06/12/2025 1.8 (L) 3.4 - 4.8 g/dL Final BILIRUBIN, TOTAL 06/12/2025 0.5 <1.2 mg/dL Final TOTAL PROTEIN 06/12/2025 6.2 (L) 6.4 - 8.3 g/dL Final eGFR 06/12/2025 46.0 (L) >60.0 mL/min/1.73m*2 Final Calculation based on the Chronic Kidney Disease Epidemiology Collaboration (CKD-EPI) equation refit without adjustment for race PHOSPHORUS 06/12/2025 3.5 2.3 - 4.7 mg/dL Final MAGNESIUM 06/12/2025 1.9 1.6 - 2.6 mg/dL Final THYROID STIMULATING HORMONE 06/12/2025 2.80 0.35 - 4.94 uIU/mL Final ABO Grouping 06/12/2025 A Final Antibody Screen 06/12/2025 NEG Final Rh Type 06/12/2025 POS Final PROTHROMBIN TIME 06/12/2025 11.0 9.0 - 12.0 s Final INR 06/12/2025 1.0 0.9 - 1.1 Final Recommended Anticoagulant Therapy: SEE BELOW ----- INR of 2.0 - 3.0 : - Prophylaxis of Venous Thrombosis (high-risk surgery) - Treatment of Venous Thrombosis - Treatment of Pulmonary Embolism (Includes tissue heart valves, Acute Myocardial Infarction to prevent systemic embolism, Valvular Heart Disease, and Atrial Fibrillation) ----- INR of 2.5 - 3.5 : - Mechanical Prosthetic Valves (high risk) - If oral anticoagulant therapy is used to prevent Myocardial Infarction APTT 06/12/2025 34.8 (H) 20.0 - 30.5 s Final Auto WBC 06/12/2025 7.1 3.6 - 10.7 10*3/uL Final RBC 06/12/2025 3.29 (L) 3.80 - 5.20 10*6/uL Final Hemoglobin 06/12/2025 7.6 (L) 11.7 - 16.0 g/dL Final Hematocrit 06/12/2025 26.1 (L) 35.0 - 47.0 % Final MCV 06/12/2025 79.3 77.0 - 99.0 fL Final MCH 06/12/2025 23.1 (L) 26.0 - 34.0 pg Final MCHC 06/12/2025 29.1 (L) 30.5 - 36.0 % Final RDW 06/12/2025 26.9 (H) 11.5 - 15.0 % Final Platelets 06/12/2025 450 (H) 140 - 440 10*3/uL Final MPV 06/12/2025 9.5 9.0 - 12.7 fL Final Auto WBC 06/12/2025 7.1 3.6 - 10.7 10*3/uL Final RBC 06/12/2025 3.49 (L) 3.80 - 5.20 10*6/uL Final Hemoglobin 06/12/2025 7.9 (L) 11.7 - 16.0 g/dL Final Hematocrit 06/12/2025 27.3 (L) 35.0 - 47.0 % Final MCV 06/12/2025 78.2 77.0 - 99.0 fL Final MCH 06/12/2025 22.6 (L) 26.0 - 34.0 pg Final MCHC 06/12/2025 28.9 (L) 30.5 - 36.0 % Final RDW 06/12/2025 26.7 (H) 11.5 - 15.0 % Final Platelets 06/12/2025 453 (H) 140 - 440 10*3/uL Final MPV 06/12/2025 9.5 9.0 - 12.7 fL Final nRBC 06/12/2025 0.0 0.0 - 2.0 /100 WBCs Final Neutrophils Relative 06/12/2025 69.7 38.0 - 82.0 % Final Lymphocytes Relative 06/12/2025 18.7 15.0 - 45.0 % Final Monocytes Relative 06/12/2025 7.6 5.0 - 13.0 % Final Eosinophils Relative 06/12/2025 2.8 0.0 - 6.0 % Final Basophils Relative 06/12/2025 0.6 0.0 - 2.0 % Final Immature Grans % 06/12/2025 0.6 0.0 - 2.0 % Final Neutrophils Absolute 06/12/2025 5.0 1.8 - 7.5 10*3/uL Final Lymphocytes Absolute 06/12/2025 1.3 1.0 - 4.3 10*3/uL Final Monocytes Absolute 06/12/2025 0.5 0.0 - 0.9 10*3/uL Final Eosinophils Absolute 06/12/2025 0.2 0.0 - 0.5 10*3/uL Final Basophils Absolute 06/12/2025 0.0 0.0 - 0.2 10*3/uL Final Immature Grans Absolute 06/12/2025 0.0 <0.1 10*3/uL Final ABO Grouping 06/12/2025 A Final Rh Type 06/12/2025 POS Final RBC Morphology 06/12/2025 abnormal Final Anisocytosis 06/12/2025 Slight (A) (none) Final Macrocytes 06/12/2025 Slight (A) (none) Final Microcytes 06/12/2025 Slight (A) (none) Final Hypochromia 06/12/2025 Moderate (A) (none) Final Polychromasia 06/12/2025 Slight (A) (none) Final Ovalocytes 06/12/2025 Slight (A) (none) Final Neutrophils % 06/12/2025 72 38 - 82 % Final Bands % 06/12/2025 1 (H) <=0 % Final Lymphocytes % 06/12/2025 19 15 - 45 % Final Monocytes % 06/12/2025 2 (L) 5 - 13 % Final Eosinophils % 06/12/2025 3 0 - 6 % Final Basophils % 06/12/2025 3 (H) 0 - 2 % Final Absolute Neutrophil Count 06/12/2025 5.2 1.8 - 7.5 10*3/uL Final Bands Absolute 06/12/2025 0.1 (H) <=0.0 10*3/uL Final Lymphocytes Absolute 06/12/2025 1.3 1.0 - 4.3 10*3/uL Final Monocytes Absolute 06/12/2025 0.1 0.0 - 0.9 10*3/uL Final Eosinophils Absolute 06/12/2025 0.2 0.0 - 0.5 10*3/uL Final Basophils Absolute 06/12/2025 0.2 0.0 - 0.2 10*3/uL Final Neutrophils Manual 06/12/2025 73 Final Lymphocytes Manual 06/12/2025 19 Final Monocytes Manual 06/12/2025 2 Final Eosinophils Manual 06/12/2025 3 (H) 0 - 1 Final Basophils Manual 06/12/2025 3 Final Bands Manual 06/12/2025 1 Final Auto WBC 06/13/2025 7.6 3.6 - 10.7 10*3/uL Final RBC 06/13/2025 3.42 (L) 3.80 - 5.20 10*6/uL Final Hemoglobin 06/13/2025 7.8 (L) 11.7 - 16.0 g/dL Final Hematocrit 06/13/2025 27.2 (L) 35.0 - 47.0 % Final MCV 06/13/2025 79.5 77.0 - 99.0 fL Final MCH 06/13/2025 22.8 (L) 26.0 - 34.0 pg Final MCHC 06/13/2025 28.7 (L) 30.5 - 36.0 % Final RDW 06/13/2025 27.0 (H) 11.5 - 15.0 % Final Platelets 06/13/2025 466 (H) 140 - 440 10*3/uL Final MPV 06/13/2025 9.4 9.0 - 12.7 fL Final nRBC 06/13/2025 0.0 0.0 - 2.0 /100 WBCs Final Neutrophils Relative 06/13/2025 70.9 38.0 - 82.0 % Final Lymphocytes Relative 06/13/2025 17.6 15.0 - 45.0 % Final Monocytes Relative 06/13/2025 7.6 5.0 - 13.0 % Final Eosinophils Relative 06/13/2025 2.5 0.0 - 6.0 % Final Basophils Relative 06/13/2025 0.7 0.0 - 2.0 % Final Immature Grans % 06/13/2025 0.7 0.0 - 2.0 % Final Neutrophils Absolute 06/13/2025 5.4 1.8 - 7.5 10*3/uL Final Lymphocytes Absolute 06/13/2025 1.3 1.0 - 4.3 10*3/uL Final Monocytes Absolute 06/13/2025 0.6 0.0 - 0.9 10*3/uL Final Eosinophils Absolute 06/13/2025 0.2 0.0 - 0.5 10*3/uL Final Basophils Absolute 06/13/2025 0.1 0.0 - 0.2 10*3/uL Final Immature Grans Absolute 06/13/2025 0.1 (H) <0.1 10*3/uL Final SODIUM 06/13/2025 137 136 - 145 mmol/L Final POTASSIUM 06/13/2025 4.0 3.5 - 5.1 mmol/L Final Plasma potassium values may be up to 0.5 mmol/L lower than serum values. CHLORIDE 06/13/2025 105 98 - 107 mmol/L Final CARBON DIOXIDE 06/13/2025 28 23 - 31 mmol/L Final ANION GAP 06/13/2025 4 3 - 13 mmol/L Final UREA NITROGEN 06/13/2025 30 (H) 9 - 23 mg/dL Final CREATININE 06/13/2025 1.16 (H) 0.57 - 1.11 mg/dL Final GLUCOSE 06/13/2025 92 82 - 115 mg/dL Final CALCIUM 06/13/2025 8.1 (L) 8.8 - 10.0 mg/dL Final AST (SGOT) 06/13/2025 28 <34 U/L Final ALT 06/13/2025 15 <30 U/L Final ALKALINE PHOSPHATASE 06/13/2025 81 40 - 150 U/L Final ALBUMIN 06/13/2025 1.8 (L) 3.4 - 4.8 g/dL Final BILIRUBIN, TOTAL 06/13/2025 0.4 <1.2 mg/dL Final TOTAL PROTEIN 06/13/2025 6.1 (L) 6.4 - 8.3 g/dL Final eGFR 06/13/2025 53.7 (L) >60.0 mL/min/1.73m*2 Final Calculation based on the Chronic Kidney Disease Epidemiology Collaboration (CKD-EPI) equation refit without adjustment for race Assessment/Plan: Nancy Delacruz 59 y.o. female admitted for vaginal bleeding in setting of endometrial carcinoma Endometrioid Adenocarcinoma Atypical Hyperplasia Acute Blood Loss Anemia TUVS 06/01 with 21mm irregular stripe. CA125 of 87. EMB 06/06 with complex atypical hyperplasia and endometrioid adenocarcinoma in setting of vaginal bleeding for indeterminate amount of time. - Would be candidate for therapeutic dilation and curettage vs definitive treatment and surgical staging with TLH, BSO, SNLS - Mother is POA, noted in chart - Can consider PO progestin if bleeding does increase again in interm - Continue to transfuse as needed - Daily CBC - S/p social work consult Respiratory Failure, resolving RAMEZ, resolving Thrombocytosis HTN Hx Atrial Fibrillation HLD - Continue home meds Norvasc, lipitor, Hydralazine and coreg per primary - Supplemental O2 as needed, on 3L at this time - Daily CMP w/mag - Continue Tele - Management per primary - Will coordinate with primary IM team for inpatient vs outpatient management pending clinical course Sacral Wound, Stage 1 - Present on admission to [facility] - Would care consulted per primary Malnutrition - Albumin 1.8 most recently - Can consider dietary consult Please page the [facility] DISTANCE LEARNING PROGRAM COORDINATOR ONC Call RES group via Secure Chat for any questions or concerns. Helen Yeung MD 06/13/2025, 6:06 AM Attending Supervising Physician's Attestation Statement I performed a history and physical examination on the patient and discussed the management with the resident physician. I reviewed and agree with the findings and plan as documented in her note. To OR Wednesday for laparoscopic hysterectomy, bilateral salpingo-oophorectomy, bilateral sentinel lymphadenectomy. [1] Current Facility-Administered Medications: acetaminophen (Tylenol) tablet 650 mg, 650 mg, Oral, q6h PRN OR acetaminophen (Tylenol) suppository 650 mg, 650 mg, Rectal, q6h PRN, Navi Roberts MD amLODIPine (Norvasc) tablet 10 mg, 10 mg, Oral, Daily, Navi Roberts MD, 10 mg at 06/12/25 0835 atorvastatin (Lipitor) tablet 20 mg, 20 mg, Oral, Nightly, Navi Roberts MD, 20 mg at 06/12/252110 carvedilol (Coreg) tablet 3.125 mg, 3.125 mg, Oral, BID WC, Navi Roberts MD, 3.125 mg at 06/12/25 1639 chlorhexidine (Hibiclens) 4 % solution, , Topical, Daily, Liban Franklin MD hydrALAZINE (Apresoline) tablet 10 mg, 10 mg, Oral, BID, Liban Franklin MD, 10 mg at 06/12/252110 melatonin tablet 3 mg, 3 mg, Oral, Nightly, Navi Roberts MD, 3 mg at 06/12/252110 ondansetron ODT (Zofran-ODT) disintegrating tablet 4 mg, 4 mg, Oral, q8h PRN OR ondansetron (Zofran) injection 4 mg, 4 mg, IntraVENous, q6h PRN, Navi Roberts MD polyethylene glycol (PEG) 3350 (Miralax) packet 17 g, 17 g, Oral, Daily PRN, Navi Roberts MD sodium chloride 0.9 % infusion, 5-250 mL/hr, IntraVENous, PRN, Navi Roberts MD sodium chloride 0.9 % infusion, 5-250 mL/hr, IntraVENous, PRN, Liban Franklin MD sodium chloride 0.9% (NS) flush 5-40 mL, 5-40 mL, IntraVENous, q12h, Navi Roberts MD, 10 mL at 06/12/25 2310 sodium chloride 0.9% (NS) flush 5-40 mL, 5-40 mL, IntraVENous, PRN, Navi Roberts MD sodium chloride 0.9% (NS) flush 5-40 mL, 5-40 mL, IntraVENous, q12h, Liban Franklin MD, 10 mL at 06/13/25 0005 sodium chloride 0.9% (NS) flush 5-40 mL, 5-40 mL, IntraVENous, PRN, Liban Franklin MD sodium chloride 0.9% (NS) flush 5-40 mL, 5-40 mL, IntraCATHeter, q8h, Liban Franklin MD, 10 mL at 06/13/25 0402 sodium chloride 0.9% (NS) flush 5-40 mL, 5-40 mL, IntraVENous, PRN, Liban Franklin MD Images from the original note were not included. Speech-Language Pathology SPEECH LANGUAGE PATHOLOGY [facility] Bedside Swallow Evaluation Patient Name: Nancy Delacruz Evaluation Date: 06/12/2025 Date of : 1965 Admission Date: 06/11/2025 10:35 PM Age: 59 y.o. Room/Bed: [facility] A IMPRESSION: S/s oropharyngeal dysphagia. Intermittent overt clinical s/s pulmonary compromise with PO. Risk factors for aspiration include intubation (unknown duration), hx developmental delay, CVA. RECOMMENDATION: Recommend continue current diet for now (minced and moist with mildly thick liquids) and meds whole in puree Dysphagia NOMS: Level 5: Swallowing is safe with minimal diet restrictions and/or occasionally requires minimal cues to use compensatory strategies. The individual may occasionally self-cue. All nutrition and hydration needs are met by mouth. Recommend modified barium swallow study (MBSS) to further assess. Subjective Patient alert and cooperative. Seen upright in bed. Answers all basic questions with clear vocal quality. Follows some basic commands. No visitors at bedside. Spoke with WES Prater who cleared pt to be evaluated. 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 No pneumothorax is seen. Coarse bilateral infiltrates, most confluent within the lateral aspect of the left midlung. Follow-up to clearing is recommended. No prior examinations are available. Report Dictated on Electronically Signed By: Carlos Neal MD Electronically Signed Date/Time: 06/12/2025 11:18 AM EDT Oxygen: Oxygen Therapy: Supplemental oxygen O2 Flow Rate (L/min): 3 L/min Past Medical History: Medical History[1] Past Surgical History: Surgical History[2] Admission Diagnosis: Patient Active Problem List Diagnosis Date Noted Vaginal bleeding 06/11/2025 History of Present Illness: Nancy is a 59 y.o. female with with PMH below who got transferred from the OSH to the [facility] for further evaluation and management of vaginal bleeding concerning for endometrial cancer. Per Sign Out: Pt has been hospitalized for 21 days at [facility] inpatient on PCU. Pt initially presented with altered mental status and hemoglobin of 3.6 and lactic of 6.7. Pt was found to have extensive vaginal bleeding, was intubated and received 4 units of PRBCs. - EGD on the 05/23 showed non bleeding ulcers. - CA 125 is elevated at 87. - Pt developed respiratory distress 06/04 requiring BIPAP and was put on IV lasix, showed some improvement but ultimately had to discontinue the lasix due to creatine increases (1.5 to 1.75). - The ICU team at [facility] had reviewed documentation previously and cleared her for PCU. - Prior to the Tx, Pt was satting well on 2-4L. Hemoglobin was 7.4 and has been stable. No active bleeding. - The medical team at the OSH requested transfer for higher level of care. Upon arrival to the [facility], the pt was HDS, afebrile, satting well on 2L. The initial workup at the [facility] pending Upon interviewing, the pt was lying on the bed in NAD. Pt is A&Ox2. Pt reports having vaginal bleeding. Patient Complaint: unable to state Pain: Unable to state but no evidence of same PPE Worn: gloves Objective Bedside swallow eval completed. Oral Motor Mechanism Lingual asymmetry upon protrusion; decreased lingual and labial ROM, adequate dentition Oral Hygiene: appears to have peeling skin on surface of tongue Swallowing Examination PO Trials - ice chips - thin liquid, (teaspoon, fed by clinician) - mildly thick liquid, (cup edge, straw, fed by clinician) - puree, (teaspoon, fed by clinician) - soft and bite sized solids Oral Phase Pt with adequate oral receipt of PO trials. No anterior spillage. Mastication with soft solids appeared prolonged. Oral transit time appears disorganized. Min oral residue. Additional Observations: able to clear residue with a thick liquid chaser Pharyngeal Phase Hyolaryngeal excursion clinically appears reduced and timely per palpation. 1-2 swallows palpated per bolus, likely indicative of adequate pharyngeal clearance. Overt clinical s/s pulmonary compromise with Thin liquids as evidenced by immediate throat clear, altered vocal quality. Additional Observations: no s/s of aspiration with other consistencies but cannot rule out silent aspiration Education Education Given: role of therapy, diet recommendations, potential for additional diagnostic testing Given To: patient Response: needs reinforcement Goals Patient Stated Goal: Patient unable to participate in goal setting at this time. Encounter Problems Encounter Problems (Active) Swallowing Patient will participate in instrumental assessment of swallowing as appropriate Start: 06/12/25 Expected End: 06/15/25 Therapy Time SMOKEHOUSE WORKER Individual Minutes Time In: 1330 Time Out: 1345 Minutes: 15 Li Esteban MA, CCC/SMOKEHOUSE WORKER [1] No past medical history on file. [2] No past surgical history on file. Hospitalist Progress Note 06/12/2025 Subjective: Admit Date: 06/11/2025 PCP: No primary care provider on file. Room#: W5-539/W5-539 A BRIEF HOSPITAL COURSE: Nancy Delacruz is a 59 y.o. female with history of HTN, HLD, atrial fibrillation, developmental delay, stroke with Right hemiparesis who was transferred to [facility] from OSH on 06/11/25 for vaginal bleeding concerning for endometrial cancer. Patient reportedly with extensive hospitalization at [facility] and initially admitted for AMS, anemia with Hb 3.6, and lactic acid 6.7. She was reportedly found to have extensive vaginal bleeding, required intubation and multiple units of pRBC transfusions. EGD (05/23/25) with non-bleeding ulcers. Found to have elevated CA 125: 87. Patient reportedly developed respiratory distress on 06/04 requiring BIPAP and was started on IV lasix with some improvement, but lasix discontinued due to worsening creatinine. [facility] ICU team at reviewed hospital course from OSH and cleared patient for PCU. Patient transferred to [facility] under hospitalist service. Watch And Clock Maker And Repairer-Onc consulted at [facility]. Interval History: No overnight issues documented. Brother present at bedside today. Patient sitting in bed, Aox2 (person, place). States that she is not sure if she has had further bleeding. Currently denies fever, chills, chest pain, SOB. Case and plan discussed with patient, her brother, bedside nurse, and TCC. Home medications reviewed with patient and brother. Brother states that patient's mom is POA and he is alternate POA, but that patient's mom previously stated that patient is Full Code while at [facility]. Questions answered. NPO diet with enteral medications 24HR INTAKE/OUTPUT: No intake or output data in the 24 hours ending 06/12/25 0900 Past Medical History: Medical History[1] LABS: CBC: Recent Labs 06/12/25 0356 06/12/25 0840 WBC 7.1 7.1 RBC 3.29* 3.49* HGB 7.6* 7.9* HCT 26.1* 27.3* MCV 79.3 78.2 RDW 26.9* 26.7* PLT 450* 453* BMP: Recent Labs 06/12/25 0356 NA 140 K 3.9 CL 103 CO2 29 BUN 41* CREATININE 1.32* GLUCOSE 95 CALCIUM 8.0* ANIONGAP 8 LIVER PROFILE: Recent Labs 06/12/25 0356 AST 31 ALT 20 BILITOT 0.5 ALKPHOS 78 PROT 6.2* PT/INR: Recent Labs 06/12/25 0356 PROTIME 11.0 INR 1.0 CARDIAC ENZYMES: No results for input(s): "TROPONINI" in the last 72 hours. Procalcitonin: No results found for: "PROCAL" COVID-19 PCR: No results for input(s): "COVID19" in the last 72 hours. Objective: Vitals: BP 129/92 (BP Location: Left arm, Patient Position: Lying) Pulse 98 Temp 36.8 C (98.3 F) (Temporal) Resp 18 Wt 169 lb 12.1 oz (77 kg) SpO2 93% Pulse Ox: SpO2 Av.7 % Min: 93 % Max: 97 % Supplemental O2: O2 Flow Rate (L/min): 3 L/min Physical Exam Constitutional: General: She is not in acute distress. Appearance: She is not toxic-appearing. HENT: Nose: Comments: On 3 L NC Cardiovascular: Rate and Rhythm: Normal rate and regular rhythm. Pulmonary: Effort: Pulmonary effort is normal. No respiratory distress. Abdominal: Palpations: Abdomen is soft. Tenderness: There is no abdominal tenderness. Skin: General: Skin is warm and dry. Neurological: Mental Status: She is alert. She is disoriented. Motor: Weakness present. Comments: Aox2 (person, place) Medications: Scheduled PRN Scheduled Meds[2] PRN Meds[3] Continuous Continuous Meds[4] Assessment Acute, acute on chronic, unstable/uncontrolled chronic problems/diagnoses: # Vaginal bleeding, concern for endometrial cancer - elevated CA 125: 87. # Acute blood loss anemia # Lactic acidosis, resolved # Acute hypoxic respiratory failure # RAMEZ # Thrombocytosis # Dysphagia Stable chronic problems affecting care, new non-acute diagnoses: # HTN - amlodipine 10 mg daily, coreg 3.125 mg BID, hydralazine 10 mg QID # HLD - statin # Hx of Atrial fibrillation # Developmental delay # Hx of stroke with Right hemiparesis Plan As a result of the above findings & factors, the following mgmt was pursued: - On 3 L NC. Supplemental O2 as needed. Monitor VS - Watch And Clock Maker And Repairer Onc consulted. Stated that patient would be candidate for therapeutic dilation and curettage vs definitive treatment and surgical staging with TLH, BSO, SNLS. Advised that can consider PO progestin if bleeding does increase again. Recs noted. - Monitor H&H and transfuse PRN - SMOKEHOUSE WORKER evaluated. MBSS ordered. - Continue supportive care - Continue chronic medications as able - SW following - TCC following for dispo planning. Discussed with TCC today. - am labs, replace lytes prn - delirium precautions: schedule melatonin at bedtime and limit nighttime disturbances - DVT prophylaxis: SCDs Advance Directive: Prior Anticipated Discharge - Date - TBD - Location - TBD - Pending the following - clinical course, supply chain consultant recs, dispo planning No emergency contact information on file. Liban Franklin MD Division of Hospitalist Medicine [facility] [1] No past medical history on file. [2] amLODIPine, 10 mg, Oral, Daily atorvastatin, 20 mg, Oral, Nightly carvedilol, 3.125 mg, Oral, BID WC hydrALAZINE, 10 mg, Oral, 4x daily melatonin, 3 mg, Oral, Nightly sodium chloride 0.9%, 5-40 mL, IntraVENous, q12h [3] PRN medications: acetaminophen OR acetaminophen, ondansetron ODT OR ondansetron, polyethylene glycol (PEG) 3350, sodium chloride, sodium chloride 0.9% [4] documented in this encounter [facility] 06-29-2025 Note [facility] 06-28-2025 Note [facility] 06-27-2025 Telephone encounter Note Can we [facility] 06-27-2025 Miscellaneous Notes Can we request [facility] [place] documented in this encounter [facility] 06-26-2025 Note Received request heath Patrick to cancel bronch procedure today due to patient improvement. Endo notified. [facility] 06-26-2025 Telephone encounter Note Received request from Dr. Patrick to cancel bronch procedure today due to patient improvement. Endo notified. [facility] 06-26-2025 Miscellaneous Notes Received request from Dr. Patrick to cancel bronch procedure today due to patient improvement. Endo notified. Patient scheduled inpatient Bronch/BAL at [facility] 06/26/25 2:[address] Wagner. Pre-Bronch orders placed. Surgery scheduling . Provider will arrange outpatient follow up if needed at time of discharge. documented in this encounter [facility] 06-25-2025 Telephone encounter Note Patient scheduled inpatient Bronch/BAL at [facility] 06/26/25 2:[address] Wagner. Pre-Bronch orders placed. Surgery scheduling . Provider will arrange outpatient follow up if needed at time of discharge. [facility] 06-25-2025 Miscellaneous Notes Patient scheduled inpatient Bronch/BAL at [facility] 06/26/25 2:[address] Wagner. Pre-Bronch orders placed. Surgery scheduling . Provider will arrange outpatient follow up if needed at time of discharge. documented in this encounter [facility] 06-23-2025 Note Encounter entered in error, please see other progress note from today. [facility] 06-22-2025 Hospital Discharg e instructions Lulu Kowalski RN - 06/22/2025 4:36 PM EDT Images from the original note were not included. Continuity of Care Form Patient Name: Nancy Delacruz : 1965 Admit date: 06/11/2025 Discharge date: Code Status Order: Full Code Advance Directives: N Admitting Physician: Norman Fleming MD PCP: SABRINA DURAN Discharging Nurse: Discharging Hospital Unit/Room#: [id number]/H-5125 A Discharging Unit Phone Number: Emergency Contact: Extended Emergency Contact Information Primary Emergency Contact: Wayne Delacruz Mobile Relation: Brother Preferred language: Nigerien Secondary Emergency Contact: Johana Delacruz Mobile Relation: Mother Preferred language: Nigerien Past Surgical History: No past surgical history on file. Immunization History: There is no immunization history on file for this patient. Active Problems: Medical Problems Problem List * (Principal) Vaginal bleeding Acute hypoxemic respiratory failure (HCC) Atrial fibrillation (HCC) Acute blood loss anemia Isolation/Infection: No active isolations No active infections Nurse Assessment: Last Vital Signs: BP 158/98 Pulse 96 Temp 36.9 C (98.5 F) (Temporal) Resp 24 Ht 1.651 m (5' 5") Wt 87.6 kg (193 lb 1.6 oz) SpO2 96% BMI 32.13 kg/m Last documented pain score (0-10 scale): Last Weight: Wt Readings from Last 1 Encounters: 06/22/25 87.6 kg (193 lb 1.6 oz) Mental Status: {MACEY Patient Mental Status:56934} IV Access: {MACEY IV Access:32235} Nursing Mobility/ADLs: Walking {LAKESHA ADL:::"Independent"} Transfer {LAKESHA ADL:::"Independent"} Bathing {LAKESHA ADL:::"Independent"} Dressing {LAKESHA ADL:::"Independent"} Toileting {LAKESHA ADL:::"Independent"} Feeding {LAKESHA ADL:::"Independent"} School [employer] Nursing Director {LAKESHA ADL:::"Independent"} Med Delivery {yes/no:88001} Wound Care Documentation and Therapy: Wound/Incision 06/12/25 Skin Tear Forearm Right (Active) Wound Image 06/12/25 0845 Site Assessment [place] 06/22/25 0835 [place]-Wound Assessment Clean;Dry 06/22/25 0835 Drainage Description Purulent 06/17/25 0946 Odor None 06/22/25 0835 Drainage Amount None 06/22/25 0835 Treatments Site care 06/20/25 0400 Primary Dressing Open to air 06/22/25 0835 Dressing Status Clean, dry & intact 06/20/25 1736 Number of days: 10 Elimination: Continence: Bowel: {yes/no:45998} Bladder: {yes/no:92608} Urinary Catheter: {MACEY Urinary Catheter:62361} Colostomy/Ileostomy/Ileal Conduit: {YES / NO:} Date of Last BM: Intake/Output Summary (Last 24 hours) at 06/22/2025 1636 Last data filed at 06/22/2025 1133 Gross per 24 hour Intake 485 ml Output 2050 ml Net -1565 ml I/O last 3 completed shifts: In: 365 (4.2 mL/kg) [P.O.:365] Out: 1800 (20.6 mL/kg) [Urine:1800 (0.6 mL/kg/hr)] Weight: 87.6 kg Safety Concerns: {MACEY Safety Concerns:94509} Impairments/Disabilities: {MACEY Impairments/Disabilities:67905} Nutrition Therapy: Current Nutrition Therapy: {MACEY Diet List:65418} Routes of Feeding: {routes of feedin} Liquids: {liquid consistency:38309} Daily Fluid Restriction: {daily fluid restriction:09044} Last Modified Barium Swallow with Video (Video Swallowing Test): {done not done:26525} Treatments at the Time of Hospital Discharge: Respiratory Treatments: Oxygen Therapy: {Therapy; copd oxygen:44962} Ventilator: {MACEY Ventilator:13060} Rehab Therapies: {GEN THERAPY DISCIPLINE SCAL:4252624} Weight Bearing Status/Restrictions: {POD WEIGHT BEARIN} Other Medical Equipment (for information only, NOT a DME order): {Assistive Devices DME:11946} Other Treatments: Patient's personal belongings (please select all that are sent with patient): {MACEY Patient Belongings:62751} RN SIGNATURE: {E-signature:06958} CASE MANAGEMENT/SOCIAL WORK SECTION Inpatient Status Date: Discharging to Facility/ Agency [facility] (if applicable) Name: Address: Dialysis Schedule: Phone: Fax: Wildlife Biology Internship/Regional Operations Director signature: {E-signature:42367} PHYSICIAN SECTION Name: Nancy Delacruz Prognosis: {Rehab Prognosis:41350} Condition at Discharge: {Patient Condition:87123} Rehab Potential (if transferring to Rehab): {Rehab Prognosis:85269} Recommended Labs or Other Treatments After Discharge: The individual is being admitted to a nursing facility directly from an [facility] or a unit of a advanced surgical hospital that is not operated by or licensed by [facility] under section 5119.14 or 5160-3-15.1 5 The individual requires the level of services provided by a nursing facility for the condition for which he or she was treated in the hospital and, Physician Certification: I certify the above information and transfer of Nancy Delacruz is necessary for the continuing treatment of the diagnosis listed and that she requires {MACEY Level of Care:55428} for {greater less than:53948} 30 days. Update Admission H&P: {MACEY Changes in H&P:11483} PHYSICIAN SIGNATURE: {E-signature:37448} documented in this encounter [facility] 06-22-2025 Consult note Associated Order (s): INPATIENT CONSULT TO CRITICAL CARE - MEDICAL TEAM ICU consult Name: Nancy Delacruz : 1965(59 y.o.) Date: 06/22/25 Team: MICU Attending: Marcus Subjective: Hospital Summary: Initially admitted to ICU as a transfer from [facility] after hemorrhagic shock secondary to vaginal bleeding status post transfusion she developed worsening shortness of breath and suspected TRALI. Imaging improved and she was weaned off of NIV to nasal cannula and transferred to medical floor where she was awaiting bilateral salpingo-oophorectomy for endometrial carcinoma. Patient seen by pulmonology yesterday and diuresed. This morning patient had worsening shortness of breath where she was reportedly agitated wearing her PAP and ripped her mask off and had a desaturation that improved with 15 L salter nasal cannula prior to my evaluation. ICU consulted for hypoxia and worsening shortness of breath On my evaluation she is saturating 99-100% on nasal cannula. Patient has a history of developmental disability so it is somewhat difficult to obtain history from. Her brother is at bedside states that she is calm down her breathing does look better. She was eating on my evaluation. She denies any significant shortness of breath or chest pain currently and her cough has improved over the last 30 minutes. Her heart rate is improved as well currently 80s bpm. Scheduled Meds:Scheduled Meds[1] Continuous Infusions:Continuous Meds[2] Objective: Last Vitals: BP MAP 158/98 (06/22/25930) 118 (06/22/25930) Arterial BP MAP Temp 36.9 C (98.5 F) (06/22/25930) Pulse 96 (06/22/25930) Resp 24 (06/22/25930) SpO2 96 % (06/22/25930) Weight 87.6 kg (193 lb 1.6 oz) (06/22/25 0010) BMI Body mass index is 32.13 kg/m . I/O: 06/21 0700 - 06/22 0659 In: 365 [P.O.:365] Out: 1800 [Urine:1800] Ventilator: Resp Rate (Set): 12 FiO2 (%): 50 % Inspiratory Time (sec): 1 sec Oxygen Delivery: O2 Flow Rate (L/min): 15 L/min Invasive Lines / Tubes / Drains: Conflict Resolution Professional Peripheral IV 06/17/25 Right Expires 07/17/2025 (Active) Number of days: 4 External Urinary Catheter (Active) Number of days: 10 Wounds: Wound/Incision 06/12/25 Skin Tear Forearm Right (Active) Date First Assessed/Time First Assessed: 06/12/25 0845 Primary Wound Type: Skin Tear Location: Forearm Wound Location Orientation: Right Physical Exam Vitals and nursing note reviewed. Constitutional: Comments: Somewhat ill-appearing mildly increased work of breathing nondiaphoretic nontoxic appearing HENT: Mouth/Throat: Mouth: Mucous membranes are moist. Eyes: Extraocular Movements: Extraocular movements intact. Pupils: Pupils are equal, round, and reactive to light. Cardiovascular: Rate and Rhythm: Normal rate. Rhythm irregular. Pulses: Normal pulses. Heart sounds: Normal heart sounds. Pulmonary: Comments: Mild crackles at bases especially bilaterally with mild to moderate tachypnea with mild increased work of breathing in the intercostal muscles no head-bobbing able to speak in sentences voice is normal for her. Exam is improved from her recent ICU stay Abdominal: Palpations: Abdomen is soft. Tenderness: There is no abdominal tenderness. There is no guarding or rebound. Musculoskeletal: Right lower leg: Edema present. Left lower leg: Edema present. Neurological: Comments: Developmental disability, neurologic status at baseline with no focal deficits Psychiatric: Comments: Calm now [facility] within last 24 hours- BMP: Recent Labs 06/20/2531406/21/2512406/22/25 013 NA 137 139 135* K 4.3 4.6 4.5 CL 111* 110* 107 CO2 19* 23 22* BUN 33* 28* 30* CREATININE 1.15* 1.03 1.21* CALCIUM 7.4* 8.3* 8.1* LFTs:No results for input(s): "AST", "ALT", "PROT", "ALBUMIN", "BILITOT", "BILIRUBINU", "ALKPHOS", "LIPASE" in the last 72 hours. Glucose: Recent Labs 06/20/2531406/21/2512406/22/25 0135 GLUCOSE 77* 83 102 Procal: No results for input(s): "PROCAL" in the last 72 hours. CBC: Recent Labs 06/20/2531406/21/2512406/22/25 0135 06/22/25 0856 WBC 9.1 8.8 10.5 -- HGB 7.7* 8.4* 8.7* 9.3 HCT 25.8* 29.1* 30.0* -- PLT 339 460* 437 -- MCV 80.6 83.1 82.4 -- RDW 22.5* 22.7* 22.9* -- ABGs: Recent Labs 06/22/25 0856 PHART 7.482* [id number] 32.5* PO2ART 79.2* [id number] 23.8 [id number] Salter High Flow Nasal Cannula (6-15 LPM) Lactic Acid: No results for input(s): "LACTATE" in the last 72 hours. INR: No results for input(s): "INR" in the last 72 hours. Cardiac Injury Profile: No results for input(s): "CKTOTAL", "CKMB", "TROPONINI" in the last 72 hours. Labs in Last 3 months: Lab Results Component Value Date TSH 2.80 06/12/2025 INR 1.0 06/12/2025 Microbiology- Urine Cx: No results found for: URINECX Blood Cx: Lab Results Component Value Date BLOODCX No growth at 4 days 06/17/2025 Sputum Cx: Lab Results Component Value Date RESPCULT Rare respiratory amita present. 06/18/2025 Gram Stain: Lab Results Component Value Date LABGRAM Few Epithelial cells per low power field (A) 06/18/2025 LABGRAM (A) 06/18/2025 Moderate Polymorphonuclear leukocytes per low power field LABGRAM Rare Gram positive cocci (A) 06/18/2025 PNA PCR: Lab Results Component Value Date HUMANMETAPNE Not Detected 06/18/2025 COVID19: No results found for: COVID19 Legionella Ag: Lab Results Component Value Date LEGIONELLAPN Not Detected 06/18/2025 Strep Ag: No results for input(s): "STREPPNEUMO" in the last 72 hours. Assessment and Plan: Assessment: Bilateral infiltrates likely secondary to TRALI Acute hypoxic respiratory failure Developmental disability Paroxysmal atrial fibrillation Vaginal bleeding Acute blood loss anemia Endometrial carcinoma Plan: Lasix 60 mg x 1 now, suspect this will help with respiratory status and hypoxemia. Given likely TRALI suspect condition will continue to improve over the next few days PAP with naps and at night as tolerated Initial evaluation patient was on 15 L salter saturating 100% 1 hour later on reevaluation patient is now down to 10 L salter saturating 94% with significant improvement and work of breathing now that agitation is resolved. Discussed with pulmonology who also evaluated patient. Patient is currently appropriate to stay on medical floor. If patient worsens or any additional concerns please reach back out to ICU team for further management. Discussed with bedside nurse, hospitalist, patient and patient's brother who agree with current management plan [1] atorvastatin, 20 mg, Oral, Nightly digoxin, 125 mcg, Oral, Daily melatonin, 3 mg, Oral, Nightly metoprolol tartrate, 25 mg, Oral, q8h mupirocin, 1 Application, Nasal, BID pantoprazole, 40 mg, Oral, Nightly sodium chloride 0.9%, 5-40 mL, IntraVENous, q12h sodium chloride 0.9%, 5-40 mL, IntraVENous, q12h stomahesive in petrolatum, , Topical, q8h [2] Cosigned by Patt Velazquez DO at 06/22/2025 1:46 PM EDT Associated attestation - Patt Velazquez DO - 06/22/2025 1:46 PM EDT I have personally performed a [id number] diagnostic evaluation on this patient on date of service 06/22/2025. History, labs, imaging studies, and electronic medical record have been reviewed by me. This note documented by the [x]plumbing warehouse helper []EVE reflects my history, exam, and medical decision making. I have reviewed and agree with the care plan. Changes were made in the orders as necessary. ROS documentation was reviewed and negative unless otherwise stated in HPI. Additional pertinent interval history, ROS, and physical exam findings: Critical care was consulted to see Ms Delacruz this morning due to worsening shortness of breath and hypoxia. Reportedly patient had become agitated overnight and ripped off her PAP mask. SpO2 dropped into the mid-80s. Following this she was placed on Salter cannula at 15L with resolution of her hypoxia. ABG was drawn which showed 7.48/32/79/23. CXR with bilateral opacities similar to prior. On examination the patient is resting comfortably in bed, in no acute distress. Now on 12L. Patient with rapid, shallow breaths however similar in appearance to when she was in ICU, I suspect this is her baseline breathing pattern. Brother is at bedside and reports that patient appears more calm to him as well. Acute hypoxic respiratory failure Bilateral infiltrates, suspect TRALI At this time there are no acute indications for transfer to the MICU. As patient is maintaining appropriate O2 sats on salter cannula and ABG is alkalotic there is no additional therapy that would be initiated in the ICU at this time. Wean supplemental O2 to maintain spO2 >88%. Continue diuresis. Pulmonology following. Please feel free to reach out with any further questions/concerns or if the patient should continue to decompensate. Total critical care time for this patient with life-threatening unstable organ failure, including direct patient contact, management of life support systems, review of data including imaging and labs, and discussions with other team members and physicians at least 35 minutes so far today, excluding procedures. Associated Order(s): IP CONSULT TO CARDIOLOGY [facility] [place] [facility] [place]rophysiology Consult Note Reason for Consult/Chief Complaint: HF/A fib Referring provider: Dr. Fleming Established chemical recovery operator: none History of Present Illness: Nancy Delacruz is a 59 y.o. female with PMH of developmental delay, A-fib, HTN/HLD, stroke with residual right-sided deficits. She originally presented here as a transfer from an outside hospital. She presented there with vaginal bleeding and was treated for hemorrhagic shock. Hemoglobin at the time was 3.6. She received multiple blood transfusions but became short of breath and became fluid overloaded. She was intubated at the outside hospital but eventually was able to be extubated. During her hospital stay there, she was diuresed and treated for pneumonia but developed an RAMEZ that prevented further diuresis. She was also diagnosed with HFpEF with a TTE showing LV 60%. 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 Per family request, she was transferred to [facility] for further care. She was evaluated by analytical chemist/onc here and was offered hysterectomy, bilateral salpingo-oophorectomy, sentinel lymphadenectomy that was planned for today. During this time, her Hgb/Cr had remained stable. Yesterday she had worsening tachypnea and tachycardia and was transferred to ICU for NIV. Additionally she was found to be septic from a new PNA. Infectious work up is pending. On evaluation, she feels improved. She is coughing up a lot of phlegm. She was weaned off the pap and is NC this morning. Assessment/Plan HF NYHA Class [] I [] II [] III [] IV []Unable to assess HFpEF -HFpEF with a TTE showing LV 60% at outside hospital, NT prob BNP is 11, 202. She has not been IV diuretics here and was given fluids yesterday. She has mild pitting edema. Does not appear to have JVD. Would hold off additional IV diuresis in the setting of pending surgery today. -TTE ordered, will follow up results. -Daily weights -Strict I/Os A fib with RVR -Likely exacerbated by her acute illness not only her blood loss anemia but her new concern for PNA -HR is uncontrolled with rates in the 120s -She is not on any BB, would recommend initiating lopressor 25 mg BID post operatively Medications: Scheduled Meds[1] Infusion Medications: Continuous Meds[2] Physical Examination: Vitals: 06/18/25 0849 06/18/25 0900 06/18/25 0935 06/18/25 1000 BP: 106/79 111/68 116/76 BP Location: Patient Position: Pulse: (!) 124 107 112 (!) 123 Resp: (!) 26 20 24 (!) 33 Temp: TempSrc: SpO2: 96% 97% 91% 92% Weight: Intake/Output Summary (Last 24 hours) at 06/18/2025 1106 Last data filed at 06/18/2025 0528 Gross per 24 hour Intake 744 ml Output 350 ml Net 394 ml Wt Readings from Last 3 Encounters: 06/18/25 194 lb 10.7 oz (88.3 kg) Physical Exam Constitutional: no distress. Psychiatric: A &O x 3. Medical insight okay NMT: Oral mucosa is pink and moist Neck: No JVD. Respiratory: Lungs are+ ronchi Cardiac exam: Rhythm: irregular ; Normal S1 and S2 Murmur: no Other: No rub; no gallop Vasc: Peripheral pulses intact Abdomen: soft, Extremities: + LE edema Skin: Warm to touch and well perfused Laboratory Tests: TROPONIN I, CONVENTIONAL SENSITIVITY No results found for: "CKTOTAL", "CKMB", "CKMBINDEX", "TROPONINI" TROPONIN I, HIGH SENSITIVITY Troponin HS Serial Baseline Date Value Ref Range Status 06/17/2025 16 (H) <=14 ng/L Final Comment: In individuals presenting with symptoms > 2h, a baseline troponin <= 5 ng/L suggests acute cardiac injury is unlikely and further serial testing is generally not indicated. 2h Troponin HS (Serial 2nd Troponin) Date Value Ref Range Status 06/17/2025 16 (H) <=14 ng/L Final Comment: Rising or falling troponin delta below 2 ng/L as compared to baseline value suggests that acute cardiac injury is unlikely. No results found for: TROPDELTBASE No results found for: "TROPHS3" No results found for: TROPDELTSEC Recent Labs 06/16/25 0600 06/17/25 0506 06/17/25 1825 06/18/25 0529 NA 136 133* 134* 137 K 4.3 4.2 4.7 4.2 CL 103 102 104 107 CO2 24 23 23 23 BUN 33* 32* 34* 32* CREATININE 1.02 1.13* 1.06 1.06 EGFR 62.7 55.5* 59.9* 59.9* Recent Labs 06/16/25 0600 06/17/25 0506 06/17/25 1740 06/17/25 1825 06/18/25 0529 WBC 9.1 13.3* -- 14.2* 10.0 HGB 7.9* 8.4* 8.3 7.7* 7.2* HCT 27.5* 29.0* -- 26.5* 25.2* MCV 80.9 80.6 -- 79.1 81.0 PLT 482* 524* -- 408 370 No results found for: "HGBA1C" Lab Results Component Value Date TSH 2.80 06/12/2025 No results found for: "CHOL" No results found for: "HDL" No results found for: "LDLCALC" No results found for: "TRIG" No results found for: "CHOLHDL" No results found for: LDLCHOLESTER Recent Labs 06/17/252020 BNP 11,202* No results for input(s): "INR" in the last 72 hours. Results from last 7 days Lab Units 06/18/25 0529 06/17/25 1825 06/17/25 0506 AST U/L 18 22 29 ALT U/L 9 9 12 No results found for: "IRON", "TIBC", "FERRITIN" Radiology: CXR: personally reviewed: Cardiac Tests Personally Reviewed: Last EKG 06/11/25 ECG 12-LEAD (Preliminary) This result has not been signed. Information might be incomplete. Impression Atrial fibrillation LVH with secondary repolarization abnormality Telemetry findings: a fib 100-120s Reports reviewed: Last Echo No results found for this or any previous visit. Last Cath No results found for this or any previous visit. Last Stress Test No results found for this or any previous visit. Last EP study No results found for this or any previous visit. No results found for: "EFBP", "PLVEF", "LVEFPHYS", "LVEF2D", EF Susan Cerda DO DATE of SERVICE: 06/18/2025 [1] [Held by provider] amLODIPine, 10 mg, Oral, Daily atorvastatin, 20 mg, Oral, Nightly [Held by provider] carvedilol, 3.125 mg, Oral, BID WC cefepime, 2,000 mg, IntraVENous, q8h [Held by provider] hydrALAZINE, 10 mg, Oral, BID melatonin, 3 mg, Oral, Nightly mupirocin, 1 Application, Nasal, BID pantoprazole, 40 mg, Oral, Nightly Or pantoprazole (ProtoNix) 40 mg in sodium chloride (PF) 0.9 % 10 mL injection, 40 mg, IntraVENous, Nightly sodium chloride 0.9%, 5-40 mL, IntraVENous, q12h sodium chloride 0.9%, 5-40 mL, IntraVENous, q12h stomahesive in petrolatum, , Topical, q8h vancomycin, 1,500 mg, IntraVENous, q24h [2] Cosigned by Carlos Oliva MD at 06/18/2025 2:02 PM EDT Associated attestation - Carlos Oliva MD - 06/18/2025 2:02 PM EDT I, Dr. Carlos Oliva, saw and evaluated the patient on 06/18/2025. I personally obtained the zepeda and critical portions of the history and physical exam. I reviewed the chart, the fellow's documentation, and discussed the patient with the fellow. I agree with the fellow's medical decision making and have edited the note to reflect my clinical findings and my assessment and plan. In summary, Nancy Delacruz is a 59 yo F who needs hysterectomy to help with heavy bleeding. She has AF - unclear if this is paroxsymal, persistent, etc. Reported "HFpEF". Appears euvolemic on exam -- echo pending. - Do not recommend diuresis - Will stop Hydral/Amlodipine/Carvedilol for now - Start Metoprolol 25 mg q6h for rate control - No anticoagulation until bleeding issues resolved, plan for rate control strategy. Once, bleeding issue resolved and well healed from surgery, can restart stroke ppx DOAC and consider cardioversion attempt Will follow up heart rates and as needed Carlos Oliva MD Department of Cardiovascular Disease, Division of Heart Failure [facility] [place] 1:59 PM 06/18/25 Images from the original note were not included. Internal Medicine: MICU Initial Consult Name: Nancy Delacruz : 1965(59 y.o.) Date: 06/17/25 Attending: Dr. Mayra Ladd Subjective: Chief Complaint: Shortness of breath HPI: 59 F PMH developmental delay, A-fib, HTN/HLD, stroke with residual right-sided deficits. She originally presented here as a transfer from an outside hospital. At the [facility], she presented with vaginal bleeding that was concerning for hemorrhagic shock. Hemoglobin at the time was 3.6. She received multiple blood transfusions but became short of breath and became fluid overloaded. She was intubated at the outside hospital but eventually was able to be extubated. During her hospital stay there, she was diuresed and treated for pneumonia but developed an RAMEZ that prevented further diuresis. She was also diagnosed with HFpEF with a TTE showing LV 60%. 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 Per family request, she was transferred to [facility] for further care. She was evaluated by Lani Biswas here and was offered hysterectomy, bilateral salpingo-oophorectomy, sentinel lymphadenectomy that was planned for 06/18/2025. During this time, her Hgb/Cr had remained stable. Today, patient had increasing oxygen requirements and was notably tachypneic. Her WBC has also increased today. Pulmonology had seen and she was having severe conversational dyspnea as well as heart rates up to 170s but mostly around 130s. Chest x-ray that was done showed left mid zone infiltrates. CTA did not show any large pulmonary embolus. Due to her increasing work of breathing, she was placed on Salter and transferred to ICU After arrival to ICU, patient was transition to NIV due to continued work of breathing despite the salter. After she has spent some time on NIV, she was still breathing 28-35 times per minute. Medical History[1] Surgical History[2] Family History[3] Social History Socioeconomic History Marital status: Single Spouse name: Not on file Number of children: Not on file Years of education: Not on file Highest education level: Not on file Occupational History Not on file Tobacco Use Smoking status: Not on file Smokeless tobacco: Not on file Substance and Sexual Activity Alcohol use: Not on file Drug use: Not on file Sexual activity: Not on file Other Topics Concern Not on file Social History Narrative Not on file Social Drivers of Health Financial Resource Strain: Not on file Food Insecurity: Not on file Transportation Needs: Not on file Physical Activity: Not on file Stress: Not on file Social Connections: Not on file Intimate Partner Violence: Not on file Housing Stability: Not on file Allergies[4] Prior to Admission medications Medication Sig Start Date End Date Taking? Authorizing Provider amLODIPine (Norvasc) 10 MG tablet 10 mg. 05/21/25 Yes Historical Provider, carvedilol (Coreg) 3.125 MG tablet 3.125 mg. 05/21/25 Yes Historical Provider, hydrALAZINE (Apresoline) 100 MG tablet 100 mg. 05/21/25 Yes Historical Provider, simvastatin (Zocor) 20 MG tablet 20 mg. 05/21/25 Yes Historical Provider, Objective: Oxygen Delivery: O2 Flow Rate (L/min): 15 L/min VITALS: BP 102/70 Pulse 116 Temp (!) 38.1 C (100.6 F) (Temporal) Resp (!) 30 Wt 171 lb 4.8 oz (77.7 kg) SpO2 95% CURRENT PULSE OXIMETRY: SpO2: 95 % Review of Systems Constitutional: General Appearance []WDWN []Obese []Cachectic []Thin [x]Ill Eyes: Inspection of Pupils/Irises Pupils round and react: []Yes []No Sclera: []Icteric []Non-Icteric Inspection of Conjunctiva/Lids Conjunctiva: []Injected []Non-Injected Lids: []Intact []Lesion Present ENT/Mouth: External Inspection of ears/nose [] Normal [] Scar/Lesion/Mass Inspection of teeth/lips/gums Dentition: [][place] Teeth []Dentures Lips/Gums: []Intact []Lesion Present Mucosa: [][place] []Moist []Dry Neck: External Appearance Overall Appearance: []Normal []Lesion/Mass/Crepitus Present Trachea midline: []Yes []No Thyroid []Normal []Enlarged []Tender []Mass []Absent Respiratory: Respiratory effort [x]Labored []Non-Labored [] Mechanically-Ventilated Auscultation []Clear [x]Crackles []Wheezes [][place] Cardiovascular: Auscultation Rate: []Regular []Irregular [x]Tachycardia []Bradycardia Rhythm: []Regular [x]Irregular Murmur: []Present [x]Absent Extremities Peripheral Edema: []Present [x]Absent Varicosities: []Present []Absent Gastrointestinal: Abdomen Palpation: [x]Soft []Firm []Tender [x]Non-Tender []Distended [x]Non-distended Mass: []Present [x]Absent Bowel Sounds: []Present []Absent Hernia: []Present [x]Absent Liver/Spleen: []Hepatosplenomegaly [x]Organomegaly Absent Musculoskeletal: Inspection of Digits and Nails Cyanosis: []Present [x]Absent Clubbing: []Present [x]Absent Ischemia: []Present [x]Absent Infection: []Present [x]Absent Extremities PAEZ Equally: Except ([]RUE []RLE []LUE []LLE) Strength/Tone: Intact and Normal ([x]RUE [x]RLE [x]LUE [x]LLE) Skin: Inspection [x]Normal []Rash []Lesion []Ulcer Palpation [x]Warm []Cool [x]Dry []Clammy []Nodules []Induration []Skin-tightening Cap-Refill: [x] <3 sec [] >3 seconds (delayed) Neurologic: GCS EYE: 4 - Opens spontaneously GCS MOTOR: 6 - Obeys commands for movement GCS VERBAL: 4 - Confused Total GCS: 14 [] Sensation grossly intact Psych: Mental Status Alert: []Yes [] No Oriented: []x0 []X1 []X2 []x3 Mood/Affect []Normal []Flat []Agitated []Depressed [x]Anxious []Calm []Sedated []NAD [facility] within last 24 hours- BMP: Recent Labs 06/16/25 0606/17/25 05006/17/25 1825 NA 136 133* 134* K 4.3 4.2 4.7 CL 103 102 104 CO2 24 23 23 BUN 33* 32* 34* CREATININE 1.02 1.13* 1.06 CALCIUM 8.1* 8.2* 7.8* LFTs: Recent Labs 06/16/25 0606/17/25 0506 06/17/25 1825 AST 28 29 22 ALT 12 12 9 PROT 6.0* 6.8 6.4 ALBUMIN 1.9* 2.1* 1.9* BILITOT 0.5 0.6 0.6 ALKPHOS 81 92 82 Glucose: Recent Labs 06/15/25 0606/16/25 0606/17/25 0506 06/17/25 1825 GLUCOSE 80* 86 88 97 Procal: No results for input(s): "PROCAL" in the last 72 hours. CBC: Recent Labs 06/16/25 0606/17/25 0506 06/17/25 1740 06/17/25 1825 WBC 9.1 13.3* -- 14.2* HGB 7.9* 8.4* 8.3 7.7* HCT 27.5* 29.0* -- 26.5* PLT 482* 524* -- 408 MCV 80.9 80.6 -- 79.1 RDW 25.6* 25.6* -- 25.6* ABGs: Recent Labs 06/17/25 1740 PHART 7.512* [id number] 31.5* PO2ART 73.7* [id number] 24.7 [id number] Non-Invasive Ventilator Lactic Acid: Recent Labs 06/17/25 1825 LACTATE 0.7 INR: No results for input(s): "INR" in the last 72 hours. Cardiac Injury Profile: No results for input(s): "CKTOTAL", "CKMB", "TROPONINI" in the last 72 hours. Labs in Last 3 months: Lab Results Component Value Date TSH 2.80 06/12/2025 INR 1.0 06/12/2025 Microbiology- Urine Cx: No results found for: URINECX Blood Cx: No results found for: BLOODCX Sputum Cx: No results found for: RESPCULT Gram Stain: No results found for: LABGRAM PNA PCR: No results found for: HUMANMETAPNE COVID19: No results found for: COVID19 Legionella Ag: No results found for: "LEGIONELLAPN" Strep Ag: No results for input(s): "STREPPNEUMO" in the last 72 hours. Imaging- CT chest angiogram w and/or wo IV contrast Final Result No acute pulmonary embolism. Bilateral patchy areas of consolidation within upper, right middle and lingular lobes. Small right pleural effusion. Follow-up chest radiograph until bilateral infiltrates have resolved. Report Dictated on Electronically Signed By: Juvenal Rosas DO Electronically Signed Date/Time: 06/17/2025 4:26 PM EDT SEP- CORE MEASURE DATA SIRS Criteria Sepsis Criteria Severe Sepsis Criteria Septic Shock Criteria Must meet 2: [] Temperature > 100.4 F (38 C) or < 96.8 F (36 C) [x] HR > 90 [x] RR > 20 [x] WBC > 12 or < 4 or 10% bands Must be confirmed or suspected to move forward with diagnosis of sepsis. Must select at least one: [x] Bacterial Infection Confirmed or Suspected. [] Viral Infection Confirmed or Suspected. [] Fungal Infection Confirmed or Suspected. [] No infection present. Patient does not meet criteria for Sepsis. Must meet 1: [] Lactate > 2 or [x] Signs of Organ Dysfunction: - SBP < 90 or MAP < 65 - Altered mental status - Creatinine > 2 or increased from baseline - Urine Output < 0.5 ml/kg/hr - Bilirubin > 2 - INR > 1.5 - Platelets < 100,000 - Acute Respiratory Failure as evidenced by new need for NIPPV or mechanical ventilation [] No criteria met for Severe Sepsis. Must meet 1: [] Lactate = or > 4 or [] SBP < 90 or MAP < 65 for at least two readings in the first hour after fluid bolus administration [x] No criteria met for Septic Shock. No data found. Recent Labs 06/16/25 0600 06/17/25 0506 06/17/25 1825 WBC 9.1 13.3* 14.2* LACTATE -- -- 0.7 CREATININE 1.02 1.13* 1.06 BILITOT 0.5 0.6 0.6 PLT 482* 524* 408 Sepsis Identified at 1742 hours. Fluid Resuscitation Rational: Patient does not have hypotension or lactate of 4.0 mg/dl or higher, 30 ml/kg bolus not indicated Infection Source: Pulmonary - Nosocomial Reassessment Exam: Not applicable. Patient does not have Septic Shock. Sy Bloom MD Assessment and Plan: Principal Problem: Vaginal bleeding Active Problems: Acute hypoxemic respiratory failure (HCC) Atrial fibrillation (HCC) Acute blood loss anemia Assessment: Acute hypoxemic respiratory failure, suspect due to HAP A-fib with RVR, suspect driven by above Leukocytosis endometrioid adenocarcinoma Recent severe anemia and hemorrhagic shock due to vaginal bleeding developmental delay HTN/HLD Hx stroke with residual right-sided deficits Plan: Placed on NIV, n.p.o. status ABG after NIV placed showing respiratory alkalosis, hypoxemic Blood cultures Lactic acid wnl Infectious respiratory workup (respiratory culture, RVP, Pro-Aravind, pneumonia panel, MRSA swab, urine antigen) Empiric coverage with vancomycin and cefepime UA and culture Check troponin Continue to monitor respiratory status, if continuing to worsen intubate (consent obtained from brother who is second POA) If intubated, contact DISTANCE LEARNING PROGRAM COORDINATOR service for deferral of gynecologic procedure Given 5 mg as needed Lopressor IV continue as needed Cardiology previously consulted, await recs GI Prophylaxis: Pantoprazole PO/IV DVT Prophylaxis: SCDs BMI Classification: There is no height or weight on file to calculate BMI. Disposition: Transfer to ICU [1] No past medical history on file. [2] No past surgical history on file. [3] No family history on file. [4] Not on File Cosigned by Mayra Ladd DO at 06/20/2025 10:09 AM EDT Associated attestation - Mayra Ladd DO - 06/20/2025 10:09 AM EDT I have personally performed a [id number] diagnostic evaluation on this patient on date of service 06/17/2025. History, labs, imaging studies, and electronic medical record have been reviewed by me. This note documented by the [x]plumbing warehouse helper []EVE reflects my history, exam, and medical decision making. I have reviewed and agree with the care plan. Changes were made in the orders as necessary. ROS documentation was reviewed and negative unless otherwise stated in HPI. 59-year-old female with history of developmental delay, A-fib, HTN, HLD, CVA with residual right-sided deficits who initially presented to outside hospital for vaginal bleeding, admitted with hemorrhagic shock. Hospital course complicated by pulmonary edema, pneumonia, hypoxemic respiratory failure requiring intubation, and biopsy positive for endometrioid adenocarcinoma. Transferred to [facility] for possible surgery. Today developed worsening dyspnea and A-fib with RVR. Assessment: Acute hypoxemic respiratory failure Pulmonary infiltrates, small right pleural effusion A-fib with RVR Endometrioid adenocarcinoma Recent hemorrhagic shock Developmental delay History CVA with residual right-sided deficits Plan: -Awake and responding to questions -Febrile today. Increasing leukocytosis. Chest imaging reviewed, bilateral infiltrates. No recent prior imaging for comparison, but per report with similar infiltrates on outside chest CT. Infectious evaluation ordered. Started on vancomycin and cefepime. Pleural effusion too small for thoracentesis -ABG reviewed. Placed on BiPAP for work of breathing with improvement -EKG with A-fib with RVR. Given IVF and Lopressor with improvement. TTE ordered. Trend troponins. -Hgb stable. -Updated family at bedside and on the phone, confirmed full code Addendum: RAMEZ, resolved Total critical care time for this patient with life-threatening unstable organ failure, including direct patient contact, management of life support systems, review of data including imaging and labs, and discussions with other team members and physicians at least 40 min so far today, excluding procedures. Associated Order(s): Inpatient consult to Pulmonology PULMONOLOGY CONSULT NOTE Reason for consult: Orders Placed This Encounter Procedures Inpatient consult to Obstetrics / [place] COORDINATOR; Vaginal bleeding Standing Status: Standing Number of Occurrences: 1 Consulting Group: [facility]ORDIN[facility] [[id number]] Reason for Consult?: Vaginal bleeding Level of Consultation: Consultation and Management Inpatient consult to Wound Prevention Standing Status: Standing Number of Occurrences: 1 Reason for Consult:: Jose score, Prevention Inpatient consult to Gynecologic Oncology--VB ISO atypical hyperplasia Standing Status: Standing Number of Occurrences: 1 Reason for Consult?: VB ISO atypical hyperplasia Level of Consultation: Consultation and Management Inpatient consult to Social Work Standing Status: Standing Number of Occurrences: 1 Reason for Consult?: Patient with POA and need assistance with coordination of care for procedural consent Inpatient consult to Wound Care--Pressure Injury, Skin Tear; pressure injury to L buttock/coccyx, skin tear to R forearm/elbow Standing Status: Standing Number of Occurrences: 1 Consulting Group: [facility] [[id number]] Reason for Consult:: Pressure Injury Reason for Consult:: Skin Tear Wound location: pressure injury to L buttock/coccyx, skin tear to R forearm/elbow Inpatient consult to Pulmonology--[facility] Pulmonology; respiratory failure Standing Status: Standing Number of Occurrences: 1 Consulting Group: [facility] Pulmonology [[id number]] Reason for Consult?: respiratory failure Level of Consultation: Consultation and Management Did you contact the supply chain consultant?: No When to contact consulting provider: Today Inpatient consult to Pulmonology Consult performed by: Norman Fleming MD Consult ordered by: Sedrick Chavez DO Assessment and Plan/Recommendations: Acute hypoxemic respiratory failure Volume overload secondary to blood transfusions Likely high output HF previously in the setting of severe anemia Atrial fibrillation with RVR Atypical Hyperplasia with concern for endometrioid adenocarcinoma Acute blood loss anemia - stabilized RAMZE - improved Marked tachypnea and increased work of breathing on my exam. Tachycardic. SpO2 high 80s on 6LPM NC. I asked RN to place her on [place] high flow. Previously heart failure but without rhonchi or rales on exam. With underlying malignancy and being off anticoag in the hospital, is at high risk for PE; get CTA chest to assess Get TTE No previous smoking history or known parenchymal lung disease; previous CXR with left midzone infiltrates; CTA will allow for reassessment. Afebrile but increasing leukocytosis; Will follow up CTA chest. Norman Fleming MD Pulmonary, Critical Care, & Sleep Medicine Portions of the information within this encounter were entered using an electronic dictation system. Best attempts were made to edit/proofread the information prior to note completion. Despite the review of information, some errors may remain. If there are questions related to the information contained within the note please contact the signing physician directly. HPI: Admit Date: 06/11/2025 PCP: SABRINA DURAN Nancy Delacruz is a 59 y.o. female with history notable for developmental delay, atrial fibrillation, HTN, HLD, history of stroke with residual right hemiparesis. She was transferred from an outside hospital to [facility] due to vaginal bleeding, anemia, and concern for endometrial cancer. Patient reportedly with extensive hospitalization at [facility] and initially admitted for AMS, anemia with Hb 3.6, and lactic acid 6.7. She was reportedly found to have extensive vaginal bleeding. She was found to be in Afib RVR with patchy bilateral infiltrates on CXR (05/21) 10/29 most likely volume overload and high output heart failure due to RVR and profound anemia. She was intubated and received 4 unit of pRBC. EGD 05/23 also noted non-bleeding ulcers. Was improving from respiratory standpoint, but 06/04 the patient did develop respiratory distress, put on BiPAP and started on lasix. At time of transfer per documentation, her vaginal bleeding was scant, her Hgb 7.4. She had an endometrial biopsy on 06/06 with atypical hyperplasia concerning for focal endometrioid adenocarcinoma. TVUS on 06/01 showed an irregularly thickened endometrium with a 21mm stripe. She was evaluated by Watch And Clock Maker And Repairer-Onc here and was offered hysterectomy, bilateral salpingo-oophorectomy, sentinel lymphadenectomy. Awaiting medical clearance for surgery. if not medically stable for major surgery, will plan on dilation and curettage and levonorgestrel intrauterine device placement. The patient has remained on 4LPM NC. Has remained in atrial fibrillation. CXR from 06/12/25 with low lung volumes, superior left lower lobe infiltrates. Coarse bilateral infiltrartes. Hemoglobin stable here; has not needed transfusion. Creatinine plateaued between 1 and 1.2. Increasing leukotycotis today. Thrombocythemic. No micro studies here; no abx. Has not been diuresed here; has had good UOP. Patient seen in her hospital room. She is markedly tachypneic, RR in 30s. Speaking 1-2 words at a time with conversational dyspnea. No cough. Tachycardic to 130s, rhythm afib. Spoke with her brother Wayne who notes worsening tachypnea today. Primary RN Jyothi also confirmed increased work of breathing throughout the day. Past Medical History: Medical History[1] Past Surgical History: Surgical History[2] Allergies: Allergies[3] Social History: Social History Substance and Sexual Activity Alcohol Use Not on file Social History Substance and Sexual Activity Drug Use Not on file Tobacco Use History[4] Family History: Family History[5] Review of Systems Constitutional: Positive for fatigue. Respiratory: Positive for shortness of breath. Negative for cough and wheezing. Cardiovascular: Negative for chest pain, palpitations and leg swelling. Gastrointestinal: Negative for abdominal pain. Genitourinary: Positive for vaginal bleeding. Neurological: Negative for syncope and headaches. Objective: Vitals: BP 118/87 (BP Location: Left arm, Patient Position: Sitting) Pulse (!) 123 Temp 37 C (98.6 F) (Temporal) Resp 20 Wt 171 lb 4.8 oz (77.7 kg) SpO2 91% Physical Exam Constitutional: Appearance: She is obese. HENT: Nose: No congestion or rhinorrhea. Comments: Nasal cannula in place Eyes: General: No scleral icterus. Right eye: No discharge. Left eye: No discharge. Comments: Conjunctival pallor Cardiovascular: Rate and Rhythm: Tachycardia present. Rhythm irregular. Pulses: Normal pulses. Heart sounds: No murmur heard. Pulmonary: Effort: Tachypnea and accessory muscle usage present. Breath sounds: No wheezing, rhonchi or rales. Abdominal: Palpations: Abdomen is soft. Tenderness: There is no abdominal tenderness. Skin: General: Skin is warm and dry. Coloration: Skin is not jaundiced. Neurological: Mental Status: She is alert. Psychiatric: Behavior: Behavior is cooperative. Medications: Scheduled Meds:Scheduled Meds[6] Continuous Infusions:Continuous Meds[7] Data: [facility] within last 24 hours- BMP: Recent Labs 06/15/25 0606/16/25 0600 06/17/25 0506 NA 136 136 133* K 3.7 4.3 4.2 CL 103 103 102 CO2 26 24 23 BUN 29* 33* 32* CREATININE 1.06 1.02 1.13* CALCIUM 8.1* 8.1* 8.2* LFTs: Recent Labs 06/15/2561106/16/25 0600 06/17/25 0506 AST 28 28 29 ALT 16 12 12 PROT 6.1* 6.0* 6.8 ALBUMIN 1.9* 1.9* 2.1* BILITOT 0.4 0.5 0.6 ALKPHOS 83 81 92 Glucose: Recent Labs 06/15/25 0612 06/16/25 0600 06/17/25 0506 GLUCOSE 80* 86 88 Procal: No results for input(s): "PROCAL" in the last 72 hours. CBC: Recent Labs 06/15/25 0612 06/16/25 0600 06/17/25 0506 WBC 7.8 9.1 13.3* HGB 7.9* 7.9* 8.4* HCT 28.0* 27.5* 29.0* PLT 514* 482* 524* MCV 79.8 80.9 80.6 RDW 26.4* 25.6* 25.6* ABGs: No results for input(s): "PHART", "YRS8DZV", "PO2ART", "JQY9UEU", "SO2ART", "M2FOQBRC" in the last 72 hours. Lactic Acid: No results for input(s): "LACTATE" in the last 72 hours. INR: No results for input(s): "INR" in the last 72 hours. Cardiac Injury Profile: No results for input(s): "CKTOTAL", "CKMB", "TROPONINI" in the last 72 hours. Labs in Last 3 months: Lab Results Component Value Date TSH 2.80 06/12/2025 INR 1.0 06/12/2025 Microbiology- Urine Cx: No results found for: URINECX Blood Cx: No results found for: BLOODCX Sputum Cx: No results found for: RESPCULT Gram Stain: No results found for: LABGRAM PNA PCR: No results found for: HUMANMETAPNE COVID19: No results found for: COVID19 Legionella Ag: No results found for: "LEGIONELLAPN" Strep Ag: No results for input(s): "STREPPNEUMO" in the last 72 hours. Imaging- CXR portable: Results for orders placed during the hospital encounter of 06/11/25 XR chest 1 view Narrative Patient Name: NANCY DELACRUZ : 1965 Exam Date/Time: 06/12/2025 10:56 Procedure: XR CHEST 1 VIEW Ordering Provider: FRANKLIN JAMES Reason For Exam: R IJ CVC issues; confirm correct positioning PORTABLE CHEST X-RAY CLINICAL INDICATION: Line placement A portable frontal view of the chest was obtained. COMPARISON: None FINDINGS: Heart size is within normal limits. Right jugular catheter terminates in the expected location of the superior vena cava. Low lung volumes are present. There is coarse infiltrate within the lateral aspect of the left midlung and within the right infrahilar region. No large pleural effusion or pneumothorax is seen. There are degenerative changes of the spine. Impression Right jugular catheter terminates in the expected location of the superior vena cava. No pneumothorax is seen. Coarse bilateral infiltrates, most confluent within the lateral aspect of the left midlung. Follow-up to clearing is recommended. No prior examinations are available. Report Dictated on Electronically Signed By: Carlos Neal MD Electronically Signed Date/Time: 06/12/2025 11:18 AM EDT CXR (2V): No results found for this or any previous visit. CT Chest: No results found for this or any previous visit. CTA Chest: No results found for this or any previous visit. Other Studies: Reviewed and as per electronic record. CxR/CT images personally reviewed by me when available; salient findings summarized in A/P. [1] No past medical history on file. [2] No past surgical history on file. [3] Not on File [4] Social History Tobacco Use Smoking Status Not on file Smokeless Tobacco Not on file [5] No family history on file. [6] amLODIPine, 10 mg, Oral, Daily atorvastatin, 20 mg, Oral, Nightly carvedilol, 3.125 mg, Oral, BID WC chlorhexidine, , Topical, Daily hydrALAZINE, 10 mg, Oral, BID melatonin, 3 mg, Oral, Nightly sodium chloride 0.9%, 5-40 mL, IntraVENous, q12h sodium chloride 0.9%, 5-40 mL, IntraVENous, q12h sodium chloride 0.9%, 5-40 mL, IntraCATHeter, q8h stomahesive in petrolatum, , Topical, q8h [7] Associated Order(s): INPATIENT CONSULT TO WOUND CARE PROVIDERS Images from the original note were not included. [facility] Wound Care CONSULT Note Nancy Delacruz AGE: 59 y.o. GENDER: female : 1965 Subjective: HISTORY of PRESENT ILLNESS HPI Nancy Delacruz is a 59 y.o. female who presents for a wound consult. HPI: Per chart review, patient has been hospitalized for 21 days at [facility] inpatient on PCU. Pt initially presented with altered mental status and hemoglobin of 3.6 and lactic of 6.7. Pt was found to have extensive vaginal bleeding. Patient has been transferred from [facility] to [facility] for further evaluation and management of vaginal bleeding concerning for endometrial cancer. Wound Care consulted for " Skin Tear/Pressure Injury; L buttock, Right forearm/elbow". Patient resting in bed at time of visit. Patient wanting to rest at time of visit and refusing for wound care to examine sacral/buttock region at this time. Patient educated on importance of assessment for proper treatment. Patient continues to refused assessment. Photo noted in media tab. Treatment based off picture until wound care can assess region. Treatment applied per wound care service to right arm. PAST MEDICAL HISTORY Medical History[1] PAST SURGICAL HISTORY Surgical History[2] FAMILY HISTORY Family History[3] SOCIAL HISTORY Social History[4] ALLERGIES Allergies[5] MEDICATIONS Medications Ordered Prior to Encounter[6] REVIEW OF SYSTEMS Pertinent items are noted in HPI. Objective: BP 136/87 Pulse 107 Temp 36.4 C (97.5 F) (Temporal) Resp 20 Wt 165 lb (74.8 kg) SpO2 90% PHYSICAL EXAM General appearance: in no apparent distress, non-toxic, in no respiratory distress and acyanotic, and alert Skin: warm and dry Pulmonary: Normal effort, no respiratory distress, no cyanosis Right forearm: 1x2.5x0.2cm. [place] tissue and slough noted to wound bed. Scant serosang drainage present. Evon-wound intact and fragile. Right elbow: Scattered scabbing noted. No open wounds. No drainage present. Evon-wound intact and fragile. 06/13/25 Evon-rectal region: Ecchymosis noted with superficial opening present. Unable to examine drainage or tissue type. 06/13/25 LABS CBC: Lab Results Component Value Date WBC 7.6 06/13/2025 HGB 7.8 (L) 06/13/2025 HCT 27.2 (L) 06/13/2025 MCV 79.5 06/13/2025 PLT 466 (H) 06/13/2025 BMP: Lab Results Component Value Date NA 137 06/13/2025 K 4.0 06/13/2025 CL 105 06/13/2025 CO2 28 06/13/2025 PHOS 3.5 06/12/2025 BUN 30 (H) 06/13/2025 CREATININE 1.16 (H) 06/13/2025 PT/INR: Lab Results Component Value Date PROTIME 11.0 06/12/2025 INR 1.0 06/12/2025 Prealbumin: No results found for: PREALBUMIN Albumin:No components found for: LABALBU Sed Rate:No results found for: SEDRATE Micro: No components found for: BC Assessment/Plan: Nursing staff to perform dressing change: Right elbow: Abrasion - Leave KT - Region does not require wound care follow up Right forearm: Skin Tear - Cleanse with NS. Apply adaptic to wound bed. Cover with foam dressing. Change daily and PRN. Evon-rectal region: PREVENTION - Apply ET mix. Apply TID and PRN. - Wound care will attempt to assess at a later time per patient approval Nutritional support Wound Care to follow Recommend to follow up at [facility] wound care center after hospital discharge. Any questions or concerns please secure chat "ACH wound/ostomy". Thank you for the consult! I personally obtained the zepeda and critical portions of the history and physical exam. I reviewed the labs, imaging studies, and electronic medical record. I reviewed the chart documentation and discussed the patient with treatment team members. I have edited the note to reflect my clinical findings and my assessment and plan. Please note, the time of this note does not reflect the time I saw this patient today, but the time of this documentaton. Portions of this note including HPI, ROS, impression/plan, and examination may have been copied forward from admission to today as to provide important historical information essential in contributing to medical decision making. Documentation has been reviewed and edited as necessary to support clinical decision making for today's visit and to reflect my own independent evaluation of this patient. Decision making for today's visit and to reflect my own independent evaluation of this patient. [1] No past medical history on file. [2] No past surgical history on file. [3] No family history on file. [4] [5] Not on File [6] No current facility-administered medications on file prior to encounter. Current Outpatient Medications on File Prior to Encounter Medication Sig Dispense Refill amLODIPine (Norvasc) 10 MG tablet 10 mg. carvedilol (Coreg) 3.125 MG tablet 3.125 mg. hydrALAZINE (Apresoline) 100 MG tablet 100 mg. simvastatin (Zocor) 20 MG tablet 20 mg. Cosigned by Elmer Pacheco DO at 06/19/2025 12:01 PM EDT Associated Order(s): IP CONSULT TO SOCIAL WORK See SW note. Associated Order(s): IP CONSULT TO GYNECOLOGIC ONCOLOGY Images from the original note were not included. Gynecology Oncology Consult Patient Name: Nancy Delacruz Patient : 1965 Room[facility]: [facility] Admission Date/Time: 06/11/2025 10:35 PM Primary Care Physician: No primary care provider on file. HPI: Nancy Delacruz is a 59 y.o. 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 In brief, the patient presented to OSH altered mental status, diffuse vaginal bleeding and found to have Hgb 3.6 with lactate of 6.7. She was found to be in Afib RVR with patchy bilateral infiltrates on CXR (05/21) 2/2 most likely volume overload and high output heart failure due to RVR and profound anemia. She was intubated and received 4 unit of pRBC. EGD 05/23 also noted non-bleeding ulcers. Was improving from respiratory standpoint, but 06/04 the patient did develop respiratory distress, put on BiPAP and started on lasix. At time of transfer per documentation, her vaginal bleeding is scant, her Hgb 7.4 and she is satting well on 4L NC. Upon arrival to [facility], Hgb is 7.6, WBC 7.1 and platelets 450. Cr is 1.32. History was obtained from the chart and the patient. The patient does have dysarthria and is AAOx2, so history was difficult to obtain. Today, she reports no vaginal bleeding. She is unsure the reason of the hospitalization, but denies any acute concerns or complaints. She is unsure when she went through menopause and unsure when the new onset vaginal bleeding began. She denies any use of HRT or hormonal contraception in her life. She denies any personal or family history of cancer. She denies any medical problems at baseline, is unsure what home medications she takes and denies any surgical history. From DISTANCE LEARNING PROGRAM COORDINATOR perspective, she had an EMB on 06/06 with atypical hyperplasia and concern for focal endometrioid adenocarcinoma. TVUS on 06/01 showed an irregularly thickened endometrium with a 21mm stripe. REVIEW OF SYSTEMS: A minimum of an eleven point review of systems was completed. Review of Systems Constitutional: Negative. HENT: Negative. Eyes: Negative. Respiratory: Negative. Cardiovascular: Negative. Gastrointestinal: Negative. Genitourinary: Negative. Musculoskeletal: Negative. Social History: TOBACCO: has no history on file for tobacco use. ETOH: has no history on file for alcohol use. Illicit Drug Use: denies OBSTETRICAL HISTORY: G0 PAST MEDICAL HISTORY: Medical History[1] - Hx stroke, developmental delay, HLD, CHF PAST SURGICAL HISTORY: Surgical History[2] - None per patient, exam and chart review ALLERGIES: Allergies[3] MEDICATIONS: Current Medications[4] FAMILY HISTORY: Family History of Breast, Ovarian, Colon or Uterine Cancer: No family history is not on file. SOCIAL HISTORY: Social Connections: Not on file Medications: Current Inpatient Current Medications[5] VITALS: BP 129/92 (BP Location: Left arm, Patient Position: Lying) Pulse 98 Temp 36.8 C (98.3 F) (Temporal) Resp 18 Wt 169 lb 12.1 oz (77 kg) SpO2 93% INPUT/OUTPUT: No intake/output data recorded. PHYSICAL EXAM: Physical Exam Constitutional: General: She is not in acute distress. Appearance: She is ill-appearing. HENT: Head: Normocephalic and atraumatic. Eyes: Extraocular Movements: Extraocular movements intact. Pupils: Pupils are equal, round, and reactive to light. Neck: Comments: Triple lumen catheter in R IJ Cardiovascular: Rate and Rhythm: Normal rate. Rhythm irregular. Pulmonary: Effort: Pulmonary effort is normal. Comments: On 6L nasal canula without increased WOB Abdominal: General: Abdomen is flat. There is no distension. Palpations: Abdomen is soft. There is no mass. Comments: No surgical scars Genitourinary: Comments: Purewick external catheter in place No blood on underlying pads Musculoskeletal: General: No swelling. Comments: R spastic hemiparesis Skin: General: Skin is warm. Neurological: Mental Status: She is disoriented. Comments: AAOx2, oriented to self and location. Unaware of time and circumstance. Dysarthric Psychiatric: Mood and Affect: Mood normal. LAB RESULTS: Lab Results Component Value Date WBC 7.1 06/12/2025 HGB 7.9 (L) 06/12/2025 HCT 27.3 (L) 06/12/2025 MCV 78.2 06/12/2025 PLT 453 (H) 06/12/2025 Lab Results Component Value Date NA 140 06/12/2025 K 3.9 06/12/2025 CL 103 06/12/2025 CO2 29 06/12/2025 BUN 41 (H) 06/12/2025 CREATININE 1.32 (H) 06/12/2025 GLUCOSE 95 06/12/2025 CALCIUM 8.0 (L) 06/12/2025 DIAGNOSTICS: ECG 12 lead Result Date: 06/12/2025 Atrial flutter with predominant 4:1 AV block LVH with secondary repolarization abnormality ASSESSMENT & PLAN: Nancy Delacruz is a 59 y.o. G0 female admitted for acute respiratory failure, acute anemia and vaginal bleeding with DISTANCE LEARNING PROGRAM COORDINATOR Oncology consulted for vaginal bleeding Vaginal Bleeding Atypical Hyperplasia with concern for endometrioid adenocarcinoma Acute blood loss anemia TUVS 06/01 with 21mm irregular stripe. CA125 of 87. EMB 06/06 with complex atypical hyperplasia and endometrioid adenocarcinoma in setting of vaginal bleeding for indeterminate amount of time. - Would be candidate for therapeutic dilation and curettage vs definitive treatment and surgical staging with TLH, BSO, SNLS - Mother is power of program technician per brother, will work on getting formal paperwork into chart - Can consider PO progestin if bleeding does increase again in interm - Continue to transfuse as needed - Daily CBC - Consult social work to assist in attaining consent Respiratory Failure, resolving RAMEZ, resolving Thrombocytosis HTN Hx Atrial Fibrillation HLD - Continue home meds Norvasc, lipitor, Hydralazine and coreg per primary - Supplemental O2 as needed - Daily CMP w/mag - Continue Tele - Management per primary - Ensure medical optimization for possibility for procedure during current admission Sacral Wound, Stage 1 - Present on admission to [facility] - Would care consulted per primary Plan discussed with Dr. Rodriguez, who is agreeable. Please page the [facility] DISTANCE LEARNING PROGRAM COORDINATOR ONC Call RES group via Secure Chat for any questions or concerns. Helen Yeung MD 06/12/2025, 9:55 AM [1] No past medical history on file. [2] No past surgical history on file. [3] Not on File [4] Current Facility-Administered Medications: acetaminophen (Tylenol) tablet 650 mg, 650 mg, Oral, q6h PRN OR acetaminophen (Tylenol) suppository 650 mg, 650 mg, Rectal, q6h PRN, Navi Roberts MD amLODIPine (Norvasc) tablet 10 mg, 10 mg, Oral, Daily, Navi Roberts MD, 10 mg at 06/12/25 0835 atorvastatin (Lipitor) tablet 20 mg, 20 mg, Oral, Nightly, Navi Roberts MD, 20 mg at 06/12/25 0111 carvedilol (Coreg) tablet 3.125 mg, 3.125 mg, Oral, BID WC, Navi Roberts MD, 3.125 mg at 06/12/25 08 hydrALAZINE (Apresoline) tablet 10 mg, 10 mg, Oral, 4x daily, Navi Roberts MD, 10 mg at 06/12/25 08 melatonin tablet 3 mg, 3 mg, Oral, Nightly, Navi Rboerts MD, 3 mg at 06/12/25 011 ondansetron ODT (Zofran-ODT) disintegrating tablet 4 mg, 4 mg, Oral, q8h PRN OR ondansetron (Zofran) injection 4 mg, 4 mg, IntraVENous, q6h PRN, Navi Roberts MD polyethylene glycol (PEG) 3350 (Miralax) packet 17 g, 17 g, Oral, Daily PRN, Navi Roberts MD sodium chloride 0.9 % infusion, 5-250 mL/hr, IntraVENous, PRN, Navi Roberts MD sodium chloride 0.9% (NS) flush 5-40 mL, 5-40 mL, IntraVENous, q12h, Navi Roberts MD, 10 mL at 06/12/25 011 sodium chloride 0.9% (NS) flush 5-40 mL, 5-40 mL, IntraVENous, PRN, Navi Roberts MD [5] Current Facility-Administered Medications Medication Dose Route Frequency Provider Last Rate Last Admin acetaminophen (Tylenol) tablet 650 mg 650 mg Oral q6h PRN Navi Roberts MD Or acetaminophen (Tylenol) suppository 650 mg 650 mg Rectal q6h PRN Navi Roberts MD amLODIPine (Norvasc) tablet 10 mg 10 mg Oral Daily Navi Roberts MD 10 mg at 06/12/25834 atorvastatin (Lipitor) tablet 20 mg 20 mg Oral Nightly Navi Roberts MD 20 mg at 06/12/25110 carvedilol (Coreg) tablet 3.125 mg 3.125 mg Oral BID Navi Roberts MD 3.125 mg at 06/12/25 0835 hydrALAZINE (Apresoline) tablet 10 mg 10 mg Oral 4x daily Navi Roberts MD 10 mg at 06/12/25 0835 melatonin tablet 3 mg 3 mg Oral Nightly Navi Roberts MD 3 mg at 06/12/25 0111 ondansetron ODT (Zofran-ODT) disintegrating tablet 4 mg 4 mg Oral q8h PRN Navi Roberts MD Or ondansetron (Zofran) injection 4 mg 4 mg IntraVENous q6h PRN Navi Roberts MD polyethylene glycol (PEG) 3350 (Miralax) packet 17 g 17 g Oral Daily PRN Navi Roberts MD sodium chloride 0.9 % infusion 5-250 mL/hr IntraVENous PRN Navi Roberts MD sodium chloride 0.9% (NS) flush 5-40 mL 5-40 mL IntraVENous q12h Navi Roberts MD 10 mL at 06/12/25 0110 sodium chloride 0.9% (NS) flush 5-40 mL 5-40 mL IntraVENous PRN Navi Roberts MD Cosigned by David Ortega MD at 06/13/2025 12:59 PM EDT Associated attestation - David Ortega MD - 06/13/2025 12:59 PM EDT Attending Supervising Physician's Attestation Statement I performed a history and physical examination on the patient and discussed the management with the resident physician. I reviewed and agree with the findings and plan as documented in her note. Thankfully, patient's brother was present in her room at the time of my visit and her mother joined us on the phone. We reviewed the endometrial biopsy results - concerning for malignancy. This certainly would fit with the heavy post menopausal bleeding and thickened endometrium. Standard of care discussed - minimally invasive hysterectomy, bilateral salpingo-oophorectomy, sentinel lymphadenectomy. Will plan to proceed with surgery as long as patient is cleared medically. If not medically stable for major surgery, will plan on dilation and curettage and levonorgestrel intrauterine device placement. The risks of surgery were discussed, including but not limited to: bleeding, infection, injury to surrounding structures, anesthesia risks and medical complications. The patient, her brother and mother all had an opportunity to ask questions, all of which were answered to the best of my ability. They are in agreement with the above noted plan. Appreciate the primary service's excellent care of this isabella patient. I spent a total time of 60 minutes reviewing previous notes, test results, obtaining history, communicating results to the patient as well as counseling the patient, documenting clinical information in the patient's electronic medical record and coordinating care for the patient. documented in this encounter [facility] 06-18-2025 Emergency department Note YARELIS Rodriguez documented in this encounter [facility] 06-17-2025 Note [facility] 06-17-2025 Procedure note Images from the original note were not included. AccuCath PIV Procedure Note Indication: poor vascular access with potential need for longer term IV access Location: Right forearm Ultrasound Guidance YES Sterile Technique Maintained Throughout Procedure: Yes Description/Findings: A single lumen, 20 gauge, 2.5 inch AccuCath Frederick PIV was inserted. Blood return was noted and the catheter flushed easily. CHG dressing was applied. Estimated Blood Loss: < 5mL Complications: No apparent complications Proceduralist: I personally performed the procedure documented as signed by this procedure note. Director Of Revenue Cycle Management(s): Not applicable documented in this encounter [facility] 06-13-2025 Note Surgeon: Jennifer Case# [id number] Procedure: TLH psb BSO. SLN Sx Date: Monday 06/18 Time: 1300 Location: [facility] outpt CPT: 59819, 43606 ICD-10: C54.1 Special Equipment: n/a PAT: n/a Submitted auth thru insurance portal, awaiting determination. [facility] 06-11-2025 Note [facility] 06-11-2025 History and physical note Attending History and Physical Admit Date: 06/11/2025 PCP: No primary care provider on file. CHIEF COMPLAINT: Vaginal Bleeding History Obtained From: The patient & EHR HISTORY OF PRESENT ILLNESS: Nacny is a 59 y.o. female with with PMH below who got transferred from the OSH to the [facility] for further evaluation and management of vaginal bleeding concerning for endometrial cancer. Per Sign Out: Pt has been hospitalized for 21 days at [facility] inpatient on PCU. Pt initially presented with altered mental status and hemoglobin of 3.6 and lactic of 6.7. Pt was found to have extensive vaginal bleeding, was intubated and received 4 units of PRBCs. - EGD on the 05/23 showed non bleeding ulcers. - CA 125 is elevated at 87. - Pt developed respiratory distress 06/04 requiring BIPAP and was put on IV lasix, showed some improvement but ultimately had to discontinue the lasix due to creatine increases (1.5 to 1.75). - The ICU team at [facility] had reviewed documentation previously and cleared her for PCU. - Prior to the Tx, Pt was satting well on 2-4L. Hemoglobin was 7.4 and has been stable. No active bleeding. - The medical team at the OSH requested transfer for higher level of care. Upon arrival to the [facility], the pt was HDS, afebrile, satting well on 2L. The initial workup at the [facility] pending Upon interviewing, the pt was lying on the bed in NAD. Pt is A&Ox2. Pt reports having vaginal bleeding. Past Medical History: Medical History[1] Past Surgical History: Surgical History[2] Social History: Social History Socioeconomic History Marital status: Single Spouse name: Not on file Number of children: Not on file Years of education: Not on file Highest education level: Not on file Occupational History Not on file Tobacco Use Smoking status: Not on file Smokeless tobacco: Not on file Substance and Sexual Activity Alcohol use: Not on file Drug use: Not on file Sexual activity: Not on file Other Topics Concern Not on file Social History Narrative Not on file Social Drivers of Health Financial Resource Strain: Not on file Food Insecurity: Not on file Transportation Needs: Not on file Physical Activity: Not on file Stress: Not on file Social Connections: Not on file Intimate Partner Violence: Not on file Housing Stability: Not on file Family History: Family History[3] Medications Prior to Admission: Current Medications[4] Allergies: Allergies[5] REVIEW OF SYSTEMS: NEG with pert pos in HPI Vitals: BP 131/99 (BP Location: Left arm, Patient Position: Lying) Pulse 65 Temp 36.9 C (98.5 F) (Temporal) Resp 17 Wt 169 lb 12.8 oz (77 kg) SpO2 94% BMI Classification: There is no height or weight on file to calculate BMI. Pulse Ox: SpO2 Av % Min: 94 % Max: 94 % Supplemental O2: PHYSICAL EXAM: Physical Exam Vitals and nursing note reviewed. Constitutional: Appearance: She is obese. Cardiovascular: Pulses: Normal pulses. Pulmonary: Effort: Pulmonary effort is normal. No respiratory distress. Comments: On NC Abdominal: General: Abdomen is flat. Bowel sounds are normal. Palpations: Abdomen is soft. Neurological: Mental Status: She is alert. She is disoriented. Comments: A&Ox2 Rt Hemiparesis DATA: CBC: No results for input(s): "WBC", "RBC", "HGB", "HCT", "MCV", "RDW", "PLT" in the last 72 hours. BMP:No results for input(s): "NA", "K", "CL", "CO2", "BUN", "CREATININE", "GLUCOSE", "CALCIUM", "ANIONGAP" in the last 72 hours. LIVER PROFILE:No results for input(s): "AST", "ALT", "BILITOT", "ALKPHOS", "PROT" in the last 72 hours. No lab exists for component: LABALBU PT/INR: No results for input(s): "PROTIME", "INR" in the last 72 hours. CARDIAC ENZYMES: No results for input(s): "TROPONINI" in the last 72 hours. I reviewed: [x] laboratory results [x] radiographic results At the time of today's encounter. Pt was advised of the results. Data: Per HPI (LOW: 2x CAT1 or independent historian MOD: 3x CAT1 or 1x CAT3 EXTENSIVE: 3x CAT1 and 1x CAT3) Assessment Discussed management with the ED provider and agree with hospitalization. Acute, acute on chronic, unstable/uncontrolled chronic problems/diagnoses: - Vaginal Bleeding - Acute Respiratory Failure - Elevated CA-125 Stable chronic problems affecting care, new non-acute diagnoses: SEE HPI - Developmental delay - CVA resulting in Rt Hemiparesis Plan As a result of the above findings & factors, the following mgmt was pursued: - CBC, CMP, Mg, Phos - T&S - NPO - Gynecology consult - Request OSH records - AM labs, replace lytes prn - PT/OT/CM/SW - Delirium precautions: increase activity and limit nighttime disturbances - DVT prophylaxis: SCDs and encourage ambulation Complexity: Acute illness or injury posing a threat to life or body function (HIGH). Risk: Admission to hospital-level care was considered or occurred (HIGH). Advance Directive: Prior Anticipated Discharge - Date - TBD - Location - TBD - Pending the following - improvement in acute issue leading to hosp No emergency contact information on file. ------- TOTAL time spent on H&P: 55 minutes were spent in patient care for this admission (including face to face, chart review, including discussion with ED providers and/or review of their notes, labs and images). Navi Roberts MD Division of Hospitalist Medicine Acute care [facility] [1] No past medical history on file. [2] No past surgical history on file. [3] No family history on file. [4] Current Facility-Administered Medications: acetaminophen (Tylenol) tablet 650 mg, 650 mg, Oral, q6h PRN OR acetaminophen (Tylenol) suppository 650 mg, 650 mg, Rectal, q6h PRN, Navi Roberts MD amLODIPine (Norvasc) tablet 10 mg, 10 mg, Oral, Daily, Navi Robetrs MD atorvastatin (Lipitor) tablet 20 mg, 20 mg, Oral, Nightly, Navi Rboerts MD, 20 mg at 06/12/25 011 carvedilol (Coreg) tablet 3.125 mg, 3.125 mg, Oral, BID WC, Navi Roberts MD hydrALAZINE (Apresoline) tablet 10 mg, 10 mg, Oral, 4x daily, Navi Roberts MD, 10 mg at 06/12/25110 melatonin tablet 3 mg, 3 mg, Oral, Nightly, Navi Roberts MD, 3 mg at 06/12/25 011 ondansetron ODT (Zofran-ODT) disintegrating tablet 4 mg, 4 mg, Oral, q8h PRN OR ondansetron (Zofran) injection 4 mg, 4 mg, IntraVENous, q6h PRN, Navi Roberts MD polyethylene glycol (PEG) 3350 (Miralax) packet 17 g, 17 g, Oral, Daily PRN, Navi Roberts MD sodium chloride 0.9 % infusion, 5-250 mL/hr, IntraVENous, PRN, Navi Roberts MD sodium chloride 0.9% (NS) flush 5-40 mL, 5-40 mL, IntraVENous, q12h, Navi Roberts MD, 10 mL at 06/12/25 011 sodium chloride 0.9% (NS) flush 5-40 mL, 5-40 mL, IntraVENous, PRN, Navi Roberts MD [5] Not on File documented in this encounter [facility] 06-11-2025 Discharge summary Note Date/Time June 11, 2025 1:42pm [facility] Medical Records Department [address] [place] [address] Discharge Summary 06/11/25 1335 MR#: [id number] Acct: [id number] Name: NANCY DELACRUZ Rep #:[id number] : 1965 59 From: Ziggy Gautam PCP: Dr. Sabrina Duran DO Status:ADM IN Location: [facility] [id number] Providers Date of Admission: 05/21/25 Date of Discharge: 06/11/25 Primary Care Physician: Dr. Sabrina Duran, DO Consultations 05/21/25 12:35 Consult: Gastroenterology Routine Consulting Provider: [facility] Reason for Consult: anemia EMERGENT Consult: No MD Notified: Yes Date Notified: 05/21/25 Time Notified: 11:42 Method of Notification: Text 05/21/25 13:20 Consult: [facility] Department Operator / Pulmonary Medicine Routine Consulting Provider: Intensivists/Pulmonary Med Reason for Consult: shock, anemia, hypoxia EMERGENT Consult: No MD Notified: Yes Date Notified: 05/21/25 Time Notified: 13:25 Method of Notification: Verbal 06/01/25 13:17 Consult: CLOTHING MAN Routine Consulting Provider: Eloisa More Reason for Consult: vaginal bleeding; transvaginal USG showed thickened endometrium of 21.4mm EMERGENT Consult: No MD Notified: Yes Date Notified: 06/01/25 Time Notified: 13:18 Method of Notification: Text 06/02/25 08:39 Consult: Cardiology Routine Consulting Provider: Puja Almeida Reason for Consult: recurrent nonsustained vtach EMERGENT Consult: No MD Notified: Yes Date Notified: 06/02/25 Time Notified: 08:39 Method of Notification: Text Reason For Visit: SHOCK Diagnosis Discharge Diagnosis (1) Hypernatremia: Status: Acute Code(s): E87.0 - Hyperosmolality and hypernatremia (2) Dysphagia: Status: Acute Code(s): R13.10 - Dysphagia, unspecified (3) (HFpEF) heart failure with preserved ejection fraction: Status: Acute Code(s): I50.30 - Unspecified diastolic (congestive) heart failure (4) Acute blood loss anemia: Status: Acute Code(s): D62 - Acute posthemorrhagic anemia (5) Atrial fibrillation with RVR: Status: Acute Code(s): I48.91 - Unspecified atrial fibrillation Plan 59-year-old female was admitted with very severe anemia, hemoglobin 3.6 but source of bleeding was found to be uterine cancer/endometrioid adenocarcinoma. Then hospital course upon complicated with acute hypoxic respiratory failure that required BiPAP then intubation diuresis and extubated. #Acute hypoxic respiratory failure * thought to be due to CHF and pneumonia * on zosyn. Was intubated and subsequently on 05/25/2025. * now down to 2L of oxygen. * Titrate oxygen to maintain sats above 90%. Breathing treatments with bronchodilators. * she completed a course of antibiotic 06/10: Vitals shows an pulse ox 95% on 3 L of oxygen. Blood pressure 121/80. BiPAP at night and during naps breathing on baseline. Awaiting transfer to [email or web address] 06/11: Hemodynamically, she is in a better condition. I talked to the patient's brother on the phone, gave clinical update. She is still awaiting transfer to [facility]. Her brother was concerned of severe anemia and wants to be transferred to tertiary care for evaluation of endometrial cancer as the endometrial biopsy reported atypical hyperplasia with endometrioid adenocarcinoma. I talked to the hospitalist colleague in [facility] and gave the clinical update. Patient is still severely anemic hemoglobin 7.2 therefore requires definitive treatment otherwise high chances ofreadmission. She will be transferred to [facility] sometime in the evening today. #Acute on chronic HFpEF * EF is normal at 60%, and mild concentric LVH and apical hypertrophic cardiomyopathy present. * received IV lasix 40mg x 1. * pro BNP: 55403 * on 3L oxygen today. Titrate oxygen to maintain sats >90% * breathing treatment with bronchodilators. * She is in cumulative positive balance by 5.945L * On p.o. Lasix 06/10: Kidney function shows elevation of creatinine between 1.73-1.85 depending upon the fluid hemodynamics. Today 1.7/35.08. Continue with IV Lasix for diuresis. Furosemide 40 mg IV daily continued. Monitor kidney function. 06/11: Continue Lasix. Creatinine improving. #Atrial fibrillation with RVR * new diagnosis. not anticoagulated. * now on metoprolol. RVR has resolved. #Diarrhea * Enteric pathogen and C Diff screen negative. * diarrhea has largely resolved #Hypokalemia: Resolved K is 3.8. Will give PO potassium to keep K >4 #Acute blood loss anemia secondary to concern for uterine cancer * Initial Hb on admission was 3.6. * transfused with 4 units of PRBCs. * Hb today is 7.8 * received IV iron. On IV PPI * EGD showed non bleeding cratered duodenal ulcers and multiple linear gastric ulcers (nonbleeding) * iron studies showed iron deficiency. * transfuse to keep HB >7 * to have repeat EGD in 8-12 weeks to evaluate for healing of gastric ulcers and obtain biopsies. * Noted to have vaginal bleeding. Transvaginal ultrasound done showed endometrial thickening with clinical correlation recommended. Thickness noted to be abnormal for patient's postmenopausal state. * Gynecology reviewed patient and did a bedside endometrial biopsy. CA 129 and CEA antigens ordered per gynecology * Per Dr. More, she is concerned about cancer and if this is proven patient will be referred to DISTANCE LEARNING PROGRAM COORDINATOR oncologist in [place] on outpatient basis. * Ca 125 elevated at eight 7.4 although CEA antigen is normal at 1.3. Will need follow-up on outpatient basis with gynecology 06/10: As mentioned above endometrial pathology came back as atypical hyperplasiaand suspicion endometrioid adenocarcinoma. Dr. 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 H&H 7.3/25.6%. Platelet count 400 41K. WBC count normal. Patient not on antiplatelet/anticoagulant agent 06/11: Hemoglobin above 7 g, still between 7-8 #Nonsustained V. tach: * was on carvedilol but cardiology consulted and recommended discontinuing carvedilol and starting on metoprolol 50mg bid. Due to patient's low BP, was started on PO metoprolol 12.5mg bid. * Will increase to 25mg bid today. * to keep potassium >4 and magnesium >2. #Right ankle inversion * PT/OT worked with patient today and recommended ankle brace o/a of the right ankle inversion * PT/OT On board. fall precautions * case management to help facilitate getting a right ankle brace when they return tomorrow. #Dysphagia * speech therapy on board. * now on modified diet by speech therapy * Barium swallow showed moderate-severe oropharyngeal dysphagia 06/11: Needs feeding by 8. #RAMEZ on CKD: Resolved. Cr is 1.30 today, which is around his baseline. Creatinine is variable depending upon the fluid hemodynamics. Today creatinine 1.7. #Hypernatremia: resolved. #History of stroke: not on anticoagulation or antiplatelets. s/p right sided hemiparesis. #Hypertension: on amlodipine, carvedilol and hydralazine which are on hold due to hypotension. Carvedilol resumed due to afib and nonsustained vtach. Carvedilol now switched to PO metoprolol per cardiology DVT: SCDs Patient is being transferred to [facility]. Transfer formalities including paper signed Total time spent, exact 35 minutes on discharge meds reconciliation, examination, coordination of care with nurses and ancillary staff, review of imaging and blood test and discussion with the patient on follow-up instructions. Medications at Discharge Home Medications amlodipine 10 mg tablet 10 mg PO DAILY 05/21/25 carvedilol 3.125 mg tablet 3.125 mg PO BID 05/21/25 hydralazine 100 mg tablet 100 mg PO TID 05/21/25 simvastatin 20 mg tablet 20 mg PO DAILY 05/21/25 Physical Exam Narrative Please see the progress note on the same date. I talked to the patient's brother over the phone. Weight / BMI Weight Weight: 174 lb 2.643 oz Body Mass Index (BMI) 29.0 ABG / Lab / Microbiology Data 06/11/25 04:44 06/11/25 04:44 Laboratory: Laboratory Results - last 24 hr 06/11/25 04:44: WBC 7.2, RBC 3.28 L, Hgb 7.4 L, Hct 26.0 L, MCV 79.3 L, MCH 22.6L, MCHC 28.5 L, RDW Std Deviation 71.8 H, RDW Coeff of Federico 26.5 H, Plt Count 462H, MPV 10.2, Immature Gran % (Auto) 0.800, Neut % (Auto) 68.7, Lymph % (Auto) 18.7 L, [place] % (Auto) 8.6, Eos % (Auto) 2.5, Baso % (Auto) 0.7, Absolute Neuts (auto) 4.9, Absolute Lymphs (auto) 1.34, Nucleated RBC % 0, Differential CommentSCANNED, Hypochromasia 1+, Anisocytosis 2+, Sodium 139, Potassium 3.9, Chloride 101, Carbon Dioxide 27.9, Anion Gap 11, BUN 38 H, Creatinine 1.57 H, Estim CreatClear Calc 39.09 L, Est GFR (MDRD) Non-Af 37 L, BUN/Creatinine Ratio 23.9 H, Glucose 92, Calcium 8.1 Microbiology: Microbiology 05/29/25 10:00 Stool Enteric Bacteriology - Final 05/29/25 10:00 Stool Clostridioides difficile (PCR) - Final 05/21/25 15:15 Blood Culture (Wb) - Central Line Blood Culture - Final No growth in 5 days. 05/21/25 14:15 Sputum, Induced/Lukens Gram Stain - Final 05/21/25 14:15 Sputum, Induced/Lukens Respiratory Culture - Final 05/21/25 17:40 Urine Catheter - Fiore Urine Culture - Final Escherichia coli D/C Instructions DC O2, CPAP, BIPAP Needs Home O2 Discharge instructions: Yes Type of respiratory needs?: Oxygen Oxygen frequency: Continuous Continuous oxygen liters per minute: 2 DC home with Oxygen: Yes Home O2 MD Review: I have reviewed the oxygen testing, and the patient qualifies for home oxygen equipment and portability. The patient is mobile in the home and the community. Meaningful Use Info Meaningful Use Meaningful Use Diagnoses (Choose all that apply): None applicable Discharge Plan Admission Admit Date/Time: 05/21/25 11:37 Attending Provider: Ziggy Shelton Primary Care Provider: Sabrina Duran Consulting Providers: Ziggy Shelton; Jeffery Mcrae; Swetha Asif; Nayely Sarkar; Mayra Mejía; Saul Brooks; Ruel Mondragon; Tyson Reece; Julian Monsivais; Juvenal Hedrick; Kentrell Cottrell; Jj Ragland; Kassy Shipman; Sadi Andrade; Frankie Conway; Jimi Rdz; Yeimi Allen; Nixon Kitchen; Starr Amaya; Brad Mclean; Pancho Rios; Phi Watson; Errol Nicholas; Kira Silva; Gabrielle Nickerson; Mariano Glasgow; Floyd Bernal; Mike Juarez; Matt Acevedo; Eloisa More; Puja Almeida; Yanet Zhou; Hiren Sanders Discharge Orders/Prescriptions Prescriptions: No Action carvedilol 3.125 mg tablet 3.125 mg PO BID amlodipine 10 mg tablet 10 mg PO DAILY simvastatin 20 mg tablet 20 mg PO DAILY hydralazine 100 mg tablet 100 mg PO TID Referrals / Follow Up: Sabrina Duran DO [Primary Care Provider] - Disposition Disposition (needs filled in before D/C Order can be placed): Acute Care Hospital Charges/Coding Visit Charges Inpatient E&M: 51975 Disch Hosp >30min 06/11/25 1342 <Electronically signed by Ziggy Shelton MD> Cosigner Signature (if applicable): CC: Dr. Sabrina Duran DO; Dr. Ziggy Shelton MD~ Signed [facility] Work Phone: [phone] 397-872909-15-2025 Hospital Discharge instructionsAdditional Instructions Date of Discharge: 06/11/25[facility] Work Phone: [phone]) 814-157909-15-2025 Progress note Author Ziggy Shelton [facility] [facility] Note Date/Time June 11, 2025 11:58am [facility] Medical Records Department [address] [place] [address] Progress Note - Hospitalist 06/11/25 1148 MR#: [id number] Acct: [id number] Name: NANCY DELACRUZ Rep #:[id number] : 1965 59 From: Ziggy Gautam PCP: Dr. Sabrina Duran DO Status:ADM IN Location: [place] [address] Reason for Visit Chief Complaint: altered level of consciousness. Objective Data Objective Data Vital Signs: Vital Signs Temp Pulse Resp BP Pulse Ox O2 Del Method O2 Flow Rate 97.4 F L 83 18 128/92 H 92 Nasal Cannula 4 06/11/25 08:30 06/11/25 09:27 06/11/25 08:30 06/11/25 09:27 06/11/25 09:23 06/11/25 09:23 06/11/25 09:23 FiO2 50 06/10/25 00:27 Oxygen Flow Rate (L/min) 4 Oxygen Delivery Method Nasal Cannula Weight: 174 lb 2.643 oz Body Mass Index (BMI) 29.0 Intake & Output: Intake and Output for Last 24 Hours 0906/10/25 06/11/25 23:59 23:59 23:59 Intake Total 670 / 870 880 / 880 340 / 340 Output Total 1550 / 1725 750 / 1000 1350 / 1350 Balance -880 / -855 130 / -120 -1010 / -1010 Lab / Micro Data 06/11/25 04:44 06/11/25 04:44 Labs: Laboratory Results - last 24 hr 06/11/25 04:44: WBC 7.2, RBC 3.28 L, Hgb 7.4 L, Hct 26.0 L, MCV 79.3 L, MCH 22.6L, MCHC 28.5 L, RDW Std Deviation 71.8 H, RDW Coeff of Federico 26.5 H, Plt Count 462H, MPV 10.2, Immature Gran % (Auto) 0.800, Neut % (Auto) 68.7, Lymph % (Auto) 18.7 L, [place] % (Auto) 8.6, Eos % (Auto) 2.5, Baso % (Auto) 0.7, Absolute Neuts (auto) 4.9, Absolute Lymphs (auto) 1.34, Nucleated RBC % 0, Differential CommentSCANNED, Hypochromasia 1+, Anisocytosis 2+, Sodium 139, Potassium 3.9, Chloride 101, Carbon Dioxide 27.9, Anion Gap 11, BUN 38 H, Creatinine 1.57 H, Estim CreatClear Calc 39.09 L, Est GFR (MDRD) Non-Af 37 L, BUN/Creatinine Ratio 23.9 H, Glucose 92, Calcium 8.1 Micro: Microbiology 05/29/25 10:00 Stool Enteric Bacteriology - Final 05/29/25 10:00 Stool Clostridioides difficile (PCR) - Final 05/21/25 15:15 Blood Culture (Wb) - Central Line Blood Culture - Final No growth in 5 days. 05/21/25 14:15 Sputum, Induced/Lukens Gram Stain - Final 05/21/25 14:15 Sputum, Induced/Lukens Respiratory Culture - Final 05/21/25 17:40 Urine Catheter - Fiore Urine Culture - Final Escherichia coli Physical Exam Narrative Seen and examined Patient on 3-4 l of oxygen. Heart rate controlled, sinus rhythm. Chronic right-sided weakness with contracture at right elbow and knee. She removed bowel yesterday. Waiting for bed at [facility] Physical exam General: Alert, Oriented x3, Cooperative. BMI 28.7 kg/m? HEENT: Atraumatic, PERRLA, EOMI, Normocephalic. Oral: No Gingival or Mucosal Lesions/ Ulcerations Neck: Supple, No JVD, Negative Carotid Bruits Chest wall/Lungs: Air entry diminished in bilateral lung bases. No crepitation/rhonchi Cardiovascular: Regular rate and rhythm, Normal S1,S2, No M/G/R Abdomen: Bowel Sounds Present, Soft, Non Tender, Non-Distended : No dysuria. No renal angle tenderness. No suprapubic tenderness. Extremities: Mild dependent edema, Capillary Refill Less than 3 Seconds Skin: No rashes, No breakdown Musculoskeletal: Contracture in right upper and lower extremity with chronic weakness. LLE 4/5 at left hip and knee joint. Neurological: Cranial nerves II-XII grossly intact, DTR 2+/4. No acute focal neurological deficit. Psych/Mental Status: Normal Affect, Appropriate. Assessment & Plan Assessment/Plan (1) Hypernatremia: (2) Dysphagia: (3) (HFpEF) heart failure with preserved ejection fraction: (4) Acute blood loss anemia: (5) Atrial fibrillation with RVR: PLAN: Plan 59-year-old female was admitted with very severe anemia, hemoglobin 3.6 but source of bleeding was found to be uterine cancer/endometrioid adenocarcinoma. Then hospital course upon complicated with acute hypoxic respiratory failure that required BiPAP then intubation diuresis and extubated. #Acute hypoxic respiratory failure * thought to be due to CHF and pneumonia * on zosyn. Was intubated and subsequently on 05/25/2025. * now down to 2L of oxygen. * Titrate oxygen to maintain sats above 90%. Breathing treatments with bronchodilators. * she completed a course of antibiotic 06/10: Vitals shows an pulse ox 95% on 3 L of oxygen. Blood pressure 121/80. BiPAP at night and during naps breathing on baseline. Awaiting transfer to [email or web address] 06/11: Hemodynamically, she is in a better condition. I talked to the patient's brother on the phone, gave clinical update. She is still awaiting transfer to [facility] but I do not think she needs to go there may be follow-up as an outpatient for subspecialist care. Discussed with the nursing staff for discharge planning #Acute on chronic HFpEF * EF is normal at 60%, and mild concentric LVH and apical hypertrophic cardiomyopathy present. * received IV lasix 40mg x 1. * pro BNP: 11812 * on 3L oxygen today. Titrate oxygen to maintain sats >90% * breathing treatment with bronchodilators. * She is in cumulative positive balance by 5.945L * On p.o. Lasix 06/10: Kidney function shows elevation of creatinine between 1.73-1.85 depending upon the fluid hemodynamics. Today 1.7/35.08. Continue with IV Lasix for diuresis. Furosemide 40 mg IV daily continued. Monitor kidney function. 06/11: Continue Lasix. Creatinine improving. #Atrial fibrillation with RVR * new diagnosis. not anticoagulated. * now on metoprolol. RVR has resolved. #Diarrhea * Enteric pathogen and C Diff screen negative. * diarrhea has largely resolved #Hypokalemia: Resolved K is 3.8. Will give PO potassium to keep K >4 #Acute blood loss anemia secondary to concern for uterine cancer * Initial Hb on admission was 3.6. * transfused with 4 units of PRBCs. * Hb today is 7.8 * received IV iron. On IV PPI * EGD showed non bleeding cratered duodenal ulcers and multiple linear gastric ulcers (nonbleeding) * iron studies showed iron deficiency. * transfuse to keep HB >7 * to have repeat EGD in 8-12 weeks to evaluate for healing of gastric ulcers and obtain biopsies. * Noted to have vaginal bleeding. Transvaginal ultrasound done showed endometrial thickening with clinical correlation recommended. Thickness noted to be abnormal for patient's postmenopausal state. * Gynecology reviewed patient and did a bedside endometrial biopsy. CA 129 and CEA antigens ordered per gynecology * Per Dr. More, she is concerned about cancer and if this is proven patient will be referred to [facility] oncologist in [place] on outpatient basis. * Ca 125 elevated at eight 7.4 although CEA antigen is normal at 1.3. Will need follow-up on outpatient basis with gynecology 06/10: As mentioned above endometrial pathology came back as atypical hyperplasiaand suspicion endometrioid adenocarcinoma. Dr. 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 H&H 7.3/25.6%. Platelet count 400 41K. WBC count normal. Patient not on antiplatelet/anticoagulant agent 06/11: Hemoglobin above 7 g, still between 7-8 #Nonsustained V. tach: * was on carvedilol but cardiology consulted and recommended discontinuing carvedilol and starting on metoprolol 50mg bid. Due to patient's low BP, was started on PO metoprolol 12.5mg bid. * Will increase to 25mg bid today. * to keep potassium >4 and magnesium >2. #Right ankle inversion * PT/OT worked with patient today and recommended ankle brace o/a of the right ankle inversion * PT/OT On board. fall precautions * case management to help facilitate getting a right ankle brace when they return tomorrow. #Dysphagia * speech therapy on board. * now on modified diet by speech therapy * Barium swallow showed moderate-severe oropharyngeal dysphagia 06/11: Needs feeding by 8. #RAMEZ on CKD: Resolved. Cr is 1.30 today, which is around his baseline. Creatinine is variable depending upon the fluid hemodynamics. Today creatinine 1.7. #Hypernatremia: resolved. #History of stroke: not on anticoagulation or antiplatelets. s/p right sided hemiparesis. #Hypertension: on amlodipine, carvedilol and hydralazine which are on hold due to hypotension. Carvedilol resumed due to afib and nonsustained vtach. Carvedilol now switched to PO metoprolol per cardiology DVT: SCDs Charges/Coding Visit Charges Inpatient E&M: 14208 Subs Hosp L2 06/11/25 1158 <Electronically signed by Ziggy Shelton MD> Cosigner Signature (if applicable): CC: ~ Signed [facility] Work Phone: [phone]) 412-958609-15-2025 [facility]09-14-2025 History of Present illness Narrative* Gerry Malik MD - 06/10/2025 9:22 PM EDT This encounter was created by mistake documented in this [facility]09-14-2025 Progress note Author Ziggy Shelton [facility] Note Date/Time June 10, 2025 9:26am [facility] Medical Records Department [address] [place] [address] Progress Note - Hospitalist 06/10/25 0742 MR#: [id number] Acct: [id number] Name: NANCY DELACRUZ Rep #:[id number] : 1965 59 From: Ziggy Gautam PCP: Dr. Sabrina Duran, DO Status:ADM IN Location: [place] [address] Reason for Visit Chief Complaint: altered level of consciousness. Objective Data Objective Data Vital Signs: Vital Signs Temp Pulse Resp BP Pulse Ox O2 Del Method O2 Flow Rate 97.9 F 77 18 104/63 92 Nasal Cannula 4 06/10/25 03:14 06/10/25 03:14 06/10/25 03:14 06/10/25 03:14 06/10/25 07:30 06/10/25 07:30 06/10/25 07:30 FiO2 50 06/10/25 00:27 Oxygen Flow Rate (L/min) 4 Oxygen Delivery Method Nasal Cannula Weight: 172 lb 2.896 oz Body Mass Index (BMI) 28.6 Intake & Output: Intake and Output for Last 24 Hours 06/08/25 06/09/25 06/10/25 23:59 23:59 23:59 Intake Total 1180 / 1180 670 / 870 200 / 200 Output Total 1500 / 1500 1550 / 1725 400 / 400 Balance -320 / -320 -880 / -855 -200 / -200 Lab / Micro Data 06/10/25 03:06 06/10/25 03:06 Labs: Laboratory Results - last 24 hr 06/10/25 03:06: WBC 6.8, RBC 3.23 L, Hgb 7.3 L, Hct 25.6 L, MCV 79.3 L, MCH 22.6L, MCHC 28.5 L, RDW Std Deviation 71.7 H, RDW Coeff of Federico 26.6 H, Plt Count 441, MPV 10.2, Immature Gran % (Auto) 0.600, Neut % (Auto) 67.4, Lymph % (Auto) 20.9, [place] % (Auto) 8.1, Eos % (Auto) 2.1, Baso % (Auto) 0.9, Absolute Neuts (auto) 4.6, Absolute Lymphs (auto) 1.41, Nucleated RBC % 0, Hypochromasia 3+, Anisocytosis 2+, Sodium 139, Potassium 4.0, Chloride 102, Carbon Dioxide 26.2, Anion Gap 11, BUN 44 H, Creatinine 1.74 H, Estim Creat Clear Calc 35.08 L, Est GFR (MDRD) Non-Af 33 L, BUN/Creatinine Ratio 25.1 H, Glucose 95, Calcium 8.0, Phosphorus 3.6, Magnesium 2.1 Micro: Microbiology 05/29/25 10:00 Stool Enteric Bacteriology - Final 05/29/25 10:00 Stool Clostridioides difficile (PCR) - Final 05/21/25 15:15 Blood Culture (Wb) - Central Line Blood Culture - Final No growth in 5 days. 05/21/25 14:15 Sputum, Induced/Lukens Gram Stain - Final 05/21/25 14:15 Sputum, Induced/Lukens Respiratory Culture - Final 05/21/25 17:40 Urine Catheter - Fiore Urine Culture - Final Escherichia coli Physical Exam Narrative Seen and examined Patient on 3-4 l of oxygen. Heart rate controlled, sinus rhythm. Chronic right-sided weakness with contracture at right elbow and knee. She removed bowel yesterday. Waiting for bed at [facility] Physical exam General: Alert, Oriented x3, Cooperative. BMI 28.7 kg/m? HEENT: Atraumatic, PERRLA, EOMI, Normocephalic. Oral: No Gingival or Mucosal Lesions/ Ulcerations Neck: Supple, No JVD, Negative Carotid Bruits Chest wall/Lungs: Air entry diminished in bilateral lung bases. No crepitation/rhonchi Cardiovascular: Regular rate and rhythm, Normal S1,S2, No M/G/R Abdomen: Bowel Sounds Present, Soft, Non Tender, Non-Distended : No dysuria. No renal angle tenderness. No suprapubic tenderness. Extremities: Mild dependent edema, Capillary Refill Less than 3 Seconds Skin: No rashes, No breakdown Musculoskeletal: Contracture in right upper and lower extremity with chronic weakness. LLE 4/5 at left hip and knee joint. Neurological: Cranial nerves II-XII grossly intact, DTR 2+/4. No acute focal neurological deficit. Psych/Mental Status: Normal Affect, Appropriate. Assessment & Plan Assessment/Plan (1) Hypernatremia: (2) Dysphagia: (3) (HFpEF) heart failure with preserved ejection fraction: (4) Acute blood loss anemia: (5) Atrial fibrillation with RVR: PLAN: Plan 59-year-old female was admitted with very severe anemia, hemoglobin 3.6 but source of bleeding was found to be uterine cancer/endometrioid adenocarcinoma. Then hospital course upon complicated with acute hypoxic respiratory failure that required BiPAP then intubation diuresis and extubated. #Acute hypoxic respiratory failure * thought to be due to CHF and pneumonia * on zosyn. Was intubated and subsequently on 05/25/2025. * now down to 2L of oxygen. * Titrate oxygen to maintain sats above 90%. Breathing treatments with bronchodilators. * she completed a course of antibiotic 06/10: Vitals shows an pulse ox 95% on 3 L of oxygen. Blood pressure 121/80. BiPAP at night and during naps breathing on baseline. Awaiting transfer to [facility] [[email or web address] #Acute on chronic HFpEF * EF is normal at 60%, and mild concentric LVH and apical hypertrophic cardiomyopathy present. * received IV lasix 40mg x 1. * pro BNP: 47742 * on 3L oxygen today. Titrate oxygen to maintain sats >90% * breathing treatment with bronchodilators. * She is in cumulative positive balance by 5.945L * On p.o. Lasix 06/10: Kidney function shows elevation of creatinine between 1.73-1.85 depending upon the fluid hemodynamics. Today 1.7/35.08. Continue with IV Lasix for diuresis. Furosemide 40 mg IV daily continued. Monitor kidney function. #Atrial fibrillation with RVR * new diagnosis. not anticoagulated. * now on metoprolol. RVR has resolved. #Diarrhea * Enteric pathogen and C Diff screen negative. * diarrhea has largely resolved #Hypokalemia: Resolved K is 3.8. Will give PO potassium to keep K >4 #Acute blood loss anemia secondary to concern for uterine cancer * Initial Hb on admission was 3.6. * transfused with 4 units of PRBCs. * Hb today is 7.8 * received IV iron. On IV PPI * EGD showed non bleeding cratered duodenal ulcers and multiple linear gastric ulcers (nonbleeding) * iron studies showed iron deficiency. * transfuse to keep HB >7 * to have repeat EGD in 8-12 weeks to evaluate for healing of gastric ulcers and obtain biopsies. * Noted to have vaginal bleeding. Transvaginal ultrasound done showed endometrial thickening with clinical correlation recommended. Thickness noted to be abnormal for patient's postmenopausal state. * Gynecology reviewed patient and did a bedside endometrial biopsy. CA 129 and CEA antigens ordered per gynecology * Per Dr. More, she is concerned about cancer and if this is proven patient will be referred to [facility] oncologist in [place] on outpatient basis. * Ca 125 elevated at eight 7.4 although CEA antigen is normal at 1.3. Will need follow-up on outpatient basis with gynecology 06/10: As mentioned above endometrial pathology came back as atypical hyperplasiaand suspicion endometrioid adenocarcinoma. Dr. 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 H&H 7.3/25.6%. Platelet count 400 41K. WBC count normal. Patient not on antiplatelet/anticoagulant agent #Nonsustained V. tach: * was on carvedilol but cardiology consulted and recommended discontinuing carvedilol and starting on metoprolol 50mg bid. Due to patient's low BP, was started on PO metoprolol 12.5mg bid. * Will increase to 25mg bid today. * to keep potassium >4 and magnesium >2. #Right ankle inversion * PT/OT worked with patient today and recommended ankle brace o/a of the right ankle inversion * PT/OT On board. fall precautions * case management to help facilitate getting a right ankle brace when they return tomorrow. #Dysphagia * speech therapy on board. * now on modified diet by speech therapy * Barium swallow showed moderate-severe oropharyngeal dysphagia #RAMEZ on CKD: Resolved. Cr is 1.30 today, which is around his baseline. Creatinine is variable depending upon the fluid hemodynamics. Today creatinine 1.7. #Hypernatremia: resolved. #History of stroke: not on anticoagulation or antiplatelets. s/p right sided hemiparesis. #Hypertension: on amlodipine, carvedilol and hydralazine which are on hold due to hypotension. Carvedilol resumed due to afib and nonsustained vtach. Carvedilol now switched to PO metoprolol per cardiology DVT: SCDs Charges/Coding Visit Charges Inpatient E&M: 75254 Subs Hosp L2 09/14/25 0926 <Electronically signed by Ziggy Shelton MD> Cosigner Signature (if applicable): CC: ~ Signed [facility] Work Phone: 1(396) 318-905509-13-2025 Progress note Author Hiren Sanders [facility] Note Date/Time June 09, 2025 11:31am [facility] Medical Records Department [address] [place] [address] Progress Note - Hospitalist 06/09/251127 MR#: [id number] Acct: [id number] Name: NANCY DELACRUZ Rep #:[id number] : 1965 59 From: Hiren suarez MD PCP: Dr. Sabrina Duran, DO Status:ADM IN Location: [place] [address] Subjective Subjective Oxygen requirements have stabilized at 5 L nasal cannula. Continue to wait for bed availability at tertiary center though if hemoglobin stabilizes and her respiratory status remains stable or improved could potentially discharge home Objective Data Objective Data Vital Signs: Vital Signs Temp Pulse Resp BP Pulse Ox O2 Del Method O2 Flow Rate 98.5 F 109 H 18 109/74 96 Nasal Cannula 3 06/09/25 08:00 06/09/25 10:04 06/09/25 08:00 06/09/25 10:04 06/09/25 08:00 06/09/25 09:53 06/09/25 09:53 FiO2 50 06/08/25 23:46 Oxygen Flow Rate (L/min) 3 Oxygen Delivery Method Nasal Cannula Weight: 184 lb 15.485 oz Body Mass Index (BMI) 30.7 Intake & Output: Intake and Output for Last 24 Hours 06/08/25 06/09/25 06/10/25 03:59 03:59 03:59 Intake Total 720 / 720 980 / 980 100 / 100 Output Total 1050 / 1050 1850 / 1850 150 / 150 Balance -330 / -330 -870 / -870 -50 / -50 Lab / Micro Data 06/09/25 05:20 06/09/25 05:20 Labs: Laboratory Results - last 24 hr 06/09/25 05:20: WBC 6.2, RBC 3.20 L, Hgb 7.2 L, Hct 25.3 L, MCV 79.1 L, MCH 22.5L, MCHC 28.5 L, RDW Std Deviation 72.2 H, RDW Coeff of Federico 26.8 H, Plt Count 432, MPV 10.3, Immature Gran % (Auto) 0.300, Neut % (Auto) 68.0, Lymph % (Auto) 20.0, [place] % (Auto) 8.9, Eos % (Auto) 1.8, Baso % (Auto) 1.0, Absolute Neuts (auto) 4.2, Absolute Lymphs (auto) 1.23, Nucleated RBC % 0, Hypochromasia 1+, Anisocytosis 1+, Sodium 143, Potassium 3.9, Chloride 104, Carbon Dioxide 26.9, Anion Gap 12, BUN 43 H, Creatinine 1.85 H, Estim Creat Clear Calc 34.16 L, Est GFR (MDRD) Non-Af 31 L, BUN/Creatinine Ratio 23.4 H, Glucose 89, Calcium 8.0 Micro: Microbiology 05/29/25 10:00 Stool Enteric Bacteriology - Final 05/29/25 10:00 Stool Clostridioides difficile (PCR) - Final 05/21/25 15:15 Blood Culture (Wb) - Central Line Blood Culture - Final No growth in 5 days. 05/21/25 14:15 Sputum, Induced/Lukens Gram Stain - Final 05/21/25 14:15 Sputum, Induced/Lukens Respiratory Culture - Final 05/21/25 17:40 Urine Catheter - Fiore Urine Culture - Final Escherichia coli Physical Exam Narrative General: Alert, not really communicative HEENT: Atraumatic, PERRLA, EOMI, Normocephalic Oral: Moist Mucosa Neck: Supple, No JVD Lungs: Diminished, Normal air movement, No rhonchi, No wheeze, No rales Cardiovascular: Regular rate, Regular Rhythm, Normal S1, Normal S2, No murmurs Abdomen: Soft, Non Tender, Non-Distended, No Hepato-splenomegaly Extremities: Edema, Capillary Refill Less than 3 Seconds Skin: No rashes, No breakdown Musculoskeletal: No Tenderness to Palpation of Joints or Extremities Neurological: Chronic neurological changes with limited use of her right arm Psych/Mental Status: Normal affect, appears to be at her baseline Assessment & Plan Assessment/Plan (1) Hypernatremia: (2) Dysphagia: (3) (HFpEF) heart failure with preserved ejection fraction: (4) Acute blood loss anemia: (5) Atrial fibrillation with RVR: PLAN: Plan #Acute hypoxic respiratory failure * thought to be due to CHF and pneumonia * on zosyn. Was intubated and subsequently on 05/25/2025. * now down to 2L of oxygen. * Titrate oxygen to maintain sats above 90%. Breathing treatments with bronchodilators. * she completed a course of antibiotic 06/04/2025: Increased oxygen requirements today requiring BiPAP. Unclear as to what the etiology is however she does appear little bit volume overloaded so we will increase her Lasix dosing to IV twice daily 06/05/2025: Will attempt transfer to a tertiary care center at the request of family. In the meantime we will consult pulmonology for assistance. Will discontinue Lasix as her creatinine has increased again to 1.74 06/06/2025: Creatinine is 1.75 today. Oxygen requirements are down to 6 L nasal cannula. Awaiting transfer to [facility] 06/07/2025: Awaiting transfer. Creatinine has stabilized, we will trial her on daily IV dosing of Lasix to help improve her oxygen requirements. Will continueto encourage BiPAP use at night and with sleep 06/08/2025: Awaiting transfer 06/09/2025: Awaiting transfer #Acute on chronic HFpEF * EF is normal at 60%, and mild concentric LVH and apical hypertrophic cardiomyopathy present. * received IV lasix 40mg x 1. * pro BNP: 49122 * on 3L oxygen today. Titrate oxygen to maintain sats >90% * breathing treatment with bronchodilators. * She is in cumulative positive balance by 5.945L * On p.o. Lasix 06/04/2025: Continue with IV Lasix for diuresis 06/05/2025: Will discontinue Lasix secondary to rise in her creatinine 06/07/2025: Will resume daily Lasix monitor renal function 06/09/2025: Renal function has worsened to 1.85 if it continues to climb we will have to discontinue her Lasix #Atrial fibrillation with RVR * new diagnosis. not anticoagulated. * now on metoprolol. RVR has resolved. #Diarrhea * Enteric pathogen and C Diff screen negative. * diarrhea has largely resolved #Hypokalemia: Resolved K is 3.8. Will give PO potassium to keep K >4 #Acute blood loss anemia secondary to concern for uterine cancer * Initial Hb on admission was 3.6. * transfused with 4 units of PRBCs. * Hb today is 7.8 * received IV iron. On IV PPI * EGD showed non bleeding cratered duodenal ulcers and multiple linear gastric ulcers (nonbleeding) * iron studies showed iron deficiency. * transfuse to keep HB >7 * to have repeat EGD in 8-12 weeks to evaluate for healing of gastric ulcers and obtain biopsies. * Noted to have vaginal bleeding. Transvaginal ultrasound done showed endometrial thickening with clinical correlation recommended. Thickness noted to be abnormal for patient's postmenopausal state. * Gynecology reviewed patient and did a bedside endometrial biopsy. CA 129 and CEA antigens ordered per gynecology * Per Dr. More, she is concerned about cancer and if this is proven patient will be referred to [facility] oncologist in [place] on outpatient basis. * Ca 125 elevated at eight 7.4 although CEA antigen is normal at 1.3. Will need follow-up on outpatient basis with gynecology 06/04/2025: Hemoglobin appears stabilized at 7.8, will recheck in the morning. Will discuss with family about transfer given the severity of her potential uterine cancer with her continued bleeding as well as now her increased oxygen requirements and respiratory status. 06/05/2025: Hemoglobin is 7.2, this could indicate a recurrent bleed versus equalization versus just normal lab variance however given her recent history wewill go ahead and provide her with a dose of Venofer and recheck hemoglobin in the morning pending transfer to a tertiary center 06/07/2025: Pathology with atypical hyperplasia and suspected adenocarcinoma, awaiting transfer to a higher level of care for possible surgical intervention given the fact that her hemoglobin continues to drop and is currently 7.1 06/08/2025: Hemoglobin 7.2 06/09/2025: Hemoglobin is 7.2, she is iron deficient will continue with another dose of Venofer today #Nonsustained V. tach: * was on carvedilol but cardiology consulted and recommended discontinuing carvedilol and starting on metoprolol 50mg bid. Due to patient's low BP, was started on PO metoprolol 12.5mg bid. * Will increase to 25mg bid today. * to keep potassium >4 and magnesium >2. #Right ankle inversion * PT/OT worked with patient today and recommended ankle brace o/a of the right ankle inversion * PT/OT On board. fall precautions * case management to help facilitate getting a right ankle brace when they return tomorrow. #Dysphagia * speech therapy on board. * now on modified diet by speech therapy * Barium swallow showed moderate-severe oropharyngeal dysphagia #RAMEZ on CKD: Resolved. Cr is 1.30 today, which is around his baseline. 06/04/2025: Creatinine up to 1.49 today will continue to monitor in the setting ofincreasing her Lasix 06/05/2025: Creatinine is up to 1.74 today we will discontinue Lasix appreciate pulmonary's assistance 06/06/2025: Creatinine is 1.75 today will monitor 06/09/2025: Creatinine today is 1.85 will monitor if it rises tomorrow will need to discontinue Lasix #Hypernatremia: resolved. #History of stroke: not on anticoagulation or antiplatelets. s/p right sided hemiparesis. #Hypertension: on amlodipine, carvedilol and hydralazine which are on hold due to hypotension. Carvedilol resumed due to afib and nonsustained vtach. Carvedilol now switched to PO metoprolol per cardiology DVT: SCDs Charges/Coding Visit Charges Inpatient E&M: 03532 Subs Hosp L2 06/09/25 1131 <Electronically signed by Hiren Sanders MD> Cosigner Signature (if applicable): CC: ~ Signed [facility] Work Phone: [phone]) 999-937509-12-2025 Progress note Author Hiren Sanders [facility] Note Date/Time June 08, 2025 10:41am [facility] Medical Records Department [address] [place] [address] Progress Note - Hospitalist 06/08/25 1040 MR#: [id number] Acct: [id number] Name: NANCY DELACRUZ Rep #:[id number] : 1965 59 From: Hiren suarez MD PCP: Dr. Sabrina Duran, DO Status:ADM IN Location: [place] [address] Subjective Subjective No issues overnight, maintaining her oxygen saturations on 5 to 6 L nasal cannula. Hemoglobin has stabilized to 7.2 will not transfuse Objective Data Objective Data Vital Signs: Vital Signs Temp Pulse Resp BP Pulse Ox O2 Del Method O2 Flow Rate 97.1 F L 94 18 127/76 H 94 Nasal Cannula 5 06/08/25 09:35 06/08/25 09:36 06/08/25 09:35 06/08/25 09:35 06/08/25 09:35 06/08/25 09:35 06/08/25 09:35 FiO2 50 06/07/25 22:45 Oxygen Flow Rate (L/min) 5 Oxygen Delivery Method Nasal Cannula Weight: 173 lb 15.115 oz Body Mass Index (BMI) 28.9 Intake & Output: Intake and Output for Last 24 Hours 06/07/25 06/08/25 06/09/25 03:59 03:59 03:59 Intake Total 880 / 880 720 / 720 120 / 120 Output Total 1900 / 1900 1050 / 1050 Balance -1020 / -1020 -330 / -330 120 / 120 Lab / Micro Data 06/08/25 04:41 06/08/25 04:41 Labs: Laboratory Results - last 24 hr 06/01/25 18:50: HPV High Risk Negative, Pap Specimen Adequacy Comment, Pap SmearDiagnosis Comment H, Pap Smear Comment Comment 06/01/25 18:50: Pap Smear Comment ., Pap Smear Note Comment, Pap Performed By Comment, Pap Signed Out By Comment, Pap Recommendation Comment H, Thin Prep Pap Smear Comment 06/08/25 04:41: WBC 7.0, RBC 3.23 L, Hgb 7.2 L, Hct 25.4 L, MCV 78.6 L, MCH 22.3L, MCHC 28.3 L, RDW Std Deviation 72.1 H, RDW Coeff of Federico 27.3 H, Plt Count 426, MPV 10.0, Immature Gran % (Auto) 0.400, Neut % (Auto) 72.0 H, Lymph % (Auto) 15.3 L, [place] % (Auto) 9.5, Eos % (Auto) 2.1, Baso % (Auto) 0.7, Absolute Neuts (auto) 5.0, Absolute Lymphs (auto) 1.07, Nucleated RBC % 0, Anisocytosis 1+, Sodium 142, Potassium 4.0, Chloride 105, Carbon Dioxide 25.7, Anion Gap 12, BUN 45 H, Creatinine 1.73 H, Estim Creat Clear Calc 35.45 L, Est GFR (MDRD) Non-Af 33 L, BUN/Creatinine Ratio 25.8 H, Glucose 79, Calcium 8.0 Micro: Microbiology 05/29/25 10:00 Stool Enteric Bacteriology - Final 05/29/25 10:00 Stool Clostridioides difficile (PCR) - Final 05/21/25 15:15 Blood Culture (Wb) - Central Line Blood Culture - Final No growth in 5 days. 05/21/25 14:15 Sputum, Induced/Lukens Gram Stain - Final 05/21/25 14:15 Sputum, Induced/Lukens Respiratory Culture - Final 05/21/25 17:40 Urine Catheter - Fiore Urine Culture - Final Escherichia coli Physical Exam Narrative General: Alert, not really communicative HEENT: Atraumatic, PERRLA, EOMI, Normocephalic Oral: Moist Mucosa Neck: Supple, No JVD Lungs: Diminished, Normal air movement, No rhonchi, No wheeze, No rales Cardiovascular: Regular rate, Regular Rhythm, Normal S1, Normal S2, No murmurs Abdomen: Soft, Non Tender, Non-Distended, No Hepato-splenomegaly Extremities: Edema, Capillary Refill Less than 3 Seconds Skin: No rashes, No breakdown Musculoskeletal: No Tenderness to Palpation of Joints or Extremities Neurological: Chronic neurological changes with limited use of her right arm Psych/Mental Status: Normal affect, appears to be at her baseline Assessment & Plan Assessment/Plan (1) Hypernatremia: (2) Dysphagia: (3) (HFpEF) heart failure with preserved ejection fraction: (4) Acute blood loss anemia: (5) Atrial fibrillation with RVR: PLAN: Plan #Acute hypoxic respiratory failure * thought to be due to CHF and pneumonia * on zosyn. Was intubated and subsequently on 05/25/2025. * now down to 2L of oxygen. * Titrate oxygen to maintain sats above 90%. Breathing treatments with bronchodilators. * she completed a course of antibiotic 06/04/2025: Increased oxygen requirements today requiring BiPAP. Unclear as to what the etiology is however she does appear little bit volume overloaded so we will increase her Lasix dosing to IV twice daily 06/05/2025: Will attempt transfer to a tertiary care center at the request of family. In the meantime we will consult pulmonology for assistance. Will discontinue Lasix as her creatinine has increased again to 1.74 06/06/2025: Creatinine is 1.75 today. Oxygen requirements are down to 6 L nasal cannula. Awaiting transfer to [facility] 06/07/2025: Awaiting transfer. Creatinine has stabilized, we will trial her on daily IV dosing of Lasix to help improve her oxygen requirements. Will continueto encourage BiPAP use at night and with sleep 06/08/2025: Awaiting transfer #Acute on chronic HFpEF * EF is normal at 60%, and mild concentric LVH and apical hypertrophic cardiomyopathy present. * received IV lasix 40mg x 1. * pro BNP: 83279 * on 3L oxygen today. Titrate oxygen to maintain sats >90% * breathing treatment with bronchodilators. * She is in cumulative positive balance by 5.945L * On p.o. Lasix 06/04/2025: Continue with IV Lasix for diuresis 06/05/2025: Will discontinue Lasix secondary to rise in her creatinine 06/07/2025: Will resume daily Lasix monitor renal function #Atrial fibrillation with RVR * new diagnosis. not anticoagulated. * now on metoprolol. RVR has resolved. #Diarrhea * Enteric pathogen and C Diff screen negative. * diarrhea has largely resolved #Hypokalemia: Resolved K is 3.8. Will give PO potassium to keep K >4 #Acute blood loss anemia secondary to concern for uterine cancer * Initial Hb on admission was 3.6. * transfused with 4 units of PRBCs. * Hb today is 7.8 * received IV iron. On IV PPI * EGD showed non bleeding cratered duodenal ulcers and multiple linear gastric ulcers (nonbleeding) * iron studies showed iron deficiency. * transfuse to keep HB >7 * to have repeat EGD in 8-12 weeks to evaluate for healing of gastric ulcers and obtain biopsies. * Noted to have vaginal bleeding. Transvaginal ultrasound done showed endometrial thickening with clinical correlation recommended. Thickness noted to be abnormal for patient's postmenopausal state. * Gynecology reviewed patient and did a bedside endometrial biopsy. CA 129 and CEA antigens ordered per gynecology * Per Dr. More, she is concerned about cancer and if this is proven patient will be referred to [facility] oncologist in [place] on outpatient basis. * Ca 125 elevated at eight 7.4 although CEA antigen is normal at 1.3. Will need follow-up on outpatient basis with gynecology 06/04/2025: Hemoglobin appears stabilized at 7.8, will recheck in the morning. Will discuss with family about transfer given the severity of her potential uterine cancer with her continued bleeding as well as now her increased oxygen requirements and respiratory status. 06/05/2025: Hemoglobin is 7.2, this could indicate a recurrent bleed versus equalization versus just normal lab variance however given her recent history wewill go ahead and provide her with a dose of Venofer and recheck hemoglobin in the morning pending transfer to a tertiary center 06/07/2025: Pathology with atypical hyperplasia and suspected adenocarcinoma, awaiting transfer to a higher level of care for possible surgical intervention given the fact that her hemoglobin continues to drop and is currently 7.1 06/08/2025: Hemoglobin 7.2 #Nonsustained V. tach: * was on carvedilol but cardiology consulted and recommended discontinuing carvedilol and starting on metoprolol 50mg bid. Due to patient's low BP, was started on PO metoprolol 12.5mg bid. * Will increase to 25mg bid today. * to keep potassium >4 and magnesium >2. #Right ankle inversion * PT/OT worked with patient today and recommended ankle brace o/a of the right ankle inversion * PT/OT On board. fall precautions * case management to help facilitate getting a right ankle brace when they return tomorrow. #Dysphagia * speech therapy on board. * now on modified diet by speech therapy * Barium swallow showed moderate-severe oropharyngeal dysphagia #RAMEZ on CKD: Resolved. Cr is 1.30 today, which is around his baseline. 06/04/2025: Creatinine up to 1.49 today will continue to monitor in the setting ofincreasing her Lasix 06/05/2025: Creatinine is up to 1.74 today we will discontinue Lasix appreciate pulmonary's assistance 06/06/2025: Creatinine is 1.75 today will monitor #Hypernatremia: resolved. #History of stroke: not on anticoagulation or antiplatelets. s/p right sided hemiparesis. #Hypertension: on amlodipine, carvedilol and hydralazine which are on hold due to hypotension. Carvedilol resumed due to afib and nonsustained vtach. Carvedilol now switched to PO metoprolol per cardiology DVT: SCDs Charges/Coding Visit Charges Inpatient E&M: 55095 Subs Hosp L1 06/08/25 1041 <Electronically signed by Hiren Sanders MD> Cosigner Signature (if applicable): CC: ~ Signed [facility] Work Phone: [phone]) 551-156009-11-2025 Progress note Author Eloisa More [facility] Note Date/Time June 07, 2025 5:25pm [facility] Medical Records Department [address] [place] [address] Progress Note - OBGYN 06/06/25 1704 MR#: [id number] Acct: [id number] Name: NANCY DELACRUZ Rep #:[id number] : 1965 59 From: Eloisa woods MD PCP: Dr. Sabrina Duran, DO Status:ADM IN Location: [place] [address]- Subjective Subjective Patient states minimal bleeding, pain controlled. Planning transfer to [facility]. Objective Data Objective Data Vital Signs: Vital Signs Temp Pulse Resp BP Pulse Ox O2 Del Method O2 Flow Rate 98 F 101 H 16 108/74 96 High Flow 6 06/06/25 15:15 06/06/25 15:15 06/06/25 15:15 06/06/25 15:15 06/06/25 15:15 06/06/25 15:15 06/06/25 15:15 FiO2 50 06/06/25 02:00 Oxygen Flow Rate (L/min) 6 Oxygen Delivery Method High Flow Weight: 181 lb 14.102 oz Body Mass Index (BMI) 30.2 Intake & Output: Intake and Output for Last 24 Hours 06/04/25 06/05/25 06/06/25 23:59 23:59 23:59 Intake Total 500 / 500 590 / 830 460 / 460 Output Total 2300 / 2300 620 / 820 1100 / 1100 Balance -1800 / -1800 -30 / 10 -640 / -640 Lab / Micro Data 06/07/25 05:06 06/07/25 05:06 Labs: Laboratory Results - last 24 hr 06/06/25 05:18: WBC 8.1, RBC 3.40 L, Hgb 7.6 L, Hct 26.8 L, MCV 78.8 L, MCH 22.4L, MCHC 28.4 L, RDW Std Deviation 71.7 H, RDW Coeff of Federico 27.6 H, Plt Count 453H, MPV 10.0, Immature Gran % (Auto) 0.400, Neut % (Auto) 74.1 H, Lymph % (Auto) 13.3 L, [place] % (Auto) 9.2, Eos % (Auto) 2.3, Baso % (Auto) 0.7, Absolute Neuts (auto) 6.0, Absolute Lymphs (auto) 1.08, Nucleated RBC % 0, Differential CommentSCANNED, Platelet Estimate SLT INC, Polychromasia 1+, Anisocytosis 2+, Target Cells 1+, Ovalocytes 1+, Acanthocytes (Spur) 1+, Sodium 143, Potassium 3.9, Chloride 105, Carbon Dioxide 26.0, Anion Gap 12, BUN 44 H, Creatinine 1.75 H, Estim Creat Clear Calc 35.81 L, Est GFR (MDRD) Non-Af 33 L, BUN/Creatinine Ratio 25.3 H, Glucose 103 H, Calcium 8.2 Micro: Microbiology 05/29/25 10:00 Stool Enteric Bacteriology - Final 05/29/25 10:00 Stool Clostridioides difficile (PCR) - Final 05/21/25 15:15 Blood Culture (Wb) - Central Line Blood Culture - Final No growth in 5 days. 05/21/25 14:15 Sputum, Induced/Lukens Gram Stain - Final 05/21/25 14:15 Sputum, Induced/Lukens Respiratory Culture - Final 05/21/25 17:40 Urine Catheter - Fiore Urine Culture - Final Escherichia coli Radiography Diagnostic Testing: Radiology Impression Transvaginal US 06/01/25 08:26 IMPRESSION: Endometrial thickening. Clinical correlation recommended. Reading Location: [facility] Chest X-Ray 06/02/25 04:00 IMPRESSION: Right internal jugular central catheter is in good position with its tip at the atriocaval junction. Minimal decrease in multifocal pulmonary congestion/infiltrates. Unchanged minimal left pleural effusion. Enlarged cardiac silhouette. Reading Location: [address] Constitutional Constitutional: Reports systems reviewed and no addt'l complaints, except as documented Cardiovascular Cardiovascular: Reports systems reviewed and no addt'l complaints, except as documented Respiratory/Chest Respiratory/Chest: Reports systems reviewed and no addt'l complaints, except as documented Gastrointestinal Gastrointestinal: Reports systems reviewed and no addt'l complaints, except as documented Physical Exam Const alert, oriented x3 and no apparent distress HEENT Head and Scalp: atraumatic Resp normal respiratory effort GI soft to palpation and non-tender Assessment & Plan (1) Postmenopausal bleeding: COMMENT: EMB done, needs polyp removed as OP also. await pathology to determine intervention. cea and ca125 done- ca125 significantly elevated which is suspicious for cancer. (2) Endometrial thickening on ultrasound: (3) Endometrial hyperplasia without atypia, complex: COMMENT: Areas suspicious for adenocarcinoma, recommend gynecology oncology consultation once she arrives at [email or web address] Records sent to Dr. Wilman Iqbal [facility]. (4) Atypical glandular cells of undetermined significance (BEST) on cervical Papsmear: COMMENT: Likely due to endometrial abnormalities PLAN: Plan Discussed with patient, mother, and brother. Endometrial hyperplasia with complex atypia and areas suspicious for adenocarcinoma seen on biopsy. Recommend gynecology oncology consultation once she is transported to [facility]. Discussed that she can follow-up with us as needed as an outpatient after she receives treatment from the cardboard cutter oncologist. Records are faxed to Dr. Milton brito in [facility]. Charges/Coding Visit Charges Inpatient E&M: 01435 Subs Hosp L3 06/07/251724 <Electronically signed by Eloisa More MD> Cosigner Signature (if applicable): CC: ~ Signed [facility] Work Phone: [phone]) [phone] Progress note Author Hiren Sanders [facility] Note Date/Time June 07, 2025 10:21am [facility] Medical Records Department [address] [place] [address] Progress Note - Hospitalist 06/07/25 1016 MR#: [id number] Acct: [id number] Name: NANCY DELACRUZ Rep #:[id number] : 1965 59 From: Hiren suarez MD PCP: Dr. Sabrina Duran, DO Status:ADM IN Location: [place] [address] Subjective Subjective No major issues overnight, oxygen requirements are still variable this morning she was on 6 L nasal cannula. Hemoglobin is dropped again to 7.1. 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 Awaiting transfer to [facility] Objective Data Objective Data Vital Signs: Vital Signs Temp Pulse Resp BP Pulse Ox O2 Del Method O2 Flow Rate 98.0 F 94 20 H 137/82 H 97 Nasal Cannula 5 06/07/25 08:38 06/07/25 09:24 06/07/25 08:38 06/07/25 08:38 06/07/25 08:38 06/07/25 08:39 06/07/25 08:38 FiO2 50 06/07/25 01:04 Oxygen Flow Rate (L/min) 5 Oxygen Delivery Method Nasal Cannula Weight: 173 lb 8.061 oz Body Mass Index (BMI) 28.8 Intake & Output: Intake and Output for Last 24 Hours 06/06/25 06/07/25 06/08/25 03:59 03:59 03:59 Intake Total 830 / 830 880 / 880 120 / 120 Output Total 820 / 820 1900 / 1900 Balance -1020 / -1020 120 / 120 Lab / Micro Data 06/07/25 05:06 06/07/25 05:06 Labs: Laboratory Results - last 24 hr 06/07/25 05:06: WBC 7.1, RBC 3.18 L, Hgb 7.1 L, Hct 25.3 L, MCV 79.6 L, MCH 22.3L, MCHC 28.1 L, RDW Std Deviation 73.0 H, RDW Coeff of Federico 27.1 H, Plt Count 418, MPV 10.1, Immature Gran % (Auto) 0.300, Neut % (Auto) 70.5 H, Lymph % (Auto) 16.6 L, [place] % (Auto) 8.8, Eos % (Auto) 3.1, Baso % (Auto) 0.7, Absolute Neuts (auto) 5.0, Absolute Lymphs (auto) 1.18, Nucleated RBC % 0, Platelet Estimate ADEQUATE, Anisocytosis 2+, Ovalocytes 1+, Sodium 144, Potassium 4.1, Chloride 105, Carbon Dioxide 27.5, Anion Gap 11, BUN 46 H, Creatinine 1.74 H, Estim Creat Clear Calc 35.20 L, Est GFR (MDRD) Non-Af 33 L, BUN/Creatinine Ratio 26.4 H, Glucose 85, Calcium 8.1, Magnesium 2.1 Micro: Microbiology 05/29/25 10:00 Stool Enteric Bacteriology - Final 05/29/25 10:00 Stool Clostridioides difficile (PCR) - Final 05/21/25 15:15 Blood Culture (Wb) - Central Line Blood Culture - Final No growth in 5 days. 05/21/25 14:15 Sputum, Induced/Lukens Gram Stain - Final 05/21/25 14:15 Sputum, Induced/Lukens Respiratory Culture - Final 05/21/25 17:40 Urine Catheter - Fiore Urine Culture - Final Escherichia coli Physical Exam Narrative General: Alert, not really communicative HEENT: Atraumatic, PERRLA, EOMI, Normocephalic Oral: Moist Mucosa Neck: Supple, No JVD Lungs: Diminished, Normal air movement, No rhonchi, No wheeze, No rales Cardiovascular: Regular rate, Regular Rhythm, Normal S1, Normal S2, No murmurs Abdomen: Soft, Non Tender, Non-Distended, No Hepato-splenomegaly Extremities: Edema, Capillary Refill Less than 3 Seconds Skin: No rashes, No breakdown Musculoskeletal: No Tenderness to Palpation of Joints or Extremities Neurological: Chronic neurological changes with limited use of her right arm Psych/Mental Status: Normal affect, appears to be at her baseline Assessment & Plan Assessment/Plan (1) Hypernatremia: (2) Dysphagia: (3) (HFpEF) heart failure with preserved ejection fraction: (4) Acute blood loss anemia: (5) Atrial fibrillation with RVR: PLAN: Plan #Acute hypoxic respiratory failure * thought to be due to CHF and pneumonia * on zosyn. Was intubated and subsequently on 05/25/2025. * now down to 2L of oxygen. * Titrate oxygen to maintain sats above 90%. Breathing treatments with bronchodilators. * she completed a course of antibiotic 06/04/2025: Increased oxygen requirements today requiring BiPAP. Unclear as to what the etiology is however she does appear little bit volume overloaded so we will increase her Lasix dosing to IV twice daily 06/05/2025: Will attempt transfer to a tertiary care center at the request of family. In the meantime we will consult pulmonology for assistance. Will discontinue Lasix as her creatinine has increased again to 1.74 06/06/2025: Creatinine is 1.75 today. Oxygen requirements are down to 6 L nasal cannula. Awaiting transfer to [facility] 06/07/2025: Awaiting transfer. Creatinine has stabilized, we will trial her on daily IV dosing of Lasix to help improve her oxygen requirements. Will continueto encourage BiPAP use at night and with sleep #Acute on chronic HFpEF * EF is normal at 60%, and mild concentric LVH and apical hypertrophic cardiomyopathy present. * received IV lasix 40mg x 1. * pro BNP: 51370 * on 3L oxygen today. Titrate oxygen to maintain sats >90% * breathing treatment with bronchodilators. * She is in cumulative positive balance by 5.945L * On p.o. Lasix 06/04/2025: Continue with IV Lasix for diuresis 06/05/2025: Will discontinue Lasix secondary to rise in her creatinine 06/07/2025: Will resume daily Lasix monitor renal function #Atrial fibrillation with RVR * new diagnosis. not anticoagulated. * now on metoprolol. RVR has resolved. #Diarrhea * Enteric pathogen and C Diff screen negative. * diarrhea has largely resolved #Hypokalemia: Resolved K is 3.8. Will give PO potassium to keep K >4 #Acute blood loss anemia secondary to concern for uterine cancer * Initial Hb on admission was 3.6. * transfused with 4 units of PRBCs. * Hb today is 7.8 * received IV iron. On IV PPI * EGD showed non bleeding cratered duodenal ulcers and multiple linear gastric ulcers (nonbleeding) * iron studies showed iron deficiency. * transfuse to keep HB >7 * to have repeat EGD in 8-12 weeks to evaluate for healing of gastric ulcers and obtain biopsies. * Noted to have vaginal bleeding. Transvaginal ultrasound done showed endometrial thickening with clinical correlation recommended. Thickness noted to be abnormal for patient's postmenopausal state. * Gynecology reviewed patient and did a bedside endometrial biopsy. CA 129 and CEA antigens ordered per gynecology * Per Dr. More, she is concerned about cancer and if this is proven patient will be referred to [facility] oncologist in [place] on outpatient basis. * Ca 125 elevated at eight 7.4 although CEA antigen is normal at 1.3. Will need follow-up on outpatient basis with gynecology 06/04/2025: Hemoglobin appears stabilized at 7.8, will recheck in the morning. Will discuss with family about transfer given the severity of her potential uterine cancer with her continued bleeding as well as now her increased oxygen requirements and respiratory status. 06/05/2025: Hemoglobin is 7.2, this could indicate a recurrent bleed versus equalization versus just normal lab variance however given her recent history wewill go ahead and provide her with a dose of Venofer and recheck hemoglobin in the morning pending transfer to a tertiary center 06/07/2025: Pathology with atypical hyperplasia and suspected adenocarcinoma, awaiting transfer to a higher level of care for possible surgical intervention given the fact that her hemoglobin continues to drop and is currently 7.1 #Nonsustained V. tach: * was on carvedilol but cardiology consulted and recommended discontinuing carvedilol and starting on metoprolol 50mg bid. Due to patient's low BP, was started on PO metoprolol 12.5mg bid. * Will increase to 25mg bid today. * to keep potassium >4 and magnesium >2. #Right ankle inversion * PT/OT worked with patient today and recommended ankle brace o/a of the right ankle inversion * PT/OT On board. fall precautions * case management to help facilitate getting a right ankle brace when they return tomorrow. #Dysphagia * speech therapy on board. * now on modified diet by speech therapy * Barium swallow showed moderate-severe oropharyngeal dysphagia #RAMEZ on CKD: Resolved. Cr is 1.30 today, which is around his baseline. 06/04/2025: Creatinine up to 1.49 today will continue to monitor in the setting ofincreasing her Lasix 06/05/2025: Creatinine is up to 1.74 today we will discontinue Lasix appreciate pulmonary's assistance 06/06/2025: Creatinine is 1.75 today will monitor #Hypernatremia: resolved. #History of stroke: not on anticoagulation or antiplatelets. s/p right sided hemiparesis. #Hypertension: on amlodipine, carvedilol and hydralazine which are on hold due to hypotension. Carvedilol resumed due to afib and nonsustained vtach. Carvedilol now switched to PO metoprolol per cardiology DVT: SCDs Charges/Coding Visit Charges Inpatient E&M: 10865 Subs Hosp L2 06/07/25 1021 <Electronically signed by Hiren Sanders MD> Cosigner Signature (if applicable): CC: ~ Signed [facility] Work Phone: [phone]) 915-224109-10-2025 Progress note Author Hiren Sanders [facility] Note Date/Time June 06, 2025 10:00am [facility] Medical Records Department [address] [facility] [place] [address] Progress Note - Hospitalist 06/06/25925 MR#: [id number] Acct: [id number] Name: NANCY DELACRUZ Rep #:[id number] : 1965 59 From: Hiren suarez MD PCP: Dr. Sabrina Duran, DO Status:ADM IN Location: [place] [address] Subjective Subjective Respiratory status is stable. Hemoglobin improved from 7.2 up to 7.6 Objective Data Objective Data Vital Signs: Vital Signs Temp Pulse Resp BP Pulse Ox O2 Del Method O2 Flow Rate 97.9 F 102 H 18 108/78 95 High Flow 6 06/06/25 09:09 06/06/25 09:14 06/06/25 09:09 06/06/25 09:14 06/06/25 09:15 06/06/25 09:15 06/06/25 09:15 FiO2 50 06/06/25 02:00 Oxygen Flow Rate (L/min) 6 Oxygen Delivery Method High Flow Weight: 181 lb 14.102 oz Body Mass Index (BMI) 30.2 Intake & Output: Intake and Output for Last 24 Hours 06/05/25 06/06/25 06/07/25 03:59 03:59 03:59 Intake Total 500 / 500 830 / 830 Output Total 1500 / 1500 820 / 820 500 / 500 Balance -1000 / -1000 -500 / -500 Lab / Micro Data 06/06/25 05:18 06/06/25 05:18 Labs: Laboratory Results - last 24 hr 06/05/25 04:57: [place] [address] H, Procalcitonin 0.29 H 06/06/25 05:18: WBC 8.1, RBC 3.40 L, Hgb 7.6 L, Hct 26.8 L, MCV 78.8 L, MCH 22.4L, MCHC 28.4 L, RDW Std Deviation 71.7 H, RDW Coeff of Federico 27.6 H, Plt Count 453H, MPV 10.0, Immature Gran % (Auto) 0.400, Neut % (Auto) 74.1 H, Lymph % (Auto) 13.3 L, [place] % (Auto) 9.2, Eos % (Auto) 2.3, Baso % (Auto) 0.7, Absolute Neuts (auto) 6.0, Absolute Lymphs (auto) 1.08, Nucleated RBC % 0, Differential CommentSCANNED, Platelet Estimate SLT INC, Polychromasia 1+, Anisocytosis 2+, Target Cells 1+, Ovalocytes 1+, Acanthocytes (Spur) 1+, Sodium 143, Potassium 3.9, Chloride 105, Carbon Dioxide 26.0, Anion Gap 12, BUN 44 H, Creatinine 1.75 H, Estim Creat Clear Calc 35.81 L, Est GFR (MDRD) Non-Af 33 L, BUN/Creatinine Ratio 25.3 H, Glucose 103 H, Calcium 8.2 Micro: Microbiology 05/29/25 10:00 Stool Enteric Bacteriology - Final 05/29/25 10:00 Stool Clostridioides difficile (PCR) - Final 05/21/25 15:15 Blood Culture (Wb) - Central Line Blood Culture - Final No growth in 5 days. 05/21/25 14:15 Sputum, Induced/Lukens Gram Stain - Final 05/21/25 14:15 Sputum, Induced/Lukens Respiratory Culture - Final 05/21/25 17:40 Urine Catheter - Fiore Urine Culture - Final Escherichia coli Radiography Diagnostic Testing: Radiology Impression Chest CTA 06/05/25 10:34 IMPRESSION: 1. No evidence of acute or chronic pulmonary embolus. Limitation of the segmental and subsegmental vessels in the lower lobes. 2. Cardiac enlargement. Coronary artery disease. 3. Bilateral interstitial and airspace opacities throughout both lungs. This is fairly extensive. Underlying pneumonia should be considered. Alternatively, consider cryptogenic organizing pneumonia, DIGITAL ACCOUNT COORDINATOR. Reading Location: [facility] Physical Exam Narrative General: Alert, not really communicative HEENT: Atraumatic, PERRLA, EOMI, Normocephalic Oral: Moist Mucosa Neck: Supple, No JVD Lungs: Diminished, Normal air movement, No rhonchi, No wheeze, No rales Cardiovascular: Regular rate, Regular Rhythm, Normal S1, Normal S2, No murmurs Abdomen: Soft, Non Tender, Non-Distended, No Hepato-splenomegaly Extremities: Trace edema, Capillary Refill Less than 3 Seconds Skin: No rashes, No breakdown Musculoskeletal: No Tenderness to Palpation of Joints or Extremities Neurological: Chronic neurological changes with limited use of her right arm Psych/Mental Status: Flat Assessment & Plan Assessment/Plan (1) Hypernatremia: (2) Dysphagia: (3) (HFpEF) heart failure with preserved ejection fraction: (4) Acute blood loss anemia: (5) Atrial fibrillation with RVR: PLAN: Plan #Acute hypoxic respiratory failure * thought to be due to CHF and pneumonia * on zosyn. Was intubated and subsequently on 05/25/2025. * now down to 2L of oxygen. * Titrate oxygen to maintain sats above 90%. Breathing treatments with bronchodilators. * she completed a course of antibiotic 06/04/2025: Increased oxygen requirements today requiring BiPAP. Unclear as to what the etiology is however she does appear little bit volume overloaded so we will increase her Lasix dosing to IV twice daily 06/05/2025: Will attempt transfer to a tertiary care center at the request of family. In the meantime we will consult pulmonology for assistance. Will discontinue Lasix as her creatinine has increased again to 1.74 06/06/2025: Creatinine is 1.75 today. Oxygen requirements are down to 6 L nasal cannula. Awaiting transfer to [facility] #Acute on chronic HFpEF * EF is normal at 60%, and mild concentric LVH and apical hypertrophic cardiomyopathy present. * received IV lasix 40mg x 1. * pro BNP: 31654 * on 3L oxygen today. Titrate oxygen to maintain sats >90% * breathing treatment with bronchodilators. * She is in cumulative positive balance by 5.945L * On p.o. Lasix 06/04/2025: Continue with IV Lasix for diuresis 06/05/2025: Will discontinue Lasix secondary to rise in her creatinine #Atrial fibrillation with RVR * new diagnosis. not anticoagulated. * now on metoprolol. RVR has resolved. #Diarrhea * Enteric pathogen and C Diff screen negative. * diarrhea has largely resolved #Hypokalemia: Resolved K is 3.8. Will give PO potassium to keep K >4 #Acute blood loss anemia secondary to concern for uterine cancer * Initial Hb on admission was 3.6. * transfused with 4 units of PRBCs. * Hb today is 7.8 * received IV iron. On IV PPI * EGD showed non bleeding cratered duodenal ulcers and multiple linear gastric ulcers (nonbleeding) * iron studies showed iron deficiency. * transfuse to keep HB >7 * to have repeat EGD in 8-12 weeks to evaluate for healing of gastric ulcers and obtain biopsies. * Noted to have vaginal bleeding. Transvaginal ultrasound done showed endometrial thickening with clinical correlation recommended. Thickness noted to be abnormal for patient's postmenopausal state. * Gynecology reviewed patient and did a bedside endometrial biopsy. CA 129 and CEA antigens ordered per gynecology * Per Dr. More, she is concerned about cancer and if this is proven patient will be referred to [facility] oncologist in [place] on outpatient basis. * Ca 125 elevated at eight 7.4 although CEA antigen is normal at 1.3. Will need follow-up on outpatient basis with gynecology 06/04/2025: Hemoglobin appears stabilized at 7.8, will recheck in the morning. Will discuss with family about transfer given the severity of her potential uterine cancer with her continued bleeding as well as now her increased oxygen requirements and respiratory status. 06/05/2025: Hemoglobin is 7.2, this could indicate a recurrent bleed versus equalization versus just normal lab variance however given her recent history wewill go ahead and provide her with a dose of Venofer and recheck hemoglobin in the morning pending transfer to a tertiary center #Nonsustained V. tach: * was on carvedilol but cardiology consulted and recommended discontinuing carvedilol and starting on metoprolol 50mg bid. Due to patient's low BP, was started on PO metoprolol 12.5mg bid. * Will increase to 25mg bid today. * to keep potassium >4 and magnesium >2. #Right ankle inversion * PT/OT worked with patient today and recommended ankle brace o/a of the right ankle inversion * PT/OT On board. fall precautions * case management to help facilitate getting a right ankle brace when they return tomorrow. #Dysphagia * speech therapy on board. * now on modified diet by speech therapy * Barium swallow showed moderate-severe oropharyngeal dysphagia #RAMEZ on CKD: Resolved. Cr is 1.30 today, which is around his baseline. 06/04/2025: Creatinine up to 1.49 today will continue to monitor in the setting ofincreasing her Lasix 06/05/2025: Creatinine is up to 1.74 today we will discontinue Lasix appreciate pulmonary's assistance 06/06/2025: Creatinine is 1.75 today will monitor #Hypernatremia: resolved. #History of stroke: not on anticoagulation or antiplatelets. s/p right sided hemiparesis. #Hypertension: on amlodipine, carvedilol and hydralazine which are on hold due to hypotension. Carvedilol resumed due to afib and nonsustained vtach. Carvedilol now switched to PO metoprolol per cardiology DVT: SCDs Charges/Coding Visit Charges Inpatient E&M: 51154 Subs Hosp L2 06/06/25 1000 <Electronically signed by Hiren Sanders MD> Cosigner Signature (if applicable): CC: ~ Signed [facility] Work Phone: [phone]) 286-479009-10-2025 Progress note Author Julian Monsivais [facility] Note Date/Time June 06, 2025 9:33am [facility] Medical Records Department [address] [place] [address] Progress Note - [place] Department Operator 06/06/25 0917 MR#: [id number] Acct: [id number] Name: NANCY DELACRUZ Rep #:[id number] : 1965 59 From: Julian Monsivais DO PCP: Dr. Sabrina Duran, DO Status:ADM IN Location: [place] [address] Assessment & Plan Assessment/Plan (1) Acute hypoxemic respiratory failure: (2) Elevated troponin: (3) Acute on chronic kidney failure: (4) New onset a-fib: (5) Shock: PLAN: Plan RECOMMENDATIONS: 1. Supplemental oxygen to maintain saturations at or above 90%. 2. BiPAP therapy with naps and nightly to assist with alveolar recruitment. 3. Consider resuming Lasix once daily and monitoring renal function accordingly. 4. Continue to monitor H&H. Transfuse if hemoglobin drops below 7 g/dL. 5. Dietary advancement per speech therapy. IMPRESSIONS: 1. Undifferentiated shock Resolved. Most likely secondary to hemorrhagic etiology in the setting of acuteblood loss anemia +/- sepsis related to pneumonia. The patient is currently hemodynamically stable. The patient completed a 7-day treatment course of antimicrobials. The patient is status post endoscopic evaluation by GI with gastric ulcers and nonbleeding duodenal ulcers noted. The patient will be continued on PPI therapy. 2. Acute hypoxemic respiratory failure While the patient was initially intubated earlier in the hospitalization secondary to pneumonia, she has since been extubated and completed a 7-day treatment course of antimicrobials. CTA chest obtained yesterday ruled out pulmonary embolism but did demonstrate continued evidence of bilateral infiltrates, likely the sequelae of her recent pneumonia. In addition, she has a significantly elevated BNP. Overall, the patient's oxygenation status has improved with diuresis. However, her creatinine has risen. Recommend cautious reintroduction of diuretics with close attention to renal function. Continue towean supplemental oxygen as tolerated. Recommend BiPAP therapy with naps and nightly to assist with alveolar recruitment. 3. History of CVA with residual deficits/hypertension/hyperlipidemia Complicates care, management, recovery and prognosis. Continue supportive measures as noted above. Physical therapy to work with the patient. Dietary advancement per speech therapy. This note was generated with [employer] dictation software. It may contain incorrectwords, spelling, and punctuation that were not noted in checking the note beforesigning. Subjective Subjective The patient was seen and examined at the bedside this morning. Events from the last 24 hours have been reviewed. The patient is currently afebrile, hemodynamically stable and maintaining appropriate oxygen saturations on 6 L/minvia nasal cannula. The patient is currently documented to be overall net +3.7 Lfor the hospitalization. Hemoglobin is stable at 7.6 g/dL. Creatinine has plateaued at 1.75. BNP was elevated at 13,688. Objective Data Objective Data The patient's most recent lab work, culture data and imaging studies have all been personally reviewed. Surface echocardiogram demonstrated mild concentric LVH with an ejection fraction of 60%. Vital Signs: Vital Signs Temp Pulse Resp BP Pulse Ox O2 Del Method O2 Flow Rate 97.9 F 102 H 18 108/78 95 High Flow 6 06/06/25 09:09 06/06/25 09:14 06/06/25 09:09 06/06/25 09:14 06/06/25 09:15 06/06/25 09:15 06/06/25 09:15 FiO2 50 06/06/25 02:00 Oxygen Flow Rate (L/min) 6 Oxygen Delivery Method High Flow Weight: 181 lb 14.102 oz Body Mass Index (BMI) 30.2 Intake & Output: Intake and Output for Last 24 Hours 06/04/25 06/05/25 06/06/25 23:59 23:59 23:59 Intake Total 500 / 500 590 / 830 240 / 240 Output Total 2300 / 2300 620 / 820 700 / 700 Balance -1800 / -1800 -30 / 10 -460 / -460 Lab / Micro Data Attestation: I reviewed the patient's lab results. 06/06/25 05:18 06/06/25 05:18 Labs: Laboratory Results - last 24 hr 06/05/25 04:57: [place] [address] H, Procalcitonin 0.29 H 06/06/25 05:18: WBC 8.1, RBC 3.40 L, Hgb 7.6 L, Hct 26.8 L, MCV 78.8 L, MCH 22.4L, MCHC 28.4 L, RDW Std Deviation 71.7 H, RDW Coeff of Federico 27.6 H, Plt Count 453H, MPV 10.0, Immature Gran % (Auto) 0.400, Neut % (Auto) 74.1 H, Lymph % (Auto) 13.3 L, [place] % (Auto) 9.2, Eos % (Auto) 2.3, Baso % (Auto) 0.7, Absolute Neuts (auto) 6.0, Absolute Lymphs (auto) 1.08, Nucleated RBC % 0, Differential CommentSCANNED, Platelet Estimate SLT INC, Polychromasia 1+, Anisocytosis 2+, Target Cells 1+, Ovalocytes 1+, Acanthocytes (Spur) 1+, Sodium 143, Potassium 3.9, Chloride 105, Carbon Dioxide 26.0, Anion Gap 12, BUN 44 H, Creatinine 1.75 H, Estim Creat Clear Calc 35.81 L, Est GFR (MDRD) Non-Af 33 L, BUN/Creatinine Ratio 25.3 H, Glucose 103 H, Calcium 8.2 Micro: Microbiology 05/29/25 10:00 Stool Enteric Bacteriology - Final 05/29/25 10:00 Stool Clostridioides difficile (PCR) - Final 05/21/25 15:15 Blood Culture (Wb) - Central Line Blood Culture - Final No growth in 5 days. 05/21/25 14:15 Sputum, Induced/Lukens Gram Stain - Final 05/21/25 14:15 Sputum, Induced/Lukens Respiratory Culture - Final 05/21/25 17:40 Urine Catheter - Fiore Urine Culture - Final Escherichia coli ABG Data ABG results: ABG 05/21/25 05/21/25 09:30 15:31 Specimen Type ART LJ Sample Site L Radial L Radial pH 7.46 H Bicarbonate Actual 16.4 L Total CO2 17 Base Excess -7 L O2 Saturation 97 O2 % 100.0 60.0 ABG pCO2 22.8 L ABG pO2 79 Kishan Test Positive VBG pH 7.41 VBG pO2 23 L VBG HCO3 20 L VBG Total CO2 21 L VBG O2 Sat (Calc) 42 L VBG Base Excess -4 L POC Mix VBG pCO2 Pt Tmp 32.4 L Respiration Rate 16 O2 Delivery Device NRB Adult Vent Vent Mode Not entered Tidal Volume 450.0 POC PEEP 5 Radiography Diagnostic Testing: Radiology Impression Chest CTA 06/05/25 10:34 IMPRESSION: 1. No evidence of acute or chronic pulmonary embolus. Limitation of the segmental and subsegmental vessels in the lower lobes. 2. Cardiac enlargement. Coronary artery disease. 3. Bilateral interstitial and airspace opacities throughout both lungs. This is fairly extensive. Underlying pneumonia should be considered. Alternatively, consider cryptogenic organizing pneumonia, DIGITAL ACCOUNT COORDINATOR. Reading Location: [facility] Physical Exam Const alert and no apparent distress General Appearance: cooperative HEENT normocephalic and head/scalp atraumatic Eyes PERRL, EOMs intact bilaterally and conjunctivae normal Neck supple General: trachea midline and CVC in place Chest inspection of chest normal Resp Auscultation: diminished lung sounds; Negative for rales, rhonchi or wheezes Cardio regular rate, regular rhythm, S1 normal heart sound and S2 normal heart sound GI normal to inspection, nondistended, normoactive bowel sounds Extremity General Extremity: edema; Negative for clubbing Skin no rashes or lesions noted Neuro CN's II-XII intact bilaterally Neuro Narrative: Contracted right-sided extremities. Psych Mood & Affect: flat affect Charges/Coding Visit Charges Inpatient E&M: 84867 Subs Hosp L2 06/06/25 0933 <Electronically signed by Julian Monsivais DO> Cosigner Signature (if applicable): CC: ~ Signed [facility] Work Phone: [phone]) 994-845709-09-2025 Progress note Author Hiren Sanders [facility] Note Date/Time June 05, 2025 5:03pm [facility] Medical Records Department [address] [place] [address] Progress Note - Hospitalist 06/05/25 1701 MR#: [id number] Acct: [id number] Name: NANCY DELACRUZ Rep #:[id number] : 1965 59 From: Hiren suarez MD PCP: Dr. Sabrina Duran DO Status:ADM IN Location: [place] [address] Subjective Subjective Will continue to encourage BiPAP at night when with sleep. Currently on 8 L nasal cannula Objective Data Objective Data Vital Signs: Vital Signs Temp Pulse Resp BP Pulse Ox O2 Del Method O2 Flow Rate 97.8 F 91 18 108/72 93 High Flow 6 06/05/25 15:45 06/05/25 15:45 06/05/25 15:45 06/05/25 15:45 06/05/25 15:45 06/05/25 15:45 06/05/25 15:45 FiO2 50 06/05/25 04:08 Oxygen Flow Rate (L/min) 6 Oxygen Delivery Method High Flow Weight: 182 lb 15.739 oz Body Mass Index (BMI) 30.4 Intake & Output: Intake and Output for Last 24 Hours 06/04/25 06/05/25 06/06/25 03:59 03:59 03:59 Intake Total 1030 / 1030 500 / 500 220 / 220 Output Total 1150 / 1150 1500 / 1500 500 / 500 Balance -120 / -120 -1000 / -1000 -280 / -280 Lab / Micro Data 06/05/25 04:57 06/05/25 04:57 Labs: Laboratory Results - last 24 hr 06/05/25 04:57: WBC 6.5, RBC 3.20 L, Hgb 7.2 L, Hct 25.1 L, MCV 78.4 L, MCH 22.5L, MCHC 28.7 L, RDW Std Deviation TNP, RDW Coeff of Federico TNP, Plt Count 415, MPV 10.3, Immature Gran % (Auto) 0.300, Neut % (Auto) 67.0, Lymph % (Auto) 19.0, [place] % (Auto) 9.9, Eos % (Auto) 3.2, Baso % (Auto) 0.6, Absolute Neuts (auto) 4.4, Absolute Lymphs (auto) 1.23, Nucleated RBC % 0, Differential Comment SCANNED, Polychromasia RARE, Hypochromasia RARE, Anisocytosis 1+, Ovalocytes RARE, Sodium 142, Potassium 3.6, Chloride 104, Carbon Dioxide 25.5, Anion Gap 13, BUN 35 H, Creatinine 1.74 H, Estim Creat Clear Calc 36.77 L, Est GFR (MDRD) Non-Af 33 L, BUN/Creatinine Ratio 20.3 H, Glucose 94, Calcium 7.9, Phosphorus 4.3, Magnesium 2.1, [place] [address] H, Procalcitonin 0.29 H Micro: Microbiology 05/29/25 10:00 Stool Enteric Bacteriology - Final 05/29/25 10:00 Stool Clostridioides difficile (PCR) - Final 05/21/25 15:15 Blood Culture (Wb) - Central Line Blood Culture - Final No growth in 5 days. 05/21/25 14:15 Sputum, Induced/Lukens Gram Stain - Final 05/21/25 14:15 Sputum, Induced/Lukens Respiratory Culture - Final 05/21/25 17:40 Urine Catheter - Fiore Urine Culture - Final Escherichia coli Radiography Diagnostic Testing: Radiology Impression Chest CTA 06/05/25 10:34 IMPRESSION: 1. No evidence of acute or chronic pulmonary embolus. Limitation of the segmental and subsegmental vessels in the lower lobes. 2. Cardiac enlargement. Coronary artery disease. 3. Bilateral interstitial and airspace opacities throughout both lungs. This is fairly extensive. Underlying pneumonia should be considered. Alternatively, consider cryptogenic organizing pneumonia, DIGITAL ACCOUNT COORDINATOR. Reading Location: [facility] Physical Exam Narrative General: Alert, not really communicative HEENT: Atraumatic, PERRLA, EOMI, Normocephalic Oral: Moist Mucosa Neck: Supple, No JVD Lungs: Diminished, Normal air movement, No rhonchi, No wheeze, No rales Cardiovascular: Regular rate, Regular Rhythm, Normal S1, Normal S2, No murmurs Abdomen: Soft, Non Tender, Non-Distended, No Hepato-splenomegaly Extremities: Trace edema, Capillary Refill Less than 3 Seconds Skin: No rashes, No breakdown Musculoskeletal: No Tenderness to Palpation of Joints or Extremities Neurological: Chronic neurological changes with limited use of her right arm Psych/Mental Status: Flat Assessment & Plan Assessment/Plan (1) Hypernatremia: (2) Dysphagia: (3) (HFpEF) heart failure with preserved ejection fraction: (4) Acute blood loss anemia: (5) Atrial fibrillation with RVR: PLAN: Plan #Acute hypoxic respiratory failure * thought to be due to CHF and pneumonia * on zosyn. Was intubated and subsequently on 05/25/2025. * now down to 2L of oxygen. * Titrate oxygen to maintain sats above 90%. Breathing treatments with bronchodilators. * she completed a course of antibiotic 06/04/2025: Increased oxygen requirements today requiring BiPAP. Unclear as to what the etiology is however she does appear little bit volume overloaded so we will increase her Lasix dosing to IV twice daily 06/05/2025: Will attempt transfer to a tertiary care center at the request of family. In the meantime we will consult pulmonology for assistance. Will discontinue Lasix as her creatinine has increased again to 1.74 #Acute on chronic HFpEF * EF is normal at 60%, and mild concentric LVH and apical hypertrophic cardiomyopathy present. * received IV lasix 40mg x 1. * pro BNP: 86796 * on 3L oxygen today. Titrate oxygen to maintain sats >90% * breathing treatment with bronchodilators. * She is in cumulative positive balance by 5.945L * On p.o. Lasix 06/04/2025: Continue with IV Lasix for diuresis 06/05/2025: Will discontinue Lasix secondary to rise in her creatinine #Atrial fibrillation with RVR * new diagnosis. not anticoagulated. * now on metoprolol. RVR has resolved. #Diarrhea * Enteric pathogen and C Diff screen negative. * diarrhea has largely resolved #Hypokalemia: Resolved K is 3.8. Will give PO potassium to keep K >4 #Acute blood loss anemia secondary to concern for uterine cancer * Initial Hb on admission was 3.6. * transfused with 4 units of PRBCs. * Hb today is 7.8 * received IV iron. On IV PPI * EGD showed non bleeding cratered duodenal ulcers and multiple linear gastric ulcers (nonbleeding) * iron studies showed iron deficiency. * transfuse to keep HB >7 * to have repeat EGD in 8-12 weeks to evaluate for healing of gastric ulcers and obtain biopsies. * Noted to have vaginal bleeding. Transvaginal ultrasound done showed endometrial thickening with clinical correlation recommended. Thickness noted to be abnormal for patient's postmenopausal state. * Gynecology reviewed patient and did a bedside endometrial biopsy. CA 129 and CEA antigens ordered per gynecology * Per Dr. More, she is concerned about cancer and if this is proven patient will be referred to [facility] [facility] oncologist in [place] on outpatient basis. * Ca 125 elevated at eight 7.4 although CEA antigen is normal at 1.3. Will need follow-up on outpatient basis with gynecology 06/04/2025: Hemoglobin appears stabilized at 7.8, will recheck in the morning. Will discuss with family about transfer given the severity of her potential uterine cancer with her continued bleeding as well as now her increased oxygen requirements and respiratory status. 06/05/2025: Hemoglobin is 7.2, this could indicate a recurrent bleed versus equalization versus just normal lab variance however given her recent history wewill go ahead and provide her with a dose of Venofer and recheck hemoglobin in the morning pending transfer to a tertiary center #Nonsustained V. tach: * was on carvedilol but cardiology consulted and recommended discontinuing carvedilol and starting on metoprolol 50mg bid. Due to patient's low BP, was started on PO metoprolol 12.5mg bid. * Will increase to 25mg bid today. * to keep potassium >4 and magnesium >2. #Right ankle inversion * PT/OT worked with patient today and recommended ankle brace o/a of the right ankle inversion * PT/OT On board. fall precautions * case management to help facilitate getting a right ankle brace when they return tomorrow. #Dysphagia * speech therapy on board. * now on modified diet by speech therapy * Barium swallow showed moderate-severe oropharyngeal dysphagia #RAMEZ on CKD: Resolved. Cr is 1.30 today, which is around his baseline. 06/04/2025: Creatinine up to 1.49 today will continue to monitor in the setting ofincreasing her Lasix 06/05/2025: Creatinine is up to 1.74 today we will discontinue Lasix appreciate pulmonary's assistance #Hypernatremia: resolved. #History of stroke: not on anticoagulation or antiplatelets. s/p right sided hemiparesis. #Hypertension: on amlodipine, carvedilol and hydralazine which are on hold due to hypotension. Carvedilol resumed due to afib and nonsustained vtach. Carvedilol now switched to PO metoprolol per cardiology DVT: SCDs Charges/Coding Visit Charges Inpatient E&M: 91552 Subs Hosp L2 06/05/25 1708 <Electronically signed by Hiren Sanders MD> Cosigner Signature (if applicable): CC: ~ Signed [facility] Work Phone: [phone]) 622-402309-09-2025 Progress note Author Hiren Sanders [facility] Note Date/Time June 05, 2025 5:01pm [facility] Medical Records Department [address] [facility] [facility] [place] [address] Progress Note - Hospitalist 06/04/25 1801 MR#: [id number] Acct: [id number] Name: NANCY DELACRUZ Rep #:[id number] : 1965 59 From: Hiren suarez MD PCP: Dr. Sabrina Duran, DO Status:ADM IN Location: [place] [id number] Subjective Subjective Overnight required BiPAP and a dose of Lasix. She continues to be short of breath today which I am told is a significant departure from her previous situation over the last 2 days. Objective Data Objective Data Vital Signs: Vital Signs Temp Pulse Resp BP Pulse Ox O2 Del Method O2 Flow Rate 98.4 F 88 24 H 126/87 H 96 Nasal Cannula 8 06/04/25 08:03 06/04/25 13:26 06/04/25 13:26 06/04/25 08:03 06/04/25 16:02 06/04/25 16:02 06/04/25 16:02 FiO2 50 06/04/25 13:26 Oxygen Flow Rate (L/min) 8 Oxygen Delivery Method Nasal Cannula Weight: 189 lb 9.561 oz Body Mass Index (BMI) 31.5 Intake & Output: Intake and Output for Last 24 Hours 06/03/25 06/04/25 06/05/25 03:59 03:59 03:59 Intake Total 844 / 844 1030 / 1030 140 / 140 Output Total 1735 / 1735 1150 / 1150 1100 / 1100 Balance -891 / -891 -120 / -120 -960 / -960 Lab / Micro Data 06/05/25 04:57 06/05/25 04:57 Labs: Laboratory Results - last 24 hr 06/04/25 04:45: WBC 9.3, RBC 3.48 L, Hgb 7.8 L, Hct 27.8 L, MCV 79.9 L, MCH 22.4L, MCHC 28.1 L, RDW Std Deviation TNP, RDW Coeff of Federico TNP, Plt Count 413, MPV 10.4, Immature Gran % (Auto) 0.800, Neut % (Auto) 77.8 H, Lymph % (Auto) 11.4 L,[place] % (Auto) 7.8, Eos % (Auto) 1.7, Baso % (Auto) 0.5, Absolute Neuts (auto) 7.2, Absolute Lymphs (auto) 1.05, Nucleated RBC % 0, Plt Morphology Comment ADEQ, Polychromasia 1+, Anisocytosis 2+, Target Cells 1+, Ovalocytes 1+, Sodium 142, Potassium 4.3, Chloride 108, Carbon Dioxide 23.5, Anion Gap 11, BUN 27 H, Creatinine 1.49 H, Estim Creat Clear Calc 42.94 L, Est GFR (MDRD) Non-Af 40 L, BUN/Creatinine Ratio 18.1, Glucose 84, Calcium 8.1 Micro: Microbiology 05/29/25 10:00 Stool Enteric Bacteriology - Final 05/29/25 10:00 Stool Clostridioides difficile (PCR) - Final 05/21/25 15:15 Blood Culture (Wb) - Central Line Blood Culture - Final No growth in 5 days. 05/21/25 14:15 Sputum, Induced/Lukens Gram Stain - Final 05/21/25 14:15 Sputum, Induced/Lukens Respiratory Culture - Final 05/21/25 17:40 Urine Catheter - Fiore Urine Culture - Final Escherichia coli Physical Exam Narrative General: Alert, not really communicative, on BiPAP HEENT: Atraumatic, PERRLA, EOMI, Normocephalic Oral: Moist Mucosa Neck: Supple, No JVD Lungs: Diminished, Normal air movement, No rhonchi, No wheeze, No rales Cardiovascular: Regular rate, Regular Rhythm, Normal S1, Normal S2, No murmurs Abdomen: Soft, Non Tender, Non-Distended, No Hepato-splenomegaly Extremities: Trace edema, Capillary Refill Less than 3 Seconds Skin: No rashes, No breakdown Musculoskeletal: No Tenderness to Palpation of Joints or Extremities Neurological: Chronic neurological changes with limited use of her right arm Psych/Mental Status: Flat Assessment & Plan Assessment/Plan (1) Hypernatremia: (2) Dysphagia: (3) (HFpEF) heart failure with preserved ejection fraction: (4) Acute blood loss anemia: (5) Atrial fibrillation with RVR: PLAN: Plan #Acute hypoxic respiratory failure * thought to be due to CHF and pneumonia * on zosyn. Was intubated and subsequently on 05/25/2025. * now down to 2L of oxygen. * Titrate oxygen to maintain sats above 90%. Breathing treatments with bronchodilators. * she completed a course of antibiotic 06/04/2025: Increased oxygen requirements today requiring BiPAP. Unclear as to what the etiology is however she does appear little bit volume overloaded so we will increase her Lasix dosing to IV twice daily #Acute on chronic HFpEF * EF is normal at 60%, and mild concentric LVH and apical hypertrophic cardiomyopathy present. * received IV lasix 40mg x 1. * pro BNP: [id number] * on 3L oxygen today. Titrate oxygen to maintain sats >90% * breathing treatment with bronchodilators. * She is in cumulative positive balance by 5.945L * On p.o. Lasix 06/04/2025: Continue with IV Lasix for diuresis #Atrial fibrillation with RVR * new diagnosis. not anticoagulated. * now on metoprolol. RVR has resolved. #Diarrhea * Enteric pathogen and C Diff screen negative. * diarrhea has largely resolved #Hypokalemia: Resolved K is 3.8. Will give PO potassium to keep K >4 #Acute blood loss anemia secondary to concern for uterine cancer * Initial Hb on admission was 3.6. * transfused with 4 units of PRBCs. * Hb today is 7.8 * received IV iron. On IV PPI * EGD showed non bleeding cratered duodenal ulcers and multiple linear gastric ulcers (nonbleeding) * iron studies showed iron deficiency. * transfuse to keep HB >7 * to have repeat EGD in 8-12 weeks to evaluate for healing of gastric ulcers and obtain biopsies. * Noted to have vaginal bleeding. Transvaginal ultrasound done showed endometrial thickening with clinical correlation recommended. Thickness noted to be abnormal for patient's postmenopausal state. * Gynecology reviewed patient and did a bedside endometrial biopsy. CA 129 and CEA antigens ordered per gynecology * Per Dr. More, she is concerned about cancer and if this is proven patient will be referred to [facility] [employer] oncologist in [place] on outpatient basis. * Ca 125 elevated at eight 7.4 although CEA antigen is normal at 1.3. Will need follow-up on outpatient basis with gynecology 06/04/2025: Hemoglobin appears stabilized at 7.8, will recheck in the morning. Will discuss with family about transfer given the severity of her potential uterine cancer with her continued bleeding as well as now her increased oxygen requirements and respiratory status. #Nonsustained V. tach: * was on carvedilol but cardiology consulted and recommended discontinuing carvedilol and starting on metoprolol 50mg bid. Due to patient's low BP, was started on PO metoprolol 12.5mg bid. * Will increase to 25mg bid today. * to keep potassium >4 and magnesium >2. #Right ankle inversion * PT/OT worked with patient today and recommended ankle brace o/a of the right ankle inversion * PT/OT On board. fall precautions * case management to help facilitate getting a right ankle brace when they return tomorrow. #Dysphagia * speech therapy on board. * now on modified diet by speech therapy * Barium swallow showed moderate-severe oropharyngeal dysphagia #RAMEZ on CKD: Resolved. Cr is 1.30 today, which is around his baseline. 06/04/2025: Creatinine up to 1.49 today will continue to monitor in the setting ofincreasing her Lasix #Hypernatremia: resolved. #History of stroke: not on anticoagulation or antiplatelets. s/p right sided hemiparesis. #Hypertension: on amlodipine, carvedilol and hydralazine which are on hold due to hypotension. Carvedilol resumed due to afib and nonsustained vtach. Carvedilol now switched to PO metoprolol per cardiology DVT: SCDs 20-minute discussion on advance care planning with her brother and her mother onthe phone because of the concern for the diagnosis of uterine cancer and the need for possible transfer to a tertiary center Charges/Coding Multi Select Codes Visit Charges Visit Charges: 44938 Subs Hosp L2 Hospitalists' Procedures Procedures: 03730 Advncd Care Plan 30 Min 06/05/25 1701 <Electronically signed by Hiren Sanders MD> Cosigner Signature (if applicable): 06/05/25 0519 <Electronically signed by Eloisa More MD> CC: ~ Signed [facility] Work Phone: 1([phone]) 234-586809-09-2025 Progress note Author Julian Monsivais [facility] Note Date/Time June 05, 2025 12:29pm [facility] Medical Records Department [address] [place] [address] Progress Note - [place] Department Operator 06/05/25 1034 MR#: [id number] Acct: [id number] Name: NANCY DELACRUZ Rep #:[id number] : 1965 59 From: Julian Monsivais DO PCP: Dr. Sabrina Duran, DO Status:ADM IN Location: [place] [address] Assessment & Plan Assessment/Plan (1) Acute hypoxemic respiratory failure: (2) Elevated troponin: (3) Acute on chronic kidney failure: (4) New onset a-fib: (5) Shock: PLAN: Plan RECOMMENDATIONS: 1. Supplemental oxygen to maintain saturations at or above 90%. 2. BiPAP therapy with naps and nightly to assist with alveolar recruitment. 3. Hold diuretics given rising creatinine. 4. Obtain CTA chest to rule out pulmonary embolism. 5. Continue to monitor H&H. Transfuse if hemoglobin drops below 7 g/dL. 6. Dietary advancement per speech therapy. IMPRESSIONS: 1. Undifferentiated shock Resolved. Most likely secondary to hemorrhagic etiology in the setting of acuteblood loss anemia +/- sepsis related to pneumonia. The patient is currently hemodynamically stable. The patient completed a 7-day treatment course of antimicrobials. The patient is status post endoscopic evaluation by GI with gastric ulcers and nonbleeding duodenal ulcers noted. The patient will be continued on PPI therapy. 2. Acute hypoxemic respiratory failure Clinical concern for underlying pneumonia along with atelectasis. While there was initial concern for decompensated heart failure, the patient's echocardiogram revealed a normal ejection fraction. She was ultimately intubated on May 21, due to her inability to compensate from a respiratory perspective for her underlying metabolic acidosis. With supportive care and antimicrobials, the patient improved from a respiratory perspective and was ableto be extubated. At this time, recommend aggressive bronchopulmonary hygiene. Although the patient has been diuresed with improving oxygenation status, her creatinine is slowly rising. Therefore, recommend holding diuretics. Obtain CTA chest to rule out pulmonary embolism. Recommend BiPAP therapy with naps andnightly to assist with alveolar recruitment. 3. History of CVA with residual deficits/hypertension/hyperlipidemia Complicates care, management, recovery and prognosis. Continue supportive measures as noted above. Physical therapy to work with the patient. Dietary advancement per speech therapy. This note was generated with [employer] dictation software. It may contain incorrectwords, spelling, and punctuation that were not noted in checking the note beforesigning. Subjective Subjective The patient was seen and examined at the bedside this morning. Events from the last 24 hours have been reviewed. The patient is currently afebrile, hemodynamically stable and maintaining appropriate oxygen saturations on 6 L/minvia nasal cannula. I was asked to reevaluate the patient this morning on account of her hypoxemia. The patient has been diuresed over the course of the last several days, which has led to some improvement in her oxygenation status. However, the patient has developed worsening renal insufficiency. The patient is not currently on any form of pharmacologic DVT prophylaxis secondary to postmenopausal bleeding. Objective Data Objective Data The patient's most recent lab work, culture data and imaging studies have all been personally reviewed. Surface echocardiogram demonstrated mild concentric LVH with an ejection fraction of 60%. Vital Signs: Vital Signs Temp Pulse Resp BP Pulse Ox O2 Del Method O2 Flow Rate 97.5 F L 84 24 H 136/92 H 90 High Flow 6 06/05/25 04:08 06/05/25 04:08 06/05/25 04:08 06/05/25 04:08 06/05/25 09:36 06/05/25 07:00 06/05/25 09:38 FiO2 50 06/05/25 04:08 Oxygen Flow Rate (L/min) 6 Oxygen Delivery Method High Flow Weight: 182 lb 15.739 oz Body Mass Index (BMI) 30.4 Intake & Output: Intake and Output for Last 24 Hours 06/03/25 06/04/25 06/05/25 23:59 23:59 23:59 Intake Total 1134 / 1134 500 / 500 120 / 120 Output Total 350 / 1150 2300 / 2300 300 / 300 Balance 784 / -16 -1800 / -1800 -180 / -180 Lab / Micro Data Attestation: I reviewed the patient's lab results. 06/05/25 04:57 06/05/25 04:57 Labs: Laboratory Results - last 24 hr 06/05/25 04:57: WBC 6.5, RBC 3.20 L, Hgb 7.2 L, Hct 25.1 L, MCV 78.4 L, MCH 22.5L, MCHC 28.7 L, RDW Std Deviation TNP, RDW Coeff of Federico TNP, Plt Count 415, MPV 10.3, Immature Gran % (Auto) 0.300, Neut % (Auto) 67.0, Lymph % (Auto) 19.0, [place] % (Auto) 9.9, Eos % (Auto) 3.2, Baso % (Auto) 0.6, Absolute Neuts (auto) 4.4, Absolute Lymphs (auto) 1.23, Nucleated RBC % 0, Differential Comment SCANNED, Polychromasia RARE, Hypochromasia RARE, Anisocytosis 1+, Ovalocytes RARE, Sodium 142, Potassium 3.6, Chloride 104, Carbon Dioxide 25.5, Anion Gap 13, BUN 35 H, Creatinine 1.74 H, Estim Creat Clear Calc 36.77 L, Est GFR (MDRD) Non-Af 33 L, BUN/Creatinine Ratio 20.3 H, Glucose 94, Calcium 7.9, Phosphorus 4.3, Magnesium 2.1 Micro: Microbiology 05/29/25 10:00 Stool Enteric Bacteriology - Final 05/29/25 10:00 Stool Clostridioides difficile (PCR) - Final 05/21/25 15:15 Blood Culture (Wb) - Central Line Blood Culture - Final No growth in 5 days. 05/21/25 14:15 Sputum, Induced/Lukens Gram Stain - Final 05/21/25 14:15 Sputum, Induced/Lukens Respiratory Culture - Final 05/21/25 17:40 Urine Catheter - Fiore Urine Culture - Final Escherichia coli ABG Data ABG results: ABG 05/21/25 05/21/25 09:30 15:31 Specimen Type ART LJ Sample Site L Radial L Radial pH 7.46 H Bicarbonate Actual 16.4 L Total CO2 17 Base Excess -7 L O2 Saturation 97 O2 % 100.0 60.0 ABG pCO2 22.8 L ABG pO2 79 Kishan Test Positive VBG pH 7.41 VBG pO2 23 L VBG HCO3 20 L VBG Total CO2 21 L VBG O2 Sat (Calc) 42 L VBG Base Excess -4 L POC Mix VBG pCO2 Pt Tmp 32.4 L Respiration Rate 16 O2 Delivery Device NRB Adult Vent Vent Mode Not entered Tidal Volume 450.0 POC PEEP 5 Radiography Diagnostic Testing: Radiology Impression Chest X-Ray 05/28/25 03:30 IMPRESSION: Unchanged minimal left pleural effusion. Unchanged passive atelectatic airspace disease of the left lower lobe. Right internal jugular central catheter is unchanged. Enteric feeding tube has been removed in the interim. Endotracheal tube has been removed in the interim. Minimal decrease in pulmonary congestion/infiltrates. Enlarged cardiac silhouette. Reading Location: [place] [address] Physical Exam Const alert and no apparent distress Constitutional Narrative: Brother is present at the bedside. General Appearance: cooperative HEENT normocephalic and head/scalp atraumatic Eyes PERRL, EOMs intact bilaterally and conjunctivae normal Neck supple General: trachea midline and CVC in place Chest inspection of chest normal Resp Auscultation: diminished lung sounds; Negative for rales, rhonchi or wheezes Cardio regular rate, regular rhythm, S1 normal heart sound and S2 normal heart sound GI normal to inspection, nondistended, normoactive bowel sounds Extremity General Extremity: edema; Negative for clubbing Skin no rashes or lesions noted Neuro CN's II-XII intact bilaterally Neuro Narrative: Contracted right-sided extremities. Psych Mood & Affect: flat affect Charges/Coding Visit Charges Inpatient E&M: 08994 Subs Hosp L3 06/05/25 1229 <Electronically signed by Julian Monsivais DO> Cosigner Signature (if applicable): CC: ~ Signed [facility] Work Phone: [phone]) [phone] Radiology Diagnostic study [facility]09-09-2025 Progress note Author Eloisa More [facility] Note Date/Time June 05, 2025 9:07am [facility] Medical Records Department [address] [place] [address] Progress Note - OBGYN 06/05/25 0907 MR#: [id number] Acct: [id number] Name: NANCY DELACRUZ Rep #:[id number] : 1965 59 From: Eloisa woods MD PCP: Dr. Sabrina Duran, Status:ADM IN Location: [place] [address] Subjective Subjective Patient stable with minimal vaginal bleeding overnight. Objective Data Objective Data Vital Signs: Vital Signs Temp Pulse Resp BP Pulse Ox O2 Del Method O2 Flow Rate 97.5 F L 84 24 H 136/92 H 94 High Flow 7 06/05/25 04:08 06/05/25 04:08 06/05/25 04:08 06/05/25 04:08 06/05/25 07:00 06/05/25 07:00 06/05/25 07:00 FiO2 50 06/05/25 04:08 Oxygen Flow Rate (L/min) 7 Oxygen Delivery Method High Flow Weight: 182 lb 15.739 oz Body Mass Index (BMI) 30.4 Intake & Output: Intake and Output for Last 24 Hours 06/03/25 06/04/25 06/05/25 23:59 23:59 23:59 Intake Total 1134 / 1134 500 / 500 120 / 120 Output Total 350 / 1150 2300 / 2300 300 / 300 Balance 784 / -16 -1800 / -1800 -180 / -180 Lab / Micro Data 06/05/25 04:57 06/05/25 04:57 Labs: Laboratory Results - last 24 hr 06/05/25 04:57: WBC 6.5, RBC 3.20 L, Hgb 7.2 L, Hct 25.1 L, MCV 78.4 L, MCH 22.5L, MCHC 28.7 L, RDW Std Deviation TNP, RDW Coeff of Federico TNP, Plt Count 415, MPV 10.3, Immature Gran % (Auto) 0.300, Neut % (Auto) 67.0, Lymph % (Auto) 19.0, [place] % (Auto) 9.9, Eos % (Auto) 3.2, Baso % (Auto) 0.6, Absolute Neuts (auto) 4.4, Absolute Lymphs (auto) 1.23, Nucleated RBC % 0, Differential Comment SCANNED, Polychromasia RARE, Hypochromasia RARE, Anisocytosis 1+, Ovalocytes RARE, Sodium 142, Potassium 3.6, Chloride 104, Carbon Dioxide 25.5, Anion Gap 13, BUN 35 H, Creatinine 1.74 H, Estim Creat Clear Calc 36.77 L, Est GFR (MDRD) Non-Af 33 L, BUN/Creatinine Ratio 20.3 H, Glucose 94, Calcium 7.9, Phosphorus 4.3, Magnesium 2.1 Micro: Microbiology 05/29/25 10:00 Stool Enteric Bacteriology - Final 05/29/25 10:00 Stool Clostridioides difficile (PCR) - Final 05/21/25 15:15 Blood Culture (Wb) - Central Line Blood Culture - Final No growth in 5 days. 05/21/25 14:15 Sputum, Induced/Lukens Gram Stain - Final 05/21/25 14:15 Sputum, Induced/Lukens Respiratory Culture - Final 05/21/25 17:40 Urine Catheter - Fiore Urine Culture - Final Escherichia coli Radiography Diagnostic Testing: Radiology Impression Transvaginal US 06/01/25 08:26 IMPRESSION: Endometrial thickening. Clinical correlation recommended. Reading Location: [facility] Chest X-Ray 06/02/25 04:00 IMPRESSION: Right internal jugular central catheter is in good position with its tip at the atriocaval junction. Minimal decrease in multifocal pulmonary congestion/infiltrates. Unchanged minimal left pleural effusion. Enlarged cardiac silhouette. Reading Location: [address] Constitutional Constitutional: Reports systems reviewed and no addt'l complaints, except as documented Cardiovascular Cardiovascular: Reports systems reviewed and no addt'l complaints, except as documented Respiratory/Chest Respiratory/Chest: Reports systems reviewed and no addt'l complaints, except as documented Gastrointestinal Gastrointestinal: Reports systems reviewed and no addt'l complaints, except as documented Physical Exam Const alert, oriented x3 and no apparent distress HEENT Head and Scalp: atraumatic Resp normal respiratory effort GI soft to palpation and non-tender Assessment & Plan (1) Postmenopausal bleeding: COMMENT: EMB done, needs polyp removed as OP also. await pathology to determine intervention. cea and ca125 done- ca125 significantly elevated which is suspicious for cancer. (2) Endometrial thickening on ultrasound: PLAN: Plan stable, awaiting pathology report to determine recommendations for intervention. Charges/Coding Visit Charges Inpatient E&M: 18924 Subs Hosp L3 06/05/25906 <Electronically signed by Eloisa More MD> Cosigner Signature (if applicable): CC: ~ Signed [facility] Work Phone: [phone]) [phone] Progress note Author Eloisa More [facility] Note Date/Time June 05, 2025 5:59am [facility] Medical Records Department [address] [place] [address] Progress Note - OBGYN 06/02/25926 MR#: [id number] Acct: [id number] Name: NANCY DELACRUZ Rep #:[id number] : 1965 59 From: Eloisa woods MD PCP: Dr. Sabrina Duran, DO Status:ADM IN Location: [address] 1 Subjective Subjective Patient stable with minimal vaginal bleeding overnight. Objective Data Objective Data Vital Signs: Vital Signs Temp Pulse Resp BP Pulse Ox O2 Del Method O2 Flow Rate 97.3 F L 100 20 H 132/81 H 93 Nasal Cannula 2 06/02/25 02:47 06/02/25 02:47 06/02/25 02:47 06/02/25 02:47 06/02/25 02:47 06/02/25 03:31 06/02/25 03:31 FiO2 4 05/26/25 08:00 Oxygen Flow Rate (L/min) 2 Oxygen Delivery Method Nasal Cannula Weight: 186 lb 4.65 oz Body Mass Index (BMI) 30.9 Intake & Output: Intake and Output for Last 24 Hours 05/31/25 06/01/25 06/02/25 23:59 23:59 23:59 Intake Total 1050 / 1050 800 / 800 Output Total 850 / 1200 1590 / 1890 725 / 725 Balance 200 / -150 -790 / -1090 -725 / -725 Lab / Micro Data 06/05/25 04:57 06/04/25 04:45 Labs: Laboratory Results - last 24 hr 06/01/25 05:10: Magnesium 2.0 06/02/25 05:40: WBC 8.4, RBC 3.32 L, Hgb 7.4 L, Hct 26.0 L, MCV 78.3 L, MCH 22.3L, MCHC 28.5 L, RDW Std Deviation TNP, RDW Coeff of Federico TNP, Plt Count 331, MPV 9.7, Immature Gran % (Auto) 0.600, Neut % (Auto) 77.5 H, Lymph % (Auto) 13.3 L, [place] % (Auto) 6.6, Eos % (Auto) 1.5, Baso % (Auto) 0.5, Absolute Neuts (auto) 6.5, Absolute Lymphs (auto) 1.12, Nucleated RBC % 0, Differential Comment SCANNED, Sodium 141, Potassium 3.4, Chloride 109 H, Carbon Dioxide 21.7, Anion Gap 10, BUN 25 H, Creatinine 1.28 H, Estim Creat Clear Calc 49.55 L, Est GFR (MDRD) Non-Af 48 L, BUN/Creatinine Ratio 19.7, Glucose 100 H, Calcium 7.6, Magnesium 1.8 Micro: Microbiology 05/29/25 10:00 Stool Enteric Bacteriology - Final 05/29/25 10:00 Stool Clostridioides difficile (PCR) - Final 05/21/25 15:15 Blood Culture (Wb) - Central Line Blood Culture - Final No growth in 5 days. 05/21/25 14:15 Sputum, Induced/Lukens Gram Stain - Final 05/21/25 14:15 Sputum, Induced/Lukens Respiratory Culture - Final 05/21/25 17:40 Urine Catheter - Fiore Urine Culture - Final Escherichia coli Radiography Diagnostic Testing: Radiology Impression Transvaginal US 06/01/25 08:26 IMPRESSION: Endometrial thickening. Clinical correlation recommended. Reading Location: [facility] Chest X-Ray 06/02/25 04:00 IMPRESSION: Right internal jugular central catheter is in good position with its tip at the atriocaval junction. Minimal decrease in multifocal pulmonary congestion/infiltrates. Unchanged minimal left pleural effusion. Enlarged cardiac silhouette. Reading Location: [address] Constitutional Constitutional: Reports systems reviewed and no addt'l complaints, except as documented Cardiovascular Cardiovascular: Reports systems reviewed and no addt'l complaints, except as documented Respiratory/Chest Respiratory/Chest: Reports systems reviewed and no addt'l complaints, except as documented Gastrointestinal Gastrointestinal: Reports systems reviewed and no addt'l complaints, except as documented Physical Exam Const alert, oriented x3 and no apparent distress HEENT Head and Scalp: atraumatic Resp normal respiratory effort GI soft to palpation and non-tender Bimanual Exam - Vag & Uterus: uterus non-tender Uterus Palpation: uterus fundus firm (below Umbilicus) Assessment & Plan (1) Postmenopausal bleeding: COMMENT: EMB done, needs polyp removed as OP also. await pathology to determine intervention. cea and ca125 done- ca125 significantly elevated which is suspicious for cancer. (2) Endometrial thickening on ultrasound: PLAN: Plan stable, awaiting pathology report to determine recommendations for intervention. Charges/Coding Visit Charges Inpatient E&M: 21325 Subs Hosp L3 06/05/25 6059 <Electronically signed by Eloisa More MD> Cosigner Signature (if applicable): CC: ~ Signed [facility] [facility] Work Phone: [phone] 127-779809-09-2025 Progress note Author Eloisa More [facility] Note Date/Time June 05, 2025 3:50am [facility] Medical Records Department [address] [place] [address] Progress Note - OBGYN 06/04/25 1333 MR#: [id number] Acct: [id number] Name: NANCY DELACRUZ Rep #:[id number] : 1965 59 From: Eloisa woods MD PCP: Dr. Sabrina Duran, DO Status:ADM IN Location: [place] [address] Subjective Subjective Patient has worsening respiratory symptoms requiring bipap, but with minimal vaginal bleeding overnight. Objective Data Objective Data Vital Signs: Vital Signs Temp Pulse Resp BP Pulse Ox O2 Del Method O2 Flow Rate 98.4 F 88 24 H 126/87 H 96 Bi-pap 12 06/04/25 08:03 06/04/25 13:26 06/04/25 13:26 06/04/25 08:03 06/04/25 13:26 06/04/25 10:00 06/04/25 08:03 FiO2 50 06/04/25 13:26 Oxygen Flow Rate (L/min) 12 Oxygen Delivery Method Bi-pap Weight: 189 lb 9.561 oz Body Mass Index (BMI) 31.5 Intake & Output: Intake and Output for Last 24 Hours 06/02/25 06/03/25 06/04/25 23:59 23:59 23:59 Intake Total 740 / 740 1134 / 1134 140 / 140 Output Total 2034 / 203 350 / 1150 1900 / 1900 Balance -1295 / -1295 784 / -16 -1760 / -1760 Lab / Micro Data 06/04/25 04:45 06/04/25 04:45 Labs: Laboratory Results - last 24 hr 06/04/25 04:45: WBC 9.3, RBC 3.48 L, Hgb 7.8 L, Hct 27.8 L, MCV 79.9 L, MCH 22.4L, MCHC 28.1 L, RDW Std Deviation TNP, RDW Coeff of Federico TNP, Plt Count 413, MPV 10.4, Immature Gran % (Auto) 0.800, Neut % (Auto) 77.8 H, Lymph % (Auto) 11.4 L,Monmouth % (Auto) 7.8, Eos % (Auto) 1.7, Baso % (Auto) 0.5, Absolute Neuts (auto) 7.2, Absolute Lymphs (auto) 1.05, Nucleated RBC % 0, Plt Morphology Comment ADEQ, Polychromasia 1+, Anisocytosis 2+, Target Cells 1+, Ovalocytes 1+, Sodium 142, Potassium 4.3, Chloride 108, Carbon Dioxide 23.5, Anion Gap 11, BUN 27 H, Creatinine 1.49 H, Estim Creat Clear Calc 42.94 L, Est GFR (MDRD) Non-Af 40 L, BUN/Creatinine Ratio 18.1, Glucose 84, Calcium 8.1 Micro: Microbiology 05/29/25 10:00 Stool Enteric Bacteriology - Final 05/29/25 10:00 Stool Clostridioides difficile (PCR) - Final 05/21/25 15:15 Blood Culture (Wb) - Central Line Blood Culture - Final No growth in 5 days. 05/21/25 14:15 Sputum, Induced/Lukens Gram Stain - Final 05/21/25 14:15 Sputum, Induced/Lukens Respiratory Culture - Final 05/21/25 17:40 Urine Catheter - Fiore Urine Culture - Final Escherichia coli Radiography Diagnostic Testing: Radiology Impression Transvaginal US 06/01/25 08:26 IMPRESSION: Endometrial thickening. Clinical correlation recommended. Reading Location: [facility] Chest X-Ray 06/02/25 04:00 IMPRESSION: Right internal jugular central catheter is in good position with its tip at the atriocaval junction. Minimal decrease in multifocal pulmonary congestion/infiltrates. Unchanged minimal left pleural effusion. Enlarged cardiac silhouette. Reading Location: [address] Constitutional Constitutional: Reports systems reviewed and no addt'l complaints, except as documented Cardiovascular Cardiovascular: Reports systems reviewed and no addt'l complaints, except as documented Respiratory/Chest Respiratory/Chest: Reports systems reviewed and no addt'l complaints, except as documented Gastrointestinal Gastrointestinal: Reports systems reviewed and no addt'l complaints, except as documented Physical Exam Const alert Constitutional Narrative: difficult to obtain history and understand due to bipap HEENT Head and Scalp: atraumatic Resp Resp Narrative: on bipap GI soft to palpation and non-tender Assessment & Plan (1) Postmenopausal bleeding: COMMENT: EMB done, needs polyp removed as OP also. await pathology to determine intervention. cea and ca125 done- ca125 significantly elevated which is suspicious for cancer. (2) Endometrial thickening on ultrasound: PLAN: Plan stable, awaiting pathology report to determine recommendations for intervention for vaginal bleeding. suspicious for cancer due to anemia and elevated ca125, and thickened endometrium. would refer to Dr Iqbal group at [facility]. Charges/Coding Visit Charges Inpatient E&M: 11181 Subs Hosp L3 06/05/25 0350 <Electronically signed by Eloisa More MD> Cosigner Signature (if applicable): CC: ~ Signed [facility] Work Phone: [phone] Progress note Author [facility] Note Date/Time June 04, 2025 2:59am [facility] Medical Records Department [address] [place] [address] Progress Note - Hospitalist 06/04/25258 MR#: [id number] Acct: [id number] Name: NANCY DELACRUZ Rep #:[id number] : 1965 59 From: Irena [place] MD PCP: Dr. Sabrina Duran, DO Status:ADM IN Location: [place] [address] Hospitalist Note Patient with increased oxygen requirements previously at 4 L, now up to 12 L, crackles on exam increasing from previous, will administer Lasix 40 mg IV x 1 and continue to monitor. 06/04/25258 <Electronically signed by Irena [place] MD> Cosigner Signature (if applicable): CC: ~ Signed [facility] Work Phone: [phone] Progress note Author Puja Almeida [facility] Note Date/Time June 03, 2025 5:24pm [facility] Medical Records Department [address] [place] [address] Progress Note - Cardiology 06/03/25 1722 MR#: [id number] Acct: [id number] Name: NANCY DELACRUZ Rep #:[id number] : 1965 59 From: Puja agustin MD PCP: Dr. Sabrina Duran, DO Status:ADM IN Location: [place] [address] Subjective Subjective Denies any cardiac complaints Objective Data Vital Signs: Vital Signs Temp Pulse Resp BP Pulse Ox O2 Del Method O2 Flow Rate 97.7 F L 102 H 18 108/78 96 Nasal Cannula 2 06/03/25 09:00 06/03/25 11:57 06/03/25 09:00 06/03/25 09:00 06/03/25 09:00 06/03/25 09:00 06/03/25 09:12 FiO2 4 05/26/25 08:00 Oxygen Flow Rate (L/min) 2 Oxygen Delivery Method Nasal Cannula Weight: 189 lb 2.506 oz Body Mass Index (BMI) 31.4 Intake & Output: Intake and Output for Last 24 Hours 06/01/25 06/02/25 06/03/25 23:59 23:59 23:59 Intake Total 800 / 800 740 / 740 694 / 694 Output Total 1590 / 1890 2034 / 2034 350 / 350 Balance -790 / -1090 -1295 / -1295 344 / 344 Lab / Micro Data 06/03/25 05:10 06/03/25 05:10 Labs: Laboratory Results - last 24 hr 06/02/25 05:40: Carcinoembryonic Ag 1.3, CA 125 Antigen 87.4 H 06/03/25 05:10: WBC 8.5, RBC 3.42 L, Hgb 7.8 L, Hct 26.7 L, MCV 78.1 L, MCH 22.8L, MCHC 29.2 L, RDW Std Deviation Not Reportable, RDW Coeff of Federico Not Reportable, Plt Count 366, MPV 10.1, Immature Gran % (Auto) 0.500, Neut % (Auto)78.6 H, Lymph % (Auto) 11.6 L, Monmouth % (Auto) 7.2, Eos % (Auto) 1.5, Baso % (Auto) 0.6, Absolute Neuts (auto) 6.7, Absolute Lymphs (auto) 0.99, Nucleated RBC % 0, Differential Comment SCANNED, Sodium 142, Potassium 3.8, Chloride 109 H, Carbon Dioxide 21.8, Anion Gap 11, BUN 26 H, Creatinine 1.30 H, Estim Creat Clear Calc 48.78 L, Est GFR (MDRD) Non-Af 47 L, BUN/Creatinine Ratio 19.8, Glucose 88, Calcium 7.8, Magnesium 2.5 H Cardiology Labs/Tests 06/03/25 05:10: WBC 8.5, RBC 3.42 L, Hgb 7.8 L, Hct 26.7 L, MCV 78.1 L, MCH 22.8L, MCHC 29.2 L, Plt Count 366, MPV 10.1, Immature Gran % (Auto) 0.500, Neut % (Auto) 78.6 H, Lymph % (Auto) 11.6 L, Monmouth % (Auto) 7.2, Eos % (Auto) 1.5, Baso % (Auto) 0.6, Absolute Neuts (auto) 6.7, Nucleated RBC % 0, Sodium 142, Potassium 3.8, Chloride 109 H, Carbon Dioxide 21.8, Anion Gap 11, BUN 26 H, Creatinine 1.30 H, Est GFR (MDRD) Non-Af 47 L, BUN/Creatinine Ratio 19.8, [id number], Calcium 7.8, Magnesium 2.5 H Rhythm: EKG: ECHO: Stress Test: Cardiac Cath: PCI: CT Surgery: Holter monitor: EPS: PPM: CXR: Chest CT Scan: Physical Exam Const alert HEENT normocephalic Eyes no scleral icterus Resp normal respiratory effort Cardio Cardio Narrative: Irregular rhythm Assessment & Plan Assessment/Plan (1) Atrial fibrillation with RVR: PLAN: Recommend increasing metoprolol to 50 mg p.o. twice daily. Patient has had severe bleeding resulting in shock even without anticoagulation. No anticoagulation at this time. As an outpatient this could be considered. (2) Nonsustained ventricular tachycardia: PLAN: Patient continues to have runs of nonsustained V. tach. Recommend increasing beta-charlotte to 50 mg p.o. twice daily. Charges/Coding Visit Charges Inpatient E&M: 26050 Subs Hosp L2 06/03/25 1724 <Electronically signed by Puja Almeida MD> Cosigner Signature (if applicable): CC: ~ Signed [facility] Work Phone: [phone]) [phone] Progress note Author Yanet Zhou [facility] Note Date/Time June 03, 2025 3:23pm [facility] Medical Records Department [address] [place] [address] Progress Note 06/03/25 1103 MR#: [id number] Acct: [id number] Name: NANCY DELACRUZ Rep #:[id number] : 1965 59 From: Yanet Zhou MD PCP: Dr. Sabrina Duran, DO Status:ADM IN Location: [place] [address] Subjective Subjective Patient seen and examined with her nurse by her bedside. Her brother was by her bedside. She had no active complaints and had an uneventful night. Vaginal bleeding has not recurred. She is minimally tachycardic, but has remained hemodynamically stable otherwise. Per PT/OT< her right knee is very inverted, and so she will benefit from an ankle brace. CA 125 is also markedly elevated. Objective Data Objective Data Vital Signs: Vital Signs Temp Pulse Resp BP Pulse Ox O2 Del Method O2 Flow Rate 97.7 F L 102 H 18 108/78 96 Nasal Cannula 2 06/03/25 09:00 06/03/25 10:35 06/03/25 09:00 06/03/25 09:00 06/03/25 09:00 06/03/25 09:00 06/03/25 09:12 FiO2 4 05/26/25 08:00 Oxygen Flow Rate (L/min) 2 Oxygen Delivery Method Nasal Cannula Weight: 186 lb 4.65 oz Body Mass Index (BMI) 30.9 Intake & Output: Intake and Output for Last 24 Hours 06/01/25 06/02/25 06/03/25 23:59 23:59 23:59 Intake Total 800 / 800 740 / 740 454 / 454 Output Total 1590 / 1890 2034 / 2034 150 / 150 Balance -790 / -1090 -1295 / -1295 304 / 304 Lab / Micro Data 06/03/25 05:10 06/03/25 05:10 Labs: Laboratory Results - last 24 hr 06/02/25 05:40: Carcinoembryonic Ag 1.3, CA 125 Antigen 87.4 H 06/03/25 05:10: WBC 8.5, RBC 3.42 L, Hgb 7.8 L, Hct 26.7 L, MCV 78.1 L, MCH 22.8L, MCHC 29.2 L, RDW Std Deviation Not Reportable, RDW Coeff of Federico Not Reportable, Plt Count 366, MPV 10.1, Immature Gran % (Auto) 0.500, Neut % (Auto)78.6 H, Lymph % (Auto) 11.6 L, Monmouth % (Auto) 7.2, Eos % (Auto) 1.5, Baso % (Auto) 0.6, Absolute Neuts (auto) 6.7, Absolute Lymphs (auto) 0.99, Nucleated RBC % 0, Differential Comment SCANNED, Sodium 142, Potassium 3.8, Chloride 109 H, Carbon Dioxide 21.8, Anion Gap 11, BUN 26 H, Creatinine 1.30 H, Estim Creat Clear Calc 48.78 L, Est GFR (MDRD) Non-Af 47 L, BUN/Creatinine Ratio 19.8, Glucose 88, Calcium 7.8, Magnesium 2.5 H Micro: Microbiology 05/29/25 10:00 Stool Enteric Bacteriology - Final 05/29/25 10:00 Stool Clostridioides difficile (PCR) - Final 05/21/25 15:15 Blood Culture (Wb) - Central Line Blood Culture - Final No growth in 5 days. 05/21/25 14:15 Sputum, Induced/Lukens Gram Stain - Final 05/21/25 14:15 Sputum, Induced/Lukens Respiratory Culture - Final 05/21/25 17:40 Urine Catheter - Fiore Urine Culture - Final Escherichia coli Physical Exam Const alert, oriented x3 and no apparent distress Constitutional Narrative: frail, weak General Appearance: cooperative HEENT normocephalic, head/scalp atraumatic, moist oral mucous membranes and oropharynxnormal Eyes PERRL and EOMs intact bilaterally Neck no lymphadenopathy, supple and no JVD Lymph Lymphatic: no lymphedema noted Resp Resp Narrative: mildly diminished breath sounds bibasally, no wheezes or crackles. Remains on 3 L of oxygen by nasal canula. Cardio regular rate, regular rhythm, S1 normal heart sound, S2 normal heart sound and no murmurs Cardio Narrative: Irregularly irregular GI normal to inspection, nondistended, normoactive bowel sounds, soft to palpation,non-tender and non-distended Extremity normal to inspection, full ROM and normal capillary refill Extremity Narrative: Bilateral lower extremity edema 2+ edema. General Extremity: edema bilateral lower extremity Details: mild and no tenderness to palpation of joints or extremities Neuro no focal motor deficits and no sensory deficits noted Neuro Narrative: Right sided weakness, which is chronic Sensorium / Orientation: awake and alert Motor Exam: general weakness Psych thought process normal and cooperative Appearance: appropriate Assessment & Plan Assessment/Plan (1) Hypernatremia: (2) Dysphagia: (3) (HFpEF) heart failure with preserved ejection fraction: (4) Acute blood loss anemia: (5) Atrial fibrillation with RVR: PLAN: Plan #Acute hypoxic respiratory failure * thought to be due to CHF and pneumonia * on zosyn. Was intubated and subsequently on 05/25/2025. * now down to 2L of oxygen. * Titrate oxygen to maintain sats above 90%. Breathing treatments with bronchodilators. * she completed a course of antibiotics #Acute on chronic HFpEF * EF is normal at 60%, and mild concentric LVH and apical hypertrophic cardiomyopathy present. * received IV lasix 40mg x 1. * pro BNP: 31028 * on 3L oxygen today. Titrate oxygen to maintain sats >90% * breathing treatment with bronchodilators. * She is in cumulative positive balance by 5.945L * On p.o. Lasix * #Atrial fibrillation with RVR * new diagnosis. not anticoagulated. * now on metoprolol. RVR has resolved. * #Diarrhea * Enteric pathogen and C Diff screen negative. * diarrhea has largely resolved * #Hypokalemia: Resolved K is 3.8. Will give PO potassium to keep K >4 #Acute blood loss anemia * Initial Hb on admission was 3.6. * transfused with 4 units of PRBCs. * Hb today is 7.8 * received IV iron. On IV PPI * EGD showed non bleeding cratered duodenal ulcers and multiple linear gastric ulcers (nonbleeding) * iron studies showed iron deficiency. * transfuse to keep HB >7 * to have repeat EGD in 8-12 weeks to evaluate for healing of gastric ulcers and obtain biopsies. * Noted to have vaginal bleeding. Transvaginal ultrasound done showed endometrial thickening with clinical correlation recommended. Thickness noted to be abnormal for patient's postmenopausal state. * Gynecology reviewed patient and did a bedside endometrial biopsy. CA 129 and CEA antigens ordered per gynecology * Per Dr. More, she is concerned about cancer and if this is proven patient will be referred to [facility] oncologist in [place] on outpatient basis. * Ca 125 elevated at eight 7.4 although CEA antigen is normal at 1.3. Will need follow-up on outpatient basis with gynecology * #Nonsustained V. tach: * was on carvedilol but cardiology consulted and recommended discontinuing carvedilol and starting on metoprolol 50mg bid. Due to patient's low BP, was started on PO metoprolol 12.5mg bid. * Will increase to 25mg bid today. * to keep potassium >4 and magnesium >2. * #Right ankle inversion * PT/OT worked with patient today and recommended ankle brace o/a of the right ankle inversion * PT/OT On board. fall precautions * case management to help facilitate getting a right ankle brace when they return tomorrow. * #Dysphagia * speech therapy on board. * now on modified diet by speech therapy * Barium swallow showed moderate-severe oropharyngeal dysphagia * #RAMEZ on CKD: Resolved. Cr is 1.30 today, which is around his baseline. #Hypernatremia: resolved. #History of stroke: not on anticoagulation or antiplatelets. s/p right sided hemiparesis. #Hypertension: on amlodipine, carvedilol and hydralazine which are on hold due to hypotension. Carvedilol resumed due to afib and nonsustained vtach. Carvedilol now switched to PO metoprolol per cardiology DVT prophylaxis: SCDs. Not anticoagulated o/a of acute on chronic anemia Disposition: Anticipate DC over the next 1 to 2 days after ankle brace has been obtained. Charges/Coding Visit Charges Inpatient E&M: 62892 Subs Hosp L2 06/03/25 0152 <Electronically signed by Yanet Zhou MD> Yanet Zhou MD Cosigner Signature (if applicable): CC: ~ Signed [facility] Work Phone: [phone] Progress note Author Irena [facility] Note Date/Time June 02, 2025 10:49pm [facility] Medical Records Department [address] [place] [address] Progress Note - Hospitalist 06/02/258 MR#: [id number] Acct: [id number] Name: NANCY DELACRUZ Rep #:[id number] : 1965 59 From: Irena [place] MD PCP: Dr. Sabrina Duran, DO Status:ADM IN Location: [place] [address] Hospitalist Note Patient with recurrent asymptomatic versus a VT. Reviewed cardiology current recommendations with potassium greater than 4, magnesium greater than 2. Potassium earlier in the day 3.4 with supplementation given, magnesium 1.8. Will administer magnesium supplementation and plan repeat magnesium level and potassium level in AM. Additionally cardiology recommended changing from Coreg to metoprolol, will transition from Coreg to metoprolol tartrate and start at 12.5 mg p.o. twice daily with dose now. 06/02/252248 <Electronically signed by Irena [place] MD> Cosigner Signature (if applicable): CC: ~ Signed [facility] Work Phone: [phone] Progress note Author Yanet Zhou [facility] Note Date/Time June 02, 2025 3:56pm [facility] Medical Records Department [address] [place] [address] Progress Note 06/02/25 1231 MR#: [id number] Acct: [id number] Name: NANCY DELACRUZ Rep #:[id number] : 1965 59 From: Yanet Zhou MD PCP: Dr. Sabrina Duran, DO Status:ADM IN Location: [place] [address] Subjective Subjective Patient seen and examined with nurse by his bedside. She had no active complaints. Review of systems is otherwise negative. Pulse rate is elevated at 114. She remains on 3L of oxygen. Objective Data Objective Data Vital Signs: Vital Signs Temp Pulse Resp BP Pulse Ox O2 Del Method O2 Flow Rate 97.4 F L 114 H 20 H 130/76 H 92 Nasal Cannula 3 06/02/25 08:45 06/02/25 08:45 06/02/25 08:45 06/02/25 08:45 06/02/25 08:45 06/02/25 08:45 06/02/25 08:45 FiO2 4 05/26/25 08:00 Oxygen Flow Rate (L/min) 3 Oxygen Delivery Method Nasal Cannula Weight: 186 lb 4.65 oz Body Mass Index (BMI) 30.9 Intake & Output: Intake and Output for Last 24 Hours 05/31/25 06/01/25 06/02/25 23:59 23:59 23:59 Intake Total 1050 / 1050 800 / 800 100 / 100 Output Total 850 / 1200 1590 / 1890 725 / 725 Balance 200 / -150 -790 / -1090 -625 / -625 Lab / Micro Data 06/02/25 05:40 06/02/25 05:40 Labs: Laboratory Results - last 24 hr 06/02/25 05:40: WBC 8.4, RBC 3.32 L, Hgb 7.4 L, Hct 26.0 L, MCV 78.3 L, MCH 22.3L, MCHC 28.5 L, RDW Std Deviation TNP, RDW Coeff of Federico TNP, Plt Count 331, MPV 9.7, Immature Gran % (Auto) 0.600, Neut % (Auto) 77.5 H, Lymph % (Auto) 13.3 L, [place] % (Auto) 6.6, Eos % (Auto) 1.5, Baso % (Auto) 0.5, Absolute Neuts (auto) 6.5, Absolute Lymphs (auto) 1.12, Nucleated RBC % 0, Differential Comment SCANNED, Sodium 141, Potassium 3.4, Chloride 109 H, Carbon Dioxide 21.7, Anion Gap 10, BUN 25 H, Creatinine 1.28 H, Estim Creat Clear Calc 49.55 L, Est GFR (MDRD) Non-Af 48 L, BUN/Creatinine Ratio 19.7, Glucose 100 H, Calcium 7.6, Magnesium 1.8 Micro: Microbiology 05/29/25 10:00 Stool Enteric Bacteriology - Final 05/29/25 10:00 Stool Clostridioides difficile (PCR) - Final 05/21/25 15:15 Blood Culture (Wb) - Central Line Blood Culture - Final No growth in 5 days. 05/21/25 14:15 Sputum, Induced/Lukens Gram Stain - Final 05/21/25 14:15 Sputum, Induced/Lukens Respiratory Culture - Final 05/21/25 17:40 Urine Catheter - Fiore Urine Culture - Final Escherichia coli Radiography Diagnostic Testing: Radiology Impression Chest X-Ray 06/02/25 04:00 IMPRESSION: Right internal jugular central catheter is in good position with its tip at the atriocaval junction. Minimal decrease in multifocal pulmonary congestion/infiltrates. Unchanged minimal left pleural effusion. Enlarged cardiac silhouette. Reading Location: [place] [address] Physical Exam Const alert and no apparent distress Constitutional Narrative: frail, weak General Appearance: cooperative HEENT normocephalic, head/scalp atraumatic, moist oral mucous membranes and oropharynxnormal Eyes PERRL and EOMs intact bilaterally Neck supple and no JVD Lymph Lymphatic: no lymphedema noted Resp Resp Narrative: mildly diminished breath sounds bibasally, no wheezes or crackles. Down to 3 L of oxygen by nasal canula. Cardio regular rate, regular rhythm, S1 normal heart sound, S2 normal heart sound and no murmurs Cardio Narrative: Irregularly irregular GI normal to inspection, nondistended, normoactive bowel sounds, soft to palpation,non-tender, non-distended and hepatosplenomegaly Extremity normal to inspection, full ROM, normal capillary refill and no clubbing, cyanosis or edema Extremity Narrative: Bilateral lower extremity edema 2+ edema. General Extremity: edema bilateral lower extremity Details: mild and no tenderness to palpation of joints or extremities Neuro no focal motor deficits and no sensory deficits noted Neuro Narrative: Right sided weakness, which is chronic Sensorium / Orientation: awake and alert Motor Exam: general weakness Psych thought process normal and cooperative Appearance: appropriate Assessment & Plan Assessment/Plan (1) Hypernatremia: (2) Dysphagia: (3) (HFpEF) heart failure with preserved ejection fraction: (4) Acute blood loss anemia: (5) Atrial fibrillation with RVR: PLAN: Plan #Acute hypoxic respiratory failure * thought to be due to CHF and pneumonia * on zosyn. Was intubated and subsequently on 05/25/2025. * now down to 2L of oxygen. * Titrate oxygen to maintain sats above 90%. Breathing treatments modalities. #Acute on chronic HFpEF * EF is normal at 60%, and mild concentric LVH and apical hypertrophic cardiomyopathy present. * received IV lasix 40mg x 1. * pro BNP: 63025 * down to 2L of oxygen today. Titrate oxygen to maintain sats >90% * breathing treatment with bronchodilators. * She is in cumulative positive balance by 5.945L * On p.o. Lasix * #Atrial fibrillation with RVR * new diagnosis. not anticoagulated. * Not on rate limiting medications due to hypotension. * HR now improved. On carvedilol, now resumed. * #Diarrhea * patient developed diarrhea overnight and had several episodes of diarrhea. * resolving. Enteric pathogen and C Diff screen negative. * diarrhea has largely resolved * #Hypokalemia: Resolving. K is 3.7. #Acute blood loss anemia * Initial Hb on admission was 3.6. * transfused with 4 units of PRBCs. * Hb today is 7.4 * received IV iron. On IV PPI * EGD showed non bleeding cratered duodenal ulcers and multiple linear gastric ulcers (nonbleeding) * iron studies showed iron deficiency. * transfuse to keep HB >7 * to have repeat EGD in 8-12 weeks to evaluate for healing of gastric ulcers and obtain biopsies. * Noted to have vaginal bleeding. Transvaginal ultrasound done showed endometrial thickening with clinical correlation recommended. Thickness noted to be abnormal for patient's postmenopausal state. * Gynecology reviewed patient and did a bedside endometrial biopsy. CA 129 and CEA antigens ordered per gynecology * Per Dr. More, she is concerned about cancer and if this is proven patient will be referred to [facility] [employer] [facility] oncologist in [place] on outpatient basis. * #Nonsustained V. tach: * Patient noted to have a brief run of nonsustained V. tach overnight again * Potassium is 3.4 today and magnesium is 1.8. On carvedilol 3.125 mg twice daily. Will continue with monitoring. * Carvedilol increased to 6.25 mg twice daily and cardiology consulted. * #Dysphagia * speech therapy on board. * now on modified diet by speech therapy * Barium swallow showed moderate-severe oropharyngeal dysphagia * #RAMEZ on CKD: Resolved. Cr is 1.28 today. #Hypernatremia: resolved. #History of stroke: not on anticoagulation or antiplatelets. s/p right sided hemiparesis. #Hypertension: on amlodipine, carvedilol and hydralazine which are on hold due to hypotension. Carvedilol resumed due to afib and nonsustained vtach. DVT prophylaxis: SCDs. Not anticoagulated o/a of acute on chronic anemia Charges/Coding Visit Charges Inpatient E&M: 74460 Subs Hosp L2 06/02/25 1556 <Electronically signed by Yanet Zhou MD> Yanet Zhou MD Cosigner Signature (if applicable): CC: ~ Signed [facility] Work Phone: [phone]) 773-266609-06-2025 Consult note Author Puja Almeida [facility] Note Date/Time June 02, 2025 12:12pm [facility] Medical Records Department [address] [place] [address] Consultation - Cardiology 06/02/25 1205 MR#: [id number] Acct: [id number] Name: NANCY DELACRUZ Rep #:[id number] : 1965 59 From: Puja agustin MD PCP: Dr. Sabrina Duran, DO Status:ADM IN Location: [place] [address] Assessment & Plan Assessment/Plan (1) Atrial fibrillation with RVR: PLAN: Recommend discontinuing carvedilol and starting the patient on metoprolol 50 mg p.o. twice daily. Patient has had severe bleeding resulting in shock evenwithout anticoagulation. No anticoagulation at this time. As an outpatient this could be considered. (2) Nonsustained ventricular tachycardia: PLAN: Recommend maintaining the potassium around 4 and magnesium at 2. Recommend changing the beta-charlotte to metoprolol as well. HPI Consult Data Date of Consult: 06/02/25 HPI Narrative HPI Narrative: NANCY DELACRUZ, is a 59 F who presents with altered mental status. She was found to have severe anemia with a hemoglobin of 3.6. EGD revealed nonbleeding ulcers. Uterine bleeding is being considered as the possible culprit. Patient presented with A-fib with RVR which appears to be a new diagnosis. She has history of stroke. She is a poor historian and apparently requires [id number] assistance from her family members who take care of her. Cardiology consult was requested as she has been having some episodes of nonsustained V. tach. The longest run is 6 beats. She appears to have had about 6 or 7 episodes over the last 24 hours. She was on carvedilol 3.125 mg p.o. twice daily as an outpatient which was initially held as patient had presented with shock and has now been increased to 6.25 mg twice daily. She hada potassium of 3.7 and magnesium of 2 yesterday and today the potassium was 3.4 with a magnesium of 1.8. She had a 2D echo which revealed preserved EF and apical hypertrophic cardiomyopathy. [facility] Medical History Hypertension CVA (cerebral vascular accident) Home Medications ?Medication ?Instructions ?Recorded ?Last Taken ?Type amlodipine 10 mg tablet 10 mg PO DAILY 05/21/2504/28 History carvedilol 3.125 mg tablet 3.125 mg PO BID 05/21/25 History hydralazine 100 mg tablet 100 mg PO TID 05/21/2505/20 History simvastatin 20 mg tablet 20 mg PO DAILY 05/21/2504/28 History Allergy/AdvReac Type Severity Reaction Status Date / Time No Known Allergies Allergy Verified 05/21/25 09:27 Family History unable to obtain Surgical History unable to obtain Social History Smoking Status: Never smoker Physical Exam Const alert HEENT normocephalic Eyes no scleral icterus Resp normal respiratory effort Cardio Cardio Narrative: Irregular rhythm Charges/Coding Visit Charges Inpatient E&M: 56906 Init Hosp L2 Objective Data Vital Signs: Vital Signs Temp Pulse Resp BP Pulse Ox O2 Del Method O2 Flow Rate 97.4 F L 114 H 20 H 130/76 H 92 Nasal Cannula 3 06/02/25 08:45 06/02/25 08:45 06/02/25 08:45 06/02/25 08:45 06/02/25 08:45 06/02/25 08:45 06/02/25 08:45 FiO2 4 05/26/25 08:00 Oxygen Flow Rate (L/min) 3 Oxygen Delivery Method Nasal Cannula Weight: 186 lb 4.65 oz Body Mass Index (BMI) 30.9 Intake & Output: Intake and Output for Last 24 Hours 05/31/25 06/01/25 06/02/25 23:59 23:59 23:59 Intake Total 1050 / 1050 800 / 800 100 / 100 Output Total 850 / 1200 1590 / 1890 725 / 725 Balance 200 / -150 -790 / -1090 -625 / -625 Lab / Micro Data 06/02/25 05:40 06/02/25 05:40 Labs: Laboratory Results - last 24 hr 06/02/25 05:40: WBC 8.4, RBC 3.32 L, Hgb 7.4 L, Hct 26.0 L, MCV 78.3 L, MCH 22.3L, MCHC 28.5 L, RDW Std Deviation TNP, RDW Coeff of Federico TNP, Plt Count 331, MPV 9.7, Immature Gran % (Auto) 0.600, Neut % (Auto) 77.5 H, Lymph % (Auto) 13.3 L, [place] % (Auto) 6.6, Eos % (Auto) 1.5, Baso % (Auto) 0.5, Absolute Neuts (auto) 6.5, Absolute Lymphs (auto) 1.12, Nucleated RBC % 0, Differential Comment SCANNED, Sodium 141, Potassium 3.4, Chloride 109 H, Carbon Dioxide 21.7, Anion Gap 10, BUN 25 H, Creatinine 1.28 H, Estim Creat Clear Calc 49.55 L, Est GFR (MDRD) Non-Af 48 L, BUN/Creatinine Ratio 19.7, Glucose 100 H, Calcium 7.6, Magnesium 1.8 Cardiology Labs/Tests 06/02/25 05:40: WBC 8.4, RBC 3.32 L, Hgb 7.4 L, Hct 26.0 L, MCV 78.3 L, MCH 22.3L, MCHC 28.5 L, Plt Count 331, MPV 9.7, Immature Gran % (Auto) 0.600, Neut % (Auto) 77.5 H, Lymph % (Auto) 13.3 L, [place] % (Auto) 6.6, Eos % (Auto) 1.5, Baso % (Auto) 0.5, Absolute Neuts (auto) 6.5, Nucleated RBC % 0, Sodium 141, Potassium 3.4, Chloride 109 H, Carbon Dioxide 21.7, Anion Gap 10, BUN 25 H, Creatinine 1.28 H, Est GFR (MDRD) Non-Af 48 L, BUN/Creatinine Ratio 19.7, [id number] H, Calcium 7.6, Magnesium 1.8 Rhythm: EKG: ECHO: Stress Test: Cardiac Cath: PCI: CT Surgery: Holter monitor: EPS: PPM: CXR: Chest CT Scan: Radiography Diagnostic Testing: Radiology Impression Chest X-Ray 06/02/25 04:00 IMPRESSION: Right internal jugular central catheter is in good position with its tip at the atriocaval junction. Minimal decrease in multifocal pulmonary congestion/infiltrates. Unchanged minimal left pleural effusion. Enlarged cardiac silhouette. Reading Location: [address] Risk Score for UA/STEMI Assesmment (YES = 1) Risk Stratification Applicable: No 06/02/25 1212 <Electronically signed by Puja Almeida MD> Cosigner Signature (if applicable): CC: Dr. Sabrina Duran, ~ Signed [facility] Work Phone: [phone] 448-456909-06-2025 Consult note Author Eloisa More [facility] Note Date/Time June 02, 2025 9:25am [facility] Medical Records Department [address] [place] [address] Consultation - CLOTHING MAN 06/01/251922 MR#: [id number] Acct: [id number] Name: NANCY DELACRUZ Rep #:[id number] : 1965 59 From: Eloisa woods MD PCP: Dr. Sabrina Duran DO Status:[facility]M [facility] Assessment & Plan (1) Endometrial thickening on ultrasound: (2) Postmenopausal bleeding: COMMENT: EMB done, needs polyp removed as OP also. await pathology to determine intervention. cea and ca125 ordered. (3) Symptomatic anemia: PLAN: Plan counseled patient and her brother regarding thickened endometrium- could be precancerous/cancerous recommend EMB, and await pathology. this could be a source of her anemia if she has been bleeding. unclear due to poor historian. HPI Consult Data Date of Consult: 06/02/25 HPI Narrative HPI Narrative: NANCY DELACRUZ, is a 59 F who presents initially with severe anemia and stroke, sepsis. Patient has been admitted to the hospital since 05/21 and has been evaluated as to the source of the anemia, initially had a scope which showed nonbleeding ulcers in the stomach and duodenum. Blood counts have been stable posttransfusion. Patient was noted to have vaginal bleeding overnight and therefore an ultrasound was done and lining of the uterus is found to be 21 mm. Patient states that she has had some vaginal bleeding intermittently but itis difficult to get a complete history. Her brother is in the room and he states he was unaware of her having any of these complaints until last night. She does not have a history of any pregnancies, she was never . [facility] Medical History Hypertension CVA (cerebral vascular accident) Home Medications ?Medication ?Instructions ?Recorded ?Last Taken ?Type amlodipine 10 mg tablet 10 mg PO DAILY 05/21/2504/28 History carvedilol 3.125 mg tablet 3.125 mg PO BID 05/21/25 History hydralazine 100 mg tablet 100 mg PO TID 05/21/2505/20 History simvastatin 20 mg tablet 20 mg PO DAILY 05/21/2504/28 History Allergy/AdvReac Type Severity Reaction Status Date / Time No Known Allergies Allergy Verified 05/21/25 09:27 Family History unable to obtain Surgical History unable to obtain Social History Smoking Status: Never smoker Vital Signs Vital Signs Vital Signs: 05/31/25 22:11 05/31/25 22:42 06/01/25 04:00 Temperature 99.1 F 98.4 F Temperature Source Oral Temporal Pulse Rate 99 92 Pulse Strength Respiratory Rate 17 16 Respiratory Effort Normal Non-Labored Respiratory Depth Normal Respiratory Pattern Normal Blood Pressure 116/82 H 114/83 H Blood Pressure Mean 93 93 Blood Pressure Source Monitor Monitor Blood Pressure Position Semi-Fowlers Blood Pressure Location Left Arm Pulse Ox 93 98 Oxygen Delivery Method Nasal Cannula Nasal Cannula Nasal Cannula Oxygen Flow Rate (L/min) 2 2 2 06/01/25 06:50 06/01/25 07:40 06/01/25 09:30 Temperature Temperature Source Pulse Rate Pulse Strength Normal (2+) Respiratory Rate Respiratory Effort Non-Labored Respiratory Depth Normal Respiratory Pattern Normal Blood Pressure Blood Pressure Mean Blood Pressure Source Blood Pressure Position Blood Pressure Location Pulse Ox 94 Oxygen Delivery Method Nasal Cannula Nasal Cannula Oxygen Flow Rate (L/min) 2 2 06/01/25 09:33 06/01/25 13:31 06/01/25 13:31 Temperature 97.1 F L Temperature Source Temporal Pulse Rate 77 Pulse Strength Respiratory Rate 18 Respiratory Effort Respiratory Depth Respiratory Pattern Blood Pressure 110/77 Blood Pressure Mean 88 Blood Pressure Source Monitor Blood Pressure Position Semi-Fowlers Blood Pressure Location Left Arm Pulse Ox 94 Oxygen Delivery Method Nasal Cannula Oxygen Flow Rate (L/min) 2 2 3 06/01/25 14:00 Temperature Temperature Source Pulse Rate Pulse Strength Respiratory Rate Respiratory Effort Non-Labored Respiratory Depth Normal Respiratory Pattern Normal Blood Pressure Blood Pressure Mean Blood Pressure Source Blood Pressure Position Blood Pressure Location Pulse Ox Oxygen Delivery Method Nasal Cannula Oxygen Flow Rate (L/min) 2 Weight Weight: 193 lb 5.526 oz Body Mass Index (BMI) 32.2 ROS Review of Systems ROS Unobtainable: other Details: Limited due to patient's disrupted speech pattern poststroke. Constitutional Constitutional: Reports weakness Cardiovascular Cardiovascular: Reports systems reviewed and no addt'l complaints, except as documented Respiratory/Chest Respiratory/Chest: Reports systems reviewed and no addt'l complaints, except as documented Gastrointestinal Gastrointestinal: Reports diarrhea Genitourinary Genitourinary: Reports systems reviewed and no addt'l complaints, except as documented Musculoskeletal Musculoskeletal: Reports muscle weakness and other Details: Poststroke deficits Neurologic Neurologic: Reports other Details: Poststroke deficits Psychiatric Psychiatric: Reports systems reviewed and no addt'l complaints, except as documented Physical Exam Const alert and no apparent distress General Appearance: cooperative HEENT normocephalic, head/scalp atraumatic and moist oral mucous membranes Neck no lymphadenopathy and supple Lymph Lymphatic: no lymphedema noted Cardio regular rate, regular rhythm, S1 normal heart sound, S2 normal heart sound and no murmurs GI normal to inspection, nondistended, normoactive bowel sounds, soft to palpation and non-tender Extremity normal to inspection and full ROM Extremity Narrative: Bilateral lower extremity edema 2+ edema. General Extremity: no tenderness to palpation of joints or extremities Neuro Neuro Narrative: Right sided weakness, which is chronic Sensorium / Orientation: awake and alert Motor Exam: general weakness Psych thought process normal and cooperative Appearance: appropriate Lab / Micro Data 06/02/25 05:40 06/02/25 05:40 Labs: Laboratory Results - last 24 hr 06/01/25 05:10: WBC 7.5, RBC 3.39 L, Hgb 7.8 L, Hct 26.8 L, MCV 79.1 L, MCH 23.0L, MCHC 29.1 L, RDW Std Deviation TNP, RDW Coeff of Federico TNP, Plt Count 287, MPV 10.2, Immature Gran % (Auto) 0.400, Neut % (Auto) 73.6 H, Lymph % (Auto) 15.4 L,[place] % (Auto) 8.0, Eos % (Auto) 2.3, Baso % (Auto) 0.3, Absolute Neuts (auto) 5.6, Absolute Lymphs (auto) 1.16, Nucleated RBC % 0, Anisocytosis 1+, Sodium 141, Potassium 3.7, Chloride 112 H, Carbon Dioxide 20.2 L, Anion Gap 9, BUN 22 H, Creatinine 1.34 H, Estim Creat Clear Calc 48.22 L, Est GFR (MDRD) Non-Af 45 L,BUN/Creatinine Ratio 16.5, Glucose 108 H, Calcium 7.3 L, Magnesium 2.0 Imaging Radiology Impression Transvaginal US 06/01/25 08:26 IMPRESSION: Endometrial thickening. Clinical correlation recommended. Reading Location: [facility] 06/02/25924 <Electronically signed by Eloisa More MD> Cosigner Signature (if applicable): CC: Dr. Sabrina Duran, DO~ Signed [facility] Work Phone: [phone]) [phone] Radiology Diagnostic study [facility]09-05-2025 Progress note Author [facility] Note Date/Time June 01, 2025 4:00pm [facility] Medical Records Department [address] [facility] [place] [address] Progress Note 06/01/25 1301 MR#: [id number] Acct: [id number] Name: NANCY DELACRUZ Rep #:[id number] : 1965 59 From: Yanet Zhou MD PCP: Dr. Sabrina Duran, DO Status:ADM IN Location: [place] [address] Subjective Subjective Patient seen and examined with her nurse by her bedside. She had no active complaints today. She was noted to have a brief run of nonsustained V. tach overnight. Her nurse also tells me that the patient was noted to have vaginal bleeding overnight. Gynecology has been consulted. Review of systems otherwisenegative. Objective Data Objective Data Vital Signs: Vital Signs Temp Pulse Resp BP Pulse Ox O2 Del Method O2 Flow Rate 97.1 F L 77 18 110/77 94 Nasal Cannula 2 06/01/25 09:33 06/01/25 09:33 06/01/25 09:33 06/01/25 09:33 06/01/25 09:33 06/01/25 09:33 06/01/25 09:33 FiO2 4 05/26/25 08:00 Oxygen Flow Rate (L/min) 2 Oxygen Delivery Method Nasal Cannula Weight: 193 lb 5.526 oz Body Mass Index (BMI) 32.2 Intake & Output: Intake and Output for Last 24 Hours 05/30/25 05/31/25 06/01/25 23:59 23:59 23:59 Intake Total 2555.00 / 2555.00 1050 / 1050 340 / 340 Output Total 975 / 975 850 / 1200 1150 / 1150 Balance 1580.00 / 1580.00 200 / -150 -810 / -810 Lab / Micro Data 06/01/25 05:10 06/01/25 05:10 Labs: Laboratory Results - last 24 hr 06/01/25 05:10: WBC 7.5, RBC 3.39 L, Hgb 7.8 L, Hct 26.8 L, MCV 79.1 L, MCH 23.0L, MCHC 29.1 L, RDW Std Deviation TNP, RDW Coeff of Federico TNP, Plt Count 287, MPV 10.2, Immature Gran % (Auto) 0.400, Neut % (Auto) 73.6 H, Lymph % (Auto) 15.4 L,[place] % (Auto) 8.0, Eos % (Auto) 2.3, Baso % (Auto) 0.3, Absolute Neuts (auto) 5.6, Absolute Lymphs (auto) 1.16, Nucleated RBC % 0, Anisocytosis 1+, Sodium 141, Potassium 3.7, Chloride 112 H, Carbon Dioxide 20.2 L, Anion Gap 9, BUN 22 H, Creatinine 1.34 H, Estim Creat Clear Calc 48.22 L, Est GFR (MDRD) Non-Af 45 L,BUN/Creatinine Ratio 16.5, Glucose 108 H, Calcium 7.3 L, Magnesium 2.0 Micro: Microbiology 05/29/25 10:00 Stool Enteric Bacteriology - Final 05/29/25 10:00 Stool Clostridioides difficile (PCR) - Final 05/21/25 15:15 Blood Culture (Wb) - Central Line Blood Culture - Final No growth in 5 days. 05/21/25 14:15 Sputum, Induced/Lukens Gram Stain - Final 05/21/25 14:15 Sputum, Induced/Lukens Respiratory Culture - Final 05/21/25 17:40 Urine Catheter - Fiore Urine Culture - Final Escherichia coli Radiography Diagnostic Testing: Radiology Impression Transvaginal US 06/01/25 08:26 IMPRESSION: Endometrial thickening. Clinical correlation recommended. Reading Location: [place] [address] Physical Exam Const alert, oriented x3 and no apparent distress Constitutional Narrative: frail, weak General Appearance: cooperative HEENT normocephalic, head/scalp atraumatic, moist oral mucous membranes and oropharynxnormal Eyes PERRL and EOMs intact bilaterally Neck no lymphadenopathy and supple Lymph Lymphatic: no lymphedema noted Resp Resp Narrative: mildly diminished breath sounds bibasally, no wheezes or crackles. Down to 2L ofoxygen by nasal canula. Cardio regular rate, regular rhythm, S1 normal heart sound, S2 normal heart sound and no murmurs Cardio Narrative: Irregularly irregular GI normal to inspection, nondistended, normoactive bowel sounds, soft to palpation and non-tender Extremity normal to inspection, full ROM and normal capillary refill Extremity Narrative: Bilateral lower extremity edema 2+ edema. General Extremity: no tenderness to palpation of joints or extremities Neuro no focal motor deficits and no sensory deficits noted Neuro Narrative: Right sided weakness, which is chronic Sensorium / Orientation: awake, alert, oriented to person, oriented to place andoriented to time Motor Exam: general weakness Psych thought process normal and cooperative Appearance: appropriate Assessment & Plan Assessment/Plan (1) Hypernatremia: (2) Dysphagia: (3) (HFpEF) heart failure with preserved ejection fraction: (4) Acute blood loss anemia: (5) Atrial fibrillation with RVR: PLAN: Plan #Acute hypoxic respiratory failure * thought to be due to CHF and pneumonia * on zosyn. Was intubated and subsequently on 05/25/2025. * now down to 2L of oxygen. * Titrate oxygen to maintain sats above 90%. Breathing treatments modalities. #Acute on chronic HFpEF * EF is normal at 60%, and mild concentric LVH and apical hypertrophic cardiomyopathy present. * received IV lasix 40mg x 1. * pro BNP: 01167 * down to 2L of oxygen today. Titrate oxygen to maintain sats >90% * breathing treatment with bronchodilators. * She is in cumulative positive balance by 6.885 L. * On p.o. Lasix * #Atrial fibrillation with RVR * new diagnosis. not anticoagulated. * Not on rate limiting medications due to hypotension. * HR now improved. On carvedilol, now resumed. * #Diarrhea * patient developed diarrhea overnight and had several episodes of diarrhea. * resolving. Enteric pathogen and C Diff screen negative. * diarrhea has largely resolved * #Hypokalemia: Resolving. K is 3.7. #Acute blood loss anemia * Initial Hb on admission was 3.6. * transfused with 4 units of PRBCs. * Hb today is 7.8. * received IV iron. On IV PPI * EGD showed non bleeding cratered duodenal ulcers and multiple linear gastric ulcers (nonbleeding) * iron studies showed iron deficiency. * transfuse to keep HB >7 * to have repeat EGD in 8-12 weeks to evaluate for healing of gastric ulcers and obtain biopsies. * Noted to have vaginal bleeding today. Transvaginal ultrasound done showed endometrial thickening with clinical correlation recommended. Thickness noted to be abnormal for patient's postmenopausal state. * Consult gynecology. * #Nonsustained V. tach: * Patient noted to have a brief run of nonsustained V. tach overnight. Has not occurred again today. * Potassium is 3.7 and magnesium is 2. On carvedilol 3.125 mg twice daily. Will continue with monitoring. * Will adjust dose as needed and consult cardiology if this nonsustained V. tach occurs more frequently. * #Dysphagia * speech therapy on board. * now on modified diet by speech therapy * Barium swallow showed moderate-severe oropharyngeal dysphagia * #RAMEZ on CKD: Resolved. Cr is 1.11 today. #Hypernatremia: resolved. Na is 141. #History of stroke: not on anticoagulation or antiplatelets. s/p right sided hemiparesis. #Hypertension: on amlodipine, carvedilol and hydralazine which are on hold due to hypotension. DVT prophylaxis: SCDs. Not anticoagulated o/a of acute on chronic anemia Charges/Coding Visit Charges Inpatient E&M: 66210 Subs Hosp L2 06/01/25 1600 <Electronically signed by Yanet Zhou MD> Yanet Zhou MD Cosigner Signature (if applicable): CC: ~ Signed [facility] Work Phone: [phone]) 439-624009-05-2025 Radiology Diagnostic study [facility]-05-2025 Progress note Author [facility] Note Date/Time June 01, 2025 6:40am [facility] Medical Records Department [address] [place] [address] Progress Note - Hospitalist 06/01/25639 MR#: [id number] Acct: [id number] Name: NANCY DELACRUZ Rep #:[id number] : 1965 59 From: Irena Jameson MD PCP: Dr. Sabrina Duran, DO Status:ADM IN Location: [place] [address] Hospitalist Note staff forester noted possible vaginal bleeding, concern may have contributed to Hgb. 06/01/25 0640 <Electronically signed by Irena Jameson MD> Cosigner Signature (if applicable): CC: ~ Signed [facility] Work Phone: [phone]) 345-406209-05-2025 Progress note Author [facility] Note Date/Time May 31, 2025 11:41pm [facility] Medical Records Department [address] [facility] [place] [address] Progress Note - Hospitalist 05/31/25 2339 MR#: [id number] Acct: [id number] Name: NANCY DELACRUZ Rep #:[id number] : 1965 59 From: Irena Jameson MD PCP: Dr. Sabrina Duran, DO Status:ADM IN Location: [place] [address] Hospitalist Note Patient with 21 beat asymptomatic VT, recent mag normal, recent K normal. Givingher BB night dose now. 05/31/25 2341 <Electronically signed by Irena James[place] MD> Cosigner Signature (if applicable): CC: ~ Signed [facility] Work Phone: [phone]) 735-271909-04-2025 Progress note Author Yanet [facility] Note Date/Time May 31, 2025 5:29pm [facility] Medical Records Department [address] [facility] [place] [address] Progress Note 05/31/25 1154 MR#: [id number] Acct: [id number] Name: NANCY DELACRUZ Rep #:[id number] : 1965 59 From: Yanet Zhou MD PCP: Dr. Sabrina Duran, DO Status:ADM IN Location: [place] [address] Subjective Subjective Patient seen and examined with her nurse by her bedside. She had no active complaints and was on 2L of oxygen. Review of systems is otherwise negative. Objective Data Objective Data Vital Signs: Vital Signs Temp Pulse Resp BP Pulse Ox O2 Del Method O2 Flow Rate 97.9 F 76 15 132/84 H 95 Nasal Cannula 2 05/31/25 08:27 05/31/25 08:27 05/31/25 08:27 05/31/25 08:27 05/31/25 08:27 05/31/25 08:33 05/31/25 08:33 FiO2 4 05/26/25 08:00 Oxygen Flow Rate (L/min) 2 Oxygen Delivery Method Nasal Cannula Weight: 194 lb 3.636 oz Body Mass Index (BMI) 32.3 Intake & Output: Intake and Output for Last 24 Hours 05/29/25 05/30/25 05/31/25 23:59 23:59 23:59 Intake Total 3017.50 / 3017.50 2555.00 / 2555.00 100 / 100 Output Total 950 / 950 975 / 975 200 / 200 Balance 2067.50 / 2067.50 1580.00 / 1580.00 -100 / -100 Lab / Micro Data 05/31/25 02:14 05/31/25 02:14 Labs: Laboratory Results - last 24 hr 05/31/25 02:14: WBC 6.8, RBC 3.20 L, Hgb 7.3 L, Hct 25.2 L, MCV 78.8 L, MCH 22.8L, MCHC 29.0 L, RDW Std Deviation TNP, RDW Coeff of Federico TNP, Plt Count 246, MPV 10.0, Immature Gran % (Auto) 0.100, Neut % (Auto) 71.7 H, Lymph % (Auto) 18.5 L,[place] % (Auto) 6.6, Eos % (Auto) 2.8, Baso % (Auto) 0.3, Absolute Neuts (auto) 4.9, Absolute Lymphs (auto) 1.25, Nucleated RBC % 0, Anisocytosis 1+, Sodium 140, Potassium 3.7, Chloride 110 H, Carbon Dioxide 21.4, Anion Gap 9, BUN 21 H, Creatinine 1.11, Estim Creat Clear Calc 55.86, Est GFR (MDRD) Non-Af 57 L, BUN/Creatinine Ratio 18.6, Glucose 92, Calcium 7.3 L Micro: Microbiology 05/29/25 10:00 Stool Enteric Bacteriology - Final 05/29/25 10:00 Stool Clostridioides difficile (PCR) - Final 05/21/25 15:15 Blood Culture (Wb) - Central Line Blood Culture - Final No growth in 5 days. 05/21/25 14:15 Sputum, Induced/Lukens Gram Stain - Final 05/21/25 14:15 Sputum, Induced/Lukens Respiratory Culture - Final 05/21/25 17:40 Urine Catheter - Fiore Urine Culture - Final Escherichia coli Physical Exam Const alert and no apparent distress Constitutional Narrative: frail, weak General Appearance: cooperative HEENT normocephalic, head/scalp atraumatic, moist oral mucous membranes and oropharynxnormal Eyes PERRL and EOMs intact bilaterally Neck no lymphadenopathy and supple Lymph Lymphatic: no lymphedema noted Resp Resp Narrative: mildly diminished breath sounds bibasally, no wheezes or crackles. Down to 2L ofoxygen by nasal canula. Cardio regular rate, regular rhythm, S1 normal heart sound, S2 normal heart sound and no murmurs GI normal to inspection, nondistended, normoactive bowel sounds, soft to palpation,non-tender and non-distended Extremity normal to inspection, full ROM, normal capillary refill and no clubbing, cyanosis or edema General Extremity: edema bilateral lower extremity Details: mild and no tenderness to palpation of joints or extremities Neuro no focal motor deficits and no sensory deficits noted Neuro Narrative: Right sided weakness, which is chronic Sensorium / Orientation: awake and alert Motor Exam: general weakness Psych thought process normal and cooperative Appearance: appropriate Assessment & Plan Assessment/Plan (1) Hypernatremia: (2) Dysphagia: (3) (HFpEF) heart failure with preserved ejection fraction: (4) Acute blood loss anemia: (5) Atrial fibrillation with RVR: PLAN: Plan #Acute hypoxic respiratory failure * thought to be due to CHF and pneumonia * on zosyn. Was intubated and subsequently on 05/25/2025. * now down to 2L of oxygen. #Acute on chronic HFpEF * EF is normal at 60%, and mild concentric LVH and apical hypertrophic cardiomyopathy present. * received IV lasix 40mg x 1. * pro BNP: 22422 * down to 2L of oxygen today. Titrate oxygen to maintain sats >90% * breathing treatment with bronchodilators. * She is in cumulative positive balance by 6.885 L. I will start on PO lasix * #Atrial fibrillation with RVR * new diagnosis. not anticoagulated. * Not on rate limiting medications due to hypotension. * HR now improved. On carvedilol, now resumed. * #Diarrhea * patient developed diarrhea overnight and had several episodes of diarrhea. * resolving. Enteric pathogen and C Diff screen negative. * diarrhea is improving * #Hypokalemia: Resolving. K is 3.7. Potassium today is 3. Will replace aggressively and trend. #Acute blood loss anemia * Initial Hb on admission was 3.6. * transfused with 4 units of PRBCs. * Hb today is down to 7.3. * received IV iron. On IV PPI * EGD showed non bleeding cratered duodenal ulcers and multiple linear gastric ulcers (nonbleeding) * iron studies showed iron deficiency. * transfuse to keep HB >7 * to have repeat EGD in 8-12 weeks to evaluate for healing of gastric ulcers and obtain biopsies. * #Dysphagia * speech therapy on board. * now on modified diet by speech therapy * Barium swallow showed moderate-severe oropharyngeal dysphagia * #RAMEZ on CKD: Resolved. Cr is 1.11 today. #Hypernatremia: resolved. Na is 141. #History of stroke: not on anticoagulation or antiplatelets. s/p right sided hemiparesis. #Hypertension: on amlodipine, carvedilol and hydralazine which are on hold due to hypotension. DVT prophylaxis: SCDs. Not anticoagulated o/a of acute on chronic anemia Charges/Coding Visit Charges Inpatient E&M: 61559 Subs Hosp L2 05/31/25 1729 <Electronically signed by Yanet Zhou MD> Yanet Zhou MD Cosigner Signature (if applicable): CC: ~ Signed [facility] Work Phone: 1(120) 858-632109-03-2025 Progress note Author [facility] Note Date/Time May 30, 2025 6:31pm [facility] Medical Records Department [address] [place] [address] Progress Note 05/30/25 1405 MR#: [id number] Acct: [id number] Name: NANCY DELACRUZ Rep #:[id number] : 1965 59 From: Yanet Zhou MD PCP: Dr. Sabrina Duran, DO Status:ADM IN Location: [place] [address] Subjective Subjective Patient seen and examined. She had no active complaints. She had an uneventful night. She has been placed on a modified diet by speech therapy. Review of systems is otherwise negative. Objective Data Objective Data Vital Signs: Vital Signs Temp Pulse Resp BP Pulse Ox O2 Del Method O2 Flow Rate 97.9 F 83 17 132/94 H 94 Room Air 2 05/30/25 09:46 05/30/25 09:46 05/30/25 09:46 05/30/25 09:46 05/30/25 09:46 05/30/25 09:46 05/30/25 11:02 FiO2 4 05/26/25 08:00 Oxygen Flow Rate (L/min) 2 Oxygen Delivery Method Room Air Weight: 177 lb 14.609 oz Body Mass Index (BMI) 29.6 Intake & Output: Intake and Output for Last 24 Hours 05/28/25 05/29/25 05/30/25 23:59 23:59 23:59 Intake Total 1350.0 / 1350.0 3017.50 / 3017.50 860 / 860 Output Total 850 / 850 950 / 950 550 / 550 Balance 500.0 / 500.0 2067.50 / 2067.50 310 / 310 Lab / Micro Data 05/30/25 05:13 05/30/25 05:13 Labs: Laboratory Results - last 24 hr 05/29/25 15:10: Sodium 144, Potassium 3.8, Chloride 110 H, Carbon Dioxide 22.3, Anion Gap 11, BUN 21 H, Creatinine 1.10, Estim Creat Clear Calc 56.74, Est GFR (MDRD) Non-Af 57 L, BUN/Creatinine Ratio 19.0, Glucose 90, Calcium 8.0, Magnesium 2.1 05/30/25 05:13: WBC 6.2, RBC 3.61 L, Hgb 8.1 L, Hct 28.9 L, MCV 80.1 L, MCH 22.4L, MCHC 28.0 L, RDW Std Deviation Not Reportable, RDW Coeff of Federico Not Reportable, Plt Count 267, MPV 10.6, Immature Gran % (Auto) 0.500, Neut % (Auto)67.7, Lymph % (Auto) 22.0, [place] % (Auto) 6.5, Eos % (Auto) 2.8, Baso % (Auto) 0.5, Absolute Neuts (auto) 4.2, Absolute Lymphs (auto) 1.36, Nucleated RBC % 0, Differential Comment COMMENT, Sodium 141, Potassium 3.0 L, Chloride 108, Carbon Dioxide 23.3, Anion Gap 10, BUN 21 H, Creatinine 1.12, Estim Creat Clear Calc 55.36, Est GFR (MDRD) Non-Af 56 L, BUN/Creatinine Ratio 19.0, Glucose 75, Calcium 7.5 L 05/30/25 10:45: Magnesium 2.0 Micro: Microbiology 05/29/25 10:00 Stool Enteric Bacteriology - Final 05/29/25 10:00 Stool Clostridioides difficile (PCR) - Final 05/21/25 15:15 Blood Culture (Wb) - Central Line Blood Culture - Final No growth in 5 days. 05/21/25 14:15 Sputum, Induced/Lukens Gram Stain - Final 05/21/25 14:15 Sputum, Induced/Lukens Respiratory Culture - Final 05/21/25 17:40 Urine Catheter - Fiore Urine Culture - Final Escherichia coli Physical Exam Const alert, oriented x3 and no apparent distress Constitutional Narrative: frail, weak General Appearance: cooperative HEENT normocephalic, head/scalp atraumatic, moist oral mucous membranes and oropharynxnormal Eyes PERRL and EOMs intact bilaterally Neck no lymphadenopathy and supple Lymph Lymphatic: no lymphedema noted Resp normal respiratory effort, normal air movement, no retractions, no use of accessory muscles and clear to auscultation bilaterally Resp Narrative: mildly diminished breath sounds bibasally, no wheezes or crackles. On 3L of oxygen by nasal canula. Cardio regular rate, regular rhythm, S1 normal heart sound, S2 normal heart sound and no murmurs Cardio Narrative: Irregularly irregular GI normal to inspection, nondistended, normoactive bowel sounds, soft to palpation,non-tender, non-distended and hepatosplenomegaly Extremity normal to inspection, full ROM and normal capillary refill Extremity Narrative: Bilateral lower extremity edema 2+ edema. General Extremity: edema bilateral lower extremity Details: mild and no tenderness to palpation of joints or extremities Neuro no focal motor deficits and no sensory deficits noted Neuro Narrative: Right sided weakness, which is chronic Sensorium / Orientation: awake and alert Motor Exam: general weakness Psych thought process normal and cooperative Appearance: appropriate Assessment & Plan Assessment/Plan (1) Hypernatremia: (2) Dysphagia: (3) (HFpEF) heart failure with preserved ejection fraction: (4) Acute blood loss anemia: (5) Atrial fibrillation with RVR: PLAN: Plan #Acute hypoxic respiratory failure * thought to be due to CHF and pneumonia * on zosyn. Was intubated and subsequently on 05/25/2025. #Acute on chronic HFpEF * EF is normal at 60%, and mild concentric LVH and apical hypertrophic cardiomyopathy present. * received IV lasix 40mg x 1. * pro BNP: 25110 * requiring 3L of oxygen today. Titrate oxygen to maintain sats >90% * breathing treatment with bronchodilators. * continue diuresing with IV lasix. * #Atrial fibrillation with RVR * new diagnosis. not anticoagulated. * Not on rate limiting medications due to hypotension. * HR now improved. On carvedilol, now resumed. * #Diarrhea * patient developed diarrhea overnight and had several episodes of diarrhea. * resolving. Enteric pathogen and C Diff screen negative. * hydrate with IVF 0.45 NS ~ 100cc/hr. * diarrhea is resolving. * #Hypokalemia: potassium today is 3. Will replace aggressively and trend. #Acute blood loss anemia * Initial Hb on admission was 3.6. * transfused with 4 units of PRBCs. * Hb today is 8.1. * received IV iron. On IV PPI * EGD showed non bleeding duodenal ulcers * iron studies showed iron deficiency. * transfuse to keep HB >7 * #Dysphagia * speech therapy on board. * now on modified diet by speech therapy * Barium swallow showed moderate-severe oropharyngeal dysphagia * #RAMEZ on CKD: Resovled. Cr is now down to 1.12. #Hypernatremia: resolved. Na is 141. #History of stroke: not on anticoagulation or antiplatelets. s/p right sided hemiparesis. #Hypertension: on amlodipine, carvedilol and hydralazine which are on hold due to hypotension. DVT prophylaxis: SCDs. Not anticoagulated o/a of acute on chronic anemia Charges/Coding Visit Charges Inpatient E&M: 38481 Subs Hosp L2 05/30/25 1831 <Electronically signed by Yanet Zhou MD> Yanet Zhou MD Cosigner Signature (if applicable): CC: ~ Signed [facility] Work Phone: 1(790) 114-584809-03-2025 Progress note Author Nayely Sarkar [facility] Note Date/Time May 30, 2025 5:02pm [facility] Medical Records Department [address] [place] [address] Progress Note - GI 05/30/25 1437 MR#: [id number] Acct: [id number] Name: NANCY DELACRUZ Rep #:[id number] : 1965 59 From: Nayely stewart CEREAL CHEMIST-C PCP: Dr. Sabrina Duran, DO Status:ADM IN Location: [facility] [id number] Subjective Subjective - denies pain - reports she is eating slowing, denies cough, choking - denies dysphagia - denies any pain Objective Data Objective Data EGD 05/23/2025 No gross lesions were noted in the lower third of the esophagus. Many non-bleeding linear gastric ulcers with no stigmata of bleeding were found in the gastric body. The largest lesion was 6 mm in largest dimension. Many non-bleeding cratered duodenal ulcers with no stigmata of bleeding were found in the entire duodenum. - no specimens collected MBS 05/29/2025 Recommendations Diet: Minced and Moist Textures and Mildly Thick Liquids Compensatory Strategies: Small Bites, Liquid by Teaspoon Only, Slow Rate, Chin Tuck (WITH ALL SIPS), Alternate bites/solids and sips/liquids, Sitting upright and Remain sitting upright for 30 minutes after PO intake Supervision: 1:1 Direct Supervision (ASSIST FEEDING NEEDED TO ENSURE USE OF TSP SIPS) Recommend Repeat Modified Barium Swallow: Yes (1-3 weeks after implementation oforopharyngeal exercise program) Need for Skilled Speech Therapy Services: Yes Vital Signs: Vital Signs Temp Pulse Resp BP Pulse Ox O2 Del Method O2 Flow Rate 97.9 F 83 17 132/94 H 94 Room Air 2 05/30/25 09:46 05/30/25 09:46 05/30/25 09:46 05/30/25 09:46 05/30/25 09:46 05/30/25 09:46 05/30/25 11:02 FiO2 4 05/26/25 08:00 Oxygen Flow Rate (L/min) 2 Oxygen Delivery Method Room Air Weight: 177 lb 14.609 oz Body Mass Index (BMI) 29.6 Intake & Output: Intake and Output for Last 24 Hours 05/28/25 05/29/25 05/30/25 23:59 23:59 23:59 Intake Total 1350.0 / 1350.0 3017.50 / 3017.50 960 / 960 Output Total 850 / 850 950 / 950 550 / 550 Balance 500.0 / 500.0 2067.50 / 2067.50 410 / 410 Lab / Micro Data Attestation: I reviewed the patient's lab results. 05/30/25 05:13 05/30/25 05:13 Labs: Laboratory Results - last 24 hr 05/29/25 15:10: Sodium 144, Potassium 3.8, Chloride 110 H, Carbon Dioxide 22.3, Anion Gap 11, BUN 21 H, Creatinine 1.10, Estim Creat Clear Calc 56.74, Est GFR (MDRD) Non-Af 57 L, BUN/Creatinine Ratio 19.0, Glucose 90, Calcium 8.0, Magnesium 2.1 05/30/25 05:13: WBC 6.2, RBC 3.61 L, Hgb 8.1 L, Hct 28.9 L, MCV 80.1 L, MCH 22.4L, MCHC 28.0 L, RDW Std Deviation Not Reportable, RDW Coeff of Federico Not Reportable, Plt Count 267, MPV 10.6, Immature Gran % (Auto) 0.500, Neut % (Auto)67.7, Lymph % (Auto) 22.0, [place] % (Auto) 6.5, Eos % (Auto) 2.8, Baso % (Auto) 0.5, Absolute Neuts (auto) 4.2, Absolute Lymphs (auto) 1.36, Nucleated RBC % 0, Differential Comment COMMENT, Sodium 141, Potassium 3.0 L, Chloride 108, Carbon Dioxide 23.3, Anion Gap 10, BUN 21 H, Creatinine 1.12, Estim Creat Clear Calc 55.36, Est GFR (MDRD) Non-Af 56 L, BUN/Creatinine Ratio 19.0, Glucose 75, Calcium 7.5 L 05/30/25 10:45: Magnesium 2.0 Micro: Microbiology 05/29/25 10:00 Stool Enteric Bacteriology - Final 05/29/25 10:00 Stool Clostridioides difficile (PCR) - Final 05/21/25 15:15 Blood Culture (Wb) - Central Line Blood Culture - Final No growth in 5 days. 05/21/25 14:15 Sputum, Induced/Lukens Gram Stain - Final 05/21/25 14:15 Sputum, Induced/Lukens Respiratory Culture - Final 05/21/25 17:40 Urine Catheter - Fiore Urine Culture - Final Escherichia coli Assessment & Plan Assessment/Plan (1) Acute blood loss anemia: PLAN: Plan 59y/o female admitted with severe anemia (Hgb 3.6) requiring 4u PRBC. Currently HGB 9.3 on IV Fe and PPI. EGD revealed numerous cratered duodenal ulcers and multiple linear gastric ulcers (largest 6mm), none actively bleeding, no stigmata of recent bleed, no biopsies taken. Plan for continued IV PPI with transition to PO when stable, continued Fe supplementation, strict avoidance of NSAIDS/ASA. Recommend repeat EGD OP in 8-12 weeks to assess healing of gastric ulcers and obtain biopsies. She recently reported new onset diarrhea; C. Diff and enteric pathogen panel negative. I have reviewed with Dr. Mcrae and recommend transitioning to PO PPI BID. Avoid use of NSAIDS. 05/30/25 1702 <Electronically signed by Nayely FARLEY> Cosigner Signature (if applicable): CC: ~ Signed [facility] Work Phone: 1(639) [phone] Procedure [facility] 05-30-2025 Progress note Author Irena [facility] Note Date/Time May 29, 2025 10:11pm [facility] Medical Records Department [address] [place] [address] Progress Note - Hospitalist 05/29/252209 MR#: [id number] Acct: [id number] Name: NANCY DELACRUZ Rep #:[id number] : 1965 59 From: Irena Jameson MD PCP: Dr. Sabrina Duran, DO Status:ADM IN Location: [place] [address] Hospitalist Note Patient with 12 beat VT, asymptomatic, mag, K normal, diet re-ordered and oral coreg restarted. 05/29/252210 <Electronically signed by Irena [place] MD> Cosigner Signature (if applicable): CC: ~ Signed [facility] Work Phone: [phone] Progress note Author Yanet Zhou [facility] Note Date/Time May 29, 2025 3:33pm [facility] Medical Records Department [address] [place] [address] Progress Note 05/29/25 1412 MR#: [id number] Acct: [id number] Name: NANCY DELACRUZ Rep #:[id number] : 1965 59 From: Yanet Zhou MD PCP: Dr. Sabrina Duran, DO Status:ADM IN Location: [place] [id number] Subjective Subjective Patient seen and examined with her nurse by her bedside. She developed diarrhea overnight and had several episodes of diarrhea. She denied any abdominal pain, palpitations, dizziness, nausea or any other symptoms. Review of systems is otherwise negative. Potassium today is down to 2.8. Objective Data Objective Data Vital Signs: Vital Signs Temp Pulse Resp BP Pulse Ox O2 Del Method O2 Flow Rate 97.3 F L 95 17 111/83 H 97 Nasal Cannula 3 05/29/25 10:40 05/29/25 12:27 05/29/25 10:40 05/29/25 12:27 05/29/25 10:40 05/29/25 10:40 05/29/25 10:40 FiO2 4 05/26/25 08:00 Oxygen Flow Rate (L/min) 3 Oxygen Delivery Method Nasal Cannula Weight: 180 lb 5.41 oz Body Mass Index (BMI) 30.0 Intake & Output: Intake and Output for Last 24 Hours 05/27/25 05/28/25 05/29/25 23:59 23:59 23:59 Intake Total 1615 / 1615 1350.0 / 1350.0 1672.50 / 1672.50 Output Total 1300 / 1625 850 / 850 550 / 550 Balance 315 / -10 500.0 / 500.0 1122.50 / 1122.50 Lab / Micro Data 05/29/25 05:01 05/29/25 05:01 Labs: Laboratory Results - last 24 hr 05/29/25 05:01: WBC 6.6, RBC 3.71 L, Hgb 8.3 L, Hct 29.5 L, MCV 79.5 L, MCH 22.4L, MCHC 28.1 L, RDW Std Deviation Not Reportable, RDW Coeff of Federico Not Reportable, Plt Count 245, MPV 10.8, Immature Gran % (Auto) 0.300, Neut % (Auto)69.1, Lymph % (Auto) 18.0 L, [place] % (Auto) 7.3, Eos % (Auto) 4.5, Baso % (Auto) 0.8, Absolute Neuts (auto) 4.6, Absolute Lymphs (auto) 1.19, Nucleated RBC % 0, Differential Comment SCANNED, Platelet Estimate ADEQUATE, Plt Morphology CommentLARGE, Polychromasia 1+, Anisocytosis 3+, Microcytosis 1+, Target Cells 1+, TearDrop Cells RARE, Acanthocytes (Spur) RARE, Sodium 147 H, Potassium 2.8 L, Chloride 112 H, Carbon Dioxide 25.7, Anion Gap 10, BUN 23 H, Creatinine 1.24 H, Estim Creat Clear Calc 50.33, Est GFR (MDRD) Non-Af 50 L, BUN/Creatinine Ratio 18.5, Glucose 94, Calcium 8.0, Magnesium 2.0 Micro: Microbiology 05/21/25 15:15 Blood Culture (Wb) - Central Line Blood Culture - Final No growth in 5 days. 05/21/25 14:15 Sputum, Induced/Lukens Gram Stain - Final 05/21/25 14:15 Sputum, Induced/Lukens Respiratory Culture - Final 05/21/25 17:40 Urine Catheter - Fiore Urine Culture - Final Escherichia coli Physical Exam Const alert, oriented x3 and no apparent distress General Appearance: cooperative HEENT normocephalic, head/scalp atraumatic, moist oral mucous membranes and oropharynxnormal Eyes PERRL and EOMs intact bilaterally Neck no lymphadenopathy and supple Lymph Lymphatic: no lymphedema noted Resp Resp Narrative: mildly diminished breath sounds bibasally, no wheezes or crackles. On 3L of oxygen by nasal canula. Cardio regular rate, regular rhythm, S1 normal heart sound, S2 normal heart sound and no murmurs GI normal to inspection, nondistended, normoactive bowel sounds, soft to palpation,non-tender and non-distended Extremity normal to inspection, full ROM and normal capillary refill Extremity Narrative: Bilateral lower extremity edema 2+ edema. General Extremity: edema bilateral lower extremity Details: mild and no tenderness to palpation of joints or extremities Neuro no focal motor deficits and no sensory deficits noted Neuro Narrative: Right sided weakness, which is chronic Sensorium / Orientation: awake and alert Motor Exam: general weakness Psych thought process normal and cooperative Appearance: appropriate Assessment & Plan Assessment/Plan (1) Hypernatremia: (2) Dysphagia: (3) (HFpEF) heart failure with preserved ejection fraction: (4) Acute blood loss anemia: (5) Atrial fibrillation with RVR: PLAN: Plan #Acute hypoxic respiratory failure * thought to be due to CHF and pneumonia * on zosyn. Was intubated and subsequently on 05/25/2025. #Acute on chronic HFpEF * EF is normal at 60%, and mild concentric LVH and apical hypertrophic cardiomyopathy present. * received IV lasix 40mg x 1. * pro BNP: 38353 * requiring 3L of oxygen today. Titrate oxygen to maintain sats >90% * breathing treatment with bronchodilators. * #Atrial fibrillation with RVR * new diagnosis. not anticoagulated. * Not on rate limiting medications due to hypotension. * pateint tachyardic today, with HR up to the 150s today. HR subsequently came down before she could be given amiodarone bolus * will place on IV lopressor prn. She cannot be given oral meds now as she is awaiting modified barium swallow. #Diarrhea * patient developed diarrhea overnight and had several episodes of diarrhea. * potassium toady is 2.8. * enteric panel and CDiff screen is pending. * hydrate with IVF 0.45 NS ~ 100cc/hr. * #Hypokalemia: K is 2.8 today. Will replace aggressively. Check Mg. Monitor K closely and trend. May be aggravated by diarrhea. #Acute blood loss anemia * Initial Hb on admission was 3.6. * transfused with 4 units of PRBCs. * Hb today is 8/3. * received IV iron. On IV PPI * EGD showed non bleeding duodenal ulcers * iron studies showed iron deficiency. * transfuse to keep HB >7 * #Dysphagia * speech therapy on board. Currently NPO. * to have modified barium swallow * diet to be determined as per speech therapy recommendations. #RAMEZ on CKD: CR is down to 1.3 which is her baseline. #Hypernatremia: Na is down to 147 today after being hydrated with IV D5W. #History of stroke: not on anticoagulation or antiplatelets. s/p right sided hemiparesis. #Hypertension: on amlodipine, carvedilol and hydralazine which are on hold due to hypotension. DVT prophylaxis: SCDs. Not anticoagulated o/a of acute on chronic anemia Charges/Coding Visit Charges Inpatient E&M: 99038 Subs Hosp L3 05/29/25 3472 <Electronically signed by Yanet Zhou MD> Yanet Zhou MD Cosigner Signature (if applicable): CC: ~ Signed [facility] Work Phone: 1(463) 471-177809-02-2025 Progress note Author [facility] Note Date/Time May 29, 2025 6:42am [facility] Medical Records Department [address] [place] [address] Progress Note - Hospitalist 05/29/25641 MR#: [id number] Acct: [id number] Name: NANCY DELACRUZ Rep #:[id number] : 1965 59 From: Irena [place] MD PCP: Dr. Sabrina Duran, DO Status:ADM IN Location: [place] [address] Hospitalist Note Mag 2.8, will supplement and request repeat mag. 05/29/25641 <Electronically signed by Irena [place] MD> Cosigner Signature (if applicable): CC: ~ Signed [facility] Work Phone: 1(348) [phone] Progress note Author [facility] Note Date/Time May 29, 2025 1:37am [facility] Medical Records Department [address] [place] [address] Progress Note - Hospitalist 05/29/25135 MR#: [id number] Acct: [id number] Name: NANCY DELACRUZ Rep #:[id number] : 1965 59 From: Irena James[place] MD PCP: Dr. Sabrina Duran, DO Status:ADM IN Location: [place] [address] Hospitalist Note Patient with intermittent short bursts VT, asymptomatic. BP stable from review of trend. Will add back low dose coreg with hold parameters with dose now. Recent mag appropriate. K from am appropriate. 05/29/25136 <Electronically signed by Irena James[place] MD> Cosigner Signature (if applicable): CC: ~ Signed [facility] Work Phone: [phone]) [phone] Progress note Author [facility] Note Date/Time May 28, 2025 4:48pm [facility] Medical Records Department [address] [facility] [place] [address] Progress Note 05/28/25 1409 MR#: [id number] Acct: [id number] Name: NANCY DELACRUZ Rep #:[id number] : 1965 59 From: Yanet Zhou MD PCP: Dr. Sabrina Duran, DO Status:ADM IN Location: [place] [address] Subjective Subjective Patient seen and examined. Her brother was by her bedside. She had no active complaints and had and uneventful night. She denied any lightheadedness, numbness, chest pain, palpitations, dizziness, nausea, vomiting or any other symptoms. Objective Data Objective Data Vital Signs: Vital Signs Temp Pulse Resp BP Pulse Ox O2 Del Method O2 Flow Rate 97.6 F L 75 18 121/89 H 94 Nasal Cannula 3 05/28/25 05:46 05/28/25 05:46 05/28/25 05:46 05/28/25 05:46 05/28/25 07:56 05/28/25 08:00 05/28/25 11:44 FiO2 4 05/26/25 08:00 Oxygen Flow Rate (L/min) 3 Oxygen Delivery Method Nasal Cannula Weight: 177 lb 14.609 oz Body Mass Index (BMI) 29.6 Intake & Output: Intake and Output for Last 24 Hours 05/26/25 05/27/25 05/28/25 23:59 23:59 23:59 Intake Total 1831.25 / 1831.25 1615 / 1615 694.5 / 694.5 Output Total 2650 / 3100 1300 / 1625 500 / 500 Balance -818.75 / -1268.75 315 / -10 194.5 / 194.5 Lab / Micro Data 05/28/25 03:45 05/28/25 06:23 Labs: Laboratory Results - last 24 hr 05/28/25 03:45: WBC 7.2, RBC 3.17 L, Hgb 7.2 L, Hct 26.0 L, MCV 82.0, MCH 22.7 L, MCHC 27.7 L, RDW Std Deviation Not Reportable, RDW Coeff of Federico Not Reportable, Plt Count 195, MPV 10.8, Immature Gran % (Auto) 0.600, Neut % (Auto)73.7 H, Lymph % (Auto) 14.8 L, [place] % (Auto) 6.2, Eos % (Auto) 3.9, Baso % (Auto) 0.8, Absolute Neuts (auto) 5.3, Absolute Lymphs (auto) 1.07, Nucleated RBC % 0, Differential Comment SCANNED, Platelet Estimate ADEQUATE, Plt Morphology Comment CLUMPED, Polychromasia 1+, Hypochromasia 1+, Anisocytosis 3+,Microcytosis 1+, Macrocytosis 1+, Ovalocytes 1+, Crenated Cell 1+, Acanthocytes (Spur) 1+, Sodium Cancelled, Potassium Cancelled, Chloride Cancelled, Carbon Dioxide Cancelled, Anion Gap Cancelled, BUN Cancelled, Creatinine Cancelled, Estim Creat Clear Calc Cancelled, Est GFR (MDRD) Non-Af Cancelled, BUN/Creatinine Ratio Cancelled, Glucose Cancelled, Calcium Cancelled, NT pro BNPII 45422 H 05/28/25 06:23: Sodium 152 H, Potassium 3.5, Chloride 119 H, Carbon Dioxide 23.4, Anion Gap 10, BUN 27 H, Creatinine 1.30 H, Estim Creat Clear Calc 47.69 L,Est GFR (MDRD) Non-Af 47 L, BUN/Creatinine Ratio 20.9 H, Glucose 96, Calcium 8.0, Magnesium 2.3 H Micro: Microbiology 05/21/25 15:15 Blood Culture (Wb) - Central Line Blood Culture - Final No growth in 5 days. 05/21/25 14:15 Sputum, Induced/Lukens Gram Stain - Final 05/21/25 14:15 Sputum, Induced/Lukens Respiratory Culture - Final 05/21/25 17:40 Urine Catheter - Fiore Urine Culture - Final Escherichia coli Radiography Diagnostic Testing: Radiology Impression Chest X-Ray 05/28/25 03:30 IMPRESSION: Unchanged minimal left pleural effusion. Unchanged passive atelectatic airspace disease of the left lower lobe. Right internal jugular central catheter is unchanged. Enteric feeding tube has been removed in the interim. Endotracheal tube has been removed in the interim. Minimal decrease in pulmonary congestion/infiltrates. Enlarged cardiac silhouette. Reading Location: [place] [address] Physical Exam Const alert, oriented x3 and no apparent distress General Appearance: cooperative HEENT normocephalic, head/scalp atraumatic, moist oral mucous membranes and oropharynxnormal Eyes PERRL and EOMs intact bilaterally Neck supple Lymph Lymphatic: no lymphedema noted Resp normal respiratory effort and normal air movement Cardio regular rate, regular rhythm, S1 normal heart sound, S2 normal heart sound and no murmurs GI normal to inspection, nondistended, normoactive bowel sounds, soft to palpation,non-tender and non-distended Extremity normal capillary refill and no clubbing, cyanosis or edema General Extremity: no tenderness to palpation of joints or extremities Neuro no focal motor deficits and no sensory deficits noted Neuro Narrative: Right sided weakness, which is chronic Motor Exam: general weakness Psych thought process normal and cooperative Appearance: appropriate Assessment & Plan Assessment/Plan (1) Hypernatremia: (2) Dysphagia: (3) (HFpEF) heart failure with preserved ejection fraction: (4) Acute blood loss anemia: (5) Atrial fibrillation with RVR: PLAN: Plan #Acute hypoxic respiratory failure * thought to be due to CHF and pneumonia * on zosyn. Was intubated and subsequently on 05/25/2025. #Acute on chronic HFpEF * EF is normal at 60%, and mild concentric LVH and apical hypertrophic cardiomyopathy present. * received IV lasix 40mg x 1. * pro BNP: 74891 * #Atrial fibrillation with RVR * new diagnosis. not anticoagulated. Not on rate limiting medications due to hypotension. #Acute blood loss anemia * Initial Hb on admission was 3.6. * transfused with 4 units of PRBCs. * Hb today is 7.2. * received IV iron. On IV PPI * EGD showed non bleeding duodenal ulcers * iron studies showed iron deficiency. * transfuse to keep HB >7 * #Dysphagia * speech therapy on board. Currently NPO. * to have modified barium swallow * #RAMEZ on CKD: CR is down to 1.3 which is her baseline. #Hypernatremia: Na is 152 today. Will hydrate with D5W and trend sodium levels. #History of stroke: not on anticoagulation or antiplatelets. s/p right sided hemiparesis. #Hypertension: on amlodipine, carvedilol and hydralazine which are on hold due to hypotension. DVT prophylaxis: SCDs. Not anticoagulated o/a of acute on chronic anemia Charges/Coding Visit Charges Inpatient E&M: 91214 Subs Hosp L2 05/28/25 2304 <Electronically signed by Yanet Zhou MD> Yanet Zhou MD Cosigner Signature (if applicable): CC: ~ Signed [facility] Work Phone: 1(501) 612-641409-01-2025 Progress note Author Julian Monsivais [facility] Note Date/Time May 28, 2025 7:11am [facility] Medical Records Department [address] [place] [address] Progress Note - [place] Department Operator 05/28/25 0703 MR#: [id number] Acct: [id number] Name: NANCY DELACRUZ Rep #:[id number] : 1965 59 From: Julian Monsivais DO PCP: Dr. Sabrina Duran DO Status:ADM IN Location: [place] [address] Assessment & Plan Assessment/Plan (1) Acute hypoxemic respiratory failure: (2) Elevated troponin: (3) Acute on chronic kidney failure: (4) New onset a-fib: (5) Shock: PLAN: Plan RECOMMENDATIONS: 1. Supplemental oxygen to maintain saturations at or above 90%. 2. Trial of empiric BiPAP therapy with naps and nightly to assist with alveolarrecruitment. 3. Will give 1 dose of IV Lasix today. 4. Aggressive incentive spirometry use. 5. Antimicrobial therapy to complete 7 days of therapy. 6. Continue to monitor H&H. Transfuse if hemoglobin drops below 7 g/dL. 7. Dietary advancement per speech therapy. IMPRESSIONS: 1. Undifferentiated shock Resolved. Most likely secondary to hemorrhagic etiology in the setting of acuteblood loss anemia +/- sepsis related to pneumonia. The patient is currently hemodynamically stable. Recommend continuing antimicrobial therapy to complete 7 days of therapy. The patient is status post endoscopic evaluation by GI with gastric ulcers and nonbleeding duodenal ulcers noted. The patient will be continued on PPI therapy. 2. Acute hypoxemic respiratory failure Clinical concern for underlying pneumonia along with atelectasis. While there was initial concern for decompensated heart failure, the patient's echocardiogram revealed a normal ejection fraction. She was ultimately intubated on May 21, due to her inability to compensate from a respiratory perspective for her underlying metabolic acidosis. With supportive care and antimicrobials, the patient improved from a respiratory perspective and was ableto be extubated. At this time, recommend aggressive bronchopulmonary hygiene. Given her elevated BNP, we will administer IV Lasix x 1 today. Continue to weansupplemental oxygen to maintain saturations at or above 90%. The patient would likely benefit from a trial of BiPAP therapy with naps and nightly to assist with alveolar recruitment. 3. Acute on chronic kidney disease Most likely secondary to #1. Continue current supportive care. Avoid nephrotoxic medications. 4. Acute blood loss anemia Gastroenterology is following. Continue transfusion of blood products to achieve and maintain a hemoglobin at or above 7 g/dL. Continue PPI therapy as ordered. 5. Troponin elevation/atrial fibrillation Secondary to demand ischemia in the setting of #1. Echocardiogram revealed intact, normal systolic function. Continue current supportive care. 6. History of CVA with residual deficits/hypertension/hyperlipidemia Complicates care, management, recovery and prognosis. Continue supportive measures as noted above. Physical therapy to work with the patient. Dietary advancement per speech therapy. This note was generated with [employer] dictation software. It may contain incorrectwords, spelling, and punctuation that were not noted in checking the note beforesigning. Subjective Subjective The patient was seen and examined at the bedside this morning. Events from the last 24 hours have been reviewed. The patient is currently afebrile, hemodynamically stable and maintaining appropriate oxygen saturations on 8 L/minvia nasal cannula. Nursing staff reported that the patient was stable on 2 to 3L/min yesterday, but then had an increase in oxygen requirement overnight with sleep. She is currently documented to be overall net +3 L for the hospitalization. Repeat chest x-ray obtained overnight showed no significant interval changes. Hemoglobin is down to 7.2 g/dL. Platelet count is within normal limits. Creatinine is stable at 1.3. BNP was elevated at 12,629. Objective Data Objective Data The patient's most recent lab work, culture data and imaging studies have all been personally reviewed. Surface echocardiogram demonstrated mild concentric LVH with an ejection fraction of 60%. Vital Signs: Vital Signs Temp Pulse Resp BP Pulse Ox O2 Del Method O2 Flow Rate 97.6 F L 75 18 121/89 H 92 High Flow 8 05/28/25 05:46 05/28/25 05:46 05/28/25 05:46 05/28/25 05:46 05/28/25 05:46 05/28/25 05:46 05/28/25 05:46 FiO2 4 05/26/25 08:00 Oxygen Flow Rate (L/min) 8 Oxygen Delivery Method High Flow Weight: 177 lb 14.609 oz Body Mass Index (BMI) 29.6 Intake & Output: Intake and Output for Last 24 Hours 05/26/25 05/27/25 05/28/25 23:59 23:59 23:59 Intake Total 1831.25 / 1831.25 1615 / 1615 450 / 450 Output Total 2650 / 3100 1300 / 1625 500 / 500 Balance -818.75 / -1268.75 315 / -10 -50 / -50 Lab / Micro Data Attestation: I reviewed the patient's lab results. 05/28/25 03:45 05/28/25 06:23 Labs: Laboratory Results - last 24 hr 05/28/25 03:45: WBC 7.2, RBC 3.17 L, Hgb 7.2 L, Hct 26.0 L, MCV 82.0, MCH 22.7 L, MCHC 27.7 L, RDW Std Deviation Not Reportable, RDW Coeff of Federico Not Reportable, Plt Count 195, MPV 10.8, Immature Gran % (Auto) 0.600, Neut % (Auto)73.7 H, Lymph % (Auto) 14.8 L, [place] % (Auto) 6.2, Eos % (Auto) 3.9, Baso % (Auto) 0.8, Absolute Neuts (auto) 5.3, Absolute Lymphs (auto) 1.07, Nucleated RBC % 0, Differential Comment SCANNED, Platelet Estimate ADEQUATE, Plt Morphology Comment CLUMPED, Polychromasia 1+, Hypochromasia 1+, Anisocytosis 3+,Microcytosis 1+, Macrocytosis 1+, Ovalocytes 1+, Crenated Cell 1+, Acanthocytes (Spur) 1+, Sodium Cancelled, Potassium Cancelled, Chloride Cancelled, Carbon Dioxide Cancelled, Anion Gap Cancelled, BUN Cancelled, Creatinine Cancelled, Estim Creat Clear Calc Cancelled, Est GFR (MDRD) Non-Af Cancelled, BUN/Creatinine Ratio Cancelled, Glucose Cancelled, Calcium Cancelled, NT pro BNPII 11795 H 05/28/25 06:23: Sodium 152 H, Potassium 3.5, Chloride 119 H, Carbon Dioxide 23.4, Anion Gap 10, BUN 27 H, Creatinine 1.30 H, Estim Creat Clear Calc 47.69 L,Est GFR (MDRD) Non-Af 47 L, BUN/Creatinine Ratio 20.9 H, Glucose 96, Calcium 8.0 Micro: Microbiology 05/21/25 15:15 Blood Culture (Wb) - Central Line Blood Culture - Final No growth in 5 days. 05/21/25 14:15 Sputum, Induced/Lukens Gram Stain - Final 05/21/25 14:15 Sputum, Induced/Lukens Respiratory Culture - Final 05/21/25 17:40 Urine Catheter - Fiore Urine Culture - Final Escherichia coli ABG Data ABG results: ABG 05/21/25 05/21/25 09:30 15:31 Specimen Type ART LJ Sample Site L Radial L Radial pH 7.46 H Bicarbonate Actual 16.4 L Total CO2 17 Base Excess -7 L O2 Saturation 97 O2 % 100.0 60.0 ABG pCO2 22.8 L ABG pO2 79 Kishan Test Positive VBG pH 7.41 VBG pO2 23 L VBG HCO3 20 L VBG Total CO2 21 L VBG O2 Sat (Calc) 42 L VBG Base Excess -4 L POC Mix VBG pCO2 Pt Tmp 32.4 L Respiration Rate 16 O2 Delivery Device NRB Adult Vent Vent Mode Not entered Tidal Volume 450.0 POC PEEP 5 Radiography Diagnostic Testing: Radiology Impression Chest X-Ray 05/28/25 03:30 IMPRESSION: Unchanged minimal left pleural effusion. Unchanged passive atelectatic airspace disease of the left lower lobe. Right internal jugular central catheter is unchanged. Enteric feeding tube has been removed in the interim. Endotracheal tube has been removed in the interim. Minimal decrease in pulmonary congestion/infiltrates. Enlarged cardiac silhouette. Reading Location: [place] [address] Physical Exam Const alert and no apparent distress General Appearance: cooperative HEENT normocephalic and head/scalp atraumatic Eyes PERRL, EOMs intact bilaterally and conjunctivae normal Neck supple General: trachea midline and CVC in place Chest inspection of chest normal Resp Auscultation: diminished lung sounds; Negative for rales, rhonchi or wheezes Cardio S1 normal heart sound and S2 normal heart sound Rhythm: abnormal rhythm GI normal to inspection, nondistended, normoactive bowel sounds Extremity General Extremity: edema; Negative for clubbing Skin no rashes or lesions noted Neuro CN's II-XII intact bilaterally Neuro Narrative: Contracted right-sided extremities. Psych Mood & Affect: flat affect Charges/Coding Visit Charges Inpatient E&M: 30439 Subs Hosp L2 05/28/25 0711 <Electronically signed by Julian Monsivais DO> Cosigner Signature (if applicable): CC: ~ Signed [facility] Work Phone: 1(681) 809-519409-01-2025 Radiology Diagnostic study [facility]08-31-2025 Progress note Author Matt Acevedo [facility] Note Date/Time May 27, 2025 1: 38pm [facility] Medical Records Department [address] [place] [address] Progress Note - Hospitalist 05/27/25819 MR#: [id number] Acct: [id number] Name: ANNCY DELACRUZ Rep #:[id number] : 1965 59 From: Matt Acevedo DO PCP: Dr. Sabrina Duran DO Status:ADM IN Location: [place] [address] Reason for Visit Chief Complaint: altered level of consciousness. Subjective Subjective Upset that her mother cannot see her (too weak to make it to the hospital). Brother feels her voice now is back to her baseline. Objective Data Objective Data Vital Signs: Vital Signs Temp Pulse Resp BP Pulse Ox O2 Del Method O2 Flow Rate 36.7 C 97 17 118/80 95 Nasal Cannula 4 05/27/25 02:00 05/27/25 02:00 05/27/25 02:00 05/27/25 02:00 05/27/25 07:58 05/27/25 07:58 05/27/25 07:58 FiO2 4 05/26/25 08:00 Oxygen Flow Rate (L/min) 4 Oxygen Delivery Method Nasal Cannula Weight: 80.2 kg Body Mass Index (BMI) 29.5 Intake & Output: Intake and Output for Last 24 Hours 05/25/25 05/26/25 05/27/25 23:59 23:59 23:59 Intake Total 1880.23 / 1880.23 1831. / 183. 315 / 315 Output Total 1500 / 1500 2650 / 3100 700 / 700 Balance 380.23 / 380.23 -818.75 / -1268.75 -385 / -385 Lab / Micro Data 05/27/25 04:15 05/27/25 04:15 Labs: Laboratory Results - last 24 hr 05/27/25 04:15: WBC 7.8, RBC 3.31 L, Hgb 7.5 L, Hct 26.6 L, MCV 80.4 L, MCH 22.7L, MCHC 28.2 L, RDW Std Deviation TNP, RDW Coeff of Federico TNP, Plt Count 204, MPV 10.1, Immature Gran % (Auto) 0.600, Neut % (Auto) 78.0 H, Lymph % (Auto) 11.6 L,[place] % (Auto) 6.6, Eos % (Auto) 2.6, Baso % (Auto) 0.6, Absolute Neuts (auto) 6.1, Absolute Lymphs (auto) 0.90, Nucleated RBC % 0.3, Anisocytosis 2+, Sodium 155 H, Potassium 3.3, Chloride 120 H, Carbon Dioxide 21.8, Anion Gap 13, BUN 34 H, Creatinine 1.50 H, Estim Creat Clear Calc 42.11 L, Est GFR (MDRD) Non-Af 39 L, BUN/Creatinine Ratio 22.3 H, Glucose 73, Calcium 7.9 Micro: Microbiology 05/21/25 15:15 Blood Culture (Wb) - Central Line Blood Culture - Final No growth in 5 days. 05/21/25 14:15 Sputum, Induced/Lukens Gram Stain - Final 05/21/25 14:15 Sputum, Induced/Lukens Respiratory Culture - Final 05/21/25 17:40 Urine Catheter - Fiore Urine Culture - Final Escherichia coli Physical Exam Const alert and no apparent distress Constitutional Narrative: voice stronger than yesterday, but still weak. HEENT head/scalp atraumatic and moist oral mucous membranes Resp normal respiratory effort and no retractions Resp Narrative: coarse breath sounds bilaterally. Cardio regular rate, regular rhythm, S1 normal heart sound and S2 normal heart sound GI normal to inspection, nondistended, normoactive bowel sounds, soft to palpation,non-tender and non-distended Extremity normal to inspection and full ROM Neuro Sensorium / Orientation: awake, alert, oriented to person, oriented to place andoriented to time Assessment & Plan Assessment/Plan (1) Shock: PLAN: POA and currently resolved. Concern for hemorrhagic plus minus septic shock. Within normal EF cardiogenic ruled out. Right IJ triple-lumen catheter placed. Norepinephrine weaned off on the . On admission she was not a candidate for 30 cc/kg of IVF given CHF. Started on empiric antibiotics w pip/tazo and vancomycin. Will discontinue vancomycin today and continue piperacillin/tazobactam through the first to complete 7-day course of antibiotics. Urine culture showing E. coli, pansensitive. Continue broad-spectrum antibiotics given the ongoing concern that patient may have pneumonia if pneumonia is deemed not the issue then antibiotics can likely be de-escalated tosolely address the urinary tract infection. (2) Acute hypoxemic respiratory failure: PLAN: CHF +/- pneumonia Intubated due to concern for on pending airway collapse given her numerous severe medical issues that are coalescing at present. On pip-tazo through May 28. Extubated 05/25 (3) (HFpEF) heart failure with preserved ejection fraction: PLAN: Acute and ongoing EF noted as normal. Cannot rule out high-output failure due to severe anemia. The patient with ongoing respiratory issues, will continue with daily IV furosemide particularly since she will be receiving IV fluids to help with the hypernatremia. (4) Atrial fibrillation with RVR: PLAN: Improved new diagnosis but unclear how new this processes. Unable to anticoagulate due to anemia. May be exacerbated due to the severity of her underlying illnesses. No chronotropic meds at this time given the shock and ongoing need for pressors. (5) Acute blood loss anemia: PLAN: Unclear how long the patient has been anemic. Though looking back at her labs, patient hemoglobin of 13 on January 18 and then had hemoglobin of 7.6 on January 22 of this year. Her admission hemoglobin was 3.6. Transfused 4 units packed red blood cells, went up to 8, since drifted down to 7.2. Hold transfusion for now. Monitor. on IV PPI B12, folate, TSH WNL. Low iron and ferritin Received IV iron 05/22 EGD 05/22 showed non-bleeding ulcers in the duodenum. Hemoglobin drifting down but we will hold off on transfusion unless hemoglobin drops less than 7. (6) Elevated troponin: PLAN: Mild elevation due to atrial fibrillation, respiratory failure, anemia. Demand ischemia from above. No gross wall abnormality on echo No additional cardiac work up at this time. (7) Dysphagia: PLAN: Postextubation. Patient has a weak voice that is ongoing. Discussed withthe patient's brother that will have a modified barium swallow study to evaluate. She feels that that she may need to potentially be considered for enteral feeding. Continue NPO, speach therapy. (8) Hypernatremia: PLAN: Unable to give free water as patient is currently NPO. Will start infusion of D5 water and monitor. PLAN: Plan History of stroke: Patient not on any antiplatelet or any anticoagulation medications. Does have right-sided hemiparesis Hypertension: Holding off on amlodipine, carvedilol and hydralazine given shock. VTE prophylaxis with SCDs CODE STATUS: Addressed with the patient and her family. Patient is full code. Discussed with the patient's brother at bedside. Charges/Coding Visit Charges Inpatient E&M: 93745 Subs Hosp L2 05/27/25 1338 <Electronically signed by Matt Acevedo DO> Cosigner Signature (if applicable): CC: ~ Signed [facility] Work Phone: [phone]) 943-597608-30-2025 Progress note Author Matt Acevedo [facility] Note Date/Time May 26, 2025 12 :09pm [facility] Medical Records Department [address] [place] [address] Progress Note - Hospitalist 05/26/25 0817 MR#: [id number] Acct: [id number] Name: NANCY DELACRUZ Rep #:[id number] : 1965 59 From: Matt Acevedo DO PCP: Dr. Sabrina Duran, Status:ADM IN Location: ICU ICU03-1 Reason for Visit Chief Complaint: altered level of consciousness. Subjective Subjective Weak cough. Requiring suctioning. Has been off norepinephrine since the . Objective Data Objective Data Vital Signs: Vital Signs Temp Pulse Resp BP Pulse Ox O2 Del Method O2 Flow Rate 36.9 C 83 17 109/70 95 Nasal Cannula 4 05/26/25 08:00 05/26/25 08:00 05/26/25 08:00 05/26/25 08:00 05/26/25 08:00 05/26/25 08:00 05/26/25 07:46 FiO2 4 05/26/25 08:00 Oxygen Flow Rate (L/min) 4 Oxygen Delivery Method Nasal Cannula Weight: 83.8 kg Body Mass Index (BMI) 30.7 Intake & Output: Intake and Output for Last 24 Hours 05/24/25 05/25/25 05/26/25 23:59 23:59 23:59 Intake Total 2046.13 / 2148.63 1880.23 / 1880.23 1531.25 / 1531.25 Output Total 3200 / 3200 1500 / 1500 250 / 250 Balance -1153.87 / -1051.37 380.23 / 380.23 1281.25 / 1281.25 Lab / Micro Data 05/26/25 04:38 05/26/25 04:38 Labs: Laboratory Results - last 24 hr 05/25/25 21:05: WBC 8.0, RBC 3.10 L, Hgb 7.1 L, Hct 24.9 L, MCV 80.3 L, MCH 22.9L, MCHC 28.5 L, RDW Std Deviation 80.5 H, RDW Coeff of Federico 28.9 H, Plt Count 182, MPV 9.8, Immature Gran % (Auto) 0.700, Neut % (Auto) 80.5 H, Lymph % (Auto)9.8 L, [place] % (Auto) 6.7, Eos % (Auto) 1.9, Baso % (Auto) 0.4, Absolute Neuts (auto) 6.5, Absolute Lymphs (auto) 0.79 L, Nucleated RBC % 0.2, Differential Comment SCANNED, Platelet Estimate ADEQUATE, Polychromasia 1+, Hypochromasia 1+,Anisocytosis 2+, Sodium 151 H, Potassium 3.6, Chloride 119 H, Carbon Dioxide 21.4, Anion Gap 11, BUN 37 H, Creatinine 1.69 H, Estim Creat Clear Calc 37.66 L,Est GFR (MDRD) Non-Af 34 L, BUN/Creatinine Ratio 21.6 H, Glucose 91, Calcium 7.6, Phosphorus 3.1, Magnesium 2.4 H, Total Bilirubin 1.23, AST 14, ALT 15, Alkaline Phosphatase 52, Total Protein 5.6 L, Albumin 2.4 L, Globulin 3.2, Albumin/Globulin Ratio 0.8 L 05/26/25 04:38: WBC 8.0, RBC 3.05 L, Hgb 7.0 L, Hct 24.6 L, MCV 80.7 L, MCH 23.0L, MCHC 28.5 L, RDW Std Deviation 82.6 H, RDW Coeff of Federico 29.1 H, Plt Count 173, MPV 10.0, Immature Gran % (Auto) 0.600, Neut % (Auto) 79.3 H, Lymph % (Auto) 11.0 L, [place] % (Auto) 6.5, Eos % (Auto) 2.1, Baso % (Auto) 0.5, Absolute Neuts (auto) 6.3, Absolute Lymphs (auto) 0.88, Nucleated RBC % 0.3, DifferentialComment SCANNED, Polychromasia 1+, Anisocytosis 2+, Microcytosis 1+, Ovalocytes RARE, Stomatocytes RARE, Sodium 151 H, Potassium 3.6, Chloride 119 H, Carbon Dioxide 21.3, Anion Gap 11, BUN 35 H, Creatinine 1.54 H, Estim Creat Clear Calc 41.33 L, Est GFR (MDRD) Non- Af 38 L, BUN/Creatinine Ratio 22.4 H, Glucose 79, Calcium 7.7, Vancomycin Trough 17.4 H Micro: Microbiology 05/21/25 14:15 Sputum, Induced/Lukens Gram Stain - Final 05/21/25 14:15 Sputum, Induced/Lukens Respiratory Culture - Final 05/21/25 15:15 Blood Culture (Wb) - Central Line Blood Culture - Preliminary No growth in 48 hours. 05/21/25 17:40 Urine Catheter - Fiore Urine Culture - Final Escherichia coli Physical Exam Const alert and no apparent distress Resp normal respiratory effort, no retractions, no use of accessory muscles and clearto auscultation bilaterally Cardio regular rate, regular rhythm, S1 normal heart sound and S2 normal heart sound GI normal to inspection, nondistended, normoactive bowel sounds, soft to palpation,non-tender and non-distended Extremity normal to inspection and full ROM Neuro Sensorium / Orientation: awake and alert Assessment & Plan Assessment/Plan (1) Shock: PLAN: Undifferentiated at this time. Concern for hemorrhagic plus minus septic shock. Within normal EF cardiogenic ruled out. Right IJ triple-lumen catheter placed. Norepinephrine weaned off on the . On admission she was not a candidate for 30 cc/kg of IVF given CHF. Started on empiric antibiotics w pip/tazo and vancomycin Urine culture showing E. coli, pansensitive. Continue broad-spectrum antibiotics given the ongoing concern that patient may have pneumonia if pneumonia is deemed not the issue then antibiotics can likely be de-escalated tosolely address the urinary tract infection. (2) Acute hypoxemic respiratory failure: PLAN: CHF +/- pneumonia Intubated due to concern for on pending airway collapse given her numerous severe medical issues that are coalescing at present. On empiric antibiotics Extubated 05/25 (3) (HFpEF) heart failure with preserved ejection fraction: PLAN: Acute and ongoing EF noted as normal. Cannot rule out high-output failure due to severe anemia. Will give 1x dose of 40mg IV furosemide today. (4) Atrial fibrillation with RVR: PLAN: Improved new diagnosis but unclear how new this processes. Unable to anticoagulate due to anemia. May be exacerbated due to the severity of her underlying illnesses. No chronotropic meds at this time given the shock and ongoing need for pressors. (5) Acute blood loss anemia: PLAN: Unclear how long the patient has been anemic. Though looking back at her labs, patient hemoglobin of 13 on January 18 and then had hemoglobin of 7.6 on January 22 of this year. Her admission hemoglobin was 3.6. Transfused 4 units packed red blood cells, went up to 8, since drifted down to 7.2. Hold transfusion for now. Monitor. on IV PPI B12, folate, TSH WNL. Low iron and ferritin Received IV iron 05/22 EGD 05/22 showed non-bleeding ulcers in the duodenum. Hemoglobin drifting down but we will hold off on transfusion unless hemoglobin drops less than 7. (6) Elevated troponin: PLAN: Mild elevation due to atrial fibrillation, respiratory failure, anemia. Demand ischemia from above. No gross wall abnormality on echo No additional cardiac work up at this time. (7) Dysphagia: PLAN: Postextubation. Patient has a weak voice that is ongoing. Discussed withthe patient's brother that will have a modified barium swallow study to evaluate. She feels that that she may need to potentially be considered for enteral feeding. Continue NPO, speach therapy. PLAN: Plan History of stroke: Patient not on any antiplatelet or any anticoagulation medications. Does have right-sided hemiparesis Hypertension: Holding off on amlodipine, carvedilol and hydralazine given shock. VTE prophylaxis with SCDs CODE STATUS: Addressed with the patient and her family. Patient is full code. Discussed with the patient's brother at bedside. Charges/Coding Visit Charges Inpatient E&M: 13108 Subs Hosp L2 05/26/25 1209 <Electronically signed by Matt Acevedo DO> Cosigner Signature (if applicable): CC: ~ Signed [facility] Work Phone: 1(327) 844-472508-30-2025 Consult note Author Matt Haines [facility] Note Date/Time May 26, 2025 5: 32am [facility] Medical Records Department [address] [facility] [place] [address] Pharmacokinetic/Renal -Consult 05/26/25 0530 MR#: [id number] Acct: [id number] Name: NANCY DELACRUZ Rep #:[id number] : 1965 59 From: Matt Haines PCP: Dr. Sabrina Duran DO Status:ADM IN Y Location: ICU ICU03-1 Consult Antibiotic Management Pharmacy has been consulted to manage selected antibiotic: Vancomycin Type of Intervention Type of Consult: Follow-up Suspected Infection Suspected Infection: Pneumonia Labs Labs: Sodium 151 mmol/L (133-145) H 05/26/25 04:38 Potassium 3.6 mmol/L (3.3-5.1) 05/26/25 04:38 Chloride 119 mmol/L (98-108) H 05/26/25 04:38 Carbon Dioxide 21.3 mmol/L (21.0-32.0) 05/26/25 04:38 Anion Gap 11 (5-15) 05/26/25 04:38 BUN 35 mg/dL (4-19) H 05/26/25 04:38 Creatinine 1.54 mg/dL (0.70-1.20) H 05/26/25 04:38 Est GFR (MDRD) Non-Af 38 (>60) L 05/26/25 04:38 BUN/Creatinine Ratio 22.4 RATIO (10-20) H 05/26/25 04:38 Glucose 79 mg/dL (70-99) 05/26/25 04:38 Vancomycin Trough 17.4 ug/mL (5.0-15.0) H 05/26/25 04:38 Random Vancomycin 16.9 ug/mL (0.0-15.0) H 05/24/25 03:10 Microbiology Microbiology: Microbiology 05/21/25 14:15 Sputum, Induced/Lukens Gram Stain - Final 05/21/25 14:15 Sputum, Induced/Lukens Respiratory Culture - Final 05/21/25 15:15 Blood Culture (Wb) - Central Line Blood Culture - Preliminary No growth in 48 hours. 05/21/25 17:40 Urine Catheter - Fiore Urine Culture - Final Escherichia coli Dosing Weight Weight used for dosin kg Estimated Creatinine Clearance Estimated Creatinine Clearance: 41 Goal Trough Goal Trough: 15-20 mcg/mL Pharmacy Plan for Drug Dosing Pharmacy Plan for Drug Dosing: Vancomycin trough level of 17.4, drawn 24.5hrs post-dose, was within the target range of 15-20. Will continue dosing at 750mg q24h, and will draw another troughlevel in two days. Pharmacy Service will continue to monitor and adjust dosing as required. Follow-Up Labs Follow-Up Labs: Trough: Vancomycin Date/Time Labs Ordered Labs to be done on [date and time ordered]: 05/28/25 @0430 05/26/25 0532 <Electronically signed by Matt wong> Date _ Matt Jang Signature (if applicable): Date CC: ~ Signed [facility] Work Phone: 1(662) 634-253508-29-2025 Progress note Author Matt Acevedo [facility] Note Date/Time May 25, 2025 10 :59am [facility] Medical Records Department [address] [place] [address] Progress Note - Hospitalist 08/29/25 0720 MR#: [id number] Acct: [id number] Name: NANCY DELACRUZ Rep #:[id number] : 1965 59 From: Matt Acevedo DO PCP: Dr. Sabrina Duran, DO Status:ADM IN Location: ICU ICU-1 Reason for Visit Chief Complaint: altered level of consciousness. Subjective Subjective extubated today. Objective Data Objective Data Vital Signs: Vital Signs Temp Pulse Resp BP Pulse Ox O2 Del Method O2 Flow Rate 37.7 C H 65 12 108/62 95 Mechanical Ventilator 60 05/25/25 06:00 05/25/25 07:01 05/25/25 07:01 05/25/25 06:00 05/25/25 07:01 05/25/25 06:00 05/21/25 18:45 FiO2 35 05/25/25 07:01 Oxygen Flow Rate (L/min) 60 Oxygen Delivery Method Mechanical Ventilator Weight: 85.1 kg Body Mass Index (BMI) 31.2 Intake & Output: Intake and Output for Last 24 Hours 05/23/25 05/24/25 05/25/25 23:59 23:59 23:59 Intake Total 1036.49 / 1155.59 2046.13 / 2148.63 1006.25 / 1006.25 Output Total 460 / 910 3200 / 3200 450 / 450 Balance 576.49 / 245.59 -1153.87 / -1051.37 556.25 / 556.25 Lab / Micro Data 05/25/25 03:47 05/25/25 03:47 Labs: Laboratory Results - last 24 hr 05/24/25 03:10: Phosphorus 4.5, Magnesium 2.5 H 05/25/25 03:47: WBC 12.1 H, RBC 3.29 L, Hgb 7.5 L, Hct 26.1 L, MCV 79.3 L, MCH 22.8 L, MCHC 28.7 L, RDW Std Deviation 75.4 H, RDW Coeff of Federico 28.0 H, Plt Count 207, MPV 9.2, Immature Gran % (Auto) 0.800, Neut % (Auto) 82.3 H, Lymph % (Auto) 8.4 L, [place] % (Auto) 6.4, Eos % (Auto) 1.9, Baso % (Auto) 0.2, Absolute Neuts (auto) 10.0 H, Absolute Lymphs (auto) 1.02, Nucleated RBC % 0.4, Differential Comment SCANNED, Polychromasia 1+, Basophilic Stippling RARE, Anisocytosis 1+, Microcytosis RARE, Sodium 149 H, Potassium 3.5, Chloride 116 H,Carbon Dioxide 21.7, Anion Gap 11, BUN 40 H, Creatinine 1.95 H, Estim Creat Clear Calc 32.33 L, Est GFR (MDRD) Non-Af 29 L, BUN/Creatinine Ratio 20.5 H, Glucose 130 H, Calcium 7.6 Micro: Microbiology 05/21/25 14:15 Sputum, Induced/Lukens Gram Stain - Final 05/21/25 14:15 Sputum, Induced/Lukens Respiratory Culture - Final 05/21/25 15:15 Blood Culture (Wb) - Central Line Blood Culture - Preliminary No growth in 48 hours. 05/21/25 17:40 Urine Catheter - Fiore Urine Culture - Final Escherichia coli Physical Exam Const alert Constitutional Narrative: on nasal canula. no respiratory distress. no conversational dyspnea. HEENT head/scalp atraumatic and moist oral mucous membranes Resp normal respiratory effort and no retractions Resp Narrative: coarse breath sounds bilaterally. Cardio regular rate, regular rhythm, S1 normal heart sound and S2 normal heart sound GI normal to inspection, nondistended, normoactive bowel sounds, soft to palpation,non-tender and non-distended Extremity General Extremity: edema bilateral lower extremity Details: mild Neuro Sensorium / Orientation: awake and alert Assessment & Plan Assessment/Plan (1) Shock: PLAN: Undifferentiated at this time. Concern for hemorrhagic plus minus septic shock. Within normal EF cardiogenic ruled out. Right IJ triple-lumen catheter placed. Patient continued on norepinephrine. Nota candidate for 30 cc/kg of IVF given CHF. Started on empiric antibiotics w pip/tazo and vancomycin Urine culture showing E. coli, pansensitive. Continue broad-spectrum antibiotics given the ongoing concern that patient may have pneumonia if pneumonia is deemed not the issue then antibiotics can likely be de-escalated tosolely address the urinary tract infection. (2) Acute hypoxemic respiratory failure: PLAN: CHF +/- pneumonia Intubated due to concern for on pending airway collapse given her numerous severe medical issues that are coalescing at present. On empiric antibiotics Wean vent per pulmonary (3) (HFpEF) heart failure with preserved ejection fraction: PLAN: Acute and ongoing EF noted as normal. Cannot rule out high-output failure due to severe anemia. Started on furosemide 60 mg daily. (4) Atrial fibrillation with RVR: PLAN: Improved new diagnosis but unclear how new this processes. Unable to anticoagulate due to anemia. May be exacerbated due to the severity of her underlying illnesses. No chronotropic meds at this time given the shock and ongoing need for pressors. (5) Acute blood loss anemia: PLAN: Unclear how long the patient has been anemic. Though looking back at her labs, patient hemoglobin of 13 on January 18 and then had hemoglobin of 7.6 on January 22 of this year. Her admission hemoglobin was 3.6. Transfused 4 units packed red blood cells, went up to 8, since drifted down to 7.2. Hold transfusion for now. Monitor. on IV PPI B12, folate, TSH WNL. Low iron and ferritin Received IV iron 05/22 EGD 05/22 showed non-bleeding ulcers in the duodenum. (6) Elevated troponin: PLAN: Mild elevation due to atrial fibrillation, respiratory failure, anemia. Demand ischemia from above. No gross wall abnormality on echo No additional cardiac work up at this time. PLAN: Plan History of stroke: Patient not on any antiplatelet or any anticoagulation medications. Does have right-sided hemiparesis Hypertension: Holding off on amlodipine, carvedilol and hydralazine given shock. VTE prophylaxis with SCDs CODE STATUS: Addressed with the patient and her family. Patient is full code. Charges/Coding Visit Charges Inpatient E&M: 50983 Subs Hosp L2 05/25/25 1059 <Electronically signed by Matt Acevedo DO> Cosigner Signature (if applicable): CC: ~ Signed [facility] Work Phone: 1(283) 546-862008-29-2025 Progress note Author Julian Monsivais [facility] Note Date/Time May 25, 2025 9: 22am [facility] Medical Records Department [address] [place] [address] Progress Note - [place] Department Operator 05/25/25 0732 MR#: [id number] Acct: [id number] Name: NANCY DELACRUZ Rep #:[id number] : 1965 59 From: Julian Monsivais DO PCP: Dr. Sabrina Duran, DO Status:ADM IN Location: ICU ICU03-1 Assessment & Plan Assessment/Plan (1) Acute hypoxemic respiratory failure: (2) Elevated troponin: (3) Acute on chronic kidney failure: (4) New onset a-fib: (5) Shock: PLAN: Plan RECOMMENDATIONS: 1. Proceed with a trial of extubation this morning. Once extubated, wean supplemental oxygen to maintain saturations at or above 90%. 2. Continue antimicrobial therapy. 3. Continue to monitor H&H. Transfuse if hemoglobin drops below 7 g/dL. 4. Continue to wean Levophed to maintain mean arterial pressure at or above 65 mmHg. 5. Continue PPI therapy. 6. Speech therapy evaluation prior to consideration for advancement of diet. 7. PT/OT evaluations. IMPRESSIONS: 1. Undifferentiated shock Improving. Most likely secondary to hemorrhagic etiology in the setting of acute blood loss anemia. However, the patient does have a normal ejection fraction on echocardiogram. Therefore I cannot definitively say that the infiltrates noted on chest x-ray are related to pulmonary edema in the setting of CHF. Therefore, empiric antimicrobials were initiated to cover for septic etiologies, as there is some concern for underlying pneumonia. The patient has been transfused packed red blood cells and remains on low-dose Levophed to maintain hemodynamic stability. The patient is status post endoscopic evaluation by GI with gastric ulcers and nonbleeding duodenal ulcers noted. Thepatient will be continued on PPI therapy. 2. Acute hypoxemic respiratory failure Clinical concern for underlying pneumonia. While there was initial concern for decompensated heart failure, the patient's echocardiogram revealed a normal ejection fraction. She was ultimately intubated on May 21, due to her inability to compensate from a respiratory perspective for her underlying metabolic acidosis. With supportive care and antimicrobials, the patient has improved from a respiratory perspective. She passed her spontaneous breathing trial this morning. Therefore, we will plan to proceed with a trial of extubation. Once extubated, recommend weaning supplemental oxygen to maintain saturations at or above 90%. 3. Acute on chronic kidney disease Most likely secondary to #1. Continue supportive care, including vasopressor support, if indicated. Avoid nephrotoxic medications. 4. Acute blood loss anemia Gastroenterology is following. Continue transfusion of blood products to achieve and maintain a hemoglobin at or above 7 g/dL. Continue PPI therapy as ordered. 5. Troponin elevation/atrial fibrillation Secondary to demand ischemia in the setting of #1. Echocardiogram revealed intact, normal systolic function. Given that the patient's rate is currently controlled, we will plan to continue supportive care. 6. History of CVA with residual deficits/hypertension/hyperlipidemia Complicates care, management, recovery and prognosis. Continue supportive measures as noted above. Continue to hold home antihypertensives. TIME: 34 minutes of critical care time, independent of procedures, was spent addressing the patient's undifferentiated shock, acute hypoxemic respiratory failure, acute on chronic kidney disease, acute blood loss anemia, review of alldata and collaboration with the care team. Subjective Subjective The patient was seen and examined at the bedside this morning. Events from the last 24 hours have been reviewed. At the present time, the patient has a low-grade fever and remains on low-dose Levophed to maintain hemodynamic stability. Her ventilator requirements are minimal with an FiO2 of 35% and PEEP of 5. The patient passed her spontaneous awakening trial this morning and subsequently completed a spontaneous breathing trial, without complication. She is alert andable to follow commands appropriately. She is currently documented to be overall net +3.8 L for the hospitalization. White blood cell count is stable at12,000 with a hemoglobin of 7.5 g/dL. Creatinine is stable at 1.95. Objective Data Objective Data The patient's most recent lab work, culture data and imaging studies have all been personally reviewed. Surface echocardiogram demonstrated mild concentric LVH with an ejection fraction of 60%. Blood, urine and sputum cultures are pending. Vital Signs: Vital Signs Temp Pulse Resp BP Pulse Ox O2 Del Method O2 Flow Rate 99.9 F H 65 12 110/58 L 95 Mechanical Ventilator 60 05/25/25 06:00 05/25/25 07:01 05/25/25 07:01 05/25/25 07:00 05/25/25 07:01 05/25/25 07:00 05/21/25 18:45 FiO2 35 05/25/25 07:01 Oxygen Flow Rate (L/min) 60 Oxygen Delivery Method Mechanical Ventilator Weight: 187 lb 9.814 oz Body Mass Index (BMI) 31.2 Intake & Output: Intake and Output for Last 24 Hours 05/23/25 05/24/25 05/25/25 23:59 23:59 23:59 Intake Total 1036.49 / 1155.59 2046.13 / 2148.63 1325.65 / 1325.65 Output Total 460 / 910 3200 / 3200 450 / 450 Balance 576.49 / 245.59 -1153.87 / -1051.37 875.65 / 875.65 Lab / Micro Data Attestation: I reviewed the patient's lab results. 05/25/25 03:47 05/25/25 03:47 Labs: Laboratory Results - last 24 hr 05/24/25 03:10: Phosphorus 4.5, Magnesium 2.5 H 05/25/25 03:47: WBC 12.1 H, RBC 3.29 L, Hgb 7.5 L, Hct 26.1 L, MCV 79.3 L, MCH 22.8 L, MCHC 28.7 L, RDW Std Deviation 75.4 H, RDW Coeff of Federico 28.0 H, Plt Count 207, MPV 9.2, Immature Gran % (Auto) 0.800, Neut % (Auto) 82.3 H, Lymph % (Auto) 8.4 L, [place] % (Auto) 6.4, Eos % (Auto) 1.9, Baso % (Auto) 0.2, Absolute Neuts (auto) 10.0 H, Absolute Lymphs (auto) 1.02, Nucleated RBC % 0.4, Differential Comment SCANNED, Polychromasia 1+, Basophilic Stippling RARE, Anisocytosis 1+, Microcytosis RARE, Sodium 149 H, Potassium 3.5, Chloride 116 H,Carbon Dioxide 21.7, Anion Gap 11, BUN 40 H, Creatinine 1.95 H, Estim Creat Clear Calc 32.33 L, Est GFR (MDRD) Non-Af 29 L, BUN/Creatinine Ratio 20.5 H, Glucose 130 H, Calcium 7.6 Micro: Microbiology 05/21/25 14:15 Sputum, Induced/Lukens Gram Stain - Final 05/21/25 14:15 Sputum, Induced/Lukens Respiratory Culture - Final 05/21/25 15:15 Blood Culture (Wb) - Central Line Blood Culture - Preliminary No growth in 48 hours. 05/21/25 17:40 Urine Catheter - Fiore Urine Culture - Final Escherichia coli ABG Data ABG results: ABG 05/21/25 05/21/25 09:30 15:31 Specimen Type ART LJ Sample Site L Radial L Radial pH 7.46 H Bicarbonate Actual 16.4 L Total CO2 17 Base Excess -7 L O2 Saturation 97 O2 % 100.0 60.0 ABG pCO2 22.8 L ABG pO2 79 Kishan Test Positive VBG pH 7.41 VBG pO2 23 L VBG HCO3 20 L VBG Total CO2 21 L VBG O2 Sat (Calc) 42 L VBG Base Excess -4 L POC Mix VBG pCO2 Pt Tmp 32.4 L Respiration Rate 16 O2 Delivery Device NRB Adult Vent Vent Mode Not entered Tidal Volume 450.0 POC PEEP 5 Radiography Diagnostic Testing: Radiology Impression Chest X-Ray 05/23/25 05:30 IMPRESSION: Tubes and lines in position. Bilateral infiltrate and consolidation with a moderate left effusion, similar tothe prior. A component of CHF is not excluded. Reading Location: [facility] Physical Exam Const Constitutional Narrative: Remains intubated mechanically ventilated. Currently tolerating spontaneous mode of mechanical ventilation. General Appearance: patient mechanically ventilated HEENT normocephalic and head/scalp atraumatic Mouth: endotracheal tube in place and OG tube in place Eyes PERRL, EOMs intact bilaterally and conjunctivae normal Neck supple General: trachea midline and CVC in place Chest inspection of chest normal Resp Auscultation: rales and diminished lung sounds Cardio S1 normal heart sound and S2 normal heart sound Rhythm: abnormal rhythm GI normal to inspection, nondistended, normoactive bowel sounds Extremity General Extremity: edema; Negative for clubbing Skin no rashes or lesions noted Neuro Neuro Narrative: Contracted right-sided extremities. Alert and able to follow simple commands appropriately. Charges/Coding Procedures Hospitalists Procedures: 74332 Critical Care 1st Hr 05/25/25 0922 <Electronically signed by Julian Monsivais DO> Cosigner Signature (if applicable): CC: ~ Signed [facility] Work Phone: 1(716) 797-483108-28-2025 Progress note Author Matt Acevedo [facility] Note Date/Time May 24, 2025 1: 35pm [facility] Medical Records Department [address] [place] [address] [place] [address] Progress Note - Hospitalist 05/24/25 0735 MR#: [id number] Acct: [id number] Name: NANCY DELACRUZ Rep #:[id number] : 1965 59 From: Matt Acevedo DO PCP: Dr. Sabrina Duran, DO Status:ADM IN Location: ICU ICU-1 Reason for Visit Chief Complaint: altered level of consciousness. Subjective Subjective No new events. Patient on spontaneous breathing trial today. Objective Data Objective Data Vital Signs: Vital Signs Temp Pulse Resp BP Pulse Ox O2 Del Method O2 Flow Rate 37.2 C 73 12 105/57 L 93 Mechanical Ventilator 60 05/24/25 07:00 05/24/25 07:00 05/24/25 07:00 05/24/25 07:00 05/24/25 07:00 05/24/25 07:00 05/21/25 18:45 FiO2 40 05/24/25 07:00 Oxygen Flow Rate (L/min) 60 Oxygen Delivery Method Mechanical Ventilator Weight: 83.5 kg Body Mass Index (BMI) 30.6 Intake & Output: Intake and Output for Last 24 Hours 05/22/25 05/23/25 05/24/25 23:59 23:59 23:59 Intake Total 1809.42 / 1836.02 1036.49 / 1155.59 886.10 / 886.10 Output Total 1250 / 1575 460 / 910 900 / 900 Balance 559.42 / 261.02 576.49 / 245.59 -13.90 / -13.90 Lab / Micro Data 05/24/25 03:10 05/24/25 03:10 Labs: Laboratory Results - last 24 hr 05/23/25 13:14: Magnesium 2.5 H 05/23/25 15:20: Vancomycin Trough 20.8 H 05/23/25 18:14: Sodium 147 H, Potassium 3.6, Chloride 116 H, Carbon Dioxide 18.3L, Anion Gap 13, BUN 39 H, Creatinine 2.01 H, Estim Creat Clear Calc 31.05 L, Est GFR (MDRD) Non-Af 28 L, BUN/Creatinine Ratio 19.5, Glucose 77, Calcium 7.7, Magnesium 2.6 H 05/24/25 03:10: WBC 12.5 H, RBC 3.28 L, Hgb 7.5 L, Hct 25.8 L, MCV 78.7 L, MCH 22.9 L, MCHC 29.1 L, RDW Std Deviation 71.7 H, RDW Coeff of Federico 26.0 H, Plt Count 227, MPV 9.8, Immature Gran % (Auto) 0.600, Neut % (Auto) 82.2 H, Lymph % (Auto) 9.8 L, [place] % (Auto) 5.7, Eos % (Auto) 1.2, Baso % (Auto) 0.5, Absolute Neuts (auto) 10.3 H, Absolute Lymphs (auto) 1.23, Nucleated RBC % 0.6, Differential Comment SCANNED, Polychromasia 1+, Hypochromasia 1+, Anisocytosis 2+, Microcytosis 2+, [place] Francisco Cells 1+, Sodium 148 H, Potassium 3.3, Chloride 117 H,Carbon Dioxide 19.5 L, Anion Gap 12, BUN 40 H, Creatinine 2.01 H, Estim Creat Clear Calc 31.05 L, Est GFR (MDRD) Non-Af 28 L, BUN/Creatinine Ratio 19.7, Glucose 105 H, Calcium 7.7, Random Vancomycin 16.9 H Micro: Microbiology 05/21/25 15:15 Blood Culture (Wb) - Central Line Blood Culture - Preliminary No growth in 48 hours. 05/21/25 17:40 Urine Catheter - Fiore Urine Culture - Final Escherichia coli 05/21/25 14:15 Sputum, Induced/Lukens Gram Stain - Final ABG Data ABG results: ABG 05/24/25 06:05 Specimen Type ART Sample Site L Radial pH 7.38 Bicarbonate Actual 23.6 Total CO2 25 Base Excess -2 O2 Saturation 90 L O2 % 40.0 ABG pCO2 40.1 ABG pO2 60 L Kishan Test Positive Respiration Rate 12 O2 Delivery Device Adult Vent Vent Mode AC Tidal Volume 450.0 POC PEEP 5 Radiography Diagnostic Testing: Radiology Impression Chest X-Ray 05/24/25 06:10 IMPRESSION: Tubes and lines in position. Bilateral infiltrates with a small left effusion, unchanged. Reading Location: [facility] Physical Exam Const Constitutional Narrative: Awake. Follows commands. Intubated. Resp Resp Narrative: Coarse breath sounds bilaterally Cardio regular rate, regular rhythm, S1 normal heart sound and S2 normal heart sound GI normal to inspection, nondistended, normoactive bowel sounds, soft to palpation,non-tender and non-distended Extremity normal to inspection, full ROM and no clubbing, cyanosis or edema Neuro Sensorium / Orientation: awake, alert and oriented to person Assessment & Plan Assessment/Plan (1) Shock: PLAN: Undifferentiated at this time. Concern for hemorrhagic plus minus septic shock. Within normal EF cardiogenic ruled out. Right IJ triple-lumen catheter placed. Patient started on norepinephrine. Not acandidate for 30 cc/kg of IVF given CHF. Follow up cultures. Possible UTI with abnormal UA, but UCx showing only 1-10k organisms at this time. Started on empiric antibiotics w pip/tazo and vancomycin Urine culture showing E. coli, pansensitive. Continue broad-spectrum antibiotics given the ongoing concern that patient may have pneumonia if pneumonia is deemed not the issue then antibiotics can likely be de-escalated tosolely address the urinary tract infection. (2) Acute hypoxemic respiratory failure: PLAN: CHF +/- pneumonia Intubated due to concern for on pending airway collapse given her numerous severe medical issues that are coalescing at present. On empiric antibiotics Wean vent per pulmonary (3) (HFpEF) heart failure with preserved ejection fraction: PLAN: Acute and ongoing EF noted as normal. Grossly normal EF on POCUS exam. Cannot rule out high-output failure due to severe anemia. Started on furosemide 60 mg daily. (4) Atrial fibrillation with RVR: PLAN: Improved new diagnosis but unclear how new this processes. Unable to anticoagulate due to anemia. May be exacerbated due to the severity of her underlying illnesses. No chronotropic meds at this time given the shock. (5) Acute blood loss anemia: PLAN: Unclear how long the patient has been anemic. Though looking back at her labs, patient hemoglobin of 13 on January 18 and then had hemoglobin of 7.6 on January 22 of this year. Her admission hemoglobin was 3.6. Transfused 4 units packed red blood cells, went up to 8, since drifted down to 7.2. Hold transfusion for now. Monitor. on IV PPI B12, folate, TSH WNL. Low iron and ferritin Received IV iron 05/22 EGD 05/22 showed non-bleeding ulcers in the duodenum. (6) Elevated troponin: PLAN: Mild elevation due to atrial fibrillation, respiratory failure, anemia. Demand ischemia from above. No gross wall abnormality on echo PLAN: Plan History of stroke: Patient not on any antiplatelet or any anticoagulation medications. Does have right-sided hemiparesis Hypertension: Holding off on amlodipine, carvedilol and hydralazine given shock. VTE prophylaxis with SCDs CODE STATUS: Addressed with the patient and her family. Patient is full code. Charges/Coding Visit Charges Inpatient E&M: 12269 Subs Hosp L2 05/24/25 1335 <Electronically signed by Matt Acevedo DO> Cosigner Signature (if applicable): CC: ~ Signed [facility] Work Phone: [phone]) 408-679408-28-2025 Progress note Author Julian Monsivais [facility] Note Date/Time May 24, 2025 12 :01pm [facility] Medical Records Department [address] [place] [address] Progress Note - [place] Department Operator 05/24/25 0519 MR#: [id number] Acct: [id number] Name: NANCY DELACRUZ Rep #:[id number] : 1965 59 From: Julian Monsivais DO PCP: Dr. Sabrina Duran, Status:ADM IN Location: ICU ICU03-1 Assessment & Plan Assessment/Plan (1) Acute hypoxemic respiratory failure: (2) Elevated troponin: (3) Acute on chronic kidney failure: (4) New onset a-fib: (5) Shock: PLAN: Plan RECOMMENDATIONS: 1. Perform SAT/SBT to assess readiness for extubation. 2. Continue Levophed to maintain a mean arterial pressure at or above 65 mmHg. 3. Continue to monitor H&H. Goal to maintain a hemoglobin at or above 7 g/dL. 4. Continue PPI therapy. 5. Continue empiric antibiotics. 6. Diuresis as tolerated by hemodynamics and renal function. IMPRESSIONS: 1. Undifferentiated shock Most likely secondary to hemorrhagic etiology in the setting of acute blood lossanemia. However, the patient does have a normal ejection fraction on echocardiogram. Therefore I cannot definitively say that the infiltrates noted on chest x-ray are related to pulmonary edema in the setting of CHF. Therefore,empiric antimicrobials were initiated to cover for septic etiologies. There is some concern for underlying pneumonia versus urinary tract source of infection. The patient has been transfused packed red blood cells and remains on Levophed to maintain hemodynamic stability. The patient is status post endoscopic evaluation by GI with gastric ulcers and nonbleeding duodenal ulcers noted. Thepatient will be continued on PPI therapy. 2. Acute hypoxemic respiratory failure Clinical concern for underlying pneumonia. While there was initial concern for decompensated heart failure, the patient's echocardiogram revealed a normal ejection fraction. She was ultimately intubated on May 21. The patient willbe continued on assist-control mode of mechanical ventilation, with a goal to wean FiO2 and PEEP to maintain saturations at or above 90%. Empiric antimicrobials will be continued, along with gentle diuresis, as tolerated by hemodynamics and renal function. Will plan to proceed with spontaneous awakening and breathing trials to assess readiness for extubation. 3. Acute on chronic kidney disease Most likely secondary to #1. Continue supportive care, including vasopressor support, if indicated. Avoid nephrotoxic medications. 4. Acute blood loss anemia Gastroenterology is following. Continue transfusion of blood products to achieve and maintain a hemoglobin at or above 7 g/dL. Continue PPI therapy as ordered. 5. Troponin elevation/atrial fibrillation Secondary to demand ischemia in the setting of #1. Echocardiogram revealed intact, normal systolic function. Given that the patient's rate is currently controlled, we will plan to continue supportive care. 6. History of CVA with residual deficits/hypertension/hyperlipidemia Complicates care, management, recovery and prognosis. Continue supportive measures as noted above. Continue to hold home antihypertensives. TIME: 33 minutes of critical care time, independent of procedures, was spent addressing the patient's undifferentiated shock, acute hypoxemic respiratory failure, acute on chronic kidney disease, acute blood loss anemia, review of alldata and collaboration with the care team. Subjective Subjective The patient was seen and examined at the bedside this morning. Events from the last 24 hours have been reviewed. The patient currently has a low-grade fever and remains on Levophed at 5 mcg/min to maintain hemodynamic stability. Oxygen saturations are stable on assist-control mode of mechanical ventilation with an FiO2 requirement of 35%. The patient is currently documented to be overall net +5 L for the hospitalization. Hemoglobin this morning was noted to be 7.5 g/dL. Chemistry profile was notable for a bicarbonate of 20 with BUN of 40 and creatinine of 2.01. Objective Data Objective Data The patient's most recent lab work, culture data and imaging studies have all been personally reviewed. Surface echocardiogram demonstrated mild concentric LVH with an ejection fraction of 60%. Blood, urine and sputum cultures are pending. Vital Signs: Vital Signs Temp Pulse Resp BP Pulse Ox O2 Del Method O2 Flow Rate 98.5 F 63 12 99/64 94 Mechanical Ventilator 60 05/24/25 05:00 05/24/25 05:00 05/24/25 05:00 05/24/25 05:00 05/24/25 05:00 05/24/25 05:00 05/21/25 18:45 FiO2 40 05/24/25 05:00 Oxygen Flow Rate (L/min) 60 Oxygen Delivery Method Mechanical Ventilator Weight: 184 lb 1.376 oz Body Mass Index (BMI) 30.6 Intake & Output: Intake and Output for Last 24 Hours 05/22/25 05/23/25 05/24/25 23:59 23:59 23:59 Intake Total 1809.42 / 1836.02 1036.49 / 1155.59 562.60 / 562.60 Output Total 1250 / 1575 460 / 910 900 / 900 Balance 559.42 / 261.02 576.49 / 245.59 -337.40 / -337.40 Lab / Micro Data Attestation: I reviewed the patient's lab results. 05/24/25 03:10 05/24/25 03:10 Labs: Laboratory Results - last 24 hr 05/23/25 13:14: Magnesium 2.5 H 05/23/25 15:20: Vancomycin Trough 20.8 H 05/23/25 18:14: Sodium 147 H, Potassium 3.6, Chloride 116 H, Carbon Dioxide 18.3L, Anion Gap 13, BUN 39 H, Creatinine 2.01 H, Estim Creat Clear Calc 31.05 L, Est GFR (MDRD) Non-Af 28 L, BUN/Creatinine Ratio 19.5, Glucose 77, Calcium 7.7, Magnesium 2.6 H 05/24/25 03:10: WBC 12.5 H, RBC 3.28 L, Hgb 7.5 L, Hct 25.8 L, MCV 78.7 L, MCH 22.9 L, MCHC 29.1 L, RDW Std Deviation 71.7 H, RDW Coeff of Federico 26.0 H, Plt Count 227, MPV 9.8, Immature Gran % (Auto) 0.600, Neut % (Auto) 82.2 H, Lymph % (Auto) 9.8 L, [place] % (Auto) 5.7, Eos % (Auto) 1.2, Baso % (Auto) 0.5, Absolute Neuts (auto) 10.3 H, Absolute Lymphs (auto) 1.23, Nucleated RBC % 0.6, Differential Comment SCANNED, Polychromasia 1+, Hypochromasia 1+, Anisocytosis 2+, Microcytosis 2+, Juan Francisco Cells 1+, Sodium 148 H, Potassium 3.3, Chloride 117 H,Carbon Dioxide 19.5 L, Anion Gap 12, BUN 40 H, Creatinine 2.01 H, Estim Creat Clear Calc 31.05 L, Est GFR (MDRD) Non-Af 28 L, BUN/Creatinine Ratio 19.7, Glucose 105 H, Calcium 7.7, Random Vancomycin 16.9 H Micro: Microbiology 05/21/25 17:40 Urine Catheter - Fiore Urine Culture - Final Escherichia coli 05/21/25 14:15 Sputum, Induced/Lukens Gram Stain - Final ABG Data ABG results: ABG 05/21/25 05/21/25 09:30 15:31 Specimen Type ART LJ Sample Site L Radial L Radial pH 7.46 H Bicarbonate Actual 16.4 L Total CO2 17 Base Excess -7 L O2 Saturation 97 O2 % 100.0 60.0 ABG pCO2 22.8 L ABG pO2 79 Kishan Test Positive VBG pH 7.41 VBG pO2 23 L VBG HCO3 20 L VBG Total CO2 21 L VBG O2 Sat (Calc) 42 L VBG Base Excess -4 L POC Mix VBG pCO2 Pt Tmp 32.4 L Respiration Rate 16 O2 Delivery Device NRB Adult Vent Vent Mode Not entered Tidal Volume 450.0 POC PEEP 5 Radiography Diagnostic Testing: Radiology Impression Chest X-Ray 05/23/25 05:30 IMPRESSION: Tubes and lines in position. Bilateral infiltrate and consolidation with a moderate left effusion, similar tothe prior. A component of CHF is not excluded. [facility] Ex[facility] Const Constitutional Narrative: Intubated, sedated and mechanically ventilated. No ventilator dyssynchrony. General Appearance: patient mechanically ventilated HEENT normocephalic and head/scalp atraumatic Mouth: endotracheal tube in place and OG tube in place Eyes PERRL, EOMs intact bilaterally and conjunctivae normal Neck supple General: trachea midline and CVC in place Chest inspection of chest normal Resp Auscultation: rales and diminished lung sounds Cardio S1 normal heart sound and S2 normal heart sound Rhythm: abnormal rhythm GI normal to inspection, nondistended, normoactive bowel sounds Extremity General Extremity: edema; Negative for clubbing Skin no rashes or lesions noted Neuro Neuro Narrative: Contracted right-sided extremities. Sensorium / Orientation: sedated on vent Charges/Coding Procedures Hospitalists Procedures: 80284 Critical Care 1st Hr 05/24/25 1201 <Electronically signed by Julian Monsivais DO> Cosigner Signature (if applicable): CC: ~ Signed [facility] Work Phone: 1(132) 679-212608-28-2025 Radiology Diagnostic study [facility]08-28-2025 Consult note Author Matt Haines [facility] Note Date/Time May 24, 2025 4: 41am [facility] Medical Records Department [address] [place] [address] Pharmacokinetic/Renal -Consult 05/24/25 0439 MR#: [id number] Acct: [id number] Name: NANCY DELACRUZ Rep #:[id number] : 1965 59 From: Matt Haines PCP: Dr. Sabrina Duran, DO Status:ADM IN Y Location: ICU ICU03-1 Consult Antibiotic Management Pharmacy has been consulted to manage selected antibiotic: Vancomycin Type of Intervention Type of Consult: Follow-up Labs Labs: Sodium 148 mmol/L (133-145) H 05/24/25 03:10 Potassium 3.3 mmol/L (3.3-5.1) 05/24/25 03:10 Chloride 117 mmol/L (98-108) H 05/24/25 03:10 Carbon Dioxide 19.5 mmol/L (21.0-32.0) L 05/24/25 03:10 Anion Gap 12 (5-15) 05/24/25 03:10 BUN 40 mg/dL (4-19) H 05/24/25 03:10 Creatinine 2.01 mg/dL (0.70-1.20) H 05/24/25 03:10 Est GFR (MDRD) Non-Af 28 (>60) L 05/24/25 03:10 BUN/Creatinine Ratio 19.7 RATIO (10-20) 05/24/25 03:10 Glucose 105 mg/dL (70-99) H 05/24/25 03:10 Vancomycin Trough 20.8 ug/mL (5.0-15.0) H 05/23/25 15:20 Random Vancomycin 16.9 ug/mL (0.0-15.0) H 05/24/25 03:10 Microbiology Microbiology: Microbiology 05/21/25 17:40 Urine Catheter - Fiore Urine Culture - Final Escherichia coli 05/21/25 14:15 Sputum, Induced/Lukens Gram Stain - Final Dosing Weight Weight used for dosin.8 kg Estimated Creatinine Clearance Estimated Creatinine Clearance: 31 Goal Trough Goal Trough: 15-20 mcg/mL Pharmacy Plan for Drug Dosing Pharmacy Plan for Drug Dosing: Vancomycin random level was back within the target range at 16.9. Per dosing calculator, a new dose of 750mg q24h should give an estimated new trough of 15.6. This will be started now, and a trough level will be drawn prior to the third dose of the new regimen. Pharmacy Service will continue to monitor and adjust dosing as required. Follow-Up Labs Follow-Up Labs: Trough: Vancomycin Date/Time Labs Ordered Labs to be done on [date and time ordered]: 05/26/25 @0430 05/24/25 0444 <Electronically signed by Matt wong> Date _ Matt Jang Signature (if applicable): Date CC: ~ Signed [facility] Work Phone: [phone]) 774-817308-27-2025 Consult note Author Rocio Ortiz [facility] Note Date/Time May 23, 2025 6: 23pm [facility] Medical Records Department [address] [place] [address] Pharmacokinetic/Renal -Consult 05/23/251821 MR#: [id number] Acct: [id number] Name: NANCY DELACRUZ Rep #:[id number] : 1965 59 From: Rocio Ortiz PCP: Dr. Sabrina Duran, DO Status:ADM IN Y Location: ICU ICU03-1 Consult Antibiotic Management Pharmacy has been consulted to manage selected antibiotic: Vancomycin Type of Intervention Type of Consult: Follow-up Labs Labs: Vancomycin Trough 20.8 ug/mL (5.0-15.0) H 05/23/25 15:20 Microbiology Microbiology: Microbiology 05/21/25 17:40 Urine Catheter - Fiore Urine Culture - Final Escherichia coli 05/21/25 14:15 Sputum, Induced/Lukens Gram Stain - Final Goal Trough Goal Trough: 15-20 mcg/mL Pharmacy Plan for Drug Dosing Pharmacy Plan for Drug Dosing: VANCOMYCIN LEVEL RECEIVED Current Vancomycin Dose: 1000mg IV Q24h Number of Doses Received: 2 (initial + 1 scheduled) Vancomycin Level: 20.8 Hours Since Last Dose: 24hr Renal Function: scr 1.98/ crcl 31 mL/min Renal Function Trend: improving SCr since initiation of vancomycin Lab/Micro: BCx/ SCx pending, UCx growing e.coli spp Vancomycin Plan/Comments: patient had a trough drawn which resulted in a value of 20.8 (goal 15-20). Patient's trough is above therapeutic goal. Will hold vancomycin and recheck a trough in 12 hours. Will resume vancomycin once trough is <20 per protocol Pending Level: *RANDOM* 05/24/25 @0300 Pharmacy Service will continue to monitor and adjust dosing as required. 05/23/251822 <Electronically signed by Rocio Ortiz > Date _ Rocio Ortiz Cosigner Signature (if applicable): Date CC: ~ Signed [facility] Work Phone: 1(245) 290-345308-27-2025 Progress note Author Matt Acevedo [facility] Note Date/Time May 23, 2025 1: 26pm [facility] Medical Records Department [address] [place] [address] Progress Note - Hospitalist 05/23/25 0737 MR#: [id number] Acct: [id number] Name: NANCY DELACRUZ Rep #:[id number] : 1965 59 From: Matt Acevedo DO PCP: Dr. Sabrina Duran, Status:ADM IN Location: ICU ICU03-1 Reason for Visit Chief Complaint: altered level of consciousness. Subjective Subjective Still requiring ventilator still on norepinephrine. Objective Data Objective Data Vital Signs: Vital Signs Temp Pulse Resp BP Pulse Ox O2 Del Method O2 Flow Rate 37.4 C H 59 L 16 100/59 L 94 Mechanical Ventilator 60 05/23/25 04:00 05/23/25 07:00 05/23/25 07:00 05/23/25 07:00 05/23/25 07:00 05/23/25 07:00 05/21/25 18:45 FiO2 45 05/23/25 07:00 Oxygen Flow Rate (L/min) 60 Oxygen Delivery Method Mechanical Ventilator Weight: 81.8 kg Body Mass Index (BMI) 29.9 Intake & Output: Intake and Output for Last 24 Hours 05/21/25 05/22/25 05/23/25 23:59 23:59 23:59 Intake Total 3304.67 / 3333.77 1809.42 / 1836.02 270.95 / 270.95 Output Total 150 / 450 1250 / 1575 425 / 425 Balance 3154.67 / 2883.77 559.42 / 261.02 -154.05 / -154.05 Lab / Micro Data 05/23/25 03:55 05/23/25 03:55 Labs: Laboratory Results - last 24 hr 05/22/25 12:20: Hgb 7.8 L, Hct 25.0 L 05/23/25 03:55: WBC 13.9 H, RBC 3.14 L, Hgb 7.2 L, Hct 24.0 L, MCV 76.4 L, MCH 22.9 L, MCHC 30.0 L, RDW Std Deviation 66.5 H, RDW Coeff of Federico 24.9 H, Plt Count 239, MPV 9.9, Immature Gran % (Auto) CEREAL CHEMIST, Neut % (Auto) CEREAL CHEMIST, Lymph % (Auto) CEREAL CHEMIST, [place] % (Auto) CEREAL CHEMIST, Eos % (Auto) CEREAL CHEMIST, Baso % (Auto) CEREAL CHEMIST, Absolute Neuts (auto) 11.6 H, Absolute Lymphs (auto) 1.32, Nucleated RBC % 0.8, Differential Comment ,Plt Morphology Comment LARGE, Polychromasia 1+, Anisocytosis 2+, Macrocytosis 1+, Ovalocytes RARE, Sodium 146 H, Potassium 3.8, Chloride 118 H, Carbon Ufbfiya32.8 L, Anion Gap 10, BUN 42 H, Creatinine 1.98 H, Estim Creat Clear Calc 31.52 L, Est GFR (MDRD) Non-Af 28 L, BUN/Creatinine Ratio 21.0 H, Glucose 88, Calcium 7.6 Micro: Microbiology 05/21/25 14:15 Sputum, Induced/Lukens Gram Stain - Final 05/21/25 17:40 Urine Catheter - Fiore Urine Culture - Preliminary Gram negative grace ABG Data ABG results: ABG 05/23/25 04:45 Specimen Type ART Sample Site L Radial pH 7.47 H Bicarbonate Actual 19.3 L Total CO2 20 Base Excess -4 L O2 Saturation 95 O2 % 45.0 ABG pCO2 26.6 L ABG pO2 67 L Kishan Test Positive Respiration Rate 16 O2 Delivery Device Adult Vent Vent Mode AC Tidal Volume 450.0 POC PEEP 5 Radiography Diagnostic Testing: Radiology Impression Chest X-Ray 05/23/25 05:30 IMPRESSION: Tubes and lines in position. Bilateral infiltrate and consolidation with a moderate left effusion, similar tothe prior. A component of CHF is not excluded. Reading Location: [facility] Physical Exam Const Constitutional Narrative: Intubated. Sedated. Opens eyes to voice. Resp Resp Narrative: Coarse breath sounds bilaterally Cardio regular rate, regular rhythm, S1 normal heart sound, S2 normal heart sound and no murmurs GI normal to inspection, nondistended, normoactive bowel sounds, soft to palpation,non-tender and non-distended Neuro Sensorium / Orientation: awake and alert Assessment & Plan Assessment/Plan (1) Shock: PLAN: Undifferentiated at this time. Concern for hemorrhagic plus minus septic shock. Within normal EF cardiogenic ruled out. Right IJ triple-lumen catheter placed. Patient started on norepinephrine. Not acandidate for 30 cc/kg of IVF given CHF. Follow up cultures. Possible UTI with abnormal UA, but UCx showing only 1-10k organisms at this time. Started on empiric antibiotics w pip/tazo and vancomycin Urine culture showing E. coli, pansensitive. Will continue with broad-spectrum antibiotics at least for another 24 hours and if no other culture results are positive then can may consider de-escalation at that time. (2) Acute hypoxemic respiratory failure: PLAN: CHF +/- pneumonia Intubated due to concern for on pending airway collapse given her numerous severe medical issues that are coalescing at present. On empiric antibiotic Unable to diurese at this time given shock. (3) (HFpEF) heart failure with preserved ejection fraction: PLAN: Acute and ongoing EF noted as normal. Grossly normal EF on POCUS exam. Cannot rule out high-output failure due to severe anemia. Started on furosemide 60 mg daily. (4) Atrial fibrillation with RVR: PLAN: Improved new diagnosis but unclear how new this processes. Unable to anticoagulate due to anemia. May be exacerbated due to the severity of her underlying illnesses. (5) Acute blood loss anemia: PLAN: Unclear how long the patient has been anemic. Though looking back at her labs, patient hemoglobin of 13 on January 18 and then had hemoglobin of 7.6 on January 22 of this year. Her admission hemoglobin was 3.6. Transfused 4 units packed red blood cells, went up to 8, since drifted down to 7.2. Hold transfusion for now. Monitor. on IV PPI B12, folate, TSH WNL. Low iron and ferritin Received IV iron 05/22 EGD 05/22 unremarkable. (6) Elevated troponin: PLAN: Mild elevation due to atrial fibrillation, respiratory failure, anemia. Demand ischemia from above. No gross wall abnormality on echo PLAN: Plan History of stroke: Patient not on any antiplatelet or any anticoagulation medications. Does have right-sided hemiparesis Hypertension: Holding off on amlodipine, carvedilol and hydralazine given shock. VTE prophylaxis with SCDs CODE STATUS: Addressed with the patient and her family. Patient is full code. Charges/Coding Visit Charges Inpatient E&M: 85745 Subs Hosp L2 05/23/25 1326 <Electronically signed by Matt Acevedo DO> Cosigner Signature (if applicable): CC: ~ Signed [facility] Work Phone: [phone]) 165-612508-27-2025 Progress note Author Sadi Andrade [facility] Note Date/Time May 23, 2025 1: 01pm [facility] Medical Records Department [address] [place] [address] Progress Note - [place]y Department Operator 05/23/25 1254 MR#: [id number] Acct: [id number] Name: NANCY DELACRUZ Rep #:[id number] : 1965 59 From: Sadi Andrade MD PCP: Dr. Sabrina Duran DO Status:ADM IN Location: ICU ICU03-1 Objective Data Objective Data Vital Signs: Vital Signs Last response 3 Temperature 37.4 C H 05/23/25 12:00 Temperature Source Core 05/23/25 12:00 Pulse Rate 68 05/23/25 12:00 Pulse Strength Weak (1+) 05/23/25 09:33 Respiratory Rate 16 05/23/25 12:00 Respiratory Effort Mechanically Ventilated 05/23/25 12:00 Respiratory Depth Normal 05/23/25 08:15 Respiratory Pattern Normal 05/23/25 11:07 Blood Pressure 96/56 L 05/23/25 12:00 Blood Pressure Mean 69 05/23/25 12:00 Blood Pressure Source Monitor 05/23/25 12:00 Blood Pressure Position Semi-Fowlers 05/22/25 19:00 Blood Pressure Location Right Forearm 05/22/25 19:00 Pulse Ox 96 05/23/25 12:00 Oxygen Delivery Method Mechanical Ventilator 05/23/25 12:00 Oxygen Flow Rate (L/min) 60 05/21/25 18:45 Fraction of Inspired Oxygen (FIO2) 40 05/23/25 12:00 I&O: I&O Last 24 Hours 3 05/22/25 05/23/25 05/23/25 23:59 11:59 23:59 Intake Total 927.57 / 1836.02 540.16 / 560.81 20.65 / 560.81 Output Total 450 / 1575 425 / 435 10 / 435 Balance 477.57 / 261.02 115.16 / 125.81 10.65 / 125.81 I&O: Total Stay 3 05/21/25 09:17 thru 05/23/25 12:00 Intake Total 5674.90 Output Total 1835 Balance 3839.90 Current Meds Ordered / Administered: Current meds ordered / Administered 3 Generic Name Dose Route Start Last Admin Trade Name Freq PRN Reason Stop Dose Admin Acetaminophen 650 mg 05/21/25 12:35 Acetaminophen 325 Mg Tablet PO Q6H PRN PRN Pain 1-10 Or Fever >100.7 Chlorhexidine Gluconate 15 ml 05/22/25 10:00 05/23/25 09:28 Chlorhexidine 15 Ml PO 15 ml BID JOSÉ MIGUEL Administration Chlorhexidine Gluconate 1 each 05/22/25 10:00 05/23/25 12:38 Chlorhexidine Gluc 2% Cloth 1 Each Towelette TOPICAL 1 each DAILY JOSÉ MIGUEL Administration Furosemide 60 mg 05/23/25 12:50 Furosemide 100 Mg/10 Ml Vial IV DAILY JOSÉ MIGUEL Protocol Pantoprazole Sodium 40 mg/ 100 mls @ 300 mls/hr 05/21/25 12:35 05/23/25 09:47 Sodium Chloride IV Infused Q12 JOSÉ MIGUEL Infusion Sodium Chloride 250 mls @ 15 mls/hr 05/21/25 13:29 05/22/25 19:30 IV 0 mls/hr .[id number] PRN Infusion Saline Flush Sodium Chloride 250 mls @ 15 mls/hr 05/21/25 13:29 IV .[id number] PRN Additional IVPB Infusion Fentanyl 100 mls @ 5 mls/hr 05/21/25 13:35 05/23/25 12:00 CONT INF 100 mcg/hr UD JOSÉ MIGUEL 10 mls/hr Titration Protocol 50 MCG/HR Piperacillin Sod/Tazobactam 50 mls @ 12.5 mls/hr 05/21/25 14:00 05/23/25 09:44 Sod 3.375 gm/ Sodium Chloride IV Infused Q8 JOSÉ MIGUEL Infusion Vancomycin IV-PHARMACY TO DOSE 500 mls @ 250 mls/hr 05/21/25 13:36 1 each/ Sodium Chloride IV X1 PRN Rx to Dose Protocol Norepinephrine Bitartrate 8 mg 250 mls @ 9.375 mls/hr 05/21/25 13:40 05/23/2512:00 / Sodium Chloride CONT INF 2 mcg/min .[id number] JOSÉ MIGUEL 3.8 mls/hr Titration Protocol 5 MCG/MIN Propofol 1,000 mg in 100 mls @ 4.83 mls/hr 05/21/25 14:50 05/23/25 12:00 Diprivan CONT INF 20 mcg/kg/min .Q12H JOSÉ MIGUEL 9.7 mls/hr Titration Protocol 10 MCG/KG/MIN Vancomycin HCl 1,000 mg/ 270 mls @ 250 mls/hr 05/22/25 15:30 05/22/25 16:19 Sodium Chloride IV Infused Q24H JOSÉ MIGUEL Infusion Enteral Nutritional Formula 1,000 mls @ 50 mls/hr 05/23/25 09:40 05/23/25 12:37 Vital Af 1.2 Aravind Liquid GT Not Given .Q20H JOSÉ MIGUEL Ondansetron HCl 4 mg 05/21/25 12:35 Ondansetron 4 Mg/2 Ml Vial IV Q8H PRN PRN NAUSEA/VOMITING Sodium Chloride 10 - 40 ml 05/21/25 13:29 05/23/25 03:56 0.9% Saline Lock 10 Ml Syringe IV 20 ml UD PRN Administration SALINE FLUSH Vancomycin Protocol 1 lab 05/23/25 14:00 Vancomycin Trough/Random Due [facility] 05/23/25 16:00 [facility] Lab / Micro Data 05/23/25 03:55 05/23/25 03:55 Labs: Laboratory Results - last 24 hr 05/23/25 03:55: WBC 13.9 H, RBC 3.14 L, Hgb 7.2 L, Hct 24.0 L, MCV 76.4 L, MCH 22.9 L, MCHC 30.0 L, RDW Std Deviation 66.5 H, RDW Coeff of Federico 24.9 H, Plt Count 239, MPV 9.9, Immature Gran % (Auto) CEREAL CHEMIST, Neut % (Auto) CEREAL CHEMIST, Lymph % (Auto) CEREAL CHEMIST, [place] % (Auto) CEREAL CHEMIST, Eos % (Auto) CEREAL CHEMIST, Baso % (Auto) CEREAL CHEMIST, Absolute Neuts (auto) 11.6 H, Absolute Lymphs (auto) 1.32, Nucleated RBC % 0.8, Differential Comment ,Plt Morphology Comment LARGE, Polychromasia 1+, Anisocytosis 2+, Macrocytosis 1+, Ovalocytes RARE, Sodium 146 H, Potassium 3.8, Chloride 118 H, Carbon Cjxeaig86.8 L, Anion Gap 10, BUN 42 H, Creatinine 1.98 H, Estim Creat Clear Calc 31.52 L, Est GFR (MDRD) Non-Af 28 L, BUN/Creatinine Ratio 21.0 H, Glucose 88, Calcium 7.6 Micro: Microbiology 05/21/25 17:40 Urine Catheter - Fiore Urine Culture - Final Escherichia coli 05/21/25 14:15 Sputum, Induced/Lukens Gram Stain - Final ABG Data ABG results: ABG 05/23/25 04:45 Specimen Type ART Sample Site L Radial pH 7.47 H Bicarbonate Actual 19.3 L Total CO2 20 Base Excess -4 L O2 Saturation 95 O2 % 45.0 ABG pCO2 26.6 L ABG pO2 67 L Kishan Test Positive Respiration Rate 16 O2 Delivery Device Adult Vent Vent Mode AC Tidal Volume 450.0 POC PEEP 5 Imaging Radiology Impression Chest X-Ray 05/23/25 05:30 IMPRESSION: Tubes and lines in position. Bilateral infiltrate and consolidation with a moderate left effusion, similar tothe prior. A component of CHF is not excluded. Reading Location: [facility] Assessment and Plan . Assessment and plan: 1. Acute hypoxemic respiratory failure: ? 2/2 CHF(BNP very high on admit). Vent check made /450/35/5. Start diuresis. SAT and SBT today. 2. GI bleed: s/p 4 units. EGD 05/22 showed non bleeding gastric/duod ulcers. Continue PPI 3. Acute Blood Loss Anemia: s/p 4 units. H/H relatively stable. Will follow. 4. Shock: Suspect hypovolemic on admit though likely sedation effect at current.Lift sedation to assess if BP improves. 5. CHF exac: Globally volume overloaded. EF noted to be normal. BNP extremely high. Given improved BP, will start diuresis. 6. CAP: ?. Patchy central appearing infiltrates. Suspect CHF. On antibxs. Will assess to see if improves with diuresis. 7. UTI: Ecoli. Swartz sensitive. Continue antibxs. 8. Afib: Rate controlled at current 9. RAMEZ: Some improvement in Cr. Today. Will follow 10. NAGMA: 2/2 NS. Will follow 11. FEN: TFs soon if not extubated. 12. PX: SCDs d/w brother at bedside, Sadi Andrade MD cc time 50 minutes entire encounter done via telemedicine Physical Exam Narrative intubated/sedated, awakens when name called pupils:= ETT in place CV: RRR chest: CTA B except mild crackles in bases Abd: soft, nt, +bs Ext: no c/c, ++ Edema Subjective Subjective chart reviewed. Pressor req better. Desats with movement 05/23/25 1301 <Electronically signed by Sadi Andrade MD> Cosigner Signature (if applicable): CC: ~ Signed [facility] Work Phone: 1(609) 829-117608-27-2025 Procedure [facility] 05-23-2025 Procedure [facility]08-27-2025 Radiology Diagnostic study [facility]08-26-2025 NoteAcceptable Specimen? Acceptable Specimen(Evaluation not needed) Gram Stain 1+ Gram positive cocci 4+ Red Blood Cells Rare White Blood CellsWOhioHealth Pickerington Methodist HospitalComment on above:Performed By: #### M100.2000, M100.2400 ####[facility] [id number] [facility], [phone]) 401-208908-26-2025 Progress note Author Matt Acevedo [facility] Note Date/Time May 22, 2025 1: 26pm [facility] Medical Records Department [address] [place] [address] Progress Note - Hospitalist 05/22/25 0752 MR#: [id number] Acct: [id number] Name: NANCY DELACRUZ Rep #:[id number] : 1965 59 From: Matt Acevedo DO PCP: Dr. Sabrina Duran, DO Status:ADM IN Location: ICU ICU03-1 Reason for Visit Chief Complaint: altered level of consciousness. Subjective Subjective Still on the ventilator. Still requiring norepinephrine. Objective Data Objective Data Vital Signs: Vital Signs Temp Pulse Resp BP Pulse Ox O2 Del Method O2 Flow Rate 38.1 C H 81 16 104/68 97 Mechanical Ventilator 60 05/22/25 07:00 05/22/25 07:00 05/22/25 07:00 05/22/25 07:00 05/22/25 07:00 05/22/25 07:48 05/21/25 18:45 FiO2 70 05/22/25 07:00 Oxygen Flow Rate (L/min) 60 Oxygen Delivery Method Mechanical Ventilator Weight: 80.9 kg Body Mass Index (BMI) 29.7 Intake & Output: Intake and Output for Last 24 Hours 05/20/25 05/21/25 05/22/25 23:59 23:59 23:59 Intake Total 3304.67 / 3333.77 440.90 / 440.90 Output Total 150 / 450 600 / 600 Balance 3154.67 / 2883.77 -159.10 / -159.10 Lab / Micro Data 05/22/25 12:20 05/22/25 03:00 Labs: Laboratory Results - last 24 hr 05/21/25 09:29: WBC 14.7 H, RBC 2.23 L, Hgb 3.6 L*, Hct 14.4 L, MCV 64.6 L, MCH 16.1 L, MCHC 25.0 L, RDW Std Deviation 46.6 H, RDW Coeff of Federico 21.1 H, Plt Count 426, MPV 10.2, Immature Gran % (Auto) 0.900, Neut % (Auto) 88.4 H, Lymph %(Auto) 6.5 L, [place] % (Auto) 4.1, Eos % (Auto) 0.0, Baso % (Auto) 0.1, Absolute Neuts (auto) 13.0 H, Absolute Lymphs (auto) 0.95, Nucleated RBC % 1.0, Differential Comment SCANNED, Hypochromasia 3+, Anisocytosis 2+, Sodium 140, Potassium 5.8 H, Chloride 105, Carbon Dioxide 14.9 L, Anion Gap 21 H, BUN 56 H, Creatinine 2.35 H, Estim Creat Clear Calc 26.86 L, Est GFR (MDRD) Non-Af 23 L, BUN/Creatinine Ratio 23.8 H, Glucose 120 H, Lactic Acid 6.7 H*, Calcium 8.3, Total Bilirubin 1.05, AST 20, ALT 16, Alkaline Phosphatase 74, Troponin T High Sens 35 H, Total Protein 6.7, Albumin 3.3 L, Globulin 3.4, Albumin/Globulin Ratio 1.0 05/21/25 10:15: Iron 11 L, TIBC 361, Iron Saturation 3.0 L, Unsaturated IBC 350,Ferritin 53, Blood Type A POSITIVE, Antibody Screen NEGATIVE, Crossmatch See Detail 05/21/25 11:45: Troponin T Hi Sens 2 Hr 35 H 05/21/25 11:55: PT 16.9 H, INR 1.3 05/21/25 13:55: Hgb 4.4 L*, Hct 16.0 L, Lactic Acid 2.9 H*, Iron 22 L, TIBC 338,Iron Saturation 7.0 L, Unsaturated IBC 316, Ferritin 62, Total Creatine Kinase 97, Troponin T Hi Sens 4Hr 32 H, [place] [address] H, Triglycerides 80, Vitamin B12 717, Procalcitonin 0.51 H, TSH 1.040 05/21/25 17:30: Serum Folate 5.60 05/21/25 17:40: Urine Color Yellow, Urine Clarity Cloudy, Urine pH 5.0, Ur Specific Cavour 1.020, Urine Protein 100 H, Urine Glucose (UA) Normal, Urine Ketones Negative, Urine Occult Blood 150 H, Urine Nitrite Negative, Urine Bilirubin Negative, Urine Urobilinogen Normal, Ur Leukocyte Esterase 500 H, Urine RBC 10-25 SEEN, Urine WBC >100 SEEN, Ur Squamous Epith Cells 5-10 SEEN, Urine Bacteria 2+, Urine Mucus 0 SEEN 05/22/25 03:00: WBC 23.5 H, RBC 3.52 L, Hgb 8.0 L, Hct 25.9 L, MCV 73.6 L D, MCH22.7 L, MCHC 30.9 L D, RDW Std Deviation 61.6 H, RDW Coeff of Federico 23.9 H, Plt Count 311, MPV 9.4, Immature Gran % (Auto) 0.900, Neut % (Auto) 92.0 H, Lymph % (Auto) 2.3 L, [place] % (Auto) 4.6, Eos % (Auto) 0.0, Baso % (Auto) 0.2, Absolute Neuts (auto) 21.6 H, Absolute Lymphs (auto) 0.53 L, Nucleated RBC % 1.5, Differential Comment SCANNED, Sodium 142, Potassium 4.1, Chloride 114 H, Carbon Dioxide 18.0 L, Anion Gap 10, BUN 54 H, Creatinine 2.23 H, Estim Creat Clear Calc 27.77 L, Est GFR (MDRD) Non-Af 24 L, BUN/Creatinine Ratio 24.2 H, Glucose 94, Calcium 7.4 L, Phosphorus 4.2, Magnesium 2.4 H ABG Data ABG results: ABG 05/21/25 05/21/25 05/22/25 09:30 15:31 07:04 Specimen Type ART LJ ART Sample Site L Radial L Radial L Radial pH 7.46 H 7.41 Bicarbonate Actual 16.4 L 20.7 L Total CO2 17 22 Base Excess -7 L -4 L O2 Saturation 97 96 O2 % 100.0 60.0 70.0 ABG pCO2 22.8 L 32.5 L ABG pO2 79 79 Kishan Test Positive VBG pH 7.41 VBG pO2 23 L VBG HCO3 20 L VBG Total CO2 21 L VBG O2 Sat (Calc) 42 L VBG Base Excess -4 L POC Mix VBG pCO2 Pt Tmp 32.4 L Respiration Rate 16 16 O2 Delivery Device NRB Adult Vent Adult Vent Vent Mode Not entered AC Tidal Volume 450.0 450.0 POC PEEP 5 8 Radiography Diagnostic Testing: Radiology Impression Chest X-Ray 05/21/25 09:20 IMPRESSION: Underexpanded lungs with superimposed airspace opacifications in both lung cox suggesting either pulmonary vascular congestion/CHF or a diffuse inflammatory process. Follow-up recommended to ensure complete resolution Reading Location: [id number] Echocardiogram 05/21/25 10:51 Interpretation Summary Normal LV size. Mild concentric left ventricular hypertrophy. Left ventricular systolic function is normal. The left ventricular ejection fraction is 60 %. Apical hypertrophic cardiomyopathy present. Contrast injection was performed. Ordering Physician: Dar Hunt Referring Physician: SABRINA ROCHA Performed By: Lana Rajput RCS Chest X-Ray 05/21/25 14:11 IMPRESSION: Bilateral pulmonary airspace disease is again seen, with some areas improved in some areas worsened since the prior study, overall of similar severity, however. No pleural effusion or pneumothorax is seen. Interval placement of nasogastric tube, seen coursing of the stomach, endotracheal tube, with tip proximally 1 cm above the iraida, and right jugular central venous catheter, with tip projecting over the distal SVC. The cardiomediastinal silhouette is stable, without evidence of cardiomegaly. Reading Location: [facility] Renal Ultrasound 05/21/25 14:49 IMPRESSION: No hydronephrosis. 4 mm nonobstructive calculus within the left kidney. 3.1 x 3.5 cm and 3.4 x 2.9 cm cysts within the right kidney and 1.9 x 1.6 cm cyst within the left kidney. Reading Location: [facility] Chest X-Ray 05/22/25 06:00 IMPRESSION: Tubes and lines in position. There is cardiomegaly with prominent central vascular markings. There is patchy consolidation throughout the right lung and left perihilar region, increased. There is a moderate left effusion, slightly increased. Reading Location: [facility] Physical Exam Const Constitutional Narrative: Intubated. Sedated. HEENT head/scalp atraumatic and moist oral mucous membranes Resp normal respiratory effort, no retractions, no use of accessory muscles and clearto auscultation bilaterally Cardio regular rate, regular rhythm, S1 normal heart sound and S2 normal heart sound GI normal to inspection, nondistended, normoactive bowel sounds, soft to palpation,non-tender, non-distended and hepatosplenomegaly Extremity normal to inspection General Extremity: edema Assessment & Plan Assessment/Plan (1) Shock: PLAN: Undifferentiated at this time. Concern for hemorrhagic plus minus septic shock. Within normal EF cardiogenic ruled out. Right IJ triple-lumen catheter placed. Patient started on norepinephrine. Not acandidate for 30 cc/kg of IVF given CHF. Follow up cultures. Follow-up urinalysis Started on empiric antibiotics (2) Acute hypoxemic respiratory failure: PLAN: CHF +/- pneumonia Intubated due to concern for on pending airway collapse given her numerous severe medical issues that are coalescing at present. On empiric antibiotic Unable to diurese at this time given shock. (3) (HFpEF) heart failure with preserved ejection fraction: PLAN: Acute EF noted as normal. Grossly normal EF on POCUS exam. Cannot rule out high-output failure due to severe anemia. (4) Atrial fibrillation with RVR: PLAN: New diagnosis but unclear how new this processes. Unable to anticoagulate due to anemia. May be exacerbated due to the severity of her underlying illnesses. (5) Acute blood loss anemia: PLAN: Unclear how long the patient has been anemic. Though looking back at her labs, patient hemoglobin of 13 on January 18 and then had hemoglobin of 7.6 on January 22 of this year. Her admission hemoglobin was 3.6. Transfused 4 units packed red blood cells, now Hg up to 8 GI consult for evaluation. On IV PPI. B12, folate, TSH WNL. Low iron and ferritin Will give IV iron (6) Elevated troponin: PLAN: Mild elevation due to atrial fibrillation, respiratory failure, anemia. Demand ischemia from above. No gross wall abnormality on echo PLAN: Plan History of stroke: Patient not on any antiplatelet or any anticoagulation medications. Does have right-sided hemiparesis Hypertension: Holding off on amlodipine, carvedilol and hydralazine given shock. VTE prophylaxis with SCDs CODE STATUS: Addressed with the patient and her family. Patient is full code. Discussed with the patient's brother at bedside. Charges/Coding Visit Charges Inpatient E&M: 04850 Subs Hosp L2 05/22/25 1326 <Electronically signed by Matt Acevedo DO> Cosigner Signature (if applicable): CC: ~ Signed [facility] Work Phone: 1([phone]) 183-251208-26-2025 Progress note Author Julian Monsivais [facility] Note Date/Time May 22, 2025 10 :50am [facility] Medical Records Department [address] [place] [address] Progress Note - [place] Department Operator 05/22/25 0532 MR#: [id number] Acct: [id number] Name: NANCY DELACRUZ Rep #:[id number] : 1965 59 From: Julian Monsivais DO PCP: Dr. Sabrina Duran DO Status:ADM IN Location: ICU ICU03-1 Assessment & Plan Assessment/Plan (1) Acute hypoxemic respiratory failure: (2) Elevated troponin: (3) Acute on chronic kidney failure: (4) New onset a-fib: (5) Shock: PLAN: Plan RECOMMENDATIONS: 1. Continue assist-control mode mechanical ventilation. Wean FiO2 and PEEP as tolerated. 2. Continue Levophed to maintain a mean arterial pressure at or above 65 mmHg. 3. Recheck H&H. Goal to maintain a hemoglobin at or above 7 g/dL. 4. Continue PPI therapy. 5. Continue empiric antibiotics, pending culture results. 6. Gastroenterology following with tentative plans for endoscopic evaluation. IMPRESSIONS: 1. Undifferentiated shock Most likely secondary to hemorrhagic etiology in the setting of acute blood lossanemia. However, the patient does have a normal ejection fraction on echocardiogram. Therefore I cannot definitively say that the infiltrates noted on chest x-ray are related to pulmonary edema in the setting of CHF. Therefore,empiric antimicrobials were initiated to cover for septic etiologies. There is some concern for underlying pneumonia versus urinary tract source of infection. The patient has been transfused packed red blood cells and remains on Levophed to maintain hemodynamic stability. There are tentative plans to proceed with endoscopic evaluation later today. The patient will be continued on PPI therapy. 2. Acute hypoxemic respiratory failure Clinical concern for underlying pneumonia. While there was initial concern for decompensated heart failure, the patient's echocardiogram revealed a normal ejection fraction. She was ultimately intubated on May 21. The patient willbe continued on assist-control mode of mechanical ventilation, with a goal to wean FiO2 and PEEP to maintain saturations at or above 90%. Empiric antimicrobials will be continued, pending infectious workup. 3. Acute on chronic kidney disease Most likely secondary to #1. Continue supportive care, including vasopressor support, if indicated. Avoid nephrotoxic medications. 4. Acute blood loss anemia Gastroenterology is following. Continue transfusion of blood products to achieve and maintain a hemoglobin at or above 7 g/dL. Continue PPI therapy as ordered. 5. Troponin elevation/atrial fibrillation Secondary to demand ischemia in the setting of #1. Echocardiogram revealed intact, normal systolic function. Given that the patient's rate is currently controlled, we will plan to continue supportive care. 6. History of CVA with residual deficits/hypertension/hyperlipidemia Complicates care, management, recovery and prognosis. Continue supportive measures as noted above. Continue to hold home antihypertensives. TIME: 34 minutes of critical care time, independent of procedures, was spent addressing the patient's undifferentiated shock, acute hypoxemic respiratory failure, acute on chronic kidney disease, acute blood loss anemia, review of alldata and collaboration with the care team. Subjective Subjective The patient was seen and examined at the bedside this morning. Events from the last 24 hours have been reviewed. The patient currently has a low-grade fever and remains on Levophed at 10 mcg/min to maintain hemodynamic stability. The patient is currently documented to be overall net +3.1 L for the hospitalization. She has been transfused a total of 4 units of packed red bloodcells, to date. White blood cell count is elevated at 23,000 with a hemoglobin of 8.0 g/dL. ABG this morning was notable for a pH of 7.41 with a pCO2 of 33 and PO2 of 79. The patient remains on assist- control mode of mechanical ventilation. Chemistry profile was notable for a chloride of 114, bicarbonate of 18, BUN of 54 and creatinine of 2.23. There are tentative plans to proceed with endoscopic GI evaluation later today. Objective Data Objective Data The patient's most recent lab work, culture data and imaging studies have all been personally reviewed. Surface echocardiogram demonstrated mild concentric LVH with an ejection fraction of 60%. Blood, urine and sputum cultures are pending. Vital Signs: Vital Signs Temp Pulse Resp BP Pulse Ox O2 Del Method O2 Flow Rate 100.2 F H 74 16 102/61 100 Mechanical Ventilator 60 05/22/25 03:00 05/22/25 05:10 05/22/25 05:10 05/22/25 05:00 05/22/25 05:10 05/22/25 05:00 05/21/25 18:45 FiO2 90 05/22/25 05:10 Oxygen Flow Rate (L/min) 60 Oxygen Delivery Method Mechanical Ventilator Weight: 178 lb 5.663 oz Body Mass Index (BMI) 29.7 Intake & Output: Intake and Output for Last 24 Hours 05/20/25 05/21/25 05/22/25 23:59 23:59 23:59 Intake Total 3304.67 / 3333.77 340.19 / 340.19 Output Total 150 / 450 300 / 300 Balance 3154.67 / 2883.77 40.19 / 40.19 Lab / Micro Data Attestation: I reviewed the patient's lab results. 05/22/25 03:00 05/22/25 03:00 Labs: Laboratory Results - last 24 hr 05/21/25 09:29: WBC 14.7 H, RBC 2.23 L, Hgb 3.6 L*, Hct 14.4 L, MCV 64.6 L, MCH 16.1 L, MCHC 25.0 L, RDW Std Deviation 46.6 H, RDW Coeff of Federico 21.1 H, Plt Count 426, MPV 10.2, Immature Gran % (Auto) 0.900, Neut % (Auto) 88.4 H, Lymph %(Auto) 6.5 L, [place] % (Auto) 4.1, Eos % (Auto) 0.0, Baso % (Auto) 0.1, Absolute Neuts (auto) 13.0 H, Absolute Lymphs (auto) 0.95, Nucleated RBC % 1.0, Differential Comment SCANNED, Hypochromasia 3+, Anisocytosis 2+, Sodium 140, Potassium 5.8 H, Chloride 105, Carbon Dioxide 14.9 L, Anion Gap 21 H, BUN 56 H, Creatinine 2.35 H, Estim Creat Clear Calc 26.86 L, Est GFR (MDRD) Non-Af 23 L, BUN/Creatinine Ratio 23.8 H, Glucose 120 H, Lactic Acid 6.7 H*, Calcium 8.3, Total Bilirubin 1.05, AST 20, ALT 16, Alkaline Phosphatase 74, Troponin T High Sens 35 H, Total Protein 6.7, Albumin 3.3 L, Globulin 3.4, Albumin/Globulin Ratio 1.0 05/21/25 10:15: Iron 11 L, TIBC 361, Iron Saturation 3.0 L, Unsaturated IBC 350,Ferritin 53, Blood Type A POSITIVE, Antibody Screen NEGATIVE, Crossmatch See Detail 05/21/25 11:45: Troponin T Hi Sens 2 Hr 35 H 05/21/25 11:55: PT 16.9 H, INR 1.3 05/21/25 13:55: Hgb 4.4 L*, Hct 16.0 L, Lactic Acid 2.9 H*, Iron 22 L, TIBC 338,Iron Saturation 7.0 L, Unsaturated IBC 316, Ferritin 62, Total Creatine Kinase 97, Troponin T Hi Sens 4Hr 32 H, [place] [address] H, Triglycerides 80, Vitamin B12 717, Procalcitonin 0.51 H, TSH 1.040 05/21/25 17:30: Serum Folate 5.60 05/21/25 17:40: Urine Color Yellow, Urine Clarity Cloudy, Urine pH 5.0, Ur Specific [place] 1.020, Urine Protein 100 H, Urine Glucose (UA) Normal, Urine Ketones Negative, Urine Occult Blood 150 H, Urine Nitrite Negative, Urine Bilirubin Negative, Urine Urobilinogen Normal, Ur Leukocyte Esterase 500 H, Urine RBC 10-25 SEEN, Urine WBC >100 SEEN, Ur Squamous Epith Cells 5-10 SEEN, Urine Bacteria 2+, Urine Mucus 0 SEEN 05/22/25 03:00: WBC 23.5 H, RBC 3.52 L, Hgb 8.0 L, Hct 25.9 L, MCV 73.6 L D, MCH22.7 L, MCHC 30.9 L D, RDW Std Deviation 61.6 H, RDW Coeff of Federico 23.9 H, Plt Count 311, MPV 9.4, Immature Gran % (Auto) 0.900, Neut % (Auto) 92.0 H, Lymph % (Auto) 2.3 L, [place] % (Auto) 4.6, Eos % (Auto) 0.0, Baso % (Auto) 0.2, Absolute Neuts (auto) 21.6 H, Absolute Lymphs (auto) 0.53 L, Nucleated RBC % 1.5, Differential Comment SCANNED, Sodium 142, Potassium 4.1, Chloride 114 H, Carbon Dioxide 18.0 L, Anion Gap 10, BUN 54 H, Creatinine 2.23 H, Estim Creat Clear Calc 27.77 L, Est GFR (MDRD) Non-Af 24 L, BUN/Creatinine Ratio 24.2 H, Glucose 94, Calcium 7.4 L ABG Data ABG results: ABG 05/21/25 05/21/25 09:30 15:31 Specimen Type ART LJ Sample Site L Radial L Radial pH 7.46 H Bicarbonate Actual 16.4 L Total CO2 17 Base Excess -7 L O2 Saturation 97 O2 % 100.0 60.0 ABG pCO2 22.8 L ABG pO2 79 Kishan Test Positive VBG pH 7.41 VBG pO2 23 L VBG HCO3 20 L VBG Total CO2 21 L VBG O2 Sat (Calc) 42 L VBG Base Excess -4 L POC Mix VBG pCO2 Pt Tmp 32.4 L Respiration Rate 16 O2 Delivery Device NRB Adult Vent Vent Mode Not entered Tidal Volume 450.0 POC PEEP 5 Radiography Diagnostic Testing: Radiology Impression Chest X-Ray 05/21/25 09:20 IMPRESSION: Underexpanded lungs with superimposed airspace opacifications in both lung cox suggesting either pulmonary vascular congestion/CHF or a diffuse inflammatory process. Follow-up recommended to ensure complete resolution Reading Location: [id number] Echocardiogram 05/21/25 10:51 Interpretation Summary Normal LV size. Mild concentric left ventricular hypertrophy. Left ventricular systolic function is normal. The left ventricular ejection fraction is 60 %. Apical hypertrophic cardiomyopathy present. Contrast injection was performed. Ordering Physician: Dar Hunt Referring Physician: SABRINA ROCHA Performed By: Lana Rajput RCS Chest X-Ray 05/21/25 14:11 IMPRESSION: Bilateral pulmonary airspace disease is again seen, with some areas improved in some areas worsened since the prior study, overall of similar severity, however. No pleural effusion or pneumothorax is seen. Interval placement of nasogastric tube, seen coursing of the stomach, endotracheal tube, with tip proximally 1 cm above the iraida, and right jugular central venous catheter, with tip projecting over the distal SVC. The cardiomediastinal silhouette is stable, without evidence of cardiomegaly. Reading Location: [facility] Renal Ultrasound 05/21/25 14:49 IMPRESSION: No hydronephrosis. 4 mm nonobstructive calculus within the left kidney. 3.1 x 3.5 cm and 3.4 x 2.9 cm cysts within the right kidney and 1.9 x 1.6 cm cyst within the left kidney. Reading Location: [facility] Physical Exam Const Constitutional Narrative: Intubated, sedated and mechanically ventilated. No ventilator dyssynchrony. General Appearance: ill appearing and patient mechanically ventilated HEENT normocephalic and head/scalp atraumatic Mouth: endotracheal tube in place and OG tube in place Eyes PERRL, EOMs intact bilaterally and conjunctivae normal Neck supple General: trachea midline and CVC in place Chest inspection of chest normal Resp Auscultation: rales and diminished lung sounds Cardio S1 normal heart sound and S2 normal heart sound Rhythm: abnormal rhythm GI normal to inspection, nondistended, normoactive bowel sounds Extremity General Extremity: edema; Negative for clubbing Skin no rashes or lesions noted Neuro Neuro Narrative: Contracted right-sided extremities. Sensorium / Orientation: sedated on vent Charges/Coding Procedures Hospitalists Procedures: 50132 Critical Care 1st Hr 05/22/25 1050 <Electronically signed by Julian Monsivais DO> Cosigner Signature (if applicable): CC: ~ Signed [facility] Work Phone: 1(461) 891-345708-26-2025 Radiology Diagnostic study [facility]08-25-2025 Consult note Author Julian Monsivais [facility] Note Date/Time May 21, 2025 8: 17pm [facility] Medical Records Department [address] [place] [address] Consultation - [place] Department Operator 05/21/25 1334 MR#: [id number] Acct: [id number] Name: NANCY DELACRUZ Rep #:[id number] : 1965 59 From: Julian Monsivais DO PCP: Dr. Sabrina Duran DO Status:ADM IN Location: ICU ICU03-1 Assessment & Plan Assessment/Plan (1) Acute hypoxemic respiratory failure: (2) Elevated troponin: (3) Acute on chronic kidney failure: (4) New onset a-fib: (5) Shock: PLAN: Plan RECOMMENDATIONS: 1. Transfuse blood products in an attempt to establish a hemoglobin at or above7 g/dL. 2. Obtain follow-up ABG in 1 hour. 3. Continue assist-control mode of mechanical ventilation. Wean FiO2 and PEEP as tolerated. 4. Initiate vasopressor support, if needed, to maintain mean arterial pressure at or above 65 mmHg. 5. Continue PPI therapy as ordered. 6. Await gastroenterology evaluation. 7. Start empiric antimicrobials and obtain sputum and blood cultures. IMPRESSIONS: 1. Undifferentiated shock Most likely secondary to hemorrhagic etiology in the setting of acute blood lossanemia. However, the patient does have a normal ejection fraction on echocardiogram. Therefore I cannot definitively say that the infiltrates noted on chest x-ray are related to pulmonary edema in the setting of CHF. Therefore,given the patient's current clinical status, I am going to start her empiricallyon antimicrobials and obtain sputum and blood cultures. The patient is going jossue transfused packed red blood cells in an attempt to achieve a hemoglobin at orabove 7 g/dL. PPI therapy will be continued, pending gastroenterology evaluation. If the patient remains hemodynamically unstable, Levophed will be initiated. 2. Acute on chronic kidney disease Most likely secondary to #1. Continue supportive care, including vasopressor support, if indicated. Will obtain renal ultrasound. Avoid nephrotoxic medications. 3. Acute blood loss anemia Gastroenterology consultation is pending. Continue transfusion of blood products to achieve and maintain a hemoglobin at or above 7 g/dL. Continue PPI therapy as ordered. 4. Troponin elevation/atrial fibrillation Secondary to demand ischemia in the setting of #1. Echocardiogram revealed intact, normal systolic function. Given that the patient's rate is currently controlled, we will plan to continue supportive care. 5. History of CVA with residual deficits/hypertension/hyperlipidemia Complicates care, management, recovery and prognosis. Continue supportive measures as noted above. Continue to hold home antihypertensives. TIME: 38 minutes of critical care time, independent of procedures, was spent addressing the patient's undifferentiated shock, acute on chronic kidney disease, acute blood loss anemia, review of all data and collaboration with the care team. HPI Consult Data Date of Consult: 05/21/25 HPI Narrative Reason for Consultation: Acute blood loss anemia, shock HPI Narrative: The patient is a 59-year-old female, with a history as outlined below, who presented to the emergency department on May 21 with altered mental status and hypoxemia. The patient does have a prior history of CVA with residual right-sided deficits and dysarthric speech, making it difficulty to ascertain any additional history. The patient also appears to have a history of hypertension and hyperlipidemia, but is not currently on any form of systemic anticoagulation at her baseline. On presentation to the emergency department, the patient was documented to be afebrile but was mildly tachycardic and tachypneic. The patient had borderline hemodynamics at presentation and was hypoxemic requiring a nonrebreather mask. Laboratory evaluation was notable for a white blood cell count of 15,000 with a hemoglobin of 3.6 g/dL and platelet count of 426,000. Coagulation profile revealed an INR of 1.3. Chemistry profile was notable for a potassium of 5.8, bicarbonate of 15, anion gap of 21 and creatinine of 2.35. Lactate was elevatedat 6.7. Troponin was increased at 35. Chest x-ray was a poor quality with underexpanded lung cox and findings concerning for pulmonary vascular congestion. The patient did receive a small amount of IV fluid resuscitation and was ultimately ordered to receive transfusion of blood products. Gastroenterology was notified. The patient was transferred to the medical intensive care unit for further management. On arrival to the ICU, the patient was notably tachypneic and in distress from arespiratory standpoint. In addition, her hemodynamic status was quite tenuous. The patient was receiving packed red blood cells. In light of the patient's significant tachypnea and increased work of breathing in the setting of an aniongap metabolic acidosis, my concern was that the patient would be unable to compensate for her metabolic derangements. Therefore, following discussion withthe patient's family, the decision was made to proceed with intubation. In light of her tenuous hemodynamic status, a central venous catheter was placed. Order for Levophed was initiated. [facility] Medical History Hypertension CVA (cerebral vascular accident) Home Medications ?Medication ?Instructions ?Recorded ?Last Taken ?Type amlodipine 10 mg tablet 10 mg PO DAILY 05/21/2504/28 History carvedilol 3.125 mg tablet 3.125 mg PO BID 05/21/25 History hydralazine 100 mg tablet 100 mg PO TID 05/21/2505/20 History simvastatin 20 mg tablet 20 mg PO DAILY 05/21/2504/28 History Allergy/AdvReac Type Severity Reaction Status Date / Time No Known Allergies Allergy Verified 05/21/25 09:27 Family History unable to obtain Surgical History unable to obtain Social History Smoking Status: Never smoker ROS Review of Systems ROS Unobtainable: due to endotracheal tube Physical Exam Const Constitutional Narrative: The patient is now intubated and mechanically ventilated. General Appearance: ill appearing and patient mechanically ventilated HEENT normocephalic and head/scalp atraumatic Mouth: endotracheal tube in place and OG tube in place Eyes PERRL, EOMs intact bilaterally and conjunctivae normal Neck supple General: trachea midline Chest inspection of chest normal Resp Effort and Inspection: tachypneic and labored Auscultation: diminished lung sounds Cardio S1 normal heart sound and S2 normal heart sound Rate: tachycardic Rhythm: abnormal rhythm GI normal to inspection, nondistended, normoactive bowel sounds Extremity General Extremity: edema; Negative for clubbing Skin no rashes or lesions noted Neuro Neuro Narrative: Contracted right-sided extremities. Dysarthric speech. Lab / Micro Data 05/21/25 13:55 05/21/25 09:29 Labs: Laboratory Results - last 24 hr 05/21/25 09:29: WBC 14.7 H, RBC 2.23 L, Hgb 3.6 L*, Hct 14.4 L, MCV 64.6 L, MCH 16.1 L, MCHC 25.0 L, RDW Std Deviation 46.6 H, RDW Coeff of Federico 21.1 H, Plt Count 426, MPV 10.2, Immature Gran % (Auto) 0.900, Neut % (Auto) 88.4 H, Lymph %(Auto) 6.5 L, [place] % (Auto) 4.1, Eos % (Auto) 0.0, Baso % (Auto) 0.1, Absolute Neuts (auto) 13.0 H, Absolute Lymphs (auto) 0.95, Nucleated RBC % 1.0, Differential Comment SCANNED, Hypochromasia 3+, Anisocytosis 2+, Sodium 140, Potassium 5.8 H, Chloride 105, Carbon Dioxide 14.9 L, Anion Gap 21 H, BUN 56 H, Creatinine 2.35 H, Estim Creat Clear Calc 26.86 L, Est GFR (MDRD) Non-Af 23 L, BUN/Creatinine Ratio 23.8 H, Glucose 120 H, Lactic Acid 6.7 H*, Calcium 8.3, Total Bilirubin 1.05, AST 20, ALT 16, Alkaline Phosphatase 74, Troponin T High Sens 35 H, Total Protein 6.7, Albumin 3.3 L, Globulin 3.4, Albumin/Globulin Ratio 1.0 05/21/25 10:15: Ferritin 53, Blood Type A POSITIVE, Antibody Screen NEGATIVE, Crossmatch See Detail 05/21/25 11:45: Troponin T Hi Sens 2 Hr 35 H 05/21/25 11:55: PT 16.9 H, INR 1.3 ABG Data ABG results: ABG 05/21/25 09:30 Specimen Type ART Sample Site L Radial pH 7.46 H Bicarbonate Actual 16.4 L Total CO2 17 Base Excess -7 L O2 Saturation 97 O2 % 100.0 ABG pCO2 22.8 L ABG pO2 79 Kishan Test Positive O2 Delivery Device NRB Vent Mode Not entered Imaging Radiology Impression Chest X-Ray 05/21/25 09:20 IMPRESSION: Underexpanded lungs with superimposed airspace opacifications in both lung cox suggesting either pulmonary vascular congestion/CHF or a diffuse inflammatory process. Follow-up recommended to ensure complete resolution Reading Location: [id number] Echocardiogram 05/21/25 10:51 Interpretation Summary Normal LV size. Mild concentric left ventricular hypertrophy. Left ventricular systolic function is normal. The left ventricular ejection fraction is 60 %. Apical hypertrophic cardiomyopathy present. Contrast injection was performed. Ordering Physician: Dar Hunt Referring Physician: SABRINA ROCHA Performed By: Lana Rajput RCS Sepsis Attestation Sepsis Alert: Yes Sepsis Attestation: Agree w/Sepsis Date exam was performed: 05/21/25 Time exam was performed: 14:55 Possible Source of Sepsis: Pulmonary Sepsis Organ Dysfunction Criteria Present: SBP < 90 mmHg or MAP < 65 mmHg, AcuteRespiratory Failure (New need for BiPAP/CPAP or MV), Creatinine > 2.0 mg/dL and Lactic Acid > 2 mmol/L Fluid Resuscitation Fluid resuscitation indicated?: Yes Fluid Resuscitation ordered: Lesser volume fluid bolus ordered Amount of fluid ordered: 1,000 Reason for lesser fluid bolus:: Concern for fluid overload Sepsis Note Date exam was performed: 05/21/25 Time exam was performed: 14:56 Sepsis Attestation: Sepsis re-evaluation was performed Response to fluids: Vasopressors started Charges/Coding Procedures Hospitalists Procedures: 92867 Critical Care 1st Hr 05/21/252016 <Electronically signed by Julian Monsivais DO> Cosigner Signature (if applicable): CC: Dr. Sabrina Duran DO~ Signed [facility] Work Phone: 1(302) 214-289708-25-2025 Consult note Author Jeffery Mcrae [facility] Note Date/Time May 21, 2025 6: 30pm [facility] Medical Records Department [address] [place] [id number] Consultation - GI 05/21/25 1815 MR#: [id number] Acct: [id number] Name: NANCY DELACRUZ Rep #:[id number] : 1965 59 From: Jeffery Mcrae DO PCP: Dr. Sabrina Duran DO Status:ADM IN Location: ICU ICU03-1 HPI Consult Data Date of Consult: 05/21/25 HPI Narrative Reason for Consultation: Anemia HPI Narrative: 59 F who presents with change in mental status. All information was obtained from the chart due to patient's altered mental status and being intubated. She has a past medical history of CVA with dysarthria. She presented to the emergency room and was noted to be hypotensive. She was noted to have a hemoglobin of 3.6, lactic acid of 6.7. As per the patient's brother. No bleeding that he is aware of but there was concern that she was having menstrual blood in the toilet week or 2 ago. Patient a chest x-ray was concern for pulmonary vascular congestion so with the patient is lactic acid patient did not receive 30 cc/kg of IV fluid due to worsening heart failure. RAD/Chest 1 View (Portable) IMPRESSION: Underexpanded lungs with superimposed airspace opacifications in both lung cox suggesting either pulmonary vascular congestion/CHF or a diffuse inflammatory process. Patient was noted to be in atrial fibrillation with RVR. Patient requires assistance and get has around a clock care at home by family members. Patient has right- sided weakness due to prior history of stroke. Patient was subsequently admitted to the intensive care unit and patient was seen by critical care medicine and subsequently was intubated and had a central venous catheter placed. Her BNP was noted to be 16,000 CHO/Echo Complete W/ Contrast Interpretation Summary Normal LV size. Mild concentric left ventricular hypertrophy. Left ventricular systolic function is normal. The left ventricular ejection fraction is 60 %. Apical hypertrophic cardiomyopathy present. Contrast injection was performed. [facility] Medical History Hypertension CVA (cerebral vascular accident) Home Medications ?Medication ?Instructions ?Recorded ?Last Taken ?Type amlodipine 10 mg tablet 10 mg PO DAILY 05/21/2504/28 History carvedilol 3.125 mg tablet 3.125 mg PO BID 05/21/25 History hydralazine 100 mg tablet 100 mg PO TID 05/21/2505/20 History simvastatin 20 mg tablet 20 mg PO DAILY 05/21/2504/28 History Allergy/AdvReac Type Severity Reaction Status Date / Time No Known Allergies Allergy Verified 05/21/25 09:27 Family History unable to obtain Surgical History unable to obtain Social History Smoking Status: Never smoker ROS Constitutional Constitutional: Denies fatigue, fever(s), poor appetite, weight gain or weight loss Gastrointestinal Gastrointestinal: Denies belching, bloating, change in bowel habits, change in stool character, chewing difficulty, coffee ground emesis, constipation, cramping, diarrhea, dyspepsia, dysphagia, early satiety, excessive flatus, fecalincontinence, heartburn, hematemesis, hematochezia, hemorrhoids, loose stools, melena, nausea, odynophagia, rectal bleeding, tenesmus, vomiting or weight changes Physical Exam Const alert HEENT normocephalic and head/scalp atraumatic Neck no lymphadenopathy Resp Resp Narrative: Bibasilar crackles Cardio Cardio Narrative: Irregularly irregular GI normal to inspection, nondistended, normoactive bowel sounds, soft to palpation,non-tender and non-distended Extremity Extremity Narrative: Bilateral lower extremity edema 2+ edema. Neuro Sensorium / Orientation: awake, oriented to person and oriented to place; Negative for oriented to time Lab / Micro Data 05/21/25 13:55 05/21/25 09:29 Labs: Laboratory Results - last 24 hr 05/21/25 09:29: WBC 14.7 H, RBC 2.23 L, Hgb 3.6 L*, Hct 14.4 L, MCV 64.6 L, MCH 16.1 L, MCHC 25.0 L, RDW Std Deviation 46.6 H, RDW Coeff of Federico 21.1 H, Plt Count 426, MPV 10.2, Immature Gran % (Auto) 0.900, Neut % (Auto) 88.4 H, Lymph %(Auto) 6.5 L, [place] % (Auto) 4.1, Eos % (Auto) 0.0, Baso % (Auto) 0.1, Absolute Neuts (auto) 13.0 H, Absolute Lymphs (auto) 0.95, Nucleated RBC % 1.0, Differential Comment SCANNED, Hypochromasia 3+, Anisocytosis 2+, Sodium 140, Potassium 5.8 H, Chloride 105, Carbon Dioxide 14.9 L, Anion Gap 21 H, BUN 56 H, Creatinine 2.35 H, Estim Creat Clear Calc 26.86 L, Est GFR (MDRD) Non-Af 23 L, BUN/Creatinine Ratio 23.8 H, Glucose 120 H, Lactic Acid 6.7 H*, Calcium 8.3, Total Bilirubin 1.05, AST 20, ALT 16, Alkaline Phosphatase 74, Troponin T High Sens 35 H, Total Protein 6.7, Albumin 3.3 L, Globulin 3.4, Albumin/Globulin Ratio 1.0 05/21/25 10:15: Ferritin 53, Blood Type A POSITIVE, Antibody Screen NEGATIVE, Crossmatch See Detail 05/21/25 11:45: Troponin T Hi Sens 2 Hr 35 H 05/21/25 11:55: PT 16.9 H, INR 1.3 05/21/25 13:55: Hgb 4.4 L*, Hct 16.0 L, Lactic Acid 2.9 H*, Total Creatine Kinase 97, Troponin T Hi Sens 4Hr 32 H, [place] [address] H, Procalcitonin 0.51 H ABG Data ABG results: ABG 05/21/25 05/21/25 09:30 15:31 Specimen Type ART LJ Sample Site L Radial L Radial pH 7.46 H Bicarbonate Actual 16.4 L Total CO2 17 Base Excess -7 L O2 Saturation 97 O2 % 100.0 60.0 ABG pCO2 22.8 L ABG pO2 79 Kishan Test Positive VBG pH 7.41 VBG pO2 23 L VBG HCO3 20 L VBG Total CO2 21 L VBG O2 Sat (Calc) 42 L VBG Base Excess -4 L POC Mix VBG pCO2 Pt Tmp 32.4 L Respiration Rate 16 O2 Delivery Device NRB Adult Vent Vent Mode Not entered Tidal Volume 450.0 POC PEEP 5 Imaging Radiology Impression Chest X-Ray 05/21/25 09:20 IMPRESSION: Underexpanded lungs with superimposed airspace opacifications in both lung cox suggesting either pulmonary vascular congestion/CHF or a diffuse inflammatory process. Follow-up recommended to ensure complete resolution Reading Location: [id number] Echocardiogram 05/21/25 10:51 Interpretation Summary Normal LV size. Mild concentric left ventricular hypertrophy. Left ventricular systolic function is normal. The left ventricular ejection fraction is 60 %. Apical hypertrophic cardiomyopathy present. Contrast injection was performed. Ordering Physician: Dar Hunt Referring Physician: SABRINA ROCHA Performed By: Lana Rajput RCS Chest X-Ray 05/21/25 14:11 IMPRESSION: Bilateral pulmonary airspace disease is again seen, with some areas improved in some areas worsened since the prior study, overall of similar severity, however. No pleural effusion or pneumothorax is seen. Interval placement of nasogastric tube, seen coursing of the stomach, endotracheal tube, with tip proximally 1 cm above the iraida, and right jugular central venous catheter, with tip projecting over the distal SVC. The cardiomediastinal silhouette is stable, without evidence of cardiomegaly. Reading Location: [place] [address] Renal Ultrasound 05/21/25 14:49 IMPRESSION: No hydronephrosis. 4 mm nonobstructive calculus within the left kidney. 3.1 x 3.5 cm and 3.4 x 2.9 cm cysts within the right kidney and 1.9 x 1.6 cm cyst within the left kidney. Reading Location: [facility] Assessment & Plan Assessment/Plan (1) (HFpEF) heart failure with preserved ejection fraction: (2) Acute blood loss anemia: (3) Atrial fibrillation with RVR: (4) Acute hypoxemic respiratory failure: PLAN: 59-year-old male with Altered Mental Status , severe anemia, respiratory failure, and new-onset AFib with RVR. * Respiratory Distress/Failure: * S/P intubation for respiratory failure likely secondary to cardiogenic pulmonary edema caused by the combination of severe anemia and AFib with RVR. Her echo did show ejection fraction of 60%. The increased myocardial oxygen demand from the rapid heart rate, combined with the reduced oxygen- carrying capacity from the severe anemia, has likely precipitated this event. * Pneumonia, CHF and sepsis are also on the differential for respiratory distress and AMS as her white blood cell count is 14.7. * Altered Mental Status (AMS): * Likely multifactorial, including cerebral hypoperfusion due to severe anemia, hypotension, and rapid heart rate. * Hypoxia, electrolyte abnormalities, and possible infectious processes must be ruled out. * Severe Anemia: * Etiology is unclear without a full history. Possible causes include acute blood loss , anemia of chronic disease, or nutritional deficiency. * The severe anemia has worsened the patient's condition by decreasing oxygen delivery to vital organs, including the brain and heart. * New-Onset Atrial Fibrillation with RVR: * The patient is hemodynamically unstable as a result of the AFib with RVR. The fast, irregular rhythm decreases cardiac output, contributing to shock and multiorgan dysfunction. * Possible precipitants include anemia, infection, myocardial infarction, and stress cardiomyopathy.? Plan: Neurologic: * Patient is intubated and sedated Cardiovascular: * Consult pulmonary critical care and cardiology:? for management of new-onset AFib.? Hematology: * Transfusion:?Transfuse 2 units of packed red blood cells (PRBC) urgently due to severe symptomatic anemia (Hb < 7 g/dL). * Anemia Workup:?Initiate workup for the cause of severe anemia. * Labs:?Ferritin, TIBC, vitamin B12, folate. * Patient will undergo upper endoscopy tomorrow * Monitor:?Follow daily CBCs to monitor response to transfusion.? Respiratory: * Ventilator Management:?As per pulmonary critical care Charges/Coding Visit Charges Inpatient E&M: 27978 Init Hosp L3 05/21/25 1830 <Electronically signed by Jeffery Mcrae DO> Cosigner Signature (if applicable): CC: Dr. Sabrina Duran DO~ Signed [facility] Work Phone: 1(644) 482-359508-25-2025 History and physical note Author Matt Acevedo [facility] Note Date/Time May 21, 2025 4: 09pm [facility] Medical Records Department [address] [place] [address] H&P Exam - Hospitalist 05/21/25 1526 MR#: [id number] Acct: [id number] Name: NANCY DELACRUZ Rep #:[id number] : 1965 59 From: Matt Acevedo DO PCP: Dr. Sabrina Duran DO Status:ADM IN Location: ICU ICU03-1 HPI - General General Date of Admission: 05/21/25 Date of Service: 05/21/25 Chief Complaint: altered level of consciousness. HPI Narrative NANCY DELACRUZ, is a 59 F who presents with change in mental status. This lam[place] 59-year-old female with history of stroke presents with confusion. She presented to the emergency room and was noted to be hypotensive. She was noted to have a hemoglobin of 3.6, lactic acid of 6.7. Patient is a poor historian atthis time so history is obtained through the emergency room physician as well asthe patient's brother. No bleeding that he is aware of but there was concern that she was having menstrual blood in the toilet week or 2 ago. Patient a chest x-ray was concern for pulmonary vascular congestion so with the patient islactic acid patient did not receive 30 cc/kg of IV fluid due to worsening heart failure. Patient was noted to be in atrial fibrillation with RVR. Patient requires assistance and get has around a clock care at home by family members. Patient has right-sided weakness due to prior history of stroke. Patient was subsequently admitted to the intensive care unit and patient was seen by critical care medicine and subsequently was intubated and had a central venous catheter placed. [facility] Medical History Hypertension CVA (cerebral vascular accident) Home Medications ?Medication ?Instructions ?Recorded ?Last Taken ?Type amlodipine 10 mg tablet 10 mg PO DAILY 05/21/2504/28 History carvedilol 3.125 mg tablet 3.125 mg PO BID 05/21/25 History hydralazine 100 mg tablet 100 mg PO TID 05/21/2505/20 History simvastatin 20 mg tablet 20 mg PO DAILY 05/21/2504/28 History Allergy/AdvReac Type Severity Reaction Status Date / Time No Known Allergies Allergy Verified 05/21/25 09:27 Family History unable to obtain unable to obtain Surgical History unable to obtain unable to obtain Social History Smoking Status: Never smoker ROS ROS Narrative Unable to obtain due to confusion. Vital Signs Vital Signs Vital Signs: 05/21/25 09:20 05/21/25 09:23 05/21/25 09:29 Temperature 36.2 C L 36.3 C L Temperature Source Axillary Core Pulse Rate 101 H 120 H Respiratory Rate 34 H 41 H Respiratory Effort Respiratory Pattern Blood Pressure 144/121 H 96/70 Blood Pressure Mean 128 78 Blood Pressure Source Blood Pressure Position Blood Pressure Location Pulse Ox 97 100 100 Oxygen Delivery Method Non-Rebreather Non-Rebreather Non-Rebreather Oxygen Flow Rate (L/min) 15 12 12 Fraction of Inspired Oxygen (FIO2) 05/21/25 09:33 05/21/25 09:34 05/21/25 10:23 Temperature 36.6 C Temperature Source Oral Pulse Rate 107 H Respiratory Rate 27 H Respiratory Effort Labored Respiratory Pattern Tachypnea Blood Pressure 92/63 98/62 Blood Pressure Mean 72 74 Blood Pressure Source Blood Pressure Position Blood Pressure Location Pulse Ox 90 Oxygen Delivery Method Non-Rebreather Oxygen Flow Rate (L/min) 12 Fraction of Inspired Oxygen (FIO2) 05/21/25 10:30 05/21/25 10:55 05/21/25 11:00 Temperature 36.6 C Temperature Source Core Pulse Rate 104 H 104 H 105 H Respiratory Rate 37 H 27 H 25 H Respiratory Effort Respiratory Pattern Blood Pressure 98/72 98/62 92/63 Blood Pressure Mean 80 74 72 Blood Pressure Source Blood Pressure Position Blood Pressure Location Pulse Ox 90 94 93 Oxygen Delivery Method Non-Rebreather Non-Rebreather Non-Rebreather Oxygen Flow Rate (L/min) 12 15 15 Fraction of Inspired Oxygen (FIO2) 05/21/25 11:27 05/21/25 11:30 05/21/25 11:35 Temperature 36.6 C 36.5 C L Temperature Source Core Pulse Rate 105 H 107 H 106 H Respiratory Rate 25 H 24 H 23 H Respiratory Effort Respiratory Pattern Blood Pressure 92/63 95/48 L 95/48 L Blood Pressure Mean 72 63 63 Blood Pressure Source Monitor Blood Pressure Position Semi-Fowlers Blood Pressure Location Left Arm Pulse Ox 93 94 95 Oxygen Delivery Method Non-Rebreather Non-Rebreather Oxygen Flow Rate (L/min) 15 15 Fraction of Inspired Oxygen (FIO2) 05/21/25 11:50 05/21/25 12:00 05/21/25 12:50 Temperature 36.6 C 36.7 C Temperature Source Core Core Pulse Rate 101 H 103 H 100 Respiratory Rate 34 H 37 H Respiratory Effort Respiratory Pattern Blood Pressure 104/61 93/58 L 86/56 L Blood Pressure Mean 75 69 66 Blood Pressure Source Monitor Monitor Blood Pressure Position Semi-Fowlers Semi-Fowlers Blood Pressure Location Left Arm Right Forearm Pulse Ox 95 95 95 Oxygen Delivery Method Non-Rebreather Non-Rebreather Non-Rebreather Oxygen Flow Rate (L/min) 15 15 Fraction of Inspired Oxygen (FIO2) 100 05/21/25 13:50 05/21/25 13:55 05/21/25 14:05 Temperature 36.7 C Temperature Source Core Pulse Rate 93 67 Respiratory Rate 30 H 24 H Respiratory Effort Respiratory Pattern Tachypnea Blood Pressure 98/59 L Blood Pressure Mean 72 Blood Pressure Source Monitor Blood Pressure Position Supine Blood Pressure Location Right Forearm Pulse Ox 93 100 Oxygen Delivery Method Ambu-Bag Oxygen Flow Rate (L/min) Fraction of Inspired Oxygen (FIO2) 100 100 60 05/21/25 14:50 05/21/25 15:00 05/21/25 15:05 Temperature 36.6 C 36.7 C 36.7 C Temperature Source Core Core Core Pulse Rate 80 80 78 Respiratory Rate 22 H 20 H 26 H Respiratory Effort Respiratory Pattern Blood Pressure 84/64 L 79/43 L 85/61 L Blood Pressure Mean 70 55 69 Blood Pressure Source Monitor Monitor Monitor Blood Pressure Position Semi-Fowlers Semi-Fowlers Semi-Fowlers Blood Pressure Location Right Forearm Right Forearm Right Forearm Pulse Ox 100 100 100 Oxygen Delivery Method Mechanical Ventilator Mechanical Ventilator Mechanical Ventilator Oxygen Flow Rate (L/min) Fraction of Inspired Oxygen (FIO2) 60 60 60 Weight Weight: 80.5 kg Body Mass Index (BMI) 29.5 Physical Exam Narrative Patient seen and examined prior to intubation Pocus: IVC was visualized and dilated nonclassical with respirations. B-lines noted posteriorly, laterally as well as anteriorly in the lung cox. Const alert HEENT normocephalic and head/scalp atraumatic Neck no lymphadenopathy Resp Resp Narrative: Bibasilar crackles Cardio Cardio Narrative: Irregularly irregular GI normal to inspection, nondistended, normoactive bowel sounds, soft to palpation,non-tender and non-distended Extremity Extremity Narrative: Bilateral lower extremity edema 2+ edema. Neuro Sensorium / Orientation: awake, oriented to person and oriented to place; Negative for oriented to time Results Lab / Micro Data Attestation: I reviewed the patient's lab results. 05/21/25 13:55 05/21/25 09:29 Labs: Laboratory Results - last 24 hr 05/21/25 09:29: WBC 14.7 H, RBC 2.23 L, Hgb 3.6 L*, Hct 14.4 L, MCV 64.6 L, MCH 16.1 L, MCHC 25.0 L, RDW Std Deviation 46.6 H, RDW Coeff of Federico 21.1 H, Plt Count 426, MPV 10.2, Immature Gran % (Auto) 0.900, Neut % (Auto) 88.4 H, Lymph %(Auto) 6.5 L, [place] % (Auto) 4.1, Eos % (Auto) 0.0, Baso % (Auto) 0.1, Absolute Neuts (auto) 13.0 H, Absolute Lymphs (auto) 0.95, Nucleated RBC % 1.0, Differential Comment SCANNED, Hypochromasia 3+, Anisocytosis 2+, Sodium 140, Potassium 5.8 H, Chloride 105, Carbon Dioxide 14.9 L, Anion Gap 21 H, BUN 56 H, Creatinine 2.35 H, Estim Creat Clear Calc 26.86 L, Est GFR (MDRD) Non-Af 23 L, BUN/Creatinine Ratio 23.8 H, Glucose 120 H, Lactic Acid 6.7 H*, Calcium 8.3, Total Bilirubin 1.05, AST 20, ALT 16, Alkaline Phosphatase 74, Troponin T High Sens 35 H, Total Protein 6.7, Albumin 3.3 L, Globulin 3.4, Albumin/Globulin Ratio 1.0 05/21/25 10:15: Ferritin 53, Blood Type A POSITIVE, Antibody Screen NEGATIVE, Crossmatch See Detail 05/21/25 11:45: Troponin T Hi Sens 2 Hr 35 H 05/21/25 11:55: PT 16.9 H, INR 1.3 05/21/25 13:55: Hgb 4.4 L*, Hct 16.0 L, Lactic Acid 2.9 H*, Troponin T Hi Sens 4Hr 32 H, [place] [address] H, Procalcitonin 0.51 H ABG Data ABG results: ABG 05/21/25 09:30 Specimen Type ART Sample Site L Radial pH 7.46 H Bicarbonate Actual 16.4 L Total CO2 17 Base Excess -7 L O2 Saturation 97 O2 % 100.0 ABG pCO2 22.8 L ABG pO2 79 Kishan Test Positive O2 Delivery Device NRB Vent Mode Not entered EKG Initial EKG: Attestation: I personally reviewed and interpreted this EKG as follows: Prior EKG tracings: available for review EKG Rhythm Intrepretation: Atrial Fibrillation Imaging Radiology Impression Chest X-Ray 05/21/25 09:20 IMPRESSION: Underexpanded lungs with superimposed airspace opacifications in both lung cox suggesting either pulmonary vascular congestion/CHF or a diffuse inflammatory process. Follow-up recommended to ensure complete resolution Reading Location: [id number] Echocardiogram 05/21/25 10:51 Interpretation Summary Normal LV size. Mild concentric left ventricular hypertrophy. Left ventricular systolic function is normal. The left ventricular ejection fraction is 60 %. Apical hypertrophic cardiomyopathy present. Contrast injection was performed. Ordering Physician: Dar Hunt Referring Physician: SABRINA ROCHA Performed By: Lana Rajput RCS Chest X-Ray 05/21/25 14:11 IMPRESSION: Bilateral pulmonary airspace disease is again seen, with some areas improved in some areas worsened since the prior study, overall of similar severity, however. No pleural effusion or pneumothorax is seen. Interval placement of nasogastric tube, seen coursing of the stomach, endotracheal tube, with tip proximally 1 cm above the iraida, and right jugular central venous catheter, with tip projecting over the distal SVC. The cardiomediastinal silhouette is stable, without evidence of cardiomegaly. Reading Location: [facility] Assessment & Plan Assessment/Plan (1) Shock: PLAN: Undifferentiated at this time. Concern for hemorrhagic plus minus septic shock. Within normal EF cardiogenic ruled out. Right IJ triple-lumen catheter placed. Patient started on norepinephrine. Not acandidate for 30 cc/kg of IVF given CHF. Follow up cultures. Follow-up urinalysis Started on empiric antibiotics (2) Acute hypoxemic respiratory failure: PLAN: CHF versus pneumonia Intubated due to concern for on pending airway collapse given her numerous severe medical issues that are coalescing at present. On empiric antibiotic Unable to diurese at this time given shock. (3) (HFpEF) heart failure with preserved ejection fraction: PLAN: Acute EF noted as normal. Grossly normal EF on POCUS exam. Cannot rule out high-output failure due to severe anemia. (4) Atrial fibrillation with RVR: PLAN: New diagnosis but unclear how new this processes. Unable to anticoagulate due to anemia. May be exacerbated due to the severity of her underlying illnesses. (5) Acute blood loss anemia: PLAN: Unclear how long the patient has been anemic. Currently her admission hemoglobin was 3.6. Ordered 4 units packed red blood cells. GI consult for evaluation. Check anemia studies (6) Elevated troponin: PLAN: Mild elevation due to atrial fibrillation, respiratory failure, anemia. Demand ischemia from above. No gross wall abnormality on echo PLAN: Plan History of stroke: Patient not on any antiplatelet or any anticoagulation medications. Does have right-sided hemiparesis Hypertension: Holding off on amlodipine, carvedilol and hydralazine given shock. VTE prophylaxis with SCDs CODE STATUS: Addressed with the patient and her family. Patient is full code. DW patient's brother at bedside. Charges/Coding Visit Charges Inpatient E&M: 60134 Init Hosp L3 05/21/25 1609 <Electronically signed by Matt Acevedo DO> Cosigner Signature (if applicable): CC: Dr. Matt Acevedo DO; Dr. Sabrina Duran DO~ Signed [facility] Work Phone: 1(696) 346-632208-25-2025 Radiology Diagnostic study [facility]08-25-2025 Consult note Author Estela Linares [facility] Note Date/Time May 21, 2025 3: 37pm [facility] Medical Records Department [address] [facility] [place] [address] Pharmacokinetic/Renal -Consult 05/21/25 0168 MR#: [id number] Acct: [id number] Name: NANCY DELACRUZ Rep #:[id number] : 1965 59 From: Estela Burroughs PCP: Dr. Sabrina Duran, DO Status:ADM IN Y Location: ICU ICU03-1 Consult Antibiotic Management Pharmacy has been consulted to manage selected antibiotic: Vancomycin Type of Intervention Type of Consult: New start Suspected Infection Suspected Infection: Pneumonia Prior Doses of Antibiotics Prior Doses of Antibiotics Received/Current Regimen: 05/21/25 @ 1524 Vancomycin 2000mg x1 Labs Labs: Sodium 140 mmol/L (133-145) 05/21/25 09:29 Potassium 5.8 mmol/L (3.3-5.1) H 05/21/25 09:29 Chloride 105 mmol/L (98-108) 05/21/25 09:29 Carbon Dioxide 14.9 mmol/L (21.0-32.0) L 05/21/25 09:29 Anion Gap 21 (5-15) H 05/21/25 09:29 BUN 56 mg/dL (4-19) H 05/21/25 09:29 Creatinine 2.35 mg/dL (0.70-1.20) H 05/21/25 09:29 Est GFR (MDRD) Non-Af 23 (>60) L 05/21/25 09:29 BUN/Creatinine Ratio 23.8 RATIO (10-20) H 05/21/25 09:29 Glucose 120 mg/dL (70-99) H 05/21/25 09:29 Dosing Weight Weight used for dosin kg Estimated Creatinine Clearance Estimated Creatinine Clearance: 26 Goal Trough Goal Trough: 15-20 mcg/mL Pharmacy Plan for Drug Dosing Pharmacy Plan for Drug Dosing: Vancomycin 1000mg every 24 hours Pharmacy Service will continue to monitor and adjust dosing as required. Follow-Up Labs Follow-Up Labs: Trough: Vancomycin Date/Time Labs Ordered Labs to be done on [date and time ordered]: 05/23/25 @ 1500 05/21/25 1537 <Electronically signed by Estela Linares> Date _ Etsela Jang Signature (if applicable): Date CC: ~ Signed [facility] Work Phone: [phone]) [phone] Radiology Diagnostic study [facility]2025 Evaluation note* Diagnosis Onset Date Resolution Status Admit Date (HFpEF) heart failure with preserved ejection fraction acute Aug2024 11:37am Acidosis, lactic acute April 282024 11:37am Acute blood loss anemia acute A ug2024 11:37am Acute hyperkalemia acute May 21, 2025 11:37am Acute hypoxemic respiratory failure acute May 21 11:37am Atrial fibrillation with RVR acute May 21, 2025 11:37am Atypical glandular cells of undetermined significance (BEST) on cervical Pa acute May 21 11:37am Dysphagia acute May 21 11:37am Elevated troponin acute May 21, 2025 11:37am Endometrial hyperplasia with out atypia, complex acute May 21 11:37am Endometrial thickening on ultrasound acute May 21 11:37am Hypernatremia acute April 11:37am Microcytic anemia acute May 21, 2025 11:37am Myocardial ischemia determin ed by electrocardiography acute May 21, 2025 11:37am New onset a-fib acute May 212024 11:37am Nonsustained ventricular tachycardia acute May 21 11:37am Postmenopausal bleeding acute A ug2024 11:37am Shock acute May 21 11:37am Signs and symptoms of anemia acute May 21, 2025 11:37am Symptomatic anemia acute May 21, 2025 11:37am Acute on chronic kidney failure 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 Sabrina Duran, DO Status:REG ER Location: ED HPI History of Present Illness Chief Complaint: Alt LOC Detail of Chief Complaint: Altered level conscious initially called in as a stroke team, this was can Informant: family Onset/Context/Timing Onset: Today (Last known at her baseline last evening.) Context: Sudden Onset Timing: Continuous Quality: Respiratory distress, tachycardia, nonverbal Location: Presents from home by EMS. Blood sugar was 155. Current Severity: Severe Maximum Severity: Severe Worsened by: Suspect patient is profoundly anemic Relieved by: Nothing Narrative Narrative: Patient is a 59-year-old female. 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 She requires assistance to navigate and eat. According to the family member she does not havea history of atrial fibrillation. There is no other history available. Paramedics states her pulse ox was 84% on nonrebreather. When she arrived her pulse ox was 90%. She is in obvious respiratory distress. Unable to obtain history. Prior similar symptoms: No PFSH PFSH Medical History Hypertension CVA (cerebral vascular accident) Home Medications ?Medication ?Instructions ?Recorded ?Last Taken ?Type amlodipine 10 mg tablet 10 mg PO DAILY 05/21/2504/28 History carvedilol 3.125 mg tablet 3.125 mg PO BID 05/21/25 History hydralazine 100 mg tablet 100 mg PO TID 05/21/2505/20 History simvastatin 20 mg tablet 20 mg PO DAILY 05/21/2504/28 History Allergy/AdvReac Type Severity Reaction Status Date / Time No Known Allergies Allergy Verified 05/21/25 09:27 Social History Smoking Status: Never smoker ROS ROS ED Review of Systems ROS Unobtainable: due to mental status EXAM Physical Exam Const Vital Signs: 05/21/25 09:20 05/21/25 09:23 05/21/25 09:29 Temperature 97.1 F L 97.4 F L Temperature Source Axillary Core Pulse Rate 101 H 120 H Respiratory Rate 34 H 41 H Respiratory Effort Respiratory Pattern Blood Pressure 144/121 H 96/70 Blood Pressure Mean 128 78 Pulse Ox 97 100 100 Oxygen Delivery Method Non-Rebreather Non-Rebreather Non-Rebreather Oxygen Flow Rate (L/min) 15 12 12 05/21/25 09:33 05/21/25 09:34 05/21/25 10:23 Temperature 97.9 F Temperature Source Oral Pulse Rate 107 H Respiratory Rate 27 H Respiratory Effort Labored Respiratory Pattern Tachypnea Blood Pressure 92/63 98/62 Blood Pressure Mean 72 74 Pulse Ox 90 Oxygen Delivery Method Non-Rebreather Oxygen Flow Rate (L/min) 12 05/21/25 10:30 05/21/25 10:55 Temperature 97.9 F Temperature Source Core Pulse Rate 104 H 104 H Respiratory Rate 37 H 27 H Respiratory Effort Respiratory Pattern Blood Pressure 98/72 98/62 Blood Pressure Mean 80 74 Pulse Ox 90 94 Oxygen Delivery Method Non-Rebreather Non-Rebreather Oxygen Flow Rate (L/min) 12 15 Positive well nourished, well developed and obese Constitutional Narrative: Patient is in obvious respiratory distress. She is very pale. General Appearance ED: well developed and pallor Nutritional Appearance: obese HEENT HEENT Narrative: On the nonrebreather Uday is no evidence of cyanosis. normocephalic and atraumatic Eyes PERRL and EOMs intact bilaterally General Eye ED: Yes pale conjunctiva; Negative for scleral icterus Neck full ROM, no lymphadenopathy, supple and No no JVD Neck Narrative: JVD at 60 degrees. Cardio no murmurs Cardio Narrative: Monitor appears to be irregular regular consistent with atrial fibrillation. Rate: tachycardic Rhythm: abnormal rhythm GI non-tender, non-distended and no masses Extremity Extremity Narrative: Patient has edema of her lower extremities. For member states she has been sitting a lot. Family ember informing that she lies flat in her bed. There is no respiratory distress i.e. orthopnea or and she has not had any PND. Neuro No oriented x3 Neuro Narrative: Patient's mental status is depressed. She makes nonverbal sounds to noxious stimuli. She withdraws on the left side. She has contracture on the right due to prior stroke. She opens her eyes to verbal. Sensorium / Orientation: Negative for alert Gait (Neuro): Negative for normal gait Psych Psych Narrative: Unable to determine Skin Skin Narrative: There is no erythema to creases of the palm. Her lips appear pale as well. General Skin Exam: pallor MDM MDM MDM Narrative Medical decision making narrative: Patient respiratory distress with A-fib but no history of apnea to rule out cardiac ischemia, CHF, pneumonia, suspect she is anemic and profoundly anemic. Will obtain appropriate baseline blood work. H&H assess white count as well as hemoglobin. Comprehensive metabolic panel assess for any endorgan dysfunction. Lactate because of concern for poor perfusion. Lab Data Attestation: I reviewed the patient's lab results. Lab results narrative: CBC is remarkable white count of 14.7 with H&H of 3.6 and 14.4 with an MCV of 64.6. Neda of this year her hemoglobin was 7.6. In December of last year hemoglobin was greater than 13. She had normal indices last year she was microcytic last hemoglobin assessed December 2024. Troponins elevated at 35. Competence of metabolic panel reveals a BUN of 56 with a creatinine of 23.5 witha BUN to creatinine ratio approximate 24-1. This is worse than baseline. Glucose is slightly elevated 120. CO2 is 14.9 with an anion gap of 21. Labs: Laboratory Results - last 24 hr 05/21/25 05/21/25 09:29 10:15 WBC 14.7 H RBC 2.23 L Hgb 3.6 L* Hct 14.4 L MCV 64.6 L MCH 16.1 L MCHC 25.0 L RDW Std Deviation 46.6 H RDW Coeff of Federico 21.1 H Plt Count 426 MPV 10.2 Immature Gran % (Auto) 0.900 Neut % (Auto) 88.4 H Lymph % (Auto) 6.5 L [place] % (Auto) 4.1 Eos % (Auto) 0.0 Baso % (Auto) 0.1 Absolute Neuts (auto) 13.0 H Absolute Lymphs (auto) 0.95 Nucleated RBC % 1.0 Differential Comment SCANNED Hypochromasia 3+ Anisocytosis 2+ Sodium 140 Potassium 5.8 H Chloride 105 Carbon Dioxide 14.9 L Anion Gap 21 H BUN 56 H Creatinine 2.35 H Estim Creat Clear Calc 26.86 L Est GFR (MDRD) Non-Af 23 L BUN/Creatinine Ratio 23.8 H Glucose 120 H Lactic Acid 6.7 H* Calcium 8.3 Total Bilirubin 1.05 AST 20 ALT 16 Alkaline Phosphatase 74 Troponin T High Sens 35 H Total Protein 6.7 Albumin 3.3 L Globulin 3.4 Albumin/Globulin Ratio 1.0 Blood Type A POSITIVE Antibody Screen NEGATIVE Crossmatch See Detail Lactate is elevated 6.7. Patient at this time has undifferentiated shock. Based on the medication list 1 would not expect any of the meds she is presentlyon causing the lactic acidosis. This is probably due to hypoxia. ABG Data Attestation: I personally reviewed and interpreted this ABG as follows: Interpretation: ABG reveals a alkalemia with a pCO2 of 22.8, pO2 of 79.4 on nonrebreather mask, bicarb of 16.4 with a base excess of -7.4. Saturation is 96.7%. This is a mixed acid-base picture. This reveals a metabolic acidosis as well as respiratory alkalosis and increased AA gradient. ABG results: ABG 05/21/25 09:30 Specimen Type ART Sample Site L Radial pH 7.46 H Bicarbonate Actual 16.4 L Total CO2 17 Base Excess -7 L O2 Saturation 97 O2 % 100.0 ABG pCO2 22.8 L ABG pO2 79 Kishan Test Positive O2 Delivery Device NRB Vent Mode Not entered Radiography Chest X-Ray - ED: 1 View and Read by ED Physician (Suboptimal single view film. This very volume is limited. Patient has fluffy infiltrates bilaterally which may represent CHF. This would not be unexpected since patient probably has high- output failure due to her anemia and A-fib with RVR.) Diagnostic Testing: Clinical Impression(s) from Imaging Studies Chest X-Ray 05/21/25 09:20 IMPRESSION: Underexpanded lungs with superimposed airspace opacifications in both lung cox suggesting either pulmonary vascular congestion/CHF or a diffuse inflammatory process. Follow-up recommended to ensure complete resolution Reading Location: [facility] EKG Initial EKG: Attestation: I personally reviewed and interpreted this EKG as follows: Interpretation: Atrial Fibrillation (Rate is 104. QRS duration 74 ms. QTduration 3 and 26 ms. [place] is normal. There is no ossific changes noted which may be due to ischemia versus artifact. Most likely this represents ischemia.) Prior: Changed Management Discussion w/another healthcare provider: Hospitalist (Case discussed with Dr. Matt Acevedo. Full admit ICU.) Treatment and Re-Evaluation Narrative: In light of patient's H&H and indices iron studies were obtained prior to transfusion. 4 units of blood was ordered. Repeat blood pressure at 0934 was noted to be 92/63. When I became aware of this fluid bolus was ordered. Since there is concern she may be in heart failure she received only a 500 cc bolus. In light of the chest x-ray read findings bolus was stopped after 300 cc. Patient will require Lasix after each unit of blood. She also needs a stat echo. The secondary was asked to page hospitalist for admission. Critical Care Time Critical Care Time: Yes Critical care time (excluding procedures): 30-74 minutes (32), Including time spent: (History, physical, documentation, independent or potation of laboratory results, images, treatment for undifferentiated shock, DNR discussion), Discussing w/Patient &/or Family/Tax Commissioner, Discussing w/Consultants and Arranging Admission or Transfer Discharge Plan Dx/Rx/DC Orders Clinical Impression: Shock, Signs and symptoms of anemia, Symptomatic anemia, New onset a-fib, Acidosis, lactic, Acute hyperkalemia, Microcytic anemia, Acute on chronic kidneyfailure, Elevated troponin, Myocardial ischemia determined by electrocardiography, Acute hypoxemic respiratory failure Disposition Disposition: Acute Care Hospital [facility] What to do if you have Problems For any increased pain, shortness of breath, bleeding, nausea or vomiting, chestpain, or any unexpected problems, contact your Primary Care Provider. Call [facility] ([phone]) or report to the closest Emergency Room. Call 911 if necessary. 05/21/25 1111 <Electronically signed by Dar Hunt MD> Cosigner Signature (if applicable): CC: Dr. Sabrina Duran, DO ~ Signed [facility] Work Phone: [phone]) [phone] Discharge summary [facility] Medical Records Department [address] [place] [address] Emergency Department Summary 05/21/25 MR#: [id number] Acct: [id number] Name: NANCY DELACRUZ Rep #:[id number] : 1965 59 From: Dar Hunt MD PCP: Dr. Sabrina Duran, DO Status:REG ER Location: ED HPI History of Present Illness Chief Complaint: Alt LOC Detail of Chief Complaint: Altered level conscious initially called in as a stroke team, this was canc Informant: family Onset/Context/Timing Onset: Today (Last known at her baseline last evening.) Context: Sudden Onset Timing: Continuous Quality: Respiratory distress, tachycardia, nonverbal Location: Presents from home by EMS. Blood sugar was 155. Current Severity: Severe Maximum Severity: Severe Worsened by: Suspect patient is profoundly anemic Relieved by: Nothing Narrative Narrative: Patient is a 59-year-old female. 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 She requires assistance to navigate and eat. According to the family member she does not havea history of atrial fibrillation. There is no other history available. Paramedics states her pulse ox was 84% on nonrebreather. When she arrived her pulse ox was 90%. Sheis in obvious respiratory distress. Unable to obtain history. Prior similar symptoms: No PFSH PFSH Medical History Hypertension CVA (cerebral vascular accident) Home Medications ?Medication ?Instructions ?Recorded ?Last Taken ?Type amlodipine 10 mg tablet 10 mg PO DAILY 05/21/2504/28 History carvedilol 3.125 mg tablet 3.125 mg PO BID 05/21/25 History hydralazine 100 mg tablet 100 mg PO TID 05/21/2505/20 History simvastatin 20 mg tablet 20 mg PO DAILY 05/21/2504/28 History Allergy/AdvReac Type Severity Reaction Status Date / Time No Known Allergies Allergy Verified 05/21/25 09:27 Social History Smoking Status: Never smoker ROS ROS ED Review of Systems ROS Unobtainable: due to mental status EXAM Physical Exam Const Vital Signs: 05/21/25 09:20 05/21/25 09:23 05/21/25 09:29 Temperature 97.1 F L 97.4 F L Temperature Source Axillary Core Pulse Rate 101 H 120 H Respiratory Rate 34 H 41 H Respiratory Effort Respiratory Pattern Blood Pressure 144/121 H 96/70 Blood Pressure Mean 128 78 Pulse Ox 97 100 100 Oxygen Delivery Method Non-Rebreather Non-Rebreather Non-Rebreather Oxygen Flow Rate (L/min) 15 12 12 05/21/25 09:33 05/21/25 09:34 05/21/25 10:23 Temperature 97.9 F Temperature Source Oral Pulse Rate 107 H Respiratory Rate 27 H Respiratory Effort Labored Respiratory Pattern Tachypnea Blood Pressure 92/63 98/62 Blood Pressure Mean 72 74 Pulse Ox 90 Oxygen Delivery Method Non-Rebreather Oxygen Flow Rate (L/min) 12 05/21/25 10:30 05/21/25 10:55 Temperature 97.9 F Temperature Source Core Pulse Rate 104 H 104 H Respiratory Rate 37 H 27 H Respiratory Effort Respiratory Pattern Blood Pressure 98/72 98/62 Blood Pressure Mean 80 74 Pulse Ox 90 94 Oxygen Delivery Method Non-Rebreather Non-Rebreather Oxygen Flow Rate (L/min) 12 15 Positive well nourished, well developed and obese Constitutional Narrative: Patient is in obvious respiratory distress. She is very pale. General Appearance ED: well developed and pallor Nutritional Appearance: obese HEENT HEENT Narrative: On the nonrebreather Uday is no evidence of cyanosis. normocephalic and atraumatic Eyes PERRL and EOMs intact bilaterally General Eye ED: Yes pale conjunctiva; Negative for scleral icterus Neck full ROM, no lymphadenopathy, supple and No no JVD Neck Narrative: JVD at 60 degrees. Cardio no murmurs Cardio Narrative: Monitor appears to be irregular regular consistent with atrial fibrillation. Rate: tachycardic Rhythm: abnormal rhythm GI non-tender, non-distended and no masses Extremity Extremity Narrative: Patient has edema of her lower extremities. For member states she has been sitting a lot. Family ember informing that she lies flat in her bed. There is no respiratory distress i.e. orthopnea or and she has not had any PND. Neuro No oriented x3 Neuro Narrative: Patient's mental status is depressed. She makes nonverbal sounds to noxious stimuli. She withdraws on the left side. She has contracture on the right due to prior stroke. She opens her eyes to verbal. Sensorium / Orientation: Negative for alert Gait (Neuro): Negative for normal gait Psych Psych Narrative: Unable to determine Skin Skin Narrative: There is no erythema to creases of the palm. Her lips appear pale as well. General Skin Exam: pallor MDM MDM MDM Narrative Medical decision making narrative: Patient respiratory distress with A-fib but no history of apnea to rule out cardiac ischemia, CHF, pneumonia, suspect she is anemic and profoundly anemic. Will obtain appropriate baseline blood work.H&H assess white count as well as hemoglobin. Comprehensive metabolic panel assess for any endorgan dysfunction. Lactate because of concern for poor perfusion. Lab Data Attestation: I reviewed the patient's lab results. Lab results narrative: CBC is remarkable white count of 14.7 with H&H of 3.6 and 14.4 with an MCV of 64.6. December of this year her hemoglobin was 7.6. In December of last year hemoglobin was greater than 13. She had normalindices last year she was microcytic last hemoglobin assessed December 2024. Troponins elevated at 35. Competence of metabolic panel reveals a BUN of 56 with a creatinine of 23.5 witha BUN to creatinineratio approximate 24-1. This is worse than baseline. Glucose is slightly elevated 120. CO2 is 14.9 with an anion gap of 21. Labs: Laboratory Results - last 24 hr 05/21/25 05/21/25 09:29 10:15 WBC 14.7 H RBC 2.23 L Hgb 3.6 L* Hct 14.4 L MCV 64.6 L MCH 16.1 L MCHC 25.0 L RDW Std Deviation 46.6 H RDW Coeff of Federico 21.1 H Plt Count 426 MPV 10.2 Immature Gran % (Auto) 0.900 Neut % (Auto) 88.4 H Lymph % (Auto) 6.5 L [place] % (Auto) 4.1 Eos % (Auto) 0.0 Baso % (Auto) 0.1 Absolute Neuts (auto) 13.0 H Absolute Lymphs (auto) 0.95 Nucleated RBC % 1.0 Differential Comment SCANNED Hypochromasia 3+ Anisocytosis 2+ Sodium 140 Potassium 5.8 H Chloride 105 Carbon Dioxide 14.9 L Anion Gap 21 H BUN 56 H Creatinine 2.35 H Estim Creat Clear Calc 26.86 L Est GFR (MDRD) Non-Af 23 L BUN/Creatinine Ratio 23.8 H Glucose 120 H Lactic Acid 6.7 H* Calcium 8.3 Total Bilirubin 1.05 AST 20 ALT 16 Alkaline Phosphatase 74 Troponin T High Sens 35 H Total Protein 6.7 Albumin 3.3 L Globulin 3.4 Albumin/Globulin Ratio 1.0 Blood Type A POSITIVE Antibody Screen NEGATIVE Crossmatch See Detail Lactate is elevated 6.7. Patient at this time has undifferentiated shock. Based on the medication list 1 would not expect any of the meds she is presentlyon causing the lactic acidosis. This is probably due to hypoxia. ABG Data Attestation: I personally reviewed and interpreted this ABG as follows: Interpretation: ABG reveals a alkalemia with a pCO2 of 22.8, pO2 of 79.4 on nonrebreather mask, bicarb of 16.4 witha base excess of -7.4. Saturation is 96.7%. This is a mixed acid-base picture. This reveals a metabolic acidosis as well as respiratory alkalosis and increased AA gradient. ABG results: ABG 05/21/25 09:30 Specimen Type ART Sample Site L Radial pH 7.46 H Bicarbonate Actual 16.4 L Total CO2 17 Base Excess -7 L O2 Saturation 97 O2 % 100.0 ABG pCO2 22.8 L ABG pO2 79 Kishan Test Positive O2 Delivery Device NRB Vent Mode Not entered Radiography Chest X-Ray - ED: 1 View and Read by ED Physician (Suboptimal single view film. This very volume islimited. Patient has fluffy infiltrates bilaterally which may represent CHF. This would not be unexpected since patient probably has high- output failure due to her anemia and A-fib with RVR.) Diagnostic Testing: Clinical Impression(s) from Imaging Studies Chest X-Ray 05/21/25 09:20 IMPRESSION: Underexpanded lungs with superimposed airspace opacifications in both lung cox suggesting eitherpulmonary vascular congestion/CHF or a diffuse inflammatory process. Follow-up recommended to ensure complete resolution Reading Location: [facility] EKG Initial EKG: Attestation: I personally reviewed and interpreted this EKG as follows: Interpretation: Atrial Fibrillation (Rate is 104. QRS duration 74 ms. QTduration 3 and 26 ms. [place] is normal. There is no ossific changes noted which may be due to ischemia versus artifact. Most likely this represents ischemia.) Prior: Changed Management Discussion w/another healthcare provider: Hospitalist (Case discussed with Dr. Matt Acevedo. Full admit ICU.) Treatment and Re-Evaluation Narrative: In light of patient's H&H and indices iron studies were obtained prior to transfusion. 4 units of blood was ordered. Repeat blood pressure at 0934 was noted to be 92/63. When I became aware of this fluid bolus was ordered. Since there is concern she may be in heart failure she received only a 500 cc bolus. In light of the chest x-ray read findings bolus was stopped after 300 cc. Patient will require Lasix after each unit of blood. She also needs a stat echo. The secondary was asked to page hospitalist for admission. Critical Care Time Critical Care Time: Yes Critical care time (excluding procedures): 30-74 minutes (32), Including time spent: (History, physical, documentation, independent or potation of laboratory results, images, treatment for undifferentiated shock, DNR discussion), Discussing w/Patient &/or Family/Tax Commissioner, Discussing w/Consultants and Arranging Admission or Transfer Discharge Plan Dx/Rx/DC Orders Clinical Impression: Shock, Signs and symptoms of anemia, Symptomatic anemia, New onset a-fib, Acidosis, lactic, Acute hyperkalemia, Microcytic anemia, Acute on chronic kidneyfailure, Elevated troponin, Myocardial ischemia determined by electrocardiography, Acute hypoxemic respiratory failure Disposition Disposition: Acute Care Hospital [facility] What to do if you have Problems For any increased pain, shortness of breath, bleeding, nausea or vomiting, chestpain, or any unexpected problems, contact your Primary Care Provider. Call [facility] ([phone]) or report tothe closest Emergency Room. Call 911 if necessary. 05/21/25 1111 Cosigner Signature (if applicable): CC: Dr. Sabrina Duran, ~ Signed [facility]08-25-2025 Radiology Diagnostic study note [facility] Imaging Services [address] [place], [place] [address] Chest 1 View (Portable) MR#: [id number] Acct: [id number] Name: NANCY DELACRUZ Rep #: [id number] : 1965 F 59 From: Lauri Hannah MD PCP: Dr. Sabrina Duran, Status: REG ER Study:Chest 1 View (Portable) Date of Exam: 05/21/25 Exam# [id number] Ordering Dr: Emigdio Hunt MD PROCEDURE: CHEST 1 VIEW (PORTABLE) 05/21/2025 REASON FOR EXAM: RESPIRATORY DISTRESS/FAILURE TECHNIQUE: Frontal view of the chest. COMPARISON: None FINDINGS: Hardware: EKG leads overlie the chest Heart: The heart size is normal. Lungs: Lungs are underexpanded with chronic interstitial changes and superimposed opacifications inboth lung cox likely pulmonary vascular congestion/CHF though a diffuse inflammatory process could have a similar appearance. No demonstrated effusions. Bones: Degenerative bony changes noted in the thoracic spine and shoulders Other: RAD/Chest 1 View (Portable) IMPRESSION: Underexpanded lungs with superimposed airspace opacifications in both lung cox suggesting eitherpulmonary vascular congestion/CHF or a diffuse inflammatory process. Follow-up recommended to ensure complete resolution Reading Location: [id number] CC: Dr. Sabrina Duran DO; Dr. Dar Hunt MD ~ Mailroom Supervisor: Signed [facility] Author Dar Hunt [facility] Note Date/Time May 21, 2025 11 :11am [facility] Medical Records Department [address] [place] [address] Emergency Department Summary 05/21/25 MR#: [id number] Acct: [id number] Name: NANCY DELACRUZ Rep #:[id number] : 1965 59 From: Dar Hunt MD PCP: Dr. Sabrina Duran, Status:REG ER Location: ED HPI History of Present Illness Chief Complaint: Alt LOC Detail of Chief Complaint: Altered level conscious initially called in as a stroke team, this was canc Informant: family Onset/Context/Timing Onset: Today (Last known at her baseline last evening.) Context: Sudden Onset Timing: Continuous Quality: Respiratory distress, tachycardia, nonverbal Location: Presents from home by EMS. Blood sugar was 155. Current Severity: Severe Maximum Severity: Severe Worsened by: Suspect patient is profoundly anemic Relieved by: Nothing Narrative Narrative: Patient is a 59-year-old female. 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 She requires assistance to navigate and eat. According to the family member she does not havea history of atrial fibrillation. There is no other history available. Paramedics states her pulse ox was 84% on nonrebreather. When she arrived her pulse ox was 90%. She is in obvious respiratory distress. Unable to obtain history. Prior similar symptoms: No PFSH PFSH Medical History Hypertension CVA (cerebral vascular accident) Home Medications ?Medication ?Instructions ?Recorded ?Last Taken ?Type amlodipine 10 mg tablet 10 mg PO DAILY 05/21/2504/28 History carvedilol 3.125 mg tablet 3.125 mg PO BID 05/21/25 History hydralazine 100 mg tablet 100 mg PO TID 05/21/2505/20 History simvastatin 20 mg tablet 20 mg PO DAILY 05/21/2504/28 History Allergy/AdvReac Type Severity Reaction Status Date / Time No Known Allergies Allergy Verified 05/21/25 09:27 Social History Smoking Status: Never smoker ROS ROS ED Review of Systems ROS Unobtainable: due to mental status EXAM Physical Exam Const Vital Signs: 05/21/25 09:20 05/21/25 09:23 05/21/25 09:29 Temperature 97.1 F L 97.4 F L Temperature Source Axillary Core Pulse Rate 101 H 120 H Respiratory Rate 34 H 41 H Respiratory Effort Respiratory Pattern Blood Pressure 144/121 H 96/70 Blood Pressure Mean 128 78 Pulse Ox 97 100 100 Oxygen Delivery Method Non-Rebreather Non-Rebreather Non-Rebreather Oxygen Flow Rate (L/min) 15 12 12 05/21/25 09:33 05/21/25 09:34 05/21/25 10:23 Temperature 97.9 F Temperature Source Oral Pulse Rate 107 H Respiratory Rate 27 H Respiratory Effort Labored Respiratory Pattern Tachypnea Blood Pressure 92/63 98/62 Blood Pressure Mean 72 74 Pulse Ox 90 Oxygen Delivery Method Non-Rebreather Oxygen Flow Rate (L/min) 12 05/21/25 10:30 05/21/25 10:55 Temperature 97.9 F Temperature Source Core Pulse Rate 104 H 104 H Respiratory Rate 37 H 27 H Respiratory Effort Respiratory Pattern Blood Pressure 98/72 98/62 Blood Pressure Mean 80 74 Pulse Ox 90 94 Oxygen Delivery Method Non-Rebreather Non-Rebreather Oxygen Flow Rate (L/min) 12 15 Positive well nourished, well developed and obese Constitutional Narrative: Patient is in obvious respiratory distress. She is very pale. General Appearance ED: well developed and pallor Nutritional Appearance: obese HEENT HEENT Narrative: On the nonrebreather Uday is no evidence of cyanosis. normocephalic and atraumatic Eyes PERRL and EOMs intact bilaterally General Eye ED: Yes pale conjunctiva; Negative for scleral icterus Neck full ROM, no lymphadenopathy, supple and No no JVD Neck Narrative: JVD at 60 degrees. Cardio no murmurs Cardio Narrative: Monitor appears to be irregular regular consistent with atrial fibrillation. Rate: tachycardic Rhythm: abnormal rhythm GI non-tender, non-distended and no masses Extremity Extremity Narrative: Patient has edema of her lower extremities. For member states she has been sitting a lot. Family ember informing that she lies flat in her bed. There is no respiratory distress i.e. orthopnea or and she has not had any PND. Neuro No oriented x3 Neuro Narrative: Patient's mental status is depressed. She makes nonverbal sounds to noxious stimuli. She withdraws on the left side. She has contracture on the right due to prior stroke. She opens her eyes to verbal. Sensorium / Orientation: Negative for alert Gait (Neuro): Negative for normal gait Psych Psych Narrative: Unable to determine Skin Skin Narrative: There is no erythema to creases of the palm. Her lips appear pale as well. General Skin Exam: pallor MDM MDM MDM Narrative Medical decision making narrative: Patient respiratory distress with A-fib but no history of apnea to rule out cardiac ischemia, CHF, pneumonia, suspect she is anemic and profoundly anemic. Will obtain appropriate baseline blood work. H&H assess white count as well as hemoglobin. Comprehensive metabolic panel assess for any endorgan dysfunction. Lactate because of concern for poor perfusion. Lab Data Attestation: I reviewed the patient's lab results. Lab results narrative: CBC is remarkable white count of 14.7 with H&H of 3.6 and 14.4 with an MCV of 64.6. December of this year her hemoglobin was 7.6. In December of last year hemoglobin was greater than 13. She had normal indices last year she was microcytic last hemoglobin assessed December 2024. Troponins elevated at 35. Competence of metabolic panel reveals a BUN of 56 with a creatinine of 23.5 witha BUN to creatinine ratio approximate 24-1. This is worse than baseline. Glucose is slightly elevated 120. CO2 is 14.9 with an anion gap of 21. Labs: Laboratory Results - last 24 hr 05/21/25 05/21/25 09:29 10:15 WBC 14.7 H RBC 2.23 L Hgb 3.6 L* Hct 14.4 L MCV 64.6 L MCH 16.1 L MCHC 25.0 L RDW Std Deviation 46.6 H RDW Coeff of Federico 21.1 H Plt Count 426 MPV 10.2 Immature Gran % (Auto) 0.900 Neut % (Auto) 88.4 H Lymph % (Auto) 6.5 L [place] % (Auto) 4.1 Eos % (Auto) 0.0 Baso % (Auto) 0.1 Absolute Neuts (auto) 13.0 H Absolute Lymphs (auto) 0.95 Nucleated RBC % 1.0 Differential Comment SCANNED Hypochromasia 3+ Anisocytosis 2+ Sodium 140 Potassium 5.8 H Chloride 105 Carbon Dioxide 14.9 L Anion Gap 21 H BUN 56 H Creatinine 2.35 H Estim Creat Clear Calc 26.86 L Est GFR (MDRD) Non-Af 23 L BUN/Creatinine Ratio 23.8 H Glucose 120 H Lactic Acid 6.7 H* Calcium 8.3 Total Bilirubin 1.05 AST 20 ALT 16 Alkaline Phosphatase 74 Troponin T High Sens 35 H Total Protein 6.7 Albumin 3.3 L Globulin 3.4 Albumin/Globulin Ratio 1.0 Blood Type A POSITIVE Antibody Screen NEGATIVE Crossmatch See Detail Lactate is elevated 6.7. Patient at this time has undifferentiated shock. Based on the medication list 1 would not expect any of the meds she is presentlyon causing the lactic acidosis. This is probably due to hypoxia. ABG Data Attestation: I personally reviewed and interpreted this ABG as follows: Interpretation: ABG reveals a alkalemia with a pCO2 of 22.8, pO2 of 79.4 on nonrebreather mask, bicarb of 16.4 with a base excess of -7.4. Saturation is 96.7%. This is a mixed acid-base picture. This reveals a metabolic acidosis as well as respiratory alkalosis and increased AA gradient. ABG results: ABG 05/21/25 09:30 Specimen Type ART Sample Site L Radial pH 7.46 H Bicarbonate Actual 16.4 L Total CO2 17 Base Excess -7 L O2 Saturation 97 O2 % 100.0 ABG pCO2 22.8 L ABG pO2 79 Kishan Test Positive O2 Delivery Device NRB Vent Mode Not entered Radiography Chest X-Ray - ED: 1 View and Read by ED Physician (Suboptimal single view film. This very volume is limited. Patient has fluffy infiltrates bilaterally which may represent CHF. This would not be unexpected since patient probably has high- output failure due to her anemia and A-fib with RVR.) Diagnostic Testing: Clinical Impression(s) from Imaging Studies Chest X-Ray 05/21/25 09:20 IMPRESSION: Underexpanded lungs with superimposed airspace opacifications in both lung cox suggesting either pulmonary vascular congestion/CHF or a diffuse inflammatory process. Follow-up recommended to ensure complete resolution Reading Location: [facility] EKG Initial EKG: Attestation: I personally reviewed and interpreted this EKG as follows: Interpretation: Atrial Fibrillation (Rate is 104. QRS duration 74 ms. QTduration 3 and 26 ms. [place] is normal. There is no ossific changes noted which may be due to ischemia versus artifact. Most likely this represents ischemia.) Prior: Changed Management Discussion w/another healthcare provider: Hospitalist (Case discussed with Dr. Matt Acevedo. Full admit ICU.) Treatment and Re-Evaluation Narrative: In light of patient's H&H and indices iron studies were obtained prior to transfusion. 4 units of blood was ordered. Repeat blood pressure at 0934 was noted to be 92/63. When I became aware of this fluid bolus was ordered. Since there is concern she may be in heart failure she received only a 500 cc bolus. In light of the chest x-ray read findings bolus was stopped after 300 cc. Patient will require Lasix after each unit of blood. She also needs a stat echo. The secondary was asked to page hospitalist for admission. Critical Care Time Critical Care Time: Yes Critical care time (excluding procedures): 30-74 minutes (32), Including time spent: (History, physical, documentation, independent or potation of laboratory results, images, treatment for undifferentiated shock, DNR discussion), Discussing w/Patient &/or Family/Tax Commissioner, Discussing w/Consultants and Arranging Admission or Transfer Discharge Plan Dx/Rx/DC Orders Clinical Impression: Shock, Signs and symptoms of anemia, Symptomatic anemia, New onset a-fib, Acidosis, lactic, Acute hyperkalemia, Microcytic anemia, Acute on chronic kidneyfailure, Elevated troponin, Myocardial ischemia determined by electrocardiography, Acute hypoxemic respiratory failure Disposition Disposition: [facility] What to do if you have Problems For any increased pain, shortness of breath, bleeding, nausea or vomiting, chestpain, or any unexpected problems, contact your Primary Care Provider. Call [facility] ([phone]) or report to the closest Emergency Room. Call 911 if necessary. 05/21/25 1111 <Electronically signed by Dar Hunt MD> Cosigner Signature (if applicable): CC: Dr. Sabrina Duran, DO ~ Signed [facility] Work Phone: Evaluation noteNo assessment information available [facility] Work Phone: Evaluation note* Diagnosis Onset Date Resolution Status Admit Date Acidosis, lactic acute April 282024 11:37am Acute hyperkalemia acute May 21, 2025 11:37am Acute hypoxemic respiratory failure acute May 21 11:37am Elevated troponin acute May 21, 2025 11:37am Microcytic anemia acute May 21, 2025 11:37am Myocardial ischemia determin ed by electrocardiography acute May 21, 2025 11:37am New onset a-fib acute May 212024 11:37am Shock acute May 21, 2 025 11:37am Signs and symptoms of anemia acute May 21, 2025 11:37am Symptomatic anemia acute May 21, 2025 11:37am Acute on chronic kidney failure 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 May 21, 2025 11:37am [facility] Work Phone: Evaluation note* Diagnosis Acute hypoxemic respiratory failure (HCC)- Primary Acute pneumonia Acute hypoxemic respiratory failure (HCC) Acute pneumonia [facility] [place] [facility] Diagnosis Vaginal bleeding- Primary Other specified noninflammatory disorder of vagina Vaginal bleeding Other specified noninflammatory disorder of vagina Acute hypoxemic respiratory failure (HCC) Chronic atrial fibrillation (HCC) Atrial fibrillation Endometrial cancer (HCC) Malignant neoplasm of corpus uteri, except isthmus Acute hypoxemic respiratory failure (HCC) Atrial fibrillation (HCC) Atrial fibrillation Acute blood loss anemia Acute posthemorrhagic anemia CVA (cerebral vascular accident) (HCC) Unspecified cerebral artery occlusion with cerebral infarction [facility] [place] [facility] Diagnosis Acute hypoxemic respiratory failure (HCC)- Primary Acute pneumonia Endometrial cancer (HCC) Malignant neoplasm of corpus uteri, except isthmus [facility]No reason for referral information availableWOhio[facility] Work Phone: Reason for visit Narrative* Auth/Cert (Routine) Specialty Diagnoses / Procedures Referred By Svetlana collazo Referred To Contact Diagnoses Vaginal bleeding acute blood loss anemia Procedures N93.9 Navi oRberts MD [address] [place] [address] Phone: tel: fax: [facility] Card[facility] Progressive [facility] Unit PCU [address] [place] [phone] Phone: tel: Referral ID Status Reason Start Date Expiration Date Visits Re quested Visits Authorized [id number] 1 [facility] Chief Complaint and Reason for Visit Chief Complaint Admit Date SHOCK May 21, 2025 11 :37am Reason for Visit Admit Date Acidosis, lactic May 21, 2025 11 :37am Acute hyperkalemia May 21, 2025 11 :37am Acute hypoxemic respiratory failure Augu st 2024 11:37am Elevated troponin May 21, 2025 11 :37am Microcytic anemia May 21, 2025 11 :37am Myocardial ischemia determined by electr ocardiography May 21, 2025 11:37am New onset a-fib May 21, 2025 11 :37am Shock May 21, 2025 11 :37am Signs and symptoms of anemia April 11:37am Symptomatic anemia May 21, 2025 11 :37am Acute on chronic kidney failure April 282024 11:37am Chief Complaint Admit Date SHOCK May 21, 2025 11 :37am SHOCK May 21, 2025 2: 16pm SHOCK May 21, 2025 3: 26pm SHOCK May 21, 2025 6: 15pm SHOCK May 22, 2025 5: 32am SHOCK May 22, 2025 7: 52am SHOCK May 23, 2025 7: 37am SHOCK May 24, 2025 5: 19am SHOCK May 24, 2025 7: 35am SHOCK May 25, 2025 7: 20am SHOCK May 25, 2025 7: 32am SHOCK May 26, 2025 8: 17am SHOCK May 27, 2025 8: 20am SHOCK May 28, 2025 7:03am SHOCK May 28, 2025 2:09pm SHOCK May 29, 2025 1:36am SHOCK May 30, 2025 2:05pm SHOCK May 30, 2025 2:37pm SHOCK May 31, 2025 11:54am SHOCK June 01, 2025 6:40am SHOCK June 01, 2025 7:23pm SHOCK June 02, 2025 9:27am SHOCK June 02, 2025 12:05pm SHOCK June 02, 2025 12:31pm SHOCK June 03, 2025 11:03am SHOCK June 03, 2025 5:22pm SHOCK June 04, 2025 2:59am SHOCK June 04, 2025 1:33pm SHOCK June 05, 2025 9:07am SHOCK June 05, 2025 10:34am SHOCK June 05, 2025 5:01pm SHOCK June 06, 2025 9:17am SHOCK June 06, 2025 9:26am SHOCK June 06, 2025 5:04pm SHOCK June 07, 2025 10:16am SHOCK June 08, 2025 10:40am SHOCK June 09, 2025 11:28am SHOCK June 10, 2025 7:42am SHOCK June 11, 2025 11:48am Reason for Visit Admit Date (HFpEF) heart failure with preserved eje ction fraction May 21, 2025 11:37am Acidosis, lactic May 21, 2025 11 :37am Acute blood loss anemia May 21 11:37am Acute hyperkalemia May 21, 2025 11 :37am Acute hypoxemic respiratory failure Augu st 2024 11:37am Atrial fibrillation with RVR April 11:37am Atypical glandular cells of undetermined significance (BEST) on cervical Pa May 21, 2025 11:37am Dysphagia May 21, 2025 11 :37am Elevated troponin May 21, 2025 11 :37am Endometrial hyperplasia without atypia, complex May 21, 2025 11:37am Endometrial thickening on ultrasound Aug ust 2024 11:37am Hypernatremia May 21, 2025 11 :37am Microcytic anemia May 21, 2025 11 :37am Myocardial ischemia determined by electr ocardiography May 21, 2025 11:37am New onset a-fib May 21, 2025 11 :37am Nonsustained ventricular tachycardia Aug ust 2024 11:37am Postmenopausal bleeding May 21 11:37am Shock May 21, 2025 11 :37am Signs and symptoms of anemia April 11:37am Symptomatic anemia May 21, 2025 11 :37am Acute on chronic kidney failure April 282024 11:37am Advance Directives Advance Directive Response Recorded Date/ Time Do you have a Healthcare Power of Monitoring And Evaluation Advisor? Yes May 21, 2025 9:25am Name of Medical Power of Monitoring And Evaluation Advisor BROTHER May 21, 2025 9:25am Date Activated Date Inactivated Comments 06/12/2025 12:18 PM Date Activated Date Inactivated Comments 06/11/2025 11:53 PM 06/12/2025 1:32 AM Date Activated Date Inactivated Comments 06/12/2025 12:18 PM 06/29/2025 7:36 PM Date Activated Date Inactivated Comments 06/11/2025 11:53 PM 06/12/2025 1:32 AM Date Activated Date Inactivated Comments 06/12/2025 12:18 PM 06/29/2025 7:36 PM Summary Purpose Family History No Family History Records FoundNo Family History Records FoundNo Family History Records Found Additional Source Comments Care Teams (unrecognized sec tion and content) Team Status: Active Member Role Status Dates Dr. Sabrina Malys , DO Family Provider Active Dr. Sabrina Duran DO Primary Care Provider Active Team Status: Inactive Member Role Status Dates Dr. Sabrina uDran DO Primary Care Provide r, Attending Provider, Referring Provider Active Team Status: Inactive Member Role Status Dates Dr. Sabrina Duran DO Primary Care Provider, Attending P rowinstonder Active Team Status: Active Member Role/Relationship Status Dates Dr. Sabrina Duran DO Primary Care Provider Active Team Status: Inactive Member Role/Relationship Status Dates Dr. Sabrina Duran DO Primary Care Provider Active Start: January 22, 2025 End: January 22, 2025 Dr. Sabrina Duran DO Attending Provider Active St art: January 22, 2025 End: January 22, 2025 Team Status: Active Member Role/Relationship Status Dates Dr. Sabrina Duran DO Primary Care Provider Active Start: May 21, 2025 Dr. Dar Hunt MD Emergency Provider Active Sta rt: May 21, 2025 Dr. Matt Acevedo DO Admit Provider Active Star t: May 21, 2025 Dr. Matt Acevedo DO Attending Provider Active Start: May 21, 2025 Team Status: Active Member Role/Relationship Status Dates Dr. Sabrina Duran DO Primary Care Provider Active Start: May 21, 2025 Dr. Efren Arevalo MD Attending Provider Active S tart: May 21, 2025 Team Status: Inactive Member Role/Relationship Status Dates Dr. Sabrina Duran DO Primary Care Provider Active Start: May 21, 2025 End: June 11, 2025 Dr. Dar Hunt MD Emergency Provider Active Sta rt: May 21, 2025 End: June 11, 2025 Dr. Matt Acevedo DO Admit Provider Active Star t: May 21, 2025 End: June 11, 2025 Dr. Matt Acevedo DO Other Provider Active Star t: May 21, 2025 End: June 11, 2025 Dr. Ziggy Shelton MD Attending Provider Active Start: May 21, 2025 End: June 11, 2025 Dr. Ziggy Shelton MD Other Provider Active Sta rt: May 21, 2025 End: June 11, 2025 Dr. Jeffery Mcrae DO Other Provider Active St art: May 21, 2025 End: June 11, 2025 MARTINE Hernandez Other Provider Active Start : May 21, 2025 End: June 11, 2025 MARTINE Briceño Other Provider Active St art: May 21, 2025 End: June 11, 2025 ESPERANZA Fairbanks Other Provider Active Star t: May 21, 2025 End: June 11, 2025 Dr. Saul Brooks MD Other Provider Active Start: May 21, 2025 End: June 11, 2025 Dr. Ruel Mondragon MD Other Provider Active Start: May 21, 2025 End: June 11, 2025 Dr. Tyson Reece MD Other Provider Active Star t: May 21, 2025 End: June 11, 2025 Dr. Julian Monsivais DO Other Provider Active Start : May 21, 2025 End: June 11, 2025 Dr. Juvenal Hedrick MD Other Provider Active Sta rt: May 21, 2025 End: June 11, 2025 Dr. Kentrell Cottrell MD Other Provider Active St art: May 21, 2025 End: June 11, 2025 Dr. Jj Ragland MD Other Provider Active S tart: May 21, 2025 End: June 11, 2025 Dr. Kassy Shipman MD Other Provider Active Start: May 21, 2025 End: June 11, 2025 Dr. Sadi Andrade MD Other Provider Active Start : May 21, 2025 End: June 11, 2025 Dr. Frankie Conway MD Other Provider Active Start: May 21, 2025 End: June 11, 2025 Dr. Jimi Rdz MD Other Provider Active Start : May 21, 2025 End: June 11, 2025 Dr. Yeimi Allen MD Other Provider Active Star t: May 21, 2025 End: June 11, 2025 Dr. Nixon Kitchen MD Other Provider Active Sta rt: May 21, 2025 End: June 11, 2025 Dr. Starr Amaya MD Other Provider Active Sta rt: May 21, 2025 End: June 11, 2025 Dr. Brad Mclean MD Other Provider Active Star t: May 21, 2025 End: June 11, 2025 Dr. Pancho Rios MD Other Provider Active St art: May 21, 2025 End: June 11, 2025 Dr. Phi Watson MD Other Provider Active Star t: May 21, 2025 End: June 11, 2025 Dr. Errol Nicholas , Other Provider Active St art: May 21, 2025 End: June 11, 2025 Dr. Kira Silva MD Other Provider Active Start: May 21, 2025 End: June 11, 2025 Dr. Gabrielle Nickerson MD Other Provider Active St art: May 21, 2025 End: June 11, 2025 Dr. Mariano Glasgow DO Other Provider Active Start: May 21, 2025 End: June 11, 2025 Dr. Floyd Bernal MD Other Provider Active Star t: May 21, 2025 End: June 11, 2025 Dr. Mike Juarez MD Other Provider Active Sta rt: May 21, 2025 End: June 11, 2025 Dr. Eloisa More MD Other Provider Active Start: May 21, 2025 End: June 11, 2025 Dr. Puja Almeida MD Other Provider Active Start: May 21, 2025 End: June 11, 2025 Dr. Yanet Zhou MD Other Provider Active St art: May 21, 2025 End: June 11, 2025 Dr. Hiren Sanders MD Other Provider Active Start: May 21, 2025 End: June 11, 2025 Team Status: Active Member Role/Relationship Status Dates Dr. Sabrina Duran DO Primary Care Provider Active Start: May 21, 2025 Dr. Dar Hunt MD Emergency Provider Active Sta rt: May 21, 2025 Dr. Matt Acevedo DO Admit Provider Active Star t: May 21, 2025 Dr. Matt Acevedo DO Referring Provider Active Start: May 21, 2025 Dr. Matt Acevedo DO Other Provider Active Star t: May 21, 2025 Dr. Ziggy Shelton MD Other Provider Active Sta rt: May 21, 2025 Dr. Jeffery Mcrae , Other Provider Active St art: May 21, 2025 KELSI HernandezC Other Provider Active Start : May 21, 2025 MARTINE Briceño Other Provider Active St art: May 21, 2025 ESPERANZA [place] Other Provider Active Star t: May 21, 2025 Dr. Saul Brooks MD Other Provider Active Start: May 21, 2025 Dr. Ruel Mondragon MD Other Provider Active Start: May 21, 2025 Dr. Tyson Reece MD Other Provider Active Star t: May 21, 2025 Dr. Julian Monsivais DO Attending Provider Active S tart: May 21, 2025 Dr. Julian Monsivais DO Other Provider Active Start : May 21, 2025 Dr. Juvenal Hedrick MD Other Provider Active Sta rt: May 21, 2025 Dr. Kentrell Cottrell MD Other Provider Active St art: May 21, 2025 Dr. Jj Ragland MD Other Provider Active S tart: May 21, 2025 Dr. Kassy Shipman MD Other Provider Active Start: May 21, 2025 Dr. Sadi Andrade MD Other Provider Active Start : May 21, 2025 Dr. Frankie Conway MD Other Provider Active Start: May 21, 2025 Dr. Jimi Rdz MD Other Provider Active Start : May 21, 2025 Dr. Yeimi Allen MD Other Provider Active Star t: May 21, 2025 Dr. Nixon Kitchen MD Other Provider Active Sta rt: May 21, 2025 Dr. Starr Amaya MD Other Provider Active Sta rt: May 21, 2025 Dr. Brad Mclean MD Other Provider Active Star t: May 21, 2025 Dr. Pancho Rios MD Other Provider Active St art: May 21, 2025 Dr. Phi Watson MD Other Provider Active Star t: May 21, 2025 Dr. Errol Nicholas DO Other Provider Active St art: May 21, 2025 Dr. Kira Silva MD Other Provider Active Start: May 21, 2025 Dr. Gabrielle Nickerson MD Other Provider Active St art: May 21, 2025 Dr. Mariano Glasgow DO Other Provider Active Start: May 21, 2025 Dr. Floyd Bernal MD Other Provider Active Star t: May 21, 2025 Dr. Mike Juarez MD Other Provider Active Sta rt: May 21, 2025 Team Status: Active Member Role/Relationship Status Dates Dr. Sabrina Duran DO Primary Care Provider Active Start: May 21, 2025 Dr. Dar Hunt MD Emergency Provider Active Sta rt: May 21, 2025 Dr. Matt Acevedo DO Admit Provider Active Star t: May 21, 2025 Dr. Matt Acevedo DO Attending Provider Active Start: May 21, 2025 Dr. Matt Acevedo DO Other Provider Active Star t: May 21, 2025 Dr. Ziggy Shelton MD Other Provider Active Sta rt: May 21, 2025 Dr. Jeffery Mcrae DO Other Provider Active St art: May 21, 2025 Swetha Asif NP-C Other Provider Active Start : May 21, 2025 Nayely Sarkar NP-C Other Provider Active St art: May 21, 2025 ESPERANZA [place] Other Provider Active Star t: May 21, 2025 Dr. Saul Brooks MD Other Provider Active Start: May 21, 2025 Dr. Ruel Mondragon MD Other Provider Active Start: May 21, 2025 Dr. Tyson Reece MD Other Provider Active Star t: May 21, 2025 Dr. Julian Monsivais DO Other Provider Active Start : May 21, 2025 Dr. Juvenal Hedrick MD Other Provider Active Sta rt: May 21, 2025 Dr. Kentrell Cottrell MD Other Provider Active St art: May 21, 2025 Dr. Jj Ragland MD Other Provider Active S tart: May 21, 2025 Dr. Kassy Shipman MD Other Provider Active Start: May 21, 2025 Dr. Sadi Andrade MD Other Provider Active Start : May 21, 2025 Dr. Frankie Conway MD Other Provider Active Start: May 21, 2025 Dr. Jimi Rdz MD Other Provider Active Start : May 21, 2025 Dr. Yeimi Allen MD Other Provider Active Star t: May 21, 2025 Dr. Nixon Kitchen MD Other Provider Active Sta rt: May 21, 2025 Dr. Starr Amaya MD Other Provider Active Sta rt: May 21, 2025 Dr. Brad Mclean MD Other Provider Active Star t: May 21, 2025 Dr. Pancho Rios MD Other Provider Active St art: May 21, 2025 Dr. Phi Watson MD Other Provider Active Star t: May 21, 2025 Dr. Errol Nicholas DO Other Provider Active St art: May 21, 2025 Dr. Kira Silva MD Other Provider Active Start: May 21, 2025 Dr. Gabrielle Nickerson MD Other Provider Active St art: May 21, 2025 Dr. Mariano Glasgow DO Other Provider Active Start: May 21, 2025 Dr. Floyd Bernal MD Other Provider Active Star t: May 21, 2025 Dr. Mike Juarez MD Other Provider Active Sta rt: May 21, 2025 Team Status: Active Member Role/Relationship Status Dates Dr. Sabrina Duran DO Primary Care Provider Active Start: May 21, 2025 Dr. Dar Hunt MD Emergency Provider Active Sta rt: May 21, 2025 Dr. Matt Acevedo DO Admit Provider Active Star t: May 21, 2025 Dr. Matt Acevedo DO Other Provider Active Star t: May 21, 2025 Dr. Ziggy Shelton MD Other Provider Active Sta rt: May 21, 2025 Dr. Jeffery Mcrae DO Attending Provider Active Start: May 21, 2025 Dr. Jeffery Mcrae DO Other Provider Active St art: May 21, 2025 Swetha Asif NP-C Other Provider Active Start : May 21, 2025 Nayely Sarkar NP-C Other Provider Active St art: May 21, 2025 ESPERANZA [place] Other Provider Active Star t: May 21, 2025 Dr. Saul Brooks MD Other Provider Active Start: May 21, 2025 Dr. Ruel Mondragon MD Other Provider Active Start: May 21, 2025 Dr. Tyson Reece MD Other Provider Active Star t: May 21, 2025 Dr. Julian Monsivais DO Other Provider Active Start : May 21, 2025 Dr. Juvenal Hedrick MD Other Provider Active Sta rt: May 21, 2025 Dr. Kentrell Cottrell MD Other Provider Active St art: May 21, 2025 Dr. Jj Ragland MD Other Provider Active S tart: May 21, 2025 Dr. Kassy Shipman MD Other Provider Active Start: May 21, 2025 Dr. Sadi Andrade MD Other Provider Active Start : May 21, 2025 Dr. Frankie Cnoway MD Other Provider Active Start: May 21, 2025 Dr. Jimi Rdz MD Other Provider Active Start : May 21, 2025 Dr. Yeimi Allen MD Other Provider Active Star t: May 21, 2025 Dr. Nixon Kitchen MD Other Provider Active Sta rt: May 21, 2025 Dr. Starr Amaya MD Other Provider Active Sta rt: May 21, 2025 Dr. Brad Mclean MD Other Provider Active Star t: May 21, 2025 Dr. Pancho Rios MD Other Provider Active St art: May 21, 2025 Dr. Phi Watson MD Other Provider Active Star t: May 21, 2025 Dr. Errol Nicholas , Other Provider Active St art: May 21, 2025 Dr. Kira Silva MD Other Provider Active Start: May 21, 2025 Dr. Gabrielle Nickerson MD Other Provider Active St art: May 21, 2025 Dr. Mariano Glasgow DO Other Provider Active Start: May 21, 2025 Dr. Floyd Bernal MD Other Provider Active Star t: May 21, 2025 Dr. Mike Juarez MD Other Provider Active Sta rt: May 21, 2025 Team Status: Active Member Role/Relationship Status Dates Dr. Sabrina Duran DO Primary Care Provider Active Start: May 22, 2025 Dr. Dar Hunt MD Emergency Provider Active Sta rt: May 22, 2025 Dr. Matt Acevedo DO Admit Provider Active Star t: May 22, 2025 Dr. Matt Acevedo DO Referring Provider Active Start: May 22, 2025 Dr. Matt Acevedo DO Other Provider Active Star t: May 22, 2025 Dr. Ziggy Shelton MD Other Provider Active Sta rt: May 22, 2025 Dr. Jeffery Mcrae , Other Provider Active St art: May 22, 2025 MARTINE Hernandez Other Provider Active Start : May 22, 2025 MARTINE Briceño Other Provider Active St art: May 22, 2025 ESPERANZA [place] Other Provider Active Star t: May 22, 2025 Dr. Saul Brooks MD Other Provider Active Start: May 22, 2025 Dr. Ruel Mondragon MD Other Provider Active Start: May 22, 2025 Dr. Tyson Reece MD Other Provider Active Star t: May 22, 2025 Dr. Julian Monsivais DO Attending Provider Active S tart: May 22, 2025 Dr. Julian Monsivais DO Other Provider Active Start : May 22, 2025 Dr. Jvuenal Hedrick MD Other Provider Active Sta rt: May 22, 2025 Dr. Kentrell Cottrell MD Other Provider Active St art: May 22, 2025 Dr. Jj Ragland MD Other Provider Active S tart: May 22, 2025 Dr. Kassy Shipman MD Other Provider Active Start: May 22, 2025 Dr. Sadi Andrade MD Other Provider Active Start : May 22, 2025 Dr. Frankie Conway MD Other Provider Active Start: May 22, 2025 Dr. Jimi Rdz MD Other Provider Active Start : May 22, 2025 Dr. Yeimi Allen MD Other Provider Active Star t: May 22, 2025 Dr. Nixon Kitchen MD Other Provider Active Sta rt: May 22, 2025 Dr. Starr Amaya MD Other Provider Active Sta rt: May 22, 2025 Dr. Brad Mclean MD Other Provider Active Star t: May 22, 2025 Dr. Pancho Rios MD Other Provider Active St art: May 22, 2025 Dr. Phi Watson MD Other Provider Active Star t: May 22, 2025 Dr. Errol Nicholas DO Other Provider Active St art: May 22, 2025 Dr. Kira Silva MD Other Provider Active Start: May 22, 2025 Dr. Gabrielle Nickerson MD Other Provider Active St art: May 22, 2025 Dr. Mariano Glasgow DO Other Provider Active Start: May 22, 2025 Dr. Floyd Bernal MD Other Provider Active Star t: May 22, 2025 Dr. Mike Juarez MD Other Provider Active Sta rt: May 22, 2025 Team Status: Active Member Role/Relationship Status Dates Dr. Sabrina Duran DO Primary Care Provider Active Start: May 22, 2025 Dr. Dar Hunt MD Emergency Provider Active Sta rt: May 22, 2025 Dr. Matt Acevedo , Admit Provider Active Star t: May 22, 2025 Dr. Matt Acevedo DO Attending Provider Active Start: May 22, 2025 Dr. Matt Acevedo DO Other Provider Active Star t: May 22, 2025 Dr. Ziggy Shelton MD Other Provider Active Sta rt: May 22, 2025 Dr. Jeffery Mcrae DO Other Provider Active St art: May 22, 2025 Swetha Asif NP-C Other Provider Active Start : May 22, 2025 Nayely Sarkar NP-C Other Provider Active St art: May 22, 2025 ESPERANZA [place] Other Provider Active Star t: May 22, 2025 Dr. Saul Brooks MD Other Provider Active Start: May 22, 2025 Dr. Ruel Mondragon MD Other Provider Active Start: May 22, 2025 Dr. Tyson Reece MD Other Provider Active Star t: May 22, 2025 Dr. Julian Monsivais DO Other Provider Active Start : May 22, 2025 Dr. Juvenal Hedrick MD Other Provider Active Sta rt: May 22, 2025 Dr. Kentrell Cottrell MD Other Provider Active St art: May 22, 2025 Dr. Jj Ragland MD Other Provider Active S tart: May 22, 2025 Dr. Kassy Shipman MD Other Provider Active Start: May 22, 2025 Dr. Sadi Andrade MD Other Provider Active Start : May 22, 2025 Dr. Frankie Conway MD Other Provider Active Start: May 22, 2025 Dr. Jimi Rdz MD Other Provider Active Start : May 22, 2025 Dr. Yeimi Allen MD Other Provider Active Star t: May 22, 2025 Dr. Nixon Kitchen MD Other Provider Active Sta rt: May 22, 2025 Dr. Starr Amaya MD Other Provider Active Sta rt: May 22, 2025 Dr. Brad Mclean MD Other Provider Active Star t: May 22, 2025 Dr. Pancho Rios MD Other Provider Active St art: May 22, 2025 Dr. Phi Watson MD Other Provider Active Star t: May 22, 2025 Dr. Errol Nicholas , Other Provider Active St art: May 22, 2025 Dr. Kira Silva MD Other Provider Active Start: May 22, 2025 Dr. Gabrielle Nickerson MD Other Provider Active St art: May 22, 2025 Dr. Mariano Glasgow DO Other Provider Active Start: May 22, 2025 Dr. Floyd Bernal MD Other Provider Active Star t: May 22, 2025 Dr. Mike Juarez MD Other Provider Active Sta rt: May 22, 2025 Team Status: Active Member Role/Relationship Status Dates Dr. Sabrina Duran DO Primary Care Provider Active Start: May 22, 2025 Dr. Jeffery Mcrae DO Attending Provider Active Start: May 22, 2025 Team Status: Active Member Role/Relationship Status Dates Dr. Sabrina Duran DO Primary Care Provider Active Start: May 23, 2025 Dr. Dar Hunt MD Emergency Provider Active Sta rt: May 23, 2025 Dr. Matt Acevedo DO Admit Provider Active Star t: May 23, 2025 Dr. Matt Acevedo DO Attending Provider Active Start: May 23, 2025 Dr. Matt Acevedo DO Other Provider Active Star t: May 23, 2025 Dr. Ziggy Shelton MD Other Provider Active Sta rt: May 23, 2025 Dr. Jeffery Mcrae DO Other Provider Active St art: May 23, 2025 MARTINE Hernandez Other Provider Active Start : May 23, 2025 MARTINE Briceño Other Provider Active St art: May 23, 2025 ESPERANZA [place] Other Provider Active Star t: May 23, 2025 Dr. Saul Brooks MD Other Provider Active Start: May 23, 2025 Dr. Ruel Mondragon MD Other Provider Active Start: May 23, 2025 Dr. Tyson Reece MD Other Provider Active Star t: May 23, 2025 Dr. Julian Monsivais DO Other Provider Active Start : May 23, 2025 Dr. Juvenal Hedrick MD Other Provider Active Sta rt: May 23, 2025 Dr. Kentrell Cottrell MD Other Provider Active St art: May 23, 2025 Dr. Jj Ragland MD Other Provider Active S tart: May 23, 2025 Dr. Kassy Shipman MD Other Provider Active Start: May 23, 2025 Dr. Sadi Andrade MD Other Provider Active Start : May 23, 2025 Dr. Frankie Conway MD Other Provider Active Start: May 23, 2025 Dr. Jimi Rdz MD Other Provider Active Start : May 23, 2025 Dr. Yeimi Allen MD Other Provider Active Star t: May 23, 2025 Dr. Nixon Kitchen MD Other Provider Active Sta rt: May 23, 2025 Dr. Starr Amaya MD Other Provider Active Sta rt: May 23, 2025 Dr. Brad Mclean MD Other Provider Active Star t: May 23, 2025 Dr. Pancho Rios MD Other Provider Active St art: May 23, 2025 Dr. Phi Watson MD Other Provider Active Star t: May 23, 2025 Dr. Errol Nicholas DO Other Provider Active St art: May 23, 2025 Dr. Kira Silva MD Other Provider Active Start: May 23, 2025 Dr. Gabrielle Nickerson MD Other Provider Active St art: May 23, 2025 Dr. Mariano Glasgow DO Other Provider Active Start: May 23, 2025 Dr. Floyd Bernal MD Other Provider Active Star t: May 23, 2025 Dr. Mike Juarez MD Other Provider Active Sta rt: May 23, 2025 Team Status: Active Member Role/Relationship Status Dates Dr. Sabrina Duran DO Primary Care Provider Active Start: May 24, 2025 Dr. Dar Hunt MD Emergency Provider Active Sta rt: May 24, 2025 Dr. Matt Acevedo DO Admit Provider Active Star t: May 24, 2025 Dr. Matt Acevedo DO Referring Provider Active Start: May 24, 2025 Dr. Matt Acevedo DO Other Provider Active Star t: May 24, 2025 Dr. Ziggy Shelton MD Other Provider Active Sta rt: May 24, 2025 Dr. Jeffery Mcrae , Other Provider Active St art: May 24, 2025 MARTINE Hernandez Other Provider Active Start : May 24, 2025 MARTINE Briceño Other Provider Active St art: May 24, 2025 ESPERANZA [place] Other Provider Active Star t: May 24, 2025 Dr. Saul Brooks MD Other Provider Active Start: May 24, 2025 Dr. Ruel Mondragon MD Other Provider Active Start: May 24, 2025 Dr. Tyson Reece MD Other Provider Active Star t: May 24, 2025 Dr. Julian Monsivais DO Attending Provider Active S tart: May 24, 2025 Dr. Julian Monsivais DO Other Provider Active Start : May 24, 2025 Dr. Juvenal Hedrick MD Other Provider Active Sta rt: May 24, 2025 Dr. Kentrell Cottrell MD Other Provider Active St art: May 24, 2025 Dr. Jj Ragland MD Other Provider Active S tart: May 24, 2025 Dr. Kassy Shipman MD Other Provider Active Start: May 24, 2025 Dr. Sadi Andrade MD Other Provider Active Start : May 24, 2025 Dr. Frankie Conway MD Other Provider Active Start: May 24, 2025 Dr. Jimi Rdz MD Other Provider Active Start : May 24, 2025 Dr. Yeimi Allen MD Other Provider Active Star t: May 24, 2025 Dr. Nixon Kitchen MD Other Provider Active Sta rt: May 24, 2025 Dr. Starr Amaya MD Other Provider Active Sta rt: May 24, 2025 Dr. Brad Mclean MD Other Provider Active Star t: May 24, 2025 Dr. Pancho Rios MD Other Provider Active St art: May 24, 2025 Dr. Phi Watson MD Other Provider Active Star t: May 24, 2025 Dr. Errol Nicholas DO Other Provider Active St art: May 24, 2025 Dr. Kiar Silva MD Other Provider Active Start: May 24, 2025 Dr. Gabrielle Nickerson MD Other Provider Active St art: May 24, 2025 Dr. Mariano Glasgow , Other Provider Active Start: May 24, 2025 Dr. Floyd Bernal MD Other Provider Active Star t: May 24, 2025 Dr. Mike Juarez MD Other Provider Active Sta rt: May 24, 2025 Team Status: Active Member Role/Relationship Status Dates Dr. Sabrina Duran DO Primary Care Provider Active Start: May 24, 2025 Dr. Dar Hunt MD Emergency Provider Active Sta rt: May 24, 2025 Dr. Matt Acevedo DO Admit Provider Active Star t: May 24, 2025 Dr. Matt Acevedo DO Attending Provider Active Start: May 24, 2025 Dr. Matt Acevedo DO Other Provider Active Star t: May 24, 2025 Dr. Ziggy Shelton MD Other Provider Active Sta rt: May 24, 2025 Dr. Jeffery Mcrae , Other Provider Active St art: May 24, 2025 Swetha Asif NP-C Other Provider Active Start : May 24, 2025 Nayely Sarkar NP-[place] Other Provider Active St art: May 24, 2025 ESPERANZA [place] Other Provider Active Star t: May 24, 2025 Dr. Saul Brooks MD Other Provider Active Start: May 24, 2025 Dr. Ruel Mondragon MD Other Provider Active Start: May 24, 2025 Dr. Tyson Reece MD Other Provider Active Star t: May 24, 2025 Dr. Julian Monsivais DO Other Provider Active Start : May 24, 2025 Dr. Juvenal Hedrick MD Other Provider Active Sta rt: May 24, 2025 Dr. Kentrell Cottrell MD Other Provider Active St art: May 24, 2025 Dr. Jj Ragland MD Other Provider Active S tart: May 24, 2025 Dr. Kassy Shipman MD Other Provider Active Start: May 24, 2025 Dr. Sadi Andrade MD Other Provider Active Start : May 24, 2025 Dr. Frankie Conway MD Other Provider Active Start: May 24, 2025 Dr. Jimi Rdz MD Other Provider Active Start : May 24, 2025 Dr. Yeimi Allen MD Other Provider Active Star t: May 24, 2025 Dr. Nixon Kitchen MD Other Provider Active Sta rt: May 24, 2025 Dr. Starr Amaya MD Other Provider Active Sta rt: May 24, 2025 Dr. Brad Mclean MD Other Provider Active Star t: May 24, 2025 Dr. Pancho Rios MD Other Provider Active St art: May 24, 2025 Dr. Phi Watson MD Other Provider Active Star t: May 24, 2025 Dr. Errol Nicholas DO Other Provider Active St art: May 24, 2025 Dr. Kira Silva MD Other Provider Active Start: May 24, 2025 Dr. Gabrielle Nickerson MD Other Provider Active St art: May 24, 2025 Dr. Mariano Galsgow DO Other Provider Active Start: May 24, 2025 Dr. Floyd Bernal MD Other Provider Active Star t: May 24, 2025 Dr. Mike Juarez MD Other Provider Active Sta rt: May 24, 2025 Team Status: Active Member Role/Relationship Status Dates Dr. Sabrina Duran DO Primary Care Provider Active Start: May 25, 2025 Dr. Dar Hunt MD Emergency Provider Active Sta rt: May 25, 2025 Dr. Matt Acevedo DO Admit Provider Active Star t: May 25, 2025 Dr. Matt Acevedo DO Attending Provider Active Start: May 25, 2025 Dr. Matt Acevedo DO Other Provider Active Star t: May 25, 2025 Dr. Ziggy Shelton MD Other Provider Active Sta rt: May 25, 2025 Dr. Jeffery Mcrae DO Other Provider Active St art: May 25, 2025 MARTINE Hernandez Other Provider Active Start : May 25, 2025 MARTINE Briceño Other Provider Active St art: May 25, 2025 ESPERANZA [place] Other Provider Active Star t: May 25, 2025 Dr. Saul Brooks MD Other Provider Active Start: May 25, 2025 Dr. Ruel Mondragon MD Other Provider Active Start: May 25, 2025 Dr. Tyson Reece MD Other Provider Active Star t: May 25, 2025 Dr. Julian Monsivais , Other Provider Active Start : May 25, 2025 Dr. Juvenal Hedrick MD Other Provider Active Sta rt: May 25, 2025 Dr. Kentrell Cottrell MD Other Provider Active St art: May 25, 2025 Dr. Jj Ragland MD Other Provider Active S tart: May 25, 2025 Dr. Kassy Shipman MD Other Provider Active Start: May 25, 2025 Dr. Sadi Andrade MD Other Provider Active Start : May 25, 2025 Dr. Frankie Conway MD Other Provider Active Start: May 25, 2025 Dr. Jimi Rdz MD Other Provider Active Start : May 25, 2025 Dr. Yeimi Allen MD Other Provider Active Star t: May 25, 2025 Dr. Nixon Kitchen MD Other Provider Active Sta rt: May 25, 2025 Dr. Starr Amaya MD Other Provider Active Sta rt: May 25, 2025 Dr. Brad Mclean MD Other Provider Active Star t: May 25, 2025 Dr. Pancho Rios MD Other Provider Active St art: May 25, 2025 Dr. Phi Watson MD Other Provider Active Star t: May 25, 2025 Dr. Errol Nicholas DO Other Provider Active St art: May 25, 2025 Dr. Kira Silva MD Other Provider Active Start: May 25, 2025 Dr. Gabrielle Nickerson MD Other Provider Active St art: May 25, 2025 Dr. Mariano Glasgow DO Other Provider Active Start: May 25, 2025 Dr. Floyd Bernal MD Other Provider Active Star t: May 25, 2025 Dr. Mike Juarez MD Other Provider Active Sta rt: May 25, 2025 Team Status: Active Member Role/Relationship Status Dates Dr. Sabrina Duran DO Primary Care Provider Active Start: May 25, 2025 Dr. Dar Hunt MD Emergency Provider Active Sta rt: May 25, 2025 Dr. Matt Acevedo DO Admit Provider Active Star t: May 25, 2025 Dr. Matt Acevedo DO Referring Provider Active Start: May 25, 2025 Dr. Matt Acevedo , Other Provider Active Star t: May 25, 2025 Dr. Ziggy Shelton MD Other Provider Active Sta rt: May 25, 2025 Dr. Jeffery Mcrae , Other Provider Active St art: May 25, 2025 Swetha Asif NP-C Other Provider Active Start : May 25, 2025 Nayely Sarkar NP-C Other Provider Active St art: May 25, 2025 ESPERANZA [place] Other Provider Active Star t: May 25, 2025 Dr. Saul Brooks MD Other Provider Active Start: May 25, 2025 Dr. Ruel Mondragon MD Other Provider Active Start: May 25, 2025 Dr. Tyson Reece MD Other Provider Active Star t: May 25, 2025 Dr. Julian Monsivais DO Attending Provider Active S tart: May 25, 2025 Dr. Julian Monsivais , Other Provider Active Start : May 25, 2025 Dr. Juvenal Hedrick MD Other Provider Active Sta rt: May 25, 2025 Dr. Kentrell Cottrell MD Other Provider Active St art: May 25, 2025 Dr. Jj Ragland MD Other Provider Active S tart: May 25, 2025 Dr. Kassy Shipman MD Other Provider Active Start: May 25, 2025 Dr. Sadi Andrade MD Other Provider Active Start : May 25, 2025 Dr. Frankie Conway MD Other Provider Active Start: May 25, 2025 Dr. Jimi Rdz MD Other Provider Active Start : May 25, 2025 Dr. Yeimi Allen MD Other Provider Active Star t: May 25, 2025 Dr. Nixon Kitchen MD Other Provider Active Sta rt: May 25, 2025 Dr. Starr Amaya MD Other Provider Active Sta rt: May 25, 2025 Dr. Brad Mclean MD Other Provider Active Star t: May 25, 2025 Dr. Pancho Rios MD Other Provider Active St art: May 25, 2025 Dr. Phi Watson MD Other Provider Active Star t: May 25, 2025 Dr. Errol Nicholas , Other Provider Active St art: May 25, 2025 Dr. Kira Silva MD Other Provider Active Start: May 25, 2025 Dr. Gabrielle Nickerson MD Other Provider Active St art: May 25, 2025 Dr. Mariano Glasgow DO Other Provider Active Start: May 25, 2025 Dr. Floyd Bernal MD Other Provider Active Star t: May 25, 2025 Dr. Mike Juarez MD Other Provider Active Sta rt: May 25, 2025 Team Status: Active Member Role/Relationship Status Dates Dr. Sabrina Duran DO Primary Care Provider Active Start: May 26, 2025 Dr. Dar Hunt MD Emergency Provider Active Sta rt: May 26, 2025 Dr. Matt Acevedo DO Admit Provider Active Star t: May 26, 2025 Dr. Matt Acevedo DO Attending Provider Active Start: May 26, 2025 Dr. Matt Acevedo DO Other Provider Active Star t: May 26, 2025 Dr. Ziggy Shelton MD Other Provider Active Sta rt: May 26, 2025 Dr. Jeffery Mcrae DO Other Provider Active St art: May 26, 2025 Swetha Asif NP-C Other Provider Active Start : May 26, 2025 Nayely Sarkar NP-[place] Other Provider Active St art: May 26, 2025 ESPERANZA [place] Other Provider Active Star t: May 26, 2025 Dr. Saul Brooks MD Other Provider Active Start: May 26, 2025 Dr. Ruel Mondragon MD Other Provider Active Start: May 26, 2025 Dr. Tyson Reece MD Other Provider Active Star t: May 26, 2025 Dr. Julian Monsivais DO Other Provider Active Start : May 26, 2025 Dr. Juvenal Hedrick MD Other Provider Active Sta rt: May 26, 2025 Dr. Kentrell Cottrell MD Other Provider Active St art: May 26, 2025 Dr. Jj Ragland MD Other Provider Active S tart: May 26, 2025 Dr. Kassy Shipman MD Other Provider Active Start: May 26, 2025 Dr. Sadi Andrade MD Other Provider Active Start : May 26, 2025 Dr. Frankie Conway MD Other Provider Active Start: May 26, 2025 Dr. Jimi Rdz MD Other Provider Active Start : May 26, 2025 Dr. Yeimi Allen MD Other Provider Active Star t: May 26, 2025 Dr. Nixon Kitchen MD Other Provider Active Sta rt: May 26, 2025 Dr. Starr Amaya MD Other Provider Active Sta rt: May 26, 2025 Dr. Brad Mclean MD Other Provider Active Star t: May 26, 2025 Dr. Pancho Rios MD Other Provider Active St art: May 26, 2025 Dr. Phi Watson MD Other Provider Active Star t: May 26, 2025 Dr. Errol Nicholas , Other Provider Active St art: May 26, 2025 Dr. Kira Silva MD Other Provider Active Start: May 26, 2025 Dr. Gabrielle Nickerson MD Other Provider Active St art: May 26, 2025 Dr. Mariano Glasgow DO Other Provider Active Start: May 26, 2025 Dr. Floyd Bernal MD Other Provider Active Star t: May 26, 2025 Dr. Mike Juarez MD Other Provider Active Sta rt: May 26, 2025 Team Status: Active Member Role/Relationship Status Dates Dr. Sabrina Duran DO Primary Care Provider Active Start: May 27, 2025 Dr. Dar Hunt MD Emergency Provider Active Sta rt: May 27, 2025 Dr. Matt Acevedo DO Admit Provider Active Star t: May 27, 2025 Dr. Matt Acevedo DO Attending Provider Active Start: May 27, 2025 Dr. Matt Acevedo DO Other Provider Active Star t: May 27, 2025 Dr. Ziggy Shelton MD Other Provider Active Sta rt: May 27, 2025 Dr. Jeffery Mcrae , Other Provider Active St art: May 27, 2025 MARTINE Hernandez Other Provider Active Start : May 27, 2025 MARTINE Briceño Other Provider Active St art: May 27, 2025 ESPERANZA [place] Other Provider Active Star t: May 27, 2025 Dr. Saul Brooks MD Other Provider Active Start: May 27, 2025 Dr. Ruel Mondragon MD Other Provider Active Start: May 27, 2025 Dr. Tyson Reece MD Other Provider Active Star t: May 27, 2025 Dr. Julian Monsivais DO Other Provider Active Start : May 27, 2025 Dr. Juvenal Hedrick MD Other Provider Active Sta rt: May 27, 2025 Dr. Kentrell Cottrell MD Other Provider Active St art: May 27, 2025 Dr. Jj Ragland MD Other Provider Active S tart: May 27, 2025 Dr. Kassy Shipman MD Other Provider Active Start: May 27, 2025 Dr. Sadi Andrade MD Other Provider Active Start : May 27, 2025 Dr. Frankie Conway MD Other Provider Active Start: May 27, 2025 Dr. Jimi Rdz MD Other Provider Active Start : May 27, 2025 Dr. Yeimi Allen MD Other Provider Active Star t: May 27, 2025 Dr. Nixon Kitchen MD Other Provider Active Sta rt: May 27, 2025 Dr. Starr Amaya MD Other Provider Active Sta rt: May 27, 2025 Dr. Brad Mclean MD Other Provider Active Star t: May 27, 2025 Dr. Pancho Rios MD Other Provider Active St art: May 27, 2025 Dr. Phi Watson MD Other Provider Active Star t: May 27, 2025 Dr. Errol Nicholas DO Other Provider Active St art: May 27, 2025 Dr. Kira Silva MD Other Provider Active Start: May 27, 2025 Dr. Gabrielle Nickerson MD Other Provider Active St art: May 27, 2025 Dr. Mariano Glasgow DO Other Provider Active Start: May 27, 2025 Dr. Floyd Bernal MD Other Provider Active Star t: May 27, 2025 Dr. Mike Juarez MD Other Provider Active Sta rt: May 27, 2025 Team Status: Active Member Role/Relationship Status Dates Dr. Sabrina Duran DO Primary Care Provider Active Start: May 28, 2025 Dr. Dar Hunt MD Emergency Provider Active Sta rt: May 28, 2025 Dr. Matt Acevedo DO Admit Provider Active Star t: May 28, 2025 Dr. Matt Acevedo DO Referring Provider Active Start: May 28, 2025 Dr. Matt Acevedo DO Other Provider Active Star t: May 28, 2025 Dr. Ziggy Shelton MD Other Provider Active Sta rt: May 28, 2025 Dr. Jeffery Mcrae DO Other Provider Active St art: May 28, 2025 Swetha Asif NP-C Other Provider Active Start : May 28, 2025 Nayely Sarkar NP-[place] Other Provider Active St art: May 28, 2025 [place]ERANZA [place] Other Provider Active Star t: May 28, 2025 Dr. Saul Brooks MD Other Provider Active Start: May 28, 2025 Dr. Ruel Mondragon MD Other Provider Active Start: May 28, 2025 Dr. Tyson Reece MD Other Provider Active Star t: May 28, 2025 Dr. Julian Monsivais DO Attending Provider Active S tart: May 28, 2025 Dr. Julian Monsivais DO Other Provider Active Start : May 28, 2025 Dr. Juvenal Hedrick MD Other Provider Active Sta rt: May 28, 2025 Dr. Kentrell Cottrell MD Other Provider Active St art: May 28, 2025 Dr. Jj Ragland MD Other Provider Active S tart: May 28, 2025 Dr. Kassy Shipman MD Other Provider Active Start: May 28, 2025 Dr. Sadi Andrade MD Other Provider Active Start : May 28, 2025 Dr. Frankie Conway MD Other Provider Active Start: May 28, 2025 Dr. Jimi Rdz MD Other Provider Active Start : May 28, 2025 Dr. Yeimi Allen MD Other Provider Active Star t: May 28, 2025 Dr. Nixon Kitchen MD Other Provider Active Sta rt: May 28, 2025 Dr. Starr Amaya MD Other Provider Active Sta rt: May 28, 2025 Dr. Brad Mclean MD Other Provider Active Star t: May 28, 2025 Dr. Pancho Rios MD Other Provider Active St art: May 28, 2025 Dr. Phi Watson MD Other Provider Active Star t: May 28, 2025 Dr. Errol Nicholas , Other Provider Active St art: May 28, 2025 Dr. Kira Silva MD Other Provider Active Start: May 28, 2025 Dr. Gabrielle Nickerson MD Other Provider Active St art: May 28, 2025 Dr. Mariano Glasgow DO Other Provider Active Start: May 28, 2025 Dr. Floyd Bernal MD Other Provider Active Star t: May 28, 2025 Dr. Mike Juarez MD Other Provider Active Sta rt: May 28, 2025 Team Status: Active Member Role/Relationship Status Dates Dr. Sabrina Duran DO Primary Care Provider Active Start: May 28, 2025 Dr. Dar Hunt MD Emergency Provider Active Sta rt: May 28, 2025 Dr. Matt Acevedo DO Admit Provider Active Star t: May 28, 2025 Dr. Matt Acevedo DO Other Provider Active Star t: May 28, 2025 Dr. Ziggy Shelton MD Other Provider Active Sta rt: May 28, 2025 Dr. Jeffery Mcrae DO Other Provider Active St art: May 28, 2025 Swetha Asif NP-C Other Provider Active Start : May 28, 2025 Nayely Sarkar NP-C Other Provider Active St art: May 28, 2025 [place]ERANZA [place] Other Provider Active Star t: May 28, 2025 Dr. Saul Brooks MD Other Provider Active Start: May 28, 2025 Dr. Ruel Mondragon MD Other Provider Active Start: May 28, 2025 Dr. Tyson Reece MD Other Provider Active Star t: May 28, 2025 Dr. Julian Monsivais DO Other Provider Active Start : May 28, 2025 Dr. Juvenal Hedrick MD Other Provider Active Sta rt: May 28, 2025 Dr. Kentrell Cottrell MD Other Provider Active St art: May 28, 2025 Dr. Jj Ragland MD Other Provider Active S tart: May 28, 2025 Dr. Kassy Shipman MD Other Provider Active Start: May 28, 2025 Dr. Sadi Andrade MD Other Provider Active Start : May 28, 2025 Dr. Frankie Conway MD Other Provider Active Start: May 28, 2025 Dr. Jimi Rdz MD Other Provider Active Start : May 28, 2025 Dr. Yeimi Allen MD Other Provider Active Star t: May 28, 2025 Dr. Nixon Kitchen MD Other Provider Active Sta rt: May 28, 2025 Dr. Starr Amaya MD Other Provider Active Sta rt: May 28, 2025 Dr. Brad Mclean MD Other Provider Active Star t: May 28, 2025 Dr. Pancho Rois MD Other Provider Active St art: May 28, 2025 Dr. Phi Watson MD Other Provider Active Star t: May 28, 2025 Dr. Errol Nicholas DO Other Provider Active St art: May 28, 2025 Dr. Kira Silva MD Other Provider Active Start: May 28, 2025 Dr. Gabrielle Nickerson MD Other Provider Active St art: May 28, 2025 Dr. Mariano Glasgow DO Other Provider Active Start: May 28, 2025 Dr. Floyd Bernal MD Other Provider Active Star t: May 28, 2025 Dr. Mike Juarez MD Other Provider Active Sta rt: May 28, 2025 Dr. Yanet Zhou MD Attending Provider Active Start: May 28, 2025 Dr. Yanet Zhou MD Other Provider Active St art: May 28, 2025 Team Status: Active Member Role/Relationship Status Dates Dr. Sabrina Duran DO Primary Care Provider Active Start: May 29, 2025 Dr. Dar Hunt MD Emergency Provider Active Sta rt: May 29, 2025 Dr. Matt Acevedo DO Admit Provider Active Star t: May 29, 2025 Dr. Matt Acevedo DO Other Provider Active Star t: May 29, 2025 Dr. Ziggy Shelton MD Other Provider Active Sta rt: May 29, 2025 Dr. Jeffery Mcrae , Other Provider Active St art: May 29, 2025 MARTINE Hernandez Other Provider Active Start : May 29, 2025 MARTINE Briceño Other Provider Active St art: May 29, 2025 ESPERANZA [place] Other Provider Active Star t: May 29, 2025 Dr. Saul Brooks MD Other Provider Active Start: May 29, 2025 Dr. Ruel Mondragon MD Other Provider Active Start: May 29, 2025 Dr. Tyson Reece MD Other Provider Active Star t: May 29, 2025 Dr. Julian Monsivais DO Other Provider Active Start : May 29, 2025 Dr. Juvenal Hedrick MD Other Provider Active Sta rt: May 29, 2025 Dr. Kentrell Cottrell MD Other Provider Active St art: May 29, 2025 Dr. Jj Ragland MD Other Provider Active S tart: May 29, 2025 Dr. Kassy Shipman MD Other Provider Active Start: May 29, 2025 Dr. Sadi Andrade MD Other Provider Active Start : May 29, 2025 Dr. Frankie Conway MD Other Provider Active Start: May 29, 2025 Dr. Jimi Rdz MD Other Provider Active Start : May 29, 2025 Dr. Yeimi Allen MD Other Provider Active Star t: May 29, 2025 Dr. Nixon Kitchen MD Other Provider Active Sta rt: May 29, 2025 Dr. Starr Amaya MD Other Provider Active Sta rt: May 29, 2025 Dr. Brad Mclean MD Other Provider Active Star t: May 29, 2025 Dr. Pancho Rios MD Other Provider Active St art: May 29, 2025 Dr. Phi Watson MD Other Provider Active Star t: May 29, 2025 Dr. Errol Nicholas DO Other Provider Active St art: May 29, 2025 Dr. Kira Sivla MD Other Provider Active Start: May 29, 2025 Dr. Gabrielle Nickerson MD Other Provider Active St art: May 29, 2025 Dr. Mariano Glasgow DO Other Provider Active Start: May 29, 2025 Dr. Floyd Bernal MD Other Provider Active Star t: May 29, 2025 Dr. Mike Juarez MD Other Provider Active Sta rt: May 29, 2025 Dr. Yanet hZou MD Attending Provider Active Start: May 29, 2025 Dr. Yanet Zhou MD Other Provider Active St art: May 29, 2025 Team Status: Active Member Role/Relationship Status Dates Dr. Sabrina Duran DO Primary Care Provider Active Start: May 30, 2025 Dr. Dar Hunt MD Emergency Provider Active Sta rt: May 30, 2025 Dr. Matt Acevedo , Admit Provider Active Star t: May 30, 2025 Dr. Matt Acevedo , Other Provider Active Star t: May 30, 2025 Dr. Ziggy Shelton MD Other Provider Active Sta rt: May 30, 2025 Dr. Jeffery Mcrae , Other Provider Active St art: May 30, 2025 Swetha Asif NP-C Other Provider Active Start : May 30, 2025 Nayely Sarkar NP-C Other Provider Active St art: May 30, 2025 ESPERANZA [place] Other Provider Active Star t: May 30, 2025 Dr. Saul Brooks MD Other Provider Active Start: May 30, 2025 Dr. Ruel Mondragon MD Other Provider Active Start: May 30, 2025 Dr. Tyson Reece MD Other Provider Active Star t: May 30, 2025 Dr. Julian Monsivais DO Other Provider Active Start : May 30, 2025 Dr. Juvenal Hedrick MD Other Provider Active Sta rt: May 30, 2025 Dr. Kentrell Cottrell MD Other Provider Active St art: May 30, 2025 Dr. Jj Ragland MD Other Provider Active S tart: May 30, 2025 Dr. Kassy Shipman MD Other Provider Active Start: May 30, 2025 Dr. Sadi Andrade MD Other Provider Active Start : May 30, 2025 Dr. Frankie Conway MD Other Provider Active Start: May 30, 2025 Dr. Jimi Rdz MD Other Provider Active Start : May 30, 2025 Dr. Yeimi Allen MD Other Provider Active Star t: May 30, 2025 Dr. Nixon Kitchen MD Other Provider Active Sta rt: May 30, 2025 Dr. Starr Amaya MD Other Provider Active Sta rt: May 30, 2025 Dr. Brad Mclean MD Other Provider Active Star t: May 30, 2025 Dr. Pancho Rios MD Other Provider Active St art: May 30, 2025 Dr. Phi Watson MD Other Provider Active Star t: May 30, 2025 Dr. Errol Nicholas DO Other Provider Active St art: May 30, 2025 Dr. Kira Silva MD Other Provider Active Start: May 30, 2025 Dr. Gabrielle Nickerson MD Other Provider Active St art: May 30, 2025 Dr. Mariano Glasgow , Other Provider Active Start: May 30, 2025 Dr. Floyd Bernal MD Other Provider Active Star t: May 30, 2025 Dr. Mike Juarez MD Other Provider Active Sta rt: May 30, 2025 Dr. Yanet Zhou MD Attending Provider Active Start: May 30, 2025 Dr. Yanet Zhou MD Other Provider Active St art: May 30, 2025 Team Status: Active Member Role/Relationship Status Dates Dr. Sabrina Duran DO Primary Care Provider Active Start: May 30, 2025 Dr. Dar Hunt MD Emergency Provider Active Sta rt: May 30, 2025 Dr. Matt Acevedo DO Admit Provider Active Star t: May 30, 2025 Dr. Matt Acevedo DO Other Provider Active Star t: May 30, 2025 Dr. Ziggy Shelton MD Other Provider Active Sta rt: May 30, 2025 Dr. Jeffery Mcrae DO Other Provider Active St art: May 30, 2025 MARTINE Hernandez Other Provider Active Start : May 30, 2025 MARTINE Briceño Attending Provider Active Start: May 30, 2025 MARTINE Briceño Other Provider Active St art: May 30, 2025 ESPERANZA [place] Other Provider Active Star t: May 30, 2025 Dr. Saul Brooks MD Other Provider Active Start: May 30, 2025 Dr. Ruel Mondragon MD Other Provider Active Start: May 30, 2025 Dr. Tyson Reece MD Other Provider Active Star t: May 30, 2025 Dr. Julian Monsivais DO Other Provider Active Start : May 30, 2025 Dr. Juvenal Hedrick MD Other Provider Active Sta rt: May 30, 2025 Dr. Kentrell Cottrell MD Other Provider Active St art: May 30, 2025 Dr. Jj Ragland MD Other Provider Active S tart: May 30, 2025 Dr. Kassy Shipman MD Other Provider Active Start: May 30, 2025 Dr. Sadi Andrade MD Other Provider Active Start : May 30, 2025 Dr. Frankie Conway MD Other Provider Active Start: May 30, 2025 Dr. Jimi Rdz MD Other Provider Active Start : May 30, 2025 Dr. Yeimi Allen MD Other Provider Active Star t: May 30, 2025 Dr. Nixon Kitchen MD Other Provider Active Sta rt: May 30, 2025 Dr. Starr Amaya MD Other Provider Active Sta rt: May 30, 2025 Dr. Brad Mclean MD Other Provider Active Star t: May 30, 2025 Dr. Pancho Rios MD Other Provider Active St art: May 30, 2025 Dr. Phi Watson MD Other Provider Active Star t: May 30, 2025 Dr. Errol Nicholas DO Other Provider Active St art: May 30, 2025 Dr. Kira Silva MD Other Provider Active Start: May 30, 2025 Dr. Gabrielle Nickerson MD Other Provider Active St art: May 30, 2025 Dr. Mariano Glasgow DO Other Provider Active Start: May 30, 2025 Dr. Floyd Bernal MD Other Provider Active Star t: May 30, 2025 Dr. Mike Juarez MD Other Provider Active Sta rt: May 30, 2025 Dr. Yanet Zhou MD Other Provider Active St art: May 30, 2025 Team Status: Active Member Role/Relationship Status Dates Dr. Sabrina Duran DO Primary Care Provider Active Start: May 31, 2025 Dr. Dar Hunt MD Emergency Provider Active Sta rt: May 31, 2025 Dr. Matt Acevedo DO Admit Provider Active Star t: May 31, 2025 Dr. Matt Acevedo DO Other Provider Active Star t: May 31, 2025 Dr. Ziggy Shelton MD Other Provider Active Sta rt: May 31, 2025 Dr. Jeffery Mcrae , Other Provider Active St art: May 31, 2025 MARTINE Hernandez Other Provider Active Start : May 31, 2025 MARTINE Briceño Other Provider Active St art: May 31, 2025 ESPERANZA [place] Other Provider Active Star t: May 31, 2025 Dr. Saul Brooks MD Other Provider Active Start: May 31, 2025 Dr. Ruel Mondragon MD Other Provider Active Start: May 31, 2025 Dr. Tyson Reece MD Other Provider Active Star t: May 31, 2025 Dr. Julian Monsivais , Other Provider Active Start : May 31, 2025 Dr. Juvenal Hedrick MD Other Provider Active Sta rt: May 31, 2025 Dr. Kentrell Cottrell MD Other Provider Active St art: May 31, 2025 Dr. Jj Ragland MD Other Provider Active S tart: May 31, 2025 Dr. Kassy Shipman MD Other Provider Active Start: May 31, 2025 Dr. Sadi Andrade MD Other Provider Active Start : May 31, 2025 Dr. Frankie Conway MD Other Provider Active Start: May 31, 2025 Dr. Jimi Rdz MD Other Provider Active Start : May 31, 2025 Dr. Yeimi Allen MD Other Provider Active Star t: May 31, 2025 Dr. Nixon Kitcehn MD Other Provider Active Sta rt: May 31, 2025 Dr. Starr Amaya MD Other Provider Active Sta rt: May 31, 2025 Dr. Brad Mclean MD Other Provider Active Star t: May 31, 2025 Dr. Pancho Rios MD Other Provider Active St art: May 31, 2025 Dr. Phi Watson MD Other Provider Active Star t: May 31, 2025 Dr. Errol Nicholas DO Other Provider Active St art: May 31, 2025 Dr. Kira Silva MD Other Provider Active Start: May 31, 2025 Dr. Gabrielle Nickerson MD Other Provider Active St art: May 31, 2025 Dr. Mariano Glasgow DO Other Provider Active Start: May 31, 2025 Dr. Floyd Bernal MD Other Provider Active Star t: May 31, 2025 Dr. Mike Juarez MD Other Provider Active Sta rt: May 31, 2025 Dr. Yanet Zhou MD Attending Provider Active Start: May 31, 2025 Dr. Yanet Zhou MD Other Provider Active St art: May 31, 2025 Team Status: Active Member Role/Relationship Status Dates Dr. Sabrina Duran DO Primary Care Provider Active Start: June 01, 2025 Dr. Dar Hunt MD Emergency Provider Active Sta rt: June 01, 2025 Dr. Matt Acevedo , Admit Provider Active Star t: June 01, 2025 Dr. Matt Acevedo , Other Provider Active Star t: June 01, 2025 Dr. Ziggy Shelton MD Other Provider Active Sta rt: June 01, 2025 Dr. Jeffery Mcrae , Other Provider Active St art: June 01, 2025 Swetha Asif NP-C Other Provider Active Start : June 01, 2025 Nayely Sarkar NP-C Other Provider Active St art: June 01, 2025 ESPERANZA [place] Other Provider Active Star t: June 01, 2025 Dr. Saul Brooks MD Other Provider Active Start: June 01, 2025 Dr. Ruel Mondragon MD Other Provider Active Start: June 01, 2025 Dr. Tyson Reece MD Other Provider Active Star t: June 01, 2025 Dr. Julian Monsivais DO Other Provider Active Start : June 01, 2025 Dr. Juvenal Hedrick MD Other Provider Active Sta rt: June 01, 2025 Dr. Kentrell Cottrell MD Other Provider Active St art: June 01, 2025 Dr. Jj Ragland MD Other Provider Active S tart: June 01, 2025 Dr. Kassy Shipman MD Other Provider Active Start: June 01, 2025 Dr. Sadi Andrade MD Other Provider Active Start : June 01, 2025 Dr. Frankie Conway MD Other Provider Active Start: June 01, 2025 Dr. Jimi Rdz MD Other Provider Active Start : June 01, 2025 Dr. Yeimi Allen MD Other Provider Active Star t: June 01, 2025 Dr. Nixon Kitchen MD Other Provider Active Sta rt: June 01, 2025 Dr. Starr Amaya MD Other Provider Active Sta rt: June 01, 2025 Dr. Brad Mclean MD Other Provider Active Star t: June 01, 2025 Dr. Pancho Rios MD Other Provider Active St art: June 01, 2025 Dr. Phi Watson MD Other Provider Active Star t: June 01, 2025 Dr. Errol Nicholas DO Other Provider Active St art: June 01, 2025 Dr. Kira Silva MD Other Provider Active Start: June 01, 2025 Dr. Gabrielle Nickerson MD Other Provider Active St art: June 01, 2025 Dr. Mariano Glasgow DO Other Provider Active Start: June 01, 2025 Dr. Floyd Bernal MD Other Provider Active Star t: June 01, 2025 Dr. Mike Juarez MD Other Provider Active Sta rt: June 01, 2025 Dr. Yanet Zhou MD Attending Provider Active Start: June 01, 2025 Dr. Yanet Zhou MD Other Provider Active St art: June 01, 2025 Team Status: Active Member Role/Relationship Status Dates Dr. Sabrina Duran DO Primary Care Provider Active Start: June 01, 2025 Dr. Dar Hunt MD Emergency Provider Active Sta rt: June 01, 2025 Dr. Matt Acevedo DO Admit Provider Active Star t: June 01, 2025 Dr. Matt Acevedo DO Other Provider Active Star t: June 01, 2025 Dr. Ziggy Shelton MD Other Provider Active Sta rt: June 01, 2025 Dr. Jeffery Mcrae DO Other Provider Active St art: June 01, 2025 Swetha Asif NP-C Other Provider Active Start : June 01, 2025 Nayely Sarkar NP-C Other Provider Active St art: June 01, 2025 ESPERANZA [place] Other Provider Active Star t: June 01, 2025 Dr. Saul Brooks MD Other Provider Active Start: June 01, 2025 Dr. Ruel Mondragon MD Other Provider Active Start: June 01, 2025 Dr. Tyson Reece MD Other Provider Active Star t: June 01, 2025 Dr. Julian Monsivais DO Other Provider Active Start : June 01, 2025 Dr. Juvenal Hedrick MD Other Provider Active Sta rt: June 01, 2025 Dr. Kentrell Cottrell MD Other Provider Active St art: June 01, 2025 Dr. Jj Ragland MD Other Provider Active S tart: June 01, 2025 Dr. Kassy Shipman MD Other Provider Active Start: June 01, 2025 Dr. Sadi Andrade MD Other Provider Active Start : June 01, 2025 Dr. Frankie Conway MD Other Provider Active Start: June 01, 2025 Dr. Jimi Rdz MD Other Provider Active Start : June 01, 2025 Dr. Yeimi Allen MD Other Provider Active Star t: June 01, 2025 Dr. Nixon Kitchen MD Other Provider Active Sta rt: June 01, 2025 Dr. Starr Amaya MD Other Provider Active Sta rt: June 01, 2025 Dr. Brad Mclean MD Other Provider Active Star t: June 01, 2025 Dr. Pancho Rios MD Other Provider Active St art: June 01, 2025 Dr. Phi Watson MD Other Provider Active Star t: June 01, 2025 Dr. Errol Nicholas , DO Other Provider Active St art: June 01, 2025 Dr. Kira Silva MD Other Provider Active Start: June 01, 2025 Dr. Gabrielle Nickerson MD Other Provider Active St art: June 01, 2025 Dr. Mariano Glasgow DO Other Provider Active Start: June 01, 2025 Dr. Floyd Bernal MD Other Provider Active Star t: June 01, 2025 Dr. Mike Juarez MD Other Provider Active Sta rt: June 01, 2025 Dr. aYnet Zhou MD Other Provider Active St art: June 01, 2025 Dr. Eloisa More MD Attending Provider Active Start: June 01, 2025 Dr. Eloisa More MD Other Provider Active Start: June 01, 2025 Dr. Puja Almeida MD Other Provider Active Start: June 01, 2025 Team Status: Active Member Role/Relationship Status Dates Dr. Sabrina Duran DO Primary Care Provider Active Start: June 02, 2025 Dr. Dar Hunt MD Emergency Provider Active Sta rt: June 02, 2025 Dr. Matt Acevedo , Admit Provider Active Star t: June 02, 2025 Dr. Matt Acevedo DO Other Provider Active Star t: June 02, 2025 Dr. Ziggy Shelton MD Other Provider Active Sta rt: June 02, 2025 Dr. Jeffery Mcrae , Other Provider Active St art: June 02, 2025 MARTINE Hernandez Other Provider Active Start : June 02, 2025 MARTINE Briceño Other Provider Active St art: June 02, 2025 ESPERANZA [place] Other Provider Active Star t: June 02, 2025 Dr. Saul Brooks MD Other Provider Active Start: June 02, 2025 Dr. Ruel Mondragon MD Other Provider Active Start: June 02, 2025 Dr. Tyson Reece MD Other Provider Active Star t: June 02, 2025 Dr. Julian Monsivais DO Other Provider Active Start : June 02, 2025 Dr. Juvenal Hedrick MD Other Provider Active Sta rt: June 02, 2025 Dr. Kentrell Cottrell MD Other Provider Active St art: June 02, 2025 Dr. Jj Ragland MD Other Provider Active S tart: June 02, 2025 Dr. Kassy Shipman MD Other Provider Active Start: June 02, 2025 Dr. Sadi Andrade MD Other Provider Active Start : June 02, 2025 Dr. Frankie Conway MD Other Provider Active Start: June 02, 2025 Dr. Jimi Rdz MD Other Provider Active Start : June 02, 2025 Dr. Yeimi Allen MD Other Provider Active Star t: June 02, 2025 Dr. Nixon Kitchen MD Other Provider Active Sta rt: June 02, 2025 Dr. Starr Amaya MD Other Provider Active Sta rt: June 02, 2025 Dr. Brad Mclean MD Other Provider Active Star t: June 02, 2025 Dr. Pancho Rios MD Other Provider Active St art: June 02, 2025 Dr. Phi Watson MD Other Provider Active Star t: June 02, 2025 Dr. Errol Nicholas DO Other Provider Active St art: June 02, 2025 Dr. Kira Silva MD Other Provider Active Start: June 02, 2025 Dr. Gabrielle Nickerson MD Other Provider Active St art: June 02, 2025 Dr. Mariano Glasgow DO Other Provider Active Start: June 02, 2025 Dr. Floyd Bernal MD Other Provider Active Star t: June 02, 2025 Dr. Mike Juarez MD Other Provider Active Sta rt: June 02, 2025 Dr. Eloisa More MD Attending Provider Active Start: June 02, 2025 Dr. Eloisa More MD Other Provider Active Start: June 02, 2025 Dr. Puja Almeida MD Other Provider Active Start: June 02, 2025 Dr. Hiren Sanders MD Other Provider Active Start: June 02, 2025 Dr. Yanet Zhou MD Other Provider Active St art: June 02, 2025 Team Status: Active Member Role/Relationship Status Dates Dr. Sabrina Duran DO Primary Care Provider Active Start: June 02, 2025 Dr. Dar Hunt MD Emergency Provider Active Sta rt: June 02, 2025 Dr. Matt Acevedo DO Admit Provider Active Star t: June 02, 2025 Dr. Matt Acevedo , Other Provider Active Star t: June 02, 2025 Dr. Ziggy Shelton MD Other Provider Active Sta rt: June 02, 2025 Dr. Jeffery Mcrae , Other Provider Active St art: June 02, 2025 Swetha Asif NP-C Other Provider Active Start : June 02, 2025 Nayely Sarkar NP-C Other Provider Active St art: June 02, 2025 ESPERANZA [place] Other Provider Active Star t: June 02, 2025 Dr. Saul Brooks MD Other Provider Active Start: June 02, 2025 Dr. Ruel Mondragon MD Other Provider Active Start: June 02, 2025 Dr. Tyson Reece MD Other Provider Active Star t: June 02, 2025 Dr. Julian Monsivais DO Other Provider Active Start : June 02, 2025 Dr. Juvenal Hedrick MD Other Provider Active Sta rt: June 02, 2025 Dr. Kentrell Cottrell MD Other Provider Active St art: June 02, 2025 Dr. Jj Ragland MD Other Provider Active S tart: June 02, 2025 Dr. Kassy Shipman MD Other Provider Active Start: June 02, 2025 Dr. Sadi Andrade MD Other Provider Active Start : June 02, 2025 Dr. Frankie Conway MD Other Provider Active Start: June 02, 2025 Dr. Jimi Rdz MD Other Provider Active Start : June 02, 2025 Dr. Yeimi Allen MD Other Provider Active Star t: June 02, 2025 Dr. Nixon Kitchen MD Other Provider Active Sta rt: June 02, 2025 Dr. Starr Amaya MD Other Provider Active Sta rt: June 02, 2025 Dr. Brad Mclean MD Other Provider Active Star t: June 02, 2025 Dr. Pancho Rios MD Other Provider Active St art: June 02, 2025 Dr. Phi Watson MD Other Provider Active Star t: June 02, 2025 Dr. Errol Nicholas , DO Other Provider Active St art: June 02, 2025 Dr. Kira Silva MD Other Provider Active Start: June 02, 2025 Dr. Gabrielle Nickerson MD Other Provider Active St art: June 02, 2025 Dr. Mariano Glasgow , Other Provider Active Start: June 02, 2025 Dr. Floyd Bernal MD Other Provider Active Star t: June 02, 2025 Dr. Mike Juarez MD Other Provider Active Sta rt: June 02, 2025 Dr. Yanet Zhou MD Other Provider Active St art: June 02, 2025 Dr. Eloisa More MD Other Provider Active Start: June 02, 2025 Dr. Puja Almeida MD Attending Provider Activ e Start: June 02, 2025 Dr. Puja Almeida MD Other Provider Active Start: June 02, 2025 Team Status: Active Member Role/Relationship Status Dates Dr. Sabrina Duran DO Primary Care Provider Active Start: June 02, 2025 Dr. Dar Hunt MD Emergency Provider Active Sta rt: June 02, 2025 Dr. Matt Acevedo DO Admit Provider Active Star t: June 02, 2025 Dr. Matt Acevedo DO Other Provider Active Star t: June 02, 2025 Dr. Ziggy Shelton MD Other Provider Active Sta rt: June 02, 2025 Dr. Jeffery Mcrae , Other Provider Active St art: June 02, 2025 MARTINE Hernandez Other Provider Active Start : June 02, 2025 MARTINE Briceño Other Provider Active St art: June 02, 2025 ESPERANZA [place] Other Provider Active Star t: June 02, 2025 Dr. Saul Brooks MD Other Provider Active Start: June 02, 2025 Dr. Ruel Mondragon MD Other Provider Active Start: June 02, 2025 Dr. yTson Reece MD Other Provider Active Star t: June 02, 2025 Dr. Julian Monsivais , Other Provider Active Start : June 02, 2025 Dr. Juvenal Hedrick MD Other Provider Active Sta rt: June 02, 2025 Dr. Kentrell Cottrell MD Other Provider Active St art: June 02, 2025 Dr. Jj Ragland MD Other Provider Active S tart: June 02, 2025 Dr. Kassy Shipman MD Other Provider Active Start: June 02, 2025 Dr. Sadi Andrade MD Other Provider Active Start : June 02, 2025 Dr. Frankie Conway MD Other Provider Active Start: June 02, 2025 Dr. Jimi Rdz MD Other Provider Active Start : June 02, 2025 Dr. Yeimi Allen MD Other Provider Active Star t: June 02, 2025 Dr. Nixon Kitchen MD Other Provider Active Sta rt: June 02, 2025 Dr. Starr Amaya MD Other Provider Active Sta rt: June 02, 2025 Dr. Brad Mclean MD Other Provider Active Star t: June 02, 2025 Dr. Pancho Rios MD Other Provider Active St art: June 02, 2025 Dr. Phi Watson MD Other Provider Active Star t: June 02, 2025 Dr. Errol Nicholas DO Other Provider Active St art: June 02, 2025 Dr. Kira Silva MD Other Provider Active Start: June 02, 2025 Dr. Gabrielle Nickerson MD Other Provider Active St art: June 02, 2025 Dr. Mariano Glasgow DO Other Provider Active Start: June 02, 2025 Dr. Floyd Bernal MD Other Provider Active Star t: June 02, 2025 Dr. Mike Juarez MD Other Provider Active Sta rt: June 02, 2025 Dr. Yanet Zhou MD Attending Provider Active Start: June 02, 2025 Dr. Yanet Zhou MD Other Provider Active St art: June 02, 2025 Dr. Eloisa More MD Other Provider Active Start: June 02, 2025 Dr. Puja Almeida MD Other Provider Active Start: June 02, 2025 Team Status: Active Member Role/Relationship Status Dates Dr. Sabrina Duran DO Primary Care Provider Active Start: June 03, 2025 Dr. Dar Hunt MD Emergency Provider Active Sta rt: June 03, 2025 Dr. Matt Acevedo , Admit Provider Active Star t: June 03, 2025 Dr. Matt Acevedo , Other Provider Active Star t: June 03, 2025 Dr. Ziggy Shelton MD Other Provider Active Sta rt: June 03, 2025 Dr. Jeffery Mcrae , Other Provider Active St art: June 03, 2025 Swetha Asif NP-C Other Provider Active Start : June 03, 2025 Nayely Sarkar NP-C Other Provider Active St art: June 03, 2025 [place]ERANZA [place] Other Provider Active Star t: June 03, 2025 Dr. Saul Brooks MD Other Provider Active Start: June 03, 2025 Dr. Ruel Mondragon MD Other Provider Active Start: June 03, 2025 Dr. Tyson Reece MD Other Provider Active Star t: June 03, 2025 Dr. Julian Monsivais DO Other Provider Active Start : June 03, 2025 Dr. Juvenal Hedrick MD Other Provider Active Sta rt: June 03, 2025 Dr. Kentrell Cottrell MD Other Provider Active St art: June 03, 2025 Dr. Jj Ragland MD Other Provider Active S tart: June 03, 2025 Dr. Kassy Shipman MD Other Provider Active Start: June 03, 2025 Dr. Sadi Andrade MD Other Provider Active Start : June 03, 2025 Dr. Frankie Conway MD Other Provider Active Start: June 03, 2025 Dr. Jimi Rdz MD Other Provider Active Start : June 03, 2025 Dr. Yeimi Allen MD Other Provider Active Star t: June 03, 2025 Dr. Nixon Kitchen MD Other Provider Active Sta rt: June 03, 2025 Dr. Starr Amaya MD Other Provider Active Sta rt: June 03, 2025 Dr. Brad Mclean MD Other Provider Active Star t: June 03, 2025 Dr. Pancho Rios MD Other Provider Active St art: June 03, 2025 Dr. Phi Watson MD Other Provider Active Star t: June 03, 2025 Dr. Errol Dhesi , DO Other Provider Active St art: June 03, 2025 Dr. Kiar Silva MD Other Provider Active Start: June 03, 2025 Dr. Gabrielle Nickerson MD Other Provider Active St art: June 03, 2025 Dr. Mariano Glasgow , Other Provider Active Start: June 03, 2025 Dr. Floyd Bernal MD Other Provider Active Star t: June 03, 2025 Dr. Mike Juarez MD Other Provider Active Sta rt: June 03, 2025 Dr. Yanet Zhou MD Attending Provider Active Start: June 03, 2025 Dr. Yanet Zhou MD Other Provider Active St art: June 03, 2025 Dr. Eloisa More MD Other Provider Active Start: June 03, 2025 Dr. Puja Almeida MD Other Provider Active Start: June 03, 2025 Team Status: Active Member Role/Relationship Status Dates Dr. Sabrina Duran DO Primary Care Provider Active Start: June 03, 2025 Dr. Dar Hunt MD Emergency Provider Active Sta rt: June 03, 2025 Dr. Matt Acevedo DO Admit Provider Active Star t: June 03, 2025 Dr. Matt Acevedo , Other Provider Active Star t: June 03, 2025 Dr. Ziggy Shelton MD Other Provider Active Sta rt: June 03, 2025 Dr. Jeffery Mcrae , Other Provider Active St art: June 03, 2025 Swetha Asif NP-C Other Provider Active Start : June 03, 2025 Nayely Sarkar NP-C Other Provider Active St art: June 03, 2025 ESPERANZA [place] Other Provider Active Star t: June 03, 2025 Dr. Saul Brooks MD Other Provider Active Start: June 03, 2025 Dr. Ruel Mondragon MD Other Provider Active Start: June 03, 2025 Dr. Tyson Reece MD Other Provider Active Star t: June 03, 2025 Dr. Julian Mosnivais , Other Provider Active Start : June 03, 2025 Dr. Juvenal Hedrick MD Other Provider Active Sta rt: June 03, 2025 Dr. Kentrell Cottrell MD Other Provider Active St art: June 03, 2025 Dr. Jj Ragland MD Other Provider Active S tart: June 03, 2025 Dr. Kassy Shipman MD Other Provider Active Start: June 03, 2025 Dr. Sadi Andrade MD Other Provider Active Start : June 03, 2025 Dr. Frankie Conway MD Other Provider Active Start: June 03, 2025 Dr. Jimi Rdz MD Other Provider Active Start : June 03, 2025 Dr. Yeimi Allen MD Other Provider Active Star t: June 03, 2025 Dr. Nixon Kitchen MD Other Provider Active Sta rt: June 03, 2025 Dr. Starr Amaya MD Other Provider Active Sta rt: June 03, 2025 Dr. Brad Mclean MD Other Provider Active Star t: June 03, 2025 Dr. Pancho Rios MD Other Provider Active St art: June 03, 2025 Dr. Phi Watson MD Other Provider Active Star t: June 03, 2025 Dr. Errol Nicholas DO Other Provider Active St art: June 03, 2025 Dr. Kira Silva MD Other Provider Active Start: June 03, 2025 Dr. Gabrielle Nickerson MD Other Provider Active St art: June 03, 2025 Dr. Mariano Glasgow DO Other Provider Active Start: June 03, 2025 Dr. Floyd Bernal MD Other Provider Active Star t: June 03, 2025 Dr. Mike Juarez MD Other Provider Active Sta rt: June 03, 2025 Dr. Yanet Zhou MD Other Provider Active St art: June 03, 2025 Dr. Eloisa More MD Other Provider Active Start: June 03, 2025 Dr. Puja Almeida MD Attending Provider Activ e Start: June 03, 2025 Dr. Puja Almeida MD Other Provider Active Start: June 03, 2025 Team Status: Active Member Role/Relationship Status Dates Dr. Sabrina Duran DO Primary Care Provider Active Start: June 04, 2025 Dr. Dar Hunt MD Emergency Provider Active Sta rt: June 04, 2025 Dr. Matt Acevedo DO Admit Provider Active Star t: June 04, 2025 Dr. Matt Acevedo DO Other Provider Active Star t: June 04, 2025 Dr. Ziggy Shelton MD Other Provider Active Sta rt: June 04, 2025 Dr. Jeffery Mcrae , Other Provider Active St art: June 04, 2025 Swetha Asif NP-C Other Provider Active Start : June 04, 2025 MARTINE Briceño Other Provider Active St art: June 04, 2025 ESPERANZA [place] Other Provider Active Star t: June 04, 2025 Dr. Saul Brooks MD Other Provider Active Start: June 04, 2025 Dr. Ruel Mondragon MD Other Provider Active Start: June 04, 2025 Dr. Tyson Reece MD Other Provider Active Star t: June 04, 2025 Dr. Julian Monsivais DO Other Provider Active Start : June 04, 2025 Dr. Juvenal Hedrick MD Other Provider Active Sta rt: June 04, 2025 Dr. Kentrell Cottrell MD Other Provider Active St art: June 04, 2025 Dr. Jj Ragland MD Other Provider Active S tart: June 04, 2025 Dr. Ksasy Shipman MD Other Provider Active Start: June 04, 2025 Dr. Sadi Andrade MD Other Provider Active Start : June 04, 2025 Dr. Frankie Conway MD Other Provider Active Start: June 04, 2025 Dr. Jimi Rdz MD Other Provider Active Start : June 04, 2025 Dr. Yeimi Allen MD Other Provider Active Star t: June 04, 2025 Dr. Nixon Kitchen MD Other Provider Active Sta rt: June 04, 2025 Dr. Starr Amaya MD Other Provider Active Sta rt: June 04, 2025 Dr. Brad Mclean MD Other Provider Active Star t: June 04, 2025 Dr. Pancho Rios MD Other Provider Active St art: June 04, 2025 Dr. Phi Watson MD Other Provider Active Star t: June 04, 2025 Dr. Errol Nicholas DO Other Provider Active St art: June 04, 2025 Dr. Kira Silva MD Other Provider Active Start: June 04, 2025 Dr. Gabrielle Nickerson MD Other Provider Active St art: June 04, 2025 Dr. Mariano Glasgow DO Other Provider Active Start: June 04, 2025 Dr. Floyd Bernal MD Other Provider Active Star t: June 04, 2025 Dr. Mike Juarez MD Other Provider Active Sta rt: June 04, 2025 Dr. Yanet Zhou MD Other Provider Active St art: June 04, 2025 Dr. Eloisa More MD Other Provider Active Start: June 04, 2025 Dr. Puja Almeida MD Other Provider Active Start: June 04, 2025 Dr. Irena Jameson MD Attending Provider Active Start: June 04, 2025 Team Status: Active Member Role/Relationship Status Dates Dr. Sabrina Duran , Primary Care Provider Active Start: June 04, 2025 Dr. Dar Hunt MD Emergency Provider Active Sta rt: June 04, 2025 Dr. Matt Acevedo , Admit Provider Active Star t: June 04, 2025 Dr. Matt Acevedo , Other Provider Active Star t: June 04, 2025 Dr. Ziggy Shelton MD Other Provider Active Sta rt: June 04, 2025 Dr. Jeffery Mcrae , Other Provider Active St art: June 04, 2025 Swetha Asif NP-C Other Provider Active Start : June 04, 2025 MARTINE Briceño Other Provider Active St art: June 04, 2025 ESPERANZA [place] Other Provider Active Star t: June 04, 2025 Dr. Saul Brooks MD Other Provider Active Start: June 04, 2025 Dr. Ruel Mondragon MD Other Provider Active Start: June 04, 2025 Dr. Tyson Reece MD Other Provider Active Star t: June 04, 2025 Dr. Julian Monsivais DO Other Provider Active Start : June 04, 2025 Dr. Juvenal Hedrick MD Other Provider Active Sta rt: June 04, 2025 Dr. Kentrell Cottrell MD Other Provider Active St art: June 04, 2025 Dr. Jj Ragland MD Other Provider Active S tart: June 04, 2025 Dr. Kassy Shipman MD Other Provider Active Start: June 04, 2025 Dr. Sadi Andrade MD Other Provider Active Start : June 04, 2025 Dr. Frankie Conway MD Other Provider Active Start: June 04, 2025 Dr. Jimi Rdz MD Other Provider Active Start : June 04, 2025 Dr. Yeimi Allen MD Other Provider Active Star t: June 04, 2025 Dr. Nixon Kitchen MD Other Provider Active Sta rt: June 04, 2025 Dr. Starr Amaya MD Other Provider Active Sta rt: June 04, 2025 Dr. Brad Mclean MD Other Provider Active Star t: June 04, 2025 Dr. Pancho Rios MD Other Provider Active St art: June 04, 2025 Dr. Phi Watson MD Other Provider Active Star t: June 04, 2025 Dr. Errol Nicholas , DO Other Provider Active St art: June 04, 2025 Dr. Kira Silva MD Other Provider Active Start: June 04, 2025 Dr. Gabrielle Nickerson MD Other Provider Active St art: June 04, 2025 Dr. Mariano Glasgow , Other Provider Active Start: June 04, 2025 Dr. Floyd Bernal MD Other Provider Active Star t: June 04, 2025 Dr. Mike Juarez MD Other Provider Active Sta rt: June 04, 2025 Dr. Eloisa More MD Attending Provider Active Start: June 04, 2025 Dr. Eloisa More MD Other Provider Active Start: June 04, 2025 Dr. Puja Almeida MD Other Provider Active Start: June 04, 2025 Dr. Hiren Sanders MD Other Provider Active Start: June 04, 2025 Dr. Yanet Zhou MD Other Provider Active St art: June 04, 2025 Team Status: Active Member Role/Relationship Status Dates Dr. Sabrina Duran DO Primary Care Provider Active Start: June 05, 2025 Dr. Dar Hunt MD Emergency Provider Active Sta rt: June 05, 2025 Dr. Matt Acevedo , Admit Provider Active Star t: June 05, 2025 Dr. Matt Acevedo , Other Provider Active Star t: June 05, 2025 Dr. Ziggy Shelton MD Other Provider Active Sta rt: June 05, 2025 Dr. Jeffery Mcrae , Other Provider Active St art: June 05, 2025 Swetha Asif NP-[place] Other Provider Active Start : June 05, 2025 MARTINE Briceño Other Provider Active St art: June 05, 2025 ESPERANZA [place] Other Provider Active Star t: June 05, 2025 Dr. Saul Brooks MD Other Provider Active Start: June 05, 2025 Dr. Ruel Mondragon MD Other Provider Active Start: June 05, 2025 Dr. Tyson Reece MD Other Provider Active Star t: June 05, 2025 Dr. Julian Monsivais DO Other Provider Active Start : June 05, 2025 Dr. Juvenal Hedrick MD Other Provider Active Sta rt: June 05, 2025 Dr. Kentrell Cottrell MD Other Provider Active St art: June 05, 2025 Dr. Jj Ragland MD Other Provider Active S tart: June 05, 2025 Dr. Kassy Shipman MD Other Provider Active Start: June 05, 2025 Dr. Sadi Andrade MD Other Provider Active Start : June 05, 2025 Dr. Frankie Conway MD Other Provider Active Start: June 05, 2025 Dr. Jimi Rdz MD Other Provider Active Start : June 05, 2025 Dr. Yeimi Allen MD Other Provider Active Star t: June 05, 2025 Dr. Nixon Kitchen MD Other Provider Active Sta rt: June 05, 2025 Dr. Starr Amaya MD Other Provider Active Sta rt: June 05, 2025 Dr. Brad Mclean MD Other Provider Active Star t: June 05, 2025 Dr. Pancho Rios MD Other Provider Active St art: June 05, 2025 Dr. Phi Watson MD Other Provider Active Star t: June 05, 2025 Dr. Errol Nicholas DO Other Provider Active St art: June 05, 2025 Dr. Kira Silva MD Other Provider Active Start: June 05, 2025 Dr. Gabrielle Nickerson MD Other Provider Active St art: June 05, 2025 Dr. Mariano Glasgow DO Other Provider Active Start: June 05, 2025 Dr. Floyd Bernal MD Other Provider Active Star t: June 05, 2025 Dr. Mike Juarez MD Other Provider Active Sta rt: June 05, 2025 Dr. Eloisa More MD Attending Provider Active Start: June 05, 2025 Dr. Eloisa More MD Other Provider Active Start: June 05, 2025 Dr. Puja Almeida MD Other Provider Active Start: June 05, 2025 Dr. Hiren Sanders MD Other Provider Active Start: June 05, 2025 Dr. Yanet Zhou MD Other Provider Active St art: June 05, 2025 Team Status: Active Member Role/Relationship Status Dates Dr. Sabrina Duran DO Primary Care Provider Active Start: June 05, 2025 Dr. Dar Hunt MD Emergency Provider Active Sta rt: June 05, 2025 Dr. Matt Acevedo DO Admit Provider Active Star t: June 05, 2025 Dr. Matt Acevedo DO Other Provider Active Star t: June 05, 2025 Dr. Ziggy Shelton MD Other Provider Active Sta rt: June 05, 2025 Dr. Jeffery Mcrae , Other Provider Active St art: June 05, 2025 Swetha Asif NP-C Other Provider Active Start : June 05, 2025 MARTINE Briceño Other Provider Active St art: June 05, 2025 ESPERANZA [place] Other Provider Active Star t: June 05, 2025 Dr. Saul Brooks MD Other Provider Active Start: June 05, 2025 Dr. Ruel Mondragon MD Other Provider Active Start: June 05, 2025 Dr. Tyson Reece MD Other Provider Active Star t: June 05, 2025 Dr. Julian Monsivais DO Attending Provider Active S tart: June 05, 2025 Dr. Julian Monsivais DO Other Provider Active Start : June 05, 2025 Dr. Juvenal Hedrick MD Other Provider Active Sta rt: June 05, 2025 Dr. Kentrell Cottrell MD Other Provider Active St art: June 05, 2025 Dr. Jj Ragland MD Other Provider Active S tart: June 05, 2025 Dr. Kassy Shipman MD Other Provider Active Start: June 05, 2025 Dr. Sadi Andrade MD Other Provider Active Start : June 05, 2025 Dr. Frankie Conway MD Other Provider Active Start: June 05, 2025 Dr. Jimi Rdz MD Other Provider Active Start : June 05, 2025 Dr. Yeimi Allen MD Other Provider Active Star t: June 05, 2025 Dr. Nixon Kitchen MD Other Provider Active Sta rt: June 05, 2025 Dr. Starr Amaya MD Other Provider Active Sta rt: June 05, 2025 Dr. Brad Mclean MD Other Provider Active Star t: June 05, 2025 Dr. Pancho Rios MD Other Provider Active St art: June 05, 2025 Dr. Phi Watson MD Other Provider Active Star t: June 05, 2025 Dr. Errol Nicholas , Other Provider Active St art: June 05, 2025 Dr. Kira Silva MD Other Provider Active Start: June 05, 2025 Dr. Gabrielle Nickerson MD Other Provider Active St art: June 05, 2025 Dr. Mariano Glasgow DO Other Provider Active Start: June 05, 2025 Dr. Floyd Bernal MD Other Provider Active Star t: June 05, 2025 Dr. Mike Juarez MD Other Provider Active Sta rt: June 05, 2025 Dr. Eloisa More MD Other Provider Active Start: June 05, 2025 Dr. Puja Almeida MD Other Provider Active Start: June 05, 2025 Dr. Hiren Sanders MD Other Provider Active Start: June 05, 2025 Dr. Yanet Zhou MD Other Provider Active St art: June 05, 2025 Team Status: Active Member Role/Relationship Status Dates Dr. Sabrina Duran DO Primary Care Provider Active Start: June 05, 2025 Dr. Dar Hunt MD Emergency Provider Active Sta rt: June 05, 2025 Dr. Matt Acevedo DO Admit Provider Active Star t: June 05, 2025 Dr. Matt Acevedo DO Other Provider Active Star t: June 05, 2025 Dr. Ziggy Shelton MD Other Provider Active Sta rt: June 05, 2025 Dr. Jeffery Mcrae , Other Provider Active St art: June 05, 2025 Swetha Asif , CEREAL CHEMIST-C Other Provider Active Start : June 05, 2025 MARTINE Briceño Other Provider Active St art: June 05, 2025 [place]ERANZA [place] Other Provider Active Star t: June 05, 2025 Dr. Saul Brooks MD Other Provider Active Start: June 05, 2025 Dr. Ruel Mondragon MD Other Provider Active Start: June 05, 2025 Dr. Tyson Reece MD Other Provider Active Star t: June 05, 2025 Dr. Julian Monsivais DO Other Provider Active Start : June 05, 2025 Dr. Juvenal Hedrick MD Other Provider Active Sta rt: June 05, 2025 Dr. Kentrell Cottrell MD Other Provider Active St art: June 05, 2025 Dr. Jj Ragland MD Other Provider Active S tart: June 05, 2025 Dr. Kassy Shipman MD Other Provider Active Start: June 05, 2025 Dr. Sadi Andrade MD Other Provider Active Start : June 05, 2025 Dr. Frankie Conway MD Other Provider Active Start: June 05, 2025 Dr. Jimi Rdz MD Other Provider Active Start : June 05, 2025 Dr. Yeimi Allen MD Other Provider Active Star t: June 05, 2025 Dr. Nixon Kitchen MD Other Provider Active Sta rt: June 05, 2025 Dr. Starr Amaya MD Other Provider Active Sta rt: June 05, 2025 Dr. Brad Mclean MD Other Provider Active Star t: June 05, 2025 Dr. Pancho Rios MD Other Provider Active St art: June 05, 2025 Dr. Phi Watson MD Other Provider Active Star t: June 05, 2025 Dr. Errol Nicholas DO Other Provider Active St art: June 05, 2025 Dr. Kira Silva MD Other Provider Active Start: June 05, 2025 Dr. Gabrielle Nickerson MD Other Provider Active St art: June 05, 2025 Dr. Mariano Glasgow DO Other Provider Active Start: June 05, 2025 Dr. Floyd Bernal MD Other Provider Active Star t: June 05, 2025 Dr. Mike Juarez MD Other Provider Active Sta rt: June 05, 2025 Dr. Eloisa More MD Other Provider Active Start: June 05, 2025 Dr. Puja Almeida MD Other Provider Active Start: June 05, 2025 Dr. Hiren Sanders MD Attending Provider Active Start: June 05, 2025 Dr. Hiren Sanders MD Other Provider Active Start: June 05, 2025 Dr. Yanet Zhou MD Other Provider Active St art: June 05, 2025 Team Status: Active Member Role/Relationship Status Dates Dr. Sabrina Duran DO Primary Care Provider Active Start: June 06, 2025 Dr. Dar Hunt MD Emergency Provider Active Sta rt: June 06, 2025 Dr. Matt Acevedo DO Admit Provider Active Star t: June 06, 2025 Dr. Matt Acevedo DO Other Provider Active Star t: June 06, 2025 Dr. Ziggy Shelton MD Other Provider Active Sta rt: June 06, 2025 Dr. Jeffery Mcrae DO Other Provider Active St art: June 06, 2025 Swetha Asif NP-C Other Provider Active Start : June 06, 2025 Nayely Sarkar NP-[place] Other Provider Active St art: June 06, 2025 ESPERANZA [place] Other Provider Active Star t: June 06, 2025 Dr. Saul Brooks MD Other Provider Active Start: June 06, 2025 Dr. Ruel Mondragon MD Other Provider Active Start: June 06, 2025 Dr. Tyson Reece MD Other Provider Active Star t: June 06, 2025 Dr. Julian Monsivais DO Attending Provider Active S tart: June 06, 2025 Dr. Julian Monsivais DO Other Provider Active Start : June 06, 2025 Dr. Juvenal Hedrick MD Other Provider Active Sta rt: June 06, 2025 Dr. Kentrell Cottrell MD Other Provider Active St art: June 06, 2025 Dr. Jj Ragland MD Other Provider Active S tart: June 06, 2025 Dr. Kassy Shipman MD Other Provider Active Start: June 06, 2025 Dr. Sadi Andrade MD Other Provider Active Start : June 06, 2025 Dr. Frankie Conway MD Other Provider Active Start: June 06, 2025 Dr. Jimi Rdz MD Other Provider Active Start : June 06, 2025 Dr. Yeimi Allen MD Other Provider Active Star t: June 06, 2025 Dr. Nixon Kitchen MD Other Provider Active Sta rt: June 06, 2025 Dr. Starr Amaya MD Other Provider Active Sta rt: June 06, 2025 Dr. Brad Mclean MD Other Provider Active Star t: June 06, 2025 Dr. Pancho Rios MD Other Provider Active St art: June 06, 2025 Dr. Phi Watson MD Other Provider Active Star t: June 06, 2025 Dr. Errol Nicholas , Other Provider Active St art: June 06, 2025 Dr. Kira Silva MD Other Provider Active Start: June 06, 2025 Dr. Gabrielle Nickerson MD Other Provider Active St art: June 06, 2025 Dr. Mariano Glasgow DO Other Provider Active Start: June 06, 2025 Dr. Floyd Bernal MD Other Provider Active Star t: June 06, 2025 Dr. Mike Juarez MD Other Provider Active Sta rt: June 06, 2025 Dr. Eloisa More MD Other Provider Active Start: June 06, 2025 Dr. Puja Almeida MD Other Provider Active Start: June 06, 2025 Dr. Hiren Sanders MD Other Provider Active Start: June 06, 2025 Dr. Yanet Zhou MD Other Provider Active St art: June 06, 2025 Team Status: Active Member Role/Relationship Status Dates Dr. Sabrina Duran DO Primary Care Provider Active Start: June 06, 2025 Dr. Dar Hunt MD Emergency Provider Active Sta rt: June 06, 2025 Dr. Matt Acevedo DO Admit Provider Active Star t: June 06, 2025 Dr. Matt Acevedo DO Other Provider Active Star t: June 06, 2025 Dr. Ziggy Shelton MD Other Provider Active Sta rt: June 06, 2025 Dr. Jeffery Mcrae , Other Provider Active St art: June 06, 2025 MARTINE Hernandez Other Provider Active Start : June 06, 2025 MARTINE Briceño Other Provider Active St art: June 06, 2025 ESPERANZA [place] Other Provider Active Star t: June 06, 2025 Dr. Saul Brooks MD Other Provider Active Start: June 06, 2025 Dr. Ruel Mondragon MD Other Provider Active Start: June 06, 2025 Dr. Tyson Reece MD Other Provider Active Star t: June 06, 2025 Dr. Julian Monsivais , Other Provider Active Start : June 06, 2025 Dr. Juvenal Hedrick MD Other Provider Active Sta rt: June 06, 2025 Dr. Kentrell Cottrell MD Other Provider Active St art: June 06, 2025 Dr. Jj Ragland MD Other Provider Active S tart: June 06, 2025 Dr. Kassy Shipman MD Other Provider Active Start: June 06, 2025 Dr. Sadi Andrade MD Other Provider Active Start : June 06, 2025 Dr. Frankie Conway MD Other Provider Active Start: June 06, 2025 Dr. Jimi Rdz MD Other Provider Active Start : June 06, 2025 Dr. Yeimi Allen MD Other Provider Active Star t: June 06, 2025 Dr. Nixon Kitchen MD Other Provider Active Sta rt: June 06, 2025 Dr. Starr Amaya MD Other Provider Active Sta rt: June 06, 2025 Dr. Brad Mclean MD Other Provider Active Star t: June 06, 2025 Dr. Pancho Rios MD Other Provider Active St art: June 06, 2025 Dr. Phi Watson MD Other Provider Active Star t: June 06, 2025 Dr. Errol Nicholas DO Other Provider Active St art: June 06, 2025 Dr. Kira Silva MD Other Provider Active Start: June 06, 2025 Dr. Gabrielle Nickerson MD Other Provider Active St art: June 06, 2025 Dr. Mariano Glasgow DO Other Provider Active Start: June 06, 2025 Dr. Floyd Bernal MD Other Provider Active Star t: June 06, 2025 Dr. Mike Juarez MD Other Provider Active Sta rt: June 06, 2025 Dr. Eloisa More MD Other Provider Active Start: June 06, 2025 Dr. Puja Almeida MD Other Provider Active Start: June 06, 2025 Dr. Hiren Sanders MD Attending Provider Active Start: June 06, 2025 Dr. Hiren Sanders MD Other Provider Active Start: June 06, 2025 Dr. Yanet Zhou MD Other Provider Active St art: June 06, 2025 Team Status: Active Member Role/Relationship Status Dates Dr. Sabrina Duran DO Primary Care Provider Active Start: June 06, 2025 Dr. Dar Hunt MD Emergency Provider Active Sta rt: June 06, 2025 Dr. Matt Acevedo DO Admit Provider Active Star t: June 06, 2025 Dr. Matt Acevedo DO Other Provider Active Star t: June 06, 2025 Dr. Ziggy Shelton MD Other Provider Active Sta rt: June 06, 2025 Dr. Jeffery Mcrae DO Other Provider Active St art: June 06, 2025 Swetha Asif NP-C Other Provider Active Start : June 06, 2025 Nayely Sarkar NP-[place] Other Provider Active St art: June 06, 2025 ESPERANZA [place] Other Provider Active Star t: June 06, 2025 Dr. Saul Brooks MD Other Provider Active Start: June 06, 2025 Dr. Ruel Mondragon MD Other Provider Active Start: June 06, 2025 Dr. Tyson Reece MD Other Provider Active Star t: June 06, 2025 Dr. Julian Monsivais DO Other Provider Active Start : June 06, 2025 Dr. Juvenal Hedrick MD Other Provider Active Sta rt: June 06, 2025 Dr. Kentrell Cottrell MD Other Provider Active St art: June 06, 2025 Dr. Jj Ragland MD Other Provider Active S tart: June 06, 2025 Dr. Kassy Shipman MD Other Provider Active Start: June 06, 2025 Dr. Sadi Andrade MD Other Provider Active Start : June 06, 2025 Dr. Frankie Conway MD Other Provider Active Start: June 06, 2025 Dr. Jimi Rdz MD Other Provider Active Start : June 06, 2025 Dr. Yeimi Allen MD Other Provider Active Star t: June 06, 2025 Dr. Nixon Kitchen MD Other Provider Active Sta rt: June 06, 2025 Dr. Starr Amaya MD Other Provider Active Sta rt: June 06, 2025 Dr. Brad Mclean MD Other Provider Active Star t: June 06, 2025 Dr. Pancho Rios MD Other Provider Active St art: June 06, 2025 Dr. Phi Watson MD Other Provider Active Star t: June 06, 2025 Dr. Errol Nicholas , Other Provider Active St art: June 06, 2025 Dr. Kira Silva MD Other Provider Active Start: June 06, 2025 Dr. Gabrielle Nickerson MD Other Provider Active St art: June 06, 2025 Dr. Mariano Glasgow DO Other Provider Active Start: June 06, 2025 Dr. Floyd Bernal MD Other Provider Active Star t: June 06, 2025 Dr. Mike Juarez MD Other Provider Active Sta rt: June 06, 2025 Dr. Eloisa More MD Attending Provider Active Start: June 06, 2025 Dr. Eloisa More MD Other Provider Active Start: June 06, 2025 Dr. Puja Almeida MD Other Provider Active Start: June 06, 2025 Dr. Hiren Sanders MD Other Provider Active Start: June 06, 2025 Dr. Yanet Zhou MD Other Provider Active St art: June 06, 2025 Team Status: Active Member Role/Relationship Status Dates Dr. Sabrina Duran DO Primary Care Provider Active Start: June 07, 2025 Dr. Dar Hunt MD Emergency Provider Active Sta rt: June 07, 2025 Dr. Matt Acevedo DO Admit Provider Active Star t: June 07, 2025 Dr. Matt Acevedo , Other Provider Active Star t: June 07, 2025 Dr. Ziggy Shelton MD Other Provider Active Sta rt: June 07, 2025 Dr. Jeffery Mcrae , Other Provider Active St art: June 07, 2025 MARTINE Hernandez Other Provider Active Start : June 07, 2025 MARTINE Briceño Other Provider Active St art: June 07, 2025 ESPERANZA [place] Other Provider Active Star t: June 07, 2025 Dr. Saul Brooks MD Other Provider Active Start: June 07, 2025 Dr. Ruel Mondragon MD Other Provider Active Start: June 07, 2025 Dr. Tyson Reece MD Other Provider Active Star t: June 07, 2025 Dr. Julian Monsivais DO Other Provider Active Start : June 07, 2025 Dr. Juvenal Hedrick MD Other Provider Active Sta rt: June 07, 2025 Dr. Kentrell Cottrell MD Other Provider Active St art: June 07, 2025 Dr. Jj Ragland MD Other Provider Active S tart: June 07, 2025 Dr. Kassy Shipman MD Other Provider Active Start: June 07, 2025 Dr. Sadi Andrade MD Other Provider Active Start : June 07, 2025 Dr. Frankie Conway MD Other Provider Active Start: June 07, 2025 Dr. Jimi Rdz MD Other Provider Active Start : June 07, 2025 Dr. Yeimi Allen MD Other Provider Active Star t: June 07, 2025 Dr. Nixon Kitchen MD Other Provider Active Sta rt: June 07, 2025 Dr. Starr Amaya MD Other Provider Active Sta rt: June 07, 2025 Dr. Brad Mclean MD Other Provider Active Star t: June 07, 2025 Dr. Pancho Rios MD Other Provider Active St art: June 07, 2025 Dr. Phi Watson MD Other Provider Active Star t: June 07, 2025 Dr. Errol Nicholas DO Other Provider Active St art: June 07, 2025 Dr. Kira Silva MD Other Provider Active Start: June 07, 2025 Dr. Gabrielle Nickerson MD Other Provider Active St art: June 07, 2025 Dr. Mariano Glasgow DO Other Provider Active Start: June 07, 2025 Dr. Floyd Bernal MD Other Provider Active Star t: June 07, 2025 Dr. Mike Juarez MD Other Provider Active Sta rt: June 07, 2025 Dr. Eloisa More MD Other Provider Active Start: June 07, 2025 Dr. Puja Almeida MD Other Provider Active Start: June 07, 2025 Dr. Hiren Sanders MD Attending Provider Active Start: June 07, 2025 Dr. Hiren Sanders MD Other Provider Active Start: June 07, 2025 Dr. Yanet Zhou MD Other Provider Active St art: June 07, 2025 Team Status: Active Member Role/Relationship Status Dates Dr. Sabrina Duran , Primary Care Provider Active Start: June 08, 2025 Dr. Dar Hunt MD Emergency Provider Active Sta rt: June 08, 2025 Dr. Matt Acevedo DO Admit Provider Active Star t: June 08, 2025 Dr. Matt Acevedo DO Other Provider Active Star t: June 08, 2025 Dr. Ziggy Shelton MD Other Provider Active Sta rt: June 08, 2025 Dr. Jeffery Mcrae , Other Provider Active St art: June 08, 2025 Swetha Asif NP-C Other Provider Active Start : June 08, 2025 Nayely Sarkar NP-[place] Other Provider Active St art: June 08, 2025 ESPERANZA [place] Other Provider Active Star t: June 08, 2025 Dr. Saul Brooks MD Other Provider Active Start: June 08, 2025 Dr. Ruel Mondragon MD Other Provider Active Start: June 08, 2025 Dr. Tyson Reece MD Other Provider Active Star t: June 08, 2025 Dr. Julian Monsivais DO Other Provider Active Start : June 08, 2025 Dr. Juvenal Hedrick MD Other Provider Active Sta rt: June 08, 2025 Dr. Kentrell Cottrell MD Other Provider Active St art: June 08, 2025 Dr. Jj Ragland MD Other Provider Active S tart: June 08, 2025 Dr. Kassy Shipman MD Other Provider Active Start: June 08, 2025 Dr. Sadi Andrade MD Other Provider Active Start : June 08, 2025 Dr. Frankie Conway MD Other Provider Active Start: June 08, 2025 Dr. Jimi Rdz MD Other Provider Active Start : June 08, 2025 Dr. Yeimi Allen MD Other Provider Active Star t: June 08, 2025 Dr. Nixon Kitchen MD Other Provider Active Sta rt: June 08, 2025 Dr. Starr Amaya MD Other Provider Active Sta rt: June 08, 2025 Dr. Brad Mclean MD Other Provider Active Star t: June 08, 2025 Dr. Pancho Rios MD Other Provider Active St art: June 08, 2025 Dr. Phi Watson MD Other Provider Active Star t: June 08, 2025 Dr. Errol Nicholas , Other Provider Active St art: June 08, 2025 Dr. Kira Silva MD Other Provider Active Start: June 08, 2025 Dr. Gabrielle Nickerson MD Other Provider Active St art: June 08, 2025 Dr. Mariano Glasgow DO Other Provider Active Start: June 08, 2025 Dr. Floyd Bernal MD Other Provider Active Star t: June 08, 2025 Dr. Mike Juarez MD Other Provider Active Sta rt: June 08, 2025 Dr. Eloisa More MD Other Provider Active Start: June 08, 2025 Dr. Puja Almeida MD Other Provider Active Start: June 08, 2025 Dr. Hiren Sanders MD Attending Provider Active Start: June 08, 2025 Dr. Hiren Sanders MD Other Provider Active Start: June 08, 2025 Dr. Yanet Zhou MD Other Provider Active St art: June 08, 2025 Team Status: Active Member Role/Relationship Status Dates Dr. Sabrina Duran DO Primary Care Provider Active Start: June 09, 2025 Dr. Dar Hunt MD Emergency Provider Active Sta rt: June 09, 2025 Dr. Matt Acevedo DO Admit Provider Active Star t: June 09, 2025 Dr. Matt Acevedo DO Other Provider Active Star t: June 09, 2025 Dr. Ziggy Shelton MD Other Provider Active Sta rt: June 09, 2025 Dr. Jeffery Mcrae , Other Provider Active St art: June 09, 2025 MARTINE Hernandez Other Provider Active Start : June 09, 2025 MARTINE Briceño Other Provider Active St art: June 09, 2025 ESPERANZA [place] Other Provider Active Star t: June 09, 2025 Dr. Saul Brooks MD Other Provider Active Start: June 09, 2025 Dr. Ruel Mondragon MD Other Provider Active Start: June 09, 2025 Dr. Tyson Reece MD Other Provider Active Star t: June 09, 2025 Dr. Julian Monsivais DO Other Provider Active Start : June 09, 2025 Dr. Juvenal Hedrick MD Other Provider Active Sta rt: June 09, 2025 Dr. Kentrell Cottrell MD Other Provider Active St art: June 09, 2025 Dr. Jj Ragland MD Other Provider Active S tart: June 09, 2025 Dr. Kassy Shipman MD Other Provider Active Start: June 09, 2025 Dr. Sadi Andrade MD Other Provider Active Start : June 09, 2025 Dr. Frankie Conway MD Other Provider Active Start: June 09, 2025 Dr. Jimi Rdz MD Other Provider Active Start : June 09, 2025 Dr. Yeimi Allen MD Other Provider Active Star t: June 09, 2025 Dr. Nixon Kitchen MD Other Provider Active Sta rt: June 09, 2025 Dr. Starr Amaya MD Other Provider Active Sta rt: June 09, 2025 Dr. Brad Mclean MD Other Provider Active Star t: June 09, 2025 Dr. Pancho Rios MD Other Provider Active St art: June 09, 2025 Dr. Phi Watson MD Other Provider Active Star t: June 09, 2025 Dr. Errol Nicholas DO Other Provider Active St art: June 09, 2025 Dr. Kira Silva MD Other Provider Active Start: June 09, 2025 Dr. Gabrielle Nickerson MD Other Provider Active St art: June 09, 2025 Dr. Mariano Glasgow DO Other Provider Active Start: June 09, 2025 Dr. Floyd Bernal MD Other Provider Active Star t: June 09, 2025 Dr. Mike Juarez MD Other Provider Active Sta rt: June 09, 2025 Dr. Eloisa More MD Other Provider Active Start: June 09, 2025 Dr. Puja Almeida MD Other Provider Active Start: June 09, 2025 Dr. Hiren Sanders MD Attending Provider Active Start: June 09, 2025 Dr. Hiren Sanders MD Other Provider Active Start: June 09, 2025 Dr. Yanet Zhou MD Other Provider Active St art: June 09, 2025 Team Status: Active Member Role/Relationship Status Dates Dr. Sabrina Duran DO Primary Care Provider Active Start: June 10, 2025 Dr. Dar Hunt MD Emergency Provider Active Sta rt: June 10, 2025 Dr. Matt Acevedo DO Admit Provider Active Star t: June 10, 2025 Dr. Matt Acevedo DO Other Provider Active Star t: June 10, 2025 Dr. Ziggy Shelton MD Attending Provider Active Start: June 10, 2025 Dr. Ziggy Shelton MD Other Provider Active Sta rt: June 10, 2025 Dr. Jeffery Mcrae DO Other Provider Active St art: June 10, 2025 Swetha Asif NP-C Other Provider Active Start : June 10, 2025 MARTINE Briceño Other Provider Active St art: June 10, 2025 ESPERANZA [place] Other Provider Active Star t: June 10, 2025 Dr. Saul Brooks MD Other Provider Active Start: June 10, 2025 Dr. Ruel Mondragon MD Other Provider Active Start: June 10, 2025 Dr. Tyson Reece MD Other Provider Active Star t: June 10, 2025 Dr. Julian Monsivais DO Other Provider Active Start : June 10, 2025 Dr. Juvenal Hedrick MD Other Provider Active Sta rt: June 10, 2025 Dr. Kentrell Cottrell MD Other Provider Active St art: June 10, 2025 Dr. Jj Ragland MD Other Provider Active S tart: June 10, 2025 Dr. Kassy Shipman MD Other Provider Active Start: June 10, 2025 Dr. Sadi Andrade MD Other Provider Active Start : June 10, 2025 Dr. Frankie Conway MD Other Provider Active Start: June 10, 2025 Dr. Jimi Rdz MD Other Provider Active Start : June 10, 2025 Dr. Yeimi Allen MD Other Provider Active Star t: June 10, 2025 Dr. Nixon Kitchen MD Other Provider Active Sta rt: June 10, 2025 Dr. Starr Amaya MD Other Provider Active Sta rt: June 10, 2025 Dr. Brad Mclean MD Other Provider Active Star t: June 10, 2025 Dr. Pancho Rios MD Other Provider Active St art: June 10, 2025 Dr. Phi Watson MD Other Provider Active Star t: June 10, 2025 Dr. Errol Nicholas , Other Provider Active St art: June 10, 2025 Dr. Kira Silva MD Other Provider Active Start: June 10, 2025 Dr. Gabrielle Nickerson MD Other Provider Active St art: June 10, 2025 Dr. Mariano Glasgow DO Other Provider Active Start: June 10, 2025 Dr. Floyd Bernal MD Other Provider Active Star t: June 10, 2025 Dr. Mike Juarez MD Other Provider Active Sta rt: June 10, 2025 Dr. Eloisa More MD Other Provider Active Start: June 10, 2025 Dr. Puja Almeida MD Other Provider Active Start: June 10, 2025 Dr. Yanet Zhou MD Other Provider Active St art: June 10, 2025 Dr. Hiren Sanders MD Other Provider Active Start: June 10, 2025 Team Status: Active Member Role/Relationship Status Dates Dr. Sabrina Duran DO Primary Care Provider Active Start: June 11, 2025 Dr. Dar Hunt MD Emergency Provider Active Sta rt: June 11, 2025 Dr. Matt Acevedo DO Admit Provider Active Star t: June 11, 2025 Dr. Matt Acevedo DO Other Provider Active Star t: June 11, 2025 Dr. Ziggy Shelton MD Attending Provider Active Start: June 11, 2025 Dr. Ziggy Shelton MD Other Provider Active Sta rt: June 11, 2025 Dr. Jeffery Mcrae , Other Provider Active St art: June 11, 2025 MARTINE Hernandez Other Provider Active Start : June 11, 2025 MARTINE Briceño Other Provider Active St art: June 11, 2025 ESPERANZA [place] Other Provider Active Star t: June 11, 2025 Dr. Saul Brooks MD Other Provider Active Start: June 11, 2025 Dr. Ruel Mondragon MD Other Provider Active Start: June 11, 2025 Dr. Tyson Reece MD Other Provider Active Star t: June 11, 2025 Dr. Julian Monsivais DO Other Provider Active Start : June 11, 2025 Dr. Juvenal Hedrick MD Other Provider Active Sta rt: June 11, 2025 Dr. Kentrell Cottrell MD Other Provider Active St art: June 11, 2025 Dr. Jj Ragland MD Other Provider Active S tart: June 11, 2025 Dr. Kassy Shipman MD Other Provider Active Start: June 11, 2025 Dr. Sadi Andrade MD Other Provider Active Start : June 11, 2025 Dr. Frankie Conway MD Other Provider Active Start: June 11, 2025 Dr. Jimi Rdz MD Other Provider Active Start : June 11, 2025 Dr. Yeimi Allen MD Other Provider Active Star t: June 11, 2025 Dr. Nixon Kitchen MD Other Provider Active Sta rt: June 11, 2025 Dr. Starr Amaya MD Other Provider Active Sta rt: June 11, 2025 Dr. Brad Mclean MD Other Provider Active Star t: June 11, 2025 Dr. Pancho Rios MD Other Provider Active St art: June 11, 2025 Dr. Phi Watson MD Other Provider Active Star t: June 11, 2025 Dr. Errol Nicholas DO Other Provider Active St art: June 11, 2025 Dr. Kira Silva MD Other Provider Active Start: June 11, 2025 Dr. Gabrielle Nickerson MD Other Provider Active St art: June 11, 2025 Dr. Mariano Glasgow DO Other Provider Active Start: June 11, 2025 Dr. Floyd Bernal MD Other Provider Active Star t: June 11, 2025 Dr. Mike Juarez MD Other Provider Active Sta rt: June 11, 2025 Dr. Eloisa More MD Other Provider Active Start: June 11, 2025 Dr. Puja Almeida MD Other Provider Active Start: June 11, 2025 Dr. Yanet Zhou MD Other Provider Active St art: June 11, 2025 Dr. Hiren Sanders MD Other Provider Active Start: June 11, 2025 Stereo Equipment Installer Relationship Specialty Start Date End Date RaSabrina hazel Eddi [address] [place] [id number] PCP - General Family Medicine 06/12/25 David Ortega MD [address] [place], [place] [id number] Consulting Physician Gynecologic Oncology 06/13/25 Stereo Equipment Installer Relationship Specialty Start Date End Date RayaseminSabrina [address] [place] [phone] PCP - General Family Medicine 06/12/25 David Ortega MD [address] [place], [place] [phone] Consulting Physician Gynecologic Oncology 06/13/25 Stereo Equipment Installer Relationship Specialty Start Date End Date Sabrina Duran [address] [place] [id number] PCP - General Family Medicine 06/12/25 David Ortega MD [address] [place], [place] [phone] Consulting Physician Gynecologic Oncology 06/13/25 Stereo Equipment Installer Relationship Specialty Start Date End Date Sabrina Duran [address] [place] [id number] PCP - General Family Medicine 06/12/25 David Ortega MD [address] [place] [address] Consulting Physician Gynecologic Oncology 06/13/25 Stereo Equipment Installer Relationship Specialty Start Date End Date Sabrina Duran [address] [place] [id number] PCP - General Family Medicine 06/12/25 David Ortega MD [address] [facility] [address] [place], [place] [phone] Consulting Physician Gynecologic Oncology 06/13/25 Goals (unrecognized section and content) Goals may be documented in a n alternate sectionGoals may be documented in an alternate sectionGoals may be documented in an alternate section Reason for Visit (unrecogniz ed section and content) Reason Onset Date Comments Care Coordination 06/25/2025 Reason Onset Date Comments Appointment Request 07/01/2025 Scheduled Active and Recently Administ ered Medications (unrecognized section and content) Medication Order 06/27/2025 06/28/2025 06/29/2025 atorvastatin (Lipitor) tablet 20 mg 20 mg, Oral, Nightly, First dose on Wed06/12/25 at 0000, Substituted for simvastatin (Zocor). 2011 (Given - Provider: Dhruv Metz RN) 1114 (NOV Hold - Provider: Automatic Transfer Provider - Reason: Patient not available)1523 (NOV Unhold - Provider: Automatic Transfer Provider)2101 (Given - Provider: Nimo Haley RN) digoxin (Lanoxin) tablet 125 mcg 125 mcg, Oral, Daily, First dose on Wed06/19/25 at 0900 0947 (Given - Provider: Nickolas Strausser, RN) 1014 (Given - Provider: Nickolas Olivares, RN)1114 (NOV Hold - Provider: Automatic Transfer Provider - Reason: Patient not available)1523 (NOV Unhold - Provider: Automatic Transfer Provider) 1021 (Given - Provider: Owen aHll, WES) furosemide (Lasix) injection 40 mg (CANCELED) 40 mg, IntraVENous, Daily, First dose on Wed06/27/25 at 1200 1224 (Given - Provider: Nickolas Olivares, WES) 0913 (Not Given - Provider: Nickolas Olivares RN - Reason: See Provider Order - Comment: Held per Dr Mullins due to patient going to surgery this AM)1114 (NOV Hold - Provider: Automatic Transfer Provider - Reason: Patient not available)152 (NOV Unhold - Provider: Automatic Transfer Provider) 102 (Given - Provider: Owen Hall, WES) melatonin tablet 3 mg 3 mg, Oral, Nightly, First dose on Wed06/12/25 at 0000 2011 (Given - Provider: Dhruv Metz RN) 1114 (NOV Hold - Provider: Automatic Transfer Provider - Reason: Patient not available)152 (NOV Unhold - Provider: Automatic Transfer Provider)210 (Given - Provider: Nimo Haley, WES) metoprolol tartrate (Lopressor) tablet 25 mg 25 mg, Oral, Every 8 hours, First dose (after last modification) on Wed06/20/25 at 0915, Please hold for HR <60 or SBP <100 0457 (Not Given - Provider: Dhruv Metz RN - Reason: Order parameters not met - Comment: HR 56)1228 (Given - Provider: Nickolas Olivares RN)2011 (Given - Provider: Dhruv Metz RN) 0435 (Not Given - Provider: Dhruv Metz RN - Reason: Order parameters not met - Comment: HR 51-60 on monitor)1114 (NOV Hold - Provider: Automatic Transfer Provider - Reason: Patient not available)1200 (Dose Auto Held - Provider: Automatic Transfer Provider)1523 (NOV Unhold - Provider: Automatic Transfer Provider)210 (Given - Provider: Nimo Haley RN) 0503 (Not Given - Provider: Nimo Haley RN - Reason: Order parameters not met)1201 (Given - Provider: Owen Hall, WES) pantoprazole (ProtoNix) EC tablet 40 mg(Linked Group 1) 40 mg, Oral, Nightly, First dose on Wed06/17/25 at 2100, Do not crush, chew, or split. 2011 (Given - Provider: Dhruv Metz RN) 1114 (NOV Hold - Provider: Automatic Transfer Provider - Reason: Patient not available)1523 (NOV Unhold - Provider: Automatic Transfer Provider)2102 (Given - Provider: Nimo Haley, WES) sodium chloride 0.9% (NS) flush 5-40 mL 5-40 mL, IntraVENous, Every 12 hours, First dose on Wed06/12/25 at 0000, For Line Patency: Peripheral IV = 5 mL; Midline or Central Line = 10 mL/lumen. If following IV push medication, administer flush at same rate as the IV push. Flush volume is determined by type of infusion therapy being given. For non-viscous solutions use: Peripheral IV = 5 mL Midline or Central Line = 10 mL/lumen For viscous solutions (i.e. blood components, parenteral nutrition, contrast media, or after obtaining blood sample) use: Peripheral IV = 10 mL Midline or Central Line = 20 mL/lumen 0049 (Given - Provider: Dhruv Metz RN)1228 (Given - Provider: Nickolas Olivares RN) 0048 (Given - Provider: Dhruv Metz RN)1114 (NOV Hold - Provider: Automatic Transfer Provider - Reason: Patient not available)1200 (Dose Auto Held - Provider: Automatic Transfer Provider)1523 (MAR Unhold - Provider: Automatic Transfer Provider) 0132 (Not Given - Provider: Nimo Haley RN - Reason: IV Fluids Infusing)1203 (Given - Provider: Owen Hall, WES) sodium chloride 0.9% (NS) flush 5-40 mL 5-40 mL, IntraVENous, Every 12 hours, First dose on Wed06/12/25 at 1230, For Line Patency: Peripheral IV = 5 mL; Midline or Central Line = 10 mL/lumen. If following IV push medication, administer flush at same rate as the IV push. Flush volume is determined by type of infusion therapy being given. For non-viscous solutions use: Peripheral IV = 5 mL Midline or Central Line = 10 mL/lumen For viscous solutions (i.e. blood components, parenteralnutrition, contrast media, or after obtaining blood sample) use: Peripheral IV = 10 mL Midline or Central Line = 20 mL/lumen 0049 (Given - Provider: Dhruv Metz, RN)1228 (Given - Provider: Nickolas Olivares, RN) 0049 (Given - Provider: Dhruv Metz, WES)1114 (MAR Hold - Provider: Automatic Transfer Provider - Reason: Patient not available)1230 (Dose Auto Held - Provider: Automatic Transfer Provider)1523 (MAR Unhold - Provider: Automatic Transfer Provider) 0132 (Given - Provider: Nimo Haley, RN)1203 (Given - Provider: Owen Hall, WES) stomahesive in petrolatum (ET Mix) Topical, Every 8 hours, First dose on Wed06/13/25 at 1400 0658 (Given - Provider: Dhruv Metz RN)1432 (Given - Provider: Nickolas Olivares, WES)2217 (Given - Provider: Dhruv Metz RN) 0633 (Given - Provider: Dhruv Metz RN)1114 (MAR Hold - Provider: Automatic Transfer Provider - Reason: Patient not available)1400 (Dose Auto Held - Provider: Automatic Transfer Provider)1523 (MAR Unhold - Provider: Automatic Transfer Provider)2102 (Given - Provider: Nimo Haley, WES) 0600 (Canceled Entry - Provider: Automatic Discharge Provider - Comment: Automatically canceled at discontinue of medication order)1411 (Given - Provider: Owen Hall, WES) Continuous Medication Order 06/27/2025 06/28/2025 06/29/2025 lactated Ringer's infusion (CANCELED) 100 mL/hr, IntraVENous, Continuous, Starting on Becky 06/28/25 at 0015 0048 (New Bag - Provider: Dhruv Metz RN)1015 (New Bag - Provider: Nickolas Olivares, RN) 0222 (New Bag - Provider: Nimo Haley, RN)0959 (Stopped - Provider: Owen Hall RN - Comment: [Order ends at this time. Document the following action when infusion is complete: Stopped]) PRN Medication Order 06/27/2025 06/28/2025 06/29/2025 acetaminophen (Tylenol) suppository 650 mg(Linked Group 2) 650 mg, Rectal, Every 6 hours PRN, mild pain (1-3), fever, For temp greater than 100.4 F (38 C), Starting on 06/11/25 at 2351, Administer if oral route cannot be used. Maximum dose of acetaminophen is 4000 mg from all sources in 24 hours. 1114 ([facility] Hold - Provider: Automatic Transfer Provider - Reason: Patient not available)1523 ([facility] Unhold - Provider: Automatic Transfer Provider)1642 (See Alternative - Provider: Nickolas Olivares, WES)2140 (See Alternative - Provider: Nimo Haley RN) acetaminophen (Tylenol) tablet 650 mg(Linked Group 2) 650 mg, Oral, Every 6 hours PRN, mild pain (1-3), fever, For temp greater than 100.4 F (38 C), Starting on 06/11/25 at 2351, Maximum dose of acetaminophen is 4000 mg from all sources in 24 hours. 1114 ([facility] Hold - Provider: Automatic Transfer Provider - Reason: Patient not available)1523 ([facility] Unhold - Provider: Automatic Transfer Provider)1642 (Given - Provider: Nickolas Olivares RN)2140 (Given - Provider: Nimo Haley, WES) levonorgestrel (Liletta) 20.1 MCG/DAY IUD (CANCELED) As needed, Starting on Becky 06/28/25 at 1308, Intraprocedure 1308 (Given - Provider: David Ortega MD - Comment: exp: [id number]) LORazepam (Ativan) injection 0.5 mg 0.5 mg, IntraVENous, Every 6 hours PRN, anxiety, Starting on Becky 06/28/25 at 1012, For IV doses dilute dose with 1ml NS. 1058 (Given - Provider: Nickolas Olivares RN)1114 ([facility] Hold - Provider: Automatic Transfer Provider - Reason: Patient not available)1523 ([facility] Unhold - Provider: Automatic Transfer Provider)2141 (Given - Provider: Nimo Haley RN) metoprolol tartrate (Lopressor) injection 5 mg 5 mg, IntraVENous, Every 6 hours PRN, tachycardia, HR > 120, Starting on Wed06/17/25 at 1559, Hold for SBP<90 1114 (NOV Hold - Provider: Automatic Transfer Provider - Reason: Patient not available)1523 ([facility] Unhold - Provider: Automatic Transfer Provider) ondansetron (Zofran) injection 4 mg(Linked Group 3) 4 mg, IntraVENous, Every 6 hours PRN, nausea, vomiting, Starting on 06/11/25 at 2351, 1st Line. Give IV if patient is unable to take orally. If inadequate response within 60 minutes, proceed to next-line agent or contact provider if no further options ordered. 1114 (NOV Hold - Provider: Automatic Transfer Provider - Reason: Patient not available)1308 (Given - Provider: Zaida Worrell APRN - CONCRETE FORM SETTER)152 ([facility] Unhold - Provider: Automatic Transfer Provider)194 (Given - Provider: Nimo Haley RN) ondansetron ODT (Zofran-ODT) disintegrating tablet 4 mg(Linked Group 3) 4 mg, Oral, Every 8 hours PRN, nausea, vomiting, Starting on Wed06/11/25 at 2351, 1st Line. If inadequate response within 60 minutes, proceed to next-line agent or contact provider if no further options ordered. Patient should allow tablet to dissolve on tongue. Do not remove from blister pack until just before administering. 1114 ([facility] Hold - Provider: Automatic Transfer Provider - Reason: Patient not available)1308 (See Alternative - Provider: Zaida Worrell APRN - CONCRETE FORM SETTER)1523 ([facility] Unhold - Provider: Automatic Transfer Provider)194 (See Alternative - Provider: Nimo Haley RN) polyethylene glycol (PEG) 3350 (Miralax) packet 17 g 17 g, Oral, Daily PRN, constipation, Starting on Wed06/11/25 at 2351, 1st line for treatment of constipation - give scheduled if no bowel movement in past 24 hours. 1114 ([facility] Hold - Provider: Automatic Transfer Provider - Reason: Patient not available)1523 ([facility] Unhold - Provider: Automatic Transfer Provider) 1201 (Given - Provider: Owen Hall RN) sodium chloride 0.9 % infusion 5-250 mL/hr, IntraVENous, PRN, if patient receiving piggyback infusions and maintenance fluids are not ordered OR KVO fluids to protect IV site / prevent frequent line interruptions / long duration, Starting on Wed06/11/25 at 2351, For piggyback infusion, administer at same rate as piggyback for a total of 25 mL. Enter 25 mL into dose field and piggyback rate into rate field of order. If piggyback is infusing at a rate less than 100 mL/hr, enter 25 mL into dose field and 100 mL/hr into rate field of order. For KVO fluids, enter rate of 20 mL/hr or less into rate field of order. 1114 ([facility] Hold - Provider: Automatic Transfer Provider - Reason: Patient not available)1523 ([facility] Unhold - Provider: Automatic Transfer Provider) sodium chloride 0.9 % infusion 5-250 mL/hr, IntraVENous, PRN, if patient receiving piggyback infusions and maintenance fluids are not ordered OR KVO fluids to protect IV site / prevent frequent line interruptions / long duration, Starting on Wed06/12/25 at 1216, For piggyback infusion, administer at same rate as piggyback for a total of 25 mL. Enter 25 mL into dose field and piggyback rate into rate field of order. If piggyback is infusing at a rate less than 100 mL/hr, enter 25 mL into dose field and 100 mL/hr into rate field of order. For KVO fluids, enter rate of 20 mL/hr or less into rate field of order. 1114 ([facility] Hold - Provider: Automatic Transfer Provider - Reason: Patient not available)1523 ([facility] Unhold - Provider: Automatic Transfer Provider) sodium chloride 0.9 % infusion 250 mL/hr, IntraVENous, Administer over 10 Minutes, As needed, For use in priming line prior to transfusion (prime via gravity) and flush line post transfusion, Starting on Wed06/19/25 at 0230, For 1 dose, For use in priming line prior to transfusion (prime via gravity) and flush line post transfusion ONLY. Discontinue once line has been cleared of remaining blood product. 1114 ([facility] Hold - Provider: Automatic Transfer Provider - Reason: Patient not available)1523 ([facility] Unhold - Provider: Automatic Transfer Provider) sterile water irrigation solution (CANCELED) As needed, Starting on Becky 06/28/25 at 1309, Intraprocedure 1309 (Given - Provider: David Ortega MD - Comment: water basin, for instruments) stomahesive in petrolatum (ET Mix) Topical, PRN, dry skin, Starting on Wed06/13/25 at 1011 1114 (MAR Hold - Provider: Automatic Transfer Provider - Reason: Patient not available)1523 (NOV Unhold - Provider: Automatic Transfer Provider) Linked Groups Order Group 1: pantoprazole (ProtoNix) EC tablet 40 mgJump to med 40 mg, Oral, Nightly, First dose on Wed06/17/25 at 2100, Do not crush, chew, or split. Or pantoprazole (ProtoNix) 40 mg in sodium chloride (PF) 0.9 % 10 mL injection (CANCELED) 40 mg, IntraVENous, Administer over 2 Minutes, Nightly, First dose on Wed06/17/25 at 2100, Give only if unable to tolerate po. Group 2: acetaminophen (Tylenol) tablet 650 mgJump to med 650 mg, Oral, Every 6 hours PRN, mild pain (1-3), fever, For temp greater than 100.4 F (38 C), Starting on Wed06/11/25 at 2351, Maximum dose of acetaminophen is 4000 mg from all sources in 24 hours. Or acetaminophen (Tylenol) suppository 650 mgJump to med 650 mg, Rectal, Every 6 hours PRN, mild pain (1-3), fever, For temp greater than 100.4 F (38 C), Starting on Wed06/11/25 at 2351, Administer if oral route cannot be used. Maximum dose of acetaminophen is 4000 mg from all sources in 24 hours. Group 3: ondansetron ODT (Zofran-ODT) disintegrating tablet 4 mgJump to med 4 mg, Oral, Every 8 hours PRN, nausea, vomiting, Starting on Wed06/11/25 at 2351, 1st Line. If inadequate response within 60 minutes, proceed to next-line agent or contact provider if no further options ordered. Patient should allow tablet to dissolve on tongue. Do not remove from blister pack until just before administering. Or ondansetron (Zofran) injection 4 mgJump to med 4 mg, IntraVENous, Every 6 hours PRN, nausea, vomiting, Starting on Wed06/11/25 at 2351, 1st Line. Give IV if patient is unable to take orally. If inadequate response within 60 minutes, proceed to next-line agent or contact provider if no further options ordered. INFORMATION SOURCE (unrecogn ized section and content) DATE CREATED AUTHOR 07/01/2025 [facility] DATE CREATED AUTHOR AUTHOR'S ORGANIZ ATION 07/07/2025 [facility] DATE CREATED AUTHOR AUTHOR'S ORGANIZ ATION 07/31/2025 [facility] FOR RECORDS PERTAINING TO PATIENTS WHO ARE OR HAVE BEEN ENROLLED IN A CHEMICAL DEPENDENCY/SUBSTANCEABUSE PROGRAM, SOME INFORMATION MAY BE OMITTED. This clinical summary was aggregated from multiple sources. Caution should be exercised in using it in the provision of clinical care. This summary normalizes information from multiple sources, and as a consequence, information in this document may materially change the coding, format and clinical context of patient data. In addition, data may be omitted in some cases. CLINICAL DECISIONS SHOULD BE BASED ON THE PRIMARY CLINICAL RECORDS. [employer] provides no warranty or guarantee of the accuracy or completeness of information in this document.
--- NOTE | 2025-08-19 13:59 | EKG12_ITS ---
Test Reason : general Blood Pressure : */* mmHG Vent. Rate : 66 BPM Atrial Rate : * BPM P-R Int : * ms QRS Dur : 76 ms QT Int : 372 ms P-R-T Axes : * -25 156 degrees QTcB Int : 389 ms Atrial fibrillation Left ventricular hypertrophy with repolarization abnormality ( R in aVL ) Abnormal ECG Confirmed by MARIUSZ CA, SHERRIE ([id number]), associate entertainment editor ROB MUNIZ ([id number]) on 08/20/2025 1:06:01 PM Referred By: Confirmed By: SHERRIE VEE MD
--- NOTE | 2025-08-19 13:59 | CT_ITS ---
PROCEDURE: BRAIN/HEAD WITHOUT CONTRAST 08/19/2025 REASON FOR EXAM: ALTERED MENTAL STATUS, LEANING TOWARDS THE LEFT TECHNIQUE: Procedure Code: CTBR Modality: CT Procedure: BRAIN/HEAD WITHOUT CONTRAST Coronal and Sagittal reconstruction series were provided. One or more dose reduction techniques were used (e.g., Automated exposure control, adjustment of the mA and/or kV according to patient size, use of iterative reconstruction technique. RADIATION DOSE SUMMARY: CTDlvol: - mGy DLP: - mGycm COMPARISON: None. FINDINGS: Brain: No acute territorial infarction. No acute intracranial hemorrhage. No mass-effect or midline shift. Diffuse white matter hypodensities which are nonspecific but likely due to chronic small-vessel ischemia. Parenchymal volume loss consistent with brain atrophy. No ventriculomegaly. The orbits are unremarkable. The craniocervical junction is unremarkable. CSF Spaces: Advanced generalized cerebral atrophy Sinuses/Mastoids: Clear. Bones: No acute bony process CT/Brain/Head without Contrast IMPRESSION: No acute intracranial abnormalities. Reading Location: [id number]
--- NOTE | 2025-08-19 14:01 | CT_ITS ---
PROCEDURE: CTA HEAD AND NECK W/ CONTRAST 08/19/2025 REASON FOR EXAM: AMS, LEANING TOWARDS LEFT TECHNIQUE: Procedure Code: CTCTA.HDNCK Modality: CT Procedure: CTA HEAD AND NECK W/ CONTRAST Multiplanar Sagittal and Coronal images were obtained. CONTRAST: Isovue 370 VOLUME: 100 mL One or more dose reduction techniques were used (e.g., Automated exposure control, adjustment of the mA and/or kV according to patient size, use of iterative reconstruction technique). RADIATION DOSE SUMMARY: CTDlvol: 16.12 mGy DLP: 1307.35 mGycm COMPARISON: None. FINDINGS: Aortic Arch: Unremarkable. Brachiocephalic and Subclavians: Patent. RIGHT Carotid: Right CCA: Patent. Right ICA: Patent. Right ECA: Patent. LEFT Carotid: Left CCA: Patent. Left ICA: Patent. Left ECA: Patent. Vertebrals: Patent with the left vertebral artery is dominant. RIGHT Vertebral: Patent. LEFT Vertebral: Patent. Anatomy: [place] anatomy is normal. Aneurysm or avm: No intracranial aneurysms or large vascular malformations are identified. 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 The right anterior cerebral artery is unremarkable. Middle cerebral arteries: Unremarkable. Basilar artery: Mild dolichoectasia. No significant stenosis. Posterior cerebral arteries: Unremarkable. Other major branches of the posterior circulation: Unremarkable. Major venous structures: Unremarkable. Other findings: Neck: No lymphadenopathy. Lungs: Lung apices are clear. Bones: No acute bony abnormalities. CT/CTA Head AND Neck W/ Contrast IMPRESSION: No hemodynamically significant stenosis in the head and neck. 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 The right anterior cerebral artery is unremarkable. Reading Location[facility]
--- NOTE | 2025-08-19 14:07 | EX.ED.DYSGE1 ---
HPI History of Present Illness Chief Complaint: General Illness Narrative Narrative: Chief complaint and HPI: 60-year-old female with past medical history CVA with right-sided deficits, atrial fibrillation not on anticoagulation, CHF presents with brother for evaluation of change in mental status. Brother states that the patient has not been acting herself for the past couple days. He states that she is less talkative, talking softer, and is leaning towards the left side. She is not actively herself with mental status changes that he cannot explain really. He states she has had a decreased appetite. States that she is currently on antibiotics for a possible tooth infection from the dentist. Patient is a very poor historian. She only answers yes or no questions and even hesitates with answers. She denies any fever, chills, shortness of breath, chest pain, abdominal pain, nausea, vomiting, dysuria. States she may have some ear pain. Review of systems: See HPI Medications: As listed on the chart Allergies: As listed on the chart PFSH: Per chart Vital signs: As listed on the chart. Reviewed. Physical exam: Gen: A&O x3, slow to respond, speaking softly, NAD, leans her upper body towards the left Head: Normocephalic, atraumatic Eyes: No sclera icterus, conjunctiva clear, PERRL, EOMI ENT: TMs clear BL, moist mucous membranes, posterior oropharynx unremarkable, uvula midline, tonsils not enlarged, no dental infection or abscess visualized, missing teeth with some dental caries, tolerating secretions, no Wilberto or submandibular swelling. No sinus tenderness. No facial asymmetry. Neck: Trachea midline, full range of motion. CV: RRR, no murmurs, no peripheral edema Resp: Lungs CTA BL, no w/r/c GI: Abd soft, non-distended, non-tender, no r/r/g : Normal external genitalia without rash Musc: Right arm contracture, left upper extremity with full range of motion, bilateral lower extremity weakness- patient's baseline strength per son, cannot get patient to partake in ataxia testing Skin: Warm, dry, no rash Psych: Intermittently cooperative [facility] Medical History Hypertension CVA (cerebral vascular accident) Home Medications Medication Instructions Recorded Last Taken Type amlodipine 10 mg tablet 10 mg PO DAILY 05/21/25 05/20/25 History carvedilol 3.125 mg tablet 3.125 mg PO BID 05/21/25 05/20/25 History hydralazine 100 mg tablet 100 mg PO TID 05/21/25 05/20/25 History simvastatin 20 mg tablet 20 mg PO DAILY 05/21/25 05/20/25 History Allergy/AdvReac Type Severity Reaction Status Date / Time No Known Allergies Allergy Verified 08/19/25 13:12 Family History unable to obtain Surgical History unable to obtain Social History Smoking Status: Never smoker EXAM Physical Exam Const Vital Signs: 08/19/25 13:12 08/19/25 15:10 08/19/25 17:00 Temperature 98 F Temperature Source Temporal Pulse Rate 80 88 70 Respiratory Rate 18 16 18 Blood Pressure 140/108 H 136/100 H 157/77 H Blood Pressure Mean 118 112 103 Pulse Ox 98 98 96 Oxygen Delivery Method Room Air Room Air MDM MDM MDM Narrative Medical decision making narrative: 60-year-old female with past medical history CVA with right-sided deficits, atrial fibrillation not on anticoagulation, CHF presents with brother for evaluation of change in mental status. Brother states that the patient has not been acting herself for the past couple days. He states that she is less talkative, talking softer, and is leaning towards the left side. She is not actively herself with mental status changes that he cannot explain really. He states she has had a decreased appetite. States that she is currently on antibiotics for a possible tooth infection from the dentist. Patient is a very poor historian. On presentation, patient in no acute distress. Vitals are stable other than mild hypertension. See physical exam findings. On chart review, patient was admitted to our hospital and discharged on 06/11/2025 for severe anemia secondary to uterine cancer/endometrial adenocarcinoma and acute hypoxic respiratory failure requiring BiPAP and intubation/diuresis. She was ultimately transferred to [facility] for her bleeding. She had an echocardiogram with a EF of 60%. Differential diagnosis includes but is not limited to CVA, electrolyte abnormality, dehydration, viral illness, UTI, pneumonia, ACS. NS bolus ordered. Laboratory workup ordered. CBC without leukocytosis. Patient has baseline anemia of 10.5. Platelet show baseline thrombocytosis of 503. CMP shows baseline CKD. No transaminitis. Magnesium unremarkable. Lactic acid unremarkable. UA with pyuria but negative for bacteria. Will send for culture. Rocephin ordered. Troponin 47. Previous was 35. Will get delta. CT of the brain shows no acute intracranial abnormalities. Chest x-ray was reviewed. Added on azithromycin for possible community-acquired pneumonia. Delta 46. Patient not having any chest pain. CT of the head is negative for any significant stenosis. There is a 6 mm saccular aneurysm at the A2 segment of the left anterior cerebral artery. At this point in time, no clear etiology for patient's mental status changes. Given that she is leaning to the left with history of CVA, I do think she would benefit from a CVA rule out with MRI brain. Could be early UTI versus early pneumonia. Patient was discussed with the hospitalist who accepted admission. EKG: Interpreted by me/EM physician: EKG shows atrial fibrillation. Heart rate 66. Nonspecific changes. Diagnostic: Interpreted by me/EM physician: Chest x-ray shows bilateral opacities. Possible pneumonia. Radiology in agreement although cannot rule out pulmonary edema. Impression: 1. Mental status changes with leaning to the left, rule out CVA 2. Pyuria 3. Possible pneumonia Lab Data Labs: Laboratory Results - last 24 hr 08/19/25 08/19/25 08/19/25 13:27 14:10 14:22 WBC 9.5 RBC 4.79 Hgb 10.5 L Hct 36.0 L MCV 75.2 L MCH 21.9 L MCHC 29.2 L RDW Std Deviation 47.7 H RDW Coeff of Federico 17.8 H Plt Count 503 H MPV 10.3 Immature Gran % (Auto) 0.200 Neut % (Auto) 75.3 H Lymph % (Auto) 13.5 L [place] % (Auto) 9.0 Eos % (Auto) 1.2 Baso % (Auto) 0.8 Absolute Neuts (auto) 7.1 Absolute Lymphs (auto) 1.28 Nucleated RBC % 0 Sodium 140 Potassium 4.8 Chloride 105 Carbon Dioxide 23.8 Anion Gap 11 BUN 22 H Creatinine 1.47 H Estim Creat Clear Calc 40.04 L Est GFR (MDRD) Non-Af 40 L BUN/Creatinine Ratio 15.1 Glucose 101 H Lactic Acid 1.2 Calcium 8.7 Magnesium 2.2 Total Bilirubin 0.56 AST 29 ALT 8 Alkaline Phosphatase 91 Troponin T High Sens 47 H D Troponin T Hi Sens 2 Hr Total Protein 7.5 Albumin 2.4 L Globulin 5.0 H Albumin/Globulin Ratio 0.5 L Urine Color Yellow Urine Clarity Sl. Cloudy Urine pH 6.0 Ur Specific [place] 1.020 Urine Protein 500 H Urine Glucose (UA) Normal Urine Ketones Negative Urine Occult Blood 150 H Urine Nitrite Negative Urine Bilirubin Negative Urine Urobilinogen 1 H Ur Leukocyte Esterase 25 H Urine RBC 5-10 SEEN Urine WBC 5-10 SEEN Ur Squamous Epith Cells 0 SEEN Amorphous Sediment 2+ URATE Urine Bacteria 0 SEEN Hyaline Casts 5-10 SEEN Urine Mucus 0 SEEN 08/19/25 15:55 WBC RBC Hgb Hct MCV MCH MCHC RDW Std Deviation RDW Coeff of Federico Plt Count MPV Immature Gran % (Auto) Neut % (Auto) Lymph % (Auto) [place] % (Auto) Eos % (Auto) Baso % (Auto) Absolute Neuts (auto) Absolute Lymphs (auto) Nucleated RBC % Sodium Potassium Chloride Carbon Dioxide Anion Gap BUN Creatinine Estim Creat Clear Calc Est GFR (MDRD) Non-Af BUN/Creatinine Ratio Glucose Lactic Acid Calcium Magnesium Total Bilirubin AST ALT Alkaline Phosphatase Troponin T High Sens Troponin T Hi Sens 2 Hr 46 H Total Protein Albumin Globulin Albumin/Globulin Ratio Urine Color Urine Clarity Urine pH Ur Specific [place] Urine Protein Urine Glucose (UA) Urine Ketones Urine Occult Blood Urine Nitrite Urine Bilirubin Urine Urobilinogen Ur Leukocyte Esterase Urine RBC Urine WBC Ur Squamous Epith Cells Amorphous Sediment Urine Bacteria Hyaline Casts Urine Mucus Radiography Diagnostic Testing: Clinical Impression(s) from Imaging Studies Brain CT 08/19/25 13:59 IMPRESSION: No acute intracranial abnormalities. Reading Location: [facility] Head/Neck CTA 08/19/25 14:01 IMPRESSION: No hemodynamically significant stenosis in the head and neck. 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 The right anterior cerebral artery is unremarkable. Reading Location: [id number] Chest X-Ray 08/19/25 15:15 IMPRESSION: Right hilar opacity and left lower lobe opacities may reflect pneumonia or pulmonary edema. Reading Location: [facility] Discharge Plan Triage Chief Complaint: General Illness ED Provider: Anthony Schmidt Dx/Rx/DC Orders Prescriptions: No Action carvedilol 3.125 mg tablet 3.125 mg PO BID amlodipine 10 mg tablet 10 mg PO DAILY simvastatin 20 mg tablet 20 mg PO DAILY hydralazine 100 mg tablet 100 mg PO TID Primary Care Provider: Ann Marie Duran Referrals: Ann Marie Duran DO [Primary Care Provider, Family Practice] Print Language: Micronesian
[2025-08-19] MEDS: 0.9% Normal Saline (1000mL) 1,000 ML 999 ML IV (14:10)
[2025-08-19 14:11] LABS: Hematocrit 36.0 % (37-47); Hemoglobin 10.5 g/dL (12.0-15.0); Immature Granulocytes Count 0.020 X10^3/uL (0.0-0.0); Mean Corp Hgb Conc 29.2 g/dL (32-36); Mean Corpuscular Volume 75.2 fL (81-99); Mean Platelet Vol. 10.3 fl (6.2-12.0); NRBC Flagged by Analyzer 0 % (0-5); Platelet Count 503 K/mm3 (150-450); RBC Distribution Width CV 17.8 % (11.6-14.6); RBC Distribution Width SD 47.7 fl (35.1-43.9); Red Blood Count 4.79 M/mm3 (4.2-5.4); White Blood Count 9.5 K/mm3 (4.4-11.0)
[2025-08-19 14:29] LABS: Mucous, Urine 0 SEEN /hpf (<or=2+); Squamous Epithelial Cells - UA 0 SEEN /hpf (5-10)
[2025-08-19 14:32] LABS: AST(SGOT) 29 U/L (<=31); Alanine Aminotransfer ALT/SGPT 8 U/L (<=34); Albumin, Serum 2.4 g/dL (3.4-4.8); Alkaline Phosphatase 91 U/L (35-104); Anion Gap 11 (5-15); BUN 22 mg/dL (4-19); BUN/Creat Ratio 15.1 RATIO (10-20); Calcium,Total 8.7 mg/dL (7.6-11.0); Carbon Dioxide 23.8 mmol/L (21.0-32.0); Chloride 105 mmol/L (98-108); Estimated Creatinine Clearance 40.04 ml/min (50-250); Globulin 5.0 g/dL (2.2-4.2); Glucose 101 mg/dL (70-99); Magnesium 2.2 mg/dL (1.5-2.2); Potassium 4.8 mmol/L (3.3-5.1); Troponin T High Sensitivity 47 ng/L (<=14)
[2025-08-19 14:32] LABS: Color, Urine Yellow (Yellow); Glucose, Dipstick Normal (Normal); Ketone-Dipstick Negative (Negative); Leukocyte Esterase-Dipstick 25 /ul (Negative); Nitrite-Dipstick Negative (Negative); Occult Blood-Urine 150 /ul (Negative); Protein-Dipstick 500 mg/dl (Negative); Specific Gravity, Urine 1.020 (1.002-1.030); Urine Bilirubin Dipstick Negative (Negative)
[2025-08-19 14:41] LABS: Red Blood Cells-Urine 5-10 SEEN /hpf (0-5)
--- NOTE | 2025-08-19 15:15 | RAD_ITS ---
PROCEDURE: CHEST PA AND LATERAL 08/19/2025 REASON FOR EXAM: ALTERED MENTAL STATUS TECHNIQUE: Procedure Code: RADCXR Modality: DX Procedure: CHEST PA AND LATERAL COMPARISON: 06/02/25 FINDINGS: Right hilar opacity and left lower lobe opacities may reflect pneumonia or pulmonary edema. No pleural effusion or pneumothorax. Cardiac silhouette is within normal limits. No acute fractures. RAD/Chest PA and Lateral IMPRESSION: Right hilar opacity and left lower lobe opacities may reflect pneumonia or pulm onary edema. Reading Location: [id number]
[2025-08-19 16:42] LABS: Troponin T High Sens 2 HR 46 ng/L (<=14)
[2025-08-19] MEDS: Azithromycin 500 MG in 0.9% Normal Saline (250mL Bag) 250 ML 250 MG IV (17:17)
--- NOTE | 2025-08-19 17:27 | PCM.HP.STD ---
HPI - General General Date of Admission: 08/19/25 Date of Service: 08/19/25 Chief Complaint: Altered mentation and decreased functional status HPI Narrative NANCY DELACRUZ, is a 60 F who presented to [facility] ED on 08/19/2025 with altered mentation and decreased functional status. Medical history significant for CVA with right sided deficits, A-fib not on anticoagulation, HFpEF, and CKD stage IIIb. Patient was recently hospitalized here from 05/21-06/11 for severe acute blood loss anemia secondary to vaginal bleeding from a suspected uterine cancer. Hospital course was complicated by acute hypoxic respiratory failure suspected secondary to CHF and pneumonia requiring intubation. She was able to be extubated back to nasal cannula with diuresis and antibiotic treatment. She was then transferred to [facility] on 06/11 for further evaluation for uterine cancer. Reviewed [facility] records. She was hospitalized there from 06/11-06/29. Biopsy confirmed endometrial cancer and plan was for total hysterectomy but hospital course was complicated by new onset A-fib with RVR with worsening respiratory status. They instead did a D&C with IUD placement, and plan is for total hysterectomy in the future. She was not able to be anticoagulated for A-fib due to her acute anemia and concern for precipitated bleeding from endometrial cancer. She was discharged home with home health care. Her brother has been heavily involved in her care, and he noted that she has not been acting like herself for the past few days. She has been intermittently confused and less talkative, and she has not been able to do her normal level of activity. In the ED she was noted to be in controlled A-fib, was otherwise normotensive, afebrile and stable on room air at rest. CBC with hemoglobin 10.5, slightly improved from previous at the beginning of this month. CBC and BMP were otherwise benign. CT brain and CTA head/neck were unremarkable. Chest x-ray showed mild pulmonary edema, was otherwise unremarkable. Given altered mentation and concern for possible stroke, hospitalist was contacted for admission. I saw the patient at bedside in the ED, brother was present. Patient was able to make eye contact with me and was alert and oriented to person and place but not time. She otherwise had difficulty answering other questions for me. No other acute concerns currently. Will be admitted for further management. [facility] Medical History Hypertension CVA (cerebral vascular accident) Home Medications Medication Instructions Recorded Last Taken Type amlodipine 10 mg tablet 10 mg PO DAILY 05/21/25 05/20/25 History carvedilol 3.125 mg tablet 3.125 mg PO BID 05/21/25 05/20/25 History hydralazine 100 mg tablet 100 mg PO TID 05/21/25 05/20/25 History simvastatin 20 mg tablet 20 mg PO DAILY 05/21/25 05/20/25 History metoprolol tartrate 25 mg tablet 25 mg PO Q8 08/19/25 Unknown History Allergy/AdvReac Type Severity Reaction Status Date / Time No Known Allergies Allergy Verified 08/19/25 13:12 Family History unable to obtain Surgical History unable to obtain Social History Smoking Status: Never smoker ROS Review of Systems ROS Unobtainable: due to encephalopathy Vital Signs Vital Signs Vital Signs: 08/19/25 13:12 08/19/25 15:10 08/19/25 17:00 Temperature 98 F Temperature Source Temporal Pulse Rate 80 88 70 Respiratory Rate 18 16 18 Blood Pressure 140/108 H 136/100 H 157/77 H Blood Pressure Mean 118 112 103 Pulse Ox 98 98 96 Oxygen Delivery Method Room Air Room Air Weight Weight: 74.3 kg Body Mass Index (BMI) 27.2 Physical Exam Const alert, no apparent distress and average body habitus Constitutional Narrative: Upper middle-aged female, appears older than stated age, fatigued appearing, alert and oriented to person and place but not time, making appropriate eye contact but not able to answer questions appropriately, otherwise sitting back in bed fairly comfortably and in no acute distress. General Appearance: cooperative and comfortable Orientation / Consciousness: confused HEENT normocephalic, head/scalp atraumatic, hearing grossly normal bilaterally, nasal mucous membranes and turbinates normal and moist oral mucous membranes Eyes PERRL, EOMs intact bilaterally and conjunctivae normal Neck full ROM Chest inspection of chest normal Resp normal respiratory effort, normal air movement, no use of accessory muscles and clear to auscultation bilaterally Cardio no murmurs and peripheral pulses 2+ throughout Cardio Narrative: A-fib, rate controlled. GI normal to inspection, nondistended, normoactive bowel sounds, soft to palpation, non-tender and non-distended Back/Spine normal ROM Extremity Extremity Narrative: Right arm and leg chronic contractures noted. Neuro Neuro Narrative: Chronic right arm and leg contractures noted. No significant left-sided weakness noted. Results Lab / Micro Data 08/19/25 13:27 08/19/25 13:27 Labs: Laboratory Results - last 24 hr 08/19/25 13:27: WBC 9.5, RBC 4.79, Hgb 10.5 L, Hct 36.0 L, MCV 75.2 L, MCH 21.9 L, MCHC 29.2 L, RDW Std Deviation 47.7 H, RDW Coeff of Federico 17.8 H, Plt Count 503 H, MPV 10.3, Immature Gran % (Auto) 0.200, Neut % (Auto) 75.3 H, Lymph % (Auto) 13.5 L, [place] % (Auto) 9.0, Eos % (Auto) 1.2, Baso % (Auto) 0.8, Absolute Neuts (auto) 7.1, Absolute Lymphs (auto) 1.28, Nucleated RBC % 0, Sodium 140, Potassium 4.8, Chloride 105, Carbon Dioxide 23.8, Anion Gap 11, BUN 22 H, Creatinine 1.47 H, Estim Creat Clear Calc 40.04 L, Est GFR (MDRD) Non-Af 40 L, BUN/Creatinine Ratio 15.1, Glucose 101 H, Calcium 8.7, Magnesium 2.2, Total Bilirubin 0.56, AST 29, ALT 8, Alkaline Phosphatase 91, Troponin T High Sens 47 H D, Total Protein 7.5, Albumin 2.4 L, Globulin 5.0 H, Albumin/Globulin Ratio 0.5 L 08/19/25 14:10: Lactic Acid 1.2 08/19/25 14:22: Urine Color Yellow, Urine Clarity Sl. Cloudy, Urine pH 6.0, Ur Specific [place] 1.020, Urine Protein 500 H, Urine Glucose (UA) Normal, Urine Ketones Negative, Urine Occult Blood 150 H, Urine Nitrite Negative, Urine Bilirubin Negative, Urine Urobilinogen 1 H, Ur Leukocyte Esterase 25 H, Urine RBC 5-10 SEEN, Urine WBC 5-10 SEEN, Ur Squamous Epith Cells 0 SEEN, Amorphous Sediment 2+ URATE, Urine Bacteria 0 SEEN, Hyaline Casts 5-10 SEEN, Urine Mucus 0 SEEN 08/19/25 15:55: Troponin T Hi Sens 2 Hr 46 H Micro: Microbiology 08/19/25 14:10 Mucosa - Nose SARS-CoV-2, Influenza & RSV (PCR) - Final Imaging Radiology Impression Brain CT 08/19/25 13:59 IMPRESSION: No acute intracranial abnormalities. Reading Location: [facility] Head/Neck CTA 08/19/25 14:01 IMPRESSION: No hemodynamically significant stenosis in the head and neck. 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 The right anterior cerebral artery is unremarkable. Reading Location: [facility] Chest X-Ray 08/19/25 15:15 IMPRESSION: Right hilar opacity and left lower lobe opacities may reflect pneumonia or pulmonary edema. Reading Location: [facility] Assessment & Plan Assessment/Plan (1) Altered mental status: PLAN: Plan Patient is a 60-year-old female who presented to [facility] ED on 08/19/2025 with altered mentation and decreased functional status. 1. Altered mentation with decreased functional status – Admit under observation status to PCU. Neurology consulted. Unclear etiology but highest concern is for CVA in setting of paroxysmal A-fib not on anticoagulation as below. CT brain and CTA head/neck negative. Hypertensive on admit but otherwise hemodynamically stable on room air. Orders placed per stroke protocol order set. MRI brain without contrast ordered. Lipid panel and A1c ordered. PT/OT/case management consulted. 2. Paroxysmal A-fib not on anticoagulation – Patient developed new onset A-fib during recent prolonged hospitalization, see HPI above. Not able to be anticoagulated due to endometrial cancer with anemia as below. Patient in controlled A-fib on admit. Holding home antihypertensives for permissive hypertension in setting of possible stroke as above. Monitor cardiac telemetry. 3. Endometrial cancer with recent acute blood loss anemia – See HPI for further details. In short, initial hemoglobin 3.6 on admit here in mid April due to vaginal bleeding. Bleeding stabilized here and hemoglobin improved with blood transfusion. She eventually required transfer to [facility] and was biopsy confirmed endometrial cancer. Plan was for hysterectomy but hospital course had complications, so patient had D&C with IUD placement done with plan for hysterectomy in the future. Hemoglobin 10.5 on this admission, continuing to improve from previous. 4. Chronic HFpEF, hypertension, hyperlipidemia – Mild vascular congestion noted on chest x-ray on admit but patient stable on room air at rest, not in CHF exacerbation. Hypertensive to the 150s to 160s on admit. Holding home antihypertensives for permissive hypertension as above. Okay to continue home statin. 5. CKD stage IIIb – Creatinine 1.47 on admit, stable at baseline. 6. History of CVA with residual right-sided deficits – Therapy following as above. 7. Dysphagia – Speech therapy consulted. Patient noted to have dysphagia during prior hospitalization and was placed on a modified diet. Brother was unsure on the details with his modified diet. Will keep patient n.p.o. for now until speech therapy sees her. DVT prophylaxis: SCDs CODE STATUS: Full code, verified Expected disposition: TBD Total clinical time spent by myself addressing the patient's medical issues, reviewing all the data, and collaborating with patient's care team: 82 minutes. Charges/Coding Visit Charges Inpatient E&M: 84027 Init Hosp L3
--- OUTSIDE RECORDS SUMMARY | 2025-08-19 17:56 | XMS RPT_ITS | CCD ---
Author Organization [facility] Care Team Providers Care Chro Name Role Phone Dr. Sabrina Duran DO Primary Care Provider [phone] Dr. Sabrina Duran DO Attending Provider [phone] [place], Dr. Dodge Emergency Provider Dr. Matt Acevedo DO Admit Provider Dr. Matt Acevedo DO Attending Provider Unavailable [facility] Sabrina Duran DO Primary Care Provider Dr. Efren Arevalo MD Attending Provider Dr. Dar Hunt MD Emergency Provider Dr. Matt Acevedo DO Admit Provider Dr. aMtt Acevedo DO Other Provider Dr. Ziggy Shelton MD Attending Provider Nikita [place], Dr. Trinh Other Provider Dr. Jeffery Mcrae DO Other Provider Yefri VAMP MARKER-CSwetha Other Provider Mello VAMP MARKER-CNayely Other Provider Mayra Hutchinson Other Provider [phone] Cecilia [place], Dr. Hughes Other Provider Alanna [place], Dr. Lipscomb Other Provider Chevy [place], Dr. Mehta Other Provider Dr. Julian Monsivais DO Other Provider Ryley [...] Gabriel [place], Dr. Deleon Other Provider [phone] [place], Dr. Yip Other Provider Yu SLAUGHTER, Dr. Norton Other Provider [phone] Shira [place], Dr. Malone Other Provider [phone] [...] Provider Dr. Julian Monsivais DO Attending Provider [phone] Dr. Matt Acevedo DO Attending Provider Clementina DO, Dr. Gil Attending Provider Abelardo [place], Dr. Yanet Hdz Attending Provider Mello FINK-CNayely Attending Provider Argenis [place], Dr. Amin Attending Provider [phone] Juan Pablo [place], Dr. Luo Attending Provider Gisell [place], Dr. Irena Yun Attending Provider Marisabel [place], Dr. Hiren Lerner Attending Provider Roger, Sabrina Montague Primary Care Provider [phone] Shannon [place], David Montague Unavailable Malyasemin, Sabrina Eddi Primary [...] Start: 06-17-2025 End: 06-22-2025 polyethylene glycol 3350 94052 mg powder for oral solution (2 sources) [...] Acute and unspecified renal failure (5 sources) Dhnex-[id number] renal failure; Translations: [Acute kidney failure, unspecified] [...] Absolute Lymph 1.33 X10 3/uL Normal 0.83-4.51 [facility] Comment on above: Performed By: #### L 500.4050, L501.5200, L100.0100, L501.7510 ####[facility] [address] [place], [address] Absolute Neut 6.2 X10 3/uL Normal 2.0-7.7 [facility] Comment on above: Performed By: #### L 500.4050, L501.5200, L100.0100, L501.7510 ####[facility] [address] [place], [address] Basophils/100 WBC (Bld) 0.7 % Normal 0-1 [facility] Comment on above: Performed By: #### L 500.4050, L501.5200, L100.0100, L501.7510 ####[facility] [address] [place], [address] Eosinophils/100 WBC (Bld) 3.1 % Normal 0-5 [facility] Comment on above: Performed By: #### L 500.4050, L501.5200, L100.0100, L501.7510 ####[facility] [address] [place], [address] Erythrocyte distribution width (RBC) [Ratio] 17.3 % High 11.6-14.6 [facility] Comment on above: Performed By: #### L 500.4050, L501.5200, L100.0100, L501.7510 ####[facility] [address] [place], [address] Hematocrit (Bld) [Volume fraction] 31.7 % Low 37-47 [facility] Comment on above: Performed By: #### L 500.4050, L501.5200, L100.0100, L501.7510 ####[facility] [address] [place], [address] Hemoglobin (Bld) [Mass/Vol] 9.2 g/dL Low 12.0-15.0 [facility] Comment on above: Performed By: #### L 500.4050, L501.5200, L100.0100, L501.7510 ####[facility] [address] [place], [address] IG% 0.300 Normal 0.0-0.9 [facility] Comment on above: Result Comment: IG% - Immature Granulocytes (promyelocytes, myelocytes andmetamyelocytes) > 1% indicates that a LEFT SHIFT is Present. Performed By: #### L 500.4050, L501.5200, L100.0100, L501.7510 ####[facility] [address] [place], [address] Lymphocytes/100 WBC (Bld) 15.4 % Low 19-41 [facility] Comment on above: Performed By: #### L 500.4050, L501.5200, L100.0100, L501.7510 ####[facility] [address] [place], [address] MCH (RBC) [Entitic mass] 22.8 pg Low 27.0-32.0 [facility] Comment on above: Performed By: #### L 500.4050, L501.5200, L100.0100, L501.7510 ####[facility] [address] [place], [address] MCHC (RBC) [Mass/Vol] 29.0 g/dL Low 32-36 [facility] Comment on above: Performed By: #### L 500.4050, L501.5200, L100.0100, L501.7510 ####[facility] [address] [place], [address] MCV (RBC) [Entitic vol] 78.7 fL Low 81-99 [facility] Comment on above: Performed By: #### L 500.4050, L501.5200, L100.0100, L501.7510 ####[facility] [address] [place], [address] Monocytes/100 WBC (Bld) 9.1 % Normal 0-10 [facility] Comment on above: Performed By: #### L 500.4050, L501.5200, L100.0100, L501.7510 ####[facility] [address] [place], [address] Neutrophils/100 WBC (Bld) 71.4 % High 47-70 [facility] Comment on above: Performed By: #### L 500.4050, L501.5200, L100.0100, L501.7510 ####[facility] [address] [place], [address] Nucleated RBC (Bld) [#/Vol] 0 10*3/uL Normal 0-5 [facility] Comment on above: Performed By: #### L 500.4050, L501.5200, L100.0100, L501.7510 ####[facility] [address] [place], [address] Platelet mean volume (Bld) [Entitic vol] 10.0 fL Normal 6.2-12.0 [facility] Comment on above: Performed By: #### L 500.4050, L501.5200, L100.0100, L501.7510 ####[facility] [address] [place], [address] Platelets (Bld) [#/Vol] 478 10*3/uL High 150-450 [facility] Comment on above: Performed By: #### L 500.4050, L501.5200, L100.0100, L501.7510 ####[facility] [address] [place], [address] RBC (Bld) [#/Vol] 4.03 10*6/uL Low 4.2-5.4 [facility] Comment on above: Performed By: #### L 500.4050, L501.5200, L100.0100, L501.7510 ####[facility] [address] [place], [address] RDW SD 49.4 fl High 35.1-43.9 [facility] Comment on above: Performed By: #### L 500.4050, L501.5200, L100.0100, L501.7510 ####[facility] [address] [place], [address] WBC (Bld) [#/Vol] 8.6 10*3/uL Normal 4.4-11.0 [facility] Comment on above: Performed By: #### L 500.4050, L501.5200, L100.0100, L501.7510 ####[facility] [address] [place], [address] Comprehensive Metabolic Prof [facility] 07-30-2025 Albumin [Mass/Vol] 2.6 g/dL Low 3.4-4.8 [facility] Comment on above: Performed By: #### L 500.4050, L501.5200, L100.0100, L501.7510 ####[facility] [address] [place], [address] Albumin/Globulin [Mass ratio] 0.6 {ratio} Low 0.9-2.4 [facility] Comment on above: Performed By: #### L 500.4050, L501.5200, L100.0100, L501.7510 ####[facility] [address] [place], [address] ALK PHOS 77 U/L Normal 35-104 [facility] Comment on above: Performed By: #### L 500.4050, L501.5200, L100.0100, L501.7510 ####[facility] [address] [place], [address] ALT [Catalytic activity/Vol] 11 U/L Normal <=34 [facility] Comment on above: Performed By: #### L 500.4050, L501.5200, L100.0100, L501.7510 ####[facility] [address] [place], [address] AST [Catalytic activity/Vol] 16 U/L Normal <=31 [facility] Comment on above: Performed By: #### L 500.4050, L501.5200, L100.0100, L501.7510 ####[facility] [address] [place], [address] Bilirubin [Mass/Vol] 0.43 mg/dL Normal 0.00-1.30 [facility] Comment on above: Performed By: #### L 500.4050, L501.5200, L100.0100, L501.7510 ####[facility] [address] [place], [address] BUN/CRE 16.0 RATIO Normal 10-20 [facility] Comment on above: Performed By: #### L 500.4050, L501.5200, L100.0100, L501.7510 ####[facility] [address] [place], [address] Calcium [Mass/Vol] 8.3 mg/dL Normal 7.6-11.0 [facility] Comment on above: Performed By: #### L 500.4050, L501.5200, L100.0100, L501.7510 ####[facility] [address] [place], [address] Chloride [Moles/Vol] 105 mmol/L Normal 98-108 [facility] Comment on above: Performed By: #### L 500.4050, L501.5200, L100.0100, L501.7510 ####[facility] [address] [place], [address] CO2 [Moles/Vol] 23.7 mmol/L Normal 21.0-32.0 [facility] Comment on above: Performed By: #### L 500.4050, L501.5200, L100.0100, L501.7510 ####[facility] [address] [place], [address] Creatinine [Mass/Vol] 1.37 mg/dL High 0.70-1.20 [facility] Comment on above: Performed By: #### L 500.4050, L501.5200, L100.0100, L501.7510 ####[facility] [address] [place], [address] GAP 11 Normal 5-15 [facility] Comment on above: Performed By: #### L 500.4050, L501.5200, L100.0100, L501.7510 ####[facility] [address] [place], [address] GFR/1.73 sq M.predicted among non-blacks MDRD (S/P/Bld) [Vol rate/Area] 44 mL/min/{1.73_m2} Low >60 [facility] Comment on above: Result Comment: mL/m in/1.73m2 CKD-EPI Creatinine Equation (2020) Performed By: #### L 500.4050, L501.5200, L100.0100, L501.7510 ####[facility] [address] [place], [address] Globulin (S) [Mass/Vol] 4.4 g/dL High 2.2-4.2 [facility] Comment on above: Performed By: #### L 500.4050, L501.5200, L100.0100, L501.7510 ####[facility] [address] [place], [address] Glucose [Mass/Vol] 100 mg/dL High 70-99 [facility] Comment on above: Performed By: #### L 500.4050, L501.5200, L100.0100, L501.7510 ####[facility] [address] [place], [address] Potassium [Moles/Vol] 4.0 mmol/L Normal 3.3-5.1 [facility] Comment on above: Performed By: #### L 500.4050, L501.5200, L100.0100, L501.7510 ####[facility] [address] [place], [address] Sodium [Moles/Vol] 139 mmol/L Normal 133-145 [facility] Comment on above: Performed By: #### L 500.4050, L501.5200, L100.0100, L501.7510 ####[facility] [address] [place], [address] T PROT 7.0 g/dL Normal 5.9-8.4 [facility] Comment on above: Performed By: #### L 500.4050, L501.5200, L100.0100, L501.7510 ####[facility] [address] [place], [address] Urea nitrogen [Mass/Vol] 22 mg/dL High 4-19 [facility] Comment on above: Performed By: #### L 500.4050, L501.5200, L100.0100, L501.7510 ####[facility] [address] [place], [address] Digoxin Levelon 07-30-2025 DIG 1.18 ng/mL Normal 0.00-2.00 [facility] Comment on above: Performed By: #### L 500.4050, L501.5200, L100.0100, L501.7510 ####[facility] [address] [place], [address] Magnesiumon 07-30-2025 Magnesium [Mass/Vol] 2.1 mg/dL Normal 1.5-2.2 [facility] Comment on above: Performed By: #### L 500.4050, L501.5200, L100.0100, L501.7510 ####[facility] [address] [place], [address] [id number] 07-05-2025 [id number] Patient Choice Patient Name: NANCY DELACRUZ Date of : 1965 [facility] 36on 07-01-[address] Trever Byrnes saw this pt during her hospitalization. She was discharged on 06/29. Can you please call her and schedule a s/p hospital follow up with him in the next 2-3 weeks? If no openings can be with EVE. Thanks! Normal [facility] [id number] 06-29-2025 [id number] [facility] [id number] Home Health Care [facility] [address] [facility] [phone] [id number] Patient/Family Choice [facility] [id number] [facility] [id number] [facility] BASIC METABOLIC PANELon 10-0 Anion gap [Moles/Vol] 7 mmol/L Normal 3-13 [facility] Comment on above: Performed By: #### L [id number] ####Kiln Mechanic: NADIA FRENCH ([id number])[id number] [place] [address] Calcium [Mass/Vol] 8.1 mg/dL Low 8.8-10.0 [facility] Comment on above: Performed By: #### L [id number] ####Kiln Mechanic: NADIA FRENCH ([id number])[facility])[address] [place] [address] Chloride [Moles/Vol] 106 mmol/L Normal 98-107 [facility] Comment on above: Performed By: #### L AB15 ####Kiln Mechanic: NADIA FRENCH ([id number])[facility])[address] [place] [address] CO2 [Moles/Vol] 30 mmol/L Normal 23-31 [facility] Comment on above: Performed By: #### L AB15 ####Kiln Mechanic: NADIA FRENCH ([id number])[facility])[address] [place] [address] Creatinine [Mass/Vol] 1.16 mg/dL High 0.57-1.11 [facility] Comment on above: Performed By: #### L [id number] ####Kiln Mechanic: NADIA FRENCH ([id number])[facility])[address] [place] [address] [place] GLOMERULAR FILTRATION RATE ML/MIN/1.73 SQ M.PREDICTED 53.7 mL/min/1.73m*2 Low >60.0 [facility] Comment on above: Result Comment: Calc ulation based on the Chronic Kidney Disease Epidemiology Collaboration (CKD-EPI) equation refit without adjustment for race Performed By: #### L [id number] ####Kiln Mechanic: NADIA FRENCH ([id number])[facility])[address] [place] [address] Glucose [Mass/Vol] 110 mg/dL Normal 82-115 [facility] Comment on above: Performed By: #### L [id number] ####Kiln Mechanic: NADIA FRENCH ([id number])[facility])[address] [place] [address] [place] Potassium [Moles/Vol] 4.6 mmol/L Normal 3.5-5.1 [facility] Comment on above: Result Comment: [facility] potassium values may be up to 0.5 mmol/L lower than serum values. Performed By: #### L [id number] ####Kiln Mechanic: NADIA FRENCH ([id number])[facility])[address] [place] [address] Sodium [Moles/Vol] 143 mmol/L Normal 136-145 [facility] Comment on above: Performed By: #### L [id number] ####Kiln Mechanic: NADIA FRENCH ([id number])[facility] [place] [address] Urea nitrogen [Mass/Vol] 39 mg/dL High 9-[address] [facility] Comment on above: Performed By: #### L [id number] ####Kiln Mechanic: NADIA FRENCH ([id number])[facility] [place] [address] Basic metabolic 1998 panelon 06-29-2025 Anion gap [Moles/Vol] 7 mmol/L 3 - 13 mmol/L [facility] Calcium [Mass/Vol] 8.1 mg/dL Low 8.8 - 10. 0 mg/dL [facility] Chloride [Moles/Vol] 106 mmol/L 98 - 10 7 mmol/L [facility] CO2 [Moles/Vol] 30 mmol/L 23 - 31 mmol/L [facility] Creatinine [Mass/Vol] 1.16 mg/dL High 0.57 - 1.11 mg/dL [facility] GFR/1.73 sq M.predicted (S/P/Bld) [Vol rate/Area] 53.7 mL/min Low - PINF [facility] Glucose [Mass/Vol] 110 mg/dL 82 - 115 mg/dL [facility] Interpretation and review of laboratory results Abnormal [facility] Potassium [Moles/Vol] 4.6 mmol/L 3.5 - 5.1 mmol/L [facility] Sodium [Moles/Vol] 143 mmol/L 136 - 145 mmol/L [facility] Urea nitrogen [Mass/Vol] 39 mg/dL High 9 - 23 mg/dL [facility] CBC W Auto Differential pane l (Bld)on 06-29-2025 Basophils (Bld) [#/Vol] 0.1 10*3/uL 0.0 - 0.2 10*3/uL [facility] Basophils/100 WBC (Bld) 0.7 % 0.0 - 2.0 % [facility] Eosinophils (Bld) [#/Vol] 0.3 10*3/uL 0.0 - 0.5 10*3/uL [facility] Eosinophils/100 WBC (Bld) 2.7 % 0.0 - 6.0 % [facility] Erythrocyte distribution width (RBC) [Ratio] 21 % High 11.5 - 15.0 % [facility] Hematocrit (Bld) [Volume fraction] 28.4 % Low 35.0 - 47.0 % [facility] Hemoglobin (Bld) [Mass/Vol] 8 g/dL Low 11.7 - 16.0 g/dL [facility] Immature granulocytes (Bld) [#/Vol] 0 10*3/uL NINF - 0.1 10*3/uL [facility] Immature granulocytes/100 WBC (Bld) 0.4 % 0.0 - 2.0 % [facility] Interpretation and review of laboratory results Abnormal [facility] Lymphocytes (Bld) [#/Vol] 1.4 10*3/uL 1.0 - 4.3 10*3/uL [facility] Lymphocytes/100 WBC (Bld) 15.6 % 15.0 - 45.0 % [facility] MCH (RBC) [Entitic mass] 23.9 pg Low 26.0 - 34.0 pg [facility] MCHC (RBC) [Mass/Vol] 28.2 % Low 30.5 - 36.0 % [facility] MCV (RBC) [Entitic vol] 84.8 fL 77.0 - 99.0 fL [facility] Monocytes (Bld) [#/Vol] 0.7 10*3/uL 0.0 - 0.9 10*3/uL [facility] Monocytes/100 WBC (Bld) 7.4 % 5.0 - 13.0 % [facility] Neutrophils (Bld) [#/Vol] 6.7 10*3/uL 1.8 - 7.5 10*3/uL [facility] Neutrophils/100 WBC (Bld) 73.2 % 38.0 - 82.0 % [facility] Nucleated RBC/100 WBC (Bld) [Ratio] 0 % [facility] Platelet mean volume (Bld) [Entitic vol] 9.5 fL 9.0 - 12.7 fL [facility] Platelets (Bld) [#/Vol] 398 10*3/uL 140 - 440 10*3/uL [facility] RBC (Bld) [#/Vol] 3.35 10*6/uL Low 3.80 - 5.20 10*6/uL [facility] WBC (Bld) [#/Vol] 9.1 10*3/uL 3.6 - 10.7 10*3/uL [facility] CBC WITH AUTO DIFFERENTIALon 06-29-2025 Basophils (Bld) [#/Vol] 0.1 10*3/uL Normal 0.0-0.[address] [facility] Comment on above: Performed By: #### L [id number] ####Kiln Mechanic: NADIA FRENCH ([id number])[facility])[address] [place] [address] Basophils/100 WBC (Bld) 0.7 % Normal 0.0-2.0 [facility] Comment on above: Performed By: #### L [id number] ####Kiln Mechanic: NADIA FRENCH ([id number])[facility])[address] [place] [address] Eosinophils (Bld) [#/Vol] 0.3 10*3/uL Normal 0.0-0.[address] [facility] Comment on above: Performed By: #### L [id number] ####Kiln Mechanic: NADIA FRENCH ([id number])[facility])[address] [place] [address] Eosinophils/100 WBC (Bld) 2.7 % Normal 0.0-6.[address] [facility] Comment on above: Performed By: #### L [id number] ####Kiln Mechanic: NADIA FRENCH ([id number])[facility])[address] [place] [address] Erythrocyte distribution width (RBC) [Ratio] 21.0 % High 11.5-15.[address] [facility] Comment on above: Performed By: #### L [id number] ####Kiln Mechanic: NADIA FRENCH ([id number])[facility])[address] [place] [address] Hematocrit (Bld) [Volume fraction] 28.4 % Low 35.0-47.0 [facility] Comment on above: Performed By: #### L [id number] ####Kiln Mechanic: NADIA FRENCH ([id number])[facility])[address] [place] [address] Hemoglobin (Bld) [Mass/Vol] 8.0 g/dL Low 11.7-16.0 [facility] Comment on above: Performed By: #### L [id number] ####Kiln Mechanic: NADIA FRENCH ([id number])[facility])[address] [place] [address] IMMATURE GRANS % 0.4 % Normal 0.0-2.0 [facility] Comment on above: Performed By: #### L [id number] ####Kiln Mechanic: NADIA FRENCH ([id number])[address] IMMATURE GRANS ABSOLUTE 0.0 10*3/uL Normal <0.[address] [facility] Comment on above: Performed By: #### L [id number] ####Kiln Mechanic: NADIA FRENCH ([id number])[facility])[address] [place] [address] Lymphocytes (Bld) [#/Vol] 1.4 10*3/uL Normal 1.0-4.[address] [facility] Comment on above: Performed By: #### L [id number] ####Kiln Mechanic: NADIA FRENCH ([id number])[facility])[address] [place] [address] Lymphocytes/100 WBC (Bld) 15.6 % Normal 15.0-45.0 [facility] Comment on above: Performed By: #### L [id number] ####Kiln Mechanic: NADIA FRENCH ([id number])[facility])[address] [place] [address] MCH (RBC) [Entitic mass] 23.9 pg Low 26.0-34.0 [facility] Comment on above: Performed By: #### L [id number] ####Kiln Mechanic: NADIA FRENCH ([id number])[facility])[address] [place] [address] MCHC 28.2 % Low 30.5-36.[address] [facility] Comment on above: Performed By: #### L [id number] ####Kiln Mechanic: NADIA FRENCH ([id number])[facility])[address] [place] [address] MCV (RBC) [Entitic vol] 84.8 fL Normal 77.0-99.0 [facility] Comment on above: Performed By: #### L [id number] ####Kiln Mechanic: NADIA FRENCH ([id number])[facility])[address] [place] [address] Monocytes (Bld) [#/Vol] 0.7 10*3/uL Normal 0.0-0.[address] [facility] Comment on above: Performed By: #### L [id number] ####Kiln Mechanic: NADIA FRENCH ([id number])[facility])[address] [place] [address] Monocytes/100 WBC (Bld) 7.4 % Normal 5.0-13.0 [facility] Comment on above: Performed By: #### L [id number] ####Kiln Mechanic: NADIA FRENCH ([id number])[facility])[address] [place] [address] NEUTROPHILS ABSOLUTE 6.7 10*3/uL Normal 1.8-7.5 [facility] Comment on above: Performed By: #### L [id number] ####Kiln Mechanic: NADIA FRENCH ([id number])[facility])[address] [place] [address] Neutrophils/100 WBC (Bld) 73.2 % Normal 38.0-82.[address] [facility] Comment on above: Performed By: #### L [id number] ####Kiln Mechanic: NADIA FRENCH ([id number])[facility] [address] NRBC 0.0 /100 WBCs Normal 0.0-2.[address] [facility] Comment on above: Performed By: #### L [id number] ####Kiln Mechanic: NADIA FRENCH ([id number])[facility])[address] [place] [address] Platelet mean volume (Bld) [Entitic vol] 9.5 fL Normal 9.0-12.[address] [facility] Comment on above: Performed By: #### L [id number] ####Kiln Mechanic: NADIA FRENCH ([id number])[facility])[address] [place] [address] Platelets (Bld) [#/Vol] 398 10*3/uL Normal 140-440 [facility] [facility] Comment on above: Performed By: #### L [id number] ####Kiln Mechanic: NADIA FRENCH ([id number])[facility])[address] [place] [address] RBC (Bld) [#/Vol] 3.35 10*6/uL Low 3.80-5.[address] [facility] Comment on above: Performed By: #### L [id number] ####Kiln Mechanic: NADIA FRENCH ([id number])[facility])[address] [place] [address] WBC (Bld) [#/Vol] 9.1 10*3/uL Normal 3.6-10.[address] [facility] Comment on above: Performed By: #### L [id number] ####Kiln Mechanic: NADIA FRENCH ([id number])[facility])[address] [place] [address] Nursing Noteon 06-29-2025 Nursing Note Patient/family given discharge paperwork/instructions. IV removed. Medications delivered from [facility] pharmacy. Son at bedside. Transport request in. All questions and concerns addressed. Normal [facility] Progress Noteon 06-29-2025 Progress Note Normal [facility] Progress Note Normal [facility] Progress Note Normal [facility] Progress Note Normal [facility] Progress Note Normal [facility] Progress Note Normal [facility] [id number] 06-28-2025 [id number] Normal [facility] Anesthesia Noteon 06-28-2025 Anesthesia Note Normal [facility] BASIC METABOLIC PANELon 10-0 Anion gap [Moles/Vol] 10 mmol/L Normal 3-13 [facility] Comment on above: Performed By: #### L [id number] ####Kiln Mechanic: NADIA FRENCH ([id number])[facility])[address] [place] [address] Calcium [Mass/Vol] 8.2 mg/dL Low 8.8-10.0 [facility] Comment on above: Performed By: #### L [id number] ####Kiln Mechanic: NADIA FRENCH ([id number])[facility])[address] [place] [address] Chloride [Moles/Vol] 104 mmol/L Normal 98-107 [facility] Comment on above: Performed By: #### L [id number] ####Kiln Mechanic: NADIA FRENCH ([id number])[facility])[address] [place] [address] CO2 [Moles/Vol] 29 mmol/L Normal 23-31 [facility] Comment on above: Performed By: #### L [id number] ####Kiln Mechanic: NADIA FRENCH ([id number])[facility])[address] [place] [address] Creatinine [Mass/Vol] 1.18 mg/dL High 0.57-1.11 [facility] Comment on above: Performed By: #### L [id number] ####Kiln Mechanic: NADAI FRENCH ([id number])[facility])[address] [place] [address] [place] GLOMERULAR FILTRATION RATE ML/MIN/1.73 SQ M.PREDICTED 52.7 mL/min/1.73m*2 Low >60.0 [facility] Comment on above: Result Comment: Calc ulation based on the Chronic Kidney Disease Epidemiology Collaboration (CKD-EPI) equation refit without adjustment for race Performed By: #### L [id number] ####Kiln Mechanic: NADIA FRENCH ([id number])[facility])[address] [place] [address] Glucose [Mass/Vol] 101 mg/dL Normal 82-115 [facility] Comment on above: Performed By: #### L [id number] ####Kiln Mechanic: NADIA FRENCH ([id number])[facility])[address] [place] [address] Potassium [Moles/Vol] 4.2 mmol/L Normal 3.5-5.1 [facility] Comment on above: Result Comment: [facility] potassium values may be up to 0.5 mmol/L lower than serum values. Performed By: #### L [id number] ####Kiln Mechanic: NADIA FRENCH ([id number])[address] Sodium [Moles/Vol] 143 mmol/L Normal 136-145 [facility] Comment on above: Performed By: #### L [id number] ####Kiln Mechanic: NADIA FRENCH ([id number])[address] Urea nitrogen [Mass/Vol] 47 mg/dL High 9-23 [facility] Comment on above: Performed By: #### L [id number] ####Kiln Mechanic: NADIA FRENCH ([id number])[address] Basic metabolic 1998 panelon 06-28-2025 Anion gap [Moles/Vol] 10 mmol/L 3 - 13 mmol/L [facility] Calcium [Mass/Vol] 8.2 mg/dL Low 8.8 - 10. 0 mg/dL [facility] Chloride [Moles/Vol] 104 mmol/L 98 - 10 7 mmol/L [facility] CO2 [Moles/Vol] 29 mmol/L 23 - 31 mmol/L [facility] Creatinine [Mass/Vol] 1.18 mg/dL High 0.57 - 1.11 mg/dL [facility] GFR/1.73 sq M.predicted (S/P/Bld) [Vol rate/Area] 52.7 mL/min Low - PINF [facility] Glucose [Mass/Vol] 101 mg/dL 82 - 115 mg/dL [facility] Interpretation and review of laboratory results Abnormal [facility] Potassium [Moles/Vol] 4.2 mmol/L 3.5 - 5.1 mmol/L [facility] Sodium [Moles/Vol] 143 mmol/L 136 - 145 mmol/L [facility] Urea nitrogen [Mass/Vol] 47 mg/dL High 9 - 23 mg/dL [facility] CBC W Auto Differential pane l (Bld)on 06-28-2025 Basophils (Bld) [#/Vol] 0.1 10*3/uL 0.0 - 0.2 10*3/uL [facility] Basophils/100 WBC (Bld) 1 % 0.0 - 2.0 % [facility] Eosinophils (Bld) [#/Vol] 0.3 10*3/uL 0.0 - 0.5 10*3/uL [facility] Eosinophils/100 WBC (Bld) 3.7 % 0.0 - 6.0 % [facility] Erythrocyte distribution width (RBC) [Ratio] 21.3 % High 11.5 - 15.0 % [facility] Hematocrit (Bld) [Volume fraction] 28.1 % Low 35.0 - 47.0 % [facility] Hemoglobin (Bld) [Mass/Vol] 8.1 g/dL Low 11.7 - 16.0 g/dL [facility] Immature granulocytes (Bld) [#/Vol] 0 10*3/uL NINF - 0.1 10*3/uL [facility] Immature granulocytes/100 WBC (Bld) 0.2 % 0.0 - 2.0 % [facility] Interpretation and review of laboratory results Abnormal [facility] Lymphocytes (Bld) [#/Vol] 1.9 10*3/uL 1.0 - 4.3 10*3/uL [facility] Lymphocytes/100 WBC (Bld) 23.7 % 15.0 - 45.0 % [facility] MCH (RBC) [Entitic mass] 23.8 pg Low 26.0 - 34.0 pg [facility] MCHC (RBC) [Mass/Vol] 28.8 % Low 30.5 - 36.0 % [facility] MCV (RBC) [Entitic vol] 82.4 fL 77.0 - 99.0 fL [facility] Monocytes (Bld) [#/Vol] 0.7 10*3/uL 0.0 - 0.9 10*3/uL [facility] Monocytes/100 WBC (Bld) 8.4 % 5.0 - 13.0 % [facility] Neutrophils (Bld) [#/Vol] 5.1 10*3/uL 1.8 - 7.5 10*3/uL [facility] Neutrophils/100 WBC (Bld) 63 % 38.0 - 82.0 % [facility] Nucleated RBC/100 WBC (Bld) [Ratio] 0 % [facility] [employer] Platelet mean volume (Bld) [Entitic vol] 9.7 fL 9.0 - 12.7 fL [facility] Platelets (Bld) [#/Vol] 441 10*3/uL High 140 - 440 10*3/uL [facility] RBC (Bld) [#/Vol] 3.41 10*6/uL Low 3.80 - 5.20 10*6/uL [facility] WBC (Bld) [#/Vol] 8 10*3/uL 3.6 - 10.7 10*3/uL [facility] CBC WITH AUTO DIFFERENTIALon 06-28-2025 Basophils (Bld) [#/Vol] 0.1 10*3/uL Normal 0.0-0.[address] [facility] Comment on above: Performed By: #### L [id number] ####Kiln Mechanic: NADIA FRENCH ([id number])[facility])[address] [place] [address] Basophils/100 WBC (Bld) 1.0 % Normal 0.0-2.0 [facility] Comment on above: Performed By: #### L [id number] ####Kiln Mechanic: NADIA FRENCH ([id number])[facility])[address] [place] [address] Eosinophils (Bld) [#/Vol] 0.3 10*3/uL Normal 0.0-0.[address] [facility] Comment on above: Performed By: #### L [id number] ####Kiln Mechanic: NADIA FRENCH ([id number])[facility])[address] [place] [address] Eosinophils/100 WBC (Bld) 3.7 % Normal 0.0-6.[address] [facility] Comment on above: Performed By: #### L [id number] ####Kiln Mechanic: NADIA FRENCH ([id number])[facility])[address] [place] [address] Erythrocyte distribution width (RBC) [Ratio] 21.3 % High 11.5-15.[address] [facility] Comment on above: Performed By: #### L [id number] ####Kiln Mechanic: NADIA FRENCH ([id number])[address] Hematocrit (Bld) [Volume fraction] 28.1 % Low 35.0-47.[address] [facility] Comment on above: Performed By: #### L [id number] ####Kiln Mechanic: NADIA FRENCH ([id number])[address] Hemoglobin (Bld) [Mass/Vol] 8.1 g/dL Low 11.7-16.[address] [facility] Comment on above: Performed By: #### L [id number] ####Kiln Mechanic: NADIA FRENCH ([id number])[facility])[address] [place] [address] IMMATURE GRANS % 0.2 % Normal 0.0-2.[address] [facility] Comment on above: Performed By: #### L [id number] ####Kiln Mechanic: NADIA FRENCH ([id number])[address] IMMATURE GRANS ABSOLUTE 0.0 10*3/uL Normal <0.[address] [facility] Comment on above: Performed By: #### L [id number] ####Kiln Mechanic: NADIA FRENCH ([id number])[place] [address] [place] Lymphocytes (Bld) [#/Vol] 1.9 10*3/uL Normal 1.0-4.[address] [facility] Comment on above: Performed By: #### L [id number] ####Kiln Mechanic: NADIA FRENCH ([id number])[facility])[address] [place] [address] Lymphocytes/100 WBC (Bld) 23.7 % Normal 15.0-45.[address] [facility] Comment on above: Performed By: #### L [id number] ####Kiln Mechanic: NADIA FRENCH ([id number])[facility])[address] [place] [address] MCH (RBC) [Entitic mass] 23.8 pg Low 26.0-34.[address] [facility] Comment on above: Performed By: #### L [id number] ####Kiln Mechanic: NADIA FRENCH ([id number])[facility])[address] [place] [address] MCHC 28.8 % Low 30.5-36.[address] [facility] Comment on above: Performed By: #### L [id number] ####Kiln Mechanic: NADIA FRENCH ([id number])[facility])[address] [place] [address] MCV (RBC) [Entitic vol] 82.4 fL Normal 77.0-99.0 [facility] Comment on above: Performed By: #### L [id number] ####Kiln Mechanic: NADIA FRENCH ([id number])[facility])[address] [place] [address] Monocytes (Bld) [#/Vol] 0.7 10*3/uL Normal 0.0-0.[address] [facility] Comment on above: Performed By: #### L [id number] ####Kiln Mechanic: NADIA FRENCH ([id number])[facility])[address] [place] [address] Monocytes/100 WBC (Bld) 8.4 % Normal 5.0-13.0 [facility] Comment on above: Performed By: #### L [id number] ####Kiln Mechanic: NADIA FRENCH ([id number])[facility])[address] [place] [address] NEUTROPHILS ABSOLUTE 5.1 10*3/uL Normal 1.8-7.5 [facility] Comment on above: Performed By: #### L [id number] ####Kiln Mechanic: NADIA FRENCH ([id number])[facility])[address] [place] [address] Neutrophils/100 WBC (Bld) 63.0 % Normal 38.0-82.0 [facility] Comment on above: Performed By: #### L [id number] ####Kiln Mechanic: NADIA FRENCH ([id number])[facility])[address] [place] [address] NRBC 0.0 /100 WBCs Normal 0.0-2.0 [facility] Comment on above: Performed By: #### L [id number] ####Kiln Mechanic: NADIA FRENCH ([id number])[facility])[address] [place] [address] Platelet mean volume (Bld) [Entitic vol] 9.7 fL Normal 9.0-12.7 [facility] Comment on above: Performed By: #### L [id number] ####Kiln Mechanic: NADIA FRENCH ([id number])[facility])[address] [place] [address] Platelets (Bld) [#/Vol] 441 10*3/uL High 140-[address] [facility] Comment on above: Performed By: #### L [id number] ####Kiln Mechanic: NADIA FRENCH ([id number])[facility])[address] [place] [address] RBC (Bld) [#/Vol] 3.41 10*6/uL Low 3.80-5.20 [facility] Comment on above: Performed By: #### L [id number] ####Kiln Mechanic: NADIA FRENCH ([id number])[facility])[address] [place] [address] WBC (Bld) [#/Vol] 8.0 10*3/uL Normal 3.6-10.7 [facility] Comment on above: Performed By: #### L [id number] ####Kiln Mechanic: NADIA FRENCH ([id number])[facility])[address] [place] [address] Nursing Noteon 06-28-2025 Nursing Note Report called to Saul ramirez RN. All questions answered Normal [facility] Nursing Note Patient family/visit or updated by RN at this time. Normal [facility] Nursing Note Dr mirza at [facility] e to check on patient. VS stable on Bipap 07/03 7L. Orders to begin to wean off bipap. Normal [facility] Nursing Note Normal [facility] Nursing Note Normal [facility] Op Noteon 06-28-2025 Op Note Normal [facility] Progress Noteon 06-28-2025 Progress Note Normal [facility] Progress Note PHYSICAL THERAPY [facility] Name/MRN: Nancy Delacruz ([id number]) Date: 06/28/2025 Treatment is being deferred at present because pt is currently off of the floor . Shant Shea, PT Normal [facility] Progress Note Normal [facility] Progress Note Normal [facility] [id number] 06-27-2025 [id number] Normal [facility] 36on 06-27-2025 36 Can we request patie nts chest CT's from the hospital in [place]? Normal [facility] Anesthesia Noteon 06-27-2025 Anesthesia Note Normal [facility] BASIC METABOLIC PANELon 10-0 Anion gap [Moles/Vol] 8 mmol/L Normal 3-13 [facility] Comment on above: Performed By: #### L [id number] ####Kiln Mechanic: NADIA FRENCH ([id number])[facility])[address] [place] [address] Calcium [Mass/Vol] 8.3 mg/dL Low 8.8-10.0 [facility] Comment on above: Performed By: #### L [id number] ####Kiln Mechanic: NADIA FRENCH ([id number])[facility])[address] [place] [address] Chloride [Moles/Vol] 104 mmol/L Normal 98-107 [facility] Comment on above: Performed By: #### L [id number] ####Kiln Mechanic: NADIA FRENCH ([id number])[facility])[address] [place] [address] CO2 [Moles/Vol] 29 mmol/L Normal 23-31 [facility] Comment on above: Performed By: #### L [id number] ####Kiln Mechanic: NADIA FRENCH ([id number])[facility])[address] [place] [address] Creatinine [Mass/Vol] 1.10 mg/dL Normal 0.57-1.11 [facility] Comment on above: Performed By: #### L [id number] ####Kiln Mechanic: NADIA FRENCH ([id number])[facility])[address] [place] [address] [place] GLOMERULAR FILTRATION RATE ML/MIN/1.73 SQ M.PREDICTED 57.3 mL/min/1.73m*2 Low >60.0 [facility] Comment on above: Result Comment: Calc ulation based on the Chronic Kidney Disease Epidemiology Collaboration (CKD-EPI) equation refit without adjustment for race Performed By: #### L [id number] ####Kiln Mechanic: NADIA FRENCH ([id number])[facility])[address] [place] [address] [place] Glucose [Mass/Vol] 96 mg/dL Normal 82-115 [facility] Comment on above: Performed By: #### L [id number] ####Kiln Mechanic: NADIA FRENCH ([id number])[facility])[address] [place] [address] [place] Potassium [Moles/Vol] 3.9 mmol/L Normal 3.5-5.1 [facility] Comment on above: Result Comment: [facility] potassium values may be up to 0.5 mmol/L lower than serum values. Performed By: #### L [id number] ####Kiln Mechanic: NADIA FRENCH ([id number])[facility])[address] [place] [address] Sodium [Moles/Vol] 141 mmol/L Normal 136-145 [facility] Comment on above: Performed By: #### L [id number] ####Kiln Mechanic: NADIA FRENCH ([id number])[facility])[address] [place] [address] Urea nitrogen [Mass/Vol] 45 mg/dL High 9-23 [facility] Comment on above: Performed By: #### L [id number] ####Kiln Mechanic: NADIA FRENCH ([id number])[facility])[address] [place] [address] Basic metabolic 1998 panelon 06-27-2025 Anion gap [Moles/Vol] 8 mmol/L 3 - 13 mmol/L [facility] Calcium [Mass/Vol] 8.3 mg/dL Low 8.8 - 10. 0 mg/dL [facility] Chloride [Moles/Vol] 104 mmol/L 98 - 10 7 mmol/L [facility] CO2 [Moles/Vol] 29 mmol/L 23 - 31 mmol/L [facility] Creatinine [Mass/Vol] 1.1 mg/dL 0.57 - 1.11 mg/dL [facility] GFR/1.73 sq M.predicted (S/P/Bld) [Vol rate/Area] 57.3 mL/min Low - PINF [facility] Glucose [Mass/Vol] 96 mg/dL 82 - 115 mg/dL [facility] Interpretation and review of laboratory results Abnormal [facility] Potassium [Moles/Vol] 3.9 mmol/L 3.5 - 5.1 mmol/L [facility] Sodium [Moles/Vol] 141 mmol/L 136 - 145 mmol/L [facility] Urea nitrogen [Mass/Vol] 45 mg/dL High 9 - 23 mg/dL [facility] CBC W Auto Differential pane l (Bld)on 06-27-2025 Basophils (Bld) [#/Vol] 0.1 10*3/uL 0.0 - 0.2 10*3/uL [facility] Basophils/100 WBC (Bld) 1 % 0.0 - 2.0 % [facility] Eosinophils (Bld) [#/Vol] 0.3 10*3/uL 0.0 - 0.5 10*3/uL [facility] Eosinophils/100 WBC (Bld) 4.9 % 0.0 - 6.0 % [facility] Erythrocyte distribution width (RBC) [Ratio] 21 % High 11.5 - 15.0 % [facility] Hematocrit (Bld) [Volume fraction] 28.5 % Low 35.0 - 47.0 % [facility] Hemoglobin (Bld) [Mass/Vol] 8.1 g/dL Low 11.7 - 16.0 g/dL [facility] Immature granulocytes (Bld) [#/Vol] 0 10*3/uL NINF - 0.1 10*3/uL [facility] Immature granulocytes/100 WBC (Bld) 0.1 % 0.0 - 2.0 % [facility] Interpretation and review of laboratory results Abnormal [facility] Lymphocytes (Bld) [#/Vol] 1.5 10*3/uL 1.0 - 4.3 10*3/uL [facility] Lymphocytes/100 WBC (Bld) 21.4 % 15.0 - 45.0 % [facility] MCH (RBC) [Entitic mass] 23.7 pg Low 26.0 - 34.0 pg [facility] MCHC (RBC) [Mass/Vol] 28.4 % Low 30.5 - 36.0 % [facility] MCV (RBC) [Entitic vol] 83.3 fL 77.0 - 99.0 fL [facility] Monocytes (Bld) [#/Vol] 0.6 10*3/uL 0.0 - 0.9 10*3/uL [facility] Monocytes/100 WBC (Bld) 9 % 5.0 - 13.0 % [facility] Neutrophils (Bld) [#/Vol] 4.3 10*3/uL 1.8 - 7.5 10*3/uL [facility] Neutrophils/100 WBC (Bld) 63.6 % 38.0 - 82.0 % [facility] Nucleated RBC/100 WBC (Bld) [Ratio] 0 % [facility] Platelet mean volume (Bld) [Entitic vol] 9.5 fL 9.0 - 12.7 fL [facility] Platelets (Bld) [#/Vol] 424 10*3/uL 140 - 440 10*3/uL [facility] RBC (Bld) [#/Vol] 3.42 10*6/uL Low 3.80 - 5.20 10*6/uL [facility] WBC (Bld) [#/Vol] 6.8 10*3/uL 3.6 - 10.7 10*3/uL [facility] CBC WITH AUTO DIFFERENTIALon 06-27-2025 Basophils (Bld) [#/Vol] 0.1 10*3/uL Normal 0.0-0.[address] [facility] Comment on above: Performed By: #### L [id number] ####Kiln Mechanic: NADIA FRENCH ([id number])[facility])[address] [place] [address] Basophils/100 WBC (Bld) 1.0 % Normal 0.0-2.0 [facility] Comment on above: Performed By: #### L [id number] ####Kiln Mechanic: NADIA FRENCH ([id number])[facility])[address] [place] [address] Eosinophils (Bld) [#/Vol] 0.3 10*3/uL Normal 0.0-0.5 [facility] Comment on above: Performed By: #### L [id number] ####Kiln Mechanic: NADIA FRENCH ([id number])[facility])[address] [place] [address] Eosinophils/100 WBC (Bld) 4.9 % Normal 0.0-6.[address] [facility] Comment on above: Performed By: #### L [id number] ####Kiln Mechanic: NADIA FRENCH ([id number])[facility])[address] [place] [address] Erythrocyte distribution width (RBC) [Ratio] 21.0 % High 11.5-15.[address] [facility] Comment on above: Performed By: #### L [id number] ####Kiln Mechanic: NADIA FRENCH ([id number])[facility])[address] [place] [address] Hematocrit (Bld) [Volume fraction] 28.5 % Low 35.0-47.0 [facility] Comment on above: Performed By: #### L [id number] ####Kiln Mechanic: NADIA FRENCH ([id number])[facility])[address] [place] [address] Hemoglobin (Bld) [Mass/Vol] 8.1 g/dL Low 11.7-16.0 [facility] Comment on above: Performed By: #### L [id number] ####Kiln Mechanic: NADIA FRENCH ([id number])[address] IMMATURE GRANS % 0.1 % Normal 0.0-2.0 [facility] Comment on above: Performed By: #### L [id number] ####Kiln Mechanic: NADIA FRENCH ([id number])[address] IMMATURE GRANS ABSOLUTE 0.0 10*3/uL Normal <0.1 [facility] Comment on above: Performed By: #### L [id number] ####Kiln Mechanic: NADIA FRENCH ([id number])[address] Lymphocytes (Bld) [#/Vol] 1.5 10*3/uL Normal 1.0-4.[address] [facility] Comment on above: Performed By: #### L [id number] ####Kiln Mechanic: NADIA FRENCH ([id number])[facility])[address] [place] [address] Lymphocytes/100 WBC (Bld) 21.4 % Normal 15.0-45.[address] [facility] Comment on above: Performed By: #### L [id number] ####Kiln Mechanic: NADIA FRENCH ([id number])[facility])[address] [place] [address] MCH (RBC) [Entitic mass] 23.7 pg Low 26.0-34.[address] [facility] Comment on above: Performed By: #### L [id number] ####Kiln Mechanic: NADIA FRENCH ([id number])[facility])[address] [place] [address] MCHC 28.4 % Low 30.5-36.[address] [facility] Comment on above: Performed By: #### L [id number] ####Kiln Mechanic: NADIA FRENCH ([id number])[facility])[address] [place] [address] MCV (RBC) [Entitic vol] 83.3 fL Normal 77.0-99.0 [facility] Comment on above: Performed By: #### L [id number] ####Kiln Mechanic: NADIA FRENCH ([id number])[facility])[address] [place] [address] Monocytes (Bld) [#/Vol] 0.6 10*3/uL Normal 0.0-0.[address] [facility] Comment on above: Performed By: #### L [id number] ####Kiln Mechanic: NADIA FRENCH ([id number])[facility])[address] [place] [address] Monocytes/100 WBC (Bld) 9.0 % Normal 5.0-13.0 [facility] Comment on above: Performed By: #### L [id number] ####Kiln Mechanic: NADIA FRENCH ([id number])[facility])[address] [place] [address] NEUTROPHILS ABSOLUTE 4.3 10*3/uL Normal 1.8-7.5 [place] [facility] Comment on above: Performed By: #### L [id number] ####Kiln Mechanic: NADIA FRENCH ([id number])[facility])[address] [place] [address] Neutrophils/100 WBC (Bld) 63.6 % Normal 38.0-82.0 [facility] Comment on above: Performed By: #### L [id number] ####Kiln Mechanic: NADIA FRENCH ([id number])[facility])[address] [place] [address] NRBC 0.0 /100 WBCs Normal 0.0-2.0 [facility] Comment on above: Performed By: #### L [id number] ####Kiln Mechanic: NADIA FRENCH ([id number])[facility])[address] [place] [address] Platelet mean volume (Bld) [Entitic vol] 9.5 fL Normal 9.0-12.7 [facility] Comment on above: Performed By: #### L [id number] ####Kiln Mechanic: NADIA FRENCH ([id number])[facility])[address] [place] [address] Platelets (Bld) [#/Vol] 424 10*3/uL Normal 140-440 [facility] Comment on above: Performed By: #### L [id number] ####Kiln Mechanic: NADIA FRENCH ([id number])[facility])[address] [place] [address] RBC (Bld) [#/Vol] 3.42 10*6/uL Low 3.80-5.20 [facility] Comment on above: Performed By: #### L [id number] ####Kiln Mechanic: NADIA FRENCH ([id number])[facility])[address] [place] [address] WBC (Bld) [#/Vol] 6.8 10*3/uL Normal 3.6-10.7 [facility] Comment on above: Performed By: #### L [id number] ####Kiln Mechanic: NADIA FRENCH ([id number])[facility])[address] [place] [address] ECG 12-LEADon 06-27-2025 ECG 12-LEAD IMPRESSION: Atrial fibrillation LVH with secondary repolarization abnormality Compared to ECG 06/17/2025 16:06:[address] and T abn Electronically Signed On 06-27-2025 12:44:41 EDT by Yohan Gonzalez Normal [facility] No Panel InformationOrdered By: Yohan Gonzalez on 06-27-2025 P [place] 0 degrees [facility] Work Phone: WA Interval 0 ms [facility] Work Phone: QRS [place] -17 degrees [facility] Work Phone: QRSD Interval 82 ms [facility] Work Phone: QT Interval 374 ms [facility] Work Phone: QTC Interval 459 ms [facility] [employer] Work Phone: T Wave [place] 166 degrees [facility] Work Phone: [facility] Work Phone: No Panel Informationon 06-27 CV EPIPHANY [facility] Progress Noteon 06-27-2025 Progress Note Normal [facility] Progress Note Normal [facility] Vital signsOrdered By: Yohan Gonzalez on 06-27-2025 Heart rate 90 /min bpm [facility] [employer] Work Phone: BASIC METABOLIC PANELon 05-30 Anion gap [Moles/Vol] 8 mmol/L Normal 3-13 [facility] Comment on above: Performed By: #### L [id number] ####Kiln Mechanic: NADIA FRENCH ([id number])[address] Calcium [Mass/Vol] 8.5 mg/dL Low 8.8-10.[address] [facility] Comment on above: Performed By: #### L [id number] ####Kiln Mechanic: NADIA FRENCH ([id number])[address] Chloride [Moles/Vol] 104 mmol/L Normal 98-107 [facility] Comment on above: Performed By: #### L [id number] ####Kiln Mechanic: NADIA FRENCH ([id number])[facility])[address] [place] [address] CO2 [Moles/Vol] 30 mmol/L Normal 23-31 [facility] Comment on above: Performed By: #### L [id number] ####Kiln Mechanic: NADIA FRENCH ([id number])[facility])[address] [place] [address] Creatinine [Mass/Vol] 1.24 mg/dL High 0.57-1.11 [facility] Comment on above: Performed By: #### L [id number] ####Kiln Mechanic: NADIA FRENCH ([id number])[facility])[address] [place] [address] GLOMERULAR FILTRATION RATE ML/MIN/1.73 SQ M.PREDICTED 49.6 mL/min/1.73m*2 Low >60.0 [facility] Comment on above: Result Comment: Calc ulation based on the Chronic Kidney Disease Epidemiology Collaboration (CKD-EPI) equation refit without adjustment for race Performed By: #### L [id number] ####Kiln Mechanic: NADIA FRENCH ([id number])[facility])[address] [place] [address] [place] Glucose [Mass/Vol] 98 mg/dL Normal 82-115 [facility] Comment on above: Performed By: #### L [id number] ####Kiln Mechanic: NADIA FRENCH ([id number])[facility])[address] [place] [address] Potassium [Moles/Vol] 3.9 mmol/L Normal 3.5-5.1 [facility] Comment on above: Result Comment: [facility] potassium values may be up to 0.5 mmol/L lower than serum values. Performed By: #### L [id number] ####Kiln Mechanic: NADIA FRENCH ([id number])[facility])[address] [place] [address] [place] Sodium [Moles/Vol] 142 mmol/L Normal 136-145 [facility] Comment on above: Performed By: #### L [id number] ####Kiln Mechanic: NADIA FRENCH ([id number])[facility] [place] [address] Urea nitrogen [Mass/Vol] 46 mg/dL High 9-23 [facility] Comment on above: Performed By: #### L [id number] ####Kiln Mechanic: NADIA FRENCH ([id number])[facility])[address] [place] [address] Basic metabolic 1998 panelon 06-26-2025 Anion gap [Moles/Vol] 8 mmol/L 3 - 13 mmol/L [facility] Calcium [Mass/Vol] 8.5 mg/dL Low 8.8 - 10. 0 mg/dL [facility] Chloride [Moles/Vol] 104 mmol/L 98 - 10 7 mmol/L [facility] CO2 [Moles/Vol] 30 mmol/L 23 - 31 mmol/L [facility] Creatinine [Mass/Vol] 1.24 mg/dL High 0.57 - 1.11 mg/dL [facility] GFR/1.73 sq M.predicted (S/P/Bld) [Vol rate/Area] 49.6 mL/min Low - PINF [facility] Glucose [Mass/Vol] 98 mg/dL 82 - 115 mg/dL [facility] Interpretation and review of laboratory results Abnormal [facility] Potassium [Moles/Vol] 3.9 mmol/L 3.5 - 5.1 mmol/L [facility] Sodium [Moles/Vol] 142 mmol/L 136 - 145 mmol/L [facility] Urea nitrogen [Mass/Vol] 46 mg/dL High 9 - 23 mg/dL [facility] CBC W Auto Differential pane l (Bld)on 06-26-2025 Basophils (Bld) [#/Vol] 0.1 10*3/uL 0.0 - 0.2 10*3/uL [facility] Basophils/100 WBC (Bld) 1 % 0.0 - 2.0 % [facility] Eosinophils (Bld) [#/Vol] 0.3 10*3/uL 0.0 - 0.5 10*3/uL [facility] Eosinophils/100 WBC (Bld) 3.6 % 0.0 - 6.0 % [facility] Erythrocyte distribution width (RBC) [Ratio] 21.5 % High 11.5 - 15.0 % [facility] Hematocrit (Bld) [Volume fraction] 27.3 % Low 35.0 - 47.0 % [facility] Hemoglobin (Bld) [Mass/Vol] 7.8 g/dL Low 11.7 - 16.0 g/dL [facility] Immature granulocytes (Bld) [#/Vol] 0 10*3/uL NINF - 0.1 10*3/uL [facility] Immature granulocytes/100 WBC (Bld) 0.5 % 0.0 - 2.0 % [facility] Interpretation and review of laboratory results Abnormal [facility] Lymphocytes (Bld) [#/Vol] 1.4 10*3/uL 1.0 - 4.3 10*3/uL [facility] Lymphocytes/100 WBC (Bld) 17.1 % 15.0 - 45.0 % [facility] MCH (RBC) [Entitic mass] 23.8 pg Low 26.0 - 34.0 pg [facility] MCHC (RBC) [Mass/Vol] 28.6 % Low 30.5 - 36.0 % [facility] MCV (RBC) [Entitic vol] 83.2 fL 77.0 - 99.0 fL [facility] [employer] Monocytes (Bld) [#/Vol] 0.7 10*3/uL 0.0 - 0.9 10*3/uL [facility] Monocytes/100 WBC (Bld) 8.3 % 5.0 - 13.0 % [facility] Neutrophils (Bld) [#/Vol] 5.6 10*3/uL 1.8 - 7.5 10*3/uL [facility] Neutrophils/100 WBC (Bld) 69.5 % 38.0 - 82.0 % [facility] Nucleated RBC/100 WBC (Bld) [Ratio] 0 % [facility] [employer] Platelet mean volume (Bld) [Entitic vol] 9.7 fL 9.0 - 12.7 fL [facility] Platelets (Bld) [#/Vol] 480 10*3/uL High 140 - 440 10*3/uL [facility] RBC (Bld) [#/Vol] 3.28 10*6/uL Low 3.80 - 5.20 10*6/uL [facility] WBC (Bld) [#/Vol] 8.1 10*3/uL 3.6 - 10.7 10*3/uL [facility] CBC WITH AUTO DIFFERENTIALon 06-26-2025 Basophils (Bld) [#/Vol] 0.1 10*3/uL Normal 0.0-0.[address] [facility] Comment on above: Performed By: #### L [id number] ####Kiln Mechanic: NADIA FRENCH ([id number])[facility])[address] [place] [address] Basophils/100 WBC (Bld) 1.0 % Normal 0.0-2.0 [facility] Comment on above: Performed By: #### L [id number] ####Kiln Mechanic: NADIA FRENCH ([id number])[facility])[address] [place] [address] Eosinophils (Bld) [#/Vol] 0.3 10*3/uL Normal 0.0-0.[address] [facility] Comment on above: Performed By: #### L [id number] ####Kiln Mechanic: NADIA FRENCH ([id number])[facility])[address] [place] [address] Eosinophils/100 WBC (Bld) 3.6 % Normal 0.0-6.[address] [facility] Comment on above: Performed By: #### L [id number] ####Kiln Mechanic: NADIA FRENCH ([id number])[facility])[address] [place] [address] Erythrocyte distribution width (RBC) [Ratio] 21.5 % High 11.5-15.[address] [facility] Comment on above: Performed By: #### L [id number] ####Kiln Mechanic: NADIA FRENCH ([id number])[facility])[address] [place] [address] Hematocrit (Bld) [Volume fraction] 27.3 % Low 35.0-47.[address] [facility] Comment on above: Performed By: #### L [id number] ####Kiln Mechanic: NADIA FRENCH ([id number])[facility])[address] [place] [address] Hemoglobin (Bld) [Mass/Vol] 7.8 g/dL Low 11.7-16.0 [facility] Comment on above: Performed By: #### L [id number] ####Kiln Mechanic: NADIA FRENCH ([id number])[facility])[address] [place] [address] IMMATURE GRANS % 0.5 % Normal 0.0-2.0 [facility] Comment on above: Performed By: #### L [id number] ####Kiln Mechanic: NADIA FRENCH ([id number])[address] IMMATURE GRANS ABSOLUTE 0.0 10*3/uL Normal <0.1 [facility] Comment on above: Performed By: #### L [id number] ####Kiln Mechanic: NADIA FRENCH ([id number])[facility])[address] [place] [address] Lymphocytes (Bld) [#/Vol] 1.4 10*3/uL Normal 1.0-4.3 [facility] Comment on above: Performed By: #### L [id number] ####Kiln Mechanic: NADIA FRENCH ([id number])[address] Lymphocytes/100 WBC (Bld) 17.1 % Normal 15.0-45.[address] [facility] Comment on above: Performed By: #### L [id number] ####Kiln Mechanic: NADIA FRENCH ([id number])[facility])[address] [place] [address] MCH (RBC) [Entitic mass] 23.8 pg Low 26.0-34.0 [facility] Comment on above: Performed By: #### L [id number] ####Kiln Mechanic: NADIA FRENCH ([id number])[facility])[address] [place] [address] MCHC 28.6 % Low 30.5-36.[address] [facility] Comment on above: Performed By: #### L [id number] ####Kiln Mechanic: NADIA FRENCH ([id number])[facility])[address] [place] [address] MCV (RBC) [Entitic vol] 83.2 fL Normal 77.0-99.0 [facility] Comment on above: Performed By: #### L [id number] ####Kiln Mechanic: NADIA FRENCH ([id number])[facility])[address] [place] [address] Monocytes (Bld) [#/Vol] 0.7 10*3/uL Normal 0.0-0.[address] [facility] Comment on above: Performed By: #### L [id number] ####Kiln Mechanic: NADIA FRENCH ([id number])[facility])[address] [place] [address] Monocytes/100 WBC (Bld) 8.3 % Normal 5.0-13.0 [facility] Comment on above: Performed By: #### L [id number] ####Kiln Mechanic: NADIA FRENCH ([id number])[facility])[address] [place] [address] NEUTROPHILS ABSOLUTE 5.6 10*3/uL Normal 1.8-7.5 [facility] Comment on above: Performed By: #### L [id number] ####Kiln Mechanic: NADIA FRENCH ([id number])[facility])[address] [place] [address] Neutrophils/100 WBC (Bld) 69.5 % Normal 38.0-82.[address] [facility] Comment on above: Performed By: #### L [id number] ####Kiln Mechanic: NADIA FRENCH ([id number])[facility])[address] [place] [address] NRBC 0.0 /100 WBCs Normal 0.0-2.[address] [facility] Comment on above: Performed By: #### L [id number] ####Kiln Mechanic: NADIA FRENCH ([id number])[facility])[address] [place] [address] Platelet mean volume (Bld) [Entitic vol] 9.7 fL Normal 9.0-12.7 [facility] Comment on above: Performed By: #### L [id number] ####Kiln Mechanic: NADIA FRENCH ([id number])[facility])[address] [place] [address] Platelets (Bld) [#/Vol] 480 10*3/uL High 140-440 [facility] Comment on above: Performed By: #### L [id number] ####Kiln Mechanic: NADIA FRENCH ([id number])[facility])[address] [place] [address] RBC (Bld) [#/Vol] 3.28 10*6/uL Low 3.80-5.20 [facility] Comment on above: Performed By: #### L [id number] ####Kiln Mechanic: NADIA FRENCH ([id number])[facility])[address] [place] [address] WBC (Bld) [#/Vol] 8.1 10*3/uL Normal 3.6-10.7 [facility] Comment on above: Performed By: #### L [id number] ####Kiln Mechanic: NADIA FRENCH ([id number])[address] Progress Noteon 06-26-2025 Progress Note Normal [facility] Progress Note Normal [facility] Progress Note Normal [facility] Progress Note Normal [facility] Progress Note Normal [facility] 36on 06-25-2025 36 Patient scheduled inpatient Bronch/BAL at [facility] 06/26/25 2:[address] Wagner. Pre-Bronch orders placed. Surgery scheduling . Provider will arrange outpatient follow up if needed at time of discharge. Normal [facility] Anesthesia Noteon 06-25-2025 Anesthesia Note Normal [facility] BASIC METABOLIC PANELon 05-29 Anion gap [Moles/Vol] 8 mmol/L Normal 3-13 [facility] Comment on above: Performed By: #### L [id number] ####Kiln Mechanic: NADIA FRENCH ([id number])[facility])[address] [place] [address] Calcium [Mass/Vol] 8.2 mg/dL Low 8.8-10.0 [facility] Comment on above: Performed By: #### L [id number] ####Kiln Mechanic: NADIA FRENCH ([id number])[facility])[address] [place] [address] Chloride [Moles/Vol] 106 mmol/L Normal 98-107 [facility] Comment on above: Performed By: #### L [id number] ####Kiln Mechanic: NADIA FRENCH ([id number])[facility])[address] [place] [address] CO2 [Moles/Vol] 25 mmol/L Normal 23-31 [facility] Comment on above: Performed By: #### L [id number] ####Kiln Mechanic: NADIA FRENCH ([id number])[facility])[address] [place] [address] Creatinine [Mass/Vol] 1.15 mg/dL High 0.57-1.11 [facility] Comment on above: Performed By: #### L [id number] ####Kiln Mechanic: NADIA FRENCH ([id number])[facility])[address] [place] [address] [place] GLOMERULAR FILTRATION RATE ML/MIN/1.73 SQ M.PREDICTED 54.3 mL/min/1.73m*2 Low >60.0 [facility] Comment on above: Result Comment: Calc ulation based on the Chronic Kidney Disease Epidemiology Collaboration (CKD-EPI) equation refit without adjustment for race Performed By: #### L [id number] ####Kiln Mechanic: NADIA FRENCH ([id number])[facility])[address] [place] [address] [place] Glucose [Mass/Vol] 99 mg/dL Normal 82-115 [facility] Comment on above: Performed By: #### L [id number] ####Kiln Mechanic: NADIA FRENCH ([id number])[facility])[address] [place] [address] Potassium [Moles/Vol] 4.3 mmol/L Normal 3.5-5.1 [facility] Comment on above: Result Comment: [facility] potassium values may be up to 0.5 mmol/L lower than serum values. Performed By: #### L [id number] ####Kiln Mechanic: NADIA FRENCH ([id number])[facility])[address] [place] [address] Sodium [Moles/Vol] 139 mmol/L Normal 136-145 [facility] Comment on above: Performed By: #### L [id number] ####Kiln Mechanic: NADIA FRENCH ([id number])[facility])[address] [place] [address] Urea nitrogen [Mass/Vol] 40 mg/dL High 9-23 [facility] Comment on above: Performed By: #### L [id number] ####Kiln Mechanic: NADIA FRENCH ([id number])[facility])[address] [place] [address] BLOOD TYPE AND SCREEN GELon 06-25-2025 ABO GROUPING A [facility] Comment on above: Order Comment: Prepa ration for surgery this afternoon Performed By: #### L [id number] ####Kiln Mechanic: NADIA FRENCH ([id number])[facility] ([facility])[address] [place] [address] RH TYPE IN BLOOD Positive Normal [facility] Comment on above: Order Comment: Prepa ration for surgery this afternoon Performed By: #### L [id number] ####Kiln Mechanic: NADIA FRENCH ([id number])[facility] ([facility])[address] [place] [address] Basic metabolic 1998 panelon 06-25-2025 Anion gap [Moles/Vol] 8 mmol/L 3 - 13 mmol/L [facility] Calcium [Mass/Vol] 8.2 mg/dL Low 8.8 - 10. 0 mg/dL [facility] Chloride [Moles/Vol] 106 mmol/L 98 - 10 7 mmol/L [facility] CO2 [Moles/Vol] 25 mmol/L 23 - 31 mmol/L [facility] Creatinine [Mass/Vol] 1.15 mg/dL High 0.57 - 1.11 mg/dL [facility] GFR/1.73 sq M.predicted (S/P/Bld) [Vol rate/Area] 54.3 mL/min Low - PINF [facility] Glucose [Mass/Vol] 99 mg/dL 82 - 115 mg/dL [facility] Interpretation and review of laboratory results Abnormal [facility] Potassium [Moles/Vol] 4.3 mmol/L 3.5 - 5.1 mmol/L [facility] Sodium [Moles/Vol] 139 mmol/L 136 - 145 mmol/L [facility] Urea nitrogen [Mass/Vol] 40 mg/dL High 9 - 23 mg/dL [facility] Blood type and Crossmatch esperanza wagoner (Bld)on 06-25-2025 ABO group Nom (Bld) A [facility] Blood group antibody screen GEL Ql Negative [facility] D Ag Ql (RBC) Positive [facility] C-REACTIVE PROTEINon 025 CRP [Mass/Vol] 75.0 mg/L High <5.0 [facility] Comment on above: Performed By: #### L [id number], [id number] ####Kiln Mechanic: NADIA FRENCH ([id number])[address] CBC W Auto Differential pane l (Bld)Ordered By: Gisele Goncalves on 06-25-2025 Basophils (Bld) [#/Vol] 0.1 10*3/uL 0.0 - 0.2 10*3/uL [facility] Basophils/100 WBC (Bld) 0.7 % 0.0 - 2.0 % [facility] Eosinophils (Bld) [#/Vol] 0.3 10*3/uL 0.0 - 0.5 10*3/uL [facility] Eosinophils/100 WBC (Bld) 2.9 % 0.0 - 6.0 % [facility] Erythrocyte distribution width (RBC) [Ratio] 21.8 % High 11.5 - 15.0 % [facility] Hematocrit (Bld) [Volume fraction] 26.1 % Low 35.0 - 47.0 % [facility] Hemoglobin (Bld) [Mass/Vol] 7.5 g/dL Low 11.7 - 16.0 g/dL [facility] Immature granulocytes (Bld) [#/Vol] 0 10*3/uL NINF - 0.1 10*3/uL [facility] Immature granulocytes/100 WBC (Bld) 0.4 % 0.0 - 2.0 % [facility] Interpretation and review of laboratory results Abnormal [facility] Lymphocytes (Bld) [#/Vol] 1.5 10*3/uL 1.0 - 4.3 10*3/uL [facility] Lymphocytes/100 WBC (Bld) 16.1 % 15.0 - 45.0 % [facility] MCH (RBC) [Entitic mass] 24 pg Low 26.0 - 34.0 pg [facility] MCHC (RBC) [Mass/Vol] 28.7 % Low 30.5 - 36.0 % [facility] MCV (RBC) [Entitic vol] 83.4 fL 77.0 - 99.0 fL [facility] Monocytes (Bld) [#/Vol] 0.6 10*3/uL 0.0 - 0.9 10*3/uL [facility] Monocytes/100 WBC (Bld) 6.5 % 5.0 - 13.0 % [facility] Neutrophils (Bld) [#/Vol] 6.8 10*3/uL 1.8 - 7.5 10*3/uL [facility] Neutrophils/100 WBC (Bld) 73.4 % 38.0 - 82.0 % [facility] Nucleated RBC/100 WBC (Bld) [Ratio] 0 % [facility] [employer] Platelet mean volume (Bld) [Entitic vol] 9.4 fL 9.0 - 12.7 fL [facility] Platelets (Bld) [#/Vol] 452 10*3/uL High 140 - 440 10*3/uL [facility] RBC (Bld) [#/Vol] 3.13 10*6/uL Low 3.80 - 5.20 10*6/uL [facility] WBC (Bld) [#/Vol] 9.2 10*3/uL 3.6 - 10.7 10*3/uL [facility] CBC WITH AUTO DIFFERENTIALon 06-25-2025 Basophils (Bld) [#/Vol] 0.1 10*3/uL Normal 0.0-0.[address] [facility] Comment on above: Performed By: #### L [id number] ####Kiln Mechanic: NADIA FRENCH ([id number])[facility])[address] [place] [address] [place] Basophils/100 WBC (Bld) 0.7 % Normal 0.0-2.0 [facility] Comment on above: Performed By: #### L [id number] ####Kiln Mechanic: NADIA FRENCH ([id number])[facility])[address] [place] [address] Eosinophils (Bld) [#/Vol] 0.3 10*3/uL Normal 0.0-0.[address] [facility] Comment on above: Performed By: #### L [id number] ####Kiln Mechanic: NADIA FRENCH ([id number])[facility])[address] [place] [address] Eosinophils/100 WBC (Bld) 2.9 % Normal 0.0-6.[address] [facility] Comment on above: Performed By: #### L [id number] ####Kiln Mechanic: NADIA FRENCH ([id number])[facility])[address] [place] [address] Erythrocyte distribution width (RBC) [Ratio] 21.8 % High 11.5-15.[address] [facility] Comment on above: Performed By: #### L [id number] ####Kiln Mechanic: NADIA FRENCH ([id number])[facility])[address] [place] [address] Hematocrit (Bld) [Volume fraction] 26.1 % Low 35.0-47.[address] [facility] Comment on above: Performed By: #### L [id number] ####Kiln Mechanic: NADIA FRENCH ([id number])[facility] [address] Hemoglobin (Bld) [Mass/Vol] 7.5 g/dL Low 11.7-16.0 [facility] Comment on above: Performed By: #### L [id number] ####Kiln Mechanic: NADIA FRENCH ([id number])[facility])[address] [place] [address] IMMATURE GRANS % 0.4 % Normal 0.0-2.0 [facility] Comment on above: Performed By: #### L [id number] ####Kiln Mechanic: NADIA FRENCH ([id number])[address] IMMATURE GRANS ABSOLUTE 0.0 10*3/uL Normal <0.1 [facility] Comment on above: Performed By: #### L [id number] ####[place] Mechanic: NADIA FRENCH ([id number])[facility])[address] [place] [address] Lymphocytes (Bld) [#/Vol] 1.5 10*3/uL Normal 1.0-4.3 [facility] Comment on above: Performed By: #### L [id number] ####Kiln Mechanic: NADIA FRENCH ([id number])[address] Lymphocytes/100 WBC (Bld) 16.1 % Normal 15.0-45.0 [facility] Comment on above: Performed By: #### L [id number] ####Kiln Mechanic: NADIA FRENCH ([id number])[facility])[address] [place] [address] MCH (RBC) [Entitic mass] 24.0 pg Low 26.0-34.0 [facility] Comment on above: Performed By: #### L [id number] ####Kiln Mechanic: NADIA FRENCH ([id number])[facility])[address] [place] [address] MCHC 28.7 % Low 30.5-36.0 [facility] Comment on above: Performed By: #### L [id number] ####Kil[place] Mechanic: NADIA FRENCH ([id number])[facility] ([facility])[address] [place] [address] MCV (RBC) [Entitic vol] 83.4 fL Normal 77.0-99.0 [facility] Comment on above: Performed By: #### L [id number] ####Kiln Mechanic: NADIA FRENCH ([id number])[facility])[address] [place] [address] Monocytes (Bld) [#/Vol] 0.6 10*3/uL Normal 0.0-0.[address] [facility] Comment on above: Performed By: #### L [id number] ####Kiln Mechanic: NADIA FRENCH ([id number])[facility])[address] [place] [address] Monocytes/100 WBC (Bld) 6.5 % Normal 5.0-13.0 [facility] Comment on above: Performed By: #### L [id number] ####Kiln Mechanic: NADIA FRENCH ([id number])[facility])[address] [place] [address] NEUTROPHILS ABSOLUTE 6.8 10*3/uL Normal 1.8-7.5 [facility] Comment on above: Performed By: #### L [id number] ####Kiln Mechanic: NADIA FRENCH ([id number])[facility])[address] [place] [address] Neutrophils/100 WBC (Bld) 73.4 % Normal 38.0-82.[address] [facility] Comment on above: Performed By: #### L [id number] ####Kiln Mechanic: NADIA FRENCH ([id number])[facility])[address] [place] [address] NRBC 0.0 /100 WBCs Normal 0.0-2.[address] [facility] Comment on above: Performed By: #### L [id number] ####Kiln Mechanic: NADIA FRENCH ([id number])[facility] ([facility])[address] [place] [address] Platelet mean volume (Bld) [Entitic vol] 9.4 fL Normal 9.0-12.7 [facility] Comment on above: Performed By: #### L [id number] ####Kiln Mechanic: NADIA FRENCH ([id number])[facility] ([facility])[address] [place] [address] Platelets (Bld) [#/Vol] 452 10*3/uL High 140-440 [facility] Comment on above: Performed By: #### L [id number] ####Kiln Mechanic: NADIA FRENCH ([id number])[facility] ([facility])[address] [place] [address] RBC (Bld) [#/Vol] 3.13 10*6/uL Low 3.80-5.20 [facility] Comment on above: Performed By: #### L [id number] ####Kil[place] Mechanic: NADIA FRENCH ([id number])[facility] [place] [address] WBC (Bld) [#/Vol] 9.2 10*3/uL Normal 3.6-10.7 [facility] Comment on above: Performed By: #### L [id number] ####Kiln Mechanic: NADIA FRENCH ([id number])[facility] ([facility])[address] [place] [address] CRP [Mass/Vol]on 06-25-2025 Interpretation and review of laboratory results Abnormal [facility] CT CHEST WO IV CONTRASTon CT CHEST WO IV CONTRAST Normal [facility] CT Chest WO contraston 06-25 [facility] Radiology Study observation (narrative) [facility] - Chemistry and C hemistry - challengeon 06-25-2025 CRP [Mass/Vol] 75 mg/L High NINF - 5.0 mg/L [facility] NT PRO BNPon 06-25-2025 Natriuretic peptide B (Bld) [Mass/Vol] 06977 pg/mL High <334 [facility] Comment on above: Result Comment: YESY [...] a new. Performed By: #### L [id number], [id number] ####Kil[place] Mechanic: NADIA FRENCH ([id number])[facility] ([address] Natriuretic peptide B [Mass/ Vol]Ordered By: Abraham Busch on 06-25-2025 Interpretation and review of laboratory results Abnormal [facility] Natriuretic peptide B (Bld) [Mass/Vol] 63276 pg/mL High NINF - 334 pg/mL [facility] Nursing Noteon 06-25-2025 Nursing Note Surgery cancelled pe r Dr. Rodriguez/anesthesia due to respiratory status. Normal [facility] Nursing Note Pt O2 sat 85% on 12L venti mask. Dr. Rodriguez at bedside. Notified Dr. Akers. Will come eval pt. Non rebreather applied. Normal [facility] Progress Noteon 06-25-2025 Progress Note Normal [facility] Progress Note Normal [facility] Progress Note Normal [facility] Progress Note Normal [facility] XR CHEST 2 VIEWSon 5 XR CHEST 2 VIEWS Normal [facility] XR Chest 2 Viewson 5 [facility] Radiology Study observation (narrative) [facility] XR Chest 2 ViewsOrdered By: Fer Maya on 06-25-2025 [facility] [employer] Work Phone: BASIC METABOLIC PANELon 05-29 Anion gap [Moles/Vol] 5 mmol/L Normal 3-13 [facility] Comment on above: Performed By: #### L [id number] ####Kil[place] Mechanic: NADIA FRENCH ([id number])[facility] ([facility])[address] [place] [address] Calcium [Mass/Vol] 8.2 mg/dL Low 8.8-10.0 [facility] Comment on above: Performed By: #### L [id number] ####Kil[place] Mechanic: NADIA FRENCH ([id number])[facility] ([facility])[address] [place] [address] Chloride [Moles/Vol] 106 mmol/L Normal 98-107 [facility] Comment on above: Performed By: #### L [id number] ####Kiln Mechanic: NADIA FRENCH ([id number])[facility] ([facility])[address] [place] [address] CO2 [Moles/Vol] 26 mmol/L Normal 23-31 [facility] Comment on above: Performed By: #### L [id number] ####Kiln Mechanic: NADIA FRENCH ([id number])[facility] ([facility])[address] [place] [address] Creatinine [Mass/Vol] 1.06 mg/dL Normal 0.57-1.11 [facility] Comment on above: Performed By: #### L [id number] ####Kiln Mechanic: NADIA FRENCH ([id number])[facility] ([facility])[address] [place] [address] [place] GLOMERULAR FILTRATION RATE ML/MIN/1.73 SQ M.PREDICTED 59.9 mL/min/1.73m*2 Low >60.0 [facility] Comment on above: Result Comment: Calc ulation based on the Chronic Kidney Disease Epidemiology Collaboration (CKD-EPI) equation refit without adjustment for race Performed By: #### L [id number] ####Kiln Mechanic: NADIA FRENCH ([id number])[facility] ([facility])[address] [place] [address] Glucose [Mass/Vol] 80 mg/dL Low 82-115 [facility] Comment on above: Performed By: #### L [id number] ####Kiln Mechanic: NADIA FRENCH ([id number])[facility])[address] [place] [address] Potassium [Moles/Vol] 4.1 mmol/L Normal 3.5-5.1 [facility] Comment on above: Result Comment: [facility] potassium values may be up to 0.5 mmol/L lower than serum values. Performed By: #### L [id number] ####Kiln Mechanic: NADIA FRENCH ([id number])[facility] ([facility])[address] [place] [address] Sodium [Moles/Vol] 137 mmol/L Normal 136-145 [facility] Comment on above: Performed By: #### L [id number] ####Kiln Mechanic: NADIA FRENCH ([id number])[facility] ([facility])[address] [place] [address] Urea nitrogen [Mass/Vol] 32 mg/dL High 9-23 [facility] Comment on above: Performed By: #### L [id number] ####Kiln Mechanic: NADIA FRENCH ([id number])[facility])[address] [place] [address] Bacteria identified Aer cx N om (Lower resp)Ordered By: Stefania Orourke on 06-24-2025 Gram Stain Result Few Polymorphonuclea r leukocytes per low power field Abnormal [facility] Gram Stain Result Rare Epithelial cell s per low power field Abnormal [facility] Gram Stain Result Positive Abnormal [facility] Interpretation and review of laboratory results Abnormal [facility] Basic metabolic 1998 panelon 06-24-2025 Anion gap [Moles/Vol] 5 mmol/L 3 - 13 mmol/L [facility] Calcium [Mass/Vol] 8.2 mg/dL Low 8.8 - 10. 0 mg/dL [facility] Chloride [Moles/Vol] 106 mmol/L 98 - 10 7 mmol/L [facility] CO2 [Moles/Vol] 26 mmol/L 23 - 31 mmol/L [facility] Creatinine [Mass/Vol] 1.06 mg/dL 0.57 - 1.11 mg/dL [facility] GFR/1.73 sq M.predicted (S/P/Bld) [Vol rate/Area] 59.9 mL/min Low - PINF [facility] Glucose [Mass/Vol] 80 mg/dL Low 82 - 115 mg/dL [facility] Interpretation and review of laboratory results Abnormal [facility] Potassium [Moles/Vol] 4.1 mmol/L 3.5 - 5.1 mmol/L [facility] Sodium [Moles/Vol] 137 mmol/L 136 - 145 mmol/L [facility] Urea nitrogen [Mass/Vol] 32 mg/dL High 9 - 23 mg/dL [facility] CBC W Auto Differential pane l (Bld)on 06-24-2025 Basophils (Bld) [#/Vol] 0.1 10*3/uL 0.0 - 0.2 10*3/uL [facility] Basophils/100 WBC (Bld) 0.7 % 0.0 - 2.0 % [facility] Eosinophils (Bld) [#/Vol] 0.2 10*3/uL 0.0 - 0.5 10*3/uL [facility] Eosinophils/100 WBC (Bld) 1.7 % 0.0 - 6.0 % [facility] Erythrocyte distribution width (RBC) [Ratio] 22.2 % High 11.5 - 15.0 % [facility] Hematocrit (Bld) [Volume fraction] 27.2 % Low 35.0 - 47.0 % [facility] Hemoglobin (Bld) [Mass/Vol] 7.8 g/dL Low 11.7 - 16.0 g/dL [facility] Immature granulocytes (Bld) [#/Vol] 0.1 10*3/uL High NINF - 0.1 10*3/uL [facility] Immature granulocytes/100 WBC (Bld) 0.5 % 0.0 - 2.0 % [facility] Interpretation and review of laboratory results Abnormal [facility] Lymphocytes (Bld) [#/Vol] 0.9 10*3/uL Low 1.0 - 4.3 10*3/uL [facility] Lymphocytes/100 WBC (Bld) 9.1 % Low 15.0 - 45.0 % [facility] MCH (RBC) [Entitic mass] 23.6 pg Low 26.0 - 34.0 pg [facility] MCHC (RBC) [Mass/Vol] 28.7 % Low 30.5 - 36.0 % [facility] MCV (RBC) [Entitic vol] 82.4 fL 77.0 - 99.0 fL [facility] Monocytes (Bld) [#/Vol] 0.7 10*3/uL 0.0 - 0.9 10*3/uL [facility] Monocytes/100 WBC (Bld) 6.9 % 5.0 - 13.0 % [facility] Neutrophils (Bld) [#/Vol] 8 10*3/uL High 1.8 - 7.5 10*3/uL [facility] Neutrophils/100 WBC (Bld) 81.1 % 38.0 - 82.0 % [facility] Nucleated RBC/100 WBC (Bld) [Ratio] 0 % [facility] Platelet mean volume (Bld) [Entitic vol] 9.8 fL 9.0 - 12.7 fL [facility] Platelets (Bld) [#/Vol] 418 10*3/uL 140 - 440 10*3/uL [facility] RBC (Bld) [#/Vol] 3.3 10*6/uL Low 3.80 - 5.20 10*6/uL [facility] WBC (Bld) [#/Vol] 9.9 10*3/uL 3.6 - 10.7 10*3/uL [facility] CBC WITH AUTO DIFFERENTIALon 06-24-2025 Basophils (Bld) [#/Vol] 0.1 10*3/uL Normal 0.0-0.[address] [facility] Comment on above: Performed By: #### L [id number] ####Kiln Mechanic: NADIA FRENCH ([id number])[address] Basophils/100 WBC (Bld) 0.7 % Normal 0.0-2.0 [facility] Comment on above: Performed By: #### L [id number] ####Kiln Mechanic: NADIA FRENCH ([id number])[facility])[address] [place] [address] Eosinophils (Bld) [#/Vol] 0.2 10*3/uL Normal 0.0-0.[address] [facility] Comment on above: Performed By: #### L [id number] ####Kiln Mechanic: NADIA FRENCH ([id number])[facility])[address] [place] [address] Eosinophils/100 WBC (Bld) 1.7 % Normal 0.0-6.[address] [facility] Comment on above: Performed By: #### L [id number] ####Kiln Mechanic: NADIA FRENCH ([id number])[address] Erythrocyte distribution width (RBC) [Ratio] 22.2 % High 11.5-15.[address] [facility] Comment on above: Performed By: #### L [id number] ####Kiln Mechanic: NADIA FRENCH ([id number])[facility])[address] [place] [address] Hematocrit (Bld) [Volume fraction] 27.2 % Low 35.0-47.[address] [facility] Comment on above: Performed By: #### L [id number] ####Kiln Mechanic: NADIA FRENCH ([id number])[address] Hemoglobin (Bld) [Mass/Vol] 7.8 g/dL Low 11.7-16.[address] [facility] Comment on above: Performed By: #### L [id number] ####Kiln Mechanic: NADIA FRENCH ([id number])[address] IMMATURE GRANS % 0.5 % Normal 0.0-2.[address] [facility] Comment on above: Performed By: #### L [id number] ####Kiln Mechanic: NADIA FRENCH ([id number])[facility])[address] [place] [address] IMMATURE GRANS ABSOLUTE 0.1 10*3/uL High <0.[address] [facility] Comment on above: Performed By: #### L [id number] ####Kiln Mechanic: NADIA FRENCH ([id number])[facility])[address] [place] [address] Lymphocytes (Bld) [#/Vol] 0.9 10*3/uL Low 1.0-4.[address] [facility] Comment on above: Performed By: #### L [id number] ####Kiln Mechanic: NADIA FRENCH ([id number])[facility])[address] [place] [address] Lymphocytes/100 WBC (Bld) 9.1 % Low 15.0-45.[address] [facility] Comment on above: Performed By: #### L [id number] ####Kiln Mechanic: NADIA FRENCH ([id number])[facility])[address] [place] [address] MCH (RBC) [Entitic mass] 23.6 pg Low 26.0-34.[address] [facility] Comment on above: Performed By: #### L [id number] ####Kiln Mechanic: NADIA FRENCH ([id number])[facility])[address] [place] [address] MCHC 28.7 % Low 30.5-36.[address] [facility] Comment on above: Performed By: #### L [id number] ####Kiln Mechanic: NADIA FRENCH ([id number])[facility])[address] [place] [address] MCV (RBC) [Entitic vol] 82.4 fL Normal 77.0-99.0 [facility] Comment on above: Performed By: #### L [id number] ####Kiln Mechanic: NADIA FRENCH ([id number])[facility])[address] [place] [address] Monocytes (Bld) [#/Vol] 0.7 10*3/uL Normal 0.0-0.[address] [facility] Comment on above: Performed By: #### L [id number] ####Kiln Mechanic: NADIA FRENCH ([id number])[facility] ([facility])[address] [place] [address] Monocytes/100 WBC (Bld) 6.9 % Normal 5.0-13.0 [facility] Comment on above: Performed By: #### L [id number] ####Kiln Mechanic: NADIA FRENCH ([id number])[facility] ([facility])[address] [place] [address] NEUTROPHILS ABSOLUTE 8.0 10*3/uL High 1.8-7.5 [facility] Comment on above: Performed By: #### L [id number] ####Kiln Mechanic: NADIA FRENCH ([id number])[facility])[address] [place] [address] Neutrophils/100 WBC (Bld) 81.1 % Normal 38.0-82.0 [facility] Comment on above: Performed By: #### L [id number] ####Kiln Mechanic: NADIA FRENCH ([id number])[facility] ([facility])[address] [place] [address] NRBC 0.0 /100 WBCs Normal 0.0-2.0 [facility] Comment on above: Performed By: #### L [id number] ####Kiln Mechanic: NADIA FRENCH ([id number])[facility] ([facility])[address] [place] [address] Platelet mean volume (Bld) [Entitic vol] 9.8 fL Normal 9.0-12.7 [facility] Comment on above: Performed By: #### L [id number] ####Kiln Mechanic: NADIA FRENCH ([id number])[facility] ([facility])[address] [place] [address] [place] Platelets (Bld) [#/Vol] 418 10*3/uL Normal 140-440 [facility] Comment on above: Performed By: #### L [id number] ####Kiln Mechanic: NADIA FRENCH ([id number])[facility] ([facility])[address] [place] [address] RBC (Bld) [#/Vol] 3.30 10*6/uL Low 3.80-5.20 [facility] Comment on above: Performed By: #### L [id number] ####Kiln Mechanic: NADIA FRENCH ([id number])[facility])[address] [place] [address] WBC (Bld) [#/Vol] 9.9 10*3/uL Normal 3.6-10.7 [facility] Comment on above: Performed By: #### L [id number] ####Kiln Mechanic: NADIA FRENCH ([id number])[facility])[address] [place] [address] Laboratory - Microbiology an d Antimicrobial susceptibilityOrdered By: Stefania Orourke on 06-24-2025 Bacteria identified Aer cx Nom (Lower resp) Few respiratory amita present. [facility] Bacteria identified Aer cx Nom (Lower resp) Moderate Stephanie tropicalis Abnormal [facility] Progress Noteon 06-24-2025 Progress Note Normal [facility] Progress Note Normal [facility] BASIC METABOLIC PANELon 05-29 Anion gap [Moles/Vol] 5 mmol/L Normal 3-13 [facility] Comment on above: Performed By: #### L [id number] ####Kiln Mechanic: NADIA FRENCH ([id number])[facility])[address] [place] [address] Calcium [Mass/Vol] 8.0 mg/dL Low 8.8-10.0 [facility] Comment on above: Performed By: #### L [id number] ####Kiln Mechanic: NADIA FRENCH ([id number])[facility] ([facility])[address] [place] [address] Chloride [Moles/Vol] 105 mmol/L Normal 98-107 [facility] Comment on above: Performed By: #### L [id number] ####Kiln Mechanic: NADIA [id number])[facility])[address] [place] [address] CO2 [Moles/Vol] 26 mmol/L Normal 23-31 [facility] Comment on above: Performed By: #### L AB15 ####Kiln Mechanic: NADIA FRENCH ([id number])[facility])[address] [place] [address] Creatinine [Mass/Vol] 1.11 mg/dL Normal 0.57-1.11 [facility] Comment on above: Performed By: #### L AB15 ####Kiln Mechanic: NADIA FRENCH ([id number])[facility])[address] [place] [address] GLOMERULAR FILTRATION RATE ML/MIN/1.73 SQ M.PREDICTED 56.7 mL/min/1.73m*2 Low >60.0 [facility] Comment on above: Result Comment: Calc ulation based on the Chronic Kidney Disease Epidemiology Collaboration (CKD-EPI) equation refit without adjustment for race Performed By: #### L [id number] ####Kiln Mechanic: NADIA FRENCH ([id number])[facility])[address] [place] [address] Glucose [Mass/Vol] 88 mg/dL Normal 82-115 [facility] Comment on above: Performed By: #### L AB15 ####Kiln Mechanic: NADIA FRENCH ([id number])[address] Potassium [Moles/Vol] 3.8 mmol/L Normal 3.5-5.1 [facility] Comment on above: Result Comment: [facility] potassium values may be up to 0.5 mmol/L lower than serum values. Performed By: #### L [id number] ####Kiln Mechanic: NADIA FRENCH ([id number])[facility])[address] [place] [address] [place] Sodium [Moles/Vol] 136 mmol/L Normal 136-145 [facility] Comment on above: Performed By: #### L AB15 ####Kiln Mechanic: NADIA FRENCH ([id number])[facility])[address] [place] [address] Urea nitrogen [Mass/Vol] 29 mg/dL High 9-23 [facility] Comment on above: Performed By: #### L [id number] ####Kiln Mechanic: NADIA FRENCH ([id number])[facility] [place] [address] Basic metabolic 1998 panelon 06-23-2025 Anion gap [Moles/Vol] 5 mmol/L 3 - 13 mmol/L [facility] Calcium [Mass/Vol] 8 mg/dL Low 8.8 - 10. 0 mg/dL [facility] Chloride [Moles/Vol] 105 mmol/L 98 - 10 7 mmol/L [facility] CO2 [Moles/Vol] 26 mmol/L 23 - 31 mmol/L [facility] Creatinine [Mass/Vol] 1.11 mg/dL 0.57 - 1.11 mg/dL [facility] GFR/1.73 sq M.predicted (S/P/Bld) [Vol rate/Area] 56.7 mL/min Low - PINF [facility] Glucose [Mass/Vol] 88 mg/dL 82 - 115 mg/dL [facility] Interpretation and review of laboratory results Abnormal [facility] Potassium [Moles/Vol] 3.8 mmol/L 3.5 - 5.1 mmol/L [facility] Sodium [Moles/Vol] 136 mmol/L 136 - 145 mmol/L [facility] Urea nitrogen [Mass/Vol] 29 mg/dL High 9 - 23 mg/dL [facility] CBC W Auto Differential pane l (Bld)on 06-23-2025 Basophils (Bld) [#/Vol] 0.1 10*3/uL 0.0 - 0.2 10*3/uL [facility] Basophils/100 WBC (Bld) 0.6 % 0.0 - 2.0 % [facility] Eosinophils (Bld) [#/Vol] 0.2 10*3/uL 0.0 - 0.5 10*3/uL [facility] Eosinophils/100 WBC (Bld) 2.2 % 0.0 - 6.0 % [facility] Erythrocyte distribution width (RBC) [Ratio] 22.5 % High 11.5 - 15.0 % [facility] Hematocrit (Bld) [Volume fraction] 25.5 % Low 35.0 - 47.0 % [facility] Hemoglobin (Bld) [Mass/Vol] 7.5 g/dL Low 11.7 - 16.0 g/dL [facility] Immature granulocytes (Bld) [#/Vol] 0 10*3/uL NINF - 0.1 10*3/uL [facility] Immature granulocytes/100 WBC (Bld) 0.5 % 0.0 - 2.0 % [facility] Interpretation and review of laboratory results Abnormal [facility] Lymphocytes (Bld) [#/Vol] 1.3 10*3/uL 1.0 - 4.3 10*3/uL [facility] Lymphocytes/100 WBC (Bld) 14.4 % Low 15.0 - 45.0 % [facility] MCH (RBC) [Entitic mass] 24.2 pg Low 26.0 - 34.0 pg [facility] MCHC (RBC) [Mass/Vol] 29.4 % Low 30.5 - 36.0 % [facility] MCV (RBC) [Entitic vol] 82.3 fL 77.0 - 99.0 fL [facility] Monocytes (Bld) [#/Vol] 0.8 10*3/uL 0.0 - 0.9 10*3/uL [facility] Monocytes/100 WBC (Bld) 8.8 % 5.0 - 13.0 % [facility] Neutrophils (Bld) [#/Vol] 6.4 10*3/uL 1.8 - 7.5 10*3/uL [facility] Neutrophils/100 WBC (Bld) 73.5 % 38.0 - 82.0 % [facility] Nucleated RBC/100 WBC (Bld) [Ratio] 0 % [facility] Platelet mean volume (Bld) [Entitic vol] 9.6 fL 9.0 - 12.7 fL [facility] Platelets (Bld) [#/Vol] 371 10*3/uL 140 - 440 10*3/uL [facility] RBC (Bld) [#/Vol] 3.1 10*6/uL Low 3.80 - 5.20 10*6/uL [facility] WBC (Bld) [#/Vol] 8.7 10*3/uL 3.6 - 10.7 10*3/uL [facility] CBC WITH AUTO DIFFERENTIALon 06-23-2025 Basophils (Bld) [#/Vol] 0.1 10*3/uL Normal 0.0-0.2 [facility] Comment on above: Performed By: #### L [id number] ####Kiln Mechanic: NADIA FRENCH ([id number])[facility] ([facility])[address] [place] [address] Basophils/100 WBC (Bld) 0.6 % Normal 0.0-2.0 [facility] Comment on above: Performed By: #### L [id number] ####Kiln Mechanic: NADIA FRENCH ([id number])[facility])[address] [place] [address] Eosinophils (Bld) [#/Vol] 0.2 10*3/uL Normal 0.0-0.5 [facility] Comment on above: Performed By: #### L [id number] ####Kil[employer] Mechanic: NADIA FRENCH ([id number])[facility])[address] [place] [address] Eosinophils/100 WBC (Bld) 2.2 % Normal 0.0-6.[address] [facility] Comment on above: Performed By: #### L [id number] ####Kiln Mechanic: NADIA FRENCH ([id number])[facility])[address] [place] [address] Erythrocyte distribution width (RBC) [Ratio] 22.5 % High 11.5-15.0 [facility] Comment on above: Performed By: #### L [id number] ####Kiln Mechanic: NADIA FRENCH ([id number])[facility])[address] [place] [address] Hematocrit (Bld) [Volume fraction] 25.5 % Low 35.0-47.[address] [facility] Comment on above: Performed By: #### L [id number] ####Kiln Mechanic: NADIA FRENCH ([id number])[facility])[address] [place] [address] Hemoglobin (Bld) [Mass/Vol] 7.5 g/dL Low 11.7-16.0 [facility] Comment on above: Performed By: #### L [id number] ####Kiln Mechanic: NADIA FRENCH ([id number])[address] IMMATURE GRANS % 0.5 % Normal 0.0-2.0 [facility] Comment on above: Performed By: #### L [id number] ####Kiln Mechanic: NADIA FRENCH ([id number])[facility])[address] [place] [address] IMMATURE GRANS ABSOLUTE 0.0 10*3/uL Normal <0.1 [facility] Comment on above: Performed By: #### L [id number] ####Kiln Mechanic: ANDIA FRENCH ([id number])[address] Lymphocytes (Bld) [#/Vol] 1.3 10*3/uL Normal 1.0-4.3 [facility] Comment on above: Performed By: #### L [id number] ####Kiln Mechanic: NADIA FRENCH ([id number])[address] Lymphocytes/100 WBC (Bld) 14.4 % Low 15.0-45.0 [facility] Comment on above: Performed By: #### L [id number] ####Kiln Mechanic: NADIA FRENCH ([id number])[address] MCH (RBC) [Entitic mass] 24.2 pg Low 26.0-34.0 [facility] Comment on above: Performed By: #### L [id number] ####Kiln Mechanic: NADIA FRENCH ([id number])[address] MCHC 29.4 % Low 30.5-36.0 [facility] Comment on above: Performed By: #### L [id number] ####Kiln Mechanic: NADIA FRENCH ([id number])[facility] ([facility])[address] [place] [address] MCV (RBC) [Entitic vol] 82.3 fL Normal 77.0-99.0 [facility] Comment on above: Performed By: #### L [id number] ####Kiln Mechanic: NADIA FRENCH ([id number])[facility] ([facility])[address] [place] [address] Monocytes (Bld) [#/Vol] 0.8 10*3/uL Normal 0.0-0.9 [facility] Comment on above: Performed By: #### L [id number] ####Kiln Mechanic: NADIA FRENCH ([id number])[facility] ([facility])[address] [place] [address] Monocytes/100 WBC (Bld) 8.8 % Normal 5.0-13.0 [facility] Comment on above: Performed By: #### L [id number] ####Kiln Mechanic: NADIA FRENCH ([id number])[facility])[address] [place] [address] NEUTROPHILS ABSOLUTE 6.4 10*3/uL Normal 1.8-7.5 [facility] Comment on above: Performed By: #### L [id number] ####Kiln Mechanic: NADIA FRENCH ([id number])[facility])[address] [place] [address] Neutrophils/100 WBC (Bld) 73.5 % Normal 38.0-82.[address] [facility] Comment on above: Performed By: #### L [id number] ####Kiln Mechanic: NADIA FRENCH ([id number])[facility])[address] [place] [address] NRBC 0.0 /100 WBCs Normal 0.0-2.[address] [facility] Comment on above: Performed By: #### L [id number] ####Kiln Mechanic: NADIA FRENCH ([id number])[facility] ([facility])[address] [place] [address] Platelet mean volume (Bld) [Entitic vol] 9.6 fL Normal 9.0-12.[address] [facility] Comment on above: Performed By: #### L [id number] ####Kiln Mechanic: NADIA FRENCH ([id number])[facility])[address] [place] [address] Platelets (Bld) [#/Vol] 371 10*3/uL Normal 140-440 [facility] Comment on above: Performed By: #### L [id number] ####Kiln Mechanic: NADIA FRENCH ([id number])[facility] ([facility])[address] [place] [address] RBC (Bld) [#/Vol] 3.10 10*6/uL Low 3.80-5.20 [facility] Comment on above: Performed By: #### L [id number] ####Kiln Mechanic: NADIA FRENCH ([id number])[facility])[address] [place] [address] WBC (Bld) [#/Vol] 8.7 10*3/uL Normal 3.6-10.7 [facility] Comment on above: Performed By: #### L [id number] ####Kiln Mechanic: NADIA FRENCH ([id number])[facility])[address] [place] [address] Progress Noteon 06-23-2025 Progress Note Normal [facility] Progress Note Normal [facility] XR CHEST 1 VIEWon 06-23-2025 XR CHEST 1 VIEW Normal [facility] XR Chest Single viewon 06-23 [facility] Radiology Study observation (narrative) [facility] XR Chest Single viewOrdered By: Bradley German on 06-23-2025 [facility] [employer] Work Phone: [phone] 06-22-2025 [id number] Normal [facility] [id number] 06-22-2025 [id number] Normal [facility] BASIC METABOLIC PANELon 05-29 Anion gap [Moles/Vol] 6 mmol/L Normal 3-13 [facility] Comment on above: Performed By: #### L [id number], LAB15 ####Kiln Mechanic: NADIA FRENCH ([id number])[facility])[address] [place] [address] Calcium [Mass/Vol] 8.1 mg/dL Low 8.8-10.0 [facility] Comment on above: Performed By: #### L [id number], LAB15 ####Kiln Mechanic: NADIA FRENCH ([id number])[facility])[address] [place] [address] Chloride [Moles/Vol] 107 mmol/L Normal 98-107 [facility] Comment on above: Performed By: #### L [id number], LAB15 ####Kiln Mechanic: NADIA FRENCH ([id number])[facility])[address] [place] [address] CO2 [Moles/Vol] 22 mmol/L Low 23-31 [facility] Comment on above: Performed By: #### L [id number], LAB15 ####Kiln Mechanic: NADIA FRENCH ([id number])[facility])[address] [place] [address] Creatinine [Mass/Vol] 1.21 mg/dL High 0.57-1.11 [facility] Comment on above: Performed By: #### L [id number], LAB15 ####Kiln Mechanic: NADIA FRENCH ([id number])[facility])[address] [place] [address] GLOMERULAR FILTRATION RATE ML/MIN/1.73 SQ M.PREDICTED 51.1 mL/min/1.73m*2 Low >60.0 [facility] Comment on above: Result Comment: Calc ulation based on the Chronic Kidney Disease Epidemiology Collaboration (CKD-EPI) equation refit without adjustment for race Performed By: #### L [id number], LAB15 ####Kiln Mechanic: NADIA FRENCH ([id number])[facility])[address] [place] [address] Glucose [Mass/Vol] 102 mg/dL Normal 82-115 [facility] Comment on above: Performed By: #### L [id number], LAB15 ####Kiln Mechanic: NADIA FRENCH ([id number])[facility])[address] [place] [address] Potassium [Moles/Vol] 4.5 mmol/L Normal 3.5-5.1 [facility] Comment on above: Result Comment: [facility] potassium values may be up to 0.5 mmol/L lower than serum values. Performed By: #### L [id number], LAB15 ####Kiln Mechanic: NADIA FRENCH ([id number])[facility])[address] [place] [address] Sodium [Moles/Vol] 135 mmol/L Low 136-145 [facility] Comment on above: Performed By: #### L [id number], LAB15 ####Kiln Mechanic: NADIA FRENCH ([id number])[facility])[address] [place] [address] Urea nitrogen [Mass/Vol] 30 mg/dL High 9-23 [facility] Comment on above: Performed By: #### L [id number], LAB15 ####Kiln Mechanic: NADIA FRENCH ([id number])[facility])[address] [place] [address] BLOOD GAS ARTERIALon 025 AMOUNT OF OXYGEN 15L Normal [facility] Comment on above: Performed By: #### L [id number] ####Kiln Mechanic: NADIA FRENCH ([id number])[facility])[address] [place] [address] Base excess Calc (Bld) [Moles/Vol] 0.6 mmol/L Normal -3.0-3.0 [facility] Comment on above: Performed By: #### L [id number] ####Kiln Mechanic: NADIA FRENCH ([id number])[facility])[address] [place] [address] [place] CO2 [Moles/Vol] 24.8 mmol/L Normal 23.0-27.[address] [facility] Comment on above: Performed By: #### L [id number] ####Kiln Mechanic: NADIA FRENCH ([id number])[facility])[address] [place] [address] HCO3 (Bld) [Moles/Vol] 23.8 mmol/L Normal 21.0-25.0 [facility] Comment on above: Performed By: #### L [id number] ####Kiln Mechanic: NADIA FRENCH ([id number])[facility])[address] [place] [address] Hemoglobin (Bld) [Mass/Vol] 9.3 g/dL Normal Screen only [facility] Comment on above: Performed By: #### L [id number] ####Kiln Mechanic: NADIA FRENCH ([id number])[address] OXYGEN SATURATION (%) IN ARTERIAL BLOOD 95.9 % Normal 95.0-100.[address] [facility] Comment on above: Performed By: #### L [id number] ####Kiln Mechanic: NADIA FRENCH ([id number])[facility])[address] [place] [address] PCO2 ARTERIAL 32.5 mm Hg Low >35.0-<45. [address] [facility] Comment on above: Performed By: #### L [id number] ####Kiln Mechanic: NADIA FRENCH ([id number])[facility])[address] [place] [address] PH ARTERIAL 7.482 High 7.350-7.[address] [facility] Comment on above: Performed By: #### L [id number] ####Kiln Mechanic: NADIA FRENCH ([id number])[address] PO2 ARTERIAL 79.2 mm Hg Low 80.0-100.[address] [facility] Comment on above: Performed By: #### L [id number] ####Kiln Mechanic: NADIA FRENCH ([id number])[facility])[address] [place] [address] SOURCE OF OXYGEN [place] High Flow Ten al Cannula (6-15 LPM) Normal [facility] Comment on above: Performed By: #### L [id number] ####Kiln Mechanic: NADIA FRENCH ([id number])[facility] ([facility])[address] [place] [address] Bacteria identified Cx Nom ( Bld)on 06-22-2025 Interpretation and review of laboratory results Normal [facility] Basic metabolic 1998 panelon 06-22-2025 Anion gap [Moles/Vol] 6 mmol/L 3 - 13 mmol/L [facility] Calcium [Mass/Vol] 8.1 mg/dL Low 8.8 - 10. 0 mg/dL [facility] Chloride [Moles/Vol] 107 mmol/L 98 - 10 7 mmol/L [facility] CO2 [Moles/Vol] 22 mmol/L Low 23 - 31 mmol/L [facility] Creatinine [Mass/Vol] 1.21 mg/dL High 0.57 - 1.11 mg/dL [facility] GFR/1.73 sq M.predicted (S/P/Bld) [Vol rate/Area] 51.1 mL/min Low - PINF [facility] Glucose [Mass/Vol] 102 mg/dL 82 - 115 mg/dL [facility] Interpretation and review of laboratory results Abnormal [facility] Potassium [Moles/Vol] 4.5 mmol/L 3.5 - 5.1 mmol/L [facility] Sodium [Moles/Vol] 135 mmol/L Low 136 - 145 mmol/L [facility] Urea nitrogen [Mass/Vol] 30 mg/dL High 9 - 23 mg/dL [facility] CBC W Auto Differential pane l (Bld)on 06-22-2025 Basophils (Bld) [#/Vol] 0.1 10*3/uL 0.0 - 0.2 10*3/uL [facility] Basophils/100 WBC (Bld) 0.7 % 0.0 - 2.0 % [facility] Eosinophils (Bld) [#/Vol] 0.2 10*3/uL 0.0 - 0.5 10*3/uL [facility] Eosinophils/100 WBC (Bld) 1.7 % 0.0 - 6.0 % [facility] [employer] Erythrocyte distribution width (RBC) [Ratio] 22.9 % High 11.5 - 15.0 % [facility] Hematocrit (Bld) [Volume fraction] 30 % Low 35.0 - 47.0 % [facility] Hemoglobin (Bld) [Mass/Vol] 8.7 g/dL Low 11.7 - 16.0 g/dL [facility] [employer] Immature granulocytes (Bld) [#/Vol] 0.1 10*3/uL High NINF - 0.1 10*3/uL [facility] Immature granulocytes/100 WBC (Bld) 0.5 % 0.0 - 2.0 % [facility] Interpretation and review of laboratory results Abnormal [facility] [employer] Lymphocytes (Bld) [#/Vol] 1.7 10*3/uL 1.0 - 4.3 10*3/uL [facility] Lymphocytes/100 WBC (Bld) 16.5 % 15.0 - 45.0 % [facility] [employer] MCH (RBC) [Entitic mass] 23.9 pg Low 26.0 - 34.0 pg [facility] MCHC (RBC) [Mass/Vol] 29 % Low 30.5 - 36.0 % [facility] MCV (RBC) [Entitic vol] 82.4 fL 77.0 - 99.0 fL [facility] [employer] Monocytes (Bld) [#/Vol] 0.7 10*3/uL 0.0 - 0.9 10*3/uL [facility] Monocytes/100 WBC (Bld) 6.7 % 5.0 - 13.0 % [facility] [employer] Neutrophils (Bld) [#/Vol] 7.8 10*3/uL High 1.8 - 7.5 10*3/uL [facility] Neutrophils/100 WBC (Bld) 73.9 % 38.0 - 82.0 % [facility] [employer] Nucleated RBC/100 WBC (Bld) [Ratio] 0 % [facility] [employer] Platelet mean volume (Bld) [Entitic vol] 9.1 fL 9.0 - 12.7 fL [facility] Platelets (Bld) [#/Vol] 437 10*3/uL 140 - 440 10*3/uL [facility] RBC (Bld) [#/Vol] 3.64 10*6/uL Low 3.80 - 5.20 10*6/uL [facility] WBC (Bld) [#/Vol] 10.5 10*3/uL 3.6 - 10.7 10*3/uL [facility] CBC WITH AUTO DIFFERENTIALon 06-22-2025 Basophils (Bld) [#/Vol] 0.1 10*3/uL Normal 0.0-0.[address] [facility] Comment on above: Performed By: #### L [id number] ####Kiln Mechanic: NADIA FRENCH ([id number])[facility])[address] [place] [address] Basophils/100 WBC (Bld) 0.7 % Normal 0.0-2.0 [facility] Comment on above: Performed By: #### L [id number] ####Kiln Mechanic: NADIA FRENCH ([id number])[facility])[address] [place] [address] Eosinophils (Bld) [#/Vol] 0.2 10*3/uL Normal 0.0-0.[address] [facility] Comment on above: Performed By: #### L [id number] ####Kiln Mechanic: NADIA FRENCH ([id number])[facility])[address] [place] [address] Eosinophils/100 WBC (Bld) 1.7 % Normal 0.0-6.[address] [facility] Comment on above: Performed By: #### L [id number] ####Kiln Mechanic: NADIA FRENCH ([id number])[facility])[address] [place] [address] Erythrocyte distribution width (RBC) [Ratio] 22.9 % High 11.5-15.[address] [facility] Comment on above: Performed By: #### L [id number] ####Kiln Mechanic: NADIA FRENCH ([id number])[facility])[address] [place] [address] Hematocrit (Bld) [Volume fraction] 30.0 % Low 35.0-47.[address] [facility] Comment on above: Performed By: #### L [id number] ####Kiln Mechanic: NADIA FRENCH ([id number])[facility])[address] [place] [address] Hemoglobin (Bld) [Mass/Vol] 8.7 g/dL Low 11.7-16.[address] [facility] Comment on above: Performed By: #### L [id number] ####Kiln Mechanic: NADIA FRENCH ([id number])[facility])[address] [place] [address] IMMATURE GRANS % 0.5 % Normal 0.0-2.0 [facility] Comment on above: Performed By: #### L [id number] ####Kil[employer] Mechanic: NADIA FRENCH ([id number])[address] IMMATURE GRANS ABSOLUTE 0.1 10*3/uL High <0.1 [facility] Comment on above: Performed By: #### L [id number] ####Kiln Mechanic: NADIA FRENCH ([id number])[facility])[address] [place] [address] Lymphocytes (Bld) [#/Vol] 1.7 10*3/uL Normal 1.0-4.3 [facility] Comment on above: Performed By: #### L [id number] ####Kiln Mechanic: NADIA FRENCH ([id number])[facility])[address] [place] [address] Lymphocytes/100 WBC (Bld) 16.5 % Normal 15.0-45.[address] [facility] Comment on above: Performed By: #### L [id number] ####Kiln Mechanic: NADIA FRENCH ([id number])[facility])[address] [place] [address] MCH (RBC) [Entitic mass] 23.9 pg Low 26.0-34.[address] [facility] Comment on above: Performed By: #### L [id number] ####Kil[employer] Mechanic: NADIA FRENCH ([id number])[facility])[address] [place] [address] MCHC 29.0 % Low 30.5-36.[address] [facility] Comment on above: Performed By: #### L [id number] ####[employer]ic: NADIA FRENCH ([id number])[facility])[address] [place] [address] MCV (RBC) [Entitic vol] 82.4 fL Normal 77.0-99.0 [facility] Comment on above: Performed By: #### L [id number] ####Kil[employer] Mechanic: NADIA FRENCH ([id number])[facility])[address] [place] [address] Monocytes (Bld) [#/Vol] 0.7 10*3/uL Normal 0.0-0.[address] [facility] Comment on above: Performed By: #### L [id number] ####Kil[employer] Mechanic: NADIA FRENCH ([id number])[facility])[address] [place] [address] Monocytes/100 WBC (Bld) 6.7 % Normal 5.0-13.0 [facility] Comment on above: Performed By: #### L [id number] ####K[employer]ic: NADIA FRENCH ([id number])[facility])[address] [place] [address] NEUTROPHILS ABSOLUTE 7.8 10*3/uL High 1.8-7.5 [facility] Comment on above: Performed By: #### L [id number] ####Kil[employer] Mechanic: NADIA FRENCH ([id number])[facility])[address] [place] [address] Neutrophils/100 WBC (Bld) 73.9 % Normal 38.0-82.[address] [facility] Comment on above: Performed By: #### L [id number] ####Kil[employer]ic: NADIA FRENCH ([id number])[facility])[address] [place] [address] NRBC 0.0 /100 WBCs Normal 0.0-2.[address] [facility] Comment on above: Performed By: #### L [id number] ####Kiln Mechanic: NADIA FRENCH ([id number])[facility])[address] [place] [address] Platelet mean volume (Bld) [Entitic vol] 9.1 fL Normal 9.0-12.7 [facility] Comment on above: Performed By: #### L [id number] ####Kil[employer] Mechanic: NADIA FRENCH ([id number])[facility])[address] [place] [address] Platelets (Bld) [#/Vol] 437 10*3/uL Normal 140-440 [facility] Comment on above: Performed By: #### L [id number] ####[employer]ic: NADIA FRENCH ([id number])[facility])[address] [place] [address] RBC (Bld) [#/Vol] 3.64 10*6/uL Low 3.80-5.20 [facility] Comment on above: Performed By: #### L [id number] ####[employer]ic: NADIA FRENCH ([id number])[facility])[address] [place] [address] WBC (Bld) [#/Vol] 10.5 10*3/uL Normal 3.6-10.7 [facility] Comment on above: Performed By: #### L [id number] ####[employer]ic: NADIA FRENCH ([id number])[facility])[address] [place] [address] Consulton 06-22-2025 Consult Normal [facility] Laboratory - Chemistry and C hemistry - challengeOrdered By: Esteban Mera on 06-22-2025 Base excess Calc (Bld) [Moles/Vol] 0.6 mmol/L -3.0 - 3.0 mmol/L [facility] CO2 (Bld) [Partial pressure] 32.5 mm[Hg] Low - PINF [facility] CO2 [Moles/Vol] 24.8 mmol/L 23.0 - 27.0 mmol/L [facility] HCO3 (Bld) [Moles/Vol] 23.8 mmol/L 21.0 - 25.0 mmol/L [facility] Oxygen (Bld) [Partial pressure] 79.2 mm[Hg] Low [facility] pH (Bld) 7.482 [pH] High 7.350 - 7.450 [facility] Laboratory - Hematology and Cell countsOrdered By: Esteban Mera on 06-22-2025 Hemoglobin (Bld) [Mass/Vol] 9.3 g/dL 7.0 g/dl [facility] Laboratory - Microbiology an d Antimicrobial susceptibilityon 06-22-2025 Bacteria identified Cx Nom (Bld) No growth at 5 days [facility] NT PRO BNPon 06-22-2025 Natriuretic peptide B (Bld) [Mass/Vol] 14297 pg/mL High <334 [facility] Comment on above: [...] new. Performed By: #### L AB106, LAB15 ####Kiln Mechanic: NADIA FRENCH ([id number])[facility] ([address] Natriuretic peptide B [Mass/ Vol]on 06-22-2025 Interpretation and review of laboratory results Abnormal [facility] Natriuretic peptide B (Bld) [Mass/Vol] 69908 pg/mL High NINF - 334 pg/mL [facility] No Panel InformationOrdered By: Esteban Mera on 06-22-2025 Amount Of Oxygen 15L [facility] Interpretation and review of laboratory results Abnormal [facility] Source Of Oxygen [place] High Flow Ten al Cannula (6-15 LPM) [facility] Progress Noteon 06-22-2025 Progress Note PHYSICAL THERAPY [facility] Name/MRN: Nancy Delacruz ([id number]) Date: 06/22/2025 Treatment is being deferred at present because pt medical status does not allow participation: Respiratory status. Shant Shea, PT Normal [facility] Progress Note Normal [facility] Progress Note Normal [facility] Progress Note Reviewed Dr. Arenas's note from 06/21/2025. Patient ok to eat today. Not able to add on to OR schedule. Trying to schedule dilation and curettage and levonorgestrel intrauterine device placement for Wednesday. Normal [facility] Progress Note Normal [facility] RESPIRATORY CULTURE AND STAI Non 06-22-2025 RESPIRATORY CULTURE AND STAIN Normal [facility] Comment on above: Performed By: #### L [id number] ####Kil[employer] Mechanic: NADIA FRENCH ([id number])[facility] ([employer])[address] [place] [address] XR CHEST 1 VIEWon 06-22-2025 XR CHEST 1 VIEW Normal [facility] XR Chest Single viewon 06-22 [facility] Radiology Study observation (narrative) [facility] XR Chest Single viewOrdered By: Tom Guillory on 06-22-2025 [facility] Work Phone: [phone] 06-21-2025 [id number] [facility] [facility] BASIC METABOLIC PANELon 05-29 Anion gap [Moles/Vol] 6 mmol/L Normal 3-13 [facility] Comment on above: Performed By: #### L [id number] ####Kiln Mechanic: NADIA FRENCH ([id number])[facility] ([employer])[address] [place] [address] Calcium [Mass/Vol] 8.3 mg/dL Low 8.8-10.0 [facility] Comment on above: Performed By: #### L [id number] ####Kiln Mechanic: NADIA FRENCH ([id number])[facility] ([facility])[address] [place] [address] Chloride [Moles/Vol] 110 mmol/L High 98-107 [facility] Comment on above: Performed By: #### L [id number] ####Kiln Mechanic: NADIA FRENCH ([id number])[facility])[address] [place] [address] CO2 [Moles/Vol] 23 mmol/L Normal 23-31 [facility] Comment on above: Performed By: #### L [id number] ####Kiln Mechanic: NADIA FRENCH ([id number])[facility])[address] [place] [address] Creatinine [Mass/Vol] 1.03 mg/dL Normal 0.57-1.11 [facility] Comment on above: Performed By: #### L [id number] ####Kiln Mechanic: NADIA FRENCH ([id number])[facility])[address] [place] [address] [place] GLOMERULAR FILTRATION RATE ML/MIN/1.73 SQ M.PREDICTED 62.0 mL/min/1.73m*2 Normal >60.0 [facility] Comment on above: Result Comment: Calc ulation based on the Chronic Kidney Disease Epidemiology Collaboration (CKD-EPI) equation refit without adjustment for race Performed By: #### L [id number] ####Kiln Mechanic: NADIA FRENCH ([id number])[facility] ([facility])[address] [place] [address] [place] Glucose [Mass/Vol] 83 mg/dL Normal 82-115 [facility] Comment on above: Performed By: #### L [id number] ####Kiln Mechanic: NADIA FRENCH ([id number])[facility])[address] [place] [address] [place] Potassium [Moles/Vol] 4.6 mmol/L Normal 3.5-5.1 [facility] Comment on above: Result Comment: [facility]as [facility] potassium values may be up to 0.5 mmol/L lower than serum values. Performed By: #### L [id number] ####Kiln Mechanic: NADIA FRENCH ([id number])[facility] ([facility])[address] [place] [address] Sodium [Moles/Vol] 139 mmol/L Normal 136-145 [facility] Comment on above: Performed By: #### L [id number] ####Kiln Mechanic: NADIA FRENCH ([id number])[facility] ([facility])[address] [place] [address] Urea nitrogen [Mass/Vol] 28 mg/dL High 9-23 [facility] Comment on above: Performed By: #### L [id number] ####Kiln Mechanic: NADIA FRENCH ([id number])[facility] ([facility])[address] [place] [address] Bacteria identified Aer cx N om (Lower resp)Ordered By: Georgina Read on 06-21-2025 Gram Stain Result Few Epithelial cells per low power field Abnormal [facility] Gram Stain Result Moderate Polymorphon uclear leukocytes per low power field Abnormal [facility] Gram Stain Result Positive Abnormal [facility] Interpretation and review of laboratory results Abnormal [facility] Basic metabolic 1998 panelon 06-21-2025 Anion gap [Moles/Vol] 6 mmol/L 3 - 13 mmol/L [facility] Calcium [Mass/Vol] 8.3 mg/dL Low 8.8 - 10. 0 mg/dL [facility] Chloride [Moles/Vol] 110 mmol/L High 98 - 10 7 mmol/L [facility] CO2 [Moles/Vol] 23 mmol/L 23 - 31 mmol/L [facility] Creatinine [Mass/Vol] 1.03 mg/dL 0.57 - 1.11 mg/dL [facility] GFR/1.73 sq M.predicted (S/P/Bld) [Vol rate/Area] 62 mL/min - PINF [facility] Glucose [Mass/Vol] 83 mg/dL 82 - 115 mg/dL [facility] Interpretation and review of laboratory results Abnormal [facility] Potassium [Moles/Vol] 4.6 mmol/L 3.5 - 5.1 mmol/L [facility] Sodium [Moles/Vol] 139 mmol/L 136 - 145 mmol/L [facility] Urea nitrogen [Mass/Vol] 28 mg/dL High 9 - 23 mg/dL [facility] CBC W Auto Differential pane l (Bld)on 06-21-2025 Basophils (Bld) [#/Vol] 0.1 10*3/uL 0.0 - 0.2 10*3/uL [facility] Basophils/100 WBC (Bld) 0.7 % 0.0 - 2.0 % [facility] Eosinophils (Bld) [#/Vol] 0.2 10*3/uL 0.0 - 0.5 10*3/uL [facility] Eosinophils/100 WBC (Bld) 2.7 % 0.0 - 6.0 % [facility] Erythrocyte distribution width (RBC) [Ratio] 22.7 % High 11.5 - 15.0 % [facility] Hematocrit (Bld) [Volume fraction] 29.1 % Low 35.0 - 47.0 % [facility] Hemoglobin (Bld) [Mass/Vol] 8.4 g/dL Low 11.7 - 16.0 g/dL [facility] Immature granulocytes (Bld) [#/Vol] 0.1 10*3/uL High NINF - 0.1 10*3/uL [facility] Immature granulocytes/100 WBC (Bld) 0.6 % 0.0 - 2.0 % [facility] Interpretation and review of laboratory results Abnormal [facility] Lymphocytes (Bld) [#/Vol] 1.4 10*3/uL 1.0 - 4.3 10*3/uL [facility] Lymphocytes/100 WBC (Bld) 15.8 % 15.0 - 45.0 % [facility] MCH (RBC) [Entitic mass] 24 pg Low 26.0 - 34.0 pg [facility] MCHC (RBC) [Mass/Vol] 28.9 % Low 30.5 - 36.0 % [facility] MCV (RBC) [Entitic vol] 83.1 fL 77.0 - 99.0 fL [facility] Monocytes (Bld) [#/Vol] 0.6 10*3/uL 0.0 - 0.9 10*3/uL [facility] Monocytes/100 WBC (Bld) 6.8 % 5.0 - 13.0 % [facility] Neutrophils (Bld) [#/Vol] 6.4 10*3/uL 1.8 - 7.5 10*3/uL [facility] Neutrophils/100 WBC (Bld) 73.4 % 38.0 - 82.0 % [facility] Nucleated RBC/100 WBC (Bld) [Ratio] 0 % [facility] Platelet mean volume (Bld) [Entitic vol] 9.8 fL 9.0 - 12.7 fL [facility] Platelets (Bld) [#/Vol] 460 10*3/uL High 140 - 440 10*3/uL [facility] RBC (Bld) [#/Vol] 3.5 10*6/uL Low 3.80 - 5.20 10*6/uL [facility] WBC (Bld) [#/Vol] 8.8 10*3/uL 3.6 - 10.7 10*3/uL [facility] CBC WITH AUTO DIFFERENTIALon 06-21-2025 Basophils (Bld) [#/Vol] 0.1 10*3/uL Normal 0.0-0.[address] [facility] Comment on above: Performed By: #### L [id number] ####Kiln Mechanic: NADIA FRENCH ([id number])[address] Basophils/100 WBC (Bld) 0.7 % Normal 0.0-2.0 [facility] Comment on above: Performed By: #### L [id number] ####Kiln Mechanic: NADIA FRENCH ([id number])[facility])[address] [place] [address] Eosinophils (Bld) [#/Vol] 0.2 10*3/uL Normal 0.0-0.[address] [facility] Comment on above: Performed By: #### L [id number] ####Kiln Mechanic: NADIA FRENCH ([id number])[facility])[address] [place] [address] Eosinophils/100 WBC (Bld) 2.7 % Normal 0.0-6.[address] [facility] Comment on above: Performed By: #### L [id number] ####Kiln Mechanic: NADIA FRENCH ([id number])[facility])[address] [place] [address] Erythrocyte distribution width (RBC) [Ratio] 22.7 % High 11.5-15.[address] [facility] Comment on above: Performed By: #### L [id number] ####Kiln Mechanic: NADIA FRENCH ([id number])[facility])[address] [place] [address] Hematocrit (Bld) [Volume fraction] 29.1 % Low 35.0-47.0 [facility] Comment on above: Performed By: #### L [id number] ####Kiln Mechanic: NADIA FRENCH ([id number])[address] Hemoglobin (Bld) [Mass/Vol] 8.4 g/dL Low 11.7-16.[address] [facility] Comment on above: Performed By: #### L [id number] ####Kiln Mechanic: NADIA FRENCH ([id number])[facility])[address] [place] [address] IMMATURE GRANS % 0.6 % Normal 0.0-2.[address] [facility] Comment on above: Performed By: #### L [id number] ####Kiln Mechanic: NADIA FRENCH ([id number])[address] IMMATURE GRANS ABSOLUTE 0.1 10*3/uL High <0.[address] [facility] Comment on above: Performed By: #### L [id number] ####Kiln Mechanic: NADIA FRENCH ([id number])[facility])[address] [place] [address] Lymphocytes (Bld) [#/Vol] 1.4 10*3/uL Normal 1.0-4.[address] [facility] Comment on above: Performed By: #### L [id number] ####Kiln Mechanic: NADIA FRENCH ([id number])[facility] [address] Lymphocytes/100 WBC (Bld) 15.8 % Normal 15.0-45.[address] [facility] Comment on above: Performed By: #### L [id number] ####Kiln Mechanic: NADIA FRENCH ([id number])[facility])[address] [place] [address] MCH (RBC) [Entitic mass] 24.0 pg Low 26.0-34.[address] [facility] Comment on above: Performed By: #### L [id number] ####Kiln Mechanic: NADIA FRENCH ([id number])[facility])[address] [place] [address] MCHC 28.9 % Low 30.5-36.[address] [facility] Comment on above: Performed By: #### L [id number] ####Kiln Mechanic: NADIA FRENCH ([id number])[facility] ([facility])[address] [place] [address] MCV (RBC) [Entitic vol] 83.1 fL Normal 77.0-99.0 [facility] Comment on above: Performed By: #### L [id number] ####Kiln Mechanic: NADIA FRENCH ([id number])[facility] ([facility])[address] [place] [address] Monocytes (Bld) [#/Vol] 0.6 10*3/uL Normal 0.0-0.[address] [facility] Comment on above: Performed By: #### L [id number] ####Kiln Mechanic: NADIA FRENCH ([id number])[facility] ([facility])[address] [place] [address] Monocytes/100 WBC (Bld) 6.8 % Normal 5.0-13.0 [facility] Comment on above: Performed By: #### L [id number] ####Kiln Mechanic: NADIA FRENCH ([id number])[facility] ([facility])[address] [place] [address] NEUTROPHILS ABSOLUTE 6.4 10*3/uL Normal 1.8-7.5 [facility] Comment on above: Performed By: #### L [id number] ####Kiln Mechanic: NADIA FRENCH ([id number])[facility])[address] [place] [address] Neutrophils/100 WBC (Bld) 73.4 % Normal 38.0-82.0 [facility] Comment on above: Performed By: #### L [id number] ####Kiln Mechanic: NADIA FRENCH ([id number])[facility] ([facility])[address] [place] [address] NRBC 0.0 /100 WBCs Normal 0.0-2.0 [facility] Comment on above: Performed By: #### L [id number] ####Kiln Mechanic: NADIA FRENCH ([id number])[facility])[address] [place] [address] Platelet mean volume (Bld) [Entitic vol] 9.8 fL Normal 9.0-12.7 [facility] Comment on above: Performed By: #### L [id number] ####Kiln Mechanic: NADIA FRENCH ([id number])[facility] ([facility])[address] [place] [address] Platelets (Bld) [#/Vol] 460 10*3/uL High 140-440 [facility] Comment on above: Performed By: #### L [id number] ####Kiln Mechanic: NADIA FRENCH ([id number])[facility])[address] [place] [address] RBC (Bld) [#/Vol] 3.50 10*6/uL Low 3.80-5.[address] [facility] Comment on above: Performed By: #### L [id number] ####Kiln Mechanic: NADIA FRENCH ([id number])[facility])[address] [place] [address] WBC (Bld) [#/Vol] 8.8 10*3/uL Normal 3.6-10.[address] [facility] Comment on above: Performed By: #### L [id number] ####Kiln Mechanic: NADIA FRENCH ([id number])[facility] ([facility])[address] [place] [address] Laboratory - Microbiology an d Antimicrobial susceptibilityOrdered By: Georgina Horn on 06-21-2025 Bacteria identified Aer cx Nom (Lower resp) Rare respiratory amita present. [facility] Progress Noteon 06-21-2025 Progress Note Normal [facility] Progress Note Normal [facility] Progress Note Normal [facility] Progress Note Pt took off [place] to cl adriano out nose, desated to 70's Placed on pap for 15 min and will return to 6 L [place] Normal [facility] Progress Note Normal [facility] [id number] 06-20-2025 [id number] Normal [facility] [id number] Normal [facility] BASIC METABOLIC PANELon 05-29 Anion gap [Moles/Vol] 7 mmol/L Normal 3-13 [facility] Comment on above: Performed By: #### L [id number] ####Kiln Mechanic: NADIA FRENCH ([id number])[facility] ([facility])[address] [place] [address] Calcium [Mass/Vol] 7.4 mg/dL Low 8.8-10.0 [facility] Comment on above: Performed By: #### L [id number] ####Kiln Mechanic: NADIA FRENCH ([id number])[facility])[address] [place] [address] Chloride [Moles/Vol] 111 mmol/L High 98-107 [facility] Comment on above: Performed By: #### L [id number] ####Kiln Mechanic: NADIA FRENCH ([id number])[facility] ([facility])[address] [place] [address] [place] CO2 [Moles/Vol] 19 mmol/L Low 23-31 [facility] Comment on above: Performed By: #### L [id number] ####Kiln Mechanic: NADIA FRENCH ([id number])[facility])[address] [place] [address] [place] Creatinine [Mass/Vol] 1.15 mg/dL High 0.57-1.11 [facility] Comment on above: Performed By: #### L [id number] ####Kiln Mechanic: NADIA FRENCH ([id number])[facility])[address] [place] [address] GLOMERULAR FILTRATION RATE ML/MIN/1.73 SQ M.PREDICTED 54.3 mL/min/1.73m*2 Low >60.0 [facility] Comment on above: Result Comment: Calc ulation based on the Chronic Kidney Disease Epidemiology Collaboration (CKD-EPI) equation refit without adjustment for race Performed By: #### L [id number] ####Kiln Mechanic: NADIA FRENCH ([id number])[address] Glucose [Mass/Vol] 77 mg/dL Low 82-115 [facility] Comment on above: Performed By: #### L [id number] ####Kiln Mechanic: NADIA FRENCH ([id number])[address] Potassium [Moles/Vol] 4.3 mmol/L Normal 3.5-5.1 [facility] Comment on above: Result Comment: [facility] potassium values may be up to 0.5 mmol/L lower than serum values. Performed By: #### L [id number] ####Kiln Mechanic: NADIA FRENCH ([id number])[address] Sodium [Moles/Vol] 137 mmol/L Normal 136-145 [facility] Comment on above: Performed By: #### L [id number] ####Kiln Mechanic: NADIA FRENCH ([id number])[facility])[address] [place] [address] Urea nitrogen [Mass/Vol] 33 mg/dL High 9-23 [facility] Comment on above: Performed By: #### L [id number] ####Kiln Mechanic: NADIA [id number])[facility])[address] [place] [address] Basic metabolic 1998 panelon 06-20-2025 Anion gap [Moles/Vol] 7 mmol/L 3 - 13 mmol/L [facility] Calcium [Mass/Vol] 7.4 mg/dL Low 8.8 - 10. 0 mg/dL [facility] Chloride [Moles/Vol] 111 mmol/L High 98 - 10 7 mmol/L [facility] CO2 [Moles/Vol] 19 mmol/L Low 23 - 31 mmol/L [facility] Creatinine [Mass/Vol] 1.15 mg/dL High 0.57 - 1.11 mg/dL [facility] GFR/1.73 sq M.predicted (S/P/Bld) [Vol rate/Area] 54.3 mL/min Low - PINF [facility] Glucose [Mass/Vol] 77 mg/dL Low 82 - 115 mg/dL [facility] Interpretation and review of laboratory results Abnormal [facility] Potassium [Moles/Vol] 4.3 mmol/L 3.5 - 5.1 mmol/L [facility] Sodium [Moles/Vol] 137 mmol/L 136 - 145 mmol/L [facility] Urea nitrogen [Mass/Vol] 33 mg/dL High 9 - 23 mg/dL [facility] CBC W Auto Differential pane l (Bld)on 06-20-2025 Erythrocyte distribution width (RBC) [Ratio] 22.5 % High 11.5 - 15.0 % [facility] Hematocrit (Bld) [Volume fraction] 25.8 % Low 35.0 - 47.0 % [facility] Hemoglobin (Bld) [Mass/Vol] 7.7 g/dL Low 11.7 - 16.0 g/dL [facility] Interpretation and review of laboratory results Abnormal [facility] IPF 2 [facility] MCH (RBC) [Entitic mass] 24.1 pg Low 26.0 - 34.0 pg [facility] MCHC (RBC) [Mass/Vol] 29.8 % Low 30.5 - 36.0 % [facility] MCV (RBC) [Entitic vol] 80.6 fL 77.0 - 99.0 fL [facility] Platelet mean volume (Bld) [Entitic vol] 9.5 fL 9.0 - 12.7 fL [facility] Platelets (Bld) [#/Vol] 339 10*3/uL 140 - 440 10*3/uL [facility] RBC (Bld) [#/Vol] 3.2 10*6/uL Low 3.80 - 5.20 10*6/uL [facility] WBC (Bld) [#/Vol] 9.1 10*3/uL 3.6 - 10.7 10*3/uL [facility] CBC WITH AUTO DIFFERENTIALon 06-20-2025 Erythrocyte distribution width (RBC) [Ratio] 22.5 % High 11.5-15.0 [facility] Comment on above: Performed By: #### L [id number], [id number] ####Kiln Mechanic: NADIA FRENCH ([id number])[facility])[address] [place] [address] Hematocrit (Bld) [Volume fraction] 25.8 % Low 35.0-47.[address] [facility] Comment on above: Performed By: #### Jama [id number], [id number] ####Kiln Mechanic: NADIA FRENCH ([id number])[facility])[address] [place] [address] Hemoglobin (Bld) [Mass/Vol] 7.7 g/dL Low 11.7-16.[address] [facility] Comment on above: Performed By: #### L [id number], [id number] ####Kiln Mechanic: NADIA FRENCH ([id number])[facility])[address] [place] [address] IPF [address] [facility] Comment on above: Performed By: #### L [id number], [id number] ####Kiln Mechanic: NADIA FRENCH ([id number])[facility])[address] [place] [address] MCH (RBC) [Entitic mass] 24.1 pg Low 26.0-34.[address] [facility] Comment on above: Performed By: #### L [id number], [id number] ####Kiln Mechanic: NADIA FRENCH ([id number])[facility])[address] [place] [address] MCHC 29.8 % Low 30.5-36.0 [facility] Comment on above: Performed By: #### L [id number], [id number] ####Kiln Mechanic: NADIA FRENCH ([id number])[facility])[address] [place] [address] MCV (RBC) [Entitic vol] 80.6 fL Normal 77.0-99.0 [facility] Comment on above: Performed By: #### L [id number], [id number] ####Kiln Mechanic: NADIA FRENCH ([id number])[facility] ([facility])[address] [place] [address] Platelet mean volume (Bld) [Entitic vol] 9.5 fL Normal 9.0-12.7 [facility] Comment on above: Performed By: #### L [id number], [id number] ####Kiln Mechanic: NADIA FRENCH ([id number])[facility] ([facility])[address] [place] [address] Platelets (Bld) [#/Vol] 339 10*3/uL Normal 140-440 [facility] Comment on above: Performed By: #### L [id number], [id number] ####Kiln Mechanic: NADIA FRENCH ([id number])[facility])[address] [place] [address] RBC (Bld) [#/Vol] 3.20 10*6/uL Low 3.80-5.20 [facility] Comment on above: Performed By: #### L [id number], [id number] ####Kiln Mechanic: NADIA FRENCH ([id number])[facility])[address] [place] [address] WBC (Bld) [#/Vol] 9.1 10*3/uL Normal 3.6-10.7 [facility] Comment on above: Performed By: #### L [id number], [id number] ####Kiln Mechanic: NADIA FRENCH ([id number])[facility] ([facility])[address] [place] [address] Laboratory - Chemistry and C hemistry - challengeon 06-20-2025 Sodium (24H U) [Mass/Vol] 91 mmol/L [facility] Laboratory - Hematology and Cell countson 06-20-2025 Anisocytosis Ql (Bld) Moderate Abnormal (none) [facility] Band form neutrophils (Bld) [#/Vol] 0.1 10*3/uL High NINF - 0.0 10*3/uL [facility] Band form neutrophils/100 WBC (Bld) 1 % High NINF - 0 % [facility] Basophils (Bld) [#/Vol] 0.1 10*3/uL 0.0 - 0.2 10*3/uL [facility] Basophils/100 WBC (Bld) 1 % 0 - 2 % [facility] cells LM Ql (Bld) Slight Abnormal (none) [facility] Eosinophils (Bld) [#/Vol] 0.1 10*3/uL 0.0 - 0.5 10*3/uL [facility] Eosinophils/100 WBC (Bld) 1 % 0 - 6 % [facility] Hypochromia Ql (Bld) Slight Abnormal (none) [facility] Lymphocytes (Bld) [#/Vol] 1.5 10*3/uL 1.0 - 4.3 10*3/uL [facility] Lymphocytes/100 WBC (Bld) 17 % 15 - 45 % [facility] Macrocytes Ql (Bld) Slight Abnormal (none) [facility] Microcytes Ql (Bld) Moderate Abnormal (none) [facility] Monocytes (Bld) [#/Vol] 0.5 10*3/uL 0.0 - 0.9 10*3/uL [facility] Monocytes/100 WBC (Bld) 6 % 5 - 13 % [facility] Neutrophils (Bld) [#/Vol] 6.7 10*3/uL 1.8 - 7.5 10*3/uL [facility] Ovalocytes LM Ql (Bld) Slight Abnormal (none) [facility] Poikilocytosis LM Ql (Bld) Slight Abnormal (none) [facility] RBC morphology finding Nom (Bld) abnormal [facility] Schistocytes LM Ql (Bld) Slight Abnormal (none) [facility] Segmented neutrophils/100 WBC (Bld) 73 % 38 - 82 % [facility] MANUAL DIFFERENTIAL (CELLAVI JOHN)on 06-20-2025 ANISOCYTOSIS PRESENCE IN BLOOD BY LIGHT MICROSCOPY Moderate Abnormal (none) [facility] Comment on above: Performed By: #### L [id number], [id number] ####Kiln Mechanic: NADIA FRENCH ([id number])[facility] ([facility])[address] [place] [address] BAND NEUTROPHILS TOTAL PER COUNTED LEUKOCYTES BY MANUAL COUNT [address] [facility] Comment on above: Performed By: #### L [id number], [id number] ####Kiln Mechanic: NADIA FRENCH ([id number])[facility] ([facility])[address] [place] [address] [place] BANDS (10*3/UL) IN BLOOD-CELLAVISION 0.1 10*3/uL High <=0.[address] [facility] Comment on above: Performed By: #### L [id number], [id number] ####Kiln Mechanic: NADIA FRENCH ([id number])[facility] ([facility])[address] [place] [address] [place] BASOPHILS (10*3/UL) IN BLOOD-CELLAVISION 0.1 10*3/uL Normal 0.0-0.[address] [facility] Comment on above: Performed By: #### L [id number], [id number] ####Kil[employer] Mechanic: NADIA FRENCH ([id number])[facility] ([facility])[address] [place] [address] [place] BASOPHILS TOTAL PER COUNTED LEUKOCYTES BY MANUAL COUNT [address] [facility] Comment on above: Performed By: #### L [id number], [id number] ####Kil[employer] Mechanic: NADIA FRENCH ([id number])[facility] ([facility])[address] [place] [address] [place] BASOPHILS/100 LEUKOCYTES IN BLOOD-CELLAVISION 1 % Normal 0-[address] [facility] Comment on above: Performed By: #### L [id number], [id number] ####Kiln Mechanic: NADIA FRENCH ([id number])[facility] ([facility])[address] [place] [address] [place] BLASTS TOTAL PER COUNTED LEUKOCYTES BY MANUAL COUNT Normal [facility] [facility] Comment on above: Performed By: #### L [id number], [id number] ####Kiln Mechanic: NADIA FRENCH ([id number])[facility])[address] [place] [address] [place] JUAN FRANCISCO CELLS PRESENCE IN BLOOD BY LIGHT MICROSCOPY Slight Abnormal (none) [facility] Comment on above: Performed By: #### L [id number], [id number] ####Kiln Mechanic: NADIA RFENCH ([id number])[facility] ([facility])[address] [place] [address] [place] EOSINOPHILS (10*3/UL) IN BLOOD-CELLAVISION 0.1 10*3/uL Normal 0.0-0.[address] [facility] Comment on above: Performed By: #### L [id number], [id number] ####Kiln Mechanic: NADIA FRENCH ([id number])[facility] ([facility])[address] [place] [address] [place] EOSINOPHILS TOTAL PER COUNTED LEUKOCYTES BY MANUAL COUNT 1 Normal 0-[address] [facility] Comment on above: Performed By: #### L [id number], [id number] ####Kiln Mechanic: NADIA FRENCH ([id number])[facility])[address] [place] [address] [place] EOSINOPHILS/100 LEUKOCYTES IN BLOOD-CELLAVISION 1 % Normal 0-[address] [facility] Comment on above: Performed By: #### L [id number], [id number] ####Kiln Mechanic: NADIA FRENCH ([id number])[facility] ([facility])[address] [place] [address] [place] HYPOCHROMIA (PRESENCE) IN BLOOD BY LIGHT MICROSCOPY Slight Abnormal (none) [facility] Comment on above: Performed By: #### L [id number], [id number] ####Kiln Mechanic: NADIA FRENCH ([id number])[facility] ([facility])[address] [place] [address] [place] LYMPHOCYTES (10*3/UL) IN BLOOD-CELLAVISION 1.5 10*3/uL Normal 1.0-4.[address] [facility] Comment on above: Performed By: #### L [id number], [id number] ####Kiln Mechanic: NADIA FRENCH ([id number])[facility])[address] [place] [address] LYMPHOCYTES TOTAL PER COUNTED LEUKOCYTES BY MANUAL COUNT [address] [facility] Comment on above: Performed By: #### L [id number], [id number] ####Kiln Mechanic: NADIA FRENCH ([id number])[facility])[address] [place] [address] [place] LYMPHOCYTES/100 LEUKOCYTES IN BLOOD-CELLAVISION 17 % Normal 15-[address] [facility] Comment on above: Performed By: #### L [id number], [id number] ####Kiln Mechanic: NADIA FRENCH ([id number])[facility])[address] [place] [address] MACROCYTES (PRESENCE) IN BLOOD BY LIGHT MICROSCOPY Slight Abnormal (none) [facility] Comment on above: Performed By: #### L [id number], [id number] ####Kiln Mechanic: NADIA FRENCH ([id number])[facility])[address] [place] [address] METAMYELOCYTES TOTAL PER COUNTED LEUKOCYTES BY MANUAL COUNT Normal [facility] Comment on above: Performed By: #### L [id number], [id number] ####Kiln Mechanic: NADIA FRENCH ([id number])[facility])[address] [place] [address] MICROCYTES (PRESENCE) IN BLOOD BY LIGHT MICROSCOPY Moderate Abnormal (none) [facility] Comment on above: Performed By: #### L [id number], [id number] ####Kiln Mechanic: NADIA FRENCH ([id number])[facility])[address] [place] [address] MONOCYTES (10*3/UL) IN BLOOD-CELLAVISION 0.5 10*3/uL Normal 0.0-0.[address] [facility] Comment on above: Performed By: #### L [id number], [id number] ####Kiln Mechanic: NADIA FRENCH ([id number])[facility] ([facility])[address] [place] [address] [place] MONOCYTES TOTAL PER COUNTED LEUKOCYTES BY MANUAL COUNT [address] [facility] Comment on above: Performed By: #### L [id number], [id number] ####Kiln Mechanic: NADIA FRENCH ([id number])[facility] ([facility])[address] [place] [address] [place] MONOCYTES/100 LEUKOCYTES IN BLOOD-JAMEEL 6 % Normal 5-[address] [facility] Comment on above: Performed By: #### L [id number], [id number] ####Kiln Mechanic: NADIA FRENCH ([id number])[facility] ([facility])[address] [place] [address] [place] MYELOCYTES COUNTED BY MANUAL COUNT Normal [facility] Comment on above: Performed By: #### L [id number], [id number] ####Kiln Mechanic: NADIA FRENCH ([id number])[facility] ([facility])[address] [place] [address] [place] NEUTROPHILS BAND FORM/100 LEUKOCYTES IN BLOOD-CELLAVISI 1 % High <=[address] [facility] Comment on above: Performed By: #### L [id number], [id number] ####Kiln Mechanic: NADIA FRENCH ([id number])[facility] ([facility])[address] [place] [address] [place] NEUTROPHILS TOTAL PER COUNTED LEUKOCYTES BY MANUAL COUNT [address] [facility] Comment on above: Performed By: #### L [id number], [id number] ####Kiln Mechanic: NADIA FRENCH ([id number])[facility] ([facility])[address] [place] [address] [place] OVALOCYTES PRESENCE IN BLOOD BY LIGHT MICROSCOPY Slight Abnormal (none) [facility] Comment on above: Performed By: #### L [id number], [id number] ####Kiln Mechanic: NADIA FRENCH ([id number])[facility] ([facility])[address] [place] [address] [place] POIKILOCYTOSIS (PRESENCE) IN BLOOD BY LIGHT MICROSCOPY Slight Abnormal (none) [facility] Comment on above: Performed By: #### L [id number], [id number] ####Kiln Mechanic: NADIA FRENCH ([id number])[facility] ([facility])[address] [place] [address] [place] PROMYELOCYTES TOTAL PER COUNTED LEUKOCYTES BY MANUAL COUNT Normal [facility] Comment on above: Performed By: #### L [id number], [id number] ####Kiln Mechanic: NADIA FRENCH ([id number])[facility] ([facility])[address] [place] [address] RBC MORPHOLOGY IN BLOOD abnormal Normal [facility] Comment on above: Performed By: #### L [id number], [id number] ####Kiln Mechanic: NADIA FRENCH ([id number])[facility] ([facility])[address] [place] [address] SCHISTOCYTES (PRESENCE) IN BLOOD BY LIGHT MICROSCOPY Slight Abnormal (none) [facility] Comment on above: Performed By: #### L [id number], [id number] ####Kiln Mechanic: NADIA FRENCH ([id number])[facility] ([facility])[address] [place] [address] [place] SEGMENTED NEUTROPHILS (10*3/UL) IN BLOOD-CELLAVISION 6.7 10*3/uL Normal 1.8-7.5 [facility] Comment on above: Performed By: #### L [id number], [id number] ####Kiln Mechanic: NADIA FRENCH ([id number])[facility])[address] [place] [address] [place] SEGMENTED NEUTROPHILS/100 LEUKOCYTES-CE 73 % Normal 38-82 [facility] Comment on above: Performed By: #### L [id number], [id number] ####Kiln Mechanic: NADIA FRENCH ([id number])[facility] ([facility])[address] [place] [address] [place] UNCLASSIFIED CELLS TOTAL PER COUNTED LEUKOCYTES BY MANUAL COUNT Normal [facility] Comment on above: Performed By: #### L [id number], [id number] ####Kiln Mechanic: NADIA FRENCH ([id number])[address] VARIANT LYMPHOCYTES TOTAL PER COUNTED LEUKOCYTES BY MANUAL COUNT Normal [facility] Comment on above: Performed By: #### L [id number], [id number] ####Kiln Mechanic: NADIA FRENCH ([id number])[address] No Panel Informationon 06-20 CREATININE, URINE 38.4 mg/dL Low 47.0 - 110.0 mg/dL [facility] Interpretation and review of laboratory results Abnormal [facility] SODIUM, URINE, FRACTIONAL EXCRETION 2 [facility] SODIUM, URINE, TUBULAR REABSORPTION 1 [facility] B[facility] Manual 1 [facility] Basophils Manual 1 [facility] Eosinophils Manual 1 0 - 1 [facility] Interpretation and review of laboratory results Abnormal [facility] Lymphocytes Manual 17 [facility] Monocytes Manual 6 [facility] Neutrophils Manual 74 [facility] Nursing Noteon 06-20-2025 Nursing Note Report called to RN on H5. RN has no further questions at this time Normal [facility] Nursing Note Normal [facility] Progress Noteon 06-20-2025 Progress Note Normal [facility] Progress Note Normal [facility] Progress Note Normal [facility] Progress Note Normal [facility] Progress Note Normal [facility] SODIUM, URINE, RANDOMon 05-29 CREATININE, URINE 38.4 mg/dL Low 47.0-110.[address] [facility] Comment on above: Performed By: #### L [id number] ####Kiln Mechanic: NADIA FRENCH ([id number])[address] Sodium (U) [Moles/Vol] 91 mmol/L Normal [facility] Comment on above: Performed By: #### L [id number] ####Kiln Mechanic: NADIA [id number])[address] SODIUM, URINE, FRACTIONAL EXCRETION 2.[address] [facility] Comment on above: Performed By: #### L [id number] ####Kiln Mechanic: NADIA FRENCH ([id number])[facility] ([facility])[address] [place] [address] SODIUM, URINE, TUBULAR REABSORPTION 1.[address] [facility] Comment on above: Performed By: #### L [id number] ####Kiln Mechanic: NADIA FRENCH ([id number])[facility] ([facility])[address] [place] [address] XR CHEST 1 VIEWon 06-20-2025 XR CHEST 1 VIEW Normal [facility] XR Chest Single viewon 06-20 [facility] Radiology Study observation (narrative) [facility] XR Chest Single viewOrdered By: Mike Mcgrath on 06-20-2025 [facility] Work Phone: BLOOD TYPE AND SCREEN GELon 06-19-2025 ABO GROUPING A Normal [facility] Comment on above: Performed By: #### L [id number] ####Kiln Mechanic: NADIA FRENCH ([id number])[facility] ([facility])[address] [place] [address] RH TYPE IN BLOOD Positive Normal [facility] Comment on above: Performed By: #### L [id number] ####Kiln Mechanic: NADIA FRENCH ([id number])[facility] ([facility])[address] [place] [address] Blood type and Crossmatch pa ciaran (Bld)on 06-19-2025 ABO group Nom (Bld) A [facility] Blood group antibody screen GEL Ql Negative [facility] D Ag Ql (RBC) Positive [facility] CBC W Auto Differential pane l (Bld)Ordered By: Darin Maki on 06-19-2025 Basophils (Bld) [#/Vol] 0.1 10*3/uL 0.0 - 0.2 10*3/uL [facility] Basophils/100 WBC (Bld) 0.6 % 0.0 - 2.0 % [facility] Eosinophils (Bld) [#/Vol] 0.2 10*3/uL 0.0 - 0.5 10*3/uL [facility] Eosinophils/100 WBC (Bld) 2.4 % 0.0 - 6.0 % [facility] Erythrocyte distribution width (RBC) [Ratio] 24.5 % High 11.5 - 15.0 % [facility] Hematocrit (Bld) [Volume fraction] 23.7 % Low 35.0 - 47.0 % [facility] Hemoglobin (Bld) [Mass/Vol] 6.7 g/dL Critically low 11.7 - 16.0 g/dL [facility] Immature granulocytes (Bld) [#/Vol] 0 10*3/uL NINF - 0.1 10*3/uL [facility] Immature granulocytes/100 WBC (Bld) 0.3 % 0.0 - 2.0 % [facility] Interpretation and review of laboratory results Abnormal [facility] Lymphocytes (Bld) [#/Vol] 1.2 10*3/uL 1.0 - 4.3 10*3/uL [facility] Lymphocytes/100 WBC (Bld) 12.4 % Low 15.0 - 45.0 % [facility] MCH (RBC) [Entitic mass] 23.3 pg Low 26.0 - 34.0 pg [facility] MCHC (RBC) [Mass/Vol] 28.3 % Low 30.5 - 36.0 % [facility] MCV (RBC) [Entitic vol] 82.3 fL 77.0 - 99.0 fL [facility] Monocytes (Bld) [#/Vol] 0.7 10*3/uL 0.0 - 0.9 10*3/uL [facility] Monocytes/100 WBC (Bld) 7.4 % 5.0 - 13.0 % [facility] Neutrophils (Bld) [#/Vol] 7.5 10*3/uL 1.8 - 7.5 10*3/uL [facility] Neutrophils/100 WBC (Bld) 76.9 % 38.0 - 82.0 % [facility] Nucleated RBC/100 WBC (Bld) [Ratio] 0 % [facility] Platelet mean volume (Bld) [Entitic vol] 9.1 fL 9.0 - 12.7 fL [facility] [employer] Platelets (Bld) [#/Vol] 353 10*3/uL 140 - 440 10*3/uL [facility] RBC (Bld) [#/Vol] 2.88 10*6/uL Low 3.80 - 5.20 10*6/uL [facility] WBC (Bld) [#/Vol] 9.7 10*3/uL 3.6 - 10.7 10*3/uL [facility] CBC WITH AUTO DIFFERENTIALon 06-19-2025 Basophils (Bld) [#/Vol] 0.1 10*3/uL Normal 0.0-0.[address] [facility] Comment on above: Performed By: #### L [id number] ####Kiln Mechanic: NADIA FRENCH ([id number])[facility])[address] [place] [address] Basophils/100 WBC (Bld) 0.6 % Normal 0.0-2.0 [facility] Comment on above: Performed By: #### L [id number] ####Kiln Mechanic: NADIA FRENCH ([id number])[facility])[address] [place] [address] Eosinophils (Bld) [#/Vol] 0.2 10*3/uL Normal 0.0-0.[address] [facility] Comment on above: Performed By: #### L [id number] ####Kiln Mechanic: NADIA FRENCH ([id number])[facility])[address] [place] [address] Eosinophils/100 WBC (Bld) 2.4 % Normal 0.0-6.[address] [facility] Comment on above: Performed By: #### L [id number] ####Kiln Mechanic: NADIA FRENCH ([id number])[facility])[address] [place] [address] Erythrocyte distribution width (RBC) [Ratio] 24.5 % High 11.5-15.[address] [facility] Comment on above: Performed By: #### L [id number] ####Kiln Mechanic: NADIA FRENCH ([id number])[facility])[address] [place] [address] Hematocrit (Bld) [Volume fraction] 23.7 % Low 35.0-47.0 [facility] Comment on above: Performed By: #### L [id number] ####Kiln Mechanic: NADIA FRENCH ([id number])[address] Hemoglobin (Bld) [Mass/Vol] 6.7 g/dL Critically low 11.7-16.0 [facility] Comment on above: Performed By: #### L [id number] ####Kiln Mechanic: NADIA FRENCH ([id number])[facility])[address] [place] [address] IMMATURE GRANS % 0.3 % Normal 0.0-2.0 [facility] Comment on above: Performed By: #### L [id number] ####Kiln Mechanic: NADIA FRENCH ([id number])[address] IMMATURE GRANS ABSOLUTE 0.0 10*3/uL Normal <0.1 [facility] Comment on above: Performed By: #### L [id number] ####Kiln Mechanic: NADIA FRENCH ([id number])[address] Lymphocytes (Bld) [#/Vol] 1.2 10*3/uL Normal 1.0-4.3 [facility] Comment on above: Performed By: #### L [id number] ####Kiln Mechanic: NADIA FRENCH ([id number])[address] Lymphocytes/100 WBC (Bld) 12.4 % Low 15.0-45.0 [facility] Comment on above: Performed By: #### L [id number] ####Kiln Mechanic: NADIA FRENCH ([id number])[address] MCH (RBC) [Entitic mass] 23.3 pg Low 26.0-34.0 [facility] Comment on above: Performed By: #### L [id number] ####Kiln Mechanic: NADIA FRENCH ([id number])[facility] ([facility])[address] [place] [address] MCHC 28.3 % Low 30.5-36.[address] [facility] Comment on above: Performed By: #### L [id number] ####Kiln Mechanic: NADIA FRENCH ([id number])[facility] ([facility])[address] [place] [address] MCV (RBC) [Entitic vol] 82.3 fL Normal 77.0-99.0 [facility] Comment on above: Performed By: #### L [id number] ####Kiln Mechanic: NADIA FRENCH ([id number])[facility] ([facility])[address] [place] [address] Monocytes (Bld) [#/Vol] 0.7 10*3/uL Normal 0.0-0.[address] [facility] Comment on above: Performed By: #### L [id number] ####Kiln Mechanic: NADIA FRENCH ([id number])[facility] ([facility])[address] [place] [address] Monocytes/100 WBC (Bld) 7.4 % Normal 5.0-13.0 [facility] Comment on above: Performed By: #### L [id number] ####Kiln Mechanic: NADIA FRENCH ([id number])[facility] ([facility])[address] [place] [address] NEUTROPHILS ABSOLUTE 7.5 10*3/uL Normal 1.8-7.5 [facility] Comment on above: Performed By: #### L [id number] ####Kiln Mechanic: NADIA FRENCH ([id number])[facility] ([facility])[address] [place] [address] Neutrophils/100 WBC (Bld) 76.9 % Normal 38.0-82.[address] [facility] Comment on above: Performed By: #### L [id number] ####Kiln Mechanic: NADIA FRENCH ([id number])[facility] ([facility])[address] [place] [address] NRBC 0.0 /100 WBCs Normal 0.0-2.0 [facility] Comment on above: Performed By: #### L [id number] ####Kiln Mechanic: NADIA FRENCH ([id number])[facility])[address] [place] [address] Platelet mean volume (Bld) [Entitic vol] 9.1 fL Normal 9.0-12.7 [facility] Comment on above: Performed By: #### L [id number] ####Kiln Mechanic: NADIA FRENCH ([id number])[facility] ([facility])[address] [place] [address] Platelets (Bld) [#/Vol] 353 10*3/uL Normal 140-440 [facility] Comment on above: Performed By: #### L [id number] ####Kiln Mechanic: NADIA FRENCH ([id number])[facility] ([facility])[address] [place] [address] RBC (Bld) [#/Vol] 2.88 10*6/uL Low 3.80-5.20 [facility] Comment on above: Performed By: #### L [id number] ####Kiln Mechanic: NADIA FRENCH ([id number])[facility] ([facility])[address] [place] [address] WBC (Bld) [#/Vol] 9.7 10*3/uL Normal 3.6-10.7 [facility] Comment on above: Performed By: #### L [id number] ####Kiln Mechanic: NADIA FRENCH ([id number])[facility] ([facility])[address] [place] [address] COMPREHENSIVE METABOLIC PANE David 06-19-2025 Albumin [Mass/Vol] 1.6 g/dL Low 3.4-4.8 [facility] Comment on above: Performed By: #### L [id number] ####Kiln Mechanic: NADIA FRENCH ([id number])[facility])[address] [place] [address] [place] ALP [Catalytic activity/Vol] 65 U/L Normal 40-[address] [facility] Comment on above: Performed By: #### L [id number] ####Kiln Mechanic: NADIA FRENCH ([id number])[facility] ([facility])[address] [place] [address] ALT [Catalytic activity/Vol] 6 U/L Normal <[address] [facility] Comment on above: Performed By: #### L [id number] ####Kiln Mechanic: NADIA FRENCH ([id number])[facility] ([facility])[address] [place] [address] Anion gap [Moles/Vol] 7 mmol/L Normal 3-13 [facility] Comment on above: Performed By: #### L [id number] ####Kiln Mechanic: NADIA FRENCH ([id number])[facility] ([facility])[address] [place] [address] AST [Catalytic activity/Vol] 22 U/L Normal <[address] [facility] Comment on above: Performed By: #### L [id number] ####Kiln Mechanic: NADIA FRENCH ([id number])[facility] ([facility])[address] [place] [address] Bilirubin [Mass/Vol] 0.8 mg/dL Normal <1.2 [facility] Comment on above: Performed By: #### L [id number] ####Kiln Mechanic: NADIA FRENCH ([id number])[facility] ([facility])[address] [place] [address] Calcium [Mass/Vol] 7.9 mg/dL Low 8.8-10.[address] [facility] Comment on above: Performed By: #### L [id number] ####Kiln Mechanic: NADIA FRENCH ([id number])[facility] ([facility])[address] [place] [address] [place] Chloride [Moles/Vol] 107 mmol/L Normal 98-107 [facility] Comment on above: Performed By: #### L [id number] ####Kiln Mechanic: NADIA FRENCH ([id number])[facility] ([facility])[address] [place] [address] CO2 [Moles/Vol] 22 mmol/L Low 23-31 [facility] Comment on above: Performed By: #### L [id number] ####Kiln Mechanic: NADIA FRENCH ([id number])[facility])[address] [place] [address] Creatinine [Mass/Vol] 1.16 mg/dL High 0.57-1.11 [facility] Comment on above: Performed By: #### L [id number] ####Kiln Mechanic: NADIA FRENCH ([id number])[facility] ([facility])[address] [place] [address] GLOMERULAR FILTRATION RATE ML/MIN/1.73 SQ M.PREDICTED 53.7 mL/min/1.73m*2 Low >60.0 [facility] Comment on above: Result Comment: Calc ulation based on the Chronic Kidney Disease Epidemiology Collaboration (CKD-EPI) equation refit without adjustment for race Performed By: #### L [id number] ####Kiln Mechanic: NADIA FRENCH ([id number])[facility] ([facility])[address] [place] [address] Glucose [Mass/Vol] 86 mg/dL Normal 82-115 [facility] Comment on above: Performed By: #### L [id number] ####Kiln Mechanic: NADIA FRENCH ([id number])[facility])[address] [place] [address] Potassium [Moles/Vol] 4.2 mmol/L Normal 3.5-5.1 [facility] Comment on above: Result Comment: [facility] potassium values may be up to 0.5 mmol/L lower than serum values. Performed By: #### L [id number] ####Kiln Mechanic: NADIA FRENCH ([id number])[facility])[address] [place] [address] Protein [Mass/Vol] 5.6 g/dL Low 6.4-8.3 [facility] Comment on above: Performed By: #### L [id number] ####Kiln Mechanic: NADIA FRENCH ([id number])[facility])[address] [place] [address] Sodium [Moles/Vol] 136 mmol/L Normal 136-145 [facility] Comment on above: Performed By: #### L [id number] ####Kiln Mechanic: NADIA FRENCH ([id number])[facility])[address] [place] [address] Urea nitrogen [Mass/Vol] 33 mg/dL High 9-23 [facility] Comment on above: Performed By: #### L [id number] ####Kiln Mechanic: NADIA FRENCH ([id number])[facility])[address] [place] [address] Comprehensive metabolic 1998 panelon 06-19-2025 Albumin [Mass/Vol] 1.6 g/dL Low 3.4 - 4.8 g/dL [facility] ALP [Catalytic activity/Vol] 65 U/L 40 - 150 U/L [facility] ALT [Catalytic activity/Vol] 6 U/L NINF - 30 U/L [facility] Anion gap [Moles/Vol] 7 mmol/L 3 - 13 mmol/L [facility] AST [Catalytic activity/Vol] 22 U[facility]/L [facility] Bilirubin [Mass/Vol] 0.8 mg/dL NINF - 1.2 mg/dL [facility] Calcium [Mass/Vol] 7.9 mg/dL Low 8.8 - 10. 0 mg/dL [facility] Chloride [Moles/Vol] 107 mmol/L 98 - 10 7 mmol/L [facility] CO2 [Moles/Vol] 22 mmol/L Low 23 - 31 mmol/L [facility] Creatinine [Mass/Vol] 1.16 mg/dL High 0.57 - 1.11 mg/dL [facility] GFR/1.73 sq M.predicted (S/P/Bld) [Vol rate/Area] 53.7 mL/min Low - PINF [facility] Glucose [Mass/Vol] 86 mg/dL 82 - 115 mg/dL [facility] Interpretation and review of laboratory results Abnormal [facility] Potassium [Moles/Vol] 4.2 mmol/L 3.5 - 5.1 mmol/L [facility] Protein [Mass/Vol] 5.6 g/dL Low 6.4 - 8.3 g/dL [facility] Sodium [Moles/Vol] 136 mmol/L 136 - 145 mmol/L [facility] Urea nitrogen [Mass/Vol] 33 mg/dL High 9 - 23 mg/dL [facility] HEMOGLOBIN AND HEMATOCRIT, B LOODon 06-19-2025 Hematocrit (Bld) [Volume fraction] 31.5 % Low 35.0-47.0 [facility] Comment on above: Order Comment: Recom mend 1 hour post transfusion Performed By: #### L [id number] ####Kiln Mechanic: NADIA FRENCH ([id number])[address] Hemoglobin (Bld) [Mass/Vol] 9.0 g/dL Low 11.7-16.0 [facility] Comment on above: Order Comment: Recom mend 1 hour post transfusion Performed By: #### L [id number] ####Kiln Mechanic: NADIA FRENCH ([id number])[address] Hemoglobin (Bld) [Mass/Vol]O rdered By: Catrachita Stone on 06-19-2025 Hematocrit (Bld) [Volume fraction] 31.5 % Low 35.0 - 47.0 % [facility] Interpretation and review of laboratory results Abnormal [facility] Laboratory - Drug toxicology on 06-19-2025 Vancomycin trough [Mass/Vol] 29.2 ug/mL [facility] Laboratory - Hematology and Cell countsOrdered By: Catrachita Stone on 06-19-2025 Hemoglobin (Bld) [Mass/Vol] 9 g/dL Low 11.7 - 16.0 g/dL [facility] No Panel Informationon 06-19 Blood Expiration Date [id number] [facility] Crossmatch interpretation COMP [facility] Dispense Status Transfused [facility] [employer] Product Blood Type 6200 [facility] PRODUCT CODE [id number] [facility] Unit ABO A [facility] Unit Number [id number] [facility] RH Positive [facility] Unit Volume 300 mL [facility] Progress Noteon 06-19-2025 Progress Note Normal [facility] Progress Note Vancomycin therapy h as been discontinued by Dr. Catherine Walker on 06/19/25. Thank you for the consult. Pharmacy signing off for vancomycin dosing. Khushi Lara [facility], Date: 06/19/25 Time: 10:55 AM Normal [facility] Progress Note Normal [facility] Progress Note Normal [facility] Progress Note Normal [facility] Progress Note Normal [facility] VANCOMYCIN, AUC TIMED DOSING on 06-19-2025 VANCOMYCIN, AUC 29.2 ug/mL Normal [facility] Comment on above: Result Comment: ORDE R COMMENTS:Please draw random level at least >2 hours after the end of the last vancomycin infusion, or 30-minutes before next infusion.Toxicity is seen at concentrations >80-100 ug/mLTherapeutic (Peak) range: 20-40Therapeutic (Trough) range: 5-10 Performed By: #### L [id number] ####Kiln Mechanic: NADIA FRENCH ([id number])[address] Vancomycin trough [Mass/Vol] on 06-19-2025 [facility] XR CHEST 1 VIEWon 06-19-2025 XR CHEST 1 VIEW Normal [facility] XR Chest Single viewon 06-19 [facility] Radiology Study observation (narrative) [facility] XR Chest Single viewOrdered By: Sofi Shea on 06-19-2025 [facility] Work Phone: [phone] 06-18-2025 [id number] Receiving Team Member following case for Discharge Needs. [facility] [id number] 06-18-2025 [id number] Normal [facility] [id number] [facility] CBC W Auto Differential pane l (Bld)on 06-18-2025 Basophils (Bld) [#/Vol] 0.1 10*3/uL 0.0 - 0.2 10*3/uL [facility] Basophils/100 WBC (Bld) 0.6 % 0.0 - 2.0 % [facility] Eosinophils (Bld) [#/Vol] 0.1 10*3/uL 0.0 - 0.5 10*3/uL [facility] Eosinophils/100 WBC (Bld) 1.4 % 0.0 - 6.0 % [facility] Erythrocyte distribution width (RBC) [Ratio] 25.1 % High 11.5 - 15.0 % [facility] Hematocrit (Bld) [Volume fraction] 25.2 % Low 35.0 - 47.0 % [facility] Hemoglobin (Bld) [Mass/Vol] 7.2 g/dL Low 11.7 - 16.0 g/dL [facility] Immature granulocytes (Bld) [#/Vol] 0.1 10*3/uL High NINF - 0.1 10*3/uL [facility] Immature granulocytes/100 WBC (Bld) 0.5 % 0.0 - 2.0 % [facility] Interpretation and review of laboratory results Abnormal [facility] Lymphocytes (Bld) [#/Vol] 1.2 10*3/uL 1.0 - 4.3 10*3/uL [facility] Lymphocytes/100 WBC (Bld) 12.4 % Low 15.0 - 45.0 % [facility] MCH (RBC) [Entitic mass] 23.2 pg Low 26.0 - 34.0 pg [facility] MCHC (RBC) [Mass/Vol] 28.6 % Low 30.5 - 36.0 % [facility] MCV (RBC) [Entitic vol] 81 fL 77.0 - 99.0 fL [facility] Monocytes (Bld) [#/Vol] 0.7 10*3/uL 0.0 - 0.9 10*3/uL [facility] Monocytes/100 WBC (Bld) 7 % 5.0 - 13.0 % [facility] Neutrophils (Bld) [#/Vol] 7.8 10*3/uL High 1.8 - 7.5 10*3/uL [facility] Neutrophils/100 WBC (Bld) 78.1 % 38.0 - 82.0 % [facility] Nucleated RBC/100 WBC (Bld) [Ratio] 0 % [facility] [employer] Platelet mean volume (Bld) [Entitic vol] 9.2 fL 9.0 - 12.7 fL [facility] Platelets (Bld) [#/Vol] 370 10*3/uL 140 - 440 10*3/uL [facility] RBC (Bld) [#/Vol] 3.11 10*6/uL Low 3.80 - 5.20 10*6/uL [facility] WBC (Bld) [#/Vol] 10 10*3/uL 3.6 - 10.7 10*3/uL [facility] CBC WITH AUTO DIFFERENTIALon 06-18-2025 Basophils (Bld) [#/Vol] 0.1 10*3/uL Normal 0.0-0.[address] [facility] Comment on above: Performed By: #### L [id number] ####Kiln Mechanic: NADIA FRENCH ([id number])[facility] ([facility])[address] [place] [address] Basophils/100 WBC (Bld) 0.6 % Normal 0.0-2.0 [facility] Comment on above: Performed By: #### L [id number] ####Kiln Mechanic: NADIA FRENCH ([id number])[facility] ([facility])[address] [place] [address] Eosinophils (Bld) [#/Vol] 0.1 10*3/uL Normal 0.0-0.[address] [facility] Comment on above: Performed By: #### L [id number] ####Kiln Mechanic: NADIA FRENCH ([id number])[facility] ([facility])[address] [place] [address] Eosinophils/100 WBC (Bld) 1.4 % Normal 0.0-6.[address] [facility] Comment on above: Performed By: #### L [id number] ####Kiln Mechanic: NADIA FRENCH ([id number])[facility] ([facility])[address] [place] [address] Erythrocyte distribution width (RBC) [Ratio] 25.1 % High 11.5-15.[address] [facility] Comment on above: Performed By: #### L [id number] ####Kiln Mechanic: NADIA [id number])[facility] [address] Hematocrit (Bld) [Volume fraction] 25.2 % Low 35.0-47.[address] [facility] Comment on above: Performed By: #### L [id number] ####Kiln Mechanic: NADIA FRENCH ([id number])[facility])[address] [place] [address] Hemoglobin (Bld) [Mass/Vol] 7.2 g/dL Low 11.7-16.[address] [facility] Comment on above: Performed By: #### L [id number] ####Kiln Mechanic: NADIA FRENCH ([id number])[facility])[address] [place] [address] IMMATURE GRANS % 0.5 % Normal 0.0-2.[address] [facility] Comment on above: Performed By: #### L [id number] ####Kiln Mechanic: NADIA FRENCH ([id number])[facility])[address] [place] [address] IMMATURE GRANS ABSOLUTE 0.1 10*3/uL High <0.[address] [facility] Comment on above: Performed By: #### L [id number] ####Kiln Mechanic: NADIA FRENCH ([id number])[facility])[address] [place] [address] Lymphocytes (Bld) [#/Vol] 1.2 10*3/uL Normal 1.0-4.[address] [facility] Comment on above: Performed By: #### L [id number] ####Kiln Mechanic: NADIA FRENCH ([id number])[facility])[address] [place] [address] Lymphocytes/100 WBC (Bld) 12.4 % Low 15.0-45.[address] [facility] Comment on above: Performed By: #### L [id number] ####Kiln Mechanic: NADIA FRENCH ([id number])[facility])[address] [place] [address] MCH (RBC) [Entitic mass] 23.2 pg Low 26.0-34.[address] [facility] Comment on above: Performed By: #### L [id number] ####Kiln Mechanic: NADIA FRENCH ([id number])[facility])[address] [place] [address] MCHC 28.6 % Low 30.5-36.[address] [facility] Comment on above: Performed By: #### L [id number] ####Kiln Mechanic: NADIA FRENCH ([id number])[facility])[address] [place] [address] MCV (RBC) [Entitic vol] 81.0 fL Normal 77.0-99.0 [facility] Comment on above: Performed By: #### L [id number] ####Kiln Mechanic: NADIA FRENCH ([id number])[facility])[address] [place] [address] Monocytes (Bld) [#/Vol] 0.7 10*3/uL Normal 0.0-0.[address] [facility] Comment on above: Performed By: #### L [id number] ####Kiln Mechanic: NADIA FRENCH ([id number])[facility])[address] [place] [address] Monocytes/100 WBC (Bld) 7.0 % Normal 5.0-13.0 [facility] Comment on above: Performed By: #### L [id number] ####Kiln Mechanic: NADIA FRENCH ([id number])[facility])[address] [place] [address] NEUTROPHILS ABSOLUTE 7.8 10*3/uL High 1.8-7.5 [facility] Comment on above: Performed By: #### L [id number] ####Kiln Mechanic: NADIA FRENCH ([id number])[facility])[address] [place] [address] Neutrophils/100 WBC (Bld) 78.1 % Normal 38.0-82.[address] [facility] Comment on above: Performed By: #### L [id number] ####Kiln Mechanic: NADIA FRENCH ([id number])[facility] ([facility])[address] [place] [address] NRBC 0.0 /100 WBCs Normal 0.0-2.[address] [facility] Comment on above: Performed By: #### L [id number] ####Kiln Mechanic: NADIA FRENCH ([id number])[facility] ([facility])[address] [place] [address] Platelet mean volume (Bld) [Entitic vol] 9.2 fL Normal 9.0-12.7 [facility] Comment on above: Performed By: #### L [id number] ####Kiln Mechanic: NADIA FRENCH ([id number])[facility] ([facility])[address] [place] [address] Platelets (Bld) [#/Vol] 370 10*3/uL Normal 140-[address] [facility] Comment on above: Performed By: #### L [id number] ####Kiln Mechanic: NADIA FRENCH ([id number])[facility] ([facility])[address] [place] [address] RBC (Bld) [#/Vol] 3.11 10*6/uL Low 3.80-5.[address] [facility] Comment on above: Performed By: #### L [id number] ####Kiln Mechanic: NADIA FRENCH ([id number])[facility] ([facility])[address] [place] [address] WBC (Bld) [#/Vol] 10.0 10*3/uL Normal 3.6-10.[address] [facility] Comment on above: Performed By: #### L [id number] ####Kiln Mechanic: NADIA FRENCH ([id number])[facility])[address] [place] [address] COMPREHENSIVE METABOLIC PANE David 06-18-2025 Albumin [Mass/Vol] 1.7 g/dL Low 3.4-4.[address] [facility] Comment on above: Performed By: #### L [id number] ####Kiln Mechanic: NADIA FRENCH ([id number])[facility] [place] [address] ALP [Catalytic activity/Vol] 73 U/L Normal 40-[address] [facility] Comment on above: Performed By: #### L [id number] ####Kiln Mechanic: NADIA FRENCH ([id number])[facility] ([facility])[address] [place] [address] ALT [Catalytic activity/Vol] 9 U/L Normal <[address] [facility] Comment on above: Performed By: #### L [id number] ####Kiln Mechanic: NADIA FRENCH ([id number])[facility] ([facility])[address] [place] [address] Anion gap [Moles/Vol] 7 mmol/L Normal 3-13 [facility] Comment on above: Performed By: #### L [id number] ####Kiln Mechanic: NADIA FRENCH ([id number])[facility] ([facility])[address] [place] [address] AST [Catalytic activity/Vol] 18 U/L Normal <[address] [facility] Comment on above: Performed By: #### L [id number] ####Kiln Mechanic: NADIA FRENCH ([id number])[facility] ([facility])[address] [place] [address] Bilirubin [Mass/Vol] 0.7 mg/dL Normal <1.2 [facility] Comment on above: Performed By: #### L [id number] ####Kiln Mechanic: NADIA FRENCH ([id number])[facility] ([facility])[address] [place] [address] Calcium [Mass/Vol] 8.1 mg/dL Low 8.8-10.[address] [facility] Comment on above: Performed By: #### L [id number] ####Kiln Mechanic: NADIA FRENCH ([id number])[facility])[address] [place] [address] Chloride [Moles/Vol] 107 mmol/L Normal 98-107 [facility] Comment on above: Performed By: #### L [id number] ####Kiln Mechanic: NADIA FRENCH ([id number])[facility] ([facility])[address] [place] [address] CO2 [Moles/Vol] 23 mmol/L Normal 23-31 [facility] Comment on above: Performed By: #### L [id number] ####Kiln Mechanic: NADIA FRENCH ([id number])[facility])[address] [place] [address] Creatinine [Mass/Vol] 1.06 mg/dL Normal 0.57-1.11 [facility] Comment on above: Performed By: #### L [id number] ####Kiln Mechanic: NADIA FRENCH ([id number])[facility])[address] [place] [address] GLOMERULAR FILTRATION RATE ML/MIN/1.73 SQ M.PREDICTED 59.9 mL/min/1.73m*2 Low >60.0 [facility] Comment on above: Result Comment: Calc ulation based on the Chronic Kidney Disease Epidemiology Collaboration (CKD-EPI) equation refit without adjustment for race Performed By: #### L [id number] ####Kiln Mechanic: NADIA FRENCH ([id number])[facility])[address] [place] [address] Glucose [Mass/Vol] 90 mg/dL Normal 82-115 [facility] Comment on above: Performed By: #### L [id number] ####Kiln Mechanic: NADIA FRENCH ([id number])[facility])[address] [place] [address] Potassium [Moles/Vol] 4.2 mmol/L Normal 3.5-5.1 [facility] Comment on above: Performed By: #### L [id number] ####Kiln Mechanic: NADIA FRENCH ([id number])[facility])[address] [place] [address] Protein [Mass/Vol] 6.0 g/dL Low 6.4-8.3 [facility] Comment on above: Performed By: #### L [id number] ####Kiln Mechanic: NADIA FRENCH ([id number])[facility] ([facility])[address] [place] [address] Sodium [Moles/Vol] 137 mmol/L Normal 136-145 [facility] Comment on above: Performed By: #### L [id number] ####Kiln Mechanic: NADIA FRENCH ([id number])[facility] [place] [address] Urea nitrogen [Mass/Vol] 32 mg/dL High 9-23 [facility] Comment on above: Performed By: #### L [id number] ####Kiln Mechanic: NADIA FRENCH ([id number])[facility] [place] [address] Comprehensive metabolic 1998 panelon 06-18-2025 Albumin [Mass/Vol] 1.7 g/dL Low 3.4 - 4.8 g/dL [facility] ALP [Catalytic activity/Vol] 73 U/L 40 - 150 U/L [facility] ALT [Catalytic activity/Vol] 9 U/L NINF - 30 U/L [facility] Anion gap [Moles/Vol] 7 mmol/L 3 - 13 mmol/L [facility] AST [Catalytic activity/Vol] 18 U[facility]/L [facility] Bilirubin [Mass/Vol] 0.7 mg/dL NINF - 1.2 mg/dL [facility] Calcium [Mass/Vol] 8.1 mg/dL Low 8.8 - 10. 0 mg/dL [facility] Chloride [Moles/Vol] 107 mmol/L 98 - 10 7 mmol/L [facility] CO2 [Moles/Vol] 23 mmol/L 23 - 31 mmol/L [facility] Creatinine [Mass/Vol] 1.06 mg/dL 0.57 - 1.11 mg/dL [facility] GFR/1.73 sq M.predicted (S/P/Bld) [Vol rate/Area] 59.9 mL/min Low - PINF [facility] Glucose [Mass/Vol] 90 mg/dL 82 - 115 mg/dL [facility] Interpretation and review of laboratory results Abnormal [facility] Potassium [Moles/Vol] 4.2 mmol/L 3.5 - 5.1 mmol/L [facility] Protein [Mass/Vol] 6 g/dL Low 6.4 - 8.3 g/dL [facility] Sodium [Moles/Vol] 137 mmol/L 136 - 145 mmol/L [facility] Urea nitrogen [Mass/Vol] 32 mg/dL High 9 - 23 mg/dL [facility] Consulton 06-18-2025 Consult Normal [facility] ECG 12-LEADon 06-18-2025 ECG 12-LEAD IMPRESSION: Atrial fibrillation LVH with secondary repolarization abnormality Electronically Signed On 06-18-2025 17:38:55 EDT by Ned Ponce Normal [facility] ED Nursing Noteon 06-18-2025 ED Nursing Note USACS Laskey Normal [facility] MRSA BY PCRon 06-18-2025 MRSA BY PCR Normal [facility] Comment on above: Performed By: #### L [id number] ####Kiln Mechanic: NADIA FRENCH ([id number])[facility] ([address] MRSA DNA HESHAM+probe Ql (Nose) on 06-18-2025 Interpretation and review of laboratory results Normal [facility] mecA gene Not detected Not Detected [facility] [employer] Staphylococcus aureus Not detected Not Detected [facility] No Panel InformationOrdered By: Ned Ponce on 06-18-2025 P [place] 0 degrees [facility] Work Phone: [place] Interval 0 ms [facility] Work Phone: QRS [place] -15 degrees [facility] Work Phone: QRSD Interval 76 ms [employer] Work Phone: QT Interval 321 ms [employer] Work Phone: QTC Interval 463 ms [employer] Work Phone: T Wave [place] 162 degrees [facility] Work Phone: [facility] Work Phone: No Panel Informationon 06-18 CV EPIPHANY [facility] PNEUMONIA PCR PANELon 2024 PNEUMONIA PCR PANEL Normal [facility] Comment on above: Performed By: #### L [id number] ####Kiln Mechanic: NADIA FRENCH ([id number])[facility] ([facility])[address] [place] [address] Progress Noteon 06-18-2025 Progress Note Normal [facility] Progress [facility] Normal [facility] Progress Note Normal [facility] Progress Note Normal [facility] Progress Note Normal [facility] RESPIRATORY CULTURE AND STAI Non 06-18-2025 RESPIRATORY CULTURE AND STAIN Normal [facility] Comment on above: Performed By: #### L [id number] ####Kiln Mechanic: NADIA FRENCH ([id number])[facility] ([facility])[address] [place] [address] RESPIRATORY PATHOGENS PANEL BY PCRon 06-18-2025 RESPIRATORY PATHOGENS PANEL BY PCR Normal [facility] Comment on above: Performed By: #### L [id number] ####Kiln Mechanic: NADIA FRENCH ([id number])[facility] ([facility])[address] [place] [address] Respiratory pathogens DNA an d RNA panel HESHAM+non-probe (Lower resp)on 06-18-2025 Acinetobacter baumannii complex Not detected Not Detected [facility] Adenovirus Not detected Not Detected [facility] C. pneumoniae DNA HESHAM+non-probe Ql (Lower resp) Not detected Not Detected [facility] Enterobacter cloacae complex Not detected Not Detected [facility] Escherichia coli Not detected Not Detected [facility] FLUAV RNA HESHAM+non-probe Ql (Lower resp) Not detected Not Detected [facility] FLUBV RNA HESHAM+non-probe Ql (Lower resp) Not detected Not Detected [facility] Haemophilus influenzae Not detected Not Detected [facility] Human Metapneumovirus Not detected Not Detected [facility] Human Rhinovirus/Enterovirus Not detected Not Detected [facility] Interpretation and review of laboratory results Normal [facility] Klebsiella (Enterobacter) aerogenes Not detected Not Detected [facility] Klebsiella oxytoca Not detected Not Detected [facility] Klebsiella pneumoniae Not detected Not Detected [facility] L. pneumophila DNA HESHAM+non-probe Ql (Lower resp) Not detected Not Detected [facility] Moraxella catarrhalis Not detected Not Detected [facility] Mycoplasma pneumoniae Not detected Not Detected [facility] Parainfluenza virus Not detected Not Detected [facility] Proteus spp Not detected Not Detected [facility] Pseudomonas aeruginosa Not detected Not Detected [facility] RSV RNA HESHAM+probe Ql (Resp) Not detected Not Detected [facility] S. agalactiae DNA HESHAM+non-probe Ql (Sput) Not detected Not Detected [facility] SARS-CoV-2 (COVID-19) RNA HESHAM+non-probe Ql (Nph) Not detected Not Detected [facility] Serratia marcescens Not detected Not Detected [facility] Staphylococcus aureus Not detected Not Detected [facility] Streptococcus pneumoniae Not detected Not Detected [facility] Streptococcus pyogenes Not detected Not Detected [facility] Respiratory pathogens DNA an d RNA panel HESHAM+non-probe (Nph)on 06-18-2025 Adenovirus Not detected Not Detected [facility] B. pertussis toxin promoter region HESHAM+non-probe Ql (Nph) Not detected Not Detected [facility] Bordetella parapertussis Not detected Not Detected [facility] C. pneumoniae DNA HESHAM+non-probe Ql (Lower resp) Not detected Not Detected [facility] Coronavirus 229E Not detected Not Detected [facility] Coronavirus HKU1 Not detected Not Detected [facility] Coronavirus NL63 Not detected Not Detected [facility] Coronavirus OC43 Not detected Not Detected [facility] FLUAV RNA HESHAM+non-probe Ql (Nph) Not detected Not Detected [facility] FLUBV RNA HESHAM+non-probe Ql (Nph) Not detected Not Detected [facility] Human Metapneumovirus Not detected Not Detected [facility] Human Rhinovirus/Enterovirus Not detected Not Detected [facility] Interpretation and review of laboratory results Normal [facility] Mycoplasma pneumoniae Not detected Not Detected [facility] Parainfluenza 1 Not detected Not Detected [facility] Parainfluenza 2 Not detected Not Detected [facility] Parainfluenza 3 Not detected Not Detected [facility] Parainfluenza 4 Not detected Not Detected [facility] Respiratory Syncytial Virus Not detected Not Detected [facility] SARS-CoV-2 (COVID-19) RNA HESHAM+non-probe Ql (Nph) Not detected Not Detected [facility] US Heart TransthoracicOrdere d By: Donna Giron on 06-18-2025 Ao Root Index 1.64 cm/m2 [facility] Work Phone: Aortic Root 3.2 cm [facility] Work Phone: Aortic Sinus Valsalva 3.2 [facility] Work Phone: Aortic Sinus Valsalva Index 1.64 cm/m2 [facility] [employer] Work Phone: [phone] Aortic valve Mean systole pressure gradient by US.doppler derived full Bernoulli 3 mmHg [facility] [employer] Work Phone: [phone] Aortic valve Orifice area by US 2.8 cm2 [facility] [employer] Work Phone: [phone] Aortic valve Peak systolic flow by US.doppler 0.8 m/s [facility] [employer] Work Phone: [phone] Ascending Aorta 3.6 cm [facility] [employer] Work Phone: [phone] Ascending Aorta Index 1.85 cm/m2 [facility] [employer] Work Phone: [phone] AV Area by Peak Velocity 2 cm2 [facility] [employer] Work Phone: [phone] AV Area by VTI 2.4 cm2 [facility] [employer] Work Phone: [phone] AV Peak Gradient 6 mmHg [facility] [employer] Work Phone: [phone] AV Peak Velocity 1.2 m/s [facility] [employer] Work Phone: [phone] AV Velocity Ratio 0.67 [facility] [employer] Work Phone: [phone] AV VTI 19.5 cm [facility] [employer] Work Phone: [phone] IFEANYI/BSA Peak Velocity 1 cm2/m2 [facility] [employer] Work Phone: [phone] IFEANYI/BSA VTI 1.2 cm2/m2 [facility] [employer] Work Phone: Est. RA Pressure 3 mmHg [facility] [employer] Work Phone: [phone] Fractional Shortening 2D 51 % 28 - 44 % [facility] [employer] Work Phone: Interpretation and review of laboratory results Abnormal [facility] [employer] Work Phone: IVC Diameter 2.1 cm [facility] [employer] Work Phone: [phone] IVSd 1 cm Abnormal 0.6 - 0.9 cm [facility] [employer] Work Phone: LA Diameter 4.3 cm [facility] [employer] Work Phone: LA Size Index 2.21 cm/m2 [facility] [employer] Work Phone: [phone] LA Volume 4C 80 mL Abnormal 22 - 52 mL [facility] [employer] Work Phone: LA Volume Index 4C 41 mL/m2 Abnormal 16 - 34 mL/m2 [facility] [employer] Work Phone: LA/AO Root Ratio 1.34 [facility] [employer] Work Phone: LV E' Lateral Velocity 9 cm/s [facility] Work Phone: LV E' Septal Velocity 5 cm/s [facility] Work Phone: LV EDV A2C 41 mL [facility] [employer] Work Phone: LV EDV A4C 131 mL [facility] [employer] Work Phone: LV EDV BP 71 mL 56 - 104 mL [facility] [employer] Work Phone: LV EDV Index A2C 21 mL/m2 [facility] [employer] Work Phone: LV EDV Index A4C 67 mL/m2 [facility] [employer] Work Phone: [phone] LV EDV Index BP 36 mL/m2 [facility] [employer] Work Phone: LV ESV A2C 42 mL [facility] [employer] Work Phone: [phone] LV ESV A4C 28 mL [facility] [employer] Work Phone: LV ESV BP 34 mL 19 - 49 mL [facility] [employer] Work Phone: LV ESV Index A2C 22 mL/m2 [facility] [employer] Work Phone: LV ESV Index A4C 14 mL/m2 [facility] [employer] Work Phone: [phone] LV ESV Index BP 17 mL/m2 [facility] [employer] Work Phone: [phone] LV Mass 2D 162.1 g Abnormal 67 - 162 g [facility] [employer] Work Phone: LV Mass 2D Index 83.1 g/m2 43 - 95 g/m2 [facility] [employer] Work Phone: LV RWT Ratio 0.26 [facility] [employer] Work Phone: [phone] LVIDd 5.3 cm 3.9 - 5.3 cm [facility] [employer] Work Phone: [phone] LVIDd Index 2.72 cm/m2 [facility] Work Phone: [phone] LVIDs 2.6 cm [facility] Work Phone: [phone] LVIDs Index 1.33 cm/m2 [facility] Work Phone: [phone] LVOT Cardiac Output 4.1 liter/mi nu te [facility] Work Phone: [phone] LVOT Diameter 1.9 cm [facility] Work Phone: [phone] LVOT Mean Gradient 1 mmHg [facility] Work Phone: [phone] LVOT Peak Gradient 3 mmHg [facility] Work Phone: [phone] LVOT Peak Velocity 0.8 m/s [facility] Work Phone: [phone] LVOT Stroke Volume Index 23 mL/m2 [facility] [employer] Work Phone: [phone] LVOT SV 44.8 ml [facility] Work Phone: [phone] LVOT VTI 15.8 cm [facility] Work Phone: [phone] LVOT:AV VTI Index 0.81 [facility] Work Phone: [phone] LVPWd 0.7 cm 0.6 - 0.9 cm [facility] Work Phone: [phone] RA Area 4C 66.2 mL [facility] Work Phone: [phone] RA Area 4C 63.4 mL [facility] Work Phone: [phone] RV Basal Dimension 3 cm [facility] Work Phone: [phone] RV Free Wall Peak S' 15 cm/s [facility] Work Phone: [phone] RV Longitudinal Dimension 4.9 cm [facility] Work Phone: [phone] RV Mid Dimension 1.9 cm [facility] Work Phone: [phone] RVSP 49 mmHg [facility] Work Phone: [phone] Sinotubular Junction 2.9 cm [facility] Work Phone: [phone] TR Max Velocity 3.38 m/s [facility] Work Phone: [phone] TR Peak Gradient 46 mmHg [facility] Work Phone: [facility] Work Phone: US Heart Transthoracicon CV CPACS Vital signsOrdered By: Ned Ponce on 06-18-2025 Heart rate 125 /min bpm [facility] [employer] Phone: [phone] 06-17-2025 [id number] [facility] BLOOD CULTUREon 06-17-2025 Bacteria identified Cx Nom (Bld) Normal [facility] Comment on above: Performed By: #### L [id number] ####Kiln Mechanic: NADIA FRENCH ([id number])[facility] ([facility])[address] [place] [address] BLOOD GAS ARTERIALon 025 AMOUNT OF OXYGEN 60% Normal [facility] Comment on above: Performed By: #### L [id number] ####Kiln Mechanic: NADIA FRENCH ([id number])[facility])[address] [place] [address] Base excess Calc (Bld) [Moles/Vol] 1.8 mmol/L Normal -3.0-3.0 [facility] Comment on above: Performed By: #### L [id number] ####Kiln Mechanic: NADIA FRENCH ([id number])[facility])[address] [place] [address] CO2 [Moles/Vol] 25.7 mmol/L Normal 23.0-27.0 [facility] Comment on above: Performed By: #### L [id number] ####Kiln Mechanic: NADIA FRENCH ([id number])[facility] ([facility])[address] [place] [address] [place] HCO3 (Bld) [Moles/Vol] 24.7 mmol/L Normal 21.0-25.0 [facility] Comment on above: Performed By: #### L [id number] ####Kiln Mechanic: NADIA FRENCH ([id number])[facility])[address] [place] [address] Hemoglobin (Bld) [Mass/Vol] 8.3 g/dL Normal Screen only [facility] Comment on above: Performed By: #### L [id number] ####Kiln Mechanic: NADIA FRENCH ([id number])[facility])[address] [place] [address] OXYGEN SATURATION (%) IN ARTERIAL BLOOD 94.7 % Low 95.0-100.[address] [facility] Comment on above: Performed By: #### L [id number] ####Kiln Mechanic: NADIA FRENCH ([id number])[facility])[address] [place] [address] PCO2 ARTERIAL 31.5 mm Hg Low >35.0-<45. [address] [facility] Comment on above: Performed By: #### L [id number] ####Kiln Mechanic: NADIA FRENCH ([id number])[facility])[address] [place] [address] PH ARTERIAL 7.512 High 7.350-7.[address] [facility] Comment on above: Performed By: #### L [id number] ####Kiln Mechanic: NADIA FRENCH ([id number])[facility])[address] [place] [address] PO2 ARTERIAL 73.7 mm Hg Low 80.0-100.[address] [facility] Comment on above: Performed By: #### L [id number] ####Kiln Mechanic: NADIA FRENCH ([id number])[facility])[address] [place] [address] SOURCE OF OXYGEN Non-Invasive Ventilator Normal [facility] Comment on above: Performed By: #### L [id number] ####Kiln Mechanic: NADIA FRENCH ([id number])[facility])[address] [place] [address] [place] C-REACTIVE PROTEINon 025 CRP [Mass/Vol] 113.6 mg/L High <5.[address] [facility] Comment on above: Performed By: #### L [id number], [id number], [id number] ####Kiln Mechanic: NADIA FRENCH ([id number])[facility])[address] [place] [address] [place] CBC W Auto Differential pane l [...] 11.9 10*3/uL High 1.8 - 7.5 10*3/uL [facility] Neutrophils/100 WBC (Bld) 83.6 % High 38.0 - 82.0 % [facility] [employer] Nucleated RBC/100 WBC (Bld) [Ratio] 0 % [facility] [employer] Platelet mean volume (Bld) [Entitic vol] 9.3 fL 9.0 - 12.7 fL [facility] Platelets (Bld) [#/Vol] 408 10*3/uL 140 - 440 10*3/uL [facility] RBC (Bld) [#/Vol] 3.35 10*6/uL Low 3.80 - 5.20 10*6/uL [facility] WBC (Bld) [#/Vol] 14.2 10*3/uL High 3.6 - 10.7 10*3/uL [facility] CBC W Auto Differential pane l (Bld)on 06-17-2025 Basophils (Bld) [#/Vol] 0.1 10*3/uL 0.0 - 0.2 10*3/uL [facility] Basophils/100 WBC (Bld) 0.5 % 0.0 - 2.0 % [facility] Eosinophils (Bld) [#/Vol] 0.2 10*3/uL 0.0 - 0.5 10*3/uL [facility] Eosinophils/100 WBC (Bld) 1.2 % 0.0 - 6.0 % [facility] Erythrocyte distribution width (RBC) [Ratio] 25.6 % High 11.5 - 15.0 % [facility] Hematocrit (Bld) [Volume fraction] 29 % Low 35.0 - 47.0 % [facility] Hemoglobin (Bld) [Mass/Vol] 8.4 g/dL Low 11.7 - 16.0 g/dL [facility] [employer] Immature granulocytes (Bld) [#/Vol] 0.1 10*3/uL High NINF - 0.1 10*3/uL [facility] [employer] Immature granulocytes/100 WBC (Bld) 0.5 % 0.0 - 2.0 % [facility] Interpretation and review of laboratory results Abnormal [facility] [employer] Lymphocytes (Bld) [#/Vol] 1.4 10*3/uL 1.0 - 4.3 10*3/uL [facility] Lymphocytes/100 WBC (Bld) 10.5 % Low 15.0 - 45.0 % [facility] MCH (RBC) [Entitic mass] 23.3 pg Low 26.0 - 34.0 pg [facility] MCHC (RBC) [Mass/Vol] 29 % Low 30.5 - 36.0 % [facility] MCV (RBC) [Entitic vol] 80.6 fL 77.0 - 99.0 fL [facility] Monocytes (Bld) [#/Vol] 0.9 10*3/uL 0.0 - 0.9 10*3/uL [facility] Monocytes/100 WBC (Bld) 6.4 % 5.0 - 13.0 % [facility] Neutrophils (Bld) [#/Vol] 10.7 10*3/uL High 1.8 - 7.5 10*3/uL [facility] Neutrophils/100 WBC (Bld) 80.9 % 38.0 - 82.0 % [facility] Nucleated RBC/100 WBC (Bld) [Ratio] 0 % [facility] Platelet mean volume (Bld) [Entitic vol] 9.8 fL 9.0 - 12.7 fL [facility] Platelets (Bld) [#/Vol] 524 10*3/uL High 140 - 440 10*3/uL [facility] RBC (Bld) [#/Vol] 3.6 10*6/uL Low 3.80 - 5.20 10*6/uL [facility] WBC (Bld) [#/Vol] 13.3 10*3/uL High 3.6 - 10.7 10*3/uL [facility] CBC WITH AUTO DIFFERENTIALon 06-17-2025 Basophils (Bld) [#/Vol] 0.0 10*3/uL Normal 0.0-0.[address] [facility] Comment on above: Performed By: #### L [id number] ####Kiln Mechanic: NADIA FRENCH ([id number])[facility])[address] [place] [address] Basophils/100 WBC (Bld) 0.3 % Normal 0.0-2.0 [facility] Comment on above: Performed By: #### L [id number] ####Kiln Mechanic: NADIA FRENCH ([id number])[facility] Eosinophils (Bld) [#/Vol] 0.1 10*3/uL Normal 0.0-0.[address] [facility] Comment on above: Performed By: #### L [id number] ####Kiln Mechanic: NADIA FRENCH ([id number])[facility])[address] [place] [address] Eosinophils/100 WBC (Bld) 0.4 % Normal 0.0-6.[address] [facility] Comment on above: Performed By: #### L [id number] ####Kiln Mechanic: NADIA FRENCH ([id number])[address] Erythrocyte distribution width (RBC) [Ratio] 25.6 % High 11.5-15.[address] [facility] Comment on above: Performed By: #### L [id number] ####Kiln Mechanic: NADIA FRENCH ([id number])[address] Hematocrit (Bld) [Volume fraction] 26.5 % Low 35.0-47.[address] [facility] Comment on above: Performed By: #### L [id number] ####Kiln Mechanic: NADIA FRENCH ([id number])[address] Hemoglobin (Bld) [Mass/Vol] 7.7 g/dL Low 11.7-16.[address] [facility] Comment on above: Performed By: #### L [id number] ####Kiln Mechanic: NADIA FRENCH ([id number])[address] IMMATURE GRANS % 0.6 % Normal 0.0-2.[address] [facility] Comment on above: Performed By: #### L [id number] ####Kiln Mechanic: NADIA FRENCH ([id number])[address] IMMATURE GRANS ABSOLUTE 0.1 10*3/uL High <0.[address] [facility] Comment on above: Performed By: #### L [id number] ####Kiln Mechanic: NADIA FRENCH ([id number])[facility])[address] [place] [address] Lymphocytes (Bld) [#/Vol] 1.3 10*3/uL Normal 1.0-4.[address] [facility] Comment on above: Performed By: #### L [id number] ####Kiln Mechanic: NADIA FRENCH ([id number])[facility])[address] [place] [address] Lymphocytes/100 WBC (Bld) 8.9 % Low 15.0-45.[address] [facility] Comment on above: Performed By: #### L [id number] ####Kiln Mechanic: NADIA FRENCH ([id number])[facility])[address] [place] [address] MCH (RBC) [Entitic mass] 23.0 pg Low 26.0-34.[address] [facility] Comment on above: Performed By: #### L [id number] ####Kiln Mechanic: NADIA FRENCH ([id number])[facility])[address] [place] [address] MCHC 29.1 % Low 30.5-36.[address] [facility] Comment on above: Performed By: #### L [id number] ####Kiln Mechanic: NADIA FRENCH ([id number])[facility])[address] [place] [address] MCV (RBC) [Entitic vol] 79.1 fL Normal 77.0-99.0 [facility] Comment on above: Performed By: #### L [id number] ####Kiln Mechanic: NADIA FRENCH ([id number])[facility])[address] [place] [address] Monocytes (Bld) [#/Vol] 0.9 10*3/uL Normal 0.0-0.[address] [facility] Comment on above: Performed By: #### L [id number] ####Kiln Mechanic: NADIA FRENCH ([id number])[facility])[address] [place] [address] [place] Monocytes/100 WBC (Bld) 6.2 % Normal 5.0-13.0 [facility] Comment on above: Performed By: #### L [id number] ####Kiln Mechanic: NADIA FRENCH ([id number])[facility])[address] [place] [address] NEUTROPHILS ABSOLUTE 11.9 10*3/uL High 1.8-7.5 [facility] Comment on above: Performed By: #### L [id number] ####Kiln Mechanic: NADIA FRENCH ([id number])[facility])[address] [place] [address] Neutrophils/100 WBC (Bld) 83.6 % High 38.0-82.[address] [facility] Comment on above: Performed By: #### L [id number] ####Kiln Mechanic: NADIA FRENCH ([id number])[facility])[address] [place] [address] NRBC 0.0 /100 WBCs Normal 0.0-2.[address] [facility] Comment on above: Performed By: #### L [id number] ####Kiln Mechanic: NADIA FRENCH ([id number])[facility])[address] [place] [address] Platelet mean volume (Bld) [Entitic vol] 9.3 fL Normal 9.0-12.[address] [facility] Comment on above: Performed By: #### L [id number] ####Kiln Mechanic: NADIA FRENCH ([id number])[facility])[address] [place] [address] [place] Platelets (Bld) [#/Vol] 408 10*3/uL Normal 140-[address] [facility] Comment on above: Performed By: #### L [id number] ####Kiln Mechanic: NADIA FRENCH ([id number])[facility])[address] [place] [address] RBC (Bld) [#/Vol] 3.35 10*6/uL Low 3.80-5.[address] [facility] Comment on above: Performed By: #### L [id number] ####Kiln Mechanic: NADIA FRENCH ([id number])[facility])[address] [place] [address] WBC (Bld) [#/Vol] 14.2 10*3/uL High 3.6-10.7 [facility] Comment on above: Performed By: #### L [id number] ####Kiln Mechanic: NADIA FRENCH ([id number])[facility])[address] [place] [address] Basophils (Bld) [#/Vol] 0.1 10*3/uL Normal 0.0-0.[address] [facility] Comment on above: Performed By: #### L [id number] ####Kiln Mechanic: NADIA FRENCH ([id number])[facility])[address] [place] [address] Basophils/100 WBC (Bld) 0.5 % Normal 0.0-2.0 [facility] Comment on above: Performed By: #### L [id number] ####Kiln Mechanic: NADIA FRENCH ([id number])[facility])[address] [place] [address] Eosinophils (Bld) [#/Vol] 0.2 10*3/uL Normal 0.0-0.[address] [facility] Comment on above: Performed By: #### L [id number] ####Kiln Mechanic: NADIA FRENCH ([id number])[facility])[address] [place] [address] Eosinophils/100 WBC (Bld) 1.2 % Normal 0.0-6.[address] [facility] Comment on above: Performed By: #### L [id number] ####Kiln Mechanic: NADIA FRENCH ([id number])[facility])[address] [place] [address] Erythrocyte distribution width (RBC) [Ratio] 25.6 % High 11.5-15.0 [facility] Comment on above: Performed By: #### L [id number] ####Kiln Mechanic: NADIA FRENCH ([id number])[facility])[address] [place] [address] Hematocrit (Bld) [Volume fraction] 29.0 % Low 35.0-47.0 [facility] Comment on above: Performed By: #### L [id number] ####Kiln Mechanic: NADIA FRENCH ([id number])[facility])[address] [place] [address] Hemoglobin (Bld) [Mass/Vol] 8.4 g/dL Low 11.7-16.[address] [facility] Comment on above: Performed By: #### L [id number] ####Kiln Mechanic: NADIA FRENCH ([id number])[facility])[address] [place] [address] IMMATURE GRANS % 0.5 % Normal 0.0-2.0 [facility] Comment on above: Performed By: #### L [id number] ####Kiln Mechanic: NADIA FRENCH ([id number])[facility])[address] [place] [address] IMMATURE GRANS ABSOLUTE 0.1 10*3/uL High <0.1 [facility] Comment on above: Performed By: #### L [id number] ####Kiln Mechanic: NADIA FRENCH ([id number])[facility])[address] [place] [address] Lymphocytes (Bld) [#/Vol] 1.4 10*3/uL Normal 1.0-4.3 [facility] Comment on above: Performed By: #### L [id number] ####Kiln Mechanic: NADIA FRENCH ([id number])[facility])[address] [place] [address] Lymphocytes/100 WBC (Bld) 10.5 % Low 15.0-45.[address] [facility] Comment on above: Performed By: #### L [id number] ####Kiln Mechanic: NADIA FRENCH ([id number])[facility])[address] [place] [address] MCH (RBC) [Entitic mass] 23.3 pg Low 26.0-34.[address] [facility] Comment on above: Performed By: #### L [id number] ####Kiln Mechanic: NADIA FRENCH ([id number])[facility])[address] [place] [address] MCHC 29.0 % Low 30.5-36.[address] [facility] Comment on above: Performed By: #### L [id number] ####Kiln Mechanic: NADIA FRENCH ([id number])[address] MCV (RBC) [Entitic vol] 80.6 fL Normal 77.0-99.0 [facility] Comment on above: Performed By: #### L [id number] ####Kiln Mechanic: NADIA FRENCH ([id number])[facility])[address] [place] [address] Monocytes (Bld) [#/Vol] 0.9 10*3/uL Normal 0.0-0.9 [facility] Comment on above: Performed By: #### L [id number] ####Kiln Mechanic: NADIA FRENCH ([id number])[facility])[address] [place] [address] Monocytes/100 WBC (Bld) 6.4 % Normal 5.0-13.0 [facility] Comment on above: Performed By: #### L [id number] ####Kiln Mechanic: NADIA FRENCH ([id number])[address] NEUTROPHILS ABSOLUTE 10.7 10*3/uL High 1.8-7.5 [facility] Comment on above: Performed By: #### L [id number] ####Kiln Mechanic: NADIA [id number])[facility] [place] [address] Neutrophils/100 WBC (Bld) 80.9 % Normal 38.0-82.[address] [facility] Comment on above: Performed By: #### L [id number] ####Kiln Mechanic: NADIA FRENCH ([id number])[facility])[address] [place] [address] NRBC 0.0 /100 WBCs Normal 0.0-2.[address] [facility] Comment on above: Performed By: #### L [id number] ####Kiln Mechanic: NADIA FRENCH ([id number])[facility])[address] [place] [address] Platelet mean volume (Bld) [Entitic vol] 9.8 fL Normal 9.0-12.[address] [facility] Comment on above: Performed By: #### L [id number] ####Kiln Mechanic: NADIA FRENCH ([id number])[facility])[address] [place] [address] Platelets (Bld) [#/Vol] 524 10*3/uL High 140-[address] [facility] Comment on above: Performed By: #### L [id number] ####Kiln Mechanic: NADIA FRENCH ([id number])[facility])[address] [place] [address] RBC (Bld) [#/Vol] 3.60 10*6/uL Low 3.80-5.[address] [facility] Comment on above: Performed By: #### L [id number] ####Kiln Mechanic: NADIA FRENCH ([id number])[facility])[address] [place] [address] [place] WBC (Bld) [#/Vol] 13.3 10*3/uL High 3.6-10.[address] [facility] Comment on above: Performed By: #### L [id number] ####Kiln Mechanic: NADIA FRENCH ([id number])[facility] ([facility])[address] [place] [address] COMPREHENSIVE METABOLIC PANE David 06-17-2025 Albumin [Mass/Vol] 1.9 g/dL Low 3.4-4.[address] [facility] Comment on above: Performed By: #### L [id number], [id number], [id number] ####Kiln Mechanic: NADIA FRENCH ([id number])[facility] ([facility])[address] [place] [address] ALP [Catalytic activity/Vol] 82 U/L Normal 40-[address] [facility] Comment on above: Performed By: #### L [id number], [id number], [id number] ####Kiln Mechanic: NADIA FRENCH ([id number])[facility] ([facility])[address] [place] [address] ALT [Catalytic activity/Vol] 9 U/L Normal <30 [facility] Comment on above: Performed By: #### Jama [id number], [id number], [id number] ####Kiln Mechanic: NADIA FRENCH ([id number])[facility] ([facility])[address] [place] [address] Anion gap [Moles/Vol] 7 mmol/L Normal 3-13 [place] [facility] Comment on above: Performed By: #### L [id number], [id number], [id number] ####Kiln Mechanic: NADIA FRENCH ([id number])[facility] ([facility])[address] [place] [address] AST [Catalytic activity/Vol] 22 U/L Normal <[address] [facility] Comment on above: Performed By: #### L [id number], [id number], [id number] ####Kiln Mechanic: NADIA FRENCH ([id number])[facility] ([facility])[address] [place] [address] Bilirubin [Mass/Vol] 0.6 mg/dL Normal <1.2 [facility] Comment on above: Performed By: #### L [id number], [id number], [id number] ####Kiln Mechanic: NADIA FRENCH ([id number])[facility])[address] [place] [address] Calcium [Mass/Vol] 7.8 mg/dL Low 8.8-10.0 [facility] Comment on above: Performed By: #### L [id number], [id number], [id number] ####Kiln Mechanic: NADIA FRENCH ([id number])[facility] ([facility])[address] [place] [address] Chloride [Moles/Vol] 104 mmol/L Normal 98-107 [facility] Comment on above: Performed By: #### L [id number], [id number], [id number] ####Kiln Mechanic: NADIA FRENCH ([id number])[facility])[address] [place] [address] CO2 [Moles/Vol] 23 mmol/L Normal 23-31 [facility] Comment on above: Performed By: #### Jama [id number], [id number], [id number] ####Kiln Mechanic: NADIA FRENCH ([id number])[facility] ([facility])[address] [place] [address] Creatinine [Mass/Vol] 1.06 mg/dL Normal 0.57-1.11 [facility] Comment on above: Performed By: #### L [id number], [id number], [id number] ####Kiln Mechanic: NADIA FRENCH ([id number])[facility])[address] [place] [address] [place] GLOMERULAR FILTRATION RATE ML/MIN/1.73 SQ M.PREDICTED 59.9 mL/min/1.73m*2 Low >60.0 [facility] Comment on above: Result Comment: Calc ulation based on the Chronic Kidney Disease Epidemiology Collaboration (CKD-EPI) equation refit without adjustment for race Performed By: #### L [id number], [id number], [id number] ####Kiln Mechanic: NADIA FRENCH ([id number])[facility])[address] [place] [address] [place] Glucose [Mass/Vol] 97 mg/dL Normal 82-115 [facility] Comment on above: Performed By: #### L [id number], [id number], [id number] ####Kiln Mechanic: NADIA FRENCH ([id number])[facility])[address] [place] [address] Potassium [Moles/Vol] 4.7 mmol/L Normal 3.5-5.1 [facility] Comment on above: Performed By: #### L [id number], [id number], [id number] ####Kiln Mechanic: NADIA FRENCH ([id number])[facility])[address] [place] [address] Protein [Mass/Vol] 6.4 g/dL Normal 6.4-8.[address] [facility] Comment on above: Performed By: #### L [id number], [id number], [id number] ####Kiln Mechanic: NADIA FRENCH ([id number])[facility])[address] [place] [address] Sodium [Moles/Vol] 134 mmol/L Low 136-[address] [facility] Comment on above: Performed By: #### L [id number], [id number], [id number] ####Kiln Mechanic: NADIA FRENCH ([id number])[facility])[address] [place] [address] Urea nitrogen [Mass/Vol] 34 mg/dL High 9-[address] [facility] Comment on above: Performed By: #### L [id number], [id number], [id number] ####Kiln Mechanic: NADIA FRENCH ([id number])[facility])[address] [place] [address] Albumin [Mass/Vol] 2.1 g/dL Low 3.4-4.[address] [facility] Comment on above: Performed By: #### L [id number] ####Kiln Mechanic: NADIA FRENCH ([id number])[facility])[address] [place] [address] ALP [Catalytic activity/Vol] 92 U/L Normal 40-[address] [facility] Comment on above: Performed By: #### L [id number] ####Kiln Mechanic: NADIA FRENCH ([id number])[facility] [place] [address] ALT [Catalytic activity/Vol] 12 U/L Normal <[address] [facility] Comment on above: Performed By: #### L [id number] ####Kiln Mechanic: NADIA FRENCH ([id number])[facility] ([facility])[address] [place] [address] Anion gap [Moles/Vol] 8 mmol/L Normal 3-13 [facility] Comment on above: Performed By: #### L [id number] ####Kiln Mechanic: NADIA FRENCH ([id number])[facility] ([facility])[address] [place] [address] AST [Catalytic activity/Vol] 29 U/L Normal <[address] [facility] Comment on above: Performed By: #### L [id number] ####Kiln Mechanic: NADIA FRENCH ([id number])[facility] ([facility])[address] [place] [address] Bilirubin [Mass/Vol] 0.6 mg/dL Normal <1.2 [facility] Comment on above: Performed By: #### L [id number] ####Kiln Mechanic: NADIA FRENCH ([id number])[facility] ([facility])[address] [place] [address] Calcium [Mass/Vol] 8.2 mg/dL Low 8.8-10.[address] [facility] Comment on above: Performed By: #### L [id number] ####Kiln Mechanic: NADIA FRENCH ([id number])[facility] ([facility])[address] [place] [address] [place] Chloride [Moles/Vol] 102 mmol/L Normal 98-107 [facility] Comment on above: Performed By: #### L [id number] ####Kiln Mechanic: NADIA FRENCH ([id number])[facility] ([facility])[address] [place] [address] CO2 [Moles/Vol] 23 mmol/L Normal 23-[address] [facility] Comment on above: Performed By: #### L [id number] ####Kiln Mechanic: NADIA FRENCH ([id number])[facility])[address] [place] [address] Creatinine [Mass/Vol] 1.13 mg/dL High 0.57-1.11 [facility] Comment on above: Performed By: #### L [id number] ####Kiln Mechanic: NADIA FRENCH ([id number])[facility])[address] [place] [address] GLOMERULAR FILTRATION RATE ML/MIN/1.73 SQ M.PREDICTED 55.5 mL/min/1.73m*2 Low >60.0 [facility] Comment on above: Result Comment: Calc ulation based on the Chronic Kidney Disease Epidemiology Collaboration (CKD-EPI) equation refit without adjustment for race Performed By: #### L [id number] ####Kiln Mechanic: NADIA FRENCH ([id number])[facility])[address] [place] [address] Glucose [Mass/Vol] 88 mg/dL Normal 82-115 [facility] Comment on above: Performed By: #### L [id number] ####Kiln Mechanic: NADIA FRENCH ([id number])[facility])[address] [place] [address] Potassium [Moles/Vol] 4.2 mmol/L Normal 3.5-5.1 [facility] Comment on above: Performed By: #### L [id number] ####Kiln Mechanic: NADIA FRENCH ([id number])[facility])[address] [place] [address] Protein [Mass/Vol] 6.8 g/dL Normal 6.4-8.3 [facility] Comment on above: Performed By: #### L [id number] ####Kiln Mechanic: NADIA FRENCH ([id number])[facility])[address] [place] [address] Sodium [Moles/Vol] 133 mmol/L Low 136-145 [facility] Comment on above: Performed By: #### L [id number] ####Kiln Mechanic: NADIA FRENCH ([id number])[facility] ([facility])[address] [place] [address] Urea nitrogen [Mass/Vol] 32 mg/dL High - [facility] Comment on above: Performed By: #### L [id number] ####Kiln Mechanic: NADIA FRENCH ([id number])[facility] ([facility])[address] [place] [address] CRP [Mass/Vol]on 06-17-2025 Interpretation and review of laboratory results Abnormal [facility] CT CHEST ANGIOGRAM W AND/OR WO IV CONTRASTon 06-17-2025 CT CHEST ANGIOGRAM W AND/OR WO IV CONTRAST Normal [facility] CTA Chest vessels WO and W c ontrast [place] 06-17-2025 [facility] Radiology Study observation (narrative) [facility] CTA Chest vessels WO and W c ontrast IVOrdered By: Juvenal Rosas on 06-17-2025 [facility] Work Phone: Comprehensive metabolic 1998 panelon 06-17-2025 Albumin [Mass/Vol] 1.9 g/dL Low 3.4 - 4.8 g/dL [facility] ALP [Catalytic activity/Vol] 82 U/L 40 - 150 U/L [facility] ALT [Catalytic activity/Vol] 9 U/L NINF - 30 U/L [facility] Anion gap [Moles/Vol] 7 mmol/L 3 - 13 mmol/L [facility] AST [Catalytic activity/Vol] 22 U/L NINF - 34 U/L [facility] Bilirubin [Mass/Vol] 0.6 mg/dL NINF - 1.2 mg/dL [facility] Calcium [Mass/Vol] 7.8 mg/dL Low 8.8 - 10. 0 mg/dL [facility] Chloride [Moles/Vol] 104 mmol/L 98 - 10 7 mmol/L [facility] CO2 [Moles/Vol] 23 mmol/L 23 - 31 mmol/L [facility] Creatinine [Mass/Vol] 1.06 mg/dL 0.57 - 1.11 mg/dL [facility] GFR/1.73 sq M.predicted (S/P/Bld) [Vol rate/Area] 59.9 mL/min Low - PINF [facility] Glucose [Mass/Vol] 97 mg/dL 82 - 115 mg/dL [facility] Interpretation and review of laboratory results Abnormal [facility] Potassium [Moles/Vol] 4.7 mmol/L 3.5 - 5.1 mmol/L [facility] Protein [Mass/Vol] 6.4 g/dL 6.4 - 8.3 g/dL [facility] Sodium [Moles/Vol] 134 mmol/L Low 136 - 145 mmol/L [facility] Urea nitrogen [Mass/Vol] 34 mg/dL High 9 - 23 mg/dL [facility] Albumin [Mass/Vol] 2.1 g/dL Low 3.4 - 4.8 g/dL [facility] ALP [Catalytic activity/Vol] 92 U/L 40 - 150 U/L [facility] ALT [Catalytic activity/Vol] 12 U/L NINF - 30 U/L [facility] Anion gap [Moles/Vol] 8 mmol/L 3 - 13 mmol/L [facility] AST [Catalytic activity/Vol] 29 U/L NINF - 34 U/L [facility] Bilirubin [Mass/Vol] 0.6 mg/dL NINF - 1.2 mg/dL [facility] Calcium [Mass/Vol] 8.2 mg/dL Low 8.8 - 10. 0 mg/dL [facility] Chloride [Moles/Vol] 102 mmol/L 98 - 10 7 mmol/L [facility] CO2 [Moles/Vol] 23 mmol/L 23 - 31 mmol/L [facility] Creatinine [Mass/Vol] 1.13 mg/dL High 0.57 - 1.11 mg/dL [facility] GFR/1.73 sq M.predicted (S/P/Bld) [Vol rate/Area] 55.5 mL/min Low - PINF [facility] Glucose [Mass/Vol] 88 mg/dL 82 - 115 mg/dL [facility] Interpretation and review of laboratory results Abnormal [facility] Potassium [Moles/Vol] 4.2 mmol/L 3.5 - 5.1 mmol/L [facility] Protein [Mass/Vol] 6.8 g/dL 6.4 - 8.3 g/dL [facility] Sodium [Moles/Vol] 133 mmol/L Low 136 - 145 mmol/L [facility] Urea nitrogen [Mass/Vol] 32 mg/dL High 9 - 23 mg/dL [facility] Health Consulton 06-17-2025 Consult Normal [facility] Consult Normal [facility] HIGH SENSITIVITY TROPONIN, S ERIAL BASELINEon 06-17-2025 TROPONIN HS SERIAL BASELINE 16 ng/L High <=[address] [facility] Comment on above: Result Comment: In i ndividuals presenting with symptoms > 2h, a baseline troponin <= 5 ng/L suggests acutecardiac injury is unlikely and further serial testing is generally not indicated. Performed By: #### L [id number], [id number], [id number] ####Kiln Mechanic: NADIA FRENCH ([id number])[facility])[address] [place] [address] HIGH SENSITIVITY TROPONIN, S ERIAL, SECOND TESTon 06-17-2025 2H TROPONIN HS (SERIAL 2ND TROPONIN) 16 ng/L High <=14 [facility] Comment on above: Result Comment: Risi ng or falling troponin delta below 2 ng/L as compared to baseline value suggests thatacute cardiac injury is unlikely. Performed By: #### L [id number], [id number], [id number] ####Kiln Mechanic: NADIA FRENCH ([id number])[facility])[address] [place] [address] LACTIC ACID WITH REFLEXon Lactate [Moles/Vol] 0.7 mmol/L Normal 0.5-2.2 [facility] Comment on above: Performed By: #### L [id number] ####Kiln Mechanic: NADIA FRENCH ([id number])[facility] ([facility])[address] [place] [address] Laboratory - Chemistry and C hemistry - challengeon 06-17-2025 CRP [Mass/Vol] 113.6 mg/L High NINF - 5.0 mg/L [facility] Procalcitonin [Mass/Vol] 0.25 ng/mL High NINF - 0.07 ng/mL [facility] Lactate [Moles/Vol] 0.7 mmol/L 0.5 - 2. 2 mmol/L [facility] Laboratory - Chemistry and C hemistry - challengeOrdered By: Nancy Petersen on 06-17-2025 Base excess Calc (Bld) [Moles/Vol] 1.8 mmol/L -3.0 - 3.0 mmol/L [facility] CO2 (Bld) [Partial pressure] 31.5 mm[Hg] Low - PINF [facility] CO2 [Moles/Vol] 25.7 mmol/L 23.0 - 27.0 mmol/L [facility] HCO3 (Bld) [Moles/Vol] 24.7 mmol/L 21.0 - 25.0 mmol/L [facility] Oxygen (Bld) [Partial pressure] 73.7 mm[Hg] Low [facility] pH (Bld) 7.512 [pH] High 7.350 - 7.450 [facility] Laboratory - Hematology and Cell countsOrdered By: Nancy Petersen on 06-17-2025 Hemoglobin (Bld) [Mass/Vol] 8.3 g/dL 7.0 g/dl [facility] NT PRO BNPon 06-17-2025 Natriuretic peptide B (Bld) [Mass/Vol] 52599 pg/mL High <125 [facility] Comment on above: Performed By: #### L [id number], [id number], [id number] ####Kiln Mechanic: NADIA FRENCH ([id number])[address] Natriuretic peptide B [Mass/ Vol]on 06-17-2025 Interpretation and review of laboratory results Abnormal [facility] Natriuretic peptide B (Bld) [Mass/Vol] 42612 pg/mL High NINF - 125 pg/mL [facility] No Panel Informationon 06-17 2h Troponin HS (Serial 2nd Troponin) 16 ng/L High NINF - 14 ng/L [facility] Interpretation and review of laboratory results Abnormal [facility] Interpretation and review of laboratory results Abnormal [facility] Troponin HS Serial Baseline 16 ng/L High NINF - 14 ng/L [facility] Interpretation and review of laboratory results Normal [facility] No Panel InformationOrdered By: Nancy Petersen on 06-17-2025 Amount Of Oxygen 60% [facility] Interpretation and review of laboratory results Abnormal [facility] Source Of Oxygen Non-Invasive Ventilator [facility] Nursing Noteon 06-17-2025 Nursing Note Patient off unit to radiology for CT scan. Normal [facility] PROCALCITONIN TESTon 025 PROCALCITONIN 0.25 ng/mL High <0.07 [facility] Comment on above: Result Comment: REGGIEE R COMMENTS:PCT <0.50 = Low risk of severe sepsis and/or septic shock.PCT >2.00 = High risk of severe sepsis and/or septic shock. Performed By: #### L [id number], [id number], [id number] ####Kiln Mechanic: NADIA FRENCH ([id number])[address] Procalcitonin [Mass/Vol]on 0 06-17-2025 Interpretation and review of laboratory results Abnormal [facility] Progress Noteon 06-17-2025 Progress Note Normal [facility] Progress Note Normal [facility] Progress Note Normal [facility] Progress Note Normal [facility] CBC W Auto Differential pane l (Bld)on 06-16-2025 Basophils (Bld) [#/Vol] 0.1 10*3/uL 0.0 - 0.2 10*3/uL [facility] Basophils/100 WBC (Bld) 0.5 % 0.0 - 2.0 % [facility] Eosinophils (Bld) [#/Vol] 0.2 10*3/uL 0.0 - 0.5 10*3/uL [facility] Eosinophils/100 WBC (Bld) 1.9 % 0.0 - 6.0 % [facility] Erythrocyte distribution width (RBC) [Ratio] 25.6 % High 11.5 - 15.0 % [facility] Hematocrit (Bld) [Volume fraction] 27.5 % Low 35.0 - 47.0 % [facility] Hemoglobin (Bld) [Mass/Vol] 7.9 g/dL Low 11.7 - 16.0 g/dL [facility] Immature granulocytes (Bld) [#/Vol] 0 10*3/uL NINF - 0.1 10*3/uL [facility] Immature granulocytes/100 WBC (Bld) 0.4 % 0.0 - 2.0 % [facility] Interpretation and review of laboratory results Abnormal [facility] [employer] Lymphocytes (Bld) [#/Vol] 1.2 10*3/uL 1.0 - 4.3 10*3/uL [facility] Lymphocytes/100 WBC (Bld) 13.4 % Low 15.0 - 45.0 % [facility] MCH (RBC) [Entitic mass] 23.2 pg Low 26.0 - 34.0 pg [facility] MCHC (RBC) [Mass/Vol] 28.7 % Low 30.5 - 36.0 % [facility] MCV (RBC) [Entitic vol] 80.9 fL 77.0 - 99.0 fL [facility] [employer] Monocytes (Bld) [#/Vol] 0.7 10*3/uL 0.0 - 0.9 10*3/uL [facility] Monocytes/100 WBC (Bld) 7.7 % 5.0 - 13.0 % [facility] Neutrophils (Bld) [#/Vol] 6.9 10*3/uL 1.8 - 7.5 10*3/uL [facility] Neutrophils/100 WBC (Bld) 76.1 % 38.0 - 82.0 % [facility] Nucleated RBC/100 WBC (Bld) [Ratio] 0 % [facility] [employer] Platelet mean volume (Bld) [Entitic vol] 9.8 fL 9.0 - 12.7 fL [facility] Platelets (Bld) [#/Vol] 482 10*3/uL High 140 - 440 10*3/uL [facility] RBC (Bld) [#/Vol] 3.4 10*6/uL Low 3.80 - 5.20 10*6/uL [facility] WBC (Bld) [#/Vol] 9.1 10*3/uL 3.6 - 10.7 10*3/uL [facility] CBC WITH AUTO DIFFERENTIALon 06-16-2025 Basophils (Bld) [#/Vol] 0.1 10*3/uL Normal 0.0-0.2 [facility] Comment on above: Performed By: #### L [id number] ####Kiln Mechanic: NADIA FRENCH ([id number])[facility] ([address] Basophils/100 WBC (Bld) 0.5 % Normal 0.0-2.0 [facility] Comment on above: Performed By: #### L [id number] ####Kiln Mechanic: NADIA FRENCH ([id number])[facility])[address] [place] [address] Eosinophils (Bld) [#/Vol] 0.2 10*3/uL Normal 0.0-0.5 [facility] Comment on above: Performed By: #### L [id number] ####Kiln Mechanic: NADIA FRENCH ([id number])[facility])[address] [place] [address] Eosinophils/100 WBC (Bld) 1.9 % Normal 0.0-6.0 [facility] Comment on above: Performed By: #### L [id number] ####Kiln Mechanic: NADIA FRENCH ([id number])[facility])[address] [place] [address] Erythrocyte distribution width (RBC) [Ratio] 25.6 % High 11.5-15.[address] [facility] Comment on above: Performed By: #### L [id number] ####Kiln Mechanic: NADIA FRENCH ([id number])[facility])[address] [place] [address] Hematocrit (Bld) [Volume fraction] 27.5 % Low 35.0-47.[address] [facility] Comment on above: Performed By: #### L [id number] ####Kiln Mechanic: NADIA FRENCH ([id number])[facility])[address] [place] [address] Hemoglobin (Bld) [Mass/Vol] 7.9 g/dL Low 11.7-16.[address] [facility] Comment on above: Performed By: #### L [id number] ####Kiln Mechanic: NADIA FRENCH ([id number])[facility])[address] [place] [address] IMMATURE GRANS % 0.4 % Normal 0.0-2.[address] [facility] Comment on above: Performed By: #### L [id number] ####Kiln Mechanic: NADIA FRENCH ([id number])[address] IMMATURE GRANS ABSOLUTE 0.0 10*3/uL Normal <0.[address] [facility] Comment on above: Performed By: #### L [id number] ####Kiln Mechanic: NADIA FRENCH ([id number])[facility])[address] [place] [address] Lymphocytes (Bld) [#/Vol] 1.2 10*3/uL Normal 1.0-4.[address] [facility] Comment on above: Performed By: #### L [id number] ####Kiln Mechanic: NADIA FRENCH ([id number])[address] Lymphocytes/100 WBC (Bld) 13.4 % Low 15.0-45.[address] [facility] Comment on above: Performed By: #### L [id number] ####Kiln Mechanic: NADIA FRENCH ([id number])[address] MCH (RBC) [Entitic mass] 23.2 pg Low 26.0-34.[address] [facility] Comment on above: Performed By: #### L [id number] ####Kiln Mechanic: NADIA FRENCH ([id number])[address] MCHC 28.7 % Low 30.5-36.[address] [facility] Comment on above: Performed By: #### L [id number] ####Kiln Mechanic: NADIA FRENCH ([id number])[address] MCV (RBC) [Entitic vol] 80.9 fL Normal 77.0-99.0 [facility] Comment on above: Performed By: #### L [id number] ####Kiln Mechanic: NADIA FRENCH ([id number])[facility] [place] [address] Monocytes (Bld) [#/Vol] 0.7 10*3/uL Normal 0.0-0.9 [facility] Comment on above: Performed By: #### L [id number] ####Kiln Mechanic: NADIA FRENCH ([id number])[facility] ([facility])[address] [place] [address] Monocytes/100 WBC (Bld) 7.7 % Normal 5.0-13.0 [facility] Comment on above: Performed By: #### L [id number] ####Kiln Mechanic: NADIA FRENCH ([id number])[facility] ([facility])[address] [place] [address] NEUTROPHILS ABSOLUTE 6.9 10*3/uL Normal 1.8-7.5 [facility] Comment on above: Performed By: #### L [id number] ####Kiln Mechanic: NADIA FRENCH ([id number])[facility] ([facility])[address] [place] [address] Neutrophils/100 WBC (Bld) 76.1 % Normal 38.0-82.0 [facility] Comment on above: Performed By: #### L [id number] ####Kiln Mechanic: NADIA FRENCH ([id number])[facility] ([facility])[address] [place] [address] NRBC 0.0 /100 WBCs Normal 0.0-2.[address] [facility] Comment on above: Performed By: #### L [id number] ####Kiln Mechanic: NADIA FRENCH ([id number])[facility] ([facility])[address] [place] [address] Platelet mean volume (Bld) [Entitic vol] 9.8 fL Normal 9.0-12.[address] [facility] Comment on above: Performed By: #### L [id number] ####Kiln Mechanic: NADIA FRENCH ([id number])[facility] ([facility])[address] [place] [address] [place] Platelets (Bld) [#/Vol] 482 10*3/uL High 140-[address] [facility] Comment on above: Performed By: #### L [id number] ####Kiln Mechanic: NADIA FRENCH ([id number])[facility] ([facility])[address] [place] [address] RBC (Bld) [#/Vol] 3.40 10*6/uL Low 3.80-5.20 [facility] Comment on above: Performed By: #### L [id number] ####Kiln Mechanic: NADIA FRENCH ([id number])[facility] ([facility])[address] [place] [address] WBC (Bld) [#/Vol] 9.1 10*3/uL Normal 3.6-10.7 [facility] Comment on above: Performed By: #### L [id number] ####Kiln Mechanic: NADIA FRENCH ([id number])[facility] ([facility])[address] [place] [address] COMPREHENSIVE METABOLIC PANE David 06-16-2025 Albumin [Mass/Vol] 1.9 g/dL Low 3.4-4.8 [facility] Comment on above: Performed By: #### L [id number] ####Kiln Mechanic: NADIA FRENCH ([phone])[facility] ([facility])[address] [place] [address] ALP [Catalytic activity/Vol] 81 U/L Normal 40-150 [facility] Comment on above: Performed By: #### L [id number] ####Kiln Mechanic: NADIA FRENCH ([phone])[facility])[address] [place] [address] ALT [Catalytic activity/Vol] 12 U/L Normal <30 [facility] Comment on above: Performed By: #### L [id number] ####Kiln Mechanic: NADIA FRENCH ([id number])[facility])[address] [place] [address] Anion gap [Moles/Vol] 9 mmol/L Normal 3-13 [facility] Comment on above: Performed By: #### L [id number] ####Kiln Mechanic: NADIA FRENCH ([id number])[facility] ([facility])[address] [place] [address] AST [Catalytic activity/Vol] 28 U/L Normal <34 [facility] Comment on above: Performed By: #### L [id number] ####Kiln Mechanic: NADIA FRENCH ([id number])[facility] ([facility])[address] [place] [address] Bilirubin [Mass/Vol] 0.5 mg/dL Normal <1.2 [facility] Comment on above: Performed By: #### L [id number] ####Kiln Mechanic: NADIA FRENCH ([id number])[facility] ([facility])[address] [place] [address] Calcium [Mass/Vol] 8.1 mg/dL Low 8.8-10.0 [facility] Comment on above: Performed By: #### L [id number] ####Kiln Mechanic: NADIA FRENCH ([id number])[facility] [place] [address] [place] Chloride [Moles/Vol] 103 mmol/L Normal 98-107 [facility] Comment on above: Performed By: #### L [id number] ####Kiln Mechanic: NADIA FRENCH ([id number])[facility] ([facility])[address] [place] [address] [place] CO2 [Moles/Vol] 24 mmol/L Normal 23-31 [facility] Comment on above: Performed By: #### L [id number] ####Kiln Mechanic: NADIA FRENCH ([id number])[facility] ([facility])[address] [place] [address] [place] Creatinine [Mass/Vol] 1.02 mg/dL Normal 0.57-1.11 [facility] Comment on above: Performed By: #### L [id number] ####Kiln Mechanic: NADIA FRENCH ([id number])[facility] ([facility])[address] [place] [address] [place] GLOMERULAR FILTRATION RATE ML/MIN/1.73 SQ M.PREDICTED 62.7 mL/min/1.73m*2 Normal >60.0 [facility] Comment on above: Result Comment: Calc ulation based on the Chronic Kidney Disease Epidemiology Collaboration (CKD-EPI) equation refit without adjustment for race Performed By: #### L [id number] ####Kiln Mechanic: NADIA FRENCH ([id number])[facility])[address] [place] [address] Glucose [Mass/Vol] 86 mg/dL Normal 82-115 [facility] Comment on above: Performed By: #### L [id number] ####Kiln Mechanic: NADIA FRENCH ([id number])[facility])[address] [place] [address] Potassium [Moles/Vol] 4.3 mmol/L Normal 3.5-5.1 [facility] Comment on above: Result Comment: [facility] potassium values may be up to 0.5 mmol/L lower than serum values. Performed By: #### L [id number] ####Kiln Mechanic: NADIA FRENCH ([id number])[facility] ([facility])[address] [place] [address] Protein [Mass/Vol] 6.0 g/dL Low 6.4-8.3 [facility] Comment on above: Performed By: #### L [id number] ####Kiln Mechanic: NADIA FRENCH ([id number])[facility])[address] [place] [address] Sodium [Moles/Vol] 136 mmol/L Normal 136-145 [facility] Comment on above: Performed By: #### L [id number] ####Kiln Mechanic: NADIA FRENCH ([id number])[facility])[address] [place] [address] Urea nitrogen [Mass/Vol] 33 mg/dL High 9-23 [facility] Comment on above: Performed By: #### L [id number] ####Kiln Mechanic: NADIA FRENCH ([id number])[facility])[address] [place] [address] metabolic [facility] panelon 06-16-2025 Albumin [Mass/Vol] 1.9 g/dL Low 3.4 - 4.8 g/dL [facility] ALP [Catalytic activity/Vol] 81 U/L 40 - 150 U/L [facility] ALT [Catalytic activity/Vol] 12 U/L NINF - 30 U/L [facility] Anion gap [Moles/Vol] 9 mmol/L 3 - 13 mmol/L [facility] AST [Catalytic activity/Vol] 28 U/L NINF - 34 U/L [facility] Bilirubin [Mass/Vol] 0.5 mg/dL NINF - 1.2 mg/dL [facility] Calcium [Mass/Vol] 8.1 mg/dL Low 8.8 - 10. 0 mg/dL [facility] Chloride [Moles/Vol] 103 mmol/L 98 - 10 7 mmol/L [facility] CO2 [Moles/Vol] 24 mmol/L 23 - 31 mmol/L [facility] Creatinine [Mass/Vol] 1.02 mg/dL 0.57 - 1.11 mg/dL [facility] GFR/1.73 sq M.predicted (S/P/Bld) [Vol rate/Area] 62.7 mL/min - PINF [facility] Glucose [Mass/Vol] 86 mg/dL 82 - 115 mg/dL [facility] Interpretation and review of laboratory results Abnormal [facility] Potassium [Moles/Vol] 4.3 mmol/L 3.5 - 5.1 mmol/L [facility] Protein [Mass/Vol] 6 g/dL Low 6.4 - 8.3 g/dL [facility] Sodium [Moles/Vol] 136 mmol/L 136 - 145 mmol/L [facility] Urea nitrogen [Mass/Vol] 33 mg/dL High 9 - 23 mg/dL [facility] Progress Noteon 06-16-2025 Progress Note Normal [facility] [id number] 06-15-2025 [id number] Normal [facility] Anesthesia Noteon 06-15-2025 Anesthesia Note Normal [facility] CBC W Auto Differential pane l (Bld)Ordered By: Veda Berry on 06-15-2025 Basophils (Bld) [#/Vol] 0.1 10*3/uL 0.0 - 0.2 10*3/uL [facility] Basophils/100 WBC (Bld) 0.9 % 0.0 - 2.0 % [facility] Eosinophils (Bld) [#/Vol] 0.2 10*3/uL 0.0 - 0.5 10*3/uL [facility] Eosinophils/100 WBC (Bld) 3.1 % 0.0 - 6.0 % [facility] Erythrocyte distribution width (RBC) [Ratio] 26.4 % High 11.5 - 15.0 % [facility] Hematocrit (Bld) [Volume fraction] 28 % Low 35.0 - 47.0 % [facility] Hemoglobin (Bld) [Mass/Vol] 7.9 g/dL Low 11.7 - 16.0 g/dL [facility] Immature granulocytes (Bld) [#/Vol] 0 10*3/uL NINF - 0.1 10*3/uL [facility] Immature granulocytes/100 WBC (Bld) 0.4 % 0.0 - 2.0 % [facility] Interpretation and review of laboratory results Abnormal [facility] Lymphocytes (Bld) [#/Vol] 1.5 10*3/uL 1.0 - 4.3 10*3/uL [facility] Lymphocytes/100 WBC (Bld) 18.6 % 15.0 - 45.0 % [facility] MCH (RBC) [Entitic mass] 22.5 pg Low 26.0 - 34.0 pg [facility] MCHC (RBC) [Mass/Vol] 28.2 % Low 30.5 - 36.0 % [facility] MCV (RBC) [Entitic vol] 79.8 fL 77.0 - 99.0 fL [facility] Monocytes (Bld) [#/Vol] 0.6 10*3/uL 0.0 - 0.9 10*3/uL [facility] Monocytes/100 WBC (Bld) 7.7 % 5.0 - 13.0 % [facility] Neutrophils (Bld) [#/Vol] 5.4 10*3/uL 1.8 - 7.5 10*3/uL [facility] Neutrophils/100 WBC (Bld) 69.3 % 38.0 - 82.0 % [facility] Nucleated RBC/100 WBC (Bld) [Ratio] 0 % [facility] Platelet mean volume (Bld) [Entitic vol] 9.8 fL 9.0 - 12.7 fL [facility] Platelets (Bld) [#/Vol] 514 10*3/uL High 140 - 440 10*3/uL [facility] RBC (Bld) [#/Vol] 3.51 10*6/uL Low 3.80 - 5.20 10*6/uL [facility] WBC (Bld) [#/Vol] 7.8 10*3/uL 3.6 - 10.7 10*3/uL [facility] CBC WITH AUTO DIFFERENTIALon 06-15-2025 Basophils (Bld) [#/Vol] 0.1 10*3/uL Normal 0.0-0.[address] [facility] Comment on above: Performed By: #### L [id number] ####Kiln Mechanic: NADIA FRENCH ([id number])[facility] ([facility])[address] [place] [address] Basophils/100 WBC (Bld) 0.9 % Normal 0.0-2.0 [facility] Comment on above: Performed By: #### L [id number] ####Kiln Mechanic: NADIA FRENCH ([id number])[facility] ([facility])[address] [place] [address] Eosinophils (Bld) [#/Vol] 0.2 10*3/uL Normal 0.0-0.[address] [facility] Comment on above: Performed By: #### L [id number] ####Kiln Mechanic: NADIA FRENCH ([id number])[facility] ([facility])[address] [place] [address] Eosinophils/100 WBC (Bld) 3.1 % Normal 0.0-6.[address] [facility] Comment on above: Performed By: #### L [id number] ####Kiln Mechanic: NADIA FRENCH ([id number])[facility])[address] [place] [address] Erythrocyte distribution width (RBC) [Ratio] 26.4 % High 11.5-15.[address] [facility] Comment on above: Performed By: #### L [id number] ####Kiln Mechanic: NADIA [id number])[facility])[address] [place] [address] Hematocrit (Bld) [Volume fraction] 28.0 % Low 35.0-47.[address] [facility] Comment on above: Performed By: #### L [id number] ####Kiln Mechanic: NADIA FRENCH ([id number])[facility])[address] [place] [address] Hemoglobin (Bld) [Mass/Vol] 7.9 g/dL Low 11.7-16.[address] [facility] Comment on above: Performed By: #### L [id number] ####Kiln Mechanic: NADIA FRENCH ([id number])[facility])[address] [place] [address] IMMATURE GRANS % 0.4 % Normal 0.0-2.0 [facility] Comment on above: Performed By: #### L [id number] ####Kiln Mechanic: NADIA FRENCH ([id number])[facility])[address] [place] [address] IMMATURE GRANS ABSOLUTE 0.0 10*3/uL Normal <0.1 [facility] Comment on above: Performed By: #### L [id number] ####Kiln Mechanic: NADIA FRENCH ([id number])[facility])[address] [place] [address] Lymphocytes (Bld) [#/Vol] 1.5 10*3/uL Normal 1.0-4.[address] [facility] Comment on above: Performed By: #### L [id number] ####Kiln Mechanic: NADIA FRENCH ([id number])[facility])[address] [place] [address] Lymphocytes/100 WBC (Bld) 18.6 % Normal 15.0-45.[address] [facility] Comment on above: Performed By: #### L [id number] ####Kiln Mechanic: NADIA FRENCH ([id number])[facility])[address] [place] [address] MCH (RBC) [Entitic mass] 22.5 pg Low 26.0-34.[address] [facility] Comment on above: Performed By: #### L [id number] ####Kiln Mechanic: NADIA FRENCH ([id number])[facility])[address] [place] [address] MCHC 28.2 % Low 30.5-36.[address] [facility] Comment on above: Performed By: #### L [id number] ####Kiln Mechanic: NADIA FRENCH ([id number])[facility])[address] [place] [address] MCV (RBC) [Entitic vol] 79.8 fL Normal 77.0-99.0 [facility] Comment on above: Performed By: #### L [id number] ####Kiln Mechanic: NADIA FRENCH ([id number])[facility])[address] [place] [address] Monocytes (Bld) [#/Vol] 0.6 10*3/uL Normal 0.0-0.[address] [facility] Comment on above: Performed By: #### L [id number] ####Kiln Mechanic: NADIA FRENCH ([id number])[facility])[address] [place] [address] Monocytes/100 WBC (Bld) 7.7 % Normal 5.0-13.0 [facility] Comment on above: Performed By: #### L [id number] ####Kiln Mechanic: NADIA FRENCH ([id number])[facility])[address] [place] [address] NEUTROPHILS ABSOLUTE 5.4 10*3/uL Normal 1.8-7.5 [facility] Comment on above: Performed By: #### L [id number] ####Kiln Mechanic: NADIA FRENCH ([id number])[facility])[address] [place] [address] Neutrophils/100 WBC (Bld) 69.3 % Normal 38.0-82.[address] [facility] Comment on above: Performed By: #### L [id number] ####Kiln Mechanic: NADIA FRENCH ([id number])[facility] ([facility])[address] [place] [address] NRBC 0.0 /100 WBCs Normal 0.0-2.0 [facility] Comment on above: Performed By: #### L [id number] ####Kiln Mechanic: NADIA FRENCH ([id number])[facility] ([facility])[address] [place] [address] Platelet mean volume (Bld) [Entitic vol] 9.8 fL Normal 9.0-12.7 [facility] Comment on above: Performed By: #### L [id number] ####Kiln Mechanic: NADIA FRENCH ([id number])[facility])[address] [place] [address] Platelets (Bld) [#/Vol] 514 10*3/uL High 140-[address] [facility] Comment on above: Performed By: #### L [id number] ####Kiln Mechanic: NADIA FRENCH ([id number])[facility] ([facility])[address] [place] [address] RBC (Bld) [#/Vol] 3.51 10*6/uL Low 3.80-5.[address] [facility] Comment on above: Performed By: #### L [id number] ####Kiln Mechanic: NADIA FRENCH ([id number])[facility])[address] [place] [address] WBC (Bld) [#/Vol] 7.8 10*3/uL Normal 3.6-10.[address] [facility] Comment on above: Performed By: #### L [id number] ####Kiln Mechanic: NADIA FRENCH ([id number])[facility])[address] [place] [address] COMPREHENSIVE METABOLIC PANE David 06-15-2025 Albumin [Mass/Vol] 1.9 g/dL Low 3.4-4.[address] [facility] Comment on above: Performed By: #### L [id number] ####Kiln Mechanic: NADIA FRENCH ([id number])[facility])[address] [place] [address] ALP [Catalytic activity/Vol] 83 U/L Normal 40-[address] [facility] Comment on above: Performed By: #### L [id number] ####Kiln Mechanic: NADIA FRENCH ([id number])[facility])[address] [place] [address] [place] ALT [Catalytic activity/Vol] 16 U/L Normal <[address] [facility] Comment on above: Performed By: #### L [id number] ####Kiln Mechanic: NADIA FRENCH ([id number])[facility])[address] [place] [address] Anion gap [Moles/Vol] 7 mmol/L Normal 3-13 [facility] Comment on above: Performed By: #### L [id number] ####Kiln Mechanic: NADIA FRENCH ([id number])[facility])[address] [place] [address] AST [Catalytic activity/Vol] 28 U/L Normal <[address] [facility] Comment on above: Performed By: #### L [id number] ####Kiln Mechanic: NADIA FRENCH ([id number])[facility])[address] [place] [address] Bilirubin [Mass/Vol] 0.4 mg/dL Normal <1.2 [facility] Comment on above: Performed By: #### L [id number] ####Kiln Mechanic: NADIA FRENCH ([id number])[facility])[address] [place] [address] Calcium [Mass/Vol] 8.1 mg/dL Low 8.8-10.[address] [facility] Comment on above: Performed By: #### L [id number] ####Kiln Mechanic: NADIA FRENCH ([id number])[facility])[address] [place] [address] [place] Chloride [Moles/Vol] 103 mmol/L Normal 98-107 [facility] Comment on above: Performed By: #### L [id number] ####Kiln Mechanic: NADIA FRENCH ([id number])[facility])[address] [place] [address] CO2 [Moles/Vol] 26 mmol/L Normal 23-31 [facility] Comment on above: Performed By: #### L [id number] ####Kiln Mechanic: NADIA FRENCH ([id number])[facility])[address] [place] [address] Creatinine [Mass/Vol] 1.06 mg/dL Normal 0.57-1.11 [facility] Comment on above: Performed By: #### L [id number] ####Kiln Mechanic: NADIA FRENCH ([id number])[facility])[address] [place] [address] GLOMERULAR FILTRATION RATE ML/MIN/1.73 SQ M.PREDICTED 59.9 mL/min/1.73m*2 Low >60.0 [facility] Comment on above: Result Comment: Calc ulation based on the Chronic Kidney Disease Epidemiology Collaboration (CKD-EPI) equation refit without adjustment for race Performed By: #### L [id number] ####Kiln Mechanic: NADIA FRENCH ([id number])[facility])[address] [place] [address] Glucose [Mass/Vol] 80 mg/dL Low 82-115 [facility] Comment on above: Performed By: #### L [id number] ####Kiln Mechanic: NADIA FRENCH ([id number])[facility])[address] [place] [address] Potassium [Moles/Vol] 3.7 mmol/L Normal 3.5-5.1 [facility] Comment on above: Result Comment: [facility] potassium values may be up to 0.5 mmol/L lower than serum values. Performed By: #### L [id number] ####Kiln Mechanic: NADIA FRENCH ([id number])[address] Protein [Mass/Vol] 6.1 g/dL Low 6.4-8.3 [facility] Comment on above: Performed By: #### L [id number] ####Kiln Mechanic: NADIA FRENCH ([id number])[facility])[address] [place] [address] Sodium [Moles/Vol] 136 mmol/L Normal 136-145 [facility] Comment on above: Performed By: #### L [id number] ####Kiln Mechanic: NADIA FRENCH ([id number])[facility])[address] [place] [address] Urea nitrogen [Mass/Vol] 29 mg/dL High 9-23 [facility] Comment on above: Performed By: #### L [id number] ####Kiln Mechanic: NADIA FRENCH ([id number])[facility])[address] [place] [address] Comprehensive metabolic 1998 panelon 06-15-2025 Albumin [Mass/Vol] 1.9 g/dL Low 3.4 - 4.8 g/dL [facility] ALP [Catalytic activity/Vol] 83 U/L 40 - 150 U/L [facility] ALT [Catalytic activity/Vol] 16 U[facility]/L [facility] Anion gap [Moles/Vol] 7 mmol/L 3 - 13 mmol/L [facility] AST [Catalytic activity/Vol] 28 U/L [facility] - [facility] U/L [facility] Bilirubin [Mass/Vol] 0.4 mg/dL NINF - 1.2 mg/dL [facility] Calcium [Mass/Vol] 8.1 mg/dL Low 8.8 - 10. 0 mg/dL [facility] Chloride [Moles/Vol] 103 mmol/L 98 - 10 7 mmol/L [facility] CO2 [Moles/Vol] 26 mmol/L 23 - 31 mmol/L [facility] Creatinine [Mass/Vol] 1.06 mg/dL 0.57 - 1.11 mg/dL [facility] GFR/1.73 sq M.predicted (S/P/Bld) [Vol rate/Area] 59.9 mL/min Low - PINF [facility] Glucose [Mass/Vol] 80 mg/dL Low 82 - 115 mg/dL [facility] Interpretation and review of laboratory results Abnormal [facility] Potassium [Moles/Vol] 3.7 mmol/L 3.5 - 5.1 mmol/L [facility] Protein [Mass/Vol] 6.1 g/dL Low 6.4 - 8.3 g/dL [facility] Sodium [Moles/Vol] 136 mmol/L 136 - 145 mmol/L [facility] Urea nitrogen [Mass/Vol] 29 mg/dL High 9 - 23 mg/dL [facility] Progress Noteon 06-15-2025 Progress Note Normal [facility] Progress Note Normal [facility] Progress Note Normal [facility] [id number] 06-14-2025 [id number] Normal [facility] CBC W Auto Differential pane l (Bld)Ordered By: Tony Bernard on 06-14-2025 Basophils (Bld) [#/Vol] 0.1 10*3/uL 0.0 - 0.2 10*3/uL [facility] Basophils/100 WBC (Bld) 0.9 % 0.0 - 2.0 % [facility] Eosinophils (Bld) [#/Vol] 0.2 10*3/uL 0.0 - 0.5 10*3/uL [facility] Eosinophils/100 WBC (Bld) 2.6 % 0.0 - 6.0 % [facility] Erythrocyte distribution width (RBC) [Ratio] 26.3 % High 11.5 - 15.0 % [facility] Hematocrit (Bld) [Volume fraction] 27.1 % Low 35.0 - 47.0 % [facility] Hemoglobin (Bld) [Mass/Vol] 7.6 g/dL Low 11.7 - 16.0 g/dL [facility] Immature granulocytes (Bld) [#/Vol] 0 10*3/uL NINF - 0.1 10*3/uL [facility] Immature granulocytes/100 WBC (Bld) 0.5 % 0.0 - 2.0 % [facility] Interpretation and review of laboratory results Abnormal [facility] Lymphocytes (Bld) [#/Vol] 1.9 10*3/uL 1.0 - 4.3 10*3/uL [facility] Lymphocytes/100 WBC (Bld) 22.8 % 15.0 - 45.0 % [facility] MCH (RBC) [Entitic mass] 22.5 pg Low 26.0 - 34.0 pg [facility] MCHC (RBC) [Mass/Vol] 28 % Low 30.5 - 36.0 % [facility] MCV (RBC) [Entitic vol] 80.2 fL 77.0 - 99.0 fL [facility] Monocytes (Bld) [#/Vol] 0.7 10*3/uL 0.0 - 0.9 10*3/uL [facility] Monocytes/100 WBC (Bld) 8 % 5.0 - 13.0 % [facility] Neutrophils (Bld) [#/Vol] 5.4 10*3/uL 1.8 - 7.5 10*3/uL [facility] Neutrophils/100 WBC (Bld) 65.2 % 38.0 - 82.0 % [facility] Nucleated RBC/100 WBC (Bld) [Ratio] 0 % [facility] Platelet mean volume (Bld) [Entitic vol] 9.8 fL 9.0 - 12.7 fL [facility] Platelets (Bld) [#/Vol] 460 10*3/uL High 140 - 440 10*3/uL [facility] RBC (Bld) [#/Vol] 3.38 10*6/uL Low 3.80 - 5.20 10*6/uL [facility] WBC (Bld) [#/Vol] 8.2 10*3/uL 3.6 - 10.7 10*3/uL [facility] CBC WITH AUTO DIFFERENTIALon 06-14-2025 Basophils (Bld) [#/Vol] 0.1 10*3/uL Normal 0.0-0.2 [facility] Comment on above: Performed By: #### L [id number] ####Kiln Mechanic: NADIA FRENCH ([id number])[facility])[address] [place] [address] Basophils/100 WBC (Bld) 0.9 % Normal 0.0-2.0 [facility] Comment on above: Performed By: #### L [id number] ####Kiln Mechanic: NADIA FRENCH ([id number])[facility])[address] [place] [address] Eosinophils (Bld) [#/Vol] 0.2 10*3/uL Normal 0.0-0.[address] [facility] Comment on above: Performed By: #### L [id number] ####Kiln Mechanic: NADIA FRENCH ([id number])[facility])[address] [place] [address] Eosinophils/100 WBC (Bld) 2.6 % Normal 0.0-6.[address] [facility] Comment on above: Performed By: #### L [id number] ####Kiln Mechanic: NADIA FRENCH ([id number])[address] Erythrocyte distribution width (RBC) [Ratio] 26.3 % High 11.5-15.[address] [facility] Comment on above: Performed By: #### L [id number] ####Kiln Mechanic: NADIA FRENCH ([id number])[address] Hematocrit (Bld) [Volume fraction] 27.1 % Low 35.0-47.[address] [facility] Comment on above: Performed By: #### L [id number] ####Kiln Mechanic: NADIA FRENCH ([id number])[address] Hemoglobin (Bld) [Mass/Vol] 7.6 g/dL Low 11.7-16.[address] [facility] Comment on above: Performed By: #### L [id number] ####Kiln Mechanic: NADIA FRENCH ([id number])[facility])[address] [place] [address] IMMATURE GRANS % 0.5 % Normal 0.0-2.[address] [facility] Comment on above: Performed By: #### L [id number] ####Kiln Mechanic: NADIA FRENCH ([id number])[address] IMMATURE GRANS ABSOLUTE 0.0 10*3/uL Normal <0.[address] [facility] Comment on above: Performed By: #### L [id number] ####Kiln Mechanic: NADIA FRENCH ([id number])[facility])[address] [place] [address] Lymphocytes (Bld) [#/Vol] 1.9 10*3/uL Normal 1.0-4.[address] [facility] Comment on above: Performed By: #### L [id number] ####Kiln Mechanic: NADIA FRENCH ([id number])[facility])[address] [place] [address] Lymphocytes/100 WBC (Bld) 22.8 % Normal 15.0-45.[address] [facility] Comment on above: Performed By: #### L [id number] ####Kiln Mechanic: NADIA FRENCH ([id number])[facility])[address] [place] [address] MCH (RBC) [Entitic mass] 22.5 pg Low 26.0-34.[address] [facility] Comment on above: Performed By: #### L [id number] ####Kiln Mechanic: NADIA FRENCH ([id number])[facility])[address] [place] [address] MCHC 28.0 % Low 30.5-36.[address] [facility] Comment on above: Performed By: #### L [id number] ####Kiln Mechanic: NADIA FRENCH ([id number])[facility])[address] [place] [address] MCV (RBC) [Entitic vol] 80.2 fL Normal 77.0-99.0 [facility] Comment on above: Performed By: #### L [id number] ####Kiln Mechanic: NADIA FRENCH ([id number])[facility])[address] [place] [address] Monocytes (Bld) [#/Vol] 0.7 10*3/uL Normal 0.0-0.[address] [facility] Comment on above: Performed By: #### L [id number] ####Kiln Mechanic: NADIA FRNECH ([id number])[facility] ([facility])[address] [place] [address] Monocytes/100 WBC (Bld) 8.0 % Normal 5.0-13.0 [facility] Comment on above: Performed By: #### L [id number] ####Kiln Mechanic: NADIA FRENCH ([id number])[facility] [place] [address] NEUTROPHILS ABSOLUTE 5.4 10*3/uL Normal 1.8-7.5 [facility] Comment on above: Performed By: #### L [id number] ####Kiln Mechanic: NADIA FRENCH ([id number])[facility] ([facility])[address] [place] [address] Neutrophils/100 WBC (Bld) 65.2 % Normal 38.0-82.0 [facility] Comment on above: Performed By: #### L [id number] ####Kiln Mechanic: NADIA FRENCH ([id number])[facility] ([facility])[address] [place] [address] NRBC 0.0 /100 WBCs Normal 0.0-2.0 [facility] Comment on above: Performed By: #### L [id number] ####Kiln Mechanic: NADIA FRENCH ([id number])[facility] ([facility])[address] [place] [address] Platelet mean volume (Bld) [Entitic vol] 9.8 fL Normal 9.0-12.7 [facility] Comment on above: Performed By: #### L [id number] ####Kiln Mechanic: NADIA FRENCH ([id number])[facility] ([facility])[address] [place] [address] [place] Platelets (Bld) [#/Vol] 460 10*3/uL High 140-[address] [facility] Comment on above: Performed By: #### L [id number] ####Kiln Mechanic: NADIA FRENCH ([id number])[facility] ([facility])[address] [place] [address] [place] RBC (Bld) [#/Vol] 3.38 10*6/uL Low 3.80-5.[address] [facility] Comment on above: Performed By: #### L [id number] ####Kiln Mechanic: NADIA FRENCH ([id number])[facility] ([facility])[address] [place] [address] WBC (Bld) [#/Vol] 8.2 10*3/uL Normal 3.6-10.[address] [facility] Comment on above: Performed By: #### L [id number] ####Kiln Mechanic: NADIA FRENCH ([id number])[facility] ([facility])[address] [place] [address] COMPREHENSIVE METABOLIC PANE David 06-14-2025 Albumin [Mass/Vol] 1.8 g/dL Low 3.4-4.[address] [facility] Comment on above: Performed By: #### L [id number] ####Kiln Mechanic: NADIA FRENCH ([id number])[facility] ([facility])[address] [place] [address] ALP [Catalytic activity/Vol] 81 U/L Normal 40-[address] [facility] Comment on above: Performed By: #### L [id number] ####Kiln Mechanic: NADIA FRENCH ([id number])[facility])[address] [place] [address] ALT [Catalytic activity/Vol] 14 U/L Normal <[address] [facility] Comment on above: Performed By: #### L [id number] ####Kiln Mechanic: NADIA FRENCH ([id number])[facility])[address] [place] [address] Anion gap [Moles/Vol] 6 mmol/L Normal 3-13 [facility] Comment on above: Performed By: #### L [id number] ####Kiln Mechanic: NADIA FRENCH ([id number])[facility])[address] [place] [address] AST [Catalytic activity/Vol] 26 U/L Normal <[address] [facility] Comment on above: Performed By: #### L [id number] ####Kiln Mechanic: NADIA FRENCH ([id number])[facility] ([facility])[address] [place] [address] Bilirubin [Mass/Vol] 0.4 mg/dL Normal <1.2 [facility] Comment on above: Performed By: #### L [id number] ####Kiln Mechanic: NADIA FRENCH ([id number])[facility] ([facility])[address] [place] [address] Calcium [Mass/Vol] 7.9 mg/dL Low 8.8-10.0 [facility] Comment on above: Performed By: #### L [id number] ####Kiln Mechanic: NADIA FRENCH ([id number])[facility] ([facility])[address] [place] [address] Chloride [Moles/Vol] 104 mmol/L Normal 98-107 [facility] Comment on above: Performed By: #### L [id number] ####Kiln Mechanic: NADIA FRENCH ([id number])[facility] ([facility])[address] [place] [address] CO2 [Moles/Vol] 27 mmol/L Normal 23-31 [facility] Comment on above: Performed By: #### L [id number] ####Kiln Mechanic: NADIA FRENCH ([id number])[facility] ([facility])[address] [place] [address] Creatinine [Mass/Vol] 1.34 mg/dL High 0.57-1.11 [facility] Comment on above: Performed By: #### L [id number] ####Kiln Mechanic: NADIA FRENCH ([id number])[facility] ([facility])[address] [place] [address] [place] GLOMERULAR FILTRATION RATE ML/MIN/1.73 SQ M.PREDICTED 45.2 mL/min/1.73m*2 Low >60.0 [facility] Comment on above: Result Comment: Calc ulation based on the Chronic Kidney Disease Epidemiology Collaboration (CKD-EPI) equation refit without adjustment for race Performed By: #### L [id number] ####Kiln Mechanic: NADIA FRENCH ([id number])[facility] [place] [address] [place] Glucose [Mass/Vol] 87 mg/dL Normal 82-115 [facility] Comment on above: Performed By: #### L [id number] ####Kiln Mechanic: NADIA FRENCH ([id number])[facility] ([facility])[address] [place] [address] Potassium [Moles/Vol] 3.8 mmol/L Normal 3.5-5.1 [facility] Comment on above: Result Comment: [facility] potassium values may be up to 0.5 mmol/L lower than serum values. Performed By: #### L [id number] ####Kiln Mechanic: NADIA FRENCH ([id number])[facility] ([facility])[address] [place] [address] Protein [Mass/Vol] 5.9 g/dL Low 6.4-8.3 [facility] Comment on above: Performed By: #### L [id number] ####Kiln Mechanic: NADIA FRENCH ([id number])[facility] ([facility])[address] [place] [address] Sodium [Moles/Vol] 137 mmol/L Normal 136-145 [facility] Comment on above: Performed By: #### L [id number] ####Kiln Mechanic: NADIA FRENCH ([id number])[facility] ([facility])[address] [place] [address] [place] Urea nitrogen [Mass/Vol] 31 mg/dL High 9-23 [facility] Comment on above: Performed By: #### L [id number] ####Kiln Mechanic: NADIA FRENCH ([id number])[facility] ([facility])[address] [place] [address] Comprehensive metabolic 1998 panelon 06-14-2025 Albumin [Mass/Vol] 1.8 g/dL Low 3.4 - 4.8 g/dL [facility] ALP [Catalytic activity/Vol] 81 U/L 40 - 150 U/L [facility] ALT [Catalytic activity/Vol] 14 U/L NINF - 30 U/L [facility] Anion gap [Moles/Vol] 6 mmol/L 3 - 13 mmol/L [facility] AST [Catalytic activity/Vol] 26 U/L NINF - 34 U/L [facility] Bilirubin [Mass/Vol] 0.4 mg/dL NINF - 1.2 mg/dL [facility] Calcium [Mass/Vol] 7.9 mg/dL Low 8.8 - 10. 0 mg/dL [facility] Chloride [Moles/Vol] 104 mmol/L 98 - 10 7 mmol/L [facility] CO2 [Moles/Vol] 27 mmol/L 23 - 31 mmol/L [facility] Creatinine [Mass/Vol] 1.34 mg/dL High 0.57 - 1.11 mg/dL [facility] GFR/1.73 sq M.predicted (S/P/Bld) [Vol rate/Area] 45.2 mL/min Low - PINF [facility] Glucose [Mass/Vol] 87 mg/dL 82 - 115 mg/dL [facility] Interpretation and review of laboratory results Abnormal [facility] Potassium [Moles/Vol] 3.8 mmol/L 3.5 - 5.1 mmol/L [facility] Protein [Mass/Vol] 5.9 g/dL Low 6.4 - 8.3 g/dL [facility] Sodium [Moles/Vol] 137 mmol/L 136 - 145 mmol/L [facility] Urea nitrogen [Mass/Vol] 31 mg/dL High 9 - 23 mg/dL [facility] Nursing Noteon 06-14-2025 Nursing Note Normal [facility] Progress Noteon 06-14-2025 Progress Note Normal [facility] Progress Note Normal [facility] Progress Note Normal [facility] Progress Note Normal [facility] [id number] 06-13-2025 [id number] Normal [facility] CBC WITH AUTO DIFFERENTIALon 06-13-2025 Basophils (Bld) [#/Vol] 0.1 10*3/uL Normal 0.0-0.2 [facility] Comment on above: Performed By: #### L [id number] ####Kiln Mechanic: NADIA FRENCH ([id number])[facility] ([address] Basophils/100 WBC (Bld) 0.7 % Normal 0.0-2.0 [facility] Comment on above: Performed By: #### L [id number] ####Kiln Mechanic: NADIA FRENCH ([id number])[facility])[address] [place] [address] Eosinophils (Bld) [#/Vol] 0.2 10*3/uL Normal 0.0-0.[address] [facility] Comment on above: Performed By: #### L [id number] ####Kiln Mechanic: NADIA FRENCH ([id number])[facility])[address] [place] [address] Eosinophils/100 WBC (Bld) 2.5 % Normal 0.0-6.[address] [facility] Comment on above: Performed By: #### L [id number] ####Kiln Mechanic: NADIA FRENCH ([id number])[facility])[address] [place] [address] Erythrocyte distribution width (RBC) [Ratio] 27.0 % High 11.5-15.[address] [facility] Comment on above: Performed By: #### L [id number] ####Kiln Mechanic: NADIA FRENCH ([id number])[facility])[address] [place] [address] Hematocrit (Bld) [Volume fraction] 27.2 % Low 35.0-47.[address] [facility] Comment on above: Performed By: #### L [id number] ####Kiln Mechanic: NADIA FRENCH ([id number])[facility])[address] [place] [address] Hemoglobin (Bld) [Mass/Vol] 7.8 g/dL Low 11.7-16.[address] [facility] Comment on above: Performed By: #### L [id number] ####Kiln Mechanic: NADIA FRENCH ([id number])[facility])[address] [place] [address] IMMATURE GRANS % 0.7 % Normal 0.0-2.[address] [facility] Comment on above: Performed By: #### L [id number] ####Kiln Mechanic: NADIA FRENCH ([id number])[facility])[address] [place] [address] IMMATURE GRANS ABSOLUTE 0.1 10*3/uL High <0.[address] [facility] Comment on above: Performed By: #### L [id number] ####Kiln Mechanic: NADIA FRENCH ([id number])[facility])[address] [place] [address] Lymphocytes (Bld) [#/Vol] 1.3 10*3/uL Normal 1.0-4.[address] [facility] Comment on above: Performed By: #### L [id number] ####Kiln Mechanic: NADIA FRENCH ([id number])[address] Lymphocytes/100 WBC (Bld) 17.6 % Normal 15.0-45.[address] [facility] Comment on above: Performed By: #### L [id number] ####Kiln Mechanic: NADIA FRENCH ([id number])[facility])[address] [place] [address] MCH (RBC) [Entitic mass] 22.8 pg Low 26.0-34.[address] [facility] Comment on above: Performed By: #### L [id number] ####Kiln Mechanic: NADIA FRENCH ([id number])[facility])[address] [place] [address] MCHC 28.7 % Low 30.5-36.[address] [facility] Comment on above: Performed By: #### L [id number] ####Kiln Mechanic: NADIA FRENCH ([id number])[facility])[address] [place] [address] MCV (RBC) [Entitic vol] 79.5 fL Normal 77.0-99.0 [facility] Comment on above: Performed By: #### L [id number] ####Kiln Mechanic: NADIA FRENCH ([id number])[facility])[address] [place] [address] Monocytes (Bld) [#/Vol] 0.6 10*3/uL Normal 0.0-0.9 [facility] Comment on above: Performed By: #### L [id number] ####Kiln Mechanic: NADIA FRENCH ([id number])[facility] ([facility])[address] [place] [address] Monocytes/100 WBC (Bld) 7.6 % Normal 5.0-13.0 [facility] Comment on above: Performed By: #### L [id number] ####Kiln Mechanic: NADIA FRENCH ([id number])[facility] ([facility])[address] [place] [address] NEUTROPHILS ABSOLUTE 5.4 10*3/uL Normal 1.8-7.5 [facility] Comment on above: Performed By: #### L [id number] ####Kiln Mechanic: NADIA FRENCH ([id number])[facility] ([facility])[address] [place] [address] Neutrophils/100 WBC (Bld) 70.9 % Normal 38.0-82.[address] [facility] Comment on above: Performed By: #### L [id number] ####Kiln Mechanic: NADIA FRENCH ([id number])[facility] ([facility])[address] [place] [address] NRBC 0.0 /100 WBCs Normal 0.0-2.0 [facility] Comment on above: Performed By: #### L [id number] ####Kiln Mechanic: NADIA FRENCH ([id number])[facility] ([facility])[address] [place] [address] [place] Platelet mean volume (Bld) [Entitic vol] 9.4 fL Normal 9.0-12.[address] [facility] Comment on above: Performed By: #### L [id number] ####Kiln Mechanic: NADIA FRENCH ([id number])[facility] ([facility])[address] [place] [address] [place] Platelets (Bld) [#/Vol] 466 10*3/uL High 140-[address] [facility] Comment on above: Performed By: #### L [id number] ####Kiln Mechanic: NADIA FRENCH ([id number])[facility])[address] [place] [address] RBC (Bld) [#/Vol] 3.42 10*6/uL Low 3.80-5.[address] [facility] Comment on above: Performed By: #### L [id number] ####Kiln Mechanic: NADIA FRENCH ([id number])[facility])[address] [place] [address] WBC (Bld) [#/Vol] 7.6 10*3/uL Normal 3.6-10.7 [facility] Comment on above: Performed By: #### L [id number] ####Kiln Mechanic: NADIA FRENCH ([id number])[facility])[address] [place] [address] COMPREHENSIVE METABOLIC PANE David 06-13-2025 Albumin [Mass/Vol] 1.8 g/dL Low 3.4-4.[address] [facility] Comment on above: Performed By: #### L [id number] ####Kiln Mechanic: NADIA FRENCH ([id number])[facility])[address] [place] [address] ALP [Catalytic activity/Vol] 81 U/L Normal 40-150 [facility] Comment on above: Performed By: #### L [id number] ####Kiln Mechanic: NADIA FRENCH ([id number])[facility])[address] [place] [address] ALT [Catalytic activity/Vol] 15 U/L Normal <30 [facility] Comment on above: Performed By: #### L [id number] ####Kiln Mechanic: NADIA FRENCH ([id number])[facility])[address] [place] [address] Anion gap [Moles/Vol] 4 mmol/L Normal 3-13 [facility] Comment on above: Performed By: #### L [id number] ####Kiln Mechanic: NADIA FRENCH ([id number])[facility] [place] [address] [place] AST [Catalytic activity/Vol] 28 U/L Normal <34 [facility] Comment on above: Performed By: #### L [id number] ####Kiln Mechanic: NADIA FRENCH ([id number])[facility] ([facility])[address] [place] [address] [place] Bilirubin [Mass/Vol] 0.4 mg/dL Normal <1.2 [facility] Comment on above: Performed By: #### L [id number] ####Kiln Mechanic: NADIA FRENCH ([id number])[facility] ([facility])[address] [place] [address] Calcium [Mass/Vol] 8.1 mg/dL Low 8.8-10.0 [facility] Comment on above: Performed By: #### L [id number] ####Kiln Mechanic: NADIA FRENCH ([id number])[facility] [place] [address] [place] Chloride [Moles/Vol] 105 mmol/L Normal 98-107 [facility] Comment on above: Performed By: #### L [id number] ####Kiln Mechanic: NADIA FRENCH ([id number])[facility] ([facility])[address] [place] [address] [place] CO2 [Moles/Vol] 28 mmol/L Normal 23-31 [facility] Comment on above: Performed By: #### L [id number] ####Kiln Mechanic: NADIA FRENCH ([id number])[facility] ([facility])[address] [place] [address] [place] Creatinine [Mass/Vol] 1.16 mg/dL High 0.57-1.11 [facility] Comment on above: Performed By: #### L [id number] ####Kiln Mechanic: NADIA FRENCH ([id number])[facility] ([facility])[address] [place] [address] [place] GLOMERULAR FILTRATION RATE ML/MIN/1.73 SQ M.PREDICTED 53.7 mL/min/1.73m*2 Low >60.0 [facility] Comment on above: Result Comment: Calc ulation based on the Chronic Kidney Disease Epidemiology Collaboration (CKD-EPI) equation refit without adjustment for race Performed By: #### L [id number] ####Kiln Mechanic: NADIA FRENCH ([id number])[facility])[address] [place] [address] Glucose [Mass/Vol] 92 mg/dL Normal 82-115 [facility] Comment on above: Performed By: #### L [id number] ####Kiln Mechanic: NADIA FRENCH ([id number])[facility])[address] [place] [address] Potassium [Moles/Vol] 4.0 mmol/L Normal 3.5-5.1 [facility] Comment on above: Result Comment: [facility] potassium values may be up to 0.5 mmol/L lower than serum values. Performed By: #### L [id number] ####Kiln Mechanic: NADIA FRENCH ([id number])[facility])[address] [place] [address] Protein [Mass/Vol] 6.1 g/dL Low 6.4-8.3 [facility] Comment on above: Performed By: #### L [id number] ####Kiln Mechanic: NADIA FRENCH ([id number])[facility])[address] [place] [address] Sodium [Moles/Vol] 137 mmol/L Normal 136-145 [facility] Comment on above: Performed By: #### L [id number] ####Kiln Mechanic: NADIA FRENCH ([id number])[facility])[address] [place] [address] [place] Urea nitrogen [Mass/Vol] 30 mg/dL High 9-23 [facility] Comment on above: Performed By: #### L [id number] ####Kiln Mechanic: NADIA FRENCH ([id number])[facility])[address] [place] [address] Comprehensive metabolic 1998 panelon 09-17-2025 Albumin [Mass/Vol] 1.8 g/dL Low 3.4 - 4.8 g/dL [facility] ALP [Catalytic activity/Vol] 81 U/L 40 - 150 U/L [facility] ALT [Catalytic activity/Vol] 15 U/L NINF - 30 U/L [facility] Anion gap [Moles/Vol] 4 mmol/L 3 - 13 mmol/L [facility] AST [Catalytic activity/Vol] 28 U/L NINF - 34 U/L [facility] Bilirubin [Mass/Vol] 0.4 mg/dL NINF - 1.2 mg/dL [facility] Calcium [Mass/Vol] 8.1 mg/dL Low 8.8 - 10. 0 mg/dL [facility] Chloride [Moles/Vol] 105 mmol/L 98 - 10 7 mmol/L [facility] CO2 [Moles/Vol] 28 mmol/L 23 - 31 mmol/L [facility] Creatinine [Mass/Vol] 1.16 mg/dL High 0.57 - 1.11 mg/dL [facility] Glucose [Mass/Vol] 92 mg/dL 82 - 115 mg/dL [facility] Potassium [Moles/Vol] 4 mmol/L 3.5 - 5.1 mmol/L [facility] Protein [Mass/Vol] 6.1 g/dL Low 6.4 - 8.3 g/dL [facility] Sodium [Moles/Vol] 137 mmol/L 136 - 145 mmol/L [facility] Consulton 06-13-2025 Consult Normal [facility] FL MODIFIED BARIUM WITH VIDE O AND SPEECHon 06-13-2025 [place] MODIFIED BARIUM WITH VIDEO AND SPEECH Normal [facility] Progress Noteon 06-13-2025 Progress Note Nutrition rescreen completed. Patient referred to the Dietitian due to a pressure injury with wound care following. Nayely Monsivais, [place] Normal [facility] Progress Note Normal [facility] Progress Note Normal [facility] Progress Note Normal [facility] Progress Note Normal [facility] RF videography Hypopharynx a nd Esophagus Views for swallowing function W speech and W barium contrast Jonas 06-13-2025 [facility] Radiology Study observation (narrative) [facility] [id number] 06-12-2025 [id number] Normal [facility] [id number] Normal [facility] [id number] Normal [facility] BLOOD TYPE AND SCREEN GELon 06-12-2025 ABO GROUPING A Normal [facility] Comment on above: Performed By: #### L [id number] ####Kiln Mechanic: NADIA FRENCH ([id number])[facility] ([facility])[address] [place] [address] [facility] RH TYPE IN BLOOD Positive Normal [facility] Comment on above: Performed By: #### L [id number] ####Kiln Mechanic: NADIA FRENCH ([id number])[facility] ([facility])[address] [place] [address] [facility] Basic Metabolic Profile (BMP )on 06-12-2025 BUN Normal 4-19 [facility] Comment on above: Result Comment: Canc elled via OM: Order cancelled - Patient discharged Performed By: #### L 500.2500, L100.0100 ####[facility] [address] [place], [address] BUN/CRE Normal 10-20 [facility] Comment on above: Result Comment: Canc elled via OM: Order cancelled - Patient discharged Performed By: #### L 500.2500, L100.0100 ####[facility] [address] [place], [address] Calcium Normal 7.6-11.0 [facility] Comment on above: Result Comment: Canc elled via OM: Order cancelled - Patient discharged Performed By: #### L 500.2500, L100.0100 ####[facility] [address] [place], [address] CL Normal 98-108 [facility] Comment on above: Result Comment: Canc elled via OM: Order cancelled - Patient discharged Performed By: #### L 500.2500, L100.0100 ####[facility] [address] [place], [address] CO2 Normal 21.0-32.0 [facility] Comment on above: Result Comment: Canc elled via OM: Order cancelled - Patient discharged Performed By: #### L 500.2500, L100.0100 ####[facility] [address] [place], [address] CREAT,SERUM Normal 0.70-1.20 [facility] Comment on above: Result Comment: Canc elled via OM: Order cancelled - Patient discharged Performed By: #### L 500.2500, L100.0100 ####[facility] [address] [place], [address] eGFR Normal >60 [facility] Comment on above: Result Comment: Canc elled via OM: Order cancelled - Patient discharged Performed By: #### L 500.2500, L100.0100 ####[facility] [address] [place], [address] GAP Normal 5-15 [facility] Comment on above: Result Comment: Canc elled via OM: Order cancelled - Patient discharged Performed By: #### L 500.2500, L100.0100 ####[facility] [address] [place], [address] GLU Normal 70-99 [facility] Comment on above: Result Comment: Canc elled via OM: Order cancelled - Patient discharged Performed By: #### L 500.2500, L100.0100 ####[facility] [address] [place], [address] Potassium Normal 3.3-5.1 [facility] Comment on above: Result Comment: Canc elled via OM: Order cancelled - Patient discharged Performed By: #### L 500.2500, L100.0100 ####[facility] [address] [place], [address] Basic Metabolic Profile (BMP) Normal 133-145 [facility] Comment on above: Result Comment: Canc elled via OM: Order cancelled - Patient discharged Performed By: #### L 500.2500, L100.0100 ####[facility] [address] [place], [address] CBC W/Diff, Automatedon - Absolute Neut Normal 2.0-7.7 [facility] Comment on above: Result Comment: Canc elled via OM: Order cancelled - Patient discharged Performed By: #### L 500.2500, L100.0100 ####[facility] [address] [place], [address] HCT Normal 37-47 [facility] Comment on above: Result Comment: Canc elled via OM: Order cancelled - Patient discharged Performed By: #### L 500.2500, L100.0100 ####[facility] [address] [place], [address] HGB Normal 12.0-15.0 [facility] Comment on above: Result Comment: Canc elled via OM: Order cancelled - Patient discharged Performed By: #### L 500.2500, L100.0100 ####[facility] [address] [place], [address] MCH Normal 27.0-32.0 [facility] Comment on above: Result Comment: Canc elled via OM: Order cancelled - Patient discharged Performed By: #### L 500.2500, L100.0100 ####[facility] [address] [place], [address] MCHC Normal 32-36 [facility] Comment on above: Result Comment: Canc elled via OM: Order cancelled - Patient discharged Performed By: #### L 500.2500, L100.0100 ####[facility] [address] [place], [address] MCV Normal 81-99 [facility] Comment on above: Result Comment: Canc elled via OM: Order cancelled - Patient discharged Performed By: #### L 500.2500, L100.0100 ####[facility] [address] [place], [address] NEUT% Normal 47-70 [facility] Comment on above: Result Comment: Canc elled via OM: Order cancelled - Patient discharged Performed By: #### L 500.2500, L100.0100 ####[facility] [address] [place], [address] PLT Normal 150-450 [facility] Comment on above: Result Comment: Canc elled via OM: Order cancelled - Patient discharged Performed By: #### L 500.2500, L100.0100 ####[facility] [address] [place], [address] RBC Normal 4.2-5.4 [facility] Comment on above: Result Comment: Canc elled via OM: Order cancelled - Patient discharged Performed By: #### L 500.2500, L100.0100 ####[facility] [address] [place], [address] RDW CV Normal 11.6-14.6 [facility] Comment on above: Result Comment: Canc elled via OM: Order cancelled - Patient discharged Performed By: #### L 500.2500, L100.0100 ####[facility] [address] [place], [address] RDW SD Normal 35.1-43.9 [facility] Comment on above: Result Comment: Canc elled via OM: Order cancelled - Patient discharged Performed By: #### L 500.2500, L100.0100 ####[facility] [address] [place], [address] WBC Normal 4.4-11.0 [facility] Comment on above: Result Comment: Canc elled via OM: Order cancelled - Patient discharged Performed By: #### L 500.2500, L100.0100 ####[facility] [address] [place], [address] CBC WITH AUTO DIFFERENTIALon 06-12-2025 Basophils (Bld) [#/Vol] 0.0 10*3/uL Normal 0.0-0.[address] [facility] Comment on above: Performed By: #### L [id number] ####[employer]il[employer] Mechanic: NADIA FRENCH ([id number])[facility])[address] [place] [address] [place] Basophils/100 WBC (Bld) 0.6 % Normal 0.0-2.0 [facility] Comment on above: Performed By: #### L [id number] ####Kil[employer] Mechanic: NADIA FRENCH ([id number])[facility])[address] [place] [address] Eosinophils (Bld) [#/Vol] 0.2 10*3/uL Normal 0.0-0.[address] [facility] Comment on above: Performed By: #### L [id number] ####Kiln Mechanic: NADIA FRENCH ([id number])[facility])[address] [place] [address] [place] Eosinophils/100 WBC (Bld) 2.8 % Normal 0.0-6.[address] [facility] Comment on above: Performed By: #### L [id number] ####Kil[employer] Mechanic: NADIA FRENCH ([id number])[facility])[address] [place] [address] Erythrocyte distribution width (RBC) [Ratio] 26.7 % High 11.5-15.[address] [facility] Comment on above: Performed By: #### L [id number] ####Kil[employer] Mechanic: NADIA FRENCH ([id number])[facility])[address] [place] [address] Hematocrit (Bld) [Volume fraction] 27.3 % Low 35.0-47.[address] [facility] Comment on above: Performed By: #### L [id number] ####Kil[employer] Mechanic: NADIA FRENCH ([id number])[facility] Hemoglobin (Bld) [Mass/Vol] 7.9 g/dL Low 11.7-16.0 [facility] Comment on above: Performed By: #### L [id number] ####Kil[employer] Mechanic: NADIA FRENCH ([id number])[facility])[address] [place] [address] IMMATURE GRANS % 0.6 % Normal 0.0-2.0 [facility] Comment on above: Performed By: #### L [id number] ####Kil[employer] Mechanic: NADIA FRENCH ([id number])[address] IMMATURE GRANS ABSOLUTE 0.0 10*3/uL Normal <0.1 [facility] Comment on above: Performed By: #### L [id number] ####Kiln Mechanic: NADIA FRENCH ([id number])[facility])[address] [place] [address] Lymphocytes (Bld) [#/Vol] 1.3 10*3/uL Normal 1.0-4.3 [facility] Comment on above: Performed By: #### L [id number] ####Kil[employer] Mechanic: NADIA FRENCH ([id number])[address] Lymphocytes/100 WBC (Bld) 18.7 % Normal 15.0-45.[address] [facility] Comment on above: Performed By: #### L [id number] ####Kiln Mechanic: NADIA FRENCH ([id number])[facility])[address] [place] [address] MCH (RBC) [Entitic mass] 22.6 pg Low 26.0-34.0 [facility] Comment on above: Performed By: #### L [id number] ####Kil[employer] Mechanic: NADIA FRENCH ([id number])[facility])[address] [place] [address] MCHC 28.9 % Low 30.5-36.0 [facility] Comment on above: Performed By: #### L [id number] ####Kiln Mechanic: NADIA FRENCH ([id number])[facility])[address] [place] [address] MCV (RBC) [Entitic vol] 78.2 fL Normal 77.0-99.0 [facility] Comment on above: Performed By: #### L [id number] ####Kiln Mechanic: NADIA FRENCH ([id number])[facility])[address] [place] [address] Monocytes (Bld) [#/Vol] 0.5 10*3/uL Normal 0.0-0.[address] [facility] Comment on above: Performed By: #### L [id number] ####Kiln Mechanic: NADIA FRENCH ([id number])[facility])[address] [place] [address] Monocytes/100 WBC (Bld) 7.6 % Normal 5.0-13.0 [facility] Comment on above: Performed By: #### L [id number] ####Kiln Mechanic: NADIA FRENCH ([id number])[facility])[address] [place] [address] NEUTROPHILS ABSOLUTE 5.0 10*3/uL Normal 1.8-7.5 [facility] Comment on above: Performed By: #### L [id number] ####Kil[employer] Mechanic: NADIA FRENCH ([id number])[facility])[address] [place] [address] Neutrophils/100 WBC (Bld) 69.7 % Normal 38.0-82.[address] [facility] Comment on above: Performed By: #### L [id number] ####Kiln Mechanic: NADIA FRENCH ([id number])[facility])[address] [place] [address] NRBC 0.0 /100 WBCs Normal 0.0-2.[address] [facility] Comment on above: Performed By: #### L [id number] ####Kil[employer] Mechanic: NADIA FRENCH ([id number])[facility])[address] [place] [address] Platelet mean volume (Bld) [Entitic vol] 9.5 fL Normal 9.0-12.7 [facility] Comment on above: Performed By: #### L [id number] ####Kiln Mechanic: NADIA FRENCH ([id number])[facility])[address] [place] [address] Platelets (Bld) [#/Vol] 453 10*3/uL High 140-[address] [facility] Comment on above: Performed By: #### L [id number] ####Kiln Mechanic: NADIA FRENCH ([id number])[facility])[address] [place] [address] RBC (Bld) [#/Vol] 3.49 10*6/uL Low 3.80-5.[address] [facility] Comment on above: Performed By: #### L [id number] ####Kiln Mechanic: NADIA FRENCH ([id number])[facility])[address] [place] [address] WBC (Bld) [#/Vol] 7.1 10*3/uL Normal 3.6-10.7 [facility] Comment on above: Performed By: #### L [id number] ####Kil[employer] Mechanic: NADIA FRENCH ([id number])[facility])[address] [place] [address] Erythrocyte distribution width (RBC) [Ratio] 26.9 % High 11.5-15.[address] [facility] Comment on above: Performed By: #### L [id number], [id number] ####Kil[employer] Mechanic: NADIA FRENCH ([id number])[facility])[address] [place] [address] Hematocrit (Bld) [Volume fraction] 26.1 % Low 35.0-47.[address] [facility] Comment on above: Performed By: #### L [id number], [id number] ####Kil[employer] Mechanic: NADIA [id number])[facility])[address] [place] [address] Hemoglobin (Bld) [Mass/Vol] 7.6 g/dL Low 11.7-16.0 [facility] Comment on above: Performed By: #### L [id number], [id number] ####Kil[employer] Mechanic: NADIA FRENCH ([id number])[facility])[address] [place] [address] MCH (RBC) [Entitic mass] 23.1 pg Low 26.0-34.0 [facility] Comment on above: Performed By: #### L [id number], [id number] ####Kil[employer] Mechanic: NADIA FRENCH ([id number])[facility])[address] [place] [address] MCHC 29.1 % Low 30.5-36.[address] [facility] Comment on above: Performed By: #### L [id number], [id number] ####Kil[employer] Mechanic: NADIA FRENCH ([id number])[facility])[address] [place] [address] MCV (RBC) [Entitic vol] 79.3 fL Normal 77.0-99.0 [facility] Comment on above: Performed By: #### L [id number], [id number] ####Kil[employer] Mechanic: NADIA FRENCH ([id number])[facility])[address] [place] [address] Platelet mean volume (Bld) [Entitic vol] 9.5 fL Normal 9.0-12.[address] [facility] Comment on above: Performed By: #### L [id number], [id number] ####Kil[employer] Mechanic: NADIA FRENCH ([id number])[facility])[address] [place] [address] Platelets (Bld) [#/Vol] 450 10*3/uL High 140-[address] [facility] Comment on above: Performed By: #### L [id number], [id number] ####Kil[employer] Mechanic: NADIA FRENCH ([id number])[facility])[address] [place] [address] RBC (Bld) [#/Vol] 3.29 10*6/uL Low 3.80-5.[address] [facility] Comment on above: Performed By: #### L [id number], [id number] ####Kil[employer] Mechanic: NADIA FRENCH ([id number])[facility])[address] [place] [address] WBC (Bld) [#/Vol] 7.1 10*3/uL Normal 3.6-10.7 [facility] Comment on above: Performed By: #### L [id number], [id number] ####Kil[employer] Mechanic: NADIA FRENCH ([id number])[facility])[address] [place] [address] COMPREHENSIVE METABOLIC PANE David 06-12-2025 Albumin [Mass/Vol] 1.8 g/dL Low 3.4-4.8 [facility] Comment on above: Performed By: #### L AB129, LAB17, GEL022, CXI611 ####Kil[employer] Mechanic: NADIA FRENCH ([id number])[facility])[address] [place] [address] ALP [Catalytic activity/Vol] 78 U/L Normal 40-150 [facility] Comment on above: Performed By: #### L AB129, LAB17, [id number], [id number] ####Kiln Mechanic: NADIA FRENCH ([id number])[facility])[address] [place] [address] ALT [Catalytic activity/Vol] 20 U/L Normal <[address] [facility] Comment on above: Performed By: #### L AB129, LAB17, OLK460, GPH138 ####Kiln Mechanic: NADIA FRENCH ([id number])[facility])[address] [place] [address] Anion gap [Moles/Vol] 8 mmol/L Normal 3-13 [facility] Comment on above: Performed By: #### L AB129, LAB17, QYH997, NAW096 ####Kil[employer] Mechanic: NADIA FRENCH ([id number])[facility])[address] [place] [address] AST [Catalytic activity/Vol] 31 U/L Normal <34 [facility] Comment on above: Performed By: #### L AB129, LAB17, UTP934, XBD411 ####Kil[employer] Mechanic: NADIA FRENCH ([id number])[facility])[address] [place] [address] Bilirubin [Mass/Vol] 0.5 mg/dL Normal <1.2 [facility] Comment on above: Performed By: #### L AB129, LAB17, ASQ734, MMA107 ####Kiln Mechanic: NADIA FRENCH ([id number])[facility])[address] [place] [address] Calcium [Mass/Vol] 8.0 mg/dL Low 8.8-10.0 [facility] Comment on above: Performed By: #### L AB129, LAB17, JDW999, GJM672 ####Kil[employer] Mechanic: NADIA FRENCH ([id number])[facility])[address] [place] [address] Chloride [Moles/Vol] 103 mmol/L Normal 98-107 [facility] Comment on above: Performed By: #### L AB129, LAB17, FPT984, VHS318 ####Kiln Mechanic: NADIA FRENCH ([id number])[facility])[address] [place] [address] [place] CO2 [Moles/Vol] 29 mmol/L Normal 23-31 [facility] Comment on above: Performed By: #### L AB129, LAB17, ECI513, NLF092 ####Kil[employer] Mechanic: NADIA FRENCH ([id number])[facility])[address] [place] [address] Creatinine [Mass/Vol] 1.32 mg/dL High 0.57-1.11 [facility] Comment on above: Performed By: #### L AB129, LAB17, XBB885, BFN106 ####Kil[employer] Mechanic: NADIA FRENCH ([id number])[address] GLOMERULAR FILTRATION RATE ML/MIN/1.73 SQ M.PREDICTED 46.0 mL/min/1.73m*2 Low >60.0 [facility] Comment on above: Result Comment: Calc ulation based on the Chronic Kidney Disease Epidemiology Collaboration (CKD-EPI) equation refit without adjustment for race Performed By: #### L AB129, LAB17, GJN657, HVY199 ####Kil[employer] Mechanic: NADIA FRENCH ([id number])[address] Glucose [Mass/Vol] 95 mg/dL Normal 82-115 [facility] Comment on above: Performed By: #### L AB129, LAB17, WOS555, TWR794 ####Kiln Mechanic: NADIA FRENCH ([id number])[address] Potassium [Moles/Vol] 3.9 mmol/L Normal 3.5-5.1 [facility] Comment on above: Result Comment: [facility] potassium values may be up to 0.5 mmol/L lower than serum values. Performed By: #### L AB129, LAB17, MUQ708, HPY947 ####Kiln Mechanic: NADIA FRENCH ([id number])[address] Protein [Mass/Vol] 6.2 g/dL Low 6.4-8.3 [facility] Comment on above: Performed By: #### L AB129, LAB17, DYI258, TJR229 ####Kiln Mechanic: NADIA FRENCH ([id number])[address] Sodium [Moles/Vol] 140 mmol/L Normal 136-145 [facility] Comment on above: Performed By: #### L AB129, LAB17, AHT132, DOG951 ####Kiln Mechanic: NADIA FRENCH ([id number])[facility] [place] [address] Urea nitrogen [Mass/Vol] 41 mg/dL High 9-23 [facility] Comment on above: Performed By: #### L AB129, LAB17, VEC248, ECL614 ####Kiln Mechanic: NADIA FRENCH ([id number])[facility])[address] [place] [address] Consulton 06-12-2025 Consult See SW note. Normal [facility] Consult Normal [facility] ECG 12-LEADon 06-12-2025 ECG 12-LEAD IMPRESSION: Atypical Atrial flutter vs coarse Atrial fibrillation LVH with secondary repolarization abnormality Electronically Signed On 06-12-2025 17:39:43 EDT by Ligia Lackey Normal [facility] MAGNESIUMon 06-12-2025 Magnesium [Mass/Vol] 1.9 mg/dL Normal 1.6-2.6 [facility] Comment on above: Result Comment: YESY [place] COMMENTS:Higher values can be expected in females during menses. Performed By: #### L AB129, LAB17, XWS175, KQC262 ####Kiln Mechanic: NADIA FRENCH ([id number])[facility])[address] [place] [address] MANUAL DIFFERENTIAL (CELLAVI JOHN)on 06-12-2025 ANISOCYTOSIS PRESENCE IN BLOOD BY LIGHT MICROSCOPY Slight Abnormal (none) [facility] Comment on above: Performed By: #### L [id number], [id number] ####Kiln Mechanic: NADIA FRENCH ([id number])[facility])[address] [place] [address] BAND NEUTROPHILS TOTAL PER COUNTED LEUKOCYTES BY MANUAL COUNT 1 Normal [facility] Comment on above: Performed By: #### L [id number], [id number] ####Kiln Mechanic: NADIA FRENCH ([id number])[facility])[address] [place] [address] BANDS (10*3/UL) IN BLOOD-CELLAVISION 0.1 10*3/uL High <=0.[address] [facility] Comment on above: Performed By: #### L [id number], [id number] ####Kiln Mechanic: NADIA FRENCH ([id number])[facility])[address] [place] [address] [place] BASOPHILS (10*3/UL) IN BLOOD-CELLAVISION 0.2 10*3/uL Normal 0.0-0.[address] [facility] Comment on above: Performed By: #### L [id number], [id number] ####Kiln Mechanic: NADIA FRENCH ([id number])[facility])[address] [place] [address] [place] BASOPHILS TOTAL PER COUNTED LEUKOCYTES BY MANUAL COUNT [address] [facility] Comment on above: Performed By: #### L [id number], [id number] ####Kiln Mechanic: NADIA FRENCH ([id number])[facility])[address] [place] [address] [place] BASOPHILS/100 LEUKOCYTES IN BLOOD-CELLAVISION 3 % High 0-[address] [facility] Comment on above: Performed By: #### L [id number], [id number] ####Kiln Mechanic: NADIA FRENCH ([id number])[facility])[address] [place] [address] [place] BLASTS TOTAL PER COUNTED LEUKOCYTES BY MANUAL COUNT Normal [facility] Comment on above: Performed By: #### L [id number], [id number] ####Kiln Mechanic: NADIA FRENCH ([id number])[facility])[address] [place] [address] [place] EOSINOPHILS (10*3/UL) IN BLOOD-CELLAVISION 0.2 10*3/uL Normal 0.0-0.[address] [facility] Comment on above: Performed By: #### L [id number], [id number] ####Kiln Mechanic: NADIA FRENCH ([id number])[facility])[address] [place] [address] [place] EOSINOPHILS TOTAL PER COUNTED LEUKOCYTES BY MANUAL COUNT 3 High 0-[address] [facility] Comment on above: Performed By: #### L [id number], [id number] ####Kiln Mechanic: NADIA FRENCH ([id number])[facility])[address] [place] [address] [place] EOSINOPHILS/100 LEUKOCYTES IN BLOOD-CELLAVISION 3 % Normal 0-[address] [facility] Comment on above: Performed By: #### L [id number], [id number] ####Kiln Mechanic: NADIA FRENCH ([id number])[facility] [place] [address] [place] HYPOCHROMIA (PRESENCE) IN BLOOD BY LIGHT MICROSCOPY Moderate Abnormal (none) [facility] Comment on above: Performed By: #### L [id number], [id number] ####Kiln Mechanic: NADIA FRENCH ([id number])[facility])[address] [place] [address] [place] LYMPHOCYTES (10*3/UL) IN BLOOD-CELLAVISION 1.3 10*3/uL Normal 1.0-4.[address] [facility] Comment on above: Performed By: #### L [id number], [id number] ####Kiln Mechanic: NADIA FRENCH ([id number])[facility])[address] [place] [address] [place] LYMPHOCYTES TOTAL PER COUNTED LEUKOCYTES BY MANUAL COUNT [address] [facility] Comment on above: Performed By: #### L [id number], [id number] ####Kiln Mechanic: NADIA FRENCH ([id number])[facility])[address] [place] [address] [place] LYMPHOCYTES/100 LEUKOCYTES IN BLOOD-CELLAVISION 19 % Normal 15-[address] [facility] Comment on above: Performed By: #### L [id number] ####Kiln Mechanic: NADIA FRENCH ([phone])[facility] ([facility])[address] [place] [address] [place] MACROCYTES (PRESENCE) IN BLOOD BY LIGHT MICROSCOPY Slight Abnormal (none) [facility] Comment on above: Performed By: #### L [id number] ####Kiln Mechanic: NADIA FRENCH ([phone])[facility] ([facility])[address] [place] [address] [place] METAMYELOCYTES TOTAL PER COUNTED LEUKOCYTES BY MANUAL COUNT Normal [facility] Comment on above: Performed By: #### L [id number] ####Kiln Mechanic: NADIA FRENCH ([phone])[facility] ([facility])[address] [place] [address] MICROCYTES (PRESENCE) IN BLOOD BY LIGHT MICROSCOPY Slight Abnormal (none) [facility] Comment on above: Performed By: #### L [id number], [id number] ####Kiln Mechanic: NADIA FRENCH ([phone])[facility])[address] [place] [address] MONOCYTES (10*3/UL) IN BLOOD-CELLAVISION 0.1 10*3/uL Normal 0.0-0.[address] [facility] Comment on above: Performed By: #### L [id number], [id number] ####Kiln Mechanic: NADIA FRENCH ([id number])[facility] ([facility])[address] [place] [address] [place] MONOCYTES TOTAL PER COUNTED LEUKOCYTES BY MANUAL COUNT [address] [facility] Comment on above: Performed By: #### L [id number], [id number] ####Kiln Mechanic: NADIA FRENCH ([id number])[facility])[address] [place] [address] [place] MONOCYTES/100 LEUKOCYTES IN BLOOD-JAMEEL 2 % Low 5-[address] [facility] Comment on above: Performed By: #### L [id number], [id number] ####Kiln Mechanic: NADIA FRENCH ([id number])[facility])[address] [place] [address] [place] MYELOCYTES COUNTED BY MANUAL COUNT Normal [facility] Comment on above: Performed By: #### L [id number], [id number] ####Kiln Mechanic: NADIA [id number])[facility] ([facility])[address] [place] [address] [place] NEUTROPHILS BAND FORM/100 LEUKOCYTES IN BLOOD-CELLAVISI 1 % High <=[address] [facility] Comment on above: Performed By: #### L [id number], [id number] ####Kiln Mechanic: NADIA FRENCH ([id number])[facility] ([facility])[address] [place] [address] [place] NEUTROPHILS TOTAL PER COUNTED LEUKOCYTES BY MANUAL COUNT [address] [facility] Comment on above: Performed By: #### L [id number], [id number] ####Kiln Mechanic: NADIA FRENCH ([id number])[facility] ([facility])[address] [place] [address] OVALOCYTES PRESENCE IN BLOOD BY LIGHT MICROSCOPY Slight Abnormal (none) [facility] Comment on above: Performed By: #### L [id number], [id number] ####Kiln Mechanic: NADIA FRENCH ([id number])[facility] [place] [address] [place] POLYCHROMASIA IN BLOOD BY LIGHT MICROSCOPY Slight Abnormal (none) [facility] Comment on above: Performed By: #### L [id number], [id number] ####Kiln Mechanic: NADIA FRENCH ([id number])[facility] ([facility])[address] [place] [address] [place] PROMYELOCYTES TOTAL PER COUNTED LEUKOCYTES BY MANUAL COUNT Normal [facility] Comment on above: Performed By: #### L [id number], [id number] ####Kiln Mechanic: NADIA FRENCH ([id number])[facility] ([facility])[address] [place] [address] [place] RBC MORPHOLOGY IN BLOOD abnormal Normal [facility] Comment on above: Performed By: #### L [id number], [id number] ####Kiln Mechanic: NADIA FRENCH ([id number])[facility] [place] [address] [place] SEGMENTED NEUTROPHILS (10*3/UL) IN BLOOD-CELLAVISION 5.2 10*3/uL Normal 1.8-7.5 [facility] Comment on above: Performed By: #### L [id number], [id number] ####Kiln Mechanic: NADIA FRENCH ([id number])[facility])[address] [place] [address] SEGMENTED NEUTROPHILS/100 LEUKOCYTES-CE 72 % Normal 38-82 [facility] Comment on above: Performed By: #### L [id number], [id number] ####Kiln Mechanic: NADIA FRENCH ([id number])[facility])[address] [place] [address] UNCLASSIFIED CELLS TOTAL PER COUNTED LEUKOCYTES BY MANUAL COUNT [facility] Comment on above: Performed By: #### L [id number], [id number] ####Kiln Mechanic: NADIA FRENCH ([id number])[facility])[address] [place] [address] VARIANT LYMPHOCYTES TOTAL PER COUNTED LEUKOCYTES BY MANUAL COUNT [facility] Comment on above: Performed By: #### L [id number], [id number] ####Kiln Mechanic: NADIA FRENCH ([id number])[facility] ([facility])[address] [place] [address] PHOSPHORUSon 06-12-2025 Phosphate [Mass/Vol] 3.5 mg/dL Normal 2.3-4.7 [facility] Comment on above: Performed By: #### L [id number], [id number], [id number], [id number] ####Kiln Mechanic: NADIA FRENCH ([id number])[facility])[address] [place] [address] PROTIME AND APTTon aPTT Coag (Bld) [Time] 34.8 s High 20.0-30.5 [facility] Comment on above: Performed By: #### L [id number] ####Kiln Mechanic: NADIA FRENCH ([id number])[facility])[address] [place] [address] INR Coag (PPP) [Relative time] 1.0 {INR} Normal 0.9-1.1 [facility] Comment on above: Result Comment: Leonardo [...] prevent Myocardial Infarction Performed By: #### L [id number] ####Kiln Mechanic: NADIA FRENCH ([id number])[facility] ([facility])[address] [place] [address] PT Coag (PPP) [Time] 11.0 s Normal 9.0-12.0 [facility] Comment on above: Performed By: #### L [id number] ####Kiln Mechanic: NADIA FRENCH ([id number])[facility] ([facility])[address] [place] [address] Progress Noteon 06-12-2025 Progress Note Normal [facility] THYROID STIMULATING HORMONEo n 06-12-2025 THYROID STIMULATING HORMONE 2.80 uIU/mL Normal 0.35-4.94 [facility] Comment on above: Performed By: #### L [id number], LAB17, [id number], [id number] ####Kiln Mechanic: NADIA FRENCH ([id number])[facility] ([facility])[address] [place] [address] XR CHEST 1 VIEWon 06-12-2025 XR CHEST 1 VIEW Normal [facility] Absolute lymphocyte countOrd ered By: Ziggy Shelton on 06-11-2025 Lymphocytes Auto (Unsp spec) [#/Vol] 1.34 10*3/uL 0.83-4.51 [facility] Anion gap in Serum or Plasma Ordered By: Ziggy Shelton on 06-11-2025 Anion gap [Moles/Vol] 11 mmol/L 5-15 [facility] Automated lymphocyte count a s percentage of total leukocytesOrdered By: Ziggy Shelton on 06-11-2025 Lymphocytes/100 WBC Auto (Unsp spec) 18.7 % Low 19-41 [facility] BUN/creatinine ratioOrdered By: Ziggy Shelton on 06-11-2025 Urea nitrogen/Creatinine [Mass ratio] 23.9 mg/mg High 10-20 [facility] Basic Metabolic Profile (BMP )on 06-11-2025 BUN/CRE 23.9 RATIO High 10-20 [facility] Comment on above: Performed By: #### L 100.0100, L500.2500 ####[facility] [address] [place], [address] Calcium [Mass/Vol] 8.1 mg/dL Normal 7.6-11.0 [facility] Comment on above: Performed By: #### L 100.0100, L500.2500 ####[facility] [address] [place], [address] Chloride [Moles/Vol] 101 mmol/L Normal 98-108 [facility] Comment on above: Performed By: #### L 100.0100, L500.2500 ####[facility] [address] [place], [address] CO2 [Moles/Vol] 27.9 mmol/L Normal 21.0-32.0 [facility] Comment on above: Performed By: #### L 100.0100, L500.2500 ####[facility] [address] [place], [address] Creatinine [Mass/Vol] 1.57 mg/dL High 0.70-1.20 [facility] Comment on above: Performed By: #### L 100.0100, L500.2500 ####[facility] [address] [place], [address] ECRCL 39.09 ml/min Low 50-250 [facility] Comment on above: Performed By: #### L 100.0100, L500.2500 ####[facility] [address] [place], [address] GAP 11 Normal 5-15 [facility] Comment on above: Performed By: #### L 100.0100, L500.2500 ####[facility] [address] [place], [address] GFR/1.73 sq M.predicted among non-blacks MDRD (S/P/Bld) [Vol rate/Area] 37 mL/min/{1.73_m2} Low >60 [facility] Comment on above: Result Comment: mL/m in/1.73m2 CKD-EPI Creatinine Equation (2020) Performed By: #### L 100.0100, L500.2500 ####[facility] [address] [place], [address] Glucose [Mass/Vol] 92 mg/dL Normal 70-99 [facility] Comment on above: Performed By: #### L 100.0100, L500.2500 ####[facility] [address] [place], [address] Potassium [Moles/Vol] 3.9 mmol/L Normal 3.3-5.1 [facility] Comment on above: Performed By: #### L 100.0100, L500.2500 ####[facility] [address] [place], [address] Sodium [Moles/Vol] 139 mmol/L Normal 133-145 [facility] Comment on above: Performed By: #### L 100.0100, L500.2500 ####[facility] [address] [place], [address] Urea nitrogen [Mass/Vol] 38 mg/dL High 4-19 [facility] Comment on above: Performed By: #### L 100.0100, L500.2500 ####[facility] [address] [place], [address] Basophil percentageOrdered B y: Ziggy Shelton on 06-11-2025 Basophils/100 WBC (Bld) 0.7 % 0-1 [facility] Blood manual differential co mment interpretation (narrative result)Ordered By: Ziggy Shelton on 06-11-2025 Manual differential comment Lino (Bld) [Interp] SCANNED [facility] CBC W/Diff, Automatedon 05-28 Anisocytosis Ql (Bld) 2+ Normal [facility] Comment on above: Performed By: #### L 100.0100, L500.2500 ####[facility] [address] [place], [address] HYPOCHROMASIA 1+ Normal [facility] Comment on above: Performed By: #### L 100.0100, L500.2500 ####[facility] [address] [place], [address] SMEAR COMMENT SCANNED Normal [facility] Comment on above: Performed By: #### L 100.0100, L500.2500 ####[facility] [address] [place], [address] Carbon dioxide, total [Moles /volume] in Central venous bloodOrdered By: Ziggy Shelton on 06-11-2025 CO2 [Moles/Vol] 27.9 mmol/L 21.0-32.0 [facility] Chloride assayOrdered By: aNi Shelton on 06-11-2025 Chloride [Moles/Vol] 101 mmol/L 98-108 [facility] Eosinophil percentageOrdered By: Ziggy Shelton on 06-11-2025 Eosinophils/100 WBC (Bld) 2.5 % 0-5 [facility] Erythrocyte distribution wid th ratioOrdered By: Ziggy Shelton on 06-11-2025 Erythrocyte distribution width (RBC) [Ratio] 26.5 % High 11.6-14.6 [facility] Erythrocyte distribution wid th standard deviationOrdered By: Ziggy Shelton on 06-11-2025 Erythrocyte distribution width (RBC) [Ratio] 71.8 fl High 35.1-43.9 [facility] Glomerular filtration rate ( GFR) estimation/1.73 sq m using serum, plasma, or whole bOrdered By: Ziggy Shelton on 06-11-2025 GFR/1.73 sq M.predicted among non-blacks MDRD (S/P/Bld) [Vol rate/Area] 37 mL/min/{1.73_m2} Low >60 [facility] Hematocrit Auto (Bld) [Volum e fraction]Ordered By: Ziggy Shelton on 06-11-2025 Hematocrit (Bld) [Volume fraction] 26.0 % Low 37-47 [facility] Hemoglobin measurementOrdere d By: Ziggy Shelton on 06-11-2025 Hemoglobin (Bld) [Mass/Vol] 7.4 g/dL Low 12.0-15.0 [facility] Hypochromatic red blood cell detectionOrdered By: Ziggy Shelton on 06-11-2025 Hypochromia Ql (Bld) 1+ [facility] Immature granulocytes/100 WB C Auto (Bld)Ordered By: Ziggy Shelton on 06-11-2025 Immature granulocytes/100 WBC (Bld) 0.800 % 0.0-0.9 [facility] MCV (mean corpuscular volume ) determinationOrdered By: Ziggy Shelton on 06-11-2025 MCV (RBC) [Entitic vol] 79.3 fL Low 81-99 [facility] Mean corpuscular hemoglobin (MCH) determinationOrdered By: Ziggy Shelton on 06-11-2025 MCH (RBC) [Entitic mass] 22.6 pg Low 27.0-32.0 [facility] Monocyte percentageOrdered B y: Ziggy Shelton on 06-11-2025 Monocytes/100 WBC (Bld) 8.6 % 0-10 [facility] Neutrophil percentageOrdered By: Ziggy Shelton on 06-11-2025 Neutrophils/100 WBC (Bld) 68.7 % 47-70 [facility] No Panel InformationOrdered By: Ziggy Shelton on 06-11-2025 2+ [facility] Platelet countOrdered By: Nai Shelton on 06-11-2025 Platelets (Bld) [#/Vol] 462 10*3/uL High 150-450 [facility] Potassium measurement (mass/ volume)Ordered By: Ziggy Shelton on 06-11-2025 Potassium (Unsp spec) [Mass/Vol] 3.9 mmol/L 3.3-5.1 [facility] RBC Auto (Bld) [#/Vol]Ordere d By: Ziggy Shelton on 06-11-2025 RBC (Bld) [#/Vol] 3.28 10*6/uL Low 4.2-5.4 [facility] Serum creatinine measurement (mass/volume)Ordered By: Ziggy Shelton on 06-11-2025 Creatinine [Mass/Vol] 1.57 mg/dL High 0.70-1.20 [facility] Serum glucose measurement (m ass/volume)Ordered By: Ziggy Shelton on 06-11-2025 Glucose [Mass/Vol] 92 mg/dL 70-99 [facility] Serum or plasma calcium suresh urement (mass/volume)Ordered By: Ziggy Shelton on 06-11-2025 Calcium [Mass/Vol] 8.1 mg/dL 7.6-11.0 [facility] Serum or plasma urea nitroge n measurement (mass/volume)Ordered By: Ziggy Shelton on 06-11-2025 Urea nitrogen [Mass/Vol] 38 mg/dL High 4-19 [facility] Sodium levelOrdered By: Gera Shelton on 06-11-2025 Sodium [Moles/Vol] 139 mmol/L 133-145 [facility] White blood cell (WBC) count Ordered By: Ziggy Shelton on 06-11-2025 WBC (Bld) [#/Vol] 7.2 10*3/uL 4.4-11.0 [facility] Basic Metabolic Profile (BMP )on 06-10-2025 BUN/CRE 25.1 RATIO High 10-20 [facility] Comment on above: Performed By: #### L 500.2500, L100.0100 ####[facility] [address] [place], [place], [address] Calcium [Mass/Vol] 8.0 mg/dL Normal 7.6-11.0 [facility] Comment on above: Performed By: #### L 500.2500, L100.0100 ####[facility] [address] [place], [address] Chloride [Moles/Vol] 102 mmol/L Normal 98-108 [facility] Comment on above: Performed By: #### L 500.2500, L100.0100 ####[facility] [address] [place], [address] CO2 [Moles/Vol] 26.2 mmol/L Normal 21.0-32.0 [facility] Comment on above: Performed By: #### L 500.2500, L100.0100 ####[facility] [address] [place], [address] Creatinine [Mass/Vol] 1.74 mg/dL High 0.70-1.20 [facility] Comment on above: Performed By: #### L 500.2500, L100.0100 ####[facility] [address] [place], [address] ECRCL 35.08 ml/min Low 50-250 [facility] Comment on above: Performed By: #### L 500.2500, L100.0100 ####[facility] [address] [place], [address] GAP 11 Normal 5-15 [facility] Comment on above: Performed By: #### L 500.2500, L100.0100 ####[facility] [address] [place], [address] GFR/1.73 sq M.predicted among non-blacks MDRD (S/P/Bld) [Vol rate/Area] 33 mL/min/{1.73_m2} Low >60 [facility] Comment on above: Result Comment: mL/m in/1.73m2 CKD-EPI Creatinine Equation (2020) Performed By: #### L 500.2500, L100.0100 ####[facility] [address] [place], [address] Glucose [Mass/Vol] 95 mg/dL Normal 70-99 [facility] Comment on above: Performed By: #### L 500.2500, L100.0100 ####[facility] [address] [place], [address] Potassium [Moles/Vol] 4.0 mmol/L Normal 3.3-5.1 [facility] Comment on above: Performed By: #### L 500.2500, L100.0100 ####[facility] [address] [place], [address] Sodium [Moles/Vol] 139 mmol/L Normal 133-145 [facility] Comment on above: Performed By: #### L 500.2500, L100.0100 ####[facility] [address] [place], [address] Urea nitrogen [Mass/Vol] 44 mg/dL High 4-19 [facility] Comment on above: Performed By: #### L 500.2500, L100.0100 ####[facility] [address] [place], [address] CBC W/Diff, Automatedon 05-28 Anisocytosis Ql (Bld) 2+ Normal [facility] Comment on above: Performed By: #### L 500.2500, L100.0100 ####[facility] [address] [place], [address] HYPOCHROMASIA 3+ Normal [facility] Comment on above: Performed By: #### L 500.2500, L100.0100 ####[facility] [address] [place], [address] Magnesiumon 06-10-2025 Magnesium [Mass/Vol] 2.1 mg/dL Normal 1.5-2.2 [facility] Comment on above: Performed By: #### L 501.5200, L501.2300 ####[facility] [address] [place], [address] Magnesium measurement (mass/ volume)Ordered By: Juvenal Roblero on 06-10-2025 Magnesium (Unsp spec) [Mass/Vol] 2.1 mg/dL 1.5-2.2 [facility] Phosphoruson 06-10-2025 Phosphate [Mass/Vol] 3.6 mg/dL Normal 2.7-4.5 [facility] Comment on above: Performed By: #### L 501.5200, L501.2300 ####[facility] [address] [place], [address] Progress Noteon 06-10-2025 Progress Note This encounter was c reated by mistake Normal [facility] Basic Metabolic Profile (BMP )on 06-09-2025 BUN/CRE 23.4 RATIO High 10-20 [facility] Comment on above: Performed By: #### L 500.2500, L100.0100 ####[facility] [address] [place], [address] Calcium [Mass/Vol] 8.0 mg/dL Normal 7.6-11.0 [facility] Comment on above: Performed By: #### L 500.2500, L100.0100 ####[facility] [address] [place], [address] Chloride [Moles/Vol] 104 mmol/L Normal 98-108 [facility] Comment on above: Performed By: #### L 500.2500, L100.0100 ####[facility] [address] [place], [address] CO2 [Moles/Vol] 26.9 mmol/L Normal 21.0-32.0 [facility] Comment on above: Performed By: #### L 500.2500, L100.0100 ####[facility] [address] [place], [address] Creatinine [Mass/Vol] 1.85 mg/dL High 0.70-1.20 [facility] Comment on above: Performed By: #### L 500.2500, L100.0100 ####[facility] [address] [place], [address] ECRCL 34.16 ml/min Low 50-250 [facility] Comment on above: Performed By: #### L 500.2500, L100.0100 ####[facility] [address] [place], [address] GAP 12 Normal 5-15 [facility] Comment on above: Performed By: #### L 500.2500, L100.0100 ####[facility] [address] [place], [address] GFR/1.73 sq M.predicted among non-blacks MDRD (S/P/Bld) [Vol rate/Area] 31 mL/min/{1.73_m2} Low >60 [facility] Comment on above: Result Comment: mL/m in/1.73m2 CKD-EPI Creatinine Equation (2020) Performed By: #### L 500.2500, L100.0100 ####[facility] [address] [place], [address] Glucose [Mass/Vol] 89 mg/dL Normal 70-99 [facility] Comment on above: Performed By: #### L 500.2500, L100.0100 ####[facility] [address] [place], [address] Potassium [Moles/Vol] 3.9 mmol/L Normal 3.3-5.1 [facility] Comment on above: Performed By: #### L 500.2500, L100.0100 ####[facility] [address] [place], [address] Sodium [Moles/Vol] 143 mmol/L Normal 133-145 [facility] Comment on above: Performed By: #### L 500.2500, L100.0100 ####[facility] [address] [place], [address] Urea nitrogen [Mass/Vol] 43 mg/dL High 4-19 [facility] Comment on above: Performed By: #### L 500.2500, L100.0100 ####[facility] [address] [place], [address] CBC W/Diff, Automatedon 05-28 Anisocytosis Ql (Bld) 1+ Normal [facility] Comment on above: Performed By: #### L 500.2500, L100.0100 ####[facility] [address] [place], [address] HYPOCHROMASIA 1+ Normal [facility] Comment on above: Performed By: #### L 500.2500, L100.0100 ####[facility] [address] [place], [address] Basic Metabolic Profile (BMP )on 06-08-2025 BUN/CRE 25.8 RATIO High 10-20 [facility] Comment on above: Performed By: #### L 500.2500, L100.0100 ####[facility] [address] [place], [address] Calcium [Mass/Vol] 8.0 mg/dL Normal 7.6-11.0 [facility] Comment on above: Performed By: #### L 500.2500, L100.0100 ####[facility] [address] [place], [address] Chloride [Moles/Vol] 105 mmol/L Normal 98-108 [facility] Comment on above: Performed By: #### L 500.2500, L100.0100 ####[facility] [address] [place], [address] CO2 [Moles/Vol] 25.7 mmol/L Normal 21.0-32.0 [facility] Comment on above: Performed By: #### L 500.2500, L100.0100 ####[facility] [address] [place], [address] Creatinine [Mass/Vol] 1.73 mg/dL High 0.70-1.20 [facility] Comment on above: Performed By: #### L 500.2500, L100.0100 ####[facility] [address] [place], [address] ECRCL 35.45 ml/min Low 50-250 [facility] Comment on above: Performed By: #### L 500.2500, L100.0100 ####[facility] [address] [place], [address] GAP 12 Normal 5-15 [facility] Comment on above: Performed By: #### L 500.2500, L100.0100 ####[facility] [address] [place], [address] GFR/1.73 sq M.predicted among non-blacks MDRD (S/P/Bld) [Vol rate/Area] 33 mL/min/{1.73_m2} Low >60 [facility] Comment on above: Result Comment: mL/m in/1.73m2 CKD-EPI Creatinine Equation (2020) Performed By: #### L 500.2500, L100.0100 ####[facility] [address] [place], [address] Glucose [Mass/Vol] 79 mg/dL Normal 70-99 [facility] Comment on above: Performed By: #### L 500.2500, L100.0100 ####[facility] [address] [place], [address] Potassium [Moles/Vol] 4.0 mmol/L Normal 3.3-5.1 [facility] Comment on above: Performed By: #### L 500.2500, L100.0100 ####[facility] [address] [place], [address] Sodium [Moles/Vol] 142 mmol/L Normal 133-145 [facility] Comment on above: Performed By: #### L 500.2500, L100.0100 ####[facility] [address] [place], [address] Urea nitrogen [Mass/Vol] 45 mg/dL High 4-19 [facility] Comment on above: Performed By: #### L 500.2500, L100.0100 ####[facility] [address] [place], [address] CBC W/Diff, Automatedon 05-28 Anisocytosis Ql (Bld) 1+ Normal [facility] Comment on above: Performed By: #### L 500.2500, L100.0100 ####[facility] [address] [place], [address] Basic Metabolic Profile (BMP )on 06-07-2025 BUN/CRE 26.4 RATIO High 10-20 [facility] Comment on above: Performed By: #### L 500.2500, L100.0100 ####[facility] [address] [place], [address] Calcium [Mass/Vol] 8.1 mg/dL Normal 7.6-11.0 [facility] Comment on above: Performed By: #### L 500.2500, L100.0100 ####[facility] [address] [place], [address] Chloride [Moles/Vol] 105 mmol/L Normal 98-108 [facility] Comment on above: Performed By: #### L 500.2500, L100.0100 ####[facility] [address] [place], [address] CO2 [Moles/Vol] 27.5 mmol/L Normal 21.0-32.0 [facility] Comment on above: Performed By: #### L 500.2500, L100.0100 ####[facility] [address] [place], [address] Creatinine [Mass/Vol] 1.74 mg/dL High 0.70-1.20 [facility] Comment on above: Performed By: #### L 500.2500, L100.0100 ####[facility] [address] [place], [address] ECRCL 35.20 ml/min Low 50-250 [facility] Comment on above: Performed By: #### L 500.2500, L100.0100 ####[facility] [address] [place], [address] GAP 11 Normal 5-15 [facility] Comment on above: Performed By: #### L 500.2500, L100.0100 ####[facility] [address] [place], [address] GFR/1.73 sq M.predicted among non-blacks MDRD (S/P/Bld) [Vol rate/Area] 33 mL/min/{1.73_m2} Low >60 [facility] Comment on above: Result Comment: mL/m in/1.73m2 CKD-EPI Creatinine Equation (2020) Performed By: #### L 500.2500, L100.0100 ####[facility] [address] [place], [address] Glucose [Mass/Vol] 85 mg/dL Normal 70-99 [facility] Comment on above: Performed By: #### L 500.2500, L100.0100 ####[facility] [address] [place], [address] Potassium [Moles/Vol] 4.1 mmol/L Normal 3.3-5.1 [facility] Comment on above: Performed By: #### L 500.2500, L100.0100 ####[facility] [address] [place], [address] Sodium [Moles/Vol] 144 mmol/L Normal 133-145 [facility] Comment on above: Performed By: #### L 500.2500, L100.0100 ####[facility] [address] [place], [address] Urea nitrogen [Mass/Vol] 46 mg/dL High 4-19 [facility] Comment on above: Performed By: #### L 500.2500, L100.0100 ####[facility] [address] [place], [address] CBC W/Diff, Automatedon 05-28 PLT EST ADEQUATE Normal ADEQ [facility] Comment on above: Performed By: #### L 500.2500, L100.0100 ####[facility] [address] [place], [address] Anisocytosis Ql (Bld) 2+ Normal [facility] Comment on above: Performed By: #### L 500.2500, L100.0100 ####[facility] [address] [place], [address] OVALOCYTE 1+ Normal [facility] Comment on above: Performed By: #### L 500.2500, L100.0100 ####[facility] [address] [place], [address] Magnesiumon 06-07-2025 Magnesium [Mass/Vol] 2.1 mg/dL Normal 1.5-2.2 [facility] Comment on above: Performed By: #### L 501.5200 ####[facility] [address] [place], [address] Ovalocyte detectionOrdered B y: Hiren Sanders on 06-07-2025 Ovalocytes LM Ql (Bld) 1+ [facility] PAP IG HPV HR APTIMAon 06-07 ADEQ Comment Normal . [facility] Comment on above: Order Comment: Speci men Comment: [id number] Comment: No. of containers..01 ThinPrep Vial Result Comment: Sati sfactory for evaluation. Endocervical and/or squamous metaplasticcells (endocervical component) are present.Areas of partially obscuring inflammatory exudate are present.Partially obscuring thick areas are present. Performed By: #### L 7400.0377 ####[facility] [address] [place], [address] COMM . Normal . [facility] Comment on above: Order Comment: Speci men Comment: [id number] Comment: No. of containers..01 ThinPrep Vial Performed By: #### L 7400.0377 ####[facility] [address] [place], [address] COMMENT Comment Normal . [facility] Comment on above: Order Comment: Speci men Comment: [id number] Comment: No. of containers..01 ThinPrep Vial Result Comment: This liquid based ThinPrep(R) pap test was screened withthe use of an image guided system. Performed By: #### L 7400.0377 ####[facility] [address] [place], [address] DIAG Comment Abnormal . [facility] Comment on above: Order Comment: Speci men Comment: [id number] Comment: No. of containers..01 ThinPrep Vial Result Comment: EPIT HELIAL CELL ABNORMALITY.ATYPICAL GLANDULAR CELLS (AGC). Performed By: #### L 7400.0377 ####[facility] [address] [place], [address] HPV APTIMA, HR Negative Normal Negative [facility] Comment on above: Order Comment: Speci men Comment: [id number] Comment: No. of containers..01 ThinPrep Vial Result Comment: This nucleic acid amplification test detects fourteen high-risk HPV types (16,18,31,33,35,39,45,51,52,56,58,59,66,68)without differentiation.Performed at: - [address] [id number] Director: Pamella Negro MD, Phone: [phone] at: = - [facility] [id number] Director: Pamella Negro MD, Phone: [phone] Performed By: #### L 7400.0377 ####[facility] [address] [place], [place], [address] PAPSMR Comment Normal . [facility] Comment on above: Order Comment: Speci men Comment: [id number] Comment: No. of containers..01 ThinPrep Vial Result Comment: The Pap smear is a screening test designed to aid in thedetection of premalignant and malignant conditions of theuterine cervix. It is not a diagnostic procedure andshould not be used as the sole means of detecting cervicalcancer. Both false-positive and false-negative reports dooccur. Performed By: #### L 7400.0377 ####[facility] [address] [place], [address] Path.prov.IDC-9 Comment Normal . [facility] Comment on above: Order Comment: Speci men Comment: [id number] Comment: No. of containers..01 ThinPrep Vial Result Comment: [id number] Performed By: #### L 7400.0377 ####[facility] [address] [place], [place], [address] PERFORM Comment Normal . [facility] Comment on above: Order Comment: Speci men Comment: [id number] Comment: No. of containers..01 ThinPrep Vial Result Comment: Gertrudis Webb, Manager Cardiovascular (ASCP) Performed By: #### L 7400.0377 ####[facility] [address] [place], [address] RECOMM Comment Abnormal . [facility] Comment on above: Order Comment: Speci men Comment: [id number] Comment: No. of containers..01 ThinPrep Vial Result Comment: Sugg est colposcopy and biopsy if indicated. Performed By: #### L 7400.0377 ####[facility] [address] [place], [address] SIGN Comment Normal . [facility] Comment on above: Order Comment: Speci men Comment: [id number] Comment: No. of containers..01 ThinPrep Vial Result Comment: Araceli Adams MD, Pathologist Performed By: #### L 7400.0377 ####[facility] [address] [place], [address] Platelet estimateOrdered By: Hiren Sanders on 06-07-2025 Platelets LM Ql (Bld) ADEQUATE ADEQ [facility] Basic Metabolic Profile (BMP )on 06-06-2025 BUN/CRE 25.3 RATIO High 10-20 [facility] Comment on above: Performed By: #### L 500.2500, L100.0100 ####[facility] [address] [place], [address] Calcium [Mass/Vol] 8.2 mg/dL Normal 7.6-11.0 [facility] Comment on above: Performed By: #### L 500.2500, L100.0100 ####[facility] [address] [place], [address] Chloride [Moles/Vol] 105 mmol/L Normal 98-108 [facility] Comment on above: Performed By: #### L 500.2500, L100.0100 ####[facility] [address] [place], [address] CO2 [Moles/Vol] 26.0 mmol/L Normal 21.0-32.0 [facility] Comment on above: Performed By: #### L 500.2500, L100.0100 ####[facility] [address] [place], [address] Creatinine [Mass/Vol] 1.75 mg/dL High 0.70-1.20 [facility] Comment on above: Performed By: #### L 500.2500, L100.0100 ####[facility] [address] [place], [address] ECRCL 35.81 ml/min Low 50-250 [facility] Comment on above: Performed By: #### L 500.2500, L100.0100 ####[facility] [address] [place], [address] GAP 12 Normal 5-15 [facility] Comment on above: Performed By: #### L 500.2500, L100.0100 ####[facility] [address] [place], [address] GFR/1.73 sq M.predicted among non-blacks MDRD (S/P/Bld) [Vol rate/Area] 33 mL/min/{1.73_m2} Low >60 [facility] Comment on above: Result Comment: mL/m in/1.73m2 CKD-EPI Creatinine Equation (2020) Performed By: #### L 500.2500, L100.0100 ####[facility] [address] [place], [address] Glucose [Mass/Vol] 103 mg/dL High 70-99 [facility] Comment on above: Performed By: #### L 500.2500, L100.0100 ####[facility] [address] [place], [address] Potassium [Moles/Vol] 3.9 mmol/L Normal 3.3-5.1 [facility] Comment on above: Performed By: #### L 500.2500, L100.0100 ####[facility] [address] [place], [address] Sodium [Moles/Vol] 143 mmol/L Normal 133-145 [facility] Comment on above: Performed By: #### L 500.2500, L100.0100 ####[facility] [address] [place], [address] Urea nitrogen [Mass/Vol] 44 mg/dL High 4-19 [facility] Comment on above: Performed By: #### L 500.2500, L100.0100 ####[facility] [address] [place], [address] Blood polychromasia detectio n by light microscopyOrdered By: Hiren Sanders on 06-06-2025 Polychromasia LM Ql (Bld) 1+ [facility] CBC W/Diff, Automatedon 05-28 ACANTHOCYTE 1+ Normal [facility] Comment on above: Performed By: #### L 500.2500, L100.0100 ####[facility] [address] [place], [address] Anisocytosis Ql (Bld) 2+ Normal [facility] Comment on above: Performed By: #### L 500.2500, L100.0100 ####[facility] [address] [place], [address] OVALOCYTE 1+ Normal [facility] Comment on above: Performed By: #### L 500.2500, L100.0100 ####[facility] [address] [place], [address] PLT EST SLT INC Normal ADEQ [facility] Comment on above: Performed By: #### L 500.2500, L100.0100 ####[facility] [address] [place], [address] POLYCHROMASIA 1+ Normal [facility] Comment on above: Performed By: #### L 500.2500, L100.0100 ####[facility] [address] [place], [address] TARGET CELLS 1+ Normal [facility] Comment on above: Performed By: #### L 500.2500, L100.0100 ####[facility] [address] [place], [address] SMEAR COMMENT SCANNED Normal [facility] Comment on above: Performed By: #### L 500.2500, L100.0100 ####[facility] [address] [place], [address] Surgical pathology reportOrd ered By: Leonor Meadows on 06-06-2025 Surgical pathology study [facility] Target cell detectionOrdered By: Hiren Sanders on 06-06-2025 Target cells LM Ql (Bld) 1+ [facility] Basic Metabolic Profile (BMP )on 06-05-2025 BUN/CRE 20.3 RATIO High 10-20 [facility] Comment on above: Performed By: #### L 500.2500, L501.5200, L100.0100 ####[facility] [address] [place], [address] Calcium [Mass/Vol] 7.9 mg/dL Normal 7.6-11.0 [facility] Comment on above: Performed By: #### L 500.2500, L501.5200, L100.0100 ####[facility] [address] [place], [address] Chloride [Moles/Vol] 104 mmol/L Normal 98-108 [facility] Comment on above: Performed By: #### L 500.2500, L501.5200, L100.0100 ####[facility] [address] [place], [address] CO2 [Moles/Vol] 25.5 mmol/L Normal 21.0-32.0 [facility] Comment on above: Performed By: #### L 500.2500, L501.5200, L100.0100 ####[facility] [address] [place], [address] Creatinine [Mass/Vol] 1.74 mg/dL High 0.70-1.20 [facility] Comment on above: Performed By: #### L 500.2500, L501.5200, L100.0100 ####[facility] [address] [place], [address] ECRCL 36.77 ml/min Low 50-250 [facility] Comment on above: Performed By: #### L 500.2500, L501.5200, L100.0100 ####[facility] [address] [place], [address] GAP 13 Normal 5-15 [facility] Comment on above: Performed By: #### L 500.2500, L501.5200, L100.0100 ####[facility] [address] [place], [address] GFR/1.73 sq M.predicted among non-blacks MDRD (S/P/Bld) [Vol rate/Area] 33 mL/min/{1.73_m2} Low >60 [facility] Comment on above: Result Comment: mL/m in/1.73m2 CKD-EPI Creatinine Equation (2020) Performed By: #### L 500.2500, L501.5200, L100.0100 ####[facility] [address] [place], [address] Glucose [Mass/Vol] 94 mg/dL Normal 70-99 [facility] Comment on above: Performed By: #### L 500.2500, L501.5200, L100.0100 ####[facility] [address] [place], [address] Potassium [Moles/Vol] 3.6 mmol/L Normal 3.3-5.1 [facility] Comment on above: Performed By: #### L 500.2500, L501.5200, L100.0100 ####[facility] [address] [place], [address] Sodium [Moles/Vol] 142 mmol/L Normal 133-145 [facility] Comment on above: Performed By: #### L 500.2500, L501.5200, L100.0100 ####[facility] [address] [place], [address] Urea nitrogen [Mass/Vol] 35 mg/dL High 4-19 [facility] Comment on above: Performed By: #### L 500.2500, L501.5200, L100.0100 ####[facility] [address] [place], [address] CBC W/Diff, Automatedon 09-0 Anisocytosis Ql (Bld) 1+ Normal [facility] Comment on above: Performed By: #### L 500.2500, L501.5200, L100.0100 ####[facility] [address] [place], [address] HYPOCHROMASIA RARE Normal [facility] Comment on above: Performed By: #### L 500.2500, L501.5200, L100.0100 ####[facility] [address] [place], [address] OVALOCYTE RARE Normal [facility] Comment on above: Performed By: #### L 500.2500, L501.5200, L100.0100 ####[facility] [address] [place], [address] POLYCHROMASIA RARE Normal [facility] Comment on above: Performed By: #### L 500.2500, L501.5200, L100.0100 ####[facility] [address] [place], [address] SMEAR COMMENT SCANNED Normal [facility] Comment on above: Performed By: #### L 500.2500, L501.5200, L100.0100 ####[facility] [address] [place], [address] CTA Chest W/WO Contraston CTA Chest W/WO Contrast Normal [facility] L509.7001on 06-05-2025 Procalcitonin 0.29 ng/mL High <=0.10 [facility] Comment on above: Result Comment: Inte rpretation:<0.10-0.25 ng/mL: Antibiotic therapy discouraged. Bacterialinfection unlikely.0.25-0.50 ng/mL: Antibiotic therapy encouraged. Bacterialinfection possible.>0.50 ng/mL: Antibiotic therapy strongly encouraged.Suggestive of presence of bacterial infection.PCT should always be interpreted in the clinical context ofthe patient. Therefore, clinicians should use the PCTresults in conjunction with other laboratory findings andclinical signs of the patient. Performed By: #### L 509.7001, L503.7505 ####[facility] [address] [place], [address] Magnesiumon 06-05-2025 Magnesium [Mass/Vol] 2.1 mg/dL Normal 1.5-2.2 [facility] Comment on above: Performed By: #### L 500.2500, L501.5200, L100.0100 ####[facility] [address] [place], [address] Natriuretic peptide.B prohor courtney N-Terminal [Mass/volume] in Serum or PlasmaOrdered By: Julian Monsivais on 06-05-2025 Natriuretic peptide.B prohormone N-Terminal [Mass/Vol] 15472 pg/mL High <900 [facility] Phosphoruson 06-05-2025 Phosphate [Mass/Vol] 4.3 mg/dL Normal 2.7-4.5 [facility] Comment on above: Performed By: #### L 501.2300 ####[facility] [address] [place], [address] Pro- Brain NATRIURETIC PEPTI Rosalina 06-05-2025 Natriuretic peptide B (Bld) [Mass/Vol] 36558 pg/mL High <=900 [facility] Comment on above: Result Comment: Hear t Failure Unlikely: < 300 pg/mLHeart Failure Likely< 50 Years: > 450 pg/mL50-75 Years: > 900 pg/mL>75 Years: > 1800 pg/mL Performed By: #### L 509.7001, L503.5415 ####[facility] [address] [place], [place], [address] Procalcitonin [Mass/volume] in Serum or Plasma by ImmunoassayOrdered By: Julian Monsivais on 06-05-2025 Procalcitonin IA [Mass/Vol] 0.29 ng/mL High <0.11 [facility] Surgical Specimen Collection on 06-05-2025 Surg. Spec Cecil SEE PATHOLOGY REPORT Normal [facility] Comment on above: Order Comment: Order Date: 06/01/25Comments: Endometrial specimenReason for Laboratory Test BiospySPECIMEN WAS RECEIVED WEDNESDAY NIGHT ON FORMALIN WITH A NOTESAYING NO ORDERS WERE ENTERED, WAS TAKEN TO HISTOLOGYSATUR MORNING BY JAYDEN; ORDERS WERE THEN PUT INSATURDAY BY Result Comment: Spec imen submitted to Anatomical Pathology Department fortesting. Performed By: #### L 350.1700 ####[facility] [address] [place], [place], [address] Basic Metabolic Profile (BMP )on 06-04-2025 BUN/CRE 18.1 RATIO Normal 10-20 [facility] Comment on above: Performed By: #### L 100.0100, L500.2500 ####[facility] [address] [place], [address] Calcium [Mass/Vol] 8.1 mg/dL Normal 7.6-11.0 [facility] Comment on above: Performed By: #### L 100.0100, L500.2500 ####[facility] [address] [place], [address] Chloride [Moles/Vol] 108 mmol/L Normal 98-108 [facility] Comment on above: Performed By: #### L 100.0100, L500.2500 ####[facility] [address] [place], [address] CO2 [Moles/Vol] 23.5 mmol/L Normal 21.0-32.0 [facility] Comment on above: Performed By: #### L 100.0100, L500.2500 ####[facility] [address] [place], [address] Creatinine [Mass/Vol] 1.49 mg/dL High 0.70-1.20 [facility] Comment on above: Performed By: #### L 100.0100, L500.2500 ####[facility] [address] [place], [address] ECRCL 42.94 ml/min Low 50-250 [facility] Comment on above: Performed By: #### L 100.0100, L500.2500 ####[facility] [address] [place], [address] GAP 11 Normal 5-15 [facility] Comment on above: Performed By: #### L 100.0100, L500.2500 ####[facility] [address] [place], [address] GFR/1.73 sq M.predicted among non-blacks MDRD (S/P/Bld) [Vol rate/Area] 40 mL/min/{1.73_m2} Low >60 [facility] Comment on above: Result Comment: mL/m in/1.73m2 CKD-EPI Creatinine Equation (2020) Performed By: #### L 100.0100, L500.2500 ####[facility] [address] [place], [address] Glucose [Mass/Vol] 84 mg/dL Normal 70-99 [facility] Comment on above: Performed By: #### L 100.0100, L500.2500 ####[facility] [address] [place], [address] Potassium [Moles/Vol] 4.3 mmol/L Normal 3.3-5.1 [facility] Comment on above: Performed By: #### L 100.0100, L500.2500 ####[facility] [address] [place], [address] Sodium [Moles/Vol] 142 mmol/L Normal 133-145 [facility] Comment on above: Performed By: #### L 100.0100, L500.2500 ####[facility] [address] [place], [address] Urea nitrogen [Mass/Vol] 27 mg/dL High 4-19 [facility] Comment on above: Performed By: #### L 100.0100, L500.2500 ####[facility] [address] [place], [address] CBC W/Diff, Automatedon 09-0 OVALOCYTE 1+ Normal [facility] Comment on above: Performed By: #### L 100.0100, L500.2500 ####[facility] [address] [place], [address] PLT MORPH ADEQ Normal [facility] Comment on above: Performed By: #### L 100.0100, L500.2500 ####[facility] [address] [place], [address] Anisocytosis Ql (Bld) 2+ Normal [facility] Comment on above: Performed By: #### L 100.0100, L500.2500 ####[facility] [address] [place], [address] POLYCHROMASIA 1+ Normal [facility] Comment on above: Performed By: #### L 100.0100, L500.2500 ####[facility] [address] [place], [address] TARGET CELLS 1+ Normal [facility] Comment on above: Performed By: #### L 100.0100, L500.2500 ####[facility] [address] [place], [address] Platelet morphologyOrdered B y: Yanet Zhou on 06-04-2025 Platelet morphology finding Nom (Bld) ADEQ [facility] Basic Metabolic Profile (BMP )on 06-03-2025 BUN/CRE 19.8 RATIO Normal 10-20 [facility] Comment on above: Performed By: #### L 501.5200, L100.0100, L500.2500 ####[facility] [address] [place], [address] Calcium [Mass/Vol] 7.8 mg/dL Normal 7.6-11.0 [facility] Comment on above: Performed By: #### L 501.5200, L100.0100, L500.2500 ####[facility] [address] [place], [address] Chloride [Moles/Vol] 109 mmol/L High 98-108 [facility] Comment on above: Performed By: #### L 501.5200, L100.0100, L500.2500 ####[facility] [address] [place], [address] CO2 [Moles/Vol] 21.8 mmol/L Normal 21.0-32.0 [facility] Comment on above: Performed By: #### L 501.5200, L100.0100, L500.2500 ####[facility] [address] [place], [address] Creatinine [Mass/Vol] 1.30 mg/dL High 0.70-1.20 [facility] Comment on above: Performed By: #### L 501.5200, L100.0100, L500.2500 ####[facility] [address] [place], [address] ECRCL 48.78 ml/min Low 50-250 [facility] Comment on above: Performed By: #### L 501.5200, L100.0100, L500.2500 ####[facility] [address] [place], [address] GAP 11 Normal 5-15 [facility] Comment on above: Performed By: #### L 501.5200, L100.0100, L500.2500 ####[facility] [address] [place], [address] GFR/1.73 sq M.predicted among non-blacks MDRD (S/P/Bld) [Vol rate/Area] 47 mL/min/{1.73_m2} Low >60 [facility] Comment on above: Result Comment: mL/m in/1.73m2 CKD-EPI Creatinine Equation (2020) Performed By: #### L 501.5200, L100.0100, L500.2500 ####[facility] [address] [place], [address] Glucose [Mass/Vol] 88 mg/dL Normal 70-99 [facility] Comment on above: Performed By: #### L 501.5200, L100.0100, L500.2500 ####[facility] [address] [place], [address] Potassium [Moles/Vol] 3.8 mmol/L Normal 3.3-5.1 [facility] Comment on above: Performed By: #### L 501.5200, L100.0100, L500.2500 ####[facility] [address] [place], [address] Sodium [Moles/Vol] 142 mmol/L Normal 133-145 [facility] Comment on above: Performed By: #### L 501.5200, L100.0100, L500.2500 ####[facility] [address] [place], [address] Urea nitrogen [Mass/Vol] 26 mg/dL High 4-19 [facility] Comment on above: Performed By: #### L 501.5200, L100.0100, L500.2500 ####[facility] [address] [place], [address] CBC W/Diff, Automatedon 09-0 SMEAR COMMENT SCANNED Normal [facility] Comment on above: Performed By: #### L 501.5200, L100.0100, L500.2500 ####[facility] [address] [place], [address] Cancer Antigen 125on 025 CA 125 87.4 U/mL High 0.0-38.1 [facility] Comment on above: Result Comment: [employer] Electrochemiluminescence Immunoassay(ECLIA)Values obtained with different assay methods or kits cannotbe used interchangeably. Results cannot be interpreted asabsolute evidence of the presence or absence of malignantdisease.Performed at: [facility] [employer] [id number] Director: Parag Richard PhD, Phone: [phone] Performed By: #### L 1910.8450, V4338.6601 ####[facility] [address] [place], [address] Carcinoembryonic Antigenon 0 06-03-2025 CEA 1.3 ng/mL Normal 0.0-4.7 [facility] Comment on above: Result Comment: Nons mokers <3.9 Smokers <5.6[employer] Electrochemiluminescence Immunoassay(ECLIA)Values obtained with different assay methods or kitscannot be used interchangeably. Results cannot beinterpreted as absolute evidence of the presence orabsence of malignant disease. Performed By: #### L 3100.2300, L3100.5000 ####[facility] [address] [place], [address] Magnesiumon 06-03-2025 Magnesium [Mass/Vol] 2.5 mg/dL High 1.5-2.2 [facility] Comment on above: Performed By: #### L 501.5200, L100.0100, L500.2500 ####[facility] [address] [place], [address] Basic Metabolic Profile (BMP )on 06-02-2025 BUN/CRE 19.7 RATIO Normal 10-20 [facility] Comment on above: Performed By: #### L 500.2500, L100.0100 ####[facility] [address] [place], [address] Calcium [Mass/Vol] 7.6 mg/dL Normal 7.6-11.0 [facility] Comment on above: Performed By: #### L 500.2500, L100.0100 ####[facility] [address] [place], [address] Chloride [Moles/Vol] 109 mmol/L High 98-108 [facility] Comment on above: Performed By: #### L 500.2500, L100.0100 ####[facility] [address] [place], [address] CO2 [Moles/Vol] 21.7 mmol/L Normal 21.0-32.0 [facility] Comment on above: Performed By: #### L 500.2500, L100.0100 ####[facility] [address] [place], [address] Creatinine [Mass/Vol] 1.28 mg/dL High 0.70-1.20 [facility] Comment on above: Performed By: #### L 500.2500, L100.0100 ####[facility] [address] [place], [address] ECRCL 49.55 ml/min Low 50-250 [facility] Comment on above: Performed By: #### L 500.2500, L100.0100 ####[facility] [address] [place], [address] GAP 10 Normal 5-15 [facility] Comment on above: Performed By: #### L 500.2500, L100.0100 ####[facility] [address] [place], [address] GFR/1.73 sq M.predicted among non-blacks MDRD (S/P/Bld) [Vol rate/Area] 48 mL/min/{1.73_m2} Low >60 [facility] Comment on above: Result Comment: mL/m in/1.73m2 CKD-EPI Creatinine Equation (2020) Performed By: #### L 500.2500, L100.0100 ####[facility] [address] [place], [address] Glucose [Mass/Vol] 100 mg/dL High 70-99 [facility] Comment on above: Performed By: #### L 500.2500, L100.0100 ####[facility] [address] [place], [address] Potassium [Moles/Vol] 3.4 mmol/L Normal 3.3-5.1 [facility] Comment on above: Performed By: #### L 500.2500, L100.0100 ####[facility] [address] [place], [address] Sodium [Moles/Vol] 141 mmol/L Normal 133-145 [facility] Comment on above: Performed By: #### L 500.2500, L100.0100 ####[facility] [address] [place], [address] Urea nitrogen [Mass/Vol] 25 mg/dL High 4-19 [facility] Comment on above: Performed By: #### L 500.2500, L100.0100 ####[facility] [address] [place], [address] CBC W/Diff, Automatedon 09-0 SMEAR COMMENT SCANNED Normal [facility] Comment on above: Performed By: #### L 500.2500, L100.0100 ####[facility] [address], [address] CXR for Line Placementon CXR for Line Placement Normal [facility] Consultation - Cardiologyon 06-02-2025 Consultation - Cardiology Normal [facility] Magnesiumon 06-02-2025 Magnesium [Mass/Vol] 1.8 mg/dL Normal 1.5-2.2 [facility] Comment on above: Order Comment: SAG1 4 J Performed By: #### L 501.5200 ####[facility] [address] [place], [address] Serum or plasma carcinoembry onic antigen measurement (mass/volume)Ordered By: Eloisa More on 06-02-2025 Carcinoembryonic Ag [Mass/Vol] 1.3 ng/mL 0.0-4.7 [facility] Surgery Specimen Level Stanley 06-02-2025 Surgery Specimen Level IV Normal [facility] Comment on above: Performed By: #### P SUIV ####[facility] [address] [place], [address] Basic Metabolic Profile (BMP )on 06-01-2025 BUN/CRE 16.5 RATIO Normal 10-20 [facility] Comment on above: Performed By: #### L 100.0100, L500.2500 ####[facility] [address] [place], [address] Calcium [Mass/Vol] 7.3 mg/dL Low 7.6-11.0 [facility] Comment on above: Performed By: #### L 100.0100, L500.2500 ####[facility] [address] [place], [address] Chloride [Moles/Vol] 112 mmol/L High 98-108 [facility] Comment on above: Performed By: #### L 100.0100, L500.2500 ####[facility] [address] [place], [address] CO2 [Moles/Vol] 20.2 mmol/L Low 21.0-32.0 [facility] Comment on above: Performed By: #### L 100.0100, L500.2500 ####[facility] [address] [place], [address] Creatinine [Mass/Vol] 1.34 mg/dL High 0.70-1.20 [facility] Comment on above: Performed By: #### L 100.0100, L500.2500 ####[facility] [address] [place], [address] ECRCL 48.22 ml/min Low 50-250 [facility] Comment on above: Performed By: #### L 100.0100, L500.2500 ####[facility] [address] [place], [address] GAP 9 Normal 5-15 [facility] Comment on above: Performed By: #### L 100.0100, L500.2500 ####[facility] [address] [place], [address] GFR/1.73 sq M.predicted among non-blacks MDRD (S/P/Bld) [Vol rate/Area] 45 mL/min/{1.73_m2} Low >60 [facility] Comment on above: Result Comment: mL/m in/1.73m2 CKD-EPI Creatinine Equation (2020) Performed By: #### L 100.0100, L500.2500 ####[facility] [address] [place], [address] Glucose [Mass/Vol] 108 mg/dL High 70-99 [facility] Comment on above: Performed By: #### L 100.0100, L500.2500 ####[facility] [address] [place], [address] Potassium [Moles/Vol] 3.7 mmol/L Normal 3.3-5.1 [facility] Comment on above: Performed By: #### L 100.0100, L500.2500 ####[facility] [address] [place], [address] Sodium [Moles/Vol] 141 mmol/L Normal 133-145 [facility] Comment on above: Performed By: #### L 100.0100, L500.2500 ####[facility] [address] [place], [address] Urea nitrogen [Mass/Vol] 22 mg/dL High 4-19 [facility] Comment on above: Performed By: #### L 100.0100, L500.2500 ####[facility] [address] [place], [address] CBC W/Diff, Automatedon Anisocytosis Ql (Bld) 1+ Normal [facility] Comment on above: Performed By: #### L 100.0100, L500.2500 ####[facility] [address] [place], [address] Cervical or vagninal specime n microscopic examination by cytology stain (reported asOrdered By: Eloisa More on 06-01-2025 Cytology report Cyto stain Doc (Cvx/Vag) Comment . [facility] Consultation - OB/GYNon Consultation - S[employer]ER Normal [facility] Detection in cervical specim en of any of human papilloma virus (HPV) 16, 18, 31, 33,Ordered By: Eloisa More on 06-01-2025 HPV 16+18+31+33+35+39+45+51 +52+56+58+59+66+68 DNA Probe+sig amp Ql (Cvx) Negative Negative [facility] Laboratory - CytologyOrdered By: Eloisa More on 06-01-2025 Manager Cardiovascular Cyto stain Nom (Cvx/Vag) [ID] Comment . [facility] Pathologist Cyto stain Nom (Cvx/Vag) [ID] Comment . [facility] Recommended follow-up Cyto stain Nom (Cvx/Vag) Comment High . [facility] Laboratory - Miscellaneous t estsOrdered By: Eloisa More on 06-01-2025 Service comment (Unsp spec) [Interp] . . [facility] Magnesiumon 06-01-2025 Magnesium [Mass/Vol] 2.0 mg/dL Normal 1.5-2.2 [facility] Comment on above: Performed By: #### L 501.5200 ####[facility] [address] [place], [place], [id number] No Panel InformationOrdered By: Eloisa More on 06-01-2025 Pathology report final diagnosis Narrative Comment . [facility] Comment . [facility] Transvaginal Non-on 06-01-2025 Transvaginal Non- Normal [facility] Basic Metabolic Profile (BMP )on 05-31-2025 BUN/CRE 18.6 RATIO Normal 10-20 [facility] Comment on above: Performed By: #### L 100.0100, L500.2500 ####[facility] [address] [place], [place], [id number] Calcium [Mass/Vol] 7.3 mg/dL Low 7.6-11.0 [facility] Comment on above: Performed By: #### L 100.0100, L500.2500 ####[facility] [address] [place], [address] Chloride [Moles/Vol] 110 mmol/L High 98-108 [facility] Comment on above: Performed By: #### L 100.0100, L500.2500 ####[facility] [address] [place], [address] CO2 [Moles/Vol] 21.4 mmol/L Normal 21.0-32.0 [facility] Comment on above: Performed By: #### L 100.0100, L500.2500 ####[facility] [address] [place], [address] Creatinine [Mass/Vol] 1.11 mg/dL Normal 0.70-1.20 [facility] Comment on above: Performed By: #### L 100.0100, L500.2500 ####[facility] [address] [place], [address] ECRCL 55.86 ml/min Normal 50-250 [facility] Comment on above: Performed By: #### L 100.0100, L500.2500 ####[facility] [address] [place], [address] GAP 9 Normal 5-15 [facility] Comment on above: Performed By: #### L 100.0100, L500.2500 ####[facility] [address] [place], [address] GFR/1.73 sq M.predicted among non-blacks MDRD (S/P/Bld) [Vol rate/Area] 57 mL/min/{1.73_m2} Low >60 [facility] Comment on above: Result Comment: mL/m in/1.73m2 CKD-EPI Creatinine Equation (2020) Performed By: #### L 100.0100, L500.2500 ####[facility] [address] [place], [address] Glucose [Mass/Vol] 92 mg/dL Normal 70-99 [facility] Comment on above: Performed By: #### L 100.0100, L500.2500 ####[facility] [address] [place], [address] Potassium [Moles/Vol] 3.7 mmol/L Normal 3.3-5.1 [facility] Comment on above: Performed By: #### L 100.0100, L500.2500 ####[facility] [address] [place], [address] Sodium [Moles/Vol] 140 mmol/L Normal 133-145 [facility] Comment on above: Performed By: #### L 100.0100, L500.2500 ####[facility] [address] [place], [address] Urea nitrogen [Mass/Vol] 21 mg/dL High 4-19 [facility] Comment on above: Performed By: #### L 100.0100, L500.2500 ####[facility] [address] [place], [address] CBC W/Diff, Automatedon 09-0 Anisocytosis Ql (Bld) 1+ Normal [facility] Comment on above: Performed By: #### L 100.0100, L500.2500 ####[facility] [address] [place], [address] Basic Metabolic Profile (BMP )on 05-30-2025 BUN/CRE 19.0 RATIO Normal 10-20 [facility] Comment on above: Performed By: #### L 100.0100, L500.2500 ####[facility] [address] [place], [address] Calcium [Mass/Vol] 7.5 mg/dL Low 7.6-11.0 [facility] Comment on above: Performed By: #### L 100.0100, L500.2500 ####[facility] [address] [place], [address] Chloride [Moles/Vol] 108 mmol/L Normal 98-108 [facility] Comment on above: Performed By: #### L 100.0100, L500.2500 ####[facility] [address] [place], [address] CO2 [Moles/Vol] 23.3 mmol/L Normal 21.0-32.0 [facility] Comment on above: Performed By: #### L 100.0100, L500.2500 ####[facility] [address] [place], [address] Creatinine [Mass/Vol] 1.12 mg/dL Normal 0.70-1.20 [facility] Comment on above: Performed By: #### L 100.0100, L500.2500 ####[facility] [address] [place], [address] ECRCL 55.36 ml/min Normal 50-250 [facility] Comment on above: Performed By: #### L 100.0100, L500.2500 ####[facility] [address] [place], [address] GAP 10 Normal 5-15 [facility] Comment on above: Performed By: #### L 100.0100, L500.2500 ####[facility] [address] [place], [address] GFR/1.73 sq M.predicted among non-blacks MDRD (S/P/Bld) [Vol rate/Area] 56 mL/min/{1.73_m2} Low >60 [facility] Comment on above: Result Comment: mL/m in/1.73m2 CKD-EPI Creatinine Equation (2020) Performed By: #### L 100.0100, L500.2500 ####[facility] [address] [place], [address] Glucose [Mass/Vol] 75 mg/dL Normal 70-99 [facility] Comment on above: Performed By: #### L 100.0100, L500.2500 ####[facility] [address] [place], [address] Potassium [Moles/Vol] 3.0 mmol/L Low 3.3-5.1 [facility] Comment on above: Performed By: #### L 100.0100, L500.2500 ####[facility] [address] [place], [address] Sodium [Moles/Vol] 141 mmol/L Normal 133-145 [facility] Comment on above: Performed By: #### L 100.0100, L500.2500 ####[facility] [address] [place], [address] Urea nitrogen [Mass/Vol] 21 mg/dL High 4-19 [facility] Comment on above: Performed By: #### L 100.0100, L500.2500 ####[facility] [address] [place], [address] CBC W/Diff, Automatedon 09-0 SMEAR COMMENT COMMENT Normal [facility] Comment on above: Result Comment: SLID E SCANNED - DIMORPHIC RBC POPULATION SEEN ON SLIDEREVIEW. Performed By: #### L 100.0100, L500.2500 ####[facility] [address] [place], [address] MR/PN.GIon 05-30-2025 MR/PN.GI Normal [facility] Magnesiumon 05-30-2025 Magnesium [Mass/Vol] 2.0 mg/dL Normal 1.5-2.2 [facility] Comment on above: Performed By: #### L 501.5200 ####[facility] [address] [place], [address] Basic Metabolic Profile (BMP )on 05-29-2025 BUN/CRE 19.0 RATIO Normal 10-20 [facility] Comment on above: Order Comment: PATIE NT IN SWALLOW STUDY, AMPARO RN SAID SHE WILL CALL WHENPATIENT RETURNS TO FLOOR 1438 TAMSTUTZcheck after IV KCl is done infusion Performed By: #### L 501.5200, L500.2500 ####[facility] [address] [place], [address] Calcium [Mass/Vol] 8.0 mg/dL Normal 7.6-11.0 [facility] Comment on above: Order Comment: PATIE NT IN SWALLOW STUDY, AMPARO RN SAID SHE WILL CALL WHENPATIENT RETURNS TO FLOOR 1438 TAMSTUTZcheck after IV KCl is done infusion Performed By: #### L 501.5200, L500.2500 ####[facility] [address] [place], [address] Chloride [Moles/Vol] 110 mmol/L High 98-108 [facility] Comment on above: Order Comment: PATIE NT IN SWALLOW STUDY, AMPARO RN SAID SHE WILL CALL WHENPATIENT RETURNS TO FLOOR 1438 TAMSTUTZcheck after IV KCl is done infusion Performed By: #### L 501.5200, L500.2500 ####[facility] [address] [place], [address] CO2 [Moles/Vol] 22.3 mmol/L Normal 21.0-32.0 [facility] Comment on above: Order Comment: PATIE NT IN SWALLOW STUDY, AMPARO RN SAID SHE WILL CALL WHENPATIENT RETURNS TO FLOOR 1438 TAMSTUTZcheck after IV KCl is done infusion Performed By: #### L 501.5200, L500.2500 ####[facility] [address] [place], [address] Creatinine [Mass/Vol] 1.10 mg/dL Normal 0.70-1.20 [facility] Comment on above: Order Comment: PATIE NT IN SWALLOW STUDY, AMPARO RN SAID SHE WILL CALL WHENPATIENT RETURNS TO FLOOR 1438 TAMSTUTZcheck after IV KCl is done infusion Performed By: #### L 501.5200, L500.2500 ####[facility] [address] [place], [address] ECRCL 56.74 ml/min Normal 50-250 [facility] Comment on above: Order Comment: PREETHI NT IN SWALLOW STUDY, AMPARO RN SAID SHE WILL CALL WHENPATIENT RETURNS TO FLOOR 1438 TAMSTUTZcheck after IV KCl is done infusion Performed By: #### L 501.5200, L500.2500 ####[facility] [address] [place], [address] GAP 11 Normal 5-15 [facility] Comment on above: Order Comment: PREETHI NT IN SWALLOW STUDY, AMPARO RN SAID SHE WILL CALL WHENPATIENT RETURNS TO FLOOR 1438 TAMSTUTZcheck after IV KCl is done infusion Performed By: #### L 501.5200, L500.2500 ####[facility] [address] [place], [address] GFR/1.73 sq M.predicted among non-blacks MDRD (S/P/Bld) [Vol rate/Area] 57 mL/min/{1.73_m2} Low >60 [facility] Comment on above: Order Comment: PREETHI NT IN SWALLOW STUDY, AMPARO RN SAID SHE WILL CALL WHENPATIENT RETURNS TO FLOOR 1438 TAMSTUTZcheck after IV KCl is done infusion Result Comment: mL/m in/1.73m2 CKD-EPI Creatinine Equation (2020) Performed By: #### L 501.5200, L500.2500 ####[facility] [address] [place], [address] Glucose [Mass/Vol] 90 mg/dL Normal 70-99 [facility] Comment on above: Order Comment: PREETHI NT IN SWALLOW STUDY, AMPARO RN SAID SHE WILL CALL WHENPATIENT RETURNS TO FLOOR 1438 TAMSTUTZcheck after IV KCl is done infusion Performed By: #### L 501.5200, L500.2500 ####[facility] [address] [place], [address] Potassium [Moles/Vol] 3.8 mmol/L Normal 3.3-5.1 [facility] Comment on above: Order Comment: PREETHI NT IN SWALLOW STUDY, AMPARO RN SAID SHE WILL CALL WHENPATIENT RETURNS TO FLOOR 1438 TAMSTUTZcheck after IV KCl is done infusion Result Comment: Hemo lysis present, Results??could be affected.?? Performed By: #### L 501.5200, L500.2500 ####[facility] [address] [place], [address] Sodium [Moles/Vol] 144 mmol/L Normal 133-145 [facility] Comment on above: Order Comment: PREETHI NT IN SWALLOW STUDY, AMPARO RN SAID SHE WILL CALL WHENPATIENT RETURNS TO FLOOR 1438 TAMSTUTZcheck after IV KCl is done infusion Performed By: #### L 501.5200, L500.2500 ####[facility] [address] [place], [address] Urea nitrogen [Mass/Vol] 21 mg/dL High 4-19 [facility] Comment on above: Order Comment: PREETHI NT IN SWALLOW STUDY, AMPARO RN SAID SHE WILL CALL WHENPATIENT RETURNS TO FLOOR 1438 TAMSTUTZcheck after IV KCl is done infusion Performed By: #### L 501.5200, L500.2500 ####[facility] [address] [place], [address] BUN/CRE 18.5 RATIO Normal 10-20 [facility] Comment on above: Performed By: #### L 100.0100, L500.2500 ####[facility] [address] [place], [address] Calcium [Mass/Vol] 8.0 mg/dL Normal 7.6-11.0 [facility] Comment on above: Performed By: #### L 100.0100, L500.2500 ####[facility] [address] [place], [address] Chloride [Moles/Vol] 112 mmol/L High 98-108 [facility] Comment on above: Performed By: #### L 100.0100, L500.2500 ####[facility] [address] [place], [address] CO2 [Moles/Vol] 25.7 mmol/L Normal 21.0-32.0 [facility] Comment on above: Performed By: #### L 100.0100, L500.2500 ####[facility] [address] [place], [address] Creatinine [Mass/Vol] 1.24 mg/dL High 0.70-1.20 [facility] Comment on above: Performed By: #### L 100.0100, L500.2500 ####[facility] [address] [place], [address] ECRCL 50.33 ml/min Normal 50-250 [facility] Comment on above: Performed By: #### L 100.0100, L500.2500 ####[facility] [address] [place], [address] GAP 10 Normal 5-15 [facility] Comment on above: Performed By: #### L 100.0100, L500.2500 ####[facility] [address] [place], [address] GFR/1.73 sq M.predicted among non-blacks MDRD (S/P/Bld) [Vol rate/Area] 50 mL/min/{1.73_m2} Low >60 [facility] Comment on above: Result Comment: mL/m in/1.73m2 CKD-EPI Creatinine Equation (2020) Performed By: #### L 100.0100, L500.2500 ####[facility] [address] [place], [address] Glucose [Mass/Vol] 94 mg/dL Normal 70-99 [facility] Comment on above: Performed By: #### L 100.0100, L500.2500 ####[facility] [address] [place], [address] Potassium [Moles/Vol] 2.8 mmol/L Low 3.3-5.1 [facility] Comment on above: Performed By: #### L 100.0100, L500.2500 ####[facility] [address] [place], [address] Sodium [Moles/Vol] 147 mmol/L High 133-145 [facility] Comment on above: Performed By: #### L 100.0100, L500.2500 ####[facility] [address] [place], [address] Urea nitrogen [Mass/Vol] 23 mg/dL High 4-19 [facility] Comment on above: Performed By: #### L 100.0100, L500.2500 ####[facility] [address] [place], [address] CBC W/Diff, Automatedon 09-0 ACANTHOCYTE RARE Normal [facility] Comment on above: Performed By: #### L 100.0100, L500.2500 ####[facility] [address] [place], [address] Anisocytosis Ql (Bld) 3+ Normal [facility] Comment on above: Performed By: #### L 100.0100, L500.2500 ####[facility] [address] [place], [address] MICROCYTIC 1+ Normal [facility] Comment on above: Performed By: #### L 100.0100, L500.2500 ####[facility] [address] [place], [address] PLT EST ADEQUATE Normal ADEQ [facility] Comment on above: Performed By: #### L 100.0100, L500.2500 ####[facility] [address] [place], [address] PLT MORPH LARGE Normal [facility] Comment on above: Performed By: #### L 100.0100, L500.2500 ####[facility] [address] [place], [address] POLYCHROMASIA 1+ Normal [facility] Comment on above: Performed By: #### L 100.0100, L500.2500 ####[facility] [address] [place], [address] SMEAR COMMENT SCANNED Normal [facility] Comment on above: Performed By: #### L 100.0100, L500.2500 ####[facility] [address] [place], [address] TARGET CELLS 1+ Normal [facility] Comment on above: Performed By: #### L 100.0100, L500.2500 ####[facility] [address] [place], [address] TEAR DROP RARE Normal [facility] Comment on above: Performed By: #### L 100.0100, L500.2500 ####[facility] [address] [place], [address] CDIFF (PCR)on 05-29-2025 CDIFF Is the patient recei ving laxatives? N New/unexplained onset of 3 or more stools in past 24 hrs? Y Pending 027 027 NAP1-B1 Presumptive Negative *for epidemiolologic???use C. Diff PCR Negative- No toxigenic C. Diff Detected Normal [facility] Comment on above: Performed By: #### M 100.6796, M100.637 ####[facility] [address] [place], [address] Clostridium difficile detect ion by polymerase chain reactionOrdered By: Yanet Zhou on 05-29-2025 C. difficile DNA HESHAM+probe Ql (Unsp spec) [facility] ENTERIC PATHOGEN PANEL STOOL on 05-29-2025 EP PANEL Normal [facility] Comment on above: Performed By: #### M 100.6796, M100.637 ####[facility] [address] [place], [address] Magnesiumon 05-29-2025 Magnesium [Mass/Vol] 2.1 mg/dL Normal 1.5-2.2 [facility] Comment on above: Order Comment: PREETHI NT IN SWALLOW STUDY, AMPARO RN SAID SHE WILL CALL WHENPATIENT RETURNS TO FLOOR 1438 TAMSTUTZ Performed By: #### L 501.5200, L500.2500 ####[facility] [address] [place], [address] Magnesium [Mass/Vol] 2.0 mg/dL Normal 1.5-2.2 [facility] Comment on above: Order Comment: Comme nts: may add to ED labs Performed By: #### L 501.5200 ####[facility] [address], [address] Modified Barium Swallow Stud yon 05-29-2025 Modified Barium Swallow Study Normal [facility] Teardrop cell detectionOrder ed By: Yanet Zhou on 05-29-2025 Dacrocytes LM Ql (Bld) RARE [facility] Basic Metabolic Profile (BMP )on 05-28-2025 BUN/CRE 20.9 RATIO High 10-20 [facility] Comment on above: Performed By: #### L 500.2500 ####[facility] [address] [place], [address] Calcium [Mass/Vol] 8.0 mg/dL Normal 7.6-11.0 [facility] Comment on above: Performed By: #### L 500.2500 ####[facility] [address] [place], [address] Chloride [Moles/Vol] 119 mmol/L High 98-108 [facility] Comment on above: Performed By: #### L 500.2500 ####[facility] [address] [place], [address] CO2 [Moles/Vol] 23.4 mmol/L Normal 21.0-32.0 [facility] Comment on above: Performed By: #### L 500.2500 ####[facility] [address] [place], [address] Creatinine [Mass/Vol] 1.30 mg/dL High 0.70-1.20 [facility] Comment on above: Performed By: #### L 500.2500 ####[facility] [address] [place], [address] ECRCL 47.69 ml/min Low 50-250 [facility] Comment on above: Performed By: #### L 500.2500 ####[facility] [address] [place], [address] GAP 10 Normal 5-15 [facility] Comment on above: Performed By: #### L 500.2500 ####[facility] [address] [place], [address] GFR/1.73 sq M.predicted among non-blacks MDRD (S/P/Bld) [Vol rate/Area] 47 mL/min/{1.73_m2} Low >60 [facility] Comment on above: Result Comment: mL/m in/1.73m2 CKD-EPI Creatinine Equation (2020) Performed By: #### L 500.2500 ####[facility] [address] [place], [address] Glucose [Mass/Vol] 96 mg/dL Normal 70-99 [facility] Comment on above: Performed By: #### L 500.2500 ####[facility] [address] [place], [address] Potassium [Moles/Vol] 3.5 mmol/L Normal 3.3-5.1 [facility] Comment on above: Performed By: #### L 500.2500 ####[facility] [address] [place], [address] Sodium [Moles/Vol] 152 mmol/L High 133-145 [facility] Comment on above: Performed By: #### L 500.2500 ####[facility] [address] [place], [address] Urea nitrogen [Mass/Vol] 27 mg/dL High 4-19 [facility] Comment on above: Performed By: #### L 500.2500 ####[facility] [address] [place], [address] BUN Normal 4-19 [facility] Comment on above: Result Comment: This specimen has been REJECTED due to Laboratory criteria:Hemolyzed.NO ONE TO NOTIFY OF need of recollection.05/28/25537 Apolinar R Springer Performed By: #### L 100.0100, L500.2500 ####[facility] [address] [facility] [address] BUN/CRE Normal 10-20 [facility] Comment on above: Result Comment: This specimen has been REJECTED due to Laboratory criteria:Hemolyzed.NO ONE TO NOTIFY OF need of recollection.05/28/25537 Apolinar R Springer Performed By: #### L 100.0100, L500.2500 ####[facility] [address] [place], [address] Calcium Normal 7.6-11.0 [facility] Comment on above: Result Comment: This specimen has been REJECTED due to Laboratory criteria:Hemolyzed.NO ONE TO NOTIFY OF need of recollection.05/28/25537 Apolinar R Springer Performed By: #### L 100.0100, L500.2500 ####[facility] [address] [place], [address] CL Normal 98-108 [facility] Comment on above: Result Comment: This specimen has been REJECTED due to Laboratory criteria:Hemolyzed.NO ONE TO NOTIFY OF need of recollection.05/28/25537 Apolinar R Springer Performed By: #### L 100.0100, L500.2500 ####[facility] [address] [place], [address] CO2 Normal 21.0-32.0 [facility] Comment on above: Result Comment: This specimen has been REJECTED due to Laboratory criteria:Hemolyzed.NO ONE TO NOTIFY OF need of recollection.05/28/25537 Apolinar R Springer Performed By: #### L 100.0100, L500.2500 ####[facility] [address] [place], [address] CREAT,SERUM Normal 0.70-1.20 [facility] Comment on above: Result Comment: This specimen has been REJECTED due to Laboratory criteria:Hemolyzed.NO ONE TO NOTIFY OF need of recollection.05/28/25537 Apolinar R Springer Performed By: #### L 100.0100, L500.2500 ####[facility] [address] [place], [address] eGFR Normal >60 [facility] Comment on above: Result Comment: This specimen has been REJECTED due to Laboratory criteria:Hemolyzed.NO ONE TO NOTIFY OF need of recollection.05/28/25537 Apolinar R Springer Performed By: #### L 100.0100, L500.2500 ####[facility] [address] [place], [address] GAP Normal 5-15 [facility] Comment on above: Result Comment: This specimen has been REJECTED due to Laboratory criteria:Hemolyzed.NO ONE TO NOTIFY OF need of recollection.05/28/25537 Apolinar R Springer Performed By: #### L 100.0100, L500.2500 ####[facility] [address] [place], [address] GLU Normal 70-99 [facility] Comment on above: Result Comment: This specimen has been REJECTED due to Laboratory criteria:Hemolyzed.NO ONE TO NOTIFY OF need of recollection.05/28/25537 Apolinar R Springer Performed By: #### L 100.0100, L500.2500 ####[facility] [address] [place], [address] Potassium Normal 3.3-5.1 [facility] Comment on above: Result Comment: This specimen has been REJECTED due to Laboratory criteria:Hemolyzed.NO ONE TO NOTIFY OF need of recollection.05/28/25537 Apolinar R Springer Performed By: #### L 100.0100, L500.2500 ####[facility] [address] [place], [address] Basic Metabolic Profile (BMP) Normal 133-145 [facility] Comment on above: Result Comment: This specimen has been REJECTED due to Laboratory criteria:Hemolyzed.NO ONE TO NOTIFY OF need of recollection.05/28/25537 Apolinar R Springer Performed By: #### L 100.0100, L500.2500 ####[facility] [address] [place], [address] CBC W/Diff, Automatedon 09-0 ACANTHOCYTE 1+ Normal [facility] Comment on above: Performed By: #### L 100.0100, L500.2500 ####[facility] [address] [place], [address] Anisocytosis Ql (Bld) 3+ Normal [facility] Comment on above: Performed By: #### L 100.0100, L500.2500 ####[facility] [address] [place], [address] CRENATED RBC 1+ Normal [facility] Comment on above: Performed By: #### L 100.0100, L500.2500 ####[facility] [address] [place], [address] HYPOCHROMASIA 1+ Normal [facility] Comment on above: Performed By: #### L 100.0100, L500.2500 ####[facility] [address] [place], [address] MACROCYTOSIS 1+ Normal [facility] Comment on above: Performed By: #### L 100.0100, L500.2500 ####[facility] [address] [place], [address] MICROCYTIC 1+ Normal [facility] Comment on above: Performed By: #### L 100.0100, L500.2500 ####[facility] [address] [place], [address] OVALOCYTE 1+ Normal [facility] Comment on above: Performed By: #### L 100.0100, L500.2500 ####[facility] [address] [place], [address] PLT EST ADEQUATE Normal ADEQ [facility] Comment on above: Performed By: #### L 100.0100, L500.2500 ####[facility] [address] [place], [address] PLT MORPH CLUMPED Normal [facility] Comment on above: Performed By: #### L 100.0100, L500.2500 ####[facility] [address] [place], [address] POLYCHROMASIA 1+ Normal [facility] Comment on above: Performed By: #### L 100.0100, L500.2500 ####[facility] [address] [place], [address] SMEAR COMMENT SCANNED Normal [facility] Comment on above: Performed By: #### L 100.0100, L500.2500 ####[facility] [address] [place], [address] Chest 1 View (Portable)on Chest 1 View (Portable) Normal [facility] Crenated erythrocyte detecti on by light microscopyOrdered By: Matt Acevedo on 05-28-2025 [place] cells LM Ql (Bld) 1+ [facility] Macrocytes detectionOrdered By: Matt Acevedo on 05-28-2025 Macrocytes Ql (Bld) 1+ [facility] Magnesiumon 05-28-2025 Magnesium [Mass/Vol] 2.3 mg/dL High 1.5-2.2 [facility] Comment on above: Performed By: #### L 501.5200 ####[facility] [address] [place], [address] Pro- Brain NATRIURETIC PEPTI Rosalina 05-28-2025 Natriuretic peptide B (Bld) [Mass/Vol] 14645 pg/mL High <=900 [facility] Comment on above: Result Comment: Hear t Failure Unlikely: < 300 pg/mLHeart Failure Likely< 50 Years: > 450 pg/mL50-75 Years: > 900 pg/mL>75 Years: > 1800 pg/mL Performed By: #### L 503.6765 ####[facility] [address] [place], [address] Basic Metabolic Profile (BMP )on 05-27-2025 BUN/CRE 22.3 RATIO High 10-20 [facility] Comment on above: Performed By: #### L 500.2500, L100.0100 ####[facility] [address] [place], [address] Calcium [Mass/Vol] 7.9 mg/dL Normal 7.6-11.0 [facility] Comment on above: Performed By: #### L 500.2500, L100.0100 ####[facility] [address] [place], [address] Chloride [Moles/Vol] 120 mmol/L High 98-108 [facility] Comment on above: Performed By: #### L 500.2500, L100.0100 ####[facility] [address] [place], [address] CO2 [Moles/Vol] 21.8 mmol/L Normal 21.0-32.0 [facility] Comment on above: Performed By: #### L 500.2500, L100.0100 ####[facility] [address] [place], [address] Creatinine [Mass/Vol] 1.50 mg/dL High 0.70-1.20 [facility] Comment on above: Performed By: #### L 500.2500, L100.0100 ####[facility] [address] [place], [address] ECRCL 42.11 ml/min Low 50-250 [facility] Comment on above: Performed By: #### L 500.2500, L100.0100 ####[facility] [address] [place], [address] GAP 13 Normal 5-15 [facility] Comment on above: Performed By: #### L 500.2500, L100.0100 ####[facility] [address] [place], [address] GFR/1.73 sq M.predicted among non-blacks MDRD (S/P/Bld) [Vol rate/Area] 39 mL/min/{1.73_m2} Low >60 [facility] Comment on above: Result Comment: mL/m in/1.73m2 CKD-EPI Creatinine Equation (2020) Performed By: #### L 500.2500, L100.0100 ####[facility] [address] [place], [address] Glucose [Mass/Vol] 73 mg/dL Normal 70-99 [facility] Comment on above: Performed By: #### L 500.2500, L100.0100 ####[facility] [address] [place], [address] Potassium [Moles/Vol] 3.3 mmol/L Normal 3.3-5.1 [facility] Comment on above: Performed By: #### L 500.2500, L100.0100 ####[facility] [address] [place], [address] Sodium [Moles/Vol] 155 mmol/L High 133-145 [facility] Comment on above: Performed By: #### L 500.2500, L100.0100 ####[facility] [address] [place], [address] Urea nitrogen [Mass/Vol] 34 mg/dL High 4-19 [facility] Comment on above: Performed By: #### L 500.2500, L100.0100 ####[facility] [address] [place], [address] CBC W/Diff, Automatedon - Anisocytosis Ql (Bld) 2+ Normal [facility] Comment on above: Performed By: #### L 500.2500, L100.0100 ####[facility] [address] [place], [address] Basic Metabolic Profile (BMP )on 05-26-2025 BUN/CRE 22.4 RATIO High 10-20 [facility] Comment on above: Performed By: #### L 500.2500, L100.0100 ####[facility] [address] [place], [address] Calcium [Mass/Vol] 7.7 mg/dL Normal 7.6-11.0 [facility] Comment on above: Performed By: #### L 500.2500, L100.0100 ####[facility] [address] [place], [address] Chloride [Moles/Vol] 119 mmol/L High 98-108 [facility] Comment on above: Performed By: #### L 500.2500, L100.0100 ####[facility] [address] [place], [address] CO2 [Moles/Vol] 21.3 mmol/L Normal 21.0-32.0 [facility] Comment on above: Performed By: #### L 500.2500, L100.0100 ####[facility] [address] [place], [address] Creatinine [Mass/Vol] 1.54 mg/dL High 0.70-1.20 [facility] Comment on above: Performed By: #### L 500.2500, L100.0100 ####[facility] [address] [place], [address] ECRCL 41.33 ml/min Low 50-250 [facility] Comment on above: Performed By: #### L 500.2500, L100.0100 ####[facility] [address] [place], [address] GAP 11 Normal 5-15 [facility] Comment on above: Performed By: #### L 500.2500, L100.0100 ####[facility] [address] [place], [address] GFR/1.73 sq M.predicted among non-blacks MDRD (S/P/Bld) [Vol rate/Area] 38 mL/min/{1.73_m2} Low >60 [facility] Comment on above: Result Comment: mL/m in/1.73m2 CKD-EPI Creatinine Equation (2020) Performed By: #### L 500.2500, L100.0100 ####[facility] [address] [place], [address] Glucose [Mass/Vol] 79 mg/dL Normal 70-99 [facility] Comment on above: Performed By: #### L 500.2500, L100.0100 ####[facility] [address] [place], [address] Potassium [Moles/Vol] 3.6 mmol/L Normal 3.3-5.1 [facility] Comment on above: Performed By: #### L 500.2500, L100.0100 ####[facility] [address] [place], [address] Sodium [Moles/Vol] 151 mmol/L High 133-145 [facility] Comment on above: Performed By: #### L 500.2500, L100.0100 ####[facility] [address] [place], [address] Urea nitrogen [Mass/Vol] 35 mg/dL High 4-19 [facility] Comment on above: Performed By: #### L 500.2500, L100.0100 ####[facility] [address] [place], [address] Blood stomatocytes detection by light microscopyOrdered By: Matt Acevedo on 05-26-2025 Stomatocytes LM Ql (Bld) RARE [facility] CBC W/Diff, Automatedon 04-29 STOMATOCYTE RARE Normal [facility] Comment on above: Performed By: #### L 500.2500, L100.0100 ####[facility] [address] [place], [address] POLYCHROMASIA 1+ Normal [facility] Comment on above: Performed By: #### L 500.2500, L100.0100 ####[facility] [address] [place], [address] Anisocytosis Ql (Bld) 2+ Normal [facility] Comment on above: Performed By: #### L 500.2500, L100.0100 ####[facility] [address] [place], [address] MICROCYTIC 1+ Normal [facility] Comment on above: Performed By: #### L 500.2500, L100.0100 ####[facility] [address] [place], [address] OVALOCYTE RARE Normal [facility] Comment on above: Performed By: #### L 500.2500, L100.0100 ####[facility] [address] [place], [address] SMEAR COMMENT SCANNED Normal [facility] Comment on above: Performed By: #### L 500.2500, L100.0100 ####[facility] [address] [place], [address] Culture, Blood (WB)on 2024 CUB No growth in 5 days. Normal [facility] Comment on above: Performed By: #### M 200.1000 ####[facility] [address] [place], [address] Trough vancomycin levelOrder ed By: Juvenal Roblero on 05-26-2025 Vancomycin trough [Mass/Vol] 17.4 ug/mL High 5.0-15.0 [facility] Vancomycin, Trough Levelon 0 05-26-2025 VANCO, TROUGH 17.4 ug/mL High 5.0-15.0 [facility] Comment on above: Order Comment: Comme nts: Trough to be drawn 30 mins prior to scheduled [id number] Result Comment: Leonardo mmended goal trough ranges [...] therapy recommended for serious lifethreatening infections include:- Yzvewrpatv-Jtjltngukpfk-Kcdobnnaa (Ventilator/Healtcare Associated)-SepsisPLEASE CONTACT PHARMACY SERVICES (#3693) FOR INTERPRETATIONOF RESULTS. Performed By: #### L 501.8820 ####[facility] [address] [place], [address] Basic Metabolic Profile (BMP )on 05-25-2025 BUN/CRE 20.5 RATIO High 10-20 [facility] Comment on above: Performed By: #### L 100.0100, L500.2500 ####[facility] [address] [place], [address] Calcium [Mass/Vol] 7.6 mg/dL Normal 7.6-11.0 [facility] Comment on above: Performed By: #### L 100.0100, L500.2500 ####[facility] [address] [place], [address] Chloride [Moles/Vol] 116 mmol/L High 98-108 [facility] Comment on above: Performed By: #### L 100.0100, L500.2500 ####[facility] [address] [place], [address] CO2 [Moles/Vol] 21.7 mmol/L Normal 21.0-32.0 [facility] Comment on above: Performed By: #### L 100.0100, L500.2500 ####[facility] [address] [place], [address] Creatinine [Mass/Vol] 1.95 mg/dL High 0.70-1.20 [facility] Comment on above: Performed By: #### L 100.0100, L500.2500 ####[facility] [address] [place], [address] ECRCL 32.33 ml/min Low 50-250 [facility] Comment on above: Performed By: #### L 100.0100, L500.2500 ####[facility] [address] [place], [address] GAP 11 Normal 5-15 [facility] Comment on above: Performed By: #### L 100.0100, L500.2500 ####[facility] [address] [place], [address] GFR/1.73 sq M.predicted among non-blacks MDRD (S/P/Bld) [Vol rate/Area] 29 mL/min/{1.73_m2} Low >60 [facility] Comment on above: Result Comment: mL/m in/1.73m2 CKD-EPI Creatinine Equation (2020) Performed By: #### L 100.0100, L500.2500 ####[facility] [address] [place], [address] Glucose [Mass/Vol] 130 mg/dL High 70-99 [facility] Comment on above: Performed By: #### L 100.0100, L500.2500 ####[facility] [address] [place], [address] Potassium [Moles/Vol] 3.5 mmol/L Normal 3.3-5.1 [facility] Comment on above: Performed By: #### L 100.0100, L500.2500 ####[facility] [address] [place], [address] Sodium [Moles/Vol] 149 mmol/L High 133-145 [facility] Comment on above: Performed By: #### L 100.0100, L500.2500 ####[facility] [address] [place], [address] Urea nitrogen [Mass/Vol] 40 mg/dL High 4-19 [facility] Comment on above: Performed By: #### L 100.0100, L500.2500 ####[facility] [address] [place], [address] Bilirubin, totalOrdered By: Juvenal Roblero on 05-25-2025 Bilirubin [Mass/Vol] 1.23 mg/dL 0.00-1.30 [facility] CBC W/Diff, Automatedon 08- HYPOCHROMASIA 1+ Normal [facility] Comment on above: Performed By: #### L 500.4050, L501.2300, L100.0100, L501.5200 ####[facility] [address] [place], [address] POLYCHROMASIA 1+ Normal [facility] Comment on above: Performed By: #### L 500.4050, L501.2300, L100.0100, L501.5200 ####[facility] [address] [place], [address] Anisocytosis Ql (Bld) 2+ Normal [facility] Comment on above: Performed By: #### L 500.4050, L501.2300, L100.0100, L501.5200 ####[facility] [address] [place], [address] PLT EST ADEQUATE Normal ADEQ [facility] Comment on above: Performed By: #### L 500.4050, L501.2300, L100.0100, L501.5200 ####[facility] [address] [place], [address] SMEAR COMMENT SCANNED Normal [facility] Comment on above: Performed By: #### L 500.4050, L501.2300, L100.0100, L501.5200 ####[facility] [address] [place], [address] Anisocytosis Ql (Bld) 1+ Normal [facility] Comment on above: Performed By: #### L 100.0100, L500.2500 ####[facility] [address] [place], [address] SMEAR COMMENT SCANNED Normal [facility] Comment on above: Result Comment: ANIS OCYTOSIS Performed By: #### L 100.0100, L500.2500 ####[facility] [address] [place], [address] MICROCYTIC RARE Normal [facility] Comment on above: Performed By: #### L 100.0100, L500.2500 ####[facility] [address] [place], [address] BASO STIPPLING RARE Normal [facility] Comment on above: Performed By: #### L 100.0100, L500.2500 ####[facility] [address] [place], [address] POLYCHROMASIA 1+ Normal [facility] Comment on above: Performed By: #### L 100.0100, L500.2500 ####[facility] [address] [place], [address] Comprehensive Metabolic Prof [facility] 05-25-2025 Albumin [Mass/Vol] 2.4 g/dL Low 3.4-4.8 [facility] Comment on above: Performed By: #### L 500.4050, L501.2300, L100.0100, L501.5200 ####[facility] [address] [place], [address] Albumin/Globulin [Mass ratio] 0.8 {ratio} Low 0.9-2.4 [facility] Comment on above: Performed By: #### L 500.4050, L501.2300, L100.0100, L501.5200 ####[facility] [address] [place], [address] ALK PHOS 52 U/L Normal 35-104 [facility] Comment on above: Performed By: #### L 500.4050, L501.2300, L100.0100, L501.5200 ####[facility] [address] [place], [address] ALT [Catalytic activity/Vol] 15 U/L Normal <=34 [facility] Comment on above: Performed By: #### L 500.4050, L501.2300, L100.0100, L501.5200 ####[facility] [address] [place], [address] AST [Catalytic activity/Vol] 14 U/L Normal <=31 [facility] Comment on above: Performed By: #### L 500.4050, L501.2300, L100.0100, L501.5200 ####[facility] [address] [place], [address] Bilirubin [Mass/Vol] 1.23 mg/dL Normal 0.00-1.30 [facility] Comment on above: Performed By: #### L 500.4050, L501.2300, L100.0100, L501.5200 ####[facility] [address] [place], [address] BUN/CRE 21.6 RATIO High 10-20 [facility] Comment on above: Performed By: #### L 500.4050, L501.2300, L100.0100, L501.5200 ####[facility] [address] [place], [address] Calcium [Mass/Vol] 7.6 mg/dL Normal 7.6-11.0 [facility] Comment on above: Performed By: #### L 500.4050, L501.2300, L100.0100, L501.5200 ####[facility] [address] [place], [address] Chloride [Moles/Vol] 119 mmol/L High 98-108 [facility] Comment on above: Performed By: #### L 500.4050, L501.2300, L100.0100, L501.5200 ####[facility] [address] [place], [address] CO2 [Moles/Vol] 21.4 mmol/L Normal 21.0-32.0 [facility] Comment on above: Performed By: #### L 500.4050, L501.2300, L100.0100, L501.5200 ####[facility] [address] [place], [address] Creatinine [Mass/Vol] 1.69 mg/dL High 0.70-1.20 [facility] Comment on above: Performed By: #### L 500.4050, L501.2300, L100.0100, L501.5200 ####[facility] [address] [place], [address] ECRCL 37.66 ml/min Low 50-250 [facility] Comment on above: Performed By: #### L 500.4050, L501.2300, L100.0100, L501.5200 ####[facility] [address] [place], [address] GAP 11 Normal 5-15 [facility] Comment on above: Performed By: #### L 500.4050, L501.2300, L100.0100, L501.5200 ####[facility] [address] [place], [address] GFR/1.73 sq M.predicted among non-blacks MDRD (S/P/Bld) [Vol rate/Area] 34 mL/min/{1.73_m2} Low >60 [facility] Comment on above: Result Comment: mL/m in/1.73m2 CKD-EPI Creatinine Equation (2020) Performed By: #### L 500.4050, L501.2300, L100.0100, L501.5200 ####[facility] [address] [place], [address] Globulin (S) [Mass/Vol] 3.2 g/dL Normal 2.2-4.2 [facility] Comment on above: Performed By: #### L 500.4050, L501.2300, L100.0100, L501.5200 ####[facility] [address] [place], [address] Glucose [Mass/Vol] 91 mg/dL Normal 70-99 [facility] Comment on above: Performed By: #### L 500.4050, L501.2300, L100.0100, L501.5200 ####[facility] [address] [place], [address] Potassium [Moles/Vol] 3.6 mmol/L Normal 3.3-5.1 [facility] Comment on above: Performed By: #### L 500.4050, L501.2300, L100.0100, L501.5200 ####[facility] [address] [place], [address] Sodium [Moles/Vol] 151 mmol/L High 133-145 [facility] Comment on above: Performed By: #### L 500.4050, L501.2300, L100.0100, L501.5200 ####[facility] [address] [place], [address] T PROT 5.6 g/dL Low 5.9-8.4 [facility] Comment on above: Performed By: #### L 500.4050, L501.2300, L100.0100, L501.5200 ####[facility] [address] [place], [address] Urea nitrogen [Mass/Vol] 37 mg/dL High 4-19 [facility] Comment on above: Performed By: #### L 500.4050, L501.2300, L100.0100, L501.5200 ####[facility] [address] [place], [address] Erythrocyte basophilic stipp ling detectionOrdered By: Matt Acevedo on 05-25-2025 Basophilic stippling LM Ql (Bld) RARE [facility] Magnesiumon 05-25-2025 Magnesium [Mass/Vol] 2.4 mg/dL High 1.5-2.2 [facility] Comment on above: Performed By: #### L 500.4050, L501.2300, L100.0100, L501.5200 ####[facility] [address] [facility] [address] [place], [place], [address] No Panel InformationOrdered By: Juvenal Roblero on 05-25-2025 14 U/L <32 [facility] Phosphoruson 05-25-2025 Phosphate [Mass/Vol] 3.1 mg/dL Normal 2.7-4.5 [facility] Comment on above: Performed By: #### L 500.4050, L501.2300, L100.0100, L501.5200 ####[facility] [address] [facility] [place], [place], [address] Serum globulin measurementOr dered By: Juvenal Roblero on 05-25-2025 Globulin (S) [Mass/Vol] 3.2 g/dL 2.2-4.2 [facility] Serum or plasma alanine sosa otransferase (ALT) measurementOrdered By: Juvenal Roblero on 05-25-2025 ALT [Catalytic activity/Vol] 15 U/L <35 [facility] Serum or plasma albumin suresh urement (mass/volume)Ordered By: Juvenal Roblero on 05-25-2025 Albumin [Mass/Vol] 2.4 g/dL Low 3.4-4.8 [facility] Serum or plasma albumin/glob ulin mass ratioOrdered By: Juvenal Roblero on 05-25-2025 Albumin/Globulin [Mass ratio] 0.8 {ratio} Low 0.9-2.4 [facility] Serum or plasma alkaline [place] sphatase measurementOrdered By: Juvenal Roblero on 05-25-2025 ALP [Catalytic activity/Vol] 52 U/L 35-104 [facility] Total proteinOrdered By: Buddy amaya Osbaldo on 05-25-2025 Protein [Mass/Vol] 5.6 g/dL Low 5.9-8.4 [facility] Assessment of wrist artery p atency prior to arterial punctureOrdered By: Matt Acevedo on 05-24-2025 Arterial patency Wrist artery --pre arterial puncture Positive [facility] Basic Metabolic Profile (BMP )on 05-24-2025 BUN/CRE 19.7 RATIO Normal 10-20 [facility] Comment on above: Performed By: #### L 100.0100, L500.2500 ####[facility] [address] [place], [address] Calcium [Mass/Vol] 7.7 mg/dL Normal 7.6-11.0 [facility] Comment on above: Performed By: #### L 100.0100, L500.2500 ####[facility] [address] [place], [address] Chloride [Moles/Vol] 117 mmol/L High 98-108 [facility] Comment on above: Performed By: #### L 100.0100, L500.2500 ####[facility] [address] [place], [address] CO2 [Moles/Vol] 19.5 mmol/L Low 21.0-32.0 [facility] Comment on above: Performed By: #### L 100.0100, L500.2500 ####[facility] [address] [place], [address] Creatinine [Mass/Vol] 2.01 mg/dL High 0.70-1.20 [facility] Comment on above: Performed By: #### L 100.0100, L500.2500 ####[facility] [address] [place], [address] ECRCL 31.05 ml/min Low 50-250 [facility] Comment on above: Performed By: #### L 100.0100, L500.2500 ####[facility] [address] [place], [address] GAP 12 Normal 5-15 [facility] Comment on above: Performed By: #### L 100.0100, L500.2500 ####[facility] [address] [place], [address] GFR/1.73 sq M.predicted among non-blacks MDRD (S/P/Bld) [Vol rate/Area] 28 mL/min/{1.73_m2} Low >60 [facility] Comment on above: Result Comment: mL/m in/1.73m2 CKD-EPI Creatinine Equation (2020) Performed By: #### L 100.0100, L500.2500 ####[facility] [address] [place], [address] Glucose [Mass/Vol] 105 mg/dL High 70-99 [facility] Comment on above: Performed By: #### L 100.0100, L500.2500 ####[facility] [address] [place], [address] Potassium [Moles/Vol] 3.3 mmol/L Normal 3.3-5.1 [facility] Comment on above: Performed By: #### L 100.0100, L500.2500 ####[facility] [address] [place], [address] Sodium [Moles/Vol] 148 mmol/L High 133-145 [facility] Comment on above: Performed By: #### L 100.0100, L500.2500 ####[facility] [address] [place], [address] Urea nitrogen [Mass/Vol] 40 mg/dL High 4-19 [facility] Comment on above: Performed By: #### L 100.0100, L500.2500 ####[facility] [address] [place], [address] Blood Gases by [facility] 025 KISHAN TEST Positive Normal [facility] Comment on above: Performed By: #### L 8999.08 ####[facility] [address] [place], [address] Base excess Calc (Bld) [Moles/Vol] -2 mmol/L Normal -2 to +2 [facility] Comment on above: Performed By: #### L 8999.0800 ####[facility] [address] [place], [address] Blood Gas Type ART Normal [facility] Comment on above: Performed By: #### L 8999.08 ####[facility] [address] [place], [address] CO2 [Moles/Vol] 25 mmol/L Normal [facility] Comment on above: Performed By: #### L 8999.08 ####[facility] [address] [place], [address] FI02 40.0 Normal [facility] Comment on above: Performed By: #### L 8999.08 ####[facility] [address] [place], [address] HCO3 (Bld) [Moles/Vol] 23.6 mmol/L Normal 22-26 [facility] Comment on above: Performed By: #### L 8999.08 ####[facility] [address] [place], [address] Mode AC Normal [facility] Comment on above: Performed By: #### L 8999.08 ####[facility] [address] [place], [address] O2 Delivery Dev Adult Vent Normal [facility] Comment on above: Performed By: #### L 8999.0800 ####[facility] [address] [place], [address] pCO2 40.1 mmHg Normal 35-45 [facility] Comment on above: Performed By: #### L 9000.0800 ####[facility] [address] [place], [address] PEEP 5 Normal [facility] Comment on above: Performed By: #### L 9000.0800 ####[facility] [address] [place], [address] pH (Bld) 7.38 [pH] Normal 7.35-7.45 [facility] Comment on above: Performed By: #### L 9000.0800 ####[facility] [address] [place], [address] PO2 60 mmHG Low 75-100 [facility] Comment on above: Performed By: #### L 9000.0800 ####[facility] [address] [place], [address] RR 12 Normal [facility] Comment on above: Performed By: #### L 9000.0800 ####[facility] [address] [place], [address] SITE L Radial Normal [facility] Comment on above: Performed By: #### L 9000.0800 ####[facility] [address] [place], [address] SO2 90 Low 95-99 [facility] Comment on above: Performed By: #### L 9000.0800 ####[facility] [address] [place], [address] Vt 450.0 mL Normal [facility] Comment on above: Performed By: #### L 9000.0800 ####[facility] [address] [place], [address] Blood base excess determinat ionOrdered By: Matt Acevedo on 05-24-2025 Base excess Calc (BldV) [Moles/Vol] -2 mmol/L -2-2 [facility] Blood bicarbonate measuremen tOrdered By: Matt Acevedo on 05-24-2025 HCO3 (Bld) [Moles/Vol] 23.6 mmol/L [facility] CBC W/Diff, Automatedon 04-28 JUAN FRANCISCO CELLS 1+ Normal [facility] Comment on above: Performed By: #### L 100.0100, L500.2500 ####[facility] [address] [place], [address] Anisocytosis Ql (Bld) 2+ Normal [facility] Comment on above: Performed By: #### L 100.0100, L500.2500 ####[facility] [address] [place], [address] HYPOCHROMASIA 1+ Normal [facility] Comment on above: Performed By: #### L 100.0100, L500.2500 ####[facility] [address] [place], [address] MICROCYTIC 2+ Normal [facility] Comment on above: Performed By: #### L 100.0100, L500.2500 ####[facility] [address] [place], [address] POLYCHROMASIA 1+ Normal [facility] Comment on above: Performed By: #### L 100.0100, L500.2500 ####[facility] [address] [place], [address] SMEAR COMMENT SCANNED Normal [facility] Comment on above: Performed By: #### L 100.0100, L500.2500 ####[facility] [address] [place], [address] Chest 1 View (Portable)on Chest 1 View (Portable) Normal [facility] Crenated erythrocyte detecti on by light microscopyOrdered By: Matt Acevedo on 05-24-2025 Juan Francisco cells LM Ql (Bld) 1+ [facility] Magnesiumon 05-24-2025 Magnesium [Mass/Vol] 2.5 mg/dL High 1.5-2.2 [facility] Comment on above: Performed By: #### L 501.5200, L501.2300 ####[facility] [address] [place], [address] Measurement, pHOrdered By: Carl Acevedo on 05-24-2025 pH (Unsp spec) 7.38 [pH] 7.35-7.45 [facility] No Panel InformationOrdered By: Matt Acevedo on 05-24-2025 ART [facility] L Radial [facility] AC [facility] Adult Vent [facility] 450.0 mL [facility] 12 [facility] 5 [facility] Phosphoruson 05-24-2025 Phosphate [Mass/Vol] 4.5 mg/dL Normal 2.7-4.5 [facility] Comment on above: Performed By: #### L 501.5200, L501.2300 ####[facility] [address] [place], [place], [address] Respiratory Cultureon 2024 RESPC Microorganism Spec Cult Normal [facility] Comment on above: Performed By: #### M 100.2000, M100.2400 ####[facility] [address] [place], [address] Serum or plasma vancomycin m easurement (mass/volume)Ordered By: Julian Monsivais on 05-24-2025 Vancomycin [Mass/Vol] 16.9 ug/mL High 0.0-15.0 [facility] Total carbon dioxide measure mentOrdered By: Matt Acevedo on 05-24-2025 CO2 [Moles/Vol] 25 mmol/L [facility] Vancomycin, Random Levelon 0 05-24-2025 VANCO, RANDOM 16.9 ug/mL High 0.0-15.0 [facility] Comment on above: Result Comment: VANC OMYCIN STANDARD DRUG THERAPY: CRITICAL VALUE IS > 15.0 mg/LVANCOMYCIN HIGH INTENSITY THERAPY: CRITICAL VALUE IS > 20.0 mg/LPLEASE CONTACT PHARMACY SERVICES (#3226) FOR INTERPRETATIONOF RESULTS. THIS RESULT DOES NOT REPRESENT A PEAK OR TROUGHLEVEL FOR THIS DRUG. Performed By: #### L 501.8850 ####[facility] [address] [place], [address] Basic Metabolic Profile (BMP )on 05-23-2025 BUN/CRE 19.5 RATIO Normal 10-20 [facility] Comment on above: Performed By: #### L 501.5200, L500.2500 ####[facility] [address] [place], [address] Calcium [Mass/Vol] 7.7 mg/dL Normal 7.6-11.0 [facility] Comment on above: Performed By: #### L 501.5200, L500.2500 ####[facility] [address] [place], [address] Chloride [Moles/Vol] 116 mmol/L High 98-108 [facility] Comment on above: Performed By: #### L 501.5200, L500.2500 ####[facility] [address] [place], [address] CO2 [Moles/Vol] 18.3 mmol/L Low 21.0-32.0 [facility] Comment on above: Performed By: #### L 501.5200, L500.2500 ####[facility] [address] [place], [address] Creatinine [Mass/Vol] 2.01 mg/dL High 0.70-1.20 [facility] Comment on above: Performed By: #### L 501.5200, L500.2500 ####[facility] [address] [place], [address] ECRCL 31.05 ml/min Low 50-250 [facility] Comment on above: Performed By: #### L 501.5200, L500.2500 ####[facility] [address] [place], [address] GAP 13 Normal 5-15 [facility] Comment on above: Performed By: #### L 501.5200, L500.2500 ####[facility] [address] [place], [address] GFR/1.73 sq M.predicted among non-blacks MDRD (S/P/Bld) [Vol rate/Area] 28 mL/min/{1.73_m2} Low >60 [facility] Comment on above: Result Comment: mL/m in/1.73m2 CKD-EPI Creatinine Equation (2020) Performed By: #### L 501.5200, L500.2500 ####[facility] [address] [place], [address] Glucose [Mass/Vol] 77 mg/dL Normal 70-99 [facility] Comment on above: Performed By: #### L 501.5200, L500.2500 ####[facility] [address] [place], [address] Potassium [Moles/Vol] 3.6 mmol/L Normal 3.3-5.1 [facility] Comment on above: Performed By: #### L 501.5200, L500.2500 ####[facility] [address] [place], [address] Sodium [Moles/Vol] 147 mmol/L High 133-145 [facility] Comment on above: Performed By: #### L 501.5200, L500.2500 ####[facility] [address] [place], [address] Urea nitrogen [Mass/Vol] 39 mg/dL High 4-19 [facility] Comment on above: Performed By: #### L 501.5200, L500.2500 ####[facility] [address] [place], [address] BUN/CRE 21.0 RATIO High 10-20 [facility] Comment on above: Performed By: #### L 100.0100, L500.2500 ####[facility] [address] [place], [address] Calcium [Mass/Vol] 7.6 mg/dL Normal 7.6-11.0 [facility] Comment on above: Performed By: #### L 100.0100, L500.2500 ####[facility] [address] [place], [address] Chloride [Moles/Vol] 118 mmol/L High 98-108 [facility] Comment on above: Performed By: #### L 100.0100, L500.2500 ####[facility] [address] [place], [address] CO2 [Moles/Vol] 17.8 mmol/L Low 21.0-32.0 [facility] Comment on above: Performed By: #### L 100.0100, L500.2500 ####[facility] [address] [place], [address] Creatinine [Mass/Vol] 1.98 mg/dL High 0.70-1.20 [facility] Comment on above: Performed By: #### L 100.0100, L500.2500 ####[facility] [address] [place], [address] ECRCL 31.52 ml/min Low 50-250 [facility] Comment on above: Performed By: #### L 100.0100, L500.2500 ####[facility] [address] [place], [address] GAP 10 Normal 5-15 [facility] Comment on above: Performed By: #### L 100.0100, L500.2500 ####[facility] [address] [place], [address] GFR/1.73 sq M.predicted among non-blacks MDRD (S/P/Bld) [Vol rate/Area] 28 mL/min/{1.73_m2} Low >60 [facility] Comment on above: Result Comment: mL/m in/1.73m2 CKD-EPI Creatinine Equation (2020) Performed By: #### L 100.0100, L500.2500 ####[facility] [address] [place], [address] Glucose [Mass/Vol] 88 mg/dL Normal 70-99 [facility] Comment on above: Performed By: #### L 100.0100, L500.2500 ####[facility] [address] [place], [address] Potassium [Moles/Vol] 3.8 mmol/L Normal 3.3-5.1 [facility] Comment on above: Performed By: #### L 100.0100, L500.2500 ####[facility] [address] [place], [address] Sodium [Moles/Vol] 146 mmol/L High 133-145 [facility] Comment on above: Performed By: #### L 100.0100, L500.2500 ####[facility] [address] [place], [address] Urea nitrogen [Mass/Vol] 42 mg/dL High 4-19 [facility] Comment on above: Performed By: #### L 100.0100, L500.2500 ####[facility] [address] [place], [address] Blood Gases by [facility] 025 KISHAN TEST Positive Normal [facility] Comment on above: Performed By: #### L 9000.0800 ####[facility] [address] [place], [address] Base excess Calc (Bld) [Moles/Vol] -4 mmol/L Low -2 to +2 [facility] Comment on above: Performed By: #### L 0.08 ####[facility] [address] [place], [address] Blood Gas Type ART Normal [facility] Comment on above: Performed By: #### L 8999.08 ####[facility] [address] [place], [address] CO2 [Moles/Vol] 20 mmol/L Normal [facility] Comment on above: Performed By: #### L 0.0800 ####[facility] [address] [place], [address] FI02 45.0 Normal [facility] Comment on above: Performed By: #### L 8999.08 ####[facility] [address] [place], [address] HCO3 (Bld) [Moles/Vol] 19.3 mmol/L Low 22-26 [facility] Comment on above: Performed By: #### L 8999.0800 ####[facility] [address] [place], [address] Mode AC Normal [facility] Comment on above: Performed By: #### L 8999.08 ####[facility] [address] [place], [address] O2 Delivery Dev Adult Vent Normal [facility] Comment on above: Performed By: #### L 8999.0800 ####[facility] [address] [place], [address] pCO2 26.6 mmHg Low 35-45 [facility] Comment on above: Performed By: #### L 0.0800 ####[facility] [address] [place], [address] PEEP 5 Normal [facility] Comment on above: Performed By: #### L 0.0800 ####[facility] [address] [place], [address] pH (Bld) 7.47 [pH] High 7.35-7.45 [facility] Comment on above: Performed By: #### L 0.0800 ####[facility] [address] [place], [address] PO2 67 mmHG Low 75-100 [facility] Comment on above: Performed By: #### L 0.0800 ####[facility] [address] [place], [address] RR 16 Normal [facility] Comment on above: Performed By: #### L 0.0800 ####[facility] [address] [place], [address] SITE L Radial Normal [facility] Comment on above: Performed By: #### L 0.0800 ####[facility] [address] [place], [address] SO2 95 Normal 95-99 [facility] Comment on above: Performed By: #### L 0.0800 ####[facility] [address] [place], [address] Vt 450.0 mL Normal [facility] Comment on above: Performed By: #### L 9000.0800 ####[facility] [address] [place], [address] CBC W/Diff, Automatedon - CBC W Auto Differential panel (Bld) Normal [facility] Comment on above: Performed By: #### L 100.0100, L500.2500 ####[facility] [address] [place], [address] Chest 1 View (Portable)on Chest 1 View (Portable) Normal [facility] EGD Reporton 05-23-2025 EGD Report Normal [facility] MR/OP.PROVATon 05-23-2025 MR/OP.PROVAT Normal [facility] Magnesiumon 05-23-2025 Magnesium [Mass/Vol] 2.6 mg/dL High 1.5-2.2 [facility] Comment on above: Performed By: #### L 501.5200, L500.2500 ####[facility] [address] [place], [address] Magnesium [Mass/Vol] 2.5 mg/dL High 1.5-2.2 [facility] Comment on above: Performed By: #### L 501.5200 ####[facility] [address] [place], [address] Urine Cultureon 05-23-2025 URC Normal [facility] Comment on above: Performed By: #### L 400.0001, M100.2200 ####[facility] [address] [place], [address] Vancomycin, Trough Levelon 0 05-23-2025 VANCO, TROUGH 20.8 ug/mL High 5.0-15.0 [facility] Comment on above: Order Comment: Comme [...] therapy recommended for serious lifethreatening infections include:- Pzdgmhgzbs-Wphmocbfkjdt-Ewkfgufhv (Ventilator/Healtcare Associated)-SepsisPLEASE CONTACT PHARMACY SERVICES (#2123) FOR INTERPRETATIONOF RESULTS. Performed By: #### L 501.8820 ####[facility] [address] [place], [address] Basic Metabolic Profile (BMP )on 05-22-2025 BUN/CRE 24.2 RATIO High 10-20 [facility] Comment on above: Performed By: #### L 100.0100, L500.2500 ####[facility] [address] [place], [address] Calcium [Mass/Vol] 7.4 mg/dL Low 7.6-11.0 [facility] Comment on above: Performed By: #### L 100.0100, L500.2500 ####[facility] [address] [place], [address] Chloride [Moles/Vol] 114 mmol/L High 98-108 [facility] Comment on above: Performed By: #### L 100.0100, L500.2500 ####[facility] [address] [place], [address] CO2 [Moles/Vol] 18.0 mmol/L Low 21.0-32.0 [facility] Comment on above: Performed By: #### L 100.0100, L500.2500 ####[facility] [address] [place], [address] Creatinine [Mass/Vol] 2.23 mg/dL High 0.70-1.20 [facility] Comment on above: Performed By: #### L 100.0100, L500.2500 ####[facility] [address] [place], [address] ECRCL 27.77 ml/min Low 50-250 [facility] Comment on above: Performed By: #### L 100.0100, L500.2500 ####[facility] [address] [place], [address] GAP 10 Normal 5-15 [facility] Comment on above: Performed By: #### L 100.0100, L500.2500 ####[facility] [address] [place], [address] GFR/1.73 sq M.predicted among non-blacks MDRD (S/P/Bld) [Vol rate/Area] 24 mL/min/{1.73_m2} Low >60 [facility] Comment on above: Result Comment: mL/m in/1.73m2 CKD-EPI Creatinine Equation (2020) Performed By: #### L 100.0100, L500.2500 ####[facility] [address] [place], [address] Glucose [Mass/Vol] 94 mg/dL Normal 70-99 [facility] Comment on above: Performed By: #### L 100.0100, L500.2500 ####[facility] [address] [place], [address] Potassium [Moles/Vol] 4.1 mmol/L Normal 3.3-5.1 [facility] Comment on above: Performed By: #### L 100.0100, L500.2500 ####[facility] [address] [place], [address] Sodium [Moles/Vol] 142 mmol/L Normal 133-145 [facility] Comment on above: Performed By: #### L 100.0100, L500.2500 ####[facility] [address] [place], [address] Urea nitrogen [Mass/Vol] 54 mg/dL High 4-19 [facility] Comment on above: Performed By: #### L 100.0100, L500.2500 ####[facility] [address] [place], [address] Blood Gases by CPSon 08-26-2 025 Base excess Calc (Bld) [Moles/Vol] -4 mmol/L Low -2 to +2 [facility] Comment on above: Performed By: #### L 0.0800 ####[facility] [address] [place], [address] Blood Gas Type ART Normal [facility] Comment on above: Performed By: #### L 0.0800 ####[facility] [address] [place], [address] CO2 [Moles/Vol] 22 mmol/L Normal [facility] Comment on above: Performed By: #### L 0.0800 ####[facility] [address] [place], [address] FI02 70.0 Normal [facility] Comment on above: Performed By: #### L 0.0800 ####[facility] [address] [place], [address] HCO3 (Bld) [Moles/Vol] 20.7 mmol/L Low 22-26 [facility] Comment on above: Performed By: #### L 8999.0800 ####[facility] [address] [place], [address] Mode AC Normal [facility] Comment on above: Performed By: #### L 9000.0800 ####[facility] [address] [place], [address] O2 Delivery Dev Adult Vent Normal [facility] Comment on above: Performed By: #### L 9000.0800 ####[facility] [address] [place], [address] pCO2 32.5 mmHg Low 35-45 [facility] Comment on above: Performed By: #### L 0.0800 ####[facility] [address] [place], [address] PEEP 8 Normal [facility] Comment on above: Performed By: #### L 9000.0800 ####[facility] [address] [place], [address] pH (Bld) 7.41 [pH] Normal 7.35-7.45 [facility] Comment on above: Performed By: #### L 9000.0800 ####[facility] [address] [place], [address] PO2 79 mmHG Normal 75-100 [facility] Comment on above: Performed By: #### L 9000.0800 ####[facility] [address] [place], [address] RR 16 Normal [facility] Comment on above: Performed By: #### L 9000.0800 ####[facility] [address] [place], [address] SITE L Radial Normal [facility] Comment on above: Performed By: #### L 9000.0800 ####[facility] [address] [place], [address] SO2 96 Normal 95-99 [facility] Comment on above: Performed By: #### L 9000.0800 ####[facility] [address] [place], [address] Vt 450.0 mL Normal [facility] Comment on above: Performed By: #### L 9000.0800 ####[facility] [address] [place], [address] CBC W/Diff, Automatedon - SMEAR COMMENT SCANNED Normal [facility] Comment on above: Result Comment: NEUT ROPHILIA PRESENTLYMPHOPENIA PRESENT Performed By: #### L 100.0100, L500.2500 ####[facility] [address] [place], [address] Chest 1 View (Portable)on Chest 1 View (Portable) Normal [facility] Electrocardiogram reportOrde red By: Arley Power on 05-22-2025 EKG study [facility] Other Phone: HH, Hemoglobin AND Hematocri ton 05-22-2025 Hematocrit (Bld) [Volume fraction] 25.0 % Low 37-47 [facility] Comment on above: Performed By: #### L 100.0600 ####[facility] [address] [place], [address] Hemoglobin (Bld) [Mass/Vol] 7.8 g/dL Low 12.0-15.0 [facility] Comment on above: Performed By: #### L 100.0600 ####[facility] [address] [place], [address] Magnesiumon 05-22-2025 Magnesium [Mass/Vol] 2.4 mg/dL High 1.5-2.2 [facility] Comment on above: Order Comment: *ADD- ON* Performed By: #### L 501.5200, L501.2300 ####[facility] [address] [place], [address] Phosphoruson 05-22-2025 Phosphate [Mass/Vol] 4.2 mg/dL Normal 2.7-4.5 [facility] Comment on above: Order Comment: *ADD- ON* Performed By: #### L 501.5200, L501.2300 ####[facility] [address] [place], [address] 12 Lead EKGon 05-21-2025 12 Lead EKG Normal [facility] Absolute lymphocyte countOrd ered By: Dar Hunt on 05-21-2025 Lymphocytes Auto (Unsp spec) [#/Vol] 0.95 10*3/uL 0.83-4.51 [facility] Absolute neutrophil countOrd ered By: Dar Hunt on 05-21-2025 Neutrophils (Bld) [#/Vol] 13.0 10*3/uL High 2.0-7.7 [facility] Anion gap in Serum or Plasma Ordered By: Dar Hunt on 05-21-2025 Anion gap [Moles/Vol] 21 mmol/L High 5-15 [facility] Assessment of wrist artery p atency prior to arterial punctureOrdered By: Dar Hunt on 05-21-2025 Arterial patency Wrist artery --pre arterial puncture Positive [facility] Automated lymphocyte count a s percentage of total leukocytesOrdered By: Dar Hunt on 05-21-2025 Lymphocytes/100 WBC Auto (Unsp spec) 6.5 % Low 19-41 [facility] BRCon 05-21-2025 RC Normal [facility] Comment on above: Result Comment: [id number] AN RC TRANSFUSED 05/21/25 [id number] AP RC TRANSFUSED 05/21/25 [id number] AP RC TRANSFUSED 05/21/25 [id number] AP RC TRANSFUSED 05/21/252006 Performed By: #### B TS, L503.6030, L503.6550, BR ####[facility] [address] [place], [address] BUN/creatinine ratioOrdered By: Dar Hunt on 05-21-2025 Urea nitrogen/Creatinine [Mass ratio] 23.8 mg/mg High 10-20 [facility] Basophil percentageOrdered B y: Dar Hunt on 05-21-2025 Basophils/100 WBC (Bld) 0.1 % 0-1 [facility] Bilirubin Test strip Ql (U)O rdered By: Julian Monsivais on 05-21-2025 Bilirubin Ql (U) Negative Negative [facility] Bilirubin, totalOrdered By: Dar Hunt on 05-21-2025 Bilirubin [Mass/Vol] 1.05 mg/dL 0.00-1.30 [facility] Blood Gases by CPSon 025 KISHAN TEST Positive Normal [facility] Comment on above: Performed By: #### L 9000.0800 ####[facility] [address] [place], [address] Base excess Calc (Bld) [Moles/Vol] -7 mmol/L Low -2 to +2 [facility] Comment on above: Performed By: #### L 9000.0800 ####[facility] [address] [place], [address] Blood Gas Type ART Normal [facility] Comment on above: Performed By: #### L 0.0800 ####[facility] [address] [place], [address] CO2 [Moles/Vol] 17 mmol/L Normal [facility] Comment on above: Performed By: #### L 0.0800 ####[facility] [address] [place], [address] FI02 100.0 Normal [facility] Comment on above: Performed By: #### L 0.0800 ####[facility] [address] [place], [address] HCO3 (Bld) [Moles/Vol] 16.4 mmol/L Low 22-26 [facility] Comment on above: Performed By: #### L 900.0800 ####[facility] [address] [place], [address] Mode Not entered [facility] Comment on above: Performed By: #### L 9000.0800 ####[facility] [address] [place], [address] O2 Delivery Dev NRB Normal [facility] Comment on above: Performed By: #### L 8999.0800 ####[facility] [address] [place], [address] pCO2 22.8 mmHg Low 35-45 [facility] Comment on above: Performed By: #### L 0.0800 ####[facility] [address] [place], [address] pH (Bld) 7.46 [pH] High 7.35-7.45 [facility] Comment on above: Performed By: #### L 9000.0800 ####[facility] [address] [place], [address] PO2 79 mmHG Normal 75-100 [facility] Comment on above: Performed By: #### L 9000.0800 ####[facility] [address] [place], [address] SITE L Radial Normal [facility] Comment on above: Performed By: #### L 9000.0800 ####[facility] [address] [place], [address] SO2 97 Normal 95-99 [facility] Comment on above: Performed By: #### L 9000.0800 ####[facility] [address] [place], [address] Blood base excess determinat ionOrdered By: Dar Hunt on 05-21-2025 Base excess Calc (BldV) [Moles/Vol] -7 mmol/L Low -2-2 [facility] Blood bicarbonate measuremen tOrdered By: Dar Hunt on 05-21-2025 HCO3 (Bld) [Moles/Vol] 16.4 mmol/L Low 22-26 [facility] Blood cultureOrdered By: Briceno on 05-21-2025 Bacteria identified Cx Nom (Bld) No growth in 5 days. [facility] Blood manual differential co mment interpretation (narrative result)Ordered By: Dar Hunt on 05-21-2025 Manual differential comment Lino (Bld) [Interp] SCANNED [facility] CBC W/Diff, Automatedon 04-28 Anisocytosis Ql (Bld) 2+ Normal [facility] Comment on above: Performed By: #### L 100.0100, L500.4050, L503.6005 ####[facility] [address] [place], [address] HYPOCHROMASIA 3+ Normal [facility] Comment on above: Performed By: #### L 100.0100, L500.4050, L503.6005 ####[facility] [address] [place], [address] SMEAR COMMENT SCANNED Normal [facility] Comment on above: Performed By: #### L 100.0100, L500.4050, L503.6005 ####[facility] [address] [place], [address] CO2 (BldV) [Moles/Vol]Ordere d By: Matt Acevedo on 05-21-2025 CO2 [Moles/Vol] 21 mmol/L Low 23-33 [facility] CPK Total, Creatine Kinaseon 05-21-2025 CPK TOTAL 97 U/L Normal 24-195 [facility] Comment on above: Order Comment: Comme nts: DC when propofol is d/c'd Performed By: #### L 501.3058 ####[facility] [address] [place], [address] Carbon dioxide, total [Moles /volume] in Central venous bloodOrdered By: Dar Hunt on 05-21-2025 CO2 [Moles/Vol] 14.9 mmol/L Low 21.0-32.0 [facility] Chest 1 View (Portable)on Chest 1 View (Portable) Normal [facility] Chest 1 View (Portable) Normal [facility] Chloride assayOrdered By: Ug o Hunt on 05-21-2025 Chloride [Moles/Vol] 105 mmol/L 98-108 [facility] Comprehensive Metabolic Prof ilon 05-21-2025 Albumin [Mass/Vol] 3.3 g/dL Low 3.4-4.8 [facility] Comment on above: Performed By: #### L 100.0100, L500.4050, L503.6005 ####[facility] [address] [place], [address] Albumin/Globulin [Mass ratio] 1.0 {ratio} Normal 0.9-2.4 [facility] Comment on above: Performed By: #### L 100.0100, L500.4050, L503.6005 ####[facility] [address] [place], [address] ALK PHOS 74 U/L Normal 35-104 [facility] Comment on above: Performed By: #### L 100.0100, L500.4050, L503.6005 ####[facility] [address] [place], [address] ALT [Catalytic activity/Vol] 16 U/L Normal <=34 [facility] Comment on above: Performed By: #### L 100.0100, L500.4050, L503.6005 ####[facility] [address] [place], [address] AST [Catalytic activity/Vol] 20 U/L Normal <=31 [facility] Comment on above: Performed By: #### L 100.0100, L500.4050, L503.6005 ####[facility] [address] [place], [address] Bilirubin [Mass/Vol] 1.05 mg/dL Normal 0.00-1.30 [facility] Comment on above: Performed By: #### L 100.0100, L500.4050, L503.6005 ####[facility] [address] [place], [address] BUN/CRE 23.8 RATIO High 10-20 [facility] Comment on above: Performed By: #### L 100.0100, L500.4050, L503.6005 ####[facility] [address] [place], [address] Calcium [Mass/Vol] 8.3 mg/dL Normal 7.6-11.0 [facility] Comment on above: Performed By: #### L 100.0100, L500.4050, L503.6005 ####[facility] [address] [place], [address] Chloride [Moles/Vol] 105 mmol/L Normal 98-108 [facility] Comment on above: Performed By: #### L 100.0100, L500.4050, L503.6005 ####[facility] [address] [place], [place], [address] CO2 [Moles/Vol] 14.9 mmol/L Low 21.0-32.0 [facility] Comment on above: Performed By: #### L 100.0100, L500.4050, L503.6005 ####[facility] [address] [place], [address] Creatinine [Mass/Vol] 2.35 mg/dL High 0.70-1.20 [facility] Comment on above: Performed By: #### L 100.0100, L500.4050, L503.6005 ####[facility] [address] [place], [address] ECRCL 26.86 ml/min Low 50-250 [facility] Comment on above: Performed By: #### L 100.0100, L500.4050, L503.6005 ####[facility] [address] [place], [address] GAP 21 High 5-15 [facility] Comment on above: Performed By: #### L 100.0100, L500.4050, L503.6005 ####[facility] [address] [place], [address] GFR/1.73 sq M.predicted among non-blacks MDRD (S/P/Bld) [Vol rate/Area] 23 mL/min/{1.73_m2} Low >60 [facility] Comment on above: Result Comment: mL/m in/1.73m2 CKD-EPI Creatinine Equation (2020) Performed By: #### L 100.0100, L500.4050, L503.6005 ####[facility] [address] [place], [address] Globulin (S) [Mass/Vol] 3.4 g/dL Normal 2.2-4.2 [facility] Comment on above: Performed By: #### L 100.0100, L500.4050, L503.6005 ####[facility] [address] [place], [address] Glucose [Mass/Vol] 120 mg/dL High 70-99 [facility] Comment on above: Performed By: #### L 100.0100, L500.4050, L503.6005 ####[facility] [address] [place], [address] Potassium [Moles/Vol] 5.8 mmol/L High 3.3-5.1 [facility] Comment on above: Performed By: #### L 100.0100, L500.4050, L503.6005 ####[facility] [address] [place], [address] Sodium [Moles/Vol] 140 mmol/L Normal 133-145 [facility] Comment on above: Performed By: #### L 100.0100, L500.4050, L503.6005 ####[facility] [address] [place], [address] T PROT 6.7 g/dL Normal 5.9-8.4 [facility] Comment on above: Performed By: #### L 100.0100, L500.4050, L503.6005 ####[facility] [address] [place], [address] Urea nitrogen [Mass/Vol] 56 mg/dL High 4-19 [facility] Comment on above: Performed By: #### L 100.0100, L500.4050, L503.6005 ####[facility] [address] [place], [address] Consultation - Intensiviston 05-21-2025 Consultation - Horticultural Agent Normal [facility] Echo Complete W/ Contraston 05-21-2025 Echo Complete W/ Contrast Normal [facility] Echocardiogram study reportO rdered By: Efren Arevalo on 05-21-2025 Study report [facility] Work Phone: Emergency Department Summary on 05-21-2025 Emergency Department Summary Normal [facility] Eosinophil percentageOrdered By: Dar Hunt on 05-21-2025 Eosinophils/100 WBC (Bld) 0.0 % 0-5 [facility] Erythrocyte distribution wid th ratioOrdered By: Dar Hunt on 05-21-2025 Erythrocyte distribution width (RBC) [Ratio] 21.1 % High 11.6-14.6 [facility] Erythrocyte distribution wid th standard deviationOrdered By: Dar Hunt on 05-21-2025 Erythrocyte distribution width (RBC) [Ratio] 46.6 fl High 35.1-43.9 [facility] Ferritinon 05-21-2025 Ferritin [Mass/Vol] 62 ng/mL Normal 22-378 [facility] Comment on above: Performed By: #### L 501.9520, L503.0106, L501.5000, L503.6030, L506.0200, L503.6550 ####[facility] [address] [place], [address] Ferritin [Mass/Vol] 53 ng/mL Normal 22-378 [facility] Comment on above: Performed By: #### B TS, L503.6030, L503.6550, BRC ####[facility] [address] [place], [address] Folate [Moles/volume] in Ser um or PlasmaOrdered By: Matt Jopperi on 05-21-2025 Folate [Moles/Vol] 5.60 ng/mL 4.60-34.80 [facility] Folates,Serum (Folic Acid)on 05-21-2025 FOLATES,SERUM 5.60 ng/mL Normal 4.60-34.80 [facility] Comment on above: Performed By: #### L 501.9520, L503.0106, L501.5000, L503.6030, L506.0200, L503.6550 ####[facility] [address] [place], [place], [id number] Glomerular filtration rate ( GFR) estimation/1.73 sq m using serum, plasma, or whole bOrdered By: Dar Hunt on 05-21-2025 GFR/1.73 sq M.predicted among non-blacks MDRD (S/P/Bld) [Vol rate/Area] 23 mL/min/{1.73_m2} Low >60 [facility] Comment on above: mL/min/1.73m2 CKD-EP I Creatinine Equation (2020) Gram stainOrdered By: Julian Monsivais on 05-21-2025 Microscopic observation Gram stain Nom (Unsp spec) [facility] H AND P Exam - Hospitaliston 05-21-2025 H&P Exam - Hospitalist Normal [facility] HH, Hemoglobin AND Hematocri ton 05-21-2025 Hematocrit (Bld) [Volume fraction] 16.0 % Low 37-47 [facility] Comment on above: Performed By: #### L 100.0600 ####[facility] [address] [place], [place], [address] Hemoglobin (Bld) [Mass/Vol] 4.4 g/dL Invalid Interpretation Code 12.0-15.0 [facility] Comment on above: Result Comment: CRIT ICAL VALUE CALLED TO [id number]/25/25 1422 Alexia Maurer.RESULTS READ BACK BY SAME. Performed By: #### L 100.0600 ####[facility] [address] [place], [place], [phone] Hematocrit Auto (Bld) [Volum e fraction]Ordered By: Dar Hunt on 05-21-2025 Hematocrit (Bld) [Volume fraction] 14.4 % Low 37-47 [facility] Hemoglobin measurementOrdere d By: Dar Hunt on 05-21-2025 Hemoglobin (Bld) [Mass/Vol] 3.6 g/dL Low 12.0-15.0 [facility] Comment on above: [facility] 0948 Alexia Ayalazano.RESULTS READ BACK BY SAME. Hypochromatic red blood cell detectionOrdered By: Darzoila Hunt on 05-21-2025 Hypochromia Ql (Bld) 3+ [facility] Immature granulocytes/100 WB C Auto (Bld)Ordered By: Darzoila Hunt on 05-21-2025 Immature granulocytes/100 WBC (Bld) 0.900 % 0.0-0.9 [facility] Comment on above: IG% - Immature Granu locytes (promyelocytes, myelocytes and metamyelocytes) > 1% indicates that a LEFT SHIFT is Present. Iron measurement (mass/mass) Ordered By: Matt Acevedo on 05-21-2025 Iron (Unsp spec) [Mass/Mass] 22 ug/dL Low 50-170 [facility] Iron+Iron Binding Capacityon 05-21-2025 Iron [Mass/Vol] 11 ug/dL Low 50-170 [facility] Comment on above: Performed By: #### B TS, L503.6030, L503.6550, BRC ####[facility] [address] [place], [address] IRON SATURATION 3.0 Low 13-59 [facility] Comment on above: Performed By: #### B TS, L503.6030, L503.6550, BRC ####[facility] [address] [place], [address] TIBC 361 ug/dL Normal 250-450 [facility] Comment on above: Performed By: #### B TS, L503.6030, L503.6550, BRC ####[facility] [address] [place], [address] UIBC 350 ug/dL Normal 228-428 [facility] Comment on above: Performed By: #### B TS, L503.6030, L503.6550, BRC ####[facility] [address] [place], [address] Iron [Mass/Vol] 22 ug/dL Low 50-170 [facility] Comment on above: Order Comment: DC wh en propofol is d/c'd Performed By: #### L 501.9520, L503.0106, L501.5000, L503.6030, L506.0200, L503.6550 ####[facility] [address] [place], [address] IRON SATURATION 7.0 Low 13-59 [facility] Comment on above: Order Comment: DC wh en propofol is d/c'd Performed By: #### L 501.9520, L503.0106, L501.5000, L503.6030, L506.0200, L503.6550 ####[facility] [address] [place], [address] TIBC 338 ug/dL Normal 250-450 [facility] Comment on above: Order Comment: DC wh en propofol is d/c'd Performed By: #### L 501.9520, L503.0106, L501.5000, L503.6030, L506.0200, L503.6550 ####[facility] [address] [place], [address] UIBC 316 ug/dL Normal 228-428 [facility] Comment on above: Order Comment: DC wh en propofol is d/c'd Performed By: #### L 501.9520, L503.0106, L501.5000, L503.6030, L506.0200, L503.6550 ####[facility] [address] [place], [place], [address] Ketones Test strip Ql (U)Ord ered By: Julian Monsivais on 05-21-2025 Ketones Ql (U) Negative Negative [facility] Kidney and Bladderon 025 Kidney and Bladder Normal [facility] L501.4021on 05-21-2025 Trop T High Sen 35 ng/L High <=14 [facility] Comment on above: Performed By: #### L 501.4021 ####[facility] [address] [place], [address] L509.7001on 05-21-2025 Procalcitonin 0.51 ng/mL High <=0.10 [facility] Comment on above: Result Comment: Inte rpretation:<0.10-0.25 ng/mL: Antibiotic therapy discouraged. Bacterialinfection unlikely.0.25-0.50 ng/mL: Antibiotic therapy encouraged. Bacterialinfection possible.>0.50 ng/mL: Antibiotic therapy strongly encouraged.Suggestive of presence of bacterial infection.PCT should always be interpreted in the clinical context ofthe patient. Therefore, clinicians should use the PCTresults in conjunction with other laboratory findings andclinical signs of the patient. Performed By: #### L 509.7009, L503.8467 ####[facility] [address] [place], [address] Laboratory - Chemistry and C hemistry - challengeOrdered By: Dar Hunt on 05-21-2025 AST [Catalytic activity/Vol] 20 U/L <32 [facility] Laboratory - Hematology and Cell countsOrdered By: Darzoila Hunt on 05-21-2025 Anisocytosis Ql (Bld) 2+ [facility] Lactic Acidon 05-21-2025 Lactate [Moles/Vol] 2.9 mmol/L Invalid Interpretation Code 0.0-2.0 [facility] Comment on above: Result Comment: Crit ical Result(s) Called at: by: CORINE SANDOVAL??Results readback by same. Performed By: #### L 503.6005 ####[facility] [address] [place], [address] Lactate [Moles/Vol] 6.7 mmol/L Invalid Interpretation Code 0.0-2.0 [facility] Comment on above: Order Comment: Y Result Comment: Crit ical Result(s) Called to: Bobby HARVEY (ER) by:Meet??Results read back by same. Performed By: #### L 100.0100, L500.4050, L503.6005 ####[facility] [address] [place], [place], [address] Lactic acid measurementOrder ed By: Dar Hunt on 05-21-2025 Lactate [Moles/Vol] 6.7 mmol/L High 0.0-2.0 [facility] Comment on above: Critical Result(s) C alled to: Bobby HARVEY (ER) by: Meet Results read back by same. MCV (mean corpuscular volume ) determinationOrdered By: Dar Hunt on 05-21-2025 MCV (RBC) [Entitic vol] 64.6 fL Low 81-99 [facility] MR/CON.PCM.GIon 05-21-2025 MR/CON.PCM.GI Normal [facility] Mean corpuscular hemoglobin (MCH) determinationOrdered By: Dar Hunt on 05-21-2025 MCH (RBC) [Entitic mass] 16.1 pg Low 27.0-32.0 [facility] Mean corpuscular hemoglobin concentration (MCHC) determinationOrdered By: Darzoila Hunt on 05-21-2025 MCHC (RBC) [Mass/Vol] 25.0 g/dL Low 32-36 [facility] Mean platelet volume determi nationOrdered By: Darzoila Hunt on 05-21-2025 Platelet mean volume (Bld) [Entitic vol] 10.2 fL 6.2-12.0 [facility] Measurement, pHOrdered By: Maruqes Hunt on 05-21-2025 pH (Unsp spec) 7.46 [pH] High 7.35-7.45 [facility] Microbial respiratory cultur eOrdered By: Julian Monsivais on 05-21-2025 Microorganism identified Cx Nom (Unsp spec) [facility] Monocyte percentageOrdered B y: Dar Hunt on 05-21-2025 Monocytes/100 WBC (Bld) 4.1 % 0-10 [facility] Mucus LM Ql (Urine sed)Order ed By: Julian Monsivais on 05-21-2025 Mucus Ql (Urine sed) 0 SEEN /hpf [facility] Neutrophil percentageOrdered By: Dar Hunt on 05-21-2025 Neutrophils/100 WBC (Bld) 88.4 % High 47-70 [facility] Nitrite Test strip Ql (U)Ord ered By: Julian Monsivais on 05-21-2025 Nitrite Ql (U) Negative Negative [facility] No Panel InformationOrdered By: Matt Acevedo on 05-21-2025 316 ug/dL 228-428 [facility] No Panel InformationOrdered By: Dar Hunt on 05-21-2025 Blood Gas Sample Site L Radial [facility] Blood Gas Specimen Type ART [facility] Blood Gas Vent Mode Not entered [facility] Oxygen Delivery Device NRB [facility] Nucleated red blood cell per centageOrdered By: Dar Hunt on 05-21-2025 Nucleated RBC/100 WBC (Bld) [Ratio] 1.0 % 0-5 [facility] Platelet countOrdered By: Emigdio Hunt on 05-21-2025 Platelets (Bld) [#/Vol] 426 10*3/uL 150-450 [facility] Potassium measurement (mass/ volume)Ordered By: Dar Hunt on 05-21-2025 Potassium (Unsp spec) [Mass/Vol] 5.8 mmol/L High 3.3-5.1 [facility] Pro- Brain NATRIURETIC PEPTI Rosalina 05-21-2025 Natriuretic peptide B (Bld) [Mass/Vol] 17759 pg/mL High <=900 [facility] Comment on above: Result Comment: Hear t Failure Unlikely: < 300 pg/mLHeart Failure Likely< 50 Years: > 450 pg/mL50-75 Years: > 900 pg/mL>75 Years: > 1800 pg/mL Performed By: #### L 509.7009, L503.7505 ####[facility] [address] [place], [place], [address] Procedure Reporton Procedure Report Normal [facility] Procedure Report Normal [facility] Protein Test strip Ql (U)Ord ered By: Julian Monsivais on 05-21-2025 Protein Ql (U) 100 mg/dl High Negative [facility] Prothrombin Time w/INRon INR Coag (PPP) [Relative time] 1.3 {INR} Normal [facility] Comment on above: Performed By: #### L 300.3900 ####[facility] [address] [place], [place], [id number] PT Coag (PPP) [Time] 16.9 s High 11.7-14.9 [facility] Comment on above: Performed By: #### L 300.3900 ####[facility] [address] [place], [place], [address] Prothrombin timeOrdered By: Matt Acevedo on 05-21-2025 PT Coag (PPP) [Time] 16.9 s High 11.7-14.9 [facility] RBC Auto (Bld) [#/Vol]Ordere d By: Dar Hunt on 05-21-2025 RBC (Bld) [#/Vol] 2.23 10*6/uL Low 4.2-5.4 [facility] Serum creatinine measurement (mass/volume)Ordered By: Dar Hunt on 05-21-2025 Creatinine [Mass/Vol] 2.35 mg/dL High 0.70-1.20 [facility] Serum globulin measurementOr dered By: Dar Hunt on 05-21-2025 Globulin (S) [Mass/Vol] 3.4 g/dL 2.2-4.2 [facility] Serum glucose measurement (m ass/volume)Ordered By: Dar Hunt on 05-21-2025 Glucose [Mass/Vol] 120 mg/dL High 70-99 [facility] Serum or plasma alanine sosa otransferase (ALT) measurementOrdered By: Dar Hunt on 05-21-2025 ALT [Catalytic activity/Vol] 16 U/L <35 [facility] Serum or plasma albumin suresh urement (mass/volume)Ordered By: Dar Hunt on 05-21-2025 Albumin [Mass/Vol] 3.3 g/dL Low 3.4-4.8 [facility] Serum or plasma albumin/glob ulin mass ratioOrdered By: Dar Hunt on 05-21-2025 Albumin/Globulin [Mass ratio] 1.0 {ratio} 0.9-2.4 [facility] Serum or plasma alkaline [place] sphatase measurementOrdered By: Dar Hunt on 05-21-2025 ALP [Catalytic activity/Vol] 74 U/L 35-104 [facility] Serum or plasma calcium suresh urement (mass/volume)Ordered By: Dar Hunt on 05-21-2025 Calcium [Mass/Vol] 8.3 mg/dL 7.6-11.0 [facility] Serum or plasma creatine kin ase activityOrdered By: Julian Monsivais on 05-21-2025 CK [Catalytic activity/Vol] 97 U/L 24-195 [facility] Serum or plasma ferritin fabio surement (mass/volume)Ordered By: Matt Acevedo on 05-21-2025 Ferritin [Mass/Vol] 62 ng/mL [address] [facility] Serum or plasma ferritin fabio surement (mass/volume)Ordered By: Dar Hunt on 05-21-2025 Ferritin [Mass/Vol] 53 ng/mL 378 [facility] Serum or plasma iron saturat ion measurement (mass fraction)Ordered By: Matt Acevedo on 05-21-2025 Iron saturation [Mass fraction] 7.0 % Low 13-59 [facility] Serum or plasma urea nitroge n measurement (mass/volume)Ordered By: Dar Hunt on 05-21-2025 Urea nitrogen [Mass/Vol] 56 mg/dL High 4-19 [facility] Sodium levelOrdered By: Dar Hunt on 05-21-2025 Sodium [Moles/Vol] 140 mmol/L 133-145 [facility] Squamous epithelial cells de tection in urine sediment by light microscopyOrdered By: Julian Monsivais on 05-21-2025 Epithelial cells.squamous LM Ql (Urine sed) 5-10 SEEN /hpf 5-10 [facility] TSH DL <= 0.005 mIU/L QnOrde red By: Matt Acevedo on 05-21-2025 TSH Qn 1.040 uIU/mL 0.300-4.20 0 [facility] Thyroid Stim Hormone (TSH)on 05-21-2025 TSH 1.040 uIU/mL Normal 0.300-4.20 0 [facility] Comment on above: Performed By: #### L 501.9520, L503.0106, L501.5000, L503.6030, L506.0200, L503.6550 ####[facility] [address] [place], [address] Total carbon dioxide measure mentOrdered By: Dar Hunt on 05-21-2025 CO2 [Moles/Vol] 17 mmol/L [facility] Total proteinOrdered By: Dar Hunt on 05-21-2025 Protein [Mass/Vol] 6.7 g/dL 5.9-8.4 [facility] Triglycerideson 05-21-2025 Triglyceride [Mass/Vol] 80 mg/dL Normal [facility] Comment on above: Order Comment: SHAKILA mckeon en propofol is d/c'd Result Comment: The drugs N-Acetylcysteine and Metamizole may falselydepress this assay.Normal range: <150 mg/dLBorderline High: 150-199 mg/dLHigh: 200-499 mg/dLVery High: >500 mg/dL Performed By: #### L 501.9520, L503.0106, L501.5000, L503.6030, L506.0200, L503.6550 ####[facility] [address] [place], [address] Troponin T HS 2 HRon 025 Trop T High Sen 35 ng/L High <=14 [facility] Comment on above: Performed By: #### L 499.0042 ####[facility] [address] [place], [address] Troponin T HS 4 HRon 025 Trop T High Sen 32 ng/L High <=14 [facility] Comment on above: Performed By: #### L 499.0043 ####[facility] [address] [place], [place], [address] Troponin T.cardiac [Mass/vol ume] in Serum or Plasma by High sensitivity methodOrdered By: Dar Hunt on 05-21-2025 Troponin T.cardiac High sensitivity method [Mass/Vol] 32 ng/L High <14 [facility] Troponin T.cardiac High sensitivity method [Mass/Vol] 35 ng/L High <14 [facility] Troponin T.cardiac High sensitivity method [Mass/Vol] 35 ng/L High <14 [facility] Type AND Screenon 05-21-2025 Ab SCREEN GEL Negative Normal [facility] Comment on above: Order Comment: Has p [...] Carlos Arevalo Performed By: #### B , L503.6015, L503.6995, BR ####[facility] [address] [place], [address] Urinalysis, Completeon 05-21 BACTERIA 2+ /hpf Normal None Seen [facility] Comment on above: Order Comment: CARI CTOR TO SPECIFY Performed By: #### L 400.0001, M100.2200 ####[facility] [address], [address] EPI,SQUAMOUS 5-10 SEEN Normal 5-10 [facility] Comment on above: Order Comment: CARI CTOR TO SPECIFY Performed By: #### L 400.0001, M100.2200 ####[facility] [address] [place], [address] RBC 10-25 SEEN Normal 0-5 [facility] Comment on above: Order Comment: COLLE CTOR TO SPECIFY Performed By: #### L 400.0001, M100.2200 ####[facility] [address] [place], [address] WBC >100 SEEN Normal 0-5 [facility] Comment on above: Order Comment: COLLE CTOR TO SPECIFY Performed By: #### L 400.0001, M100.2200 ####[facility] [address] [place], [address] Mucus Ql (Urine sed) 0 SEEN Normal [facility] Comment on above: Order Comment: CARI CTOR TO SPECIFY Performed By: #### L 400.0001, M100.2200 ####[facility] [address] [place], [address] Urine clarityOrdered By: Briceno on 05-21-2025 Clarity (U) Cloudy Clear [facility] Urine color determinationOrd ered By: Julian Monsivais on 05-21-2025 Color (U) Yellow Yellow [facility] Urine cultureOrdered By: Briceno on 05-21-2025 Bacteria identified Cx Nom (U) Escherichia coli Abnormal [facility] Urine glucose detectionOrder ed By: Julian Monsivais on 05-21-2025 Glucose Ql (U) Normal mg/dl Normal [facility] Urine leukocyte esterase det ection by dipstickOrdered By: Julian Monsivais on 05-21-2025 Leukocyte esterase Test strip Ql (U) 500 /ul High Negative [facility] Urine pHOrdered By: Julian sanders on 05-21-2025 pH (U) 5.0 [pH] 5.0 - 8.0 [facility] Urine sediment bacteria coun t by microscopy (number/high power field)Ordered By: Julian Monsivais on 05-21-2025 Bacteria LM.HPF (Urine sed) [#/Area] 2 /[HPF] None Seen [facility] Urine specific gravity measu rementOrdered By: Julian Monsivais on 05-21-2025 Specific gravity (U) [Rel density] 1.020 1.002-1.03 0 [facility] Urine urobilinogen measureme ntOrdered By: Julian Monsivais on 05-21-2025 Urobilinogen Ql (U) Normal mg/dl Normal [facility] Venous Blood Gason 5 Blood Gas Type LJ Normal [facility] Comment on above: Performed By: #### L 900.0810 ####[facility] [address] [place], [address] CO2 [Moles/Vol] 21 mmol/L Low 23-33 [facility] Comment on above: Performed By: #### L 8999.0810 ####[facility] [address] [place], [address] FI02 60.0 Normal [facility] Comment on above: Performed By: #### L 900.0810 ####[facility] [address] [place], [address] HCO3 (Bld) [Moles/Vol] 20 mmol/L Low 22-26 [facility] Comment on above: Performed By: #### L 900.0810 ####[facility] [address] [place], [address] O2 Delivery Dev Adult Vent Normal [facility] Comment on above: Performed By: #### L 900.0810 ####[facility] [address] [place], [address] PEEP 5 Normal [facility] Comment on above: Performed By: #### L 8999.0810 ####[facility] [address] [place], [address] [address] 16 Normal [facility] Comment on above: Performed By: #### L 900.0810 ####[facility] [address] [place], [address] SITE L Radial Normal [facility] Comment on above: Performed By: #### L 9000.0810 ####[facility] [address] [place], [address] VBG BE -4 mmol/L Low -1.0-3.5 [facility] Comment on above: Performed By: #### L 900.0810 ####[facility] [facility] [address] [place], [address] VBG pCO2 32.4 mmHg Low 41-51 [facility] Comment on above: Performed By: #### L 9000.0810 ####[facility] [address] [place], [address] VBG pH 7.41 Normal 7.32-7.42 [facility] Comment on above: Performed By: #### L 9000.0810 ####[facility] [address] [place], [address] VBG PO2 23 mmHg Low 25-40 [facility] Comment on above: Performed By: #### L 9000.0810 ####[facility] [address] [place], [address] VBG SO2 42 Low 50-70 [facility] Comment on above: Performed By: #### L 9000.0810 ####[facility] [address] [place], [address] Vt 450.0 mL Normal [facility] Comment on above: Performed By: #### L 9000.0810 ####[facility] [address] [place], [address] Venous blood base excess fabio surementOrdered By: Matt Acevedo on 05-21-2025 Base excess Calc (BldV) [Moles/Vol] -4 mmol/L Low -1.0-3.5 [facility] Venous blood bicarbonate fabio surementOrdered By: Matt Acevedo on 05-21-2025 HCO3 (Bld) [Moles/Vol] 20 mmol/L Low 22-26 [facility] Venous blood pH measurementO rdered By: Matt Acevedo on 05-21-2025 pH (BldV) 7.41 [pH] 7.32-7.42 [facility] Venous blood partial pressur e of carbon dioxide measurementOrdered By: Matt Acevedo on 05-21-2025 CO2 (BldV) [Partial pressure] 32.4 mm[Hg] Low 41-51 [facility] Venous blood partial pressur e of oxygen measurementOrdered By: Matt Acevedo on 05-21-2025 Oxygen (BldV) [Partial pressure] 23 mm[Hg] Low 25-40 [facility] Vitamin B12on 05-21-2025 Cobalamin (Vitamin B12) [Mass/Vol] 717 pg/mL Normal 180-914 [facility] Comment on above: Performed By: #### L 501.9520, L503.0106, L501.5000, L503.6030, L506.0200, L503.6550 ####[facility] [address] [place], [address] Vitamin B12 ser/plasOrdered By: Matt Acevedo on 05-21-2025 Cobalamin (Vitamin B12) [Mass/Vol] 717 pg/mL 180-914 [facility] White blood cell (WBC) count Ordered By: Dar Hunt on 05-21-2025 WBC (Bld) [#/Vol] 14.7 10*3/uL High 4.4-11.0 [facility] White blood cell countOrdere d By: Julian Monsivais on 05-21-2025 White blood cell count >100 SEEN /hpf 0-5 [facility] Prealbumin [id number] Prealbumin [Mass/Vol] 14 mg/dL Normal 10-36 [facility] Comment on above: Result Comment: Perf ormed at: - [facility] [id number] Director: Parag Richard PhD, Phone: [phone] Performed By: #### L 3300.6400, L100.0100, L501.9520, L500.4050 ####[facility] [address] [place], [place], [id number] Absolute lymphocyte countOrd ered By: Sabrina Duran on 01-22-2025 Lymphocytes Auto (Unsp spec) [#/Vol] 1.58 10*3/uL 0.83-4.51 [facility] Absolute neutrophil countOrd ered By: Sabrina Duran on 01-22-2025 Neutrophils (Bld) [#/Vol] 6.1 10*3/uL 2.0-7.7 [facility] Anion gap in Serum or Plasma Ordered By: Sabrina Duran on 01-22-2025 Anion gap [Moles/Vol] 12 mmol/L 5-15 [facility] Automated lymphocyte count a s percentage of total leukocytesOrdered By: Sabrina Duran on 01-22-2025 Lymphocytes/100 WBC Auto (Unsp spec) 18.6 % Low 19-41 [facility] BUN/creatinine ratioOrdered By: Sabrina Duran on 01-22-2025 Urea nitrogen/Creatinine [Mass ratio] 18.3 mg/mg 10-20 [facility] Basophil percentageOrdered B y: Sabrina Duran on 01-22-2025 Basophils/100 WBC (Bld) 0.8 % 0-1 [facility] Bilirubin, totalOrdered By: Sabrina Duran on 01-22-2025 Bilirubin [Mass/Vol] 0.49 mg/dL 0.00-1.30 [facility] CBC W/Diff, Automatedon - Absolute Lymph 1.58 X10 3/uL Normal 0.83-4.51 [facility] Comment on above: Performed By: #### L 3300.6400, L100.0100, L501.9520, L500.4050 ####[facility] [address] [place], [place], [id number] Absolute Neut 6.1 X10 3/uL Normal 2.0-7.7 [facility] Comment on above: Performed By: #### L 3300.6400, L100.0100, L501.9520, L500.4050 ####[facility] [address] [place], [address] Basophils/100 WBC (Bld) 0.8 % Normal 0-1 [facility] Comment on above: Performed By: #### L 3300.6400, L100.0100, L501.9520, L500.4050 ####[facility] [address] [place], [address] Eosinophils/100 WBC (Bld) 1.5 % Normal 0-5 [facility] Comment on above: Performed By: #### L 3300.6400, L100.0100, L501.9520, L500.4050 ####[facility] [address] [place], [address] Erythrocyte distribution width (RBC) [Ratio] 16.8 % High 11.6-14.6 [facility] Comment on above: Performed By: #### L 3300.6400, L100.0100, L501.9520, L500.4050 ####[facility] [address] [place], [address] Hematocrit (Bld) [Volume fraction] 25.7 % Low 37-47 [facility] Comment on above: Performed By: #### L 3300.6400, L100.0100, L501.9520, L500.4050 ####[facility] [address] [place], [address] Hemoglobin (Bld) [Mass/Vol] 7.6 g/dL Low 12.0-15.0 [facility] Comment on above: Performed By: #### L 3300.6400, L100.0100, L501.9520, L500.4050 ####[facility] [address] [place], [address] IG% 0.400 Normal 0.0-0.9 [facility] Comment on above: Result Comment: IG% - Immature Granulocytes (promyelocytes, myelocytes andmetamyelocytes) > 1% indicates that a LEFT SHIFT is Present. Performed By: #### L 3300.6400, L100.0100, L501.9520, L500.4050 ####[facility] [address] [place], [address] Lymphocytes/100 WBC (Bld) 18.6 % Low 19-41 [facility] Comment on above: Performed By: #### L 3300.6400, L100.0100, L501.9520, L500.4050 ####[facility] [address] [place], [address] MCH (RBC) [Entitic mass] 21.2 pg Low 27.0-32.0 [facility] Comment on above: Performed By: #### L 3300.6400, L100.0100, L501.9520, L500.4050 ####[facility] [address] [place], [address] MCHC (RBC) [Mass/Vol] 29.6 g/dL Low 32-36 [facility] Comment on above: Performed By: #### L 3300.6400, L100.0100, L501.9520, L500.4050 ####[facility] [address] [place], [address] MCV (RBC) [Entitic vol] 71.8 fL Low 81-99 [facility] Comment on above: Performed By: #### L 3300.6400, L100.0100, L501.9520, L500.4050 ####[facility] [address] [place], [address] Monocytes/100 WBC (Bld) 7.2 % Normal 0-10 [facility] Comment on above: Performed By: #### L 3300.6400, L100.0100, L501.9520, L500.4050 ####[facility] [address] [place], [address] Neutrophils/100 WBC (Bld) 71.5 % High 47-70 [facility] Comment on above: Performed By: #### L 3300.6400, L100.0100, L501.9520, L500.4050 ####[facility] [address] [place], [address] Nucleated RBC (Bld) [#/Vol] 0 10*3/uL Normal 0-5 [facility] Comment on above: Performed By: #### L 3300.6400, L100.0100, L501.9520, L500.4050 ####[facility] [address] [place], [address] Platelet mean volume (Bld) [Entitic vol] 10.1 fL Normal 6.2-12.0 [facility] Comment on above: Performed By: #### L 3300.6400, L100.0100, L501.9520, L500.4050 ####[facility] [address] [place], [address] Platelets (Bld) [#/Vol] 577 10*3/uL High 150-450 [facility] Comment on above: Performed By: #### L 3300.6400, L100.0100, L501.9520, L500.4050 ####[facility] [address] [place], [address] RBC (Bld) [#/Vol] 3.58 10*6/uL Low 4.2-5.4 [facility] Comment on above: Performed By: #### L 3300.6400, L100.0100, L501.9520, L500.4050 ####[facility] [address] [place], [address] RDW SD 43.3 fl Normal 35.1-43.9 [facility] Comment on above: Performed By: #### L 3300.6400, L100.0100, L501.9520, L500.4050 ####[facility] [address] [place], [address] WBC (Bld) [#/Vol] 8.5 10*3/uL Normal 4.4-11.0 [facility] Comment on above: Performed By: #### L 3300.6400, L100.0100, L501.9520, L500.4050 ####[facility] [address] [place], [address] Carbon dioxide, total [Moles /volume] in Central venous bloodOrdered By: Sabrina Duran on 01-22-2025 CO2 [Moles/Vol] 24.5 mmol/L 21.0-32.0 [facility] Chloride assayOrdered By: Lupe Duran on 01-22-2025 Chloride [Moles/Vol] 103 mmol/L 98-108 [facility] Comprehensive Metabolic Prof ilon 01-22-2025 Albumin [Mass/Vol] 3.4 g/dL Normal 3.4-4.8 [facility] Comment on above: Performed By: #### L 3300.6400, L100.0100, L501.9520, L500.4050 ####[facility] [address] [place], [address] Albumin/Globulin [Mass ratio] 0.8 {ratio} Low 0.9-2.4 [facility] Comment on above: Performed By: #### L 3300.6400, L100.0100, L501.9520, L500.4050 ####[facility] [address] [place], [address] ALK PHOS 84 U/L Normal 35-104 [facility] Comment on above: Performed By: #### L 3300.6400, L100.0100, L501.9520, L500.4050 ####[facility] [address] [place], [address] ALT [Catalytic activity/Vol] 10 U/L Normal <=34 [facility] Comment on above: Performed By: #### L 3300.6400, L100.0100, L501.9520, L500.4050 ####[facility] [address] [place], [address] AST [Catalytic activity/Vol] 14 U/L Normal <=31 [facility] Comment on above: Performed By: #### L 3300.6400, L100.0100, L501.9520, L500.4050 ####[facility] [address] [place], [address] Bilirubin [Mass/Vol] 0.49 mg/dL Normal 0.00-1.30 [facility] Comment on above: Performed By: #### L 3300.6400, L100.0100, L501.9520, L500.4050 ####[facility] [address] [place], [address] BUN/CRE 18.3 RATIO Normal 10-20 [facility] Comment on above: Performed By: #### L 3300.6400, L100.0100, L501.9520, L500.4050 ####[facility] [address] [place], [address] Calcium [Mass/Vol] 8.7 mg/dL Normal 7.6-11.0 [facility] Comment on above: Performed By: #### L 3300.6400, L100.0100, L501.9520, L500.4050 ####[facility] [address] [place], [address] Chloride [Moles/Vol] 103 mmol/L Normal 98-108 [facility] Comment on above: Performed By: #### L 3300.6400, L100.0100, L501.9520, L500.4050 ####[facility] [address] [place], [address] CO2 [Moles/Vol] 24.5 mmol/L Normal 21.0-32.0 [facility] Comment on above: Performed By: #### L 3300.6400, L100.0100, L501.9520, L500.4050 ####[facility] [address] [place], [address] Creatinine [Mass/Vol] 1.54 mg/dL High 0.70-1.20 [facility] Comment on above: Performed By: #### L 3300.6400, L100.0100, L501.9520, L500.4050 ####[facility] [address] [place], [address] GAP 12 Normal 5-15 [facility] Comment on above: Performed By: #### L 3300.6400, L100.0100, L501.9520, L500.4050 ####[facility] [address] [place], [address] GFR/1.73 sq M.predicted among non-blacks MDRD (S/P/Bld) [Vol rate/Area] 38 mL/min/{1.73_m2} Low >60 [facility] Comment on above: Result Comment: mL/m in/1.73m2 CKD-EPI Creatinine Equation (2020) Performed By: #### L 3300.6400, L100.0100, L501.9520, L500.4050 ####[facility] [address] [place], [address] Globulin (S) [Mass/Vol] 4.3 g/dL High 2.2-4.2 [facility] Comment on above: Performed By: #### L 3300.6400, L100.0100, L501.9520, L500.4050 ####[facility] [address] [place], [address] Glucose [Mass/Vol] 101 mg/dL High 70-99 [facility] Comment on above: Performed By: #### L 3300.6400, L100.0100, L501.9520, L500.4050 ####[facility] [address] [place], [address] Potassium [Moles/Vol] 4.1 mmol/L Normal 3.3-5.1 [facility] Comment on above: Performed By: #### L 3300.6400, L100.0100, L501.9520, L500.4050 ####[facility] [address] [place], [address] Sodium [Moles/Vol] 140 mmol/L Normal 133-145 [facility] Comment on above: Performed By: #### L 3300.6400, L100.0100, L501.9520, L500.4050 ####[facility] [address] [place], [address] T PROT 7.7 g/dL Normal 5.9-8.4 [facility] Comment on above: Performed By: #### L 3300.6400, L100.0100, L501.9520, L500.4050 ####[facility] [address] [place], [address] Urea nitrogen [Mass/Vol] 28 mg/dL High 4-19 [facility] Comment on above: Performed By: #### L 3300.6400, L100.0100, L501.9520, L500.4050 ####[facility] [address] [place], [address] Eosinophil percentageOrdered By: Sabrina Duran on 01-22-2025 Eosinophils/100 WBC (Bld) 1.5 % 0-5 [facility] Erythrocyte distribution wid th ratioOrdered By: Sabrina Duran on 01-22-2025 Erythrocyte distribution width (RBC) [Ratio] 16.8 % High 11.6-14.6 [facility] Erythrocyte distribution wid th standard deviationOrdered By: Sabrina Duran on 01-22-2025 Erythrocyte distribution width (RBC) [Ratio] 43.3 fl 35.1-43.9 [facility] Glomerular filtration rate ( GFR) estimation/1.73 sq m using serum, plasma, or whole bOrdered By: Sabrina Duran on 01-22-2025 GFR/1.73 sq M.predicted among non-blacks MDRD (S/P/Bld) [Vol rate/Area] 38 mL/min/{1.73_m2} Low >60 [facility] Comment on above: mL/min/1.73m2 CKD-EP I Creatinine Equation (2020) Hematocrit Auto (Bld) [Volum e fraction]Ordered By: Sabrina Duran on 01-22-2025 Hematocrit (Bld) [Volume fraction] 25.7 % Low 37-47 [facility] Hemoglobin measurementOrdere d By: Sabrina Duran on 01-22-2025 Hemoglobin (Bld) [Mass/Vol] 7.6 g/dL Low 12.0-15.0 [facility] Immature granulocytes/100 WB C Auto (Bld)Ordered By: Sabrina Duran on 01-22-2025 Immature granulocytes/100 WBC (Bld) 0.400 % 0.0-0.9 [facility] Comment on above: IG% - Immature Granu locytes (promyelocytes, myelocytes and metamyelocytes) > 1% indicates that a LEFT SHIFT is Present. Laboratory - Chemistry and C hemistry - challengeOrdered By: Sabrina Duran on 01-22-2025 AST [Catalytic activity/Vol] 14 U/L <32 [facility] MCV (mean corpuscular volume ) determinationOrdered By: Sabrina Duran on 01-22-2025 MCV (RBC) [Entitic vol] 71.8 fL Low 81-99 [facility] Mean corpuscular hemoglobin (MCH) determinationOrdered By: Sabrina Duran on 01-22-2025 MCH (RBC) [Entitic mass] 21.2 pg Low 27.0-32.0 [facility] Mean corpuscular hemoglobin concentration (MCHC) determinationOrdered By: Sabrina Duran on 01-22-2025 MCHC (RBC) [Mass/Vol] 29.6 g/dL Low 32-36 [facility] Mean platelet volume determi nationOrdered By: Sabrina Duran on 01-22-2025 Platelet mean volume (Bld) [Entitic vol] 10.1 fL 6.2-12.0 [facility] Monocyte percentageOrdered B y: Sabrina Duran on 01-22-2025 Monocytes/100 WBC (Bld) 7.2 % 0-10 [facility] Neutrophil percentageOrdered By: Sabrina Duran on 01-22-2025 Neutrophils/100 WBC (Bld) 71.5 % High 47-70 [facility] Nucleated red blood cell per centageOrdered By: Sabrina Duran on 01-22-2025 Nucleated RBC/100 WBC (Bld) [Ratio] 0 % 0-5 [facility] Platelet countOrdered By: Lupe Duran on 01-22-2025 Platelets (Bld) [#/Vol] 577 10*3/uL High 150-450 [facility] Potassium measurement (mass/ volume)Ordered By: Sabrina Duran on 01-22-2025 Potassium (Unsp spec) [Mass/Vol] 4.1 mmol/L 3.3-5.1 [facility] RBC Auto (Bld) [#/Vol]Ordere d By: Sabrina Duran on 01-22-2025 RBC (Bld) [#/Vol] 3.58 10*6/uL Low 4.2-5.4 [facility] Serum creatinine measurement (mass/volume)Ordered By: Sabrina Duran on 01-22-2025 Creatinine [Mass/Vol] 1.54 mg/dL High 0.70-1.20 [facility] Serum globulin measurementOr dered By: Sabrina Duran on 01-22-2025 Globulin (S) [Mass/Vol] 4.3 g/dL High 2.2-4.2 [facility] Serum glucose measurement (m ass/volume)Ordered By: Sabrina Duran on 01-22-2025 Glucose [Mass/Vol] 101 mg/dL High 70-99 [facility] Serum or plasma alanine sosa otransferase (ALT) measurementOrdered By: Sabrina Duran on 01-22-2025 ALT [Catalytic activity/Vol] 10 U/L <35 [facility] Serum or plasma albumin suresh urement (mass/volume)Ordered By: Sabrina Duran on 01-22-2025 Albumin [Mass/Vol] 3.4 g/dL 3.4-4.8 [facility] Serum or plasma albumin/glob ulin mass ratioOrdered By: Sabrina Duran on 01-22-2025 Albumin/Globulin [Mass ratio] 0.8 {ratio} Low 0.9-2.4 [facility] Serum or plasma alkaline [place] sphatase measurementOrdered By: Sabrina Duran on 01-22-2025 ALP [Catalytic activity/Vol] 84 U/L 35-104 [facility] Serum or plasma calcium suresh urement (mass/volume)Ordered By: Sabrina Duran on 01-22-2025 Calcium [Mass/Vol] 8.7 mg/dL 7.6-11.0 [facility] Serum or plasma urea nitroge n measurement (mass/volume)Ordered By: Sabrina Duran on 01-22-2025 Urea nitrogen [Mass/Vol] 28 mg/dL High 4-19 [facility] Serum prealbumin measurement by immunoassayOrdered By: Sabrina Duran on 01-22-2025 Prealbumin [Mass/Vol] 14 mg/dL 10-36 [facility] Comment on above: Performed at: [address] [id number] Director: Parag Richard PhD, Phone: [phone] Sodium levelOrdered By: Sabrina Duran on 01-22-2025 Sodium [Moles/Vol] 140 mmol/L 133-145 [facility] TSH DL <= 0.005 mIU/L QnOrde red By: Sabrina Duran on 01-22-2025 TSH Qn 2.100 uIU/mL 0.300-4.20 0 [facility] Thyroid Stim Hormone (TSH)on 01-22-2025 TSH 2.100 uIU/mL Normal 0.300-4.20 0 [facility] Comment on above: Performed By: #### L 3300.6400, L100.0100, L501.9520, L500.4050 ####[facility] [address] [place], [address] Total proteinOrdered By: Maria Del Carmen Duran on 01-22-2025 Protein [Mass/Vol] 7.7 g/dL 5.9-8.4 [facility] White blood cell (WBC) count Ordered By: Sabrina Duran on 01-22-2025 WBC (Bld) [#/Vol] 8.5 10*3/uL 4.4-11.0 [facility] Absolute lymphocyte countOrd ered By: Sabrina Duran on 01-19-2024 Lymphocytes Auto (Unsp spec) [#/Vol] 1.04 10*3/uL 0.83-4.51 [facility] Automated lymphocyte count a s percentage of total leukocytesOrdered By: Sabrina Duran on 01-19-2024 Lymphocytes/100 WBC Auto (Unsp spec) 10.5 % 19-41 [facility] Basophil percentageOrdered B y: Sabrina Duran on 01-19-2024 Basophils/100 WBC (Bld) 0.5 % 0-1 [facility] Bilirubin [Mass/Vol] 0.50 mg/dL 0.20-1.00 [facility] Comment on above: For patients on eltr ombopag therapy, use of Dimension [place] TBIL is not recommended. Chloride [Moles/Vol] 105 mmol/L 98-107 [facility] Eosinophils/100 WBC (Bld) 0.9 % 0-5 [facility] Glucose [Mass/Vol] 102 mg/dL 74-106 [facility] Comment on above: Fasting Glucose resu lt from 100 to 125 mg/dL suggests IMPAIRED HOMEOSTASIS per A.D.A. criteria. Hemoglobin (Bld) [Mass/Vol] 13.0 g/dL 12.0-15.0 [facility] Monocytes/100 WBC (Bld) 5.1 % 0-10 [facility] Neutrophils (Bld) [#/Vol] 8.2 10*3/uL 2.0-7.7 [facility] Neutrophils/100 WBC (Bld) 82.7 % 47-70 [facility] Potassium [Moles/Vol] 4.3 mmol/L 3.5-5.1 [facility] Protein [Mass/Vol] 8.0 g/dL 6.4-8.2 [facility] Sodium [Moles/Vol] 136 mmol/L 136-145 [facility] WBC (Bld) [#/Vol] 10.0 10*3/uL 4.4-11.0 [facility] Determination of erythrocyte mean corpuscular volume (MCV)Ordered By: Sabrina Duran on 01-19-2024 MCV (RBC) [Entitic vol] 84.0 fL 81-99 [facility] Erythrocyte distribution wid th ratioOrdered By: Sabrina Duran on 01-19-2024 Erythrocyte distribution width (RBC) [Ratio] 13.2 % 11.6-14.6 [facility] Erythrocyte distribution wid th standard deviationOrdered By: Sabrina Duran on 01-19-2024 Erythrocyte distribution width (RBC) [Entitic vol] 40.4 fL 35.1-43.9 [facility] Hematocrit Auto (Bld) [Volum e fraction]Ordered By: Sabrina Duran on 01-19-2024 Hematocrit (Bld) [Volume fraction] 41.4 % 37-47 [facility] Immature granulocytes/100 WB C Auto (Bld)Ordered By: Sabrina Duran on 01-19-2024 Immature granulocytes/100 WBC (Bld) 0.300 % 0.0-0.9 [facility] Comment on above: IG% - Immature Granu locytes (promyelocytes, myelocytes and metamyelocytes) > 1% indicates that a LEFT SHIFT is Present. Laboratory - Chemistry and C hemistry - challengeOrdered By: Sabrina Duran on 01-19-2024 Albumin/Globulin [Mass ratio] 0.5 {ratio} 0.9-2.4 [facility] ALP [Catalytic activity/Vol] 90 U/L 45-117 [facility] ALT [Catalytic activity/Vol] 17 U/L 13-56 [facility] CO2 [Moles/Vol] 26.0 mmol/L 21.0-32.0 [facility] Globulin (S) [Mass/Vol] 5.4 g/dL 2.2-4.2 [facility] Urea nitrogen/Creatinine [Mass ratio] 18.5 mg/mg 10-20 [facility] Laboratory - Hematology and Cell countsOrdered By: Sabrina Duran on 01-19-2024 MCH (RBC) [Entitic mass] 26.4 pg 27.0-32.0 [facility] MCHC (RBC) [Mass/Vol] 31.4 g/dL 32-36 [facility] Nucleated RBC/100 WBC (Bld) [Ratio] 0 % 0-5 [facility] Platelet mean volume (Bld) [Entitic vol] 10.1 fL 6.2-12.0 [facility] Platelets (Bld) [#/Vol] 461 10*3/uL 150-450 [facility] No Panel InformationOrdered By: Sabrina Duran on 01-19-2024 Estimated GFR (MDRD) Amer 54 mL/min >60 [facility] Comment on above: GFR Calc Estimated GFR (MDRD) Non-Af Amer 44 mL/min >60 [facility] Comment on above: Non- GFR Calc RBC Auto (Bld) [#/Vol]Ordere d By: Sabrina Duran on 01-19-2024 RBC (Bld) [#/Vol] 4.93 10*6/uL 4.2-5.4 [facility] Serum or plasma calcium suresh urement (mass/volume)Ordered By: Sabrina Duran on 01-19-2024 Calcium [Mass/Vol] 8.7 mg/dL 8.5-10.1 [facility] Serum or plasma creatinine m easurement (mass/volume)Ordered By: Sabrina Duran on 01-19-2024 Creatinine [Mass/Vol] 1.30 mg/dL 0.55-1.02 [facility] Comment on above: The validity of the calculated GFR & GFRAA in patients over 70 years has not been determined. Clinical correlation is essential. Serum or plasma thyroid stim ulating hormone (TSH) measurement (units/volume)Ordered By: Sabrina Duran on 01-19-2024 TSH Qn 1.71 uIU/mL 0.358-3.74 [facility] Serum or plasma urea nitroge n measurement (mass/volume)Ordered By: Sabrina Duran on 01-19-2024 Urea nitrogen [Mass/Vol] 24 mg/dL 7-18 [facility] Thin prep Papanicolaou smear with manual screeningOrdered By: Sabrina Duran on 01-19-2024 Thin prep Papanicolaou smear with manual screening 2.6 g/dL 3.2-5.0 [facility] Thin prep Papanicolaou smear with manual screening 20 U/L 15-37 [facility] Thin prep Papanicolaou smear with manual screening 5 5-15 [facility] Basophil percentageOrdered B y: Sabrina Duran on 07-19-2023 Bilirubin [Mass/Vol] 0.40 mg/dL 0.20-1.00 [facility] Comment on above: For patients on eltr ombopag therapy, use of Dimension [place] TBIL is not recommended. Chloride [Moles/Vol] 110 mmol/L 98-107 [facility] Glucose [Mass/Vol] 97 mg/dL 74-106 [facility] Potassium [Moles/Vol] 4.4 mmol/L 3.5-5.1 [facility] Protein [Mass/Vol] 7.5 g/dL 6.4-8.2 [facility] Sodium [Moles/Vol] 134 mmol/L 136-145 [facility] Laboratory - Chemistry and C hemistry - challengeOrdered By: Sabrina Duran on 07-19-2023 ALP [Catalytic activity/Vol] 88 U/L 45-117 [facility] ALT [Catalytic activity/Vol] 22 U/L 13-56 [facility] CO2 [Moles/Vol] 27.0 mmol/L 21.0-32.0 [facility] Globulin (S) [Mass/Vol] 4.4 g/dL 2.2-4.2 [facility] Urea nitrogen/Creatinine [Mass ratio] 20.2 mg/mg 10-20 [facility] No Panel InformationOrdered By: Sabrina Duran on 07-19-2023 Estimated GFR (MDRD) Amer 60 mL/min >60 [facility] Comment on above: GFR Calc Estimated GFR (MDRD) Non-Af Amer 49 mL/min >60 [facility] Comment on above: Non- GFR Calc Serum or plasma albumin suresh urement (mass/volume)Ordered By: Sabrina Duran on 07-19-2023 Albumin [Mass/Vol] 3.1 g/dL 3.2-5.0 [facility] Serum or plasma albumin/glob ulin mass ratioOrdered By: Sabrina Duran on 07-19-2023 Albumin/Globulin [Mass ratio] 0.7 {ratio} 0.9-2.4 [facility] Serum or plasma calcium suresh urement (mass/volume)Ordered By: Sabrina Duran on 07-19-2023 Calcium [Mass/Vol] 8.5 mg/dL 8.5-10.1 [facility] Serum or plasma creatinine m easurement (mass/volume)Ordered By: Sabrina Duran on 07-19-2023 Creatinine [Mass/Vol] 1.19 mg/dL 0.55-1.02 [facility] Comment on above: The validity of the calculated GFR & GFRAA in patients over 70 years has not been determined. Clinical correlation is essential. Serum or plasma urea nitroge n measurement (mass/volume)Ordered By: Sabrina Duran on 07-19-2023 Urea nitrogen [Mass/Vol] 24 mg/dL 7-18 [facility] Thin prep Papanicolaou smear with manual screeningOrdered By: Sabrina Duran on 07-19-2023 Thin prep Papanicolaou smear with manual screening 22 U/L 15-37 [facility] Thin prep Papanicolaou smear with manual screening -3 5-15 [facility] Vital Signs Date Time Vital Sign Value Performing Clinician Facility 06-29-2025 09:03-0400 Body temperature 98.1 [degF] Shady Amado MD Work Phone: [facility] 06-29-2025 09:03-0400 Diastolic blood pressure 78 mm[Hg] Shady Amado MD Work Phone: [facility] 06-29-2025 09:03-0400 Heart rate 75 /min Shady Amado MD Work Phone: [facility] 06-29-2025 09:03-0400 Respiratory rate 14 /min Shady Amado MD Work Phone: [facility] 06-29-2025 09:03-0400 SaO2% (BldA) [Mass fraction] 99 % Shady Amado MD Work Phone: [facility] 06-29-2025 09:03-0400 Systolic blood pressure 119 mm[Hg] Shady Amado MD Work Phone: [facility] 06-28-2025 05:27-0400 Body mass index (BMI) [Ratio] 26.01 kg/m2 Shady Amado MD Work Phone: [facility] 06-28-2025 05:27-0400 Body weight 70.9 kg Shady Amado MD Work Phone: [facility] 06-22-2025 09:08-0400 SaO2% (BldA) [Mass fraction] 95.9 % Shady Amado MD Work Phone: [facility] 06-20-2025 12:57-0400 Body height 165.1 cm Shady Amado MD Work Phone: [facility] 06-17-2025 17:49-0400 SaO2% (BldA) [Mass fraction] 94.7 % Shady Amado MD Work Phone: [facility] 06-11-2025 21:02-0400 Heart rate 107 /min Dr. Sabrina Duran DO Work Phone: [facility] 06-11-2025 20:58-0400 Body temperature 97.8 [degF] Dr. Sabrina Duran DO Work Phone: [facility] 06-11-2025 20:58-0400 Diastolic blood pressure 75 mm[Hg] Dr. Sabrina Duran DO Work Phone: [facility] 06-11-2025 20:58-0400 Inhaled oxygen flow rate 2 L/min Dr. Sabrina Duran DO Work Phone: [facility] 06-11-2025 20:58-0400 Respiratory rate 18 /min Dr. Sabrina Duran DO Work Phone: [facility] 06-11-2025 20:58-0400 SaO2% (BldA) [Mass fraction] 96 % Dr. Sabrina Duran DO Work Phone: [facility] 06-11-2025 20:58-0400 Systolic blood pressure 116 mm[Hg] Dr. Sabrina Duran DO Work Phone: [facility] 06-11-2025 05:31-0400 Body mass index (BMI) [Ratio] 29 kg/m2 Dr. Sabrina Duran DO Work Phone: [facility] 06-11-2025 05:31-0400 Body weight [address] Sabrina Duran DO Work Phone: [facility] 06-10-2025 00:27-0400 Inhaled oxygen concentration 50 % Dr. Sabrina Duran DO Work Phone: [facility] 06-08-2025 11:11-0400 Body height 165.[address] Sabrina Duran DO Work Phone: [facility] 05-21-2025 12:00-0400 Diastolic blood pressure 58 mm[Hg] Dr. Sabrina Duran DO Work Phone: [facility] 05-21-2025 12:00-0400 Heart rate 103 /min Dr. Sabrina Duran DO Work Phone: [facility] 05-21-2025 12:00-0400 Inhaled oxygen flow rate 15 L/min Dr. Sabrina Duran DO Work Phone: [facility] 05-21-2025 12:00-0400 SaO2% (BldA) [Mass fraction] 95 % Dr. Sabrina Duran DO Work Phone: [facility] 05-21-2025 12:00-0400 Systolic blood pressure 93 mm[Hg] Dr. Sabrina Duran DO Work Phone: [facility] 05-21-2025 11:50-0400 Body temperature 97.8 [degF] Dr. Sabrina Duran DO Work Phone: [facility] 05-21-2025 11:50-0400 Respiratory rate 34 /min Dr. Sabrina Duran DO Work Phone: [facility] 05-21-2025 09:20-0400 Body height 165.[address] Sabrina Duran DO Work Phone: [facility] 05-21-2025 09:20-0400 Body mass index (BMI) [Ratio] 30.7 kg/m2 Dr. Sabrina Duran DO Work Phone: [facility] 05-21-2025 09:20-0400 Body weight 83.[address] Sabrina Duran DO Work Phone: [facility] Encounters Encounter Date Encounter Type Care Provider Facility Start: 07-30-2025 ambulatory [facility] Facility:[facility] Start: 07-01-2025 End: 07-31-2025 Telephone encounter Rosamaria Ocampo CNP Work Phone: [facility] Cardiology [facility] Comment on above: Appointment Request Start: 06-27-2025 End: 07-02-2025 Telephone encounter Rafy Patrick DO Work Phone: [facility] Lung Nodule [facility] Start: 06-25-2025 ambulatory NONE PHYSICIAN Facility :[facility] Start: 06-25-2025 End: 06-25-2025 Telephone encounter Mayra Ladd DO Work Phone: [facility] Lung Nodule [facility] Comment on above: Care Coordination Start: 06-11-2025 End: 06-29-2025 Evaluation and management of inpatient Shady Amado MD Work Phone: [facility] Medical Surgical Unit M[facility] H5 Start: 06-11-2025 Dr. Ziggy Shelton MD -[facility] Work Phone: Start: 06-10-2025 End: 06-10-2025 Documentation procedure Gerry Malik MD Work Phone: [facility] Start: 06-10-2025 Dr. Ziggy Shelton MD -[facility] Work Phone: Start: 06-09-2025 Dr. Hiren Sanders MD [facility] Work Phone: Start: 06-08-2025 Dr. Hiren Sanders MD [facility] Work Phone: Start: 06-07-2025 Dr. Hiren Sanders MD [facility] Work Phone: Start: 06-06-2025 Dr. Eloisa ayers MD -[facility] Start: 06-06-2025 Dr. Hiren Sanders MD [facility] Work Phone: Start: 06-05-2025 Dr. Hiren Sanders MD [facility] Work Phone: Start: 06-05-2025 Dr. Julian Monsivais DO [facility] Start: 06-05-2025 Dr. Eloisa ayers MD [facility] Start: 06-04-2025 Dr. Eloisa ayers MD [facility] Start: 06-04-2025 Dr. Irena Jameson MD [facility] Work Phone: Start: 06-03-2025 Dr. Puja Almeida MD [facility] Start: 06-03-2025 Dr. Yanet Zhou MD [facility] Work Phone: Start: 06-02-2025 Dr. Yanet Zhou MD [facility] Work Phone: Start: 06-02-2025 Dr. Eloisa ayers MD [facility] Start: 06-01-2025 Dr. Eloisa ayers MD -[facility] Start: 06-01-2025 Dr. Yanet Zhou MD [facility] Work Phone: Start: 05-31-2025 Dr. Yanet Zhou MD - [place] [facility] Work Phone: Start: 05-30-2025 Nayely FARLEY - [facility] Start: 05-29-2025 Dr. Yanet Zhou MD [facility] Work Phone: Start: 05-28-2025 Dr. Yanet Zhou MD [facility] Work Phone: Start: 05-28-2025 Dr. Julian Monsivais DO -[facility] Start: 05-27-2025 Dr. Matt Acevedo DO [facility] Work Phone: Start: 05-26-2025 Dr. Matt Acevedo DO -[facility] Work Phone: Start: 05-25-2025 Dr. Julian Monsivais DO -[facility] Start: 05-24-2025 Dr. Matt Acevedo DO -[facility] Work Phone: Start: 05-24-2025 Dr. Julian Monsivais DO -[facility] Start: 05-23-2025 Dr. Matt Acevedo DO -[facility] Work Phone: Start: 05-22-2025 ambulatory [facility] Facility:[facility] Start: 05-22-2025 Jeffery Mcrae -[facility] Start: 05-22-2025 Dr. Matt Acevedo DO -[facility] Work Phone: Start: 05-22-2025 Dr. Julian Monsivais DO -[facility] Start: 05-21-2025 Jefferyfady Mcrae [facility] Start: 05-21-2025 Dr. Matt Acevedo DO -[facility] Work Phone: Start: 05-21-2025 Dr. Julian Monsivais DO -[facility] Start: 05-21-2025 End: 06-11-2025 Evaluation and management of inpatient Dr. Matt Acevedo DO -Intensive Care Unit Work Phone: Start: 05-21-2025 ambulatory Matt Acevedo Facility:[facility] Start: 05-21-2025 End: 06-11-2025 Dr. Ziggy Shelton MD -Progressive Care Unit Work Phone: Start: 01-25-2025 Encounter for genera l adult medical examination without abnormal findings [facility] Start: 01-25-2025 ambulatory [facility] Facility:[facility] Start: 01-22-2025 End: 01-22-[address] Sabrina Duran DO -Laboratory Suhas Mast [facility] Start: 01-22-2025 End: 01-22-2025 ambulatory [facility] Facility:[facility] Start: 01-19-2024 End: 01-19-2024 ambulatory [facility] Work Phone: Start: 01-19-2024 End: 01-19-2024 Patient encounter procedure [facility]atory[facility] Start: 07-19-2023 End: 07-19-2023 ambulatory [facility] Work Phone: Start: 07-19-2023 End: 07-19-2023 Patient encounter procedure [facility] Procedures Date Procedure Procedure Detail Performing Clinician Start: 06-29-2025 Basic metabolic panel calcium total Catherine Neopaney DO Work Phone: Start: 06-28-2025 End: 06-28-2025 Dilation & curettage cervical stump David Ortega MD Work Phone: Start: 06-28-2025 End: 06-28-2025 Insertion intrauterine device iud Davdi Ortega MD Work Phone: Start: 06-28-2025 OXYGEN [...] his afternoon Performed By: #### [id number] ####Kiln Mechanic: NADIA RFENCH ([id number])[facility] ([address] Start: 06-25-2025 Blood typing serologic abo Dee Tejedamo nd BICYCLE COURIER - INFORMATION ASSURANCE OFFICER Work Phone: Start: 06-25-2025 Ct thorax w/o [...] SANDERS Comment on above: Performed By: #### [id number] ####Medical Di ozzie: NADIA FRENCH ([id number])[facility] ([facility])[address] [place] [address] Start: 06-19-2025 Comprehensive metabolic panel Liban Neumann [...] 06-12-2025 Blood count complete auto&auto difrntl wbc Naiv Roberts MD Work Phone: Start: 06-12-2025 Antibody screen [facility] Comment on above: Performed By: #### [id number] ####Medical Di ozzie: NADIA FRENCH ([id number])[facility] ([facility])[address] [place] [address] Start: 06-12-2025 ABO and Rh group [Type] [...] ultrasound of kidneys and bladder Dr. Sabrina Duran DO Work Phone: Start: [...] Activity Detail Author Start: 06-29-2026 Creatinine measurement [facility] Start: 06-29-2026 Potassium measurement [facility] Start: 06-26-2026 Creatinine measurement Creatinine Level [facility] Start: 06-26-2026 Potassium measurement Potassium Level [facility] Start: 06-25-2026 Creatinine measurement Creatinine Level [facility] Start: 06-25-2026 Potassium measurement Potassium Level [facility] Start: 06-18-2026 Echocardiography Echocardiogram [facility] Start: 06-18-2026 [facility] Start: 06-28-2025 End: 06-28-2025 Dilation & curettage cervical stump DILATION AND CURETTAGE Endometrial cancer (HCC) 06/28/2025 12:00 PM EDT [facility] Operating Room Start: 06-28-2025 End: 06-28-2025 Evaluation and management of inpatient 06/28/2025 12:00 PM EDT - 06/28/2025 1:00 PM EDT Surgery [facility] MA[facility] OR [address] [place] [address] David Ortega MD [address] [address] DILATION AND CURETTAGE [61788 (CPT )] [facility] Comment on above: DILATION AND CURETTAGE [21515 (CPT )] Start: 06-28-2025 End: 06-28-2025 Insertion intrauterine device iud INSERTION, INTRAUTERINE DEVICE Endometrial cancer (HCC) 06/28/2025 12:00 PM EDT [facility] Operating Room Start: 06-26-2025 End: [facility] BRONCHOSCOPY, RIGID OR FLEXIBLE, WITHOUT ENDOBRONCHIAL ULTRASOUND Acute hypoxemic respiratory failure (HCC) Acute pneumonia 06/26/2025 2:30 PM EDT [facility] Gastroenterology Start: 06-26-2025 End: 06-26-2025 Evaluation and management of inpatient 06/26/2025 2:30 PM EDT - 06/26/2025 3:00 PM EDT Surgery [facility] Endoscopy [address] [place] [id number] Mayra Ladd DO [address] [address] Inspection bronchoscopy with bronchoalveolar lavage. Possible endobronchial biopsies, needle aspiration, and brushings. [72947 (CPT ) +1 more] [facility] Comment on above: Inspection bronchoscopy with bronchoalve olar lavage. Possible endobronchial biopsies, needle aspiration, and brushings. [03145 (CPT ) +1 more] Start: 06-11-2025 Patient discharge [facility] Start: 06-11-2025 Patient discharge [facility] Start: 06-04-2025 Continuous pulse oximetry [facility] Start: 06-02-2025 Referral to utilization review nurse [facility] Start: 06-02-2025 [facility] Start: 06-01-2025 Referral to health and wellness coordinator and priming mixture carrier [facility] Start: 05-28-2025 COVID-19 Vaccine ( season) COVID-19 Vaccine () [facility] Start: 05-28-2025 Influenza vaccination Influenza Vaccine (#1) [facility] Start: 05-28-2025 [facility] Start: 05-28-2025 Dual pressure spontaneous ventilation support [facility] Start: 05-26-2025 Care planning and problem solving actions [facility] Start: 05-25-2025 Oxygen therapy [facility] Start: 05-25-2025 Speech therapy assessment [facility] Start: 05-21-2025 Application of intermittent pneumatic compression device [facility] Start: 05-21-2025 Following clinical pathway protocol [facility] Start: 05-21-2025 Consultation [facility] Start: 05-21-2025 Assessment of risk of venous thromboembolism [facility] Start: 05-21-2025 Insertion of catheter into peripheral vein [facility] Start: 05-21-2025 Measuring intake and output [facility] Start: 05-21-2025 Patient referral to dietitian [facility] Start: 05-21-2025 Providing care according to standard [facility] Start: 05-21-2025 Referral to gastroenterology service [facility] Start: 05-21-2025 Referral to occupational therapist [facility] Start: 05-21-2025 Referral to service [facility] Start: 05-21-2025 Vital signs measurements [facility] Start: 05-21-2025 Prothrombin time [facility] Start: 05-21-2025 End: 05-21-2025 [facility] Start: 05-21-2025 Verification routine [facility] Start: 05-21-2025 Admission procedure [facility] Start: 05-21-2025 Hospital admission, emergency, from emergency room, medical nature [facility] Start: 05-21-2025 Leukocyte reduced red blood cells [facility] Start: 05-21-2025 End: 05-21-2025 [facility] Start: 05-21-2025 End: 05-21-2025 Administration of blood product [facility] Start: 05-21-2025 Consultation [facility] Start: 05-21-2025 Patient referral to dietitian [facility] Start: 05-21-2025 [facility] Start: 2023 RSV Immunization for Adults (1 - Risk 60-74 years 1-dose series) RSV Immunization for Adults (1 - Risk 60-74 years 1-dose series) [facility] Start: 2023 [facility] Start: 2013 Zoster Vaccines (1 of 2) Zoster Vaccines (1 of 2) [facility] Start: 2013 [facility] Start: 2003 Screening for malignant neoplasm of breast [facility] Start: 1993 Screening for malignant neoplasm of cervix [facility] Start: 1984 Screening for malignant neoplasm of cervix [facility] Start: 1982 DTaP/Tdap/Td Vaccines (1 - Tdap) DTaP/Tdap/Td Vaccines (1 - Tdap) [facility] Start: 1982 Pneumococcal Vaccine: 50+ Years (1 of 2 - PCV) Pneumococcal Vaccine: 50+ Years (1 of 2 - PCV) [facility] Start: 1982 [facility] Start: 1981 Diabetes mellitus screening [facility] Start: 1981 Hepatitis C screening [facility] Start: 1975 Depression Screening Depression Screening [facility] Start: 1975 [facility] Start: 1964 MMR Vaccines (1 of 1 - Standard series) MMR Vaccines (1 of 1 - Standard series) [facility] Start: 1964 [facility] Start: 1963 HIV screening [facility] Start: 1963 Lipid panel Lipid Panel [facility] Start: 1963 Screening for malignant neoplasm of colon [facility] INR in Blood by Coagulation assay [facility] Iron [Mass/mass] in Unspecified specimen [facility] Iron saturation [Mas s Fraction] in Serum or Plasma [facility] Tissue exam [facility] Sy [facility] Work Phone: Total iron binding capacity measurement [facility] Troponin T.cardiac [Mass/volume] in Serum or Plasma by High sensitivity method [facility] Troponin T.cardiac [Mass/volume] in Serum or Plasma by High sensitivity method [facility] Immunizations Immunization Date Immunization Notes Care Provider [facility] 07-26-2024 influenza virus vaccine, unspecified formulation Mayra Ladd DO Work Phone: [facility] 07-19-2023 influenza, injectabl e, quadrivalent, preservative free Dr. Sabrina Duran DO Work Phone: [facility] Payers Date Payer Category Payer Self-pay [id number] 2022 Medicaid HMO [id number] 2022 Unknown [id number] 1965 Unknown [id number] 2.16. 840.1.319287.3.579.2.627 Unknown [id number] 2.16.8 40.1.244487.3.579.2.462 Unknown [id number] 2.16.8 40.1.138017.3.579.2.462 Unknown [id number] 2.16.8 40.1.997771.3.579.2.462 Unknown [id number] 2.16.8 40.1.052472.3.579.2.462 Unknown [id number] 2.16.8 40.1.022581.3.579.2.462 Unknown [id number] 2.16.8 40.1.179752.3.579.2.462 Unknown [id number] 2.16.8 40.1.061106.3.579.2.462 Unknown [id number] 2.16.8 40.1.301670.3.579.2.462 Unknown [id number] 2.16.8 40.1.855937.3.579.2.462 Unknown [id number] 2.16.8 40.1.533987.3.579.2.462 Unknown [id number] 2.16.8 40.1.071588.3.579.2.462 Unknown [id number] 2.16.8 40.1.229666.3.579.2.462 Unknown [id number] 2.16.8 40.1.237186.3.579.2.462 Unknown [id number] 2.16.8 40.1.868676.3.579.2.462 Unknown [id number] 2.16.8 40.1.100161.3.579.2.462 Unknown [id number] 2.16.8 40.1.029327.3.579.2.462 Unknown [id number] 2.16.8 40.1.732604.3.579.2.462 Unknown [id number] 2.16.8 40.1.316913.3.579.2.462 Unknown [id number] 2.16.8 40.1.346791.3.579.2.462 Unknown [id number] 2.16.8 40.1.013156.3.579.2.462 Unknown [id number] 2.16.8 40.1.896477.3.579.2.462 Unknown [id number] 2.16.8 40.1.632188.3.579.2.462 Unknown [id number] 2.16.8 40.1.332195.3.579.2.462 Unknown [id number] 2.16.8 40.1.806237.3.579.2.462 Unknown [id number] 2.16.8 40.1.985271.3.579.2.462 Unknown [id number] 2.16.8 40.1.776634.3.579.2.462 Unknown [id number] 2.16.8 40.1.149884.3.579.2.462 Unknown [id number] 2.16.8 40.1.587005.3.579.2.462 Unknown [id number] 2.16.8 40.1.149177.3.579.2.462 Unknown [id number] 2.16.8 40.1.517257.3.579.2.462 Unknown [id number] 2.16.8 40.1.545432.3.579.2.462 Unknown [id number] 2.16.8 40.1.992228.3.579.2.462 Unknown [id number] 2.16.8 40.1.428737.3.579.2.462 Unknown [id number] 2.16.8 40.1.672573.3.579.2.462 Unknown [id number] 2.16.8 40.1.740285.3.579.2.462 Unknown [id number] 2.16.8 40.1.212607.3.579.2.462 Unknown [id number] 2.16.8 40.1.518997.3.579.2.462 Unknown [id number] 2.16.8 40.1.695402.3.579.2.462 Unknown [id number] 2.16.8 40.1.138850.3.579.2.462 Unknown [id number] 2.16.8 40.1.651116.3.579.2.462 Unknown [id number] 2.16.8 40.1.070624.3.579.2.462 Unknown [id number] 2.16.8 40.1.056270.3.579.2.462 Unknown [id number] 2.16.8 40.1.652366.3.579.2.462 Unknown [id number] 2.16.8 40.1.673808.3.579.2.462 Social History Date Type Detail Facility Start: 12-01-2014 Tobacco smoking stat us CTIS Unknown if ever smoked [facility] Start: 07-19-2021 None [facility] Start: 07-19-2021 Non-smoker [facility] Start: 1965 Sex Assigned At Female [facility] Start: 05-21-2025 End: 05-21-2025 Tobacco smoking status NHIS Never smoked tobacco (finding) [facility] Start: 1965 Sex assigned at Not on file [facility] Start: 04-27-2022 Sex Female (finding) [facility] Gender identity Not on file [facility] Start: 06-11-2025 Gender identity Identifies as female gender (finding) [facility] Goals Date Patient Goal Desired Activity /State Functional Status Date Assessment Result Facility 06-29-2025 Are you deaf, or do you have serious difficulty hearing No [facility] 06-29-2025 Are you blind, or do you have serious difficulty seeing, even when wearing glasses No [facility] 06-29-2025 Do you have serious difficulty walking or climbing stairs Yes [facility] 06-29-2025 Do you have difficul ty dressing or bathing Yes [facility] 06-29-2025 Because of a physica l, mental, or emotional condition, do you have difficulty doing errands alone such as visiting a physician's office or shopping Yes [facility] 06-11-2025 Functional status Dependent/Unable [facility] Work Phone: 06-11-2025 Functional status Chair [facility] Work Phone: Mental Status Date Assessment Result Facility 06-29-2025 Because of a physica l, mental, or emotional condition, do you have serious difficulty concentrating, remembering, or making decisions Yes [facility] 06-11-2025 Cognitive function Voice/Name [facility] Work Phone: 05-21-2025 Cognitive function Voice/Name [facility] Work Phone: Clinical Notes 05-21-2025 to [...] no openings can be with EVE. Thanks! [facility] 07-01-[address] Hazel Alvarez saw this pt during her hospitalization. She was discharged on 06/29. Can you please call her and schedule a s/p hospital follow up with him in the next 2-3 weeks? If no openings can be with EVE. Thanks! documented in this encounter [facility] 06-29-2025 Nurse Note Patient/family given discharge paperwork/instructions. IV removed. Medications delivered from [facility] pharmacy. Son at bedside. Transport request in. [...] Verbalized understanding. Prevention Measures in place, including: Abiquiu sheet with pillows/wedges, Foam heel protectors (changed), [...] Pt turned with assist from myself and licensed staff mft. PT turned to right side at end of visit. Pt's Heels, Buttocks/coccyx, Back, Elbows, Occiput and ears all intact. Blanchable erythema to bilateral buttocks. Female external catheter in place, medial thighs and labia intact. Prevention Measures in place, including: Abiquiu sheet with pillows/wedges, Foam heel protectors (changed), [...] all intact. Pt being followed by wound [facility]AMP [facility]ER group, For right elbow, right forearm and evon-rectal region wound assessment and treatment plan, please see Wound/Ostomy [facility]AMP [facility]ER progress notes. Female external catheter in place, medial thighs and labia intact. Instructed pt on pressure injury prevention and importance of turning/postioning every 2hrs while in bed and every 15 min while sitting in chair. Instructed on use and care of waffle chair cushion. Verbalized understanding, unsure of pt comprehension will need reinforcement. Prevention Measures in place, including: Abiquiu sheet with pillows/wedges, Foam heel protectors (applied), Sacral foam (n/a due to frequent stool), Zinc/Moisture Barrier ointment (obtained), Waffle chair cushion (obtained for pt). Skin Care precaution order set in place. Dietitian consult in place. PT consult in place. Will continue to follow pt. Please Vocera for any questions or concerns. Anaya Cohen RN, BSN documented in this encounter [facility] 06-29-2025 Miscellaneous Notes Patient Choice Patient Name: NANCY DELACRUZ Date of : 1965 All Providers Sent Referral Name: [facility] ([facility] known [facility]) Phone: [phone] Address: [address] [place] [address] Name: [facility] Phone: [phone] Address: [address] [place] [address] Name: [facility] [place] Phone: [phone] Address: [address] [place] [address] Name: [facility] Address: [address] [place] [address] Name: [facility] (Home Health) Address: [address] [place] [address] Name: [facility] Phone: [phone] Address: [address] [address] [place] [address] Name: [facility] Phone: [phone] Address: [address] [place] [address] Name: [facility] Address: [address] [place] [address] Name: [facility] (For [facility] Facilities Only) Phone: [phone] Address: [address] [place] [address] Name: [facility] [place] Phone: [phone] Address: [address] [place] [address] Name: [facility] Phone: [phone] Address: [address] [place] [address] Name: [facility] [place] Phone: [phone] Address: [address] [place] [address] [facility]: [facility] Phone: [phone] Address: [address] [place] [address] Name: [facility] Phone: [phone] Address: [address] [place] [address] Name: [facility] Address: [address] [place] [address] Name: [facility] Address: [address] [place] [address] Name: [facility] Phone: [phone] Address: [address] [place] [address] Name: [facility] Address: [address] [place] [address] Name: [facility] Address: [address] [place] [address] [facility]: [facility] Phone: [phone] Address: [address] [place] [address] Name: [facility] Address: [address] [place] [address] Name: [facility] (All Offices) Phone: [phone] Address: [address] [place] [address] [facility] PROGRESS NOTE: Pt to be discharged [...] HR noted to be in Afib 39-55BPM. INFORMATION ASSURANCE OFFICER gave IV Robinol at beside. Dr mirza paged to bedside for cardiac respiratory issues. Pt 92 on 10L SM. Orders to place on Bipap until patient recovers more. Paged Respiratory to PACU to place pt on Bipap. Care Management Progress Note Short Medical why still here: Pt remains on H5. Resp status improving on 2L O2 [place] today. Plan for surgery with HOSPICE CARE CONSULTANT tomorrow. Tcc will continue to follow. Planned Discharge Disposition: Home Health Services Barriers/Today we still Wait: Administering IV medications, Attending completion of discharge workflow, Clinical stability, Color Developer recommendations (comment), Procedure (comment) Length of Stay (Days): 9 GMLOS: No GMLOS Documented Surgery cancelled per Dr. Rodriguez/anesthesia due to respiratory status. Pt O2 sat 85% on 12L venti mask. Dr. Rodriguez at bedside. Notified Dr. Akers. Will come eval pt. Non rebreather applied. Per TCC, patient wanting to go [place] with [place] referral started in [facility]. Currently there are NO accepting home care agencies. Will continue to follow. T[facility] updated. [facility] able to accept patient. Will keep agency updated via [facility] for final dc plan. Care Management [...] Brother, Wayne, at bedside. Planned Discharge Disposition: Shelter Facility Barriers/Today we still Wait: Attending completion of discharge workflow, Clinical stability, Color Developer recommendations (comment), Procedure (comment) Length of Stay (Days): 4 GMLOS: No GMLOS Documented Care Management Progress Note Short Medical why still here: pt was transferred to H5 from T2 yesterday afternoon. Pt was transferred from [facility] with vaginal bleed and transferred to [...] will continue to follow. Planned Discharge Disposition: Shelter Facility Barriers/Today we still Wait: Attending completion of discharge workflow, Clinical stability, Patient/caregiver facility choice Length of Stay (Days): 3 GMLOS: No GMLOS Documented Family Communication Number Called: [phone] Name of Designated Family Route Sales Delivery Drivers Supervisor: Wayne Delacruz (brother) Relationship: brother Phone Call Outcome: I spoke with the individual listed above. Family Route Sales Delivery Drivers Supervisor Updated on the Following: I called and [...] following vs SNF) Spoke with Wayne cynthia) [phone] via phone and at bedside. Introduced myself [...] obtained. Barriers/Today we still Wait: Clinical stability, Color Developer recommendations (comment), Symptomatic control, Patient/caregiver facility choice Length of Stay (Days): 2 GMLOS: No GMLOS Documented Case management will continue to follow for discharge planning. Receiving Team Member following case for Discharge Needs. Care Managment Initial Assessment Date: 06/18/2025 Patient Name: Nancy Delacruz : 1965 Patient Information Source of Information: Patient Route Sales Delivery Drivers Supervisor Name/Contact Information: brother Wayne Cognition/Language: Impaired, Other (Comment) (DD) Permission given to speak with patient training representative/caregiver as indicated: Confirmation of Payer with patient/family: Yes Payer Name: [facility] Medicaid : No Confirmation of Primary Care Physician: Confirmed PCP Name: Sabrina Duran Seen in last 2 years?: Yes Primary Caregiver: Family If assistance needed, confirmed caregiver ready, willing and able to care for patient at discharge: Yes (mother and 2 bothers) Confirmed with: [facility] broth Living Arrangements Current Residence: House [...] Cont's on IV ATBX. Planned Discharge Disposition: Shelter Facility Spoke with brother Wayne by phone to discuss disch plan, therapy recommendation fro SNF. He does not want his sister to go to a SNF. Offered HHC, he states he will discuss with pt's mother. Barriers/Today we still Wait: Administering IV medications, Clinical stability, Color Developer recommendations (comment), Procedure (comment) Length of Stay [...] for transfer. Pt transferred to ICU by MATERIALS MGMT TECH with out complication. Care Management Progress Note Short Medical why still here: clinical stability. Surgery planned for Wednesday. Planned Discharge Disposition: Shelter Facility LVM for pt's brother Wayne isidro [...] still Wait: Administering IV medications, Clinical stability, Color Developer recommendations (comment), Diagnostic workup Length of Stay (Days): 3 GMLOS: No GMLOS Documented . Care Management Progress Note Short Medical why still here: Needs a cookie swallow. PT recommends SNF. Need OT to eval. Will call mom to see what she wants. Planned Discharge Disposition: Home or Self Care Barriers/Today we still Wait: Clinical stability, Color Developer recommendations (comment), Diagnostic workup Length of Stay (Days): 2 GMLOS: No GMLOS Documented ARELY received call back from [facility]. Pt lives with her mother, Johana- [phone] and two brothers. Brother Robin's phone number is [phone]. Dr Pepper is her PCP. ARELY sent chat to with update. ARELY asked to assist with finding family. No NOK listed. Pt was at [facility] and transferred to [facility]. ARELY left message at [facility] Cm dept to see if they have anyone on file. ARELY called [facility] DD to see if she was active with them and she is not. ARELY looked at [facility] probate website and called Probate court- no [...] Medical why still here: Pt transferred from [facility]. She came with vaginal bleeding. Her CA 157 is elevated. SENIOR CISCO NETWORK ENGINEER consulted. May need surgery. Planned Discharge Disposition: Home or Self Care Barriers/Today we still Wait: Clinical stability, Color Developer recommendations (comment), Diagnostic workup Length of Stay (Days): 1 GMLOS: No GMLOS Documented documented in this encounter [facility] 06-29-2025 History of Presen t [...] (kg): 50 kg Total Energy Requirements (kcals/day): 5490-9912 (25-30 kcals/kg) Weight Used for Protein Requirements: [...] kg (189 lb) Weight Source: Bed Scale [place] Body Weight (lbs) (Calculated): 125 lbs [place] Body Weight (Kg) (Calculated): 57 kg % [place] Body Weight (Calculated): 150.3 % BMI (kg/m2) [...] diet Nadia Ricardo, MS RD LD Contact: [employer] or *22595 [1] atorvastatin, 20 mg, Oral, Nightly digoxin, 125 mcg, Oral, Daily melatonin, 3 mg, Oral, Nightly metoprolol tartrate, 25 mg, Oral, q8h pantoprazole, 40 mg, Oral, Nightly sodium chloride 0.9%, 5-40 mL, IntraVENous, q12h sodium chloride 0.9%, 5-40 mL, IntraVENous, q12h stomahesive in petrolatum, , Topical, q8h [2] RTHOMEO2[[id number]] Respiratory Therapy Home O2 Progress Note O2 [...] original note were not included. PHYSICAL THERAPY [facility] Treatment Note Name/MRN: Nancy Delacruz ([id number]) Date of : 1965 Age: 59 y.o. Room/Bed: 5125/-5125 A Discharge Recommendation: Shelter Facility Equipment Needed: (tbd) Assessment The pt [...] upon entry, and brother in room and certified nursing assistant instructor upon PT exit. Restraints: No Education Education [...] Minutes: 24 Minutes (two FA) Variance: 1 (pastry assistant present for hygiene) Shant Shae PT Hospitalist Progress Note 06/29/2025 10:45 AM [phone]: Please page me for patient care issues. [phone]: Please page [facility] night Hospitalist for any issues. Subjective: Admit Date: 06/11/2025 PCP: SABRINA DURAN Room#: H-5125/H-9806 A Interval History: 59 yo F Hx of developmental delay, A-fib, HTN, HLD, CVA w/ residual right-sided deficits who presented from [facility] where she presented for hemorrhagic shock 2/2 vaginal bleeding and required 4 units of PRBC. Found to have endometrial carcinoma, confirmed with biopsy. Transferred to [facility] for further care with plan for hysterectomy, bilateral salpingo-oophorectomy, sentinel lymphadenectomy for 06/18. On 06/17 patient developed worsening dyspnea and Afib w/ RVR and was transferred to the ICU for management of acute hypoxic respiratory failure likely 2/2 TRALI and needed NIV, now weaned to Nasal cannula w/ nocturnal pap. HOSPICE CARE CONSULTANT/ONC following and planning for D&C with levonorgestrel intrauterine device in the interim. Eventual plan for laparoscopic hysterectomy, bilateral salpingo-oophorectomy, bilateral sentinel lymphadenectomy when more medically stable. Seen by cards and med adjustments made with better HRs. No OAC until vaginal bleeding issues resolved. Possible cardioversion down the road. Patient stabilized and transferred out of ICU onto [facility] hospitalist service. 06/26 Patient seen and examined.procedure [...] Medical History: Medical History[1] Adult diet Regular @[id number]@ Medications: Continuous Meds[2] Scheduled Meds[3] LABS: CBC: [...] today to document rhythm-- remains afib - HOSPICE CARE CONSULTANT/ONC following and planning for D&C with levonorgestrel [...] Wayne Delacruz Mobile Relation: Brother Preferred language: [place] Secondary Emergency Contact: Johana Delacruz Mobile Relation: Mother Preferred language: [place] Advance Directive: Full Code Anticipated Discharge - [...] from the original note were not included. 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 Patient waiting for clinical improvement before proceeding with MARY and further surgical interventions. Patient was treated with abx and diuresis for pna and possible fluid overload. Interval History Patient s/p D&C. Patient on 2lnc. Denies acute complaints today, reports her breathing feels good. Brother at bedside, does not have any acute concerns. Reports they wish to follow up with pulmonary at [place] which is much closer to home. All [...] diuresis as tolerated S/P D&C, tissue pending. HOSPICE CARE CONSULTANT notes plan for need of further intervention [...] whoever she establishes with request records from [facility]. Pulmonary service will sign off, please call [...] PM EDT I have personally performed a [id number] diagnostic evaluation on this patient on date of service 06/29/25. History, labs, imaging studies, and electronic medical record have been reviewed by me. This note documented by the [x]smokehouse worker []EVE reflects my history, exam, and medical [...] from the original note were not included. [facility] Pulmonary Medicine [address] [place] [address] Patient - Nancy Delacruz, Age - 59 y.o. 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 Patient waiting for clinical improvement before [...] scans from [facility]. Continue diuresis as tolerated Cassandra Developer/onc, plan for D&C today, will likely need [...] PM EDT I have personally performed a puid-nu-fuyd diagnostic evaluation on this patient on date of service 06/28/25. History, labs, imaging studies, and electronic medical record have been reviewed by me. This note documented by the [x]smokehouse worker []EVE reflects my history, exam, and medical [...] original note were not included. PHYSICAL THERAPY [facility] Name/MRN: Nancy Delacruz ([id number]) Date: 06/28/2025 Treatment is being deferred at present because pt is currently off of the floor . Shant Shea, PT Hospitalist Progress Note 06/28/2025 10:57 AM [phone]: Please page me for patient care issues. [phone]: Please page [facility] night Hospitalist for any issues. Subjective: Admit Date: 06/11/2025 PCP: SABRINA DURAN Room#: H-5125/H-5125 A Interval History: 59 yo F Hx of developmental delay, A-fib, HTN, HLD, CVA w/ residual right-sided deficits who presented from [facility] where she presented for hemorrhagic shock 2/2 vaginal bleeding and required 4 units of PRBC. Found to have endometrial carcinoma, confirmed with biopsy. Transferred to [facility] for further care with plan for hysterectomy, bilateral salpingo-oophorectomy, sentinel lymphadenectomy for 06/18. On 06/17 patient developed worsening dyspnea and Afib w/ RVR and was transferred to the ICU for management of acute hypoxic respiratory failure likely 2/2 TRALI and needed NIV, now weaned to Nasal cannula w/ nocturnal pap. HOSPICE CARE CONSULTANT/ONC following and planning for D&C with levonorgestrel intrauterine device in the interim. Eventual plan for laparoscopic hysterectomy, bilateral salpingo-oophorectomy, bilateral sentinel lymphadenectomy when more medically stable. Seen by cards and med adjustments made with better HRs. No OAC until vaginal bleeding issues resolved. Possible cardioversion down the road. Patient stabilized and transferred out of ICU onto [facility] hospitalist service. 06/26 Patient seen and examined.procedure [...] Medical History[1] NPO diet with enteral medications @[id number]@ Medications: Continuous Meds[2] Scheduled Meds[3] LABS: CBC: [...] today to document rhythm-- remains afib - HOSPICE CARE CONSULTANT/ONC following and planning for D&C with levonorgestrel [...] Contact: ChelseaWayne Mobile Relation: Brother Preferred language: [place] Secondary Emergency Contact: GeethaalissonJohana Mobile Relation: Mother Preferred language: [place] Advance Directive: Full Code Anticipated Discharge - [...] from the original note were not included. HOSPICE CARE CONSULTANT Progress Note Please page the [facility] HOSPICE CARE CONSULTANT ONC Call RES group via Secure Chat [...] 06/12/2025 Patient Name: NANCY DELACRUZ : 1965 [id number] Exam Date/Time: 06/12/2025 10:56 Procedure: XR CHEST [...] Acute blood loss anemia Please page the [facility] HOSPICE CARE CONSULTANT ONC Call RES group via Secure Chat [...] placement. Hospitalist Progress Note 06/27/2025 11:01 AM [phone]: Please page me for patient care issues. [phone]: Please page [facility] night Hospitalist for any issues. Subjective: Admit Date: 06/11/2025 PCP: SABRINA DURAN Room#: H-5125/H-5125 A Interval History: 59 yo F Hx of developmental delay, A-fib, HTN, HLD, CVA w/ residual right-sided deficits who presented from [facility] where she presented for hemorrhagic shock 2/2 vaginal bleeding and required 4 units of PRBC. Found to have endometrial carcinoma, confirmed with biopsy. Transferred to [facility] for further care with plan for hysterectomy, bilateral salpingo-oophorectomy, sentinel lymphadenectomy for 06/18. On 06/17 patient developed worsening dyspnea and Afib w/ RVR and was transferred to the ICU for management of acute hypoxic respiratory failure likely 2/2 TRALI and needed NIV, now weaned to Nasal cannula w/ nocturnal pap. HOSPICE CARE CONSULTANT/ONC following and planning for D&C with levonorgestrel intrauterine device in the interim. Eventual plan for laparoscopic hysterectomy, bilateral salpingo-oophorectomy, bilateral sentinel lymphadenectomy when more medically stable. Seen by cards and med adjustments made with better HRs. No OAC until vaginal bleeding issues resolved. Possible cardioversion down the road. Patient stabilized and transferred out of ICU onto [facility] hospitalist service. 06/26 Patient seen and examined.procedure [...] Medical History: Medical History[1] Adult diet Regular @[id number]@ Medications: Continuous Meds[2] Scheduled Meds[3] LABS: CBC: [...] check ECG today to document rhythm - HOSPICE CARE CONSULTANT/ONC following and planning for D&C with levonorgestrel [...] Wayne Delacruz Mobile Relation: Brother Preferred language: [place] Secondary Emergency Contact: Johana Delacruz Mobile Relation: Mother Preferred language: [place] Advance Directive: Full Code Anticipated Discharge - [...] from the original note were not included. 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 Patient waiting for clinical improvement before [...] assess for resolution Continue diuresis as tolerated Cassandra Developer/onc, plan for D&C on . Discussed with [...] PM EDT I have personally performed a [id number]-[id number] diagnostic evaluation on this patient on date of service 06/27/25. History, labs, imaging studies, and electronic medical record have been reviewed by me. This note documented by the [x]smokehouse worker []EVE reflects my history, exam, and medical decision making. I have reviewed and agree with the care plan except as documented below. Sitting in chair at bedside this morning. Satting well on 1L O2. Denied any respiratory complaints. Cr has normalized. Would continue with diuresis. Ideally would obtain prior imaging from [place] for comparison, but regardless will need follow up imaging outpatient which the family plans to complete in [place]. Titrate off O2 NC. PT, OOBTC. Nutrition [...] diet resumed. Patient transferred to 06/20. Per HOSPICE CARE CONSULTANT ONC the patient's best option is to [...] kg (189 lb) Weight Source: Bed Scale [place] Body Weight (lbs) (Calculated): 125 lbs [place] Body Weight (Kg) (Calculated): 57 kg % [place] Body Weight (Calculated): 150.3 % BMI (kg/m2) [...] determine Nadia Ricardo MS RD LD Contact: [employer] or *07709 [1] atorvastatin, 20 mg, Oral, Nightly digoxin, 125 mcg, Oral, Daily melatonin, 3 mg, Oral, Nightly metoprolol tartrate, 25 mg, Oral, q8h pantoprazole, 40 mg, Oral, Nightly sodium chloride 0.9%, 5-40 mL, IntraVENous, q12h sodium chloride 0.9%, 5-40 mL, IntraVENous, q12h stomahesive in petrolatum, , Topical, q8h [2] Images from the original note were not included. OCCUPATIONAL THERAPY [facility] Initial Evaluation Name/MRN: Nancy Delacruz ([id number]) Evaluation Date: 06/26/2025 Date of : 1965 Admission Date: 06/11/2025 10:35 PM Age: 59 y.o. Room/Bed: -5125/H-5125 A Discharge Recommendation: Shelter Facility Assessment IMPRESSION: ADL function is below [...] Needs Assist Receives Help From: Family Active Final Application Reviewer: No Prior Level of Function Prior Level [...] Daily Activity Raw Score: 14 ADL Inpatient [facility] G-Code Modifier: CK Plan Pt would benefit [...] of Care supervision is transferred to a [facility] Occupational Therapist. Goals and/or treatment plan was established in collaboration with patient/family/other representatives. Merlene Choe OTR/L [1] Past Medical History: Diagnosis Date A-fib (HCC) Developmental delay [2] No past surgical history on file. Images from the original note were not included. 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 Patient waiting for clinical improvement before [...] ground glass infiltrate. Continue diuresis Discussed with store team leader/onc, plan for D&C on . Discussed with [...] PM EDT I have personally performed a lwvv-mc-tibm diagnostic evaluation on this patient on date of service 06/26/25. History, labs, imaging studies, and electronic medical record have been reviewed by me. This note documented by the [x]smokehouse worker []EVE reflects my history, exam, and medical [...] original note were not included. PHYSICAL THERAPY [facility] Treatment Note Name/MRN: Nancy Delacruz ([id number]) Date of : 1965 Age: 59 y.o. Room/Bed: 5125/-5125 A Discharge Recommendation: Shelter Facility Equipment Needed: (tbd) Assessment Pt demo [...] PT Hospitalist Progress Note 06/26/2025 9:42 AM [phone]: Please page me for patient care issues. [phone]: Please page [facility] night Hospitalist for any issues. Subjective: Admit Date: 06/11/2025 PCP: SABRINA DURAN Room#: H-5125/H-5125 A Interval History: 59 yo F Hx of developmental delay, A-fib, HTN, HLD, CVA w/ residual right-sided deficits who presented from [facility] where she presented for hemorrhagic shock 2/2 vaginal bleeding and required 4 units of PRBC. Found to have endometrial carcinoma, confirmed with biopsy. Transferred to [facility] for further care with plan for hysterectomy, bilateral salpingo-oophorectomy, sentinel lymphadenectomy for 06/18. On 06/17 patient developed worsening dyspnea and Afib w/ RVR and was transferred to the ICU for management of acute hypoxic respiratory failure likely 2/2 TRALI and needed NIV, now weaned to Nasal cannula w/ nocturnal pap. HOSPICE CARE CONSULTANT/ONC following and planning for D&C with levonorgestrel intrauterine device in the interim. Eventual plan for laparoscopic hysterectomy, bilateral salpingo-oophorectomy, bilateral sentinel lymphadenectomy when more medically stable. Seen by cards and med adjustments made with better HRs. No OAC until vaginal bleeding issues resolved. Possible cardioversion down the road. Patient stabilized and transferred out of ICU onto [facility] hospitalist service. 06/26 Patient seen and examined.procedure [...] Medical History[1] NPO diet with enteral medications @[id number]@ Medications: Continuous Meds[2] Scheduled Meds[3] LABS: CBC: [...] medically stable and healed from surgery - HOSPICE CARE CONSULTANT/ONC following and planning for D&C with levonorgestrel [...] Wayne Delacruz Mobile Relation: Brother Preferred language: [place] Secondary Emergency Contact: Johana Delacruz Mobile Relation: Mother Preferred language: [place] Advance Directive: Full Code Anticipated Discharge - [...] from the original note were not included. [facility] Pulmonary Medicine [address] [place] [address] Patient - Nancy Delacruz, Age - 59 [...] weaned, path preliminary concerning for adenocarcinmoa of store team leader origin. Patient waiting for clinical improvement before [...] PM EDT I have personally performed a yqpi-ro-wxfr diagnostic evaluation on this patient on date of service 06/25/2025. History, labs, imaging studies, and electronic medical record have been reviewed by me. This note documented by the [x]smokehouse worker []EVE reflects my history, exam, and medical [...] biopsy positive for endometrial adenocarcinoma. Transferred to [facility], course c/b respiratory failure requiring NIV in [...] original note were not included. PHYSICAL THERAPY [facility] Treatment Note Name/MRN: Nancy Delacruz ([id number]) Date of : 1965 Age: 59 y.o. Room/Bed: H-5125/H-5125 A Discharge Recommendation: Shelter Facility Equipment Needed: (tbd) Assessment The pt [...] PT Hospitalist Progress Note 06/25/2025 10:49 AM [phone]: Please page me for patient care issues. [phone]: Please page [facility] night Hospitalist for any issues. Subjective: Admit Date: 06/11/2025 PCP: SABRINA DURAN Room#: H-5125/H-5125 A Interval History: 59 yo F Hx of developmental delay, A-fib, HTN, HLD, CVA w/ residual right-sided deficits who presented from [facility] where she presented for hemorrhagic shock 2/2 vaginal bleeding and required 4 units of PRBC. Found to have endometrial carcinoma, confirmed with biopsy. Transferred to [facility] for further care with plan for hysterectomy, bilateral salpingo-oophorectomy, sentinel lymphadenectomy for 06/18. On 06/17 patient developed worsening dyspnea and Afib w/ RVR and was transferred to the ICU for management of acute hypoxic respiratory failure likely 2/2 TRALI and needed NIV, now weaned to Nasal cannula w/ nocturnal pap. HOSPICE CARE CONSULTANT/ONC following and planning for D&C with levonorgestrel intrauterine device in the interim. Eventual plan for laparoscopic hysterectomy, bilateral salpingo-oophorectomy, bilateral sentinel lymphadenectomy when more medically stable. Seen by cards and med adjustments made with better HRs. No OAC until vaginal bleeding issues resolved. Possible cardioversion down the road. Patient stabilized and transferred out of ICU onto [facility] hospitalist service. 06/25 Patient seen and examined.No [...] Medical History[1] NPO diet with enteral medications @[id number]@ Medications: Continuous Meds[2] Scheduled Meds[3] LABS: CBC: [...] okay to proceed with the procedure per HOSPICE CARE CONSULTANT. CT chest to be ordered. Continue diuresis - Continue telemetry monitoring, Metoprolol 25 mg q8h for rate control, Digoxin 125 mcg PO daily, per cards will consider resuming DOAC and consider cardioversion once pt medically stable and healed from surgery - HOSPICE CARE CONSULTANT/ONC following and planning for D&C with levonorgestrel [...] Wayne Delacruz Mobile Relation: Brother Preferred language: [place] Secondary Emergency Contact: Johana Delacruz Mobile Relation: Mother Preferred language: [place] Advance Directive: Full Code Anticipated Discharge - [...] from the original note were not included. Cassandra Developer Oncology Progress Note Date: 06/25/2025 Time: 8:15 AM Please page the [facility] HOSPICE CARE CONSULTANT ONC Call RES group via Secure Chat [...] - Management per primary Please page the [facility] HOSPICE CARE CONSULTANT ONC Call RES group via Secure Chat [...] stable. Hospitalist Progress Note 06/24/2025 1:07 PM [phone]: Please page me for patient care issues. [phone]: Please page [facility] night Hospitalist for any issues. Subjective: Admit Date: 06/11/2025 PCP: SABRINA DURAN Room#: H-5125/H-5125 A Interval History: 59 yo F Hx of developmental delay, A-fib, HTN, HLD, CVA w/ residual right-sided deficits who presented from [facility] where she presented for hemorrhagic shock 2/2 vaginal bleeding and required 4 units of PRBC. Found to have endometrial carcinoma, confirmed with biopsy. Transferred to [facility] for further care with plan for hysterectomy, bilateral salpingo-oophorectomy, sentinel lymphadenectomy for 06/18. On 06/17 patient developed worsening dyspnea and Afib w/ RVR and was transferred to the ICU for management of acute hypoxic respiratory failure likely 2/2 TRALI and needed NIV, now weaned to Nasal cannula w/ nocturnal pap. HOSPICE CARE CONSULTANT/ONC following and planning for D&C with levonorgestrel intrauterine device in the interim. Eventual plan for laparoscopic hysterectomy, bilateral salpingo-oophorectomy, bilateral sentinel lymphadenectomy when more medically stable. Seen by cards and med adjustments made with better HRs. No OAC until vaginal bleeding issues resolved. Possible cardioversion down the road. Patient stabilized and transferred out of ICU onto [facility] hospitalist service. 06/24 Patient seen and examined.No new event overnight Patient sitting up in chair. Tolerating diet On nasal cannula oxygen Reviewed labs in detail as below Discussed with TCC and nursing Care plan discussed Past Medical History: Medical History[1] Adult diet Regular @[id number]@ Medications: Continuous Meds[2] Scheduled Meds[3] LABS: CBC: [...] medically stable and healed from surgery - HOSPICE CARE CONSULTANT/ONC following and planning for D&C with levonorgestrel [...] Wayne Delacruz Mobile Relation: Brother Preferred language: [place] Secondary Emergency Contact: Johana Delacruz Mobile Relation: Mother Preferred language: [place] Advance Directive: Full Code Anticipated Discharge - [...] from the original note were not included. [facility], Pulmonary Critical Care and Sleep Medicine Patient [...] Turner, Primary Care Physician - [id number] Date of Admission - 06/11/2025 10:35 PM [...] Admit Date: 06/11/2025 PCP: SABRINA DURAN Room#: H-5125/H-6635 A Brief Hospital course: 59 yo F Hx of developmental delay, A-fib, HTN, HLD, CVA w/ residual right-sided deficits who presented from [facility] where she presented for hemorrhagic shock 2/2 vaginal bleeding and required 4 units of PRBC. Found to have endometrial carcinoma, confirmed with biopsy. Transferred to [facility] for further care with plan for hysterectomy, bilateral salpingo-oophorectomy, sentinel lymphadenectomy for 06/18. On 06/17 patient developed worsening dyspnea and Afib w/ RVR and was transferred to the ICU for management of acute hypoxic respiratory failure likely 2/2 TRALI and needed NIV, now weaned to Nasal cannula w/ nocturnal pap. HOSPICE CARE CONSULTANT/ONC following and planning for D&C with levonorgestrel intrauterine device in the interim. Eventual plan for laparoscopic hysterectomy, bilateral salpingo-oophorectomy, bilateral sentinel lymphadenectomy when more medically stable. Seen by cards and med adjustments made with better HRs. No OAC until vaginal bleeding issues resolved. Possible cardioversion down the road. Patient stabilized and transferred out of ICU onto [facility] hospitalist service. Interval History: 06/22 ON: No [...] bleeding -Awaiting D & C procedure by OFFICE HELPER team possibly on 06/25 -follow up CXR [...] medically stable and healed from surgery - HOSPICE CARE CONSULTANT/ONC following and planning for D&C with levonorgestrel [...] SidmonikWayne navarro Mobile Relation: Brother Preferred language: [place] Secondary Emergency Contact: Johana Delacruz Mobile Relation: Mother Preferred language: [place] Waqas Turner, Division of Hospital Medicine Inpatient Medical Services/[facility] [1] No past medical history on file. [...] original note were not included. PHYSICAL THERAPY [facility] Name/MRN: Nancy Delacruz ([id number]) Date: 06/22/2025 Treatment is being deferred at [...] pap and des[facility] states it took about 40 minutes [...] ABGs: Recent Labs 06/22/25 0856 PHART 7.482* VDB0VQC 32.5* PO2ART 79.2* JCJ5CIS 23.8 [id number] [place] High Flow Nasal Cannula (6-15 LPM) [...] Nightly, Catherine Neopaney, DO, 3 mg at 06/21/251952 metoprolol [...] w/ residual right-sided deficits who presented from [facility] where she presented for hemorrhagic shock 2/2 vaginal bleeding and required 4 units of PRBC. Found to have endometrial carcinoma, confirmed with biopsy. Transferred to [facility] for further care with plan for hysterectomy, bilateral salpingo-oophorectomy, sentinel lymphadenectomy for 06/18. On 06/17 patient developed worsening dyspnea and Afib w/ RVR and was transferred to the ICU for management of acute hypoxic respiratory failure likely 2/2 TRALI and needed NIV, now weaned to Nasal cannula w/ nocturnal pap. HOSPICE CARE CONSULTANT/ONC following and planning for D&C with levonorgestrel intrauterine device in the interim. Eventual plan for laparoscopic hysterectomy, bilateral salpingo-oophorectomy, bilateral sentinel lymphadenectomy when more medically stable. Seen by cards and med adjustments made with better HRs. No OAC until vaginal bleeding issues resolved. Possible cardioversion down the road. Patient stabilized and transferred out of ICU onto [facility] hospitalist service. Interval History: 06/22 ON: No [...] medically stable and healed from surgery - HOSPICE CARE CONSULTANT/ONC following and planning for D&C with levonorgestrel [...] Wayne Delacruz Mobile Relation: Brother Preferred language: [place] Secondary Emergency Contact: Johana Delacruz Mobile Relation: Mother Preferred language: [place] Waqas Turner DO Division of Hospital Medicine Inpatient Medical Services/[facility] [1] No past medical history on file. [...] original note were not included. PHYSICAL THERAPY [facility] Name/MRN: Nancy Delacruz ([id number]) Date: 06/21/2025 Pt is alert and oriented [...] w/ residual right-sided deficits who presented from [facility] where she presented for hemorrhagic shock 2/2 vaginal bleeding and required 4 units of PRBC. Found to have endometrial carcinoma, confirmed with biopsy. Transferred to [facility] for further care with plan for hysterectomy, bilateral salpingo-oophorectomy, sentinel lymphadenectomy for 06/18. On 06/17 patient developed worsening dyspnea and Afib w/ RVR and was transferred to the ICU for management of acute hypoxic respiratory failure likely 2/2 TRALI and needed NIV, now weaned to Nasal cannula w/ nocturnal pap. HOSPICE CARE CONSULTANT/ONC following and planning for D&C with levonorgestrel intrauterine device in the interim. Eventual plan for laparoscopic hysterectomy, bilateral salpingo-oophorectomy, bilateral sentinel lymphadenectomy when more medically stable. Seen by cards and med adjustments made with better HRs. No OAC until vaginal bleeding issues resolved. Possible cardioversion down the road. Patient stabilized and transferred out of ICU onto [facility] hospitalist service. Interval History: 06/21/2025-No overnight issues. [...] medically stable and healed from surgery - HOSPICE CARE CONSULTANT/ONC following and planning for D&C with levonorgestrel [...] Wayne Delacruz Mobile Relation: Brother Preferred language: [place] Secondary Emergency Contact: Johana Delacruz Mobile Relation: Mother Preferred language: [place] Bryan Arenas DO Division of Hospital Medicine Inpatient Medical Services/[facility] [1] No past medical history on file. [...] not included. Speech-Language Pathology SPEECH LANGUAGE PATHOLOGY [facility] Dysphagia Treatment Note Patient Name: Nancy Delacruz Evaluation Date: 06/21/2025 Date of : 1965 Admission Date: 06/11/2025 10:35 PM Age: 59 y.o. Room[facility]Bed: [facility] A Subjective Patient alert and cooperative. Seen upright in bed. Answers all basic questions with clear, strong vocal quality. Follows all basic commands. Visitors at bedside - brother, who was feeding her lunch. Current Diet: Dietary Orders (From admission, onward) Start Ordered 06/21/25 0719 Adult diet Regular Diet effective now Question: Diet type Answer: Regular 06/21/25 0718 06/20/25 1216 Supplement:Dinner; Glucerna Shake [place] Until discontinued Question Answer Comment Frequency Dinner Select supplement: Glucerna Shake [place] 06/20/25 1216 Aspiration Precautions: - Upright positioning [...] bites Patient has achieved all acute care GLASS BEVELLER goals. Speech therapy to sign off at [...] Expected End: 06/27/25 Resolved: 06/21/25 Therapy Time GLASS BEVELLER Individual Minutes Time In: 1314 Time Out: 1326 Minutes: 12 MARY KATE MataGLASS BEVELLER Pt took off NC to clean out [...] 22.7* ABGs: No results for input(s): "PHART", "EKV7UWD", "PO2ART", "INE7USP", "SO2ART", "Q9IDWDFV" in the last 72 hours. Lactic Acid: [...] Procedure: XR CHEST 1 VIEW Ordering Provider: FLMEING HARSHA Reason For Exam: hypoxia, infection vs [...] PM EDT I have personally performed a uovo-me-qyap diagnostic evaluation on this patient on date of service 06/21/25. History, labs, imaging studies, and electronic medical record have been reviewed by me. This note documented by the [x]smokehouse worker []EVE reflects my history, exam, and medical decision making. I have reviewed and agree with the care plan. Changes were made in the orders as necessary. ROS documentation was reviewed and negative unless otherwise stated in HPI. Additional pertinent interval history, ROS, and physical exam findings: Remains on 6L O2 Patient presented initially to [place] with anemia, vaginal bleeding. Received transfusion. Had respiratory failure/hypoxia. Echo showed elevated RVSP at 49, possible apical cardiomyopathy. Concern for TRALI. Also had afib with RVR. Cassandra Developer Onc planning D&C and IUD to control vaginal bleeding. Primary service, HOSPICE CARE CONSULTANT, and ICU notes reviewed. Assessment and Plan: [...] Recommendations/Plan: Recommend upgrade diet to Regular/Thin per GLASS BEVELLER recommendations today. Per MNT: discontinue chocolate Ensure BID and provide instead 1 [place] Glucerna (8oz, 220kcal, 10gm protein). Continue to [...] muscle mass loss Fluid Accumulation: Mild Extremities Teacher Resource Strength: Not Performed Nutrition Assessment: Pt transferred to ICU 06/17 with respiratory failure requiring NIV. NIV to NC 06/18 and diet resumed. Per HOSPICE CARE CONSULTANT ONC the patient's best option is to undergo dilation and curettage and levonorgestrel intrauterine device placement when medically stable. This should temporize any bleeding and treat the hyperplasia +/- low grade endometrial adenocarcinoma until patient is medically stable to undergo hysterectomy. Labs: BUN elevated 33, Cr elevated 1.15, Glucose low 77. Medications reviewed. GLASS BEVELLER had been recommending Easy to Chew/Thin, but [...] good. Brother asking if there is a [place] flavored supplement. Estimated Daily Nutrient Needs: Energy Requirements Based On: Kcal/kg Weight Used for Energy Requirements: Other (Comment) (estimated IBW) Weight for Energy Calculation (kg): 50 kg Total Energy Requirements (kcals/day): 5599-5973 (25-30 kcals/kg) Weight Used for Protein Requirements: [...] lb 13.3 oz) Weight Source: Bed Scale [place] Body Weight (lbs) (Calculated): 125 lbs [place] Body Weight (Kg) (Calculated): 57 kg % [place] Body Weight (Calculated): 150.3 % BMI (kg/m2) [...] soon to determine Cami Chavarria RD Contact: [place] or *[phone] ICU Transfer Checklist Transfer Med Reconciliation (resume home meds if able, convert to PO if able) Complete Antibiotics (name, indication, duration, convert to PO if able) None Steroid (indication, duration, convert to PO if able) None Anticipated [place] Medications (ICU initiated) or Dose Changes and Indication No Permanently Discontinued Home Medications and Reason for medication contraindication No Fiore Catheter (please remove if able. Note: place DC order) No Central Line (please remove if able. Note: place DC order) No Transfer Discussed with: [facility] If additional questions for ICU team within 24 hours of ICU transfer, page ICU residents for clarifications. Images from the original note were not included. Speech-Language Pathology SPEECH LANGUAGE PATHOLOGY [facility] Dysphagia Treatment Note Patient Name: Nancy Delacruz [...] follow to ensure diet tolerance. Continue acute GLASS BEVELLER therapy per initial plan of care and [...] Expected End: 06/15/25 Resolved: 06/13/25 Therapy Time GLASS BEVELLER Individual Minutes Time In: 1120 Time Out: 1130 Minutes: 10 MARIA DOLORES Smith Images from the original note were not included. PHYSICAL THERAPY [facility] Treatment Note Name/MRN: Nancy Delacruz ([id number]) Date of : 1965 Age: 59 y.o. Room/Bed: T2-223/T2-223 A Discharge Recommendation: Shelter Facility Equipment Needed: No (Pt owns transport [...] w/ residual right-sided deficits who presented from [facility] where she presented for hemorrhagic shock 2/2 vaginal bleeding and required 4 units of PRBC. Found to have endometrial carcinoma, confirmed with biopsy. Transferred to [facility] for further care with plan for hysterectomy, [...] Anterior;Left Forearm (Active) Number of days: 1 [facility] Peripheral IV 06/17/25 Right Expires 07/17/2025 (Active) [...] Normal [] Scar/Lesion/Mass Inspection of teeth/lips/gums Dentition: [][place] Teeth []Dentures Lips/Gums: [x]Intact []Lesion Present Mucosa: [x][place] []Moist []Dry Neck: External Appearance Overall Appearance: [...] ABGs: Recent Labs 06/17/25 1740 PHART 7.512* SGT5AXW 31.5* PO2ART 73.7* QQO8ZPB 24.7 [id number] Non-Invasive Ventilator Lactic Acid: Recent Labs 06/17/25 [...] is stable to be transferred to the [facility]. GI/FEN: - Per chart review endoscopy performed at outside hospital 05/23 demonstrated "non-bleeding ulcers" - Adult diet, easy to chew : RAMEZ-improved Endometrioid adenocarcinoma - Previous plan for laparoscopic hysterectomy, bilateral salpingo-oophorectomy, bilateral sentinel lymphadenectomy on 06/18, now delayed - Per store team leader/onc current plan for D&C with levonorgestrel IUD - Cassandra Developer/Onc following Endo: Stable Heme/Onc: Acute blood loss anemia - Received 1 unit pRBC 06/19 - Continue to monitor with repeat H and H today. Due to concern for TRALI, reconsider immediate transfusion if Hgb<7. Assess clinical status to determine if transfusion necessary. MSK: R. Forearm skin tear - Wound care has signed off - PT/OT as able Lines: R terminal gauger supervisor PIV, L PIV GI Prophylaxis: Pantoprazole PO DVT Prophylaxis: SCDs Disposition: Transfer to [facility] Patient seen and examined independently. Interval [...] PM EDT I have personally performed a sqzs-ac-fise diagnostic evaluation on this patient on date of service 06/20/2025. History, labs, imaging studies, and electronic medical record have been reviewed by me. This note documented by the [x]smokehouse worker []EVE reflects my history, exam, and medical decision making. I have reviewed and agree with the care plan. Changes were made in the orders as necessary. ROS documentation was reviewed and negative unless otherwise stated in HPI. Additional pertinent interval history, ROS, and physical exam findings: Ms Dleacruz seen and evaluated at bedside. No acute [...] to maintain >7 -Hold parameters for metoprolol -Cassandra Developer/onc following, plan for D&C with levonorgestrel intrauterine [...] original note were not included. PHYSICAL THERAPY [facility] Re-Evaluation Name/MRN: Nancy Delacruz ([id number]) Evaluation Date: 06/19/2025 Date of : 1965 Admission Date: 06/11/2025 10:35 PM Age: 59 y.o. Room/Bed: T2-223/T2-223 A Discharge Recommendation: Shelter Facility Equipment Needed: No (Pt owns transport [...] of Care supervision is transferred to a [facility] Therapy Services Physical Therapist. Goals and/or [...] signing off for vancomycin dosing. Khushi Lara [facility], Date: 06/19/25 Time: 10:55 AM [facility] [place] [facility] [place] Cardiology /Electrophysiology Progress Note HPI / Interval [...] of Cardiovascular Disease, Division of Heart Failure [facility] [place] 9:32 AM 06/19/25 Images from the original note were not included. Speech-Language Pathology SPEECH LANGUAGE PATHOLOGY [facility] Dysphagia Treatment Note Patient Name: Nancy Delacruz [...] is tolerating current diet with supervision - certified nursing assistant instructor assists at close of session. Plan & Recommendations Plan: ST to follow to ensure diet tolerance. Continue acute GLASS BEVELLER therapy per initial plan of care and [...] Expected End: 06/15/25 Resolved: 06/13/25 Therapy Time GLASS BEVELLER Individual Minutes Time In: 822 Time Out: 830 Minutes: 8 MARIA DOLORES Smith Pharmacy to Dose Vancomycin - Progress Note Lab Results Component Value Date CREATININE 1.16 (H) 06/19/2025 BUN 33 (H) 06/19/2025 WBC 9.7 06/19/2025 VANCOTROUGH 29.2 06/19/2025 Doses, serum creatinine, and vancomycin levels interfaced automatically to Passado and data has been analyzed and interpreted. [...] w/ residual right-sided deficits who presented from [facility] where she presented for hemorrhagic 2/2 vaginal bleeding. Hospital course complicated by pulmonary edema, pneumonia, hypoxemic, respiratory failure requiring intubation, and biopsy positive for endometrioid carcinoma. Transferred to [facility] for further care with plan for hysterectomy, [...] Anterior;Left Forearm (Active) Number of days: 0 [employer]eles[employer] Professional Peripheral IV 06/17/25 Right Expires 07/17/2025 [...] Normal [] Scar/Lesion/Mass Inspection of teeth/lips/gums Dentition: [][place] Teeth []Dentures Lips/Gums: [x]Intact []Lesion Present Mucosa: [x][place] []Moist []Dry Neck: External Appearance Overall Appearance: [...] ABGs: Recent Labs 06/17/25 1740 PHART 7.512* [id number] 31.5* PO2ART 73.7* OIO7BRF 24.7 [id number] Non-Invasive Ventilator Lactic Acid: Recent Labs 06/17/251824 [...] lymphadenectomy on 06/18, now delayed - Per store team leader/onc, consider po progestin if bleeding increases - Cassandra Developer/Onc following Endo: Stable Heme/Onc: Acute blood loss anemia - Receiving 1 unit pRBC this AM, post transfusion Hemoglobin of 9 (from 6.7) MSK: R. Forearm skin tear - Wound care has signed off - PT/OT as able Lines: R assisted PIV, L PIV GI Prophylaxis: Pantoprazole PO [...] PM EDT I have personally performed a [id number] diagnostic evaluation on this patient on date of service 06/19/2025. History, labs, imaging studies, and electronic medical record have been reviewed by me. This note documented by the [x]smokehouse worker []EVE reflects my history, exam, and medical [...] to maintain >7 -Hold parameters for metoprolol -Cassandra Developer/onc following, plan for D&C with levonorgestrel intrauterine [...] L/min Invasive Lines / Tubes / Drains: [employer] Professional Peripheral IV 06/17/25 Right Expires 07/17/2025 [...] Normal [] Scar/Lesion/Mass Inspection of teeth/lips/gums Dentition: [][place] Teeth []Dentures - poor dentition Lips/Gums: [x]Intact []Lesion Present Mucosa: [x][place] []Moist []Dry Neck: External Appearance Overall Appearance: [...] 25.1* ABGs: Recent Labs 06/17/251739 PHART 7.512* [id number] 31.5* PO2ART 73.7* JWK7GNA 24.7 [id number] Non-Invasive Ventilator Lactic Acid: Recent Labs 06/17/251824 [...] No anticoag given bleeding issues Discussed with store team leader-onc; plan for dilation and curettage and levonorgestrel [...] original note were not included. PHYSICAL THERAPY [facility] Name/MRN: Nancy Delacruz ([id number]) Date: 06/18/2025 Re-evaluation is being deferred at [...] solids with thin liquids. Viji Chau M.A., CCC-GLASS BEVELLER Images from the original note were not included. [facility] Progress Note Nancy Delacruz AGE: 59 y.o. GENDER: female : 1965 Subjective: HISTORY of PRESENT ILLNESS HPI Nancy Delacruz is a 59 y.o. female who presents for a wound care progress note. HPI: Per chart review, patient has been hospitalized for 21 days at [facility] inpatient on PCU. Pt initially presented with altered mental status and hemoglobin of 3.6 and lactic of 6.7. Pt was found to have extensive vaginal bleeding. Patient has been transferred from [facility] to [facility] for further evaluation and management of vaginal [...] creatinine, and vancomycin levels interfaced automatically to Passado and data has been analyzed and interpreted. [...] from the original note were not included. Cassandra Developer Oncology Progress Note Date: 06/18/2025 Time: 6:04 AM Please page the [facility] HOSPICE CARE CONSULTANT ONC Call RES group via Secure Chat [...] Oral, q6h PRN, 650 mg at 06/17/25 0814 OR acetaminophen (Tylenol) suppository 650 mg, 650 [...] , Topical, q8h, Mayra MARIMAR MathisN - PLASTIC ROLLER, Given at 06/18/25 0527 stomahesive in petrolatum (ET Mix), , Topical, PRN, Mayra Emiliamelian BICYCLE COURIER - PLASTIC ROLLER [COMPLETED] vancomycin IVPB 1500 mg in 250 [...] Stage 1 - Present on admission to [facility] - Would care consulted per primary Plan to be discussed with Dr. Rodriguez Please page the [facility] HOSPICE CARE CONSULTANT ONC Call RES group via Secure Chat [...] reviewed. At present, I think from a store team leader standpoint, the patient's best option is to undergo dilation and curettage and levonorgestrel intrauterine device placement when medically stable. This should temporize any bleeding and treat the hyperplasia +/- low grade endometrial adenocarcinoma until patient is medically stable to undergo hysterectomy. Plan of care discussed with the patient's mother over the phone. We will continue to follow along. Family Communication Number Called: [phone] Name of Designated Family Route Sales Delivery Drivers Supervisor: Johana Delacruz Relationship: mother Phone Call Outcome: I spoke with the individual listed above. Family Route Sales Delivery Drivers Supervisor Updated on the Following: Discussed transfer to ICU due to respiratory failure. May need intubation overnight. Cassandra Developer/onc procedure will likely need to be delayed. [...] creatinine, and vancomycin levels interfaced automatically to Passado and data has been analyzed and interpreted. [...] Admit Date: 06/11/2025 PCP: SABRINA DURAN Room#: W2-652/W4-200 A BRIEF HOSPITAL COURSE: PER PRIOR NOTES: 59 y.o. female with history of HTN, HLD, atrial fibrillation, developmental delay, stroke with Right hemiparesis who was transferred to [facility] from OSH on 06/11/25 for vaginal bleeding concerning for endometrial cancer. Patient reportedly with extensive hospitalization at [facility] and initially admitted for AMS, anemia [...] but lasix discontinued due to worsening creatinine. [facility] ICU team at reviewed hospital course from OSH and cleared patient for PCU. Patient transferred to [facility] under hospitalist service. Cassandra Developer-Onc consulted/evaluated at [facility], and stated that patient would be candidate [...] endometrial cancer and elevated CA125 -Seen by Cassandra Developer/onc -Tentative plan for minimally invasive hysterectomy, bilateral [...] Wayne Delacruz Mobile Relation: Brother Preferred language: [place] Secondary Emergency Contact: Johana Delacruz Mobile Relation: Mother Preferred language: [place] Sedrick Chavez DO Division of Hospitalist Medicine Acute care [facility] [1] No past medical history on file. [...] with Right hemiparesis who was transferred to [facility] from OSH on 06/11/25 for vaginal bleeding concerning for endometrial cancer. Patient reportedly with extensive hospitalization at [facility] and initially admitted for AMS, anemia [...] but lasix discontinued due to worsening creatinine. [facility] ICU team at reviewed hospital course from OSH and cleared patient for PCU. Patient transferred to [facility] under hospitalist service. Cassandra Developer-Onc consulted/evaluated at [facility], and stated that patient would be candidate [...] bleeding with concern for endometrial cancer Elevated [id number] blood loss anemia not requiring blood transfusion so far - store team leader onc has been following - 06/18 minimally [...] -Status post intubation Vital signs 05/25 at [place] - New oxygen requirement 3 L nasal [...] Wayne Delacruz Mobile Relation: Brother Preferred language: [place] Secondary Emergency Contact: Johana Delacruz Mobile Relation: Mother Preferred language: [place] Comment: Please note that portions of the [...] Amy Laguerre MD Division of Hospitalist Medicine [facility] [1] No past medical history [...] not included. Speech-Language Pathology SPEECH LANGUAGE PATHOLOGY [facility] Dysphagia Treatment Note Patient Name: Nancy Delacruz Evaluation Date: 06/15/2025 Date of : 1965 Admission Date: 06/11/2025 10:35 PM Age: 59 y.o. Room/Bed: [facility] A Subjective Patient alert and cooperative. Seen [...] session. Plan & Recommendations Plan: Continue acute GLASS BEVELLER therapy per initial plan of care and [...] Expected End: 06/15/25 Resolved: 06/13/25 Therapy Time GLASS BEVELLER Individual Minutes Time In: 1104 Time Out: 1115 Minutes: 11 REBA Stanley Hospitalist Progress Note 06/15/2025 Subjective: Admit Date: 06/11/2025 PCP: SABRINA DURAN Room#: W1-220/W8-277 A BRIEF HOSPITAL COURSE: PER PRIOR NOTES: 59 y.o. female with history of HTN, HLD, atrial fibrillation, developmental delay, stroke with Right hemiparesis who was transferred to [facility] from OS on 06/11/25 for vaginal bleeding concerning for endometrial cancer. Patient reportedly with extensive hospitalization at [facility] and initially admitted for AMS, anemia [...] but lasix discontinued due to worsening creatinine. [facility] ICU team at reviewed hospital course from OSH and cleared patient for PCU. Patient transferred to [facility] under hospitalist service. Cassandra Developer-Onc consulted/evaluated at [facility], and stated that patient would be candidate [...] concern for endometrial cancer Elevated CA125 - store team leader onc has been following - 06/18 minimally [...] Wayne Delacruz Mobile Relation: Brother Preferred language: [place] Secondary Emergency Contact: Johana Delacruz Mobile Relation: Mother Preferred language: [place] Comment: Please note that portions of the [...] Laguerre MD Division of Hospitalist Medicine Acute [facility] [1] No past medical history on file. [...] from the original note were not included. [facility] Progress Note Nancy Delacruz AGE: 59 y.o. GENDER: female : 1965 Subjective: HISTORY of PRESENT ILLNESS HPI Nancy Delacruz is a 59 y.o. female who presents for a wound care progress note. HPI: Per chart review, patient has been hospitalized for 21 days at [facility] inpatient on PCU. Pt initially presented with altered mental status and hemoglobin of 3.6 and lactic of 6.7. Pt was found to have extensive vaginal bleeding. Patient has been transferred from [facility] to [facility] for further evaluation and management of vaginal [...] respiratory distress, no cyanosis Right forearm: 1x2.5x0.2cm. [place] tissue and slough noted to wound bed. [...] to follow Recommend to follow up at [facility] after hospital [...] not included. Speech-Language Pathology SPEECH LANGUAGE PATHOLOGY [facility] Dysphagia Treatment Note Patient Name: Nancy Delacruz Evaluation Date: 06/14/2025 Date of : 1965 Admission Date: 06/11/2025 10:35 PM Age: 59 y.o. Room/Bed: [facility] A Subjective Patient alert and cooperative. [...] amended. Plan & Recommendations Plan: Continue acute GLASS BEVELLER therapy per initial plan of care and [...] Expected End: 06/15/25 Resolved: 06/13/25 Therapy Time GLASS BEVELLER Individual Minutes Time In: 1330 Time Out: 1340 Minutes: 10 MARY KATE MataGLASS BEVELLER Images from the original note were not included. PHYSICAL THERAPY [facility] Treatment Note Name/MRN: Nancy Delacruz ([id number]) Date of : 1965 Age: 59 y.o. Room/Bed: [facility]/W5-539 A Discharge Recommendation: Shelter Facility Equipment Needed: No (tbd) Prior Level [...] muscle mass loss Fluid Accumulation: Mild Extremities Teacher Resource Strength: Not Performed 06/14/25 Interval History: No [...] sided hemiparasis, developmental delay who presented to [facility] on 06/11 for vaginal bleeding. She [...] of medical conditions, she was transferred to [facility] for higher level care. In [facility] ED, initial VS: Blood pressure 131/99, HR 65, RR 17, afebrile, and on 3 L NC. Initial labs significant for hemoglobin 7.6, platelets 450, creatinine 1.32 in the setting of eGFR 46, BUN 41. Chest x-ray with coarse bilateral infiltrates likely secondary to volume overload. She was admitted for further evaluation and management. SENIOR CISCO NETWORK ENGINEER was consulted (per prior notes, TVUS 06/01 with irregular thickened endometrium with a 21 mm stripe, EMB 06/06 with atypical hyperplasia and concern for focal endometrial adenocarcinoma), plan for OR 06/18. S/p MBSS 06/13, GLASS BEVELLER rec'd soft and bite sized diet w/ [...] (kg): 50 kg Total Energy Requirements (kcals/day): 9210-2126 (25-30 kcals/kg) Weight Used for Protein Requirements: [...] Anca Logan MS, RD, LD Contact: or Aquafadas Chat (dial *[phone] from hospital phone) [1] amLODIPine, 10 mg, [...] Admit Date: 06/11/2025 PCP: SABRINA DURAN Room#: W5-539/W5-459 A BRIEF HOSPITAL COURSE: Nancy Delacruz is a 59 y.o. female with history of HTN, HLD, atrial fibrillation, developmental delay, stroke with Right hemiparesis who was transferred to [facility] from OSH on 06/11/25 for vaginal bleeding concerning for endometrial cancer. Patient reportedly with extensive hospitalization at [facility] and initially admitted for AMS, anemia [...] but lasix discontinued due to worsening creatinine. [facility] ICU team at reviewed hospital course from OSH and cleared patient for PCU. Patient transferred to [facility] under hospitalist service. Cassandra Developer-Onc consulted/evaluated at [facility], and stated that patient would be candidate [...] - Soft and Bite Sized; Mildly Thick ([place]) 24HR INTAKE/OUTPUT: Intake/Output Summary (Last 24 hours) [...] Supplemental O2 as needed. Monitor VS - Cassandra Developer Onc following. Stated discussed standard of care with patient and her family, which would be minimally invasive hysterectomy, bilateral salpingo-oophorectomy, sentinel lymphadenectomy. Noted will plan to proceed with surgery as long as patient is cleared medically. Stated that if not medically stable for major surgery, will plan on dilation and curettage and levonorgestrel intrauterine device placement. Recs noted. Discussed with Cassandra Developer Onc team on 06/13, who noted tentatively planning for surgery on Wednesday06/18/25. -Patient has remained medically stable on GMF and will likely by stable for OR with Cassandra Developer Onc on 06/18/25. - Monitor H&H and transfuse PRN - GLASS BEVELLER evaluated. Advised easy to chew. Recs noted. [...] - Pending the following - clinical course, corporate travel consultant recs, dispo planning Extended Emergency Contact Information Primary Emergency Contact: Wayne Delacruz Mobile Relation: Brother Preferred language: [place] Secondary Emergency Contact: Johana Delacruz Mobile Relation: Mother Preferred language: [place] Liban Franklin MD Division of Hospitalist Medicine [facility] [1] No past medical history [...] Admit Date: 06/11/2025 PCP: SABRINA DURAN Room#: W5-539/W5-219 A BRIEF HOSPITAL COURSE: Patient is a 59 y.o. female with history of stroke with residual R sided hemiparasis, developmental delay who presented to [facility] on 06/11 for vaginal bleeding. She [...] of medical conditions, she was transferred to [facility] for higher level care. In [facility] ED, initial VS: Blood pressure 131/99, HR 65, RR 17, afebrile, and on 3 L NC. Initial labs significant for hemoglobin 7.6, platelets 450, creatinine 1.32 in the setting of eGFR 46, BUN 41. Chest x-ray with coarse bilateral infiltrates likely secondary to volume overload. She was admitted for further evaluation and management. SENIOR CISCO NETWORK ENGINEER was consulted (per prior notes, TVUS 06/01 [...] - Soft and Bite Sized; Mildly Thick ([place]) 24HR INTAKE/OUTPUT: Intake/Output Summary (Last 24 hours) [...] showing atypical hyperplasia concerning for focal adenocarcinoma -SENIOR CISCO NETWORK ENGINEER consulted; surgery scheduled for 06/18 -Ensure medical [...] admission -Maintain fall precautions -PT/OT as needed -GLASS BEVELLER eval with dysphagia diet Developmental Delay / [...] Wayne Delacruz Mobile Relation: Brother Preferred language: [place] Secondary Emergency Contact: Johana Delacruz Mobile Relation: Mother Preferred language: [place] Puneet Terry DO Division of Hospitalist Medicine [facility] [1] No past medical history [...] and plan discussed with patient, her brother, Cassandra Developer Onc team, and TCC. Questions answered. O: [...] O2 as needed, wean as tolerated - Cassandra Developer Onc following. Stated discussed standard of care with patient and her family, which would be minimally invasive hysterectomy, bilateral salpingo-oophorectomy, sentinel lymphadenectomy. Noted will plan to proceed with surgery as long as patient is cleared medically. Stated that if not medically stable for major surgery, will plan on dilation and curettage and levonorgestrel intrauterine device placement. Recs noted. Discussed with Cassandra Developer Onc team today, who noted tentatively planning for surgery on Wednesday06/18/25. - Patient has remained medically stable on GMF and will likely by stable for OR with Cassandra Developer Onc on 06/18/25. - Monitor H&H and transfuse PRN - GLASS BEVELLER evaluated. Advised soft and bite-sized solid today. Recs noted. - Continue supportive care - Continue chronic medications as able - SW following - TCC following for dispo planning. Discussed with TCC today. Total time spent: 35 minutes Liban Franklin MD Division of Hospitalist Medicine [facility] 3:29 PM 06/13/25 Images from the original note were not included. PHYSICAL THERAPY [facility] Initial Evaluation Name/MRN: Nancy Delacruz ([id number]) Evaluation Date: 06/13/2025 Date of : 1965 Admission Date: 06/11/2025 10:35 PM Age: 59 y.o. Room/Bed: [facility] A Discharge Recommendation: Shelter Facility Equipment Needed: No (tbd) Assessment IMPRESSION: [...] Needs Assist Receives Help From: Family Active Final Application Reviewer: No Pt lives with her mother and [...] of Care supervision is transferred to a [facility] Therapy Services Physical Therapist. Goals and/or treatment plan was established in collaboration with patient/family/other representatives. [1] No past medical history on file. [2] No past surgical history on file. Images from the original note were not included. Speech-Language Pathology SPEECH LANGUAGE PATHOLOGY [facility] Modified Barium Swallow Study Patient Name: Nancy Delacruz Evaluation Date: 06/13/2025 Date of : 1965 Admission Date: 06/11/2025 10:35 PM Age: 59 y.o. Room/Bed: [facility] A IMPRESSION: The patient presents with [...] swallow). Pt would benefit from skilled acute GLASS BEVELLER services to ensure patient tolerance of the [...] Dysphagia - Minced and Moist; Mildly Thick ([place]) Diet effective now Question Answer Comment Diet type Dysphagia - Minced and Moist Fluid consistency Mildly Thick ([place]) 06/12/25 1221 Textures tested: - thin liquid, [...] got transferred from the [facility] to the [facility] for further evaluation and management of vaginal bleeding concerning for endometrial cancer. Per Sign Out: Pt has been hospitalized for 21 days at [facility] inpatient on PCU. Pt initially presented [...] to 1.75). - The ICU team at [facility] had reviewed documentation previously and cleared her for PCU. - Prior to the Tx, Pt was satting well on 2-4L. Hemoglobin was 7.4 and has been stable. No active bleeding. - The medical team at the OSH requested transfer for higher level of care. Upon arrival to the [facility], the pt was HDS, afebrile, satting well on 2L. The initial workup at the [facility] pending Upon interviewing, the pt was lying [...] Expected End: 06/15/25 Resolved: 06/13/25 Therapy Time GLASS BEVELLER Individual Minutes Time In: 0800 Time Out: 0820 Minutes: 20 MARIA DOLORES Smith [1] No past medical history on file. [2] No past surgical history on file. Images from the original note were not included. HOSPICE CARE CONSULTANT ONC Progress Note Date: 06/13/2025 Time: 6:06 [...] QTC Interval 06/12/2025 484 ms Final P [place] 06/12/2025 0 degrees Final QRS [place] 06/12/2025 -15 degrees Final T Wave [place] 06/12/2025 159 degrees Final [place] Interval 06/12/2025 0 ms Final SODIUM 06/12/2025 [...] Stage 1 - Present on admission to [facility] - Would care consulted per primary Malnutrition - Albumin 1.8 most recently - Can consider dietary consult Please page the [facility] HOSPICE CARE CONSULTANT ONC Call RES group via Secure Chat [...] not included. Speech-Language Pathology SPEECH LANGUAGE PATHOLOGY [facility] Bedside Swallow Evaluation Patient Name: Nancy Delacruz Evaluation Date: 06/12/2025 Date of : 1965 Admission Date: 06/11/2025 10:35 PM Age: 59 y.o. Room/Bed: [facility] A IMPRESSION: S/s oropharyngeal dysphagia. Intermittent [...] be evaluated. 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 Per Sign Out: Pt has been hospitalized for 21 days at [facility] inpatient on PCU. Pt initially presented [...] to 1.75). - The ICU team at [facility] had reviewed documentation previously and cleared her for PCU. - Prior to the Tx, Pt was satting well on 2-4L. Hemoglobin was 7.4 and has been stable. No active bleeding. - The medical team at the OSH requested transfer for higher level of care. Upon arrival to the [facility], the pt was HDS, afebrile, satting well on 2L. The initial workup at the [facility] pending Upon interviewing, the pt was lying [...] Start: 06/12/25 Expected End: 06/15/25 Therapy Time GLASS BEVELLER Individual Minutes Time In: 1330 Time Out: 1345 Minutes: 15 Li Esteban MA, CCC/GLASS BEVELLER [1] No past medical history on file. [2] No past surgical history on file. Hospitalist Progress Note 06/12/2025 Subjective: Admit Date: 06/11/2025 PCP: No primary care provider on file. Room#: W5-539/W5-539 A BRIEF HOSPITAL COURSE: Nancy Delacruz is a 59 y.o. female with history of HTN, HLD, atrial fibrillation, developmental delay, stroke with Right hemiparesis who was transferred to [facility] from OSH on 06/11/25 for vaginal bleeding concerning for endometrial cancer. Patient reportedly with extensive hospitalization at [facility] and initially admitted for AMS, anemia [...] but lasix discontinued due to worsening creatinine. [facility] ICU team at reviewed hospital course from OSH and cleared patient for PCU. Patient transferred to [facility] under hospitalist service. Cassandra Developer-Onc consulted at [facility]. Interval History: No overnight issues documented. Brother [...] that patient is Full Code while at [facility]. Questions answered. NPO diet with enteral medications [...] Supplemental O2 as needed. Monitor VS - Cassandra Developer Onc consulted. Stated that patient would be candidate for therapeutic dilation and curettage vs definitive treatment and surgical staging with TLH, BSO, SNLS. Advised that can consider PO progestin if bleeding does increase again. Recs noted. - Monitor H&H and transfuse PRN - GLASS BEVELLER evaluated. MBSS ordered. - Continue supportive care [...] - Pending the following - clinical course, corporate travel consultant recs, dispo planning No emergency contact information on file. Liban Franklin MD Division of Hospitalist Medicine [facility] [1] No past medical history [...] chloride 0.9% [4] documented in this encounter [facility] 06-29-2025 Note [facility] 06-28-2025 Note [facility] 06-27-2025 Telephone encounter Note Can we request patients chest CT's from the [facility]? [facility] 06-27-2025 Miscellaneous Notes Can we request patients [facility] [place]? documented in this encounter [facility] 06-26-2025 Note Received request heath Patrick to cancel bronch procedure today due to patient improvement. Endo notified. [facility] 06-26-2025 Telephone encounter Note Received request from Dr. Patrick to cancel bronch procedure today due to patient improvement. Endo notified. [facility] 06-26-2025 Miscellaneous Notes Received request from Dr. Patrick to cancel bronch procedure today due to patient improvement. Endo notified. Patient scheduled inpatient Bronch/BAL at [facility] 06/26/25 2:[address] Wagner. Pre-Bronch orders placed. Surgery scheduling . Provider will arrange outpatient follow up if needed at time of discharge. documented in this encounter [facility] 06-25-2025 Telephone encounter Note Patient scheduled inpatient Bronch/BAL at [facility] 06/26/25 2:[address] Wagner. Pre-Bronch orders placed. Surgery scheduling . Provider will arrange outpatient follow up if needed at time of discharge. [facility] 06-25-2025 Miscellaneous Notes Patient scheduled inpatient Bronch/BAL at [facility] 06/26/25 2:[address] Wagner. Pre-Bronch orders placed. Surgery scheduling . Provider will arrange outpatient follow up if needed at time of discharge. documented in this encounter [facility] 06-23-2025 Note Encounter entered in error, please see other progress note from today. [facility] 06-22-2025 Hospital Discharg e instructions Lulu [...] Wayne Delacruz Mobile Relation: Brother Preferred language: [place] Secondary Emergency Contact: Johana Delacruz Mobile Relation: Mother Preferred language: [place] Past Surgical History: No past surgical history [...] 1.6 oz) Mental Status: {MACEY Patient Mental Status:11180} IV Access: {MACEY IV Access:99573} Nursing Mobility/ADLs: Walking {LAKESHA ADL:::"Independent"} Transfer {LAKESHA ADL:::"Independent"} Bathing {LAKESHA ADL:::"Independent"} Dressing {LAKESHA ADL:::"Independent"} Toileting {LAKESHA ADL:::"Independent"} Feeding {LAKESHA ADL:::"Independent"} Lamp Wirer {LAKESHA ADL:::"Independent"} Med Delivery {yes/no:31252} Wound Care Documentation and Therapy: Wound/Incision 06/12/25 Skin Tear Forearm Right (Active) Wound Image 06/12/25 0845 Site Assessment [place] 06/22/25 0835 Evon-Wound Assessment Clean;Dry 06/22/25 0835 Drainage Description Purulent 06/17/25 0946 Odor None 06/22/25 0835 Drainage Amount None 06/22/25 0835 Treatments Site care 06/20/25 0400 Primary Dressing Open to air 06/22/25 0835 Dressing Status Clean, dry & intact 06/20/25 1736 Number of days: 10 Elimination: Continence: Bowel: {yes/no:38051} Bladder: {yes/no:18477} Urinary Catheter: {MACEY Urinary Catheter:12450} Colostomy/Ileostomy/Ileal Conduit: {YES / NO:} Date of Last BM: Intake/Output Summary (Last 24 hours) at 06/22/2025 1636 Last data filed at 06/22/2025 1133 Gross per 24 hour Intake 485 ml Output 2050 ml Net -1565 ml I/O last 3 completed shifts: In: 365 (4.2 mL/kg) [P.O.:365] Out: 1800 (20.6 mL/kg) [Urine:1800 (0.6 mL/kg/hr)] Weight: 87.6 kg Safety Concerns: {MACEY Safety Concerns:37968} Impairments/Disabilities: {MACEY Impairments/Disabilities:78288} Nutrition Therapy: Current Nutrition Therapy: {MACEY Diet List:60544} Routes of Feeding: {routes of feedin} Liquids: {liquid consistency:64254} Daily Fluid Restriction: {daily fluid restriction:36372} Last Modified Barium Swallow with Video (Video Swallowing Test): {done not done:10710} Treatments at the Time of Hospital Discharge: Respiratory Treatments: Oxygen Therapy: {Therapy; copd oxygen:42258} Ventilator: {MACEY Ventilator:21359} Rehab Therapies: {GEN THERAPY DISCIPLINE SCAL:1489647} Weight Bearing Status/Restrictions: {POD WEIGHT BEARIN} Other Medical Equipment (for information only, NOT a DME order): {Assistive Devices DME:43947} Other Treatments: Patient's personal belongings (please select all that are sent with patient): {MACEY Patient Belongings:22148} RN SIGNATURE: {E-signature:32123} CASE MANAGEMENT/SOCIAL WORK SECTION Inpatient Status Date: Discharging to Facility/ Agency [facility] Dialysis Facility (if applicable) Name: Address: Dialysis Schedule: Phone: Fax: Fast Food Assistant Restaurant Manager/Speech Correction Assistant signature: {E-signature:42503} PHYSICIAN SECTION Name: Nancy Delacruz Prognosis: {Rehab Prognosis:24325} Condition at Discharge: {Patient Condition:95497} Rehab Potential (if transferring to Rehab): {Rehab Prognosis:27252} Recommended Labs or Other Treatments After Discharge: The individual is being admitted to a nursing facility directly from an [facility] or a unit of a [facility] that is not operated by or licensed by [facility] under section 5119.14 or 5160-3-15.1 5 The individual requires the level of services provided by a nursing facility for the condition for which he or she was treated in the hospital and, Physician Certification: I certify the above information and transfer of Nancy Delacruz is necessary for the continuing treatment of the diagnosis listed and that she requires {MACEY Level of Care:11166} for {greater less than:83377} 30 days. Update Admission H&P: {MACEY Changes in H&P:15510} PHYSICIAN SIGNATURE: {E-signature:50401} documented in this encounter [facility] 06-22-2025 Consult note Associated Order (s): INPATIENT CONSULT TO CRITICAL CARE - MEDICAL TEAM ICU consult Name: Nancy Delacruz : 1965(59 y.o.) Date: 06/22/25 Team: MICU Attending: Marcus Subjective: Hospital Summary: Initially admitted to ICU as a transfer from [facility] after hemorrhagic shock secondary to vaginal [...] L/min Invasive Lines / Tubes / Drains: [employer] Professional Peripheral IV 06/17/25 Right Expires 07/17/2025 [...] ABGs: Recent Labs 06/22/25 0856 PHART 7.482* [id number] 32.5* PO2ART 79.2* YWP9UTC 23.8 [id number] [place] High Flow Nasal Cannula (6-15 LPM) [...] PM EDT I have personally performed a yard-jo-vcrs diagnostic evaluation on this patient on date of service 06/22/2025. History, labs, imaging studies, and electronic medical record have been reviewed by me. This note documented by the [x]smokehouse worker []EVE reflects my history, exam, and medical [...] procedures. Associated Order(s): IP CONSULT TO CARDIOLOGY [facility] [place] [facility] Cardiology /Electrophysiology Consult Note Reason for Consult/Chief Complaint: HF/A fib Referring provider: Dr. Fleming Established utilization review nurse: none History of Present Illness: Nancy Delacruz [...] Per family request, she was transferred to [facility] for further care. She was evaluated by store team leader/onc here and was offered hysterectomy, bilateral salpingo-oophorectomy, [...] of Cardiovascular Disease, Division of Heart Failure [facility] [place] 1:59 PM 06/18/25 Images from the original note were not included. Internal Medicine: MICU Initial Consult Name: Nancy Delacruz : 1965(59 y.o.) Date: 06/17/25 Attending: Dr. Mayra Ladd Subjective: Chief Complaint: Shortness of breath HPI: 59 F PMH developmental delay, A-fib, HTN/HLD, stroke with residual right-sided deficits. She originally presented here as a transfer from an outside hospital. At the [facility] [place], she presented with vaginal bleeding that was [...] Per family request, she was transferred to [facility] for further care. She was evaluated by [...] Normal [] Scar/Lesion/Mass Inspection of teeth/lips/gums Dentition: [][place] Teeth []Dentures Lips/Gums: []Intact []Lesion Present Mucosa: [][place] []Moist []Dry Neck: External Appearance Overall Appearance: [...] ABGs: Recent Labs 06/17/25 1740 PHART 7.512* [id number] 31.5* PO2ART 73.7* ZTP8VYG 24.7 [id number] Non-Invasive Ventilator Lactic Acid: Recent Labs 06/17/25 [...] who is second POA) If intubated, contact HOSPICE CARE CONSULTANT service for deferral of gynecologic procedure Given [...] AM EDT I have personally performed a erav-tk-xsef diagnostic evaluation on this patient on date of service 06/17/2025. History, labs, imaging studies, and electronic medical record have been reviewed by me. This note documented by the [x]smokehouse worker []EVE reflects my history, exam, and medical [...] biopsy positive for endometrioid adenocarcinoma. Transferred to [facility] for possible surgery. Today developed worsening dyspnea [...] Encounter Procedures Inpatient consult to Obstetrics / Gynecology--[facility] OB-HOSPICE CARE CONSULTANT; Vaginal bleeding Standing Status: Standing Number of Occurrences: 1 Consulting Group: [facility] OB-HOSPICE CARE CONSULTANT [309] Reason for Consult?: Vaginal bleeding Level [...] tear to R forearm/elbow Inpatient consult to Pulmonology--[facility] Pulmonology; respiratory failure Standing Status: Standing Number of Occurrences: 1 Consulting Group: [facility] Pulmonology [250] Reason for Consult?: respiratory failure Level of Consultation: Consultation and Management Did you contact the corporate travel consultant?: No When to contact consulting provider: Today Inpatient consult to Pulmonology Consult performed by: Norman Fleming MD Consult ordered by: Sedirck Chavez DO Assessment and Plan/Recommendations: Acute hypoxemic respiratory failure Volume overload secondary to blood transfusions Likely high output HF previously in the setting of severe anemia Atrial fibrillation with RVR Atypical Hyperplasia with concern for endometrioid adenocarcinoma Acute blood loss anemia - stabilized RAMEZ - improved Marked tachypnea and increased work [...] was transferred from an outside hospital to [facility] due to vaginal bleeding, anemia, and concern for endometrial cancer. Patient reportedly with extensive hospitalization at [facility] and initially admitted for AMS, anemia [...] a 21mm stripe. She was evaluated by Cassandra Developer-Onc here and was offered hysterectomy, bilateral salpingo-oophorectomy, [...] 25.6* ABGs: No results for input(s): "PHART", "LFQ2CAR", "PO2ART", "CPI2LMD", "SO2ART", "Y2AHCEYX" in the last 72 hours. Lactic Acid: [...] from the original note were not included. [facility]ound [facility] CONSULT Note Nancy Delacruz AGE: 59 y.o. GENDER: female : 1965 Subjective: HISTORY of PRESENT ILLNESS HPI Nancy Delacruz is a 59 y.o. female who presents for a wound consult. HPI: Per chart review, patient has been hospitalized for 21 days at [facility] inpatient on PCU. Pt initially presented with altered mental status and hemoglobin of 3.6 and lactic of 6.7. Pt was found to have extensive vaginal bleeding. Patient has been transferred from [facility] to [facility] for further evaluation and management of vaginal [...] respiratory distress, no cyanosis Right forearm: 1x2.5x0.2cm. [place] tissue and slough noted to wound bed. [...] to follow Recommend to follow up at [facility] Outpatient wound care center after hospital [...] Name: Nancy Delacruz Patient : 1965 Room[facility]Bed: [facility] A Admission Date/Time: 06/11/2025 10:35 PM Primary Care Physician: No primary care provider on file. HPI: Nancy Delacruz is a 59 y.o. female G0 w/PMH of developmental delay and stroke resulting in right hemiparesis presents as transfer to [facility] from [facility] following a 21 day hospitalization. In [...] well on 4L NC. Upon arrival to [facility], Hgb is 7.6, WBC 7.1 and platelets [...] takes and denies any surgical history. From HOSPICE CARE CONSULTANT perspective, she had an EMB on 06/06 [...] failure, acute anemia and vaginal bleeding with HOSPICE CARE CONSULTANT Oncology consulted for vaginal bleeding Vaginal Bleeding [...] BSO, SNLS - Mother is power of erisa attorney per brother, will work on getting formal [...] Stage 1 - Present on admission to [facility] - Would care consulted per primary Plan discussed with Dr. Rodriguez, who is agreeable. Please page the [facility] HOSPICE CARE CONSULTANT ONC Call RES group via Secure Chat [...] for the patient. documented in this encounter [facility] 06-18-2025 Emergency department Note YARELIS Rodriguez documented in this encounter [facility] 06-17-2025 Note [facility] 06-17-2025 Procedure note Images from the original [...] documented as signed by this procedure note. Hat Forming Machine Feeder(s): Not applicable documented in this encounter [facility] 06-13-2025 Note Surgeon: Jennifer Case# [id number] Procedure: TLH psb BSO. SLN Sx Date: Monday 06/18 Time: 1300 Location: [facility] outpt CPT: 25844, 69455 ICD-10: C54.1 Special Equipment: n/a PAT: n/a Submitted auth thru insurance portal, awaiting determination. [facility] 06-11-2025 Note [facility] 06-11-2025 History and physical note Attending History and Physical Admit Date: 06/11/2025 PCP: No primary care provider on file. CHIEF COMPLAINT: Vaginal Bleeding History Obtained From: The patient & EHR HISTORY OF PRESENT ILLNESS: Nancy is a 59 y.o. female with with PMH below who got transferred from the OSH to the [facility] for further evaluation and management of vaginal bleeding concerning for endometrial cancer. Per Sign Out: Pt has been hospitalized for 21 days at [facility] inpatient on PCU. Pt initially presented [...] to 1.75). - The ICU team at [facility] had reviewed documentation previously and cleared her for PCU. - Prior to the Tx, Pt was satting well on 2-4L. Hemoglobin was 7.4 and has been stable. No active bleeding. - The medical team at the OSH requested transfer for higher level of care. Upon arrival to the [facility], the pt was HDS, afebrile, satting well on 2L. The initial workup at the [facility] pending Upon interviewing, the pt was lying [...] MD Division of Hospitalist Medicine Acute care [facility] [1] No past medical history on file. [2] No past surgical history on file. [3] No family history on file. [4] Current Facility-Administered Medications: acetaminophen (Tylenol) tablet 650 mg, 650 mg, Oral, q6h PRN OR acetaminophen (Tylenol) suppository 650 mg, 650 mg, Rectal, q6h PRN, Navi Roberts MD amLODIPine (Norvasc) tablet 10 mg, 10 mg, Oral, Daily, Navi Roberts MD atorvastatin (Lipitor) tablet 20 mg, 20 mg, Oral, Nightly, Navi Roberts MD, 20 mg at 06/12/25 011 carvedilol [...] Not on File documented in this encounter [facility] 06-11-2025 Discharge summary Note Date/Time June 11, 2025 1:42pm [facility] Medical Records Department [address] [place] [address] Discharge Summary 06/11/25 1335 MR#: [id number] Acct: [id number] Name: NANCY DELACRUZ Rep #:[id number] : 1965 59 From: Ziggy Gautam PCP: Dr. Sabrina Duran DO Status:ADM IN Location: [facility] [id number] Providers Date of Admission: 05/21/25 Date of Discharge: 06/11/25 Primary Care Physician: Dr. Sabrina Duran, DO Consultations 05/21/25 12:35 Consult: Gastroenterology Routine Consulting Provider: [facility] Reason for Consult: anemia EMERGENT Consult: No MD Notified: Yes Date Notified: 05/21/25 Time Notified: 11:42 Method of Notification: Text 05/21/25 13:20 Consult: Horticultural Agent / Pulmonary Medicine Routine Consulting Provider: Intensivists/Pulmonary Med Reason for Consult: shock, anemia, hypoxia EMERGENT Consult: No MD Notified: Yes Date Notified: 05/21/25 Time Notified: 13:25 Method of Notification: Verbal 06/01/25 13:17 Consult: SENIOR CISCO NETWORK ENGINEER Routine Consulting Provider: Eloisa More Reason for [...] naps breathing on baseline. Awaiting transfer to [facility]. 06/11: Hemodynamically, she is in a better condition. I talked to the patient's brother on the phone, gave clinical update. She is still awaiting transfer to [facility]. Her brother was concerned of severe anemia and wants to be transferred to tertiary care for evaluation of endometrial cancer as the endometrial biopsy reported atypical hyperplasia with endometrioid adenocarcinoma. I talked to the hospitalist colleague in [facility] and gave the clinical update. Patient is still severely anemic hemoglobin 7.2 therefore requires definitive treatment otherwise high chances ofreadmission. She will be transferred to [facility] sometime in the evening today. #Acute on chronic HFpEF * EF is normal at 60%, and mild concentric LVH and apical hypertrophic cardiomyopathy present. * received IV lasix 40mg x 1. * pro BNP: 83498 * on 3L oxygen today. Titrate oxygen [...] is proven patient will be referred to HOSPICE CARE CONSULTANT oncologist in [place] on outpatient basis. * Ca 125 elevated at eight 7.4 although CEA antigen is normal at 1.3. Will need follow-up on outpatient basis with gynecology 06/10: As mentioned above endometrial pathology came back as atypical hyperplasiaand suspicion endometrioid adenocarcinoma. Dr. Ned Sarkar recommended follow-up with tertiary care priming mixture carrier oncologist. H&H 7.3/25.6%. Platelet count 400 41K. [...] DVT: SCDs Patient is being transferred to [facility]. Transfer formalities including paper signed Total [...] (Auto) 68.7, Lymph % (Auto) 18.7 L, Crowley % (Auto) 8.6, Eos % (Auto) 2.5, [...] Care Hospital Charges/Coding Visit Charges Inpatient E&M: 35466 Disch Hosp >30min 06/11/25 1342 <Electronically signed by Ziggy Shelton MD> Cosigner Signature (if applicable): CC: Dr. Sabrina Duran DO; Dr. Ziggy Shelton MD~ Signed [facility] Work Phone: 1(981) 987-742609-15-2025 Hospital Discharge instructionsAdditional Instructions Date of Discharge: 06/11/25[facility] Work Phone: 1(458) 567-424809-15-2025 Progress note Author Ziggy Shelton [facility] Note Date/Time June 11, 2025 11:58am [facility] Medical Records Department [address] [place] [address] Progress Note - Hospitalist 06/11/25 1148 MR#: [id number] Acct: [id number] Name: NANCY DELACRUZ Rep #:[id number] : 1965 59 From: Ziggy Gautam PCP: Dr. Sabrina Duran DO Status:ADM IN Location: [place] [address] Reason for Visit Chief Complaint: altered level [...] (Auto) 68.7, Lymph % (Auto) 18.7 L, Crow[place] % (Auto) 8.6, Eos % (Auto) 2.5, [...] removed bowel yesterday. Waiting for bed at [facility] Physical exam General: Alert, Oriented x3, Cooperative. [...] naps breathing on baseline. Awaiting transfer to [facility]. 06/11: Hemodynamically, she is in a better condition. I talked to the patient's brother on the phone, gave clinical update. She is still awaiting transfer to [facility] but I do not think she needs to go there may be follow-up as an outpatient for subspecialist care. Discussed with the nursing staff for discharge planning #Acute on chronic HFpEF * EF is normal at 60%, and mild concentric LVH and apical hypertrophic cardiomyopathy present. * received IV lasix 40mg x 1. * pro BNP: 27736 * on 3L oxygen today. Titrate oxygen [...] is proven patient will be referred to HOSPICE CARE CONSULTANT oncologist in [place] on outpatient basis. * Ca 125 elevated at eight 7.4 although CEA antigen is normal at 1.3. Will need follow-up on outpatient basis with gynecology 06/10: As mentioned above endometrial pathology came back as atypical hyperplasiaand suspicion endometrioid adenocarcinoma. Dr. Ned Sarkar recommended follow-up with tertiary care priming mixture carrier oncologist. H&H 7.3/25.6%. Platelet count 400 41K. [...] DVT: SCDs Charges/Coding Visit Charges Inpatient E&M: 72831 Subs Hosp L2 06/11/25 1158 <Electronically signed by Ziggy Shelton MD> Cosigner Signature (if applicable): CC: ~ Signed [facility] Work Phone: 1(626) 614-640909-15-2025 [facility]09-14-2025 History of Present illness Narrative* Gerry Malik MD - 06/10/2025 9:22 PM EDT This encounter was created by mistake documented in this [facility]09-14-2025 Progress note Author Ziggy Shelton [facility] Note Date/Time June 10, 2025 9:26am [facility] Medical Records Department [address] [place] [address] Progress Note - Hospitalist 06/10/25 0742 MR#: [id number] Acct: [id number] Name: NANCY DELACRUZ Rep #:[id number] : 1965 59 From: Ziggy Gautam PCP: Dr. Sabrina Duran, DO Status:ADM IN Location: [place] [address] Reason for Visit Chief Complaint: altered level [...] % (Auto) 67.4, Lymph % (Auto) 20.9, Crowley % (Auto) 8.1, Eos % (Auto) 2.1, [...] removed bowel yesterday. Waiting for bed at [facility] Physical exam General: Alert, Oriented x3, Cooperative. [...] naps breathing on baseline. Awaiting transfer to [facility]. #Acute on chronic HFpEF * EF is normal at 60%, and mild concentric LVH and apical hypertrophic cardiomyopathy present. * received IV lasix 40mg x 1. * pro BNP: 55063 * on 3L oxygen today. Titrate oxygen [...] is proven patient will be referred to HOSPICE CARE CONSULTANT oncologist in [place] on outpatient basis. * Ca 125 elevated at eight 7.4 although CEA antigen is normal at 1.3. Will need follow-up on outpatient basis with gynecology 06/10: As mentioned above endometrial pathology came back as atypical hyperplasiaand suspicion endometrioid adenocarcinoma. Dr. Ned Sarkar recommended follow-up with tertiary care priming mixture carrier oncologist. H&H 7.3/25.6%. Platelet count 400 41K. [...] DVT: SCDs Charges/Coding Visit Charges Inpatient E&M: 18511 Subs Hosp L2 09/14/25 0926 <Electronically signed by Ziggy Shelton MD> Cosigner Signature (if applicable): CC: ~ Signed [facility] Work Phone: 1(220) 912-401509-13-2025 Progress note Author Hiren Sanders [facility] Note Date/Time June 09, 2025 11:31am [facility] Medical Records Department [address] [place] [address] Progress Note - Hospitalist 06/09/251127 MR#: [id number] Acct: [id number] Name: NANCY DELACRUZ Rep #:[id number] : 1965 59 From: Hiren suarez MD PCP: Dr. Sabrina Duran, DO Status:ADM IN Location: [place] [address] Subjective Subjective Oxygen requirements have stabilized at [...] % (Auto) 68.0, Lymph % (Auto) 20.0, Crowley % (Auto) 8.9, Eos % (Auto) 1.8, [...] 6 L nasal cannula. Awaiting transfer to [facility] 06/07/2025: Awaiting transfer. Creatinine has stabilized, we [...] lasix 40mg x 1. * pro BNP: 85709 * on 3L oxygen today. Titrate oxygen [...] is proven patient will be referred to HOSPICE CARE CONSULTANT oncologist in [place] on outpatient basis. * Ca 125 elevated [...] DVT: SCDs Charges/Coding Visit Charges Inpatient E&M: 42362 Subs Hosp L2 06/09/25 1131 <Electronically signed by Hiren Sanders MD> Cosigner Signature (if applicable): CC: ~ Signed [facility] Work Phone: 1(345) 362-896409-12-2025 Progress note Author Hiren Sanders [facility] Note Date/Time June 08, 2025 10:41am [facility] Medical Records Department [address] [place] [address] Progress Note - Hospitalist 06/08/25 1040 MR#: [id number] Acct: [id number] Name: NANCY DELACRUZ Rep #:[id number] : 1965 59 From: Hiren suarez MD PCP: Dr. Sabrina Duran, DO Status:ADM IN Location: [place] [address] Subjective Subjective No issues overnight, maintaining her [...] 72.0 H, Lymph % (Auto) 15.3 L, Crowley % (Auto) 9.5, Eos % (Auto) 2.1, [...] 6 L nasal cannula. Awaiting transfer to [facility] 06/07/2025: Awaiting transfer. Creatinine has stabilized, we [...] lasix 40mg x 1. * pro BNP: 85316 * on 3L oxygen today. Titrate oxygen [...] is proven patient will be referred to HOSPICE CARE CONSULTANT oncologist in [place] on outpatient basis. * Ca 125 elevated [...] DVT: SCDs Charges/Coding Visit Charges Inpatient E&M: 57935 Subs Hosp L1 06/08/25 1041 <Electronically signed by Hiren Sanders MD> Cosigner Signature (if applicable): CC: ~ Signed [facility] Work Phone: 1(708) 544-555309-11-2025 Progress note Author Eloisa More [facility] Note Date/Time June 07, 2025 5:25pm [facility] Medical Records Department [address] [place] [address] Progress Note - OBGYN 06/06/25 1704 MR#: [id number] Acct: [id number] Name: NANCY DELACRUZ Rep #:[id number] : 1965 59 From: Eloisa woods MD PCP: Dr. Sabrina Duran, DO Status:ADM IN Location: [place] [address]- Subjective Subjective Patient states minimal bleeding, pain controlled. Planning transfer to [facility]. Objective Data Objective Data Vital Signs: Vital [...] 74.1 H, Lymph % (Auto) 13.3 L, Crowley % (Auto) 9.2, Eos % (Auto) 2.3, [...] Endometrial thickening. Clinical correlation recommended. Reading Location: [facility]-1 Chest X-Ray 06/02/25 04:00 IMPRESSION: Right internal jugular central catheter is in good position with its tip at the atriocaval junction. Minimal decrease in multifocal pulmonary congestion/infiltrates. Unchanged minimal left pleural effusion. Enlarged cardiac silhouette. Reading Location: [address] Constitutional Constitutional: Reports systems reviewed and [...] gynecology oncology consultation once she arrives at [facility]. Records sent to Dr. Wilman Iqbal group. (4) Atypical glandular cells of undetermined significance (BEST) on cervical Papsmear: COMMENT: Likely due to endometrial abnormalities PLAN: Plan Discussed with patient, mother, and brother. Endometrial hyperplasia with complex atypia and areas suspicious for adenocarcinoma seen on biopsy. Recommend gynecology oncology consultation once she is transported to [facility]. Discussed that she can follow-up with us as needed as an outpatient after she receives treatment from the priming mixture carrier oncologist. Records are faxed to Dr. Milton brito in [facility]. Charges/Coding Visit Charges Inpatient E&M: 29875 Subs Hosp L3 06/07/251724 <Electronically signed by Eloisa More MD> Cosigner Signature (if applicable): CC: ~ Signed [facility] Work Phone: [phone]) 735-132909-11-2025 Progress note Author Hiren Sanders [facility] Note Date/Time June 07, 2025 10:21am [facility] Medical Records Department [address] [place] [address] Progress Note - Hospitalist 06/07/25 1016 MR#: [id number] Acct: [id number] Name: NANCY DELACRUZ Rep #:[id number] : 1965 59 From: Hiren suarez MD PCP: Dr. Sabrina Duran, DO Status:ADM IN Location: [place] [address] Subjective Subjective No major issues overnight, oxygen requirements are still variable this morning she was on 6 L nasal cannula. Hemoglobin is dropped again to 7.1. 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 Awaiting transfer to [facility] Objective Data Objective Data Vital Signs: Vital [...] 70.5 H, Lymph % (Auto) 16.6 L, Crowley % (Auto) 8.8, Eos % (Auto) 3.1, [...] 6 L nasal cannula. Awaiting transfer to [facility] 06/07/2025: Awaiting transfer. Creatinine has stabilized, we will trial her on daily IV dosing of Lasix to help improve her oxygen requirements. Will continueto encourage BiPAP use at night and with sleep #Acute on chronic HFpEF * EF is normal at 60%, and mild concentric LVH and apical hypertrophic cardiomyopathy present. * received IV lasix 40mg x 1. * pro BNP: 53928 * on 3L oxygen today. Titrate oxygen [...] is proven patient will be referred to HOSPICE CARE CONSULTANT oncologist in [place] on outpatient basis. * Ca 125 elevated [...] DVT: SCDs Charges/Coding Visit Charges Inpatient E&M: 62313 Subs Hosp L2 06/07/25 1021 <Electronically signed by Hiren Sanders MD> Cosigner Signature (if applicable): CC: ~ Signed [facility] Work Phone: 1(547) 571-423909-10-2025 Progress note Author Hiren Sanders [facility] Note Date/Time June 06, 2025 10:00am [facility] Medical Records Department [address] [facility] [place] [address] Progress Note - Hospitalist 06/06/25925 MR#: [id number] Acct: [id number] Name: NANCY DELACRUZ Rep #:[id number] : 1965 59 From: Hiren suarez MD PCP: Dr. Sabrina Duran, DO Status:ADM IN Location: [place] [address] Subjective Subjective Respiratory status is stable. Hemoglobin [...] hr 06/05/25 04:57: [place] [address] H, Procalcitonin 0.29 H 06/06/25 05:18: WBC 8.1, RBC 3.40 L, Hgb 7.6 L, Hct 26.8 L, MCV 78.8 L, MCH 22.4L, MCHC 28.4 L, RDW Std Deviation 71.7 H, RDW Coeff of Federico 27.6 H, Plt Count 453H, MPV 10.0, Immature Gran % (Auto) 0.400, Neut % (Auto) 74.1 H, Lymph % (Auto) 13.3 L, Crowley % (Auto) 9.2, Eos % (Auto) 2.3, [...] be considered. Alternatively, consider cryptogenic organizing pneumonia, INSPECTOR PRECISION. Reading Location: [facility] Physical Exam Narrative General: Alert, not [...] 6 L nasal cannula. Awaiting transfer to [facility] #Acute on chronic HFpEF * EF is normal at 60%, and mild concentric LVH and apical hypertrophic cardiomyopathy present. * received IV lasix 40mg x 1. * pro BNP: 59559 * on 3L oxygen today. Titrate oxygen [...] is proven patient will be referred to HOSPICE CARE CONSULTANT oncologist in [place] on outpatient basis. * Ca 125 elevated [...] DVT: SCDs Charges/Coding Visit Charges Inpatient E&M: 79291 Subs Hosp L2 06/06/25 1000 <Electronically signed by Hiren Sanders MD> Cosigner Signature (if applicable): CC: ~ Signed [facility] Work Phone: 1(289) 691-129809-10-2025 Progress note Author Julian Monsivais [facility] Note Date/Time June 06, 2025 9:33am [facility] Medical Records Department [address] [place] [address] Progress Note - Horticultural Agent 06/06/25 0917 MR#: [id number] Acct: [id number] Name: NANCY DELACRUZ Rep #:[id number] : 1965 59 From: Julian Monsivais DO PCP: Dr. Sabrina Duran, DO Status:ADM IN Location: [place] [address] Assessment & Plan Assessment/Plan (1) Acute hypoxemic [...] speech therapy. This note was generated with [employer] dictation software. It may contain incorrectwords, spelling, [...] hr 06/05/25 04:57: [place] [address] H, Procalcitonin 0.29 H 06/06/25 05:18: WBC 8.1, RBC 3.40 L, Hgb 7.6 L, Hct 26.8 L, MCV 78.8 L, MCH 22.4L, MCHC 28.4 L, RDW Std Deviation 71.7 H, RDW Coeff of Federico 27.6 H, Plt Count 453H, MPV 10.0, Immature Gran % (Auto) 0.400, Neut % (Auto) 74.1 H, Lymph % (Auto) 13.3 L, Crowley % (Auto) 9.2, Eos % (Auto) 2.3, [...] be considered. Alternatively, consider cryptogenic organizing pneumonia, INSPECTOR PRECISION. Reading Location: [facility] Physical Exam Const alert and no [...] flat affect Charges/Coding Visit Charges Inpatient E&M: 86114 Subs Hosp L2 06/06/25 0933 <Electronically signed by Julian Monsivais DO> Cosigner Signature (if applicable): CC: ~ Signed [facility] Work Phone: 1(237) 297-440909-09-2025 Progress note Author Hiren Sanders [facility] Note Date/Time June 05, 2025 5:03pm [facility] Medical Records Department [address] [place] [address] Progress Note - Hospitalist 06/05/25 1701 MR#: [id number] Acct: [id number] Name: NANCY DELACRUZ Rep #:[id number] : 1965 59 From: Hiren suarez MD PCP: Dr. Sabrina Duran DO Status:ADM IN Location: [place] [address] Subjective Subjective Will continue to encourage BiPAP [...] % (Auto) 67.0, Lymph % (Auto) 19.0, Crowley % (Auto) 9.9, Eos % (Auto) 3.2, [...] 4.3, Magnesium 2.1, [place] [address] H, Procalcitonin 0.29 H Micro: Microbiology 05/29/25 [...] be considered. Alternatively, consider cryptogenic organizing pneumonia, INSPECTOR PRECISION. Reading Location: [facility] Physical Exam Narrative General: Alert, not [...] lasix 40mg x 1. * pro BNP: 23129 * on 3L oxygen today. Titrate oxygen [...] is proven patient will be referred to HOSPICE CARE CONSULTANT oncologist in [place] on outpatient basis. * Ca 125 elevated [...] * Barium swallow showed moderate-severe oropharyngeal dysphagia #RAMZE on CKD: Resolved. Cr is 1.30 today, [...] DVT: SCDs Charges/Coding Visit Charges Inpatient E&M: 94551 Subs Hosp L2 06/05/25 170 <Electronically signed by Hiren Sanders MD> Cosigner Signature (if applicable): CC: ~ Signed [facility] Work Phone: [phone]) [phone] Progress note Author Hiren Sanders [facility] Note Date/Time June 05, 2025 5:01pm [facility] Medical Records Department [address] [facility] [place] [address] Progress Note - Hospitalist 06/04/25 1808 MR#: [id number] Acct: [id number] Name: NANCY DELACRUZ Rep #:[id number] : 1965 59 From: Hiren suarez MD PCP: Dr. Sabrina Duran, DO Status:ADM IN Location: [place] [id number]- 1 Subjective Subjective Overnight required BiPAP and [...] (Auto) 77.8 H, Lymph % (Auto) 11.4 L,Crowley % (Auto) 7.8, Eos % (Auto) 1.7, [...] lasix 40mg x 1. * pro BNP: 05885 * on 3L oxygen today. Titrate oxygen [...] is proven patient will be referred to HOSPICE CARE CONSULTANT oncologist in [place] on outpatient basis. * Ca 125 elevated [...] Multi Select Codes Visit Charges Visit Charges: 10636 Subs Hosp L2 Hospitalists' Procedures Procedures: 06245 Advncd Care Plan 30 Min 06/05/25 1701 <Electronically signed by Hiren Sanders MD> Cosigner Signature (if applicable): 06/05/25 0519 <Electronically signed by Eloisa More MD> CC: ~ Signed [facility] Work Phone: [phone]) 726-138109-09-2025 Progress note Author Julian Monsivais [facility] Note Date/Time June 05, 2025 12:29pm [facility] Medical Records Department [address] [place] [address] Progress Note - Horticultural Agent 06/05/25 1034 MR#: [id number] Acct: [id number] Name: NANCY DELACRUZ Rep #:[id number] : 1965 59 From: Julian Monsivais DO PCP: Dr. Sabrina Duran, DO Status:ADM IN Location: [place] [address] Assessment & Plan Assessment/Plan (1) Acute hypoxemic [...] speech therapy. This note was generated with Spot[employer] dictation software. It may contain incorrectwords, spelling, [...] % (Auto) 67.0, Lymph % (Auto) 19.0, Crowley % (Auto) 9.9, Eos % (Auto) 3.2, [...] pulmonary congestion/infiltrates. Enlarged cardiac silhouette. Reading Location: [place] [address] Physical Exam Const alert and no apparent [...] flat affect Charges/Coding Visit Charges Inpatient E&M: 61349 Subs Hosp L3 06/05/25 1229 <Electronically signed by Julian Monsivais DO> Cosigner Signature (if applicable): CC: ~ Signed [facility] Work Phone: [phone]) 604-186209-09-2025 Radiology Diagnostic study [facility]09-09-2025 Progress note Author Eloisa More [facility] Note Date/Time June 05, 2025 9:07am [facility] Medical Records Department [address] [place] [address] Progress Note - OBGYN 06/05/25 0907 MR#: [id number] Acct: [id number] Name: NANCY DELACRUZ Rep #:[id number] : 1965 59 From: Eloisa woods MD PCP: Dr. Sabrina Duran, Status:ADM IN Location: [place] [address] Subjective Subjective Patient stable with minimal vaginal [...] % (Auto) 67.0, Lymph % (Auto) 19.0, Crowley % (Auto) 9.9, Eos % (Auto) 3.2, [...] Endometrial thickening. Clinical correlation recommended. Reading Location: [facility]1 Chest X-Ray 06/02/25 04:00 IMPRESSION: Right internal jugular central catheter is in good position with its tip at the atriocaval junction. Minimal decrease in multifocal pulmonary congestion/infiltrates. Unchanged minimal left pleural effusion. Enlarged cardiac silhouette. Reading Location: [address] Constitutional Constitutional: Reports systems reviewed and [...] for intervention. Charges/Coding Visit Charges Inpatient E&M: 22088 Subs Hosp L3 06/05/25906 <Electronically signed by Eloisa More MD> Cosigner Signature (if applicable): CC: ~ Signed [facility] Work Phone: [phone]) 241-561509-09-2025 Progress note Author Eloisa More [facility] Note Date/Time June 05, 2025 5:59am [facility] Medical Records Department [address] [place] [address] Progress Note - OBGYN 06/02/25926 MR#: [id number] Acct: [id number] Name: NANCY DELACRUZ Rep #:[id number] : 1965 59 From: Eloisa woods MD PCP: Dr. Sabrina Duran, DO Status:ADM IN Location: [address] Subjective Subjective Patient stable with [...] 77.5 H, Lymph % (Auto) 13.3 L, Crowley % (Auto) 6.6, Eos % (Auto) 1.5, [...] Endometrial thickening. Clinical correlation recommended. Reading Location: [facility] Chest X-Ray 06/02/25 04:00 IMPRESSION: Right internal jugular central catheter is in good position with its tip at the atriocaval junction. Minimal decrease in multifocal pulmonary congestion/infiltrates. Unchanged minimal left pleural effusion. Enlarged cardiac silhouette. Reading Location: [address] Constitutional Constitutional: Reports systems reviewed and [...] for intervention. Charges/Coding Visit Charges Inpatient E&M: 96536 Subs Hosp L3 06/05/25 0859 <Electronically signed by Eloisa More MD> Cosigner Signature (if applicable): CC: ~ Signed [facility] Work Phone: 1(360) 228-713309-09-2025 Progress note Author Eloisa More [facility] Note Date/Time June 05, 2025 3:50am [facility] Medical Records Department [address] [place] [address] Progress Note - OBGYN 06/04/25 1333 MR#: [id number] Acct: [id number] Name: NANCY DELACRUZ Rep #:[id number] : 1965 59 From: Eloisa woods MD PCP: Dr. Sabrina Duran, DO Status:ADM IN Location: [place] [address] Subjective Subjective Patient has worsening respiratory symptoms [...] (Auto) 77.8 H, Lymph % (Auto) 11.4 L,Crowley % (Auto) 7.8, Eos % (Auto) 1.7, [...] Endometrial thickening. Clinical correlation recommended. Reading Location: [facility]-1 Chest X-Ray 06/02/25 04:00 IMPRESSION: Right internal jugular central catheter is in good position with its tip at the atriocaval junction. Minimal decrease in multifocal pulmonary congestion/infiltrates. Unchanged minimal left pleural effusion. Enlarged cardiac silhouette. Reading Location: [address] Constitutional Constitutional: Reports systems reviewed and [...] would refer to Dr Iqbal group at [facility]. Charges/Coding Visit Charges Inpatient E&M: 79807 Subs Hosp L3 06/05/25 0350 <Electronically signed by Eloisa More MD> Cosigner Signature (if applicable): CC: ~ Signed [facility] Work Phone: [phone]) [phone] Progress note Author [facility] Note Date/Time June 04, 2025 2:59am [facility] Medical Records Department [address] [place] [address] Progress Note - Hospitalist 06/04/25258 MR#: [id number] Acct: [id number] Name: NANCY DELACRUZ Rep #:[id number] : 1965 59 From: Irena Jameson MD PCP: Dr. Sabrina Duran, DO Status:ADM IN Location: [place] [address] Hospitalist Note Patient with increased oxygen requirements previously at 4 L, now up to 12 L, crackles on exam increasing from previous, will administer Lasix 40 mg IV x 1 and continue to monitor. 06/04/25258 <Electronically signed by Irena Jameson MD> Cosigner Signature (if applicable): CC: ~ Signed [facility] Work Phone: 1(178) 530-908009-07-2025 Progress note Author Puja Almeida [facility] Note Date/Time June 03, 2025 5:24pm [facility] Medical Records Department [address] [place] [address] Progress Note - Cardiology 06/03/25 1722 MR#: [id number] Acct: [id number] Name: NANCY DELACRUZ Rep #:[id number] : 1965 59 From: Puja agustin MD PCP: Dr. Sabrina Duran, DO Status:ADM IN Location: [place] [address] Subjective Subjective Denies any cardiac complaints Objective [...] (Auto)78.6 H, Lymph % (Auto) 11.6 L, Crowley % (Auto) 7.2, Eos % (Auto) 1.5, [...] 78.6 H, Lymph % (Auto) 11.6 L, Crowley % (Auto) 7.2, Eos % (Auto) 1.5, Baso % (Auto) 0.6, Absolute Neuts (auto) 6.7, Nucleated RBC % 0, Sodium 142, Potassium 3.8, Chloride 109 H, Carbon Dioxide 21.8, Anion Gap 11, BUN 26 H, Creatinine 1.30 H, Est GFR (MDRD) Non-Af 47 L, BUN/Creatinine Ratio 19.8, Hzllksc51, Calcium 7.8, Magnesium 2.5 H Rhythm: EKG: [...] twice daily. Charges/Coding Visit Charges Inpatient E&M: 42911 Subs Hosp L2 06/03/25 1724 <Electronically signed by Puja Almeida MD> Cosigner Signature (if applicable): CC: ~ Signed [facility] Work Phone: [phone]) 717-566609-07-2025 Progress note Author Yanet Zhou [facility] Note Date/Time June 03, 2025 3:23pm [facility] Medical Records Department [address] [place] [address] Progress Note 06/03/25 1103 MR#: [id number] Acct: [id number] Name: NANCY DELACRUZ Rep #:[id number] : 1965 59 From: Yanet Zhou MD PCP: Dr. Sabrina Duran, DO Status:ADM IN Location: [place] [address] Subjective Subjective Patient seen and examined with [...] (Auto)78.6 H, Lymph % (Auto) 11.6 L, Crowley % (Auto) 7.2, Eos % (Auto) 1.5, [...] lasix 40mg x 1. * pro BNP: 64969 * on 3L oxygen today. Titrate oxygen [...] is proven patient will be referred to HOSPICE CARE CONSULTANT oncologist in [place] on outpatient basis. * Ca 125 elevated [...] been obtained. Charges/Coding Visit Charges Inpatient E&M: 53567 Subs Hosp L2 06/03/25 0399 <Electronically signed by Yanet Zhou MD> Yanet Zhou MD Cosigner Signature (if applicable): CC: ~ Signed [facility] Work Phone: [phone] Progress note Author Irena [facility] Note Date/Time June 02, 2025 10:49pm [facility] Medical Records Department [address] [place] [address] Progress Note - Hospitalist 06/02/258 MR#: [id number] Acct: [id number] Name: NANCY DELACRUZ Rep #:[id number] : 1965 59 From: Irena Jameson MD PCP: Dr. Sabrina Duran, DO Status:ADM IN Location: [place] [address] Hospitalist Note Patient with recurrent asymptomatic versus [...] Cosigner Signature (if applicable): CC: ~ Signed [facility] Work Phone: [phone] Progress note Author Yanet Zhou [facility] Note Date/Time June 02, 2025 3:56pm [facility] Medical Records Department [address] [place] [address] Progress Note 06/02/25 1231 MR#: [id number] Acct: [id number] Name: NANCY DELACRUZ Rep #:[id number] : 1965 59 From: Yanet Zhou MD PCP: Dr. Sabrina Duran, DO Status:ADM IN Location: [place] [address] Subjective Subjective Patient seen and examined with [...] 77.5 H, Lymph % (Auto) 13.3 L, Crowley % (Auto) 6.6, Eos % (Auto) 1.5, [...] pleural effusion. Enlarged cardiac silhouette. Reading Location: [place] [address] Physical Exam Const alert and no apparent [...] lasix 40mg x 1. * pro BNP: 87877 * down to 2L of oxygen today. [...] is proven patient will be referred to HOSPICE CARE CONSULTANT oncologist in [place] on outpatient basis. * #Nonsustained V. tach: [...] chronic anemia Charges/Coding Visit Charges Inpatient E&M: 57549 Subs Hosp L2 06/02/25 1556 <Electronically signed by Yanet Zhou MD> Yanet Zhou MD Cosigner Signature (if applicable): CC: ~ Signed [facility] Work Phone: 1(275) 786-234009-06-2025 Consult note Author Puja Almeida [facility] Note Date/Time June 02, 2025 12:12pm [facility] Medical Records Department [address] [place] [address] Consultation - Cardiology 06/02/25 1205 MR#: [id number] Acct: [id number] Name: NANCY DELACRUZ Rep #:[id number] : 1965 59 From: Puja agustin MD PCP: Dr. Sabrina Duran, DO Status:ADM IN Location: [place] [address] Assessment & Plan Assessment/Plan (1) Atrial fibrillation [...] is a poor historian and apparently requires rgnxkj-bqk-zbkgl assistance from her family members who take [...] revealed preserved EF and apical hypertrophic cardiomyopathy. [facility] Medical History Hypertension CVA (cerebral vascular accident) [...] Irregular rhythm Charges/Coding Visit Charges Inpatient E&M: 37935 Init Hosp L2 Objective Data Vital Signs: [...] 77.5 H, Lymph % (Auto) 13.3 L, Crowley % (Auto) 6.6, Eos % (Auto) 1.5, [...] 77.5 H, Lymph % (Auto) 13.3 L, Crowley % (Auto) 6.6, Eos % (Auto) 1.5, Baso % (Auto) 0.5, Absolute Neuts (auto) 6.5, Nucleated RBC % 0, Sodium 141, Potassium 3.4, Chloride 109 H, Carbon Dioxide 21.7, Anion Gap 10, BUN 25 H, Creatinine 1.28 H, Est GFR (MDRD) Non-Af 48 L, BUN/Creatinine Ratio 19.7, [id number] H, Calcium 7.6, Magnesium 1.8 Rhythm: EKG: [...] pleural effusion. Enlarged cardiac silhouette. Reading Location: [address] Risk Score for UA/STEMI Assesmment (YES = 1) Risk Stratification Applicable: No 06/02/25 1212 <Electronically signed by Puja Almeida MD> Cosigner Signature (if applicable): CC: Dr. Sabrina Duran, ~ Signed [facility] [facility] Work Phone: 1(253) 769-403009-06-2025 Consult note Author Eloisa More [facility] Note Date/Time June 02, 2025 9:25am [facility] Medical Records Department [address] [place] [address] Consultation - S[employer]IOR [employer] NETWORK ENGINEER 06/01/251922 MR#: [id number] Acct: [id number] Name: NANCY DELACRUZ Rep #:[id number] : 1965 59 From: Eloisa woods MD PCP: Dr. Sabirna Duran DO Status:[facility] Assessment & Plan (1) Endometrial [...] of any pregnancies, she was never . [facility] Medical History Hypertension CVA (cerebral vascular accident) [...] (Auto) 73.6 H, Lymph % (Auto) 15.4 L,Crowley % (Auto) 8.0, Eos % (Auto) 2.3, [...] Endometrial thickening. Clinical correlation recommended. Reading Location: [facility]-IR-1 06/02/25924 <Electronically signed by Eloisa More MD> Cosigner Signature (if applicable): CC: Dr. Sabrina Duran, DO~ Signed [facility] Work Phone: 1([phone]) 589-106909-06-2025 Radiology Diagnostic study [facility]09-05-2025 Progress note [facility] Note Date/Time June 01, 2025 4:00pm [facility] Medical Records Department [address] [facility] [place] [address] Progress Note 06/01/25 1301 MR#: [id number] Acct: [id number] Name: NANCY DELACRUZ Rep #:[id number] : 1965 59 From: Yanet Zhou MD PCP: Dr. Sabrina Duran, DO Status:ADM IN Location: [place] [address] Subjective Subjective Patient seen and examined with [...] (Auto) 73.6 H, Lymph % (Auto) 15.4 L,Crowley % (Auto) 8.0, Eos % (Auto) 2.3, [...] Endometrial thickening. Clinical correlation recommended. Reading Location: [place] [address] Physical Exam Const alert, oriented x3 and [...] lasix 40mg x 1. * pro BNP: 54371 * down to 2L of oxygen today. [...] chronic anemia Charges/Coding Visit Charges Inpatient E&M: 35720 Subs Hosp L2 06/01/25 1600 <Electronically signed by Yanet Zhou MD> Yanet Zhou MD Cosigner Signature (if applicable): CC: ~ Signed [facility] Work Phone: 1([phone]) 488-682009-05-2025 Radiology Diagnostic study [facility]09-05-2025 Progress note Author [facility] Note Date/Time June 01, 2025 6:40am [facility] Medical Records Department [address] [place] [address] Progress Note - Hospitalist 06/01/25639 MR#: [id number] Acct: [id number] Name: NANCY DELACRUZ Rep #:[id number] : 1965 59 From: Irena Jameson MD PCP: Dr. Sabrina Duran, DO Status:ADM IN Location: [place] [address] Hospitalist Note staff pharmacist noted possible vaginal bleeding, concern may have contributed to Hgb. 06/01/25 0640 <Electronically signed by Irena Jameson MD> Cosigner Signature (if applicable): CC: ~ Signed [facility] Work Phone: 1(604) 854-599609-05-2025 Progress note Author [facility] Note Date/Time May 31, 2025 11:41pm [facility] Medical Records Department [address] [facility] [place] [address] Progress Note - Hospitalist 05/31/25 2339 MR#: [id number] Acct: [id number] Name: NANCY DELACRUZ Rep #:[id number] : 1965 59 From: Irena Jameson MD PCP: Dr. Sabrina Duran, DO Status:ADM IN Location: [place] [address] Hospitalist Note Patient with 21 beat asymptomatic VT, recent mag normal, recent K normal. Givingher BB night dose now. 05/31/25 2341 <Electronically signed by Irena Jameson MD> Cosigner Signature (if applicable): CC: ~ Signed [facility] Work Phone: 1([phone]) 841-741109-04-2025 Progress note [facility] Note Date/Time May 31, 2025 5:29pm [facility] Medical Records Department [address] [facility] [place] [address] Progress Note 05/31/25 1154 MR#: [id number] Acct: [id number] Name: NANCY DELACRUZ Rep #:[id number] : 1965 59 From: Yanet Zhou MD PCP: Dr. Sabrina Duran, DO Status:ADM IN Location: [place] [address] Subjective Subjective Patient seen and examined with [...] (Auto) 71.7 H, Lymph % (Auto) 18.5 L,Crowley % (Auto) 6.6, Eos % (Auto) 2.8, [...] lasix 40mg x 1. * pro BNP: 53107 * down to 2L of oxygen today. [...] chronic anemia Charges/Coding Visit Charges Inpatient E&M: 49691 Subs Hosp L2 05/31/25 1729 <Electronically signed by Yanet Zhou MD> Yanet Zhou MD Cosigner Signature (if applicable): CC: ~ Signed [facility] Work Phone: 1(999) 290-119909-03-2025 Progress note Author [facility] Note Date/Time May 30, 2025 6:31pm [facility] Medical Records Department [address] [place] [address] Progress Note 05/30/25 1405 MR#: [id number] Acct: [id number] Name: NANCY DELACRUZ Rep #:[id number] : 1965 59 From: Yanet Zhou MD PCP: Dr. Sabrina Duran, DO Status:ADM IN Location: [place] [address] Subjective Subjective Patient seen and examined. She [...] Neut % (Auto)67.7, Lymph % (Auto) 22.0, Crowley % (Auto) 6.5, Eos % (Auto) 2.8, [...] lasix 40mg x 1. * pro BNP: 47739 * requiring 3L of oxygen today. Titrate [...] chronic anemia Charges/Coding Visit Charges Inpatient E&M: 98157 Subs Hosp L2 05/30/25 1831 <Electronically signed by Yanet Zhou MD> Yanet Zhou MD Cosigner Signature (if applicable): CC: ~ Signed [facility] Work Phone: 1(142) 735-903109-03-2025 Progress note Author Nayely Sarkar [facility] Note Date/Time May 30, 2025 5:02pm [facility] Medical Records Department [address] [place] [address] Progress Note - GI 05/30/25 1437 MR#: [id number] Acct: [id number] Name: NANCY DELACRUZ Rep #:[id number] : 1965 59 From: Nayely stewart VAMP MARKER-C PCP: Dr. Sabrina Duran, DO Status:ADM IN Location: [facility] [id number]- 1 Subjective Subjective - denies pain - [...] Neut % (Auto)67.7, Lymph % (Auto) 22.0, Crowley % (Auto) 6.5, Eos % (Auto) 2.8, [...] Cosigner Signature (if applicable): CC: ~ Signed [facility] Work Phone: [phone] Procedure [facility] 05-30-2025 Progress note Author Irena [facility] Note Date/Time May 29, 2025 10:11pm [facility] Medical Records Department [address] [place] [address] Progress Note - Hospitalist 05/29/252209 MR#: [id number] Acct: [id number] Name: NANCY DELACRUZ Rep #:[id number] : 1965 59 From: Irena Jameson MD PCP: Dr. Sabrina Duran, DO Status:ADM IN Location: [place] [address] Hospitalist Note Patient with 12 beat VT, asymptomatic, mag, K normal, diet re-ordered and oral coreg restarted. 05/29/252210 <Electronically signed by Irena Jameson MD> Cosigner Signature (if applicable): CC: ~ Signed [facility] Work Phone: [phone] Progress note Author Yanet Zhou [facility] Note Date/Time May 29, 2025 3:33pm [facility] Medical Records Department [address] [place] [address] Progress Note 05/29/25 1412 MR#: [id number] Acct: [id number] Name: NANCY DELACRUZ Rep #:[id number] : 1965 59 From: Yanet Zhou MD PCP: Dr. Sabrina Duran, DO Status:ADM IN Location: [place] [id number]- 1 Subjective Subjective Patient seen and examined [...] % (Auto)69.1, Lymph % (Auto) 18.0 L, Crowley % (Auto) 7.3, Eos % (Auto) 4.5, [...] lasix 40mg x 1. * pro BNP: 37959 * requiring 3L of oxygen today. Titrate [...] chronic anemia Charges/Coding Visit Charges Inpatient E&M: 31380 Subs Hosp L3 05/29/25 6877 <Electronically signed by Yanet Zhou MD> Yanet Zhou MD Cosigner Signature (if applicable): CC: ~ Signed [facility] Work Phone: 1([phone] 300-277909-02-2025 Progress note Author [facility] Note Date/Time May 29, 2025 6:42am [facility] Medical Records Department [address] [place] [address] Progress Note - Hospitalist 05/29/25641 MR#: [id number] Acct: [id number] Name: NANCY DELACRUZ Rep #:[id number] : 1965 59 From: Irena Jameson MD PCP: Dr. Sabrina Duran, DO Status:ADM IN Location: [place] [address] Hospitalist Note Mag 2.8, will supplement and request repeat mag. 05/29/25641 <Electronically signed by Irena Jameson MD> Cosigner Signature (if applicable): CC: ~ Signed [facility] Work Phone: 1(673) [phone] Progress note Author [facility] Note Date/Time May 29, 2025 1:37am [facility] Medical Records Department [address] [place] [address] Progress Note - Hospitalist 05/29/25135 MR#: [id number] Acct: [id number] Name: NANCY DELACRUZ Rep #:[id number] : 1965 59 From: Irena Jameson MD PCP: Dr. Sabrina Duran, DO Status:ADM IN Location: [place] [address] Hospitalist Note Patient with intermittent short bursts VT, asymptomatic. BP stable from review of trend. Will add back low dose coreg with hold parameters with dose now. Recent mag appropriate. K from am appropriate. 05/29/25136 <Electronically signed by Irena Jameson MD> Cosigner Signature (if applicable): CC: ~ Signed [facility] Work Phone: [phone] 532-305009-01-2025 Progress note [facility] Note Date/Time May 28, 2025 4:48pm [facility] Medical Records Department [address] [facility] [place] [address] Progress Note 05/28/25 1409 MR#: [id number] Acct: [id number] Name: NANCY DELACRUZ Rep #:[id number] : 1965 59 From: Yanet Zhou MD PCP: Dr. Sabrina Duran, DO Status:ADM IN Location: [place] [address] Subjective Subjective Patient seen and examined. Her [...] (Auto)73.7 H, Lymph % (Auto) 14.8 L, Crowley % (Auto) 6.2, Eos % (Auto) 3.9, [...] Glucose Cancelled, Calcium Cancelled, NT pro BNPII 45281 H 05/28/25 06:23: Sodium 152 H, Potassium [...] pulmonary congestion/infiltrates. Enlarged cardiac silhouette. Reading Location: [place] [address] Physical Exam Const alert, oriented x3 and [...] lasix 40mg x 1. * pro BNP: 46226 * #Atrial fibrillation with RVR * new [...] chronic anemia Charges/Coding Visit Charges Inpatient E&M: 84999 Subs Hosp L2 05/28/25 8326 <Electronically signed by Yanet Zhou MD> Yanet Zhou MD Cosigner Signature (if applicable): CC: ~ Signed [facility] Work Phone: [phone] 971-215409-01-2025 Progress note Author Julian Monsivais [facility] Note Date/Time May 28, 2025 7:11am [facility] Medical Records Department [address] [place] [address] Progress Note - Horticultural Agent 05/28/25 0703 MR#: [id number] Acct: [id number] Name: NANCY DELACRUZ Rep #:[id number] : 1965 59 From: Julian Monsivais DO PCP: Dr. Sabrina Duran DO Status:ADM IN Location: [place] [address] Assessment & Plan Assessment/Plan (1) Acute hypoxemic [...] speech therapy. This note was generated with [employer] dictation software. It may contain incorrectwords, spelling, [...] (Auto)73.7 H, Lymph % (Auto) 14.8 L, Crowley % (Auto) 6.2, Eos % (Auto) 3.9, [...] Glucose Cancelled, Calcium Cancelled, NT pro BNPII 02734 H 05/28/25 06:23: Sodium 152 H, Potassium [...] pulmonary congestion/infiltrates. Enlarged cardiac silhouette. Reading Location: [place] [address] Physical Exam Const alert and no apparent [...] flat affect Charges/Coding Visit Charges Inpatient E&M: 31516 Subs Hosp L2 05/28/25 0711 <Electronically signed by Julian Monsivais DO> Cosigner Signature (if applicable): CC: ~ Signed [facility] Work Phone: 1(956) 553-598009-01-2025 Radiology Diagnostic study [facility]08-31-2025 Progress note Author Matt Acevedo [facility] Note Date/Time May 27, 2025 1: 38pm [facility] Medical Records Department [address] [place] [address] Progress Note - Hospitalist 05/27/25819 MR#: [id number] Acct: [id number] Name: NANCY DELACRUZ Rep #:[id number] : 1965 59 From: Matt Acevedo DO PCP: Dr. Sabrina Duran DO Status:ADM IN Location: [place] [address] Reason for Visit Chief Complaint: altered level [...] (Auto) 78.0 H, Lymph % (Auto) 11.6 L,Crowley % (Auto) 6.6, Eos % (Auto) 2.6, [...] at bedside. Charges/Coding Visit Charges Inpatient E&M: 90615 Subs Hosp L2 05/27/25 1338 <Electronically signed by Matt Acevedo DO> Cosigner Signature (if applicable): CC: ~ Signed [facility] Work Phone: [phone] 882-503908-30-2025 Progress note Author Matt Acevedo [facility] Note Date/Time May 26, 2025 12 :09pm [facility] Medical Records Department [address] [place] [address] Progress Note - Hospitalist 05/26/25 0817 MR#: [id number] Acct: [id number] Name: NANCY DELACRUZ Rep #:[id number] : [...] (Auto) 80.5 H, Lymph % (Auto)9.8 L, Crowley % (Auto) 6.7, Eos % (Auto) 1.9, [...] 79.3 H, Lymph % (Auto) 11.0 L, Crowley % (Auto) 6.5, Eos % (Auto) 2.1, [...] at bedside. Charges/Coding Visit Charges Inpatient E&M: 50818 Subs Hosp L2 05/26/25 1209 <Electronically signed by Matt Acevedo DO> Cosigner Signature (if applicable): CC: ~ Signed [facility] Work Phone: 1(229) 197-614208-30-2025 Consult note Author Matt Haines [facility] Note Date/Time May 26, 2025 5: 32am [facility] Medical Records Department [address] [facility] [place] [address] Pharmacokinetic/Renal -Consult 05/26/25 0530 MR#: [id number] Acct: [id number] Name: NANCY DELACRUZ Rep #:[id number] : [...] Signature (if applicable): Date CC: ~ Signed [facility] Work Phone: [phone] 209-700008-29-2025 Progress note Author Matt Acevedo [facility] Note Date/Time May 25, 2025 10 :59am [facility] Medical Records Department [address] [place] [address] Progress Note - Hospitalist 08/29/25 0720 MR#: [id number] Acct: [id number] Name: NANCY DELCARUZ Rep #:[id number] : 1965 59 From: [...] 82.3 H, Lymph % (Auto) 8.4 L, Crowley % (Auto) 6.4, Eos % (Auto) 1.9, [...] full code. Charges/Coding Visit Charges Inpatient E&M: 40818 Subs Hosp L2 05/25/25 1059 <Electronically signed by Matt Acevedo DO> Cosigner Signature (if applicable): CC: ~ Signed [facility] Work Phone: [phone]) 666-118708-29-2025 Progress note Author Julian Monsivais [facility] Note Date/Time May 25, 2025 9: 22am [facility] Medical Records Department [address] [place] [address] Progress Note - Horticultural Agent 05/25/25 0732 MR#: [id number] Acct: [id number] Name: NANCY DELACRUZ Rep #:[id number] : [...] 82.3 H, Lymph % (Auto) 8.4 L, Crowley % (Auto) 6.4, Eos % (Auto) 1.9, [...] of CHF is not excluded. Reading Location: [facility] Physical Exam Const Constitutional Narrative: Remains [...] simple commands appropriately. Charges/Coding Procedures Hospitalists Procedures: 82282 Critical Care 1st Hr 05/25/25 0922 <Electronically signed by Julian Monsivais DO> Cosigner Signature (if applicable): CC: ~ Signed [facility] Work Phone: [phone] 168-650108-28-2025 Progress note Author Matt Acevedo [facility] Note Date/Time May 24, 2025 1: 35pm [facility] Medical Records Department [address] [place] [address] [place] [address] Progress Note - Hospitalist 05/24/25 0735 MR#: [id number] Acct: [id number] Name: NANCY DELACRUZ Rep #:[id number] : [...] 82.2 H, Lymph % (Auto) 9.8 L, Crowley % (Auto) 5.7, Eos % (Auto) 1.2, [...] a small left effusion, unchanged. Reading Location: [facility] Physical Exam Const Constitutional Narrative: Awake. [...] full code. Charges/Coding Visit Charges Inpatient E&M: 41652 Subs Hosp L2 05/24/25 1335 <Electronically signed by Matt Acevedo DO> Cosigner Signature (if applicable): CC: ~ Signed [facility] Work Phone: 1(448) 339-233508-28-2025 Progress note Author Julian Monsivais [facility] Note Date/Time May 24, 2025 12 :01pm [facility] Medical Records Department [address] [place] [address] Progress Note - Horticultural Agent 05/24/25 0519 MR#: [id number] Acct: [id number] Name: NACNY DELACRUZ Rep #:[id number] : 1965 59 [...] 82.2 H, Lymph % (Auto) 9.8 L, Crowley % (Auto) 5.7, Eos % (Auto) 1.2, [...] of CHF is not excluded. [facility] Exam Const Constitutional Narrative: Intubated, sedated [...] sedated on vent Charges/Coding Procedures Hospitalists Procedures: 60535 Critical Care 1st Hr 05/24/25 1201 <Electronically signed by Julian Monsivais DO> Cosigner Signature (if applicable): CC: ~ Signed [facility] Work Phone: 1([phone]) 396-324008-28-2025 Radiology Diagnostic study [facility]08-28-2025 Consult note Author Matt Haines [facility] Note Date/Time May 24, 2025 4: 41am [facility] Medical Records Department [address] [place] [address] Pharmacokinetic/Renal -Consult 05/24/25 0439 MR#: [id number] Acct: [id number] Name: NANCY DELACRUZ Rep #:[id number] : [...] [date and time ordered]: 05/26/25 @0430 05/24/25 044 <Electronically signed by Matt wong> Date _ Matt Jang Signature (if applicable): Date CC: ~ Signed [facility] Work Phone: [phone]) [phone] Consult note Author Rocio Ortiz [facility] Note Date/Time May 23, 2025 6: 23pm [facility] Medical Records Department [address] [place] [address] Pharmacokinetic/Renal -Consult 05/23/251821 MR#: [id number] Acct: [id number] Name: NANCY DELACRUZ Rep #:[id number] : [...] Signature (if applicable): Date CC: ~ Signed [facility] Work Phone: [phone]) 357-605508-27-2025 Progress note Author Matt Acevedo [facility] Note Date/Time May 23, 2025 1: 26pm [facility] Medical Records Department [address] [place] [address] Progress Note - Hospitalist 05/23/25 0737 MR#: [id number] Acct: [id number] Name: NANCY DELACRUZ Rep #:[id number] : [...] 239, MPV 9.9, Immature Gran % (Auto) VAMP MARKER, Neut % (Auto) VAMP MARKER, Lymph % (Auto) VAMP MARKER, Crowley % (Auto) VAMP MARKER, Eos % (Auto) VAMP MARKER, Baso % (Auto) VAMP MARKER, Absolute Neuts (auto) 11.6 H, Absolute Lymphs (auto) 1.32, Nucleated RBC % 0.8, Differential Comment ,Plt Morphology Comment LARGE, Polychromasia 1+, Anisocytosis 2+, Macrocytosis 1+, Ovalocytes RARE, Sodium 146 H, Potassium 3.8, Chloride 118 H, Carbon Mmyzubl88.8 L, Anion Gap 10, BUN 42 H, [...] of CHF is not excluded. Reading Location: [facility] Physical Exam Const Constitutional Narrative: Intubated. [...] full code. Charges/Coding Visit Charges Inpatient E&M: 90677 Subs Hosp L2 05/23/25 1326 <Electronically signed by Matt Acveedo DO> Cosigner Signature (if applicable): CC: ~ Signed [facility] Work Phone: [phone]) 720-437008-27-2025 Progress note Author Sadi Andrade [facility] Note Date/Time May 23, 2025 1: 01pm [facility] Medical Records Department [address] [place] [address] Progress Note - Horticultural Agent 05/23/25 1254 MR#: [id number] Acct: [id number] Name: NANCY DELACRUZ Rep #:[id number] : [...] 05/21/25 13:29 05/22/25 19:30 IV 0 mls/hr .[id number] PRN Infusion Saline Flush Sodium Chloride 250 mls @ 15 mls/hr 05/21/25 13:29 IV .[id number] PRN Additional IVPB Infusion Fentanyl 100 mls [...] / Sodium Chloride CONT INF 2 mcg/min .[id number] JOSÉ MIGUEL 3.8 mls/hr Titration Protocol 5 [...] Vancomycin Trough/Random Due [facility] 05/23/25 16:00 [facility] Lab / Micro Data 05/23/25 03:55 05/23/25 03:55 Labs: Laboratory Results - last 24 hr 05/23/25 03:55: WBC 13.9 H, RBC 3.14 L, Hgb 7.2 L, Hct 24.0 L, MCV 76.4 L, MCH 22.9 L, MCHC 30.0 L, RDW Std Deviation 66.5 H, RDW Coeff of Federico 24.9 H, Plt Count 239, MPV 9.9, Immature Gran % (Auto) VAMP MARKER, Neut % (Auto) VAMP MARKER, Lymph % (Auto) VAMP MARKER, Crowley % (Auto) VAMP MARKER, Eos % (Auto) VAMP MARKER, Baso % (Auto) VAMP MARKER, Absolute Neuts (auto) 11.6 H, Absolute Lymphs (auto) 1.32, Nucleated RBC % 0.8, Differential Comment ,Plt Morphology Comment LARGE, Polychromasia 1+, Anisocytosis 2+, Macrocytosis 1+, Ovalocytes RARE, Sodium 146 H, Potassium 3.8, Chloride 118 H, Carbon Kjyvyot48.8 L, Anion Gap 10, BUN 42 H, [...] Cosigner Signature (if applicable): CC: ~ Signed [facility] Work Phone: [phone] 376-465108-27-2025 Procedure [facility] 05-23-2025 Procedure [facility]08-27-2025 Radiology Diagnostic study [facility]08-26-2025 NoteAcceptable Specimen? Acceptable Specimen(Evaluation not needed) Gram Stain 1+ Gram positive cocci 4+ Red Blood Cells Rare White Blood CellsWRegency Hospital ToledoComment on above:Performed By: #### M100.2000, M100.2400 ####[facility] [id number] [facility] [place], [address](915) [phone] Progress note Author aMtt Acevedo [facility] Note Date/Time May 22, 2025 1: 26pm [facility] Medical Records Department [address] [place] [address] Progress Note - Hospitalist 05/22/25 0752 MR#: [id number] Acct: [id number] Name: NANCY DELACRUZ Rep #:[id number] : [...] (Auto) 88.4 H, Lymph %(Auto) 6.5 L, Crowley % (Auto) 4.1, Eos % (Auto) 0.0, [...] 4Hr 32 H, [place] [address] H, Triglycerides 80, Vitamin B12 717, Procalcitonin 0.51 H, TSH 1.040 05/21/25 17:30: Serum Folate 5.60 05/21/25 17:40: Urine Color Yellow, Urine Clarity Cloudy, Urine pH 5.0, Ur Specific [place] 1.020, Urine Protein 100 H, Urine Glucose [...] 92.0 H, Lymph % (Auto) 2.3 L, Crowley % (Auto) 4.6, Eos % (Auto) 0.0, [...] recommended to ensure complete resolution Reading Location: [id number] Echocardiogram 05/21/25 10:51 Interpretation Summary Normal LV [...] stable, without evidence of cardiomegaly. Reading Location: [facility] Renal Ultrasound 05/21/25 14:49 IMPRESSION: No hydronephrosis. 4 mm nonobstructive calculus within the left kidney. 3.1 x 3.5 cm and 3.4 x 2.9 cm cysts within the right kidney and 1.9 x 1.6 cm cyst within the left kidney. Reading Location: [facility] Chest X-Ray 05/22/25 06:00 IMPRESSION: Tubes and [...] at bedside. Charges/Coding Visit Charges Inpatient E&M: 54891 Subs Hosp L2 05/22/25 1326 <Electronically signed by Matt Acevedo DO> Cosigner Signature (if applicable): CC: ~ Signed [facility] Work Phone: [phone]) [phone] Progress note Author Julian Monsivais [facility] Note Date/Time May 22, 2025 10 :50am [facility] Medical Records Department [address] [place] [address] Progress Note - Horticultural Agent 05/22/25 0532 MR#: [id number] Acct: [id number] Name: NANCY DELACRUZ Rep #:[id number] : [...] (Auto) 88.4 H, Lymph %(Auto) 6.5 L, Crowley % (Auto) 4.1, Eos % (Auto) 0.0, [...] 4Hr 32 H[place] [address] H, Triglycerides 80, Vitamin B12 717, Procalcitonin 0.51 H, TSH 1.040 05/21/25 17:30: Serum Folate 5.60 05/21/25 17:40: Urine Color Yellow, Urine Clarity Cloudy, Urine pH 5.0, Ur Specific [place] 1.020, Urine Protein 100 H, Urine Glucose [...] 92.0 H, Lymph % (Auto) 2.3 L, Crowley % (Auto) 4.6, Eos % (Auto) 0.0, [...] recommended to ensure complete resolution Reading Location: [id number] Echocardiogram 05/21/25 10:51 Interpretation Summary Normal LV size. Mild concentric left ventricular hypertrophy. Left ventricular systolic function is normal. The left ventricular ejection fraction is 60 %. Apical hypertrophic cardiomyopathy present. Contrast injection was performed. Ordering Physician: Dar Hunt Referring Physician: SABRINA ROCHA Performed By: Lana Rapjut RCS Chest X-Ray 05/21/25 14:11 IMPRESSION: Bilateral [...] without evidence of cardiomegaly. Reading Location: [facility] Renal Ultrasound 05/21/25 14:49 IMPRESSION: No hydronephrosis. 4 mm nonobstructive calculus within the left kidney. 3.1 x 3.5 cm and 3.4 x 2.9 cm cysts within the right kidney and 1.9 x 1.6 cm cyst within the left kidney. Reading Location: [facility] Physical Exam Const Constitutional Narrative: Intubated, sedated [...] sedated on vent Charges/Coding Procedures Hospitalists Procedures: 07613 Critical Care 1st Hr 05/22/25 1050 <Electronically signed by Julian Monsivais DO> Cosigner Signature (if applicable): CC: ~ Signed [facility] Work Phone: 1(668) 119-876208-26-2025 Radiology Diagnostic study [facility]08-25-2025 Consult note Author uJlian Monsivais [facility] Note Date/Time May 21, 2025 8: 17pm [facility] Medical Records Department [address] [place] [address] Consultation - Horticultural Agent 05/21/25 1334 MR#: [id number] Acct: [id number] Name: NANCY DELACRUZ Rep #:[id number] : [...] was placed. Order for Levophed was initiated. [facility] Medical History Hypertension CVA (cerebral vascular accident) [...] (Auto) 88.4 H, Lymph %(Auto) 6.5 L, Crowley % (Auto) 4.1, Eos % (Auto) 0.0, [...] recommended to ensure complete resolution Reading Location: [id number] Echocardiogram 05/21/25 10:51 Interpretation Summary Normal LV [...] fluids: Vasopressors started Charges/Coding Procedures Hospitalists Procedures: 15105 Critical Care 1st Hr 05/21/252016 <Electronically signed by Julian Monsivais DO> Cosigner Signature (if applicable): CC: Dr. Sabrina Duran DO~ Signed [facility] Work Phone: 1(453) 922-170208-25-2025 Consult note Author Jeffery Mcrae [facility] Note Date/Time May 21, 2025 6: 30pm [facility] Medical Records Department [address] [place] [address] Consultation - GI 05/21/25 1815 MR#: [id number] Acct: [id number] Name: NANCY DELACRUZ Rep #:[id number] : [...] hypertrophic cardiomyopathy present. Contrast injection was performed. [facility] Medical History Hypertension CVA (cerebral vascular accident) [...] (Auto) 88.4 H, Lymph %(Auto) 6.5 L, Crowley % (Auto) 4.1, Eos % (Auto) 0.0, [...] 4Hr 32 H, [place] [address] H, Procalcitonin 0.51 H ABG Data ABG [...] recommended to ensure complete resolution Reading Location: [id number] Echocardiogram 05/21/25 10:51 Interpretation Summary Normal LV [...] stable, without evidence of cardiomegaly. Reading Location: [place] [address] Renal Ultrasound 05/21/25 14:49 IMPRESSION: No hydronephrosis. 4 mm nonobstructive calculus within the left kidney. 3.1 x 3.5 cm and 3.4 x 2.9 cm cysts within the right kidney and 1.9 x 1.6 cm cyst within the left kidney. Reading Location: [facility] Assessment & Plan Assessment/Plan (1) (HFpEF) heart [...] critical care Charges/Coding Visit Charges Inpatient E&M: 41252 Init Hosp L3 05/21/25 1830 <Electronically signed by Jeffery Mcrae DO> Cosigner Signature (if applicable): CC: Dr. Sabrina Duran DO~ Signed [facility] Work Phone: 1(522) 955-252608-25-2025 History and physical note Author Matt Acevedo [facility] Note Date/Time May 21, 2025 4: 09pm [facility] Medical Records Department [address] [place] [address] H&P Exam - Hospitalist 05/21/25 1526 MR#: [id number] Acct: [id number] Name: NANCY DELACRUZ Rep #:[id number] : [...] and had a central venous catheter placed. [facility] Medical History Hypertension CVA (cerebral vascular accident) [...] (Auto) 88.4 H, Lymph %(Auto) 6.5 L, Crowley % (Auto) 4.1, Eos % (Auto) 0.0, [...] 4Hr 32 H, [place] [address] H, Procalcitonin 0.51 H ABG Data ABG [...] recommended to ensure complete resolution Reading Location: [id number] Echocardiogram 05/21/25 10:51 Interpretation Summary Normal LV [...] stable, without evidence of cardiomegaly. Reading Location: [facility] Assessment & Plan Assessment/Plan (1) Shock: PLAN: [...] at bedside. Charges/Coding Visit Charges Inpatient E&M: 93477 Init Hosp L3 05/21/25 1609 <Electronically signed by Matt Acevedo DO> Cosigner Signature (if applicable): CC: Dr. Matt Acevedo DO; Dr. Sabrina Duran DO~ Signed [facility] Work Phone: 1(705) 399-550508-25-2025 Radiology Diagnostic study [facility]08-25-2025 Consult note Author Estela Linares [facility] Note Date/Time May 21, 2025 3: 37pm [facility] Medical Records Department [address] [facility] [place] [address] Pharmacokinetic/Renal -Consult 05/21/25 9106 MR#: [id number] Acct: [id number] Name: NANCY DELACRUZ Rep #:[id number] : [...] <Electronically signed by Estela Linares> Date _ Estela Jang Signature (if applicable): Date CC: ~ Signed [facility] Work Phone: 1(744) 695-773608-25-2025 Radiology Diagnostic study [facility]08-25-2025 [facility] Procedure [facility]08-25-2025 Evaluation note* Diagnosis Onset Date Resolution Status [...] 2025 11:37am Acute on chronic kidney failure 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 May 21, 2025 11:37am [facility] Work Phone: 1(179) 587-526408-25-2025 Discharge summary Author [facility] Note Date/Time May 21, 2025 11 :11am [facility] Medical Records Department [address] [place] [address] Emergency Department Summary 05/21/25 MR#: [id number] Acct: [id number] Name: NANCY DELACRUZ Rep #:[id number] : [...] 88.4 H Lymph % (Auto) 6.5 L Crowley % (Auto) 4.1 Eos % (Auto) 0.0 [...] recommended to ensure complete resolution Reading Location: [facility] EKG Initial EKG: Attestation: I personally reviewed and interpreted this EKG as follows: Interpretation: Atrial Fibrillation (Rate is 104. QRS duration 74 ms. QTduration 3 and 26 ms. [place] is normal. There is no ossific changes [...] undifferentiated shock, DNR discussion), Discussing w/Patient &/or Family/Sap Project Manager, Discussing w/Consultants and Arranging Admission or Transfer Discharge Plan Dx/Rx/DC Orders Clinical Impression: Shock, Signs and symptoms of anemia, Symptomatic anemia, New onset a-fib, Acidosis, lactic, Acute hyperkalemia, Microcytic anemia, Acute on chronic kidneyfailure, Elevated troponin, Myocardial ischemia determined by electrocardiography, Acute hypoxemic respiratory failure Disposition Disposition: Acute Care Hospital [facility] What to do if you have Problems For any increased pain, shortness of breath, bleeding, nausea or vomiting, chestpain, or any unexpected problems, contact your Primary Care Provider. Call [facility] ([phone]) or report to the closest Emergency Room. Call 911 if necessary. 05/21/25 1111 <Electronically signed by Dar Hunt MD> Cosigner Signature (if applicable): CC: Dr. Sabrina Duran, DO ~ Signed [facility] Work Phone: 1(152) 504-745408-25-2025 Discharge summary [facility] Medical Records Department [address] [place] [address] Emergency Department Summary 05/21/25 MR#: [id number] Acct: [id number] Name: NANCY DELACRUZ Rep #:[id number] : [...] 88.4 H Lymph % (Auto) 6.5 L Crowley % (Auto) 4.1 Eos % (Auto) 0.0 [...] recommended to ensure complete resolution Reading Location: [facility] EKG Initial EKG: Attestation: I personally reviewed and interpreted this EKG as follows: Interpretation: Atrial Fibrillation (Rate is 104. QRS duration 74 ms. QTduration 3 and 26 ms. [place] is normal. There is no ossific changes [...] undifferentiated shock, DNR discussion), Discussing w/Patient &/or Family/Sap Project Manager, Discussing w/Consultants and Arranging Admission or Transfer Discharge Plan Dx/Rx/DC Orders Clinical Impression: Shock, Signs and symptoms of anemia, Symptomatic anemia, New onset a-fib, Acidosis, lactic, Acute hyperkalemia, Microcytic anemia, Acute on chronic kidneyfailure, Elevated troponin, Myocardial ischemia determined by electrocardiography, Acute hypoxemic respiratory failure Disposition Disposition: Acute Care Hospital [facility] What to do if you have Problems For any increased pain, shortness of breath, bleeding, nausea or vomiting, chestpain, or any unexpected problems, contact your Primary Care Provider. Call [facility] ([phone]) or report tothe closest Emergency Room. Call 911 if necessary. 05/21/25 1111 Cosigner Signature (if applicable): CC: Dr. Sabrina Duran, ~ Signed [facility]08-25-2025 Radiology Diagnostic study note [facility] Imaging Services [address] [place], [place] [address] Chest 1 View (Portable) MR#: [id number] Acct: [id number] Name: NANCY DELACRUZ Rep #: [id number] : 1965 F 59 From: Lauri Hannah MD PCP: Dr. Sabrina Duran, Status: REG ER Study:Chest 1 View (Portable) Date of Exam: 05/21/25 Exam# [id number] Ordering Dr: Emigdio Hunt MD PROCEDURE: CHEST [...] recommended to ensure complete resolution Reading Location: [id number] CC: Dr. Sabrina Duran DO; Dr. Dar Hunt MD ~ Instructor Of Education: [facility]igned [facility] Author Dar Hunt [facility] Note Date/Time May 21, 2025 11 :11am [facility] Medical Records Department [address] [place] [address] Emergency Department Summary 05/21/25 MR#: [id number] Acct: [id number] Name: NANCY DELACRUZ Rep #:[id number] : [...] 88.4 H Lymph % (Auto) 6.5 L Crowley % (Auto) 4.1 Eos % (Auto) 0.0 [...] recommended to ensure complete resolution Reading Location: [facility] EKG Initial EKG: Attestation: I personally reviewed and interpreted this EKG as follows: Interpretation: Atrial Fibrillation (Rate is 104. QRS duration 74 ms. QTduration 3 and 26 ms. [place] is normal. There is no ossific changes [...] undifferentiated shock, DNR discussion), Discussing w/Patient &/or Family/Sap Project Manager, Discussing w/Consultants and Arranging Admission or Transfer Discharge Plan Dx/Rx/DC Orders Clinical Impression: Shock, Signs and symptoms of anemia, Symptomatic anemia, New onset a-fib, Acidosis, lactic, Acute hyperkalemia, Microcytic anemia, Acute on chronic kidneyfailure, Elevated troponin, Myocardial ischemia determined by electrocardiography, Acute hypoxemic respiratory failure Disposition Disposition: [facility] What to do if you have Problems For any increased pain, shortness of breath, bleeding, nausea or vomiting, chestpain, or any unexpected problems, contact your Primary Care Provider. Call [facility] ([phone]) or report to the closest Emergency Room. Call 911 if necessary. 05/21/25 1111 <Electronically signed by Dar Hunt MD> Cosigner Signature (if applicable): CC: Dr. 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 May 21, 2025 11:37am [facility] Work Phone: Evaluation note* Diagnosis Acute hypoxemic respiratory failure (HCC)- Primary Acute pneumonia Acute hypoxemic respiratory failure (HCC) Acute pneumonia [facility] Diagnosis Vaginal bleeding- Primary Other specified [...] with cerebral infarction [facility]* Diagnosis Acute hypoxemic respiratory failure (HCC)- Primary Acute pneumonia Endometrial cancer (HCC) Malignant neoplasm of corpus uteri, except isthmus [facility]No reason for referral [facility] Work Phone: Reason for visit Narrative* Auth/Cert (Routine) Specialty Diagnoses / Procedures Referred By Svetlana collazo Referred To Contact Diagnoses Vaginal bleeding acute blood loss anemia Procedures N93.9 Navi Roberts MD [address] [place] [address] Phone: tel: fax: [facility] Cardiac Progressive Care Unit PCU [address] [place] [id number] Phone: tel: Referral ID Status Reason Start Date Expiration Date Visits Re quested Visits Authorized [id number] 1 1 [facility] Chief Complaint and Reason for [...] Do you have a Healthcare Power of Lead Refiner? Yes May 21, 2025 9:25am Name of Medical Power of Lead Refiner BROTHER May 21, 2025 9:25am Date Activated [...] Dates Dr. Sabrina Duran DO Primary Care Provide r, Attending Provider, [...] St art: May 24, 2025 Dr. Phi Waston MD Other Provider Active Star t: May [...] art: May 24, 2025 Dr. Mariano Glasgow DO Other Provider Active Start: May 24, [...] Star t: May 26, 2025 Dr. Ziggy Sheltno MD Other Provider Active Sta rt: May [...] Provider Active St art: May 28, 2025 EPSERANZA Fairbanks Other Provider Active Star t: May [...] St art: May 29, 2025 Dr. Kira Silva MD Other Provider Active Start: May 29, 2025 Dr. Gabrielle Nickerson MD Other Provider Active St art: May 29, 2025 Dr. Mariano Glasgow DO Other Provider Active Start: May 29, 2025 Dr. Floyd Bernal MD Other Provider Active Star t: May 29, 2025 Dr. Mike Juarez MD Other Provider Active Sta rt: May 29, 2025 Dr. Yanet Zhou MD Attending Provider Active Start: May 29, [...] Provider Active Start: May 30, 2025 Dr. Dra Hunt MD Emergency Provider Active Sta rt: [...] Star t: May 31, 2025 Dr. Nixon Kitchen MD Other Provider [...] Sta rt: June 01, 2025 Dr. Kentrell Cottrlel MD Other Provider Active St art: June [...] Provider Active Start: June 02, 2025 Dr. aSdi Andrade MD Other Provider Active Start : [...] Active Star t: June 03, 2025 Dr. Julina Monsivais DO Other Provider Active Start : June 03, 2025 Dr. Juvenal Hedrick MD Other Provider Active Sta rt: June 03, 2025 Dr. Kentrell Cottrell MD Other Provider Active St art: June 03, 2025 Dr. Jj Ragland MD Other Provider Active S tart: June 03, 2025 Dr. Kassy Shipman MD Other Provider Active Start: June 03, 2025 Dr. Said Andrade MD Other Provider Active Start : [...] t: June 03, 2025 Dr. Julian Monsivais , Other Provider [...] Active Start : June 04, 2025 Dr. Frankei Conway MD Other Provider Active Start: June [...] art: June 05, 2025 Swetha Asif , VAMP MARKER-C Other Provider Active Start : June 05, [...] Active St art: June 06, 2025 Swetha Aisf NP-C Other Provider Active Start : June [...] Active Star t: June 06, 2025 Dr. Salu Brooks MD Other Provider Active Start: June [...] Star t: June 10, 2025 Dr. Ziggy Sheltno MD Attending Provider Active Start: June 10, [...] Active Star t: June 11, 2025 Dr. iZggy Shelton MD Attending Provider Active Start: June [...] Star t: June 11, 2025 Dr. Mike Juarze MD Other Provider Active Sta rt: June 11, 2025 Dr. Eloisa More MD Other Provider Active Start: June 11, 2025 Dr. Puja Almeida MD Other Provider Active Start: June 11, 2025 Dr. Yanet Zhou MD Other Provider Active St art: June 11, 2025 Dr. Hiren Sanders MD Other Provider Active Start: June 11, 2025 Chro Relationship Specialty Start Date End Date RaSabrina hazel Eddi [address] [place] [address] PCP - General Family Medicine 06/12/25 David Ortega MD [address] [place], [place] [id number] Consulting Physician Gynecologic Oncology 06/13/25 Chro Relationship Specialty Start Date End Date RayaseminSabrina [address] [place] [address] PCP - General Family Medicine 06/12/25 David Ortega MD [address] [place], [place] [id number] Consulting Physician Gynecologic Oncology 06/13/25 Chro Relationship Specialty Start Date End Date Sabrina Duran [address] [place] [place] [phone] PCP - General Family Medicine 06/12/25 David Ortega MD [address] [place], [place] [id number] Consulting Physician Gynecologic Oncology 06/13/25 Chro Relationship Specialty Start Date End Date Sabrina Duran [address] [place] [phone] PCP - General Family Medicine 06/12/25 David Ortega MD [address] [place] [address] Consulting Physician Gynecologic Oncology 06/13/25 Chro Relationship Specialty Start Date End Date Sabrina Duran [address] [place] [phone] PCP - General Family Medicine 06/12/25 David Ortega MD [address] [place], [place] [phone] Consulting Physician Gynecologic Oncology 06/13/25 Goals (unrecognized [...] Transfer Provider) 1021 (Given - Provider: Owen Hall, WES) furosemide (Lasix) injection 40 mg (CANCELED) [...] from all sources in 24 hours. 1114 ([facility] Hold - Provider: Automatic Transfer Provider - Reason: Patient not available)1523 ([facility] Unhold - Provider: Automatic Transfer Provider)1642 (See [...] from all sources in 24 hours. 1114 ([facility] Hold - Provider: Automatic Transfer Provider - Reason: Patient not available)1523 ([facility] Unhold - Provider: Automatic Transfer Provider)1642 (Given - Provider: Nickolas Olivares RN)2140 (Given - Provider: Nimo Haley, WES) levonorgestrel (Liletta) 20.1 MCG/DAY IUD (CANCELED) As needed, Starting on Becky 06/28/25 at 1308, Intraprocedure 1308 (Given - Provider: David Ortega MD - Comment: exp: [id number]: [id number]) LORazepam (Ativan) injection 0.5 mg 0.5 mg, IntraVENous, Every 6 hours PRN, anxiety, Starting on Becky 06/28/25 at 1012, For IV doses dilute dose with 1ml NS. 1058 (Given - Provider: Nickolas Olivares RN)1114 ([facility] Hold - Provider: Automatic Transfer Provider - Reason: Patient not available)1523 ([facility] Unhold - Provider: Automatic Transfer Provider)2141 (Given - Provider: Nimo Haley RN) metoprolol tartrate (Lopressor) injection 5 mg 5 mg, IntraVENous, Every 6 hours PRN, tachycardia, HR > 120, Starting on Wed06/17/25 at 1559, Hold for SBP<90 1114 (NOV Hold - Provider: Automatic Transfer Provider - Reason: Patient not available)1523 ([facility] Unhold - Provider: Automatic Transfer Provider) ondansetron [...] (Given - Provider: Zaida Worrell APRN - INFORMATION ASSURANCE OFFICER)152 ([facility] Unhold - Provider: Automatic Transfer Provider)194 (Given [...] blister pack until just before administering. 1114 ([facility] Hold - Provider: Automatic Transfer Provider - Reason: Patient not available)1308 (See Alternative - Provider: Zaida Worrell APRN - INFORMATION ASSURANCE OFFICER)1523 ([facility] Unhold - Provider: Automatic Transfer Provider)194 (See Alternative - Provider: Nimo Haley RN) polyethylene glycol (PEG) 3350 (Miralax) packet 17 g 17 g, Oral, Daily PRN, constipation, Starting on Wed06/11/25 at 2351, 1st line for treatment of constipation - give scheduled if no bowel movement in past 24 hours. 1114 ([facility] Hold - Provider: Automatic Transfer Provider - Reason: Patient not available)1523 ([facility] Unhold - Provider: Automatic Transfer Provider) 1201 [...] less into rate field of order. 1114 ([facility] Hold - Provider: Automatic Transfer Provider - Reason: Patient not available)1523 ([facility] Unhold - Provider: Automatic Transfer Provider) sodium [...] less into rate field of order. 1114 ([facility] Hold - Provider: Automatic Transfer Provider - Reason: Patient not available)1523 ([facility] Unhold - Provider: Automatic Transfer Provider) sodium [...] been cleared of remaining blood product. 1114 ([facility] Hold - Provider: Automatic Transfer Provider - Reason: Patient not available)1523 ([facility] Unhold - Provider: Automatic Transfer Provider) sterile [...] section and content) DATE CREATED AUTHOR 07/01/2025 [facility] DATE CREATED AUTHOR AUTHOR'S ORGANIZ ATION 07/07/2025 [facility] DATE CREATED AUTHOR AUTHOR'S ORGANIZ ATION 07/31/2025 [facility] FOR RECORDS PERTAINING TO PATIENTS [...] BE BASED ON THE PRIMARY CLINICAL RECORDS. [employer] provides no warranty or guarantee of the accuracy or completeness of information in this document.
[2025-08-19 18:15] LABS: Procalcitonin 0.09 ng/mL (<=0.10)
[2025-08-20] VITALS (10 sets, daily range): BP systolic 124–164; BP diastolic 41–109; PULSE 76–103; RESP 18–28; TEMP 36.4–38.2; O2SAT 93–96; BMI 26.7
[2025-08-20 06:47] LABS: Hematocrit 33.1 % (37-47); Hemoglobin 10.0 g/dL (12.0-15.0); Mean Corp Hgb Conc 30.2 g/dL (32-36); Mean Corpuscular Volume 74.9 fL (81-99); Mean Platelet Vol. 9.8 fl (6.2-12.0); Platelet Count 421 K/mm3 (150-450); RBC Distribution Width CV 17.8 % (11.6-14.6); RBC Distribution Width SD 48.2 fl (35.1-43.9); Red Blood Count 4.42 M/mm3 (4.2-5.4); White Blood Count 8.0 K/mm3 (4.4-11.0)
[2025-08-20 07:18] LABS: Anion Gap 10 (5-15); BUN 20 mg/dL (4-19); BUN/Creat Ratio 15.2 RATIO (10-20); Calcium,Total 8.2 mg/dL (7.6-11.0); Carbon Dioxide 23.3 mmol/L (21.0-32.0); Chloride 108 mmol/L (98-108); Cholesterol 123 mg/dL (<=200); Estimated Creatinine Clearance 43.87 ml/min (50-250); Glucose 83 mg/dL (70-99); Low Density Lipoprotein Calc. 73 mg/dL; Potassium 3.9 mmol/L (3.3-5.1); Triglycerides 73 mg/dL; Very Low Density Lipoprotein 15 mg/dL (5-40); cholesterol:hdl ratio screen 3.51
--- NOTE | 2025-08-20 08:30 | MRI_ITS ---
PROCEDURE: BRAIN WITHOUT CONTRAST 08/20/2025 REASON FOR EXAM: CVA RULE OUT TECHNIQUE: Procedure Code: MRIBR Modality: MR Procedure: BRAIN WITHOUT CONTRAST Multiplanar and multisequence images were obtained. COMPARISON: August 19, 2025 FINDINGS: Brain: No evidence of acute ischemia. A small focus of T2 shine through is seen at the corpus callosum anterior to the left anterior horn of the lateral ventricle. Extensive T2 prolongation is shown in the periventricular white matter, deep white matter and subcortical white matter. This includes the basal ganglia and thalami, lygn-nccwcrr-vhxr-right where there is a lacunar infarct in the left central thalamus. Several sites of blooming artifact are shown mainly in the basal ganglia, thalami and temporal lobes with fewer foci in the frontal and parietal lobes. This can be seen with amyloid angiopathy. Ventricles: Moderate loss of volume. Major Intracranial Vessels: Correlate with recent CT angiogram done 1 day prior. Sinuses: Minimal mucosal thickening. Mastoids: Clear MRI/Brain without Contrast IMPRESSION: 1. No acute intracranial abnormality. 2. Extensive volume loss and extensive chronic microvascular ischemic changes. Blooming artifact present, which can be associated with amyloid angiopathy. Reading Location: [id number]
--- NOTE | 2025-08-20 10:42 | NEURO.CONS ---
Assessment and Plan: Neuro Assessment/Plan This is a 60 yo woman with history of prior stroke with residual R side weakness, recent complicated admission at OSH with newly diagnosed uterine cancer complicated by blood loss anemia and Afib not started on AC, was discharged on 07/09 to home with home health, who is presenting now with reported few days of confusion. Upon interview today patient is back to her baseline per the family. Unsure of what prompted this confusion, however differential includes stroke given afib not on AC, Toxic metabolic UTI, seizures, CERTIFIED MEDICAL AIDE carcinomatosis Recommendations: MRI brain w/wo EEG Treatment of UTI per primary team I personally attended this patient and spent a total time of 55 minutes evaluating this patient including clinical assessment, review of chart, medical history imaging, and determining appropriate treatment and workup. HPI Consult Data Date of Consult: 08/20/25 HPI Narrative HPI Narrative: NANCY DELACRUZ, is a 60 F with history of prior stroke with R side deficits, Afib not on AC, HFpEF and CKD, who presented to [facility] ED on 08/19/2025 with altered mentation and decreased functional status. Patient was recently hospitalized here from 05/21-06/11 for severe acute blood loss anemia secondary to vaginal bleeding from a suspected uterine cancer. Hospital course was complicated by acute hypoxic respiratory failure suspected secondary to CHF and pneumonia requiring intubation. She was able to be extubated back to nasal cannula with diuresis and antibiotic treatment. She was then transferred to [place] on 06/11 for further evaluation for uterine cancer. Reviewed [facility] records. She was hospitalized there from 06/11-06/29. Biopsy confirmed endometrial cancer and plan was for total hysterectomy but hospital course was complicated by new onset A-fib with RVR with worsening respiratory status. They instead did a D&C with IUD placement, and plan is for total hysterectomy in the future. She was not able to be anticoagulated for A-fib due to her acute anemia and concern for precipitated bleeding from endometrial cancer. She was discharged home with home health care. Her brother has been heavily involved in her care, and he noted that she has not been acting like herself for the past few days. She has been intermittently confused and less talkative, and she has not been able to do her normal level of activity. In the ED she was noted to be in controlled A-fib, was otherwise normotensive, afebrile and stable on room air at rest. CBC with hemoglobin 10.5, slightly improved from previous at the beginning of this month. CBC and BMP were otherwise benign. CT brain and CTA head/neck with no acute findings. Chest x-ray showed mild pulmonary edema. UA with leukocyte esterase. Patient is at her baseline now per the family, she is alert oriented following simple commands. She have R arm and leg contractions at baseline, able to move her left side. She utilizes a wheelchair at home. PHYSICAL EXAM Exam performed with help of the nurse/EVE present with patient on Tele site NEURO: AAOx3, follows simple commands, dysarthria Raises all extremities antigravity, she is contracted on the R arm and leg which is baseline for her She uses a wheelchair at home [facility] Medical History Hypertension CVA (cerebral vascular accident) Home Medications Medication Instructions Recorded Last Taken Type amlodipine 10 mg tablet 10 mg PO DAILY 05/21/25 05/20/25 History carvedilol 3.125 mg tablet 3.125 mg PO BID 05/21/25 05/20/25 History hydralazine 100 mg tablet 100 mg PO TID 05/21/25 05/20/25 History simvastatin 20 mg tablet 20 mg PO DAILY 05/21/25 05/20/25 History metoprolol tartrate 25 mg tablet 25 mg PO Q8 08/19/25 Unknown History Allergy/AdvReac Type Severity Reaction Status Date / Time No Known Allergies Allergy Verified 08/19/25 13:12 Family History unable to obtain Surgical History unable to obtain Social History Smoking Status: Never smoker Vital Signs Vital Signs Vital Signs: 08/19/25 13:12 08/19/25 15:10 08/19/25 17:00 Temperature 98 F Temperature Source Temporal Pulse Rate 80 88 70 Respiratory Rate 18 16 18 Respiratory Effort Respiratory Depth Respiratory Pattern Blood Pressure 140/108 H 136/100 H 157/77 H Blood Pressure Mean 118 112 103 Blood Pressure Source Blood Pressure Position Blood Pressure Location Pulse Ox 98 98 96 Oxygen Delivery Method Room Air Room Air 08/19/25 17:34 08/19/25 18:41 08/19/25 21:40 Temperature 98.4 F 98.4 F 97.9 F Temperature Source Oral Temporal Pulse Rate 70 77 87 Respiratory Rate 14 14 22 H Respiratory Effort Respiratory Depth Respiratory Pattern Blood Pressure 166/95 H 160/95 H 151/107 H Blood Pressure Mean 118 116 121 Blood Pressure Source Monitor Monitor Blood Pressure Position Semi-Fowlers Semi-Fowlers Blood Pressure Location Left Arm Left Arm Pulse Ox 98 95 94 Oxygen Delivery Method Room Air Room Air 08/19/25 22:00 08/19/25 23:35 08/20/25 02:00 Temperature 97.8 F Temperature Source Temporal Pulse Rate 100 Respiratory Rate 18 Respiratory Effort Normal Non-Labored Respiratory Depth Normal Respiratory Pattern Normal Blood Pressure 164/109 H Blood Pressure Mean 127 Blood Pressure Source Monitor Blood Pressure Position Semi-Fowlers Blood Pressure Location Left Arm Pulse Ox 93 94 Oxygen Delivery Method Room Air Room Air Room Air 08/20/25 06:00 08/20/25 07:15 08/20/25 08:56 Temperature 97.9 F Temperature Source Temporal Pulse Rate 86 92 Respiratory Rate 20 H 18 Respiratory Effort Respiratory Depth Respiratory Pattern Blood Pressure 151/91 H 141/77 H Blood Pressure Mean 111 98 Blood Pressure Source Monitor Monitor Blood Pressure Position Semi-Fowlers Sitting Blood Pressure Location Left Arm Left Arm Pulse Ox 95 94 94 Oxygen Delivery Method Room Air Room Air Room Air 08/20/25 10:00 Temperature Temperature Source Pulse Rate Respiratory Rate Respiratory Effort Normal Respiratory Depth Normal Respiratory Pattern Normal Blood Pressure Blood Pressure Mean Blood Pressure Source Blood Pressure Position Blood Pressure Location Pulse Ox Oxygen Delivery Method Room Air Weight Weight: 72.9 kg Body Mass Index (BMI) 26.7 EEG Results Procedure Details EEG Procedure Details: NANCY DELACRUZ is a 60 year old F with a past medical history of , who presents for evaluation of Electroencephalogram on DATE at TIME Lab / Micro Data 08/20/25 05:50 08/20/25 05:50 Labs: Laboratory Results - last 24 hr 08/19/25 13:27: WBC 9.5, RBC 4.79, Hgb 10.5 L, Hct 36.0 L, MCV 75.2 L, MCH 21.9 L, MCHC 29.2 L, RDW Std Deviation 47.7 H, RDW Coeff of Federico 17.8 H, Plt Count 503 H, MPV 10.3, Immature Gran % (Auto) 0.200, Neut % (Auto) 75.3 H, Lymph % (Auto) 13.5 L, [place] % (Auto) 9.0, Eos % (Auto) 1.2, Baso % (Auto) 0.8, Absolute Neuts (auto) 7.1, Absolute Lymphs (auto) 1.28, Nucleated RBC % 0, Sodium 140, Potassium 4.8, Chloride 105, Carbon Dioxide 23.8, Anion Gap 11, BUN 22 H, Creatinine 1.47 H, Estim Creat Clear Calc 40.04 L, Est GFR (MDRD) Non-Af 40 L, BUN/Creatinine Ratio 15.1, Glucose 101 H, Hemoglobin A1c 5.6, Calcium 8.7, Magnesium 2.2, Total Bilirubin 0.56, AST 29, ALT 8, Alkaline Phosphatase 91, Troponin T High Sens 47 H D, Total Protein 7.5, Albumin 2.4 L, Globulin 5.0 H, Albumin/Globulin Ratio 0.5 L 08/19/25 14:10: Lactic Acid 1.2 08/19/25 14:22: Urine Color Yellow, Urine Clarity Sl. Cloudy, Urine pH 6.0, Ur Specific [place] 1.020, Urine Protein 500 H, Urine Glucose (UA) Normal, Urine Ketones Negative, Urine Occult Blood 150 H, Urine Nitrite Negative, Urine Bilirubin Negative, Urine Urobilinogen 1 H, Ur Leukocyte Esterase 25 H, Urine RBC 5-10 SEEN, Urine WBC 5-10 SEEN, Ur Squamous Epith Cells 0 SEEN, Amorphous Sediment 2+ URATE, Urine Bacteria 0 SEEN, Hyaline Casts 5-10 SEEN, Urine Mucus 0 SEEN 08/19/25 15:55: Troponin T Hi Sens 2 Hr 46 H, Procalcitonin 0.09 08/20/25 05:50: WBC 8.0, RBC 4.42, Hgb 10.0 L, Hct 33.1 L, MCV 74.9 L, MCH 22.6 L, MCHC 30.2 L, RDW Std Deviation 48.2 H, RDW Coeff of Federico 17.8 H, Plt Count 421, MPV 9.8, Sodium 142, Potassium 3.9, Chloride 108, Carbon Dioxide 23.3, Anion Gap 10, BUN 20 H, Creatinine 1.33 H, Estim Creat Clear Calc 43.87 L, Est GFR (MDRD) Non-Af 45 L, BUN/Creatinine Ratio 15.2, Glucose 83, Calcium 8.2, Triglycerides 73, Cholesterol 123, LDL Cholesterol, Calc 73, VLDL Cholesterol 15, HDL Cholesterol 35 L, Cholesterol/HDL Ratio 3.51 Micro: Microbiology 08/19/25 14:10 Mucosa - Nose SARS-CoV-2, Influenza & RSV (PCR) - Final Imaging Radiology Impression Brain CT 08/19/25 13:59 IMPRESSION: No acute intracranial abnormalities. Reading [facility] Head/Neck CTA 08/19/25 14:01 IMPRESSION: No hemodynamically significant stenosis in the head and neck. 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 The right anterior cerebral artery is unremarkable. Reading [facility] Chest X-Ray 08/19/25 15:15 IMPRESSION: Right hilar opacity and left lower lobe opacities may reflect pneumonia or pulmonary edema. Reading Location: [facility] Brain MRI 08/20/25 08:30 IMPRESSION: 1. No acute intracranial abnormality. 2. Extensive volume loss and extensive chronic microvascular ischemic changes. Blooming artifact present, which can be associated with amyloid angiopathy. Reading Location: [facility] Active Medications Active Medications Active Medications: Current Medications Generic Name Dose Route Start Last Admin Trade Name Freq PRN Reason Stop Dose Admin Acetaminophen 650 mg 08/19/25 18:34 Acetaminophen 325 Mg Tablet PO Q6H PRN PRN Pain 1-10 Or Fever>100.7 Atorvastatin Calcium 10 mg 08/20/25 10:00 Atorvastatin Calcium 10 Mg Tablet PO DAILY JOSÉ MIGUEL Hydralazine HCl 5 mg 08/19/25 18:34 Hydralazine 20 Mg/Ml Vial IV 08/20/25 18:34 Q30M PRN maintain BP parameters with HR <60 Sodium Chloride 250 mls @ 15 mls/hr 08/19/25 19:02 IV .[id number] PRN Saline Flush Sodium Chloride 250 mls @ 15 mls/hr 08/19/25 19:02 IV .[id number] PRN Additional IVPB Infusion Labetalol HCl 10 - 20 mg 08/19/25 18:34 Labetalol 20 Mg/4 Ml Vial IV 08/20/25 18:34 Q10M PRN PRN maintain BP parameters with HR >/=60 Melatonin 3 mg 08/19/25 18:34 Melatonin 3 Mg Tablet PO QHS PRN PRN INSOMNIA Ondansetron HCl 4 mg 08/19/25 18:34 Ondansetron 4 Mg/2 Ml Vial IV Q8H PRN PRN NAUSEA/VOMITING Sodium Chloride 10 - 40 ml 08/19/25 19:02 0.9% Saline Lock 10 Ml Syringe IV UD PRN SALINE FLUSH NIHSS NIHSS Nursing Documentation NIHSS Nursing Documentation: NIHSS: Ischemic Stroke/TIA Start: 08/19/25 19:41 Text: For PCU Patients: NIH and Neuro Check every 4 Status: Active hours, PRN and with change in RN caregiver. Freq: [id number] Protocol: Activity Type Activity Date Activity User E-sign Co-sign Detail Recorded Client Recorded Date Recorded By Document 08/20/25 08:56 NB [id number] 08/20/25 08:57 NB 08/20/25 08:56 NIH Stroke Scale [NIHSS] A score of 0 is "normal" or asymptomatic . Total possible score is 42. Inpatient: RN or Physician to activate a stroke alert for onset of new stroke symptoms or with NIHSS increase >/= 3 points. Following change in neurological status, NIHSS will be performed per physician order or more frequently PRN. -1a. Level of Consciousness 0 - Alert; keenly responsive -1b. LOC Questions 0 - Answers BOTH questions correctly -1c. LOC Commands 0 - Performs BOTH tasks correctly -2. Best Gaze 1 - Partial gaze palsy; -3. Visual 0 - No visual loss -4. Facial Palsy 1 - Minor paralysis ( flattened nasolabial fold , asymmetry on smiling) -5a. Left Arm 0 - No drift; arm holds 90 ( or 45) degrees for full 10 seconds -5b. Right Arm 0 - No drift; arm holds 90 ( or 45) degrees for full 10 seconds -6a. Left Leg 2 - Some effort against gravity; -6b. Right Leg 2 - Some effort against gravity; -7. Limb Ataxia 1 - Present in 1 limb -8. Sensory 0 - Normal; no sensory loss -9. Best Language 1 - Mild-to- moderate aphasia; -10. Dysarthria 1 = Mild-to- moderate dysarthria; -11. Extinction and Inattention 0 - No abnormality -Total 9 Query Text:A score of 0 is "normal" or asymptomatic. Total possible score is 42 . ED: Notify Physician for NIHSS increase by > / = 3 points. Inpatient: RN or Physician to activate a stroke alert for NIHSS increase of > / = 3 points. Coma Scale [Assess] -Eye Opening Spontaneous -Motor Obeys Commands -Verbal Oriented [Total] -Coma Scale Total 15
--- NOTE | 2025-08-20 11:43 | ST.MBS ---
Modified Barium Swallow Patient Information Study Date: 08/20/25 Study Time: 10:00 Direct Billable Minutes: 100 Total Minutes procedure & reportin Diagnosis: Dysphagia R13.10 Referring Physician: Yanet Zhou Reason for Referral: Assess swallow function, assess risk for aspiration, and determine recommendations for least restrictive diet textures and compensatory strategies to improve swallowing safety. Medical History: Per hospitalist H&P, “Medical history significant for CVA with right sided deficits, A-fib not on anticoagulation, HFpEF, and CKD stage IIIb. Patient was recently hospitalized here from 05/21-06/11 for severe acute blood loss anemia secondary to vaginal bleeding from a suspected uterine cancer. Hospital course was complicated by acute hypoxic respiratory failure suspected secondary to CHF and pneumonia requiring intubation. She was able to be extubated back to nasal cannula with diuresis and antibiotic treatment. She was then transferred to [place] on 06/11 for further evaluation for uterine cancer. Reviewed [facility] records. She was hospitalized there from 06/11-06/29. Biopsy confirmed endometrial cancer and plan was for total hysterectomy but hospital course was complicated by new onset A-fib with RVR with worsening respiratory status. They instead did a D&C with IUD placement, and plan is for total hysterectomy in the future. She was not able to be anticoagulated for A-fib due to her acute anemia and concern for precipitated bleeding from endometrial cancer. She was discharged home with home health care.” Patient now re-presents to [facility] for AMS, less talkative, and decreased functional status. 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 The right anterior cerebral artery is unremarkable. Chest Xray 08/19/2025 Right hilar opacity and left lower lobe opacities may reflect pneumonia or pulmonary edema. Brain MRI 08/20/2025 No acute intracranial abnormality; Extensive volume loss and extensive chronic microvascular ischemic changes; Blooming artifact present, which can be associated with amyloid angiopathy. Pt admitted for stroke rule out and ST consulted. ST additional consulted due to hx of dysphagia. FLORAL ARRANGER deferred BSE and recommended MBSS prior to diet advancement to further assess swallow function and aspiration risk given recent MBSS revealing moderate-severe oropharyngeal dysphagia. See details below. Recent MBSS completed 05/29/2025 after intubation during a hospitalization to manage hypertension, acute hypoxic respiratory failure, and acute on chronic HFpEF. MBSS revealed moderate-severe oropharyngeal dysphagia w/ silent aspiration of thin liquids via tsp, overt aspiration of mildly and moderately thick liquids via tsp w/ multiple reflexive coughs/throat clears and re-swallows w/ complete ejection, and overt aspiration of thin liquids via tsp w/ R head turn w/ weak/ineffective cough response. The patient was recommended for Minced and Moist Textures / Mildly Thick Liquids w/ the following Compensatory Strategies: Small Bites, Liquid by Teaspoon Only, Slow Rate, Chin Tuck (WITH ALL SIPS), Alternate bites/solids and sips/liquids, Sitting upright and Remain sitting upright for 30 minutes after PO intake w/ Direct supervision and feeding assistance needed. Current Diet Ordered: NPO Dentition: Natural Teeth and Missing Teeth Mental Status: Impaired (AMS) Respiratory Status: Oxygenating on Room Air Penetration-Aspiration Scale Penetration-Aspiration Scale: OBJECTIVE ASSESSMENT OF SWALLOW FUNCTION (QUANTITATIVE – PER TRIAL): PENETRATION / ASPIRATION SCALE (FRANK): 1 = does not enter airway 2 = enters airway/above vocal folds/ejected 3 = enters airway/above vocal folds/not ejected 4 = enters airway/contacts vocal folds/ejected 5 = enters airway/contacts vocal folds/not ejected 6 = enters airway/below vocal folds/ejected 7 = enters airway/below vocal folds/not ejected despite effort 8 = enters airway/below vocal folds/no effort VIDEOFLOROSCOPIC SCALE SCORE (FRANK): Grade I = aspiration of material that has penetrated into the laryngeal vestibule, intact cough reflex Grade II = aspiration < 10 % of the bolus, intact cough reflex Grade III = aspiration of < 10 % of the bolus, reduced cough reflex or aspiration of > 10 % of the bolus, intact cough reflex Grade IV = aspiration of > 10 % of the bolus, reduced cough reflex Penetration-Aspiration Scale Score [place] Thick Liquid via teaspoon Chin tuck: Result: 8= enters airway/below vocal folds/no effort Pudding via teaspoon: Result: 1= does not enter airway Honey Thick Liquid via teaspoon: Result: 1= does not enter airway [place] Thick Liquid via teaspoon: Result: 2= enter airway/above vocal folds/ejected Thin Liquid via teaspoon: Result: 5= enters airways/contacts vocal folds/not ejected [place] Thick Liquid via teaspoon Trial 2: Result: 2= enter airway/above vocal folds/ejected Comment: Cued cough 2X, which was barely audible; however, somewhat effective in expelling aspirated contrast from the airway. [place] Thick Liquid via teaspoon Trial 3: Result: 5= enters airways/contacts vocal folds/not ejected Honey Thick Liquid via teaspoon Trial 2: Result: 1= does not enter airway Pudding via teaspoon Trial 2: Result: 1= does not enter airway Honey Thick Liquid via teaspoon Trial 3: Result: 1= does not enter airway Comment: Esophageal screen - Moderate retention of barium in the lower esophagus. Honey Thick Liquid via small single sip: cup: Result: 2= enter airway/above vocal folds/ejected Comment: Esophageal screen - Complete clearance. Honey Thick Liquid via small single sip: cup Trial 2: Result: 2= enter airway/above vocal folds/ejected Oral Phase Labial Seal: Interlabial escape, no progression to anterior lip Tongue Control During Bolus Hold: Posterior escape of greater than half of bolus Bolus Transport/Lingual Motion: Repetitive/disorganized tongue motion Pharyngeal Phase Initiation of Pharyngeal Swallow: Bolus head in pyriforms Soft Palate Elevation: No bolus between soft palate and pharyngeal wall Laryngeal Elevation: Partial superior movement thyroid cart/partial apprx aryt-epig petiole Anterior Hyoid Excursion: Partial anterior movement Epiglottic Movement: Partial inversion Laryngeal Vestibule Closure at Height of Swallow: Incomplete; narrow column of air/contrast in laryngeal vestibule Pharyngeal Stripping Wave: Present - complete Pharyngoesophageal Segment Opening: Complete distension and complete duration; no obstruction of flow Tongue Base Retraction: Narrow column of contrast between tongue base & post. pharyngeal wall Pharyngeal Residue: Collection of residue within or on pharyngeal structures Esophageal Phase Esophageal Clearance: Esophageal retention Diagnosis/Impression Diagnosis: Moderate-severe oropharyngeal dysphagia R13.12 MBS Impressions: The oral phase is marked by... -Decreased bolus control w/ posterior loss of >1/2 of liquid trials to the pyriform sinuses prior to swallow onset. -Slowed, lingual pumping for A-P transport. -Did not assess mastication of regular textured cookie during this MBSS due to prior mastication deficits and decreased bolus control. Will plan for trials of soft solids w/ FLORAL ARRANGER at bedside during future sessions. The pharyngeal phase is marked by... -Decreased pharyngeal motility due to mildly decreased TB retraction and pharyngeal stripping wave. Mild pharyngeal residue of liquids. -Decreased airway closure due to decreased laryngeal elevation, partial epiglottic inversion, and decreased anterior hyoid excursion. SILENT aspiration of nectar/mildly thick liquids via tsp w/ chin tuck. Deep laryngeal penetration of thin and mildly/nectar thick liquids by tsp. The esophageal phase is marked by... -Moderate retention of barium in the middle and lower esophagus after honey thick liquids by tsp (preceded by pudding). Honey thick liquids by cup were then given w/ complete clearance through the LES. Recommendations Diet: Puree Textures and Moderately Thick Liquids Comment: Meds crushed in puree Oral care after meals Compensatory Strategies: Small Bites, Small Sips, Slow Rate, Alternate bites/solids and sips/liquids, Sitting upright and Remain sitting upright for 30 minutes after PO intake Supervision: Total Feed Recommend Repeat Modified Barium Swallow: Yes (In 2-4 weeks after participation in oropharyngeal strengthening exercise program) Need for Skilled Speech Therapy Services: Yes Comment: -Train the patient and staff in recommended precautions to decrease risk for aspiration. -Ongoing assessment of diet tolerance. Trials of soft solids (IDDSI Level 5 and/or 6) to consider further diet advancement in upcoming sessions. -Train in oropharyngeal exercise program (lingual resistance and coordination, effortful swallows, CTAR, Belkis). Education Completed: 1. Described result of evaluation., 2. Pt understands evaluation & agrees with goals and treatment plan. and 7. Pt requires further education on strategies & risks. Status Active ST Patient: Active Contact Information [facility] Speech Therapy:: Lulu Villarreal M.A. [facility]OR[facility] Speech-Language Pathologist [facility] [address] [address] [email or web address] [phone]
--- NOTE | 2025-08-20 11:52 | CASEMGMT ---
Social Work Per imaging pt negative for stroke, therefore PHQ9 not completed. CADE Pretty
--- NOTE | 2025-08-20 13:28 | PCM.PROGNOTE ---
Subjective Subjective Patient seen and examined with her nurse by her bedside. She had no active complaints. SHe is more alert and communicative. Review of systems is otherwise negative. MRI did show evidence of multiple strokes, likely embolic. SHe has afib, but not on anticoagulation due to vaginal bleeding. Objective Data Objective Data Vital Signs: Vital Signs Temp Pulse Resp BP Pulse Ox O2 Del Method 97.9 F 103 H 18 141/77 H 94 Room Air 08/20/25 08:56 08/20/25 12:19 08/20/25 08:56 08/20/25 08:56 08/20/25 08:56 08/20/25 10:00 Oxygen Delivery Method Room Air Weight: 160 lb 11.472 oz Body Mass Index (BMI) 26.7 Intake & Output: Intake and Output for Last 24 Hours 08/18/25 08/19/25 08/20/25 23:59 23:59 23:59 Intake Total 1300 / 1300 Output Total 100 / 100 Balance 1300 / 1300 -100 / -100 Lab / Micro Data 08/20/25 05:50 08/20/25 05:50 Labs: Laboratory Results - last 24 hr 08/19/25 13:27: WBC 9.5, RBC 4.79, Hgb 10.5 L, Hct 36.0 L, MCV 75.2 L, MCH 21.9 L, MCHC 29.2 L, RDW Std Deviation 47.7 H, RDW Coeff of Federico 17.8 H, Plt Count 503 H, MPV 10.3, Immature Gran % (Auto) 0.200, Neut % (Auto) 75.3 H, Lymph % (Auto) 13.5 L, [place] % (Auto) 9.0, Eos % (Auto) 1.2, Baso % (Auto) 0.8, Absolute Neuts (auto) 7.1, Absolute Lymphs (auto) 1.28, Nucleated RBC % 0, Sodium 140, Potassium 4.8, Chloride 105, Carbon Dioxide 23.8, Anion Gap 11, BUN 22 H, Creatinine 1.47 H, Estim Creat Clear Calc 40.04 L, Est GFR (MDRD) Non-Af 40 L, BUN/Creatinine Ratio 15.1, Glucose 101 H, Hemoglobin A1c 5.6, Calcium 8.7, Magnesium 2.2, Total Bilirubin 0.56, AST 29, ALT 8, Alkaline Phosphatase 91, Troponin T High Sens 47 H D, Total Protein 7.5, Albumin 2.4 L, Globulin 5.0 H, Albumin/Globulin Ratio 0.5 L 08/19/25 14:10: Lactic Acid 1.2 08/19/25 14:22: Urine Color Yellow, Urine Clarity Sl. Cloudy, Urine pH 6.0, Ur Specific [place] 1.020, Urine Protein 500 H, Urine Glucose (UA) Normal, Urine Ketones Negative, Urine Occult Blood 150 H, Urine Nitrite Negative, Urine Bilirubin Negative, Urine Urobilinogen 1 H, Ur Leukocyte Esterase 25 H, Urine RBC 5-10 SEEN, Urine WBC 5-10 SEEN, Ur Squamous Epith Cells 0 SEEN, Amorphous Sediment 2+ URATE, Urine Bacteria 0 SEEN, Hyaline Casts 5-10 SEEN, Urine Mucus 0 SEEN 08/19/25 15:55: Troponin T Hi Sens 2 Hr 46 H, Procalcitonin 0.09 08/20/25 05:50: WBC 8.0, RBC 4.42, Hgb 10.0 L, Hct 33.1 L, MCV 74.9 L, MCH 22.6 L, MCHC 30.2 L, RDW Std Deviation 48.2 H, RDW Coeff of Federico 17.8 H, Plt Count 421, MPV 9.8, Sodium 142, Potassium 3.9, Chloride 108, Carbon Dioxide 23.3, Anion Gap 10, BUN 20 H, Creatinine 1.33 H, Estim Creat Clear Calc 43.87 L, Est GFR (MDRD) Non-Af 45 L, BUN/Creatinine Ratio 15.2, Glucose 83, Calcium 8.2, Triglycerides 73, Cholesterol 123, LDL Cholesterol, Calc 73, VLDL Cholesterol 15, HDL Cholesterol 35 L, Cholesterol/HDL Ratio 3.51 Micro: Microbiology 08/19/25 14:10 Mucosa - Nose SARS-CoV-2, Influenza & RSV (PCR) - Final Radiography Diagnostic Testing: Radiology Impression Brain CT 08/19/25 13:59 IMPRESSION: No acute intracranial abnormalities. Reading Location: [facility] Head/Neck CTA 08/19/25 14:01 IMPRESSION: No hemodynamically significant stenosis in the head and neck. 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 The right anterior cerebral artery is unremarkable. Reading Location: [facility] Chest X-Ray 08/19/25 15:15 IMPRESSION: Right hilar opacity and left lower lobe opacities may reflect pneumonia or pulmonary edema. Reading Location: [facility] Brain MRI 08/20/25 08:30 IMPRESSION: 1. No acute intracranial abnormality. 2. Extensive volume loss and extensive chronic microvascular ischemic changes. Blooming artifact present, which can be associated with amyloid angiopathy. Reading Location: [facility] Physical Exam Const alert and no apparent distress General Appearance: cooperative HEENT normocephalic, head/scalp atraumatic, moist oral mucous membranes and oropharynx normal Eyes EOMs intact bilaterally Neck supple Lymph Lymphatic: no lymphedema noted Resp Resp Narrative: mildly diminished breath sounds bibasally, no wheezes or crackles. On room air. Cardio regular rhythm, S1 normal heart sound and S2 normal heart sound Cardio Narrative: tachycardia GI normal to inspection, nondistended, normoactive bowel sounds, soft to palpation and non-tender Extremity normal capillary refill, no clubbing, cyanosis or edema and no calf tenderness General Extremity: no tenderness to palpation of joints or extremities Skin General Skin Exam: no breakdown Neuro no focal motor deficits and no sensory deficits noted Motor Exam: general weakness Psych cooperative Mood & Affect: flat affect Assessment & Plan Assessment/Plan (1) Altered mental status: (2) Nonsustained ventricular tachycardia: PLAN: Plan #Acute encephalopathy due to acute CVA Patient admitted with a complaint of confusion, altered mental status and decreased functional status. She had a history of CVA with right-sided deficits. Has a history of A-fib but is currently not anticoagulated. CT of the brain showed no acute intracranial pathology and CT of the head and neck showed no hemodynamically significant stenosis. MRI of the brain done in. Neurology shows evidence of acute strokes in the right thalamic, left corpus callosum, left shukla radiata region On high intensity statin and aspirin 81 mg daily. PT OT on board. Speech therapy was consulted. #Paroxysmal A-fib: Not anticoagulated on account of endometrial cancer with vaginal bleeding at time of admission. #Recently diagnosed endometrial cancer Had a vaginal bleeding during her most recent admission and pelvic ultrasound done showed abnormal endometrial thickening. Biopsy done at tertiary facility confirmed endometrial cancer and CEA antigen was also elevated. Had D&C with IUD insertion done at outside hospital with plans for hysterectomy in the future. Did require blood transfusion due to acute blood loss anemia during previous admission. Will monitor closely. #Heart failure preserved ejection fraction: Not in exacerbation. On Lasix #CKD stage IIIb: Creatinine at baseline. Will monitor. #Dysphagia: Speech therapy consulted. Await speech therapy evaluation DVT prophylaxis; SCDs COde status: full code Charges/Coding Visit Charges Inpatient E&M: 93614 Subs Hosp L2
[2025-08-21 00:52] VITALS: BMI 26.7
[2025-08-21 02:00] VITALS: BP 163/89; PULSE 87; RESP 24; TEMP 36.6; O2SAT 92
[2025-08-21 03:34] VITALS: BMI 26.7
[2025-08-21 05:38] VITALS: PULSE 81
[2025-08-21] MEDS: 0.9% Saline Lock 10 ML Syringe IV (05:41)
[2025-08-21 06:00] VITALS: BP 154/98; PULSE 81; RESP 26; TEMP 36.6; O2SAT 98
[2025-08-21 06:08] LABS: Hematocrit 35.8 % (37-47); Hemoglobin 10.4 g/dL (12.0-15.0); Immature Granulocytes Count 0.030 X10^3/uL (0.0-0.0); Mean Corp Hgb Conc 29.1 g/dL (32-36); Mean Corpuscular Volume 75.7 fL (81-99); Mean Platelet Vol. 9.9 fl (6.2-12.0); NRBC Flagged by Analyzer 0 % (0-5); Platelet Count 462 K/mm3 (150-450); RBC Distribution Width CV 17.9 % (11.6-14.6); RBC Distribution Width SD 48.6 fl (35.1-43.9); Red Blood Count 4.73 M/mm3 (4.2-5.4); White Blood Count 9.0 K/mm3 (4.4-11.0)
[2025-08-21 06:36] LABS: Anion Gap 12 (5-15); BUN 23 mg/dL (4-19); BUN/Creat Ratio 15.2 RATIO (10-20); Calcium,Total 8.2 mg/dL (7.6-11.0); Carbon Dioxide 23.1 mmol/L (21.0-32.0); Chloride 110 mmol/L (98-108); Estimated Creatinine Clearance 39.16 ml/min (50-250); Glucose 99 mg/dL (70-99); Potassium 3.9 mmol/L (3.3-5.1)
[2025-08-21 09:41] VITALS: BP 166/107; PULSE 66; RESP 18; TEMP 36.5; O2SAT 94
[2025-08-21 09:43] VITALS: PULSE 66
--- NOTE | 2025-08-21 12:30 | PN_ITS ---
Subjective Subjective Patient seen and examined with her nurse by her bedside. She had no active complaints. Per her nurse, patient noted to be having more problems with swallowing today. Speech therapy on board. Objective Data Objective Data Vital Signs: Vital Signs Temp Pulse Resp BP Pulse Ox O2 Del Method O2 Flow Rate 97.7 F L 66 18 166/107 H 94 Room Air 2 08/21/25 09:41 08/21/25 09:43 08/21/25 09:41 08/21/25 09:41 08/21/25 09:41 08/21/25 09:41 08/21/25 06:00 Oxygen Flow Rate (L/min) 2 Oxygen Delivery Method Room Air Weight: 160 lb 11.472 oz Body Mass Index (BMI) 26.7 Intake & Output: Intake and Output for Last 24 Hours 08/19/25 08/20/25 08/21/25 23:59 23:59 23:59 Intake Total 1300 / 1300 220 / 220 Output Total 100 / 300 350 / 350 Balance 1300 / 1300 120 / -80 -325 / -325 Lab / Micro Data 08/21/25 05:41 08/21/25 05:41 Labs: Laboratory Results - last 24 hr 08/21/25 05:41: WBC 9.0, RBC 4.73, Hgb 10.4 L, Hct 35.8 L, MCV 75.7 L, MCH 22.0 L, MCHC 29.1 L, RDW Std Deviation 48.6 H, RDW Coeff of Federico 17.9 H, Plt Count 462 H, MPV 9.9, Immature Gran % (Auto) 0.300, Neut % (Auto) 75.7 H, Lymph % (Auto) 12.7 L, [place] % (Auto) 8.0, Eos % (Auto) 2.1, Baso % (Auto) 1.2 H, Absolute Neuts (auto) 6.8, Absolute Lymphs (auto) 1.15, Nucleated RBC % 0, Sodium 145, Potassium 3.9, Chloride 110 H, Carbon Dioxide 23.1, Anion Gap 12, BUN 23 H, C reatinine 1.49 H, Estim Creat Clear Calc 39.16 L, Est GFR (MDRD) Non-Af 39 L, BUN/Creatinine Ratio 15.2, Glucose 99, Calcium 8.2 Micro: Microbiology 08/19/25 14:22 Urine Catheter - Catheter Urine Culture - Preliminary Culture exhibits no growth. 08/19/25 14:10 Mucosa - Nose SARS-CoV-2, Influenza & RSV (PCR) - Final Physical Exam Const alert, no apparent distress and average body habitus General Appearance: cooperative and comfortable Orientation / Consciousness: confused HEENT normocephalic, head/scalp atraumatic, hearing grossly normal bilaterally and moist oral mucous membranes Eyes EOMs intact bilaterally and conjunctivae normal Neck full ROM Lymph Lymphatic: no lymphedema noted Chest inspection of chest normal Resp Resp Narrative: mildly diminished breath sounds bibasally, no wheezes or crackles. On room air. Cardio regular rhythm, S1 normal heart sound, S2 normal heart sound, no murmurs and peripheral pulses 2+ throughout Cardio Narrative: tachycardia GI normal to inspection, nondistended, normoactive bowel sounds, soft to palpation, non-tender and non-distended Back/Spine normal ROM Extremity Extremity Narrative: Right arm and leg chronic contractures noted. General Extremity: no tenderness to palpation of joints or extremities Skin General Skin Exam: no breakdown Neuro Neuro Narrative: Chronic right arm and leg contractures noted. No significant left-sided weakness noted. Motor Exam: general weakness Psych cooperative Mood & Affect: flat affect Assessment & Plan Assessment/Plan (1) Altered mental status: (2) Nonsustained ventricular tachycardia: PLAN: Plan #Acute encephalopathy due to acute CVA * Patient admitted with a complaint of confusion, altered mental status and decreased functional status. She had a history of CVA with right-sided deficits. * Has a history of A-fib but is currently not anticoagulated. * CT of the brain showed no acute intracranial pathology and CT of the head and neck showed no hemodynamically significant stenosis. * MRI of the brain done in. Neurology shows evidence of acute strokes in the right thalamic, left corpus callosum, left shukla radiata region * On high intensity statin and aspirin 81 mg daily. PT OT on board. Speech therapy on board. Still having dysphagia so awaiting further speech therapy recommendations. * #Paroxysmal A-fib: Not anticoagulated on account of endometrial cancer with vaginal bleeding at time of admission. #Recently diagnosed endometrial cancer * Had a vaginal bleeding during her most recent admission and pelvic ultrasound done showed abnormal endometrial thickening. Biopsy done at tertiary facility confirmed endometrial cancer and CEA antigen was also elevated. * Had D&C with IUD insertion done at outside hospital with plans for hysterectomy in the future. * Did require blood transfusion due to acute blood loss anemia during previous admission. Will monitor closely. #Heart failure preserved ejection fraction: Not in exacerbation. On Lasix #CKD stage IIIb: Creatinine at baseline. Will monitor. #Dysphagia: Speech therapy on board. Dysphagia worsened today, so will await further speech therapy evaluations. Await speech therapy evaluation DVT prophylaxis; SCDs COde status: full code Charges/Coding Visit Charges Inpatient E&M: 89354 Subs Hosp L2
--- NOTE | 2025-08-21 13:00 | CASEMGMT ---
Social Work Face to Face with pt for initial transition planning/care coordination assessment. SW introduced self and role at [facility]. Patient is A&O x3. Patient answered some of the questions and SW called the mother to answer the rest. Admitting Dx: altered mentation w/strokelike symptoms Primary Care Doctor: Dr. Duran Speciality doctors: none Insurance: [facility] Pharmacy: Patient utilizes [facility] in [place]. LNOK: Mom Johana, brothers Wayne and Gerry Living Situation: Patient lives at home with her mother and 2 brothers. ADL's/Prior level of functioning: The family assist with the ADL's. Transportation: The family transports the patient to [facility]. DME: WC, SC, BSC, lift chair skilled nursing/home health history: TCU, RU and HHC services prior Assessment: Patient lives at home with her mother and 2 brothers. The family assist with the ADL's. PLAN: The mother reported the plan is for the patient to DC home. The mother reported they do not want services. The mother reported the brother Wayne is picking up the patient today for DC after he gets off work at 300pm. CADE Pretty
[2025-08-21 14:00] VITALS: BP 147/94; PULSE 84; RESP 19; TEMP 36.1; O2SAT 96
--- NOTE | 2025-08-21 15:42 | CASEMGMT ---
Social Work SW called the brother Wayne and he reported he does not want at OR for the patient. CADE Pretty
--- NOTE | 2025-08-21 15:44 | DCINST_ITS ---
Discharge Instructions DC O2, CPAP, BIPAP needs Home O2 Discharge instructions: No Dressing / Incision Discharge Activity: Return to Normal Activity Weight Bearing Status: Weight bearing as tolerated Dressing / Incision Call your doctor if you observe: Fever of 101 or Higher, Shortness of breath, Dizziness, Swelling in the ankles, Chest pain and Increased palpitations (irregular heartbeat) Follow Up Care Test Results: Test results from this visit will be discussed in further detail at your follow- up appointment, if applicable. Discharge Plan Admission Admit Date/Time: 08/20/25 17:32 Primary Reason for Your Visit: acute CVA Attending Provider: Yanet Zhou Primary Care Provider: Ann Marie Duran Consulting Providers: Luis Burrell; Samia Christian; Manda Lopez; Suyapa Balderas; Lety Connell; Musa Perez; Karol Armas; Fransisco Fernandes; Liban Larson; Romaine Medeiros; Vianey Rivas; Niru Lang; Rdorigo Araujo; Amy Roberts; Grayson Mcgarry; Diane Blood; King Silva; Amrit Fair; Fermin aCrrillo; Ly Rios; Doreen Patel; Umang Luis Instructions Patient Instructions: AFib Preventing Stroke Discharge Orders/Prescriptions Prescriptions: New aspirin 81 mg Tablet,Chewable 81 mg PO BREAKFAST Qty: 30 2RF atorvastatin [Lipitor] 40 mg tablet 40 mg PO DAILY Qty: 30 2RF Continued amlodipine 10 mg tablet 10 mg PO DAILY hydralazine 100 mg tablet 100 mg PO TID metoprolol tartrate 25 mg tablet 25 mg PO Q8 Discontinued carvedilol 3.125 mg tablet 3.125 mg PO BID simvastatin 20 mg tablet 20 mg PO DAILY Referrals / Follow Up: Ann Marie Duran DO [Primary Care Provider, Family Practice] - Within 1 Week Adam Traylor MD [Non-Staff -Ordering Privileges, Neurology] - Within 2 Weeks Disposition Disposition (needs filled in before D/C Order can be placed): Home, Self Care
--- NOTE | 2025-08-21 15:45 | DS.PCM_ITS ---
Providers Date of Admission: 08/20/25 Date of Discharge: 08/21/25 Primary Care Physician: Dr. Ann Marie Duran, DO Consultations 08/19/25 18:34 Consult: Tele-Neurology Routine Consulting Provider: [facility] Reason for Consult: Acute Ischemic Stroke/TIA EMERGENT Consult: No MD Notified: Yes Date Notified: 08/19/25 Time Notified: 18:07 Method of Notification: [facility] Service Nursing Unit Staff Notify [facility] of Tele-Neurology Consult: Yes Reason For Visit: ALTERED MENTATION W/ STROKELIKE SYMPTOMS Diagnosis Discharge Diagnosis (1) Altered mental status: Status: Acute Code(s): R41.82 - Altered mental status, unspecified (2) Nonsustained ventricular tachycardia: Status: Acute Code(s): I47.29 - Other ventricular tachycardia Plan #Acute encephalopathy due to acute CVA * Patient admitted with a complaint of confusion, altered mental status and decreased functional status. She had a history of CVA with right-sided deficits. * Has a history of A-fib but is currently not anticoagulated. * CT of the brain showed no acute intracranial pathology and CT of the head and neck showed no hemodynamically significant stenosis. * MRI of the brain done in. Neurology shows evidence of acute strokes in the right thalamic, left corpus callosum, left shukla radiata region * On high intensity statin and aspirin 81 mg daily. PT OT on board. Speech therapy on board. Still having dysphagia so awaiting further speech therapy recommendations. * #Paroxysmal A-fib: Not anticoagulated on account of endometrial cancer with vaginal bleeding at time of admission. #Recently diagnosed endometrial cancer * Had a vaginal bleeding during her most recent admission and pelvic ultrasound done showed abnormal endometrial thickening. Biopsy done at tertiary facility confirmed endometrial cancer and CEA antigen was also elevated. * Had D&C with IUD insertion done at outside hospital with plans for hysterectomy in the future. * Did require blood transfusion due to acute blood loss anemia during previous admission. Will monitor closely. #Heart failure preserved ejection fraction: Not in exacerbation. On Lasix #CKD stage IIIb: Creatinine at baseline. Will monitor. #Dysphagia: Speech therapy on board. Dysphagia worsened today, so will await further speech therapy evaluations. Await speech therapy evaluation DVT prophylaxis; SCDs COde status: full code Medications at Discharge Home Medications amlodipine 10 mg tablet 10 mg PO DAILY blood pressure 08/25/25 hydralazine 100 mg tablet 100 mg PO TID blood pressure 05/21/25 metoprolol tartrate 25 mg tablet 25 mg PO Q8 blood pressure 08/19/25 aspirin 81 mg chewable tablet 81 mg PO BREAKFAST #30 tabs 08/21/25 atorvastatin 40 mg tablet (Lipitor) 40 mg PO DAILY #30 tabs 08/21/25 Hospital Course Operations None Procedures None Summary of Care Provided Minutes Spent on Discharge: 45 Hospital Course: Patient is a 60-year-old female with a past medical history as outlined was admitted to the ED on 08/19/2025 with complaint of altered mental status and decreased functional status. She had a history of CVA with right-sided deficits and A-fib for which she was not anticoagulated due to history of severe blood loss anemia due to vaginal bleeding from a suspected uterine cancer. She had recently been admitted from June 11 to June 29, 2025 on account of acute on chronic hypoxic respiratory failure due to CHF and pneumonia for which she required intubation. She had vaginal bleeding during that admission and pelvic ultrasound done showed thickened endometrium. Biopsy confirmed endometrial cancer and plan was for total hysterectomy but hospital course was complicated by new onset A-fib. She did have a D&C with IUD placement and plan is for total hysterectomy. Patient was noted to be confused and weak at home so she was brought into the ED with CT of the brain and CT of the head and neck were unremarkable. Chest x-ray showed mild pulmonary edema. She was admitted for acute encephalopathy to rule out a stroke. Neurology was consulted. She had MRI of the brain which did not show evidence of acute stroke stroke per the read, though neurologist informed me that per his read, he saw evidence of stroke in the right thalamic, left corpus callosum and left shukla radiata region. She was placed on high intensity statin and aspirin per radiology recommendation. Stroke was thought to likely be due to the paroxysmal A-fib for which she could not be anticoagulated due to the history of severe vaginal bleeding. Family stated that she was due to follow-up with [facility] oncologist in September for the hysterectomy to be scheduled. They were counseled that patient could be anticoagulated after the hysterectomy but anticoagulating her now increase the risk of vaginal bleeding. Patient did well with physical therapy and remained at her baseline. She was therefore discharged home on 08/21/2025. She was discharged on p.o. aspirin and high intensity statin and also discharged on metoprolol. Her carvedilol was discontinued as she was on metoprolol and carvedilol at the same time. She is to follow-up with her primary care doctor within 1 to 2 weeks and was also referred to neurology on outpatient basis to establish care for the stroke. Of note a new echo was not ordered as patient had just had an echo on 05/21/2025 which showed mild concentric left ventricular hypertrophy with EF of 65% And negative contrast study. Patient was seen and examined prior to discharge. She had no active complaints. She had an uneventful night. Review of systems otherwise negative. Labs and vitals reviewed. Medication reviewed on consult. Physical Exam Const alert and no apparent distress General Appearance: cooperative and comfortable HEENT normocephalic, head/scalp atraumatic, hearing grossly normal bilaterally and moist oral mucous membranes Eyes EOMs intact bilaterally and conjunctivae normal Neck full ROM and supple Lymph Lymphatic: no lymphedema noted Chest inspection of chest normal Resp Resp Narrative: mildly diminished breath sounds bibasally, no wheezes or crackles. On room air. Cardio regular rhythm, S1 normal heart sound, S2 normal heart sound, no murmurs and peripheral pulses 2+ throughout Cardio Narrative: tachycardia GI normal to inspection, nondistended, normoactive bowel sounds, soft to palpation, non-tender and non-distended Extremity normal capillary refill, no clubbing, cyanosis or edema and no calf tenderness Extremity Narrative: Right arm and leg chronic contractures noted. General Extremity: no tenderness to palpation of joints or extremities Skin General Skin Exam: no breakdown Neuro Neuro Narrative: Chronic right arm and leg contractures noted. No significant left-sided weakness noted. Motor Exam: general weakness Psych cooperative Mood & Affect: flat affect Weight / BMI Weight Weight: 160 lb 11.472 oz Body Mass Index (BMI) 26.7 ABG / Lab / Microbiology Data 08/21/25 05:41 08/21/25 05:41 Laboratory: Laboratory Results - last 24 hr 08/21/25 05:41: WBC 9.0, RBC 4.73, Hgb 10.4 L, Hct 35.8 L, MCV 75.7 L, MCH 22.0 L, MCHC 29.1 L, RDW Std Deviation 48.6 H, RDW Coeff of Federico 17.9 H, Plt Count 462 H, MPV 9.9, Immature Gran % (Auto) 0.300, Neut % (Auto) 75.7 H, Lymph % (Auto) 12.7 L, [place] % (Auto) 8.0, Eos % (Auto) 2.1, Baso % (Auto) 1.2 H, Absolute Neuts (auto) 6.8, Absolute Lymphs (auto) 1.15, Nucleated RBC % 0, Sodium 145, Potassium 3.9, Chloride 110 H, Carbon Dioxide 23.1, Anion Gap 12, BUN 23 H, C reatinine 1.49 H, Estim Creat Clear Calc 39.16 L, Est GFR (MDRD) Non-Af 39 L, BUN/Creatinine Ratio 15.2, Glucose 99, Calcium 8.2 Microbiology: Microbiology 08/19/25 14:22 Urine Catheter - Catheter Urine Culture - Preliminary Culture exhibits no growth. 08/19/25 14:10 Mucosa - Nose SARS-CoV-2, Influenza & RSV (PCR) - Final D/C Instructions Discharge Activity: Return to Normal Activity Weight Bearing Status: Weight bearing as tolerated Call your doctor if you observe: Fever of 101 or Higher, Shortness of breath, Dizziness, Swelling in the ankles, Chest pain and Increased palpitations (irregular heartbeat) DC O2, CPAP, BIPAP Needs Home O2 Discharge instructions: No DC home with Oxygen: No Meaningful Use Info Meaningful Use Meaningful Use Diagnoses (Choose all that apply): Ischemic CVA CVA Therapy Assessed for PT,OT and/or ST?: Yes Ischemic Stroke Antithrombotic order at d/c?: Yes Dx of Atrial fib/flutter?: Yes Anticoagulant at discharge?: No Reason anticoagulant not ordered: Medical Contraindication (severe anemia due to vaginal bleeding) Statins at discharge?: Yes If patient is 75 or younger, pt will be discharged on HIGH intensity statin.: Y es Primary Dx Acute Ischemic CVA?: Yes IV thrombolytic ordered during stay?: No Reason IV thrombolytic not ordered: Treatment not Indicated Discharge Plan Admission Admit Date/Time: 08/20/25 17:32 Primary Reason for Your Visit: acute CVA Attending Provider: Yanet Zhou Primary Care Provider: Ann Marie Duran Consulting Providers: Luis Burrell; Samia Christian; Manda Lopez; Suyapa Balderas; Lety Connell; uMsa Perez; Karol Armas; Fransisco Fernandes; Liban Larson; Romaine Medeiros; Vianey Rivas; Niru Lang; Rodrigo Araujo; Amy Roberts; Grayson Mcgarry; Diane Blood; King Silva; Amrit Fair; Fermin Carrillo; Ly Rios; oDreen Patel; Umang Luis Instructions Patient Instructions: AFib Preventing Stroke Discharge Orders/Prescriptions Prescriptions: New aspirin 81 mg Tablet,Chewable 81 mg PO BREAKFAST Qty: 30 2RF atorvastatin [Lipitor] 40 mg tablet 40 mg PO DAILY Qty: 30 2RF Continued amlodipine 10 mg tablet 10 mg PO DAILY hydralazine 100 mg tablet 100 mg PO TID metoprolol tartrate 25 mg tablet 25 mg PO Q8 Discontinued carvedilol 3.125 mg tablet 3.125 mg PO BID simvastatin 20 mg tablet 20 mg PO DAILY Referrals / Follow Up: Ann Marie Duran DO [Primary Care Provider, Family Practice] - Within 1 Week Adam Traylor MD [Non-Staff -Ordering Privileges, Neurology] - Within 2 Weeks Disposition Disposition (needs filled in before D/C Order can be placed): Home, Self Care Charges/Coding Visit Charges Inpatient E&M: 91486 Disch Hosp >30min
== END 2025-08-21 17:12 | disposition home or self-care (01) | DRG 45 ==
LOC: ED 16:50 → PCU 08-20 07:08
PROVIDERS: Admitting Provider Hospitalist; Emergency Provider Surgery; PCP Family Medicine; Visit Provider Student in an Organized Health Care Education/Training Program
DX: I63.89 Other cerebral infarction (principal); G93.41 Metabolic encephalopathy; J18.9 Pneumonia, unspecified organism; I47.29 Other ventricular tachycardia; I67.1 Cerebral aneurysm, nonruptured; R13.12 Dysphagia, oropharyngeal phase; I50.32 Chronic diastolic (congestive) heart failure; I13.0 Hypertensive heart and chronic kidney disease with heart failure and stage 1 through stage 4 chronic kidney disease, or unspecified chronic kidney disease; C54.1 Malignant neoplasm of endometrium; N18.32 Chronic kidney disease, stage 3b; I69.398 Other sequelae of cerebral infarction; D63.0 Anemia in neoplastic disease; I48.0 Paroxysmal atrial fibrillation; D75.839 Thrombocytosis, unspecified; M62.421 Contracture of muscle, right upper arm; M62.461 Contracture of muscle, right lower leg; E78.5 Hyperlipidemia, unspecified; R29.709 NIHSS score 9; N39.0 Urinary tract infection, site not specified; Z97.5 Presence of (intrauterine) contraceptive device; Z79.899 Other long term (current) drug therapy
CPT/HCPCS: 36415; 70450; 70496; 70498; 70551; 71046; 74230; 80048; 80053; 80061; 81001; 83036; 83605; 83735; 84145; 84484; 85025; 85027; 87086; 87631; 92526; 92611; 93005; 94762; 97163; 97166; 97802; 99285; Q9967; A4216